=== PATIENT | male | born 1950 | race Caucasian/White ===

== ENCOUNTER → 2017-07-01 17:20 | Outpatient (CLI) | payer MEDICARE, OTHER, SELFPAY ==
--- NOTE | 2017-07-01 15:45 | BLA_PTH ---
PATIENT: VENKATA LEAL LOC: [facility] U#:[id number] AGE/SX: 74/M ROOM: RE07/01/[address]: Dr. Danny Olson MD : 1950 BED: DIS: SPEC #: [id number] RECD: 07/01/17 17:21 STATUS: CORI TONEY #: [id number] LOLA: 07/01/17 15:[address]: Danny Olson DEPT: SURGICAL PATHOLOGY RECD BY: Janelle Ocampo ENTERED: 07/02/17 08:55 SP TYPE: BLADDER BX OTHR DR: Dr. Nenita Yarbrough MD Tissues: Urinary bladder, NOS Procedures: Surgery Specimen Level IV HEADER OPERATION: Bladder biopsy PRE-OP DIAGNOSIS: C67.4, R31.0 TISSUE SUBMITTED: Bladder biopsy MICROSCOPIC DIAGNOSIS Bladder, biopsy: Papillary urothelial (transitional cell) carcinoma with the following characteristics: Histologic grade, urothelial carcinoma ([id number]/ISUP) ? low grade 1/3 Lamina propria invasion ? not identified Lymph-vascular invasion ? not identified Detrusor muscle invasion ? detrusor muscle is not present in the submitted specimen. BRITTNI:[email or web address] 07/03/17 COMMENT Please make reference to previous specimen ([id number]) bladder tumor, TUR with diagnosis of papillary urothelial carcinoma. MICROSCOPIC DESCRIPTION Slides are reviewed. GROSS DESCRIPTION Received is one container labeled with the patient's name and not further designated. The specimen consists of one irregular fragment of hagan soft tissue that measures 0.2 x 0.1 x 0.1 cm. The specimen is totally submitted in one cassette. / BRITTNI:[email or web address] 07/02/17 TC:0 CPT: 76240
== END ==
PROVIDERS: Family Provider Internal Medicine; PCP Internal Medicine; Visit Provider Urology
DX: C67.4 Malignant neoplasm of posterior wall of bladder (principal); R31.0 Gross hematuria
CPT/HCPCS: 88305

== ENCOUNTER 2018-05-06 07:41 | Day surgery (SDC) | payer MEDICARE, OTHER, SELFPAY ==
[2018-04-29 10:47] VITALS: BP 109/66; PULSE 85; RESP 16; TEMP 36.6; O2SAT 95; BMI 32.1
--- NOTE | 2018-05-05 16:05 | PCM.HP.BLA ---
History and Physical Date of Admission: 05/06/18 Patient returns, 68-year-old male history of bladder cancer status post resection and also had fulguration in the office and TURBT. Also has a history of BPH with obstruction currently taking Flomax and Proscar. Denies any gross hematuria. Does have frequent urination nocturia. Comes in today for a Cysto. ALLERGIES: Novacaine Statins MEDICATIONS: Flomax 0.4 mg capsule Proscar Amlodipine Besilate Bentyl Clopidogrel Creon Crestor Cymbalta Famotidine Furosemide Levothyroxine Sodium Lomotil Metoprolol Succinate Neurontin [place] Novolog Pentasa SPIROLOACTONE Vitamin B-12 Vitamin D3 [place] PSH: Cysto Fulgurate < .05 cm - 07/01/2017 Cystoscopy - 01/13/2018, 10/06/2017, 06/17/2017, 03/18/2017 Cystoscopy TURBT 2-5 cm - 11/20/2016 PSH Notes: Removal of the Colon to the Ileum ESOPHAGEAL BANDING NON- PSH: Appendectomy Colon Resection Colonoscopy Patient documented to have received pneumococcal vaccination Pneumococcal Vaccine Admin PTCA Tonsillectomy PMH: Malignant neoplasm of posterior wall of bladder (Stable) - 06/17/2017, - 12/09/2016 Gross hematuria - 10/28/2016 Benign prostatic hyperplasia with lower urinary tract symptoms Frequency of micturition Hematuria, unspecified Nocturia Poor urinary stream Retention of urine, unspecified Spermatocele of epididymis, unspecified NON- PMH: Essential (primary) hypertension Heart disease, unspecified Hyperlipidemia, unspecified Hypothyroidism, unspecified Incisional hernia without obstruction or gangrene Malignant carcinoid tumor of unspecified site Oth diabetes mellitus with diabetic neuropathy, unspecified Other irritable bowel syndrome Other specified sepsis Peripheral vascular disease, unspecified Spinal stenosis, site unspecified Type 2 diabetes mellitus without complications Vitamin B12 deficiency anemia, unspecified Vitamin D deficiency, unspecified Immunizations: None FAMILY HISTORY: Cancer - Runs in Family Diabetes - Runs in Family Heart Disease - Runs in Family SOCIAL HISTORY: Marital Status: Preferred Language: Amharic; Ethnicity: Not Or ; Race: White Current Smoking Status: Patient does not smoke anymore. Tobacco Use Assessment Completed: Used Smokeless in last 30 days? Smoking cessation counseling was provided. Does not use smokeless tobacco. Has never drank. Does not use drugs. Drinks 3 caffeinated drinks per day. Has not had a blood transfusion. REVIEW OF SYSTEMS: Constitutional: Patient denies fever, chills, weight loss, and weight gain. Genitourinary: Patient denies frequent urination, urinary retention, get up at night to void, leakage of urine, painful urination, blood in the urine, frequent uti's, history of stones, difficulty starting stream, weak stream/scanty, and bedwetting. VITAL SIGNS: 04/13/2018 11:18 AM Weight 220 lb / 99.79 kg Height 70 in / 177.8 cm BP 138/70 mmHg BMI 31.6 kg/m? - BMI Counseling was provided. PHYSICAL EXAMINATION: Testes: No tenderness, no swelling, no enlargement left testes. No tenderness, no swelling, no enlargement right testes. Normal location left testes. Normal location right testes. No mass, no cyst, no varicocele, no hydrocele left testes. No mass, no cyst, no varicocele, no hydrocele right testes. Urethral Meatus: Normal size. No lesion, no wart, no discharge, no polyp. Normal location. Penis: Circumcised, no warts, no cracks. No dorsal Peyronie's plaques, no left corporal Peyronie's plaques, no right corporal Peyronie's plaques, no scarring, no warts. No balanitis, no meatal stenosis. MULTI-SYSTEM PHYSICAL EXAMINATION: Constitutional: Well-nourished. No physical deformities. Normally developed. Good grooming. Neck: Neck symmetrical, not swollen. Normal tracheal position. Respiratory: No labored breathing, no use of accessory muscles. Cardiovascular: Normal temperature, normal extremity pulses, no swelling, no varicosities. Lymphatic: No enlargement of neck, axillae, groin. Skin: No paleness, no jaundice, no cyanosis. No lesion, no ulcer, no rash. Neurologic / Psychiatric: Oriented to time, oriented to place, oriented to person. No depression, no anxiety, no agitation. Gastrointestinal: No mass, no tenderness, no rigidity, non obese abdomen. Eyes: Normal conjunctivae. Normal eyelids. Ears, Nose, Mouth, and Throat: Left ear no scars, no lesions, no masses. Right ear no scars, no lesions, no masses. Nose no scars, no lesions, no masses. Normal hearing. Normal lips. Musculoskeletal: Normal gait and station of head and neck. PAST DATA REVIEWED: Source Of History: Patient Records Review: Previous Patient Records Urine Test Review: Urinalysis 10/04/14 04/01/11 06/02/09 PSA Total PSA 1.21 1.47 1.9 PROCEDURES: Flexible Cystoscopy - 51381 Risks, benefits, and some of the potential complications of the procedure were discussed at length with the patient including infection, bleeding, voiding discomfort, urinary retention, fever, chills, sepsis, and others. All questions were answered. Informed consent was obtained. Antibiotic prophylaxis was given. Sterile technique and intraurethral analgesia were used. Meatus: Normal size. Normal location. Normal condition. Urethra: No strictures. External Sphincter: Normal. Verumontanum: Normal. Prostate: Borderline obstructing. Moderate hyperplasia. Bladder Neck: Non-obstructing. Ureteral Orifices: Normal location. Normal size. Normal shape. Effluxed clear urine. Bladder: A few posterior wall tumors. Multifocal tumors. No trabeculation. Normal mucosa. No stones. Urinalysis - 23029 Dipstick Dipstick Cont'd Specimen: Voided Blood: Neg Appearance: Clear pH: 5.0 Color: Yellow Protein: Neg Glucose: Normal Urobilinogen: Neg Bilirubin: Neg Nitrites: Neg Ketones: Neg Leukocyte Esterase: Neg ASSESSMENT: ICD-10 Details 1 : Malignant neoplasm of posterior wall of bladder - C67.4 Stable PLAN: Document Letter(s): Created for Patient: Clinical Summary Notes: Has recurrence of bladder tumors plan to proceed with TURBT and mitomycin C at [facility].
[2018-05-06] VITALS (7 sets, daily range): BP systolic 95–116; BP diastolic 63–85; PULSE 60–66; RESP 16–18; TEMP 36.1–36.9; O2SAT 88–99; BMI 32.1
[2018-05-06 08:19] LABS: Potassium 3.9 mmol/L (3.5-5.1)
[2018-05-06 08:21] LABS: Bedside Glucose 150 mg/dL (70-110)
[2018-05-06] MEDS: Cefazolin 2 GM in 0.9% Normal Saline 100 ML IV (09:39)
--- NOTE | 2018-05-06 09:48 | DCINST_ITS ---
Discharge Diet: Light diet - advance as tolerated Discharge Activity: Return to Normal Activity Call your doctor if your incision/area has: Sudden Increased Bleeding Call your doctor if you observe: Fever of 101 or Higher, Uncontrolled pain Suture Line Care: Avoid Pulling/Pushing, Avoid Pinching/Bending Instructions: Treating Bladder Cancer: TUR (Transurethral Resection) Allergies/Adverse Reactions: Allergies procaine HCl [From Novocain] Allergy (Verified 04/29/18 10:16) Other Ktrqgsn-Eij-Wyt Reductase Inhibitor Allergy (Verified 04/29/18 10:16) Other Medications to take at Discharge Amlodipine [Norvasc] 5 mg PO DAILY 08/22/16 Dicyclomine HCl [Bentyl] 10 mg PO ACHS 08/22/16 Diphenoxylate HCl/Atropine [Lomotil 2.5-0.025 mg Tablet] 1 each PO Q6H PRN 08/22/16 Duloxetine HCl 20 mg PO QHS 08/22/16 Finasteride [Proscar] 5 mg PO DAILY 08/22/16 Furosemide [Lasix] 60 mg PO DAILY 08/22/16 Gabapentin [Neurontin] 600 mg PO QHS 08/22/16 Insulin Aspart Protam & Aspart [Novolog Mix 70-30 Vial] 25 unit SQ DINNER 08/22/16 Levothyroxine [Synthroid] 137 mcg PO DAILY 08/22/16 Lipase/Protease/Amylase [Creon Dr 24,000 Units Capsule] 3 cap PO TIDCM 08/22/16 Mesalamine [Pentasa] 1,000 mg PO 4X/DAY 08/22/16 Metoprolol Tartrate [Lopressor] 50 mg PO BID 08/22/16 Tamsulosin HCl [Flomax] 0.4 mg PO BID 08/22/16 Cholecalciferol (Vitamin D3) [Vitamin D] 50,000 unit PO TUTH 10/25/16 Clopidogrel Bisulfate [Clopidogrel] 75 mg PO DAILY 10/25/16 Colesevelam Hydrochloride [Welchol] 1,875 mg PO DAILY 10/25/16 Cyanocobalamin (Vitamin B-12) [B-12] 1,000 mcg SL DAILY 10/25/16 Rosuvastatin Calcium [Crestor] 5 mg PO TUTH 10/25/16 Cyanocobalamin [Vitamin B12] 100 mcg IM Q30D 11/19/16 Octreotide Acetate,Mi-Spheres [Sandostatin [place]] 10 mg IM QMONTH 11/19/16 Insulin Aspart Protam & Aspart [Novolog Mix 70-30 Vial] 35 unit SQ BREAKFAST 04/29/18 Melatonin 10 mg SL QHS 04/29/18 Oxycodone [Oxyir] 5 mg PO BID PRN 04/29/18 Pantoprazole Sodium [Protonix] 20 mg PO DAILY 04/29/18 Sertraline HCl [Zoloft] 50 mg PO DAILY 04/29/18 Spironolactone [Aldactone] 25 mg PO BID 04/29/18 Acetaminophen [Tylenol Extra Strength] 500 mg PO Q4H PRN PRN #20 tablet 05/06/18 Ciprofloxacin [Cipro] 500 mg PO BID #6 tablet 05/06/18 Phenazopyridine HCl [Pyridium] 100 mg PO TID PRN PRN #14 tablet 05/06/18 The following prescriptions were given: Acetaminophen [Tylenol Extra Strength] 500 mg PO Q4H PRN PRN #20 tablet PRN Reason: Pain Phenazopyridine HCl [Pyridium] 100 mg PO TID PRN PRN #14 tablet PRN Reason: bladder pain Ciprofloxacin [Cipro] 500 mg PO BID #6 tablet Orders to be completed after discharge: Thyroid Stim Hormone (TSH) Time Frame: 04/30/18, Location: Laboratory Primary Care Physician: Analisa Nogueira MD [Primary Care Provider] - Test Results: Test results from this visit will be discussed in further detail at your follow- up appointment, if applicable. Please Follow Up With: Danny Olson MD When: in 2 weeks, please call to make an appointment.
--- NOTE | 2018-05-06 10:20 | OP.PCM_ITS ---
Report of Operation Date of Procedure: 05/06/18 Pre-Operative Diagnosis: Multiple papillary bladder tumors throughout the right side of the right bladder the posterior bladder the left side of the bladder some in the trigone Post-Operative Diagnosis: Same Surgery/Procedure Performed:: Transurethral resection of multiple bladder tumors throughout the bladder large resection. Description of Surgical Findings:: 68-year-old male has a history of recurrent bladder cancer comes back to the office did a cystoscopy had multiple tumors throughout the bladder these were official superficial tumor not deep tumors but they were in the right lateral wall posterior wall and left lateral wall the bladder some towards the trigone. 68-year-old male taken back to the operating room after smooth induction of general anesthesia he was placed in dorsolithotomy position when of the bladder with a 24 [place] noncontinuous flow Olympus resectoscope identified all the tumors as mentioned above in the note and then I proceeded with cauterization and resection of all these tumors take about 30 minutes to resect all the tumor urine to cauterize it completely I then switched over to a 70 degree lens that is cystoscopy a 70 degree lens look to the entire bladder could not see any more visible tumors after cauterization was completed then I placed the catheter in the bladder drained the bladder the urine was clear and then I placed 40 cc of 40 mg of mitomycin-C into the bladder for post chemo dose instillation. Patient anesthetic was reversed to take back to PACU good condition. Type of Anesthesia:: General Drains: none - Admit VTE Documentation VTE Present on Admission: No VTE Mechan Device Prophylaxis: SCD's
[2018-05-06 10:51] LABS: Bedside Glucose 149 mg/dL (70-110)
== END 2018-05-06 12:13 | disposition home or self-care (01) ==
LOC: SDC 07:42 → AC 07:42
PROVIDERS: Family Provider Internal Medicine; PCP Internal Medicine; Referring Provider Urology; Visit Provider Urology
PROC: 0TBB8ZZ Excision of Bladder, Via Natural or Artificial Opening Endoscopic (ICD-10-PCS; CPT 52240; principal; 2018-05-06 09:40)
DX: C67.4 Malignant neoplasm of posterior wall of bladder (principal); N40.1 Benign prostatic hyperplasia with lower urinary tract symptoms; N13.8 Other obstructive and reflux uropathy; E78.5 Hyperlipidemia, unspecified; E03.9 Hypothyroidism, unspecified; E13.40 Other specified diabetes mellitus with diabetic neuropathy, unspecified; I73.9 Peripheral vascular disease, unspecified; K58.8 Other irritable bowel syndrome; E53.8 Deficiency of other specified B group vitamins; E55.9 Vitamin D deficiency, unspecified; K21.9 Gastro-esophageal reflux disease without esophagitis; D64.9 Anemia, unspecified; I13.10 Hypertensive heart and chronic kidney disease without heart failure, with stage 1 through stage 4 chronic kidney disease, or unspecified chronic kidney disease; E13.22 Other specified diabetes mellitus with diabetic chronic kidney disease; N18.3 Chronic kidney disease, stage 3 (moderate); F32.9 Major depressive disorder, single episode, unspecified; G47.33 Obstructive sleep apnea (adult) (pediatric); Z95.5 Presence of coronary angioplasty implant and graft; Z87.891 Personal history of nicotine dependence; Z79.4 Long term (current) use of insulin; Z79.899 Other long term (current) drug therapy
CPT/HCPCS: 52240; 52287; 36415; 82962; 84132; J7120; J2405; J3490; J9280

== ENCOUNTER → 2018-07-17 | Outpatient (CLI) | payer MEDICARE, OTHER, SELFPAY ==
[2018-05-06 08:04] VITALS: BMI 32.1
== END | disposition home or self-care (01) ==
LOC: SL 20:23
PROVIDERS: Family Provider Internal Medicine; PCP Internal Medicine
DX: G47.31 Primary central sleep apnea (principal); G47.33 Obstructive sleep apnea (adult) (pediatric); G47.34 Idiopathic sleep related nonobstructive alveolar hypoventilation
CPT/HCPCS: 95811

== ENCOUNTER → 2018-09-03 | Outpatient (CLI) | payer MEDICARE, OTHER, SELFPAY ==
[2018-05-06 08:04] VITALS: BMI 32.1
--- NOTE | 2018-09-03 | CYSPIN_PTH ---
PATIENT: VENKATA LEAL LOC: [facility] U#:[id number] AGE/SX: 68/M ROOM: RE09/03/[address]: Dr. Danny Olson MD : 1950 BED: DIS: 09/03/2018 SPEC #: [id number] RECD: 09/04/18 07:57 STATUS: CORI RESteve #: [id number] LOLA: 09/03/18 00:[address]: Danny Olson DEPT: CYTOLOGY RECD BY: Bakari Marcos ENTERED: 09/04/18 07:57 SP TYPE: CYSPIN FL OTHR DR: Dr. Analisa Nogueira MD Tissues: Urine Procedures: Pap Stain (control) Special Stain Group II Cytospin Fluid HEADER OPERATION: Not noted PRE-OP DIAGNOSIS: Bladder CA TISSUE SUBMITTED: Urine for cytology DIAGNOSIS CYTOLOGY Urine for cytology (cytospin): Rare atypical urothelial cells present. See comment. AM:[email or web address] 09/04/18 COMMENT The findings are nonspecific and could represent a variety of conditions including infection, urolithiasis, instrumentation and low grade urothelial neoplasm. Clinical correlation is necessary. Case has been reviewed in consultation with Dr. Webster who concurs with the above diagnosis. IDC:SJ CYTOLOGY STUDY Slides are reviewed. CYTOLOGY GROSS Received is 60 ml of yellow cloudy fluid labeled with the patient's name and and designated per the requisition as urine. Submitted for cytology preparation. 09/03/18 TC:? CPT: 59371
[2018-09-03 17:35] LABS: Cytology, Body Fluid / CSF SEE PATHOLOGY REPORT
== END | disposition home or self-care (01) ==
LOC: LABSPEC 17:19
PROVIDERS: Family Provider Internal Medicine; PCP Internal Medicine; Referring Provider Urology; Visit Provider Urology
DX: C67.9 Malignant neoplasm of bladder, unspecified (principal)
CPT/HCPCS: 88108; 88313

== ENCOUNTER 2018-12-11 16:02 | Outpatient (RCR) | payer MEDICARE, OTHER, SELFPAY ==
[2018-05-06 08:04] VITALS: BMI 32.1
[2018-12-11 16:22] LABS: Hematocrit 32.3 % (40-54); Hemoglobin 10.7 g/dL (13.0-16.5); Mean Corp Hgb Conc 33.1 g/dL (32-36); Mean Corpuscular Hgb 32.3 pg (27.0-32.0); Mean Corpuscular Volume 97.6 fL (80-94); Mean Platelet Vol. 12.1 fl (6.2-12.0); Platelet Count 181 K/mm3 (150-450); RBC Distribution Width CV 14.9 % (11.6-14.6); RBC Distribution Width SD 53.4 fl (35.1-43.9); Red Blood Count 3.31 M/mm3 (4.6-6.2); White Blood Count 5.3 K/mm3 (4.4-11.0)
[2018-12-11 16:44] LABS: Anion Gap 6 (5-15); BUN 35 mg/dL (7-18); Calcium,Total 9.6 mg/dL (8.5-10.1); Chloride 101 mmol/L (98-107); Creatinine, Serum 3.17 mg/dL (0.70-1.30); EST Glomerular Filtration Rate 21 mL/min (>60); Est Glom Filt Rate - Afr Amer 25 mL/min (>60); Glucose 170 mg/dL (74-106); Potassium 5.2 mmol/L (3.5-5.1); Sodium Level 135 mmol/L (136-145)
== END 2018-12-17 23:59 ==
LOC: HHLAB 16:02
PROVIDERS: Family Provider Internal Medicine; PCP Internal Medicine; Referring Provider Internal Medicine; Visit Provider Internal Medicine
DX: E11.9 Type 2 diabetes mellitus without complications (principal); K50.90 Crohn's disease, unspecified, without complications
CPT/HCPCS: 80048; 85027

== ENCOUNTER → 2019-03-04 20:08 | Outpatient (CLI) | payer MEDICARE, OTHER, SELFPAY ==
[2018-05-06 08:04] VITALS: BMI 32.1
== END ==
PROVIDERS: Family Provider Internal Medicine; PCP Internal Medicine
DX: G47.31 Primary central sleep apnea (principal); G47.33 Obstructive sleep apnea (adult) (pediatric); G47.34 Idiopathic sleep related nonobstructive alveolar hypoventilation
CPT/HCPCS: 95811

== ENCOUNTER → 2019-08-03 15:15 | Outpatient (CLI) | payer MEDICARE, OTHER, SELFPAY ==
[2018-05-06 08:04] VITALS: BMI 32.1
--- NOTE | 2019-08-03 15:15 | CYSPIN_PTH ---
PATIENT: VENKATA LEAL LOC: [facility] U#:[id number] AGE/SX: 74/M ROOM: RE08/03/[address]: Dr. Danny Olson MD : 1950 BED: DIS: SPEC #: [id number] RECD: 08/04/19 08:58 STATUS: CORI RESteve #: [id number] LOLA: 08/03/19 15:[address]: Danny Olson DEPT: CYTOLOGY RECD BY: Hugh Carreon ENTERED: 08/04/19 08:58 SP TYPE: CYSPIN FL OTHR DR: Dr. Analisa Nogueira MD Tissues: Urine Procedures: Pap Stain (control) Special Stain Group II Cytospin Fluid HEADER OPERATION: Not noted PRE-OP DIAGNOSIS: Malignant neoplasm of posterior wall of bladder TISSUE SUBMITTED: Urine for cytology DIAGNOSIS CYTOLOGY Urine for cytology (cytospin): Rare atypical urothelial cells noted. SJ:[email or web address] 08/05/19 COMMENT Please make reference to previous specimens ([id number]) bladder tumor, TUR with diagnosis of papillary urothelial carcinoma and ([id number]) bladder, biopsy with diagnosis of papillary urothelial carcinoma and ([id number]) urine for cytology with diagnosis of rare atypical urothelial cells present. CYTOLOGY STUDY Slides are reviewed. CYTOLOGY GROSS Received is 80 ml of gold cloudy fluid labeled with the patient's name and and designated per the requisition as urine. Submitted for cytology preparation. / magdiel 08/04/19 TC: CPT: 58057
[2019-08-03 17:12] LABS: Cytology, Body Fluid / CSF SEE PATHOLOGY REPORT
--- OUTSIDE RECORDS SUMMARY | 2019-12-05 14:57 | XMS RPT_ITS | CCD ---
:1950 External Reference #:[id number] Author Organization [facility] Care Team Providers Name Role Phone Mirlande Primary Care Provider Loyd Olson Unavailable Vekstein Unavailable LAURENT, E Unavailable Unavailable LAURENT, E Unavailable Unavailable LAURENT, E Unavailable Unavailable TALAMPAS, D Unavailable Unavailable HENLEY Unavailable Unavailable LAURENT Unavailable Unavailable LAURENT Unavailable Unavailable TALAMPAS Unavailable Unavailable LAURENT Unavailable Unavailable TALAMPAS Unavailable Unavailable TALAMPAS Unavailable Unavailable LAURENT Unavailable Unavailable LAURENT Unavailable Unavailable TALAMPAS Unavailable Unavailable Allergies Reported Allergen Reaction(s) Severity Date of Onset Location atorvastatin Intolerance High, Unknown 01-31-2005 - [facility] Translations: [ Center (0000 0) ATORVASTATIN CALCIUM, ATORVASTATIN CALCIUM] fluvastatin Intolerance 09-09-2007 - [facility] Translations: [ Center (0000 0) FLUVASTATIN SODIUM, FLUVASTATIN SODIUM] novacain [Other] Intolerance Moderate 01-31-2005 - [facility] linic ([id number]) Simvastatin Intolerance High, Unknown 01-31-2005 - [facility] Translations: [ Center (0000 0) SIMVASTATIN, SIMVASTATIN] OTHER Translations: [ AOF Unknown 01-31-2005 - [facility] OTHER, OTHER] Other [facility] Medications Medication Name Sig Date Prescriber Location Acetaminophen acetaminophen 11-30-2018 Natasha Crandall) [facility] (TYLENOL) 325 mg (90466) tablet Take 2 tablets by mouth every 6 hours as needed for Pain. 0 11/30/2018 Active Comment: Take 2 tablets by mouth ever y 6 hours as needed for Pain. amLODIPine amLODIPine (NORVASC) 5 mg 05-21-2019 Analisa Weeks [facility] tablet Indications: (33317) Essential hypertension Take 1 tablet by mouth once daily. 90 tablet 3 05/21/2019 Active Comment: Take 1 tablet by mouth once daily. Amylases / hvghth-vtpfpzrt-dkhufid 03-26-2019 Serafin mares Endopeptidases / (CREON 24) 24,000-76,000 [facility] ([id number]) Lipase -120,000 unit cpDR Take 2 capsules by mouth twice daily with meals. 360 capsule 3 03/26/2019 Active Comment: Take 2 capsules by mouth twi ce daily with meals. Atropine / diphenoxylate-atropine 10-18-2019 - [facility] Diphenoxylate (LOMOTIL) 2.5-0.025 mg per 01-23-2020 [facility] (25963) tablet Indications: Crohn's disease of small intestine with intestinal obstruction (HCC) Take 1-2 tablets before meals and at bedtime as needed for diarrhea not to exceed 8 tablets daily 240 tablet 1 10/18/2019 01/23/2020 Active diphenoxylate-atropine (LOMOTIL) 06-24-2019 Natasha chang ([place]) [facility] 2.5-0.025 mg per tablet (89141) Indications: Crohn's disease of small intestine with intestinal obstruction (HCC) Take 1-2 tablets before meals and at bedtime as needed for diarrhea not to exceed 8 tablets daily 240 tablet 1 06/24/2019 Active Comment: Take 1-2 tablets before meal s and at bedtime as needed for diarrhea not to exceed 8 tablets daily BIPAP BIPAP OK to discontinue 11-17-2019 Sadaf ([facility]) [facility] Overnight oxygen. PAP [place] ([id number] ) titration and overnight pulse oximetry do not show need for nocturnal oxygen at this time. 1 Device 0 11/17/2019 Active BIPAP OK to discontinue 11-17-2019 Sadaf ([facility]) [facility] Overnight oxygen. PAP [place] ([id number]) titration and overnight pulse oximetry do not show need for nocturnal oxygen at this time. 1 Device 0 11/17/2019 Active BIPAP OK to discontinue 11-17-2019 Sadaf ([facility]) [facility] Overnight oxygen. PAP [place] ([id number]) titration and overnight pulse oximetry do not show need for nocturnal oxygen at this time. 1 Device 0 11/17/2019 Active BIPAP OK to discontinue 11-17-2019 Sadaf ([employer]) [facility] Overnight oxygen. PAP [place] ([id number]) titration and overnight pulse oximetry do not show need for nocturnal oxygen at this time. 1 Device 0 11/17/2019 Active BIPAP OK to discontinue 11-17-2019 Sadaf ([employer]) [facility] Overnight oxygen. PAP [place] ([id number]) titration and overnight pulse oximetry do not show need for nocturnal oxygen at this time. 1 Device 0 11/17/2019 Active BIPAP OK to discontinue 11-17-2019 Sadaf ([employer]) [facility] Overnight oxygen. PAP [place] ([id number]) titration and overnight pulse oximetry do not show need for nocturnal oxygen at this time. 1 Device 0 11/17/2019 Active BIPAP OK to discontinue 11-02-2019 - Sadaf ([employer]) [facility] Overnight oxygen. PAP 11-17-2019 [place] ([id number]) titration and overnight pulse oximetry do not show need for nocturnal oxygen at this time. 1 Device 0 11/02/2019 11/17/2019 Discontinued BIPAP OK to discontinue 11-02-2019 [facility] ([employer]) [facility] Overnight oxygen. PAP [place] ([id number]) titration and overnight pulse oximetry do not show need for nocturnal oxygen at this time. 1 Device 0 11/02/2019 Active BIPAP OK to discontinue 11-02-2019 Sadaf ([employer]) [facility] Overnight oxygen. PAP [place] ([id number]) titration and overnight pulse oximetry do not show need for nocturnal oxygen at this time. 1 Device 0 11/02/2019 Active BIPAP OK to discontinue 11-02-2019 Sad[facility] ([employer]) [facility] Overnight oxygen. PAP [place] ([id number]) titration and overnight pulse oximetry do not show need for nocturnal oxygen at this time. 1 Device 0 11/02/2019 Active BIPAP OK to discontinue 11-02-2019 Sad[facility] ([employer]) [facility] Overnight oxygen. PAP [place] ([id number]) titration and overnight pulse oximetry do not show need for nocturnal oxygen at this time. 1 Device 0 11/02/2019 Active BIPAP Indications: ALEXIS 10-12-2019 Sadaf ([employer]) [facility] (obstructive sleep apnea) [place] ([id number] ) , Nocturnal oxygen desaturation Please dispense an overnight pulse oximetry to be done 2 consecutive nights while on BiPAP without oxygen. 1 Device 0 10/12/2019 Active BIPAP Indications: ALEXIS 10-12-2019 Sadaf ([employer]) [facility] (obstructive sleep apnea) [place] ([id number] ) , Nocturnal oxygen desaturation Please dispense an overnight pulse oximetry to be done 2 consecutive nights while on BiPAP without oxygen. 1 Device 0 10/12/2019 Active BIPAP Indications: ALEXIS 10-12-2019 Sad[facility] ([employer]) [facility] (obstructive sleep apnea) [place] ([id number] ) , Nocturnal oxygen desaturation Please dispense an overnight pulse oximetry to be done 2 consecutive nights while on BiPAP without oxygen. 1 Device 0 10/12/2019 Active BIPAP Indications: ALEXIS 10-12-2019 Sadaf ([employer]) [facility] (obstructive sleep apnea) [place] ([id number] ) , Nocturnal oxygen desaturation Please dispense an overnight pulse oximetry to be done 2 consecutive nights while on BiPAP without oxygen. 1 Device 0 10/12/2019 Active BIPAP Indications: ALEXIS 10-12-2019 Sadaf ([employer]) [facility] (obstructive sleep apnea) [place] ([id number] ) , Nocturnal oxygen desaturation Please dispense an overnight pulse oximetry to be done 2 consecutive nights while on BiPAP without oxygen. 1 Device 0 10/12/2019 Active BIPAP Indications: ALEXIS 10-12-2019 Sadaf ([employer]) [facility] (obstructive sleep apnea) [place] ([id number] ) , Nocturnal oxygen desaturation Please dispense an overnight pulse oximetry to be done 2 consecutive nights while on BiPAP without oxygen. 1 Device 0 10/12/2019 Active BIPAP Indications: ALEXIS 10-12-2019 Sadaf ([employer]) [facility] (obstructive sleep apnea) [place] ([id number] ) , Nocturnal oxygen desaturation Please dispense an overnight pulse oximetry to be done 2 consecutive nights while on BiPAP without oxygen. 1 Device 0 10/12/2019 Active BIPAP Indications: ALEXIS 10-12-2019 Sadaf ([employer]) [facility] (obstructive sleep apnea) [place] ([id number] ) , Nocturnal oxygen desaturation Please dispense an overnight pulse oximetry to be done 2 consecutive nights while on BiPAP without oxygen. 1 Device 0 10/12/2019 Active BIPAP Indications: ALEXIS 10-12-2019 [facility] ([facility]) [facility] (obstructive sleep apnea) [place] ([id number] ) , Nocturnal oxygen desaturation Please dispense an overnight pulse oximetry to be done 2 consecutive nights while on BiPAP without oxygen. 1 Device 0 10/12/2019 Active BIPAP Settings Increase 09-07-2019 [facility] ([facility]) [facility] IPAP 21, EPAP 16, and BUR [place] ([id number] ) 10 cm H2O, suitable mask per pt preference, chin strap, head gear, humidity, tubing, lifetime supplies. G47.33 ALEXIS 1 Device 0 09/07/2019 Active BIPAP Settings Increase 09-07-2019 [facility] ([facility]) [facility] IPAP 21, EPAP 16, and BUR [place] ([id number] ) 10 cm H2O, suitable mask per pt preference, chin strap, head gear, humidity, tubing, lifetime supplies. G47.33 ALEXIS 1 Device 0 09/07/2019 Active BIPAP Settings Increase 09-07-2019 [facility] ([facility]) [facility] IPAP 21, EPAP 16, and BUR [place] ([id number] ) 10 cm H2O, suitable mask per pt preference, chin strap, head gear, humidity, tubing, lifetime supplies. G47.33 ALEXIS 1 Device 0 09/07/2019 Active BIPAP Settings Increase 09-07-2019 Sad[facility] ([facility]) [facility] IPAP 21, EPAP 16, and BUR [place] ([id number] ) 10 cm H2O, suitable mask per pt preference, chin strap, head gear, humidity, tubing, lifetime supplies. G47.33 ALEXIS 1 Device 0 09/07/2019 Active BIPAP Settings Increase 09-07-2019 Sadaf ([facility]) [facility] IPAP 21, EPAP 16, and BUR [place] ([id number] ) 10 cm H2O, suitable mask per pt preference, chin strap, head gear, humidity, tubing, lifetime supplies. G47.33 ALEXIS 1 Device 0 09/07/2019 Active BIPAP Settings Increase 09-07-2019 [facility] ([facility]) [facility] IPAP 21, EPAP 16, and BUR [place] ([id number] ) 10 cm H2O, suitable mask per pt preference, chin strap, head gear, humidity, tubing, lifetime supplies. G47.33 ALEXIS 1 Device 0 09/07/2019 Active BIPAP Settings Increase 09-07-2019 Sad[facility] ([employer]) [facility] IPAP 21, EPAP 16, and BUR [place] ([id number] ) 10 cm H2O, suitable mask per pt preference, chin strap, head gear, humidity, tubing, lifetime supplies. G47.33 ALEXIS 1 Device 0 09/07/2019 Active BIPAP Settings Increase 09-07-2019 Sad[facility] ([employer]) [facility] IPAP 21, EPAP 16, and BUR [place] ([id number] ) 10 cm H2O, suitable mask per pt preference, chin strap, head gear, humidity, tubing, lifetime supplies. G47.33 ALEXIS 1 Device 0 09/07/2019 Active BIPAP Settings Increase 09-07-2019 [facility] ([employer]) [facility] IPAP 21, EPAP 16, and BUR [place] ([id number] ) 10 cm H2O, suitable mask per pt preference, chin strap, head gear, humidity, tubing, lifetime supplies. G47.33 ALEXIS 1 Device 0 09/07/2019 Active BIPAP Settings Increase 09-07-2019 [facility] ([employer]) [facility] IPAP 21, EPAP 16, and BUR [place] ([id number] ) 10 cm H2O, suitable mask per pt preference, chin strap, head gear, humidity, tubing, lifetime supplies. G47.33 ALEXIS 1 Device 0 09/07/2019 Active BIPAP Settings Increase 09-07-2019 [facility] ([employer]) [facility] IPAP 21, EPAP 16, and BUR [place] ([id number] ) 10 cm H2O, suitable mask per pt preference, chin strap, head gear, humidity, tubing, lifetime supplies. G47.33 ALEXIS 1 Device 0 09/07/2019 Active BIPAP Settings Increase 09-07-2019 [facility] ([employer]) [facility] IPAP 21, EPAP 16, and BUR [place] ([id number] ) 10 cm H2O, suitable mask per pt preference, chin strap, head gear, humidity, tubing, lifetime supplies. G47.33 ALEXIS 1 Device 0 09/07/2019 Active BIPAP Settings Increase 09-07-2019 [facility] ([employer]) [facility] IPAP 21, EPAP 16, and BUR [place] ([id number] ) 10 cm H2O, suitable mask per pt preference, chin strap, head gear, humidity, tubing, lifetime supplies. G47.33 ALEXIS 1 Device 0 09/07/2019 Active BIPAP Settings Increase 09-07-2019 [facility] ([employer]) [facility] IPAP 21, EPAP 16, and BUR [place] ([id number] ) 10 cm H2O, suitable mask per pt preference, chin strap, head gear, humidity, tubing, lifetime supplies. G47.33 ALEXIS 1 Device 0 09/07/2019 Active BIPAP Settings Increase 09-07-2019 [facility] ([employer]) [facility] IPAP 21, EPAP 16, and BUR [place] ([id number] ) 10 cm H2O, suitable mask per pt preference, chin strap, head gear, humidity, tubing, lifetime supplies. G47.33 ALEXIS 1 Device 0 09/07/2019 Active BIPAP Settings Increase 09-07-2019 [facility] ([employer]) [facility] IPAP 21, EPAP 16, and BUR [place] ([id number] ) 10 cm H2O, suitable mask per pt preference, chin strap, head gear, humidity, tubing, lifetime supplies. G47.33 ALEXIS 1 Device 0 09/07/2019 Active BIPAP Settings Increase 09-07-2019 [facility] ([employer]) [facility] IPAP 21, EPAP 16, and BUR [place] ([id number] ) 10 cm H2O, suitable mask per pt preference, chin strap, head gear, humidity, tubing, lifetime supplies. G47.33 ALEXIS 1 Device 0 09/07/2019 Active BIPAP Settings Increase 09-07-2019 Sadaf ([employer]) [facility] IPAP 21, EPAP 16, and BUR [place] ([id number] ) 10 cm H2O, suitable mask per pt preference, chin strap, head gear, humidity, tubing, lifetime supplies. G47.33 ALEXIS 1 Device 0 09/07/2019 Active BIPAP Settings Increase 09-07-2019 Sadaf ([employer]) [facility] IPAP 21, EPAP 16, and BUR [place] ([id number] ) 10 cm H2O, suitable mask per pt preference, chin strap, head gear, humidity, tubing, lifetime supplies. G47.33 ALEXIS 1 Device 0 09/07/2019 Active BIPAP Settings Increase 09-07-2019 [facility] ([facility]) [facility] IPAP 21, EPAP 16, and BUR [place] ([id number] ) 10 cm H2O, suitable mask per pt preference, chin strap, head gear, humidity, tubing, lifetime supplies. G47.33 ALEXIS 1 Device 0 09/07/2019 Active BIPAP Settings Increase 09-07-2019 [facility] ([facility]) [facility] IPAP 21, EPAP 16, and BUR [place] ([id number] ) 10 cm H2O, suitable mask per pt preference, chin strap, head gear, humidity, tubing, lifetime supplies. G47.33 ALEXIS 1 Device 0 09/07/2019 Active BIPAP Settings Increase 09-07-2019 [facility] ([facility]) [facility] IPAP 21, EPAP 16, and BUR [place] ([id number] ) 10 cm H2O, suitable mask per pt preference, chin strap, head gear, humidity, tubing, lifetime supplies. G47.33 ALEXIS 1 Device 0 09/07/2019 Active BIPAP Settings Increase 09-07-2019 [facility] ([facility]) [facility] IPAP 21, EPAP 16, and BUR [place] ([id number] ) 10 cm H2O, suitable mask per pt preference, chin strap, head gear, humidity, tubing, lifetime supplies. G47.33 ALEXIS 1 Device 0 09/07/2019 Active BIPAP Indications: CSA 07-20-2019 [facility] ([facility]) [facility] (central sleep apnea) , [place] ([id number]) ALEXIS (obstructive sleep apnea) , Nocturnal oxygen desaturation Change settings: Bilevel PAP 20/15 cmH2O with humidification and back up rate 10 with 2 L bled in HS. 1 Device 11 07/20/2019 Active BIPAP Indications: CSA 07-20-2019 Sadaf ([facility]) [facility] (central sleep apnea) , [place] ([id number]) [facility] (obstructive sleep apnea) , Nocturnal oxygen desaturation Change settings: Bilevel PAP 20/15 cmH2O with humidification and back up rate 10 with 2 L bled in HS. 1 Device 11 07/20/2019 Active BIPAP Indications: CSA 07-20-2019 Sadaf ([employer]) [facility] (central sleep apnea) , [place] ([id number]) A[place] (obstructive sleep apnea) , Nocturnal oxygen desaturation Change settings: Bilevel PAP 20/15 cmH2O with humidification and back up rate 10 with 2 L bled in HS. 1 Device 11 07/20/2019 Active BIPAP Indications: CSA 07-20-2019 Sadaf ([employer]) [facility] (central sleep apnea) , [place] ([id number]) A[facility]IS (obstructive sleep apnea) , Nocturnal oxygen desaturation Change settings: Bilevel PAP 20/15 cmH2O with humidification and back up rate 10 with 2 L bled in HS. 1 Device 11 07/20/2019 Active BIPAP Indications: CSA 07-20-2019 Sadaf ([employer]) [facility] (central sleep apnea) , [place] ([id number]) A[facility]IS (obstructive sleep apnea) , Nocturnal oxygen desaturation Change settings: Bilevel PAP 20/15 cmH2O with humidification and back up rate 10 with 2 L bled in HS. 1 Device 11 07/20/2019 Active BIPAP Indications: CSA 07-20-2019 Sda[facility] ([employer]) [facility] (central sleep apnea) , [place] ([id number]) [facility] (obstructive sleep apnea) , Nocturnal oxygen desaturation Change settings: Bilevel PAP 20/15 cmH2O with humidification and back up rate 10 with 2 L bled in HS. 1 Device 11 07/20/2019 Active BIPAP Indications: CSA 07-20-2019 Sadaf ([employer]) [facility] (central sleep apnea) , [place] ([id number]) [facility] (obstructive sleep apnea) , Nocturnal oxygen desaturation Change settings: Bilevel PAP 20/15 cmH2O with humidification and back up rate 10 with 2 L bled in HS. 1 Device 11 07/20/2019 Active BIPAP Indications: CSA 07-20-2019 Sadaf ([employer]) [facility] (central sleep apnea) , [place] ([id number]) [facility] (obstructive sleep apnea) , Nocturnal oxygen desaturation Change settings: Bilevel PAP 20/15 cmH2O with humidification and back up rate 10 with 2 L bled in HS. 1 Device 11 07/20/2019 Active BIPAP Indications: CSA 07-20-2019 Sadaf ([employer]) [facility] (central sleep apnea) , [place] ([id number]) [facility] (obstructive sleep apnea) , Nocturnal oxygen desaturation Change settings: Bilevel PAP 20/15 cmH2O with humidification and back up rate 10 with 2 L bled in HS. 1 Device 11 07/20/2019 Active BIPAP Indications: CSA 07-20-2019 Sadaf ([employer]) [facility] (central sleep apnea) , [place] ([id number]) [facility] (obstructive sleep apnea) , Nocturnal oxygen desaturation Change settings: Bilevel PAP 20/15 cmH2O with humidification and back up rate 10 with 2 L bled in HS. 1 Device 11 07/20/2019 Active BIPAP Indications: CSA 07-20-2019 Sadaf ([employer]) [facility] (central sleep apnea) , [place] ([id number]) [facility] (obstructive sleep apnea) , Nocturnal oxygen desaturation Change settings: Bilevel PAP 20/15 cmH2O with humidification and back up rate 10 with 2 L bled in HS. 1 Device 11 07/20/2019 Active BIPAP Indications: CSA 07-20-2019 Sadaf ([employer]) [facility] (central sleep apnea) , [place] ([id number]) [facility] (obstructive sleep apnea) , Nocturnal oxygen desaturation Change settings: Bilevel PAP 20/15 cmH2O with humidification and back up rate 10 with 2 L bled in HS. 1 Device 11 07/20/2019 Active BIPAP Indications: CSA 07-20-2019 Sadaf ([employer]) [facility] (central sleep apnea) , [place] ([id number]) [facility] (obstructive sleep apnea) , Nocturnal oxygen desaturation Change settings: Bilevel PAP 20/15 cmH2O with humidification and back up rate 10 with 2 L bled in HS. 1 Device 11 07/20/2019 Active BIPAP Indications: CSA 07-20-2019 [facility] ([employer]) [facility] (central sleep apnea) , [place] ([id number]) [facility] (obstructive sleep apnea) , Nocturnal oxygen desaturation Change settings: Bilevel PAP 20/15 cmH2O with humidification and back up rate 10 with 2 L bled in HS. 1 Device 11 07/20/2019 Active BIPAP Indications: CSA 07-20-2019 Sadaf ([employer]) [facility] (central sleep apnea) , [place] ([id number]) [facility] (obstructive sleep apnea) , Nocturnal oxygen desaturation Change settings: Bilevel PAP 20/15 cmH2O with humidification and back up rate 10 with 2 L bled in HS. 1 Device 11 07/20/2019 Active BIPAP Indications: CSA 07-20-2019 Sadaf ([facility]) [facility] (central sleep apnea) , [place] ([id number]) ALEXIS (obstructive sleep apnea) , Nocturnal oxygen desaturation Change settings: Bilevel PAP 20/15 cmH2O with humidification and back up rate 10 with 2 L bled in HS. 1 Device 11 07/20/2019 Active BIPAP Indications: CSA 07-20-2019 [facility] ([facility]) [facility] (central sleep apnea) , [place] ([id number]) ALEXIS (obstructive sleep apnea) , Nocturnal oxygen desaturation Change settings: Bilevel PAP 20/15 cmH2O with humidification and back up rate 10 with 2 L bled in HS. 1 Device 11 07/20/2019 Active BIPAP Indications: CSA 07-20-2019 [facility] ([facility]) [facility] (central sleep apnea) , [place] ([id number]) ALEXIS (obstructive sleep apnea) , Nocturnal oxygen desaturation Change settings: Bilevel PAP 20/15 cmH2O with humidification and back up rate 10 with 2 L bled in HS. 1 Device 11 07/20/2019 Active BIPAP Indications: CSA 07-20-2019 Sad[facility] ([facility]) [facility] (central sleep apnea) , [place] ([id number]) ALEXIS (obstructive sleep apnea) , Nocturnal oxygen desaturation Change settings: Bilevel PAP 20/15 cmH2O with humidification and back up rate 10 with 2 L bled in HS. 1 Device 11 07/20/2019 Active BIPAP Indications: CSA 07-20-2019 Sadaf ([facility]) [facility] (central sleep apnea) , [place] ([id number]) A[facility]IS (obstructive sleep apnea) , Nocturnal oxygen desaturation Change settings: Bilevel PAP 20/15 cmH2O with humidification and back up rate 10 with 2 L bled in HS. 1 Device 11 07/20/2019 Active BIPAP Indications: CSA 07-20-2019 [facility] ([facility]) [facility] (central sleep apnea) , [place] ([id number]) [facility] (obstructive sleep apnea) , Nocturnal oxygen desaturation Change settings: Bilevel PAP 20/15 cmH2O with humidification and back up rate 10 with 2 L bled in HS. 1 Device 11 07/20/2019 Active BIPAP Indications: CSA 07-20-2019 [facility] ([facility]) [facility] (central sleep apnea) , [place] ([id number]) A[facility]IS (obstructive sleep apnea) , Nocturnal oxygen desaturation Change settings: Bilevel PAP 20/15 cmH2O with humidification and back up rate 10 with 2 L bled in HS. 1 Device 11 07/20/2019 Active BIPAP Indications: CSA 07-20-2019 [facility] ([facility]) [facility] (central sleep apnea) , [place] ([id number]) ALEXIS (obstructive sleep apnea) , Nocturnal oxygen desaturation Change settings: Bilevel PAP 20/15 cmH2O with humidification and back up rate 10 with 2 L bled in HS. 1 Device 11 07/20/2019 Active BIPAP Indications: CSA 07-20-2019 [facility] ([facility]) [facility] (central sleep apnea) , [place] ([id number]) A[facility]IS (obstructive sleep apnea) , Nocturnal oxygen desaturation Change settings: Bilevel PAP 20/15 cmH2O with humidification and back up rate 10 with 2 L bled in HS. 1 Device 11 07/20/2019 Active Comment: Settings Increase IPAP 21, E PAP 16, and BUR 10 cm H2O, suitable mask per pt preference, chin strap, head gear, humidity, tubing, lifetime supplies. G47.33 ALEXIS Change settings: Bilevel PAP 20/15 cmH2O with humidification and back up rate 10 with 2 L bled in HS. Please dispense an overnight pulse oximetry to be done 2 consecutive nights while on BiPAP without oxyge n. OK to discontinue Overnight oxygen. PAP titration and overnight pulse oximetry do not show need fo r nocturnal oxygen at this time. Cholecalciferol cholecalciferol, Vitamin 11-15-2019 [facility] D3, (VITAMIN D3) 1,250 mcg ( 88878) (50,000 unit) cap capsule Take 1 capsule by mouth two times a week. Takes Friday and . 24 capsule 3 11/15/2019 Active cholecalciferol, Vitamin D3, 09-21-2019 - 09-20-2019 [facility] (VITAMIN D3) 1,250 mcg (30291) (50,000 unit) cap capsule Take 1 capsule by mouth two times a week. Takes Friday and . 24 capsule 0 09/21/2019 Active cholecalciferol, Vitamin D3, 09-21-2019 [facility] (VITAMIN D3) 1,250 mcg (81227) (50,000 unit) cap capsule Take 1 capsule by mouth two times a week. Takes Friday and . 24 capsule 0 09/21/2019 Active Comment: Take 1 capsule by mouth two times a week. Takes Friday and . Take 50,000 Units by mouth t wo times a week. Takes Friday and . 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 90 tablet 3 11/16/2019 Active Comment: Take 1 tablet by mouth once daily. PLEASE CALL OFFICE [phone] TO SCHEDULE APPOINTMENT FOR FUR THER REFILLS Take 1 tablet by mouth once daily. Colestipol colestipol (COLESTID) 1 08-31-2019 Loyd Bacon [facility] gram tablet Indications: (44 [id number]) Crohn's disease of small intestine with complication (HCC) Take 1 tablet by mouth twice daily. 60 tablet 5 08/31/2019 Active Comment: Take 1 tablet by mouth twice daily. COMPOUNDED COMPOUNDED 12-04-2018 [facility] ([id number]) Indications: Spinal stenosis of lumbar region, unspecified whether neurogenic claudication present , Unsteady gait , Crohn's disease of small intestine without complication (HCC) Please dispense a rollator with a seat. 1 Each 0 12/04/2018 Active COMPOUNDED PRESCRIPTION 12-04-2018 Analisa corrales [facility] ([id number]) Indications: Spinal stenosis of lumbar region, unspecified whether neurogenic claudication present , Unsteady gait , Crohn's disease of small intestine without complication (HCC) Please dispense a rollator with a seat. 1 Each 0 12/04/2018 Active COMPOUNDED PRESCRIPTION 12-04-2018 Analisa corrales [facility] ([id number]) Indications: Spinal stenosis of lumbar region, unspecified whether neurogenic claudication present , Unsteady gait , Crohn's disease of small intestine without complication (HCC) Please dispense a rollator with a seat. 1 Each 0 12/04/2018 Active COMPOUNDED PRESCRIPTION 12-04-2018 Analisa Ganta [facility] ([id number]) Indications: Spinal stenosis of lumbar region, unspecified whether neurogenic claudication present , Unsteady gait , Crohn's disease of small intestine without complication (HCC) Please dispense a rollator with a seat. 1 Each 0 12/04/2018 Active COMPOUNDED PRESCRIPTION 12-04-2018 Analisa Ganta [facility] ([id number]) Indications: Spinal stenosis of lumbar region, unspecified whether neurogenic claudication present , Unsteady gait , Crohn's disease of small intestine without complication (HCC) Please dispense a rollator with a seat. 1 Each 0 12/04/2018 Active COMPOUNDED PRESCRIPTION 12-04-2018 Analisa Ganta [facility] ([id number]) Indications: Spinal stenosis of lumbar region, unspecified whether neurogenic claudication present , Unsteady gait , Crohn's disease of small intestine without complication (HCC) Please dispense a rollator with a seat. 1 Each 0 12/04/2018 Active COMPOUNDED PRESCRIPTION 12-04-2018 Analisa Ganta [facility] ([id number]) Indications: Spinal stenosis of lumbar region, unspecified whether neurogenic claudication present , Unsteady gait , Crohn's disease of small intestine without complication (HCC) Please dispense a rollator with a seat. 1 Each 0 12/04/2018 Active COMPOUNDED PRESCRIPTION 12-04-2018 Analisa Ganta [facility] ([id number]) Indications: Spinal stenosis of lumbar region, unspecified whether neurogenic claudication present , Unsteady gait , Crohn's disease of small intestine without complication (HCC) Please dispense a rollator with a seat. 1 Each 0 12/04/2018 Active COMPOUNDED PRESCRIPTION 12-04-2018 Analisa Ganta [facility] ([id number]) Indications: Spinal stenosis of lumbar region, unspecified whether neurogenic claudication present , Unsteady gait , Crohn's disease of small intestine without complication (HCC) Please dispense a rollator with a seat. 1 Each 0 12/04/2018 Active COMPOUNDED PRESCRIPTION 12-04-2018 Analisa Ganta [facility] ([id number]) Indications: Spinal stenosis of lumbar region, unspecified whether neurogenic claudication present , Unsteady gait , Crohn's disease of small intestine without complication (HCC) Please dispense a rollator with a seat. 1 Each 0 12/04/2018 Active COMPOUNDED PRESCRIPTION 12-04-2018 Analisa Ganta [facility] ([id number]) Indications: Spinal stenosis of lumbar region, unspecified whether neurogenic claudication present , Unsteady gait , Crohn's disease of small intestine without complication (HCC) Please dispense a rollator with a seat. 1 Each 0 12/04/2018 Active COMPOUNDED PRESCRIPTION 12-04-2018 Analisa Ganta [facility] ([id number]) Indications: Spinal stenosis of lumbar region, unspecified whether neurogenic claudication present , Unsteady gait , Crohn's disease of small intestine without complication (HCC) Please dispense a rollator with a seat. 1 Each 0 12/04/2018 Active COMPOUNDED PRESCRIPTION 12-04-2018 Analisa Ganta [facility] ([id number]) Indications: Spinal stenosis of lumbar region, unspecified whether neurogenic claudication present , Unsteady gait , Crohn's disease of small intestine without complication (HCC) Please dispense a rollator with a seat. 1 Each 0 12/04/2018 Active COMPOUNDED PRESCRIPTION 12-04-2018 Analisa Ganta [facility] ([id number]) Indications: Spinal stenosis of lumbar region, unspecified whether neurogenic claudication present , Unsteady gait , Crohn's disease of small intestine without complication (HCC) Please dispense a rollator with a seat. 1 Each 0 12/04/2018 Active COMPOUNDED PRESCRIPTION 12-04-2018 Analisa Ganta [facility] ([id number]) Indications: Spinal stenosis of lumbar region, unspecified whether neurogenic claudication present , Unsteady gait , Crohn's disease of small intestine without complication (HCC) Please dispense a rollator with a seat. 1 Each 0 12/04/2018 Active COMPOUNDED PRESCRIPTION 12-04-2018 Analisa Ganta [facility] ([id number]) Indications: Spinal stenosis of lumbar region, unspecified whether neurogenic claudication present , Unsteady gait , Crohn's disease of small intestine without complication (HCC) Please dispense a rollator with a seat. 1 Each 0 12/04/2018 Active COMPOUNDED PRESCRIPTION 12-04-2018 Analisa Ganta [facility] ([id number]) Indications: Spinal stenosis of lumbar region, unspecified whether neurogenic claudication present , Unsteady gait , Crohn's disease of small intestine without complication (HCC) Please dispense a rollator with a seat. 1 Each 0 12/04/2018 Active COMPOUNDED PRESCRIPTION 12-04-2018 Analisa Ganta [facility] ([id number]) Indications: Spinal stenosis of lumbar region, unspecified whether neurogenic claudication present , Unsteady gait , Crohn's disease of small intestine without complication (HCC) Please dispense a rollator with a seat. 1 Each 0 12/04/2018 Active COMPOUNDED PRESCRIPTION 12-04-2018 Analisa Ganta [facility] ([id number]) Indications: Spinal stenosis of lumbar region, unspecified whether neurogenic claudication present , Unsteady gait , Crohn's disease of small intestine without complication (HCC) Please dispense a rollator with a seat. 1 Each 0 12/04/2018 Active COMPOUNDED PRESCRIPTION 12-04-2018 Analisa Ganta [facility] ([id number]) Indications: Spinal stenosis of lumbar region, unspecified whether neurogenic claudication present , Unsteady gait , Crohn's disease of small intestine without complication (HCC) Please dispense a rollator with a seat. 1 Each 0 12/04/2018 Active COMPOUNDED PRESCRIPTION 12-04-2018 Analisa Ganta [facility] ([id number]) Indications: Spinal stenosis of lumbar region, unspecified whether neurogenic claudication present , Unsteady gait , Crohn's disease of small intestine without complication (HCC) Please dispense a rollator with a seat. 1 Each 0 12/04/2018 Active COMPOUNDED PRESCRIPTION 12-04-2018 Analisa Ganta [facility] ([id number]) Indications: Spinal stenosis of lumbar region, unspecified whether neurogenic claudication present , Unsteady gait , Crohn's disease of small intestine without complication (HCC) Please dispense a rollator with a seat. 1 Each 0 12/04/2018 Active COMPOUNDED PRESCRIPTION 12-04-2018 Analisa Ganta [facility] ([id number]) Indications: Spinal stenosis of lumbar region, unspecified whether neurogenic claudication present , Unsteady gait , Crohn's disease of small intestine without complication (HCC) Please dispense a rollator with a seat. 1 Each 0 12/04/2018 Active COMPOUNDED PRESCRIPTION 12-04-2018 Analisa Calix [facility] ([id number]) Indications: Spinal stenosis of lumbar region, unspecified whether neurogenic claudication present , Unsteady gait , Crohn's disease of small intestine without complication (HCC) Please dispense a rollator with a seat. 1 Each 0 12/04/2018 Active COMPOUNDED PRESCRIPTION Lumbar 10-04-2016 Herminia ([employer]) [facility] ([id number]) support brace Dx: M48.06, M54.31, M51.26 1 Each 0 10/04/2016 Active COMPOUNDED PRESCRIPTION Lumbar 10-04-2016 Herminia ([employer]) [facility] ([id number]) support brace Dx: M48.06, M54.31, M51.26 1 Each 0 10/04/2016 Active COMPOUNDED PRESCRIPTION Lumbar 10-04-2016 Herminia ([employer]) [facility] ([id number]) support brace Dx: M48.06, M54.31, M51.26 1 Each 0 10/04/2016 Active COMPOUNDED PRESCRIPTION Lumbar 10-04-2016 Herminia ([employer]) [facility] ([id number]) support brace Dx: M48.06, M54.31, M51.26 1 Each 0 10/04/2016 Active COMPOUNDED PRESCRIPTION Lumbar 10-04-2016 Herminia ([employer]) [facility] (21507) support brace Dx: M48.06, M54.31, M51.26 1 Each 0 10/04/2016 Active COMPOUNDED PRESCRIPTION Lumbar 10-04-2016 Herminia ([employer]) [facility] (45803) support brace Dx: M48.06, M54.31, M51.26 1 Each 0 10/04/2016 Active COMPOUNDED PRESCRIPTION Lumbar 10-04-2016 Herminia ([employer]) Older C [facility] ([id number]) support brace Dx: M48.06, M54.31, M51.26 1 Each 0 10/04/2016 Active COMPOUNDED PRESCRIPTION Lumbar 10-04-2016 Herminia ([employer]) [facility] ([id number]) support brace Dx: M48.06, M54.31, M51.26 1 Each 0 10/04/2016 Active COMPOUNDED PRESCRIPTION Lumbar 10-04-2016 Herminia ([employer]) [facility] ([id number]) support brace Dx: M48.06, M54.31, M51.26 1 Each 0 10/04/2016 Active COMPOUNDED PRESCRIPTION Lumbar 10-04-2016 Herminia ([employer]) [facility] Dx: M48.06, M54.31, M51.26 1 Each 0 10/04/2016 Active COMPOUNDED PRESCRIPTION Lumbar 10-04-2016 Herminia ([employer]) [facility] (75058[facility] support brace Dx: M48.06, M54.31, M51.26 1 Each 0 10/04/2016 Active COMPOUNDED PRESCRIPTION Lumbar 10-04-2016 Herminia ([employer]) [facility] ([id number][facility] support brace Dx: M48.06, M54.31, M51.26 1 Each 0 10/04/2016 Active COMPOUNDED PRESCRIPTION Lumbar 10-04-2016 Herminia ([employer]) Older C [facility] ([id number]) support brace Dx: M48.06, M54.31, M51.26 1 Each 0 10/04/2016 Active COMPOUNDED PRESCRIPTION Lumbar 10-04-2016 Herminia ([employer]) [facility] ([id number][facility] support brace Dx: M48.06, M54.31, M51.26 1 Each 0 10/04/2016 Active COMPOUNDED PRESCRIPTION Lumbar 10-04-2016 Herminia ([employer]) [facility] ([id number][facility] support brace Dx: M48.06, M54.31, M51.26 1 Each 0 10/04/2016 Active COMPOUNDED PRESCRIPTION Lumbar 10-04-2016 Herminia ([employer]) [facility] ([id number][facility] support brace Dx: M48.06, M54.31, M51.26 1 Each 0 10/04/2016 Active COMPOUNDED PRESCRIPTION Lumbar 10-04-2016 Herminia ([employer]) [facility] (86662) support brace Dx: M48.06, M54.31, M51.26 1 Each 0 10/04/2016 Active COMPOUNDED PRESCRIPTION Lumbar 10-04-2016 Herminia ([employer]) [facility]er C [facility]and [facility] ([id number]) support brace Dx: M48.06, M54.31, M51.26 1 Each 0 10/04/2016 Active COMPOUNDED PRESCRIPTION Lumbar 10-04-2016 Herminia ([employer]) [facility] (16320) support brace Dx: M48.06, M54.31, M51.26 1 Each 0 10/04/2016 Active COMPOUNDED PRESCRIPTION Lumbar 10-04-2016 Herminia ([facility]) Older C [facility] (17702) support brace Dx: M48.06, M54.31, M51.26 1 Each 0 10/04/2016 Active COMPOUNDED PRESCRIPTION Lumbar 10-04-2016 Herminia ([facility]) Older C [facility] ([id number]) support brace Dx: M48.06, M54.31, M51.26 1 Each 0 10/04/2016 Active COMPOUNDED PRESCRIPTION Lumbar 10-04-2016 Herminia ([facility]) Older C [facility] (22255) support brace Dx: M48.06, M54.31, M51.26 1 Each 0 10/04/2016 Active COMPOUNDED PRESCRIPTION Lumbar 10-04-2016 Herminia ([facility]) [facility] ([id number]) support brace Dx: M48.06, M54.31, M51.26 1 Each 0 10/04/2016 Active COMPOUNDED PRESCRIPTION Lumbar 10-04-2016 Herminia ([facility]) [facility] (37188) support brace Dx: M48.06, M54.31, M51.26 1 Each 0 10/04/2016 Active Comment: Lumbar support brace Dx: M48 .06, M54.31, M51.26 Please dispense a rollator w ith a seat. Dicyclomine dicyclomine (BENTYL) 10 05-24-2019 [facility] Charbel caban [facility] mg capsule Take 1 (90592) capsule by mouth four times daily as needed (abd cramping). 360 capsule 3 05/24/2019 Active Comment: Take 1 capsule by mouth four times daily as needed (abd cramping). DULoxetine DULoxetine (CYMBALTA) 01-28-2019 [facility] Bert [facility] 20 mg capsule Take 1 (08512) capsule by mouth once daily. 90 capsule 3 01/28/2019 Active Comment: Take 1 capsule by mouth once daily. Famotidine famotidine (PEPCID) 10-26-2019 - [facility] 20 mg tablet Take 1 04-23-2020 Bert ([id number]) tablet by mouth twice daily. 180 tablet 1 10/26/2019 04/23/2020 Active Comment: Take 1 tablet by mouth twice daily. ferrous sulfate ferrous sulfate 325 03-22-2019 - Dung ([facility]) [facility] mg (65 mg iron) EC 09-29-2019 Bert ([id number]) tablet Indications: Pancytopenia (HCC) Take 1 tablet by mouth daily with breakfast. 30 tablet 5 03/22/2019 09/29/2019 Discontinued Comment: Take 1 tablet by mouth daily with breakfast. Finasteride finasteride (PROSCAR) 5 01-28-2019 Dung ([facility]) Charbel caban [facility] mg tablet Take 1 tablet (441 95) by mouth once daily. 90 tablet 3 01/28/2019 Active Comment: Take 1 tablet by mouth once daily. Furosemide furosemide (LASIX) 20 mg tablet [facility] Provi kalie [facility] ([id number]) Take 20 mg by mouth once daily. 5 days per week 0 Active Comment: Take 20 mg by mouth once dylan ly. 5 days per week gabapentin gabapentin 11-22-2019 - Ivelisse Danielle [facility] ic (NEURONTIN) 100 mg 05-20-2020 ([id number]) capsule Take 2 capsules by mouth every morning for 180 days. 180 capsule 0 11/22/2019 05/20/2020 Active gabapentin (NEURONTIN) 11-22-2019 - Ivelisse Danielle [facility] 300 mg capsule Take 1 05-20-2020 ([id number]) capsule by mouth at bedtime as needed for up to 180 days. 90 capsule 0 11/22/2019 05/20/2020 Active gabap[facility] (NEURONTIN) [facility] Take [facility] 11-17-2019 Wal[facility] (22804) capsules by mouth every morning for 180 days. 180 capsule 1 05/21/2019 Active gabapentin (NEURONTIN) 05-21-2019 - [facility] ([facility] 300 mg capsule Take 1 11-17-2019 Walters (59773) capsule by mouth at bedtime as needed for up to 180 days. 90 capsule 1 05/21/2019 Active Comment: Take 2 capsules by mouth josh ry morning for 180 days. Take 1 capsule by mouth at b edtime as needed for up to 180 days. Insulin, Aspart insulin aspart 05-06-2019 Natasha Crandall) [facility] Protamine, Human / protamine-insulin aspart Robbie ([id number]) Insulin, Aspart, (NovoLOG 70-30) 100 Human unit/mL flexpen Indications: Type 2 diabetes mellitus with complication, with long-term current use of insulin (HCC) INJECT 10 UNITS SUBCUTANEOUSLY BEFORE BREAKFAST AND 6 UNITS BEFORE EVENING MEAL 60 mL 3 05/06/2019 Active Comment: INJECT 10 UNITS SUBCUTANEOUS LY BEFORE BREAKFAST AND 6 UNITS BEFORE EVENING MEAL Insulin, Aspart, insulin aspart (NOVOLOG 09-29-2019 [facility] Provider [facility] Human FLEXPEN U-100 INSULIN ([id number] ) SUBCUTANEOUS) Sliding scale #2 AC only. If Blood Glucose (mg/dL) is 111-150 Give 0 units 151-200 Give 2 unit 201-250 Give 4 units 251-300 Give 6 units 301-350 Give 8 units 351-400 Give 10 units >400 Call physician 0 09/29/2019 Discontinued insulin aspart (NOVOLOG FLEXPEN 09-29-2019 [facility] Provider [facility] ([id number]) U-100 INSULIN SUBCUTANEOUS) Sliding scale #2 AC only. If Blood Glucose (mg/dL) is 111-150 Give 0 units 151-200 Give 2 unit 201-250 Give 4 units 251-300 Give 6 units 301-350 Give 8 units 351-400 Give 10 units >400 Call physician 0 09/29/2019 Discontinued insulin aspart (NOVOLOG FLEXPEN 09-29-2019 [facility] Provider [facility] ([id number]) U-100 INSULIN SUBCUTANEOUS) Sliding scale #2 AC only. If Blood Glucose (mg/dL) is 111-150 Give 0 units 151-200 Give 2 unit 201-250 Give 4 units 251-300 Give 6 units 301-350 Give 8 units 351-400 Give 10 units >400 Call physician 0 09/29/2019 Discontinued Comment: Sliding scale #2 AC only. If Blood Glucose (mg/dL) is <110 Give 0 units 111-150 Give 0 units 151-200 Give 2 unit 201-250 Give 4 units 251-300 Give 6 units 301-350 Give 8 units 351-400 Give 10 units >400 Call physician Lancing Device Lancing Device misc 1 05-27-2016 Kiana Seo [facility] mis Each twice daily. Dx: ([id number] ) Type 2 DM - Uncontrolled E11.65 Insulin: Yes 100 Each 11 05/27/2016 Active Lancing Device misc 1 Each twice 05-27-2016 Kiana D [facility] (52891) daily. Dx: Type 2 DM - Uncontrolled E11.65 Insulin: Yes 100 Each 05/27/2016 Active Lancing Device misc 1 Each twice 05-27-2016 Kiana D [facility] ([id number]) daily. Dx: Type 2 DM - Uncontrolled E11.65 Insulin: Yes 100 Each 05/27/2016 Active Lancing Device misc 1 Each twice 05-27-2016 Kiana D [facility] (61342) daily. Dx: Type 2 DM - Uncontrolled E11.65 Insulin: Yes 100 Each 05/27/2016 Active Lancing Device misc 1 Each twice 05-27-2016 Kiana D [facility] (71746) daily. Dx: Type 2 DM - Uncontrolled E11.65 Insulin: Yes 100 Each 05/27/2016 Active Lancing Device misc 1 Each twice 05-27-2016 Kiana D [facility] ([id number]) daily. Dx: Type 2 DM - Uncontrolled E11.65 Insulin: Yes 100 Each 05/27/2016 Active Lancing Device misc 1 Each twice 05-27-2016 Kiana D [facility] (51354) daily. Dx: Type 2 DM - Uncontrolled E11.65 Insulin: Yes 100 Each 05/27/2016 Active Lancing Device misc 1 Each twice 05-27-2016 Kiana D [facility] (42351) daily. Dx: Type 2 DM - Uncontrolled E11.65 Insulin: Yes 100 Each 05/27/2016 Active Lancing Device misc 1 Each twice 05-27-2016 Kiana D [facility] (34841) daily. Dx: Type 2 DM - Uncontrolled E11.65 Insulin: Yes 100 Each 05/27/2016 Active Lancing Device misc 1 Each twice 05-27-2016 Kiana D [facility] (31983) daily. Dx: Type 2 DM - Uncontrolled E11.65 Insulin: Yes 100 Each 05/27/2016 Active Lancing Device misc 1 Each twice 05-27-2016 Kiana D [facility] (14022) daily. Dx: Type 2 DM - Uncontrolled E11.65 Insulin: Yes 100 Each 05/27/2016 Active Lancing Device misc 1 Each twice 05-27-2016 Kiana D [facility] (89752) daily. Dx: Type 2 DM - Uncontrolled E11.65 Insulin: Yes 100 Each 05/27/2016 Active Lancing Device misc 1 Each twice 05-27-2016 Kiana D [facility] (43087) daily. Dx: Type 2 DM - Uncontrolled E11.65 Insulin: Yes 100 Each 05/27/2016 Active Lancing Device misc 1 Each twice 05-27-2016 Kiana D [facility] (17825) daily. Dx: Type 2 DM - Uncontrolled E11.65 Insulin: Yes 100 Each 05/27/2016 Active Lancing Device misc 1 Each twice 05-27-2016 Kiana D [facility] ([id number]) daily. Dx: Type 2 DM - Uncontrolled E11.65 Insulin: Yes 100 Each 05/27/2016 Active Lancing Device misc 1 Each twice 05-27-2016 Kiana D [facility] (93544) daily. Dx: Type 2 DM - Uncontrolled E11.65 Insulin: Yes 100 Each 05/27/2016 Active Lancing Device misc 1 Each twice 05-27-2016 Kiana D [facility] (31991) daily. Dx: Type 2 DM - Uncontrolled E11.65 Insulin: Yes 100 Each 05/27/2016 Active Lancing Device misc 1 Each twice 05-27-2016 Kiana D [facility] (74373) daily. Dx: Type 2 DM - Uncontrolled E11.65 Insulin: Yes 100 Each 05/27/2016 Active Lancing Device misc 1 Each twice 05-27-2016 Kiana D [facility] (66232) daily. Dx: Type 2 DM - Uncontrolled E11.65 Insulin: Yes 100 Each 05/27/2016 Active Lancing Device misc 1 Each twice 05-27-2016 Kiana D [facility] (34647) daily. Dx: Type 2 DM - Uncontrolled E11.65 Insulin: Yes 100 Each 05/27/2016 Active Lancing Device misc 1 Each twice 05-27-2016 Kiana D [facility] ([id number]) daily. Dx: Type 2 DM - Uncontrolled E11.65 Insulin: Yes 100 Each 05/27/2016 Active Lancing Device misc 1 Each twice 05-27-2016 Kiana D [facility] (94268) daily. Dx: Type 2 DM - Uncontrolled E11.65 Insulin: Yes 100 Each 05/27/2016 Active Lancing Device misc 1 Each twice 05-27-2016 Kiana D [facility] (71524) daily. Dx: Type 2 DM - Uncontrolled E11.65 Insulin: Yes 100 Each 05/27/2016 Active Lancing Device misc 1 Each twice 05-27-2016 Kiana D [facility] (45676) daily. Dx: Type 2 DM - Uncontrolled E11.65 Insulin: Yes 100 Each 05/27/2016 Active Comment: 1 Each twice daily. Dx: Type 2 DM - Uncontrolled E11.65 Insulin: Yes lanolin (SKIN lanolin (SKIN 02-04-2019 [place]aur [place]) [facility] PROTECTIVE PASTE) PROTECTIVE PASTE) Robbie ([id number]) pste pste Apply 1 application to affected area twice daily. 0 02/04/2019 Active lanolin (SKIN PROTECTIVE PASTE) 02-04-2019 Natasha aRmirez [place] [facility] ([id number]) pste Apply 1 application to affected area twice daily. 0 02/04/2019 Active lanolin (SKIN PROTECTIVE PASTE) 02-04-2019 Natasha Ramirez [place] [facility] ([id number]) pste Apply 1 application to affected area twice daily. 0 02/04/2019 Active lanolin (SKIN PROTECTIVE PASTE) 02-04-2019 Natasha Ramirez [place] [facility] ([id number]) pste Apply 1 application to affected area twice daily. 0 02/04/2019 Active lanolin (SKIN PROTECTIVE PASTE) 02-04-2019 Natasha Ramirez [place] [facility] ([id number]) pste Apply 1 application to affected area twice daily. 0 02/04/2019 Active lanolin (SKIN PROTECTIVE PASTE) 02-04-2019 Natasha Ramirez [place] [facility] ([id number]) pste Apply 1 application to affected area twice daily. 0 02/04/2019 Active lanolin (SKIN PROTECTIVE PASTE) 02-04-2019 Natasha Ramirez [place] [facility] ([id number]) pste Apply 1 application to affected area twice daily. 0 02/04/2019 Active lanolin (SKIN PROTECTIVE PASTE) 02-04-2019 Natasha ([place] ([id number]) pste Apply 1 application to affected area twice daily. 0 02/04/2019 Active lanolin (SKIN PROTECTIVE PASTE) 02-04-2019 Natasha ([place]) [facility] (60712) pste Apply 1 application to affected area twice daily. 0 02/04/2019 Active lanolin (SKIN PROTECTIVE PASTE) 02-04-2019 Natasha ([place]) [facility] ([id number]) pste Apply 1 application to affected area twice daily. 0 02/04/2019 Active lanolin (SKIN PROTECTIVE PASTE) 02-04-2019 Natasha ([place]) [facility] (23742) pste Apply 1 application to affected area twice daily. 0 02/04/2019 Active lanolin (SKIN PROTECTIVE PASTE) 02-04-2019 Natasha ([place]) [facility] ([id number]) pste Apply 1 application to affected area twice daily. 0 02/04/2019 Active lanolin (SKIN PROTECTIVE PASTE) 02-04-2019 Natasha ([place]) [facility] ([id number]) pste Apply 1 application to affected area twice daily. 0 02/04/2019 Active lanolin (SKIN PROTECTIVE PASTE) 02-04-2019 [facility] ([id number]) pste Apply 1 application to affected area twice daily. 0 02/04/2019 Active lanolin (SKIN PROTECTIVE PASTE) 02-04-2019 [facility] ([id number]) pste Apply 1 application to affected area twice daily. 0 02/04/2019 Active lanolin (SKIN PROTECTIVE PASTE) 02-04-2019 [facility] ([id number]) pste Apply 1 application to affected area twice daily. 0 02/04/2019 Active lanolin (SKIN PROTECTIVE PASTE) 02-04-2019 [facility] ([id number]) pste Apply 1 application to affected area twice daily. 0 02/04/2019 Active lanolin (SKIN PROTECTIVE PASTE) 02-04-2019 [facility] (73066) pste Apply 1 application to affected area twice daily. 0 02/04/2019 Active lanolin (SKIN PROTECTIVE PASTE) 02-04-2019 [facility] ([id number]) pste Apply 1 application to affected area twice daily. 0 02/04/2019 Active lanolin (SKIN PROTECTIVE PASTE) 02-04-2019 [facility] ([id number]) pste Apply 1 application to affected area twice daily. 0 02/04/2019 Active lanolin (SKIN PROTECTIVE PASTE) 02-04-2019 [facility] ([id number]) pste Apply 1 application to affected area twice daily. 0 02/04/2019 Active lanolin (SKIN PROTECTIVE PASTE) 02-04-2019 [facility] ([id number]) pste Apply 1 application to affected area twice daily. 0 02/04/2019 Active lanolin (SKIN PROTECTIVE PASTE) 02-04-2019 [facility] ([id number]) pste Apply 1 application to affected area twice daily. 0 02/04/2019 Active lanolin (SKIN PROTECTIVE PASTE) 02-04-2019 [facility] ([id number]) pste Apply 1 application to affected area twice daily. 0 02/04/2019 Active Comment: Apply 1 application to affec pratik area twice daily. levothyroxine levothyroxine (SYNTHROID) 07-29-2019 Martina Seo [facility] 137 mcg tablet Indications: (63461) Hypothyroidism, unspecified type TAKE 1 TABLET EVERY DAY ON AN EMPTY STOMACH FOR THYROID 90 tablet 3 07/29/2019 Active Comment: TAKE 1 TABLET EVERY DAY ON A N EMPTY STOMACH FOR THYROID Loperamide loperamide (IMODIUM 06-24-2019 - [facility]) 2 mg cap(s) 01-24-2020 ([id number]) Take 2 capsules by mouth before meals and at bedtime. Take 2 tablets 30-60 minutes before meals and at bedtime as needed for diarrhea, titrate for output. 720 capsule 0 10/26/2019 01/24/2020 Active Comment: Take 2 capsules by mouth bef ore meals and at bedtime. Take 2 tablets 30-60 minutes before meals and at bedtime as needed for diarrhea, titrate for output. Melatonin melatonin 10 mg subl Dissolve 1 [facility] Provi kalie [facility] ([id number]) tablet under the tongue at bedtime as needed. 0 Active Comment: Dissolve 1 tablet under the tongue at bedtime as needed. Metoprolol metoprolol tartrate, 12-22-2018 - Dung ([facility]) [facility], 06-24-2020 [facility] ([id number]) (LOPRESSOR) 25 mg tablet Take 1 tablet by mouth twice daily. 180 tablet 1 10/26/2019 04/23/2020 Active Comment: Take 1 tablet by mouth twice daily. Nicotine nicotine polacrilex 09-08-2018 Dung ([facility]) Bert [facility] (NICORETTE) 2 mg gum ([id number]) Take 1 Each by mouth every 2 hours as needed. 0 09/08/2018 Active Comment: Take 1 Each by mouth every 2 hours as needed. Octreotide OCTREOTIDE ACETATE (SANDOSTATIN [facility] Provi [facility] INJECTION) by INJECTION(UNSPECIFIED ([id number]) PARENTERAL ROUTES) route once every month. 0 Active OCTREOTIDE ACETATE (SANDOSTATIN INJECTION) by [place] ([id number]) INJECTION(UNSPECIFIED PARENTERAL ROUTES) route once every month. 0 Active OCTREOTIDE ACETATE (SANDOSTATIN INJECTION) by [place] ([id number]) INJECTION(UNSPECIFIED PARENTERAL ROUTES) route once every month. 0 Active OCTREOTIDE ACETATE (SANDOSTATIN INJECTION) by [place] ([id number]) INJECTION(UNSPECIFIED PARENTERAL ROUTES) route once every month. 0 Active OCTREOTIDE ACETATE (SANDOSTATIN INJECTION) by [place] ([id number]) INJECTION(UNSPECIFIED PARENTERAL ROUTES) route once every month. 0 Active OCTREOTIDE ACETATE (SANDOSTATIN INJECTION) by [place] ([id number]) INJECTION(UNSPECIFIED PARENTERAL ROUTES) route once every month. 0 Active OCTREOTIDE ACETATE (SANDOSTATIN INJECTION) by [place] ([id number]) INJECTION(UNSPECIFIED PARENTERAL ROUTES) route once every month. 0 Active OCTREOTIDE ACETATE (SANDOSTATIN INJECTION) by [place] ([id number]) INJECTION(UNSPECIFIED PARENTERAL ROUTES) route once every month. 0 Active OCTREOTIDE ACETATE (SANDOSTATIN INJECTION) by [place] ([id number]) INJECTION(UNSPECIFIED PARENTERAL ROUTES) route once every month. 0 Active OCTREOTIDE ACETATE (SANDOSTATIN INJECTION) by [place] ([id number]) INJECTION(UNSPECIFIED PARENTERAL ROUTES) route once every month. 0 Active OCTREOTIDE ACETATE (SANDOSTATIN INJECTION) by [place] ([id number]) INJECTION(UNSPECIFIED PARENTERAL ROUTES) route once every month. 0 Active OCTREOTIDE ACETATE (SANDOSTATIN INJECTION) by [place] ([id number]) INJECTION(UNSPECIFIED PARENTERAL ROUTES) route once every month. 0 Active OCTREOTIDE ACETATE (SANDOSTATIN INJECTION) by [place] ([id number]) INJECTION(UNSPECIFIED PARENTERAL ROUTES) route once every month. 0 Active OCTREOTIDE ACETATE (SANDOSTATIN INJECTION) by [place] ([id number]) INJECTION(UNSPECIFIED PARENTERAL ROUTES) route once every month. 0 Active OCTREOTIDE ACETATE (SANDOSTATIN INJECTION) by [place] ([id number]) INJECTION(UNSPECIFIED PARENTERAL ROUTES) route once every month. 0 Active OCTREOTIDE ACETATE (SANDOSTATIN INJECTION) by [place] ([id number]) INJECTION(UNSPECIFIED PARENTERAL ROUTES) route once every month. 0 Active OCTREOTIDE ACETATE (SANDOSTATIN INJECTION) by [place] ([id number]) INJECTION(UNSPECIFIED PARENTERAL ROUTES) route once every month. 0 Active OCTREOTIDE ACETATE (SANDOSTATIN INJECTION) by [place] ([id number]) INJECTION(UNSPECIFIED PARENTERAL ROUTES) route once every month. 0 Active OCTREOTIDE ACETATE (SANDOSTATIN INJECTION) by [place] ([id number]) INJECTION(UNSPECIFIED PARENTERAL ROUTES) route once every month. 0 Active OCTREOTIDE ACETATE (SANDOSTATIN INJECTION) by [place] ([id number]) INJECTION(UNSPECIFIED PARENTERAL ROUTES) route once every month. 0 Active OCTREOTIDE ACETATE (SANDOSTATIN INJECTION) by [place] ([id number]) INJECTION(UNSPECIFIED PARENTERAL ROUTES) route once every month. 0 Active OCTREOTIDE ACETATE (SANDOSTATIN INJECTION) by [place] ([id number]) INJECTION(UNSPECIFIED PARENTERAL ROUTES) route once every month. 0 Active OCTREOTIDE ACETATE (SANDOSTATIN INJECTION) by [place] ([id number]) INJECTION(UNSPECIFIED PARENTERAL ROUTES) route once every month. 0 Active OCTREOTIDE ACETATE (SANDOSTATIN INJECTION) by [place] ([id number]) INJECTION(UNSPECIFIED PARENTERAL ROUTES) route once every month. 0 Active Comment: by INJECTION(UNSPECIFIED PAR ENTERAL ROUTES) route once every month. Ondansetron ondansetron (ZOFRAN) 8 mg 03-12-2019 Lapman Morgan [facility] ([id number]) tablet Take 1 tablet by mouth every 8 hours as needed. 20 tablet 2 03/12/2019 Active Comment: Take 1 tablet by mouth every 8 hours as needed. oxyCODONE oxyCODONE IR 08-12-2019 - Dung ([facility]) [facility] (ROXICODONE) 5 mg 12-23-2019 [facility] ([id number]) immediate release tablet Indications: Abdominal pain, unspecified abdominal location Take 1 tablet by mouth every 8 hours as needed for Pain for up to 30 days. 60 tablet 0 11/23/2019 12/23/2019 Active Comment: Take 1 tablet by mouth every 8 hours as needed for Pain for up to 30 days. Take 1 tablet by mouth every 8 hours as needed for Pain for up to 30 days. Do not start before August 12, 2019. pantoprazole pantoprazole 02-08-2019 [facility] ([facility]) [facility] (PROTONIX) 20 mg tablet [facility] (574 [id number]) Indications: Acute superficial gastritis without hemorrhage Take 1 tablet by mouth daily before breakfast. Take on empty stomach, 1/2 hr before meal. 90 tablet 3 02/08/2019 Active Comment: Take 1 tablet by mouth daily before breakfast. Take on empty stomach, 1/2 hr before meal. Psyllium Psyllium Seed-Sucrose 09-29-2019 [facility] ([id number]) (METAMUCIL SUNRISE) powd Take 1 Tablespoonful by mouth once daily as needed (metamucil powder OTC). 0 09/29/2019 Discontinued Comment: Take 1 Tablespoonful by mout h once daily as needed (metamucil powder OTC). rosuvastatin rosuvastatin (CRESTOR) 5 mg [facility] Provider [facility] ([id number]) tablet Take 5 mg by mouth two times a week. Friday and 0 Active Comment: Take 5 mg by mouth two times a week. Friday and Sertraline sertraline (ZOLOFT) 09-23-2018 - Dung ([facility]) Yogi corrales [facility] 100 mg tablet 10-26-2019 [facility] ([id number]) Indications: Fatigue, unspecified type Take 1 tablet by mouth once daily. 90 tablet 3 10/26/2019 Active Comment: Take 1 tablet by mouth once daily. sildenafil sildenafil (VIAGRA) 100 mg 09-04-[address] [facility] tablet Indications: ([id number]) Erectile dysfunction, unspecified erectile dysfunction type Take 1 tablet by mouth as needed. Take 30 to 60min before sexual activity 10 tablet 1 09/04/2019 Active Comment: Take 1 tablet by mouth as ne eded. Take 30 to 60min before sexual activity Sodium Bicarbonate sodium bicarbonate 06-09-2019 - [place] [facility] 650 mg tablet 11-22-2019 ([id number]) Indications: Metabolic acidosis Take 1 tablet by mouth once daily 90 tablet 0 11/22/2019 Active Comment: Take 1 tablet by mouth once daily. Take 1 tablet by mouth once daily Sodium Chloride NaCl 0.9% (NORMAL 06-24-2019 - [place] ([place]) [facility] SALINE FLUSH) 09-22-2019 Replaced By [facility] ([id number]) Indications: Crohn's (Me) Avalos disease of small intestine with intestinal obstruction (HCC) , Central venous catheter in place Inject 10 mL intravenously once daily. Flush abdullahi catheter 10cc NS daily 90 Syringe 2 06/24/2019 09/22/2019 Comment: Inject 10 mL intravenously o nce daily. Flush abdullahi catheter 10cc NS daily Spironolactone spironolactone 07-09-2019 Dung ([employer]) [facility] linic (ALDACTONE) 25 mg tablet Bert ([id number]) Indications: Chronic kidney disease, stage 4, severely decreased GFR (HCC) Take 1 tablet by mouth once daily. 90 tablet 3 07/09/2019 Active Comment: Take 1 tablet by mouth once daily. tamsulosin tamsulosin ER (FLOMAX) 0.4 06-15-[address] [facility] ([id number]) mg Take 1 capsule by mouth twice daily. 280 capsule 3 06/15/2019 Active Comment: Take 1 capsule by mouth twic e daily. vedolizumab vedolizumab (ENTYVIO) 300 [facility]2019 [facility] Indications: (4 1681) Crohn's disease of small intestine with complication (HCC) Administer 300 mg IV on weeks 0, 2, 6, then every 8 weeks thereafter. No premeds required. Nurse to insert peripheral IV prior to infusions. 300 Each 5 11/22/2019 Active vedolizumab (ENTYVIO) 300 mg 08-31-2019 [facility] ([id number]) injection Indications: Crohn's disease of small intestine with complication (HCC) Administer 300 mg IV on weeks 0, 2, 6, then every 8 weeks thereafter. No premeds required. Nurse to insert peripheral IV prior to infusions. 300 Each 1 08/31/2019 Active Comment: Administer 300 mg IV on week s 0, 2, 6, then every 8 weeks thereafter. No premeds required. Nurse to i nsert peripheral IV prior to infusions. Vitamin B 12 cyanocobalamin (VITAMIN 08-31-2019 [facility] B-12) 1,000 mcg/mL ([id number]) Indications: Crohn's disease of small intestine with complication (HCC) Inject 1 mL subcutaneously one time a week. 4 mL 5 08/31/2019 Active Comment: Inject 1 mL subcutaneously o ne time a week. Wheel Chair Wheel Chair diana 12-05-[address] [facility] diana Indications: ([id number]) Radiculopathy, lumbar region , Spinal stenosis, lumbar region, without neurogenic claudication , Displacement of lumbar 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thy Wheelchair with foot supports Dx: spinal stenosis, displacement of lumbar intervertebral disc 1 Device 0 12/05/2017 Active Wheel Chair diana Indications: 12-05-2017 Kiana Corrales [facility] ([id number]) Radiculopathy, lumbar region , Spinal stenosis, lumbar region, without neurogenic claudication , Displacement of lumbar 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thy Wheelchair with foot supports Dx: spinal stenosis, displacement of lumbar intervertebral disc 1 Device 0 12/05/2017 Active Wheel Chair diana Indications: 12-05-2017 iKana Corrales [facility] ([id number]) Radiculopathy, lumbar region , Spinal stenosis, lumbar region, without neurogenic claudication , Displacement of lumbar 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thy Wheelchair with foot supports Dx: spinal stenosis, displacement of lumbar intervertebral disc 1 Device 0 12/05/2017 Active Wheel Chair diana Indications: 12-05-2017 Kiana Corrales [facility] ([id number]) Radiculopathy, lumbar region , Spinal stenosis, lumbar region, without neurogenic claudication , Displacement of lumbar 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thy Wheelchair with foot supports Dx: spinal stenosis, displacement of lumbar intervertebral disc 1 Device 0 12/05/2017 Active Wheel Chair diana Indications: 12-05-2017 Kiana Maza [facility] ([id number]) Radiculopathy, lumbar region , Spinal stenosis, lumbar region, without neurogenic claudication , Displacement of lumbar 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thy Wheelchair with foot supports Dx: spinal stenosis, displacement of lumbar intervertebral disc 1 Device 0 12/05/2017 Active Wheel Chair diana Indications: 12-05-2017 Kiana Maza [facility] ([id number]) Radiculopathy, lumbar region , Spinal stenosis, lumbar region, without neurogenic claudication , Displacement of lumbar 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thy Wheelchair with foot supports Dx: spinal stenosis, displacement of lumbar intervertebral disc 1 Device 0 12/05/2017 Active Wheel Chair diana Indications: 12-05-2017 Kiana Maza [facility] ([id number]) Radiculopathy, lumbar region , Spinal stenosis, lumbar region, without neurogenic claudication , Displacement of lumbar 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thy Wheelchair with foot supports Dx: spinal stenosis, displacement of lumbar intervertebral disc 1 Device 0 12/05/2017 Active Wheel Chair diana Indications: 12-05-2017 Kiana Maza [facility] ([id number]) Radiculopathy, lumbar region , Spinal stenosis, lumbar region, without neurogenic claudication , Displacement of lumbar 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thy Wheelchair with foot supports Dx: spinal stenosis, displacement of lumbar intervertebral disc 1 Device 0 12/05/2017 Active Wheel Chair diana Indications: 12-05-2017 Kiana Maza [facility] ([id number]) Radiculopathy, lumbar region , Spinal stenosis, lumbar region, without neurogenic claudication , Displacement of lumbar 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thy Wheelchair with foot supports Dx: spinal stenosis, displacement of lumbar intervertebral disc 1 Device 0 12/05/2017 Active Wheel Chair diana Indications: 12-05-2017 Kiana Maza [facility] ([id number]) Radiculopathy, lumbar region , Spinal stenosis, lumbar region, without neurogenic claudication , Displacement of lumbar 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thy Wheelchair with foot supports Dx: spinal stenosis, displacement of lumbar intervertebral disc 1 Device 0 12/05/2017 Active Wheel Chair diana Indications: 12-05-2017 Kiana Maza [facility] ([id number]) Radiculopathy, lumbar region , Spinal stenosis, lumbar region, without neurogenic claudication , Displacement of lumbar 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thy Wheelchair with foot supports Dx: spinal stenosis, displacement of lumbar intervertebral disc 1 Device 0 12/05/2017 Active Wheel Chair diana Indications: 12-05-2017 Kiana Maza [facility] ([id number]) Radiculopathy, lumbar region , Spinal stenosis, lumbar region, without neurogenic claudication , Displacement of lumbar 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thy Wheelchair with foot supports Dx: spinal stenosis, displacement of lumbar intervertebral disc 1 Device 0 12/05/2017 Active Wheel Chair diana Indications: 12-05-2017 Kiana Maza [facility] ([id number]) Radiculopathy, lumbar region , Spinal stenosis, lumbar region, without neurogenic claudication , Displacement of lumbar 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thy Wheelchair with foot supports Dx: spinal stenosis, displacement of lumbar intervertebral disc 1 Device 0 12/05/2017 Active Wheel Chair diana Indications: 12-05-[address] [facility] [facility] ([id number]) Radiculopathy, lumbar region , Spinal stenosis, lumbar region, without neurogenic claudication , Displacement of lumbar 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thy Wheelchair with foot supports Dx: spinal stenosis, displacement of lumbar intervertebral disc 1 Device 0 12/05/2017 Active Wheel Chair diana Indications: 12-05-2017 Kiana Maza [facility] ([id number]) Radiculopathy, lumbar region , Spinal stenosis, lumbar region, without neurogenic claudication , Displacement of lumbar 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thy Wheelchair with foot supports Dx: spinal stenosis, displacement of lumbar intervertebral disc 1 Device 0 12/05/2017 Active Wheel Chair diana Indications: 12-05-2017 Kiana Maza [facility] ([id number]) Radiculopathy, lumbar region , Spinal stenosis, lumbar region, without neurogenic claudication , Displacement of lumbar 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thy Wheelchair with foot supports Dx: spinal stenosis, displacement of lumbar intervertebral disc 1 Device 0 12/05/2017 Active Wheel Chair diana Indications: 12-05-2017 Kiana Maza [facility] ([id number]) Radiculopathy, lumbar region , Spinal stenosis, lumbar region, without neurogenic claudication , Displacement of lumbar 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thy Wheelchair with foot supports Dx: spinal stenosis, displacement of lumbar intervertebral disc 1 Device 0 12/05/2017 Active Wheel Chair diana Indications: 12-05-2017 Kiana Maza [facility] ([id number]) Radiculopathy, lumbar region , Spinal stenosis, lumbar region, without neurogenic claudication , Displacement of lumbar 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thy Wheelchair with foot supports Dx: spinal stenosis, displacement of lumbar intervertebral disc 1 Device 0 12/05/2017 Active Wheel Chair diana Indications: 12-05-2017 Kiana Maza [facility] ([id number]) Radiculopathy, lumbar region , Spinal stenosis, lumbar region, without neurogenic claudication , Displacement of lumbar 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thy Wheelchair with foot supports Dx: spinal stenosis, displacement of lumbar intervertebral disc 1 Device 0 12/05/2017 Active Wheel Chair diana Indications: 12-05-2017 Kiana Maza [facility] ([id number]) Radiculopathy, lumbar region , Spinal stenosis, lumbar region, without neurogenic claudication , Displacement of lumbar 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thy Wheelchair with foot supports Dx: spinal stenosis, displacement of lumbar intervertebral disc 1 Device 0 12/05/2017 Active Wheel Chair diana Indications: 12-05-2017 Kiana Maza [facility] ([id number]) Radiculopathy, lumbar region , Spinal stenosis, lumbar region, without neurogenic claudication , Displacement of lumbar 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thy Wheelchair with foot supports Dx: spinal stenosis, displacement of lumbar intervertebral disc 1 Device 0 12/05/2017 Active Wheel Chair diana Indications: 12-05-2017 Kiana Maza [facility] ([id number]) Radiculopathy, lumbar region , Spinal stenosis, lumbar region, without neurogenic claudication , Displacement of lumbar 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thy Wheelchair with foot supports Dx: spinal stenosis, displacement of lumbar intervertebral disc 1 Device 0 12/05/2017 Active Wheel Chair diana Indications: 12-05-2017 Kiana Maza [facility] ([id number]) Radiculopathy, lumbar region , Spinal stenosis, lumbar region, without neurogenic claudication , Displacement of lumbar 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thy Wheelchair with foot supports Dx: spinal stenosis, displacement of lumbar intervertebral disc 1 Device 0 12/05/2017 Active Wheel Chair diana Indications: 12-05-2017 Kiana Maza [facility] ([id number]) Radiculopathy, lumbar region , Spinal stenosis, lumbar region, without neurogenic claudication , Displacement of lumbar 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thy Wheelchair with foot supports Dx: spinal stenosis, displacement of lumbar intervertebral disc 1 Device 0 12/05/2017 Active Comment: Wheelchair with foot support s Dx: spinal stenosis, displacement of lumbar intervertebral disc Problems Active Problems Category Problem Name Status Date Location Abdominal pain Abdominal pain Active [facility]inic ([id number]) Acute and unspecified Acute injury of kidney Active - [facility] renal failure (52998) Chronic kidney disease Chronic kidney disease Active 05-04-19 - [facility] stage 3 (89724) Complication of device; High output ileostomy Active 12-18-19 19 - [facility] implant or graft (92406) Complications of surgical Short bowel syndrome Active - [facility] procedures or medical (03727 ) care Conditions associated Dizziness and giddiness Active 05-16-19 - [facility] with dizziness or vertigo [facility] (02182) Congestive heart failure; Chronic diastolic heart Active 04-17 - [facility] nonhypertensive failure [facility] (75589) Coronary atherosclerosis Coronary Active 04-16-2016 - [facility]95637[facility] Diabetes mellitus without Type 2 diabetes mellitus Active - [facility] complication (18130) Disorders of lipid Hyperlipidemia Active 01-31-2005 - [facility] metabolism (31190) Esophageal disorders Gastroesophageal reflux Active [facility] disease (79486) Essential hypertension Essential hypertension Active [facility] (95469) Hyperplasia of prostate Benign prostatic Active 10-03-2014 - [facility] hyperplasia (84625) Malaise and fatigue Fatigue Active [facility] (36623) Mood disorders Depressive disorder Active 11-23-2018 - [facility] (80015) Nutritional deficiencies Malnutrition of mild Active 04-28-19 - [facility] degree ([place]arcon: 75% to (68384 ) less than 90% of standard weight) Other gastrointestinal Ileostomy present Active 02-01-2019 - [facility] disorders (67254) Other gastrointestinal Malabsorption - iron Active 01-12-2019 - [facility] disorders (15815) Other hereditary and Restless legs Active 09-07-2019 - [facility] degenerative nervous (71793) system conditions Other liver diseases Cirrhosis - Active 02-01-2019 - [facility] non-alcoholic (56072) Other liver diseases Esophageal varices in Active 12-09-2017 - [facility] cirrhosis of the liver (4419 5) Other liver diseases Elevated liver enzymes Active [facility] level (35325) Other lower respiratory Desaturation of blood Active [facility] disease (25015) Other nutritional; Hypoalbuminemia Active 03-22-2019 - [facility] endocrine; and metabolic (44 195) disorders Other nutritional; Obese class I Active 01-07-2019 - [facility] endocrine; and metabolic (44 195) disorders Other nutritional; Hypomagnesemia Active 01-05-2019 - [facility] endocrine; and metabolic (44 195) disorders Pancreatic disorders (not Pancreatic insufficiency Active [facility] diabetes) (48216) Peripheral and visceral Peripheral vascular Active 01-31-2005 - [facility] atherosclerosis disease (87929) Phlebitis; Portal vein thrombosis Active 06-11-2017 - [facility] (72461) thromboembolism Regional enteritis and Crohn's disease Active 04-02-2017 - [facility] System ulcerative colitis (96593) Residual codes; Chronic pain Active 10-19-2015 - [facility] inic unclassified (23753) Residual codes; Obstructive sleep apnea Active 06-07-2014 - [facility] unclassified syndrome (40875) Residual codes; Requires vaccination Active [facility] unclassified (54093) Spondylosis; Lumbar radiculopathy Active 11-05-2019 - [facility] intervertebral disc (49994) disorders; other back problems Thyroid disorders Hypothyroidism Active 10-14-2007 - [facility] (61333) Transient cerebral Transient cerebral Active 03-06-2010 - [facility] ischemia ischemia (75394) Unclassified Difficult intubation Active 03-31-2019 - [facility] (01609) Unclassified History of clinical Active 02-01-2019 - [facility] finding in subject (00430) Unclassified Patient encounter status Active 11-23-2018 - [facility] (76830) Unclassified Unknown / UNK(Unknown) Active 05-15-2017 - [facility] (72892) Past or Other Problems Category Problem Name Status Date Location Cancer; other and H/O: malignant Completed 11-23-2018 - [facility] unspecified primary neoplasm (80399) Deficiency and other Iron deficiency anemia Completed 01-12-2019 - [facility] anemia (14016) Fluid and electrolyte Dehydration Completed 12-17-2018 - [facility] disorders (04683) Intestinal obstruction Partial obstruction of Completed 03-20-19 - [facility] without hernia small bowel (87298) Neoplasms of Carcinoid tumor Completed 12-27-2010 - [facility] unspecified nature or (15965 ) uncertain behavior Other circulatory H/O: TIA Completed 06-16-2019 - [facility] disease (00940) Other circulatory Central venous [facility] disease catheter in situ (18239) Other nervous system Postoperative pain Completed 11-23-2018 - [facility] disorders (40242) Other screening for Platelet count below Completed 11-24-2018 - [facility] suspected conditions reference range (441 95) (not mental disorders or infectious disease) Residual codes; Preoperative state Completed 04-24-2019 - [facility] unclassified (69475) Residual codes; Insomnia Completed 11-24-2018 - [facility] unclassified (94399) Results Result Name Value Range Unit Interpretation Flag Date Location operative no on OPERATIVE NO Normal 11-29-2019 [facility] (29401) nursing prog on NURSING PROG Normal 11-29-2019 [facility] (37574) history physical on 2019-11-29 HISTORY PHYSICAL Normal 11-29-2019 [facility] (26001) preop/preproc covid on 2019-11-26 COVID 19 Result Negative for Negative for Normal 11-26-19 [facility] 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 CoV2) by PCR. Comment: Result Comment: This test wa s developed and its performance characteristics determined by [facility] [place]. This handy t has been authorized by FDA under an Emergency Use Authorization (EUA).This test has been validated in accordance with the FDA's Guidance Document Elías icy for Diagnostics Testing in Laboratories Certified to Perform High Co mplexity Testing under CLIA prior to Emergency use Authorization for Mancini virus Disease 2019 during the Public Health Emergency issued on 2019. 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 (19228) surgical pathology on 2019-11-22 SURGICAL PATHOLOGY Normal 11-22-2019 [facility] (03298) nursing prog on NURSING PROG Normal 11-22-2019 [facility] (38256) c difficile pcr on 2019-11-22 C difficile PCR Negative for C. Normal 11-22-19 [facility] difficile toxin by PCR [place] (56845) Comment: Performed By: #### CDPCR ### #[facility] [place], [place] [phone]- [phone] anes post on 2019-02-05 ANES POST Normal 11-22-2019 [facility] (08281) obsolete on 2019-11 OBSOLETE Normal 11-20-2019 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 CoV2) by PCR. Comment: Result Comment: This test wa s developed and its performance characteristics determined by [facility] [place]. This handy t has been authorized by FDA under an Emergency Use Authorization (EUA).This test has been validated in accordance with the FDA's Guidance Document Elías icy for Diagnostics Testing in Laboratories Certified to Perform High Co mplexity Testing under CLIA prior to Emergency use Authorization for Mancini virus Disease 2019 during the Public Health Emergency issued on 2019. 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 (72751) cnpn on 2019-11-16 CNPN Normal 11-16-2019 [facility] (82164) hosp on 2019-11-08 HOSP Normal 11-08-2019 [facility] (31924) progress on 2019-10 PROGRESS Normal 11-05-2019 [facility] (91602) obsolete on 2019-10 OBSOLETE Normal 11-05-2019 [facility] (05446) cnov on 2019-11-05 CNOV Normal 11-05-2019 [facility] (28835) cnpn on 2019-11-01 CNPN Normal 11-01-2019 [facility] (84519) cnpn on 2019-10-29 CNPN Normal 10-29-2019 [facility] (65963) cnpn on 2019-10-28 CNPN Normal 10-28-2019 [facility] (63443) progress on 2019-10 PROGRESS Normal 10-26-2019 [facility] (72502) pt ed on 2019-10-18 PT ED Normal 10-18-2019 [facility] (63480) PT ED Normal 10-18-2019 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 CoV2) by PCR. Comment: Result Comment: This test wa s developed and its performance characteristics determined by [facility] [place]. This handy t has been authorized by FDA under an Emergency Use Authorization (EUA).This test has been validated in accordance with the FDA's Guidance Document Elías icy for Diagnostics Testing in Laboratories Certified to Perform High Co mplexity Testing under CLIA prior to Emergency use Authorization for Mancini virus Disease 2019 during the Public Health Emergency issued on 2019. 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 (89578) cnpn on 2019-10-01 CNPN Normal 10-01-2019 [facility] (37285) progress on 2019-09 PROGRESS Normal 09-30-2019 [facility] (05601) progress on 2019-09 PROGRESS Normal 09-29-2019 [facility] (31383) cnovsp on 2019-09-18 2 CNOVSP Normal 09-29-2019 [facility] (20214) ld on 2019-09-22 LD 192 135-225 U/L Normal 09-22-2019 [facility] (08641) comp metabolic panel on 2019-09-22 Albumin [Mass/Vol] 3.9 3.9-4.9 g/dL Normal 09-22-2019 [facility] (40365) ALP [Catalytic 147 38-113 U/L High 09-22-2019 [facility] activity/Vol] [facility] (16442) ALT [Catalytic 72 10-54 U/L High 09-22-2019 [facility] activity/Vol] [facility] and (11790) Anion gap [Moles/Vol] 11 9-18 mmol/L Normal 09-22-[address] [facility] (76554) AST [Catalytic 88 14-40 U/L High 09-22-2019 [facility] activity/Vol] [facility] and (52296) Bilirubin [Mass/Vol] 0.4 0.2-1.3 mg/dL Normal 0 [facility] (96892) Calcium [Mass/Vol] 9.5 8.5-10.2 mg/dL Normal 09-22-2019 [facility] (68948) Chloride [Moles/Vol] 101 97-105 mmol/L Normal 0 [facility] (49929) CO2 [Moles/Vol] 26 22-30 mmol/L Normal 09-22-2019 [facility] (98997) Creatinine [Mass/Vol] 1.85 0.73-1.22 mg/dL High 09-22-[address] [facility] (02956) eGFR- Amer. 44 Normal 09-22-2019 [facility] (46027) GFR/1.73 sq M predicted 36 . Normal 2019 [facility] among non-blacks MDRD [place] (13328) (S/P/Bld) [Vol rate/Area] Comment: Result Comment: eGFR (Estima pratik GFR) Units of measure: mL/min/1.73 meters squaredeGFR is derived from the reexpressed MDRD Study equation using the following parameters: serum creatinine, age, gender and race. The creatinine assay has been calibrated to be traceable to IDMS.An eGFR <60 mL/min/1.73m2 for >3 months is consistent with chronic kidney disease. Refer to KDOQI guidelines for clinical inte rpretation.In patients with unstable renal function, e.g. those with ac cowlitz kidney injury, the eGFR may not accurately reflect actual GFR. Glucose [Mass/Vol] 123 74-99 mg/dL High 09-22-2019 [facility] (89957) Comment: Result Comment: The [place] Diabetes Association (ADA) provides guidance for cutoff values for fastin g glucose and random glucose. The ADA defines fasting as no caloric intake for at least 8 hours. Fasting plasma glucose results between 100 to 125 m g/dL indicate increased risk for diabetes (prediabetes).Fasting plasma glucose results greater than or equal to 126 mg/dL meet the criteria for diagnosis of diabetes. In the absence of unequivocal hyperglycemia, r esults should be confirmed by repeat testing. In a patient with classic sympt oms of hyperglycemia or hyperglycemic crisis, random plasma glucose result s greater than or equal to 200 mg/dL meet the criteria for diagnosis of di abetes.Reference: Standards of Medical Care in Diabetes 2016, [place] Diab etes Association. Diabetes Care. 2016.39(Suppl 1). Potassium [Moles/Vol] 4.1 3.7-5.1 mmol/L Normal 09-22-19 [facility] (82263) Protein [Mass/Vol] 6.8 6.3-8.0 g/dL Normal 09-22-2019 [facility] (20983) Sodium [Moles/Vol] 138 136-144 mmol/L Normal 09-22-2019 [facility] (45194) Urea nitrogen [Mass/Vol] 19 9-24 mg/dL Normal 09-21 [facility] (61446) cnpn on 2019-09-22 CNPN Normal 09-22-2019 [facility] (67415) chromogranin a on 2 Chromogranin A 1080 <98 ng/mL High 09-22-2019 [facility] (99969) Comment: Result Comment: Result reche cked.This test is performed using the [employer] [id number]-UT kit. Results ob tained with different methods or kits cannot be used interchangeably.This te st was developed and its performance characteristics determined b y [facility] ([facility]).It has not been cleared or approved by the FDA. [facility] is regulated under CLIA as qualified to perform high complexity testing.This test is used for clinical purposes. It should not be regarded as investiga tional or for research. Performed By: #### CHROMA ## ##[facility] [place], [place] [phone] cbc and differential on 2019-09-22 Abs Baso 0.06 <0.11 k/uL Normal 09-22-2019 [facility] (77355) Abs Zapata 0.49 <0.87 k/uL Normal 09-22-2019 [facility] (84444) Abs Neut 4.55 1.45-7.50 k/uL Normal 09-22-2019 [facility] (30470) Absolute nRBC <0.01 <0.01 Normal 09-22-2019 [facility] (24662) Basophils/100 WBC 1.0 % Normal 09-22-2019 [facility] (Bld) [place] (60690) DTYPE Auto Diff Normal 09-22-2019 [facility] (21260) Eosinophils (Bld) 0.15 <0.46 k/uL Normal 09-22-2019 [facility] [#/Vol] [place] (10403) Eosinophils/100 WBC 2.5 % Normal 09-22-2019 [facility] (Bld) [place] (24743) Erythrocyte 15.7 11.5-15.0 % High 09-22-2019 [facility] distribution width [facility] (92623) (RBC) [Ratio] Hematocrit (Bld) 37.2 39.0-51.0 % Low 09-22-2019 [facility] [Volume fraction] [facility] (85619) Hemoglobin (Bld) 12.5 13.0-17.0 g/dL Low 09-22-2019 [facility] [Mass/Vol] [place] (39292) Lymphocytes (Bld) 0.76 1.00-4.00 k/uL Low 09-22-2019 [facility] [#/Vol] [place] (93203) Lymphocytes/100 WBC 12.6 % Normal 09-22-2019 [facility] (Bld) [place] (91033) MCH (RBC) [Entitic 31.4 26.0-34.0 pG Normal 09-22-2019 [facility] mass] [place] (30086) MCHC (RBC) 33.6 30.5-36.0 g/dL Normal 09-22-2019 [facility] [Mass/Vol] [place] (50416) MCV (RBC) [Entitic 93.5 80.0-100.0 fL Normal 09-22-2019 [facility] vol] [place] (78029) Monocytes/100 WBC 8.2 % Normal 09-22-2019 [facility] (Bld) [place] (31524) Neutrophils/100 WBC 75.7 % Normal 09-22-2019 [facility] (Bld) [place] (16402) NRBCs 0.0 0 /100 WBC Normal 09-22-2019 [facility] (24244) Platelet mean volume 11.9 9.0-12.7 fL Normal 0 [facility] (Bld) [Entitic vol] [place] (37078) Platelets (Bld) 125 150-400 k/uL Low 09-22-2019 [facility] [#/Vol] [place] (36019) RBC (Bld) [#/Vol] 3.98 4.20-6.00 m/uL Low 09-22-2019 [facility] (05297) WBC (Bld) [#/Vol] 6.01 3.70-11.00 k/uL Normal 09-22-2019 [facility] (96451) cnpn on 2019-09-21 CNPN Normal 09-21-2019 [facility] (54153) obsolete on 2019-09 OBSOLETE Normal 09-20-2019 [facility] (48351) cnpn on 2019-09-20 CNPN Normal 09-20-2019 [facility] (24013) tsh on 2019-09-14 TSH Qn 1.890 0.270-4.200 uU/mL Normal 09-14-2019 [facility] (05931) Comment: Performed By: #### TSH, FT4 ####[facility] [address] [place], [place] [phone] hemoglobin a1c on HbA1c (Bld) [Mass fraction] 140 mg/dL Normal [facility] (39752) Comment: Result Comment: eAG: (Estima pratik average glucose) is a calculated value from HgbA1c and is mechanical service representative of the average blood glucose level in the last 2-3 month period. Performed By: #### HBA1C ### #[facility] [address] [place], [place] [phone] HbA1c (Bld) [Mass fraction] 6.5 4.3-5.6 % High [facility] (85035) Comment: Result Comment: [place] Nereida betes Association guidelines indicate that patients with HgbA1c in the range 5.7-6.4% are at increased risk for development of diabetes, and intervention by lifestyle modification may be beneficial. HgbA1c greater o r equal to 6.5% is considered diagnostic of diabetes. Performed By: #### HBA1C ### #[facility] [address] [place], [place] [phone] free t4 on Free T4 [Mass/Vol] 1.0 0.9-1.7 ng/dL Normal 09-14-2019 [facility] (43568) Comment: Performed By: #### TSH, FT4 ####[facility] [address] [place], [place] [phone] basic metabolic panl on 2019-09-14 Anion gap [Moles/Vol] 8 9-18 mmol/L Low 09-14-[address] [facility] (31242) Calcium [Mass/Vol] 8.9 8.5-10.2 mg/dL Normal 09-14-2019 [facility] (17430) Chloride [Moles/Vol] 104 97-105 mmol/L Normal 0 [facility] (76748) CO2 [Moles/Vol] 25 22-30 mmol/L Normal 09-14-2019 [facility] (92390) Creatinine [Mass/Vol] 1.95 0.73-1.22 mg/dL High 09-14-[address] [facility] (39714) eGFR- Amer. 41 Normal 09-14-2019 [facility] (66806) GFR/1.73 sq M predicted 34 . Normal 2019 [facility] among non-blacks MDRD [place] (73180) (S/P/Bld) [Vol rate/Area] Comment: Result Comment: eGFR (Estima pratik GFR) Units of measure: mL/min/1.73 meters squaredeGFR is derived from the reexpressed MDRD Study equation using the following parameters: serum creatinine, age, gender and race. The creatinine assay has been calibrated to be traceable to IDMS.An eGFR <60 mL/min/1.73m2 for >3 months is consistent with chronic kidney disease. Refer to KDOQI guidelines for clinical inte rpretation.In patients with unstable renal function, e.g. those with ac cowlitz kidney injury, the eGFR may not accurately reflect actual GFR. Glucose [Mass/Vol] 127 74-99 mg/dL High 09-14-2019 [facility] (32249) Comment: Result Comment: The [place] Diabetes Association (ADA) provides guidance for cutoff values for fastin g glucose and random glucose. The ADA defines fasting as no caloric intake for at least 8 hours. Fasting plasma glucose results between 100 to 125 m g/dL indicate increased risk for diabetes (prediabetes).Fasting plasma glucose results greater than or equal to 126 mg/dL meet the criteria for diagnosis of diabetes. In the absence of unequivocal hyperglycemia, r esults should be confirmed by repeat testing. In a patient with classic sympt oms of hyperglycemia or hyperglycemic crisis, random plasma glucose result s greater than or equal to 200 mg/dL meet the criteria for diagnosis of di abetes.Reference: Standards of Medical Care in Diabetes 2016, [place] Diab etes Association. Diabetes Care. 2016.39(Suppl 1). Potassium [Moles/Vol] 4.2 3.7-5.1 mmol/L Normal 09-14-[address] [facility] (77519) Sodium [Moles/Vol] 137 136-144 mmol/L Normal 09-14-2019 [facility] (40333) Urea nitrogen [Mass/Vol] 23 9-24 mg/dL Normal 09-13 [facility] (02193) progress on 2019-08 PROGRESS Normal 09-07-2019 [facility] (60864) PROGRESS Normal 09-07-2019 [facility] (55456) cnov on 2019-09-07 CNOV Normal 09-07-2019 [facility] (26246) progress on 2019-08 PROGRESS Normal 09-04-2019 [facility] (83483) progress on 2019-08 PROGRESS Normal 09-02-2019 [facility] (46412) cnpn on 2019-09-02 CNPN Normal 09-02-2019 [facility] (98626) cnov on 2019-09-02 CNOV Normal 09-02-2019 [facility] (46170) calprotectin, fecal on 2019-09-01 Calprotectin Comment INTERPRETIVE Normal 2019 [facility] INFORMATION: [facility] (20261) Comment: Result Comment: INTERPRETIVE INFORMATION:Calprotectin, Fecal<50.0 mg/kg : Fyuejq96.0-120.0 mg/kg: Bord evelyn. Test should be re-evaluated in 4-6 weeks.>120.0 mg/kg : Abnorma l Performed By: #### CALPRO, C DPCR ####[address] [address] [phone] Calprotectin Interp Abnormal Normal 09-01-2019 [facility] (32918) Comment: Performed By: #### CALPRO, C DPCR ####[address] [place] [place] [address] [phone] Protein [Mass/Vol] 196.8 <50.0 mg/kg High 09-01-2019 [facility] (04866) Comment: Performed By: #### CALPRO, C DPCR ####[facility] [address] [phone] c difficile pcr on 2019-09-01 C difficile PCR Negative for C. Normal 09-01-19 [facility] difficile toxin by PCR [place] (96897) Comment: Performed By: #### CALPRO, C DPCR ####[place] [id number] [place] [address] [phone] vitamin d 25 hydroxy on 2019-08-31 Vitamin D 25 Hydroxy 59.2 31.0-80.0 ng/mL Normal 0 [facility] (69848) Comment: Result Comment: Classificati on of 25 [place] Vitamin D status:Insufficiency/Moderat e Deficiency: < or = 30 ng/mLSufficiency/Optimal Levels: 31 to 80 ng/mLToxici ty: > 100 ng/mLTest performed by chemiluminescent immunoassay . Performed By: #### CMP, FERR , VITD, CRP, B12, IRON, CBCDIF ####[facility] [address], [place] [phone] vitamin b12 on 2019 Cobalamin (Vitamin B12) 163 726-1999 pg/mL Normal 2019 [facility] [Mass/Vol] [place] (76659) Comment: Performed By: #### CMP, FERR , VITD, CRP, B12, IRON, CBCDIF ####[facility], [place] [phone] progress on 2019-08 PROGRESS Normal 08-31-2019 [facility] (15872) PROGRESS HNO ID: [id number] Normal 08-31-2019 [facility] Author: Ronni Saha (Fel) ([id number]) Service: ? Author Type: Fellow Type: Progress Notes Filed: 09/02/2019 6:37 AM Note Text: OPENED IN ERROR iron and tibc on 05-09-13 Iron [Mass/Vol] 72 41-186 ug/dL Normal 08-31-2019 [facility] (29754) Comment: Performed By: #### CMP, FERR , VITD, CRP, B12, IRON, CBCDIF ####[facility] [address], [place] [phone] TIBC 438 232-386 ug/dL High 08-31-2019 [facility] (92373) Comment: Performed By: #### CMP, FERR , VITD, CRP, B12, IRON, CBCDIF ####[facility], [place] [phone] Transferrin Saturatn 16 15-57 % Normal 0 [facility] (05236) Comment: Performed By: #### CMP, FERR , VITD, CRP, B12, IRON, CBCDIF ####[facility] [address], [place] [phone] ferritin on 2019-08 Ferritin [Mass/Vol] 75.1 30.3-565.7 ng/mL Normal 0 [facility] (05309) Comment: Performed By: #### CMP, FERR , VITD, CRP, B12, IRON, CBCDIF ####[facility], [place] [phone] comp metabolic panel on 2019-08-31 Albumin [Mass/Vol] 4.2 3.9-4.9 g/dL Normal 08-31-2019 [facility] (17256) Comment: Performed By: #### CMP, FERR , VITD, CRP, B12, IRON, CBCDIF ####[facility], [place] [phone] ALP [Catalytic activity/Vol] 150 38-113 U/L High 0 08-31-2019 [facility] (56536) Comment: Performed By: #### CMP, FERR , VITD, CRP, B12, IRON, CBCDIF ####[facility], [place] [phone] ALT [Catalytic activity/Vol] 54 10-54 U/L Normal 0 08-31-2019 [facility] (74867) Comment: Performed By: #### CMP, FERR , VITD, CRP, B12, IRON, CBCDIF ####[facility] [address], [place] [phone] Anion gap [Moles/Vol] 11 9-18 mmol/L Normal 08-31-[address] [facility] (28808) Comment: Performed By: #### CMP, FERR , VITD, CRP, B12, IRON, CBCDIF ####[facility] [address], [place] [phone] AST [Catalytic activity/Vol] 48 14-40 U/L High 0 08-31-2019 [facility] (61622) Comment: Performed By: #### CMP, FERR , VITD, CRP, B12, IRON, CBCDIF ####[facility], [place] [phone] Bilirubin [Mass/Vol] 0.6 0.2-1.3 mg/dL Normal 0 [facility] (42264) Comment: Performed By: #### CMP, FERR , VITD, CRP, B12, IRON, CBCDIF ####[place] [address], [place] [phone] Calcium [Mass/Vol] 10.1 8.5-10.2 mg/dL Normal 08-31-2019 [facility] (04465) Comment: Performed By: #### CMP, FERR , VITD, CRP, B12, IRON, CBCDIF ####[place] [address], [place] [phone] Chloride [Moles/Vol] 103 97-105 mmol/L Normal 0 [facility] (91788) Comment: Performed By: #### CMP, FERR , VITD, CRP, B12, IRON, CBCDIF ####[facility], [place] [phone] CO2 [Moles/Vol] 24 22-30 mmol/L Normal 08-31-2019 [facility] [facility] ([address]11) Comment: Performed By: #### CMP, FERR , VITD, CRP, B12, IRON, CBCDIF ####[facility], [place] [phone] Creatinine [Mass/Vol] 2.05 0.73-1.22 mg/dL High 08-31-[address] [facility] (57306) Comment: Performed By: #### CMP, FERR , VITD, CRP, B12, IRON, CBCDIF ####[place] [id number], [place] [phone] eGFR- Amer. 39 Normal 08-31-2019 [facility] (46946) Comment: Performed By: #### CMP, FERR , VITD, CRP, B12, IRON, CBCDIF ####[facility] [address]CHam[address], [place] [phone] GFR/1.73 sq M predicted among 32 . Normal 08-31-2019 [facility] non-blacks MDRD (S/P/Bld) [Vol (60505) rate/Area] Comment: Result Comment: eGFR (Estima pratik GFR) Units of measure: mL/min/1.73 meters squaredeGFR is derived from the reexpressed MDRD Study equation using the following parameters: serum creatinine, age, gender and race. The creatinine assay has been calibrated to be traceable to IDMS.An eGFR <60 mL/min/1.73m2 for >3 months is consistent with chronic kidney disease. Refer to KDOQI guidelines for clinical inte rpretation.In patients with unstable renal function, e.g. those with ac cowlitz kidney injury, the eGFR may not accurately reflect actual GFR. Performed By: #### CMP, FERR , VITD, CRP, B12, IRON, CBCDIF ####[facility] [place], [place] [phone] Glucose [Mass/Vol] 127 74-99 mg/dL High 08-31-2019 [facility] (68724) Comment: Result Comment: The [place] Diabetes Association (ADA) provides guidance for cutoff values for fastin g glucose and random glucose. The ADA defines fasting as no caloric intake for at least 8 hours. Fasting plasma glucose results between 100 to 125 m g/dL indicate increased risk for diabetes (prediabetes).Fasting plasma glucose results greater than or equal to 126 mg/dL meet the criteria for diagnosis of diabetes. In the absence of unequivocal hyperglycemia, r esults should be confirmed by repeat testing. In a patient with classic sympt oms of hyperglycemia or hyperglycemic crisis, random plasma glucose result s greater than or equal to 200 mg/dL meet the criteria for diagnosis of di abetes.Reference: Standards of Medical Care in Diabetes 2016, [place] Diab etes Association. Diabetes Care. 2016.39(Suppl 1). Performed By: #### CMP, FERR , VITD, CRP, B12, IRON, CBCDIF ####[facility] [address], [place] [phone] Potassium [Moles/Vol] 5.0 3.7-5.1 mmol/L Normal 08-31-19 [facility] (07618) Comment: Performed By: #### CMP, FERR , VITD, CRP, B12, IRON, CBCDIF ####[place] [address], [place] [phone] Protein [Mass/Vol] 7.6 6.3-8.0 g/dL Normal 08-31-2019 [facility] (91555) Comment: Performed By: #### CMP, FERR , VITD, CRP, B12, IRON, CBCDIF ####[place] [address], [place] [phone] Sodium [Moles/Vol] 138 136-144 mmol/L Normal 08-31-2019 [facility] (83687) Comment: Performed By: #### CMP, FERR , VITD, CRP, B12, IRON, CBCDIF ####[place] [address], [place] [phone] Urea nitrogen [Mass/Vol] 26 9-24 mg/dL High 08-30 [facility] (68855) Comment: Performed By: #### CMP, FERR , VITD, CRP, B12, IRON, CBCDIF ####[place] [address] [place], [place] [phone] cbc and differential on 2019-08-31 Abs Baso 0.05 <0.11 k/uL Normal 08-31-2019 [facility] (71247) Comment: Performed By: #### CMP, FERR , VITD, CRP, B12, IRON, CBCDIF ####[place] [address], [place] [phone] Abs Zapata 0.60 <0.87 k/uL Normal 08-31-2019 [facility] (31038) Comment: Performed By: #### CMP, FERR , VITD, CRP, B12, IRON, CBCDIF ####[facility]levelJohn [place] [phone] Abs Neut 4.56 1.45-7.50 k/uL Normal 08-31-2019 [facility] (35582) Comment: Performed By: #### CMP, FERR , VITD, CRP, B12, IRON, CBCDIF ####[place] [address] [place] [phone] Absolute nRBC <0.01 <0.01 Normal 08-31-2019 [facility] (34850) Comment: Performed By: #### CMP, FERR , VITD, CRP, B12, IRON, CBCDIF ####[place] [address] [place] [phone] Basophils/100 WBC (Bld) 0.8 % Normal 2019 [facility] (09592) Comment: Performed By: #### CMP, FERR , VITD, CRP, B12, IRON, CBCDIF ####[place] [address] [place] [phone] DTYPE Auto Diff Normal 08-31-2019 [facility] (97709) Comment: Performed By: #### CMP, FERR , VITD, CRP, B12, IRON, CBCDIF ####[place] [address]level[address] [place] [phone] Eosinophils (Bld) [#/Vol] 0.16 <0.46 k/uL Normal 08-17 [facility] (51513) Comment: Performed By: #### CMP, FERR , VITD, CRP, B12, IRON, CBCDIF ####[place] [address], [place] [phone] Eosinophils/100 WBC (Bld) 2.5 % Normal 08-17 [facility] (68326) Comment: Performed By: #### CMP, FERR , VITD, CRP, B12, IRON, CBCDIF ####[place] [address]ClevelCe[place], [place] [phone] Erythrocyte distribution 14.5 11.5-15.0 % Normal 08-30 [facility] width (RBC) [Ratio] [place] (66021) Comment: Performed By: #### CMP, FERR , VITD, CRP, B12, IRON, CBCDIF ####[place] [address], [place] [phone] Hematocrit (Bld) [Volume 41.1 39.0-51.0 % Normal 08-30 [facility] fraction] [place] (00036) Comment: Performed By: #### CMP, FERR , VITD, CRP, B12, IRON, CBCDIF ####[place] [address], [place] [phone] Hemoglobin (Bld) 13.4 13.0-17.0 g/dL Normal 08-31-2019 [facility] [Mass/Vol] [place] (65357) Comment: Performed By: #### CMP, FERR , VITD, CRP, B12, IRON, CBCDIF ####[place] [address], [place] [phone] Lymphocytes (Bld) [#/Vol] 0.97 1.00-4.00 k/uL Low 08-17 [facility] (11365) Comment: Performed By: #### CMP, FERR , VITD, CRP, B12, IRON, CBCDIF ####[place] [address], [place] [phone] Lymphocytes/100 WBC (Bld) 15.3 % Normal 08-17 [facility] (22205) Comment: Performed By: #### CMP, FERR , VITD, CRP, B12, IRON, CBCDIF ####[facility]Ce[place], [place] [phone] MCH (RBC) [Entitic mass] 30.6 26.0-34.0 pG Normal 08-30 [facility] (97147) Comment: Performed By: #### CMP, FERR , VITD, CRP, B12, IRON, CBCDIF ####[facility] [address]ClevelCe[place], [place] [phone] MCHC (RBC) [Mass/Vol] 32.6 30.5-36.0 g/dL Normal 08-31-19 [facility] (42701) Comment: Performed By: #### CMP, FERR , VITD, CRP, B12, IRON, CBCDIF ####[facility]levelCe[place], [place] [phone] MCV (RBC) [Entitic vol] 93.8 80.0-100.0 fL Normal 08-30 [facility] (69734) Comment: Performed By: #### CMP, FERR , VITD, CRP, B12, IRON, CBCDIF ####[facility], [place] [phone] Monocytes/100 WBC (Bld) 9.5 % Normal 2019 [facility] (51705) Comment: Performed By: #### CMP, FERR , VITD, CRP, B12, IRON, CBCDIF ####[facility], [place] [phone] Neutrophils/100 WBC (Bld) 71.9 % Normal 08-17 [facility] (59923) Comment: Performed By: #### CMP, FERR , VITD, CRP, B12, IRON, CBCDIF ####[facility], [place] [phone] NRBCs 0.0 0 /100 WBC Normal 08-31-2019 [facility] (87768) Comment: Performed By: #### CMP, FERR , VITD, CRP, B12, IRON, CBCDIF ####[facility], [place] [phone] Platelet mean volume 12.1 9.0-12.7 fL Normal 0 [facility] (Bld) [Entitic vol] [place] (07663) Comment: Performed By: #### CMP, FERR , VITD, CRP, B12, IRON, CBCDIF ####[facility], [place] [phone] Platelets (Bld) [#/Vol] 131 150-400 k/uL Low 2019 [facility] (97410) Comment: Performed By: #### CMP, FERR , VITD, CRP, B12, IRON, CBCDIF ####[facility], [place] [phone] RBC (Bld) [#/Vol] 4.38 4.20-6.00 m/uL Normal 08-31-2019 [facility] (37937) Comment: Performed By: #### CMP, FERR , VITD, CRP, B12, IRON, CBCDIF ####[facility], [place] [phone] WBC (Bld) [#/Vol] 6.34 3.70-11.00 k/uL Normal 08-31-2019 [facility] (59413) Comment: Performed By: #### CMP, FERR , VITD, CRP, B12, IRON, CBCDIF ####[facility], [place] [phone] c-reactive protein on 2019-08-31 CRP [Mass/Vol] 0.3 <0.9 mg/dL Normal 08-31-2019 [facility] (11521) Comment: Performed By: #### CMP, FERR , VITD, CRP, B12, IRON, CBCDIF ####[facility], [place] [phone] lipid panel, basic on 2019-08-30 Cholesterol [Mass/Vol] 116 <200 mg/dL Normal 08-29- 020 [facility] (81449) Comment: Result Comment: <200 mg/dL, Desirable 200-239 mg/dL, Borderline high>239 mg/dL, High Performed By: #### LIPB, PSA S1, CMP ####[place] [address] [place] [address] [phone] Cholesterol in HDL 63 >39 mg/dL Normal 08-30-2019 [facility] [Mass/Vol] (21939) Comment: Result Comment: 40-59 mg/dL, Acceptable>59 mg/dL, High: Negative risk factor for coronary heart disease<4 0 mg/dL, Low: Positive risk factor for coronary heart disease Performed By: #### LIPB, PSA S1, CMP ####[place] [address] [phone] Cholesterol in LDL 29 <100 mg/dL Normal 08-30-2019 [facility] [Mass/Vol] [place] (46514) Comment: Result Comment: <100 mg/dL, Optimal 100-129 mg/dL, Near optimal/above optimal 130-159 mg/dL, Borde rline high 160-189 mg/dL, High>189 mg/dL, Very highSecondary prevention opt imal LDL Cholesterol levels are recommended to be < 70 mg/dL Performed By: #### LIPB, PSA S1, CMP ####[place] [address] [phone] Fasting Time 16 hrs Normal 08-30-2019 [facility] (51398) Comment: Performed By: #### LIPB, PSA S1, CMP ####[place] [address] [phone] LDL:HDL Ratio 0.46 <2.54 Normal 08-30-2019 [facility] (14452) Comment: Result Comment: Reference:1. National Cholesterol Education Program ATP III Guideline At-A-Glance Quick Desk Reference: National Heart, Lung, and Blood [place]. National [facility] es of Health. 2001: NIH Publication No. 01-3305.2. An International Atherosclerosis Society position paper: global recommendations for the june gement of dyslipidemia: executive summary, Atherosclerosis. 2014: 232(2 ):410-413. Performed By: #### LIPB, PSA S1, CMP ####[place] [address] [place] [address] [phone] Non HDL Cholesterol 53 <130 mg/dL Normal 08-30-2019 [facility] (54254) Comment: Result Comment: <130 mg/dL, Optimal 130-159 mg/dL, Near optimal/above optimal 160-189 mg/dL, Borde rline high 190-219 mg/dL, High>219 mg/dL, Very highSecondary prevention opt imal non HDL Cholesterol levels are recommended to be < 100 mg/dL Performed By: #### LIPB, PSA S1, CMP ####[place] [address] [phone] TC:HDL Ratio 1.84 <5.10 Normal 08-30-2019 [facility] (98850) Comment: Performed By: #### LIPB, PSA S1, CMP ####[place] [address] [address] [phone] Triglyceride [Mass/Vol] 119 <150 mg/dL Normal 2019 [facility] (33584) Comment: Result Comment: <150 mg/dL, Normal 150-199 mg/dL, Borderline high 200-499 mg/dL, High>499 mg/dL, Very high Performed By: #### LIPB, PSA S1, CMP ####[place] [address] [phone] VLDL Cholesterol 24 <30 mg/dL Normal 08-30-2019 [facility] (81028) Comment: Performed By: #### LIPB, PSA S1, CMP ####[place] [address] [address] [phone] comp metabolic panel on 2019-08-30 Albumin [Mass/Vol] 4.2 3.9-4.9 g/dL Normal 08-30-2019 [facility] (10932) Comment: Performed By: #### LIPB, PSA S1, CMP ####[address] [place], [place] [phone] ALP [Catalytic activity/Vol] 144 38-113 U/L High 0 08-30-2019 [facility] (55866) Comment: Performed By: #### LIPB, PSA S1, CMP ####[place] [address] [phone] ALT [Catalytic activity/Vol] 57 10-54 U/L High 0 08-30-2019 [facility] (08667) Comment: Performed By: #### LIPB, PSA S1, CMP ####[place] [address] [phone] Anion gap [Moles/Vol] 14 9-18 mmol/L Normal 08-30-[address] [facility] (05574) Comment: Performed By: #### LIPB, PSA S1, CMP ####[place] [address] [phone] AST [Catalytic activity/Vol] 50 14-40 U/L High 0 08-30-2019 [facility] (03952) Comment: Performed By: #### LIPB, PSA S1, CMP ####[place] [address] [phone] Bilirubin [Mass/Vol] 0.5 0.2-1.3 mg/dL Normal 0 [facility] (33147) Comment: Performed By: #### LIPB, PSA S1, CMP ####[place] [address] [phone] Calcium [Mass/Vol] 9.9 8.5-10.2 mg/dL Normal 08-30-2019 [facility] (65660) Comment: Performed By: #### LIPB, PSA S1, CMP ####[place] [address] [phone] Chloride [Moles/Vol] 100 97-105 mmol/L Normal 0 [facility] (94401) Comment: Performed By: #### LIPB, PSA S1, CMP ####[facility] [address]C[place] [place] [address] [phone] CO2 [Moles/Vol] 25 22-30 mmol/L Normal 08-30-2019 [facility] (72782) Comment: Performed By: #### LIPB, PSA S1, CMP ####[facility] [address]C[place] [place] [address] [phone] Creatinine [Mass/Vol] 1.92 0.73-1.22 mg/dL High 08-30-[address] [facility] (56143) Comment: Performed By: #### LIPB, PSA S1, CMP ####[facility] [place] [address] [phone] eGFR- Amer. 42 Normal 08-30-2019 [facility] (39410) Comment: Performed By: #### LIPB, PSA S1, CMP ####[facility] [address]C[place] [address] [phone] GFR/1.73 sq M predicted among 35 . Normal 08-30-2019 [facility] non-blacks MDRD (S/P/Bld) [Vol (58343) rate/Area] Comment: Result Comment: eGFR (Estima pratik GFR) Units of measure: mL/min/1.73 meters squaredeGFR is derived from the reexpressed MDRD Study equation using the following parameters: serum creatinine, age, gender and race. The creatinine assay has been calibrated to be traceable to IDMS.An eGFR <60 mL/min/1.73m2 for >3 months is consistent with chronic kidney disease. Refer to KDOQI guidelines for clinical inte rpretation.In patients with unstable renal function, e.g. those with ac cowlitz kidney injury, the eGFR may not accurately reflect actual GFR. Performed By: #### LIPB, PSA S1, CMP ####[facility] [address] [place] [address] [phone] Glucose [Mass/Vol] 124 74-99 mg/dL High 08-30-2019 [facility] (00797) Comment: Result Comment: The [place] Diabetes Association (ADA) provides guidance for cutoff values for fastin g glucose and random glucose. The ADA defines fasting as no caloric intake for at least 8 hours. Fasting plasma glucose results between 100 to 125 m g/dL indicate increased risk for diabetes (prediabetes).Fasting plasma glucose results greater than or equal to 126 mg/dL meet the criteria for diagnosis of diabetes. In the absence of unequivocal hyperglycemia, r esults should be confirmed by repeat testing. In a patient with classic sympt oms of hyperglycemia or hyperglycemic crisis, random plasma glucose result s greater than or equal to 200 mg/dL meet the criteria for diagnosis of di abetes.Reference: Standards of Medical Care in Diabetes 2016, [place] Diab etes Association. Diabetes Care. 2016.39(Suppl 1). Performed By: #### LIPB, PSA S1, CMP ####[facility] [place] [address] [phone] Potassium [Moles/Vol] 4.5 3.7-5.1 mmol/L Normal 08-30-[address] [facility] (94280) Comment: Performed By: #### LIPB, PSA S1, CMP ####[facility] [place] [address] [phone] Protein [Mass/Vol] 7.3 6.3-8.0 g/dL Normal 08-30-2019 [facility] (60973) Comment: Performed By: #### LIPB, PSA S1, CMP ####[facility] [address] [place] [address] [phone] Sodium [Moles/Vol] 139 136-144 mmol/L Normal 08-30-2019 [facility] (11748) Comment: Performed By: #### LIPB, PSA S1, CMP ####[facility] [address] [place] [address] [phone] Urea nitrogen [Mass/Vol] 27 9-24 mg/dL High 08-29 [facility] (67686) Comment: Performed By: #### LIPB, PSA S1, CMP ####[facility] [address] [place] [address] [phone] + cbc o n 2019-08-30 Absol Gran Count 4.99 1.45-7.50 k/uL Normal 08-30-2019 [facility] (66683) Absolute nRBC 0.02 <0.01 k/uL High 08-30-2019 [facility] (80886) Erythrocyte distribution 14.7 11.5-15.0 % Normal 08-29 [facility] width (RBC) [Ratio] [place] (95337) Hematocrit (Bld) [Volume 40.3 39.0-51.0 % Normal 08-29 [facility] fraction] [place] (23916) Hemoglobin (Bld) 13.4 13.0-17.0 g/dL Normal 08-30-2019 [facility] [Mass/Vol] [place] (33151) MCH (RBC) [Entitic mass] 31.2 26.0-34.0 pG Normal 08-29 [facility] (93730) MCHC (RBC) [Mass/Vol] 33.3 30.5-36.0 g/dL Normal 08-30-[address] [facility] (62896) MCV (RBC) [Entitic vol] 93.7 80.0-100.0 fL Normal 08-29 [facility] (08832) Platelet mean volume 12.6 9.0-12.7 fL Normal 0 [facility] (Bld) [Entitic vol] [place] (23432) Platelets (Bld) [#/Vol] 149 150-400 k/uL Low 2019 [facility] (16384) RBC (Bld) [#/Vol] 4.30 4.20-6.00 m/uL Normal 08-30-2019 [facility] (71125) WBC (Bld) [#/Vol] 7.06 3.70-11.00 k/uL Normal 08-30-2019 [facility] (31611) cnpn on 2019-08-23 CNPN Normal 08-23-2019 [facility] (50047) cnpn on 2019-08-04 CNPN Normal 08-04-2019 [facility] (86028) obsolete on 2019-07 OBSOLETE Normal 08-02-2019 [facility] (79739) obsolete on 2019-07 OBSOLETE Normal 07-29-2019 [facility] (70289) cnpn on 2019-07-27 CNPN Normal 07-27-2019 [facility] (34496) ir cvc tunnel w/o port remove on 2019-07-26 IR CVC TUNNEL * * *Final Report* * * Normal [facility] W/O PORT REMOVE DATE OF EXAM: Jul 26 2019 12:18PM (10621) MDA 7670 - IR CVC TUNNEL W/O PORT REMOVE / [id number] PROCEDURE REASON: ENCOUNTER FOR CENTRAL LINE CARE * * * * Physician Interpretation * * * * Procedure: Removal of tunneled catheter performed on 020. Indication: 69-year-old man with history of malnutrition and dehydration. Status post Abdullahi catheter placement on 04/29/2019. Cathet er is no longer required. Operators: Laura Mullen MD Procedure/Findings: The procedure was performed in the [facility]. Local anesthesia was obtained using 1% lidocaine. The right upper chest and existing catheter were prepped and draped in the usual steri le fashion. The catheter cuff was mobilized using blunt dissection. The catheter was withdrawn and hemostasis was achieved using manual compressi on at the right internal jugular vein access site. The existing Hickma n catheter was removed in its entirety. There was no purulence at the tunnel exit site. The tunnel s ite was dressed in the usual fashion. There were no immediate complications. IMPRESSION: Successful removal of a right IJ tunneled central venous cat heter. Chemist Instrumentation: PSCB Transcribe Date/Time: Jul 26 2019 1:35P Dictated by : LAURA MULLEN MD This examination was interpreted and the report reviewed and electronically signed by: LAURA MULLEN MD on Jul 26 2019 1:37PM EST [id number] hosp on 2019-07-23 HOSP Patient:Venkata Leal Normal 2019 [facility] ) Height:5' 10(1.778 m) Weight:208 lb (94.348 kg) Outpatient Medications as of 07/29/19: BIPAP oxyCODONE IR (ROXICODONE) 5 mg immediate release tablet spironolactone (ALDACTONE) 25 mg tablet Psyllium Seed-Sucrose (METAMUCIL SUNRISE) powd diphenoxylate-atropine (LOMOTIL) 2.5-0.025 mg per tablet loperamide (IMODIUM A-D) 2 mg cap(s) NaCl 0.9% (NORMAL SALINE FLUSH) tamsulosin ER (FLOMAX) 0.4 mg sodium bicarbonate 650 mg tablet dicyclomine (BENTYL) 10 mg capsule amLODIPine (NORVASC) 5 mg tablet gabapentin (NEURONTIN) 300 mg capsule gabapentin (NEURONTIN) 100 mg capsule insulin aspart (NOVOLOG FLEXPEN U-100 INSULIN SUBCUTANEOUS) Insulin Mackay, Disposable, (BD ULTRA-FINE TIESHA PEN NEEDLE) 32 gauge x 5/32 insulin aspart protamine-insulin aspart (NovoLOG 70-30) 10 0 unit/mL flexpen blood sugar diagnostic (ONETOUCH VERIO) test strip lancets (ONE TOUCH DELICA) 33 gauge [facility] cholecalciferol, Vitamin D3, (VITAMIN D3) 1,250 mcg (50,000 unit) cap capsule cyanocobalamin, vitamin B-12, (VITAMIN B-12 INJECTION) furosemide (LASIX) 20 mg tablet rosuvastatin (CRESTOR) 5 mg tablet hiktvf-anvphpln-iuildiu (CREON 24) 24,000-76,000 -120,000 un it cpDR ferrous sulfate 325 mg (65 mg iron) EC tablet ondansetron (ZOFRAN) [address] (PROTONIX) 20 mg tablet lanolin (SKIN PROTECTIVE PASTE) pste DULoxetine (CYMBALTA) 20 mg capsule finasteride (PROSCAR) 5 mg tablet metoprolol tartrate, short acting, (LOPRESSOR) 25 mg tablet COMPOUNDED PRESCRIPTION acetaminophen (TYLENOL) 325 mg tablet sertraline (ZOLOFT) 100 mg tablet nicotine polacrilex (NICORETTE) 2 mg gum levothyroxine (LEVOXYL) 137 mcg tablet melatonin 10 mg subl clopidogrel (PLAVIX) 75 mg tablet Wheel Chair diana OCTREOTIDE ACETATE (SANDOSTATIN INJECTION) COMPOUNDED PRESCRIPTION Lancing Device [facility] Admission/Clinic Administered Medications as of 07/29/19: Patient has no admission medications. Problem List: PVD (peripheral vascular disease) (HCC) [I73.9] HLD (hyperlipidemia) [E78.5] Essential hypertension [I10] GERD (gastroesophageal reflux disease) [K21.9] CAD (coronary artery disease) [I25.10] Hypothyroidism [E03.9] TIA (transient ischemic attack) [G45.9] Carcinoid tumor [D3A.00] Pancreatic insufficiency [K86.89] Vitamin B12 deficiency [E53.8] ALEXIS (obstructive sleep apnea) [G47.33] BPH (benign prostatic hyperplasia) [N40.0] Chronic pain [G89.29] 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, with long-term current use of insulin (HCC) [E11.42, Z79.4] S/P coronary artery stent placement [Z95.5] Chronic diastolic heart failure (HCC) [I50.32] Stage 3 chronic kidney disease (HCC) [N18.3] Crohn's disease of small intestine with intestinal obstruction (HCC) [K50.012] 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, 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] Crohn's disease (HCC) [K50.90] Post-op pain [G89.18] Antiplatelet or antithrombotic long-term use [Z79.02] History of bladder cancer [Z85.51] Depression [F32.9] Insomnia [G47.00] Thrombocytopenia (HCC) [D69.6] Hyperkalemia [E87.5] 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, 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] CKD (chronic kidney disease) stage 3, GFR 30-59 ml/min (HCC) [N18.3] Dehydration [E86.0] LOR (acute kidney injury) (HCC) [N17.9] Hypomagnesemia [E83.42] Obesity, Class I, BMI 30-34.9 [E66.9] Iron deficiency anemia [D50.9] Iron malabsorption [K90.9] Attention to ileostomy (HCC) [Z43.2] History of nicotine use [Z87.898] 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) [K75.81, K74.60] Central venous catheter in place [Z78.9] Bowel obstruction (HCC) [K56.609] Partial small bowel obstruction (HCC) [K56.600] Hypoalbuminemia [E88.09] Difficult intubation [T88.4XXA] SBO (small bowel obstruction) (HCC) [K56.609] Pre-operative clearance [Z01.818] Malnutrition of mild degree (HCC) [E44.1] 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 Amauri Mancia, MARIO Lara Ma 07/27/2019 2:19 PM Signed Left VM for patient to contact office to inform of below. Ryanne Holden RN 07/27/2019 2:43 PM Signed Patient's notified of r esults and provider's instructions. verbalizes understanding. Ryanne Holden RN Progress Notes ([employer] MANAGEMENT): Radha Edward, RN, RN 07/21/2019 5:44 PM Signed HIGH RISK CHRONIC DISEASE MONITORING Provider Action/FYI: Contact made with patient: N o, due to non-contact x 2 attempts removed from CDM call list Outreach Ended comp metabolic panel on 2019-07-22 Albumin [Mass/Vol] 4.1 3.9-4.9 g/dL Normal 07-22-2019 [facility] ([id number]) Comment: Performed By: #### CMP, CBCD IF ####[facility] [place], [place] [phone]- [phone] ALP [Catalytic activity/Vol] 175 38-113 U/L High 0 07-22-2019 [facility] (43195) Comment: Performed By: #### CMP, CBCD IF ####[place] [address] [address], [place] [phone] ALT [Catalytic activity/Vol] 68 10-54 U/L High 0 07-22-2019 [facility] ([id number]) Comment: Performed By: #### CMP, CBCD IF ####[place] [address], [place] [phone] Anion gap [Moles/Vol] 12 9-18 mmol/L Normal 07-22-19 [facility] (53524) Comment: Performed By: #### CMP, CBCD IF ####[place] [address] [place], [place] [phone]- [phone] AST [Catalytic activity/Vol] 57 14-40 U/L High 0 07-22-2019 [facility] (26431) Comment: Performed By: #### CMP, CBCD IF ####[place] [address] [place], [place] [phone] Bilirubin [Mass/Vol] 0.4 0.2-1.3 mg/dL Normal 0 [facility] (32001) Comment: Performed By: #### CMP, CBCD IF ####[place] [address] [place], [place] [phone]- [phone] Calcium [Mass/Vol] 9.1 8.5-10.2 mg/dL Normal 07-22-2019 [facility] (85917) Comment: Performed By: #### CMP, CBCD IF ####[place] [address] [place], [place] [phone]- [phone] Chloride [Moles/Vol] 105 97-105 mmol/L Normal 0 [facility] (19198) Comment: Performed By: #### CMP, CBCD IF ####[place] [address], [place] [phone]- [phone] CO2 [Moles/Vol] 24 22-30 mmol/L Normal 07-22-2019 [facility] (39938) Comment: Performed By: #### CMP, CBCD IF ####[facility] [place], [place] [phone]- [phone] Creatinine [Mass/Vol] 1.71 0.73-1.22 mg/dL High 07-22-[address] [facility] (92571) Comment: Performed By: #### CMP, CBCD IF ####[facility], [place] [phone] eGFR- Amer. 48 Normal 07-22-2019 [facility] (92893) Comment: Performed By: #### CMP, CBCD IF ####[facility] [place], [place] [phone]- [phone] GFR/1.73 sq M predicted among 40 . Normal 07-22-2019 [facility] non-blacks MDRD (S/P/Bld) [Vol (79163) rate/Area] Comment: Result Comment: eGFR (Estima pratki GFR) Units of measure: mL/min/1.73 meters squaredeGFR is derived from the reexpressed MDRD Study equation using the following parameters: serum creatinine, age, gender and race. The creatinine assay has been calibrated to be traceable to IDMS.An eGFR <60 mL/min/1.73m2 for >3 months is consistent with chronic kidney disease. Refer to KDOQI guidelines for clinical inte rpretation.In patients with unstable renal function, e.g. those with ac cowlitz kidney injury, the eGFR may not accurately reflect actual GFR. Performed By: #### CMP, CBCD IF ####[facility] [place], [place] [phone]- [phone] Glucose [Mass/Vol] 173 74-99 mg/dL High 07-22-2019 [facility] (97357) Comment: Result Comment: The [place] [employer] (ADA) provides guidance for cutoff values for fastin g glucose and random glucose. The ADA defines fasting as no caloric intake for at least 8 hours. Fasting plasma glucose results between 100 to 125 m g/dL indicate increased risk for diabetes (prediabetes).Fasting plasma glucose results greater than or equal to 126 mg/dL meet the criteria for diagnosis of diabetes. In the absence of unequivocal hyperglycemia, r esults should be confirmed by repeat testing. In a patient with classic sympt oms of hyperglycemia or hyperglycemic crisis, random plasma glucose result s greater than or equal to 200 mg/dL meet the criteria for diagnosis of di abetes.Reference: Standards of Medical Care in Diabetes 2016, [place] Diab etes Association. Diabetes Care. 2016.39(Suppl 1). Performed By: #### CMP, CBCD IF ####[facility], [place] [phone]- [phone] Potassium [Moles/Vol] 4.2 3.7-5.1 mmol/L Normal 07-22-19 [facility] (14319) Comment: Performed By: #### CMP, CBCD IF ####[facility], [place] [phone]- [phone] Protein [Mass/Vol] 6.1 6.3-8.0 g/dL Low 07-22-2019 [facility] (20027) Comment: Performed By: #### CMP, CBCD IF ####[facility] [address], [place] [phone]- [phone] Sodium [Moles/Vol] 141 136-144 mmol/L Normal 07-22-2019 [facility] (93432) Comment: Performed By: #### CMP, CBCD IF ####[facility] [address], [place] [phone]- [phone] Urea nitrogen [Mass/Vol] 21 9-24 mg/dL Normal 07-21 [facility] (68188) Comment: Performed By: #### CMP, CBCD IF ####[facility] [address], [place] [phone] cbc and differential on 2019-07-22 Abs Baso 0.04 <0.11 k/uL Normal 07-22-2019 [facility] (28568) Comment: Performed By: #### CMP, CBCD IF ####[place] [address] [place] [phone] Abs Zapata 0.57 <0.87 k/uL Normal 07-22-2019 [facility] (14541) Comment: Performed By: #### CMP, CBCD IF ####[place] [address] [phone] Abs Neut 4.42 1.45-7.50 k/uL Normal 07-22-2019 [facility] (73557) Comment: Performed By: #### CMP, CBCD IF ####[place] [address] [phone]- [phone] Absolute nRBC <0.01 <0.01 Normal 07-22-2019 [facility] (11650) Comment: Performed By: #### CMP, CBCD IF ####[place] [address] [phone] Basophils/100 WBC (Bld) 0.7 % Normal 2019 [facility] (10191) Comment: Performed By: #### CMP, CBCD IF ####[place] [address] [phone]- [phone] DTYPE Auto Diff Normal 07-22-2019 [facility] (71722) Comment: Performed By: #### CMP, CBCD IF ####[place] [address] [phone] Eosinophils (Bld) [#/Vol] 0.11 <0.46 k/uL Normal [facility] (38084) Comment: Performed By: #### CMP, CBCD IF ####[place] [address] [phone] Eosinophils/100 WBC (Bld) 1.9 % Normal -0 [facility] (71497) Comment: Performed By: #### CMP, CBCD IF ####[place] [address], [place] [phone]- [phone] Erythrocyte distribution 14.3 11.5-15.0 % Normal 07-21 [facility] width (RBC) [Ratio] [place] (04444) Comment: Performed By: #### CMP, CBCD IF ####[place] [address], [place] [phone]- [phone] Hematocrit (Bld) [Volume 35.2 39.0-51.0 % Low 07-21 [facility] fraction] (16678) Comment: Performed By: #### CMP, CBCD IF ####[address] [place], [place] [phone]- [phone] Hemoglobin (Bld) 11.1 13.0-17.0 g/dL Low 07-22-2019 [facility] [Mass/Vol] [place] (57964) Comment: Performed By: #### CMP, CBCD IF ####[place] [address] [place], [place] [phone]- [phone] Lymphocytes (Bld) [#/Vol] 0.62 1.00-4.00 k/uL Low -0 [facility] (77054) Comment: Performed By: #### CMP, CBCD IF ####[place] [address], [place] [phone]- [phone] Lymphocytes/100 WBC (Bld) 10.8 % Normal -0 [facility] (22831) Comment: Performed By: #### CMP, CBCD IF ####[place] [address], [place] [phone]- [phone] MCH (RBC) [Entitic mass] 31.4 26.0-34.0 pG Normal 07-21 [facility] (47215) Comment: Performed By: #### CMP, CBCD IF ####[place] [address], [place] [phone]- [phone] MCHC (RBC) [Mass/Vol] 31.5 30.5-36.0 g/dL Normal 07-22-19 [facility] (84102) Comment: Performed By: #### CMP, CBCD IF ####[place] [address], [place] [phone]- [phone] MCV (RBC) [Entitic vol] 99.4 80.0-100.0 fL Normal 07-21 [facility] (20209) Comment: Performed By: #### CMP, CBCD IF ####[place] [address], [place] [phone]- [phone] Monocytes/100 WBC (Bld) 9.9 % Normal 2019 [facility] (13452) Comment: Performed By: #### CMP, CBCD IF ####[place] [address], [place] [phone]- [phone] Neutrophils/100 WBC (Bld) 76.7 % Normal [facility] (14049) Comment: Performed By: #### CMP, CBCD IF ####[place] [address], [place] [phone]- [phone] NRBCs 0.0 0 /100 WBC Normal 07-22-2019 [facility] (34283) Comment: Performed By: #### CMP, CBCD IF ####[place] [address], [place] [phone] Platelet mean volume (Bld) 13.2 9.0-12.[address] [facility] [Entitic vol] (83490 ) Comment: Performed By: #### CMP, CBCD IF ####[place] [address], [place] [phone]- [phone] Platelets (Bld) [#/Vol] 108 150-400 k/uL Low 2019 [facility] (26087) Comment: Result Comment: Result check ed and verifiedNo clot detected. Performed By: #### CMP, CBCD IF ####[facility] [address], [place] [phone]- [phone] RBC (Bld) [#/Vol] 3.54 4.20-6.00 m/uL Low 07-22-2019 [facility] (01361) Comment: Performed By: #### CMP, CBCD IF ####[facility] [address], [place] [phone]- [phone] WBC (Bld) [#/Vol] 5.76 3.70-11.00 k/uL Normal 07-22-2019 [facility] (99672) Comment: Performed By: #### CMP, CBCD IF ####[facility] [place], [place] [phone]- [phone] progress on 2019-07 PROGRESS Normal 07-21-2019 [facility] (47771) cnptoutreach on CNPTOUTREACH Normal 07-21-2019 [facility] (36324) progress on 2019-07 PROGRESS Normal 07-20-2019 [facility] (09362) PROGRESS Normal 07-20-2019 [facility] (71361) cnpn on 2019-07-20 CNPN Normal 07-20-2019 [facility] (05796) cnov on 2019-07-20 CNOV Normal 07-20-2019 [facility] (61649) progress on 2019-07 PROGRESS Normal 07-19-2019 [facility] (32110) obsolete on 2019-06 OBSOLETE Normal 07-15-2019 [facility] (24183) phosphorus on 07-14 Phosphate [Mass/Vol] 2.8 2.7-4.8 mg/dL Normal 07-14- 0 [facility] (83233) Comment: Performed By: #### CBCDIF, P HOS, CMP ####[place] [address] [phone] comp metabolic panel on 2019-07-15 Albumin [Mass/Vol] 4.0 3.9-4.9 g/dL Normal 07-15-2019 [facility] (32670) Comment: Performed By: #### CBCDIF, P HOS, CMP ####[place] [address] [phone] ALP [Catalytic activity/Vol] 216 38-113 U/L High 0 07-15-2019 [facility] (77043) Comment: Performed By: #### CBCDIF, P HOS, CMP ####[place] [address] [phone] ALT [Catalytic activity/Vol] 64 10-54 U/L High 0 07-15-2019 [facility] (72944) Comment: Performed By: #### CBCDIF, P HOS, CMP ####[place] [address] [phone] Anion gap [Moles/Vol] 15 9-18 mmol/L Normal 07-15-19 [facility] (89179) Comment: Performed By: #### CBCDIF, P HOS, CMP ####[place] [address] [phone] AST [Catalytic activity/Vol] 60 14-40 U/L High 0 07-15-2019 [facility] (12962) Comment: Performed By: #### CBCDIF, P HOS, CMP ####[place] [address] [phone] Bilirubin [Mass/Vol] 0.3 0.2-1.3 mg/dL Normal [facility] (90732) Comment: Performed By: #### CBCDIF, P HOS, CMP ####[place] [address] Calcium [Mass/Vol] 9.2 8.5-10.2 mg/dL Normal 07-15-2019 [facility] (20081) Comment: Performed By: #### CBCDIF, P HOS, CMP ####[place] [address] [place] [address] [phone] Chloride [Moles/Vol] 100 97-105 mmol/L Normal 0 [facility] (72620) Comment: Performed By: #### CBCDIF, P HOS, CMP ####[facility] [address] CO2 [Moles/Vol] 22 22-30 mmol/L Normal 07-15-2019 [facility] (99719) Comment: Performed By: #### CBCDIF, P HOS, CMP ####[place] [address] [place] [address] [phone] Creatinine [Mass/Vol] 1.84 0.73-1.22 mg/dL High 07-15-[address] [facility] (84566) Comment: Performed By: #### CBCDIF, P HOS, CMP ####[place] [address] [address] [phone] eGFR- Amer. 44 Normal 07-15-2019 [facility] (33961) Comment: Performed By: #### CBCDIF, P HOS, CMP ####[place] [address] [address] [phone] GFR/1.73 sq M predicted among 37 . Normal 07-15-2019 [facility] non-blacks MDRD (S/P/Bld) [Vol (81033) rate/Area] Comment: Result Comment: eGFR (Estima pratik GFR) Units of measure: mL/min/1.73 meters squaredeGFR is derived from the reexpressed MDRD Study equation using the following parameters: serum creatinine, age, gender and race. The creatinine assay has been calibrated to be traceable to IDMS.An eGFR <60 mL/min/1.73m2 for >3 months is consistent with chronic kidney disease. Refer to KDOQI guidelines for clinical inte rpretation.In patients with unstable renal function, e.g. those with ac cowlitz kidney injury, the eGFR may not accurately reflect actual GFR. Performed By: #### LESLIEF P HOS, CMP ####[facility] [address] [place] [address] Glucose [Mass/Vol] 174 74-99 mg/dL High 07-15-2019 [facility] (93495) Comment: Result Comment: The [place] Diabetes [employer] (ADA) provides guidance for cutoff values for fastin g glucose and random glucose. The ADA defines fasting as no caloric intake for at least 8 hours. Fasting plasma glucose results between 100 to 125 m g/dL indicate increased risk for diabetes (prediabetes).Fasting plasma glucose results greater than or equal to 126 mg/dL meet the criteria for diagnosis of diabetes. In the absence of unequivocal hyperglycemia, r esults should be confirmed by repeat testing. In a patient with classic sympt oms of hyperglycemia or hyperglycemic crisis, random plasma glucose result s greater than or equal to 200 mg/dL meet the criteria for diagnosis of di abetes.Reference: Standards of Medical Care in Diabetes 2016, [place] Diab etes Association. Diabetes Care. 2016.39(Suppl 1). Performed By: #### LESLIEF P HOS, CMP ####[facility] [address] [address] [phone] Potassium [Moles/Vol] 4.2 3.7-5.1 mmol/L Normal 07-15-19 [facility] (53124) Comment: Performed By: #### CBCDIF P HOS, CMP ####[facility] [address] [place] [address] [phone] Protein [Mass/Vol] 6.3 6.3-8.0 g/dL Normal 07-15-2019 [facility] (18170) Comment: Performed By: #### CBCDIF, P HOS, CMP ####[facility] [address] [address] Sodium [Moles/Vol] 137 136-144 mmol/L Normal 07-15-2019 [facility] (90903) Comment: Performed By: #### CBCDIF, P HOS, CMP ####[place] [address] [place] [address] [phone] Urea nitrogen [Mass/Vol] 25 9-24 mg/dL High 07-14 [facility] (03793) Comment: Performed By: #### CBCDIF, P HOS, CMP ####[place] [address] [place] [address] [phone] cnpn on 2019-07-15 CNPN Normal 07-15-2019 [facility] (45094) cbc and differential on 2019-07-15 Abs Baso 0.04 <0.11 k/uL Normal 07-15-2019 [facility] (13382) Comment: Performed By: #### CBCDIF, P HOS, CMP ####[place] [address] [address] [place] [address] [phone] Abs Zapata 0.52 <0.87 k/uL Normal 07-15-2019 [facility] (09151) Comment: Performed By: #### CBCDIF, P HOS, CMP ####[place] [address] [address] [place] [address] [phone] Abs Neut 4.92 1.45-7.50 k/uL Normal 07-15-2019 [facility] (98112) Comment: Performed By: #### CBCDIF, P HOS, CMP ####[place] [address] [place] [address] [phone] Absolute nRBC <0.01 <0.01 Normal 07-15-2019 [facility] (36432) Comment: Performed By: #### CBCDIF, P HOS, CMP ####[place] [address] [place] [address] [phone] Basophils/100 WBC (Bld) 0.6 % Normal 2019 [facility] (02149) Comment: Performed By: #### CBCDIF, P HOS, CMP ####[place] [address] [place] [address] DTYPE Auto Diff Normal 07-15-2019 [facility] (34435) Comment: Performed By: #### CBCDIF, P HOS, CMP ####[place] [address] [place] [address] Eosinophils (Bld) [#/Vol] 0.12 <0.46 k/uL Normal 06-18 [facility] (86819) Comment: Performed By: #### CBCDIF, P HOS, CMP ####[place] [address] [place] [address] Eosinophils/100 WBC (Bld) 1.9 % Normal 06-18 [facility] (60895) Comment: Performed By: #### CBCDIF, P HOS, CMP ####[place] [address] [place] [address] Erythrocyte distribution 14.7 11.5-15.0 % Normal 07-14 [facility] width (RBC) [Ratio] [place] (87072) Comment: Performed By: #### CBCDIF, P HOS, CMP ####[address] [place] [address] Hematocrit (Bld) [Volume 36.7 39.0-51.0 % Low 07-14 [facility] fraction] (37333) Comment: Performed By: #### CBCDIF, P HOS, CMP ####[place] [address] [place] [address] Hemoglobin (Bld) 11.6 13.0-17.0 g/dL Low 07-15-2019 [facility] [Mass/Vol] [place] (87003) Comment: Performed By: #### CBCDIF, P HOS, CMP ####[place] [address] [place] [address] [phone] Lymphocytes (Bld) [#/Vol] 0.72 1.00-4.00 k/uL Low 06-18 [facility] (57899) Comment: Performed By: #### CBCDIF, P HOS, CMP ####[place] [address] [place] [address] [phone] Lymphocytes/100 WBC (Bld) 11.4 % Normal 06-18 [facility] (81997) Comment: Performed By: #### CBCDIF, P HOS, CMP ####[address] [place] [address] [phone] MCH (RBC) [Entitic mass] 31.3 26.0-34.0 pG Normal 07-14 [facility] (63039) Comment: Performed By: #### CBCDIF, P HOS, CMP ####[place] [address] [phone] MCHC (RBC) [Mass/Vol] 31.6 30.5-36.0 g/dL Normal 07-15-19 [facility] (59006) Comment: Performed By: #### CBCDIF, P HOS, CMP ####[address] [place] [address] [phone] MCV (RBC) [Entitic vol] 98.9 80.0-100.0 fL Normal 07-14 [facility] (78184) Comment: Performed By: #### CBCDIF, P HOS, CMP ####[place] [address] [place] [address] [phone] Monocytes/100 WBC (Bld) 8.2 % Normal 2019 [facility] (53872) Comment: Performed By: #### CBCDIF, P HOS, CMP ####[place] [address] [place] [address] [phone] Neutrophils/100 WBC (Bld) 77.9 % Normal 06-18 [facility] (96130) Comment: Performed By: #### CBCDIF, P HOS, CMP ####[place] [address] [place] [address] NRBCs 0.0 0 /100 WBC Normal 07-15-2019 [facility] (03896) Comment: Performed By: #### CBCDIF, P HOS, CMP ####[place] [address] [place] [address] Platelet mean volume (Bld) 13.3 9.0-12.[address] [facility] [Entitic vol] (71591 ) Comment: Performed By: #### CBCDIF, P HOS, CMP ####[address] [place] [address] Platelets (Bld) [#/Vol] 129 150-400 k/uL Low 2019 [facility] (97656) Comment: Result Comment: Result check ed and verifiedNo clot detected. Performed By: #### CBCDIF, P HOS, CMP ####[address] [place] [address] RBC (Bld) [#/Vol] 3.71 4.20-6.00 m/uL Low 07-15-2019 [facility] (69444) Comment: Performed By: #### CBCDIF, P HOS, CMP ####[place] [address] [place] [address] WBC (Bld) [#/Vol] 6.32 3.70-11.00 k/uL Normal 07-15-2019 [facility] (63492) Comment: Performed By: #### CBCDIF, P HOS, CMP ####[place] [address] [place] [address] [phone] progress on 2019-06 PROGRESS Normal 07-14-2019 [facility] (25140) cnptoutreach on CNPTOUTREACH Normal 07-14-2019 [facility] (27478) renal function panel on 2019-07-09 Albumin [Mass/Vol] 3.9 3.9-4.9 g/dL Normal 07-09-2019 [facility] (45728) Comment: Performed By: #### RFP ####[place] [address] [address], [place] [phone] Anion gap [Moles/Vol] 15 9-18 mmol/L Normal 07-09-19 [facility] (33201) Comment: Performed By: #### RFP ####[place] [address] [address], [place] [phone] Calcium [Mass/Vol] 9.5 8.5-10.2 mg/dL Normal 07-09-2019 [facility] (79039) Comment: Performed By: #### RFP ####[place] [address] [address], [place] [phone] Chloride [Moles/Vol] 98 97-105 mmol/L Normal [facility] (92836) Comment: Performed By: #### RFP ####[place] [address] [address], [place] [phone] CO2 [Moles/Vol] 25 22-30 mmol/L Normal 07-09-2019 [facility] (36871) Comment: Performed By: #### RFP ####[place] [address] [address], [place] [phone] Creatinine [Mass/Vol] 2.20 0.73-1.22 mg/dL High 07-09-19 [facility] (41835) Comment: Performed By: #### RFP ####[place] [address] [address], [place] [phone] eGFR- Amer. 36 Normal 07-09-2019 [facility] (86551) Comment: Performed By: #### RFP ####[facility] [address] [place], [place] [phone] GFR/1.73 sq M predicted among 30 . Normal 07-09-2019 [facility] non-blacks MDRD (S/P/Bld) [Vol (16546) rate/Area] Comment: Result Comment: eGFR (Estima pratik GFR) Units of measure: mL/min/1.73 meters squaredeGFR is derived from the reexpressed MDRD Study equation using the following parameters: serum creatinine, age, gender and race. The creatinine assay has been calibrated to be traceable to IDMS.An eGFR <60 mL/min/1.73m2 for >3 months is consistent with chronic kidney disease. Refer to KDOQI guidelines for clinical inte rpretation.In patients with unstable renal function, e.g. those with ac cowlitz kidney injury, the eGFR may not accurately reflect actual GFR. Performed By: #### RFP ####[facility] [place], [place] [phone] Glucose [Mass/Vol] 161 74-99 mg/dL High 07-09-2019 [facility] (96983) Comment: Result Comment: The [place] [employer] (ADA) provides guidance for cutoff values for fastin g glucose and random glucose. The ADA defines fasting as no caloric intake for at least 8 hours. Fasting plasma glucose results between 100 to 125 m g/dL indicate increased risk for diabetes (prediabetes).Fasting plasma glucose results greater than or equal to 126 mg/dL meet the criteria for diagnosis of diabetes. In the absence of unequivocal hyperglycemia, r esults should be confirmed by repeat testing. In a patient with classic sympt oms of hyperglycemia or hyperglycemic crisis, random plasma glucose result s greater than or equal to 200 mg/dL meet the criteria for diagnosis of di abetes.Reference: Standards of Medical Care in Diabetes 2016, [place] Di[employer] etes [employer]. Diabetes Care. 2016.39(Suppl 1). Performed By: #### RFP ####[facility] [address] [place], [place] [phone] Phosphate [Mass/Vol] 3.0 2.7-4.8 mg/dL Normal 0 [facility] (20062) Comment: Performed By: #### RFP ####[facility] [place], [place] [phone] Potassium [Moles/Vol] 4.5 3.7-5.1 mmol/L Normal 07-09-19 [facility] (67708) Comment: Performed By: #### RFP ####[address] [phone] Sodium [Moles/Vol] 138 136-144 mmol/L Normal 07-09-2019 [facility] (69297) Comment: Performed By: #### RFP ####[facility] [place] [address] [phone] Urea nitrogen [Mass/Vol] 28 9-24 mg/dL High 07-08 [facility] (01612) Comment: Performed By: #### RFP ####[address] [phone] obsolete on 2019-06 OBSOLETE Normal 07-09-2019 [facility] (80774) progress on 2019-06 PROGRESS Normal 07-07-2019 [facility] (94969) cnptoutreach on CNPTOUTREACH Normal 07-07-2019 [facility] (58268) progress on 2019-06 PROGRESS Normal 07-06-2019 [facility] (28186) phosphorus on 07-05 Phosphate [Mass/Vol] 3.4 2.7-4.8 mg/dL Normal 0 [facility] (74879) magnesium on 07-05 Magnesium [Mass/Vol] 1.7 1.7-2.3 mg/dL Normal 0 [facility] (47365) cnpn on 2019-07-06 CNPN Normal 07-06-2019 [facility] (50220) cnovsp on 2019-06-18 9 CNOVSP Normal 07-06-2019 [facility] (27262) cnpn on 2019-07-05 CNPN Normal 07-05-2019 [facility] (90950) cnpn on 2019-07-01 CNPN Normal 07-01-2019 [facility] (45285) progress on 2019-06 PROGRESS Normal 06-30-2019 [facility] (99673) progress on 2019-06 PROGRESS Normal 06-29-2019 [facility] (79561) vitamin d 25 hydroxy on 2019-06-28 Vitamin D 25 Hydroxy 46.2 31.0-80.0 ng/mL Normal 0 [facility] (76071) Comment: Result Comment: Classificati on of 25 [place] Vitamin D status:Insufficiency/Moderat e Deficiency: < or = 30 ng/mLSufficiency/Optimal Levels: 31 to 80 ng/mLToxici ty: > 100 ng/mLTest performed by chemiluminescent immunoassay . Performed By: #### PTHI, VIT D, RFP ####[address] [phone] urinalysis with microscopic on 2019-06-28 Bilirubin, Urine Negative Negative Normal 06-28-2019 Cl [facility] (17463) Comment: Performed By: #### UAWMIC ## ##[address] [phone] Cast SEE COMMENT 0 Critically abnormal 06-28-19 [facility] (85398) Comment: Result Comment: 1-3Hyaline C ast Performed By: #### UAWMIC ## ##[place] [address] [place], [place] [phone] Clarity (U) Clear Clear Normal 06-28-2019 [facility] (89697) Comment: Performed By: #### UAWMIC ## ##[place] [address] [place], [place] [phone] Color (U) Yellow Yellow Normal 06-28-2019 [facility] (20739) Comment: Performed By: #### UAWMIC ## ##[facility], [place] [phone] Comments SEE COMMENT Normal 06-28-2019 [facility] (52567) Comment: Result Comment: N/A Performed By: #### UAWMIC ## ##[place] [address] [place] [phone] Epithelial cells LM.HPF SEE COMMENT Normal 06-17 [facility] (Urine sed) [#/Area] [place] (95232) Comment: Result Comment: FewSquamous Epithelial Cells Performed By: #### UAWMIC ## ##[place] [address] [phone] Glucose Ql (U) Negative Negative Normal 06-28-2019 [facility] (91847) Comment: Performed By: #### UAWMIC ## ##[place] [address] [phone] Hemoglobin/Blood,Ur Negative Negative Normal 06-28-2019 [facility] (17723) Comment: Performed By: #### UAWMIC ## ##[place] [address] [place] [phone] Ketones Ql (U) Negative Negative Normal 06-28-2019 [facility] (23610) Comment: Performed By: #### UAWMIC ## ##[facility], [place] [phone] Leukest Negative Negative Normal 06-28-2019 [facility] (64167) Comment: Performed By: #### UAWMIC ## ##[facility] [place] [phone] Nitrite Ql (U) Negative Negative Normal 06-28-2019 [facility] (29637) Comment: Performed By: #### UAWMIC ## ##[place] [address] [place] [phone] pH (Bld) 5.0 5.0-8.0 Normal 06-28-2019 [facility] (91995) Comment: Performed By: #### UAWMIC ## ##[facility], [place] [phone] Protein (U) [Mass/Vol] Negative Negative mg/dL Normal 020 [facility] (41950) Comment: Performed By: #### UAWMIC ## ##[facility], [place] [phone] RBC (U) [#/Vol] 0-3 0-3 Normal 06-28-2019 [facility] (61509) Comment: Performed By: #### UAWMIC ## ##[place] [address], [place] [phone] Specific Horner, Ur 1.020 1.005-1.[address] [facility] (89921) Comment: Performed By: #### UAWMIC ## ##[facility], [place] [phone] Urine Yo Comment SEE COMMENT Normal 06-28-2019 [facility] (44800) Comment: Result Comment: Result reche cked. Performed By: #### UAWMIC ## ##[place] [address], [place] [phone] Urobilinogen Qn (U) Negative Negative Normal 06-28-2019 [facility] (79250) Comment: Performed By: #### UAWMIC ## ##[facility]Ce[address], [place] [phone]- [phone] WBC (Bld) [#/Vol] 0-5 0-5 Normal 06-28-2019 [facility] (00135) Comment: Performed By: #### UAWMIC ## ##[facility], [place] [phone] uric acid on 2020-0 5-11 Urate [Mass/Vol] 6.1 4.0-8.1 mg/dL Normal 06-28-2019 [facility] (12979) renal function panel on 2019-06-28 Albumin [Mass/Vol] 4.2 3.9-4.9 g/dL Normal 06-28-2019 [facility] (09030) Comment: Performed By: #### PTHI, VIT D, RFP ####[place] [address] [place] [address] [phone] Anion gap [Moles/Vol] 14 9-18 mmol/L Normal 06-28-19 [facility] (55580) Comment: Performed By: #### PTHI, VIT D, RFP ####[place] [address] [place] [address] [phone] Calcium [Mass/Vol] 9.4 8.5-10.2 mg/dL Normal 06-28-2019 [facility] (23251) Comment: Performed By: #### PTHI, VIT D, RFP ####[place] [address] [place] [address] [phone] Chloride [Moles/Vol] 105 97-105 mmol/L Normal 0 [facility] (17951) Comment: Performed By: #### PTHI, VIT D, RFP ####[place] [address] [address] [phone] CO2 [Moles/Vol] 22 22-30 mmol/L Normal 06-28-2019 [facility] (59171) Comment: Performed By: #### PTHI, VIT D, RFP ####[place] [address] [address] [phone] Creatinine [Mass/Vol] 1.63 0.73-1.22 mg/dL High 06-28-19 [facility] (04346) Comment: Performed By: #### PTHI, VIT D, RFP ####[place] [address] [place] [address] [phone] eGFR- Amer. 51 Normal 06-28-2019 [facility] (34373) Comment: Performed By: #### PTHI, VIT D, RFP ####[facility] [address] [place] [address] [phone] GFR/1.73 sq M predicted among 42 . Normal 06-28-2019 [facility] non-blacks MDRD (S/P/Bld) [Vol (10595) rate/Area] Comment: Result Comment: eGFR (Estima pratik GFR) Units of measure: mL/min/1.73 meters squaredeGFR is derived from the reexpressed MDRD Study equation using the following parameters: serum creatinine, age, gender and race. The creatinine assay has been calibrated to be traceable to IDMS.An eGFR <60 mL/min/1.73m2 for >3 months is consistent with chronic kidney disease. Refer to KDOQI guidelines for clinical inte rpretation.In patients with unstable renal function, e.g. those with ac cowlitz kidney injury, the eGFR may not accurately reflect actual GFR. Performed By: #### PTHI, VIT D, RFP ####[facility] [address] [place] [address] [phone] Glucose [Mass/Vol] 138 74-99 mg/dL High 06-28-2019 [facility] (90353) Comment: Result Comment: The [place] Diabetes Association (ADA) provides guidance for cutoff values for fastin g glucose and random glucose. The ADA defines fasting as no caloric intake for at least 8 hours. Fasting plasma glucose results between 100 to 125 m g/dL indicate increased risk for diabetes (prediabetes).Fasting plasma glucose results greater than or equal to 126 mg/dL meet the criteria for diagnosis of diabetes. In the absence of unequivocal hyperglycemia, r esults should be confirmed by repeat testing. In a patient with classic sympt oms of hyperglycemia or hyperglycemic crisis, random plasma glucose result s greater than or equal to 200 mg/dL meet the criteria for diagnosis of di abetes.Reference: Standards of Medical Care in Diabetes 2016, [place] Diab etes Association. Diabetes Care. 2016.39(Suppl 1). Performed By: #### PTHI, VIT D, RFP ####[facility] [place] [address] [phone] Phosphate [Mass/Vol] 2.3 2.7-4.8 mg/dL Low 0 [facility] (99977) Comment: Performed By: #### PTHI, VIT D, RFP ####[place] [address] [address] [phone] Potassium [Moles/Vol] 4.7 3.7-5.1 mmol/L Normal 06-28-[address] [facility] (78837) Comment: Performed By: #### PTHI, VIT D, RFP ####[address] [address] [phone] Sodium [Moles/Vol] 141 136-144 mmol/L Normal 06-28-2019 [facility] (29948) Comment: Performed By: #### PTHI, VIT D, RFP ####[place] [address] [place] [address] [phone] Urea nitrogen [Mass/Vol] 8 9-24 mg/dL Low 06-27 [facility] (46456) Comment: Performed By: #### PTHI, VIT D, RFP ####[address] [place] [address] [phone] pth, intact on 2019 PTH, Intact 43 15-65 pg/mL Normal 06-28-2019 [facility] (72113) Comment: Performed By: #### PTHI, VIT D, RFP ####[place] [address] [place] [address] [phone] protein/creatinine ratio on 2019-06-28 Creatinine,Urine,Ran 246.6 20-300 mg/dL Normal 0 [facility] (13397) Comment: Performed By: #### PRATIO ## ##[place] [address] [place] [phone] Protein (U) [Mass/Vol] 18 0-20 mg/dL Normal 020 [facility] (28966) Comment: Performed By: #### EDITA ## ##[facility] [address] [place], [place] [phone] Protein/Creatinine Ratio 0.1 <0.2 Normal 06-27 [facility] (87273) Comment: Performed By: #### EDITA ## ##[facility] [address] [place], [place] [phone] progress on 2019-06 PROGRESS Normal 06-28-2019 [facility] (26419) ld on 2019-06-28 LD 246 135-225 U/L High 06-28-2019 [facility] (42249) comp metabolic panel on 2019-06-28 Albumin [Mass/Vol] 4.1 3.9-4.9 g/dL Normal 06-28-2019 [facility] (48381) ALP [Catalytic 268 38-113 U/L High 06-28-2019 [facility] activity/Vol] [place] (82416) ALT [Catalytic 107 10-54 U/L High 06-28-2019 [facility] activity/Vol] [place] (81098) Anion gap [Moles/Vol] 11 9-18 mmol/L Normal 06-28-[address] [facility] (41877) AST [Catalytic 186 14-40 U/L High 06-28-2019 [facility] activity/Vol] [place] [facility] (36802) Bilirubin [Mass/Vol] 0.6 0.2-1.3 mg/dL Normal 0 [facility] (06114) Calcium [Mass/Vol] 9.5 8.5-10.2 mg/dL Normal 06-28-2019 [facility] (53920) Chloride [Moles/Vol] 104 97-105 mmol/L Normal 0 [facility] (59102) CO2 [Moles/Vol] 25 22-30 mmol/L Normal 06-28-2019 [facility] (10318) Creatinine [Mass/Vol] 1.56 0.73-1.22 mg/dL High 06-28-19 [facility] (37023) eGFR- Amer. 54 Normal 06-28-2019 [facility] (22721) GFR/1.73 sq M predicted 44 . Normal 2019 [facility] among non-blacks MDRD [place] (87298) (S/P/Bld) [Vol rate/Area] Comment: Result Comment: eGFR (Estima pratik GFR) Units of measure: mL/min/1.73 meters squaredeGFR is derived from the reexpressed MDRD Study equation using the following parameters: serum creatinine, age, gender and race. The creatinine assay has been calibrated to be traceable to IDMS.An eGFR <60 mL/min/1.73m2 for >3 months is consistent with chronic kidney disease. Refer to KDOQI guidelines for clinical inte rpretation.In patients with unstable renal function, e.g. those with ac cowlitz kidney injury, the eGFR may not accurately reflect actual GFR. Glucose [Mass/Vol] 143 74-99 mg/dL High 06-28-2019 [facility] (58657) Comment: Result Comment: The [place] Diabetes Association (ADA) provides guidance for cutoff values for fastin g glucose and random glucose. The ADA defines fasting as no caloric intake for at least 8 hours. Fasting plasma glucose results between 100 to 125 m g/dL indicate increased risk for diabetes (prediabetes).Fasting plasma glucose results greater than or equal to 126 mg/dL meet the criteria for diagnosis of diabetes. In the absence of unequivocal hyperglycemia, r esults should be confirmed by repeat testing. In a patient with classic sympt oms of hyperglycemia or hyperglycemic crisis, random plasma glucose result s greater than or equal to 200 mg/dL meet the criteria for diagnosis of di abetes.Reference: Standards of Medical Care in Diabetes 2016, [place] Diab etes Association. Diabetes Care. 2016.39(Suppl 1). Potassium [Moles/Vol] 4.5 3.7-5.1 mmol/L Normal 06-28-19 [facility] (92200) Protein [Mass/Vol] 6.8 6.3-8.0 g/dL Normal 06-28-2019 [facility] (27923) Sodium [Moles/Vol] 140 136-144 mmol/L Normal 06-28-2019 [facility] (39589) Urea nitrogen [Mass/Vol] 8 9-24 mg/dL Low 06-27 [facility] (45057) cnptoutreach on CNPTOUTREACH Normal 06-28-2019 [facility] (31624) cnpn on 2019-06-28 CNPN Normal 06-28-2019 [facility] (75619) chromogranin a on 2 Chromogranin A See Comment <98 Normal 06-28-2019 [facility] (38200[facility] Comment: Result Comment: The Chromogr anin A result is 334 ng/mL,the reference range of [facility] is 0 to 160 ng/mL. Disregard [facility] reference range. Interpret the result using the reference range provided by the performing laboratory.Test p erformed by: [facility], [place], [place].Testing performed by [facility] io CGA LM US kit. Results obtained with different methods or kits ca nnot be used interchangeably. See Compliance statement D: [email or web address]. Performed By: #### CHROMA ## ##[facility] [place], [place] [phone] cbc and differential on 2019-06-28 Abs Baso 0.05 <0.11 k/uL Normal 06-28-2019 [facility] (37775) Abs Zapata 0.38 <0.87 k/uL Normal 06-28-2019 [facility] (84526) Abs Neut 4.76 1.45-7.50 k/uL Normal 06-28-2019 [facility] (29620) Absolute nRBC <0.01 <0.01 Normal 06-28-2019 [place] [facility] (73827) Basophils/100 WBC 0.8 % Normal 06-28-2019 [facility] (Bld) [place] (52402) DTYPE Auto Diff Normal 06-28-2019 [facility] (40240) Eosinophils (d) 0.12 <0.46 k/uL Normal 06-28-2019 C [facility] [#/Vol] [place] (69730) Eosinophils/100 WBC 2.0 % Normal 06-28-2019 [facility] (Bld) [place] (28733) Erythrocyte 16.1 11.5-15.0 % High 06-28-2019 [facility] distribution width C [facility] (68628) (RBC) [Ratio] Hematocrit (Bld) 36.5 39.0-51.0 % Low 06-28-2019 annamarie [facility] [Volume fraction] [facility] (66153) Hemoglobin (Bld) 11.7 13.0-17.0 g/dL Low 06-28-2019 [facility] [Mass/Vol] [place] (63845) Lymphocytes (Bld) 0.59 1.00-4.00 k/uL Low 06-28-2019 C [facility] [#/Vol] [place] (29867) Lymphocytes/100 WBC 10.0 % Normal 06-28-2019 [facility] (Bld) [place] (06936) MCH (RBC) [Entitic 32.1 26.0-34.0 pG Normal 06-28-2019 [facility] mass] [place] (37932) MCHC (RBC) 32.1 30.5-36.0 g/dL Normal 06-28-2019 [facility] [Mass/Vol] [place] (40702) MCV (RBC) [Entitic 100.3 80.0-100.0 fL High 06-28-2019 [facility] vol] [place] (89555) Monocytes/100 WBC 6.4 % Normal 06-28-2019 C [facility] (d) [place] (36553) Neutrophils/100 WBC 80.8 % Normal 06-28-2019 [facility] (Bld) [place] (53354) NRBCs 0.0 0 /100 WBC Normal 06-28-2019 [facility] (66542) Platelet mean volume 11.3 9.0-12.7 fL Normal 0 [place] [facility] (d) [Entitic vol] [place] (70638) Platelets (Bld) 149 150-400 k/uL Low 06-28-2019 [facility] [#/Vol] [place] (22974) RBC (Bld) [#/Vol] 3.64 4.20-6.00 m/uL Low 06-28-2019 C [facility] (73794) WBC (Bld) [#/Vol] 5.90 3.70-11.00 k/uL Normal 06-28-2019 [facility] (43350) progress on 2019-06 PROGRESS Normal 06-26-2019 [facility] (28684) progress on 2019-06 PROGRESS Normal 06-25-2019 [facility] (02044) PROGRESS Normal 06-25-2019 [facility] (93607) cnptoutreach on CNPTOUTREACH Normal 06-25-2019 [facility] (30027) cnpn on 2019-06-24 CNPN Normal 06-24-2019 [facility] (84990) cnds on 2019-06-24 CNDS Normal 06-24-2019 [facility] (31328) case managem on CASE MANAGEM Normal 06-24-2019 [facility] (48266) progress on 2019-06 PROGRESS Normal 06-23-2019 [facility] (27085) phosphorus on 06-22 Phosphate [Mass/Vol] 2.8 2.7-4.8 mg/dL Normal 0 [facility] (49963) Comment: Performed By: #### MG1, BMP, CBCDIF, PHOS ####[facility] [address] [place], [place] [phone] magnesium on 06-22 Magnesium [Mass/Vol] 1.5 1.7-2.3 mg/dL Low 0 [facility] (51376) Comment: Performed By: #### MG1, BMP, CBCDIF, PHOS ####[facility] [address] [place], [place] [phone] cbc and differential on 2019-06-23 Abs Baso <0.03 <0.11 Normal 06-23-2019 [facility] (89492) Comment: Performed By: #### MG1, BMP, CBCDIF, PHOS ####[facility] [address] [place], [place] [phone] Abs Zapata 0.42 <0.87 k/uL Normal 06-23-2019 [facility] (96304) Comment: Performed By: #### MG1, BMP, CBCDIF, PHOS ####[facility] levelandCassidy [place] [phone] Abs Neut 3.05 1.45-7.50 k/uL Normal 06-23-2019 [facility] (51399) Comment: Performed By: #### MG1, BMP, CBCDIF, PHOS ####[place] [address] levelJohn [place] [phone] Absolute nRBC <0.01 <0.01 Normal 06-23-2019 [facility] (69990) Comment: Performed By: #### MG1, BMP, CBCDIF, PHOS ####[place] [address] levelandCass[place] [phone] Basophils/100 WBC (Bld) 0.5 % Normal 2019 [facility] (03440) Comment: Performed By: #### MG1, BMP, CBCDIF, PHOS ####[place] [address] levelJohn [place] [phone] DTYPE Auto Diff Normal 06-23-2019 [facility] (05073) Comment: Performed By: #### MG1, BMP, CBCDIF, PHOS ####[place] [address] levelandCassidy [place] [phone] Eosinophils (Bld) [#/Vol] 0.17 <0.46 k/uL Normal [facility] (16100) Comment: Performed By: #### MG1, BMP, CBCDIF, PHOS ####[place] [address] levelandCassidy [place] [phone] Eosinophils/100 WBC (Bld) 4.2 % Normal [facility] (99070) Comment: Performed By: #### MG1, BMP, CBCDIF, PHOS ####[facility] leveland[place], [place] [phone] Erythrocyte distribution 16.2 11.5-15.0 % High - [facility] width (RBC) [Ratio] [place] (40890) Comment: Performed By: #### MG1, BMP, CBCDIF, PHOS ####[place] [address] levelandCassidy [place] [phone] Hematocrit (Bld) [Volume 29.0 39.0-51.0 % Low 06-22 [facility] fraction] (77968) Comment: Performed By: #### MG1, BMP, CBCDIF, PHOS ####[place] [address] levelandE[place], [place] [phone] Hemoglobin (Bld) 9.4 13.0-17.0 g/dL Low 06-23-2019 [facility] [Mass/Vol] [place] (82032) Comment: Performed By: #### MG1, BMP, CBCDIF, PHOS ####[place] [address] levelJohn [place] [phone] Lymphocytes (Bld) [#/Vol] 0.42 1.00-4.00 k/uL Low 05-0 [facility] (89280) Comment: Performed By: #### MG1, BMP, CBCDIF, PHOS ####[facility] [address] levelandE[place], [place] [phone] Lymphocytes/100 WBC (Bld) 10.3 % Normal 05-0 [facility] (76948) Comment: Performed By: #### MG1, BMP, CBCDIF, PHOS ####[facility] [address] levelandE[place], [place] [phone] MCH (RBC) [Entitic mass] 31.6 26.0-34.0 pG Normal - [facility] (56512) Comment: Performed By: #### MG1, BMP, CBCDIF, PHOS ####[facility] [address] levelandCassidy [place] [phone] MCHC (RBC) [Mass/Vol] 32.4 30.5-36.0 g/dL Normal 06-23-19 [facility] (10612) Comment: Performed By: #### MG1, BMP, CBCDIF, PHOS ####[facility] [address] levelandCassidy [place] [phone] MCV (RBC) [Entitic vol] 97.6 80.0-100.0 fL Normal 06-22 [facility] (93510) Comment: Performed By: #### MG1, BMP, CBCDIF, PHOS ####[place] [address] levelJohn [place] [phone] Monocytes/100 WBC (Bld) 10.3 % Normal 2019 [facility] (19119) Comment: Performed By: #### MG1, BMP, CBCDIF, PHOS ####[facility] [address] levelJohn [place] [phone] Neutrophils/100 WBC (Bld) 74.7 % Normal [facility] (67278) Comment: Performed By: #### MG1, BMP, CBCDIF, PHOS ####[facility] [address] levelandCassidy [place] [phone] NRBCs 0.0 0 /100 WBC Normal 06-23-2019 [facility] (46256) Comment: Performed By: #### MG1, BMP, CBCDIF, PHOS ####[facility] [address] levelJohn [place] [phone] Platelet mean volume 12.7 9.0-12.7 fL Normal 0 [facility] (Bld) [Entitic vol] [place] (45755) Comment: Performed By: #### MG1, BMP, CBCDIF, PHOS ####[facility] [place]and[place], [place] [phone] Platelets (Bld) [#/Vol] 72 150-400 k/uL Low 2019 [facility] (24801) Comment: Result Comment: Result check ed and verifiedNo clot detected. Performed By: #### MG1, BMP, CBCDIF, PHOS ####[place] [address] [place], [place] [phone] RBC (Bld) [#/Vol] 2.97 4.20-6.00 m/uL Low 06-23-2019 C [facility] (81111) Comment: Performed By: #### MG1, BMP, CBCDIF, PHOS ####[place] [address] [place], [place] [phone] WBC (Bld) [#/Vol] 4.09 3.70-11.00 k/uL Normal 06-23-2019 [facility] (04753) Comment: Performed By: #### MG1, BMP, CBCDIF, PHOS ####[facility] [place], [place] [phone] basic metabolic panl on 2019-06-23 Anion gap [Moles/Vol] 13 9-18 mmol/L Normal 06-23-[address] [facility] (15893) Comment: Performed By: #### MG1, BMP, CBCDIF, PHOS ####[place] [address] [place]and[place], [place] [phone] Calcium [Mass/Vol] 9.0 8.5-10.2 mg/dL Normal 06-23-2019 [facility] (31236) Comment: Performed By: #### MG1, BMP, CBCDIF, PHOS ####[facility] leveland[place], [place] [phone] Chloride [Moles/Vol] 101 97-105 mmol/L Normal 0 [facility] (14044) Comment: Performed By: #### MG1, BMP, CBCDIF, PHOS ####[facility] [address] [place], [place] [phone] CO2 [Moles/Vol] 24 22-30 mmol/L Normal 06-23-2019 [facility] (09834) Comment: Performed By: #### MG1, BMP, CBCDIF, PHOS ####[facility] [address] [place], [place] [phone] Creatinine [Mass/Vol] 1.71 0.73-1.22 mg/dL High 06-23-[address] [facility] (92834) Comment: Performed By: #### MG1, BMP, CBCDIF, PHOS ####[facility] [place], [place] [phone] eGFR- Amer. 48 Normal 06-23-2019 [facility] (79073) Comment: Performed By: #### MG1, BMP, CBCDIF, PHOS ####[facility] [place], [place] [phone] GFR/1.73 sq M predicted among 40 . Normal 06-23-2019 [facility] non-blacks MDRD (S/P/Bld) [Vol (46352) rate/Area] Comment: Result Comment: eGFR (Estima praitk GFR) Units of measure: mL/min/1.73 meters squaredeGFR is derived from the reexpressed MDRD Study equation using the following parameters: serum creatinine, age, gender and race. The creatinine assay has been calibrated to be traceable to IDMS.An eGFR <60 mL/min/1.73m2 for >3 months is consistent with chronic kidney disease. Refer to KDOQI guidelines for clinical inte rpretation.In patients with unstable renal function, e.g. those with ac cowlitz kidney injury, the eGFR may not accurately reflect actual GFR. Performed By: #### MG1, BMP, CBCDIF, PHOS ####[facility] [address] [facility] [place], [place] [phone] Glucose [Mass/Vol] 74 74-99 mg/dL Normal 06-23-2019 [facility] (76702) Comment: Result Comment: The [place] Diabetes Association (ADA) provides guidance for cutoff values for fastin g glucose and random glucose. The ADA defines fasting as no caloric intake for at least 8 hours. Fasting plasma glucose results between 100 to 125 m g/dL indicate increased risk for diabetes (prediabetes).Fasting plasma glucose results greater than or equal to 126 mg/dL meet the criteria for diagnosis of diabetes. In the absence of unequivocal hyperglycemia, r esults should be confirmed by repeat testing. In a patient with classic sympt oms of hyperglycemia or hyperglycemic crisis, random plasma glucose result s greater than or equal to 200 mg/dL meet the criteria for diagnosis of di abetes.Reference: Standards of Medical Care in Diabetes 2016, [place] Diab etes Association. Diabetes Care. 2016.39(Suppl 1). Performed By: #### MG1, BMP, CBCDIF, PHOS ####[facility] [address] [place], [place] [phone] Potassium [Moles/Vol] 3.7 3.7-5.1 mmol/L Normal 06-23-19 [facility] (53615) Comment: Performed By: #### MG1, BMP, CBCDIF, PHOS ####[facility] [address] [place], [place] [phone] Sodium [Moles/Vol] 138 136-144 mmol/L Normal 06-23-2019 [facility] (81947) Comment: Performed By: #### MG1, BMP, CBCDIF, PHOS ####[facility] [address] [place], [place] [phone] Urea nitrogen [Mass/Vol] 12 9-24 mg/dL Normal 06-22 [facility] (30506) Comment: Performed By: #### MG1, BMP, CBCDIF, PHOS ####[facility] [address] [place], [place] [phone] progress on 2019-06 PROGRESS Normal 06-22-2019 [facility] (70691) phosphorus on 06-21 Phosphate [Mass/Vol] 2.6 2.7-4.8 mg/dL Low 0 [facility] (89970) Comment: Performed By: #### PHOS, MG1 , BMP, CBCDIF ####[place] [address] [place] [phone] magnesium on 06-21 Magnesium [Mass/Vol] 1.4 1.7-2.3 mg/dL Low 0 [facility] (44983) Comment: Performed By: #### PHOS, MG1 , BMP, CBCDIF ####[place] [address] [place] [phone] cbc and differential on 2019-06-22 Abs Baso <0.03 <0.11 Normal 06-22-2019 [facility] (83808) Comment: Performed By: #### PHOS, MG1 , BMP, CBCDIF ####[place] [address] [place] [phone] Abs Zapata 0.49 <0.87 k/uL Normal 06-22-2019 [facility] (60834) Comment: Performed By: #### PHOS, MG1 , BMP, CBCDIF ####[facility] [place] [phone] Abs Neut 3.71 1.45-7.50 k/uL Normal 06-22-2019 [facility] (50894) Comment: Performed By: #### PHOS, MG1 , BMP, CBCDIF ####[facility] [address] [place] [phone] Absolute nRBC <0.01 <0.01 Normal 06-22-2019 [facility] (04447) Comment: Performed By: #### PHOS, MG1 , BMP, CBCDIF ####[facility] [address] [place], [place] [phone] Basophils/100 WBC (Bld) 0.4 % Normal -2019 [facility] (74103) Comment: Performed By: #### PHOS, MG1 , BMP, CBCDIF ####[facility] [place], [place] [phone] DTYPE Auto Diff Normal - [facility] (78536) Comment: Performed By: #### PHOS, MG1 , BMP, CBCDIF ####[facility] [place] [phone] Eosinophils (Bld) [#/Vol] 0.18 <0.46 k/uL Normal [facility] (89854) Comment: Performed By: #### PHOS, MG1 , BMP, CBCDIF ####[place] [address] [place] [phone] Eosinophils/100 WBC (Bld) 3.7 % Normal [facility] (10335) Comment: Performed By: #### PHOS, MG1 , BMP, CBCDIF ####[facility] [address] [place], [place] [phone] Erythrocyte distribution 16.4 11.5-15.0 % High 06-21 [facility] width (RBC) [Ratio] [place] (03881) Comment: Performed By: #### PHOS, MG1 , BMP, CBCDIF ####[facility] [address] [place], [place] [phone] Hematocrit (Bld) [Volume 28.5 39.0-51.0 % Low - [facility] fraction] (52149) Comment: Performed By: #### PHOS, MG1 , BMP, CBCDIF ####[facility] [address] [place], [place] [phone] Hemoglobin (Bld) 9.7 13.0-17.0 g/dL Low 06-22-2019 [facility] [Mass/Vol] [place] (27918) Comment: Performed By: #### PHOS, MG1 , BMP, CBCDIF ####[facility] [address] [place], [place] [phone] Lymphocytes (Bld) [#/Vol] 0.39 1.00-4.00 k/uL Low [facility] (53590) Comment: Performed By: #### PHOS, MG1 , BMP, CBCDIF ####[place] [address] [place] [phone] Lymphocytes/100 WBC (Bld) 8.1 % Normal [facility] (89938) Comment: Performed By: #### PHOS, MG1 , BMP, CBCDIF ####[place] [address] [place] [phone] MCH (RBC) [Entitic mass] 32.7 26.0-34.0 pG Normal 06-21 [facility] (68070) Comment: Performed By: #### PHOS, MG1 , BMP, CBCDIF ####[place] [address] [place], [place] [phone] MCHC (RBC) [Mass/Vol] 34.0 30.5-36.0 g/dL Normal 06-22-19 [facility] (55439) Comment: Performed By: #### PHOS, MG1 , BMP, CBCDIF ####[facility] [address] [place], [place] [phone] MCV (RBC) [Entitic vol] 96.0 80.0-100.0 fL Normal 06-21 [facility] (76023) Comment: Performed By: #### PHOS, MG1 , BMP, CBCDIF ####[facility] [address] [place], [place] [phone] Monocytes/100 WBC (Bld) 10.2 % Normal 2019 [facility] (73899) Comment: Performed By: #### PHOS, MG1 , BMP, CBCDIF ####[facility] [address] [place], [place] [phone] Neutrophils/100 WBC (Bld) 77.6 % Normal 0 [facility] (80468) Comment: Performed By: #### PHOS, MG1 , BMP, CBCDIF ####[facility] [address] [place], [place] [phone] NRBCs 0.0 0 /100 WBC Normal 06-22-2019 [facility] (70875) Comment: Performed By: #### PHOS, MG1 , BMP, CBCDIF ####[place] [address] [place], [place] [phone] Platelet mean volume 12.7 9.0-12.7 fL Normal 0 [facility] (Bld) [Entitic vol] [place] (40741) Comment: Performed By: #### PHOS, MG1 , BMP, CBCDIF ####[facility] [place], [place] [phone] Platelets (Bld) [#/Vol] 78 150-400 k/uL Low 2019 [facility] (14241) Comment: Result Comment: No clot dete cted. Performed By: #### PHOS, MG1 , BMP, CBCDIF ####[facility] [address] [place], [place] [phone] RBC (Bld) [#/Vol] 2.97 4.20-6.00 m/uL Low 06-22-2019 [facility] [place] [facility] (54866) Comment: Performed By: #### PHOS, MG1 , BMP, CBCDIF ####[facility] [address] [place], [place] [phone] WBC (Bld) [#/Vol] 4.81 3.70-11.00 k/uL Normal 06-22-2019 [facility] (23442) Comment: Performed By: #### PHOS, MG1 , BMP, CBCDIF ####[facility] [address] [place], [place] [phone] case mgt init asses on 2019-06-22 CASE MGT INIT ASSES Normal 06-22-2019 [facility] (81701) basic metabolic panl on 2019-06-22 Anion gap [Moles/Vol] 12 9-18 mmol/L Normal 06-22-19 [facility] (99814) Comment: Performed By: #### PHOS, MG1 , BMP, CBCDIF ####[facility] [place], [place] [phone] Calcium [Mass/Vol] 8.4 8.5-10.2 mg/dL Low 06-22-2019 [facility] (22895) Comment: Performed By: #### PHOS, MG1 , BMP, CBCDIF ####[facility] [address] [place], [place] [phone] Chloride [Moles/Vol] 100 97-105 mmol/L Normal 0 [facility] (06355) Comment: Performed By: #### PHOS, MG1 , BMP, CBCDIF ####[facility] [address] [place], [place] [phone] CO2 [Moles/Vol] 24 22-30 mmol/L Normal 06-22-2019 [facility] (05905) Comment: Performed By: #### PHOS, MG1 , BMP, CBCDIF ####[facility] [address] [place], [place] [phone] Creatinine [Mass/Vol] 1.77 0.73-1.22 mg/dL High 06-22-19 [facility] (62305) Comment: Performed By: #### PHOS, MG1 , BMP, CBCDIF ####[facility] [address] [place], [place] [phone] eGFR- Amer. 46 Normal 06-22-2019 [facility] (05538) Comment: Performed By: #### PHOS, MG1 , BMP, CBCDIF ####[facility] [address] [place], [place] [phone] GFR/1.73 sq M predicted among 38 . Normal 06-22-2019 [facility] non-blacks MDRD (S/P/Bld) [Vol (64762) rate/Area] Comment: Result Comment: eGFR (Estima pratik GFR) Units of measure: mL/min/1.73 meters squaredeGFR is derived from the reexpressed MDRD Study equation using the following parameters: serum creatinine, age, gender and race. The creatinine assay has been calibrated to be traceable to IDMS.An eGFR <60 mL/min/1.73m2 for >3 months is consistent with chronic kidney disease. Refer to KDOQI guidelines for clinical inte rpretation.In patients with unstable renal function, e.g. those with ac cowlitz kidney injury, the eGFR may not accurately reflect actual GFR. Performed By: #### PHOS, MG1 , BMP, CBCDIF ####[facility] [address] [place], [place] [phone] Glucose [Mass/Vol] 154 74-99 mg/dL High 06-22-2019 [facility] (13048) Comment: Result Comment: The [place] Diabetes Association (ADA) provides guidance for cutoff values for fastin g glucose and random glucose. The ADA defines fasting as no caloric intake for at least 8 hours. Fasting plasma glucose results between 100 to 125 m g/dL indicate increased risk for diabetes (prediabetes).Fasting plasma glucose results greater than or equal to 126 mg/dL meet the criteria for diagnosis of diabetes. In the absence of unequivocal hyperglycemia, r esults should be confirmed by repeat testing. In a patient with classic sympt oms of hyperglycemia or hyperglycemic crisis, random plasma glucose result s greater than or equal to 200 mg/dL meet the criteria for diagnosis of di abetes.Reference: Standards of Medical Care in Diabetes 2016, [place] Diab etes Association. Diabetes Care. 2016.39(Suppl 1). Performed By: #### PHOS, MG1 , BMP, CBCDIF ####[facility] [address] [place], [place] [phone] Potassium [Moles/Vol] 4.0 3.7-5.1 mmol/L Normal 06-22-[address] [facility] (81878) Comment: Performed By: #### PHOS, MG1 , BMP, CBCDIF ####[place] [address] [place], [place] [phone] Sodium [Moles/Vol] 136 136-144 mmol/L Normal 06-22-2019 [facility] (22084) Comment: Performed By: #### PHOS, MG1 , BMP, CBCDIF ####[place] [address] [place] [phone] Urea nitrogen [Mass/Vol] 12 9-24 mg/dL Normal 06-21 [facility] (10432) Comment: Performed By: #### PHOS, MG1 , BMP, CBCDIF ####[place] [address] [place], [place] [phone] type and screen on 2019-06-21 ABO/RH(D) O POSITIVE Normal 06-21-2019 [facility] (92187) Comment: Performed By: #### TSCR #### [facility] [address]CHamilton, [place] [phone] surgical pathology on 2019-06-21 SURGICAL PATHOLOGY Normal 06-21-2019 [facility] (34025) pt ed on 2019-06-21 PT ED Normal 06-21-2019 [facility] (02146) progress on 2019-06 PROGRESS Normal 06-21-2019 [facility] (26615) phosphorus on 06-20 Phosphate [Mass/Vol] 3.3 2.7-4.8 mg/dL Normal 0 [facility] (38580) Comment: Performed By: #### BMP, HBA1 C, MG1, PHOS, CBCDIF ####[facility] [place], [place] [phone] operative no on OPERATIVE NO Normal 06-21-2019 [facility] (50074) nursing prog on NURSING PROG Normal 06-21-2019 [facility] (34304) magnesium on 06-20 Magnesium [Mass/Vol] 1.0 1.7-2.3 mg/dL Low 0 [facility] (55907) Comment: Performed By: #### BMP, HBA1 C, MG1, PHOS, CBCDIF ####[place] [address] [place], [place] [phone] hemoglobin a1c on HbA1c (Bld) [Mass fraction] 5.4 4.3-5.6 % Normal [facility] (72053) Comment: Result Comment: [place] Nereida betes Association guidelines indicate that patients with HgbA1c in the range 5.7-6.4% are at increased risk for development of diabetes, and intervention by lifestyle modification may be beneficial. HgbA1c greater o r equal to 6.5% is considered diagnostic of diabetes. Performed By: #### BMP, HBA1 C, MG1, PHOS, CBCDIF ####[place] [address] [place], [place] [phone] HbA1c (Bld) [Mass fraction] 108 mg/dL Normal [facility] (58007) Comment: Result Comment: eAG: (Estima pratik average glucose) is a calculated value from HgbA1c and is mechanical service representative of the average blood glucose level in the last 2-3 month period. Performed By: #### BMP, HBA1 C, MG1, PHOS, CBCDIF ####[facility] [place], [place] [phone] cnptoutreach on CNPTOUTREACH Normal 06-21-2019 [facility] (05286) cbc and differential on 2019-06-21 Abs Baso 0.03 <0.11 k/uL Normal 06-21-2019 [facility] (17802) Comment: Performed By: #### BMP, HBA1 C, MG1, PHOS, CBCDIF ####[place] [address] [place], [place] [phone] Abs Zapata 0.42 <0.87 k/uL Normal 06-21-2019 [facility] (98369) Comment: Performed By: #### BMP, HBA1 C, MG1, PHOS, CBCDIF ####[place] [address] [place] [phone] Abs Neut 4.44 1.45-7.50 k/uL Normal 06-21-2019 [facility] (23421) Comment: Performed By: #### BMP, HBA1 C, MG1, PHOS, CBCDIF ####[facility] [place] [phone] Absolute nRBC <0.01 <0.01 Normal 06-21-2019 [facility] (21067) Comment: Performed By: #### BMP, HBA1 C, MG1, PHOS, CBCDIF ####[place] [address] [place] [phone] Basophils/100 WBC (Bld) 0.6 % Normal 2019 [facility] (20956) Comment: Performed By: #### BMP, HBA1 C, MG1, PHOS, CBCDIF ####[facility] [place] [phone] DTYPE Auto Diff Normal 06-21-2019 [facility] (88642) Comment: Performed By: #### BMP, HBA1 C, MG1, PHOS, CBCDIF ####[facility] [place] [phone] Eosinophils (Bld) [#/Vol] 0.08 <0.46 k/uL Normal 05-0 -2019 [facility] (09184) Comment: Performed By: #### BMP, HBA1 C, MG1, PHOS, CBCDIF ####[facility] [place], [place] [phone] Eosinophils/100 WBC (Bld) 1.5 % Normal 05-0 [facility] (92353) Comment: Performed By: #### BMP, HBA1 C, MG1, PHOS, CBCDIF ####[place] [address] [place] [phone] Erythrocyte distribution 16.6 11.5-15.0 % High 06-20 [facility] width (RBC) [Ratio] [place] (09906) Comment: Performed By: #### BMP, HBA1 C, MG1, PHOS, CBCDIF ####[place] [address] [place], [place] [phone] Hematocrit (Bld) [Volume 31.8 39.0-51.0 % Low 06-20 [facility] fraction] (90807) Comment: Performed By: #### BMP, HBA1 C, MG1, PHOS, CBCDIF ####[facility] [address] [place], [place] [phone] Hemoglobin (Bld) 10.3 13.0-17.0 g/dL Low 06-21-2019 [facility] [Mass/Vol] [place] (97042) Comment: Performed By: #### BMP, HBA1 C, MG1, PHOS, CBCDIF ####[facility] [address] [place], [place] [phone] Lymphocytes (Bld) [#/Vol] 0.46 1.00-4.00 k/uL Low 05-0 [facility] (20568) Comment: Performed By: #### BMP, HBA1 C, MG1, PHOS, CBCDIF ####[facility] [place], [place] [phone] Lymphocytes/100 WBC (Bld) 8.4 % Normal [facility] (32047) Comment: Performed By: #### BMP, HBA1 C, MG1, PHOS, CBCDIF ####[facility] [place], [place] [phone] MCH (RBC) [Entitic mass] 31.8 26.0-34.0 pG Normal 06-20 [facility] (89915) Comment: Performed By: #### BMP, HBA1 C, MG1, PHOS, CBCDIF ####[facility] [place], [place] [phone] MCHC (RBC) [Mass/Vol] 32.4 30.5-36.0 g/dL Normal 06-21-19 [facility] (06629) Comment: Performed By: #### BMP, HBA1 C, MG1, PHOS, CBCDIF ####[facility] [place], [place] [phone] MCV (RBC) [Entitic vol] 98.1 80.0-100.0 fL Normal 06-20 [facility] (99056) Comment: Performed By: #### BMP, HBA1 C, MG1, PHOS, CBCDIF ####[facility] [place], [place] [phone] Monocytes/100 WBC (Bld) 7.7 % Normal 2019 [facility] (32389) Comment: Performed By: #### BMP, HBA1 C, MG1, PHOS, CBCDIF ####[facility] [address] [place], [place] [phone] Neutrophils/100 WBC (Bld) 81.8 % Normal [facility] (99724) Comment: Performed By: #### BMP, HBA1 C, MG1, PHOS, CBCDIF ####[facility] [address] [place], [place] [phone] NRBCs 0.0 0 /100 WBC Normal 06-21-2019 [facility] (23094) Comment: Performed By: #### BMP, HBA1 C, MG1, PHOS, CBCDIF ####[place] [address] [place], [place] [phone] Platelet mean volume 12.7 9.0-12.7 fL Normal 0 [facility] (Bld) [Entitic vol] [place] (08629) Comment: Performed By: #### BMP, HBA1 C, MG1, PHOS, CBCDIF ####[place] [address] [place], [place] [phone] Platelets (Bld) [#/Vol] 88 150-400 k/uL Low 2019 [facility] (46729) Comment: Result Comment: No clot dete cted. Performed By: #### BMP, HBA1 C, MG1, PHOS, CBCDIF ####[place] [address] [place], [place] [phone] RBC (Bld) [#/Vol] 3.24 4.20-6.00 m/uL Low 06-21-2019 [facility] [place] [facility] (13276) Comment: Performed By: #### BMP, HBA1 C, MG1, PHOS, CBCDIF ####[facility] [place], [place] [phone] WBC (Bld) [#/Vol] 5.45 3.70-11.00 k/uL Normal 06-21-2019 [facility] (79901) Comment: Performed By: #### BMP, HBA1 C, MG1, PHOS, CBCDIF ####[place] [address] [place], [place] [phone] brief op not on 202 0-06-20 BRIEF OP NOT Normal 06-21-2019 [facility] (03386) basic metabolic panl on 2019-06-21 Anion gap [Moles/Vol] 15 9-18 mmol/L Normal 06-21-19 [facility] (24198) Comment: Performed By: #### BMP, HBA1 C, MG1, PHOS, CBCDIF ####[facility] [place] [phone] Calcium [Mass/Vol] 8.3 8.5-10.2 mg/dL Low 06-21-2019 [facility] (48221) Comment: Performed By: #### BMP, HBA1 C, MG1, PHOS, CBCDIF ####[facility] [place] [phone] Chloride [Moles/Vol] 102 97-105 mmol/L Normal 0 [facility] (69110) Comment: Performed By: #### BMP, HBA1 C, MG1, PHOS, CBCDIF ####[facility] [address] [place], [place] [phone] CO2 [Moles/Vol] 22 22-30 mmol/L Normal 06-21-2019 [facility] (80628) Comment: Performed By: #### BMP, HBA1 C, MG1, PHOS, CBCDIF ####[facility] [address] [place] [phone] Creatinine [Mass/Vol] 1.61 0.73-1.22 mg/dL High 06-21-[address] [facility] (43038) Comment: Performed By: #### BMP, HBA1 C, MG1, PHOS, CBCDIF ####[facility] [address] [place], [place] [phone] eGFR- Amer. 52 Normal 06-21-2019 [facility] (74214) Comment: Performed By: #### BMP, HBA1 C, MG1, PHOS, CBCDIF ####[facility] [address] [place], [place] [phone] GFR/1.73 sq M predicted among 43 . Normal 06-21-2019 [facility] non-blacks MDRD (S/P/Bld) [Vol (02651) rate/Area] Comment: Result Comment: eGFR (Estima pratik GFR) Units of measure: mL/min/1.73 meters squaredeGFR is derived from the reexpressed MDRD Study equation using the following parameters: serum creatinine, age, gender and race. The creatinine assay has been calibrated to be traceable to IDMS.An eGFR <60 mL/min/1.73m2 for >3 months is consistent with chronic kidney disease. Refer to KDOQI guidelines for clinical inte rpretation.In patients with unstable renal function, e.g. those with ac cowlitz kidney injury, the eGFR may not accurately reflect actual GFR. Performed By: #### BMP, HBA1 C, MG1, PHOS, CBCDIF ####[facility] [address] AircarePalos [place], [place] [phone] Glucose [Mass/Vol] 132 74-99 mg/dL High 06-21-2019 [facility] (29945) Comment: Result Comment: The [place] Diabetes Association (ADA) provides guidance for cutoff values for fastin g glucose and random glucose. The ADA defines fasting as no caloric intake for at least 8 hours. Fasting plasma glucose results between 100 to 125 m g/dL indicate increased risk for diabetes (prediabetes).Fasting plasma glucose results greater than or equal to 126 mg/dL meet the criteria for diagnosis of diabetes. In the absence of unequivocal hyperglycemia, r esults should be confirmed by repeat testing. In a patient with classic sympt oms of hyperglycemia or hyperglycemic crisis, random plasma glucose result s greater than or equal to 200 mg/dL meet the criteria for diagnosis of di abetes.Reference: Standards of Medical Care in Diabetes 2016, [place] Diab etes Association. Diabetes Care. 2016.39(Suppl 1). Performed By: #### BMP, HBA1 C, MG1, PHOS, CBCDIF ####[facility] [address] [place], [place] [phone] Potassium [Moles/Vol] 4.4 3.7-5.1 mmol/L Normal 06-21-19 [facility] (52890) Comment: Performed By: #### BMP, HBA1 C, MG1, PHOS, CBCDIF ####[facility] [address] [place], [place] [phone] Sodium [Moles/Vol] 139 136-144 mmol/L Normal 06-21-2019 [facility] (11509) Comment: Performed By: #### BMP, HBA1 C, MG1, PHOS, CBCDIF ####[facility] [place], [place] [phone] Urea nitrogen [Mass/Vol] 13 9-24 mg/dL Normal 06-20 [facility] (20456) Comment: Performed By: #### BMP, HBA1 C, MG1, PHOS, CBCDIF ####[facility] [place], [place] [phone] anes post on 2019-0 5-04 ANES POST Normal 06-21-2019 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 CoV2) by PCR. Comment: Result Comment: This test wa s developed and its performance characteristics determined by [facility] [place]. This handy t has been authorized by FDA under an Emergency Use Authorization (EUA).This test has been validated in accordance with the FDA's Guidance Document Elías icy for Diagnostics Testing in Laboratories Certified to Perform High Co mplexity Testing under CLIA prior to Emergency use Authorization for Mancini virus Disease 2019 during the Public Health Emergency issued on 2019. Performed By: #### COVID ### #[facility] [address], [place] [phone] COVID 19 Source [employer] Nasopharyngeal Swab Normal 0 4-30-2020 [facility] (19314) Comment: Performed By: #### COVID ### #[place] [address], [place] [phone] comp metabolic panel on 2019-06-16 Albumin [Mass/Vol] 3.8 3.9-4.9 g/dL Low 06-16-2019 [facility] (40004) Comment: Performed By: #### Rayray WADE MP ####[place] [address], [place] [phone] ALP [Catalytic activity/Vol] 157 38-113 U/L High 0 06-16-2019 [facility] (17662) Comment: Performed By: #### Rayray WADE MP ####[place] [address], [place] [phone] ALT [Catalytic activity/Vol] 40 10-54 U/L Normal 0 06-16-2019 [facility] (03857) Comment: Performed By: #### Rayray WADE MP ####[place] [address], [place] [phone]- [phone] Anion gap [Moles/Vol] 14 9-18 mmol/L Normal 06-16-[address] [facility] (16212) Comment: Performed By: #### Rayray WADE MP ####[place] [address], [place] [phone]- [phone] AST [Catalytic activity/Vol] 48 14-40 U/L High 0 06-16-2019 [facility] (99964) Comment: Performed By: #### Rayray WADE MP ####[place] [address], [place] [phone] Bilirubin [Mass/Vol] 0.4 0.2-1.3 mg/dL Normal 0 [facility] (45953) Comment: Performed By: #### Rayray WADE MP ####[place] [address] [place], [place] [phone] Calcium [Mass/Vol] 8.7 8.5-10.2 mg/dL Normal 06-16-2019 [facility] (04728) Comment: Performed By: #### Rayray WADE MP ####[place] [address] [place], [place] [phone] Chloride [Moles/Vol] 109 97-105 mmol/L High 0 [facility] (04757) Comment: Performed By: #### Rayray WADE MP ####[place] [address], [place] [phone] CO2 [Moles/Vol] 18 22-30 mmol/L Low 06-16-2019 [facility] (35808) Comment: Performed By: #### Rayray WADE MP ####[place] [address], [place] [phone]- [phone] Creatinine [Mass/Vol] 1.78 0.73-1.22 mg/dL High 06-16-[address] [facility] (29249) Comment: Performed By: #### Rayray WADE MP ####[place] [address], [place] [phone]- [phone] eGFR- Amer. 46 Normal 06-16-2019 [facility] (32054) Comment: Performed By: #### Rayray WADE MP ####[place] [address] [place], [place] [phone]- [phone] GFR/1.73 sq M predicted among 38 . Normal 06-16-2019 [facility] non-blacks MDRD (S/P/Bld) [Vol (10451) rate/Area] Comment: Result Comment: eGFR (Estima pratik GFR) Units of measure: mL/min/1.73 meters squaredeGFR is derived from the reexpressed MDRD Study equation using the following parameters: serum creatinine, age, gender and race. The creatinine assay has been calibrated to be traceable to IDMS.An eGFR <60 mL/min/1.73m2 for >3 months is consistent with chronic kidney disease. Refer to KDOQI guidelines for clinical inte rpretation.In patients with unstable renal function, e.g. those with ac cowlitz kidney injury, the eGFR may not accurately reflect actual GFR. Performed By: #### Rayray WADE MP ####[facility] [place], [place] [phone]- [phone] Glucose [Mass/Vol] 162 74-99 mg/dL High 06-16-2019 [facility] (54552) Comment: Result Comment: The [place] Diabetes [employer] (ADA) provides guidance for cutoff values for fastin g glucose and random glucose. The ADA defines fasting as no caloric intake for at least 8 hours. Fasting plasma glucose results between 100 to 125 m g/dL indicate increased risk for diabetes (prediabetes).Fasting plasma glucose results greater than or equal to 126 mg/dL meet the criteria for diagnosis of diabetes. In the absence of unequivocal hyperglycemia, r esults should be confirmed by repeat testing. In a patient with classic sympt oms of hyperglycemia or hyperglycemic crisis, random plasma glucose result s greater than or equal to 200 mg/dL meet the criteria for diagnosis of di abetes.Reference: Standards of Medical Care in Diabetes 2016, [place] Diab etes Association. Diabetes Care. 2016.39(Suppl 1). Performed By: #### Rayray WADE MP ####[facility] [address] [place], [place] [phone] Potassium [Moles/Vol] 4.1 3.7-5.1 mmol/L Normal 06-16-19 [facility] (95656) Comment: Performed By: #### Rayray WADE MP ####[facility], [place] [phone]- [phone] Protein [Mass/Vol] 5.7 6.3-8.0 g/dL Low 06-16-2019 [facility] (90857) Comment: Performed By: #### Rayray WADE MP ####[facility] [address]CH[address], [place] [phone]- [phone] Sodium [Moles/Vol] 141 136-144 mmol/L Normal 06-16-2019 [facility] (77953) Comment: Performed By: #### CBCLUH C MP ####[place] [address] [place] [phone] Urea nitrogen [Mass/Vol] 10 9-24 mg/dL Normal 06-15 [facility] (57022) Comment: Performed By: #### CBCLUH C MP ####[place] [address]level[address] [phone] cbc and differential on 2019-06-16 Abs Baso 0.03 <0.11 k/uL Normal 06-16-2019 [facility] (36819) Comment: Performed By: #### CBCLUH C MP ####[place] [address] [phone] Abs Zapata 0.35 <0.87 k/uL Normal 06-16-2019 [facility] (04467) Comment: Performed By: #### CBCLUH C MP ####[place] [address] [phone] Abs Neut 2.85 1.45-7.50 k/uL Normal 06-16-2019 [facility] (51131) Comment: Performed By: #### CBCLUH C MP ####[place] [address]ClevelJohn [address] [phone]- [phone] Absolute nRBC <0.01 <0.01 Normal 06-16-2019 [facility] (61608) Comment: Performed By: #### CBCLUH C MP ####[place] [address]ClevelJohn [address] [phone]- [phone] Basophils/100 WBC (Bld) 0.8 % Normal 2019 [facility] (92710) Comment: Performed By: #### CBCLUH C MP ####[place] [address], [place] [phone]- [phone] DTYPE Auto Diff Normal 06-16-2019 [facility] (43912) Comment: Performed By: #### CBCLUH C MP ####[place] [address], [place] [phone]- [phone] Eosinophils (Bld) [#/Vol] 0.14 <0.46 k/uL Normal 05-19 [facility] (66054) Comment: Performed By: #### CBCLUH C MP ####[place] [address], [place] [phone]- [phone] Eosinophils/100 WBC (Bld) 3.6 % Normal 05-19 [facility] (90772) Comment: Performed By: #### CBCLUH C MP ####[address] [phone]- [phone] Erythrocyte distribution 17.2 11.5-15.0 % High 06-15 [facility] width (RBC) [Ratio] [place] (34652) Comment: Performed By: #### MAURO C MP ####[address], [place] [phone]- [phone] Hematocrit (Bld) [Volume 32.9 39.0-51.0 % Low 06-15 [facility] fraction] (91540) Comment: Performed By: #### CBCLUH C MP ####[place] [address], [place] [phone]- [phone] Hemoglobin (Bld) 10.4 13.0-17.0 g/dL Low 06-16-2019 [facility] [Mass/Vol] [place] (18876) Comment: Performed By: #### CBCLUH C MP ####[place] [address], [place] [phone]- [phone] Lymphocytes (Bld) [#/Vol] 0.55 1.00-4.00 k/uL Low 05-19 [facility] (83732) Comment: Performed By: #### CBCLUH C MP ####[facility], [place] [phone]- [phone] Lymphocytes/100 WBC (Bld) 14.0 % Normal 05-19 [facility] (66440) Comment: Performed By: #### CBCLUH C MP ####[place] [address], [place] [phone]- [phone] MCH (RBC) [Entitic mass] 31.6 26.0-34.0 pG Normal 06-15 [facility] (23074) Comment: Performed By: #### MAURO C MP ####[place] [address], [place] [phone]- [phone] MCHC (RBC) [Mass/Vol] 31.6 30.5-36.0 g/dL Normal 06-16-19 [facility] (08564) Comment: Performed By: #### MAURO C MP ####[place] [address], [place] [phone]- [phone] MCV (RBC) [Entitic vol] 100.0 80.0-100.0 fL Normal 06-15 [facility] (41353) Comment: Performed By: #### MAURO C MP ####[place] [address], [place] [phone] Monocytes/100 WBC (Bld) 8.9 % Normal 2019 [facility] (85201) Comment: Performed By: #### CBCLUH C MP ####[place] [address]CH[place], [place] [phone]- [phone] Neutrophils/100 WBC (Bld) 72.7 % Normal 05-19 [facility] (17203) Comment: Performed By: #### CBCLUH C MP ####[place] [address], [place] [phone] NRBCs 0.0 0 /100 WBC Normal 06-16-2019 [facility] (19988) Comment: Performed By: #### MAURO C MP ####[place] [address]CH[address], [place] [phone] Platelet mean volume (Bld) 12.8 9.0-12.[address] [facility] [Entitic vol] (47960 ) Comment: Performed By: #### MAURO C MP ####[place] [address], [place] [phone] Platelets (Bld) [#/Vol] 86 150-400 k/uL Low 2019 [facility] (56653) Comment: Result Comment: Result check ed and verifiedNo clot detected. Performed By: #### MAURO C MP ####[place] [address], [place] [phone] RBC (Bld) [#/Vol] 3.29 4.20-6.00 m/uL Low 06-16-2019 [facility] (75840) Comment: Performed By: #### MAURO C MP ####[place] [address], [place] [phone]- [phone] WBC (Bld) [#/Vol] 3.92 3.70-11.00 k/uL Normal 06-16-2019 [facility] (65430) Comment: Performed By: #### MAURO C MP ####[place] [address], [place] [phone] xr colon single contrast on 2019-06-15 XR COLON SINGLE CONTRAST Normal 06-14 [facility] (60247) type and screen on 2019-06-15 ABO/RH(D) O POSITIVE Normal 06-15-2019 [facility] (51962) Comment: Performed By: #### TSCR #### [place] [address], [place] [phone] progress on 2019-05 PROGRESS Normal 06-15-2019 [facility] (58214) PROGRESS Normal 06-15-2019 [facility] (87189) PROGRESS Normal 06-15-2019 [facility] (97929) PROGRESS Normal 06-15-2019 [facility] (77304) PROGRESS Normal 06-15-2019 [facility] (17823) iron and tibc on 07-06-27 Iron [Mass/Vol] 48 41-186 ug/dL Normal 06-15-2019 [facility] (55745) Comment: Performed By: #### IRON, CBC DIF, FERR ####[address] 44 [phone] TIBC 384 232-386 ug/dL Normal 06-15-2019 [facility] (47041) Comment: Performed By: #### IRON, CBC DIF, FERR ####[address] 44 [phone] Transferrin Saturatn 13 15-57 % Low 0 [facility] (87548) Comment: Performed By: #### IRON, CBC DIF, FERR ####[address] 44 [phone] history physical on 2019-06-15 HISTORY PHYSICAL Normal 06-15-2019 [facility] (31040) ferritin on 2019-05 Ferritin [Mass/Vol] 137.0 30.3-565.7 ng/mL Normal 0 [facility] (85453) Comment: Performed By: #### IRON, CBC DIF, FERR ####[address] 44 [phone] cnov on 2019-06-15 CNOV Normal 06-15-2019 [facility] (76300) CNOV Normal 06-15-2019 [facility] (10512) cnnurse on CNNURSE Normal 06-15-2019 [facility] (79208) cncnpated on 06-14 CNCNPATED Normal 06-15-2019 [facility] (60042) cbc and differential on 2019-06-15 Abs Baso 0.06 <0.11 k/uL Normal 06-15-2019 [facility] (13505) Comment: Performed By: #### IRON, CBC DIF, FERR ####[place] [address] [place] [address] [phone] Abs Zapata 0.62 <0.87 k/uL Normal 06-15-2019 [facility] (25077) Comment: Performed By: #### IRON, CBC DIF, FERR ####[place] [address] [place] [address] [phone] Abs Neut 4.61 1.45-7.50 k/uL Normal 06-15-2019 [facility] (47311) Comment: Performed By: #### IRON, CBC DIF, FERR ####[place] [address] [address] [phone] Absolute nRBC <0.01 <0.01 Normal 06-15-2019 [facility] (01846) Comment: Performed By: #### IRON, CBC DIF, FERR ####[place] [address] [address] [phone] Basophils/100 WBC (Bld) 1.0 % Normal 2019 [facility] (14313) Comment: Performed By: #### IRON, CBC DIF, FERR ####[facility] [address] [phone] DTYPE Auto Diff Normal 06-15-2019 [facility] (10682) Comment: Performed By: #### IRON, CBC DIF, FERR ####[facility]ClevelRobert [place] [address] [phone] Eosinophils (Bld) [#/Vol] 0.17 <0.46 k/uL Normal 05-19 [facility] (79741) Comment: Performed By: #### IRON, CBC DIF, FERR ####[place] [address] [place] [address] Eosinophils/100 WBC (Bld) 2.8 % Normal 05-19 [facility] (43036) Comment: Performed By: #### IRON, CBC DIF, FERR ####[place] [address] [place] [address] Erythrocyte distribution 17.0 11.5-15.0 % High 06-14 [facility] width (RBC) [Ratio] [place] (46215) Comment: Performed By: #### IRON, CBC DIF, FERR ####[place] [address] [place] [address] Hematocrit (Bld) [Volume 35.2 39.0-51.0 % Low 06-14 [facility] fraction] (58912) Comment: Performed By: #### IRON, CBC DIF, FERR ####[place] [address] [place] [address] Hemoglobin (Bld) 11.4 13.0-17.0 g/dL Low 06-15-2019 [facility] [Mass/Vol] [place] (09047) Comment: Performed By: #### IRON, CBC DIF, FERR ####[place] [address] [place] [address] Lymphocytes (Bld) [#/Vol] 0.66 1.00-4.00 k/uL Low 05-19 [facility] (95155) Comment: Performed By: #### IRON, CBC DIF, FERR ####[place] [address] [place] [address] [phone] Lymphocytes/100 WBC (Bld) 10.8 % Normal 05-19 [facility] (78098) Comment: Performed By: #### IRON, CBC DIF, FERR ####[place] [address] [place] [address] [phone] MCH (RBC) [Entitic mass] 31.9 26.0-34.0 pG Normal 06-14 [facility] (08963) Comment: Performed By: #### IRON, CBC DIF, FERR ####[place] [address] [place] [address] [phone] MCHC (RBC) [Mass/Vol] 32.4 30.5-36.0 g/dL Normal 06-15-19 [facility] (17431) Comment: Performed By: #### IRON, CBC DIF, FERR ####[place] [address] [place] [address] [phone] MCV (RBC) [Entitic vol] 98.6 80.0-100.0 fL Normal 06-14 [facility] (39734) Comment: Performed By: #### IRON, CBC DIF, FERR ####[place] [address] [place] [address] [phone] Monocytes/100 WBC (Bld) 10.1 % Normal 2019 [facility] (01168) Comment: Performed By: #### IRON, CBC DIF, FERR ####[place] [address] [place] [address] [phone] Neutrophils/100 WBC (Bld) 75.3 % Normal 05-19 [facility] (30147) Comment: Performed By: #### IRON, CBC DIF, FERR ####[place] [address] [place] [address] [phone] NRBCs 0.0 0 /100 WBC Normal 06-15-2019 [facility] (09622) Comment: Performed By: #### IRON, CBC DIF, FERR ####[place] [address] [place] [address] [phone] Platelet mean volume 12.5 9.0-12.7 fL Normal 0 [facility] (Bld) [Entitic vol] [place] (64541) Comment: Performed By: #### IRON, CBC DIF, FERR ####[place] [address] [place] [address] [phone] Platelets (Bld) [#/Vol] 113 150-400 k/uL Low 2019 [facility] (97473) Comment: Performed By: #### IRON, CBC DIF, FERR ####[place] [address] [address] [phone] RBC (Bld) [#/Vol] 3.57 4.20-6.00 m/uL Low 06-15-2019 [facility] (54208) Comment: Performed By: #### IRON, CBC DIF, FERR ####[place] [address] [place] [address] [phone] WBC (Bld) [#/Vol] 6.12 3.70-11.00 k/uL Normal 06-15-2019 [facility] (52606) Comment: Performed By: #### IRON, CBC DIF, FERR ####[place] [address] [place] [address] [phone] progress on 2019-05 PROGRESS Normal 06-14-2019 [facility] (38622) cnpn on 2019-06-10 CNPN Normal 06-10-2019 [facility] (13229) progress on 2019-05 PROGRESS Normal 06-09-2019 [facility] (26940) comp metabolic panel on 2019-06-08 Albumin [Mass/Vol] 4.0 3.9-4.9 g/dL Normal 06-08-2019 [facility] (50305) Comment: Performed By: #### CMP, CBCD IF ####[place] [address], [place] [phone] ALP [Catalytic activity/Vol] 208 38-113 U/L High 0 06-08-2019 [facility] (49774) Comment: Performed By: #### CMP, CBCD IF ####[facility], [place] [phone] ALT [Catalytic activity/Vol] 41 10-54 U/L Normal 0 06-08-2019 [facility] (47055) Comment: Performed By: #### CMP, CBCD IF ####[facility], [place] [phone] Anion gap [Moles/Vol] 13 9-18 mmol/L Normal 06-08-[address] [facility] (71321) Comment: Performed By: #### CMP, CBCD IF ####[place] [address], [place] [phone] AST [Catalytic activity/Vol] 38 14-40 U/L Normal 0 06-08-2019 [facility] (91540) Comment: Performed By: #### CMP, CBCD IF ####[place] [address], [place] [phone] Bilirubin [Mass/Vol] 0.3 0.2-1.3 mg/dL Normal 0 [facility] (50178) Comment: Performed By: #### CMP, CBCD IF ####[place] [address], [place] [phone] Calcium [Mass/Vol] 9.6 8.5-10.2 mg/dL Normal 06-08-2019 [facility] (49091) Comment: Performed By: #### CMP, CBCD IF ####[place] [address], [place] [phone] Chloride [Moles/Vol] 109 97-105 mmol/L High 0 [facility] (67093) Comment: Performed By: #### CMP, CBCD IF ####[facility], [place] [phone] CO2 [Moles/Vol] 18 22-30 mmol/L Low 06-08-2019 [facility] (11421) Comment: Performed By: #### CMP, CBCD IF ####[facility] [address]CHam[place], [place] [phone] Creatinine [Mass/Vol] 1.71 0.73-1.22 mg/dL High 06-08-[address] [facility] (98424) Comment: Performed By: #### CMP, CBCD IF ####[facility] [address]CHam[place], [place] [phone] eGFR- Amer. 48 Normal 06-08-2019 [facility] (61891) Comment: Performed By: #### CMP, CBCD IF ####[facility] [address]CHam[place], [place] [phone] GFR/1.73 sq M predicted among 40 . Normal 06-08-2019 [facility] non-blacks MDRD (S/P/Bld) [Vol (67750) rate/Area] Comment: Result Comment: eGFR (Estima pratik GFR) Units of measure: mL/min/1.73 meters squaredeGFR is derived from the reexpressed MDRD Study equation using the following parameters: serum creatinine, age, gender and race. The creatinine assay has been calibrated to be traceable to IDMS.An eGFR <60 mL/min/1.73m2 for >3 months is consistent with chronic kidney disease. Refer to KDOQI guidelines for clinical inte rpretation.In patients with unstable renal function, e.g. those with ac cowlitz kidney injury, the eGFR may not accurately reflect actual GFR. Performed By: #### CMP, CBCD IF ####[facility] [address]CH[address], [place] [phone] Glucose [Mass/Vol] 146 74-99 mg/dL High 06-08-2019 [facility] (75395) Comment: Result Comment: The [place] Diabetes [employer] (ADA) provides guidance for cutoff values for fastin g glucose and random glucose. The ADA defines fasting as no caloric intake for at least 8 hours. Fasting plasma glucose results between 100 to 125 m g/dL indicate increased risk for diabetes (prediabetes).Fasting plasma glucose results greater than or equal to 126 mg/dL meet the criteria for diagnosis of diabetes. In the absence of unequivocal hyperglycemia, r esults should be confirmed by repeat testing. In a patient with classic sympt oms of hyperglycemia or hyperglycemic crisis, random plasma glucose result s greater than or equal to 200 mg/dL meet the criteria for diagnosis of di abetes.Reference: Standards of Medical Care in Diabetes 2016, [place] Diab etes Association. Diabetes Care. 2016.39(Suppl 1). Performed By: #### CMP, CBCD IF ####[place] [address] [place] [phone] Potassium [Moles/Vol] 4.1 3.7-5.1 mmol/L Normal 06-08-19 [facility] (56490) Comment: Performed By: #### CMP, CBCD IF ####[address] [place] [phone] Protein [Mass/Vol] 5.9 6.3-8.0 g/dL Low 06-08-2019 [facility] (84256) Comment: Performed By: #### CMP, CBCD IF ####[address] [place] [phone] Sodium [Moles/Vol] 140 136-144 mmol/L Normal 06-08-2019 [facility] (58768) Comment: Performed By: #### CMP, CBCD IF ####[place] [address] [place] [phone] Urea nitrogen [Mass/Vol] 13 9-24 mg/dL Normal 06-07 [facility] (93264) Comment: Performed By: #### CMP, CBCD IF ####[address] [place] [phone] cbc and differential on 2019-06-08 Abs Baso <0.03 <0.11 Normal 06-08-2019 [facility] (42103) Comment: Performed By: #### CMP, CBCD IF ####[place] [address] [place] [phone] Abs Zapata 0.36 <0.87 k/uL Normal 06-08-2019 [facility] (07282) Comment: Performed By: #### CMP, CBCD IF ####[place] [address] [place] [phone] Abs Neut 2.86 1.45-7.50 k/uL Normal 06-08-2019 [facility] (75942) Comment: Performed By: #### CMP, CBCD IF ####[place] [address] [place] [phone] Absolute nRBC <0.01 <0.01 Normal 06-08-2019 [facility] (33140) Comment: Performed By: #### CMP, CBCD IF ####[place] [address] [place] [phone] Basophils/100 WBC (Bld) 0.5 % Normal 2019 [facility] (16837) Comment: Performed By: #### CMP, CBCD IF ####[place] [address] [place] [phone] DTYPE Auto Diff Normal 06-08-2019 [facility] (38495) Comment: Performed By: #### CMP, CBCD IF ####[place] [address] [place] [phone] Eosinophils (Bld) [#/Vol] 0.16 <0.46 k/uL Normal 05-19 [facility] (84681) Comment: Performed By: #### CMP, CBCD IF ####[place] [address] [place] [phone] Eosinophils/100 WBC (Bld) 4.0 % Normal 05-19 [facility] (06795) Comment: Performed By: #### CMP, CBCD IF ####[place] [address] [place] [phone] Erythrocyte distribution 16.8 11.5-15.0 % High 06-07 [facility] width (RBC) [Ratio] [place] (91786) Comment: Performed By: #### CMP, CBCD IF ####[place] [address], [place] [phone] Hematocrit (Bld) [Volume 31.5 39.0-51.0 % Low 06-07 [facility] fraction] (62620) Comment: Performed By: #### CMP, CBCD IF ####[place] [address], [place] [phone]- [phone] Hemoglobin (Bld) 10.3 13.0-17.0 g/dL Low 06-08-2019 [facility] [Mass/Vol] [place] (94243) Comment: Performed By: #### CMP, CBCD IF ####[place] [address], [place] [phone]- [phone] Lymphocytes (Bld) [#/Vol] 0.58 1.00-4.00 k/uL Low 05-19 [facility] (87435) Comment: Performed By: #### CMP, CBCD IF ####[place] [address], [place] [phone] Lymphocytes/100 WBC (Bld) 14.5 % Normal 05-19 [facility] (13848) Comment: Performed By: #### CMP, CBCD IF ####[place] [address], [place] [phone]- [phone] MCH (RBC) [Entitic mass] 32.3 26.0-34.0 pG Normal 06-07 [facility] (13656) Comment: Performed By: #### CMP, CBCD IF ####[place] [address], [place] [phone]- [phone] MCHC (RBC) [Mass/Vol] 32.7 30.5-36.0 g/dL Normal 06-08-19 [facility] (77487) Comment: Performed By: #### CMP, CBCD IF ####[facility], [place] [id number]- [phone] MCV (RBC) [Entitic vol] 98.7 80.0-100.0 fL Normal 06-07 [facility] ([id number]) Comment: Performed By: #### CMP, CBCD IF ####[facility] [id number]- [phone] Monocytes/100 WBC (Bld) 9.0 % Normal 2019 [facility] (62383) Comment: Performed By: #### CMP, CBCD IF ####[place] [address], [place] [phone] Neutrophils/100 WBC (Bld) 72.0 % Normal 05-19 [facility] (57877) Comment: Performed By: #### CMP, CBCD IF ####[facility], [place] [phone]- [phone] NRBCs 0.0 0 /100 WBC Normal 06-08-2019 [facility] (10573) Comment: Performed By: #### CMP, CBCD IF ####[facility], [place] 38607774- [phone] Platelet mean volume (Bld) 12.8 9.0-12.[address] [facility] [Entitic vol] (88314 ) Comment: Performed By: #### CMP, CBCD IF ####[facility], [place] 86302431- [phone] Platelets (Bld) [#/Vol] 115 150-400 k/uL Low 2019 [facility] (86129) Comment: Performed By: #### CMP, CBCD IF ####[facility], [place] [phone]- [phone] RBC (Bld) [#/Vol] 3.19 4.20-6.00 m/uL Low 06-08-2019 [facility] (14022) Comment: Performed By: #### CMP, CBCD IF ####[place] [address], [place] [phone]- [phone] WBC (Bld) [#/Vol] 4.00 3.70-11.00 k/uL Normal 06-08-2019 [facility] (07493) Comment: Performed By: #### CMP, CBCD IF ####[place] [address], [place] [phone]- [phone] cnpn on 2019-06-07 CNPN Normal 06-07-2019 [facility] (79980) cnpn on 2019-06-04 CNPN Normal 06-04-2019 [facility] (79305) comp metabolic panel on 2019-06-02 Albumin [Mass/Vol] 3.7 3.9-4.9 g/dL Low 06-02-2019 [facility] (89042) Comment: Performed By: #### Rayray WADE MP ####[place] [address] [place], [place] [phone]- [phone] ALP [Catalytic activity/Vol] 223 38-113 U/L High 0 06-02-2019 [facility] (10724) Comment: Performed By: #### Rayray WADE MP ####[place] [address], [place] [phone]- [phone] ALT [Catalytic activity/Vol] 42 10-54 U/L Normal 0 06-02-2019 [facility] (76910) Comment: Performed By: #### Rayray WADE MP ####[facility], [place] [phone]- [phone] Anion gap [Moles/Vol] 12 9-18 mmol/L Normal 06-02-19 [facility] (24234) Comment: Performed By: #### Rayray WADE MP ####[facility], [place] 70003707- [phone] AST [Catalytic activity/Vol] 46 14-40 U/L High 0 06-02-2019 [facility] (68309) Comment: Performed By: #### Rayray WADE MP ####[facility], [place] 17598844- [phone] Bilirubin [Mass/Vol] 0.4 0.2-1.3 mg/dL Normal 0 [facility] (63281) Comment: Performed By: #### Rayray WADE MP ####[place] [address], [place] [phone]- [phone] Calcium [Mass/Vol] 9.0 8.5-10.2 mg/dL Normal 06-02-2019 [facility] (61137) Comment: Performed By: #### Rayray WADE MP ####[place] [address], [place] 07963456- [phone] Chloride [Moles/Vol] 107 97-105 mmol/L High 0 [facility] (42019) Comment: Performed By: #### Rayray WADE MP ####[place] [address], [place] 84123061- [phone] CO2 [Moles/Vol] 18 22-30 mmol/L Low 06-02-2019 [facility] (12936) Comment: Performed By: #### Rayray WADE MP ####[facility], [place] 80229537- [phone] Creatinine [Mass/Vol] 1.61 0.73-1.22 mg/dL High 06-02-[address] [facility] (82279) Comment: Performed By: #### Rayray WADE MP ####[facility], [place] 48232169- [phone] eGFR- Amer. 52 Normal 06-02-2019 [facility] (73753) Comment: Performed By: #### Rayray WADE MP ####[facility] [address] [place], [place] [phone]- [phone] GFR/1.73 sq M predicted among 43 . Normal 06-02-2019 [facility] non-blacks MDRD (S/P/Bld) [Vol (97790) rate/Area] Comment: Result Comment: eGFR (Estima pratik GFR) Units of measure: mL/min/1.73 meters squaredeGFR is derived from the reexpressed MDRD Study equation using the following parameters: serum creatinine, age, gender and race. The creatinine assay has been calibrated to be traceable to IDMS.An eGFR <60 mL/min/1.73m2 for >3 months is consistent with chronic kidney disease. Refer to KDOQI guidelines for clinical inte rpretation.In patients with unstable renal function, e.g. those with ac cowlitz kidney injury, the eGFR may not accurately reflect actual GFR. Performed By: #### Rayray WADE MP ####[facility] [address], [place] [phone]- [phone] Glucose [Mass/Vol] 133 74-99 mg/dL High 06-02-2019 [facility] (98926) Comment: Result Comment: The [place] [employer] (ADA) provides guidance for cutoff values for fastin g glucose and random glucose. The ADA defines fasting as no caloric intake for at least 8 hours. Fasting plasma glucose results between 100 to 125 m g/dL indicate increased risk for diabetes (prediabetes).Fasting plasma glucose results greater than or equal to 126 mg/dL meet the criteria for diagnosis of diabetes. In the absence of unequivocal hyperglycemia, r esults should be confirmed by repeat testing. In a patient with classic sympt oms of hyperglycemia or hyperglycemic crisis, random plasma glucose result s greater than or equal to 200 mg/dL meet the criteria for diagnosis of di abetes.Reference: Standards of Medical Care in Diabetes 2016, [place] Diab etes Association. Diabetes Care. 2016.39(Suppl 1). Performed By: #### Rayray WADE MP ####[facility] [address], [place] [phone]- [phone] Potassium [Moles/Vol] 4.1 3.7-5.1 mmol/L Normal 06-02-[address] [facility] (91550) Comment: Performed By: #### Rayray WADE MP ####[facility] [place], [place] [id number]- [phone] Protein [Mass/Vol] 5.6 6.3-8.0 g/dL Low 06-02-2019 [facility] (69212) Comment: Performed By: #### Rayray WADE MP ####[address] [place] [id number]- [phone] Sodium [Moles/Vol] 137 136-144 mmol/L Normal 06-02-2019 [facility] (29412) Comment: Performed By: #### Rayray WADE MP ####[address] [place] [id number]- [phone] Urea nitrogen [Mass/Vol] 13 9-24 mg/dL Normal 06-01 [facility] (95343) Comment: Performed By: #### Rayray WADE MP ####[address] [place], [place] [phone]- [phone] cbc and differential on 2019-06-02 Abs Baso <0.03 <0.11 Normal 06-02-2019 [facility] (15275) Comment: Performed By: #### Rayray WADE MP ####[place] [address], [place] [phone]- [phone] Abs Zapata 0.49 <0.87 k/uL Normal 06-02-2019 [facility] (20418) Comment: Performed By: #### Rayray WADE MP ####[place] [address] [place], [place] 83653870- [phone] Abs Neut 4.44 1.45-7.50 k/uL Normal 06-02-2019 [facility] (72936) Comment: Performed By: #### MAURO C MP ####[facility], [place] [phone]- [phone] Absolute nRBC <0.01 <0.01 Normal 06-02-2019 [facility] (01522) Comment: Performed By: #### CBCLUH C MP ####[place] [address] [place] [phone]- [phone] Basophils/100 WBC (Bld) 0.4 % Normal 2019 [facility] (58846) Comment: Performed By: #### CBCLUH C MP ####[place] [address] [place] [phone]- [phone] DTYPE Auto Diff Normal 06-02-2019 [facility] (79199) Comment: Performed By: #### CBCLUH C MP ####[place] [address] [place] [phone]- [phone] Eosinophils (Bld) [#/Vol] 0.14 <0.46 k/uL Normal 05-18 [facility] (34085) Comment: Performed By: #### CBCLUH C MP ####[place] [address] [place] [phone]- [phone] Eosinophils/100 WBC (Bld) 2.5 % Normal 05-18 [facility] (61172) Comment: Performed By: #### CBCLUH C MP ####[place] [address] [place] [phone]- [phone] Erythrocyte distribution 17.3 11.5-15.0 % High 06-01 [facility] width (RBC) [Ratio] [place] (22753) Comment: Performed By: #### CBCLUH C MP ####[place] [address] [place] [phone]- [phone] Hematocrit (Bld) [Volume 31.1 39.0-51.0 % Low 06-01 [facility] fraction] (23650) Comment: Performed By: #### CBCLUH C MP ####[place] [address], [place] [phone]- [phone] Hemoglobin (Bld) 10.1 13.0-17.0 g/dL Low 06-02-2019 [facility] [Mass/Vol] [place] (75412) Comment: Performed By: #### MAURO C MP ####[place] [address] [place] [phone]- [phone] Lymphocytes (Bld) [#/Vol] 0.58 1.00-4.00 k/uL Low 05-18 [facility] (61588) Comment: Performed By: #### MAURO C MP ####[place] [address], [place] [phone]- [phone] Lymphocytes/100 WBC (Bld) 10.2 % Normal 05-18 [facility] (66386) Comment: Performed By: #### MAURO C MP ####[place] [address], [place] [phone]- [phone] MCH (RBC) [Entitic mass] 32.4 26.0-34.0 pG Normal 06-01 [facility] (57088) Comment: Performed By: #### MAURO C MP ####[place] [address], [place] [phone]- [phone] MCHC (RBC) [Mass/Vol] 32.5 30.5-36.0 g/dL Normal 06-02-19 [facility] (11165) Comment: Performed By: #### MAURO C MP ####[place] [address], [place] [phone]- [phone] MCV (RBC) [Entitic vol] 99.7 80.0-100.0 fL Normal 06-01 [facility] (81609) Comment: Performed By: #### CBCLUH C MP ####[facility], [place] 40117725- [phone] Monocytes/100 WBC (Bld) 8.6 % Normal 2019 [facility] (20541) Comment: Performed By: #### CBCLUH C MP ####[place] [address], [place] 78791608- [phone] Neutrophils/100 WBC (Bld) 78.3 % Normal 05-18 [facility] (21122) Comment: Performed By: #### CBCLUH C MP ####[place] [address], [place] 30051125- [phone] NRBCs 0.0 0 /100 WBC Normal 06-02-2019 [facility] (82756) Comment: Performed By: #### CBCLUH C MP ####[place] [address], [place] [phone] Platelet mean volume (Bld) 13.0 9.0-12.[address] [facility] [Entitic vol] (41699 ) Comment: Performed By: #### CBCLUH C MP ####[place] [address], [place] 30587304- [phone] Platelets (Bld) [#/Vol] 105 150-400 k/uL Low 2019 [facility] (43869) Comment: Result Comment: Result check ed and verifiedNo clot detected. Performed By: #### CBCLUH C MP ####[facility], [place] [id number]- [phone] RBC (Bld) [#/Vol] 3.12 4.20-6.00 m/uL Low 06-02-2019 [facility] (69131) Comment: Performed By: #### CBCLUH C MP ####[place] [address], [place] [phone]- [phone] WBC (Bld) [#/Vol] 5.67 3.70-11.00 k/uL Normal 06-02-2019 [facility] (03466) Comment: Performed By: #### CBCRayray ARVIZU MP ####[address] [place], [place] [phone]- [phone] comp metabolic panel on 2019-05-26 Albumin [Mass/Vol] 3.8 3.9-4.9 g/dL Low 05-26-2019 [facility] (02777) Comment: Performed By: #### CMP, CBCD IF ####[address] [place], [place] [phone]- [phone] ALP [Catalytic activity/Vol] 223 38-113 U/L High 0 05-26-2019 [facility] (23334) Comment: Performed By: #### CMP, CBCD IF ####[address] [place], [place] [phone]- [phone] ALT [Catalytic activity/Vol] 50 10-54 U/L Normal 0 05-26-2019 [facility] (51056) Comment: Performed By: #### CMP, CBCD IF ####[place] [address] [place], [place] [phone]- [phone] Anion gap [Moles/Vol] 14 9-18 mmol/L Normal 05-26-19 [facility] (75141) Comment: Performed By: #### CMP, CBCD IF ####[place] [address] [place], [place] [phone]- [phone] AST [Catalytic activity/Vol] 51 14-40 U/L High 0 05-26-2019 [facility] (81931) Comment: Performed By: #### CMP, CBCD IF ####[place] [address], [place] [phone]- [phone] Bilirubin [Mass/Vol] 0.2 0.2-1.3 mg/dL Normal 0 [facility] (46935) Comment: Performed By: #### CMP, CBCD IF ####[facility], [place] 91421861- [phone] Calcium [Mass/Vol] 9.0 8.5-10.2 mg/dL Normal 05-26-2019 [facility] (40506) Comment: Performed By: #### CMP, CBCD IF ####[place] [address], [place] [phone]- [phone] Chloride [Moles/Vol] 107 97-105 mmol/L High 0 [facility] (99892) Comment: Performed By: #### CMP, CBCD IF ####[place] [address], [place] 90809560- [phone] CO2 [Moles/Vol] 21 22-30 mmol/L Low 05-26-2019 [facility] (54482) Comment: Performed By: #### CMP, CBCD IF ####[place] [address], [place] [phone] Creatinine [Mass/Vol] 1.63 0.73-1.22 mg/dL High 05-26-[address] [facility] (06751) Comment: Performed By: #### CMP, CBCD IF ####[facility], [place] 28804544- [phone] eGFR- Amer. 51 Normal 05-26-2019 [facility] (99583) Comment: Performed By: #### CMP, CBCD IF ####[facility], [place] [phone]- [phone] GFR/1.73 sq M predicted among 42 . Normal 05-26-2019 [facility] non-blacks MDRD (S/P/Bld) [Vol (22696) rate/Area] Comment: Result Comment: eGFR (Estima pratik GFR) Units of measure: mL/min/1.73 meters squaredeGFR is derived from the reexpressed MDRD Study equation using the following parameters: serum creatinine, age, gender and race. The creatinine assay has been calibrated to be traceable to IDMS.An eGFR <60 mL/min/1.73m2 for >3 months is consistent with chronic kidney disease. Refer to KDOQI guidelines for clinical inte rpretation.In patients with unstable renal function, e.g. those with ac cowlitz kidney injury, the eGFR may not accurately reflect actual GFR. Performed By: #### CMP, CBCD IF ####[facility] [address] [place], [place] [phone]- [phone] Glucose [Mass/Vol] 122 74-99 mg/dL High 05-26-2019 [facility] (00315) Comment: Result Comment: The [place] Diabetes [employer] (ADA) provides guidance for cutoff values for fastin g glucose and random glucose. The ADA defines fasting as no caloric intake for at least 8 hours. Fasting plasma glucose results between 100 to 125 m g/dL indicate increased risk for diabetes (prediabetes).Fasting plasma glucose results greater than or equal to 126 mg/dL meet the criteria for diagnosis of diabetes. In the absence of unequivocal hyperglycemia, r esults should be confirmed by repeat testing. In a patient with classic sympt oms of hyperglycemia or hyperglycemic crisis, random plasma glucose result s greater than or equal to 200 mg/dL meet the criteria for diagnosis of di abetes.Reference: Standards of Medical Care in Diabetes 2016, [place] Diab etes Association. Diabetes Care. 2016.39(Suppl 1). Performed By: #### CMP, CBCD IF ####[facility] [address], [place] [phone]- [phone] Potassium [Moles/Vol] 4.4 3.7-5.1 mmol/L Normal 05-26-19 [facility] (78718) Comment: Performed By: #### CMP, CBCD IF ####[facility] [address] [place], [place] [phone]- [phone] Protein [Mass/Vol] 5.8 6.3-8.0 g/dL Low 05-26-2019 [facility] (84027) Comment: Performed By: #### CMP, CBCD IF ####[facility] [address] [place] [phone]- [phone] Sodium [Moles/Vol] 142 136-144 mmol/L Normal 05-26-2019 [facility] (97114) Comment: Performed By: #### CMP, CBCD IF ####[place] [address] [place], [place] [phone]- [phone] Urea nitrogen [Mass/Vol] 13 9-24 mg/dL Normal 05-25 [facility] (79010) Comment: Performed By: #### CMP, CBCD IF ####[place] [address] [place] [phone]- [phone] cbc and differential on 2019-05-26 Abs Baso 0.03 <0.11 k/uL Normal 05-26-2019 [facility] (00646) Comment: Performed By: #### CMP, CBCD IF ####[place] [address] [place] [phone]- [phone] Abs Zapata 0.35 <0.87 k/uL Normal 05-26-2019 [facility] (20714) Comment: Performed By: #### CMP, CBCD IF ####[place] [address] [place] [phone]- [phone] Abs Neut 3.56 1.45-7.50 k/uL Normal 05-26-2019 [facility] (63538) Comment: Performed By: #### CMP, CBCD IF ####[place] [address] [place] [phone]- [phone] Absolute nRBC <0.01 <0.01 Normal 05-26-2019 [facility] (01573) Comment: Performed By: #### CMP, CBCD IF ####[place] [address] [place] [phone]- [phone] Basophils/100 WBC (Bld) 0.6 % Normal 2019 [facility] (73652) Comment: Performed By: #### CMP, CBCD IF ####[place] [address], [place] [phone]- [phone] DTYPE Auto Diff Normal 05-26-2019 [facility] (63233) Comment: Performed By: #### CMP, CBCD IF ####[place] [address] [place] [phone]- [phone] Eosinophils (Bld) [#/Vol] 0.16 <0.46 k/uL Normal [facility] (86014) Comment: Performed By: #### CMP, CBCD IF ####[place] [address] [place] [phone]- [phone] Eosinophils/100 WBC (Bld) 3.3 % Normal [facility] (19467) Comment: Performed By: #### CMP, CBCD IF ####[place] [phone]- [phone] Erythrocyte distribution 17.5 11.5-15.0 % High 05-25 [facility] width (RBC) [Ratio] [place] (17113) Comment: Performed By: #### CMP, CBCD IF ####[address], [place] [phone]- [phone] Hematocrit (Bld) [Volume 31.8 39.0-51.0 % Low 05-25 [facility] fraction] (52661) Comment: Performed By: #### CMP, CBCD IF ####[place] [address], [place] [phone]- [phone] Hemoglobin (Bld) 10.2 13.0-17.0 g/dL Low 05-26-2019 [facility] [Mass/Vol] [place] (65745) Comment: Performed By: #### CMP, CBCD IF ####[place] [address], [place] [phone]- [phone] Lymphocytes (Bld) [#/Vol] 0.68 1.00-4.00 k/uL Low [facility] (10008) Comment: Performed By: #### CMP, CBCD IF ####[place] [address], [place] [phone]- [phone] Lymphocytes/100 WBC (Bld) 14.2 % Normal [facility] (10136) Comment: Performed By: #### CMP, CBCD IF ####[place] [address] [place] [phone]- [phone] MCH (RBC) [Entitic mass] 32.0 26.0-34.0 pG Normal 05-25 [facility] (19424) Comment: Performed By: #### CMP, CBCD IF ####[place] [address] [place] [phone]- [phone] MCHC (RBC) [Mass/Vol] 32.1 30.5-36.0 g/dL Normal 05-26-19 [facility] (67595) Comment: Performed By: #### CMP, CBCD IF ####[place] [address] [place] [phone]- [phone] MCV (RBC) [Entitic vol] 99.7 80.0-100.0 fL Normal 05-25 [facility] (33533) Comment: Performed By: #### CMP, CBCD IF ####[place] [address], [place] [phone]- [phone] Monocytes/100 WBC (Bld) 7.3 % Normal 2019 [facility] (13712) Comment: Performed By: #### CMP, CBCD IF ####[place] [address], [place] [phone]- [phone] Neutrophils/100 WBC (Bld) 74.6 % Normal [facility] (12690) Comment: Performed By: #### CMP, CBCD IF ####[place] [address], [place] [phone]- [phone] NRBCs 0.0 0 /100 WBC Normal 05-26-2019 [facility] (66235) Comment: Performed By: #### CMP, CBCD IF ####[place] [address], [place] [phone]- [phone] Platelet mean volume 12.7 9.0-12.7 fL Normal 0 [facility] (Bld) [Entitic vol] [place] (98551) Comment: Performed By: #### CMP, CBCD IF ####[place] [address] [place], [place] [id number]- [phone] Platelets (Bld) [#/Vol] 125 150-400 k/uL Low 2019 [facility] (88260) Comment: Performed By: #### CMP, CBCD IF ####[address] [place], [place] [id number]- [phone] RBC (Bld) [#/Vol] 3.19 4.20-6.00 m/uL Low 05-26-2019 [facility] (99695) Comment: Performed By: #### CMP, CBCD IF ####[place] [address], [place] 39857949- [phone] WBC (Bld) [#/Vol] 4.78 3.70-11.00 k/uL Normal 05-26-2019 [facility] (77622) Comment: Performed By: #### CMP, CBCD IF ####[place] [address], [place] [phone]- [phone] progress on 2019-05 PROGRESS Normal 05-25-2019 [facility] (25126) PROGRESS Normal 05-25-2019 [facility] (34271) obsolete on 2019-05 OBSOLETE Normal 05-24-2019 [facility] (38977) obsolete on 2019-05 OBSOLETE Normal 05-21-2019 [facility] (58028) progress on 2019-05 PROGRESS Normal 05-19-2019 [facility] (40470) hosp on 2019-05-19 HOSP Normal 05-19-2019 [facility] (92705) comp metabolic panel on 2019-05-19 Albumin [Mass/Vol] 3.8 3.9-4.9 g/dL Low 05-19-2019 [facility] (92471) Comment: Performed By: #### CMP, CBCD IF ####[facility], [place] [phone]- [phone] ALP [Catalytic activity/Vol] 214 38-113 U/L High 0 05-19-2019 [facility] (72706) Comment: Performed By: #### CMP, CBCD IF ####[place] [address], [place] [phone]- [phone] ALT [Catalytic activity/Vol] 40 10-54 U/L Normal 0 05-19-2019 [facility] (00695) Comment: Performed By: #### CMP, CBCD IF ####[place] [address], [place] [phone]- [phone] Anion gap [Moles/Vol] 12 9-18 mmol/L Normal 05-19-19 [facility] (00831) Comment: Performed By: #### CMP, CBCD IF ####[place] [address], [place] [id number]- [phone] AST [Catalytic activity/Vol] 35 14-40 U/L Normal 0 05-19-2019 [facility] (02456) Comment: Performed By: #### CMP, CBCD IF ####[facility], [place] [phone]- [phone] Bilirubin [Mass/Vol] 0.4 0.2-1.3 mg/dL Normal 0 [facility] (81417) Comment: Performed By: #### CMP, CBCD IF ####[place] [address], [place] [phone]- [phone] Calcium [Mass/Vol] 8.9 8.5-10.2 mg/dL Normal 05-19-2019 [facility] (29832) Comment: Performed By: #### CMP, CBCD IF ####[facility] [address], [place] [phone]- [phone] Chloride [Moles/Vol] 104 97-105 mmol/L Normal 0 [facility] (97389) Comment: Performed By: #### CMP, CBCD IF ####[facility] [address], [place] [phone]- [phone] CO2 [Moles/Vol] 22 22-30 mmol/L Normal 05-19-2019 [facility] (92465) Comment: Performed By: #### CMP, CBCD IF ####[facility] [address], [place] [phone]- [phone] Creatinine [Mass/Vol] 2.02 0.73-1.22 mg/dL High 05-19-[address] [facility] (35939) Comment: Performed By: #### CMP, CBCD IF ####[facility] [address], [place] [phone]- [phone] eGFR- Amer. 40 Normal 05-19-2019 [facility] (43040) Comment: Performed By: #### CMP, CBCD IF ####[facility], [place] [phone]- [phone] GFR/1.73 sq M predicted among 33 . Normal 05-19-2019 [facility] non-blacks MDRD (S/P/Bld) [Vol (08587) rate/Area] Comment: Result Comment: eGFR (Estima pratik GFR) Units of measure: mL/min/1.73 meters squaredeGFR is derived from the reexpressed MDRD Study equation using the following parameters: serum creatinine, age, gender and race. The creatinine assay has been calibrated to be traceable to IDMS.An eGFR <60 mL/min/1.73m2 for >3 months is consistent with chronic kidney disease. Refer to KDOQI guidelines for clinical inte rpretation.In patients with unstable renal function, e.g. those with ac cowlitz kidney injury, the eGFR may not accurately reflect actual GFR. Performed By: #### CMP, CBCD IF ####[facility] [place], [place] [phone]- [phone] Glucose [Mass/Vol] 124 74-99 mg/dL High 05-19-2019 [facility] (41664) Comment: Result Comment: The [place] [employer] (ADA) provides guidance for cutoff values for fastin g glucose and random glucose. The ADA defines fasting as no caloric intake for at least 8 hours. Fasting plasma glucose results between 100 to 125 m g/dL indicate increased risk for diabetes (prediabetes).Fasting plasma glucose results greater than or equal to 126 mg/dL meet the criteria for diagnosis of diabetes. In the absence of unequivocal hyperglycemia, r esults should be confirmed by repeat testing. In a patient with classic sympt oms of hyperglycemia or hyperglycemic crisis, random plasma glucose result s greater than or equal to 200 mg/dL meet the criteria for diagnosis of di abetes.Reference: Standards of Medical Care in Diabetes 2016, [place] Diab etes Association. Diabetes Care. 2016.39(Suppl 1). Performed By: #### CMP, CBCD IF ####[facility] [place], [place] [phone] Potassium [Moles/Vol] 4.5 3.7-5.1 mmol/L Normal 05-19-19 [facility] (49120) Comment: Performed By: #### CMP, CBCD IF ####[facility] [place], [place] [phone] Protein [Mass/Vol] 5.7 6.3-8.0 g/dL Low 05-19-2019 [facility] (76371) Comment: Performed By: #### CMP, CBCD IF ####[facility] [place], [place] [phone] Sodium [Moles/Vol] 138 136-144 mmol/L Normal 05-19-2019 [facility] (16118) Comment: Performed By: #### CMP, CBCD IF ####[place] [address], [place] [phone]- [phone] Urea nitrogen [Mass/Vol] 13 9-24 mg/dL Normal 05-18 [facility] (26324) Comment: Performed By: #### CMP, CBCD IF ####[place] [address] [place] [phone] cbc and differential on 2019-05-19 Abs Baso <0.03 <0.11 Normal 05-19-2019 [facility] (82095) Comment: Performed By: #### CMP, CBCD IF ####[place] [address] [place] [phone] Abs Zapata 0.46 <0.87 k/uL Normal 05-19-2019 [facility] (93736) Comment: Performed By: #### CMP, CBCD IF ####[place] [address] [place] [phone] Abs Neut 1.90 1.45-7.50 k/uL Normal 05-19-2019 [facility] (39475) Comment: Performed By: #### CMP, CBCD IF ####[place] [address] [place], [place] [phone] Absolute nRBC <0.01 <0.01 Normal 05-19-2019 [facility] (59325) Comment: Performed By: #### CMP, CBCD IF ####[place] [address], [place] [phone] Basophils/100 WBC (Bld) 0.7 % Normal 2019 [facility] (28896) Comment: Performed By: #### CMP, CBCD IF ####[place] [address] [place] [phone] DTYPE Auto Diff Normal 05-19-2019 [facility] (31862) Comment: Performed By: #### CMP, CBCD IF ####[place] [address], [place] [phone]- [phone] Eosinophils (Bld) [#/Vol] 0.07 <0.46 k/uL Normal 04-0 -2019 [facility] (86286) Comment: Performed By: #### CMP, CBCD IF ####[place] [address], [place] [phone]- [phone] Eosinophils/100 WBC (Bld) 2.4 % Normal 04-0 -2019 [facility] (45887) Comment: Performed By: #### CMP, CBCD IF ####[place] [address], [place] [phone]- [phone] Erythrocyte distribution 17.9 11.5-15.0 % High 05-18 [facility] width (RBC) [Ratio] [place] (13211) Comment: Performed By: #### CMP, CBCD IF ####[place] [address], [place] [phone] Hematocrit (Bld) [Volume 30.0 39.0-51.0 % Low 05-18 [facility] fraction] (02380) Comment: Performed By: #### CMP, CBCD IF ####[place] [address], [place] [phone]- [phone] Hemoglobin (Bld) 9.7 13.0-17.0 g/dL Low 05-19-2019 [facility] [Mass/Vol] [place] (22356) Comment: Performed By: #### CMP, CBCD IF ####[place] [address], [place] [phone]- [phone] Lymphocytes (Bld) [#/Vol] 0.50 1.00-4.00 k/uL Low 04-0 [facility] (10141) Comment: Performed By: #### CMP, CBCD IF ####[place] [address], [place] [phone]- [phone] Lymphocytes/100 WBC (Bld) 16.8 % Normal - [facility] (78500) Comment: Performed By: #### CMP, CBCD IF ####[place] [address], [place] [phone] MCH (RBC) [Entitic mass] 31.8 26.0-34.0 pG Normal 05-18 [facility] (59979) Comment: Performed By: #### CMP, CBCD IF ####[place] [address], [place] [phone] MCHC (RBC) [Mass/Vol] 32.3 30.5-36.0 g/dL Normal 05-19-19 [facility] (18644) Comment: Performed By: #### CMP, CBCD IF ####[place] [address], [place] [phone] MCV (RBC) [Entitic vol] 98.4 80.0-100.0 fL Normal 05-18 [facility] (78043) Comment: Performed By: #### CMP, CBCD IF ####[place] [address], [place] [phone] Monocytes/100 WBC (Bld) 15.5 % Normal 2019 [facility] (19063) Comment: Performed By: #### CMP, CBCD IF ####[place] [address], [place] [phone]- [phone] Neutrophils/100 WBC (Bld) 64.6 % Normal [facility] (06831) Comment: Performed By: #### CMP, CBCD IF ####[place] [address], [place] [phone]- [phone] NRBCs 0.0 0 /100 WBC Normal 05-19-2019 [facility] (79957) Comment: Performed By: #### CMP, CBCD IF ####[place] [address], [place] [phone] Platelet mean volume 12.4 9.0-12.7 fL Normal 0 [facility] (Bld) [Entitic vol] [place] (90717) Comment: Performed By: #### CMP, CBCD IF ####[facility] [place], [place] [phone]- [phone] Platelets (Bld) [#/Vol] 118 150-400 k/uL Low 2019 [facility] (46670) Comment: Performed By: #### CMP, CBCD IF ####[facility], [place] [phone] RBC (Bld) [#/Vol] 3.05 4.20-6.00 m/uL Low 05-19-2019 [facility] (49358) Comment: Performed By: #### CMP, CBCD IF ####[facility] [address], [place] [phone] WBC (Bld) [#/Vol] 2.97 3.70-11.00 k/uL Low 05-19-2019 [facility] (26800) Comment: Performed By: #### CMP, CBCD IF ####[facility] [place], [place] [phone]- [phone] progress on 2019-04 PROGRESS Normal 05-18-2019 [facility] (87763) obsolete on 2019-04 OBSOLETE Normal 05-14-2019 [facility] (79003) cnpn on 2019-05-14 CNPN Normal 05-14-2019 [facility] (87771) phos on 2019-05-12 Phosphate [Mass/Vol] 2.8 2.5-4.9 MG/DL Normal 0 [facility] (32135) Comment: Performed By: #### L500.0180 5, L500.43308, L500.77673, L500.19780 #### [facility] [address] [address] magnesium on 25 Magnesium [Mass/Vol] 1.6 1.6-2.6 MG/DL Normal 0 [facility] () Comment: Performed By: #### L500.0180 5, L500.12357, L500.18190, L500.57105 #### [address] [address] gfr est on IF AMER 50 ML/MIN Normal 05-12-2019 [facility] () Comment: Performed By: #### L500.0180 5, L500.23758, L500.77254, L500.74170 #### [address] [address] IF non-AFR AMER 41 ML/MIN Normal 05-12-2019 [facility] (16754) Comment: Performed By: #### L500.0180 5, L500.36266, L500.44156, L500.76211 #### [address] [address] cbc w/diff on 05-11 BASO ABS 0.10 0-0.2 K/CU MM Normal 05-12-2019 [facility] (06575) Comment: Performed By: #### L200.0005 0 #### [address] [address] Basophils/100 WBC (Bld) 1.1 0-2 % Normal 2019 [facility] (50081) Comment: Performed By: #### L200.0005 0 #### [address] [address] EOS ABS 0.10 0-0.5 K/CU MM Normal 05-12-2019 [facility] [place] (02259) Comment: Performed By: #### L200.0005 0 #### [address] [address] Eosinophils/100 WBC (Bld) 3.0 0-5 % Normal 04-18 [facility] (11539) Comment: Performed By: #### L200.0005 0 #### [place] [address] Erythrocyte distribution width 19.3 11-14.5 % High 05-12-2019 [facility] (RBC) [Ratio] [place] (58357) Comment: Performed By: #### L200.0005 0 #### [place] [phone] Hematocrit (Bld) [Volume 27.9 41.0-53.0 % Low 05-11 [facility] fraction] [place] (00 000) Comment: Performed By: #### L200.0005 0 #### [address] [address] Hemoglobin (Bld) [Mass/Vol] 9.0 13.5-17.5 G/DL Low [facility] (00 000) Comment: Performed By: #### L200.0005 0 #### [place] [address] IMMATR GRAN ABS 0.00 Less than 2 K/CU MM Normal 05-12-2019 [facility] (00 000) Comment: Performed By: #### L200.0005 0 #### [address] [address] IMMATURE GRAN % 0.4 Less than 2 % Normal 05-12-2019 [facility] (71552) Comment: Performed By: #### L200.0005 0 #### [facility] [address] [place] [phone] Lymphocytes (Bld) [#/Vol] 0.60 0.9-4.4 K/CU MM Low 04-18 [facility] (00 000) Comment: Performed By: #### L200.0005 0 #### [place] [address] Lymphocytes/100 WBC (Bld) 11.8 20-40 % Low 04-18 [facility] (81456) Comment: Performed By: #### L200.0005 0 #### [place] [address] MCHC (RBC) [Mass/Vol] 32.3 32.0-36.0 GM/DL Normal 05-12-19 [facility] (00 000) Comment: Performed By: #### L200.0005 0 #### [place] [address] MCV (RBC) [Entitic vol] 99.3 80.0-99.0 fl High 2019 [facility] (16875) Comment: Performed By: #### L200.0005 0 #### [place] [address] [place] [address] MONO ABS 0.30 0.1-1.1 K/CU MM Normal 05-12-2019 [facility] (99317) Comment: Performed By: #### L200.0005 0 #### [place] [address]33708 Monocytes/100 WBC (Bld) 7.3 2-10 % Normal 2019 [facility] (42563) Comment: Performed By: #### L200.0005 0 #### [address] [address] NEUTROPHIL ABS 3.60 2.0-8.3 K/CU MM Normal 05-12-2019 [facility] (63228) Comment: Performed By: #### L200.0005 0 #### [address] [address] Neutrophils/100 WBC (Bld) 76.4 45-75 % High 04-18 [facility] (90802) Comment: Performed By: #### L200.0005 0 #### [place] [address] Nucleated RBC/100 WBC 0.0 Less than 1 % Normal 2019 [facility] (Bld) [Ratio] [place] (38935) Comment: Performed By: #### L200.0005 0 #### [place] [phone] Platelet mean volume (Bld) 12.0 9.4-12.4 fL Normal [facility] [Entitic vol] [place] (47048) Comment: Performed By: #### L200.0005 0 #### [place] [address] Platelets (Bld) [#/Vol] 184 150-450 K/CU MM Normal 2019 [facility] (00 000) Comment: Performed By: #### L200.0005 0 #### [address] [address] RBC (Bld) [#/Vol] 2.81 4.50-6.00 M/CU MM Low 05-12-2019 [facility] (79063) Comment: Performed By: #### L200.0005 0 #### [place] [address] WBC (Bld) [#/Vol] 4.7 4.5-11.0 K/CUMM Normal 05-12-2019 [facility] (44402) Comment: Performed By: #### L200.0005 0 #### [facility] [address] [place] [address] bmp on 2019-05-12 Anion gap [Moles/Vol] 7 5-16 MMOL/L Normal 05-12-19 20 [facility] (83098) Comment: Performed By: #### L500.0180 5, L500.07245, L500.12345, L500.30577 #### [facility] [address] [place] [address] Calcium [Mass/Vol] 8.2 8.5-10.1 MG/DL Low 05-12-2019 [facility] (18657) Comment: Performed By: #### L500.0180 5, L500.11352, L500.35348, L500.07114 #### [facility] [address] [place] [address] Chloride [Moles/Vol] 109 98-107 MMOL/L High 0 [facility] (69392) Comment: Performed By: #### L500.0180 5, L500.44276, L500.46703, L500.76767 #### [facility] [address] [place] [address] CO2 [Moles/Vol] 22 21-32 MMOL/L Normal 05-12-2019 [facility] (52533) Comment: Performed By: #### L500.0180 5, L500.07754, L500.83963, L500.57993 #### [facility] [address] [place] [address] Creatinine [Mass/Vol] 1.660 0.670-1.170 MG/DL High 2019 [facility] (00 000) Comment: Result Comment: Patients rec eiving either N-Acetylcysteine (NAC) or Metamizole prior to venipunc ture, may have falsely depressed results. Performed By: #### L500.0180 5, L500.18068, L500.91136, L500.09803 #### [facility] [address] [place] [address] Glucose [Mass/Vol] 138 70-100 MG/DL High 05-12-2019 [facility] (74970) Comment: Result Comment: 70-100- Norm al Fasting; 100-125 Impaired Fasting; greater than 126 on more than one re sult- Diabetes. ADA guidelines. Results may be falsely eleva pratik after the administration of Sulfapyridine. Results may be falsely depre ssed after the administration of Sulfasalazine. Performed By: #### L500.0180 5, L500.78028, L500.57700, L500.76524 #### [facility] [address] [place] [address] Potassium [Moles/Vol] 4.7 3.5-5.1 MMOL/L Normal 05-12-19 [facility] (00 000) Comment: Performed By: #### L500.0180 5, L500.13601, L500.93677, L500.10006 #### [facility] [address] [place] [address] Sodium [Moles/Vol] 139 136-145 MMOL/L Normal 05-12-2019 [facility] (07639) Comment: Performed By: #### L500.0180 5, L500.04541, L500.59270, L500.76287 #### [facility] [address] [place] [address] Urea nitrogen [Mass/Vol] 13 7-26 MG/DL Normal 05-11 [facility] [place] (27807) Comment: Performed By: #### L500.0180 5, L500.51191, L500.05489, L500.15105 #### [facility] [place] [address] [place] [address] Urea nitrogen/Creatinine [Mass 8 15-24 mg/mg Low 05-12-2019 [facility] ratio] [place] (00 000) Comment: Performed By: #### L500.0180 5, L500.88487, L500.71157, L500.78123 #### [facility] [place] [address] [place] [address] cnpn on 2019-05-10 CNPN Normal 05-10-2019 [facility] (08794) progress on 2019-04 PROGRESS HNO ID: [id number] Normal 05-07-2019 [facility] Author: Prachi Beltran Pss ([id number]) Service: ? Author Type: ? Type: Progress Notes Filed: 05/07/2019 12:20 PM Note Text: Virtual visit is scheduled correctly. PROGRESS Normal 05-07-2019 [facility] (07033) PROGRESS Normal 05-07-2019 [facility] (76013) cnptoutreach on CNPTOUTREACH Normal 05-07-2019 [facility] (65465) cnpn on 2019-05-07 CNPN Normal 05-07-2019 [facility] (70149) pt ed on 2019-05-06 PT ED Normal 05-06-2019 [facility] (05328) protime on PT Coag (PPP) [Time] 1.0 0.9-1.[address] [facility] (42934) Comment: Result Comment: Vitamin K An tagonist (VKA) Therapeutic Range: INR 2 to 3 (Target INR of 2.5)Note: For patients treated with VKA drugs, such as warfarin, the [place] [employer] [employer] 2012 Guideline recommends a therapeutic INR range of 2 to 3 (target INR of 2.5). This recommendation includes high-risk patients with antiphospholipid syndrome with previous arterial or venous thromboem bolism, current-generation mechanical or bioprosthetic aortic heart v alve replacement.Note: Patients with mechanical aortic valve replacement and additional risk factors for thromboembolic events (atrial fibrillation, previous thromboembolism, LV dysfunction, hypercoagulable conditions) or an older generation mechanical AVR (i.e., ball in-Cage) or any mechani veronika MVR should have a INR therapeutic range of 2.5 to 3.5 (target INR of 3) .Sawyer GH, et al. Chest 2012, 141:7S-47SNishimesther RA, et a l. [facility] 2017, 70: 252-289 Performed By: #### PTT, PHOS , MG1, PT, CBCDIF, BMP ####[facility] [address] [place], [place] [phone] PT Coag (PPP) [Time] 10.8 9.7-13.[address] [facility] (51872) Comment: Performed By: #### PTT, PHOS , MG1, PT, CBCDIF, BMP ####[facility] [address] [place], [place] [phone] progress on 2019-04 PROGRESS Normal 05-06-2019 [facility] (64994) plan of care on PLAN OF CARE Normal 05-06-2019 [facility] (23571) phosphorus on 05-05 Phosphate [Mass/Vol] 4.5 2.7-4.8 mg/dL Normal 0 [facility] (70036) Comment: Performed By: #### PTT, PHOS , MG1, PT, CBCDIF, BMP ####[facility] [address] [place], [place] [phone] nursing prog on NURSING PROG Normal 05-06-2019 [facility] (85593) magnesium on 05-05 Magnesium [Mass/Vol] 2.2 1.7-2.3 mg/dL Normal [facility] (86314) Comment: Performed By: #### PTT, PHOS , MG1, PT, CBCDIF, BMP ####[facility] [place], [place] [phone] consult prog on CONSULT PROG Normal 05-06-2019 [facility] (19933) CONSULT PROG Normal 05-06-2019 [facility] (41344) cnpn on 2019-05-06 CNPN Normal 05-06-2019 [facility] (38895) cnds on 2019-05-06 CNDS Normal 05-06-2019 [facility] (01283) cbc and differential on 2019-05-06 Abs Baso 0.00 <0.11 k/uL Normal 05-06-2019 [facility] (16531) Comment: Performed By: #### PTT, PHOS , MG1, PT, CBCDIF, BMP ####[place] [address] [place] [phone] Abs Zapata 0.17 <0.87 k/uL Normal 05-06-2019 [facility] (86520) Comment: Performed By: #### PTT, PHOS , MG1, PT, CBCDIF, BMP ####[facility] [place], [place] [phone] Abs Neut 2.91 1.45-7.50 k/uL Normal 05-06-2019 [facility] (97695) Comment: Performed By: #### PTT, PHOS , MG1, PT, CBCDIF, BMP ####[facility] [place], [place] [phone] Anisocytosis Ql (Bld) Present Normal 05-06-19 [facility] (34178) Comment: Performed By: #### PTT, PHOS , MG1, PT, CBCDIF, BMP ####[facility] [place], [place] [phone] Basophils/100 WBC (Bld) 0.0 % Normal 2019 [facility] (63623) Comment: Performed By: #### PTT, PHOS , MG1, PT, CBCDIF, BMP ####[facility], [place] [phone] DTYPE Manual Diff Normal 05-06-2019 [facility] (27906) Comment: Performed By: #### PTT, PHOS , MG1, PT, CBCDIF, BMP ####[place] [address] [place] [phone] Eosinophils (Bld) [#/Vol] 0.21 <0.46 k/uL Normal 04-17 [facility] (11355) Comment: Performed By: #### PTT, PHOS , MG1, PT, CBCDIF, BMP ####[place] [address] [place] [phone] Eosinophils/100 WBC (Bld) 5.4 % Normal 04-17 [facility] (42386) Comment: Performed By: #### PTT, PHOS , MG1, PT, CBCDIF, BMP ####[place] [address] [place] [phone] Erythrocyte distribution 18.6 11.5-15.0 % High 05-05 [facility] width (RBC) [Ratio] [place] (57482) Comment: Performed By: #### PTT, PHOS , MG1, PT, CBCDIF, BMP ####[place] [address] [place] [phone] Hematocrit (Bld) [Volume 24.2 39.0-51.0 % Low 05-05 [facility] fraction] (58276) Comment: Performed By: #### PTT, PHOS , MG1, PT, CBCDIF, BMP ####[facility] [place] [phone] Hemoglobin (Bld) 7.9 13.0-17.0 g/dL Low 05-06-2019 [facility] [Mass/Vol] [place] (59417) Comment: Performed By: #### PTT, PHOS , MG1, PT, CBCDIF, BMP ####[facility] [address] [place], [place] [phone] Lymphocytes (Bld) [#/Vol] 0.45 1.00-4.00 k/uL Low 04-17 [facility] (12355) Comment: Performed By: #### PTT, PHOS , MG1, PT, CBCDIF, BMP ####[place] [address] [place], [place] [phone] Lymphocytes/100 WBC (Bld) 11.6 % Normal 04-17 [facility] (57171) Comment: Performed By: #### PTT, PHOS , MG1, PT, CBCDIF, BMP ####[place] [address] [place], [place] [phone] MCH (RBC) [Entitic mass] 32.1 26.0-34.0 pG Normal 05-05 [facility] (95604) Comment: Performed By: #### PTT, PHOS , MG1, PT, CBCDIF, BMP ####[place] [address] [place], [place] [phone] MCHC (RBC) [Mass/Vol] 32.6 30.5-36.0 g/dL Normal 05-06-19 [facility] (32342) Comment: Performed By: #### PTT, PHOS , MG1, PT, CBCDIF, BMP ####[place] [address] [place], [place] [phone] MCV (RBC) [Entitic vol] 98.4 80.0-100.0 fL Normal 05-05 [facility] (89531) Comment: Performed By: #### PTT, PHOS , MG1, PT, CBCDIF, BMP ####[facility] [address] [place], [place] [phone] Fife% 0.9 % Normal 05-06-2019 [facility] (61286) Comment: Performed By: #### PTT, PHOS , MG1, PT, CBCDIF, BMP ####[facility] [address] [place], [place] [phone] Monocytes/100 WBC (Bld) 4.5 % Normal 2019 [facility] (06107) Comment: Performed By: #### PTT, PHOS , MG1, PT, CBCDIF, BMP ####[facility] [place], [place] [phone] Myelo% 1.8 % Normal 05-06-2019 [facility] (99287) Comment: Performed By: #### PTT, PHOS , MG1, PT, CBCDIF, BMP ####[facility] [place], [place] [phone] Neutrophils/100 WBC (Bld) 74.9 % Normal 04-17 [facility] (11224) Comment: Performed By: #### PTT, PHOS , MG1, PT, CBCDIF, BMP ####[facility] [place], [place] [phone] Ovalocytes Few Normal 05-06-2019 [facility] (74896) Comment: Performed By: #### PTT, PHOS , MG1, PT, CBCDIF, BMP ####[facility] [address] [place], [place] [phone] Platelet mean volume 11.7 9.0-12.7 fL Normal 0 [facility] (Bld) [Entitic vol] [place] (74542) Comment: Performed By: #### PTT, PHOS , MG1, PT, CBCDIF, BMP ####[facility] [address] [place], [place] [phone] Platelets (Bld) [#/Vol] 168 150-400 k/uL Normal 2019 [facility] (78869) Comment: Performed By: #### PTT, PHOS , MG1, PT, CBCDIF, BMP ####[facility] [address] [place], [place] [phone] Platelets (Bld) Platelet estimate Normal 2019 [facility] [#/Vol] adequate [place] (89895) Comment: Performed By: #### PTT, PHOS , MG1, PT, CBCDIF, BMP ####[facility] [place], [place] [phone] Polychromasia Slight Normal 05-06-2019 [facility] (11232) Comment: Performed By: #### PTT, PHOS , MG1, PT, CBCDIF, BMP ####[place] [address] [place], [place] [phone] Promyl% 0.9 % Normal 05-06-2019 [facility] (09332) Comment: Performed By: #### PTT, PHOS , MG1, PT, CBCDIF, BMP ####[facility] [facility], [place] [phone] RBC (Bld) [#/Vol] 2.46 4.20-6.00 m/uL Low 05-06-2019 [facility] (15512) Comment: Performed By: #### PTT, PHOS , MG1, PT, CBCDIF, BMP ####[facility] [place], [place] [phone] RBC Fragments Few Normal 05-06-2019 [facility] (82483) Comment: Performed By: #### PTT, PHOS , MG1, PT, CBCDIF, BMP ####[facility] [address] [place], [place] [phone] TSH Qn Present Normal 05-06-2019 [facility] (18155) Comment: Performed By: #### PTT, PHOS , MG1, PT, CBCDIF, BMP ####[facility] [place], [place] [phone] WBC (Bld) [#/Vol] 3.88 3.70-11.00 k/uL Normal 05-06-2019 [facility] ([id number]) Comment: Performed By: #### PTT, PHOS , MG1, PT, CBCDIF, BMP ####[facility] [place], [place] [phone] case managem on CASE MANAGEM Normal 05-06-2019 [facility] ([id number]) CASE MANAGEM Normal 05-06-2019 [facility] ([id number]) basic metabolic panl on 2019-05-06 Anion gap [Moles/Vol] 12 9-18 mmol/L Normal 05-06-[address] [facility] ([id number]) Comment: Performed By: #### PTT, PHOS , MG1, PT, CBCDIF, BMP ####[place] [address] [place], [place] [phone] Calcium [Mass/Vol] 8.8 8.5-10.2 mg/dL Normal 05-06-2019 [facility] ([id number]) Comment: Performed By: #### PTT, PHOS , MG1, PT, CBCDIF, BMP ####[facility] [place], [place] [phone] Chloride [Moles/Vol] 98 97-105 mmol/L Normal 0 [facility] (71195) Comment: Performed By: #### PTT, PHOS , MG1, PT, CBCDIF, BMP ####[facility] [place], [place] [phone] CO2 [Moles/Vol] 24 22-30 mmol/L Normal 05-06-2019 [facility] (71788) Comment: Performed By: #### PTT, PHOS , MG1, PT, CBCDIF, BMP ####[facility] [address] [place], [place] [phone] Creatinine [Mass/Vol] 1.73 0.73-1.22 mg/dL High 05-06-[address] [facility] (53258) Comment: Performed By: #### PTT, PHOS , MG1, PT, CBCDIF, BMP ####[facility] [address] [place], [place] [phone] eGFR- Amer. 47 Normal 05-06-2019 [facility] (66833) Comment: Performed By: #### PTT, PHOS , MG1, PT, CBCDIF, BMP ####[facility] [address] [place], [place] [phone] GFR/1.73 sq M predicted among 39 . Normal 05-06-2019 [facility] non-blacks MDRD (S/P/Bld) [Vol (66854) rate/Area] Comment: Result Comment: eGFR (Estima pratik GFR) Units of measure: mL/min/1.73 meters squaredeGFR is derived from the reexpressed MDRD Study equation using the following parameters: serum creatinine, age, gender and race. The creatinine assay has been calibrated to be traceable to IDMS.An eGFR <60 mL/min/1.73m2 for >3 months is consistent with chronic kidney disease. Refer to KDOQI guidelines for clinical inte rpretation.In patients with unstable renal function, e.g. those with ac cowlitz kidney injury, the eGFR may not accurately reflect actual GFR. Performed By: #### PTT, PHOS , MG1, PT, CBCDIF, BMP ####[facility] [address] [place], [place] [phone] Glucose [Mass/Vol] 203 74-99 mg/dL High 05-06-2019 [facility] (55600) Comment: Result Comment: The [place] Diabetes Association (ADA) provides guidance for cutoff values for fastin g glucose and random glucose. The ADA defines fasting as no caloric intake for at least 8 hours. Fasting plasma glucose results between 100 to 125 m g/dL indicate increased risk for diabetes (prediabetes).Fasting plasma glucose results greater than or equal to 126 mg/dL meet the criteria for diagnosis of diabetes. In the absence of unequivocal hyperglycemia, r esults should be confirmed by repeat testing. In a patient with classic sympt oms of hyperglycemia or hyperglycemic crisis, random plasma glucose result s greater than or equal to 200 mg/dL meet the criteria for diagnosis of di abetes.Reference: Standards of Medical Care in Diabetes 2016, [place] Diab etes Association. Diabetes Care. 2016.39(Suppl 1). Performed By: #### PTT, PHOS , MG1, PT, CBCDIF, BMP ####[facility] [place], [place] [phone] Potassium [Moles/Vol] 4.0 3.7-5.1 mmol/L Normal 05-06-[address] [facility] (26161) Comment: Performed By: #### PTT, PHOS , MG1, PT, CBCDIF, BMP ####[facility] [address] [place], [place] [phone] Sodium [Moles/Vol] 134 136-144 mmol/L Low 05-06-2019 [facility] (79102) Comment: Performed By: #### PTT, PHOS , MG1, PT, CBCDIF, BMP ####[facility] [address] [place], [place] [phone] Urea nitrogen [Mass/Vol] 27 9-24 mg/dL High 05-05 [facility] (83425) Comment: Performed By: #### PTT, PHOS , MG1, PT, CBCDIF, BMP ####[facility] [place], [place] [phone] aptt on 2019-05-06 aPTT Coag (Bld) [Time] 25.6 23.0-32.[address] [facility] (81135) Comment: Result Comment: Unfractionat ed Heparin Therapeutic Ranges:Standard Heparin Nomogram: 53 to 78 seconds ( anti-Xa level of 0.3 to 0.7 U/ml)Low Dose/ACS Nomogram: 49 to 67 seconds ( anti-Xa level of 0.2 to 0.5 U/ml)Stroke Treatment Nomogram: 49 to 67 seconds (anti-Xa level of 0.2 to 0.5 U/ml)Note: The APTT therapeutic range h as been determined for the current lot of laboratory APTT reagent in u se throughout the [facility]. Performed By: #### PTT, PHOS , MG1, PT, CBCDIF, BMP ####[facility] [address] [place], [place] [phone] allied health on 06-05-18 [facility] Normal 05-06-2019 [facility] (69768) [facility] Normal 05-06-2019 [facility] ([id number]) [facility] Normal 05-06-2019 [facility] (05542) pt ed on 2019-05-05 PT ED Normal 05-05-2019 [facility] (11643) protime on PT Coag (PPP) [Time] 1.0 0.9-1.[address] [facility] (38006) Comment: Result Comment: Vitamin K An tagonist (VKA) Therapeutic Range: INR 2 to 3 (Target INR of 2.5)Note: For patients treated with VKA drugs, such as warfarin, the [place] [employer] [place] of Chest Physicians 2012 Guideline recommends a therapeutic INR range of 2 to 3 (target INR of 2.5). This recommendation includes high-risk patients with antiphospholipid syndrome with previous arterial or venous thromboem bolism, current-generation mechanical or bioprosthetic aortic heart v alve replacement.Note: Patients with mechanical aortic valve replacement and additional risk factors for thromboembolic events (atrial fibrillation, previous thromboembolism, LV dysfunction, hypercoagulable conditions) or an older generation mechanical AVR (i.e., ball in-Cage) or any mechani veronika MVR should have a INR therapeutic range of 2.5 to 3.5 (target INR of 3) .Sawyer GH, et al. Chest 2012, 141:7S-47SKathy RA, et a owen. [facility] 2017, 70: 252-289 Performed By: #### MG1, PTT, CBCDIF, BMP, PT, PHOS ####[facility] [place], [place] [phone] PT Coag (PPP) [Time] 10.6 9.7-13.[address] [facility] (38956) Comment: Performed By: #### MG1, PTT, CBCDIF, BMP, PT, PHOS ####[place] [address] [place], [place] [phone] progress on 2019-04 PROGRESS Normal 05-05-2019 [facility] (27242) phosphorus on 05-04 Phosphate [Mass/Vol] 4.0 2.7-4.8 mg/dL Normal 0 [facility] (19888) Comment: Performed By: #### MG1, PTT, CBCDIF, BMP, PT, PHOS ####[place] [address] [place] [phone] magnesium on 05-04 Magnesium [Mass/Vol] 2.0 1.7-2.3 mg/dL Normal 0 [facility] (45162) Comment: Performed By: #### MG1, PTT, CBCDIF, BMP, PT, PHOS ####[place] [address] [place], [place] [phone] consult prog on CONSULT PROG Normal 05-05-2019 [facility] (49378) CONSULT PROG Normal 05-05-2019 [facility] (63631) cbc and differential on 2019-05-05 Abs Baso 0.06 <0.11 k/uL Normal 05-05-2019 [facility] (03219) Comment: Performed By: #### MG1, PTT, CBCDIF, BMP, PT, PHOS ####[place] [address] [place], [place] [phone] Abs Zapata 0.27 <0.87 k/uL Normal 05-05-2019 [facility] (31451) Comment: Performed By: #### MG1, PTT, CBCDIF, BMP, PT, PHOS ####[facility] [place], [place] [phone] Abs Neut 2.45 1.45-7.50 k/uL Normal 05-05-2019 [facility] (26098) Comment: Performed By: #### MG1, PTT, CBCDIF, BMP, PT, PHOS ####[place] [address] [place] [phone] Anisocytosis Ql (Bld) Present Normal 05-05-19 [facility] (36701) Comment: Performed By: #### MG1, PTT, CBCDIF, BMP, PT, PHOS ####[place] [address] [place] [phone] Basophils/100 WBC (Bld) 1.8 % Normal 2019 [facility] (91003) Comment: Performed By: #### MG1, PTT, CBCDIF, BMP, PT, PHOS ####[place] [address] [place] [phone] DTYPE Manual Diff Normal 05-05-2019 [facility] (44004) Comment: Performed By: #### MG1, PTT, CBCDIF, BMP, PT, PHOS ####[place] [address] [place] [phone] Eosinophils (Bld) [#/Vol] 0.18 <0.46 k/uL Normal 04-17 [facility] (32066) Comment: Performed By: #### MG1, PTT, CBCDIF, BMP, PT, PHOS ####[place] [address] [place] [phone] Eosinophils/100 WBC (Bld) 5.3 % Normal 04-17 [facility] (59684) Comment: Performed By: #### MG1, PTT, CBCDIF, BMP, PT, PHOS ####[facility] [place], [place] [phone] Erythrocyte distribution 17.9 11.5-15.0 % High 05-04 [facility] width (RBC) [Ratio] [place] (65978) Comment: Performed By: #### MG1, PTT, CBCDIF, BMP, PT, PHOS ####[place] [address] [place], [place] [phone] Hematocrit (Bld) [Volume 23.3 39.0-51.0 % Low 05-04 [facility] fraction] (19538) Comment: Performed By: #### MG1, PTT, CBCDIF, BMP, PT, PHOS ####[place] [address] [place], [place] [phone] Hemoglobin (Bld) 7.7 13.0-17.0 g/dL Low 05-05-2019 [facility] [Mass/Vol] [place] (05804) Comment: Performed By: #### MG1, PTT, CBCDIF, BMP, PT, PHOS ####[place] [address] [place], [place] [phone] Lymphocytes (Bld) [#/Vol] 0.30 1.00-4.00 k/uL Low 04-17 [facility] (17406) Comment: Performed By: #### MG1, PTT, CBCDIF, BMP, PT, PHOS ####[place] [address] [place], [place] [phone] Lymphocytes/100 WBC (Bld) 8.8 % Normal 04-17 [facility] (72621) Comment: Performed By: #### MG1, PTT, CBCDIF, BMP, PT, PHOS ####[facility] [place], [place] [phone] MCH (RBC) [Entitic mass] 32.1 26.0-34.0 pG Normal 05-04 [facility] (90675) Comment: Performed By: #### MG1, PTT, CBCDIF, BMP, PT, PHOS ####[facility] [address] [place], [place] [phone] MCHC (RBC) [Mass/Vol] 33.0 30.5-36.0 g/dL Normal 05-05-[address] [facility] (10138) Comment: Performed By: #### MG1, PTT, CBCDIF, BMP, PT, PHOS ####[facility] [place] [phone] MCV (RBC) [Entitic vol] 97.1 80.0-100.0 fL Normal 05-04 [facility] (16085) Comment: Performed By: #### MG1, PTT, CBCDIF, BMP, PT, PHOS ####[facility] [place], [place] [phone] Fife% 1.8 % Normal 05-05-2019 [facility] (02839) Comment: Performed By: #### MG1, PTT, CBCDIF, BMP, PT, PHOS ####[facility] [place], [place] [phone] Monocytes/100 WBC (Bld) 7.9 % Normal 2019 [facility] (42793) Comment: Performed By: #### MG1, PTT, CBCDIF, BMP, PT, PHOS ####[facility] [place], [place] [phone] Myelo% 1.8 % Normal 05-05-2019 [facility] (26071) Comment: Performed By: #### MG1, PTT, CBCDIF, BMP, PT, PHOS ####[facility] [place], [place] [phone] Neutrophils/100 WBC (Bld) 72.6 % Normal 04-17 [facility] (07738) Comment: Performed By: #### MG1, PTT, CBCDIF, BMP, PT, PHOS ####[facility] [address] [place], [place] [phone] Ovalocytes Few Normal 05-05-2019 [facility] (29157) Comment: Performed By: #### MG1, PTT, CBCDIF, BMP, PT, PHOS ####[facility] [address] [place], [place] [phone] Platelet mean volume 11.8 9.0-12.7 fL Normal 0 [facility] (Bld) [Entitic vol] [place] (02185) Comment: Performed By: #### MG1, PTT, CBCDIF, BMP, PT, PHOS ####[facility] [place], [place] [phone] Platelets (Bld) [#/Vol] 141 150-400 k/uL Low 2019 [facility] (03997) Comment: Result Comment: Result check ed and verifiedNo clot detected. Performed By: #### MG1, PTT, CBCDIF, BMP, PT, PHOS ####[facility] [address] [place], [place] [phone] Platelets (Bld) Platelet estimate Normal 2019 [facility] [#/Vol] decreased [place] (15492) Comment: Performed By: #### MG1, PTT, CBCDIF, BMP, PT, PHOS ####[facility] [address] [place], [place] [phone] Polychromasia Slight Normal 05-05-2019 [facility] (00241) Comment: Performed By: #### MG1, PTT, CBCDIF, BMP, PT, PHOS ####[facility] [place], [place] [phone] RBC (Bld) [#/Vol] 2.40 4.20-6.00 m/uL Low 05-05-2019 [facility] (42289) Comment: Performed By: #### MG1, PTT, CBCDIF, BMP, PT, PHOS ####[facility] [place], [place] [phone] RBC Fragments Few Normal 05-05-2019 [facility] (68346) Comment: Performed By: #### MG1, PTT, CBCDIF, BMP, PT, PHOS ####[place] [address] [place], [place] [phone] Tear Drop Cells Few Normal 05-05-2019 [facility] (15345) Comment: Performed By: #### MG1, PTT, CBCDIF, BMP, PT, PHOS ####[place] [address] [place], [place] [phone] TSH Qn Present Normal 05-05-2019 [facility] (05715) Comment: Performed By: #### MG1, PTT, CBCDIF, BMP, PT, PHOS ####[facility] [place], [place] [phone] WBC (Bld) [#/Vol] 3.37 3.70-11.00 k/uL Low 05-05-2019 [facility] (13477) Comment: Performed By: #### MG1, PTT, CBCDIF, BMP, PT, PHOS ####[facility] [place], [place] [phone] case managem on CASE MANAGEM Normal 05-05-2019 [facility] (02638) basic metabolic panl on 2019-05-05 Anion gap [Moles/Vol] 12 9-18 mmol/L Normal 05-05-[address] [facility] (86972) Comment: Performed By: #### MG1, PTT, CBCDIF, BMP, PT, PHOS ####[facility] [place], [place] [phone] Calcium [Mass/Vol] 8.8 8.5-10.2 mg/dL Normal 05-05-2019 [facility] (91431) Comment: Performed By: #### MG1, PTT, CBCDIF, BMP, PT, PHOS ####[facility] [place], [place] [phone] Chloride [Moles/Vol] 98 97-105 mmol/L Normal 0 [facility] (22372) Comment: Performed By: #### MG1, PTT, CBCDIF, BMP, PT, PHOS ####[place] [address] [place], [place] [phone] CO2 [Moles/Vol] 23 22-30 mmol/L Normal 05-05-2019 [facility] (92541) Comment: Performed By: #### MG1, PTT, CBCDIF, BMP, PT, PHOS ####[place] [address] [place], [place] [phone] Creatinine [Mass/Vol] 1.67 0.73-1.22 mg/dL High 05-05-[address] [facility] (10623) Comment: Performed By: #### MG1, PTT, CBCDIF, BMP, PT, PHOS ####[facility] [place], [place] [phone] eGFR- Amer. 49 Normal 05-05-2019 [facility] (60321) Comment: Performed By: #### MG1, PTT, CBCDIF, BMP, PT, PHOS ####[place] [address] [place], [place] [phone] GFR/1.73 sq M predicted among 41 . Normal 05-05-2019 [facility] non-blacks MDRD (S/P/Bld) [Vol (29061) rate/Area] Comment: Result Comment: eGFR (Estima pratik GFR) Units of measure: mL/min/1.73 meters squaredeGFR is derived from the reexpressed MDRD Study equation using the following parameters: serum creatinine, age, gender and race. The creatinine assay has been calibrated to be traceable to IDMS.An eGFR <60 mL/min/1.73m2 for >3 months is consistent with chronic kidney disease. Refer to KDOQI guidelines for clinical inte rpretation.In patients with unstable renal function, e.g. those with ac cowlitz kidney injury, the eGFR may not accurately reflect actual GFR. Performed By: #### MG1, PTT, CBCDIF, BMP, PT, PHOS ####[facility] [address] [place], [place] [phone] Glucose [Mass/Vol] 303 74-99 mg/dL High 05-05-2019 [facility] (65561) Comment: Result Comment: The [place] Diabetes Association (ADA) provides guidance for cutoff values for fastin g glucose and random glucose. The ADA defines fasting as no caloric intake for at least 8 hours. Fasting plasma glucose results between 100 to 125 m g/dL indicate increased risk for diabetes (prediabetes).Fasting plasma glucose results greater than or equal to 126 mg/dL meet the criteria for diagnosis of diabetes. In the absence of unequivocal hyperglycemia, r esults should be confirmed by repeat testing. In a patient with classic sympt oms of hyperglycemia or hyperglycemic crisis, random plasma glucose result s greater than or equal to 200 mg/dL meet the criteria for diagnosis of di abetes.Reference: Standards of Medical Care in Diabetes 2016, [place] Diab etes Association. Diabetes Care. 2016.39(Suppl 1). Performed By: #### MG1, PTT, CBCDIF, BMP, PT, PHOS ####[facility] [address] [place], [place] [phone] Potassium [Moles/Vol] 4.1 3.7-5.1 mmol/L Normal 05-05-19 [facility] (44366) Comment: Performed By: #### MG1, PTT, CBCDIF, BMP, PT, PHOS ####[facility] [address] [place], [place] [phone] Sodium [Moles/Vol] 133 136-144 mmol/L Low 05-05-2019 [facility] (13511) Comment: Performed By: #### MG1, PTT, CBCDIF, BMP, PT, PHOS ####[facility] [place], [place] [phone] Urea nitrogen [Mass/Vol] 32 9-24 mg/dL High 05-04 [facility] (88462) Comment: Performed By: #### MG1, PTT, CBCDIF, BMP, PT, PHOS ####[facility] [place], [place] [phone] aptt on 2019-05-05 aPTT Coag (Bld) [Time] 25.5 23.0-32.[address] [facility] (93303) Comment: Result Comment: Unfractionat ed Heparin Therapeutic Ranges:Standard Heparin Nomogram: 53 to 78 seconds ( anti-Xa level of 0.3 to 0.7 U/ml)Low Dose/ACS Nomogram: 49 to 67 seconds ( anti-Xa level of 0.2 to 0.5 U/ml)Stroke Treatment Nomogram: 49 to 67 seconds (anti-Xa level of 0.2 to 0.5 U/ml)Note: The APTT therapeutic range h as been determined for the current lot of laboratory APTT reagent in u se throughout the [facility]. Performed By: #### MG1, PTT, CBCDIF, BMP, PT, PHOS ####[facility] [address] [place], [place] [phone] allied health on 06-05-17 [facility] Normal 05-05-2019 [facility] (23369) pt ed on 2019-05-04 PT ED Normal 05-04-2019 [facility] (39334) protime on PT Coag (PPP) [Time] 10.5 9.7-13.[address] [facility] (07062) Comment: Performed By: #### BMP, CBCD IF, PHOS, MG1, PTT, PT ####[facility] [place], [place] [phone] PT Coag (PPP) [Time] 1.0 0.9-1.[address] [facility] (62959) Comment: Result Comment: Vitamin K An tagonist (VKA) Therapeutic Range: INR 2 to 3 (Target INR of 2.5)Note: For patients treated with VKA drugs, such as warfarin, the [place] Col[employer] [place] of Chest Physicians 2012 Guideline recommends a therapeutic INR range of 2 to 3 (target INR of 2.5). This recommendation includes high-risk patients with antiphospholipid syndrome with previous arterial or venous thromboem bolism, current-generation mechanical or bioprosthetic aortic heart v alve replacement.Note: Patients with mechanical aortic valve replacement and additional risk factors for thromboembolic events (atrial fibrillation, previous thromboembolism, LV dysfunction, hypercoagulable conditions) or an older generation mechanical AVR (i.e., ball in-Cage) or any mechani veronika MVR should have a INR therapeutic range of 2.5 to 3.5 (target INR of 3) .Sawyer EDMONDSON, et al. Chest 2012, 141:7S-47SNishimesther RA, et a l. [facility] 2017, 70: 252-289 Performed By: #### BMP, CBCD IF, PHOS, MG1, PTT, PT ####[facility] [place], [place] [phone] progress on 2019-04 PROGRESS Normal 05-04-2019 [facility] (62509) phosphorus on 05-03 Phosphate [Mass/Vol] 5.1 2.7-4.8 mg/dL High 0 [facility] (78746) Comment: Performed By: #### BMP, CBCD IF, PHOS, MG1, PTT, PT ####[facility] [address] [place], [place] [phone] magnesium on 05-03 Magnesium [Mass/Vol] 2.0 1.7-2.3 mg/dL Normal 0 [facility] (25051) Comment: Performed By: #### BMP, CBCD IF, PHOS, MG1, PTT, PT ####[facility] [address] [place] [phone] consult on CONSULT Normal 05-04-2019 [facility] (91634) consult prog on CONSULT PROG Normal 05-04-2019 [facility] (43907) cbc and differential on 2019-05-04 Abs Baso 0.10 <0.11 k/uL Normal 05-04-2019 [facility] (52446) Comment: Performed By: #### BMP, CBCD IF, PHOS, MG1, PTT, PT ####[facility] [place] [phone] Abs Zapata 0.39 <0.87 k/uL Normal 05-04-2019 [facility] (27850) Comment: Performed By: #### BMP, CBCD IF, PHOS, MG1, PTT, PT ####[facility] [address] [place] [phone] Abs Neut 4.12 1.45-7.50 k/uL Normal 05-04-2019 [facility] (21602) Comment: Performed By: #### BMP, CBCD IF, PHOS, MG1, PTT, PT ####[facility] [address] [place] [phone] Anisocytosis Ql (Bld) Present Normal 05-04-19 [facility] (57024) Comment: Performed By: #### BMP, CBCD IF, PHOS, MG1, PTT, PT ####[facility] [address] [place] [phone] Basophils/100 WBC (Bld) 1.8 % Normal 2019 [facility] (83728) Comment: Performed By: #### BMP, CBCD IF, PHOS, MG1, PTT, PT ####[facility] [address] [place] [phone] DTYPE Manual Diff Normal 05-04-2019 [facility] (49626) Comment: Performed By: #### BMP, CBCD IF, PHOS, MG1, PTT, PT ####[facility] [place] [phone] Eosinophils (Bld) [#/Vol] 0.20 <0.46 k/uL Normal 04-17 [facility] (96490) Comment: Performed By: #### BMP, CBCD IF, PHOS, MG1, PTT, PT ####[place] [address] [place] [phone] Eosinophils/100 WBC (Bld) 3.5 % Normal 04-17 [facility] (96669) Comment: Performed By: #### BMP, CBCD IF, PHOS, MG1, PTT, PT ####[place] [address] [place] [phone] Erythrocyte distribution 18.0 11.5-15.0 % High 05-03 [facility] width (RBC) [Ratio] [place] (05262) Comment: Performed By: #### BMP, CBCD IF, PHOS, MG1, PTT, PT ####[place] [address] [place] [phone] Hematocrit (Bld) [Volume 27.1 39.0-51.0 % Low 05-03 [facility] fraction] (98523) Comment: Performed By: #### BMP, CBCD IF, PHOS, MG1, PTT, PT ####[facility] [place] [phone] Hemoglobin (Bld) 8.8 13.0-17.0 g/dL Low 05-04-2019 [facility] [Mass/Vol] [place] (31873) Comment: Performed By: #### BMP, CBCD IF, PHOS, MG1, PTT, PT ####[facility] [place], [place] [phone] Lymphocytes (Bld) [#/Vol] 0.64 1.00-4.00 k/uL Low 04-17 [facility] (20744) Comment: Performed By: #### BMP, CBCD IF, PHOS, MG1, PTT, PT ####[place] [address] [place], [place] [phone] Lymphocytes/100 WBC (Bld) 11.4 % Normal 04-17 [facility] (25640) Comment: Performed By: #### BMP, CBCD IF, PHOS, MG1, PTT, PT ####[place] [address] [place], [place] [phone] MCH (RBC) [Entitic mass] 31.4 26.0-34.0 pG Normal 05-03 [facility] (89782) Comment: Performed By: #### BMP, CBCD IF, PHOS, MG1, PTT, PT ####[place] [address] [place], [place] [phone] MCHC (RBC) [Mass/Vol] 32.5 30.5-36.0 g/dL Normal 05-04-19 [facility] (67531) Comment: Performed By: #### BMP, CBCD IF, PHOS, MG1, PTT, PT ####[place] [address] [place], [place] [phone] MCV (RBC) [Entitic vol] 96.8 80.0-100.0 fL Normal 05-03 [facility] (89113) Comment: Performed By: #### BMP, CBCD IF, PHOS, MG1, PTT, PT ####[facility] [place], [place] [phone] Monocytes/100 WBC (Bld) 7.0 % Normal 2019 [facility] (89526) Comment: Performed By: #### BMP, CBCD IF, PHOS, MG1, PTT, PT ####[facility] [address] [place], [place] [phone] Myelo% 2.6 % Normal 05-04-2019 [facility] (13265) Comment: Performed By: #### BMP, CBCD IF, PHOS, MG1, PTT, PT ####[facility] [place], [place] [phone] Neutrophils/100 WBC (Bld) 73.7 % Normal 04-17 [facility] (17339) Comment: Performed By: #### BMP, CBCD IF, PHOS, MG1, PTT, PT ####[place] [address] [place], [place] [phone] NRBCs 2 0 /100 WBC High 05-04-2019 [facility] (73535) Comment: Performed By: #### BMP, CBCD IF, PHOS, MG1, PTT, PT ####[facility] [address] [place], [place] [phone] Ovalocytes Few Normal 05-04-2019 [facility] (01669) Comment: Performed By: #### BMP, CBCD IF, PHOS, MG1, PTT, PT ####[facility] [place], [place] [phone] Platelet mean volume 11.7 9.0-12.7 fL Normal 0 [facility] (Bld) [Entitic vol] [place] (08689) Comment: Performed By: #### BMP, CBCD IF, PHOS, MG1, PTT, PT ####[facility] [address] [place], [place] [phone] Platelets (d) [#/Vol] 159 150-400 k/uL Normal 2019 [facility] (31937) Comment: Performed By: #### BMP, CBCD IF, PHOS, MG1, PTT, PT ####[facility] [address] [place], [place] [phone] Platelets (Bld) Platelet estimate Normal 2019 [facility] [#/Vol] [facility] (79786) Comment: Performed By: #### BMP, CBCD IF, PHOS, MG1, PTT, PT ####[place] [address] [place], [place] [phone] Polychromasia Slight Normal 05-04-2019 [facility] (93110) Comment: Performed By: #### BMP, CBCD IF, PHOS, MG1, PTT, PT ####[place] [address] [place], [place] [phone] RBC (Bld) [#/Vol] 2.80 4.20-6.00 m/uL Low 05-04-2019 [facility] (09175) Comment: Performed By: #### BMP, CBCD IF, PHOS, MG1, PTT, PT ####[place] [address] [place], [place] [phone] Spherocytes Few Normal 05-04-2019 [facility] (89641) Comment: Performed By: #### BMP, CBCD IF, PHOS, MG1, PTT, PT ####[facility] [place], [place] [phone] TSH Qn Present Normal 05-04-2019 [facility] (03830) Comment: Performed By: #### BMP, CBCD IF, PHOS, MG1, PTT, PT ####[facility] [place], [place] [phone] WBC (Bld) [#/Vol] 5.59 3.70-11.00 k/uL Normal 05-04-2019 [facility] (12713) Comment: Performed By: #### BMP, CBCD IF, PHOS, MG1, PTT, PT ####[facility] [place], [place] [phone] case managem on CASE MANAGEM Normal 05-04-2019 [facility] (61453) basic metabolic panl on 2019-05-04 Anion gap [Moles/Vol] 13 9-18 mmol/L Normal 05-04-19 [facility] (37964) Comment: Performed By: #### BMP, CBCD IF, PHOS, MG1, PTT, PT ####[facility] [place], [place] [phone] Calcium [Mass/Vol] 9.1 8.5-10.2 mg/dL Normal 05-04-2019 [facility] (27161) Comment: Performed By: #### BMP, CBCD IF, PHOS, MG1, PTT, PT ####[facility] [place], [place] [phone] Chloride [Moles/Vol] 99 97-105 mmol/L Normal 0 [facility] (67333) Comment: Performed By: #### BMP, CBCD IF, PHOS, MG1, PTT, PT ####[facility] [place], [place] [phone] CO2 [Moles/Vol] 24 22-30 mmol/L Normal 05-04-2019 [facility] (93702) Comment: Performed By: #### BMP, CBCD IF, PHOS, MG1, PTT, PT ####[facility] [place], [place] [phone] Creatinine [Mass/Vol] 1.59 0.73-1.22 mg/dL High 05-04-19 [facility] (29588) Comment: Performed By: #### BMP, CBCD IF, PHOS, MG1, PTT, PT ####[facility] [address] [place], [place] [phone] eGFR- Amer. 52 Normal 05-04-2019 [facility] (09371) Comment: Performed By: #### BMP, CBCD IF, PHOS, MG1, PTT, PT ####[facility] [address] [place], [place] [phone] GFR/1.73 sq M predicted among 43 . Normal 05-04-2019 [facility] non-blacks MDRD (S/P/Bld) [Vol (27554) rate/Area] Comment: Result Comment: eGFR (Estima pratik GFR) Units of measure: mL/min/1.73 meters squaredeGFR is derived from the reexpressed MDRD Study equation using the following parameters: serum creatinine, age, gender and race. The creatinine assay has been calibrated to be traceable to IDMS.An eGFR <60 mL/min/1.73m2 for >3 months is consistent with chronic kidney disease. Refer to KDOQI guidelines for clinical inte rpretation.In patients with unstable renal function, e.g. those with ac cowlitz kidney injury, the eGFR may not accurately reflect actual GFR. Performed By: #### BMP, CBCD IF, PHOS, MG1, PTT, PT ####[facility] [address] [place], [place] [phone] Glucose [Mass/Vol] 189 74-99 mg/dL High 05-04-2019 [facility] (43170) Comment: Result Comment: The [place] Diabetes Association (ADA) provides guidance for cutoff values for fastin g glucose and random glucose. The ADA defines fasting as no caloric intake for at least 8 hours. Fasting plasma glucose results between 100 to 125 m g/dL indicate increased risk for diabetes (prediabetes).Fasting plasma glucose results greater than or equal to 126 mg/dL meet the criteria for diagnosis of diabetes. In the absence of unequivocal hyperglycemia, r esults should be confirmed by repeat testing. In a patient with classic sympt oms of hyperglycemia or hyperglycemic crisis, random plasma glucose result s greater than or equal to 200 mg/dL meet the criteria for diagnosis of di abetes.Reference: Standards of Medical Care in Diabetes 2016, [place] Diab etes Association. Diabetes Care. 2016.39(Suppl 1). Performed By: #### BMP, CBCD IF, PHOS, MG1, PTT, PT ####[facility] [address] [place], [place] [phone] Potassium [Moles/Vol] 4.6 3.7-5.1 mmol/L Normal 05-04-19 [facility] (08357) Comment: Performed By: #### BMP, CBCD IF, PHOS, MG1, PTT, PT ####[place] [address] [place], [place] [phone] Sodium [Moles/Vol] 136 136-144 mmol/L Normal 05-04-2019 [facility] (19194) Comment: Performed By: #### BMP, CBCD IF, PHOS, MG1, PTT, PT ####[place] [address] [place], [place] [phone] Urea nitrogen [Mass/Vol] 30 9-24 mg/dL High 05-03 [facility] (16475) Comment: Performed By: #### BMP, CBCD IF, PHOS, MG1, PTT, PT ####[facility] [place], [place] [phone] aptt on 2019-05-04 aPTT Coag (Bld) [Time] 25.4 23.0-32.[address] [facility] (87155) Comment: Result Comment: Unfractionat ed Heparin Therapeutic Ranges:Standard Heparin Nomogram: 53 to 78 seconds ( anti-Xa level of 0.3 to 0.7 U/ml)Low Dose/ACS Nomogram: 49 to 67 seconds ( anti-Xa level of 0.2 to 0.5 U/ml)Stroke Treatment Nomogram: 49 to 67 seconds (anti-Xa level of 0.2 to 0.5 U/ml)Note: The APTT therapeutic range h as been determined for the current lot of laboratory APTT reagent in u se throughout the [facility]. Performed By: #### BMP, CBCD IF, PHOS, MG1, PTT, PT ####[facility] [place], [place] [phone] allied health on 06-05-16 [facility] Normal 05-04-2019 [facility] (75456) [facility] Normal 05-04-2019 [facility] (95440) pt ed on 2019-05-03 PT ED Normal 05-03-2019 [facility] (75253) protime on PT Coag (PPP) [Time] 1.0 0.9-1.[address] [facility] (57832) Comment: Result Comment: Vitamin K An tagonist (VKA) Therapeutic Range: INR 2 to 3 (Target INR of 2.5)Note: For patients treated with VKA drugs, such as warfarin, the [place] [employer] [employer] Chest [employer] 2012 Guideline recommends a therapeutic INR range of 2 to 3 (target INR of 2.5). This recommendation includes high-risk patients with antiphospholipid syndrome with previous arterial or venous thromboem bolism, current-generation mechanical or bioprosthetic aortic heart v alve replacement.Note: Patients with mechanical aortic valve replacement and additional risk factors for thromboembolic events (atrial fibrillation, previous thromboembolism, LV dysfunction, hypercoagulable conditions) or an older generation mechanical AVR (i.e., ball in-Cage) or any mechani veronika MVR should have a INR therapeutic range of 2.5 to 3.5 (target INR of 3) .Sawyer GH, et al. Chest 2012, 141:7S-47SKathy BRITO et a owen. [facility] 2017, 70: 252-289 Performed By: #### HFP, PT, BMP, CBCDIF, MG1, CRP, PREALB, PTT, PHOS ####[facility] Laborat [id number], [place] [phone] PT Coag (PPP) [Time] 10.5 9.7-13.[address] [facility] (02328) Comment: Performed By: #### HFP, PT, BMP, CBCDIF, MG1, CRP, PREALB, PTT, PHOS ####[facility] Laborat twcyc[address], [place] [phone] progress on 2019-04 PROGRESS Normal 05-03-2019 [facility] (91423) prealbumin on 05-02 Prealbumin [Mass/Vol] 11 17-36 mg/dL Low 05-03-[address] [facility] (47014) Comment: Performed By: #### HFP, PT, BMP, CBCDIF, MG1, CRP, PREALB, PTT, PHOS ####[facility] Laborat klmwc[address], [place] [phone] phosphorus on 05-02 Phosphate [Mass/Vol] 4.0 2.7-4.8 mg/dL Normal 0 [facility] (03213) Comment: Performed By: #### HFP, PT, BMP, CBCDIF, MG1, CRP, PREALB, PTT, PHOS ####[facility] Laborat fbmap[address], [place] [phone] magnesium on 05-02 Magnesium [Mass/Vol] 2.1 1.7-2.3 mg/dL Normal 0 [facility] (81682) Comment: Performed By: #### HFP, PT, BMP, CBCDIF, MG1, CRP, PREALB, PTT, PHOS ####[facility] Laborat izgwg[address], [place] [phone] hepatic functn panel on 2019-05-03 Albumin [Mass/Vol] 3.1 3.9-4.9 g/dL Low 05-03-2019 [facility] (82343) Comment: Performed By: #### HFP, PT, BMP, CBCDIF, MG1, CRP, PREALB, PTT, PHOS ####[facility] Laborat lfso[address], [place] [phone] ALP [Catalytic activity/Vol] 104 38-113 U/L Normal 0 05-03-2019 [facility] (87135) Comment: Performed By: #### HFP, PT, BMP, CBCDIF, MG1, CRP, PREALB, PTT, PHOS ####[facility] Laborat sivxa[address]level[place], [place] [phone] ALT [Catalytic activity/Vol] 7 10-54 U/L Low 0 05-03-2019 [facility] (61916) Comment: Performed By: #### HFP, PT, BMP, CBCDIF, MG1, CRP, PREALB, PTT, PHOS ####[facility] Laborat jxkmx[address], [place] [phone] AST [Catalytic activity/Vol] 18 14-40 U/L Normal 0 05-03-2019 [facility] (72276) Comment: Performed By: #### HFP, PT, BMP, CBCDIF, MG1, CRP, PREALB, PTT, PHOS ####[facility] arrbd0990 [address], [place] [phone] Bilirubin [Mass/Vol] 0.5 0.2-1.3 mg/dL Normal 0 [facility] (05355) Comment: Performed By: #### HFP, PT, BMP, CBCDIF, MG1, CRP, PREALB, PTT, PHOS ####[facility] ywxym70[address], [place] [phone] Bilirubin,Conjugated <0.2 <0.[address] [facility] (54495) Comment: Performed By: #### HFP, PT, BMP, CBCDIF, MG1, CRP, PREALB, PTT, PHOS ####[facility] Laborat emoyb[address]CH[place], [place] [phone] Protein [Mass/Vol] 5.0 6.3-8.0 g/dL Low 05-03-2019 [facility] (83517) Comment: Performed By: #### HFP, PT, BMP, CBCDIF, MG1, CRP, PREALB, PTT, PHOS ####[facility] Laborat ihgay[address], [place] [phone] consult prog on CONSULT PROG Normal 05-03-2019 [facility] (61947) cbc and differential on 2019-05-03 Abs Baso 0.04 <0.11 k/uL Normal 05-03-2019 [facility] (55829) Comment: Performed By: #### HFP, PT, BMP, CBCDIF, MG1, CRP, PREALB, PTT, PHOS ####[facility] Laborat liulw[address], [place] [phone] Abs Zapata 0.41 <0.87 k/uL Normal 05-03-2019 [facility] (32241) Comment: Performed By: #### HFP, PT, BMP, CBCDIF, MG1, CRP, PREALB, PTT, PHOS ####[facility] Laborat dfcmq[address]CH[place], [place] [phone] Abs Neut 3.16 1.45-7.50 k/uL Normal 05-03-2019 [facility] (30189) Comment: Performed By: #### HFP, PT, BMP, CBCDIF, MG1, CRP, PREALB, PTT, PHOS ####[facility] Laborat umubx[address], [place] [phone] Anisocytosis Ql (Bld) Present Normal 05-03-19 [facility] (92717) Comment: Performed By: #### HFP, PT, BMP, CBCDIF, MG1, CRP, PREALB, PTT, PHOS ####[facility] Laborat jxfdr[address]CH[place], [place] [phone] Basophils/100 WBC (Bld) 0.9 % Normal 2019 [facility] (52655) Comment: Performed By: #### HFP, PT, BMP, CBCDIF, MG1, CRP, PREALB, PTT, PHOS ####[facility] Laborat bljev[address]CH[place], [place] [phone] DTYPE Manual Diff Normal 05-03-2019 [facility] (15239) Comment: Performed By: #### HFP, PT, BMP, CBCDIF, MG1, CRP, PREALB, PTT, PHOS ####[facility] Laborat hlvqa[address], [place] [phone] Eosinophils (Bld) [#/Vol] 0.04 <0.46 k/uL Normal 04-17 [facility] (77857) Comment: Performed By: #### HFP, PT, BMP, CBCDIF, MG1, CRP, PREALB, PTT, PHOS ####[facility] Laborat vpbep[address], [place] [phone] Eosinophils/100 WBC (Bld) 0.9 % Normal 04-17 [facility] (10771) Comment: Performed By: #### HFP, PT, BMP, CBCDIF, MG1, CRP, PREALB, PTT, PHOS ####[facility] Laborat ahwyh[address], [place] [phone] Erythrocyte distribution 17.3 11.5-15.0 % High 05-02 [facility] width (RBC) [Ratio] [place] (50676) Comment: Performed By: #### HFP, PT, BMP, CBCDIF, MG1, CRP, PREALB, PTT, PHOS ####[facility] Laborat tmuoh[address]C[place], [place] [phone] Hematocrit (Bld) [Volume 24.5 39.0-51.0 % Low 05-02 [facility] fraction] (41406) Comment: Performed By: #### HFP, PT, BMP, CBCDIF, MG1, CRP, PREALB, PTT, PHOS ####[facility] Laborat vlmrl[address], [place] [phone] Hemoglobin (Bld) 8.1 13.0-17.0 g/dL Low 05-03-2019 [facility] [Mass/Vol] [place] (78643) Comment: Performed By: #### HFP, PT, BMP, CBCDIF, MG1, CRP, PREALB, PTT, PHOS ####[facility] Laborat iynec[address], [place] [phone] Lymphocytes (Bld) [#/Vol] 0.37 1.00-4.00 k/uL Low 04-17 [facility] (05938) Comment: Performed By: #### HFP, PT, BMP, CBCDIF, MG1, CRP, PREALB, PTT, PHOS ####[facility] Laborat xzrkm[address]CH[place], [place] [phone] Lymphocytes/100 WBC (Bld) 8.8 % Normal 04-17 [facility] (21538) Comment: Performed By: #### HFP, PT, BMP, CBCDIF, MG1, CRP, PREALB, PTT, PHOS ####[facility] Laborat hfpld[address]CH[place], [place] [phone] MCH (RBC) [Entitic mass] 31.5 26.0-34.0 pG Normal 05-02 [facility] (44398) Comment: Performed By: #### HFP, PT, BMP, CBCDIF, MG1, CRP, PREALB, PTT, PHOS ####[facility] Laborat gcdlq[address]CH[place], [place] [phone] MCHC (RBC) [Mass/Vol] 33.1 30.5-36.0 g/dL Normal 05-03-19 [facility] (50629) Comment: Performed By: #### HFP, PT, BMP, CBCDIF, MG1, CRP, PREALB, PTT, PHOS ####[facility] Laborat kocqa[address], [place] [phone] MCV (RBC) [Entitic vol] 95.3 80.0-100.0 fL Normal 05-02 [facility] (93301) Comment: Performed By: #### HFP, PT, BMP, CBCDIF, MG1, CRP, PREALB, PTT, PHOS ####[facility] Laborat hrwkt60[address], [place] [phone] Fife% 1.8 % Normal 05-03-2019 [facility] (11829) Comment: Performed By: #### HFP, PT, BMP, CBCDIF, MG1, CRP, PREALB, PTT, PHOS ####[facility] Laborat gteku[address], [place] [phone] Monocytes/100 WBC (Bld) 9.6 % Normal 2019 [facility] (32916) Comment: Performed By: #### HFP, PT, BMP, CBCDIF, MG1, CRP, PREALB, PTT, PHOS ####[facility] Laborat ekxqb1576 [address] [phone] Myelo% 3.5 % Normal 05-03-2019 [facility] (54951) Comment: Performed By: #### HFP, PT, BMP, CBCDIF, MG1, CRP, PREALB, PTT, PHOS ####[facility] Laborat fmqxr0327 [address] [phone] Neutrophils/100 WBC (Bld) 74.5 % Normal 04-17 [facility] (80835) Comment: Performed By: #### HFP, PT, BMP, CBCDIF, MG1, CRP, PREALB, PTT, PHOS ####[facility] Laborat gyaoa[address] [phone] Ovalocytes Few Normal 05-03-2019 [facility] (44381) Comment: Performed By: #### HFP, PT, BMP, CBCDIF, MG1, CRP, PREALB, PTT, PHOS ####[facility] Laborat sknpv1845 [address] [phone] Platelet mean volume 11.6 9.0-12.7 fL Normal 0 [facility] (Bld) [Entitic vol] [place] (92521) Comment: Performed By: #### HFP, PT, BMP, CBCDIF, MG1, CRP, PREALB, PTT, PHOS ####[facility] Laborat eydhb8845 [address]CH[place], [place] [phone] Platelets (Bld) [#/Vol] 125 150-400 k/uL Low 2019 [facility] (00949) Comment: Result Comment: Result check ed and verifiedNo clot detected. Performed By: #### HFP, PT, BMP, CBCDIF, MG1, CRP, PREALB, PTT, PHOS ####[facility] icmxp3922 [address], [place] [phone] Platelets (Bld) Platelet estimate Normal 2019 [facility] [#/Vol] decreased [place] (13249) Comment: Performed By: #### HFP, PT, BMP, CBCDIF, MG1, CRP, PREALB, PTT, PHOS ####[facility] Laborat yydwx[address], [place] [phone] Polychromasia Slight Normal 05-03-2019 [facility] (30743) Comment: Performed By: #### HFP, PT, BMP, CBCDIF, MG1, CRP, PREALB, PTT, PHOS ####[facility] Laborat uapnv4[address], [place] [phone] RBC (Bld) [#/Vol] 2.57 4.20-6.00 m/uL Low 05-03-2019 [facility] (34759) Comment: Performed By: #### HFP, PT, BMP, CBCDIF, MG1, CRP, PREALB, PTT, PHOS ####[facility] hzakr2342 [address], [place] [phone] TSH Qn Present Normal 05-03-2019 [facility] (38907) Comment: Performed By: #### HFP, PT, BMP, CBCDIF, MG1, CRP, PREALB, PTT, PHOS ####[facility] Laborat dhgxq[address], [place] [phone] WBC (Bld) [#/Vol] 4.24 3.70-11.00 k/uL Normal 05-03-2019 [facility] (44045) Comment: Performed By: #### HFP, PT, BMP, CBCDIF, MG1, CRP, PREALB, PTT, PHOS ####[facility] Laborat hslsy[address], [place] [phone] c-reactive protein on 2019-05-03 CRP [Mass/Vol] 3.5 <0.9 mg/dL High 05-03-2019 [facility] (54702) Comment: Performed By: #### HFP, PT, BMP, CBCDIF, MG1, CRP, PREALB, PTT, PHOS ####[facility] Laborat opbgz[address]67 [address], [place] [phone] basic metabolic panl on 2019-05-03 Anion gap [Moles/Vol] 10 9-18 mmol/L Normal 05-03-19 [facility] (54817) Comment: Performed By: #### HFP, PT, BMP, CBCDIF, MG1, CRP, PREALB, PTT, PHOS ####[facility] Laborat uogdf40[address], [place] [phone] Calcium [Mass/Vol] 8.8 8.5-10.2 mg/dL Normal 05-03-2019 [facility] (31283) Comment: Performed By: #### HFP, PT, BMP, CBCDIF, MG1, CRP, PREALB, PTT, PHOS ####[facility] jabox4374 [address], [place] [phone] Chloride [Moles/Vol] 96 97-105 mmol/L Low 0 [facility] (85074) Comment: Performed By: #### HFP, PT, BMP, CBCDIF, MG1, CRP, PREALB, PTT, PHOS ####[facility] Laborat jdazl36[address], [place] [phone] CO2 [Moles/Vol] 27 22-30 mmol/L Normal 05-03-2019 [facility] (83651) Comment: Performed By: #### HFP, PT, BMP, CBCDIF, MG1, CRP, PREALB, PTT, PHOS ####[facility] Laborat oyblf3[address]CH[place], [place] [phone] Creatinine [Mass/Vol] 1.46 0.73-1.22 mg/dL High 05-03-[address] [facility] (80987) Comment: Performed By: #### HFP, PT, BMP, CBCDIF, MG1, CRP, PREALB, PTT, PHOS ####[facility] hsrjs0455 [address], [place] [phone] eGFR- Amer. 58 Normal 05-03-2019 [facility] (21815) Comment: Performed By: #### HFP, PT, BMP, CBCDIF, MG1, CRP, PREALB, PTT, PHOS ####[facility] hdlny[address], [place] [phone] GFR/1.73 sq M predicted among 48 . Normal 05-03-2019 [facility] non-blacks MDRD (S/P/Bld) [Vol (20999) rate/Area] Comment: Result Comment: eGFR (Estima pratik GFR) Units of measure: mL/min/1.73 meters squaredeGFR is derived from the reexpressed MDRD Study equation using the following parameters: serum creatinine, age, gender and race. The creatinine assay has been calibrated to be traceable to IDMS.An eGFR <60 mL/min/1.73m2 for >3 months is consistent with chronic kidney disease. Refer to KDOQI guidelines for clinical inte rpretation.In patients with unstable renal function, e.g. those with ac cowlitz kidney injury, the eGFR may not accurately reflect actual GFR. Performed By: #### HFP, PT, BMP, CBCDIF, MG1, CRP, PREALB, PTT, PHOS ####[facility] bcxmj1307 [address], [place] [phone] Glucose [Mass/Vol] 171 74-99 mg/dL High 05-03-2019 [facility] (60701) Comment: Result Comment: The [place] Diabetes Association (ADA) provides guidance for cutoff values for fastin g glucose and random glucose. The ADA defines fasting as no caloric intake for at least 8 hours. Fasting plasma glucose results between 100 to 125 m g/dL indicate increased risk for diabetes (prediabetes).Fasting plasma glucose results greater than or equal to 126 mg/dL meet the criteria for diagnosis of diabetes. In the absence of unequivocal hyperglycemia, r esults should be confirmed by repeat testing. In a patient with classic sympt oms of hyperglycemia or hyperglycemic crisis, random plasma glucose result s greater than or equal to 200 mg/dL meet the criteria for diagnosis of di abetes.Reference: Standards of Medical Care in Diabetes 2016, [place] Diab etes Association. Diabetes Care. 2016.39(Suppl 1). Performed By: #### HFP, PT, BMP, CBCDIF, MG1, CRP, PREALB, PTT, PHOS ####[facility] ckhgg2181 [address], [place] [phone] Potassium [Moles/Vol] 4.9 3.7-5.1 mmol/L Normal 05-03-19 [facility] (99264) Comment: Performed By: #### HFP, PT, BMP, CBCDIF, MG1, CRP, PREALB, PTT, PHOS ####[facility] Laborat wkrzw4907 [address]CH[place], [place] [phone] Sodium [Moles/Vol] 133 136-144 mmol/L Low 05-03-2019 [facility] (43318) Comment: Performed By: #### HFP, PT, BMP, CBCDIF, MG1, CRP, PREALB, PTT, PHOS ####[facility] sonql9105 [address], [place] [phone] Urea nitrogen [Mass/Vol] 27 9-24 mg/dL High 05-02 [facility] (51452) Comment: Performed By: #### HFP, PT, BMP, CBCDIF, MG1, CRP, PREALB, PTT, PHOS ####[facility] tfzvz5[address]CH[place], [place] [phone] aptt on 2019-05-03 aPTT Coag (Bld) [Time] 25.9 23.0-32.[address] [facility] (11032) Comment: Result Comment: Unfractionat ed Heparin Therapeutic Ranges:Standard Heparin Nomogram: 53 to 78 seconds ( anti-Xa level of 0.3 to 0.7 U/ml)Low Dose/ACS Nomogram: 49 to 67 seconds ( anti-Xa level of 0.2 to 0.5 U/ml)Stroke Treatment Nomogram: 49 to 67 seconds (anti-Xa level of 0.2 to 0.5 U/ml)Note: The APTT therapeutic range h as been determined for the current lot of laboratory APTT reagent in u se throughout the [facility]. Performed By: #### HFP, PT, BMP, CBCDIF, MG1, CRP, PREALB, PTT, PHOS ####[facility] [place], [place] [phone] protime on PT Coag (PPP) [Time] 10.6 9.7-13.[address] [facility] (09344) Comment: Performed By: #### MG1, PTT, PT, CBCDIF, PHOS, BMP ####[facility] [place], [place] [phone] PT Coag (PPP) [Time] 1.0 0.9-1.[address] [facility] (18795) Comment: Result Comment: Vitamin K An tagonist (VKA) Therapeutic Range: INR 2 to 3 (Target INR of 2.5)Note: For patients treated with VKA drugs, such as warfarin, the [place] [employer] [place] of Chest Physicians 2012 Guideline recommends a therapeutic INR range of 2 to 3 (target INR of 2.5). This recommendation includes high-risk patients with antiphospholipid syndrome with previous arterial or venous thromboem bolism, current-generation mechanical or bioprosthetic aortic heart v alve replacement.Note: Patients with mechanical aortic valve replacement and additional risk factors for thromboembolic events (atrial fibrillation, previous thromboembolism, LV dysfunction, hypercoagulable conditions) or an older generation mechanical AVR (i.e., ball in-Cage) or any mechani veronika MVR should have a INR therapeutic range of 2.5 to 3.5 (target INR of 3) .Sawyer GH, et al. Chest 2012, 141:7S-47SNishyadiel RA, et a l. [facility] 2017, 70: 252-289 Performed By: #### MG1, PTT, PT, CBCDIF, PHOS, BMP ####[facility] [address] [place], [place] [phone] progress on 2019-04 PROGRESS Normal 05-02-2019 [facility] (93768) PROGRESS Normal 05-02-2019 [facility] (05164) phosphorus on 05-01 Phosphate [Mass/Vol] 3.6 2.7-4.8 mg/dL Normal 0 [facility] (64997) Comment: Performed By: #### MG1, PTT, PT, CBCDIF, PHOS, BMP ####[facility] [address] [place], [place] [phone] magnesium on 15 Magnesium [Mass/Vol] 1.9 1.7-2.3 mg/dL Normal 0 [facility] (20419) Comment: Performed By: #### MG1, PTT, PT, CBCDIF, PHOS, BMP ####[facility] [address] [facility] [place] [phone] cbc and differential on 2019-05-02 Abs Baso 0.07 <0.11 k/uL Normal 05-02-2019 [facility] (26777) Comment: Performed By: #### MG1, PTT, PT, CBCDIF, PHOS, BMP ####[facility] [place], [place] [phone] Abs Zapata 0.31 <0.87 k/uL Normal 05-02-2019 [facility] (88786) Comment: Performed By: #### MG1, PTT, PT, CBCDIF, PHOS, BMP ####[place] [address] [place], [place] [phone] Abs Neut 3.08 1.45-7.50 k/uL Normal 05-02-2019 [facility] (53302) Comment: Performed By: #### MG1, PTT, PT, CBCDIF, PHOS, BMP ####[place] [address] [place], [place] [phone] Anisocytosis Ql (Bld) Present Normal 05-02-19 [facility] (32088) Comment: Performed By: #### MG1, PTT, PT, CBCDIF, PHOS, BMP ####[place] [address] [place], [place] [phone] Basophils/100 WBC (Bld) 1.8 % Normal 2019 [facility] (61587) Comment: Performed By: #### MG1, PTT, PT, CBCDIF, PHOS, BMP ####[place] [address] [place], [place] [phone] DTYPE Manual Diff Normal 05-02-2019 [facility] (90567) Comment: Performed By: #### MG1, PTT, PT, CBCDIF, PHOS, BMP ####[facility] [place], [place] [phone] Eosinophils (Bld) [#/Vol] 0.10 <0.46 k/uL Normal 04-17 [facility] (42404) Comment: Performed By: #### MG1, PTT, PT, CBCDIF, PHOS, BMP ####[facility] [place] [phone] Eosinophils/100 WBC (Bld) 2.7 % Normal 04-17 [facility] (88230) Comment: Performed By: #### MG1, PTT, PT, CBCDIF, PHOS, BMP ####[place] [address] [place] [phone] Erythrocyte distribution 16.9 11.5-15.0 % High 05-01 [facility] width (RBC) [Ratio] [place] (11427) Comment: Performed By: #### MG1, PTT, PT, CBCDIF, PHOS, BMP ####[place] [address] [place] [phone] Hematocrit (Bld) [Volume 25.1 39.0-51.0 % Low 05-01 [facility] fraction] (59001) Comment: Performed By: #### MG1, PTT, PT, CBCDIF, PHOS, BMP ####[place] [address] [place] [phone] Hemoglobin (Bld) 8.4 13.0-17.0 g/dL Low 05-02-2019 [facility] [Mass/Vol] [place] (89915) Comment: Performed By: #### MG1, PTT, PT, CBCDIF, PHOS, BMP ####[facility] [address] [place] [phone] Lymphocytes (Bld) [#/Vol] 0.27 1.00-4.00 k/uL Low 04-17 [facility] (46127) Comment: Performed By: #### MG1, PTT, PT, CBCDIF, PHOS, BMP ####[facility] [place], [place] [phone] Lymphocytes/100 WBC (Bld) 7.1 % Normal 04-17 [facility] (78815) Comment: Performed By: #### MG1, PTT, PT, CBCDIF, PHOS, BMP ####[facility] [place], [place] [phone] MCH (RBC) [Entitic mass] 31.2 26.0-34.0 pG Normal 05-01 [facility] (21781) Comment: Performed By: #### MG1, PTT, PT, CBCDIF, PHOS, BMP ####[place] [address] [place], [place] [phone] MCHC (RBC) [Mass/Vol] 33.5 30.5-36.0 g/dL Normal 05-02-19 [facility] (76090) Comment: Performed By: #### MG1, PTT, PT, CBCDIF, PHOS, BMP ####[facility] [place], [place] [phone] MCV (RBC) [Entitic vol] 93.3 80.0-100.0 fL Normal 05-01 [facility] (12296) Comment: Performed By: #### MG1, PTT, PT, CBCDIF, PHOS, BMP ####[place] [address] [place], [place] [phone] Monocytes/100 WBC (Bld) 8.0 % Normal 2019 [facility] (56784) Comment: Performed By: #### MG1, PTT, PT, CBCDIF, PHOS, BMP ####[facility] [place], [place] [phone] Neutrophils/100 WBC (Bld) 80.4 % Normal 04-17 [facility] (79294) Comment: Performed By: #### MG1, PTT, PT, CBCDIF, PHOS, BMP ####[place] [address] [place], [place] [phone] Platelet mean volume 12.0 9.0-12.7 fL Normal 0 [facility] (Bld) [Entitic vol] [place] (06379) Comment: Performed By: #### MG1, PTT, PT, CBCDIF, PHOS, BMP ####[place] [address] [place], [place] [phone] Platelets (Bld) [#/Vol] 122 150-400 k/uL Low 2019 [facility] (97472) Comment: Performed By: #### MG1, PTT, PT, CBCDIF, PHOS, BMP ####[place] [address] [place], [place] [phone] Platelets (Bld) Platelet estimate Normal 2019 [facility] [#/Vol] decreased [place] (77428) Comment: Performed By: #### MG1, PTT, PT, CBCDIF, PHOS, BMP ####[place] [address] [place], [place] [phone] Polychromasia Slight Normal 05-02-2019 [facility] (49980) Comment: Performed By: #### MG1, PTT, PT, CBCDIF, PHOS, BMP ####[place] [address] [place], [place] [phone] RBC (Bld) [#/Vol] 2.69 4.20-6.00 m/uL Low 05-02-2019 [facility] (01309) Comment: Performed By: #### MG1, PTT, PT, CBCDIF, PHOS, BMP ####[place] [address] [place], [place] [phone] WBC (Bld) [#/Vol] 3.83 3.70-11.00 k/uL Normal 05-02-2019 [facility] (26796) Comment: Performed By: #### MG1, PTT, PT, CBCDIF, PHOS, BMP ####[facility] [place], [place] [phone] basic metabolic panl on 2019-05-02 Anion gap [Moles/Vol] 14 9-18 mmol/L Normal 05-02-[address] [facility] (79541) Comment: Performed By: #### MG1, PTT, PT, CBCDIF, PHOS, BMP ####[facility] [place] [phone] Calcium [Mass/Vol] 8.6 8.5-10.2 mg/dL Normal 05-02-2019 [facility] (40381) Comment: Performed By: #### MG1, PTT, PT, CBCDIF, PHOS, BMP ####[place] [address] [place] [phone] Chloride [Moles/Vol] 97 97-105 mmol/L Normal 0 [facility] (81558) Comment: Performed By: #### MG1, PTT, PT, CBCDIF, PHOS, BMP ####[facility] [place] [phone] CO2 [Moles/Vol] 25 22-30 mmol/L Normal 05-02-2019 [facility] (75218) Comment: Performed By: #### MG1, PTT, PT, CBCDIF, PHOS, BMP ####[facility] [place], [place] [phone] Creatinine [Mass/Vol] 1.47 0.73-1.22 mg/dL High 05-02-[address] [facility] (48627) Comment: Performed By: #### MG1, PTT, PT, CBCDIF, PHOS, BMP ####[facility] [place] [phone] eGFR- Amer. 57 Normal 05-02-2019 [facility] (45230) Comment: Performed By: #### MG1, PTT, PT, CBCDIF, PHOS, BMP ####[facility] [address] [place], [place] [phone] GFR/1.73 sq M predicted among 47 . Normal 05-02-2019 [facility] non-blacks MDRD (S/P/Bld) [Vol (21204) rate/Area] Comment: Result Comment: eGFR (Estima pratik GFR) Units of measure: mL/min/1.73 meters squaredeGFR is derived from the reexpressed MDRD Study equation using the following parameters: serum creatinine, age, gender and race. The creatinine assay has been calibrated to be traceable to IDMS.An eGFR <60 mL/min/1.73m2 for >3 months is consistent with chronic kidney disease. Refer to KDOQI guidelines for clinical inte rpretation.In patients with unstable renal function, e.g. those with ac cowlitz kidney injury, the eGFR may not accurately reflect actual GFR. Performed By: #### MG1, PTT, PT, CBCDIF, PHOS, BMP ####[facility] [address] [place], [place] [phone] Glucose [Mass/Vol] 123 74-99 mg/dL High 05-02-2019 [facility] (16533) Comment: Result Comment: The [place] Diabetes Association (ADA) provides guidance for cutoff values for fastin g glucose and random glucose. The ADA defines fasting as no caloric intake for at least 8 hours. Fasting plasma glucose results between 100 to 125 m g/dL indicate increased risk for diabetes (prediabetes).Fasting plasma glucose results greater than or equal to 126 mg/dL meet the criteria for diagnosis of diabetes. In the absence of unequivocal hyperglycemia, r esults should be confirmed by repeat testing. In a patient with classic sympt oms of hyperglycemia or hyperglycemic crisis, random plasma glucose result s greater than or equal to 200 mg/dL meet the criteria for diagnosis of di abetes.Reference: Standards of Medical Care in Diabetes 2016, [place] Diab etes Association. Diabetes Care. 2016.39(Suppl 1). Performed By: #### MG1, PTT, PT, CBCDIF, PHOS, BMP ####[facility] [place], [place] [phone] Potassium [Moles/Vol] 4.2 3.7-5.1 mmol/L Normal 05-02-19 [facility] (27361) Comment: Performed By: #### MG1, PTT, PT, CBCDIF, PHOS, BMP ####[facility] [place], [place] [phone] Sodium [Moles/Vol] 136 136-144 mmol/L Normal 05-02-2019 [facility] (01379) Comment: Performed By: #### MG1, PTT, PT, CBCDIF, PHOS, BMP ####[facility] [place], [place] [phone] Urea nitrogen [Mass/Vol] 23 9-24 mg/dL Normal 05-01 [facility] (31631) Comment: Performed By: #### MG1, PTT, PT, CBCDIF, PHOS, BMP ####[facility] [place], [place] [phone] aptt on 2019-05-02 aPTT Coag (Bld) [Time] 26.5 23.0-32.[address] [facility] (79630) Comment: Result Comment: Unfractionat ed Heparin Therapeutic Ranges:Standard Heparin Nomogram: 53 to 78 seconds ( anti-Xa level of 0.3 to 0.7 U/ml)Low Dose/ACS Nomogram: 49 to 67 seconds ( anti-Xa level of 0.2 to 0.5 U/ml)Stroke Treatment Nomogram: 49 to 67 seconds (anti-Xa level of 0.2 to 0.5 U/ml)Note: The APTT therapeutic range h as been determined for the current lot of laboratory APTT reagent in u se throughout the [facility]. Performed By: #### MG1, PTT, PT, CBCDIF, PHOS, BMP ####[facility] [address] [place], [place] [phone] allied health on 06-05-14 [facility] Normal 05-02-2019 [facility] (82545) selenium, blood on 2019-05-01 Selenium, Blood 120.8 58.0-234.0 ug/L Normal 05-01-2019 [facility] (43272) Comment: Result Comment: This test wa s developed and its performance characteristics determined by [facility]'s [facility] [place] ([facility]) .It has not been cleared or approved by the FDA. [facility] is regulated under [employer] as qualified to perform high complexity testing.This test is used fo r clinical purposes. It should not be regarded as investigational or for re search. Performed By: #### CFAPRO ## ##ARUP [address] [place], [place] [phone]### # SELEN, TPNTE ####[facility] [address] [place], [place] [phone] protime on PT Coag (PPP) [Time] 1.0 0.9-1.[address] [facility] (55919) Comment: Result Comment: Vitamin K An tagonist (VKA) Therapeutic Range: INR 2 to 3 (Target INR of 2.5)Note: For patients treated with VKA drugs, such as warfarin, the [place] Col[employer] [place] of Chest Physicians 2012 Guideline recommends a therapeutic INR range of 2 to 3 (target INR of 2.5). This recommendation includes high-risk patients with antiphospholipid syndrome with previous arterial or venous thromboem bolism, current-generation mechanical or bioprosthetic aortic heart v alve replacement.Note: Patients with mechanical aortic valve replacement and additional risk factors for thromboembolic events (atrial fibrillation, previous thromboembolism, LV dysfunction, hypercoagulable conditions) or an older generation mechanical AVR (i.e., ball in-Cage) or any mechani veronika MVR should have a INR therapeutic range of 2.5 to 3.5 (target INR of 3) .Sawyer GH, et al. Chest 2012, 141:7S-47SKathy RA, et a owen. [facility] 2017, 70: 252-289 Performed By: #### BMP, CBCD IF, PHOS, MG1, PTT, PT ####[facility] [place], [place] [phone] PT Coag (PPP) [Time] 10.6 9.7-13.[address] [facility] (55715) Comment: Performed By: #### BMP, CBCD IF, PHOS, MG1, PTT, PT ####[facility] [place], [place] [phone] progress on 2019-04 PROGRESS Normal 05-01-2019 [facility] (97775) PROGRESS Normal 05-01-2019 [facility] (57015) phosphorus on 04-30 Phosphate [Mass/Vol] 3.9 2.7-4.8 mg/dL Normal 0 [facility] (03046) Comment: Performed By: #### BMP, CBCD IF, PHOS, MG1, PTT, PT ####[facility] [place], [place] [phone] parenteral ntr pgk on 2019-05-01 Chromium, Blood 1.0 0.2-0.6 ug/L High 05-01-2019 [facility] (17455) Comment: Result Comment: This test wa s developed and its performance characteristics determined by [facility]'s [facility] [place] ([facility]) .It has not been cleared or approved by the FDA. [facility] is regulated under [place] as qualified to perform high complexity testing.This test is used fo r clinical purposes. It should not be regarded as investigational or for re search. Performed By: #### CFAPRO ## ##ARUP [address] [place] [address] [phone]### # SELEN, TPNTE ####[facility] [place], [place] [phone] Copper 70 70-140 ug/dL Normal 05-01-2019 [facility] (91118) Comment: Result Comment: This test wa s developed and its performance characteristics determined by [facility] [place] ([facility]) .It has not been cleared or approved by the FDA. [facility] is regulated under [place] as qualified to perform high complexity testing.This test is used fo r clinical purposes. It should not be regarded as investigational or for re search. Performed By: #### CFAPRO ## ##ARUP [address] [place], [place] [phone]### # SELEN, TPNTE ####[facility] [place], [place] [phone] Manganese, Blood 6.1 4.4-15.2 ug/L Normal 05-01-2019 [facility] (74649) Comment: Result Comment: This test wa s developed and its performance characteristics determined by [facility] [place] ([facility]) .It has not been cleared or approved by the FDA. [facility] is regulated under [place] as qualified to perform high complexity testing.This test is used fo r clinical purposes. It should not be regarded as investigational or for re search. Performed By: #### CFAPRO ## ##ARUP [address] [place] [address] [phone]### # SELEN, TPNTE ####[facility] [place], [place] [phone] Zinc 41 55-150 ug/dL Low 05-01-2019 [facility] (79189) Comment: Result Comment: This test wa s developed and its performance characteristics determined by [facility] [place] ([facility]) .It has not been cleared or approved by the FDA. [facility] is regulated under [place] as qualified to perform high complexity testing.This test is used fo r clinical purposes. It should not be regarded as investigational or for re search. Performed By: #### CFAPRO ## ##ARUP [address] [place], [place] [phone]### # SELEN, TPNTE ####[facility] [place], [place] [phone] nursing prog on NURSING PROG Normal 05-01-2019 [facility] (45737) magnesium on 04-30 Magnesium [Mass/Vol] 2.1 1.7-2.3 mg/dL Normal 0 [facility] (36025) Comment: Performed By: #### BMP, CBCD IF, PHOS, MG1, PTT, PT ####[place] [address] [place], [place] [phone] fatty acids profile on 2019-05-01 a-Linolenic, C18:3w3 126 20-200 nmol/mL Normal 0 [facility] (74149) Comment: Performed By: #### CFAPRO ## ##LeBUZZUP [address] [place] [address] [phone]### # SELEN, TPNTE ####[place] [address] [place], [place] [phone] Arachidic Ac, C20:0 17 8-43 nmol/mL Normal 05-01-2019 [facility] (29197) Comment: Performed By: #### CFAPRO ## ##LeBUZZUP [address] [place] [address] [phone]### # SELEN, TPNTE ####[place] [address] [place], [place] [phone] Arachidonic, C20:4w6 813 870-8283 nmol/mL Normal 0 [facility] (67049) Comment: Performed By: #### CFAPRO ## ##ARUP [address] [place] [address] [phone]### # SELEN, TPNTE ####[place] [address] [place], [place] [phone] DHA, C22:6w3 103 45-365 nmol/mL Normal 05-01-2019 [facility] (47125) Comment: Performed By: #### CFAPRO ## ##ARUP [address] [place] [address] [phone]### # SELEN, TPNTE ####[facility] [place], [place] [phone] Docosenoic Ac, C22:1 6 1-10 nmol/mL Normal 0 [facility] (86449) Comment: Performed By: #### CFAPRO ## ##ARUP [address] [place] [address] [phone]### # SELEN, TPNTE ####[place] [address] [place], [place] [phone] DPA, C22:5w3 45 13-75 nmol/mL Normal 05-01-2019 [facility] (39069) Comment: Performed By: #### CFAPRO ## ##NEUP [address] [phone]### # SELEN, TPNTE ####[place] [address] [place], [place] [phone] DPA, C22:5w6 26 6-55 nmol/mL Normal 05-01-2019 [facility] (20536) Comment: Performed By: #### CFAPRO ## ##ARUP [address] [place] [address] [phone]### # SELEN, TPNTE ####[place] [address] [place], [place] [phone] DTA, C22:4w6 26 10-40 nmol/mL Normal 05-01-2019 [facility] (75989) Comment: Performed By: #### CFAPRO ## ##ARUP [address] [place] [address] [phone]### # SELEN, TPNTE ####[place] [address] [place], [place] [phone] EER Fatty Acids Prof SEE NOTE Normal 0 [facility] (25322) Comment: Result Comment: (NOTE)Access [facility] Enhanced Report using either link below:-Direct access: https: [email or web address] Username, Password: https:// Arden ReedUsername: [email or web address]*Password: [email or web address] by [facility] or[facility],[address] [place] [address] qjg.Bromium, Marcellus Harper MD, Lab. Director Performed By: #### CFAPRO ## ##ARUP [address] [place] [address] [phone]### # SELEN, TPNTE ####[place] [address] [place], [place] [phone] EPA, C20:5w3 27 8-130 nmol/mL Normal 05-01-2019 [facility] (23866) Comment: Performed By: #### CFAPRO ## ##ARUP [address] [place] [address] [phone]### # SELEN, TPNTE ####[place] [address] [place], [place] [phone] g-Linolenic, C18:3w6 69 10-120 nmol/mL Normal 0 [facility] (97901) Comment: Performed By: #### CFAPRO ## ##ARUP P[address] [place] [address] [phone]### # SELEN, TPNTE ####[place] [address] [place], [place] [phone] l-k-Cgkyhuym C20:3w6 65 45-340 nmol/mL Normal 0 [facility] (43164) Comment: Performed By: #### CFAPRO ## ##ARUP [address] [place] [address] [phone]### # SELEN, TPNTE ####[place] [address] [place], [place] [phone] Hexadecenoic,C16:1w9 40 14-95 nmol/mL Normal 0 [facility] (19733) Comment: Performed By: #### CFAPRO ## ##NEUP [address] [place] [address] [phone]### # SELEN, TPNTE ####[place] [address] [place], [place] [phone] Interpretation Normal Normal 05-01-2019 [facility] (54444) Comment: Result Comment: (NOTE)Normal fatty acid profile.INTERPRETIVE INFORMATION: Fatty Acids Profile, Essenti al Ser/PlasThis test does not screen for disorders of peroxisomalbiog enesis/function.Test developed and characteristics determined b [facility]. See Compliance Statement B: [employer]/ Performed By: #### CFAPRO ## ##NEUP [address] [place] [address] [phone]### # SELEN, TPNTE ####[place] [address] [place], [place] [phone] Lauric Acid, C12:0 5 1-200 nmol/mL Normal 05-01-2019 [facility] (20242) Comment: Performed By: #### CFAPRO ## ##NEUP [address] [place] [address] [phone]### # SELEN, TPNTE ####[place] [address] [place], [place] [phone] Linoleic Ac, C18:2w6 3162 0001-3359 nmol/mL Normal 0 [facility] (98757) Comment: Performed By: #### CFAPRO ## ##NEUP [address] [place] [address] [phone]### # SELEN, TPNTE ####[place] [address] [place], [place] [phone] Escalon Acid, C20:3w9 13 1-35 nmol/mL Normal 05-01-2019 [facility] (24819) Comment: Performed By: #### CFAPRO ## ##NEUP [address] [phone]### # SELEN, TPNTE ####[place] [address] [place], [place] [phone] Myristic Acid, C14:0 79 20-520 nmol/mL Normal 0 [facility] (66154) Comment: Performed By: #### CFAPRO ## ##[address] [phone]### # SELEN, TPNTE ####[place] [address] [place], [place] [phone] Nervonic Ac, C24:1w9 63 35-145 nmol/mL Normal 0 [facility] (78955) Comment: Performed By: #### CFAPRO ## ##NEUP [address] [phone]### # SELEN, TPNTE ####[place] [address] [place], [place] [phone] Oleic Acid, C18:1w9 3002 740-3900 nmol/mL Normal 05-01-2019 [facility] (50184) Comment: Performed By: #### CFAPRO ## ##NEUP [address] [phone]### # SELEN, TPNTE ####[place] [address] [place], [place] [phone] Palmitic Acid, C16:0 3102 6394-2984 nmol/mL Normal 0 [facility] (98389) Comment: Performed By: #### CFAPRO ## ##LeBUZZUP [address] [place] [address] [phone]### # SELEN, TPNTE ####[place] [address] [place], [place] [phone] Palmitoleic, C16:1w7 222 35-580 nmol/mL Normal 0 [facility] (82401) Comment: Performed By: #### CFAPRO ## ##NEUP [address] [phone]### # SELEN, TPNTE ####[place] [address], [place] [phone] Stearic Acid, C18:0 263 961-2918 nmol/mL Normal 05-01-2019 [facility] (16238) Comment: Performed By: #### CFAPRO ## ##NEUP [address] [phone]### # SELEN, TPNTE ####[place] [address] [place], [place] [phone] Total Fatty Acids 11.7 4.5-15.0 mmol/L Normal 05-01-2019 [facility] (41239) Comment: Performed By: #### CFAPRO ## ##NEUP [address] [phone]### # SELEN, TPNTE ####[place] [address], [place] [phone] Total Monounsatur Ac 3.6 0.9-4.7 mmol/L Normal 0 [facility] (04247) Comment: Performed By: #### CFAPRO ## ##ARUP [address] [phone]### # SELEN, TPNTE ####[place] [address] [place], [place] [phone] Total Polyunsatur Ac 4.3 2.1-6.2 mmol/L Normal 0 [facility] (89071) Comment: Performed By: #### CFAPRO ## ##ARUP [address] [place] [address] [phone]### # SELEN, TPNTE ####[place] [address] [place], [place] [phone] Total Saturated Acid 3.8 1.5-5.3 mmol/L Normal 0 [facility] (60641) Comment: Performed By: #### CFAPRO ## ##ARUP [address] [place] [address] [phone]### # SELEN, TPNTE ####[place] [address] [place], [place] [phone] Total w3 0.30 0.12-0.55 mmol/L Normal 05-01-2019 [facility] (95982) Comment: Performed By: #### CFAPRO ## ##ARUP [address] [place] [address] [phone]### # SELEN, TPNTE ####[place] [address] [place], [place] [phone] Total w6 4.0 1.8-5.7 mmol/L Normal 05-01-2019 [facility] (72660) Comment: Performed By: #### CFAPRO ## ##ARUP [address] [place] [address] [phone]### # SELEN, TPNTE ####[place] [address] [place], [place] [phone] TrieneTetraene Ratio 0.020 0.004-0.[address] [facility] (09556) Comment: Performed By: #### CFAPRO ## ##ARUP [address] [place] [address] [phone]### # SELEN, TPNTE ####[place] [address] [place], [place] [phone] Vaccenic Ac, C18:1w7 294 50-250 nmol/mL High 0 [facility] (57389) Comment: Performed By: #### CFAPRO ## ##CYNTHIA [address] [place] [address] [phone]### # SELEN, TPNTE ####[place] [address] [place] [phone] cbc and differential on 2019-05-01 Abs Baso 0.00 <0.11 k/uL Normal 05-01-2019 [facility] (87721) Comment: Performed By: #### BMP, CBCD IF, PHOS, MG1, PTT, PT ####[place] [address] [place] [phone] Abs Zapata 0.20 <0.87 k/uL Normal 05-01-2019 [facility] (35744) Comment: Performed By: #### BMP, CBCD IF, PHOS, MG1, PTT, PT ####[place] [address] [place] [phone] Abs Neut 1.62 1.45-7.50 k/uL Normal 05-01-2019 [facility] (55826) Comment: Performed By: #### BMP, CBCD IF, PHOS, MG1, PTT, PT ####[place] [address] [place] [phone] Absolute nRBC 0.03 <0.01 k/uL High 05-01-2019 [facility] (35575) Comment: Performed By: #### BMP, CBCD IF, PHOS, MG1, PTT, PT ####[place] [address] [place], [place] [phone] ANC(includeSEG+BAND) 1.62 k/uL Normal 0 [facility] (56351) Comment: Performed By: #### BMP, CBCD IF, PHOS, MG1, PTT, PT ####[facility] [address] [place], [place] [phone] Anisocytosis Ql (Bld) Present Normal 05-01-19 [facility] (01336) Comment: Performed By: #### BMP, CBCD IF, PHOS, MG1, PTT, PT ####[facility] [address] [place], [place] [phone] Basophils/100 WBC (Bld) 0.0 % Normal 2019 [facility] (00448) Comment: Performed By: #### BMP, CBCD IF, PHOS, MG1, PTT, PT ####[place] [address] [place], [place] [phone] DTYPE Manual Diff Normal 05-01-2019 [facility] (88388) Comment: Performed By: #### BMP, CBCD IF, PHOS, MG1, PTT, PT ####[facility] [place], [place] [phone] Eosinophils (Bld) [#/Vol] 0.08 <0.46 k/uL Normal 04-17 [facility] (92424) Comment: Performed By: #### BMP, CBCD IF, PHOS, MG1, PTT, PT ####[facility] [place] [phone] Eosinophils/100 WBC (Bld) 3.0 % Normal 04-17 [facility] (03605) Comment: Performed By: #### BMP, CBCD IF, PHOS, MG1, PTT, PT ####[facility] [address] [place], [place] [phone] Erythrocyte distribution 16.6 11.5-15.0 % High 04-30 [facility] width (RBC) [Ratio] [place] (90094) Comment: Performed By: #### BMP, CBCD IF, PHOS, MG1, PTT, PT ####[facility] [place], [place] [phone] Hematocrit (Bld) [Volume 24.2 39.0-51.0 % Low 04-30 [facility] fraction] (55512) Comment: Performed By: #### BMP, CBCD IF, PHOS, MG1, PTT, PT ####[place] [address] [place], [place] [phone] Hemoglobin (Bld) 8.1 13.0-17.0 g/dL Low 05-01-2019 [facility] [Mass/Vol] [place] (79494) Comment: Performed By: #### BMP, CBCD IF, PHOS, MG1, PTT, PT ####[place] [address] [place], [place] [phone] Lymphocytes (Bld) [#/Vol] 0.53 1.00-4.00 k/uL Low 04-17 [facility] (89096) Comment: Performed By: #### BMP, CBCD IF, PHOS, MG1, PTT, PT ####[place] [address] [place], [place] [phone] Lymphocytes/100 WBC (Bld) 21.0 % Normal 04-17 [facility] (86672) Comment: Performed By: #### BMP, CBCD IF, PHOS, MG1, PTT, PT ####[place] [address] [place], [place] [phone] MCH (RBC) [Entitic mass] 31.5 26.0-34.0 pG Normal 04-30 [facility] (37601) Comment: Performed By: #### BMP, CBCD IF, PHOS, MG1, PTT, PT ####[place] [address] [place], [place] [phone] MCHC (RBC) [Mass/Vol] 33.5 30.5-36.0 g/dL Normal 05-01-19 [facility] (06537) Comment: Performed By: #### BMP, CBCD IF, PHOS, MG1, PTT, PT ####[facility] [address] [place], [place] [phone] MCV (RBC) [Entitic vol] 94.2 80.0-100.0 fL Normal 04-30 [facility] (71717) Comment: Performed By: #### BMP, CBCD IF, PHOS, MG1, PTT, PT ####[facility] [place], [place] [phone] Monocytes/100 WBC (Bld) 8.0 % Normal 2019 [facility] (47068) Comment: Performed By: #### BMP, CBCD IF, PHOS, MG1, PTT, PT ####[facility] [place], [place] [phone] Myelo% 3.0 % Normal 05-01-2019 [facility] (79207) Comment: Performed By: #### BMP, CBCD IF, PHOS, MG1, PTT, PT ####[facility] [address] [place], [place] [phone] Neutrophils/100 WBC (Bld) 64.0 % Normal 04-17 [facility] (56283) Comment: Performed By: #### BMP, CBCD IF, PHOS, MG1, PTT, PT ####[facility] [address] [place], [place] [phone] NRBCs 1 0 /100 WBC High 05-01-2019 [facility] (00965) Comment: Performed By: #### BMP, CBCD IF, PHOS, MG1, PTT, PT ####[facility] [address] [place], [place] [phone] Ovalocytes Few Normal 05-01-2019 [facility] (03294) Comment: Performed By: #### BMP, CBCD IF, PHOS, MG1, PTT, PT ####[facility] [place], [place] [phone] Platelet mean volume 12.1 9.0-12.7 fL Normal 0 [facility] (Bld) [Entitic vol] [place] (89912) Comment: Performed By: #### BMP, CBCD IF, PHOS, MG1, PTT, PT ####[facility] [place], [place] [phone] Platelets (Bld) [#/Vol] 92 150-400 k/uL Low 2019 [facility] (30727) Comment: Result Comment: No clot dete cted. Performed By: #### BMP, CBCD IF, PHOS, MG1, PTT, PT ####[place] [address] [place], [place] [phone] Platelets (Bld) Platelet estimate Normal 2019 [facility] [#/Vol] decreased [place] (77486) Comment: Performed By: #### BMP, CBCD IF, PHOS, MG1, PTT, PT ####[place] [address] [place], [place] [phone] Polychromasia Slight Normal 05-01-2019 [facility] (20668) Comment: Performed By: #### BMP, CBCD IF, PHOS, MG1, PTT, PT ####[place] [address] [place], [place] [phone] Promyl% 1.0 % Normal 05-01-2019 [facility] (10403) Comment: Performed By: #### BMP, CBCD IF, PHOS, MG1, PTT, PT ####[place] [address] [place], [place] [phone] RBC (Bld) [#/Vol] 2.57 4.20-6.00 m/uL Low 05-01-2019 [facility] (50483) Comment: Performed By: #### BMP, CBCD IF, PHOS, MG1, PTT, PT ####[facility] [place], [place] [phone] TSH Qn Present Normal 05-01-2019 [facility] (64161) Comment: Performed By: #### BMP, CBCD IF, PHOS, MG1, PTT, PT ####[facility] [place], [place] [phone] WBC (Bld) [#/Vol] 2.53 3.70-11.00 k/uL Low 05-01-2019 [facility] (98843) Comment: Performed By: #### BMP, CBCD IF, PHOS, MG1, PTT, PT ####[facility] [place], [place] [phone] basic metabolic panl on 2019-05-01 Anion gap [Moles/Vol] 11 9-18 mmol/L Normal 05-01-[address] [facility] (75331) Comment: Performed By: #### BMP, CBCD IF, PHOS, MG1, PTT, PT ####[facility] [place], [place] [phone] Calcium [Mass/Vol] 8.5 8.5-10.2 mg/dL Normal 05-01-2019 [facility] (76233) Comment: Performed By: #### BMP, CBCD IF, PHOS, MG1, PTT, PT ####[facility] [address] [place], [place] [phone] Chloride [Moles/Vol] 96 97-105 mmol/L Low 0 [facility] (29921) Comment: Performed By: #### BMP, CBCD IF, PHOS, MG1, PTT, PT ####[facility] [place], [place] [phone] CO2 [Moles/Vol] 29 22-30 mmol/L Normal 05-01-2019 [facility] (44368) Comment: Performed By: #### BMP, CBCD IF, PHOS, MG1, PTT, PT ####[facility] [address] [place], [place] [phone] Creatinine [Mass/Vol] 1.49 0.73-1.22 mg/dL High 05-01-[address] [facility] (60131) Comment: Performed By: #### BMP, CBCD IF, PHOS, MG1, PTT, PT ####[facility] [address] [place], [place] [phone] eGFR- Amer. 56 Normal 05-01-2019 [facility] (45412) Comment: Performed By: #### BMP, CBCD IF, PHOS, MG1, PTT, PT ####[facility] [address] [place], [place] [phone] GFR/1.73 sq M predicted among 47 . Normal 05-01-2019 [facility] non-blacks MDRD (S/P/Bld) [Vol (07107) rate/Area] Comment: Result Comment: eGFR (Estima pratik GFR) Units of measure: mL/min/1.73 meters squaredeGFR is derived from the reexpressed MDRD Study equation using the following parameters: serum creatinine, age, gender and race. The creatinine assay has been calibrated to be traceable to IDMS.An eGFR <60 mL/min/1.73m2 for >3 months is consistent with chronic kidney disease. Refer to KDOQI guidelines for clinical inte rpretation.In patients with unstable renal function, e.g. those with ac cowlitz kidney injury, the eGFR may not accurately reflect actual GFR. Performed By: #### BMP, CBCD IF, PHOS, MG1, PTT, PT ####[facility] [address] [place], [place] [phone] Glucose [Mass/Vol] 139 74-99 mg/dL High 05-01-2019 [facility] (08941) Comment: Result Comment: The [place] [employer] (ADA) provides guidance for cutoff values for fastin g glucose and random glucose. The ADA defines fasting as no caloric intake for at least 8 hours. Fasting plasma glucose results between 100 to 125 m g/dL indicate increased risk for diabetes (prediabetes).Fasting plasma glucose results greater than or equal to 126 mg/dL meet the criteria for diagnosis of diabetes. In the absence of unequivocal hyperglycemia, r esults should be confirmed by repeat testing. In a patient with classic sympt oms of hyperglycemia or hyperglycemic crisis, random plasma glucose result s greater than or equal to 200 mg/dL meet the criteria for diagnosis of di abetes.Reference: Standards of Medical Care in Diabetes 2016, [place] Diab etes Association. Diabetes Care. 2016.39(Suppl 1). Performed By: #### BMP, CBCD IF, PHOS, MG1, PTT, PT ####[facility] [place], [place] [phone] Potassium [Moles/Vol] 3.4 3.7-5.1 mmol/L Low 05-01-19 [facility] (70965) Comment: Performed By: #### BMP, CBCD IF, PHOS, MG1, PTT, PT ####[facility] [address] [place], [place] [phone] Sodium [Moles/Vol] 136 136-144 mmol/L Normal 05-01-2019 [facility] (72179) Comment: Performed By: #### BMP, CBCD IF, PHOS, MG1, PTT, PT ####[facility] [place], [place] [phone] Urea nitrogen [Mass/Vol] 17 9-24 mg/dL Normal 04-30 [facility] (69205) Comment: Performed By: #### BMP, CBCD IF, PHOS, MG1, PTT, PT ####[facility] [place], [place] [phone] aptt on 2019-05-01 aPTT Coag (Bld) [Time] 24.8 23.0-32.4 sec Normal 04-30- 020 [facility] (33529) Comment: Result Comment: Unfractionat ed Heparin Therapeutic Ranges:Standard Heparin Nomogram: 53 to 78 seconds ( anti-Xa level of 0.3 to 0.7 U/ml)Low Dose/ACS Nomogram: 49 to 67 seconds ( anti-Xa level of 0.2 to 0.5 U/ml)Stroke Treatment Nomogram: 49 to 67 seconds (anti-Xa level of 0.2 to 0.5 U/ml)Note: The APTT therapeutic range h as been determined for the current lot of laboratory APTT reagent in u se throughout the [facility]. Performed By: #### BMP, CBCD IF, PHOS, MG1, PTT, PT ####[facility] [address], [place] [phone] pt ed on 2019-04-30 PT ED Normal 04-30-2019 [facility] (57478) protime on PT Coag (PPP) [Time] 1.0 0.9-1.[address] [facility] (48295) Comment: Result Comment: Vitamin K An tagonist (VKA) Therapeutic Range: INR 2 to 3 (Target INR of 2.5)Note: For patients treated with VKA drugs, such as warfarin, the [place] [employer] of Chest Physicians 2012 Guideline recommends a therapeutic INR range of 2 to 3 (target INR of 2.5). This recommendation includes high-risk patients with antiphospholipid syndrome with previous arterial or venous thromboem bolism, current-generation mechanical or bioprosthetic aortic heart v alve replacement.Note: Patients with mechanical aortic valve replacement and additional risk factors for thromboembolic events (atrial fibrillation, previous thromboembolism, LV dysfunction, hypercoagulable conditions) or an older generation mechanical AVR (i.e., ball in-Cage) or any mechani veronika MVR should have a INR therapeutic range of 2.5 to 3.5 (target INR of 3) .Sawyer GH, et al. Chest 2012, 141:7S-47SKathy RA, et flo medrano. [facility] 2017, 70: 252-289 Performed By: #### CBCDIF, H FP, PREALB, PHOS, MG1, CRP, BMP, PTT, PT ####[facility] Laborat hazoc[address]CH[place], [place] [phone] PT Coag (PPP) [Time] 10.7 9.7-13.[address] [facility] (97386) Comment: Performed By: #### CBCDIF, H FP, PREALB, PHOS, MG1, CRP, BMP, PTT, PT ####[facility] Laborat [address], [place] [phone] progress on 2019-04 PROGRESS Normal 04-30-2019 [facility] (09779) prealbumin on 04-29 Prealbumin [Mass/Vol] 8 17-36 mg/dL Low 04-30-[address] [facility] (29076) Comment: Performed By: #### CBCDIF, H FP, PREALB, PHOS, MG1, CRP, BMP, PTT, PT ####[facility] Laborat [address], [place] [phone] phosphorus on 04-29 Phosphate [Mass/Vol] 3.3 2.7-4.8 mg/dL Normal 0 [facility] (20951) Comment: Performed By: #### CBCDIF, H FP, PREALB, PHOS, MG1, CRP, BMP, PTT, PT ####[facility] Laborat [address] [place], [place] [phone] nursing prog on NURSING PROG Normal 04-30-2019 [facility] (33822) magnesium on 04-29 Magnesium [Mass/Vol] 2.0 1.7-2.3 mg/dL Normal 0 [facility] (96273) Comment: Performed By: #### CBCDIF, H FP, PREALB, PHOS, MG1, CRP, BMP, PTT, PT ####[facility] Laborat [address]cr[address], [place] [phone] hepatic functn panel on 2019-04-30 Albumin [Mass/Vol] 3.0 3.9-4.9 g/dL Low 04-30-2019 [facility] (34557) Comment: Performed By: #### CBCDIF, H FP, PREALB, PHOS, MG1, CRP, BMP, PTT, PT ####[facility] Laborat [address]ClevelCe[place], [place] [phone] ALP [Catalytic activity/Vol] 58 38-113 U/L Normal 0 04-30-2019 [facility] (96666) Comment: Performed By: #### CBCDIF, H FP, PREALB, PHOS, MG1, CRP, BMP, PTT, PT ####[facility] Laborat [address]oho[address] AveClevelCe[place], [place] [phone] ALT [Catalytic activity/Vol] 8 10-54 U/L Low 0 04-30-2019 [facility] (52600) Comment: Performed By: #### CBCDIF, H FP, PREALB, PHOS, MG1, CRP, BMP, PTT, PT ####[facility] Laborat xponc[address] AveClevelJohn [place] [phone] AST [Catalytic activity/Vol] 16 14-40 U/L Normal 0 04-30-2019 [facility] (15729) Comment: Performed By: #### CBCDIF, H FP, PREALB, PHOS, MG1, CRP, BMP, PTT, PT ####[facility] Laborat [address], [place] [phone] Bilirubin [Mass/Vol] 0.5 0.2-1.3 mg/dL Normal 0 [facility] (45398) Comment: Performed By: #### CBCDIF, H FP, PREALB, PHOS, MG1, CRP, BMP, PTT, PT ####[facility] Laborat flqur[address], [place] [phone] Bilirubin,Conjugated <0.2 <0.[address] [facility] (54818) Comment: Performed By: #### CBCDIF, H FP, PREALB, PHOS, MG1, CRP, BMP, PTT, PT ####[facility] Laborat [address]CH[place], [place] [phone] Protein [Mass/Vol] 4.9 6.3-8.0 g/dL Low 04-30-2019 [facility] (71458) Comment: Performed By: #### CBCDIF, H FP, PREALB, PHOS, MG1, CRP, BMP, PTT, PT ####[facility] Laborat [address]ibv[address], [place] [phone] consult prog on CONSULT PROG Normal 04-30-2019 [facility] (79862) cnpn on 2019-04-30 CNPN Normal 04-30-2019 [facility] (19643) cbc and differential on 2019-04-30 Abs Baso 0.07 <0.11 k/uL Normal 04-30-2019 [facility] (17486) Comment: Performed By: #### CBCDIF, H FP, PREALB, PHOS, MG1, CRP, BMP, PTT, PT ####[facility] Laborat [address]znje[address]CH[place], [place] [phone] Abs Zapata 0.07 <0.87 k/uL Normal 04-30-2019 [facility] (60708) Comment: Performed By: #### CBCDIF, H FP, PREALB, PHOS, MG1, CRP, BMP, PTT, PT ####[facility] Laborat aeyzy[address]CHam[place], [place] [phone] Abs Neut 1.98 1.45-7.50 k/uL Normal 04-30-2019 [facility] (16013) Comment: Performed By: #### CBCDIF, H FP, PREALB, PHOS, MG1, CRP, BMP, PTT, PT ####[facility] Laborat [address]baf[address], [place] [phone] Anisocytosis Ql (Bld) Present Normal 04-30-19 [facility] (43538) Comment: Performed By: #### CBCDIF, H FP, PREALB, PHOS, MG1, CRP, BMP, PTT, PT ####[facility] Laborat cphxy[address]C[place], [place] [phone] Basophils/100 WBC (Bld) 2.7 % Normal 2019 [facility] (59970) Comment: Performed By: #### CBCDIF, H FP, PREALB, PHOS, MG1, CRP, BMP, PTT, PT ####[facility] Laborat [address]zuuj[address], [place] [phone] DTYPE Manual Diff Normal 04-30-2019 [facility] (27720) Comment: Performed By: #### CBCDIF, H FP, PREALB, PHOS, MG1, CRP, BMP, PTT, PT ####[facility] Laborat yebtz[address] AveClevelCe[place], [place] [phone] Eosinophils (Bld) [#/Vol] 0.07 <0.46 k/uL Normal 04-17 [facility] (70927) Comment: Performed By: #### CBCDIF, H FP, PREALB, PHOS, MG1, CRP, BMP, PTT, PT ####[facility] Laborat wxehm[address]C[place], [place] [phone] Eosinophils/100 WBC (Bld) 2.7 % Normal 04-17 [facility] (76390) Comment: Performed By: #### CBCDIF, H FP, PREALB, PHOS, MG1, CRP, BMP, PTT, PT ####[facility] Laborat [address]fnl[address]ClevelandE[place], [place] [phone] Erythrocyte distribution 16.6 11.5-15.0 % High 04-29 [facility] width (RBC) [Ratio] [place] (95145) Comment: Performed By: #### CBCDIF, H FP, PREALB, PHOS, MG1, CRP, BMP, PTT, PT ####[facility] Laborat lhtzj[address]C[place], [place] [phone] Hematocrit (Bld) [Volume 24.3 39.0-51.0 % Low 04-29 [facility] fraction] (98898) Comment: Performed By: #### CBCDIF, H FP, PREALB, PHOS, MG1, CRP, BMP, PTT, PT ####[facility] Laborat [address]fu[address]C[place], [place] [phone] Hemoglobin (Bld) 8.1 13.0-17.0 g/dL Low 04-30-2019 [facility] [Mass/Vol] [place] (60707) Comment: Performed By: #### CBCDIF, H FP, PREALB, PHOS, MG1, CRP, BMP, PTT, PT ####[facility] Laborat [address]dfur[address]CH[place], [place] [phone] Lymphocytes (Bld) [#/Vol] 0.43 1.00-4.00 k/uL Low 04-17 [facility] (49029) Comment: Performed By: #### CBCDIF, H FP, PREALB, PHOS, MG1, CRP, BMP, PTT, PT ####[facility] Laborat wyiic[address]C[place], [place] [phone] Lymphocytes/100 WBC (Bld) 16.1 % Normal 04-17 [facility] (61417) Comment: Performed By: #### CBCDIF, H FP, PREALB, PHOS, MG1, CRP, BMP, PTT, PT ####[facility] Laborat komsc[address]C[place], [place] [phone] MCH (RBC) [Entitic mass] 31.0 26.0-34.0 pG Normal 04-29 [facility] (26468) Comment: Performed By: #### CBCDIF, H FP, PREALB, PHOS, MG1, CRP, BMP, PTT, PT ####[facility] Laborat dzdcr[address]C[place], [place] [phone] MCHC (RBC) [Mass/Vol] 33.3 30.5-36.0 g/dL Normal 04-30-[address] [facility] ([id number]) Comment: Performed By: #### CBCDIF, H FP, PREALB, PHOS, MG1, CRP, BMP, PTT, PT ####[facility] [id number], [place] [phone] MCV (RBC) [Entitic vol] 93.1 80.0-100.0 fL Normal 04-29 [facility] ([id number]) Comment: Performed By: #### CBCDIF, H FP, PREALB, PHOS, MG1, CRP, BMP, PTT, PT ####[facility] [id number], [place] [phone] Monocytes/100 WBC (Bld) 2.7 % Normal 2019 [facility] ([id number]) Comment: Performed By: #### CBCDIF, H FP, PREALB, PHOS, MG1, CRP, BMP, PTT, PT ####[facility] [id number], [place] [phone] Myelo% 0.9 % Normal 04-30-2019 [facility] ([id number]) Comment: Performed By: #### CBCDIF, H FP, PREALB, PHOS, MG1, CRP, BMP, PTT, PT ####[facility] l[address]el[address], [place] [phone] Neutrophils/100 WBC (Bld) 74.9 % Normal 04-17 [facility] (61452) Comment: Performed By: #### CBCDIF, H FP, PREALB, PHOS, MG1, CRP, BMP, PTT, PT ####[facility] qcejm[address], [place] [phone] NRBCs 1 0 /100 WBC High 04-30-2019 [facility] (12101) Comment: Performed By: #### CBCDIF, H FP, PREALB, PHOS, MG1, CRP, BMP, PTT, PT ####[facility] jtqkw[address]C[place], [place] [phone] Platelet mean volume 12.6 9.0-12.7 fL Normal 0 [facility] (d) [Entitic vol] [place] (31074) Comment: Performed By: #### CBCDIF, H FP, PREALB, PHOS, MG1, CRP, BMP, PTT, PT ####[facility] fuidk[address], [place] [phone] Platelets (d) Platelet estimate Normal 2019 [facility] [#/Vol] decreased [place] (73563) Comment: Performed By: #### CBCDIF, H FP, PREALB, PHOS, MG1, CRP, BMP, PTT, PT ####[facility] oipui[address] AveCHamilton, [place] [phone] Platelets (d) [#/Vol] 84 150-400 k/uL Low 2019 [facility] (67771) Comment: Result Comment: No clot dete cted. Performed By: #### CBCDIF, H FP, PREALB, PHOS, MG1, CRP, BMP, PTT, PT ####[facility] yktel[address]C[place], [place] [phone] Polychromasia Slight Normal 04-30-2019 [facility] (86984) Comment: Performed By: #### CBCDIF, H FP, PREALB, PHOS, MG1, CRP, BMP, PTT, PT ####[facility] xmenz[address]CHam[place], [place] [phone] RBC (Bld) [#/Vol] 2.61 4.20-6.00 m/uL Low 04-30-2019 [facility] (19410) Comment: Performed By: #### CBCDIF, H FP, PREALB, PHOS, MG1, CRP, BMP, PTT, PT ####[facility] b[address]ih[address], [place] [phone] TSH Qn Present Normal 04-30-2019 [facility] (97184) Comment: Performed By: #### CBCDIF, H FP, PREALB, PHOS, MG1, CRP, BMP, PTT, PT ####[facility] [place], [place] [phone] WBC (Bld) [#/Vol] 2.65 3.70-11.00 k/uL Low 04-30-2019 [facility] (88149) Comment: Performed By: #### CBCDIF, H FP, PREALB, PHOS, MG1, CRP, BMP, PTT, PT ####[facility] [place], [place] [phone] c-reactive protein on 2019-04-30 CRP [Mass/Vol] 13.1 <0.9 mg/dL High 04-30-2019 [facility] (51270) Comment: Performed By: #### CBCDIF, H FP, PREALB, PHOS, MG1, CRP, BMP, PTT, PT ####[facility] [address] [place], [place] [phone] basic metabolic panl on 2019-04-30 Anion gap [Moles/Vol] 12 9-18 mmol/L Normal 04-30-[address] [facility] (99074) Comment: Performed By: #### CBCDIF, H FP, PREALB, PHOS, MG1, CRP, BMP, PTT, PT ####[facility] eyjpx[address]CHam[place], [place] [phone] Calcium [Mass/Vol] 8.4 8.5-10.2 mg/dL Low 04-30-2019 [facility] (39061) Comment: Performed By: #### CBCDIF, H FP, PREALB, PHOS, MG1, CRP, BMP, PTT, PT ####[facility] bxsfi[address] AveCHam[place], [place] [phone] Chloride [Moles/Vol] 95 97-105 mmol/L Low 0 [facility] (13607) Comment: Performed By: #### CBCDIF, H FP, PREALB, PHOS, MG1, CRP, BMP, PTT, PT ####[facility] lhzwp6[address]CH[place], [place] [phone] CO2 [Moles/Vol] 28 22-30 mmol/L Normal 04-30-2019 [facility] (01133) Comment: Performed By: #### CBCDIF, H FP, PREALB, PHOS, MG1, CRP, BMP, PTT, PT ####[facility] hvpna[address], [place] [phone] Creatinine [Mass/Vol] 1.43 0.73-1.22 mg/dL High 04-30-[address] [facility] (04544) Comment: Performed By: #### CBCDIF, H FP, PREALB, PHOS, MG1, CRP, BMP, PTT, PT ####[facility] vosqw[address] AveCHam[place], [place] [phone] eGFR- Amer. 59 Normal 04-30-2019 [facility] (67935) Comment: Performed By: #### CBCDIF, H FP, PREALB, PHOS, MG1, CRP, BMP, PTT, PT ####[facility] brqzo[address]Cclevel[address] clinicand, [place] [phone] GFR/1.73 sq M predicted among 49 . Normal 04-30-2019 [facility] non-blacks MDRD (S/P/Bld) [Vol (99629) rate/Area] Comment: Result Comment: eGFR (Estima pratik GFR) Units of measure: mL/min/1.73 meters squaredeGFR is derived from the reexpressed MDRD Study equation using the following parameters: serum creatinine, age, gender and race. The creatinine assay has been calibrated to be traceable to IDMS.An eGFR <60 mL/min/1.73m2 for >3 months is consistent with chronic kidney disease. Refer to KDOQI guidelines for clinical inte rpretation.In patients with unstable renal function, e.g. those with ac cowlitz kidney injury, the eGFR may not accurately reflect actual GFR. Performed By: #### CBCDIF, H FP, PREALB, PHOS, MG1, CRP, BMP, PTT, PT ####[facility] [place], [place] [phone] Glucose [Mass/Vol] 126 74-99 mg/dL High 04-30-2019 [facility] (50416) Comment: Result Comment: The [place] Diabetes Association (ADA) provides guidance for cutoff values for fastin g glucose and random glucose. The ADA defines fasting as no caloric intake for at least 8 hours. Fasting plasma glucose results between 100 to 125 m g/dL indicate increased risk for diabetes (prediabetes).Fasting plasma glucose results greater than or equal to 126 mg/dL meet the criteria for diagnosis of diabetes. In the absence of unequivocal hyperglycemia, r esults should be confirmed by repeat testing. In a patient with classic sympt oms of hyperglycemia or hyperglycemic crisis, random plasma glucose result s greater than or equal to 200 mg/dL meet the criteria for diagnosis of di abetes.Reference: Standards of Medical Care in Diabetes 2016, [place] Diab etes Association. Diabetes Care. 2016.39(Suppl 1). Performed By: #### CBCDIF, H FP, PREALB, PHOS, MG1, CRP, BMP, PTT, PT ####[facility] [place], [place] [phone] Potassium [Moles/Vol] 3.5 3.7-5.1 mmol/L Low 04-30-[address] [facility] (04691) Comment: Performed By: #### CBCDIF, H FP, PREALB, PHOS, MG1, CRP, BMP, PTT, PT ####[facility] [place], [place] [phone] Sodium [Moles/Vol] 135 136-144 mmol/L Low 04-30-2019 [facility] (55346) Comment: Performed By: #### CBCDIF, H FP, PREALB, PHOS, MG1, CRP, BMP, PTT, PT ####[facility] [place], [place] [phone] Urea nitrogen [Mass/Vol] 15 9-24 mg/dL Normal 04-29 [facility] (50579) Comment: Performed By: #### CBCDIF, H FP, PREALB, PHOS, MG1, CRP, BMP, PTT, PT ####[facility] [place], [place] [phone] aptt on 2019-04-30 aPTT Coag (Bld) [Time] 26.6 23.0-32.[address] [facility] (75777) Comment: Result Comment: Unfractionat ed Heparin Therapeutic Ranges:Standard Heparin Nomogram: 53 to 78 seconds ( anti-Xa level of 0.3 to 0.7 U/ml)Low Dose/ACS Nomogram: 49 to 67 seconds ( anti-Xa level of 0.2 to 0.5 U/ml)Stroke Treatment Nomogram: 49 to 67 seconds (anti-Xa level of 0.2 to 0.5 U/ml)Note: The APTT therapeutic range h as been determined for the current lot of laboratory APTT reagent in u se throughout the [facility]. Performed By: #### CBCDIF, H FP, PREALB, PHOS, MG1, CRP, BMP, PTT, PT ####[facility] cbxgz[address]CHam[place], [place] [phone] allied health on 06-05-12 [facility] Normal 04-30-2019 Shadyheidi parkinson [facility] (30736) therapy nt on 04-28 THERAPY NT Normal 04-29-2019 [facility] (23431) pt ed on 2019-04-29 PT ED Normal 04-29-2019 [facility] (53318) protime on PT Coag (PPP) [Time] 1.1 0.9-1.[address] [facility] (22757) Comment: Result Comment: Vitamin K An tagonist (VKA) Therapeutic Range: INR 2 to 3 (Target INR of 2.5)Note: For patients treated with VKA drugs, such as warfarin, the [place] [employer] Chest Physicians 2012 Guideline recommends a therapeutic INR range of 2 to 3 (target INR of 2.5). This recommendation includes high-risk patients with antiphospholipid syndrome with previous arterial or venous thromboem bolism, current-generation mechanical or bioprosthetic aortic heart v alve replacement.Note: Patients with mechanical aortic valve replacement and additional risk factors for thromboembolic events (atrial fibrillation, previous thromboembolism, LV dysfunction, hypercoagulable conditions) or an older generation mechanical AVR (i.e., ball in-Cage) or any mechani veronika MVR should have a INR therapeutic range of 2.5 to 3.5 (target INR of 3) .Sawyer GH, et al. Chest 2012, 141:7S-47SNishimura RA, et a l. [facility] 2017, 70: 252-289 Performed By: #### BMP, PHOS , MG1, CBCDIF, PTT, PT ####[facility] [address]mhf[address]C [place], [place] [phone] PT Coag (PPP) [Time] 11.3 9.7-13.[address] [facility] (46504) Comment: Performed By: #### BMP, PHOS , MG1, CBCDIF, PTT, PT ####[place] [address] [place], [place] [phone] progress on 2019-04 PROGRESS Normal 04-29-2019 [facility] (49859) phosphorus on 04-28 Phosphate [Mass/Vol] 3.2 2.7-4.8 mg/dL Normal 0 [facility] (01991) Comment: Performed By: #### BMP, PHOS , MG1 ####[place] [address] [phone] Phosphate [Mass/Vol] 2.6 2.7-4.8 mg/dL Low 0 [facility] (67315) Comment: Performed By: #### BMP, PHOS , MG1, CBCDIF, PTT, PT ####[address] [place], [place] [phone] magnesium on 04-28 Magnesium [Mass/Vol] 1.9 1.7-2.3 mg/dL Normal 0 [facility] (65184) Comment: Performed By: #### BMP, PHOS , MG1 ####[place] [address] [place] [address] [phone] Magnesium [Mass/Vol] 1.8 1.7-2.3 mg/dL Normal 0 [facility] (05178) Comment: Performed By: #### BMP, PHOS , MG1, CBCDIF, PTT, PT ####[place] [address] [place], [place] [phone] ir abdullahi single lumen on 2019-04-29 IR ABDULLAHI SINGLE LUMEN Normal 2019 [facility] (22824) consult prog on CONSULT PROG Normal 04-29-2019 [facility] (99559) CONSULT PROG Normal 04-29-2019 [facility] (37852) cbc and differential on 2019-04-29 Abs Baso <0.03 <0.11 Normal 04-29-2019 [facility] (57865) Comment: Performed By: #### BMP, PHOS , MG1, CBCDIF, PTT, PT ####[place] [address]C levelJohn [place] [phone] Abs Zapata 0.38 <0.87 k/uL Normal 04-29-2019 [facility] (87107) Comment: Performed By: #### BMP, PHOS , MG1, CBCDIF, PTT, PT ####[place] [address] [place] [phone] Abs Neut 3.10 1.45-7.50 k/uL Normal 04-29-2019 [facility] (37263) Comment: Performed By: #### BMP, PHOS , MG1, CBCDIF, PTT, PT ####[place] [address] [place] [phone] Absolute nRBC <0.01 <0.01 Normal 04-29-2019 [facility] (54676) Comment: Performed By: #### BMP, PHOS , MG1, CBCDIF, PTT, PT ####[place] [address] [place] [phone] Basophils/100 WBC (Bld) 0.5 % Normal 2019 [facility] (14139) Comment: Performed By: #### BMP, PHOS , MG1, CBCDIF, PTT, PT ####[place] [address] [place] [phone] DTYPE Auto Diff Normal 04-29-2019 [facility] (35879) Comment: Performed By: #### BMP, PHOS , MG1, CBCDIF, PTT, PT ####[place] [address]C levelJohn [place] [phone] Eosinophils (Bld) [#/Vol] 0.09 <0.46 k/uL Normal 04-17 [facility] (00150) Comment: Performed By: #### BMP, PHOS , MG1, CBCDIF, PTT, PT ####[facility] Fhaalibvfure[address]C leveland, [place] [phone] Eosinophils/100 WBC (Bld) 2.2 % Normal 04-17 [facility] (89600) Comment: Performed By: #### BMP, PHOS , MG1, CBCDIF, PTT, PT ####[facility] [address]C leveland, [place] [phone] Erythrocyte distribution 17.0 11.5-15.0 % High 04-28 [facility] width (RBC) [Ratio] [place] (57721) Comment: Performed By: #### BMP, PHOS , MG1, CBCDIF, PTT, PT ####[facility] [place], [place] [phone] Hematocrit (Bld) [Volume 24.7 39.0-51.0 % Low 04-28 [facility] fraction] (64979) Comment: Performed By: #### BMP, PHOS , MG1, CBCDIF, PTT, PT ####[facility] [address]C leveland, [place] [phone] Hemoglobin (Bld) 8.3 13.0-17.0 g/dL Low 04-29-2019 [facility] [Mass/Vol] [place] (50489) Comment: Performed By: #### BMP, PHOS , MG1, CBCDIF, PTT, PT ####[facility] Atxfhoypimee[address]C leveland, [place] [phone] Lymphocytes (Bld) [#/Vol] 0.43 1.00-4.00 k/uL Low 04-17 [facility] (58811) Comment: Performed By: #### BMP, PHOS , MG1, CBCDIF, PTT, PT ####[facility] [address]ps[address]fucy[address]C leveland, [place] [phone] Lymphocytes/100 WBC (Bld) 10.7 % Normal 04-17 [facility] (23704) Comment: Performed By: #### BMP, PHOS , MG1, CBCDIF, PTT, PT ####[facility] [address]C level[place], [place] [phone] MCH (RBC) [Entitic mass] 31.3 26.0-34.0 pG Normal 04-28 [facility] (11539) Comment: Performed By: #### BMP, PHOS , MG1, CBCDIF, PTT, PT ####[facility] [place], [place] [phone] MCHC (RBC) [Mass/Vol] 33.6 30.5-36.0 g/dL Normal 04-29-19 [facility] (97710) Comment: Performed By: #### BMP, PHOS , MG1, CBCDIF, PTT, PT ####[place] [address] [place]andCass[place] [phone] MCV (RBC) [Entitic vol] 93.2 80.0-100.0 fL Normal 04-28 [facility] (62087) Comment: Performed By: #### BMP, PHOS , MG1, CBCDIF, PTT, PT ####[facility] [address]acl[address]C level[place], [place] [phone] Monocytes/100 WBC (Bld) 9.5 % Normal 2019 [facility] (88751) Comment: Performed By: #### BMP, PHOS , MG1, CBCDIF, PTT, PT ####[facility] [place], [place] [phone] Neutrophils/100 WBC (Bld) 77.1 % Normal 04-17 [facility] (09283) Comment: Performed By: #### BMP, PHOS , MG1, CBCDIF, PTT, PT ####[facility] [place]andCass[place] [phone] NRBCs 0.0 0 /100 WBC Normal 04-29-2019 [facility] (18961) Comment: Performed By: #### BMP, PHOS , MG1, CBCDIF, PTT, PT ####[facility] [place], [place] [phone] Platelet mean volume 12.1 9.0-12.7 fL Normal 0 [facility] (d) [Entitic vol] [place] (18986) Comment: Performed By: #### BMP, PHOS , MG1, CBCDIF, PTT, PT ####[place] [address] [place], [place] [phone] Platelets (Bld) [#/Vol] 75 150-400 k/uL Low 2019 [facility] (68979) Comment: Result Comment: No clot dete cted. Performed By: #### BMP, PHOS , MG1, CBCDIF, PTT, PT ####[place] [address] [place], [place] [phone] RBC (Bld) [#/Vol] 2.65 4.20-6.00 m/uL Low 04-29-2019 [facility] (36655) Comment: Performed By: #### BMP, PHOS , MG1, CBCDIF, PTT, PT ####[place] [address] [place], [place] [phone] WBC (Bld) [#/Vol] 4.02 3.70-11.00 k/uL Normal 04-29-2019 [facility] (76086) Comment: Performed By: #### BMP, PHOS , MG1, CBCDIF, PTT, PT ####[place] [address] [place], [place] [phone] case managem on CASE MANAGEM Normal 04-29-2019 [facility] (26663) brief op not on BRIEF OP NOT Normal 04-29-2019 [facility] (91470) basic metabolic panl on 2019-04-29 Anion gap [Moles/Vol] 9 9-18 mmol/L Normal 04-29-[address] [facility] (48019) Comment: Performed By: #### BMP PHOS , MG1 ####[facility] [address] [phone] Calcium [Mass/Vol] 8.2 8.5-10.2 mg/dL Low 04-29-2019 [facility] (30723) Comment: Performed By: #### BMP, PHOS , MG1 ####[facility] [address] [phone] Chloride [Moles/Vol] 96 97-105 mmol/L Low 0 [facility] (70693) Comment: Performed By: #### BMP, PHOS , MG1 ####[facility] [place] [address] [phone] CO2 [Moles/Vol] 31 22-30 mmol/L High 04-29-2019 [facility] (47571) Comment: Performed By: #### BMP, PHOS , MG1 ####[facility] [place] [address] [phone] Creatinine [Mass/Vol] 1.58 0.73-1.22 mg/dL High 04-29-[address] [facility] (69516) Comment: Performed By: #### BMP, PHOS , MG1 ####[facility] [address] [phone] eGFR- Amer. 53 Normal 04-29-2019 [facility] (20741) Comment: Performed By: #### BMP, PHOS , MG1 ####[facility] [address] [phone] GFR/1.73 sq M predicted among 44 . Normal 04-29-2019 [facility] non-blacks MDRD (S/P/Bld) [Vol (80394) rate/Area] Comment: Result Comment: eGFR (Estima pratik GFR) Units of measure: mL/min/1.73 meters squaredeGFR is derived from the reexpressed MDRD Study equation using the following parameters: serum creatinine, age, gender and race. The creatinine assay has been calibrated to be traceable to IDMS.An eGFR <60 mL/min/1.73m2 for >3 months is consistent with chronic kidney disease. Refer to KDOQI guidelines for clinical inte rpretation.In patients with unstable renal function, e.g. those with ac cowlitz kidney injury, the eGFR may not accurately reflect actual GFR. Performed By: #### LUZ MARINA BARNES MG1 ####[facility] [address] [address] [phone] Glucose [Mass/Vol] 146 74-99 mg/dL High 04-29-2019 [facility] (53324) Comment: Result Comment: The [place] Diabetes Association (ADA) provides guidance for cutoff values for fastin g glucose and random glucose. The ADA defines fasting as no caloric intake for at least 8 hours. Fasting plasma glucose results between 100 to 125 m g/dL indicate increased risk for diabetes (prediabetes).Fasting plasma glucose results greater than or equal to 126 mg/dL meet the criteria for diagnosis of diabetes. In the absence of unequivocal hyperglycemia, r esults should be confirmed by repeat testing. In a patient with classic sympt oms of hyperglycemia or hyperglycemic crisis, random plasma glucose result s greater than or equal to 200 mg/dL meet the criteria for diagnosis of di abetes.Reference: Standards of Medical Care in Diabetes 2016, [place] Diab etes Association. Diabetes Care. 2016.39(Suppl 1). Performed By: #### LUZ MARINA BARNES MG1 ####[facility] [address] [place] [address] [phone] Potassium [Moles/Vol] 3.1 3.7-5.1 mmol/L Low 04-29-19 [facility] (16188) Comment: Performed By: #### LUZ MARINA BARNES MG1 ####[facility] [address] [place] [address] [phone] Sodium [Moles/Vol] 136 136-144 mmol/L Normal 04-29-2019 [facility] (91259) Comment: Performed By: #### BMP, PHOS , MG1 ####[facility] [address]etrghatxbuy[address] AveClevelRobert [place] [address] [phone] Urea nitrogen [Mass/Vol] 13 9-24 mg/dL Normal 04-28 [facility] (01501) Comment: Performed By: #### BMP, PHOS , MG1 ####[facility] [address] AveClevelCeres[place], [place] [phone] Anion gap [Moles/Vol] 11 9-18 mmol/L Normal 04-29-[address] [facility] (11579) Comment: Performed By: #### BMP, PHOS , MG1, CBCDIF, PTT, PT ####[facility] [place] [phone] Calcium [Mass/Vol] 8.6 8.5-10.2 mg/dL Normal 04-29-2019 [facility] (72481) Comment: Performed By: #### BMP, PHOS , MG1, CBCDIF, PTT, PT ####[facility] [place], [place] [phone] Chloride [Moles/Vol] 98 97-105 mmol/L Normal 0 [facility] (85603) Comment: Performed By: #### BMP, PHOS , MG1, CBCDIF, PTT, PT ####[facility] [place], [place] [phone] CO2 [Moles/Vol] 29 22-30 mmol/L Normal 04-29-2019 [facility] (00703) Comment: Performed By: #### BMP, PHOS , MG1, CBCDIF, PTT, PT ####[facility] [address]C levelandE[place], [place] [phone] Creatinine [Mass/Vol] 1.74 0.73-1.22 mg/dL High 04-29-[address] [facility] (89159) Comment: Performed By: #### BMP, PHOS , MG1, CBCDIF, PTT, PT ####[facility] [address]C [place], [place] [phone] eGFR- Amer. 47 Normal 04-29-2019 [facility] (54952) Comment: Performed By: #### BMP, PHOS , MG1, CBCDIF, PTT, PT ####[facility] [address]C [place], [place] [phone] GFR/1.73 sq M predicted among 39 . Normal 04-29-2019 [facility] non-blacks MDRD (S/P/Bld) [Vol (93112) rate/Area] Comment: Result Comment: eGFR (Estima pratik GFR) Units of measure: mL/min/1.73 meters squaredeGFR is derived from the reexpressed MDRD Study equation using the following parameters: serum creatinine, age, gender and race. The creatinine assay has been calibrated to be traceable to IDMS.An eGFR <60 mL/min/1.73m2 for >3 months is consistent with chronic kidney disease. Refer to KDOQI guidelines for clinical inte rpretation.In patients with unstable renal function, e.g. those with ac cowlitz kidney injury, the eGFR may not accurately reflect actual GFR. Performed By: #### BMP, PHOS , MG1, CBCDIF, PTT, PT ####[facility] [address] [place], [place] [phone] Glucose [Mass/Vol] 132 74-99 mg/dL High 04-29-2019 [facility] (41918) Comment: Result Comment: The [place] Diabetes Association (ADA) provides guidance for cutoff values for fastin g glucose and random glucose. The ADA defines fasting as no caloric intake for at least 8 hours. Fasting plasma glucose results between 100 to 125 m g/dL indicate increased risk for diabetes (prediabetes).Fasting plasma glucose results greater than or equal to 126 mg/dL meet the criteria for diagnosis of diabetes. In the absence of unequivocal hyperglycemia, r esults should be confirmed by repeat testing. In a patient with classic sympt oms of hyperglycemia or hyperglycemic crisis, random plasma glucose result s greater than or equal to 200 mg/dL meet the criteria for diagnosis of di abetes.Reference: Standards of Medical Care in Diabetes 2016, [place] Diab etes Association. Diabetes Care. 2016.39(Suppl 1). Performed By: #### BMP, PHOS , MG1, CBCDIF, PTT, PT ####[facility] [place], [place] [phone] Potassium [Moles/Vol] 3.6 3.7-5.1 mmol/L Low 04-29-19 [facility] (27963) Comment: Performed By: #### BMP, PHOS , MG1, CBCDIF, PTT, PT ####[facility] [place], [place] [phone] Sodium [Moles/Vol] 138 136-144 mmol/L Normal 04-29-2019 [facility] (12254) Comment: Performed By: #### BMP, PHOS , MG1, CBCDIF, PTT, PT ####[facility] [place], [place] [phone] Urea nitrogen [Mass/Vol] 9 9-24 mg/dL Normal 04-28 [facility] (63117) Comment: Performed By: #### BMP, PHOS , MG1, CBCDIF, PTT, PT ####[facility] [place], [place] [phone] aptt on 2019-04-29 aPTT Coag (Bld) [Time] 27.7 23.0-32.[address] [facility] (01753) Comment: Result Comment: Unfractionat ed Heparin Therapeutic Ranges:Standard Heparin Nomogram: 53 to 78 seconds ( anti-Xa level of 0.3 to 0.7 U/ml)Low Dose/ACS Nomogram: 49 to 67 seconds ( anti-Xa level of 0.2 to 0.5 U/ml)Stroke Treatment Nomogram: 49 to 67 seconds (anti-Xa level of 0.2 to 0.5 U/ml)Note: The APTT therapeutic range h as been determined for the current lot of laboratory APTT reagent in u se throughout the [facility]. Performed By: #### BMP, PHOS , MG1, CBCDIF, PTT, PT ####[facility] [facility] [place], [place] [phone] therapy nt on 04-27 THERAPY NT Normal 04-28-2019 [facility] (80311) protime on PT Coag (PPP) [Time] 1.2 0.9-1.[address] [facility] (95745) Comment: Result Comment: Vitamin K An tagonist (VKA) Therapeutic Range: INR 2 to 3 (Target INR of 2.5)Note: For patients treated with VKA drugs, such as warfarin, the [place] Col[employer] ge of Chest Physicians 2012 Guideline recommends a therapeutic INR range of 2 to 3 (target INR of 2.5). This recommendation includes high-risk patients with antiphospholipid syndrome with previous arterial or venous thromboem bolism, current-generation mechanical or bioprosthetic aortic heart v alve replacement.Note: Patients with mechanical aortic valve replacement and additional risk factors for thromboembolic events (atrial fibrillation, previous thromboembolism, LV dysfunction, hypercoagulable conditions) or an older generation mechanical AVR (i.e., ball in-Cage) or any mechani veronika MVR should have a INR therapeutic range of 2.5 to 3.5 (target INR of 3) .Sawyer GH, et al. Chest 2012, 141:7S-47SNishimura RA, et a l. [facility] 2017, 70: 252-289 Performed By: #### PTT, PT, CBC, PHOS, MG1, CMP ####[facility] [address] [place], [place] [phone] PT Coag (PPP) [Time] 12.4 9.7-13.[address] [facility] (22277) Comment: Performed By: #### PTT, PT, CBC, PHOS, MG1, CMP ####[facility] [place], [place] [phone] progress on 2019-04 PROGRESS Normal 04-28-2019 [facility] (55528) PROGRESS Normal 04-28-2019 [facility] (95112) phosphorus on 04-27 Phosphate [Mass/Vol] 1.9 2.7-4.8 mg/dL Low 0 [facility] (35770) Comment: Performed By: #### PTT, PT, CBC, PHOS, MG1, CMP ####[facility] [place], [place] [phone] nutrition on 04-27 NUTRITION Normal 04-28-2019 [facility] (32969) nursing prog on NURSING PROG Normal 04-28-2019 [facility] (24947) NURSING PROG Normal 04-28-2019 [facility] (57032) magnesium on 04-27 Magnesium [Mass/Vol] 2.1 1.7-2.3 mg/dL Normal 0 [facility] (95528) Comment: Performed By: #### PTT, PT, CBC, PHOS, MG1, CMP ####[facility] [place], [place] [phone] consult on CONSULT Normal 04-28-2019 [facility] (38055) comp metabolic panel on 2019-04-28 Albumin [Mass/Vol] 3.4 3.9-4.9 g/dL Low 04-28-2019 [facility] (89560) Comment: Performed By: #### PTT, PT, CBC, PHOS, MG1, CMP ####[facility] [address] [place], [place] [phone] ALP [Catalytic activity/Vol] 38 38-113 U/L Normal 0 04-28-2019 [facility] (14922) Comment: Performed By: #### PTT, PT, CBC, PHOS, MG1, CMP ####[place] [address] [place], [place] [phone] ALT [Catalytic activity/Vol] 12 10-54 U/L Normal 0 04-28-2019 [facility] (31375) Comment: Performed By: #### PTT, PT, CBC, PHOS, MG1, CMP ####[place] [address] [place], [place] [phone] Anion gap [Moles/Vol] 11 9-18 mmol/L Normal 04-28-[address] [facility] (51061) Comment: Performed By: #### PTT, PT, CBC, PHOS, MG1, CMP ####[place] [address] [place], [place] [phone] AST [Catalytic activity/Vol] 38 14-40 U/L Normal 0 04-28-2019 [facility] (42025) Comment: Performed By: #### PTT, PT, CBC, PHOS, MG1, CMP ####[place] [address] [place], [place] [phone] Bilirubin [Mass/Vol] 0.8 0.2-1.3 mg/dL Normal 0 [facility] (91952) Comment: Performed By: #### PTT, PT, CBC, PHOS, MG1, CMP ####[place] [address] [place], [place] [phone] Calcium [Mass/Vol] 8.6 8.5-10.2 mg/dL Normal 04-28-2019 [facility] (06456) Comment: Performed By: #### PTT, PT, CBC, PHOS, MG1, CMP ####[place] [address] [place], [place] [phone] Chloride [Moles/Vol] 100 97-105 mmol/L Normal 0 [facility] (60462) Comment: Performed By: #### PTT, PT, CBC, PHOS, MG1, CMP ####[place] [address] [facility] [place] [phone] CO2 [Moles/Vol] 25 22-30 mmol/L Normal 04-28-2019 [facility] (81338) Comment: Performed By: #### PTT, PT, CBC, PHOS, MG1, CMP ####[facility] [address] [place], [place] [phone] Creatinine [Mass/Vol] 1.66 0.73-1.22 mg/dL High 04-28-[address] [facility] (26324) Comment: Performed By: #### PTT, PT, CBC, PHOS, MG1, CMP ####[facility] [place], [place] [phone] eGFR- Amer. 50 Normal 04-28-2019 [facility] (92923) Comment: Performed By: #### PTT, PT, CBC, PHOS, MG1, CMP ####[facility] [place], [place] [phone] GFR/1.73 sq M predicted among 41 . Normal 04-28-2019 [facility] non-blacks MDRD (S/P/Bld) [Vol (26389) rate/Area] Comment: Result Comment: eGFR (Estima pratik GFR) Units of measure: mL/min/1.73 meters squaredeGFR is derived from the reexpressed MDRD Study equation using the following parameters: serum creatinine, age, gender and race. The creatinine assay has been calibrated to be traceable to IDMS.An eGFR <60 mL/min/1.73m2 for >3 months is consistent with chronic kidney disease. Refer to KDOQI guidelines for clinical inte rpretation.In patients with unstable renal function, e.g. those with ac cowlitz kidney injury, the eGFR may not accurately reflect actual GFR. Performed By: #### PTT, PT, CBC, PHOS, MG1, CMP ####[facility] [address] [place], [place] [phone] Glucose [Mass/Vol] 169 74-99 mg/dL High 04-28-2019 [facility] (53937) Comment: Result Comment: The [place] Diabetes Association (ADA) provides guidance for cutoff values for fastin g glucose and random glucose. The ADA defines fasting as no caloric intake for at least 8 hours. Fasting plasma glucose results between 100 to 125 m g/dL indicate increased risk for diabetes (prediabetes).Fasting plasma glucose results greater than or equal to 126 mg/dL meet the criteria for diagnosis of diabetes. In the absence of unequivocal hyperglycemia, r esults should be confirmed by repeat testing. In a patient with classic sympt oms of hyperglycemia or hyperglycemic crisis, random plasma glucose result s greater than or equal to 200 mg/dL meet the criteria for diagnosis of di abetes.Reference: Standards of Medical Care in Diabetes 2016, [place] Diab etes Association. Diabetes Care. 2016.39(Suppl 1). Performed By: #### PTT, PT, CBC, PHOS, MG1, CMP ####[facility] [place], [place] [phone] Potassium [Moles/Vol] 4.2 3.7-5.1 mmol/L Normal 04-28-19 [facility] (65384) Comment: Performed By: #### PTT, PT, CBC, PHOS, MG1, CMP ####[facility] [address] [place], [place] [phone] Protein [Mass/Vol] 4.9 6.3-8.0 g/dL Low 04-28-2019 [facility] (88633) Comment: Performed By: #### PTT, PT, CBC, PHOS, MG1, CMP ####[facility] [address] [place], [place] [phone] Sodium [Moles/Vol] 136 136-144 mmol/L Normal 04-28-2019 [facility] (69511) Comment: Performed By: #### PTT, PT, CBC, PHOS, MG1, CMP ####[facility] [place], [place] [phone] Urea nitrogen [Mass/Vol] 10 9-24 mg/dL Normal 04-27 [facility] (00661) Comment: Performed By: #### PTT, PT, CBC, PHOS, MG1, CMP ####[facility] [place], [place] [phone] cbc on 2019-04-28 Absolute nRBC <0.01 <0.01 Normal 04-28-2019 [facility] (13420) Comment: Performed By: #### PTT, PT, CBC, PHOS, MG1, CMP ####[place] [address] [place], [place] [phone] Erythrocyte distribution 17.1 11.5-15.0 % High 04-27 [facility] width (RBC) [Ratio] [place] (17665) Comment: Performed By: #### PTT, PT, CBC, PHOS, MG1, CMP ####[place] [address] [place], [place] [phone] Hematocrit (Bld) [Volume 27.4 39.0-51.0 % Low 04-27 [facility] fraction] (06300) Comment: Performed By: #### PTT, PT, CBC, PHOS, MG1, CMP ####[place] [address] [place], [place] [phone] Hemoglobin (Bld) 9.3 13.0-17.0 g/dL Low 04-28-2019 [facility] [Mass/Vol] [place] (90920) Comment: Performed By: #### PTT, PT, CBC, PHOS, MG1, CMP ####[place] [address] [place], [place] [phone] MCH (RBC) [Entitic mass] 30.5 26.0-34.0 pG Normal 04-27 [facility] (15346) Comment: Performed By: #### PTT, PT, CBC, PHOS, MG1, CMP ####[facility] [place], [place] [phone] MCHC (RBC) [Mass/Vol] 33.9 30.5-36.0 g/dL Normal 04-28-[address] [facility] (51378) Comment: Performed By: #### PTT, PT, CBC, PHOS, MG1, CMP ####[facility] [place], [place] [phone] MCV (RBC) [Entitic vol] 89.8 80.0-100.0 fL Normal 04-27 [facility] (98661) Comment: Performed By: #### PTT, PT, CBC, PHOS, MG1, CMP ####[place] [address] [place], [place] [phone] Platelet mean volume 11.5 9.0-12.7 fL Normal 0 [facility] (Bld) [Entitic vol] [place] (46760) Comment: Performed By: #### PTT, PT, CBC, PHOS, MG1, CMP ####[place] [address] [place], [place] [phone] Platelets (Bld) [#/Vol] 78 150-400 k/uL Low 2019 [facility] (05271) Comment: Result Comment: Result check ed and verifiedNo clot detected. Performed By: #### PTT, PT, CBC, PHOS, MG1, CMP ####[place] [address] [place], [place] [phone] RBC (Bld) [#/Vol] 3.05 4.20-6.00 m/uL Low 04-28-2019 [facility] (26585) Comment: Performed By: #### PTT, PT, CBC, PHOS, MG1, CMP ####[place] [address] [place], [place] [phone] WBC (Bld) [#/Vol] 7.23 3.70-11.00 k/uL Normal 04-28-2019 [facility] (37118) Comment: Performed By: #### PTT, PT, CBC, PHOS, MG1, CMP ####[facility] [place], [place] [phone] aptt on 2019-04-28 aPTT Coag (Bld) [Time] 26.2 23.0-32.[address] [facility] (17177) Comment: Result Comment: Unfractionat ed Heparin Therapeutic Ranges:Standard Heparin Nomogram: 53 to 78 seconds ( anti-Xa level of 0.3 to 0.7 U/ml)Low Dose/ACS Nomogram: 49 to 67 seconds ( anti-Xa level of 0.2 to 0.5 U/ml)Stroke Treatment Nomogram: 49 to 67 seconds (anti-Xa level of 0.2 to 0.5 U/ml)Note: The APTT therapeutic range h as been determined for the current lot of laboratory APTT reagent in u se throughout the [facility]. Performed By: #### PTT, PT, CBC, PHOS, MG1, CMP ####[facility] [place], [place] [phone] therapy nt on 04-26 THERAPY NT Normal 04-27-2019 [facility] (45579) protime on PT Coag (PPP) [Time] 13.6 9.7-13.[address] [facility] (84170) Comment: Performed By: #### PT, PHOS, MG1, CMP, CBC, PTT ####[place] [address] [place], [place] [phone] PT Coag (PPP) [Time] 1.3 0.9-1.[address] [facility] (49053) Comment: Result Comment: Vitamin K An tagonist (VKA) Therapeutic Range: INR 2 to 3 (Target INR of 2.5)Note: For patients treated with VKA drugs, such as warfarin, the [place] Col[employer] ge of Chest Physicians 2012 Guideline recommends a therapeutic INR range of 2 to 3 (target INR of 2.5). This recommendation includes high-risk patients with antiphospholipid syndrome with previous arterial or venous thromboem bolism, current-generation mechanical or bioprosthetic aortic heart v alve replacement.Note: Patients with mechanical aortic valve replacement and additional risk factors for thromboembolic events (atrial fibrillation, previous thromboembolism, LV dysfunction, hypercoagulable conditions) or an older generation mechanical AVR (i.e., ball in-Cage) or any mechani veronika MVR should have a INR therapeutic range of 2.5 to 3.5 (target INR of 3) .Sawyer GH, et al. Chest 2012, 141:7S-47SNishimura RA, et a owen. [facility] 2017, 70: 252-289 Performed By: #### PT, PHOS, MG1, CMP, CBC, PTT ####[place] [address] [place], [place] [phone] progress on 2019-04 PROGRESS Normal 04-27-2019 [facility] (91242) PROGRESS Normal 04-27-2019 [facility] (82218) PROGRESS Normal 04-27-2019 [facility] (82769) PROGRESS Normal 04-27-2019 [facility] (52042) phosphorus on 04-26 Phosphate [Mass/Vol] 3.0 2.7-4.8 mg/dL Normal 0 [facility] (40085) Comment: Performed By: #### PT, PHOS, MG1, CMP, CBC, PTT ####[address] [phone] nursing prog on NURSING PROG Normal 04-27-2019 [facility] (64839) magnesium on 04-26 Magnesium [Mass/Vol] 1.8 1.7-2.3 mg/dL Normal 0 [facility] (60058) Comment: Performed By: #### PT, PHOS, MG1, CMP, CBC, PTT ####[place] [address] [place], [place] [phone] hemoglobin on 04-26 Hemoglobin (Bld) 8.6 13.0-17.0 g/dL Low 04-27-2019 [facility] [Mass/Vol] [place] (29572) Comment: Performed By: #### HCT, HGB ####[place] [address], [place] [phone] hematocrit on 04-26 Hematocrit (Bld) [Volume 25.5 39.0-51.0 % Low 04-26 [facility] fraction] (79843) Comment: Performed By: #### HCT, HGB ####[place] [address], [place] [phone] gasa + all for radiance use only on 2019-04-27 Base Excess 2 mmol/L Normal 04-27-2019 [facility] (71632) Comment: Performed By: #### [facility] ### #[place] [address], [place] [phone] Blood Gas Comm, Art . Normal 04-27-2019 [facility] (77836) Comment: Performed By: #### [facility] ### #[place] [address], [place] [phone] Calcium [Mass/Vol] 1.21 1.08-1.30 mmol/L Normal 04-27-2019 [facility] (44038) Comment: Performed By: #### [facility] ### #[place] [address], [place] [phone] Carboxyhemoglobin,Art 1.0 <2.1 % Normal 04-27-[address] [facility] (01092) Comment: Performed By: #### [facility] ### #[place] [address], [place] [phone] CO2 [Moles/Vol] 27 22.0-28.0 mmol/L Normal 04-27-2019 [facility] (90797) Comment: Performed By: #### [facility] ### #[place] [address], [place] [phone] Glucose [Mass/Vol] 161 60-105 mg/dL High 04-27-2019 [facility] (99211) Comment: Performed By: #### [facility] ### #[facility], [place] [phone] HCO3 (Bld) [Moles/Vol] 26 22-26 mmol/L Normal 020 [facility] (12825) Comment: Performed By: #### [facility] ### #[place] [address], [place] [phone] Hematocrit (Bld) [Volume 27.8 39.0-51.0 % Low 04-26 [facility] fraction] (77716) Comment: Performed By: #### [facility] ### #[place] [address], [place] [phone] Hemoglobin (Bld) 9.0 13.0-17.0 g/dL Low 04-27-2019 [facility] [Mass/Vol] [place] (17247) Comment: Performed By: #### [facility] ### #[place] [address], [place] [phone] Lactate [Moles/Vol] 2.2 0.5-2.2 mmol/L Normal 04-27-2019 [facility] (21277) Comment: Performed By: #### [facility] ### #[place] [address], [place] [phone] Methemoglobin 1.1 <1.6 % Normal 04-27-2019 [facility] (70288) Comment: Performed By: #### [facility] ### #[facility], [place] [phone]- [phone] O2 Administered 2L Normal 04-27-2019 [facility] (17413) Comment: Performed By: #### [facility] ### #[place] [address], [place] [phone] Oxygen (Bld) [Partial 89 85-95 mm Hg Normal 04-27-19 [facility] pressure] (41416) Comment: Performed By: #### [facility] ### #[place] [address], [place] [phone] Oxyhemoglobin, Art. 96 95-98 % Normal 04-27-2019 [facility] (95483) Comment: Performed By: #### [facility] ### #[place] [address] [place], [place] [phone]- [phone] pCO2 37 34-46 mm Hg Normal 04-27-2019 [facility] (85375) Comment: Performed By: #### [facility] ### #[place] [address] clinicand[place], [place] [phone]- [phone] pCO2, Temp Correct 37 34-46 mm Hg Normal 04-27-2019 [facility] (20453) Comment: Performed By: #### [facility] ### #[place] [address], [place] [phone] pH (Bld) 7.45 7.35-7.45 [pH] Normal 04-27-2019 [facility] (45527) Comment: Performed By: #### [facility] ### #[place] [address], [place] [phone] pH, Temp Corrected 7.45 7.35-7.45 Normal 04-27-2019 [facility] (84928) Comment: Performed By: #### [facility] ### #[facility], [place] [phone] pO2, Temp Corrected 89 85-95 mm Hg Normal 04-27-2019 [facility] (43244) Comment: Performed By: #### [facility] ### #[place] [address], [place] [phone]- [phone] Potassium [Moles/Vol] 3.9 3.5-5.0 mmol/L Normal 04-27-[address] [facility] (51017) Comment: Performed By: #### [facility] ### #[place] [address], [place] [phone] Sodium [Moles/Vol] 137 136-144 mmol/L Normal 04-27-2019 [facility] (01214) Comment: Performed By: #### [facility] ### #[place] [address], [place] [phone]- [phone] Base Excess 1 mmol/L Normal 04-27-2019 [facility] (59499) Comment: Performed By: #### [facility] ### #[place] [address], [place] [phone] Blood Gas Comm, Art . Normal 04-27-2019 [facility] (74143) Comment: Performed By: #### [facility] ### #[place] [address], [place] [phone]- [phone] Calcium [Mass/Vol] 1.19 1.08-1.30 mmol/L Normal 04-27-2019 [facility] (21254) Comment: Performed By: #### [facility] ### #[place] [address], [place] [phone]- [phone] Carboxyhemoglobin,Art 0.4 <2.1 % Normal 04-27-[address] [facility] (73157) Comment: Performed By: #### [facility] ### #[place] [address], [place] [phone]- [phone] CO2 [Moles/Vol] 25 22.0-28.0 mmol/L Normal 04-27-2019 [facility] (14918) Comment: Performed By: #### [facility] ### #[place] [address], [place] [phone]- [phone] Glucose [Mass/Vol] 188 60-105 mg/dL High 04-27-2019 [facility] (99097) Comment: Performed By: #### [facility] ### #[place] [address], [place] [phone]- [phone] HCO3 (Bld) [Moles/Vol] 24 22-26 mmol/L Normal 04-26-[address] [facility] (42880) Comment: Performed By: #### [facility] ### #[place] [address], [place] [phone] Hematocrit (Bld) [Volume 27.7 39.0-51.0 % Low 04-26 [facility] fraction] (31587) Comment: Performed By: #### [facility] ### #[place] [address], [place] [phone]- [phone] Hemoglobin (Bld) 8.9 13.0-17.0 g/dL Low 04-27-2019 [facility] [Mass/Vol] [place] (41989) Comment: Performed By: #### [facility] ### #[place] [address], [place] [phone] Lactate [Moles/Vol] 3.1 0.5-2.2 mmol/L High 04-27-2019 [facility] (83691) Comment: Performed By: #### [facility] ### #[place] [address], [place] [phone]- [phone] Methemoglobin 0.7 <1.6 % Normal 04-27-2019 [facility] (26721) Comment: Performed By: #### [facility] ### #[place] [address], [place] [phone]- [phone] O2 Administered 30% Normal 04-27-2019 [facility] (53510) Comment: Performed By: #### [facility] ### #[place] [address], [place] [phone]- [phone] Oxygen (Bld) [Partial 107 85-95 mm Hg High 04-27-[address] [facility] pressure] (69959) Comment: Performed By: #### [facility] ### #[place] [address], [place] [phone]- [phone] Oxyhemoglobin, Art. 96 95-98 % Normal 04-27-2019 [facility] (15828) Comment: Performed By: #### [facility] ### #[facility] clinicand[place], [place] [phone]- [phone] pCO2 37 34-46 mm Hg Normal 04-27-2019 [facility] (36344) Comment: Performed By: #### [facility] ### #[place] [address], [place] [phone]- [phone] pCO2, Temp Correct 37 34-46 mm Hg Normal 04-27-2019 [facility] (79666) Comment: Performed By: #### [facility] ### #[place] [address], [place] [phone]- [phone] pH (Bld) 7.43 7.35-7.45 [pH] Normal 04-27-2019 [facility] (09086) Comment: Performed By: #### ALL[facility] ### #[facility], [place] [phone]- [phone] pH, Temp Corrected 7.43 7.35-7.45 Normal 04-27-2019 [facility] (10500) Comment: Performed By: #### [facility] ### #[facility], [place] [phone]- [phone] pO2, Temp Corrected 107 85-95 mm Hg High 04-27-2019 [facility] (14560) Comment: Performed By: #### [facility] ### #[facility], [place] [phone]- [phone] Potassium [Moles/Vol] 3.9 3.5-5.0 mmol/L Normal 04-27-19 [facility] (83710) Comment: Performed By: #### [facility] ### #[place] [address], [place] [phone]- [phone] Sodium [Moles/Vol] 136 136-144 mmol/L Normal 04-27-2019 [facility] (81649) Comment: Performed By: #### [facility] ### #[place] [address], [place] [phone]- [phone] Base Excess NEG 1 Normal 04-27-2019 [facility] (77305) Comment: Performed By: #### [facility] ### #[place] [address], [place] [phone]- [phone] Blood Gas Comm, Art . Normal 04-27-2019 [facility] (10360) Comment: Performed By: #### [facility] ### #[place] [address], [place] [phone]- [phone] Calcium [Mass/Vol] 1.17 1.08-1.30 mmol/L Normal 04-27-2019 [facility] (04506) Comment: Performed By: #### [facility] ### #[place] [address], [place] [phone]- [phone] Carboxyhemoglobin,Art 1.1 <2.1 % Normal 04-27-[address] [facility] (92995) Comment: Performed By: #### [facility] ### #[place] [address], [place] [phone]- [phone] CO2 [Moles/Vol] 24 22.0-28.0 mmol/L Normal 04-27-2019 [facility] (00402) Comment: Performed By: #### ALL[facility] ### #[facility], [place] [phone]- [phone] Glucose [Mass/Vol] 178 60-105 mg/dL High 04-27-2019 [facility] (68865) Comment: Performed By: #### [facility] ### #[facility], [place] [phone]- [phone] HCO3 (Bld) [Moles/Vol] 23 22-26 mmol/L Normal 020 [facility] (18417) Comment: Performed By: #### [facility] ### #[place] [address], [place] [phone]- [phone] Hematocrit (Bld) [Volume 30.4 39.0-51.0 % Low 04-26 [facility] fraction] (61981) Comment: Performed By: #### [facility] ### #[facility], [place] [phone]- [phone] Hemoglobin (Bld) 9.8 13.0-17.0 g/dL Low 04-27-2019 [facility] [Mass/Vol] [place] (33082) Comment: Performed By: #### [facility] ### #[place] [address], [place] [phone]- [phone] Lactate [Moles/Vol] 4.0 0.5-2.2 mmol/L High 04-27-2019 [facility] (22806) Comment: Performed By: #### [facility] ### #[place] [address], [place] [phone]- [phone] Methemoglobin 1.1 <1.6 % Normal 04-27-2019 [facility] (61514) Comment: Performed By: #### [facility] ### #[place] [address], [place] [phone]- [phone] O2 Administered 30% Normal 04-27-2019 [facility] (12881) Comment: Performed By: #### ALL[facility] ### #[facility], [place] [phone]- [phone] Oxygen (Bld) [Partial 95 85-95 mm Hg Normal 04-27-[address] [facility] pressure] (77143) Comment: Performed By: #### [facility] ### #[place] [address], [place] [phone]- [phone] Oxyhemoglobin, Art. 96 95-98 % Normal 04-27-[address] [facility] [facility] (32485) Comment: Performed By: #### ALLBG ### #[facility], [place] [phone]- [phone] pCO2 35 34-46 mm Hg Normal 04-27-2019 [facility] (06672) Comment: Performed By: #### ALLBG ### #[place] [address], [place] [phone]- [phone] pCO2, Temp Correct 35 34-46 mm Hg Normal 04-27-2019 [facility] (13580) Comment: Performed By: #### ALLBG ### #[place] [address], [place] [phone]- [phone] pH (Bld) 7.43 7.35-7.45 [pH] Normal 04-27-2019 [facility] (45321) Comment: Performed By: #### ALLBG ### #[place] [address], [place] [phone]- [phone] pH, Temp Corrected 7.43 7.35-7.45 Normal 04-27-2019 [facility] (52408) Comment: Performed By: #### ALLBG ### #[place] [address], [place] [phone]- [phone] pO2, Temp Corrected 95 85-95 mm Hg Normal 04-27-2019 [facility] (95250) Comment: Performed By: #### ALLBG ### #[place] [address], [place] 16801396- [phone] Potassium [Moles/Vol] 4.0 3.5-5.0 mmol/L Normal 04-27-19 [facility] (79797) Comment: Performed By: #### ALLBG ### #[place] [address], [place] 17771814- [phone] Sodium [Moles/Vol] 137 136-144 mmol/L Normal 04-27-2019 [facility] (24888) Comment: Performed By: #### ALLBG ### #[place] [address], [place] 21231733- [phone] Base Excess NEG 1 Normal 04-27-2019 [facility] (12482) Comment: Performed By: #### ALLBG ### #[place] [address], [place] [phone]- [phone] Blood Gas Comm, Art . Normal 04-27-2019 [facility] (79654) Comment: Performed By: #### ALLBG ### #[place] [address], [place] 08523610- [phone] Calcium [Mass/Vol] 1.10 1.08-1.30 mmol/L Normal 04-27-2019 [facility] (06195) Comment: Performed By: #### ALLBG ### #[place] [address], [place] [phone]- [phone] Carboxyhemoglobin,Art 1.0 <2.1 % Normal 04-27-[address] [facility] (75334) Comment: Performed By: #### ALLBG ### #[place] [address], [place] 83955332- [phone] CO2 [Moles/Vol] 23 22.0-28.0 mmol/L Normal 04-27-2019 [facility] (62073) Comment: Performed By: #### ALLBG ### #[place] [address], [place] 11357456- [phone] Glucose [Mass/Vol] 204 60-105 mg/dL High 04-27-2019 [facility] (00985) Comment: Performed By: #### ALLBG ### #[place] [address], [place] 20935411- [phone] HCO3 (Bld) [Moles/Vol] 22 22-26 mmol/L Normal 020 [facility] (69026) Comment: Performed By: #### ALLBG ### #[place] [address], [place] [phone]- [phone] Hematocrit (Bld) [Volume 30.1 39.0-51.0 % Low 04-26 [facility] fraction] (10123) Comment: Performed By: #### ALLBG ### #[place] [address], [place] [phone]- [phone] Hemoglobin (Bld) 9.7 13.0-17.0 g/dL Low 04-27-2019 [facility] [Mass/Vol] [place] (58998) Comment: Performed By: #### ALLBG ### #[place] [address], [place] [phone]- [phone] Lactate [Moles/Vol] 4.9 0.5-2.2 mmol/L High 04-27-2019 [facility] (45772) Comment: Performed By: #### ALLBG ### #[place] [address], [place] [phone]- [phone] Methemoglobin 1.0 <1.6 % Normal 04-27-2019 [facility] (40144) Comment: Performed By: #### ALLBG ### #[place] [address], [place] 905783083- [phone] O2 Administered 30% Normal 04-27-2019 [facility] (39313) Comment: Performed By: #### ALLBG ### #[place] [address], [place] [phone]- [phone] Oxygen (Bld) [Partial 110 85-95 mm Hg High 04-27-[address] [facility] pressure] (08104) Comment: Performed By: #### ALLBG ### #[place] [address], [place] 29958691- [phone] Oxyhemoglobin, Art. 96 95-98 % Normal 04-27-2019 [facility] (11744) Comment: Performed By: #### ALLBG ### #[place] [address], [place] 68396552- [phone] pCO2 35 34-46 mm Hg Normal 04-27-2019 [facility] (97785) Comment: Performed By: #### ALLBG ### #[place] [address], [place] [phone]- [phone] pCO2, Temp Correct 35 34-46 mm Hg Normal 04-27-2019 [facility] (23264) Comment: Performed By: #### ALLBG ### #[place] [address], [place] [phone]- [phone] pH (Bld) 7.42 7.35-7.45 [pH] Normal 04-27-2019 [facility] (78081) Comment: Performed By: #### ALLBG ### #[place] [address], [place] [phone]- [phone] pH, Temp Corrected 7.42 7.35-7.45 Normal 04-27-2019 [facility] (24579) Comment: Performed By: #### ALLBG ### #[place] [address], [place] [phone]- [phone] pO2, Temp Corrected 110 85-95 mm Hg High 04-27-2019 [facility] (39335) Comment: Performed By: #### ALLBG ### #[place] [address], [place] [phone]- [phone] Potassium [Moles/Vol] 4.0 3.5-5.0 mmol/L Normal 04-27-[address] [facility] (22755) Comment: Performed By: #### ALLBG ### #[place] [address], [place] 306448359- [phone] Sodium [Moles/Vol] 134 136-144 mmol/L Low 04-27-2019 [facility] (92528) Comment: Performed By: #### ALLBG ### #[place] [address], [place] [phone]- [phone] Base Excess NEG 4 Normal 04-27-2019 [facility] (22560) Comment: Performed By: #### ALLBG ### #[place] [address], [place] 39779891- [phone] Blood Gas Comm, Art . Normal 04-27-2019 [facility] (82166) Comment: Performed By: #### ALLBG ### #[place] [address], [place] 96938817- [phone] Calcium [Mass/Vol] 1.16 1.08-1.30 mmol/L Normal 04-27-2019 [facility] (52303) Comment: Performed By: #### ALLBG ### #[place] [address], [place] [phone]- [phone] Carboxyhemoglobin,Art 0.8 <2.1 % Normal 04-27-[address] [facility] (87671) Comment: Performed By: #### ALLBG ### #[place] [address], [place] 74721027- [phone] CO2 [Moles/Vol] 21 22.0-28.0 mmol/L Low 04-27-2019 [facility] (47373) Comment: Performed By: #### ALLBG ### #[place] [address], [place] 62912534- [phone] Glucose [Mass/Vol] 256 60-105 mg/dL High 04-27-2019 [facility] (23562) Comment: Performed By: #### ALLBG ### #[place] [address], [place] 45772977- [phone] HCO3 (Bld) [Moles/Vol] 20 22-26 mmol/L Low 020 [facility] (85758) Comment: Performed By: #### ALLBG ### #[place] [address], [place] 72268847- [phone] Hematocrit (Bld) [Volume 28.4 39.0-51.0 % Low 04-26 [facility] fraction] (02006) Comment: Performed By: #### ALLBG ### #[place] [address], [place] 88900487 [phone] Hemoglobin (Bld) 9.2 13.0-17.0 g/dL Low 04-27-2019 [facility] [Mass/Vol] [place] (65127) Comment: Performed By: #### ALLBG ### #[place] [address], [place] 43494724- [phone] Lactate [Moles/Vol] 6.6 0.5-2.2 mmol/L High 04-27-2019 [facility] (98910) Comment: Performed By: #### ALLBG ### #[place] [address], [place] 64214859- [phone] Methemoglobin 1.0 <1.6 % Normal 04-27-2019 [facility] (68754) Comment: Performed By: #### ALLBG ### #[place] [address], [place] 38392344- [phone] Oxygen (Bld) [Partial 104 85-95 mm Hg High 04-27-[address] [facility] pressure] (49544) Comment: Performed By: #### ALLBG ### #[place] [address], [place] 14178229- [phone] Oxyhemoglobin, Art. 96 95-98 % Normal 04-27-2019 [facility] (26502) Comment: Performed By: #### ALLBG ### #[place] [address], [place] 27575044 [phone] pCO2 33 34-46 mm Hg Low 04-27-2019 [facility] (24801) Comment: Performed By: #### ALLBG ### #[place] [address], [place] 44389857- [phone] pCO2, Temp Correct 33 34-46 mm Hg Low 04-27-2019 [facility] (82664) Comment: Performed By: #### ALLBG ### #[place] [address], [place] 43408651- [phone] pH (Bld) 7.40 7.35-7.45 [pH] Normal 04-27-2019 [facility] (64338) Comment: Performed By: #### ALLBG ### #[place] [address], [place] 57263312- [phone] pH, Temp Corrected 7.40 7.35-7.45 Normal 04-27-2019 [facility] (95242) Comment: Performed By: #### ALLBG ### #[place] [address], [place] 96223554- [phone] pO2, Temp Corrected 104 85-95 mm Hg High 04-27-2019 [facility] (37977) Comment: Performed By: #### ALLBG ### #[address] [phone]- [phone] Potassium [Moles/Vol] 4.5 3.5-5.0 mmol/L Normal 04-27-[address] [facility] (90523) Comment: Performed By: #### ALLBG ### [address], [place] 38481617- [phone] Sodium [Moles/Vol] 138 136-144 mmol/L Normal 04-27-2019 [facility] (65785) Comment: Performed By: #### ALLBG ### #[place] [address], [place] 99038502- [phone] Base Excess NEG 6 Normal 04-27-2019 [facility] (69189) Comment: Performed By: #### ALLBG ### #[place] [address], [place] 97960258- [phone] Blood Gas Comm, Art . Normal 04-27-2019 [facility] (20923) Comment: Performed By: #### ALLBG ### [address], [place] 28636029- [phone] Calcium [Mass/Vol] 1.11 1.08-1.30 mmol/L Normal 04-27-2019 [facility] (54051) Comment: Performed By: #### ALLBG ### #[place] [address], [place] 27563812- [phone] Carboxyhemoglobin,Art 0.8 <2.1 % Normal 04-27-[address] [facility] (36523) Comment: Performed By: #### ALLBG ### #[place] [address], [place] 06534857- [phone] CO2 [Moles/Vol] 20 22.0-28.0 mmol/L Low 04-27-2019 [facility] (50980) Comment: Performed By: #### ALLBG ### #[place] [address], [place] 861991541- [phone] Glucose [Mass/Vol] 215 60-105 mg/dL High 04-27-2019 [facility] (78109) Comment: Performed By: #### ALLBG ### #[place] [address], [place] 17963837- [phone] HCO3 (Bld) [Moles/Vol] 19 22-26 mmol/L Low 020 [facility] (33366) Comment: Performed By: #### ALLBG ### #[place] [address], [place] 88372144- [phone] Hematocrit (Bld) [Volume 26.8 39.0-51.0 % Low 04-26 [facility] fraction] (66849) Comment: Performed By: #### ALLBG ### #[place] [address], [place] 23835387- [phone] Hemoglobin (Bld) 8.6 13.0-17.0 g/dL Low 04-27-2019 [facility] [Mass/Vol] [place] (55123) Comment: Performed By: #### ALLBG ### #[place] [address] clinic[place]Cass[place] [phone]- [phone] Lactate [Moles/Vol] 6.1 0.5-2.2 mmol/L High 04-27-2019 [facility] (74298) Comment: Performed By: #### ALLBG ### #[facility], [place] [phone]- [phone] Methemoglobin 1.2 <1.6 % Normal 04-27-2019 [facility] (96297) Comment: Performed By: #### ALLBG ### #[place] [address], [place] [phone]- [phone] Oxygen (Bld) [Partial 135 85-95 mm Hg High 04-27-[address] [facility] pressure] (63713) Comment: Performed By: #### ALLBG ### #[place] [address], [place] 104176895- [phone] Oxyhemoglobin, Art. 97 95-98 % Normal 04-27-2019 [facility] (65306) Comment: Performed By: #### ALLBG ### #[facility], [place] 607289534- [phone] pCO2 33 34-46 mm Hg Low 04-27-2019 [facility] (82695) Comment: Performed By: #### ALLBG ### #[place] [address], [place] 285099382- [phone] pCO2, Temp Correct 33 34-46 mm Hg Low 04-27-2019 [facility] (60552) Comment: Performed By: #### ALLBG ### #[facility], [place] 041387136- [phone] pH (Bld) 7.37 7.35-7.45 [pH] Normal 04-27-2019 [facility] (18298) Comment: Performed By: #### ALLBG ### #[facility], [place] 680986189- [phone] pH, Temp Corrected 7.37 7.35-7.45 Normal 04-27-2019 [facility] (93214) Comment: Performed By: #### ALLBG ### #[facility], [place] 86156989- [phone] pO2, Temp Corrected 135 85-95 mm Hg High 04-27-2019 [facility] (39109) Comment: Performed By: #### ALLBG ### #[place] [address], [place] 931806034- [phone] Potassium [Moles/Vol] 4.7 3.5-5.0 mmol/L Normal 04-27-19 [facility] (00434) Comment: Performed By: #### ALLBG ### #[place] [address], [place] 41246376- [phone] Sodium [Moles/Vol] 135 136-144 mmol/L Low 04-27-2019 [facility] (97831) Comment: Performed By: #### ALLBG ### #[place] [address], [place] [phone]- [phone] Base Excess NEG 8 Normal 04-27-2019 [facility] (94061) Comment: Performed By: #### ALLBG ### #[place] [address], [place] 53059975- [phone] Blood Gas Comm, Art . Normal 04-27-2019 [facility] (58870) Comment: Performed By: #### ALLBG ### #[place] [address], [place] 78542657- [phone] Calcium [Mass/Vol] 1.08 1.08-1.30 mmol/L Normal 04-27-2019 [facility] (16968) Comment: Performed By: #### ALLBG ### #[place] [address], [place] 26498578- [phone] Carboxyhemoglobin,Art 0.9 <2.1 % Normal 04-27-19 [facility] (91820) Comment: Performed By: #### ALLBG ### #[facility], [place] 16220574- [phone] CO2 [Moles/Vol] 16 22.0-28.0 mmol/L Low 04-27-2019 [facility] (32493) Comment: Performed By: #### ALLBG ### #[place] [address], [place] 917333539- [phone] Glucose [Mass/Vol] 203 60-105 mg/dL High 04-27-2019 [facility] (26881) Comment: Performed By: #### ALLBG ### #[place] [address], [place] [phone]- [phone] HCO3 (Bld) [Moles/Vol] 16 22-26 mmol/L Low 020 [facility] (54359) Comment: Performed By: #### ALLBG ### #[place] [address], [place] 495163722- [phone] Hematocrit (Bld) [Volume 27.7 39.0-51.0 % Low 04-26 [facility] fraction] (37938) Comment: Performed By: #### ALLBG ### #[place] [address], [place] 77897573- [phone] Hemoglobin (Bld) 8.9 13.0-17.0 g/dL Low 04-27-2019 [facility] [Mass/Vol] [place] (98083) Comment: Performed By: #### ALLBG ### #[place] [address], [place] 37099601- [phone] Lactate [Moles/Vol] 7.3 0.5-2.2 mmol/L High 04-27-2019 [facility] (44294) Comment: Performed By: #### ALLBG ### #[place] [address], [place] 23125379- [phone] Methemoglobin 1.2 <1.6 % Normal 04-27-2019 [facility] (90307) Comment: Performed By: #### ALLBG ### #[place] [address], [place] 84023271- [phone] O2 Administered 40% Normal 04-27-2019 [facility] (56415) Comment: Performed By: #### ALLBG ### #[place] [address], [place] 40586442- [phone] Oxygen (Bld) [Partial 149 85-95 mm Hg High 04-27-[address] [facility] pressure] (46016) Comment: Performed By: #### ALLBG ### #[place] [address], [place] 32100282- [phone] Oxyhemoglobin, Art. 97 95-98 % Normal 04-27-2019 [facility] (15744) Comment: Performed By: #### ALLBG ### #[place] [address], [place] [phone]- [phone] pCO2 28 34-46 mm Hg Low 04-27-2019 [facility] (21171) Comment: Performed By: #### ALLBG ### #[place] [address], [place] 07741837- [phone] pCO2, Temp Correct 28 34-46 mm Hg Low 04-27-2019 [facility] (85642) Comment: Performed By: #### ALLBG ### #[place] [address], [place] 45723462- [phone] pH (Bld) 7.36 7.35-7.45 [pH] Normal 04-27-2019 [facility] (97486) Comment: Performed By: #### ALLBG ### #[place] [address], [place] 683160928- [phone] pH, Temp Corrected 7.36 7.35-7.45 Normal 04-27-2019 [facility] (61412) Comment: Performed By: #### ALLBG ### #[place] [address], [place] 432011469- [phone] pO2, Temp Corrected 149 85-95 mm Hg High 04-27-2019 [facility] (80120) Comment: Performed By: #### ALLBG ### #[place] [address], [place] 25774719- [phone] Potassium [Moles/Vol] 4.7 3.5-5.0 mmol/L Normal 04-27-19 [facility] (49519) Comment: Performed By: #### ALLBG ### #[place] [address], [place] 69956416- [phone] Sodium [Moles/Vol] 135 136-144 mmol/L Low 04-27-2019 [facility] (62928) Comment: Performed By: #### ALLBG ### #[place] [address], [place] 937141985- [phone] Base Excess NEG 9 Normal 04-27-2019 [facility] (86755) Comment: Performed By: #### ALLBG ### #[place] [address], [place] 328825947- [phone] Blood Gas Comm, Art . Normal 04-27-2019 [facility] (65120) Comment: Performed By: #### ALLBG ### #[place] [address], [place] 33717622- [phone] Calcium [Mass/Vol] 1.12 1.08-1.30 mmol/L Normal 04-27-2019 [facility] (30592) Comment: Performed By: #### ALLBG ### #[place] [address], [place] [phone]- [phone] Carboxyhemoglobin,Art 0.0 <2.1 % Normal 04-27-19 [facility] (81424) Comment: Performed By: #### ALLBG ### #[place] [address], [place] 88787222- [phone] CO2 [Moles/Vol] 16 22.0-28.0 mmol/L Low 04-27-2019 [facility] (32762) Comment: Performed By: #### ALLBG ### #[place] [address], [place] 88954665- [phone] Glucose [Mass/Vol] 205 60-105 mg/dL High 04-27-2019 [facility] (44172) Comment: Performed By: #### ALLBG ### #[place] [address], [place] 44133865- [phone] HCO3 (Bld) [Moles/Vol] 15 22-26 mmol/L Low 020 [facility] (97039) Comment: Performed By: #### ALLBG ### #[place] [address], [place] 299111780- [phone] Hematocrit (Bld) [Volume 35.5 39.0-51.0 % Low 04-26 [facility] fraction] (84478) Comment: Performed By: #### ALLBG ### #[place] [address], [place] 84514361- [phone] Hemoglobin (Bld) 11.5 13.0-17.0 g/dL Low 04-27-2019 [facility] [Mass/Vol] [place] (89417) Comment: Performed By: #### ALLBG ### #[place] [address], [place] 03701476- [phone] Lactate [Moles/Vol] 6.6 0.5-2.2 mmol/L High 04-27-2019 [facility] (09263) Comment: Performed By: #### ALLBG ### #[place] [address], [place] [phone]- [phone] Methemoglobin 0.9 <1.6 % Normal 04-27-2019 [facility] (56073) Comment: Performed By: #### ALLBG ### #[place] [address], [place] 69786745- [phone] O2 Administered 40% Normal 04-27-2019 [facility] (79644) Comment: Performed By: #### ALLBG ### #[place] [address], [place] 010740174- [phone] Oxygen (Bld) [Partial 157 85-95 mm Hg High 04-27-[address] [facility] pressure] (62614) Comment: Performed By: #### ALLBG ### #[place] [address], [place] 22230123- [phone] Oxyhemoglobin, Art. 97 95-98 % Normal 04-27-2019 [facility] (55324) Comment: Performed By: #### ALLBG ### #[place] [address], [place] 465861452- [phone] pCO2 28 34-46 mm Hg Low 04-27-2019 [facility] (12177) Comment: Performed By: #### ALLBG ### #[place] [address], [place] 34044241- [phone] pCO2, Temp Correct 28 34-46 mm Hg Low 04-27-2019 [facility] (62534) Comment: Performed By: #### ALLBG ### #[place] [address], [place] 66424051- [phone] pH (Bld) 7.36 7.35-7.45 [pH] Normal 04-27-2019 [facility] (15086) Comment: Performed By: #### ALLBG ### #[place] [address], [place] 63180844- [phone] pH, Temp Corrected 7.36 7.35-7.45 Normal 04-27-2019 [facility] (77449) Comment: Performed By: #### ALLBG ### #[place] [address], [place] 01523997- [phone] pO2, Temp Corrected 157 85-95 mm Hg High 04-27-2019 [facility] (03583) Comment: Performed By: #### ALLBG ### #[facility], [place] 02833766- [phone] Potassium [Moles/Vol] 5.4 3.5-5.0 mmol/L High 04-27-19 [facility] (15231) Comment: Performed By: #### ALLBG ### #[facility], [place] 54766146- [phone] Sodium [Moles/Vol] 133 136-144 mmol/L Low 04-27-2019 [facility] (49784) Comment: Performed By: #### ALLBG ### #[place] [address], [place] [phone]- [phone] ecg complete on ECG COMPLETE Normal 04-27-2019 [facility] (91256) comp metabolic panel on 2019-04-27 Albumin [Mass/Vol] 3.3 3.9-4.9 g/dL Low 04-27-2019 [facility] (89147) Comment: Performed By: #### PT, PHOS, MG1, CMP, CBC, PTT ####[address] [place], [place] [phone] ALP [Catalytic activity/Vol] 46 38-113 U/L Normal 0 04-27-2019 [facility] (07039) Comment: Performed By: #### PT, PHOS, MG1, CMP, CBC, PTT ####[place] [address] [place], [place] [phone] ALT [Catalytic activity/Vol] 12 10-54 U/L Normal 0 04-27-2019 [facility] (77458) Comment: Performed By: #### PT, PHOS, MG1, CMP, CBC, PTT ####[place] [address] [place], [place] [phone] Anion gap [Moles/Vol] 19 9-18 mmol/L High 04-27-19 [facility] (32901) Comment: Performed By: #### PT, PHOS, MG1, CMP, CBC, PTT ####[facility] [id number], [place] [phone] AST [Catalytic activity/Vol] 30 14-40 U/L Normal 0 04-27-2019 [facility] (56087) Comment: Performed By: #### PT, PHOS, MG1, CMP, CBC, PTT ####[facility], [place] [phone] Bilirubin [Mass/Vol] 0.9 0.2-1.3 mg/dL Normal 0 [facility] (62665) Comment: Performed By: #### PT, PHOS, MG1, CMP, CBC, PTT ####[facility], [place] [phone] Calcium [Mass/Vol] 7.8 8.5-10.2 mg/dL Low 04-27-2019 [facility] (84390) Comment: Result Comment: Result reche cked. Performed By: #### PT, PHOS, MG1, CMP, CBC, PTT ####[facility], [place] [phone] Chloride [Moles/Vol] 104 97-105 mmol/L Normal 0 [facility] (82212) Comment: Result Comment: Result reche cked. Performed By: #### PT, PHOS, MG1, CMP, CBC, PTT ####[facility] [address], [place] [phone] CO2 [Moles/Vol] 14 22-30 mmol/L Low 04-27-2019 [facility] (88727) Comment: Result Comment: Result reche cked. Performed By: #### PT, PHOS, MG1, CMP, CBC, PTT ####[facility], [place] [phone] Creatinine [Mass/Vol] 1.83 0.73-1.22 mg/dL High 04-27-[address] [facility] (82376) Comment: Performed By: #### PT, PHOS, MG1, CMP, CBC, PTT ####[facility] [address] [place], [place] [phone] eGFR- Amer. 45 Normal 04-27-2019 [facility] ([id number]) Comment: Performed By: #### PT, PHOS, MG1, CMP, CBC, PTT ####[facility] [address] [place], [place] [phone] GFR/1.73 sq M predicted among 37 . Normal 04-27-2019 [facility] non-blacks MDRD (S/P/Bld) [Vol (46422) rate/Area] Comment: Result Comment: eGFR (Estima pratik GFR) Units of measure: mL/min/1.73 meters squaredeGFR is derived from the reexpressed MDRD Study equation using the following parameters: serum creatinine, age, gender and race. The creatinine assay has been calibrated to be traceable to IDMS.An eGFR <60 mL/min/1.73m2 for >3 months is consistent with chronic kidney disease. Refer to KDOQI guidelines for clinical inte rpretation.In patients with unstable renal function, e.g. those with ac cowlitz kidney injury, the eGFR may not accurately reflect actual GFR. Performed By: #### PT, PHOS, MG1, CMP, CBC, PTT ####[facility] [address] [place], [place] [phone] Glucose [Mass/Vol] 208 74-99 mg/dL High 04-27-2019 [facility] (67971) Comment: Result Comment: The [place] [employer] Association (ADA) provides guidance for cutoff values for fastin g glucose and random glucose. The ADA defines fasting as no caloric intake for at least 8 hours. Fasting plasma glucose results between 100 to 125 m g/dL indicate increased risk for diabetes (prediabetes).Fasting plasma glucose results greater than or equal to 126 mg/dL meet the criteria for diagnosis of diabetes. In the absence of unequivocal hyperglycemia, r esults should be confirmed by repeat testing. In a patient with classic sympt oms of hyperglycemia or hyperglycemic crisis, random plasma glucose result s greater than or equal to 200 mg/dL meet the criteria for diagnosis of di abetes.Reference: Standards of Medical Care in Diabetes 2016, [place] Diab etes Association. Diabetes Care. 2016.39(Suppl 1). Performed By: #### PT, PHOS, MG1, CMP, CBC, PTT ####[facility] [place], [place] [phone] Potassium [Moles/Vol] 5.8 3.7-5.1 mmol/L High 04-27-[address] [facility] (73712) Comment: Performed By: #### PT, PHOS, MG1, CMP, CBC, PTT ####[place] [address] [place], [place] [phone] Protein [Mass/Vol] 4.6 6.3-8.0 g/dL Low 04-27-2019 [facility] (25639) Comment: Performed By: #### PT, PHOS, MG1, CMP, CBC, PTT ####[facility] [place], [place] [phone] Sodium [Moles/Vol] 137 136-144 mmol/L Normal 04-27-2019 [facility] (50199) Comment: Result Comment: Result reche cked. Performed By: #### PT, PHOS, MG1, CMP, CBC, PTT ####[facility] [place], [place] [phone] Urea nitrogen [Mass/Vol] 12 9-24 mg/dL Normal 04-26 [facility] (39277) Comment: Performed By: #### PT, PHOS, MG1, CMP, CBC, PTT ####[facility] [place], [place] [phone] cbc on 2019-04-27 Absolute nRBC <0.01 <0.01 Normal 04-27-2019 [facility] (35190) Comment: Performed By: #### PT, PHOS, MG1, CMP, CBC, PTT ####[place] [address] [place], [place] [phone] Erythrocyte distribution 15.9 11.5-15.0 % High 04-26 [facility] width (RBC) [Ratio] [place] (30011) Comment: Performed By: #### PT, PHOS, MG1, CMP, CBC, PTT ####[place] [address] [place], [place] [phone] Hematocrit (Bld) [Volume 33.0 39.0-51.0 % Low 04-26 [facility] fraction] (53879) Comment: Performed By: #### PT, PHOS, MG1, CMP, CBC, PTT ####[place] [address] [place], [place] [phone] Hemoglobin (Bld) 11.4 13.0-17.0 g/dL Low 04-27-2019 [facility] [Mass/Vol] [place] (17736) Comment: Performed By: #### PT, PHOS, MG1, CMP, CBC, PTT ####[place] [address] [place], [place] [phone] MCH (RBC) [Entitic mass] 32.1 26.0-34.0 pG Normal 04-26 [facility] (53678) Comment: Performed By: #### PT, PHOS, MG1, CMP, CBC, PTT ####[place] [address] [place], [place] [phone] MCHC (RBC) [Mass/Vol] 34.5 30.5-36.0 g/dL Normal 04-27-[address] [facility] (02215) Comment: Performed By: #### PT, PHOS, MG1, CMP, CBC, PTT ####[place] [address] [place], [place] [phone] MCV (RBC) [Entitic vol] 93.0 80.0-100.0 fL Normal 04-26 [facility] (74867) Comment: Performed By: #### PT, PHOS, MG1, CMP, CBC, PTT ####[facility] [address] [place], [place] [phone] Platelet mean volume 11.6 9.0-12.7 fL Normal 0 [facility] (Bld) [Entitic vol] [place] (26972) Comment: Performed By: #### PT, PHOS, MG1, CMP, CBC, PTT ####[facility] [address] [place], [place] [phone] Platelets (Bld) [#/Vol] 107 150-400 k/uL Low 2019 [facility] (20375) Comment: Result Comment: Result check ed and verifiedNo clot detected. Performed By: #### PT, PHOS, MG1, CMP, CBC, PTT ####[facility] [place], [place] [phone] RBC (Bld) [#/Vol] 3.55 4.20-6.00 m/uL Low 04-27-2019 [facility] [place] [facility] (34949) Comment: Performed By: #### PT, PHOS, MG1, CMP, CBC, PTT ####[facility] [address] [place], [place] [phone] WBC (Bld) [#/Vol] 13.96 3.70-11.00 k/uL High 04-27-2019 [facility] (07391) Comment: Performed By: #### PT, PHOS, MG1, CMP, CBC, PTT ####[facility] [place], [place] [phone] case managem on CASE MANAGEM Normal 04-27-2019 [facility] (37375) basic metabolic panl on 2019-04-27 Anion gap [Moles/Vol] 15 9-18 mmol/L Normal 04-27-[address] [facility] (02157) Comment: Performed By: #### BMP ####[address] [phone] Calcium [Mass/Vol] 7.5 8.5-10.2 mg/dL Low 04-27-2019 [facility] (59246) Comment: Performed By: #### BMP ####[address] [phone] Chloride [Moles/Vol] 103 97-105 mmol/L Normal 0 [facility] (96520) Comment: Performed By: #### BMP ####[address] [phone] CO2 [Moles/Vol] 20 22-30 mmol/L Low 04-27-2019 [facility] (33763) Comment: Performed By: #### BMP ####[address] [phone] Creatinine [Mass/Vol] 1.77 0.73-1.22 mg/dL High 04-27-[address] [facility] (09526) Comment: Performed By: #### BMP ####[address] [phone] eGFR- Amer. 46 Normal 04-27-2019 [facility] (94561) Comment: Performed By: #### BMP ####[address] [phone] GFR/1.73 sq M predicted among 38 . Normal 04-27-2019 [facility] non-blacks MDRD (S/P/Bld) [Vol (51684) rate/Area] Comment: Result Comment: eGFR (Estima pratik GFR) Units of measure: mL/min/1.73 meters squaredeGFR is derived from the reexpressed MDRD Study equation using the following parameters: serum creatinine, age, gender and race. The creatinine assay has been calibrated to be traceable to IDMS.An eGFR <60 mL/min/1.73m2 for >3 months is consistent with chronic kidney disease. Refer to KDOQI guidelines for clinical inte rpretation.In patients with unstable renal function, e.g. those with ac cowlitz kidney injury, the eGFR may not accurately reflect actual GFR. Performed By: #### BMP ####C [facility] [place], [place] [phone] Glucose [Mass/Vol] 282 74-99 mg/dL High 04-27-2019 [facility] (06458) Comment: Result Comment: The [place] Diabetes Association (ADA) provides guidance for cutoff values for fastin g glucose and random glucose. The ADA defines fasting as no caloric intake for at least 8 hours. Fasting plasma glucose results between 100 to 125 m g/dL indicate increased risk for diabetes (prediabetes).Fasting plasma glucose results greater than or equal to 126 mg/dL meet the criteria for diagnosis of diabetes. In the absence of unequivocal hyperglycemia, r esults should be confirmed by repeat testing. In a patient with classic sympt oms of hyperglycemia or hyperglycemic crisis, random plasma glucose result s greater than or equal to 200 mg/dL meet the criteria for diagnosis of di abetes.Reference: Standards of Medical Care in Diabetes 2016, [place] Diab etes Association. Diabetes Care. 2016.39(Suppl 1). Performed By: #### BMP ####C [facility] [place], [place] [phone] Potassium [Moles/Vol] 4.4 3.7-5.1 mmol/L Normal 04-27-[address] [facility] (08198) Comment: Performed By: #### BMP ####C [facility] [place], [place] [phone] Sodium [Moles/Vol] 138 136-144 mmol/L Normal 04-27-2019 [facility] (67967) Comment: Performed By: #### BMP ####C [facility] [place], [place] [phone] Urea nitrogen [Mass/Vol] 12 9-24 mg/dL Normal 04-26 [facility] (42856) Comment: Performed By: #### BMP ####C [facility] [place], [place] [phone] aptt on 2019-04-27 aPTT Coag (Bld) [Time] 23.6 23.0-32.[address] [facility] (13963) Comment: Result Comment: Unfractionat ed Heparin Therapeutic Ranges:Standard Heparin Nomogram: 53 to 78 seconds ( anti-Xa level of 0.3 to 0.7 U/ml)Low Dose/ACS Nomogram: 49 to 67 seconds ( anti-Xa level of 0.2 to 0.5 U/ml)Stroke Treatment Nomogram: 49 to 67 seconds (anti-Xa level of 0.2 to 0.5 U/ml)Note: The APTT therapeutic range h as been determined for the current lot of laboratory APTT reagent in u se throughout the [facility]. Performed By: #### PT, PHOS, MG1, CMP, CBC, PTT ####[facility] [place], [place] [phone] allied health on 06-05-09 [facility] Normal 04-27-2019 [facility] (79723) xr chest 1v frontal port on 2019-04-26 XR CHEST 1V FRONTAL PORT Normal 04-25 [facility] (44060) type and screen on 2019-04-26 ABO/RH(D) O POSITIVE Normal 04-26-2019 [facility] (69450) Comment: Performed By: #### TSCR #### [facility] [place], [place] [phone] surgical pathology on 2019-04-26 SURGICAL PATHOLOGY Normal 04-26-2019 [facility] (85002) protime on PT Coag (PPP) [Time] 1.1 0.9-1.[address] [facility] (80102) Comment: Result Comment: Vitamin K An tagonist (VKA) Therapeutic Range: INR 2 to 3 (Target INR of 2.5)Note: For patients treated with VKA drugs, such as warfarin, the [place] [employer] of Chest Physicians 2012 Guideline recommends a therapeutic INR range of 2 to 3 (target INR of 2.5). This recommendation includes high-risk patients with antiphospholipid syndrome with previous arterial or venous thromboem bolism, current-generation mechanical or bioprosthetic aortic heart v alve replacement.Note: Patients with mechanical aortic valve replacement and additional risk factors for thromboembolic events (atrial fibrillation, previous thromboembolism, LV dysfunction, hypercoagulable conditions) or an older generation mechanical AVR (i.e., ball in-Cage) or any mechani veronika MVR should have a INR therapeutic range of 2.5 to 3.5 (target INR of 3) .Phiyatt GH, et al. Chest 2012, 141:7S-47SNishimura RA, et a owen. [facility] 2017, 70: 252-289 Performed By: #### PHOS, PTT , PT, CBC, MG1, BMP ####[place] [address] [place], [place] [phone] PT Coag (PPP) [Time] 11.3 9.7-13.[address] [facility] (03452) Comment: Performed By: #### PHOS, PTT , PT, CBC, MG1, BMP ####[facility] [place], [place] [phone] platelet count on 2 Platelets (Bld) [#/Vol] 92 150-400 k/uL Low 2019 [facility] (52980) Comment: Result Comment: No clot dete cted. Performed By: #### PLTCT ### [address] [phone] plan of care on PLAN OF CARE Normal 04-26-2019 [facility] (95457) phosphorus on 04-25 Phosphate [Mass/Vol] 3.0 2.7-4.8 mg/dL Normal 0 [facility] (82944) Comment: Performed By: #### PHOS, PTT , PT, CBC, MG1, BMP ####[facility] [place], [place] [phone] operative no on OPERATIVE NO Normal 04-26-2019 [facility] (63273) nursing prog on NURSING PROG Normal 04-26-2019 [facility] (74203) magnesium on 04-25 Magnesium [Mass/Vol] 1.8 1.7-2.3 mg/dL Normal 0 [facility] (36969) Comment: Performed By: #### PHOS, PTT , PT, CBC, MG1, BMP ####[place] [address] [place], [place] [phone] gasa, all, mg for rad iance use only on 2019-04-26 Base Excess NEG 9 Normal 04-26-2019 [facility] (02501) Comment: Performed By: #### [facility] ### #[facility], [place] [phone] Blood Gas Comm, Art . Normal 04-26-2019 [facility] (27674) Comment: Performed By: #### [facility] ### #[facility], [place] [phone] Calcium [Mass/Vol] 1.12 1.08-1.30 mmol/L Normal 04-26-2019 [facility] (11205) Comment: Performed By: #### [facility] ### #[facility], [place] [phone] Carboxyhemoglobin,Art 1.7 <2.1 % Normal 04-26-[address] [facility] (63179) Comment: Performed By: #### [facility] ### #[facility], [place] [phone] CO2 [Moles/Vol] 18 22.0-28.0 mmol/L Low 04-26-2019 [facility] (78270) Comment: Performed By: #### [facility] ### #[place] [address], [place] [phone] Glucose [Mass/Vol] 197 60-105 mg/dL High 04-26-2019 [facility] (56493) Comment: Performed By: #### [facility] ### #[place] [address], [place] [phone] HCO3 (Bld) [Moles/Vol] 17 22-26 mmol/L Low 020 [facility] (46510) Comment: Performed By: #### [facility] ### #[place] [address], [place] [phone] Hematocrit (Bld) [Volume 28.9 39.0-51.0 % Low 04-25 [facility] fraction] (33871) Comment: Performed By: #### [facility] ### #[place] [address], [place] [phone] Hemoglobin (Bld) 9.3 13.0-17.0 g/dL Low 04-26-2019 [facility] [Mass/Vol] [place] (14413) Comment: Performed By: #### [facility] ### #[place] [address], [place] [phone] Lactate [Moles/Vol] 6.5 0.5-2.2 mmol/L High 04-26-2019 [facility] (51618) Comment: Performed By: #### [facility] ### #[place] [address], [place] [phone] Magnesium [Mass/Vol] 0.44 0.43-0.66 mmol/L Normal 0 [facility] (54973) Comment: Performed By: #### [facility] ### #[place] [address], [place] [phone] Methemoglobin 1.4 <1.6 % Normal 04-26-2019 [facility] (79870) Comment: Performed By: #### [facility] ### #[place] [address], [place] [phone] Oxygen (Bld) [Partial 199 85-95 mm Hg High 04-26-[address] [facility] pressure] (11197) Comment: Performed By: #### [facility] ### #[place] [address], [place] [phone]- [phone] Oxyhemoglobin, Art. 96 95-98 % Normal 04-26-2019 [facility] (37581) Comment: Performed By: #### [facility] ### #[place] [address], [place] [phone] pCO2 36 34-46 mm Hg Normal 04-26-2019 [facility] (48950) Comment: Performed By: #### [facility] ### #[place] [address], [place] [phone] pCO2, Temp Correct 36 34-46 mm Hg Normal 04-26-2019 [facility] (34593) Comment: Performed By: #### [facility] ### #[place] [address], [place] [phone] pH (Bld) 7.29 7.35-7.45 [pH] Low 04-26-2019 [facility] (65573) Comment: Performed By: #### [facility] ### #[place] [address], [place] [phone] pH, Temp Corrected 7.29 7.35-7.45 Low 04-26-2019 [facility] (89433) Comment: Performed By: #### [facility] ### #[place] [address], [place] [phone] pO2, Temp Corrected 199 85-95 mm Hg High 04-26-2019 [facility] (69417) Comment: Performed By: #### [facility] ### #[facility], [place] [phone] Potassium [Moles/Vol] 4.4 3.5-5.0 mmol/L Normal 04-26-19 [facility] (14285) Comment: Performed By: #### [facility] ### #[facility], [place] [phone] Sodium [Moles/Vol] 136 136-144 mmol/L Normal 04-26-2019 [facility] (86333) Comment: Performed By: #### [facility] ### #[place] [address], [place] [phone] Base Excess NEG 7 Normal 04-26-2019 [facility] (25819) Comment: Performed By: #### [facility] ### #[place] [address], [place] [phone] Blood Gas Comm, Art . Normal 04-26-2019 [facility] (04620) Comment: Performed By: #### [facility] ### #[place] [address], [place] [phone] Calcium [Mass/Vol] 1.23 1.08-1.30 mmol/L Normal 04-26-2019 [facility] (75463) Comment: Performed By: #### [facility] ### #[place] [address], [place] [phone] Carboxyhemoglobin,Art 1.2 <2.1 % Normal 04-26-[address] [facility] (46002) Comment: Performed By: #### [facility] ### #[place] [address], [place] [phone] CO2 [Moles/Vol] 20 22.0-28.0 mmol/L Low 04-26-2019 [facility] (57046) Comment: Performed By: #### [facility] ### #[place] [address], [place] [phone] Glucose [Mass/Vol] 189 60-105 mg/dL High 04-26-2019 [facility] (81690) Comment: Performed By: #### [facility] ### #[place] [address], [place] [phone] HCO3 (Bld) [Moles/Vol] 19 22-26 mmol/L Low 020 [facility] (78483) Comment: Performed By: #### [facility] ### [address], [place] [phone]- [phone] Hematocrit (Bld) [Volume 32.2 39.0-51.0 % Low 04-25 [facility] fraction] (89765) Comment: Performed By: #### [facility] ### [address], [place] [phone]- [phone] Hemoglobin (Bld) 10.4 13.0-17.0 g/dL Low 04-26-2019 [facility] [Mass/Vol] [place] (88639) Comment: Performed By: #### [facility] ### [address] [phone]- [phone] Lactate [Moles/Vol] 4.4 0.5-2.2 mmol/L High 04-26-2019 [facility] (07266) Comment: Performed By: #### [facility] ### #[place] [address], [place] [phone]- [phone] Magnesium [Mass/Vol] 0.51 0.43-0.66 mmol/L Normal 0 [facility] (95798) Comment: Performed By: #### [facility] ### #[place] [address], [place] [phone]- [phone] Methemoglobin 1.4 <1.6 % Normal 04-26-2019 [facility] (24327) Comment: Performed By: #### [facility] ### #[place] [address], [place] [phone]- [phone] Oxygen (Bld) [Partial 195 85-95 mm Hg High 04-26-[address] [facility] pressure] (97916) Comment: Performed By: #### [facility] ### #[place] [address], [place] 26361577- [phone] Oxyhemoglobin, Art. 96 95-98 % Normal 04-26-2019 [facility] (36379) Comment: Performed By: #### [facility] ### #[place] [address], [place] [phone]- [phone] pCO2 40 34-46 mm Hg Normal 04-26-2019 [facility] (17576) Comment: Performed By: #### [facility] ### #[place] [address], [place] [phone]- [phone] pCO2, Temp Correct 40 34-46 mm Hg Normal 04-26-2019 [facility] (47080) Comment: Performed By: #### [facility] ### #[place] [address], [place] [phone]- [phone] pH (Bld) 7.29 7.35-7.45 [pH] Low 04-26-2019 [facility] (77152) Comment: Performed By: #### [facility] ### #[place] [address], [place] [phone]- [phone] pH, Temp Corrected 7.29 7.35-7.45 Low 04-26-2019 [facility] (90314) Comment: Performed By: #### [facility] ### #[place] [address], [place] [phone]- [phone] pO2, Temp Corrected 195 85-95 mm Hg High 04-26-2019 [facility] (80795) Comment: Performed By: #### [facility] ### #[place] [address], [place] [phone]- [phone] Potassium [Moles/Vol] 4.1 3.5-5.0 mmol/L Normal 04-26-19 [facility] (71615) Comment: Performed By: #### ALLMG ### #[facility], [place] [phone]- [phone] Sodium [Moles/Vol] 137 136-144 mmol/L Normal 04-26-2019 [facility] (53482) Comment: Performed By: #### ALL[facility] ### #[facility], [place] [phone]- [phone] Base Excess NEG 3 Normal 04-26-2019 [facility] (79265) Comment: Performed By: #### ALL[facility] ### #[place] [address], [place] 78469751- [phone] Blood Gas Comm, Art . Normal 04-26-2019 [facility] (73905) Comment: Performed By: #### [facility] ### #[place] [address], [place] [phone]- [phone] Calcium [Mass/Vol] 1.07 1.08-1.30 mmol/L Low 04-26-2019 [facility] (73881) Comment: Performed By: #### [facility] ### #[place] [address], [place] [phone]- [phone] Carboxyhemoglobin,Art 0.0 <2.1 % Normal 04-26-19 [facility] (12102) Comment: Performed By: #### ALL[facility] ### #[facility], [place] [phone]- [phone] CO2 [Moles/Vol] 23 22.0-28.0 mmol/L Normal 04-26-2019 [facility] (41107) Comment: Performed By: #### ALLMG ### #[facility], [place] 38594333- [phone] Glucose [Mass/Vol] 172 60-105 mg/dL High 04-26-2019 [facility] (61015) Comment: Performed By: #### ALLMG ### #[facility], [place] [phone]- [phone] HCO3 (Bld) [Moles/Vol] 22 22-26 mmol/L Normal 020 [facility] (86860) Comment: Performed By: #### [facility] ### #[place] [address], [place] 62547552- [phone] Hematocrit (Bld) [Volume 26.6 39.0-51.0 % Low 04-25 [facility] fraction] (66156) Comment: Performed By: #### [facility] ### #[place] [address], [place] [phone]- [phone] Hemoglobin (Bld) 8.6 13.0-17.0 g/dL Low 04-26-2019 [facility] [Mass/Vol] [place] (65206) Comment: Performed By: #### ALL[facility] ### #[place] [address], [place] 55083977- [phone] Lactate [Moles/Vol] 2.4 0.5-2.2 mmol/L High 04-26-2019 [facility] (13739) Comment: Performed By: #### [facility] ### #[place] [address], [place] 54579035- [phone] Magnesium [Mass/Vol] 0.37 0.43-0.66 mmol/L Low 0 [facility] (42138) Comment: Performed By: #### [facility] ### #[place] [address], [place] [phone]- [phone] Methemoglobin 0.7 <1.6 % Normal 04-26-2019 [facility] (92438) Comment: Performed By: #### [facility] ### #[place] [address], [place] [phone]- [phone] Oxygen (Bld) [Partial 205 85-95 mm Hg High 04-26-19 [facility] pressure] (95105) Comment: Performed By: #### [facility] ### #[place] [address], [place] [phone]- [phone] Oxyhemoglobin, Art. 97 95-98 % Normal 04-26-2019 [facility] (20069) Comment: Performed By: #### [facility] ### #[place] [address], [place] [phone]- [phone] pCO2 42 34-46 mm Hg Normal 04-26-2019 [facility] (89856) Comment: Performed By: #### [facility] ### #[place] [address], [place] [phone]- [phone] pCO2, Temp Correct 42 34-46 mm Hg Normal 04-26-2019 [facility] (13086) Comment: Performed By: #### [facility] ### #[place] [address], [place] [phone]- [phone] pH (Bld) 7.34 7.35-7.45 [pH] Low 04-26-2019 [facility] (27921) Comment: Performed By: #### [facility] ### #[place] [address], [place] [phone]- [phone] pH, Temp Corrected 7.34 7.35-7.45 Low 04-26-2019 [facility] (24309) Comment: Performed By: #### [facility] ### #[facility], [place] 46263376- [phone] pO2, Temp Corrected 205 85-95 mm Hg High 04-26-2019 [facility] (66208) Comment: Performed By: #### [facility] ### #[place] [address], [place] 58151826- [phone] Potassium [Moles/Vol] 3.9 3.5-5.0 mmol/L Normal 04-26-[address] [facility] (86623) Comment: Performed By: #### [facility] ### #[place] [address], [place] [phone]- [phone] Sodium [Moles/Vol] 137 136-144 mmol/L Normal 04-26-2019 [facility] (23171) Comment: Performed By: #### [facility] ### #[place] [address], [place] [phone]- [phone] Base Excess 1 mmol/L Normal 04-26-2019 [facility] (39610) Comment: Performed By: #### [facility] ### #[place] [address], [place] 17982385- [phone] Blood Gas Comm, Art . Normal 04-26-2019 [facility] (94904) Comment: Performed By: #### [facility] ### #[place] [address], [place] 01003066- [phone] Calcium [Mass/Vol] 1.18 1.08-1.30 mmol/L Normal 04-26-2019 [facility] (05541) Comment: Performed By: #### [facility] ### #[place] [address] AveCHamilton, [place] [phone] Carboxyhemoglobin,Art 1.0 <2.1 % Normal 04-26-19 [facility] (02135) Comment: Performed By: #### [facility] ### #[place] [address] [address], [place] [phone] CO2 [Moles/Vol] 26 22.0-28.0 mmol/L Normal 04-26-2019 [facility] (88569) Comment: Performed By: #### [facility] ### #[place] [address], [place] [phone] Glucose [Mass/Vol] 169 60-105 mg/dL High 04-26-2019 [facility] (68236) Comment: Performed By: #### [facility] ### #[place] [address], [place] [phone] HCO3 (Bld) [Moles/Vol] 25 22-26 mmol/L Normal 020 [facility] (04577) Comment: Performed By: #### [facility] ### #[place] [address] clinic[place], [place] [phone]- [phone] Hematocrit (Bld) [Volume 30.9 39.0-51.0 % Low 04-25 [facility] fraction] (57102) Comment: Performed By: #### [facility] ### #[place] [address], [place] [phone] Hemoglobin (Bld) 10.0 13.0-17.0 g/dL Low 04-26-2019 [facility] [Mass/Vol] [place] (49124) Comment: Performed By: #### [facility] ### #[place] [address], [place] [phone]- [phone] Lactate [Moles/Vol] 1.7 0.5-2.2 mmol/L Normal 04-26-2019 [facility] (26757) Comment: Performed By: #### [facility] ### #[place] [address], [place] [phone]- [phone] Magnesium [Mass/Vol] 0.42 0.43-0.66 mmol/L Low 0 [facility] (28651) Comment: Performed By: #### [facility] ### #[place] [address], [place] [phone] Methemoglobin 1.4 <1.6 % Normal 04-26-2019 [facility] (52806) Comment: Performed By: #### [facility] ### #[place] [address], [place] [phone] Oxygen (Bld) [Partial 192 85-95 mm Hg High 04-26-[address] [facility] pressure] (70465) Comment: Performed By: #### [facility] ### #[place] [address], [place] [phone]- [phone] Oxyhemoglobin, Art. 97 95-98 % Normal 04-26-2019 [facility] (23469) Comment: Performed By: #### [facility] ### #[place] [address], [place] [phone] pCO2 41 34-46 mm Hg Normal 04-26-2019 [facility] (78483) Comment: Performed By: #### [facility] ### #[place] [address], [place] [phone] pCO2, Temp Correct 41 34-46 mm Hg Normal 04-26-2019 [facility] (76843) Comment: Performed By: #### [facility] ### #[place] [address], [place] [phone] pH (Bld) 7.40 7.35-7.45 [pH] Normal 04-26-2019 [facility] (98738) Comment: Performed By: #### [facility] ### #[place] [address], [place] [phone]- [phone] pH, Temp Corrected 7.40 7.35-7.45 Normal 04-26-2019 [facility] (04738) Comment: Performed By: #### [facility] ### #[place] [address], [place] [phone]- [phone] pO2, Temp Corrected 192 85-95 mm Hg High 04-26-2019 [facility] (24435) Comment: Performed By: #### [facility] ### #[place] [address]CH[place], [place] [phone]- [phone] Potassium [Moles/Vol] 4.1 3.5-5.0 mmol/L Normal 04-26-19 [facility] (34115) Comment: Performed By: #### [facility] ### #[place] [address]CH[place], [place] [phone] Sodium [Moles/Vol] 137 136-144 mmol/L Normal 04-26-2019 [facility] (25311) Comment: Performed By: #### [facility] ### #[place] [address], [place] [phone] Base Excess 0 mmol/L Normal 04-26-2019 [facility] (03840) Comment: Performed By: #### [facility] ### #[place] [address], [place] [phone] Blood Gas Comm, Art . Normal 04-26-2019 [facility] (40197) Comment: Performed By: #### [facility] ### #[place] [address] [place], [place] [phone] Calcium [Mass/Vol] 1.15 1.08-1.30 mmol/L Normal 04-26-2019 [facility] (53131) Comment: Performed By: #### [facility] ### #[place] [address], [place] [phone]- [phone] Carboxyhemoglobin,Art <0.0 <2.1 Normal 04-26-[address] [facility] (73130) Comment: Performed By: #### [facility] ### #[place] [address], [place] [phone] CO2 [Moles/Vol] 25 22.0-28.0 mmol/L Normal 04-26-2019 [facility] (25345) Comment: Performed By: #### [facility] ### #[place] [address], [place] [phone]- [phone] Glucose [Mass/Vol] 122 60-105 mg/dL High 04-26-2019 [facility] (84930) Comment: Performed By: #### [facility] ### #[place] [address], [place] [phone] HCO3 (Bld) [Moles/Vol] 24 22-26 mmol/L Normal 020 [facility] (78603) Comment: Performed By: #### [facility] ### #[place] [address], [place] [phone] Hematocrit (Bld) [Volume 31.8 39.0-51.0 % Low 04-25 [facility] fraction] (92896) Comment: Performed By: #### [facility] ### #[place] [address], [place] [phone]- [phone] Hemoglobin (Bld) 10.3 13.0-17.0 g/dL Low 04-26-2019 [facility] [Mass/Vol] [place] (98262) Comment: Performed By: #### [facility] ### #[place] [address], [place] [phone]- [phone] Lactate [Moles/Vol] 1.2 0.5-2.2 mmol/L Normal 04-26-2019 [facility] (49405) Comment: Performed By: #### [facility] ### #[place] [address], [place] [phone] Magnesium [Mass/Vol] 0.41 0.43-0.66 mmol/L Low 0 [facility] (44204) Comment: Performed By: #### [facility] ### #[place] [address], [place] [phone] Methemoglobin 1.0 <1.6 % Normal 04-26-2019 [facility] (21938) Comment: Performed By: #### [facility] ### #[place] [address], [place] [phone] Oxygen (Bld) [Partial 176 85-95 mm Hg High 04-26-[address] [facility] pressure] (95575) Comment: Performed By: #### [facility] ### #[place] [address], [place] [phone] Oxyhemoglobin, Art. 96 95-98 % Normal 04-26-2019 [facility] (51865) Comment: Performed By: #### [facility] ### #[place] [address], [place] [phone] pCO2 38 34-46 mm Hg Normal 04-26-2019 [facility] (03169) Comment: Performed By: #### [facility] ### #[place] [address] clinicandE[place], [place] [phone]- [phone] pCO2, Temp Correct 38 34-46 mm Hg Normal 04-26-2019 [facility] (72252) Comment: Performed By: #### [facility] ### #[place] [address], [place] [phone]- [phone] pH (Bld) 7.42 7.35-7.45 [pH] Normal 04-26-2019 [facility] (98831) Comment: Performed By: #### [facility] ### #[place] [address] clinicandE[place], [place] [phone]- [phone] pH, Temp Corrected 7.42 7.35-7.45 Normal 04-26-2019 [facility] (88591) Comment: Performed By: #### [facility] ### #[place] [address], [place] [phone] pO2, Temp Corrected 176 85-95 mm Hg High 04-26-2019 [facility] (99388) Comment: Performed By: #### [facility] ### #[place] [address], [place] [phone]- [phone] Potassium [Moles/Vol] 3.4 3.5-5.0 mmol/L Low 04-26-19 [facility] (57809) Comment: Performed By: #### [facility] ### #[place] [address], [place] [phone]- [phone] Sodium [Moles/Vol] 139 136-144 mmol/L Normal 04-26-2019 [facility] (74902) Comment: Performed By: #### [facility] ### #[place] [address], [place] [phone] cbc on 2019-04-26 Absolute nRBC <0.01 <0.01 Normal 04-26-2019 [facility] (86309) Comment: Performed By: #### PHOS, PTT , PT, CBC, MG1, BMP ####[place] [address]C levelandE[place], [place] [phone] Erythrocyte distribution 15.1 11.5-15.0 % High 04-25 [facility] width (RBC) [Ratio] [place] (80715) Comment: Performed By: #### PHOS, PTT , PT, CBC, MG1, BMP ####[place] [address] [place]Ce[place], [place] [phone] Hematocrit (Bld) [Volume 38.0 39.0-51.0 % Low 04-25 [facility] fraction] (58683) Comment: Performed By: #### PHOS, PTT , PT, CBC, MG1, BMP ####[place] [address] levelandE[place], [place] [phone] Hemoglobin (Bld) 12.4 13.0-17.0 g/dL Low 04-26-2019 [facility] [Mass/Vol] [place] (59536) Comment: Performed By: #### PHOS, PTT , PT, CBC, MG1, BMP ####[place] [address] levelandE[place], [place] [phone] MCH (RBC) [Entitic mass] 32.4 26.0-34.0 pG Normal 04-25 [facility] (07472) Comment: Performed By: #### PHOS, PTT , PT, CBC, MG1, BMP ####[place] [address] levelandE[place], [place] [phone] MCHC (RBC) [Mass/Vol] 32.6 30.5-36.0 g/dL Normal 04-26-[address] [facility] (25773) Comment: Performed By: #### PHOS, PTT , PT, CBC, MG1, BMP ####[facility] [address]C levelCeres[place], [place] [phone] MCV (RBC) [Entitic vol] 99.2 80.0-100.0 fL Normal 04-25 [facility] (42201) Comment: Performed By: #### PHOS, PTT , PT, CBC, MG1, BMP ####[place] [address] [place], [place] [phone] Platelet mean volume 11.6 9.0-12.7 fL Normal 0 [facility] (Bld) [Entitic vol] [place] (07832) Comment: Performed By: #### PHOS, PTT , PT, CBC, MG1, BMP ####[place] [address] [place]Ce[place], [place] [phone] Platelets (Bld) [#/Vol] 103 150-400 k/uL Low 2019 [facility] (85568) Comment: Result Comment: Result check ed and verifiedNo clot detected. Performed By: #### PHOS, PTT , PT, CBC, MG1, BMP ####[facility] [address]C [place], [place] [phone] RBC (Bld) [#/Vol] 3.83 4.20-6.00 m/uL Low 04-26-2019 [facility] (52450) Comment: Performed By: #### PHOS, PTT , PT, CBC, MG1, BMP ####[facility]C [place]Ce[place], [place] [phone] WBC (Bld) [#/Vol] 3.80 3.70-11.00 k/uL Normal 04-26-2019 [facility] (05336) Comment: Performed By: #### PHOS, PTT , PT, CBC, MG1, BMP ####[facility]C levelandE[place], [place] [phone] brief op not on BRIEF OP NOT Normal 04-26-2019 [facility] (09867) basic metabolic panl on 2019-04-26 Anion gap [Moles/Vol] 13 9-18 mmol/L Normal 04-26-[address] [facility] (12078) Comment: Performed By: #### PHOS, PTT , PT, CBC, MG1, BMP ####[place] [address] [place], [place] [phone] Calcium [Mass/Vol] 9.7 8.5-10.2 mg/dL Normal 04-26-2019 [facility] (11083) Comment: Performed By: #### PHOS, PTT , PT, CBC, MG1, BMP ####[place] [address] [place], [place] [phone] Chloride [Moles/Vol] 97 97-105 mmol/L Normal 0 [facility] (64681) Comment: Performed By: #### PHOS, PTT , PT, CBC, MG1, BMP ####[facility]C levelCe[place], [place] [phone] CO2 [Moles/Vol] 26 22-30 mmol/L Normal 04-26-2019 [facility] (64568) Comment: Performed By: #### PHOS, PTT , PT, CBC, MG1, BMP ####[place] [address] levelandE[place], [place] [phone] Creatinine [Mass/Vol] 2.05 0.73-1.22 mg/dL High 04-26-[address] [facility] (28583) Comment: Performed By: #### PHOS, PTT , PT, CBC, MG1, BMP ####[facility]C levelandE[place], [place] [phone] eGFR- Amer. 39 Normal 04-26-2019 [facility] (70627) Comment: Performed By: #### PHOS, PTT , PT, CBC, MG1, BMP ####[facility] [address] [place], [place] [phone] GFR/1.73 sq M predicted among 32 . Normal 04-26-2019 [facility] non-blacks MDRD (S/P/Bld) [Vol (09892) rate/Area] Comment: Result Comment: eGFR (Estima pratik GFR) Units of measure: mL/min/1.73 meters squaredeGFR is derived from the reexpressed MDRD Study equation using the following parameters: serum creatinine, age, gender and race. The creatinine assay has been calibrated to be traceable to IDMS.An eGFR <60 mL/min/1.73m2 for >3 months is consistent with chronic kidney disease. Refer to KDOQI guidelines for clinical inte rpretation.In patients with unstable renal function, e.g. those with ac cowlitz kidney injury, the eGFR may not accurately reflect actual GFR. Performed By: #### PHOS, PTT , PT, CBC, MG1, BMP ####[facility] [address] [place], [place] [phone] Glucose [Mass/Vol] 123 74-99 mg/dL High 04-26-2019 [facility] (89778) Comment: Result Comment: The [place] [employer] (ADA) provides guidance for cutoff values for fastin g glucose and random glucose. The ADA defines fasting as no caloric intake for at least 8 hours. Fasting plasma glucose results between 100 to 125 m g/dL indicate increased risk for diabetes (prediabetes).Fasting plasma glucose results greater than or equal to 126 mg/dL meet the criteria for diagnosis of diabetes. In the absence of unequivocal hyperglycemia, r esults should be confirmed by repeat testing. In a patient with classic sympt oms of hyperglycemia or hyperglycemic crisis, random plasma glucose result s greater than or equal to 200 mg/dL meet the criteria for diagnosis of di abetes.Reference: Standards of Medical Care in Diabetes 2016, [place] Diab etes Association. Diabetes Care. 2016.39(Suppl 1). Performed By: #### PHOS, PTT , PT, CBC, MG1, BMP ####[place] [address]C [place], [place] [phone] Potassium [Moles/Vol] 4.0 3.7-5.1 mmol/L Normal 04-26-19 [facility] (76922) Comment: Performed By: #### PHOS, PTT , PT, CBC, MG1, BMP ####[place] [address] [place], [place] [phone] Sodium [Moles/Vol] 136 136-144 mmol/L Normal 04-26-2019 [facility] (26951) Comment: Performed By: #### PHOS, PTT , PT, CBC, MG1, BMP ####[place] [address] [place], [place] [phone] Urea nitrogen [Mass/Vol] 17 9-24 mg/dL Normal 04-25 [facility] (90105) Comment: Performed By: #### PHOS, PTT , PT, CBC, MG1, BMP ####[place] [address] [place], [place] [phone] aptt on 2019-04-26 aPTT Coag (Bld) [Time] 26.6 23.0-32.[address] [facility] (93875) Comment: Result Comment: Unfractionat ed Heparin Therapeutic Ranges:Standard Heparin Nomogram: 53 to 78 seconds ( anti-Xa level of 0.3 to 0.7 U/ml)Low Dose/ACS Nomogram: 49 to 67 seconds ( anti-Xa level of 0.2 to 0.5 U/ml)Stroke Treatment Nomogram: 49 to 67 seconds (anti-Xa level of 0.2 to 0.5 U/ml)Note: The APTT therapeutic range h as been determined for the current lot of laboratory APTT reagent in u se throughout the [facility]. Performed By: #### PHOS, PTT , PT, CBC, MG1, BMP ####[place] [address]C [place], [place] [phone] anes post on 3-09 ANES POST Normal 04-26-2019 [facility] (28181) progress on 2019-04 PROGRESS Normal 04-25-2019 [facility] (86347) plan of care on PLAN OF CARE Normal 04-25-2019 [facility] (52048) phosphorus on 04-24 Phosphate [Mass/Vol] 2.9 2.7-4.8 mg/dL Normal 0 [facility] (62517) Comment: Performed By: #### CBC, MG1, PHOS, BMP ####[place] [address]C[place] [address] [phone] magnesium on 04-24 Magnesium [Mass/Vol] 1.9 1.7-2.3 mg/dL Normal 0 [facility] (33731) Comment: Performed By: #### CBC, MG1, PHOS, BMP ####[facility] [address] [phone] cbc on 2019-04-25 Absolute nRBC <0.01 <0.01 Normal 04-25-2019 [facility] (16441) Comment: Performed By: #### CBC, MG1, PHOS, BMP ####[facility] [address] [phone] Erythrocyte distribution 15.1 11.5-15.0 % High 04-24 [facility] width (RBC) [Ratio] [place] (14328) Comment: Performed By: #### CBC, MG1, PHOS, BMP ####[facility] [place] [address] [phone] Hematocrit (Bld) [Volume 34.1 39.0-51.0 % Low 04-24 [facility] fraction] (79567) Comment: Performed By: #### CBC, MG1, PHOS, BMP ####[facility], [place] Hemoglobin (Bld) 11.6 13.0-17.0 g/dL Low 04-25-2019 [facility] [Mass/Vol] [place] (23176) Comment: Performed By: #### CBC, MG1, PHOS, BMP ####[address] Av[address] [place] [address] MCH (RBC) [Entitic mass] 33.4 26.0-34.0 pG Normal 04-24 [facility] (13017) Comment: Performed By: #### CBC, MG1, PHOS, BMP ####[address] AvJac[address] [place] [address] MCHC (RBC) [Mass/Vol] 34.0 30.5-36.0 g/dL Normal 04-25-[address] [facility] (93620) Comment: Performed By: #### CBC, MG1, PHOS, BMP ####[place] [address] MCV (RBC) [Entitic vol] 98.3 80.0-100.0 fL Normal 04-24 [facility] (71242) Comment: Performed By: #### CBC, MG1, PHOS, BMP ####[place] [address] Platelet mean volume 12.1 9.0-12.7 fL Normal 0 [facility] (Bld) [Entitic vol] [place] (70667) Comment: Performed By: #### CBC, MG1, PHOS, BMP ####[place] [address] Platelets (Bld) [#/Vol] 81 150-400 k/uL Low 2019 [facility] (56130) Comment: Result Comment: No clot dete cted. Performed By: #### CBC, MG1, PHOS, BMP ####[address] [place] [address] [phone] RBC (Bld) [#/Vol] 3.47 4.20-6.00 m/uL Low 04-25-2019 [facility] (26150) Comment: Performed By: #### CBC, MG1, PHOS, BMP ####[place] [address] [phone] WBC (Bld) [#/Vol] 3.34 3.70-11.00 k/uL Low 04-25-2019 [facility] (92542) Comment: Performed By: #### CBC, MG1, PHOS, BMP ####[place] [address] [phone] basic metabolic panl on 2019-04-25 Anion gap [Moles/Vol] 13 9-18 mmol/L Normal 04-25-[address] [facility] (96345) Comment: Performed By: #### CBC, MG1, PHOS, BMP ####[place] [address] [phone] Calcium [Mass/Vol] 9.2 8.5-10.2 mg/dL Normal 04-25-2019 [facility] (99242) Comment: Performed By: #### CBC, MG1, PHOS, BMP ####[place] [address] [phone] Chloride [Moles/Vol] 98 97-105 mmol/L Normal 0 [facility] (92884) Comment: Performed By: #### CBC, MG1, PHOS, BMP ####[place] [address] [phone] CO2 [Moles/Vol] 27 22-30 mmol/L Normal 04-25-2019 [facility] (06676) Comment: Performed By: #### CBC, MG1, PHOS, BMP ####[place] [address] [place] [address] [phone] Creatinine [Mass/Vol] 2.04 0.73-1.22 mg/dL High 04-25-[address] [facility] (34605) Comment: Performed By: #### CBC, MG1, PHOS, BMP ####[facility] [address] [place] [address] [phone] eGFR- Amer. 39 Normal 04-25-2019 [facility] (21856) Comment: Performed By: #### CBC, MG1, PHOS, BMP ####[facility] [address] [place] [address] [phone] GFR/1.73 sq M predicted among 32 . Normal 04-25-2019 [facility] non-blacks MDRD (S/P/Bld) [Vol (61684) rate/Area] Comment: Result Comment: eGFR (Estima pratik GFR) Units of measure: mL/min/1.73 meters squaredeGFR is derived from the reexpressed MDRD Study equation using the following parameters: serum creatinine, age, gender and race. The creatinine assay has been calibrated to be traceable to IDMS.An eGFR <60 mL/min/1.73m2 for >3 months is consistent with chronic kidney disease. Refer to KDOQI guidelines for clinical inte rpretation.In patients with unstable renal function, e.g. those with ac cowlitz kidney injury, the eGFR may not accurately reflect actual GFR. Performed By: #### CBC, MG1, PHOS, BMP ####[facility] [address] [place] [address] [phone] Glucose [Mass/Vol] 125 74-99 mg/dL High 04-25-2019 [facility] (91692) Comment: Result Comment: The [place] Diabetes Association (ADA) provides guidance for cutoff values for fastin g glucose and random glucose. The ADA defines fasting as no caloric intake for at least 8 hours. Fasting plasma glucose results between 100 to 125 m g/dL indicate increased risk for diabetes (prediabetes).Fasting plasma glucose results greater than or equal to 126 mg/dL meet the criteria for diagnosis of diabetes. In the absence of unequivocal hyperglycemia, r esults should be confirmed by repeat testing. In a patient with classic sympt oms of hyperglycemia or hyperglycemic crisis, random plasma glucose result s greater than or equal to 200 mg/dL meet the criteria for diagnosis of di abetes.Reference: Standards of Medical Care in Diabetes 2016, [place] Diab etes Association. Diabetes Care. 2016.39(Suppl 1). Performed By: #### CBC, MG1, PHOS, BMP ####[place] [address] [place] [address] [phone] Potassium [Moles/Vol] 4.4 3.7-5.1 mmol/L Normal 04-25-19 [facility] (56101) Comment: Performed By: #### CBC, MG1, PHOS, BMP ####[place] [address] [place] [address] [phone] Sodium [Moles/Vol] 138 136-144 mmol/L Normal 04-25-2019 [facility] (23486) Comment: Performed By: #### CBC, MG1, PHOS, BMP ####[place] [address] [place] [address] [phone] Urea nitrogen [Mass/Vol] 19 9-24 mg/dL Normal 04-24 [facility] (63246) Comment: Performed By: #### CBC, MG1, PHOS, BMP ####[place] [address] [place] [address] [phone] transferrin on 2019 Transferrin [Mass/Vol] 236 200-360 mg/dL Normal 020 [facility] (71173) Comment: Performed By: #### TRANSF, C BC, PREALB, PHOS, MG1, BMP, ALB ####[place] [address] [place], [place] [phone] progress on 2019-04 PROGRESS Normal 04-24-2019 [facility] (96091) prealbumin on 04-23 Prealbumin [Mass/Vol] 17 17-36 mg/dL Normal 04-24-19 [facility] (15785) Comment: Performed By: #### TRANSF, C BC, PREALB, PHOS, MG1, BMP, ALB ####[facility] [address]ClevelCe[place], [place] [phone] plan of care on PLAN OF CARE Normal 04-24-2019 [facility] (58377) PLAN OF CARE Normal 04-24-2019 [facility] (82453) phosphorus on 04-23 Phosphate [Mass/Vol] 3.3 2.7-4.8 mg/dL Normal 0 [facility] (21657) Comment: Performed By: #### TRANSF, C BC, PREALB, PHOS, MG1, BMP, ALB ####[facility] [address]CHam[place], [place] [phone] magnesium on 04-23 Magnesium [Mass/Vol] 1.5 1.7-2.3 mg/dL Low 0 [facility] (60158) Comment: Performed By: #### TRANSF, C BC, PREALB, PHOS, MG1, BMP, ALB ####[facility] [address]CH[place], [place] [phone] cbc on 2019-04-24 Absolute nRBC <0.01 <0.01 Normal 04-24-2019 [facility] (88927) Comment: Performed By: #### TRANSF, C BC, PREALB, PHOS, MG1, BMP, ALB ####[facility] [address]CH[place], [place] [phone] Erythrocyte distribution 15.7 11.5-15.0 % High 04-23 [facility] width (RBC) [Ratio] [place] (43793) Comment: Performed By: #### TRANSF, C BC, PREALB, PHOS, MG1, BMP, ALB ####[facility] [address]CH[place], [place] [phone] Hematocrit (Bld) [Volume 35.2 39.0-51.0 % Low 04-23 [facility] fraction] (17868) Comment: Performed By: #### TRANSF, C BC, PREALB, PHOS, MG1, BMP, ALB ####[facility] [address]CH[place], [place] [phone] Hemoglobin (Bld) 11.6 13.0-17.0 g/dL Low 04-24-2019 [facility] [Mass/Vol] [place] (55803) Comment: Performed By: #### TRANSF, C BC, PREALB, PHOS, MG1, BMP, ALB ####[place] [address], [place] [phone] MCH (RBC) [Entitic mass] 32.8 26.0-34.0 pG Normal 04-23 [facility] (20763) Comment: Performed By: #### TRANSF, C BC, PREALB, PHOS, MG1, BMP, ALB ####[facility], [place] [phone] MCHC (RBC) [Mass/Vol] 33.0 30.5-36.0 g/dL Normal 04-24-[address] [facility] (00503) Comment: Performed By: #### TRANSF, C BC, PREALB, PHOS, MG1, BMP, ALB ####[facility], [place] [phone] MCV (RBC) [Entitic vol] 99.4 80.0-100.0 fL Normal 04-23 [facility] ([id number]) Comment: Performed By: #### TRANSF, C BC, PREALB, PHOS, MG1, BMP, ALB ####[facility], [place] [phone] Platelet mean volume 11.7 9.0-12.7 fL Normal 0 [facility] (Bld) [Entitic vol] [place] ([id number]) Comment: Performed By: #### TRANSF, C BC, PREALB, PHOS, MG1, BMP, ALB ####[facility] [address], [place] [phone] Platelets (Bld) [#/Vol] 100 150-400 k/uL Low 2019 [facility] ([id number]) Comment: Result Comment: No clot dete cted. Performed By: #### TRANSF, C BC, PREALB, PHOS, MG1, BMP, ALB ####[facility], [place] [phone] RBC (Bld) [#/Vol] 3.54 4.20-6.00 m/uL Low 04-24-2019 [facility] ([id number]) Comment: Performed By: #### TRANSF, C BC, PREALB, PHOS, MG1, BMP, ALB ####[place] [address], [place] [phone] WBC (Bld) [#/Vol] 5.70 3.70-11.00 k/uL Normal 04-24-2019 [facility] ([id number]) Comment: Performed By: #### TRANSF, C BC, PREALB, PHOS, MG1, BMP, ALB ####[facility], [place] [phone] basic metabolic panl on 2019-04-24 Anion gap [Moles/Vol] 14 9-18 mmol/L Normal 04-24-19 [facility] ([id number]) Comment: Performed By: #### TRANSF, C BC, PREALB, PHOS, MG1, BMP, ALB ####[facility], [place] [phone] Calcium [Mass/Vol] 9.3 8.5-10.2 mg/dL Normal 04-24-2019 [facility] ([id number]) Comment: Performed By: #### TRANSF, C BC, PREALB, PHOS, MG1, BMP, ALB ####[facility] [address], [place] [phone] Chloride [Moles/Vol] 96 97-105 mmol/L Low 0 [facility] (69073) Comment: Performed By: #### TRANSF, C BC, PREALB, PHOS, MG1, BMP, ALB ####[facility], [place] [phone] CO2 [Moles/Vol] 25 22-30 mmol/L Normal 04-24-2019 [facility] ([id number]) Comment: Performed By: #### TRANSF, C BC, PREALB, PHOS, MG1, BMP, ALB ####[facility], [place] [phone] Creatinine [Mass/Vol] 1.96 0.73-1.22 mg/dL High 04-24-[address] [facility] (15992) Comment: Performed By: #### TRANSF, C BC, PREALB, PHOS, MG1, BMP, ALB ####[facility], [place] [phone] eGFR- Amer. 41 Normal 04-24-2019 [facility] (15268) Comment: Performed By: #### TRANSF, C BC, PREALB, PHOS, MG1, BMP, ALB ####[place] [id number] [place], [place] [phone] GFR/1.73 sq M predicted among 34 . Normal 04-24-2019 [facility] non-blacks MDRD (S/P/Bld) [Vol (33969) rate/Area] Comment: Result Comment: eGFR (Estima pratik GFR) Units of measure: mL/min/1.73 meters squaredeGFR is derived from the reexpressed MDRD Study equation using the following parameters: serum creatinine, age, gender and race. The creatinine assay has been calibrated to be traceable to IDMS.An eGFR <60 mL/min/1.73m2 for >3 months is consistent with chronic kidney disease. Refer to KDOQI guidelines for clinical inte rpretation.In patients with unstable renal function, e.g. those with ac cowlitz kidney injury, the eGFR may not accurately reflect actual GFR. Performed By: #### TRANSF, C BC, PREALB, PHOS, MG1, BMP, ALB ####[facility] [place], [place] [phone] Glucose [Mass/Vol] 132 74-99 mg/dL High 04-24-2019 [facility] (61086) Comment: Result Comment: The [place] Diabetes Association (ADA) provides guidance for cutoff values for fastin g glucose and random glucose. The ADA defines fasting as no caloric intake for at least 8 hours. Fasting plasma glucose results between 100 to 125 m g/dL indicate increased risk for diabetes (prediabetes).Fasting plasma glucose results greater than or equal to 126 mg/dL meet the criteria for diagnosis of diabetes. In the absence of unequivocal hyperglycemia, r esults should be confirmed by repeat testing. In a patient with classic sympt oms of hyperglycemia or hyperglycemic crisis, random plasma glucose result s greater than or equal to 200 mg/dL meet the criteria for diagnosis of di abetes.Reference: Standards of Medical Care in Diabetes 2016, [place] Diab etes Association. Diabetes Care. 2016.39(Suppl 1). Performed By: #### TRANSF, C BC, PREALB, PHOS, MG1, BMP, ALB ####[facility] [place], [place] [phone] Potassium [Moles/Vol] 4.1 3.7-5.1 mmol/L Normal 04-24-19 [facility] ([id number]) Comment: Performed By: #### TRANSF, C BC, PREALB, PHOS, MG1, BMP, ALB ####[facility] [address], [place] [phone] Sodium [Moles/Vol] 135 136-144 mmol/L Low 04-24-2019 [facility] (82605) Comment: Performed By: #### TRANSF, C BC, PREALB, PHOS, MG1, BMP, ALB ####[facility] [address], [place] [phone] Urea nitrogen [Mass/Vol] 20 9-24 mg/dL Normal 04-23 [facility] (01458) Comment: Performed By: #### TRANSF, C BC, PREALB, PHOS, MG1, BMP, ALB ####[facility], [place] [phone] anes preop on 04-23 ANES PREOP Normal 04-24-2019 [facility] (36683) albumin on Albumin [Mass/Vol] 3.4 3.9-4.9 g/dL Low 04-24-2019 [facility] ([id number]) Comment: Performed By: #### TRANSF, C BC, PREALB, PHOS, MG1, BMP, ALB ####[facility] [place], [place] [phone] xr chest 1v frontal port on 2019-04-23 XR CHEST 1V FRONTAL PORT Normal 04-22 [facility] ([id number]) type and screen on 2019-04-23 ABO/RH(D) O POSITIVE Normal 04-23-2019 [facility] ([id number]) Comment: Performed By: #### TSCR #### [facility] [place], [place] [phone] protime on PT Coag (PPP) [Time] 1.1 0.9-1.[address] [facility] (11929) Comment: Result Comment: Vitamin K An tagonist (VKA) Therapeutic Range: INR 2 to 3 (Target INR of 2.5)Note: For patients treated with VKA drugs, such as warfarin, the [place] [employer] of Chest Physicians 2012 Guideline recommends a therapeutic INR range of 2 to 3 (target INR of 2.5). This recommendation includes high-risk patients with antiphospholipid syndrome with previous arterial or venous thromboem bolism, current-generation mechanical or bioprosthetic aortic heart v alve replacement.Note: Patients with mechanical aortic valve replacement and additional risk factors for thromboembolic events (atrial fibrillation, previous thromboembolism, LV dysfunction, hypercoagulable conditions) or an older generation mechanical AVR (i.e., ball in-Cage) or any mechani veronika MVR should have a INR therapeutic range of 2.5 to 3.5 (target INR of 3) .Sawyer EDMONDSON, et al. Chest 2012, 141:7S-47SKathy BRITO et flo medrano. [facility] 2017, 70: 252-289 Performed By: #### BMP, PTT, PT, PHOS, MG1, CBC ####[facility] [address] [place], [place] [phone] PT Coag (PPP) [Time] 11.5 9.7-13.[address] [facility] (47894) Comment: Performed By: #### BMP, PTT, PT, PHOS, MG1, CBC ####[facility] [address] [place], [place] [phone] progress on 2019-04 PROGRESS Normal 04-23-2019 [facility] (15129) PROGRESS Normal 04-23-2019 [facility] (86514) phosphorus on 04-22 Phosphate [Mass/Vol] 3.7 2.7-4.8 mg/dL Normal 0 [facility] (93688) Comment: Performed By: #### BMP, PTT, PT, PHOS, MG1, CBC ####[place] [address] [place], [place] [phone] mri pel enterog wo/w ivcon on 2019-04-23 MRI PEL ENTEROG WO/W IVCON Normal [facility] (67991) mri abd enterog wo/w ivcon on 2019-04-23 MRI ABD ENTEROG WO/W IVCON Normal [facility] (35627) magnesium on 04-22 Magnesium [Mass/Vol] 1.7 1.7-2.3 mg/dL Normal 0 [facility] (02872) Comment: Performed By: #### BMP, PTT, PT, PHOS, MG1, CBC ####[facility] [place], [place] [phone] lipase on 6 Lipase [Catalytic 21 16-61 U/L Normal 04-23-2019 [facility] activity/Vol] [facility] (45754) Comment: Performed By: #### LIPA #### [place] [address] [place] [phone] history physical on 2019-04-23 HISTORY PHYSICAL Normal 04-23-2019 [facility] ([id number]) ecg complete on ECG COMPLETE Normal 04-23-2019 [facility] (43278) consult on CONSULT Normal 04-23-2019 [facility] (98534) cbc on 2019-04-23 Absolute nRBC <0.01 <0.01 Normal 04-23-2019 [facility] (55883) Comment: Performed By: #### BMP, PTT, PT, PHOS, MG1, CBC ####[address] [place] [phone] Erythrocyte distribution 15.9 11.5-15.0 % High 04-22 [facility] width (RBC) [Ratio] [place] (46937) Comment: Performed By: #### BMP, PTT, PT, PHOS, MG1, CBC ####[address] [place] [phone] Hematocrit (Bld) [Volume 37.3 39.0-51.0 % Low 04-22 [facility] fraction] (75265) Comment: Performed By: #### BMP, PTT, PT, PHOS, MG1, CBC ####[place] [address] [place], [place] [phone] Hemoglobin (Bld) 12.4 13.0-17.0 g/dL Low 04-23-2019 [facility] [Mass/Vol] [place] (42068) Comment: Performed By: #### BMP, PTT, PT, PHOS, MG1, CBC ####[facility] [place], [place] [phone] MCH (RBC) [Entitic mass] 32.9 26.0-34.0 pG Normal 04-22 [facility] (78863) Comment: Performed By: #### BMP, PTT, PT, PHOS, MG1, CBC ####[place] [address], [place] [phone] MCHC (RBC) [Mass/Vol] 33.2 30.5-36.0 g/dL Normal 04-23-[address] [facility] (21358) Comment: Performed By: #### BMP, PTT, PT, PHOS, MG1, CBC ####[place] [address], [place] [phone] MCV (RBC) [Entitic vol] 98.9 80.0-100.0 fL Normal 04-22 [facility] (14354) Comment: Performed By: #### BMP, PTT, PT, PHOS, MG1, CBC ####[place] [address], [place] [phone] Platelet mean volume 11.6 9.0-12.7 fL Normal 0 [facility] (Bld) [Entitic vol] [place] (89429) Comment: Performed By: #### BMP, PTT, PT, PHOS, MG1, CBC ####[place] [address] [place], [place] [phone] Platelets (Bld) [#/Vol] 106 150-400 k/uL Low 2019 [facility] (14451) Comment: Performed By: #### BMP, PTT, PT, PHOS, MG1, CBC ####[place] [address] [place], [place] [phone] RBC (Bld) [#/Vol] 3.77 4.20-6.00 m/uL Low 04-23-2019 [facility] (74161) Comment: Performed By: #### BMP, PTT, PT, PHOS, MG1, CBC ####[facility] [address] [place], [place] [phone] WBC (Bld) [#/Vol] 5.86 3.70-11.00 k/uL Normal 04-23-2019 [facility] (62477) Comment: Performed By: #### BMP, PTT, PT, PHOS, MG1, CBC ####[place] [address] [place], [place] [phone] case mgt init asses on 2019-04-23 CASE MGT INIT ASSES Normal 04-23-2019 [facility] (52699) basic metabolic panl on 2019-04-23 Anion gap [Moles/Vol] 13 9-18 mmol/L Normal 04-23-[address] [facility] (62110) Comment: Performed By: #### BMP, PTT, PT, PHOS, MG1, CBC ####[place] [address] [place], [place] [phone] Calcium [Mass/Vol] 9.2 8.5-10.2 mg/dL Normal 04-23-2019 [facility] (95973) Comment: Performed By: #### BMP, PTT, PT, PHOS, MG1, CBC ####[place] [address] [place], [place] [phone] Chloride [Moles/Vol] 102 97-105 mmol/L Normal 0 [facility] (12597) Comment: Performed By: #### BMP, PTT, PT, PHOS, MG1, CBC ####[facility] [place], [place] [phone] CO2 [Moles/Vol] 25 22-30 mmol/L Normal 04-23-2019 [facility] (31053) Comment: Performed By: #### BMP, PTT, PT, PHOS, MG1, CBC ####[facility] [address] [place], [place] [phone] Creatinine [Mass/Vol] 1.87 0.73-1.22 mg/dL High 04-23-[address] [facility] (79256) Comment: Performed By: #### BMP, PTT, PT, PHOS, MG1, CBC ####[facility] [address] [place], [place] [phone] eGFR- Amer. 43 Normal 04-23-2019 [facility] (82407) Comment: Performed By: #### BMP, PTT, PT, PHOS, MG1, CBC ####[facility] [address] [place], [place] [phone] GFR/1.73 sq M predicted among 36 . Normal 04-23-2019 [facility] non-blacks MDRD (S/P/Bld) [Vol (81116) rate/Area] Comment: Result Comment: eGFR (Estima pratik GFR) Units of measure: mL/min/1.73 meters squaredeGFR is derived from the reexpressed MDRD Study equation using the following parameters: serum creatinine, age, gender and race. The creatinine assay has been calibrated to be traceable to IDMS.An eGFR <60 mL/min/1.73m2 for >3 months is consistent with chronic kidney disease. Refer to KDOQI guidelines for clinical inte rpretation.In patients with unstable renal function, e.g. those with ac cowlitz kidney injury, the eGFR may not accurately reflect actual GFR. Performed By: #### BMP, PTT, PT, PHOS, MG1, CBC ####[facility] [address] [place], [place] [phone] Glucose [Mass/Vol] 130 74-99 mg/dL High 04-23-2019 [facility] (94172) Comment: Result Comment: The [place] Diabetes Association (ADA) provides guidance for cutoff values for fastin g glucose and random glucose. The ADA defines fasting as no caloric intake for at least 8 hours. Fasting plasma glucose results between 100 to 125 m g/dL indicate increased risk for diabetes (prediabetes).Fasting plasma glucose results greater than or equal to 126 mg/dL meet the criteria for diagnosis of diabetes. In the absence of unequivocal hyperglycemia, r esults should be confirmed by repeat testing. In a patient with classic sympt oms of hyperglycemia or hyperglycemic crisis, random plasma glucose result s greater than or equal to 200 mg/dL meet the criteria for diagnosis of di abetes.Reference: Standards of Medical Care in Diabetes 2016, [place] Diab etes Association. Diabetes Care. 2016.39(Suppl 1). Performed By: #### BMP, PTT, PT, PHOS, MG1, CBC ####[facility] [place], [place] [phone] Potassium [Moles/Vol] 4.4 3.7-5.1 mmol/L Normal 04-23-19 [facility] (10959) Comment: Performed By: #### BMP, PTT, PT, PHOS, MG1, CBC ####[place] [address] [place], [place] [phone] Sodium [Moles/Vol] 140 136-144 mmol/L Normal 04-23-2019 [facility] (86745) Comment: Performed By: #### BMP, PTT, PT, PHOS, MG1, CBC ####[facility] [address] [place], [place] [phone] Urea nitrogen [Mass/Vol] 18 9-24 mg/dL Normal 04-22 [facility] (62792) Comment: Performed By: #### BMP, PTT, PT, PHOS, MG1, CBC ####[facility] [place], [place] [phone] aptt on 2019-04-23 aPTT Coag (Bld) [Time] 24.6 23.0-32.[address] [facility] (22242) Comment: Result Comment: Unfractionat ed Heparin Therapeutic Ranges:Standard Heparin Nomogram: 53 to 78 seconds ( anti-Xa level of 0.3 to 0.7 U/ml)Low Dose/ACS Nomogram: 49 to 67 seconds ( anti-Xa level of 0.2 to 0.5 U/ml)Stroke Treatment Nomogram: 49 to 67 seconds (anti-Xa level of 0.2 to 0.5 U/ml)Note: The APTT therapeutic range h as been determined for the current lot of laboratory APTT reagent in u se throughout the [facility]. Performed By: #### BMP, PTT, PT, PHOS, MG1, CBC ####[facility] [address] [place], [place] [phone] allied health on 06-05-05 [facility] Normal 04-23-2019 [facility] ([id number]) [facility] Normal 04-23-2019 [facility] ([id number]) xr acute abd series 2v abd+cxr on 2019-04-22 XR ACUTE ABD * * *Final Report* * * Normal [facility] SERIES 2V DATE OF EXAM: Apr 22 2019 6:20PM ([id number]) ABD+CXR MDX 5359 - XR ACUTE ABD SERIES 2V ABD+CXR / [id number] PROCEDURE REASON: Abd distension * * * * Physician Interpretation * * * * ACUTE ABDOMINAL SERIES HISTORY: 69 years old Clinical information: Abd distension Patient states abdominal pain and distension. TECHNIQUE: Images: XR ACUTE ABD SERIES 2V ABD+CXR Comparison: 03/20/2019. RESULT: Findings: No confluent infiltrate, effusion, or pneumothorax identifie d. Cardiac and mediastinal silhouettes are within normal limits. Imaged bowel gas pattern is nonobstructed. Gas is seen in th e colon. No free air is seen. IMPRESSION: No evidence of bowel obstruction. No acute cardiopulmonary disease identified. [facility] Transcribe Date/Time: Apr 22 2019 6:40P Dictated by : LONNIE CHENG MD This examination was interpreted and the report reviewed and electronically signed by: LONNIE CHENG MD on Apr 22 2019 6:41PM EST [id number] sepsis lactate on 2 Sepsis Lactate 2.8 0.5-2.0 mmol/L High 04-22-2019 [facility] (63143) Comment: Result Comment: No call per procedure. 04/22/191956 Concha Curry Performed By: #### CBCDIF, P T, PTT, CK, CMP, LIPA, MG1 #### [facility] [address] [facility] [phone] nursing prog on NURSING PROG Normal 04-22-2019 [facility] ([id number]) hosp on 2019-04-22 HOSP Normal 04-22-2019 [facility] ([id number]) ed prov note on ED PROV HNO ID: [id number] Normal 04-22-2019 Hu NOTE Author: Prachi Gillis MD Hospital Service: ? ([id number]) Author Type: Physician Type: ED Provider Notes Filed: 04/22/2019 9:36 PM Note Text: ED Provider Note Patient Name: Venkata Leal SERVICE DATE: 04/22/19 History Patient presents with: Abdominal Pain: to have surgery Friday HPI- patient is a 69-year-old white male with a past medical history of Crohn's and small bowel obstructions complains of a one to 2 month history of abdominal pain that is growing acutely worse today. She h as had multiple workups for this and was scheduled to have a bowel resection in the next week. He was told if the pain gets worse to report to emergency department and he has done so today. He has had no fevers or chills nausea but no vomiting he has not eaten today other than to take 2 pain pills earlier in the day. Had a very small bowel movement ap proximately 3:30 this afternoon. 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 - Chronic pain 10/19/2015 - CKD (chronic kidney disease) stage 3, GFR 30-59 ml/min (HC C) bland UA, baseline Cr in high 1 range - Cognitive impairment 04/22/2014 MOCA (04/2014) 30 - Colon stricture (HCC) 11/12/2018 - Coronary atherosclerosis of unspecified type of vessel, na tive or graft PCI - 1998 - Crohn's disease (HCC) 11/23/2018 - Depression 11/23/2018 - Diarrhea - DUODENITIS - NO HEMORRHAGE 10/24/2006 - Enthesopathy of hip region 06/17/2008 - Esophageal reflux - Essential hypertension - Family history of ischemic heart disease 04/16/2016 - GASTRITIS ANTRAL( W/O Hemorrhage) 10/24/2006 - GERD (gastroesophageal reflux disease) GERD - History of bladder cancer 11/23/2018 - Hydrocele sac 10/17/2014 - Hypothyroidism - IBS (irritable bowel syndrome) 03/06/2010 - Impingement syndrome of right shoulder 03/01/2015 - Incisional hernia 08/31/2012 - Incomplete tear of right rotator cuff 08/01/2015 - Insomnia 11/24/2018 - Internal hemorrhoids without mention of complication - Intervertebral disc disorder with radiculopathy of lumbar region 05/28/2017 - Iron deficiency anemia 01/12/2019 - Irritable bowel syndrome - Lipoma of other specified sites - Mesenteric mass - GOMEZ (nonalcoholic steatohepatitis) cirrhosis on liver biopsy - Neuroendocrine malignancy (HCC) 10/17/2014 - Obesity, Class I, BMI 30-34.9 11/24/2018 - ALEXIS (obstructive sleep apnea) DME [employer] BiPAP - Oxygen order for 02 bleed in DME is [facility] - Other and unspecified hyperlipidemia - Pancreatic insufficiency - Peripheral vascular disease, unspecified (HCC) 01/31/2005 stents in the lower extremities b/l - Physical deconditioning 03/30/2018 - Radiculopathy, lumbar region 10/28/2005 - S/P primary angioplasty with coronary stent PCI - 1998 - Sciatica 11/08/2005 - 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 - 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 - Spermatocele 10/17/2014 - Spinal stenosis 10/28/2005 - Stroke (HCC) 2008 TIA-questionable diagnosis - Testalgia 10/03/2014 - Tinnitus, right 03/06/2010 - Type 2 diabetes mellitus with complication (HCC) 6 - Unspecified essential hypertension - Urinary hesitancy 04/22/2014 - Vitamin B12 deficiency - Vitamin D deficiency PAST SURGICAL HISTORY Procedure Laterality Date - APPENDECTOMY 1970 - BALLN ANGIOPLASTY PERC,FEM-POP 1997 - BALLN ANGIOPLASTY PERC,FEM-POP 09/24/06 - CATHETER ART SYS-1ST ORD, ABDOM, PELVIC, OR LOWER 1997 - CATHETER ART SYS-1ST ORD, ABDOM, PELVIC, OR LOWER 1997 with stent - CATHETER ART SYS-1ST ORD, ABDOM, PELVIC, OR LOWER 09/24/06 - COLONOSCOP W/ OR W/O BRSH SPEC 05/30/2004 Colonoscopy - COLONOSCOP W/ OR W/O BRSH SPEC 05/18/14 Colonoscopy - EGD W/O BRSH SPECIMEN W/BX 10/24/06 Esophagiti,gastritis,duodenitis - EGD W/O OR W/BRUSH/WASH 10/26/1998 EGD - HEART SURGERY HX Stent 1995 - KNEE SCOPE,DIAGNOSTIC Right 2003 Arthroscopy, knee - LAP INC HERNIA REPAIR 09-29-12 - LAPAROSCOPIC CHOLEYCYSTECTOMY Cholecystectomy, lap - PAST SURGICAL HISTORY OF 12-08-10 small bowel resection [facility] main - cancerious - PAST SURGICAL HISTORY OF 06/19/2015 Left eye cataract surgery - REMOVAL OF TONSILS,<12 Y/O Tonsillectomy - REPAIR COMPL ROTATOR CUFF AVULSN,CHR Right 09/06/15 Subacromial decompression, rotator cuff repair, and labral d ebridement - REPAIR ING HERNIA,5+Y/O,REDUCIBL Hernia repair, inguinal lt FAMILY HISTORY Problem Relation Age of Onset - Diabetes Mother - other (Uterine cancer) Mother - Heart Father [place] - Hypertension Father - Heart Sister 60age - Stroke Sister - Diabetes Sister 65age - other (fibromyalgia) Sister x 4 , 2 sisters with kidney disease - Diabetes Sister oral meds Social History Tobacco Use - Smoking status: Former Smoker Packs/day: 1.00 Years: 35.00 Pack years: 35.00 Types: Cigarettes Start date: 02/17/1971 Last attempt to quit: 02/17/2006 Years since quittin.1 - Smokeless tobacco: Never Used Substance and Sexual Activity - Alcohol use: No Alcohol/week: 1.7 standard drinks Frequency: Never Drinks per session: Patient refused Binge frequency: Never - Drug use: No - Sexual activity: Yes Partners: Female ALLERGIES Allergen Reactions - Lipitor [Atorvastat* Intolerance myalgias - Zocor [Simvastatin] Intolerance myalgias - Novacain [Other] Intolerance Headache when it wears off - Lescol [Fluvastatin* Intolerance myalgia Review of Systems Constitutional: Positive for appetite change. Negative for a ctivity change, diaphoresis and fever. HENT: Negative for congestion, ear pain, rhinorrhea and sore throat. Eyes: Negative for photophobia and visual disturbance. Respiratory: Negative for cough, shortness of breath and whe ezing. Cardiovascular: Negative for chest pain. Gastrointestinal: Positive for abdominal distention, abdomin al pain and nausea. Negative for diarrhea and vomiting. Genitourinary: Negative for dysuria. Musculoskeletal: Negative for arthralgias. Skin: Negative for rash. Neurological: Negative for dizziness, syncope and headaches. Hematological: Negative for adenopathy. Psychiatric/Behavioral: Negative for agitation. All other systems reviewed and are negative. Physical Exam BP 145/77 Pulse 76 Temp (Src) 97 (Temporal) Resp 18 Wt 218 lb (98.9kg) SpO2 94% O2 Therapy: Room Air Physical Exam Vitals signs and nursing note reviewed. Constitutional: Appearance: He is well-developed. He is obese. HENT: Head: Normocephalic and atraumatic. Mouth/Throat: Mouth: Mucous membranes are moist. Cardiovascular: Rate and Rhythm: Normal rate and regular rhythm. Heart sounds: Normal heart sounds. Pulmonary: Effort: Pulmonary effort is normal. Breath sounds: Normal breath sounds. Abdominal: General: There is distension. There is no abdominal bruit. Palpations: Abdomen is soft. There is no shifting dullness. Tenderness: There is abdominal tenderness in the left upper quadrant. There is rebound. There is no left CVA tenderness. Hernia: No hernia is present. Comments: Tender left mid upper quadrants. He has tinkling-l cristian bowel sounds. Skin: General: Skin is warm and dry. Neurological: General: No focal deficit present. Mental Status: He is alert. Diagnostic Testing ED Labs Ordered and Reviewed COMP METABOLIC PANEL - Abnormal; Notable for the following c omponents: Result Value Ref Range Protein, Total 8.1 (*) 6.3 - 8.0 g/dL Calcium 10.5 (*) 8.5 - 10.2 mg/dL Alkaline Phosphatase 145 (*) 38 - 113 U/L Glucose 143 (*) 74 - 99 mg/dL Creatinine 1.95 (*) 0.73 - 1.22 mg/dL CO2 21 (*) 22 - 30 mmol/L All other components within normal limits CBC + DIFF - Abnormal; Notable for the following components: RDW-CV 15.8 (*) 11.5 - 15.0 % Abs Zapata 0.91 (*) <0.87 k/uL All other components within normal limits SEPSIS LACTATE (HU) - Abnormal; Notable for the followin g components: Sepsis Lactate 2.8 (*) 0.5 - 2.0 mmol/L All other components within normal limits URINALYSIS XR ACUTE ABD SERIES 3V (2V ABD/1V CXR) Final Result IMPRESSION: No evidence of bowel obstruction. No acute cardiopulmonary disease identified. [facility] Transcribe Date/Time: Apr 22 2019 6:40P Dictated by : LONNIE CHENG MD This examination was interpreted and the report reviewed and electronically signed by: LONNIE CHENG MD on Apr 22 2019 6:41PM EST Procedures ED Course / Clinical Impression Clinical Impressions as of Apr 21 2134 Generalized abdominal pain Crohn's disease of both small and large intestine with intes tinal obstruction (HCC) MDM / Disposition / Plan Patient is 69-year-old white male with past medical history of Crohn's disease and multiple bowel obstructions who was scheduled to have another resection next week. His pain and nausea became worse and pr esented today. 90 was started he was given a milligram of Dilaudid f or his pain and 4 mg of Zofran IV for pain. CBC was done which was withi n normal limits. Chemistry showed a glucose of 143. His creatinine was 1.95. A flat and upright of the abdomen are ordered and pending. I spoke with who is the surgeon on-call at [facility] who is aware the patient's condition will accept him in transfer. Plain films of the abdomen did not show any evidence for bow el obstruction. Pt. pain is controlled be transferred in stable condition Pt. Transferred to [facility] in stable condition Condition at time of disposition: stable SIGNATURE: Kary Quevedo, JON Quevedo (Pa) 04/22/19 0501 Attending Note I have personally performed a face to face assessment of the patient and have reviewed the PA/DENIAL RESOLUTION SPECIALIST note. My harman findings include: History is patient is a 69-year-old male coming in with abdo taz pain. The patient has Crohn's disease and significant complication he is scheduled to have a resection in 10 days. He was advised to come to the emergency department with any worsening symptoms or concerns he is following with Dr. Teixeira at [facility]. He has some nausea but no vomiting today denies any abdominal pain he describes upper abdominal pain that is constant since today. He stated to oxycodone but christel t is not relieved his symptoms. Exam is patient is sitting at the edge of the bed in moderat e discomfort heart is regular lungs are clear and equal bilaterally abdom en is diffusely tender worse in the upper regions he has voluntary guarding no rebound. Assessment/Plan are due to the comp locations of the patient 's in reviewing of the last CAT scans there is concerns for obstru ction and needs for resection we spoke with surgery at [facility]. Wh ite blood cell count is normal at 8. Creatinine is 1.95. Acute abdomin al series shows no evidence of bowel obstructions no acute cardiopulmo nary disease. Due to the amount of pain that the patient is in as well as previous CAT scans I feel the patient needs admitted to [facility]. [facility] had arrived and was taking the patient to [facility] when his l actic acid returned was 2.8. PA did call [facility] to make aware that the lactate was 2.8 he had received some IV fluids here but does need to continue to be monitored. He is not septic at this time. Other additions or changes: None Signature: Prachi Gillis MD Date: 04/22/2019 Time: 9:30 PM Prachi Gillis MD 04/22/19 0696 ed note on ED NOTE HNO ID: [id number] Normal 04-22-2019 [facility] ([id number]) Author: Kaylee (Rn) HITESH Correa Service: ? Author Type: Registered Nurse Type: ED Notes Filed: 04/22/2019 7:26 PM Note Text: Assume care of pt at this time. Pt resting comfortable in be d with family at bedside. Pt updated on plan of care ED NOTE HNO ID: [id number] Normal 04-22-2019 [facility] ([id number]) Author: Mya (Rn) HITESH Triana Service: ? Author Type: Registered Nurse Type: ED Notes Filed: 04/22/2019 6:55 PM Note Text: Patient resting in bed with at bed side. Stated he feel s much better. He appears more comfortable. ED NOTE HNO ID: [id number] Normal 04-22-2019 [facility] ([id number]) Author: Edith (Rn) HITESH Zeng Service: Nursing Author Type: Registered Nurse Type: ED Notes Filed: 04/22/2019 5:15 PM Note Text: Pt presents to ED with c/o abdominal pain. Pt states he's to have surgery next Friday for a bowel resection. Surgeon advised them to c ome to ER for worsening pain or nausea comp metabolic panel on 2019-04-22 Albumin [Mass/Vol] 4.5 3.9-4.9 g/dL Normal 04-22-2019 [facility] ([id number]) Comment: Performed By: #### CBCDIF, P T, PTT, CK, CMP, LIPA, MG1 #### [facility] [address] [facility] [phone] ALP [Catalytic activity/Vol] 145 38-113 U/L High 0 04-22-2019 [facility] ([id number]) Comment: Performed By: #### CBCDIF, P T, PTT, CK, CMP, LIPA, MG1 #### [facility] [address] [place] [address] ALT [Catalytic activity/Vol] 32 10-54 U/L Normal 0 04-22-2019 [facility] ([id number]) Comment: Performed By: #### CBCDIF, P T, PTT, CK, CMP, LIPA, MG1 #### [facility] [address] [facility] [phone] Anion gap [Moles/Vol] 17 9-18 mmol/L Normal 04-22-19 [facility] (00085) Comment: Performed By: #### CBCDIF, P T, PTT, CK, CMP, LIPA, MG1 #### [facility] [address] [facility] [phone] AST [Catalytic activity/Vol] 38 14-40 U/L Normal 0 04-22-2019 [facility] ([id number]) Comment: Performed By: #### CBCDIF, P T, PTT, CK, CMP, LIPA, MG1 #### [facility] [address] [facility] [phone] Bilirubin [Mass/Vol] 0.8 0.2-1.3 mg/dL Normal 0 [facility] (86100) Comment: Performed By: #### CBCDIF, P T, PTT, CK, CMP, LIPA, MG1 #### [facility] [address] [facility] [phone] Calcium [Mass/Vol] 10.5 8.5-10.2 mg/dL High 04-22-2019 [facility] (37028) Comment: Performed By: #### CBCDIF, P T, PTT, CK, CMP, LIPA, MG1 #### [facility] [address] [facility] [phone] Chloride [Moles/Vol] 101 97-105 mmol/L Normal 0 [facility] (74676) Comment: Performed By: #### CBCDIF, P T, PTT, CK, CMP, LIPA, MG1 #### [facility] [address] [facility] [phone] CO2 [Moles/Vol] 21 22-30 mmol/L Low 04-22-2019 [facility] ([id number]) Comment: Performed By: #### CBCDIF, P T, PTT, CK, CMP, LIPA, MG1 #### [facility] [address] [facility] [phone] Creatinine [Mass/Vol] 1.95 0.73-1.22 mg/dL High 04-22-19 20 [facility] (54759) Comment: Performed By: #### CBCDIF, P T, PTT, CK, CMP, LIPA, MG1 #### [facility] [address] [facility] [phone] eGFR- Amer. 41 Normal 04-22-2019 [facility] (18746) Comment: Performed By: #### CBCDIF, P T, PTT, CK, CMP, LIPA, MG1 #### [facility] [address] [facility] [phone] GFR/1.73 sq M predicted among 34 . Normal 04-22-2019 [facility] (40648) non-blacks MDRD (S/P/Bld) [Vol rate/Area] Comment: Result Comment: eGFR (Estima pratik GFR) Units of measure: mL/min/1.73 meters squared eGFR is derived from the ree xpressed MDRD Study equation using the following parameters: serum creatinine, age, gender and race. The creatinine assay has been calibrated to be traceable to IDMS. An eGFR <60 mL/min/1.73m2 fo r >3 months is consistent with chronic kidney disease. Refer to KDOQI guidelines for clinical interpretation. In patients with unstable re nal function, e.g. those with acute kidney injury, the eGFR may not accurately reflect actual GFR. Performed By: #### CBCDIF, P T, PTT, CK, CMP, LIPA, MG1 #### [facility] [address] [facility] [phone] Glucose [Mass/Vol] 143 74-99 mg/dL High 04-22-2019 [facility] (52989) Comment: Result Comment: The [place] Diabetes Association (ADA) provides guidance for cutoff values for fasting glucose and random glucose. The ADA defines fasting as no caloric intake for at least 8 hours. Fas ting plasma glucose results between 100 to 125 mg/dL indicate increased risk for diabetes (prediabetes). Fasting plasma glucose resul ts greater than or equal to 126 mg/dL meet the criteria for diagnosis of diabetes. In the absence of unequivocal hyperglycemia, results should be confirmed by repeat testing. In a patient with classic s ymptoms of hyperglycemia or hyperglycemic crisis, random plasma glucose results greater than or equal to 200 mg/dL meet the criteria for diagnosis of diabetes. Reference: Standards of [facility] Care in Diabetes 2016, [place] Diabetes Association. Diabetes Care. 2016.39(Suppl 1). Performed By: #### CBCDIF, P T, PTT, CK, CMP, LIPA, MG1 #### [facility] [address] [facility] [phone] Potassium [Moles/Vol] 4.4 3.7-5.1 mmol/L Normal 04-22-19 [facility] (56456) Comment: Performed By: #### CBCDIF, P T, PTT, CK, CMP, LIPA, MG1 #### [facility] [address] [facility] [phone] Protein [Mass/Vol] 8.1 6.3-8.0 g/dL High 04-22-2019 [facility] (29408) Comment: Performed By: #### CBCDIF, P T, PTT, CK, CMP, LIPA, MG1 #### [facility] [address] [facility] [phone] Sodium [Moles/Vol] 139 136-144 mmol/L Normal 04-22-2019 [facility] (25004) Comment: Performed By: #### CBCDIF, P T, PTT, CK, CMP, LIPA, MG1 #### [facility] [address] [place], [place] [phone] Urea nitrogen [Mass/Vol] 18 9-24 mg/dL Normal 04-21 [facility] (23611) Comment: Performed By: #### CBCDIF, P T, PTT, CK, CMP, LIPA, MG1 #### [facility] [address] [place] [address] cbc and differential on 2019-04-22 Abs Baso 0.06 <0.11 k/uL Normal 04-22-2019 [facility] (25584) Comment: Performed By: #### CBCDIF, P T, PTT, CK, CMP, LIPA, MG1 #### [facility] [address] [place] [address] Abs Zapata 0.91 <0.87 k/uL High 04-22-2019 [facility] (93852) Comment: Performed By: #### CBCDIF, P T, PTT, CK, CMP, LIPA, MG1 #### [facility] [address] [place] [address] Abs Neut 6.54 1.45-7.50 k/uL Normal 04-22-2019 [facility] (28249) Comment: Performed By: #### CBCDIF, P T, PTT, CK, CMP, LIPA, MG1 #### [facility] [address] [place] [address] Basophils/100 WBC (Bld) 0.7 % Normal 2019 [facility] (96642) Comment: Performed By: #### CBCDIF, P T, PTT, CK, CMP, LIPA, MG1 #### [facility] [address] [place] [address] Eosinophils (Bld) [#/Vol] 0.11 <0.46 k/uL Normal [facility] (36990) Comment: Performed By: #### CBCDIF, P T, PTT, CK, CMP, LIPA, MG1 #### [facility] [address] [place], [place] [phone] Eosinophils/100 WBC (Bld) 1.2 % Normal [facility] (11775) Comment: Performed By: #### CBCDIF, P T, PTT, CK, CMP, LIPA, MG1 #### [facility] [address] [place] [address] Erythrocyte distribution 15.8 11.5-15.0 % High 04-21 [facility] (32131) width (RBC) [Ratio] Comment: Performed By: #### CBCDIF, P T, PTT, CK, CMP, LIPA, MG1 #### [facility] [address] [place] [address] Hematocrit (Bld) [Volume 45.8 39.0-51.0 % Normal 04-21 [facility] (85084) fraction] Comment: Performed By: #### CBCDIF, P T, PTT, CK, CMP, LIPA, MG1 #### [facility] [address] [place], [place] [phone] Hemoglobin (Bld) 15.5 13.0-17.0 g/dL Normal 04-22-2019 [facility] [Mass/Vol] (15094) Comment: Performed By: #### CBCDIF, P T, PTT, CK, CMP, LIPA, MG1 #### [facility] [address] [place], [place] [address] Lymphocytes (Bld) [#/Vol] 1.28 1.00-4.00 k/uL Normal [facility] (09089) Comment: Performed By: #### CBCDIF, P T, PTT, CK, CMP, LIPA, MG1 #### [facility] [address] [facility] [phone] Lymphocytes/100 WBC (Bld) 14.4 % Normal [facility] (32625) Comment: Performed By: #### CBCDIF, P T, PTT, CK, CMP, LIPA, MG1 #### [facility] [address] [facility] [phone] MCH (RBC) [Entitic mass] 32.6 26.0-34.0 pG Normal 04-21 [facility] (84613) Comment: Performed By: #### CBCDIF, P T, PTT, CK, CMP, LIPA, MG1 #### [facility] [address] [facility] [phone] MCHC (RBC) [Mass/Vol] 33.8 30.5-36.0 g/dL Normal 04-22-19 [facility] (32105) Comment: Performed By: #### CBCDIF, P T, PTT, CK, CMP, LIPA, MG1 #### [facility] [address] [facility] [phone] MCV (RBC) [Entitic vol] 96.4 80.0-100.0 fL Normal 04-21 [facility] (50931) Comment: Performed By: #### CBCDIF, P T, PTT, CK, CMP, LIPA, MG1 #### [facility] [address] [facility] [phone] Monocytes/100 WBC (Bld) 10.2 % Normal 2019 [facility] (54945) Comment: Performed By: #### CBCDIF, P T, PTT, CK, CMP, LIPA, MG1 #### [facility] [address] [facility] [phone] Neutrophils/100 WBC (Bld) 73.5 % Normal [facility] (78790) Comment: Performed By: #### CBCDIF, P T, PTT, CK, CMP, LIPA, MG1 #### [facility] [address] [facility] [phone] Platelet mean volume (Bld) 11.7 9.0-12.7 fL Normal [facility] (47627) [Entitic vol] Comment: Performed By: #### CBCDIF, P T, PTT, CK, CMP, LIPA, MG1 #### [facility] [address] [place] [phone] Platelets (Bld) [#/Vol] 167 150-400 k/uL Normal 2019 [facility] (44775) Comment: Performed By: #### CBCDIF, P T, PTT, CK, CMP, LIPA, MG1 #### [facility] [address] [facility] [phone] RBC (Bld) [#/Vol] 4.75 4.20-6.00 m/uL Normal 04-22-2019 [facility] (48306) Comment: Performed By: #### CBCDIF, P T, PTT, CK, CMP, LIPA, MG1 #### [facility] [address] [place] [phone] WBC (Bld) [#/Vol] 8.90 3.70-11.00 k/uL Normal 04-22-2019 [facility] (15985) Comment: Performed By: #### CBCDIF, P T, PTT, CK, CMP, LIPA, MG1 #### [facility] [address] [place] [phone] allied health on 06-05-04 ALLIED HE[facility] HNO ID: [id number] Normal 020 [facility] Author: Lidia Ivory (Rt) ([id number]) Service: Radiology Author Type: Buttonhole Maker Hand Type: Allied Health Filed: 04/22/2019 6:43 PM Note Text: Radiology Service Progress Note PATIENT NAME: Venkata Leal DATE OF SERVICE: April 22, 2019 TIME: 6:43 PM PATIENT IDENTITY VERIFICATION COMPLETED USING TWO (2) IDENTI FIERS: Name and Date of confirmed by patient verbally. PATIENT GENDER DATA: Male PATIENT RELEVANT IMPLANT DATA REVIEWED: Not Applicable RADIOLOGY DEPARTMENT: General X-ray: Exam(s) Completed: Abdo men X-Ray Abdomen PERIPHERAL IV DATA: Not applicable SIGNED BY: RT Cachorro April 22, 2019 6:43 PM progress on 2019-04 PROGRESS Normal 04-20-2019 [facility] (57065) obsolete on 2019-04 OBSOLETE Normal 04-19-2019 [facility] (83474) progress on 2019-03 PROGRESS Normal 04-16-2019 [facility] (58709) cnptoutreach on CNPTOUTREACH Normal 04-16-2019 [facility] (86817) xr colon single contrast on 2019-04-15 XR COLON SINGLE CONTRAST Normal 04-15 [facility] (15483) progress on 2019-03 PROGRESS Normal 04-15-2019 [facility] (49873) cnco on 2019-04-12 CNCO Letter Text Normal 04-12-2019 [facility] (83562) surgical pathology on 2019-04-08 SURGICAL PATHOLOGY Normal 04-08-2019 [facility] (06235) pt ed on 2019-04-08 PT ED Normal 04-08-2019 [facility] (92859) PT ED Normal 04-08-2019 [facility] (15692) history physical on 2019-04-08 HISTORY PHYSICAL Normal 04-08-2019 [facility] (08246) brief op not on BRIEF OP NOT Normal 04-08-2019 [facility] (36530) anes preop on 04-08 ANES PREOP Normal 04-08-2019 [facility] (69968) anes post on 04-08 ANES POST Normal 04-08-2019 [facility] (90682) progress on 2019-03 PROGRESS Normal 04-06-2019 [facility] (15331) cnovsp on 2019-03-20 8 CNOVSP Normal 04-06-2019 [facility] (68785) nursing prog on NURSING PROG Normal 04-02-2019 [facility] (25516) history physical on 2019-03-31 HISTORY PHYSICAL Normal 03-31-2019 [facility] (10486) tsh on 2019-03-30 TSH Qn 2.560 0.270-4.200 uU/mL Normal 03-30-2019 [facility] (59012) Comment: Performed By: #### FT4, TSH ####[facility] [address] [place], [place] [phone] magnesium on 03-30 Magnesium [Mass/Vol] 1.5 1.7-2.3 mg/dL Low 0 [facility] (12867) ld on 2019-03-30 LD 169 135-225 U/L Normal 03-30-2019 [facility] (70334) free t4 on Free T4 [Mass/Vol] 1.2 0.9-1.7 ng/dL Normal 03-30-2019 [facility] (21482) Comment: Performed By: #### FT4, TSH ####[facility] [address] [place], [place] [phone] comp metabolic panel on 2019-03-30 Albumin [Mass/Vol] 3.9 3.9-4.9 g/dL Normal 03-30-2019 [facility] (79309) ALP [Catalytic 132 38-113 U/L High 03-30-2019 [facility]992[facility] ALT [Catalytic 23 10-54 U/L Normal 03-30-2019 [facility] activity/Vol] [facility] and (23172) Anion gap [Moles/Vol] 10 9-18 mmol/L Normal 03-30-[address] [facility] (72614) AST [Catalytic 26 14-40 U/L Normal 03-30-2019 [facility] activity/Vol] [facility] (55229) Bilirubin [Mass/Vol] 0.5 0.2-1.3 mg/dL Normal 0 [facility] (88179) Calcium [Mass/Vol] 9.0 8.5-10.2 mg/dL Normal 03-30-2019 [facility] (64944) Chloride [Moles/Vol] 102 97-105 mmol/L Normal 0 [facility] (40849) CO2 [Moles/Vol] 26 22-30 mmol/L Normal 03-30-2019 [facility] (29661) Creatinine [Mass/Vol] 1.76 0.73-1.22 mg/dL High 03-30-19 [facility] (09432) eGFR- Amer. 47 Normal 03-30-2019 [facility] (43591) GFR/1.73 sq M predicted 38 . Normal 2019 [facility] among non-blacks MDRD [place] (39746) (S/P/Bld) [Vol rate/Area] Comment: Result Comment: eGFR (Estima pratik GFR) Units of measure: mL/min/1.73 meters squaredeGFR is derived from the reexpressed MDRD Study equation using the following parameters: serum creatinine, age, gender and race. The creatinine assay has been calibrated to be traceable to IDMS.An eGFR <60 mL/min/1.73m2 for >3 months is consistent with chronic kidney disease. Refer to KDOQI guidelines for clinical inte rpretation.In patients with unstable renal function, e.g. those with ac cowlitz kidney injury, the eGFR may not accurately reflect actual GFR. Glucose [Mass/Vol] 132 74-99 mg/dL High 03-30-2019 [facility] (31415) Comment: Result Comment: The [place] Diabetes Association (ADA) provides guidance for cutoff values for fastin g glucose and random glucose. The ADA defines fasting as no caloric intake for at least 8 hours. Fasting plasma glucose results between 100 to 125 m g/dL indicate increased risk for diabetes (prediabetes).Fasting plasma glucose results greater than or equal to 126 mg/dL meet the criteria for diagnosis of diabetes. In the absence of unequivocal hyperglycemia, r esults should be confirmed by repeat testing. In a patient with classic sympt oms of hyperglycemia or hyperglycemic crisis, random plasma glucose result s greater than or equal to 200 mg/dL meet the criteria for diagnosis of di abetes.Reference: Standards of Medical Care in Diabetes 2016, [place] Diab etes Association. Diabetes Care. 2016.39(Suppl 1). Potassium [Moles/Vol] 3.8 3.7-5.1 mmol/L Normal 03-30-19 [facility] (74939) Protein [Mass/Vol] 6.7 6.3-8.0 g/dL Normal 03-30-2019 [facility] (97366) Sodium [Moles/Vol] 138 136-144 mmol/L Normal 03-30-2019 [facility] (65599) Urea nitrogen [Mass/Vol] 15 9-24 mg/dL Normal 03-30 [facility] (09194) chromogranin a on 2 Chromogranin A See Comment <98 Normal 03-30-2019 [facility] (47420) Comment: Result Comment: The Chromogr anin A result is 422 ng/mL,the reference range of [employer] is 0 to 160 ng/mL. Disregard [facility] reference range. Interpret the result using the reference range provided by the performing laboratory.Test p erformed by: [employer], [place], [place].Testing performed by [employer] CGA LM US kit. Results obtained with different methods or kits ca nnot be used interchangeably. See Compliance statement D: [employer]/cs. Performed By: #### CHROMA ## ##[facility] [place], [place] [id number]- [phone] cbc and differential on 2019-03-30 Abs Baso 0.06 <0.11 k/uL Normal 03-30-2019 [facility] (37764) Abs Zapata 0.62 <0.87 k/uL Normal 03-30-2019 [facility] (35500) Abs Neut 3.71 1.45-7.50 k/uL Normal 03-30-2019 [facility] (62737) Absolute nRBC <0.01 <0.01 Normal 03-30-2019 [facility] (26103) Basophils/100 WBC 1.1 % Normal 03-30-2019 [facility] (Bld) [place] (97269) DTYPE Auto Diff Normal 03-30-2019 [facility] (93286) Eosinophils (Bld) 0.14 <0.46 k/uL Normal 03-30-2019 [facility] [#/Vol] [place] (17088) Eosinophils/100 WBC 2.5 % Normal 03-30-2019 [facility] (Bld) [place] (41127) Erythrocyte 15.5 11.5-15.0 % High 03-30-2019 [facility] distribution width [facility] (37309) (RBC) [Ratio] Hematocrit (Bld) 40.0 39.0-51.0 % Normal 03-30-2019 [facility] [Volume fraction] [facility] (86467) Hemoglobin (Bld) 13.6 13.0-17.0 g/dL Normal 03-30-2019 [facility] [Mass/Vol] [place] (35078) Lymphocytes (Bld) 1.05 1.00-4.00 k/uL Normal 03-30-2019 [facility] [#/Vol] [place] (87207) Lymphocytes/100 WBC 18.8 % Normal 03-30-2019 [facility] (Bld) [place] (66630) MCH (RBC) [Entitic 33.2 26.0-34.0 pG Normal 03-30-2019 [facility] mass] [place] (27158) MCHC (RBC) 34.0 30.5-36.0 g/dL Normal 03-30-2019 [facility] [Mass/Vol] [place] (21653) MCV (RBC) [Entitic 97.6 80.0-100.0 fL Normal 03-30-2019 [facility] vol] [place] (47015) Monocytes/100 WBC 11.1 % Normal 03-30-2019 [facility] (d) [place] (24823) Neutrophils/100 WBC 66.5 % Normal 03-30-2019 [facility] (Bld) [place] (94357) NRBCs 0.0 0 /100 WBC Normal 03-30-2019 [facility] (28410) Platelet mean volume 11.6 9.0-12.7 fL Normal 0 [facility] (d) [Entitic vol] [place] (84127) Platelets (Bld) 121 150-400 k/uL Low 03-30-2019 [facility] [#/Vol] [place] (45048) RBC (Bld) [#/Vol] 4.10 4.20-6.00 m/uL Low 03-30-2019 [facility] (68508) WBC (Bld) [#/Vol] 5.58 3.70-11.00 k/uL Normal 03-30-2019 [facility] (54603) obsolete on 2019-03 OBSOLETE Normal 03-29-2019 [facility] (87163) obsolete on 2019-03 OBSOLETE Normal 03-26-2019 [facility] (90690) progress on 2019-03 PROGRESS Normal 03-24-2019 [facility] (51292) PROGRESS Normal 03-24-2019 [facility] (40644) cnptoutreach on CNPTOUTREACH Normal 03-24-2019 [facility] (24081) phosphorus on 03-23 Phosphate [Mass/Vol] 3.2 2.7-4.8 mg/dL Normal 0 [facility] (27530) Comment: Performed By: #### CBCDIF, P HOS, MG1, BMP ####[facility] [address] [place], [place] [phone] magnesium on 03-23 Magnesium [Mass/Vol] 1.9 1.7-2.3 mg/dL Normal 0 [facility] (89308) Comment: Performed By: #### CBCDIF, P HOS, MG1, BMP ####[facility] [address] [place] [phone] cnds on 2019-03-23 CNDS Normal 03-23-2019 [facility] (19664) cbc and differential on 2019-03-23 Abs Baso 0.03 <0.11 k/uL Normal 03-23-2019 [facility] (53438) Comment: Performed By: #### CBCDIF, P HOS, MG1, BMP ####[facility] [address] [place], [place] [phone] Abs Zapata 0.38 <0.87 k/uL Normal 03-23-2019 [facility] (59765) Comment: Performed By: #### CBCDIF, P HOS, MG1, BMP ####[facility] [address] [place], [place] [phone] Abs Neut 2.12 1.45-7.50 k/uL Normal 03-23-2019 [facility] (38394) Comment: Performed By: #### CBCDIF, P HOS, MG1, BMP ####[facility] [address] [place], [place] [phone] Absolute nRBC <0.01 <0.01 Normal 03-23-2019 [facility] (47589) Comment: Performed By: #### CBCDIF, P HOS, MG1, BMP ####[facility] [address] [place], [place] [phone] Basophils/100 WBC (Bld) 0.9 % Normal 2019 [facility] (21555) Comment: Performed By: #### CBCDIF, P HOS, MG1, BMP ####[facility] [place] [phone] DTYPE Auto Diff Normal 03-23-2019 [facility] (65098) Comment: Performed By: #### CBCDIF, P HOS, MG1, BMP ####[facility] [address] [place], [place] [phone] Eosinophils (Bld) [#/Vol] 0.08 <0.46 k/uL Normal [facility] (98931) Comment: Performed By: #### CBCDIF, P HOS, MG1, BMP ####[facility] [address] [place], [place] [phone] Eosinophils/100 WBC (Bld) 2.4 % Normal [facility] (24181) Comment: Performed By: #### CBCDIF, P HOS, MG1, BMP ####[facility] [address] [place], [place] [phone] Erythrocyte distribution 14.9 11.5-15.0 % Normal 03-23 [facility] width (RBC) [Ratio] [place] (29220) Comment: Performed By: #### CBCDIF, P HOS, MG1, BMP ####[facility] [place], [place] [phone] Hematocrit (Bld) [Volume 38.5 39.0-51.0 % Low 03-23 [facility] fraction] (86710) Comment: Performed By: #### CBCDIF, P HOS, MG1, BMP ####[place] [address] [place] [phone] Hemoglobin (Bld) 12.7 13.0-17.0 g/dL Low 03-23-2019 [facility] [Mass/Vol] [place] (80249) Comment: Performed By: #### CBCDIF, P HOS, MG1, BMP ####[place] [address] [place], [place] [phone] Lymphocytes (Bld) [#/Vol] 0.68 1.00-4.00 k/uL Low [facility] (82124) Comment: Performed By: #### CBCDIF, P HOS, MG1, BMP ####[place] [address] [place], [place] [phone] Lymphocytes/100 WBC (Bld) 20.7 % Normal [facility] (83539) Comment: Performed By: #### CBCDIF, P HOS, MG1, BMP ####[place] [address] [place], [place] [phone] MCH (RBC) [Entitic mass] 32.3 26.0-34.0 pG Normal 03-23 [facility] (73344) Comment: Performed By: #### CBCDIF, P HOS, MG1, BMP ####[place] [address] [place], [place] [phone] MCHC (RBC) [Mass/Vol] 33.0 30.5-36.0 g/dL Normal 03-23-19 [facility] (39341) Comment: Performed By: #### CBCDIF, P HOS, MG1, BMP ####[facility] [address] [place], [place] [phone] MCV (RBC) [Entitic vol] 98.0 80.0-100.0 fL Normal 03-23 [facility] (16760) Comment: Performed By: #### CBCDIF, P HOS, MG1, BMP ####[facility] [address] [place], [place] [phone] Monocytes/100 WBC (Bld) 11.6 % Normal 2019 [facility] (43845) Comment: Performed By: #### CBCDIF, P HOS, MG1, BMP ####[facility] [place] [phone] Neutrophils/100 WBC (Bld) 64.4 % Normal [facility] (12188) Comment: Performed By: #### CBCDIF, P HOS, MG1, BMP ####[facility] [address] [place], [place] [phone] NRBCs 0.0 0 /100 WBC Normal 03-23-2019 [facility] (35672) Comment: Performed By: #### CBCDIF, P HOS, MG1, BMP ####[facility] [address] [place] [phone] Platelet mean volume 12.2 9.0-12.7 fL Normal 0 [facility] (Bld) [Entitic vol] [place] (19123) Comment: Performed By: #### CBCDIF, P HOS, MG1, BMP ####[facility] [address] [place], [place] [phone] Platelets (Bld) [#/Vol] 99 150-400 k/uL Low 2019 [facility] (64697) Comment: Result Comment: No clot dete cted. Performed By: #### CBCDIF, P HOS, MG1, BMP ####[facility] [place], [place] [phone] RBC (Bld) [#/Vol] 3.93 4.20-6.00 m/uL Low 03-23-2019 [facility] (94187) Comment: Performed By: #### CBCDIF, P HOS, MG1, BMP ####[facility] [place], [place] [phone] WBC (Bld) [#/Vol] 3.29 3.70-11.00 k/uL Low 03-23-2019 [facility] (32343) Comment: Performed By: #### CBCDIF, P HOS, MG1, BMP ####[place] [address] [place], [place] [phone] basic metabolic panl on 2019-03-23 Anion gap [Moles/Vol] 15 9-18 mmol/L Normal 03-23-[address] [facility] (38096) Comment: Performed By: #### CBCDIF, P HOS, MG1, BMP ####[place] [address] [place], [place] [phone] Calcium [Mass/Vol] 9.4 8.5-10.2 mg/dL Normal 03-23-2019 [facility] (18474) Comment: Performed By: #### CBCDIF, P HOS, MG1, BMP ####[facility] [place], [place] [phone] Chloride [Moles/Vol] 102 97-105 mmol/L Normal 0 [facility] (82958) Comment: Performed By: #### CBCDIF, P HOS, MG1, BMP ####[facility] [place], [place] [phone] CO2 [Moles/Vol] 19 22-30 mmol/L Low 03-23-2019 [facility] (43285) Comment: Performed By: #### CBCDIF, P HOS, MG1, BMP ####[facility] [address] [place], [place] [phone] Creatinine [Mass/Vol] 1.94 0.73-1.22 mg/dL High 03-23-[address] [facility] (29167) Comment: Performed By: #### CBCDIF, P HOS, MG1, BMP ####[facility] [address] [place], [place] [phone] eGFR- Amer. 42 Normal 03-23-2019 [facility] (75062) Comment: Performed By: #### CBCDIF, P HOS, MG1, BMP ####[facility] [address] [place], [place] [phone] GFR/1.73 sq M predicted among 34 . Normal 03-23-2019 [facility] non-blacks MDRD (S/P/Bld) [Vol (57912) rate/Area] Comment: Result Comment: eGFR (Estima pratik GFR) Units of measure: mL/min/1.73 meters squaredeGFR is derived from the reexpressed MDRD Study equation using the following parameters: serum creatinine, age, gender and race. The creatinine assay has been calibrated to be traceable to IDMS.An eGFR <60 mL/min/1.73m2 for >3 months is consistent with chronic kidney disease. Refer to KDOQI guidelines for clinical inte rpretation.In patients with unstable renal function, e.g. those with ac cowlitz kidney injury, the eGFR may not accurately reflect actual GFR. Performed By: #### CBCDIF, P HOS, MG1, BMP ####[facility] [address] [place], [place] [phone] Glucose [Mass/Vol] 117 74-99 mg/dL High 03-23-2019 [facility] (59874) Comment: Result Comment: The [place] [employer] (ADA) provides guidance for cutoff values for fastin g glucose and random glucose. The ADA defines fasting as no caloric intake for at least 8 hours. Fasting plasma glucose results between 100 to 125 m g/dL indicate increased risk for diabetes (prediabetes).Fasting plasma glucose results greater than or equal to 126 mg/dL meet the criteria for diagnosis of diabetes. In the absence of unequivocal hyperglycemia, r esults should be confirmed by repeat testing. In a patient with classic sympt oms of hyperglycemia or hyperglycemic crisis, random plasma glucose result s greater than or equal to 200 mg/dL meet the criteria for diagnosis of di abetes.Reference: Standards of Medical Care in Diabetes 2016, [place] Di[employer] etes [employer]. Diabetes Care. 2016.39(Suppl 1). Performed By: #### CBCDIF, P HOS, MG1, BMP ####[facility] [address] [place], [place] [phone] Potassium [Moles/Vol] 4.1 3.7-5.1 mmol/L Normal 03-23-19 [facility] (03501) Comment: Performed By: #### CBCDIF, P HOS, MG1, BMP ####[facility] [place], [place] [phone] Sodium [Moles/Vol] 136 136-144 mmol/L Normal 03-23-2019 [facility] (70455) Comment: Performed By: #### CBCDIF, P HOS, MG1, BMP ####[facility] [address] [place], [place] [phone] Urea nitrogen [Mass/Vol] 17 9-24 mg/dL Normal 03-23 [facility] (93267) Comment: Performed By: #### CBCDIF, P HOS, MG1, BMP ####[facility] [place], [place] [phone] progress on 2019-03 PROGRESS Normal 03-22-2019 [facility] (72731) case managem on CASE MANAGEM Normal 03-22-2019 [facility] (12150) CASE MANAGEM Normal 03-22-2019 [facility] (00400) basic metabolic panl on 2019-03-22 Anion gap [Moles/Vol] 11 9-18 mmol/L Normal 03-22-[address] [facility] (49110) Comment: Performed By: #### BMP ####C [place] [address] [place], [place] [phone] Calcium [Mass/Vol] 8.5 8.5-10.2 mg/dL Normal 03-22-2019 [facility] (59327) Comment: Performed By: #### BMP ####C [address] [phone] Chloride [Moles/Vol] 109 97-105 mmol/L High 0 [facility] (32611) Comment: Performed By: #### BMP ####[address] [place], [place] [phone] CO2 [Moles/Vol] 19 22-30 mmol/L Low 03-22-2019 [facility] (00949) Comment: Performed By: #### BMP ####C [address] [phone] Creatinine [Mass/Vol] 1.83 0.73-1.22 mg/dL High 03-22-[address] [facility] (23498) Comment: Performed By: #### BMP ####[address] [phone] eGFR- Amer. 45 Normal 03-22-2019 [facility] (41052) Comment: Performed By: #### BMP ####C [address] [phone] GFR/1.73 sq M predicted among 37 . Normal 03-22-2019 [facility] non-blacks MDRD (S/P/Bld) [Vol (50291) rate/Area] Comment: Result Comment: eGFR (Estima pratik GFR) Units of measure: mL/min/1.73 meters squaredeGFR is derived from the reexpressed MDRD Study equation using the following parameters: serum creatinine, age, gender and race. The creatinine assay has been calibrated to be traceable to IDMS.An eGFR <60 mL/min/1.73m2 for >3 months is consistent with chronic kidney disease. Refer to KDOQI guidelines for clinical inte rpretation.In patients with unstable renal function, e.g. those with ac cowlitz kidney injury, the eGFR may not accurately reflect actual GFR. Performed By: #### BMP ####C [facility] [place], [place] [phone] Glucose [Mass/Vol] 117 74-99 mg/dL High 03-22-2019 [facility] (45697) Comment: Result Comment: The [place] Diabetes [employer] (ADA) provides guidance for cutoff values for fastin g glucose and random glucose. The ADA defines fasting as no caloric intake for at least 8 hours. Fasting plasma glucose results between 100 to 125 m g/dL indicate increased risk for diabetes (prediabetes).Fasting plasma glucose results greater than or equal to 126 mg/dL meet the criteria for diagnosis of diabetes. In the absence of unequivocal hyperglycemia, r esults should be confirmed by repeat testing. In a patient with classic sympt oms of hyperglycemia or hyperglycemic crisis, random plasma glucose result s greater than or equal to 200 mg/dL meet the criteria for diagnosis of di abetes.Reference: Standards of Medical Care in Diabetes 2016, [place] Diab etes [employer]. Diabetes Care. 2016.39(Suppl 1). Performed By: #### BMP ####C [facility] [place], [place] [phone] Potassium [Moles/Vol] 4.5 3.7-5.1 mmol/L Normal 03-22-19 [facility] (95810) Comment: Performed By: #### BMP ####C [facility] [place] [address] [phone] Sodium [Moles/Vol] 139 136-144 mmol/L Normal 03-22-2019 [facility] (77722) Comment: Performed By: #### BMP ####C [facility] [place], [place] [phone] Urea nitrogen [Mass/Vol] 18 9-24 mg/dL Normal 03-22 [facility] (63278) Comment: Performed By: #### BMP ####[place] [address] [address] [place] [phone] progress on 2019-03 PROGRESS Normal 03-21-2019 [facility] (23109) phosphorus on 03-21 Phosphate [Mass/Vol] 2.9 2.7-4.8 mg/dL Normal 0 [facility] (70261) Comment: Performed By: #### PHOS, MG1 , BMP, CBCDIF ####[place] [address] [place] [phone] magnesium on 03-21 Magnesium [Mass/Vol] 1.7 1.7-2.3 mg/dL Normal 0 [facility] (21721) Comment: Performed By: #### PHOS, MG1 , BMP, CBCDIF ####[place] [address] [place] [phone] cbc and differential on 2019-03-21 Abs Baso <0.03 <0.11 Normal 03-21-2019 [facility] (47662) Comment: Performed By: #### PHOS, MG1 , BMP, CBCDIF ####[place] [address] [place] [phone] Abs Zapata 0.38 <0.87 k/uL Normal 03-21-2019 [facility] (76980) Comment: Performed By: #### PHOS, MG1 , BMP, CBCDIF ####[place] [address] [place] [phone] Abs Neut 2.93 1.45-7.50 k/uL Normal 03-21-2019 [facility] (17030) Comment: Performed By: #### PHOS, MG1 , BMP, CBCDIF ####[place] [address] [place], [place] [phone] Absolute nRBC <0.01 <0.01 Normal 03-21-2019 [facility] (30742) Comment: Performed By: #### PHOS, MG1 , BMP, CBCDIF ####[facility] [address] [place], [place] [phone] Basophils/100 WBC (Bld) 0.5 % Normal 2019 [facility] (38022) Comment: Performed By: #### PHOS, MG1 , BMP, CBCDIF ####[facility] [place], [place] [phone] DTYPE Auto Diff Normal 03-21-2019 [facility] (75598) Comment: Performed By: #### PHOS, MG1 , BMP, CBCDIF ####[facility] [place], [place] [phone] Eosinophils (Bld) [#/Vol] 0.11 <0.46 k/uL Normal [facility] (00166) Comment: Performed By: #### PHOS, MG1 , BMP, CBCDIF ####[facility] [place], [place] [phone] Eosinophils/100 WBC (Bld) 2.7 % Normal [facility] (81455) Comment: Performed By: #### PHOS, MG1 , BMP, CBCDIF ####[facility] [address] [place], [place] [phone] Erythrocyte distribution 15.3 11.5-15.0 % High 03-21 [facility] width (RBC) [Ratio] [place] (66060) Comment: Performed By: #### PHOS, MG1 , BMP, CBCDIF ####[facility] [address] [place], [place] [phone] Hematocrit (Bld) [Volume 36.3 39.0-51.0 % Low 03-21 [facility] fraction] (77446) Comment: Performed By: #### PHOS, MG1 , BMP, CBCDIF ####[facility] [address] [place], [place] [phone] Hemoglobin (Bld) 12.0 13.0-17.0 g/dL Low 03-21-2019 [facility] [Mass/Vol] [place] (31688) Comment: Performed By: #### PHOS, MG1 , BMP, CBCDIF ####[facility] [address] [place], [place] [phone] Lymphocytes (Bld) [#/Vol] 0.61 1.00-4.00 k/uL Low [facility] (27595) Comment: Performed By: #### PHOS, MG1 , BMP, CBCDIF ####[place] [address] [place], [place] [phone] Lymphocytes/100 WBC (Bld) 15.1 % Normal [facility] (19796) Comment: Performed By: #### PHOS, MG1 , BMP, CBCDIF ####[facility] [place], [place] [phone] MCH (RBC) [Entitic mass] 33.2 26.0-34.0 pG Normal 03-21 [facility] (06703) Comment: Performed By: #### PHOS, MG1 , BMP, CBCDIF ####[facility] [address] [place], [place] [phone] MCHC (RBC) [Mass/Vol] 33.1 30.5-36.0 g/dL Normal 03-21-19 [facility] (00699) Comment: Performed By: #### PHOS, MG1 , BMP, CBCDIF ####[facility] [address] [place], [place] [phone] MCV (RBC) [Entitic vol] 100.6 80.0-100.0 fL High 03-21 [facility] (36693) Comment: Performed By: #### PHOS, MG1 , BMP, CBCDIF ####[facility] [address] [place], [place] [phone] Monocytes/100 WBC (Bld) 9.4 % Normal 2019 [facility] (72716) Comment: Performed By: #### PHOS, MG1 , BMP, CBCDIF ####[facility] [address] [place], [place] [phone] Neutrophils/100 WBC (Bld) 72.3 % Normal [facility] (06004) Comment: Performed By: #### PHOS, MG1 , BMP, CBCDIF ####[place] [address] [place], [place] [phone] NRBCs 0.0 0 /100 WBC Normal 03-21-2019 [facility] (10267) Comment: Performed By: #### PHOS, MG1 , BMP, CBCDIF ####[facility] [place], [place] [phone] Platelet mean volume 12.2 9.0-12.7 fL Normal 0 [facility] (Bld) [Entitic vol] [place] (30240) Comment: Performed By: #### PHOS, MG1 , BMP, CBCDIF ####[facility] [address] [place], [place] [phone] Platelets (Bld) [#/Vol] 85 150-400 k/uL Low 2019 [facility] (29766) Comment: Result Comment: Result check ed and verifiedNo clot detected. Performed By: #### PHOS, MG1 , BMP, CBCDIF ####[facility] [address] [place], [place] [phone] RBC (Bld) [#/Vol] 3.61 4.20-6.00 m/uL Low 03-21-2019 [facility] (68802) Comment: Performed By: #### PHOS, MG1 , BMP, CBCDIF ####[facility] [address] [place], [place] [phone] WBC (Bld) [#/Vol] 4.05 3.70-11.00 k/uL Normal 03-21-2019 [facility] (42752) Comment: Performed By: #### PHOS, MG1 , BMP, CBCDIF ####[facility] [place], [place] [phone] case mgt init asses on 2019-03-21 CASE MGT INIT ASSES Normal 03-21-2019 [facility] (57450) basic metabolic panl on 2019-03-21 Anion gap [Moles/Vol] 12 9-18 mmol/L Normal 03-21-[address] [facility] (19181) Comment: Performed By: #### PHOS, MG1 , BMP, CBCDIF ####[facility] [place], [place] [phone] Calcium [Mass/Vol] 8.6 8.5-10.2 mg/dL Normal 03-21-2019 [facility] (55513) Comment: Performed By: #### PHOS, MG1 , BMP, CBCDIF ####[facility] [address] [place], [place] [phone] Chloride [Moles/Vol] 105 97-105 mmol/L Normal 0 [facility] (25207) Comment: Performed By: #### PHOS, MG1 , BMP, CBCDIF ####[facility] [address] [place], [place] [phone] CO2 [Moles/Vol] 20 22-30 mmol/L Low 03-21-2019 [facility] (53240) Comment: Performed By: #### PHOS, MG1 , BMP, CBCDIF ####[facility] [place], [place] [phone] Creatinine [Mass/Vol] 1.74 0.73-1.22 mg/dL High 03-21-[address] [facility] (54591) Comment: Performed By: #### PHOS, MG1 , BMP, CBCDIF ####[facility] [address] [place], [place] [phone] eGFR- Amer. 47 Normal 03-21-2019 [facility] (96845) Comment: Performed By: #### PHOS, MG1 , BMP, CBCDIF ####[facility] [address] [place], [place] [phone] GFR/1.73 sq M predicted among 39 . Normal 03-21-2019 [facility] non-blacks MDRD (S/P/Bld) [Vol (39500) rate/Area] Comment: Result Comment: eGFR (Estima pratik GFR) Units of measure: mL/min/1.73 meters squaredeGFR is derived from the reexpressed MDRD Study equation using the following parameters: serum creatinine, age, gender and race. The creatinine assay has been calibrated to be traceable to IDMS.An eGFR <60 mL/min/1.73m2 for >3 months is consistent with chronic kidney disease. Refer to KDOQI guidelines for clinical inte rpretation.In patients with unstable renal function, e.g. those with ac cowlitz kidney injury, the eGFR may not accurately reflect actual GFR. Performed By: #### PHOS, MG1 , BMP, CBCDIF ####[facility] [address] [place], [place] [phone] Glucose [Mass/Vol] 108 74-99 mg/dL High 03-21-2019 [facility] (69593) Comment: Result Comment: The [place] [employer] (ADA) provides guidance for cutoff values for fastin g glucose and random glucose. The ADA defines fasting as no caloric intake for at least 8 hours. Fasting plasma glucose results between 100 to 125 m g/dL indicate increased risk for diabetes (prediabetes).Fasting plasma glucose results greater than or equal to 126 mg/dL meet the criteria for diagnosis of diabetes. In the absence of unequivocal hyperglycemia, r esults should be confirmed by repeat testing. In a patient with classic sympt oms of hyperglycemia or hyperglycemic crisis, random plasma glucose result s greater than or equal to 200 mg/dL meet the criteria for diagnosis of di abetes.Reference: Standards of Medical Care in Diabetes 2016, [place] Diab etes [employer]. Diabetes Care. 2016.39(Suppl 1). Performed By: #### PHOS, MG1 , BMP, CBCDIF ####[facility] [place] [phone] Potassium [Moles/Vol] 4.7 3.7-5.1 mmol/L Normal 03-21-19 [facility] (89343) Comment: Performed By: #### PHOS, MG1 , BMP, CBCDIF ####[place] [address] [place], [place] [phone] Sodium [Moles/Vol] 137 136-144 mmol/L Normal 03-21-2019 [facility] (52987) Comment: Performed By: #### PHOS, MG1 , BMP, CBCDIF ####[place] [address] [place] [phone] Urea nitrogen [Mass/Vol] 17 9-24 mg/dL Normal 03-21 [facility] (17408) Comment: Performed By: #### PHOS, MG1 , BMP, CBCDIF ####[place] [address] [place], [place] [phone] Anion gap [Moles/Vol] 13 9-18 mmol/L Normal 03-21-19 [facility] (46304) Comment: Performed By: #### BMP ####C [place] [address], [place] [phone] Calcium [Mass/Vol] 8.9 8.5-10.2 mg/dL Normal 03-21-2019 [facility] (05749) Comment: Performed By: #### BMP ####C [place] [id number] [place], [place] [phone] Chloride [Moles/Vol] 107 97-105 mmol/L High 0 [facility] ([id number]) Comment: Performed By: #### BMP ####[address] [place], [place] [phone] CO2 [Moles/Vol] 19 22-30 mmol/L Low 03-21-2019 [facility] ([id number]) Comment: Performed By: #### BMP ####C [address] [phone] Creatinine [Mass/Vol] 1.64 0.73-1.22 mg/dL High 03-21-[address] [facility] ([id number]) Comment: Performed By: #### BMP ####C [address] [phone] eGFR- Amer. 51 Normal 03-21-2019 [facility] ([id number]) Comment: Performed By: #### BMP ####C [address] [phone] GFR/1.73 sq M predicted among 42 . Normal 03-21-2019 [facility] non-blacks MDRD (S/P/Bld) [Vol (97894) rate/Area] Comment: Result Comment: eGFR (Estima pratik GFR) Units of measure: mL/min/1.73 meters squaredeGFR is derived from the reexpressed MDRD Study equation using the following parameters: serum creatinine, age, gender and race. The creatinine assay has been calibrated to be traceable to IDMS.An eGFR <60 mL/min/1.73m2 for >3 months is consistent with chronic kidney disease. Refer to KDOQI guidelines for clinical inte rpretation.In patients with unstable renal function, e.g. those with ac cowlitz kidney injury, the eGFR may not accurately reflect actual GFR. Performed By: #### BMP ####C [address] [facility] [phone] Glucose [Mass/Vol] 111 74-99 mg/dL High 03-21-2019 [facility] ([id number]) Comment: Result Comment: The [place] Diabetes Association (ADA) provides guidance for cutoff values for fastin g glucose and random glucose. The ADA defines fasting as no caloric intake for at least 8 hours. Fasting plasma glucose results between 100 to 125 m g/dL indicate increased risk for diabetes (prediabetes).Fasting plasma glucose results greater than or equal to 126 mg/dL meet the criteria for diagnosis of diabetes. In the absence of unequivocal hyperglycemia, r esults should be confirmed by repeat testing. In a patient with classic sympt oms of hyperglycemia or hyperglycemic crisis, random plasma glucose result s greater than or equal to 200 mg/dL meet the criteria for diagnosis of di abetes.Reference: Standards of Medical Care in Diabetes 2016, [place] Diab etes Association. Diabetes Care. 2016.39(Suppl 1). Performed By: #### BMP ####C [address] [phone] Potassium [Moles/Vol] 4.5 3.7-5.1 mmol/L Normal 03-21-[address] [facility] ([id number]) Comment: Performed By: #### BMP ####C [address] [phone] Sodium [Moles/Vol] 139 136-144 mmol/L Normal 03-21-2019 [facility] ([id number]) Comment: Performed By: #### BMP ####C [address] [phone] Urea nitrogen [Mass/Vol] 16 9-24 mg/dL Normal 03-21 [facility] ([id number]) Comment: Performed By: #### BMP ####C [address] [phone] xr abdomen 1v supine on 2019-03-20 XR ABDOMEN 1V SUPINE Normal 03-20- 0 [facility] ([id number]) urinalysis on 03-20 Bilirubin, Urine Negative Negative Normal 03-20-2019 [facility] ([id number]) Comment: Performed By: #### CBCDIF, P T, PTT, CK, CMP, LIPA, MG1 #### [facility] [address] [facility] [phone] Clarity (U) Clear Clear Normal 03-20-2019 [facility] ([id number]) Comment: Performed By: #### CBCDIF, P T, PTT, CK, CMP, LIPA, MG1 #### [facility] [address] [facility] [phone] Color (U) Yellow Yellow Normal 03-20-2019 [facility] ([id number]) Comment: Performed By: #### CBCDIF, P T, PTT, CK, CMP, LIPA, MG1 #### [facility] [address] [facility] [phone] Glucose Ql (U) Negative Negative Normal 03-20-2019 [facility] ([id number]) Comment: Performed By: #### CBCDIF, P T, PTT, CK, CMP, LIPA, MG1 #### [facility] [address] [facility] [phone] Hemoglobin/Blood,Ur Negative Negative Normal 03-20-2019 [facility] ([id number]) Comment: Performed By: #### CBCDIF, P T, PTT, CK, CMP, LIPA, MG1 #### [facility] [address] [facility] [phone] Ketones Ql (U) Negative Negative Normal 03-20-2019 [facility] ([id number]) Comment: Performed By: #### CBCDIF, P T, PTT, CK, CMP, LIPA, MG1 #### [facility] [address] [facility] [phone] Leukest Negative Negative Normal 03-20-2019 [facility] ([id number]) Comment: Performed By: #### CBCDIF, P T, PTT, CK, CMP, LIPA, MG1 #### [facility] [address] [facility] [phone] Nitrite Ql (U) Negative Negative Normal 03-20-2019 [facility] ([id number]) Comment: Performed By: #### CBCDIF, P T, PTT, CK, CMP, LIPA, MG1 #### [facility] [address] [place], [place] [phone] pH (Bld) 6.0 5.0-8.0 Normal 03-20-2019 [facility] ([id number]) Comment: Performed By: #### CBCDIF, P T, PTT, CK, CMP, LIPA, MG1 #### [facility] [address] [place] [address] Protein (U) [Mass/Vol] Negative Negative mg/dL Normal [facility] ([id number]) Comment: Performed By: #### CBCDIF, P T, PTT, CK, CMP, LIPA, MG1 #### [facility] [address] [place] [address] Specific Horner, Ur >1.029 1.001-1.029 High [facility] ([id number]) Comment: Performed By: #### CBCDIF, P T, PTT, CK, CMP, LIPA, MG1 #### [facility] [address] [place], [place] [phone] Urobilinogen Qn (U) 0.2 0.2-1.0 Normal 03-20-2019 [facility] ([id number]) Comment: Performed By: #### CBCDIF, P T, PTT, CK, CMP, LIPA, MG1 #### [facility] [address] [place], [place] [phone] type and screen on 2019-03-20 ABO/RH(D) O POSITIVE Normal 03-20-2019 [facility] ([id number]) Comment: Performed By: #### TSCR #### [facility] [address] [place], [place] [phone] tsh on 2019-03-20 TSH Qn 0.621 0.270-4.200 uU/mL Normal 03-20-2019 [facility] ([id number]) Comment: Performed By: #### TSH ####C [facility] [address] [place], [place] [phone] sepsis lactate on Sepsis Lactate 2.2 0.5-2.0 mmol/L High 03-20-2019 [facility] ([id number]) Comment: Result Comment: No call per procedure. 03/20/2019 1538 Performed By: #### CBCDIF, P T, PTT, CK, CMP, LIPA, MG1 #### [facility] [address] [facility] [phone] protime on PT Coag (PPP) [Time] 1.1 0.9-1.3 s Normal 0 [facility] ([id number]) Comment: Result Comment: Vitamin K An tagonist (VKA) Therapeutic Range: INR 2 to 3 (Target INR of 2.5) Note: For patients treated w ith VKA drugs, such as warfarin, the [place] [employer] 2012 Guideline recommends a therapeutic INR range of 2 to 3 (target INR of 2.5). This recommendation includes high-risk patients with antiphospholipid syndrome with previous arterial or venous thromboembolism, current-generation mechanical or bioprosthetic aortic heart valve replacement. Note: Patients with heavy duty mechanic al aortic valve replacement and additional risk factors for thromboembolic events (atrial fibrillation, previous thromboembolism, LV dysfunction, hypercoagulable conditions) or an older generation mecha nical AVR (i.e., ball in-Cage) or any mechanical MVR should have a INR therapeutic range of 2.5 to 3.5 (target INR of 3). Sawyer EDMONDSON, et al. Chest 2012 , 141:7S-47S Kathy BRITO et al. [facility] 20 17, 70: [phone] Performed By: #### CBCDIF, P T, PTT, CK, CMP, LIPA, MG1 #### [facility] [address] [facility] [phone] Result Comment: Vitamin K An tagonist (VKA) Therapeutic Range: INR 2 to 3 (Target INR of 2.5)Note: For patients treated with VKA drugs, such as warfarin, the [place] [employer] 2012 Guideline recommends a therapeutic INR range of 2 to 3 (target INR of 2.5). This recommendation includes high-risk patients with antiphospholipid syndrome with previous arterial or venous thromboem bolism, current-generation mechanical or bioprosthetic aortic heart v alve replacement.Note: Patients with mechanical aortic valve replacement and additional risk factors for thromboembolic events (atrial fibrillation, previous thromboembolism, LV dysfunction, hypercoagulable conditions) or an older generation mechanical AVR (i.e., ball in-Cage) or any mechani veronika MVR should have a INR therapeutic range of 2.5 to 3.5 (target INR of 3) .Sawyer GH, et al. Chest 2012, 141:7S-47SNishimesther RA, et a owen. [facility] 2017, 70: [phone] Performed By: #### PTT, CBCD IF, PHOS, CMP, LACT, PT, MG1 ####[facility], [place] [phone] PT Coag (PPP) [Time] 11.4 9.7-13.0 sec Normal 0 [facility] ([id number]) Comment: Performed By: #### CBCDIF, P T, PTT, CK, CMP, LIPA, MG1 #### [facility] [address] [place] [address] Performed By: #### PTT, CBCD IF, PHOS, CMP, LACT, PT, MG1 ####[facility] [place], [place] [phone] phosphorus on 03-20 Phosphate [Mass/Vol] 3.2 2.7-4.8 mg/dL Normal 0 [facility] (43934) Comment: Performed By: #### PTT, CBCD IF, PHOS, CMP, LACT, PT, MG1 ####[facility] [address], [place] [phone] magnesium on 03-20 Magnesium [Mass/Vol] 1.7 1.7-2.3 mg/dL Normal 0 [facility] (10283) Comment: Performed By: #### PTT, CBCD IF, PHOS, CMP, LACT, PT, MG1 ####[facility], [place] [phone] Magnesium [Mass/Vol] 1.6 1.7-2.3 mg/dL Low 0 [facility] (68442) Comment: Performed By: #### CBCDIF, P T, PTT, CK, CMP, LIPA, MG1 #### [facility] [address] [facility] [phone] lipase on 1 Lipase [Catalytic 19 16-61 U/L Normal 03-20-2019 [facility] ([id number]) activity/Vol] Comment: Performed By: #### CBCDIF, P T, PTT, CK, CMP, LIPA, MG1 #### [facility] [address] [facility] [phone] lactate on Lactate [Moles/Vol] 2.2 0.5-2.2 mmol/L Normal 03-20-2019 [facility] ([id number]) Comment: Performed By: #### PTT, CBCD IF, PHOS, CMP, LACT, PT, MG1 ####[facility] [address] [place], [place] [phone] history physical on 2019-03-20 HISTORY PHYSICAL Normal 03-20-2019 [facility] ([id number]) ed prov note on ED PROV HNO ID: [id number] Normal 03-20-2019 [place] NOTE Author: Sudarshan Mantilla MD [facility] Service: ? ([id number]) Author Type: Physician Type: ED Provider Notes Filed: 03/20/2019 1:21 PM Note Text: ED Provider Note Patient Name: Venkata Leal SERVICE DATE: 03/20/19 History Patient presents with: Abdominal Pain: radiates to the back Nausea Patient is a 69-year-old male, with a history of multiple de ntal surgeries and partial resections for prior carcinoid tumor as well as Crohn's disease, history of prior bladder cancer, chronic renal insu fficiency, GOMEZ, diabetes, prior stroke, multiple other medical problem s, who comes in with abdominal pain and nausea. The patient started havin g pain earlier this morning. He describes a sharp pain which feels like hot rocks in his stomach. The pain radiates into his back. He fe els bloated as well. He has had this type of pain before, but no radiati on like this. Its never been this bad before. He is nauseated although den ies any vomiting and the patient frequently has diarrhea which is no thing new. Sometimes he has some blood in his stool although he attribu handy to hemorrhoids. He doesn't really mention in relieving or exace rbating factors of the pain. He had an ostomy reversal a few months ago. He denies any fevers or chills. He has a slight headache, visio n normal. No cough or URI symptoms. No chest pain or trouble breathing. N o dysuria or frequency mentioned. No complaints. No rash or bruising o r swelling that's 2. No localizing numbness or weakness. No other assoc iated symptoms. 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 - Chronic pain 10/19/2015 - CKD (chronic kidney disease) stage 3, GFR 30-59 ml/min (HC C) bland UA, baseline Cr in high 1 range - Cognitive impairment 04/22/2014 MOCA (04/2014) - Colon stricture (HCC) 11/12/2018 - Coronary atherosclerosis of unspecified type of vessel, na tive or graft PCI - 1998 - Crohn's disease (HCC) 11/23/2018 - Depression 11/23/2018 - Diarrhea - DUODENITIS - NO HEMORRHAGE 10/24/2006 - Enthesopathy of hip region 06/17/2008 - Esophageal reflux - Essential hypertension - Family history of ischemic heart disease 04/16/2016 - GASTRITIS ANTRAL( W/O Hemorrhage) 10/24/2006 - GERD (gastroesophageal reflux disease) GERD - History of bladder cancer 11/23/2018 - Hydrocele sac 10/17/2014 - Hypothyroidism - IBS (irritable bowel syndrome) 03/06/2010 - Impingement syndrome of right shoulder 03/01/2015 - Incisional hernia 08/31/2012 - Incomplete tear of right rotator cuff 08/01/2015 - Insomnia 11/24/2018 - Internal hemorrhoids without mention of complication - Intervertebral disc disorder with radiculopathy of lumbar region 05/28/2017 - Iron deficiency anemia 01/12/2019 - Irritable bowel syndrome - Lipoma of other specified sites - Mesenteric mass - GOMEZ (nonalcoholic steatohepatitis) cirrhosis on liver biopsy - Neuroendocrine malignancy (HCC) 10/17/2014 - Obesity, Class I, BMI 30-34.9 11/24/2018 - ALEXIS (obstructive sleep apnea) DME [employer] Bi[facility]AP - Oxygen order for 02 bleed in DME is [facility] - Other and unspecified hyperlipidemia - Pancreatic insufficiency - Peripheral vascular disease, unspecified (HCC) 01/31/2005 stents in the lower extremities b/l - Physical deconditioning 03/30/2018 - Radiculopathy, lumbar region 10/28/2005 - S/P primary angioplasty with coronary stent PCI - 1998 - Sciatica 11/08/2005 - 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 - 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 - Spermatocele 10/17/2014 - Spinal stenosis 10/28/2005 - Stroke ([facility]) 2008 TIA-questionable diagnosis - Testalgia 10/03/2014 - Tinnitus, right 03/06/2010 - Type 2 diabetes mellitus with complication (HCC) 6 - Unspecified essential hypertension - Urinary hesitancy 04/22/2014 - Vitamin B12 deficiency - Vitamin D deficiency PAST SURGICAL HISTORY Procedure Laterality Date - APPENDECTOMY 1970 - BALLN ANGIOPLASTY PERC,FEM-POP 1997 - BALLN ANGIOPLASTY PERC,FEM-POP 09/24/06 - CATHETER ART SYS-1ST ORD, ABDOM, PELVIC, OR LOWER 1997 - CATHETER ART SYS-1ST ORD, ABDOM, PELVIC, OR LOWER 1997 with stent - CATHETER ART SYS-1ST ORD, ABDOM, PELVIC, OR LOWER 09/24/06 - COLONOSCOP W/ OR W/O BRSH SPEC 05/30/2004 Colonoscopy - COLONOSCOP W/ OR W/O BRSH SPEC 05/18/14 Colonoscopy - EGD W/O BRSH SPECIMEN W/BX 10/24/06 Esophagiti,gastritis,duodenitis - EGD W/O OR W/BRUSH/WASH 10/26/1998 EGD - HEART SURGERY HX Stent 1995 - KNEE SCOPE,DIAGNOSTIC Right 2003 Arthroscopy, knee - LAP INC HERNIA REPAIR 09-29-12 - LAPAROSCOPIC CHOLEYCYSTECTOMY Cholecystectomy, lap - PAST SURGICAL HISTORY OF 12-08-10 small bowel resection [facility] main - cancerious - PAST SURGICAL HISTORY OF 06/19/2015 Left eye cataract surgery - REMOVAL OF TONSILS,<12 Y/O Tonsillectomy - REPAIR COMPL ROTATOR CUFF AVULSN,CHR Right 09/06/15 Subacromial decompression, rotator cuff repair, and labral d ebridement - REPAIR ING HERNIA,5+Y/O,REDUCIBL Hernia repair, inguinal lt FAMILY HISTORY Problem Relation Age of Onset - Diabetes Mother - other (Uterine cancer) Mother - Heart Father [place] - Hypertension Father - Heart Sister 60age - Stroke Sister - Diabetes Sister 65age - other (fibromyalgia) Sister x 4 , 2 sisters with kidney disease - Diabetes Sister oral meds Social History Tobacco Use - Smoking status: Former Smoker Packs/day: 1.00 Years: 35.00 Pack years: 35.00 Types: Cigarettes Start date: 02/17/1971 Last attempt to quit: 02/17/2006 Years since quittin.0 - Smokeless tobacco: Never Used Substance and Sexual Activity - Alcohol use: No Alcohol/week: 1.7 standard drinks Frequency: Never Drinks per session: Patient refused Binge frequency: Never - Drug use: No - Sexual activity: Yes Partners: Female ALLERGIES Allergen Reactions - Lipitor [Atorvastat* Intolerance myalgias - Zocor [Simvastatin] Intolerance myalgias - Novacain [Other] Intolerance Headache when it wears off - Lescol [Fluvastatin* Intolerance myalgia Review of Systems Constitutional: Negative. Negative for fever. HENT: Negative. Eyes: Negative. Respiratory: Negative. Negative for shortness of breath. Cardiovascular: Negative. Negative for chest pain. Gastrointestinal: Positive for abdominal pain, diarrhea and nausea. Negative for vomiting. Genitourinary: Negative. Negative for dysuria and testicular pain. Musculoskeletal: Negative. Skin: Negative. Neurological: Negative. Psychiatric/Behavioral: Negative. Physical Exam BP 142/77 Pulse 79 Temp (Src) 98.3 (Oral) Resp 20 Wt 217 lb (98.4kg) SpO2 95% O2 Therapy: Room Air Physical Exam Vitals signs and nursing note reviewed. Constitutional: General: He is in acute distress. Appearance: Normal appearance. He is well-developed. He is n ot toxic-appearing. Comments: Patient is in moderate discomfort from pain althou gh nontoxic. HENT: Head: Normocephalic and atraumatic. Right Ear: External ear normal. Left Ear: External ear normal. Nose: Nose normal. Mouth/Throat: Mouth: Mucous membranes are dry. Pharynx: No oropharyngeal exudate or posterior oropharyngeal erythema. Eyes: General: Lids are normal. No scleral icterus. Right eye: No discharge. Left eye: No discharge. Extraocular Movements: Extraocular movements intact. Conjunctiva/sclera: Conjunctivae normal. Pupils: Pupils are equal, round, and reactive to light. Neck: Musculoskeletal: Normal range of motion and neck supple. Vascular: No JVD. Cardiovascular: Rate and Rhythm: Normal rate and regular rhythm. Heart sounds: Normal heart sounds. No murmur. No friction ru b. No gallop. Pulmonary: Effort: Pulmonary effort is normal. No respiratory distress. Breath sounds: Normal breath sounds. No wheezing, rhonchi or rales. Abdominal: General: Bowel sounds are normal. There is no distension or abdominal bruit. Palpations: Abdomen is soft. Abdomen is not rigid. There is no mass or pulsatile mass. Tenderness: There is abdominal tenderness. There is guarding . There is no right CVA tenderness, left CVA tenderness or rebound. Hernia: No hernia is present. Comments: There is generalized tenderness to palpation which is mostly localized in the right upper quadrant and epigastrium with g uarding in that area. No real rebound. Bowel sounds generally normal. N o masses palpable. No hernias noticed. Musculoskeletal: Normal range of motion. General: No swelling or tenderness. Skin: General: Skin is warm and dry. Coloration: Skin is not pale. Findings: No ecchymosis, erythema or rash. Neurological: Mental Status: He is alert and oriented to person, place, an d time. GCS: GCS eye subscore is 4. GCS verbal subscore is 5. GCS mo tor subscore is 6. Cranial Nerves: Cranial nerves are intact. No cranial nerve deficit. Sensory: Sensation is intact. No sensory deficit. Motor: Motor function is intact. Coordination: Coordination is intact. Coordination normal. Psychiatric: Attention and Perception: Attention normal. Mood and Affect: Mood normal. Speech: Speech normal. Behavior: Behavior normal. Thought Content: Thought content normal. Cognition and Memory: Cognition normal. Judgment: Judgment normal. Diagnostic Testing ED Labs Ordered and Reviewed - No data to display Procedures ED Course / Clinical Impression Clinical Impressions as of Mar 20 1319 Abdominal pain, unspecified abdominal location Nausea History of Crohn's disease GOMEZ (nonalcoholic steatohepatitis) Chronic renal impairment, unspecified CKD stage Small bowel obstruction (HCC) MDM / Disposition / Plan I ordered IV fluids as well as IV morphine and Zofran for hi m. CBC unremarkable except for platelets 112. White count normal. C MP showed alkaline phosphatase 157 which is improved from prior. AST u nchanged at 71. ALT mildly increased at 58. Bilirubin normal. Glucose 23 7. Bicarbonate 17 although anion gap normal. Creatinine 1.75 wh ich is actually improved from prior. Lipase normal. Magnesium 1.6. Oral supplement given. Urinalysis showed nothing acute. Lactate w as 4.2 and the venous gas. I believe that this is related to a GI probl em is supposed to be related to sepsis. He is afebrile and has a n ormal white count. Cultures were deferred for now. I did order some more IV fluids for him. Repeat lactate will be obtained. Coags normal. CT o f the abdomen and pelvis with oral contrast only be obtained. Per radiology, there is distended stomach and small bowel to the level of t he cecum where there is postsurgical change. There is some fecal is a she n oted the terminal ileum and prominent infiltrative change within the mesentery without obvious abscess. Findings suggest small bowel obstru ction likely at the distal ileum. Repeat lactate will be obtained. At thi s point I told him that he would need to be admitted to the hospital. He prefers to be transferred to [facility] because he has had all of his surgeries there and his surgeon is there. Transfer was initiated. I di d speak with on-call colorectal surgeon. The patient will be accepted for transfer for further evaluation and treatment. Accepting surgeon is aware of the results. The patient was TRANSFERRED to: [facility] Condition at time of disposition: guarded SIGNATURE: MD Sudarshan Rao MD 03/20/19 1321 ed note on ED NOTE HNO ID: [id number] Normal 03-20-2019 [facility] ([id number]) Author: Eva (Rn) HITESH Caldwell Service: ? Author Type: Registered Nurse Type: ED Notes Filed: 03/20/2019 11:42 AM Note Text: Pt in nad at this time. Vss. Pwd. No cp or sob. Denies vines. R eported off to [facility] ED NOTE HNO ID: [id number] Normal 03-20-2019 [facility] ([id number]) Author: Deirdre SalinasRn) HITESH Monroy Service: ? Author Type: Registered Nurse Type: ED Notes Filed: 03/20/2019 10:26 AM Note Text: Pt presents with severe abd pain that radiates to the back t hat started today at 0100. Pt had 2 Percocet at 0200 and 2 tylenol at 06 00. Pt c/o nausea as well. Pt has extensive abd, liver, and kidney hist ory under the care of an PCP. Pt has cancer, receives an injectable chemo once per month. Last dose was about two weeks ago. ct abd/pel wo ivcon on 2019-03-20 CT ABD/PEL WO * * *Final Report* * * Normal [facility] IVCON DATE OF EXAM: Mar 20 2019 12:10PM ([id number]) [facility] [place] ABD/PEL WO IVCON / PROCEDURE REASON: SBO intermittent or low-grade suspected * * * * Physician Interpretation * * * * EXAMINATION: CT ABDOMEN AND PELVIS WITHOUT IV CONTRAST CLINICAL HISTORY: Abdominal pain and nausea. SBO intermitten t or low-grade suspected ABD PAIN NAUSEA TECHNIQUE: Non-IV contrast imaging of the abdomen and pelvis was performed using standard technique, scanning from just above the dome of the diaphragm to the symphysis pubis. Unenhanced imaging is limited for the evaluation of some intra-abdominal and pelvic pathology. MQ: [id number] Contrast: IV: None Oral: 900 ml of 50ML Omnipaque [address] Radiation dose: Integrated Dose-length product (DLP) for this visit = 763 mGy*cm. CT Dose Reduction Employed: Automated exposure control (AEC) COMPARISON: Comparison is made to prior CT abdomen pelvis da pratik 09/09/2018 RESULT: Lower thorax: Chronic interstitial lung changes with stable bibasilar subpleural reticulation noted. No acute focal infiltrate or pleural fluid collection. Abdomen / Pelvis: GI tract: The bowel gas pattern is abnormal. The stomach is distended with enteric contrast. Dilated small bowel is seen to the le omega of the cecum where there are surgical clips and fatty infiltration of the cecal valve. There is some fecalization of the terminal ileum and there is prominent mesenteric infiltrative change within the small fuad wel mesentery of the right abdomen. No definite fistulous communication or interloop abscess. Findings suggest small bowel obstruction with trans ition point likely in the right lower quadrant at the ileocecal valve. T here is no free air, free fluid or abscess. Small right paracentric abdominal wall hernia noted without entrapped bowel, likely at site of prior ostomy takedown. The colon is normal in caliber with scattered fecal retention. No wall thickening o r inflammatory change. Liver: No hepatomegaly or focal mass. Biliary: The gallbladder surgically absent. Negative biliary dilatation Spleen: No splenomegaly. Pancreas: Unremarkable. Adrenals: No mass. Kidneys: No calculus, hydronephrosis or finding to suggest a cyst or mass in the unenhanced kidney. Lymph Nodes: No lymphadenopathy. Mesentery/peritoneum: No ascites. Retroperitoneum: No mass. Vasculature: Aorta is tortuous with atherosclerotic calcific ation. Pelvis: No mass or ascites. Incompletely distended urinary b ladder which is grossly unremarkable Bones/Soft Tissues: The bony structures are osteopenic with degenerative change. No acute or bony destructive process noted. IMPRESSION: Distended stomach and small bowel to the level of the cecum where there is postsurgical change. There is some fecalization of the te rminal ileum and prominent infiltrative change within the mesentery witho ut obvious interloop abscess. Findings suggest small bowel obstruction likely at the distal ileum. Colon is unremarkable. There is no free air, free fluid or a bscess. Chemist Instrumentation: PSCB Transcribe Date/Time: Mar 20 2019 12:26P Dictated by : ANDREW CRAWFORD MD This examination was interpreted and the report reviewed and electronically signed by: ANDREW CRAWFORD MD on Mar 20 2019 12:39PM EST [id number] comp metabolic panel on 2019-03-20 Albumin [Mass/Vol] 3.4 3.9-4.9 g/dL Low 03-20-2019 [facility] ([id number]) Comment: Performed By: #### PTT, CBCD IF, PHOS, CMP, LACT, PT, MG1 ####[place] [id number], [place] [phone] ALP [Catalytic activity/Vol] 130 38-113 U/L High 0 03-20-2019 [facility] (71989) Comment: Performed By: #### PTT, CBCD IF, PHOS, CMP, LACT, PT, MG1 ####[place] [address], [place] [phone] ALT [Catalytic activity/Vol] 77 10-54 U/L High 0 03-20-2019 [facility] (52652) Comment: Performed By: #### PTT, CBCD IF, PHOS, CMP, LACT, PT, MG1 ####[place] [address], [place] [phone] Anion gap [Moles/Vol] 12 9-18 mmol/L Normal 03-20-19 [facility] (68012) Comment: Performed By: #### PTT, CBCD IF, PHOS, CMP, LACT, PT, MG1 ####[place] [id number], [place] [phone] AST [Catalytic activity/Vol] 102 14-40 U/L High 0 03-20-2019 [facility] (62297) Comment: Performed By: #### PTT, CBCD IF, PHOS, CMP, LACT, PT, MG1 ####[facility], [place] [phone] Bilirubin [Mass/Vol] 0.5 0.2-1.3 mg/dL Normal 0 [facility] (35624) Comment: Performed By: #### CBCDIF, P T, PTT, CK, CMP, LIPA, MG1 #### [facility] [address] [place] [address] Performed By: #### PTT, CBCD IF, PHOS, CMP, LACT, PT, MG1 ####[facility], [place] [phone] Calcium [Mass/Vol] 8.8 8.5-10.2 mg/dL Normal 03-20-2019 [facility] (98660) Comment: Performed By: #### PTT, CBCD IF, PHOS, CMP, LACT, PT, MG1 ####[place] [address], [place] [phone] Chloride [Moles/Vol] 109 97-105 mmol/L High 0 [facility] (70400) Comment: Performed By: #### PTT, CBCD IF, PHOS, CMP, LACT, PT, MG1 ####[place] [address] [place], [place] [phone] CO2 [Moles/Vol] 18 22-30 mmol/L Low 03-20-2019 [facility] (46171) Comment: Performed By: #### PTT, CBCD IF, PHOS, CMP, LACT, PT, MG1 ####[facility] [place], [place] [phone] Creatinine [Mass/Vol] 1.61 0.73-1.22 mg/dL High 03-20-[address] [facility] (35681) Comment: Performed By: #### PTT, CBCD IF, PHOS, CMP, LACT, PT, MG1 ####[place] [id number], [place] [phone] eGFR- Amer. 52 Normal 03-20-2019 [facility] (44126) Comment: Performed By: #### PTT, CBCD IF, PHOS, CMP, LACT, PT, MG1 ####[place] [id number], [place] [phone] GFR/1.73 sq M predicted among 43 . Normal 03-20-2019 [facility] non-blacks MDRD (S/P/Bld) [Vol (35869) rate/Area] Comment: Result Comment: eGFR (Estima pratik GFR) Units of measure: mL/min/1.73 meters squaredeGFR is derived from the reexpressed MDRD Study equation using the following parameters: serum creatinine, age, gender and race. The creatinine assay has been calibrated to be traceable to IDMS.An eGFR <60 mL/min/1.73m2 for >3 months is consistent with chronic kidney disease. Refer to KDOQI guidelines for clinical inte rpretation.In patients with unstable renal function, e.g. those with ac cowlitz kidney injury, the eGFR may not accurately reflect actual GFR. Performed By: #### PTT, CBCD IF, PHOS, CMP, LACT, PT, MG1 ####[facility] [address] [place], [place] [phone] Glucose [Mass/Vol] 151 74-99 mg/dL High 03-20-2019 [facility] (52766) Comment: Result Comment: The [place] [employer] (ADA) provides guidance for cutoff values for fastin g glucose and random glucose. The ADA defines fasting as no caloric intake for at least 8 hours. Fasting plasma glucose results between 100 to 125 m g/dL indicate increased risk for diabetes (prediabetes).Fasting plasma glucose results greater than or equal to 126 mg/dL meet the criteria for diagnosis of diabetes. In the absence of unequivocal hyperglycemia, r esults should be confirmed by repeat testing. In a patient with classic sympt oms of hyperglycemia or hyperglycemic crisis, random plasma glucose result s greater than or equal to 200 mg/dL meet the criteria for diagnosis of di abetes.Reference: Standards of Medical Care in Diabetes 2016, [place] Di[employer]es [employer]. Diabetes Care. 2016.39(Suppl 1). Performed By: #### PTT, CBCD IF, PHOS, CMP, LACT, PT, MG1 ####[facility] [address] [place], [place] [phone] Potassium [Moles/Vol] 4.6 3.7-5.1 mmol/L Normal 03-20-19 [facility] (52190) Comment: Performed By: #### PTT, CBCD IF, PHOS, CMP, LACT, PT, MG1 ####[facility] [address] [place], [place] [phone] Protein [Mass/Vol] 5.6 6.3-8.0 g/dL Low 03-20-2019 [facility] (17679) Comment: Performed By: #### PTT, CBCD IF, PHOS, CMP, LACT, PT, MG1 ####[facility] [address], [place] [phone] Sodium [Moles/Vol] 139 136-144 mmol/L Normal 03-20-2019 [facility] (06683) Comment: Performed By: #### CBCDIF, P T, PTT, CK, CMP, LIPA, MG1 #### [facility] [address] [place] [address] Performed By: #### PTT, CBCD IF, PHOS, CMP, LACT, PT, MG1 ####[place] [address] [place], [place] [phone] Urea nitrogen [Mass/Vol] 17 9-24 mg/dL Normal 03-20 [facility] (76603) Comment: Performed By: #### PTT, CBCD IF, PHOS, CMP, LACT, PT, MG1 ####[place] [id number] [place], [place] [phone] Albumin [Mass/Vol] 3.9 3.9-4.9 g/dL Normal 03-20-2019 [facility] (20169) Comment: Performed By: #### CBCDIF, P T, PTT, CK, CMP, LIPA, MG1 #### [facility] [address] [place] [address] ALP [Catalytic activity/Vol] 157 38-113 U/L High 0 03-20-2019 [facility] (67172) Comment: Performed By: #### CBCDIF, P T, PTT, CK, CMP, LIPA, MG1 #### [facility] [address] [place] [address] ALT [Catalytic activity/Vol] 58 10-54 U/L High 0 03-20-2019 [facility] (52030) Comment: Performed By: #### CBCDIF, P T, PTT, CK, CMP, LIPA, MG1 #### [facility] [address] [facility] [phone] Anion gap [Moles/Vol] 17 9-18 mmol/L Normal 03-20-19 20 [facility] (25760) Comment: Performed By: #### CBCDIF, P T, PTT, CK, CMP, LIPA, MG1 #### [facility] [address] [facility] [phone] AST [Catalytic activity/Vol] 71 14-40 U/L High 0 03-20-2019 [facility] (00938) Comment: Performed By: #### CBCDIF, P T, PTT, CK, CMP, LIPA, MG1 #### [facility] [address] [place] [address] Calcium [Mass/Vol] 9.9 8.5-10.2 mg/dL Normal 03-20-2019 [facility] (73928) Comment: Performed By: #### CBCDIF, P T, PTT, CK, CMP, LIPA, MG1 #### [facility] [address] [place] [address] Chloride [Moles/Vol] 105 97-105 mmol/L Normal 0 [facility] (34464) Comment: Performed By: #### CBCDIF, P T, PTT, CK, CMP, LIPA, MG1 #### [facility] [address] [place] [address] CO2 [Moles/Vol] 17 22-30 mmol/L Low 03-20-2019 [facility] (85768) Comment: Performed By: #### CBCDIF, P T, PTT, CK, CMP, LIPA, MG1 #### [facility] [address] [place] [address] Creatinine [Mass/Vol] 1.75 0.73-1.22 mg/dL High 03-20-19 20 [facility] (71054) Comment: Performed By: #### CBCDIF, P T, PTT, CK, CMP, LIPA, MG1 #### [facility] [address] [facility] [phone] eGFR- Amer. 47 Normal 03-20-2019 [facility] (76352) Comment: Performed By: #### CBCDIF, P T, PTT, CK, CMP, LIPA, MG1 #### [facility] [address] [facility] [phone] GFR/1.73 sq M predicted among 39 . Normal 03-20-2019 [facility] (60022) non-blacks MDRD (S/P/Bld) [Vol rate/Area] Comment: Result Comment: eGFR (Estima pratik GFR) Units of measure: mL/min/1.73 meters squared eGFR is derived from the ree xpressed MDRD Study equation using the following parameters: serum creatinine, age, gender and race. The creatinine assay has been calibrated to be traceable to IDMS. An eGFR <60 mL/min/1.73m2 fo r >3 months is consistent with chronic kidney disease. Refer to KDOQI guidelines for clinical interpretation. In patients with unstable re nal function, e.g. those with acute kidney injury, the eGFR may not accurately reflect actual GFR. Performed By: #### CBCDIF, P T, PTT, CK, CMP, LIPA, MG1 #### [facility] [address] [facility] [phone] Glucose [Mass/Vol] 237 74-99 mg/dL High 03-20-2019 [facility] (61284) Comment: Result Comment: The [place] Diabetes [employer] (ADA) provides guidance for cutoff values for fasting glucose and random glucose. The ADA defines fasting as no caloric intake for at least 8 hours. Fas ting plasma glucose results between 100 to 125 mg/dL indicate increased risk for diabetes (prediabetes). Fasting plasma glucose resul ts greater than or equal to 126 mg/dL meet the criteria for diagnosis of diabetes. In the absence of unequivocal hyperglycemia, results should be confirmed by repeat testing. In a patient with classic s ymptoms of hyperglycemia or hyperglycemic crisis, random plasma glucose results greater than or equal to 200 mg/dL meet the criteria for diagnosis of diabetes. Reference: Standards of [facility] Care in Diabetes 2016, [place] [employer]. Diabetes Care. 2016.39(Suppl 1). Performed By: #### CBCDIF, P T, PTT, CK, CMP, LIPA, MG1 #### [facility] [address] [place] [phone] Potassium [Moles/Vol] 5.0 3.7-5.1 mmol/L Normal 03-20-19 [facility] (77174) Comment: Performed By: #### CBCDIF, P T, PTT, CK, CMP, LIPA, MG1 #### [facility] [address] [place], [place] [phone] Protein [Mass/Vol] 6.7 6.3-8.0 g/dL Normal 03-20-2019 [facility] (94268) Comment: Performed By: #### CBCDIF, P T, PTT, CK, CMP, LIPA, MG1 #### [facility] [address] [place], [place] [address] Urea nitrogen [Mass/Vol] 20 9-24 mg/dL Normal 03-20 [facility] (62945) Comment: Performed By: #### CBCDIF, P T, PTT, CK, CMP, LIPA, MG1 #### [facility] [address] [place], [place] [phone] cbc and differential on 2019-03-20 Abs Baso 0.03 <0.11 k/uL Normal 03-20-2019 [facility] (41130) Comment: Performed By: #### CBCDIF, P T, PTT, CK, CMP, LIPA, MG1 #### [facility] [address] [place], [place] [address] Performed By: #### PTT, CBCD IF, PHOS, CMP, LACT, PT, MG1 ####[facility] [address] [place], [place] [phone] Abs Zapata 0.56 <0.87 k/uL Normal 03-20-2019 [facility] (51312) Comment: Performed By: #### PTT, CBCD IF, PHOS, CMP, LACT, PT, MG1 ####[facility] [address] [place], [place] [phone] Abs Neut 3.39 1.45-7.50 k/uL Normal 03-20-2019 [facility] (70488) Comment: Performed By: #### PTT, CBCD IF, PHOS, CMP, LACT, PT, MG1 ####[facility], [place] [phone] Absolute nRBC <0.01 <0.01 Normal 03-20-2019 [facility] (92133) Comment: Performed By: #### PTT, CBCD IF, PHOS, CMP, LACT, PT, MG1 ####[facility], [place] [phone] Basophils/100 WBC (Bld) 0.6 % Normal 2019 [facility] (13965) Comment: Performed By: #### PTT, CBCD IF, PHOS, CMP, LACT, PT, MG1 ####[place] [address], [place] [phone] DTYPE Auto Diff Normal 03-20-2019 [facility] (85886) Comment: Performed By: #### PTT, CBCD IF, PHOS, CMP, LACT, PT, MG1 ####[facility], [place] [phone] Eosinophils (Bld) [#/Vol] 0.10 <0.46 k/uL Normal [facility] (64297) Comment: Performed By: #### PTT, CBCD IF, PHOS, CMP, LACT, PT, MG1 ####[facility], [place] [phone] Eosinophils/100 WBC (Bld) 2.1 % Normal [facility] (32446) Comment: Performed By: #### PTT, CBCD IF, PHOS, CMP, LACT, PT, MG1 ####[facility] [address], [place] [phone] Erythrocyte distribution 15.2 11.5-15.0 % High 03-20 [facility] width (RBC) [Ratio] [place] (97867) Comment: Performed By: #### PTT, CBCD IF, PHOS, CMP, LACT, PT, MG1 ####[facility], [place] [phone] Hematocrit (Bld) [Volume 35.4 39.0-51.0 % Low 03-20 [facility] fraction] (45411) Comment: Performed By: #### PTT, CBCD IF, PHOS, CMP, LACT, PT, MG1 ####[place] [address], [place] [phone] Hemoglobin (Bld) 11.7 13.0-17.0 g/dL Low 03-20-2019 [facility] [Mass/Vol] [place] (33718) Comment: Performed By: #### PTT, CBCD IF, PHOS, CMP, LACT, PT, MG1 ####[place] [address], [place] [phone] Lymphocytes (Bld) [#/Vol] 0.63 1.00-4.00 k/uL Low 02-0 [facility] (57357) Comment: Performed By: #### PTT, CBCD IF, PHOS, CMP, LACT, PT, MG1 ####[place] [address], [place] [phone] Lymphocytes/100 WBC (Bld) 13.3 % Normal 0 [facility] (05778) Comment: Performed By: #### PTT, CBCD IF, PHOS, CMP, LACT, PT, MG1 ####[place] [address], [place] [phone] MCH (RBC) [Entitic mass] 32.4 26.0-34.0 pG Normal 03-20 [facility] (40015) Comment: Performed By: #### PTT, CBCD IF, PHOS, CMP, LACT, PT, MG1 ####[place] [address] [phone] MCHC (RBC) [Mass/Vol] 33.1 30.5-36.0 g/dL Normal 03-20-19 [facility] (36377) Comment: Performed By: #### CBCDIF, P T, PTT, CK, CMP, LIPA, MG1 #### [facility] [address] [place] [address] Performed By: #### PTT, CBCD IF, PHOS, CMP, LACT, PT, MG1 ####[facility], [place] [phone] MCV (RBC) [Entitic vol] 98.1 80.0-100.0 fL Normal 03-20 [facility] (09397) Comment: Performed By: #### PTT, CBCD IF, PHOS, CMP, LACT, PT, MG1 ####[facility], [place] [phone] Monocytes/100 WBC (Bld) 11.8 % Normal 2019 [facility] (90949) Comment: Performed By: #### PTT, CBCD IF, PHOS, CMP, LACT, PT, MG1 ####[facility], [place] [phone] Neutrophils/100 WBC (Bld) 72.2 % Normal [facility] (25573) Comment: Performed By: #### PTT, CBCD IF, PHOS, CMP, LACT, PT, MG1 ####[facility] [address], [place] [phone] NRBCs 0.0 0 /100 WBC Normal 03-20-2019 [facility] (22002) Comment: Performed By: #### PTT, CBCD IF, PHOS, CMP, LACT, PT, MG1 ####[facility], [place] [phone] Platelet mean volume (Bld) 11.8 9.0-12.7 fL Normal [facility] (63126) [Entitic vol] Comment: Performed By: #### CBCDIF, P T, PTT, CK, CMP, LIPA, MG1 #### [facility] [address] [place] [address] Performed By: #### PTT, CBCD IF, PHOS, CMP, LACT, PT, MG1 ####[facility] [address], [place] [phone] Platelets (Bld) [#/Vol] 85 150-400 k/uL Low 2019 [facility] (11985) Comment: Result Comment: No clot dete cted. Performed By: #### PTT, CBCD IF, PHOS, CMP, LACT, PT, MG1 ####[facility] [place], [place] [phone] RBC (Bld) [#/Vol] 3.61 4.20-6.00 m/uL Low 03-20-2019 [facility] (49577) Comment: Performed By: #### PTT, CBCD IF, PHOS, CMP, LACT, PT, MG1 ####[facility] [address], [place] [phone] WBC (Bld) [#/Vol] 4.73 3.70-11.00 k/uL Normal 03-20-2019 [facility] (99721) Comment: Performed By: #### PTT, CBCD IF, PHOS, CMP, LACT, PT, MG1 ####[facility] [address], [place] [phone] Abs Zapata 0.61 <0.87 k/uL Normal 03-20-2019 [facility] (25156) Comment: Performed By: #### CBCDIF, P T, PTT, CK, CMP, LIPA, MG1 #### [facility] [address] [place] [address] Abs Neut 4.79 1.45-7.50 k/uL Normal 03-20-2019 [facility] (81484) Comment: Performed By: #### CBCDIF, P T, PTT, CK, CMP, LIPA, MG1 #### [facility] [address] [place], [place] [address] Basophils/100 WBC (Bld) 0.5 % Normal 2019 [facility] (85530) Comment: Performed By: #### CBCDIF, P T, PTT, CK, CMP, LIPA, MG1 #### [facility] [address] [place] [address] Eosinophils (Bld) [#/Vol] 0.11 <0.46 k/uL Normal [facility] (16686) Comment: Performed By: #### CBCDIF, P T, PTT, CK, CMP, LIPA, MG1 #### [facility] [address] [place] [address] Eosinophils/100 WBC (Bld) 1.8 % Normal [facility] (51884) Comment: Performed By: #### CBCDIF, P T, PTT, CK, CMP, LIPA, MG1 #### [facility] [address] [place] [address] Erythrocyte distribution 15.3 11.5-15.0 % High 03-20 [facility] (53680) width (RBC) [Ratio] Comment: Performed By: #### CBCDIF, P T, PTT, CK, CMP, LIPA, MG1 #### [facility] [address] [place], [place] [phone] Hematocrit (Bld) [Volume 39.6 39.0-51.0 % Normal 03-20 [facility] (04671) fraction] Comment: Performed By: #### CBCDIF, P T, PTT, CK, CMP, LIPA, MG1 #### [facility] [address] [place], [place] [address] Hemoglobin (Bld) 13.1 13.0-17.0 g/dL Normal 03-20-2019 [facility] [Mass/Vol] (72467) Comment: Performed By: #### CBCDIF, P T, PTT, CK, CMP, LIPA, MG1 #### [facility] [address] [facility] [phone] Lymphocytes (Bld) [#/Vol] 0.56 1.00-4.00 k/uL Low [facility] (00214) Comment: Performed By: #### CBCDIF, P T, PTT, CK, CMP, LIPA, MG1 #### [facility] [address] [facility] [phone] Lymphocytes/100 WBC (Bld) 9.2 % Normal [facility] (12276) Comment: Performed By: #### CBCDIF, P T, PTT, CK, CMP, LIPA, MG1 #### [facility] [address] [facility] [phone] MCH (RBC) [Entitic mass] 32.1 26.0-34.0 pG Normal 03-20 [facility] (51281) Comment: Performed By: #### CBCDIF, P T, PTT, CK, CMP, LIPA, MG1 #### [facility] [address] [place] [address] MCV (RBC) [Entitic vol] 97.1 80.0-100.0 fL Normal 03-20 [facility] (83323) Comment: Performed By: #### CBCDIF, P T, PTT, CK, CMP, LIPA, MG1 #### [facility] [address] [facility] [phone] Monocytes/100 WBC (Bld) 10.0 % Normal 2019 [facility] (26730) Comment: Performed By: #### CBCDIF, P T, PTT, CK, CMP, LIPA, MG1 #### [facility] [address] [facility] [phone] Neutrophils/100 WBC (Bld) 78.5 % Normal [facility] (02650) Comment: Performed By: #### CBCDIF, P T, PTT, CK, CMP, LIPA, MG1 #### [facility] [address] [place] [address] Platelets (Bld) [#/Vol] 112 150-400 k/uL Low 2019 [facility] (33237) Comment: Performed By: #### CBCDIF, P T, PTT, CK, CMP, LIPA, MG1 #### [facility] [address] [place] [address] RBC (Bld) [#/Vol] 4.08 4.20-6.00 m/uL Low 03-20-2019 [facility] (57741) Comment: Performed By: #### CBCDIF, P T, PTT, CK, CMP, LIPA, MG1 #### [facility] [address] [place] [address] WBC (Bld) [#/Vol] 6.10 3.70-11.00 k/uL Normal 03-20-2019 [facility] (65139) Comment: Performed By: #### CBCDIF, P T, PTT, CK, CMP, LIPA, MG1 #### [facility] [address] [place] [address] aptt on 2019-03-20 aPTT Coag (Bld) [Time] 24.5 23.0-32.[address] [facility] (12277) Comment: Result Comment: Unfractionat ed Heparin Therapeutic Ranges:Standard Heparin Nomogram: 53 to 78 seconds ( anti-Xa level of 0.3 to 0.7 U/ml)Low Dose/ACS Nomogram: 49 to 67 seconds ( anti-Xa level of 0.2 to 0.5 U/ml)Stroke Treatment Nomogram: 49 to 67 seconds (anti-Xa level of 0.2 to 0.5 U/ml)Note: The APTT therapeutic range h as been determined for the current lot of laboratory APTT reagent in u se throughout the [facility]. Performed By: #### PTT, CBCD IF, PHOS, CMP, LACT, PT, MG1 ####[facility] [place], [place] [phone] aPTT Coag (Bld) [Time] 25.2 23.0-32.4 sec Normal [facility] (61819) Comment: Result Comment: Unfractionat ed Heparin Therapeutic Ranges: Standard Heparin Nomogram: 5 3 to 78 seconds (anti-Xa level of 0.3 to 0.7 U/ml) Low Dose/ACS Nomogram: 49 to 67 seconds (anti-Xa level of 0.2 to 0.5 U/ml) Stroke Treatment Nomogram: 4 9 to 67 seconds (anti-Xa level of 0.2 to 0.5 U/ml) Note: The APTT therapeutic r nicanor has been determined for the current lot of laboratory APTT reagent in use throughout the [facility]. Performed By: #### CBCDIF, P T, PTT, CK, CMP, LIPA, MG1 #### [facility] [address] [facility] [phone] [facility] on 08-04-00 [facility] HNO ID: [id number] Normal 020 [facility] Author: Stephanie Castro) JOSE [facility]on ([id number]) Service: Radiology Author Type: Clinical [employer] Hand Type: Allied Health Filed: 03/20/2019 12:09 PM Note Text: Radiology Service Progress Note PATIENT NAME: Venkata Leal DATE OF SERVICE: March 20, 2019 TIME: 12:09 PM PATIENT IDENTITY VERIFICATION COMPLETED USING TWO (2) IDENTI FIERS: Name and Date of confirmed by patient verbally and Name and Date of confirmed by identification band. PATIENT GENDER DATA: Male PATIENT RELEVANT IMPLANT DATA REVIEWED: Not Applicable RADIOLOGY DEPARTMENT: CT; Exam(s) Completed: Abdomen/Pelvis PERIPHERAL IV DATA: Not applicable SIGNED BY: JOSE Zhu March 20, 2019 12:09 PM progress on 2019-02 PROGRESS Normal 03-19-2019 [facility] ([id number]) obsolete on 2019-02 OBSOLETE Normal 03-19-2019 [facility] ([id number]) cnov on 2019-03-19 CNOV Normal 03-19-2019 [facility] ([id number]) cnco on 2019-03-18 CNCO Letter Text Normal 03-18-2019 [facility] (26090) cnpn on 2019-03-17 CNPN Normal 03-17-2019 [facility] ([id number]) obsolete on 2019-02 OBSOLETE Normal 03-12-2019 [facility] (98802) hosp on 2019-03-11 HOSP Normal 03-11-2019 [facility] (39961) progress on 2019-02 PROGRESS Normal 03-10-2019 [facility] (20575) cnov on 2019-03-10 CNOV Normal 03-10-2019 [facility] (45112) magnesium on 03-09 Magnesium [Mass/Vol] 1.9 1.7-2.3 mg/dL Normal [facility] (67644) basic metabolic panl on 2019-03-09 Anion gap [Moles/Vol] 9 9-18 mmol/L Normal 03-09-19 [facility] (12325) Calcium [Mass/Vol] 10.0 8.5-10.2 mg/dL Normal 03-09-2019 [facility] (59109) Chloride [Moles/Vol] 102 97-105 mmol/L Normal 0 [facility] (89770) CO2 [Moles/Vol] 26 22-30 mmol/L Normal 03-09-2019 [facility] (73076) Creatinine [Mass/Vol] 2.26 0.73-1.22 mg/dL High 03-09-19 [facility] (78709) eGFR- Amer. 35 Normal 03-09-2019 [facility] (02462) GFR/1.73 sq M predicted 29 . Normal 2019 [facility] among non-blacks MDRD [place] (85681) (S/P/Bld) [Vol rate/Area] Comment: Result Comment: eGFR (Estima pratik GFR) Units of measure: mL/min/1.73 meters squaredeGFR is derived from the reexpressed MDRD Study equation using the following parameters: serum creatinine, age, gender and race. The creatinine assay has been calibrated to be traceable to IDMS.An eGFR <60 mL/min/1.73m2 for >3 months is consistent with chronic kidney disease. Refer to KDOQI guidelines for clinical inte rpretation.In patients with unstable renal function, e.g. those with ac cowlitz kidney injury, the eGFR may not accurately reflect actual GFR. Glucose [Mass/Vol] 189 74-99 mg/dL High 03-09-2019 [facility] (04862) Comment: Result Comment: The [place] Diabetes [employer] (ADA) provides guidance for cutoff values for fastin g glucose and random glucose. The ADA defines fasting as no caloric intake for at least 8 hours. Fasting plasma glucose results between 100 to 125 m g/dL indicate increased risk for diabetes (prediabetes).Fasting plasma glucose results greater than or equal to 126 mg/dL meet the criteria for diagnosis of diabetes. In the absence of unequivocal hyperglycemia, r esults should be confirmed by repeat testing. In a patient with classic sympt oms of hyperglycemia or hyperglycemic crisis, random plasma glucose result s greater than or equal to 200 mg/dL meet the criteria for diagnosis of di abetes.Reference: Standards of Medical Care in Diabetes 2016, [place] Diab etes Association. Diabetes Care. 2016.39(Suppl 1). Potassium [Moles/Vol] 5.0 3.7-5.1 mmol/L Normal 03-09-19 [facility] (91201) Sodium [Moles/Vol] 137 136-144 mmol/L Normal 03-09-2019 [facility] (44278) Urea nitrogen [Mass/Vol] 29 9-24 mg/dL High 03-09 [facility] (45513) progress on 2019-02 PROGRESS Normal 03-05-2019 [facility] (54328) cnptoutreach on CNPTOUTREACH Normal 03-05-2019 [facility] (06295) progress on 2019-02 PROGRESS Normal 03-03-2019 [facility] (02757) cnov on 2019-03-03 CNOV Normal 03-03-2019 [facility] (78232) obsolete on 2019-02 OBSOLETE Normal 03-02-2019 [facility] (29454) progress on 2019-02 PROGRESS Normal 02-26-2019 [facility] (19604) cnov on 2019-02-26 CNOV Normal 02-26-2019 [facility] (20490) progress on 2019-02 PROGRESS Normal 02-18-2019 [facility] (79358) PROGRESS Normal 02-18-2019 [facility] (31775) cnov on 2019-02-18 CNOV Normal 02-18-2019 [facility] (72753) us abd spleen -nb o n 2019-02-12 US ABD SPLEEN -NB Normal 02-12-2019 [facility] (92991) us abd right upper quadrant on 2019-02-12 US ABD RIGHT UPPER QUADRANT Normal [facility] (49657) progress on 2019-01 PROGRESS Normal 02-12-2019 [facility] (56500) c difficile pcr on 2019-02-11 C difficile PCR Negative for C. Normal 02-12-20 [facility] difficile toxin by PCR [place] (65872) Comment: Performed By: #### CDPCR ### #[facility] [address] [place], [place] [phone] devonte abs gr + cbc on 2019-02-09 Absol Gran Count 3.54 1.45-7.50 k/uL Normal 02-09-2019 [facility] (43830) Erythrocyte distribution 16.1 11.5-15.0 % High 02-09 [facility] width (RBC) [Ratio] [place] (71285) Hematocrit (Bld) [Volume 36.5 39.0-51.0 % Low 02-09 [facility] fraction] [place] (48959) Hemoglobin (Bld) 12.0 13.0-17.0 g/dL Low 02-09-2019 [facility] [Mass/Vol] [place] (57848) MCH (RBC) [Entitic mass] 32.9 26.0-34.0 pg Normal 02-09 [facility] (25356) MCHC (RBC) [Mass/Vol] 32.9 30.5-36.0 g/dL Normal 02-10-[address] [facility] (92401) MCV (RBC) [Entitic vol] 100.0 80.0-100.0 fL Normal 02-09 [facility] (83546) Platelet mean volume 11.9 9.0-12.7 fL Normal 9 [facility] (Bld) [Entitic vol] [place] (46457) Comment: Result Comment: Test perform ed by: [facility] [address] [place], [place] [address]. RBC (Bld) [#/Vol] 3.65 4.20-6.00 m/uL Low 02-09-2019 [facility] (26703) WBC (Bld) [#/Vol] 4.73 3.70-11.00 k/uL Normal 02-09-2019 [facility] (02607) Devonte Platelet Cnt 113 150-400 k/uL Low 9 [facility] (21291) progress on 2019-01 PROGRESS Normal 02-09-2019 [facility] (44626) iron and tibc on 05-02-24 Iron [Mass/Vol] 51 41-186 ug/dL Normal 02-09-2019 [facility] (13953) Comment: Performed By: #### CRP, IRON , FERR ####[place] [address] [phone] TIBC 338 232-386 ug/dL Normal 02-09-2019 [facility] (83264) Comment: Performed By: #### CRP, IRON , FERR ####[place] [address] [phone] Transferrin Saturatn 15 15-57 % Normal 9 [facility] (42753) Comment: Performed By: #### CRP, IRON , FERR ####[place] [address] [phone] ferritin on 2019-01 Ferritin [Mass/Vol] 407.0 30.3-565.7 ng/mL Normal 9 [facility] (70900) Comment: Performed By: #### CRP, IRON , FERR ####[place] [address] [phone] comp metabolic panel on 2019-02-09 Albumin [Mass/Vol] 3.9 3.9-4.9 g/dL Normal 02-09-2019 [facility] (35691) ALP [Catalytic 242 38-113 U/L High 02-09-2019 [facility] activity/Vol] [facility] and (35314) ALT [Catalytic 27 10-54 U/L Normal 02-09-2019 [facility] activity/Vol] [facility] and (93015) Anion gap [Moles/Vol] 11 9-18 mmol/L Normal 02-10-[address] [facility] (02471) AST [Catalytic 71 14-40 U/L High 02-09-2019 [facility] activity/Vol] [facility] and (70850) Bilirubin [Mass/Vol] 0.5 0.2-1.3 mg/dL Normal 9 [facility] (74438) Calcium [Mass/Vol] 9.5 8.5-10.2 mg/dL Normal 02-09-2019 [facility] (36104) Chloride [Moles/Vol] 106 97-105 mmol/L High 9 [facility] (56905) CO2 [Moles/Vol] 25 22-30 mmol/L Normal 02-09-2019 [facility] (61257) Creatinine [Mass/Vol] 1.67 0.73-1.22 mg/dL High 02-10-[address] [facility] (64645) eGFR- Amer. 49 Normal 02-09-2019 [facility] (32263) GFR/1.73 sq M predicted 41 . Normal 2018 [facility] among non-blacks MDRD [place] (11634) (S/P/Bld) [Vol rate/Area] Comment: Result Comment: eGFR (Estima pratik GFR) Units of measure: mL/min/1.73 meters squaredeGFR is derived from the reexpressed MDRD Study equation using the following parameters: serum creatinine, age, gender and race. The creatinine assay has been calibrated to be traceable to IDMS.An eGFR <60 mL/min/1.73m2 for >3 months is consistent with chronic kidney disease. Refer to KDOQI guidelines for clinical inte rpretation.In patients with unstable renal function, e.g. those with ac cowlitz kidney injury, the eGFR may not accurately reflect actual GFR. Glucose [Mass/Vol] 133 74-99 mg/dL High 02-09-2019 [facility] (97363) Comment: Result Comment: The [place] Diabetes Association (ADA) provides guidance for cutoff values for fastin g glucose and random glucose. The ADA defines fasting as no caloric intake for at least 8 hours. Fasting plasma glucose results between 100 to 125 m g/dL indicate increased risk for diabetes (prediabetes).Fasting plasma glucose results greater than or equal to 126 mg/dL meet the criteria for diagnosis of diabetes. In the absence of unequivocal hyperglycemia, r esults should be confirmed by repeat testing. In a patient with classic sympt oms of hyperglycemia or hyperglycemic crisis, random plasma glucose result s greater than or equal to 200 mg/dL meet the criteria for diagnosis of di abetes.Reference: Standards of Medical Care in Diabetes 2016, [place] Diab etes Association. Diabetes Care. 2016.39(Suppl 1). Potassium [Moles/Vol] 4.3 3.7-5.1 mmol/L Normal 02-10-20 [facility] (84969) Protein [Mass/Vol] 6.6 6.3-8.0 g/dL Normal 02-09-2019 [facility] (20672) Sodium [Moles/Vol] 142 136-144 mmol/L Normal 02-09-2019 [facility] (36043) Urea nitrogen [Mass/Vol] 10 9-24 mg/dL Normal 02-09 [facility] (97537) cnovsp on 2019-01-18 4 CNOVSP Normal 02-09-2019 [facility] (57226) c-reactive protein on 2019-02-09 CRP [Mass/Vol] 1.6 <0.9 mg/dL High 02-09-2019 [facility] (33820) Comment: Performed By: #### CRP, IRON , FERR ####[facility] [address] [place], [place] [phone] obsolete on 2019-01 OBSOLETE Normal 02-08-2019 [facility] (65562) progress on 2019-01 PROGRESS Normal 02-05-2019 [facility] (29708) cnptoutreach on 201 10-30-19 CNPTOUTREACH Normal 02-05-2019 [facility] (32912) phosphorus on 02-04 Phosphate [Mass/Vol] 2.6 2.7-4.8 mg/dL Low 9 [facility] (81592) Comment: Performed By: #### BMP, MG1, PHOS, CBC ####[address] [phone] magnesium on 2018-02 Magnesium [Mass/Vol] 2.3 1.7-2.3 mg/dL Normal 9 [facility] (92822) Comment: Performed By: #### BMP, MG1, PHOS, CBC ####[place] [address] [phone] ir central line removal on 2019-02-04 IR CENTRAL LINE REMOVAL Normal 2018 [facility] (90195) cnds on 2019-02-04 CNDS Normal 02-04-2019 [facility] (46277) cbc on 2019-02-04 Absolute nRBC <0.01 <0.01 Normal 02-04-2019 [facility] (82786) Comment: Performed By: #### CBC ####C [address] [phone] Erythrocyte distribution 16.2 11.5-15.0 % High 02-04 [facility] width (RBC) [Ratio] [place] (87252) Comment: Performed By: #### CBC ####C [address] [phone] Hematocrit (Bld) [Volume 32.3 39.0-51.0 % Low 02-04 [facility] fraction] (77983) Comment: Performed By: #### CBC ####C [address] [phone] Hemoglobin (Bld) 10.4 13.0-17.0 g/dL Low 02-04-2019 [facility] [Mass/Vol] [place] (94071) Comment: Performed By: #### CBC ####C [address] [phone] MCH (RBC) [Entitic mass] 32.9 26.0-34.0 pG Normal 02-04 [facility] (87225) Comment: Performed By: #### CBC ####C [address] [phone] MCHC (RBC) [Mass/Vol] 32.2 30.5-36.0 g/dL Normal 02-05-[address] [facility] (80171) Comment: Performed By: #### CBC ####C [address] [phone] MCV (RBC) [Entitic vol] 102.2 80.0-100.0 fL High 02-04 [facility] (63858) Comment: Performed By: #### CBC ####C [address] [phone] Platelet mean volume 12.4 9.0-12.7 fL Normal 9 [facility] (Bld) [Entitic vol] [place] (55685) Comment: Performed By: #### CBC ####C [address] [phone] Platelets (Bld) [#/Vol] 91 150-400 k/uL Low 2018 [facility] (96463) Comment: Result Comment: No clot dete cted. Performed By: #### CBC ####C [address] [phone] RBC (Bld) [#/Vol] 3.16 4.20-6.00 m/uL Low 02-04-2019 [facility] (98680) Comment: Performed By: #### CBC ####C [address] [phone] WBC (Bld) [#/Vol] 3.21 3.70-11.00 k/uL Low 02-04-2019 [facility] (45350) Comment: Performed By: #### CBC ####C [address] [phone] Absolute nRBC <0.01 <0.01 Normal 02-04-2019 [facility] (90566) Comment: Performed By: #### BMP, MG1, PHOS, CBC ####[place] [address] [phone] Erythrocyte distribution 16.0 11.5-15.0 % High 02-04 [facility] width (RBC) [Ratio] [place] (21158) Comment: Performed By: #### BMP, MG1, PHOS, CBC ####[place] [address] [phone] Hematocrit (Bld) [Volume 29.6 39.0-51.0 % Low 02-04 [facility] fraction] (60267) Comment: Performed By: #### BMP, MG1, PHOS, CBC ####[place] [address] [phone] Hemoglobin (Bld) 9.4 13.0-17.0 g/dL Low 02-04-2019 [facility] [Mass/Vol] [place] (17097) Comment: Performed By: #### BMP, MG1, PHOS, CBC ####[place] [address] [phone] MCH (RBC) [Entitic mass] 32.2 26.0-34.0 pG Normal 02-04 [facility] (06444) Comment: Performed By: #### BMP, MG1, PHOS, CBC ####[place] [address] [phone] MCHC (RBC) [Mass/Vol] 31.8 30.5-36.0 g/dL Normal 02-05-[address] [facility] (89236) Comment: Performed By: #### BMP, MG1, PHOS, CBC ####[address] [place] [address] [phone] MCV (RBC) [Entitic vol] 101.4 80.0-100.0 fL High 02-04 [facility] (89126) Comment: Performed By: #### BMP, MG1, PHOS, CBC ####[address] [place] [address] [phone] Platelet mean volume (Bld) 12.9 9.0-12.[address] [facility] [Entitic vol] (37402 ) Comment: Performed By: #### BMP, MG1, PHOS, CBC ####[address] [place] [address] [phone] Platelets (Bld) [#/Vol] 83 150-400 k/uL Low 2018 [facility] (93763) Comment: Result Comment: No clot dete cted. Performed By: #### BMP, MG1, PHOS, CBC ####[place] [address] [phone] RBC (Bld) [#/Vol] 2.92 4.20-6.00 m/uL Low 02-04-2019 [facility] (99856) Comment: Performed By: #### BMP, MG1, PHOS, CBC ####[address] [place] [address] [phone] WBC (Bld) [#/Vol] 2.73 3.70-11.00 k/uL Low 02-04-2019 [facility] (04177) Comment: Performed By: #### BMP, MG1, PHOS, CBC ####[address] [place] [address] [phone] case managem on 201 10-29-18 CASE MANAGEM Normal 02-04-2019 [facility] (67603) CASE MANAGEM Normal 02-04-2019 [facility] (60473) brief op not on 201 10-29-18 BRIEF OP NOT Normal 02-04-2019 [facility] (03318) basic metabolic panl on 2019-02-04 Anion gap [Moles/Vol] 11 9-18 mmol/L Normal 02-05-20 [facility] (13560) Comment: Performed By: #### BMP, MG1, PHOS, CBC ####[facility] [address] [place] [address] [phone] Calcium [Mass/Vol] 8.6 8.5-10.2 mg/dL Normal 02-04-2019 [facility] (06779) Comment: Performed By: #### BMP, MG1, PHOS, CBC ####[place] [address] [place] [place] [address] [phone] Chloride [Moles/Vol] 101 97-105 mmol/L Normal 9 [facility] (73672) Comment: Performed By: #### BMP, MG1, PHOS, CBC ####[facility] [place] [address] [phone] CO2 [Moles/Vol] 24 22-30 mmol/L Normal 02-04-2019 [facility] (41497) Comment: Performed By: #### BMP, MG1, PHOS, CBC ####[facility] [address] [place] [address] [phone] Creatinine [Mass/Vol] 2.07 0.73-1.22 mg/dL High 02-05-20 [facility] (98897) Comment: Performed By: #### BMP, MG1, PHOS, CBC ####[facility] [place] [address] [address] [phone] eGFR- Amer. 39 Normal 02-04-2019 [facility] (28573) Comment: Performed By: #### BMP, MG1, PHOS, CBC ####[facility] [address] [place] [address] [phone] GFR/1.73 sq M predicted among 32 . Normal 02-04-2019 [facility] non-blacks MDRD (S/P/Bld) [Vol (45325) rate/Area] Comment: Result Comment: eGFR (Estima pratik GFR) Units of measure: mL/min/1.73 meters squaredeGFR is derived from the reexpressed MDRD Study equation using the following parameters: serum creatinine, age, gender and race. The creatinine assay has been calibrated to be traceable to IDMS.An eGFR <60 mL/min/1.73m2 for >3 months is consistent with chronic kidney disease. Refer to KDOQI guidelines for clinical inte rpretation.In patients with unstable renal function, e.g. those with ac cowlitz kidney injury, the eGFR may not accurately reflect actual GFR. Performed By: #### CAMERON MG1, PHOS, CBC ####[facility] [place] [address] [phone] Glucose [Mass/Vol] 108 74-99 mg/dL High 02-04-2019 [facility] (62288) Comment: Result Comment: The [place] Diabetes [employer] (ADA) provides guidance for cutoff values for fastin g glucose and random glucose. The ADA defines fasting as no caloric intake for at least 8 hours. Fasting plasma glucose results between 100 to 125 m g/dL indicate increased risk for diabetes (prediabetes).Fasting plasma glucose results greater than or equal to 126 mg/dL meet the criteria for diagnosis of diabetes. In the absence of unequivocal hyperglycemia, r esults should be confirmed by repeat testing. In a patient with classic sympt oms of hyperglycemia or hyperglycemic crisis, random plasma glucose result s greater than or equal to 200 mg/dL meet the criteria for diagnosis of di abetes.Reference: Standards of Medical Care in Diabetes 2016, [place] Diab etes Association. Diabetes Care. 2016.39(Suppl 1). Performed By: #### BMP, MG1, PHOS, CBC ####[facility] [address] [place] [address] [phone] Potassium [Moles/Vol] 3.7 3.7-5.1 mmol/L Normal 02-05-[address] [facility] (14083) Comment: Performed By: #### BMP, MG1, PHOS, CBC ####[place] [address] [phone] Sodium [Moles/Vol] 136 136-144 mmol/L Normal 02-04-2019 [facility] (74963) Comment: Performed By: #### BMP, MG1, PHOS, CBC ####[place] [address] [phone] Urea nitrogen [Mass/Vol] 13 9-24 mg/dL Normal 02-04 [facility] (70334) Comment: Performed By: #### BMP, MG1, PHOS, CBC ####[place] [address] [phone] progress on 2019-[address] Normal 2019 [facility] (35525) phosphorus on 02-03 Phosphate [Mass/Vol] 2.6 2.7-4.8 mg/dL Low 9 [facility] (58021) Comment: Performed By: #### CBC, PHOS , MG1, BMP ####[place] [address] [phone] magnesium on 2018-02 Magnesium [Mass/Vol] 2.4 1.7-2.3 mg/dL High 9 [facility] (43362) Comment: Performed By: #### CBC, PHOS , MG1, BMP ####[place] [address] [phone] cbc on 2019 Absolute nRBC <0.01 <0.01 Normal 2019 [facility] (01383) Comment: Performed By: #### CBC, PHOS , MG1, BMP ####[place] [address] Erythrocyte distribution 16.1 11.5-15.0 % High 02-03 [facility] width (RBC) [Ratio] [place] (15960) Comment: Performed By: #### CBC, PHOS , MG1, BMP ####[place] [address] Hematocrit (Bld) [Volume 32.3 39.0-51.0 % Low 02-03 [facility] fraction] (56170) Comment: Performed By: #### CBC, PHOS , MG1, BMP ####[place] [address] Hemoglobin (Bld) 10.5 13.0-17.0 g/dL Low 2019 [facility] [Mass/Vol] [place] (56916) Comment: Performed By: #### CBC, PHOS , MG1, BMP ####[place] [address] MCH (RBC) [Entitic mass] 32.8 26.0-34.0 pG Normal 02-03 [facility] (44553) Comment: Performed By: #### CBC, PHOS , MG1, BMP ####[place] [address] MCHC (RBC) [Mass/Vol] 32.5 30.5-36.0 g/dL Normal 02-04-[address] [facility] (76529) Comment: Performed By: #### CBC, PHOS , MG1, BMP ####[place] [address] MCV (RBC) [Entitic vol] 100.9 80.0-100.0 fL High 02-03 [facility] (71255) Comment: Performed By: #### CBC, PHOS , MG1, BMP ####[place] [address] [phone] Platelet mean volume 12.1 9.0-12.7 fL Normal 9 [facility] (Bld) [Entitic vol] [place] (56433) Comment: Performed By: #### CBC, PHOS , MG1, BMP ####[place] [address] [phone] Platelets (Bld) [#/Vol] 99 150-400 k/uL Low 2018 [facility] (48069) Comment: Result Comment: No clot dete cted. Performed By: #### CBC, PHOS , MG1, BMP ####[place] [address] [phone] RBC (Bld) [#/Vol] 3.20 4.20-6.00 m/uL Low 2019 [facility] (03028) Comment: Performed By: #### CBC, PHOS , MG1, BMP ####[place] [address] [phone] WBC (Bld) [#/Vol] 4.55 3.70-11.00 k/uL Normal 2019 [facility] (53871) Comment: Performed By: #### CBC, PHOS , MG1, BMP ####[place] [address] [phone] basic metabolic panl on 2019 Anion gap [Moles/Vol] 16 9-18 mmol/L Normal 02-04-[address] [facility] (74846) Comment: Performed By: #### CBC, PHOS , MG1, BMP ####[place] [address] [phone] Calcium [Mass/Vol] 8.6 8.5-10.2 mg/dL Normal 2019 [facility] (25161) Comment: Performed By: #### CBC, PHOS , MG1, BMP ####[facility] [address] [address] [place] [address] [phone] Chloride [Moles/Vol] 99 97-105 mmol/L Normal 9 [facility] (91143) Comment: Performed By: #### CBC, PHOS , MG1, BMP ####[place] [address] [place] [address] [phone] CO2 [Moles/Vol] 22 22-30 mmol/L Normal 2019 [facility] (96404) Comment: Performed By: #### CBC, PHOS , MG1, BMP ####[place] [address] [place] [address] [phone] Creatinine [Mass/Vol] 2.28 0.73-1.22 mg/dL High 02-04-[address] [facility] (09413) Comment: Performed By: #### CBC, PHOS , MG1, BMP ####[facility] [place] [address] [phone] eGFR- Amer. [address] [facility] (60870) Comment: Performed By: #### CBC, PHOS , MG1, BMP ####[facility] [place] [address] [phone] GFR/1.73 sq M predicted among [address] [facility] non-blacks MDRD (S/P/Bld) [Vol (00741) rate/Area] Comment: Result Comment: eGFR (Estima pratik GFR) Units of measure: mL/min/1.73 meters squaredeGFR is derived from the reexpressed MDRD Study equation using the following parameters: serum creatinine, age, gender and race. The creatinine assay has been calibrated to be traceable to IDMS.An eGFR <60 mL/min/1.73m2 for >3 months is consistent with chronic kidney disease. Refer to KDOQI guidelines for clinical inte rpretation.In patients with unstable renal function, e.g. those with ac cowlitz kidney injury, the eGFR may not accurately reflect actual GFR. Performed By: #### CBC, PHOS , MG1, BMP ####[place] [address] [place] [address] [phone] Glucose [Mass/Vol] 126 74-99 mg/dL High 2019 [facility] (52262) Comment: Result Comment: The [place] Diabetes [employer] (ADA) provides guidance for cutoff values for fastin g glucose and random glucose. The ADA defines fasting as no caloric intake for at least 8 hours. Fasting plasma glucose results between 100 to 125 m g/dL indicate increased risk for diabetes (prediabetes).Fasting plasma glucose results greater than or equal to 126 mg/dL meet the criteria for diagnosis of diabetes. In the absence of unequivocal hyperglycemia, r esults should be confirmed by repeat testing. In a patient with classic sympt oms of hyperglycemia or hyperglycemic crisis, random plasma glucose result s greater than or equal to 200 mg/dL meet the criteria for diagnosis of di abetes.Reference: Standards of Medical Care in Diabetes 2016, [place] Diab etes Association. Diabetes Care. 2016.39(Suppl 1). Performed By: #### CBC, PHOS , MG1, BMP ####[place] [id number] [place] [address] [phone] Potassium [Moles/Vol] 4.1 3.7-5.1 mmol/L Normal 02-04-20 [facility] (51278) Comment: Performed By: #### CBC, PHOS , MG1, BMP ####[facility] [place] [address] [phone] Sodium [Moles/Vol] 137 136-144 mmol/L Normal 2019 [facility] (24940) Comment: Performed By: #### CBC, PHOS , MG1, BMP ####[place] [address] [place] [address] [phone] Urea nitrogen [Mass/Vol] 14 9-24 mg/dL Normal 02-03 [facility] (77100) Comment: Performed By: #### CBC, PHOS , MG1, BMP ####[facility], [place] [phone] xr chest 1v frontal port on 2019-02-02 XR CHEST 1V FRONTAL PORT Normal 02-02 [facility] (80769) therapy nt on 02-02 THERAPY NT Normal 02-02-2019 [facility] (04110) progress on 2019-01 PROGRESS Normal 02-02-2019 [facility] (88562) phosphorus on 02-02 Phosphate [Mass/Vol] 3.0 2.7-4.8 mg/dL Normal 9 [facility] (26896) Comment: Performed By: #### BMP, MG1, CBCDIF, PHOS ####[place] [address] [place], [place] [phone] magnesium on 2018-02 Magnesium [Mass/Vol] 1.6 1.7-2.3 mg/dL Low 9 [facility] (29231) Comment: Performed By: #### BMP, MG1, CBCDIF, PHOS ####[place] [address] [place], [place] [phone] cbc and differential on 2019-02-02 Abs Baso 0.04 <0.11 k/uL Normal 02-02-2019 [facility] (11432) Comment: Performed By: #### BMP, MG1, CBCDIF, PHOS ####[facility] [place], [place] [phone] Abs Zapata 0.43 <0.87 k/uL Normal 02-02-2019 [facility] (26581) Comment: Performed By: #### BMP, MG1, CBCDIF, PHOS ####[facility] [address] [place], [place] [phone] Abs Neut 4.33 1.45-7.50 k/uL Normal 02-02-2019 [facility] (09656) Comment: Performed By: #### BMP, MG1, CBCDIF, PHOS ####[facility] [address] [place], [place] [phone] Absolute nRBC <0.01 <0.01 Normal 02-02-2019 [facility] (49877) Comment: Performed By: #### BMP, MG1, CBCDIF, PHOS ####[facility] [address] [place], [place] [phone] Basophils/100 WBC (Bld) 0.7 % Normal 2018 [facility] (88437) Comment: Performed By: #### BMP, MG1, CBCDIF, PHOS ####[place] [address] [place], [place] [phone] DTYPE Auto Diff Normal 02-02-2019 [facility] (60353) Comment: Performed By: #### BMP, MG1, CBCDIF, PHOS ####[place] [address], [place] [phone] Eosinophils (Bld) [#/Vol] 0.10 <0.46 k/uL Normal 01-17 [facility] (14863) Comment: Performed By: #### BMP, MG1, CBCDIF, PHOS ####[facility], [place] [phone] Eosinophils/100 WBC (Bld) 1.8 % Normal 01-17 [facility] (95359) Comment: Performed By: #### BMP, MG1, CBCDIF, PHOS ####[facility] [address] [place], [place] [phone] Erythrocyte distribution 15.9 11.5-15.0 % High 02-02 [facility] width (RBC) [Ratio] [place] (36805) Comment: Performed By: #### BMP, MG1, CBCDIF, PHOS ####[facility] [address] [place], [place] [phone] Hematocrit (Bld) [Volume 34.7 39.0-51.0 % Low 02-02 [facility] fraction] (65630) Comment: Performed By: #### BMP, MG1, CBCDIF, PHOS ####[facility] [address] [place], [place] [phone] Hemoglobin (Bld) 11.5 13.0-17.0 g/dL Low 02-02-2019 [facility] [Mass/Vol] [place] (02552) Comment: Performed By: #### BMP, MG1, CBCDIF, PHOS ####[facility] [place] [phone] Lymphocytes (Bld) [#/Vol] 0.52 1.00-4.00 k/uL Low 01-17 [facility] (42588) Comment: Performed By: #### BMP, MG1, CBCDIF, PHOS ####[place] [address] [place] [phone] Lymphocytes/100 WBC (Bld) 9.6 % Normal 01-17 [facility] (77510) Comment: Performed By: #### BMP, MG1, CBCDIF, PHOS ####[facility] [place] [phone] MCH (RBC) [Entitic mass] 33.1 26.0-34.0 pG Normal 02-02 [facility] (41555) Comment: Performed By: #### BMP, MG1, CBCDIF, PHOS ####[facility] [place], [place] [phone] MCHC (RBC) [Mass/Vol] 33.1 30.5-36.0 g/dL Normal 02-03-[address] [facility] (80716) Comment: Performed By: #### BMP, MG1, CBCDIF, PHOS ####[facility] [address] [place], [place] [phone] MCV (RBC) [Entitic vol] 100.0 80.0-100.0 fL Normal 02-02 [facility] (39647) Comment: Performed By: #### BMP, MG1, CBCDIF, PHOS ####[facility] [address] [place], [place] [phone] Monocytes/100 WBC (Bld) 7.9 % Normal 2018 [facility] (65208) Comment: Performed By: #### BMP, MG1, CBCDIF, PHOS ####[facility] [address] [place], [place] [phone] Neutrophils/100 WBC (Bld) 80.0 % Normal 01-17 [facility] (92337) Comment: Performed By: #### BMP, MG1, CBCDIF, PHOS ####[facility] [place] [phone] NRBCs 0.0 0 /100 WBC Normal 02-02-2019 [facility] (55603) Comment: Performed By: #### BMP, MG1, CBCDIF, PHOS ####[facility] [address] [place], [place] [phone] Platelet mean volume 12.1 9.0-12.7 fL Normal 9 [facility] (Bld) [Entitic vol] [place] (47313) Comment: Performed By: #### BMP, MG1, CBCDIF, PHOS ####[facility] [address] [place], [place] [phone] Platelets (Bld) [#/Vol] 107 150-400 k/uL Low 2018 [facility] (45695) Comment: Performed By: #### BMP, MG1, CBCDIF, PHOS ####[facility] [address] [place], [place] [phone] RBC (Bld) [#/Vol] 3.47 4.20-6.00 m/uL Low 02-02-2019 [facility] [place] [facility] (80409) Comment: Performed By: #### BMP, MG1, CBCDIF, PHOS ####[facility] [address] [place], [place] [phone] WBC (Bld) [#/Vol] 5.44 3.70-11.00 k/uL Normal 02-02-2019 [facility] (67461) Comment: Performed By: #### BMP, MG1, CBCDIF, PHOS ####[facility] [address] [place], [place] [phone] case managem on 10-29-16 CASE MANAGEM Normal 02-02-2019 [facility] (16829) basic metabolic panl on 2019-02-02 Anion gap [Moles/Vol] 14 9-18 mmol/L Normal 02-03-[address] [facility] (26747) Comment: Performed By: #### BMP, MG1, CBCDIF, PHOS ####[facility] [place], [place] [phone] Calcium [Mass/Vol] 8.9 8.5-10.2 mg/dL Normal 02-02-2019 [facility] (36512) Comment: Performed By: #### BMP, MG1, CBCDIF, PHOS ####[facility] [address] [place], [place] [phone] Chloride [Moles/Vol] 99 97-105 mmol/L Normal 9 [facility] (07331) Comment: Performed By: #### BMP, MG1, CBCDIF, PHOS ####[facility] [address] [place], [place] [phone] CO2 [Moles/Vol] 24 22-30 mmol/L Normal 02-02-2019 [facility] (03119) Comment: Performed By: #### BMP, MG1, CBCDIF, PHOS ####[facility] [address] [place], [place] [phone] Creatinine [Mass/Vol] 2.30 0.73-1.22 mg/dL High 02-03-[address] [facility] (72803) Comment: Performed By: #### BMP, MG1, CBCDIF, PHOS ####[facility] [address] [place], [place] [phone] eGFR- Amer. 34 Normal 02-02-2019 [facility] (94189) Comment: Performed By: #### BMP, MG1, CBCDIF, PHOS ####[facility] [address] [place], [place] [phone] GFR/1.73 sq M predicted among 28 . Normal 02-02-2019 [facility] non-blacks MDRD (S/P/Bld) [Vol (08610) rate/Area] Comment: Result Comment: eGFR (Estima pratik GFR) Units of measure: mL/min/1.73 meters squaredeGFR is derived from the reexpressed MDRD Study equation using the following parameters: serum creatinine, age, gender and race. The creatinine assay has been calibrated to be traceable to IDMS.An eGFR <60 mL/min/1.73m2 for >3 months is consistent with chronic kidney disease. Refer to KDOQI guidelines for clinical inte rpretation.In patients with unstable renal function, e.g. those with ac cowlitz kidney injury, the eGFR may not accurately reflect actual GFR. Performed By: #### BMP, MG1, CBCDIF, PHOS ####[facility] [address] [place], [place] [phone] Glucose [Mass/Vol] 135 74-99 mg/dL High 02-02-2019 [facility] (10945) Comment: Result Comment: The [place] Diabetes Association (ADA) provides guidance for cutoff values for fastin g glucose and random glucose. The ADA defines fasting as no caloric intake for at least 8 hours. Fasting plasma glucose results between 100 to 125 m g/dL indicate increased risk for diabetes (prediabetes).Fasting plasma glucose results greater than or equal to 126 mg/dL meet the criteria for diagnosis of diabetes. In the absence of unequivocal hyperglycemia, r esults should be confirmed by repeat testing. In a patient with classic sympt oms of hyperglycemia or hyperglycemic crisis, random plasma glucose result s greater than or equal to 200 mg/dL meet the criteria for diagnosis of di abetes.Reference: Standards of Medical Care in Diabetes 2016, [place] Diab etes Association. Diabetes Care. 2016.39(Suppl 1). Performed By: #### BMP, MG1, CBCDIF, PHOS ####[facility] [address] [place], [place] [phone] Potassium [Moles/Vol] 4.4 3.7-5.1 mmol/L Normal 02-03-[address] [facility] (64914) Comment: Performed By: #### BMP, MG1, CBCDIF, PHOS ####[facility] [place], [place] [phone] Sodium [Moles/Vol] 137 136-144 mmol/L Normal 02-02-2019 [facility] (96567) Comment: Performed By: #### BMP, MG1, CBCDIF, PHOS ####[facility] [address] [place], [place] [phone] Urea nitrogen [Mass/Vol] 15 9-24 mg/dL Normal 02-02 [facility] (13510) Comment: Performed By: #### BMP, MG1, CBCDIF, PHOS ####[facility] [address] [place], [place] [phone] progress on 2019-01 PROGRESS Normal 02-01-2019 [facility] (67723) operative no on 10-30-15 OPERATIVE NO Normal 02-01-2019 [facility] (75752) cnptoutreach on 201 10-30-15 CNPTOUTREACH Normal 02-01-2019 [facility] (22175) case mgt init asses on 2019-02-01 CASE MGT INIT ASSES Normal 02-01-2019 [facility] (45968) brief op not on 201 10-30-15 BRIEF OP NOT Normal 02-01-2019 [facility] (55296) anes post on 2018-02 ANES POST Normal 02-01-2019 [facility] (89222) type and screen on 2019-01-29 ABO/RH(D) O POSITIVE Normal 01-29-2019 [facility] (61429) Comment: Performed By: #### TSCR #### [facility] [place], [place] [phone] protime on PT Coag (PPP) [Time] 1.1 0.9-1.[address] [facility] (66051) Comment: Result Comment: Vitamin K An tagonist (VKA) Therapeutic Range: INR 2 to 3 (Target INR of 2.5)Note: For patients treated with VKA drugs, such as warfarin, the [place] [employer] [employer] Chest Physicians 2012 Guideline recommends a therapeutic INR range of 2 to 3 (target INR of 2.5). This recommendation includes high-risk patients with antiphospholipid syndrome with previous arterial or venous thromboem bolism, current-generation mechanical or bioprosthetic aortic heart v alve replacement.Note: Patients with mechanical aortic valve replacement and additional risk factors for thromboembolic events (atrial fibrillation, previous thromboembolism, LV dysfunction, hypercoagulable conditions) or an older generation mechanical AVR (i.e., ball in-Cage) or any mechani veronika MVR should have a INR therapeutic range of 2.5 to 3.5 (target INR of 3) .Sawyer EDMONDSON, et al. Chest 2012, 141:7S-47SNishyadiel RA, et a l. [facility] 2017, 70: 252-289 Performed By: #### CMP, PT, CBC ####[facility] [place], [place] [phone] PT Coag (PPP) [Time] 11.7 9.7-13.[address] [facility] (21844) Comment: Performed By: #### CMP, PT, CBC ####[address] [phone] phosphorus on 01-29 Phosphate [Mass/Vol] 2.7 2.7-4.8 mg/dL Normal 9 [facility] (73515) Comment: Performed By: #### PHOS, MG1 ####[address] [phone] magnesium on 2018-02 Magnesium [Mass/Vol] 3.3 1.7-2.3 mg/dL High 9 [facility] (72696) Comment: Performed By: #### PHOS, MG1 ####[address] [phone] Magnesium [Mass/Vol] 1.6 1.7-2.3 mg/dL Low 9 [facility] (17508) comp metabolic panel on 2019-01-29 Albumin [Mass/Vol] 4.3 3.9-4.9 g/dL Normal 01-29-2019 [facility] (66502) Comment: Performed By: #### CMP, PT, CBC ####[address] [phone] ALP [Catalytic activity/Vol] 148 38-113 U/L High 1 04-01-2018 [facility] (24508) Comment: Performed By: #### CMP, PT, CBC ####[address] [phone] ALT [Catalytic activity/Vol] 42 10-54 U/L Normal 1 04-01-2018 [facility] (17046) Comment: Performed By: #### CMP, PT, CBC ####[address] [phone] Anion gap [Moles/Vol] 15 9-18 mmol/L Normal 01-30-20 [facility] (56839) Comment: Performed By: #### CMP, PT, CBC ####[facility], [place] [phone] AST [Catalytic activity/Vol] 59 14-40 U/L High 1 04-01-2018 [facility] (84057) Comment: Performed By: #### CMP, PT, CBC ####[place] [address], [place] [phone] Bilirubin [Mass/Vol] 0.4 0.2-1.3 mg/dL Normal 9 [facility] (29242) Comment: Performed By: #### CMP, PT, CBC ####[place] [address], [place] [phone] Calcium [Mass/Vol] 9.6 8.5-10.2 mg/dL Normal 01-29-2019 [facility] (40671) Comment: Performed By: #### CMP, PT, CBC ####[place] [address], [place] [phone] Chloride [Moles/Vol] 103 97-105 mmol/L Normal 9 [facility] (10233) Comment: Performed By: #### CMP, PT, CBC ####[place] [address], [place] [phone] CO2 [Moles/Vol] 22 22-30 mmol/L Normal 01-29-2019 [facility] (97501) Comment: Performed By: #### CMP, PT, CBC ####[place] [address], [place] [phone] Creatinine [Mass/Vol] 2.11 0.73-1.22 mg/dL High 01-30-[address] [facility] (53635) Comment: Performed By: #### CMP, PT, CBC ####[place] [address], [place] [phone] eGFR- Amer. 38 Normal 01-29-2019 [facility] (03201) Comment: Performed By: #### CMP, PT, CBC ####[facility] [address] [place], [place] [phone] GFR/1.73 sq M predicted among 31 . Normal 01-29-2019 [facility] non-blacks MDRD (S/P/Bld) [Vol (89949) rate/Area] Comment: Result Comment: eGFR (Estima pratik GFR) Units of measure: mL/min/1.73 meters squaredeGFR is derived from the reexpressed MDRD Study equation using the following parameters: serum creatinine, age, gender and race. The creatinine assay has been calibrated to be traceable to IDMS.An eGFR <60 mL/min/1.73m2 for >3 months is consistent with chronic kidney disease. Refer to KDOQI guidelines for clinical inte rpretation.In patients with unstable renal function, e.g. those with ac cowlitz kidney injury, the eGFR may not accurately reflect actual GFR. Performed By: #### CMP, PT, CBC ####[facility] [address] [place], [place] [phone] Glucose [Mass/Vol] 137 74-99 mg/dL High 01-29-2019 [facility] (48716) Comment: Result Comment: The [place] Diabetes Association (ADA) provides guidance for cutoff values for fastin g glucose and random glucose. The ADA defines fasting as no caloric intake for at least 8 hours. Fasting plasma glucose results between 100 to 125 m g/dL indicate increased risk for diabetes (prediabetes).Fasting plasma glucose results greater than or equal to 126 mg/dL meet the criteria for diagnosis of diabetes. In the absence of unequivocal hyperglycemia, r esults should be confirmed by repeat testing. In a patient with classic sympt oms of hyperglycemia or hyperglycemic crisis, random plasma glucose result s greater than or equal to 200 mg/dL meet the criteria for diagnosis of di abetes.Reference: Standards of Medical Care in Diabetes 2016, [place] Diab etes Association. Diabetes Care. 2016.39(Suppl 1). Performed By: #### CMP, PT, CBC ####[facility] [address] [place]are[place], [place] [phone] Potassium [Moles/Vol] 4.7 3.7-5.1 mmol/L Normal 01-30-[address] [facility] (84041) Comment: Performed By: #### CMP, PT, CBC ####[place] [address] [place] [phone] Protein [Mass/Vol] 7.2 6.3-8.0 g/dL Normal 01-29-2019 [facility] (61908) Comment: Performed By: #### CMP, PT, CBC ####[place] [address] [place] [phone] Sodium [Moles/Vol] 140 136-144 mmol/L Normal 01-29-2019 [facility] (52238) Comment: Performed By: #### CMP, PT, CBC ####[place] [address] [place] [phone] Urea nitrogen [Mass/Vol] 14 9-24 mg/dL Normal 01-29 [facility] (02075) Comment: Performed By: #### CMP, PT, CBC ####[place] [address] [place] [phone] cbc on 2019-01-29 Absolute nRBC <0.01 <0.01 Normal 01-29-2019 [facility] (80599) Comment: Performed By: #### CMP, PT, CBC ####[place] [address] [place] [phone] Erythrocyte distribution 16.0 11.5-15.0 % High 01-29 [facility] width (RBC) [Ratio] [place] (72066) Comment: Performed By: #### CMP, PT, CBC ####[place] [address] [place] [phone] Hematocrit (Bld) [Volume 40.6 39.0-51.0 % Normal 01-29 [facility] fraction] [place] (02529) Comment: Performed By: #### CMP, PT, CBC ####[place] [address], [place] [phone] Hemoglobin (Bld) 13.1 13.0-17.0 g/dL Normal 01-29-2019 [facility] [Mass/Vol] [place] (86830) Comment: Performed By: #### CMP, PT, CBC ####[address], [place] [phone]- [phone] MCH (RBC) [Entitic mass] 32.5 26.0-34.0 pG Normal 01-29 [facility] (41471) Comment: Performed By: #### CMP, PT, CBC ####[address], [place] [phone]- [phone] MCHC (RBC) [Mass/Vol] 32.3 30.5-36.0 g/dL Normal 01-30-[address] [facility] (47070) Comment: Performed By: #### CMP, PT, CBC ####[address], [place] [phone]- [phone] MCV (RBC) [Entitic vol] 100.7 80.0-100.0 fL High 01-29 [facility] (13069) Comment: Performed By: #### CMP, PT, CBC ####[address], [place] [phone]- [phone] Platelet mean volume 12.6 9.0-12.7 fL Normal 9 [facility] (Bld) [Entitic vol] [place] (92812) Comment: Performed By: #### CMP, PT, CBC ####[address], [place] [phone]- [phone] Platelets (Bld) [#/Vol] 144 150-400 k/uL Low 2018 [facility] (33892) Comment: Performed By: #### CMP, PT, CBC ####[place] [address] [place], [place] [phone]- [phone] RBC (Bld) [#/Vol] 4.03 4.20-6.00 m/uL Low 01-29-2019 [facility] [place] [facility] (59199) Comment: Performed By: #### CMP, PT, CBC ####[facility] [address] [place], [place] [phone]- [phone] WBC (Bld) [#/Vol] 5.38 3.70-11.00 k/uL Normal 01-29-2019 [facility] (36454) Comment: Performed By: #### CMP, PT, CBC ####[facility], [place] [phone]- [phone] devonte abs gr + cbc on 2019-01-27 Absol Gran Count 2.51 1.45-7.50 k/uL Normal 01-27-2019 [facility] (14701) Erythrocyte distribution 16.1 11.5-15.0 % High 01-27 [facility] width (RBC) [Ratio] [place] (11686) Hematocrit (Bld) [Volume 35.1 39.0-51.0 % Low 01-27 [facility] fraction] [place] (86328) Hemoglobin (Bld) 11.8 13.0-17.0 g/dL Low 01-27-2019 [facility] [Mass/Vol] [place] (73950) MCH (RBC) [Entitic mass] 33.1 26.0-34.0 pg Normal 01-27 [facility] (58302) MCHC (RBC) [Mass/Vol] 33.6 30.5-36.0 g/dL Normal 01-28-[address] [facility] (20711) MCV (RBC) [Entitic vol] 98.6 80.0-100.0 fL Normal 01-27 [facility] (13870) Platelet mean volume 11.6 9.0-12.7 fL Normal 9 [facility] (Bld) [Entitic vol] [place] (39092) Comment: Result Comment: Test perform ed by: [place] Jagjit Lynnurmila [place], [place], [place] [address]. RBC (Bld) [#/Vol] 3.56 4.20-6.00 m/uL Low 01-27-2019 [facility] (11413) WBC (Bld) [#/Vol] 3.73 3.70-11.00 k/uL Normal 01-27-2019 [facility] (76375) Garner Platelet Cnt 99 150-400 k/uL Low 9 [facility] (61604) phosphorus on 01-27 Phosphate [Mass/Vol] 3.0 2.7-4.8 mg/dL Normal 9 [facility] (46958) Comment: Performed By: #### PHOS #### [facility] [address] [place], [place] [phone] obsolete on 2019-01 OBSOLETE Normal 01-27-2019 [facility] (17720) magnesium on 2018-02 Magnesium [Mass/Vol] 2.0 1.7-2.3 mg/dL Normal 9 [facility] (04744) comp metabolic panel on 2019-01-27 Albumin [Mass/Vol] 4.1 3.9-4.9 g/dL Normal 01-27-2019 [facility] (27458) ALP [Catalytic 121 38-113 U/L High 01-27-2019 [facility] activity/Vol] [place] and (30596) ALT [Catalytic 23 10-54 U/L Normal 01-27-2019 [facility] activity/Vol] [place] and (26728) Anion gap [Moles/Vol] 11 9-18 mmol/L Normal 01-28-[address] [facility] (28511) AST [Catalytic 39 14-40 U/L Normal 01-27-2019 [facility] activity/Vol] Clevel and (55701) Bilirubin [Mass/Vol] 0.6 0.2-1.3 mg/dL Normal 9 [facility] (75747) Calcium [Mass/Vol] 9.4 8.5-10.2 mg/dL Normal 01-27-2019 [facility] (69780) Chloride [Moles/Vol] 100 97-105 mmol/L Normal 9 [facility] (11749) CO2 [Moles/Vol] 26 22-30 mmol/L Normal 01-27-2019 [facility] (65172) Creatinine [Mass/Vol] 2.09 0.73-1.22 mg/dL High 01-28-[address] [facility] (15680) eGFR- Amer. 38 Normal 01-27-2019 [facility] (89363) GFR/1.73 sq M predicted 32 . Normal 2018 [facility] among non-blacks MDRD [place] (33461) (S/P/Bld) [Vol rate/Area] Comment: Result Comment: eGFR (Estima pratik GFR) Units of measure: mL/min/1.73 meters squaredeGFR is derived from the reexpressed MDRD Study equation using the following parameters: serum creatinine, age, gender and race. The creatinine assay has been calibrated to be traceable to IDMS.An eGFR <60 mL/min/1.73m2 for >3 months is consistent with chronic kidney disease. Refer to KDOQI guidelines for clinical inte rpretation.In patients with unstable renal function, e.g. those with ac cowlitz kidney injury, the eGFR may not accurately reflect actual GFR. Glucose [Mass/Vol] 199 74-99 mg/dL High 01-27-2019 [facility] (78129) Comment: Result Comment: The [place] Diabetes Association (ADA) provides guidance for cutoff values for fastin g glucose and random glucose. The ADA defines fasting as no caloric intake for at least 8 hours. Fasting plasma glucose results between 100 to 125 m g/dL indicate increased risk for diabetes (prediabetes).Fasting plasma glucose results greater than or equal to 126 mg/dL meet the criteria for diagnosis of diabetes. In the absence of unequivocal hyperglycemia, r esults should be confirmed by repeat testing. In a patient with classic sympt oms of hyperglycemia or hyperglycemic crisis, random plasma glucose result s greater than or equal to 200 mg/dL meet the criteria for diagnosis of di abetes.Reference: Standards of Medical Care in Diabetes 2016, [place] [employer]. Diabetes Care. 2016.39(Suppl 1). Potassium [Moles/Vol] 4.5 3.7-5.1 mmol/L Normal 01-28-[address] [facility] (70600) Protein [Mass/Vol] 6.9 6.3-8.0 g/dL Normal 01-27-2019 [facility] (20456) Sodium [Moles/Vol] 137 136-144 mmol/L Normal 01-27-2019 [facility] (00239) Urea nitrogen [Mass/Vol] 17 9-24 mg/dL Normal 01-27 [facility] (46831) xr ileostomy injection on 2019-01-26 XR ILEOSTOMY INJECTION Normal 019 [facility] (85554) xr colon single contrast on 2019-01-26 XR COLON SINGLE CONTRAST Normal 01-26 [facility] (06867) progress on 2019-01 PROGRESS Normal 01-26-2019 [facility] (29451) PROGRESS Normal 01-26-2019 [facility] (31213) PROGRESS Normal 01-26-2019 [facility] (23209) PROGRESS Normal 01-26-2019 [facility] (02900) PROGRESS Normal 01-26-2019 [facility] (32143) history physical on 2019-01-26 HISTORY PHYSICAL Normal 01-26-2019 [facility] (43174) cnov on 2019-01-26 CNOV Normal 01-26-2019 [facility] (96083) CNOV Normal 01-26-2019 [facility] (17269) cnnurse on CNNURSE Normal 01-26-2019 [facility] (64736) [place] abs gr + cbc on 2019-01-25 Absol Gran Count 3.68 1.45-7.50 k/uL Normal 01-25-2019 [facility] (62541) Erythrocyte distribution 16.4 11.5-15.0 % High 01-25 [facility] width (RBC) [Ratio] [place] (86237) Hematocrit (Bld) [Volume 36.7 39.0-51.0 % Low 01-25 [facility] fraction] [place] (74304) Hemoglobin (Bld) 12.7 13.0-17.0 g/dL Low 01-25-2019 [facility] [Mass/Vol] [place] (19279) MCH (RBC) [Entitic mass] 34.0 26.0-34.0 pg Normal 01-25 [facility] (22650) MCHC (RBC) [Mass/Vol] 34.6 30.5-36.0 g/dL Normal 01-26-20 [facility] (74378) MCV (RBC) [Entitic vol] 98.1 80.0-100.0 fL Normal 01-25 [facility] (37443) Platelet mean volume 12.9 9.0-12.7 fL High 9 [facility] (Bld) [Entitic vol] [place] (23734) Comment: Result Comment: Test perform ed by: [facility] [place] [address] [place] [address] , [place], [place] [address]. RBC (Bld) [#/Vol] 3.74 4.20-6.00 m/uL Low 01-25-2019 [facility] (30214) WBC (d) [#/Vol] 5.11 3.70-11.00 k/uL Normal 01-25-2019 [facility] (90758) [place] Platelet Cnt 113 150-400 k/uL Low 9 [facility] (75941) magnesium on 2018-02 Magnesium [Mass/Vol] 1.3 1.7-2.3 mg/dL Low 9 [facility] (82499) comp metabolic panel on 2019-01-25 Albumin [Mass/Vol] 4.2 3.9-4.9 g/dL Normal 01-25-2019 [facility] (19337) ALP [Catalytic 118 38-113 U/L High 01-25-2019 [facility] activity/Vol] [place] (02644) ALT [Catalytic 23 10-54 U/L Normal 01-25-2019 [facility] activity/Vol] [place] and (94312) Anion gap [Moles/Vol] 13 9-18 mmol/L Normal 01-26-[address] [facility] (27979) AST [Catalytic 38 14-40 U/L Normal 01-25-2019 [facility] activity/Vol] [place] and (72424) Bilirubin [Mass/Vol] 0.5 0.2-1.3 mg/dL Normal 9 [facility] (38136) Calcium [Mass/Vol] 9.5 8.5-10.2 mg/dL Normal 01-25-2019 [facility] (54461) Chloride [Moles/Vol] 99 97-105 mmol/L Normal 9 [facility] (20951) CO2 [Moles/Vol] 25 22-30 mmol/L Normal 01-25-2019 [facility] (03673) Creatinine [Mass/Vol] 2.15 0.73-1.22 mg/dL High 01-26-[address] [facility] (35683) eGFR- Amer. 37 Normal 01-25-2019 [facility] (64980) GFR/1.73 sq M predicted 31 . Normal 2018 [facility] among non-blacks MDRD [place] (33108) (S/P/Bld) [Vol rate/Area] Comment: Result Comment: eGFR (Estima pratik GFR) Units of measure: mL/min/1.73 meters squaredeGFR is derived from the reexpressed MDRD Study equation using the following parameters: serum creatinine, age, gender and race. The creatinine assay has been calibrated to be traceable to IDMS.An eGFR <60 mL/min/1.73m2 for >3 months is consistent with chronic kidney disease. Refer to KDOQI guidelines for clinical inte rpretation.In patients with unstable renal function, e.g. those with ac cowlitz kidney injury, the eGFR may not accurately reflect actual GFR. Glucose [Mass/Vol] 205 74-99 mg/dL High 01-25-2019 [facility] (08626) Comment: Result Comment: The [place] Diabetes Association (ADA) provides guidance for cutoff values for fastin g glucose and random glucose. The ADA defines fasting as no caloric intake for at least 8 hours. Fasting plasma glucose results between 100 to 125 m g/dL indicate increased risk for diabetes (prediabetes).Fasting plasma glucose results greater than or equal to 126 mg/dL meet the criteria for diagnosis of diabetes. In the absence of unequivocal hyperglycemia, r esults should be confirmed by repeat testing. In a patient with classic sympt oms of hyperglycemia or hyperglycemic crisis, random plasma glucose result s greater than or equal to 200 mg/dL meet the criteria for diagnosis of di abetes.Reference: Standards of Medical Care in Diabetes 2016, [place] Di[employer] etes Association. Diabetes Care. 2016.39(Suppl 1). Potassium [Moles/Vol] 4.4 3.7-5.1 mmol/L Normal 01-26-20 [facility] (94455) Protein [Mass/Vol] 7.0 6.3-8.0 g/dL Normal 01-25-2019 [facility] (27605) Sodium [Moles/Vol] 137 136-144 mmol/L Normal 01-25-2019 [facility] (92175) Urea nitrogen [Mass/Vol] 16 9-24 mg/dL Normal 01-25 [facility] (36704) cnpn on 2019-01-20 CNPN Normal 01-20-2019 [facility] (42334) [place] abs gr + cbc on 2019-01-18 Absol Gran Count 5.21 1.45-7.50 k/uL Normal 01-18-2019 [facility] (96046) Erythrocyte distribution 16.1 11.5-15.0 % High 01-18 [facility] width (RBC) [Ratio] [place] (40213) Hematocrit (Bld) [Volume 41.2 39.0-51.0 % Normal 01-18 [facility] fraction] [place] (07382) Hemoglobin (Bld) 13.7 13.0-17.0 g/dL Normal 01-18-2019 [facility] [Mass/Vol] [place] (69067) MCH (RBC) [Entitic mass] 33.0 26.0-34.0 pg Normal 01-18 [facility] (67770) MCHC (RBC) [Mass/Vol] 33.3 30.5-36.0 g/dL Normal 01-19-20 [facility] (24680) MCV (RBC) [Entitic vol] 99.3 80.0-100.0 fL Normal 01-18 [facility] (95320) Platelet mean volume 11.9 9.0-12.7 fL Normal 9 [facility] (Bld) [Entitic vol] [place] (41389) RBC (d) [#/Vol] 4.15 4.20-6.00 m/uL Low 01-18-2019 [facility] (00365) WBC (Bld) [#/Vol] 6.92 3.70-11.00 k/uL Normal 01-18-2019 [facility] (56187) [place] Platelet Cnt 126 150-400 k/uL Low 9 [facility] (73601) magnesium on 2018-02 Magnesium [Mass/Vol] 1.8 1.7-2.3 mg/dL Normal 9 [facility] (20721) comp metabolic panel on 2019-01-18 Albumin [Mass/Vol] 4.5 3.9-4.9 g/dL Normal 01-18-2019 [facility] (00959) ALP [Catalytic 144 38-113 U/L High 01-18-2019 [facility] activity/Vol] [place] (44337) ALT [Catalytic 24 10-54 U/L Normal 01-18-2019 [facility] activity/Vol] [place] (48133) Anion gap [Moles/Vol] 13 9-18 mmol/L Normal 01-19-[address] [facility] (92741) AST [Catalytic 33 14-40 U/L Normal 01-18-2019 [facility] activity/Vol] [place] [facility] (31368) Bilirubin [Mass/Vol] 0.6 0.2-1.3 mg/dL Normal 9 [facility] (90316) Calcium [Mass/Vol] 10.1 8.5-10.2 mg/dL Normal 01-18-2019 [facility] (44577) Chloride [Moles/Vol] 99 97-105 mmol/L Normal 9 [facility] (71665) CO2 [Moles/Vol] 25 22-30 mmol/L Normal 01-18-2019 [facility] (73765) Creatinine [Mass/Vol] 2.41 0.73-1.22 mg/dL High 01-19-[address] [facility] (62590) eGFR- Amer. 32 Normal 01-18-2019 [facility] (80112) GFR/1.73 sq M predicted 27 . Normal 2018 [facility] among non-blacks MDRD [place] (15633) (S/P/Bld) [Vol rate/Area] Comment: Result Comment: eGFR (Estima pratik GFR) Units of measure: mL/min/1.73 meters squaredeGFR is derived from the reexpressed MDRD Study equation using the following parameters: serum creatinine, age, gender and race. The creatinine assay has been calibrated to be traceable to IDMS.An eGFR <60 mL/min/1.73m2 for >3 months is consistent with chronic kidney disease. Refer to KDOQI guidelines for clinical inte rpretation.In patients with unstable renal function, e.g. those with ac cowlitz kidney injury, the eGFR may not accurately reflect actual GFR. Glucose [Mass/Vol] 183 74-99 mg/dL High 01-18-2019 [facility] (18811) Comment: Result Comment: The [place] Diabetes Association (ADA) provides guidance for cutoff values for fastin g glucose and random glucose. The ADA defines fasting as no caloric intake for at least 8 hours. Fasting plasma glucose results between 100 to 125 m g/dL indicate increased risk for diabetes (prediabetes).Fasting plasma glucose results greater than or equal to 126 mg/dL meet the criteria for diagnosis of diabetes. In the absence of unequivocal hyperglycemia, r esults should be confirmed by repeat testing. In a patient with classic sympt oms of hyperglycemia or hyperglycemic crisis, random plasma glucose result s greater than or equal to 200 mg/dL meet the criteria for diagnosis of di abetes.Reference: Standards of Medical Care in Diabetes 2016, [place] Diab etes Association. Diabetes Care. 2016.39(Suppl 1). Potassium [Moles/Vol] 4.7 3.7-5.1 mmol/L Normal 01-19-[address] [facility] (03186) Protein [Mass/Vol] 7.6 6.3-8.0 g/dL Normal 01-18-2019 [facility] (65832) Sodium [Moles/Vol] 137 136-144 mmol/L Normal 01-18-2019 [facility] (27975) Urea nitrogen [Mass/Vol] 15 9-24 mg/dL Normal 01-18 [facility] (30979) progress on 2018-12 PROGRESS Normal 01-12-2019 [facility] (99122) cnovsp on 2018-12-19 6 CNOVSP Normal 01-12-2019 [facility] (95499) [place] abs gr + cbc on 2019-01-11 Absol Gran Count 3.75 1.45-7.50 k/uL Normal 01-11-2019 [facility] (36662) Erythrocyte distribution 15.8 11.5-15.0 % High 01-11 [facility] width (RBC) [Ratio] [place] (22597) Hematocrit (Bld) [Volume 34.7 39.0-51.0 % Low 01-11 [facility] fraction] [place] (11752) Hemoglobin (Bld) 11.4 13.0-17.0 g/dL Low 01-11-2019 [facility] [Mass/Vol] [place] (69988) MCH (RBC) [Entitic mass] 32.5 26.0-34.0 pg Normal 01-11 [facility] (87463) MCHC (RBC) [Mass/Vol] 32.9 30.5-36.0 g/dL Normal 01-12-[address] [facility] (80157) MCV (RBC) [Entitic vol] 98.9 80.0-100.0 fL Normal 01-11 [facility] (76845) Platelet mean volume 12.6 9.0-12.7 fL Normal 9 [facility] (Bld) [Entitic vol] [place] (58862) Comment: Result Comment: Test perform ed by: [facility] [place], [address] [place], [place] [address]. RBC (Bld) [#/Vol] 3.51 4.20-6.00 m/uL Low 01-11-2019 [facility] (67106) WBC (Bld) [#/Vol] 5.01 3.70-11.00 k/uL Normal 01-11-2019 [facility] (03235) [place] Platelet Cnt 117 150-400 k/uL Low 9 [facility] (50776) phosphorus on 01-11 Phosphate [Mass/Vol] 3.4 2.7-4.8 mg/dL Normal 9 [facility] (95636) Comment: Performed By: #### CHROMA ## ##[place] [id number] [place], [place] [phone]#### NSE ####[facility] [id number] [facility] [phone] obsolete on 2018-12 OBSOLETE Normal 01-11-2019 [facility] (56535) neuron spec enolase on 2019-01-11 Neuron Spec Enolase 4.2 3.7-8.9 ug/L Normal 01-11-2019 [facility] (90561) Comment: Result Comment: (NOTE)INTERP RETIVE INFORMATION: Neuron Specific EnolaseThis assay is performed using the [employer] Neuron Specific EnolaseEIA. Results obtained with different assa y method or kits cannotbe used interchangeably.Test develop ed and characteristics determined by [facility]. See Compli ance Statement D: Bromium/CSPerformed by [facility],[address] [place] [address] xyu.Bromium, Marcellus Harper MD, Lab. Dire ctor Performed By: #### CHROMA ## ##[facility] [place], [place] [phone]- [phone]#### NSE ####[facility] [id number] [facility] [phone] magnesium on 2018-02 Magnesium [Mass/Vol] 1.5 1.7-2.3 mg/dL Low 9 [facility] (95609) ld on 2019-01-11 LD 195 135-225 U/L Normal 01-11-2019 [facility] (08009) comp metabolic panel on 2019-01-11 Albumin [Mass/Vol] 3.9 3.9-4.9 g/dL Normal 01-11-2019 [facility] (62709) ALP [Catalytic 130 38-113 U/L High 01-11-2019 [facility] activity/Vol] [facility] and (04559) ALT [Catalytic 18 10-54 U/L Normal 01-11-2019 [facility] activity/Vol] [facility] and (97899) Anion gap [Moles/Vol] 11 9-18 mmol/L Normal 01-12-[address] [facility] (23222) AST [Catalytic 26 14-40 U/L Normal 01-11-2019 [facility] activity/Vol] [facility] and (31858) Bilirubin [Mass/Vol] 0.5 0.2-1.3 mg/dL Normal 9 [facility] (14384) Calcium [Mass/Vol] 9.7 8.5-10.2 mg/dL Normal 01-11-2019 [facility] (17490) Chloride [Moles/Vol] 104 97-105 mmol/L Normal 9 [facility] (03510) CO2 [Moles/Vol] 26 22-30 mmol/L Normal 01-11-2019 [facility] (16574) Creatinine [Mass/Vol] 2.11 0.73-1.22 mg/dL High 01-12-[address] [facility] (18349) eGFR- Amer. 38 Normal 01-11-2019 [facility] (70340) GFR/1.73 sq M predicted 31 . Normal 2018 [facility] among non-blacks MDRD [place] () (S/P/Bld) [Vol rate/Area] Comment: Result Comment: eGFR (Estima pratik GFR) Units of measure: mL/min/1.73 meters squaredeGFR is derived from the reexpressed MDRD Study equation using the following parameters: serum creatinine, age, gender and race. The creatinine assay has been calibrated to be traceable to IDMS.An eGFR <60 mL/min/1.73m2 for >3 months is consistent with chronic kidney disease. Refer to KDOQI guidelines for clinical inte rpretation.In patients with unstable renal function, e.g. those with ac cowlitz kidney injury, the eGFR may not accurately reflect actual GFR. Glucose [Mass/Vol] 217 74-99 mg/dL High 01-11-2019 [facility] (51966) Comment: Result Comment: The [place] Diabetes Association (ADA) provides guidance for cutoff values for fastin g glucose and random glucose. The ADA defines fasting as no caloric intake for at least 8 hours. Fasting plasma glucose results between 100 to 125 m g/dL indicate increased risk for diabetes (prediabetes).Fasting plasma glucose results greater than or equal to 126 mg/dL meet the criteria for diagnosis of diabetes. In the absence of unequivocal hyperglycemia, r esults should be confirmed by repeat testing. In a patient with classic sympt oms of hyperglycemia or hyperglycemic crisis, random plasma glucose result s greater than or equal to 200 mg/dL meet the criteria for diagnosis of di abetes.Reference: Standards of Medical Care in Diabetes 2016, [place] Diab etes Association. Diabetes Care. 2016.39(Suppl 1). Potassium [Moles/Vol] 4.4 3.7-5.1 mmol/L Normal 01-12-[address] [facility] (24505) Protein [Mass/Vol] 6.4 6.3-8.0 g/dL Normal 01-11-2019 [facility] (45451) Sodium [Moles/Vol] 141 136-144 mmol/L Normal 01-11-2019 [facility] (14972) Urea nitrogen [Mass/Vol] 14 9-24 mg/dL Normal 01-11 [facility] (59689) chromogranin a on 2 Chromogranin A See Comment <98 Normal 01-11-2019 [facility] (44969) Comment: Result Comment: The Chromogr anin A result is 218 ng/mL,the reference range of [facility] is 0 to 160 ng/mL. Disregard [facility] reference range. Interpret the result using the reference range provided by the performing laboratory.Test p erformed by: [facility], [place], [place].Testing performed by [employer] [facility] LM US kit. Results obtained with different methods or kits ca nnot be used interchangeably. See Compliance statement D: [employer]Avinger/cs. Performed By: #### CHROMA ## ##[facility] [place], [place] [phone]#### NSE ####[facility] [id number] [facility] [phone] progress on 2018-12 PROGRESS Normal 01-08-2019 [facility] (66658) PROGRESS Normal 01-08-2019 [facility] (19665) cnptoutreach on 10-28-21 CNPTOUTREACH Normal 01-08-2019 [facility] (27862) pt ed on 2019-01-07 PT ED HNO ID: [id number] Normal 01-07-2019 [facility] Author: Ivonne (Rn) HITESH Dillon ([id number]) Service: Radiology Author Type: Registered Nurse Type: Patient Education Filed: 01/07/2019 4:05 PM Note Text: AMBULATORY PATIENT EDUCATION TOPIC: Survival Skills: SURVIVAL SKILLS: Tunneled line place ment READINESS TO LEARN COGNITIVE ABILITY: Alert and oriented MOTIVATION TO LEARN: Interested FAMILY SUPPORT: None - Unavailable/disinterested INSTRUCTION PROVIDED TO: Patient PATIENT LEARNS BEST BY: Individual Instruction Written Instruction - Hand-outs FACTORS AFFECTING LEARNING: None PHYSICAL LIMITATIONS AFFECTING LEARNING: None LEARNING RESPONSE DIAGNOSIS: Dehydration METHOD OF INSTRUCTION: Individual instruction Written instruction - handouts PATIENT / FAMILY RESPONSE: Verbalizes understanding of: POST -PROCEDURE INSTRUCTIONS-Correct actions to take to reduce post procedur e complications PRE-PROCEDURE INSTRUCTIONS-Correct action to take to follow pre-procedure instructions FOLLOW-UP PLAN: Patient instructed to call with any further issues Follow-up with Primary Care SUPPLEMENTAL MATERIAL: Tunneled line card in chart REFERRAL (RECOMMENDATION): None Electronically Signed By: Ivonne Dillon RN In Department: [facility] RADIOLOGYSEE PATIENT EDUCATION SECTION OF THE EMR occult blood screen on 2019-01-07 Occult Blood Screen Negative Normal 01-07-2019 [facility] (03166) Comment: Performed By: #### CBCDIF, P T, PTT, CK, CMP, LIPA, MG1 #### [facility] [address] [facility] [phone] Occult Blood Source: Stool Normal 9 [facility] (55890) Comment: Performed By: #### CBCDIF, P T, PTT, CK, CMP, LIPA, MG1 #### [facility] [address] [facility] [phone] nutrition on 2018-02 NUTRITION HNO ID: [id number] Normal 01-07-2019 [facility] Author: Melody Kwan ([id number]) Service: Nutrition Therapy Author Type: Registered Dietitian Type: Nutrition Filed: 01/07/2019 12:16 PM Note Text: NUTRITION THERAPY PATIENT EDUCATION SERVICE DATE: 01/07/2019 SERVICE TIME: 11:45 am TOPIC: Survival Skills: Diet Diagnosis: ADULT: Ileostomy Diet READINESS TO LEARN Cognitive Ability: Alert and oriented Motivation to Learn: Interested Family Support: High - Very involved in pt care Instruction Provided to: Patient and family member Patient Learns Best by: Individual Instruction Written Instruction - Hand-outs Verbal Instruction Factors Affecting Learning: None Physical Limitations Affecting Learning: None LEARNING RESPONSE Patient / Family Response: Verbalizes understanding of Ileos kay diet, emphasis on foods that can increase/decrease ostomy output. Pt has previously received information and diet review demonstrates good understanding. Method of Instruction: Individual instruction Written instruction - handouts Verbal instruction Instructional Aids Used: NA Supplemental Material Provided to Patient: Ileostomy diet vines [facility]out from [facility] Follow-Up Plan: Follow-up with Primary Care Referral (Recommendation): MNT Billing: Initial Assess/15 min 1 unit SIGNATURE: Melody Kwan RD, JAY PATIENT NAME: Venkata andrade DATE: January 07, 2019 TIME: 12:13 PM PAGER: NUTRITION HNO ID: [id number] Normal 01-07-2019 [facility] Author: Melody Kwan ([id number]) Service: Nutrition Therapy Author Type: Registered Dietitian Type: Nutrition Filed: 01/07/2019 12:13 PM Note Text: NUTRITION THERAPY NOTE SERVICE DATE: 01/07/2019 SERVICE TIME: 11:45 am Anthropometrics: Height: 177.8 cm (5' 10) Current Weight: Weight: 96.2 kg (212 lb) Body mass index is 30.42 kg/m?. Loss of lean body mass/visual muscle wasting: no Admitting Diagnosis: Dehydration [E86.0] Present Diet Order: Heart Healthy 2 gm Na Is the patient having any pain that is interfering with oral /enteral intake? No Allergies: ALLERGIES Allergen Reactions - Lipitor [Atorvastat* Intolerance myalgias - Zocor [Simvastatin] Intolerance myalgias - Novacain [Other] Intolerance Headache when it wears off - Lescol [Fluvastatin* Intolerance myalgia Reason for Visit: Education needs: Patient education completed for: Ileostomy diet. Refer to patient education notes Pt is s/p ileostomy surgery on 11/23/18. Some loss of weight since surgery, difficult to assess due to fluid changes. He has a good appetite and oral intake. Currently with high ileostomy output. He is aware of foods that increase/decrease output. Progress notes and labs reviewed. Last 12 Encounter Wt Readings: Date: Wt: 01/04/2019 96.2 kg (212 lb) 12/23/2018 100.8 kg (222 lb 3.2 oz) 12/16/2018 99.9 kg (220 lb 4.8 oz) 12/15/2018 97.5 kg (215 lb) 12/15/2018 97.5 kg (215 lb) 12/07/2018 98 kg (216 lb) 11/17/2018 103.9 kg (229 lb) 11/12/2018 104 kg (229 lb 4.5 oz) 11/12/2018 104.1 kg (229 lb 8 oz) 10/28/2018 103.9 kg (228 lb 15.9 oz) 10/27/2018 103.4 kg (228 lb) 10/27/2018 103.4 kg (228 lb) Nursing Admission Assessment Malnutrition Score Tool: 0 Plan of Care: Recommendation Monitor oral intake Follow up within 5 days or as consulted Discharge Plan: Heart Healthy/ Ileostomy Diet MNT Billing Type: Initial Assess/15 min 1 unit SIGNATURE: Melody Kwan RD, LD PATIENT NAME: Venkata andrade DATE: January 07, 2019 TIME: 12:09 PM PAGER: nursing prog on 201 10-28-20 NURSING HNO ID: [id number] Normal 01-07-2019 [facility] Author: Karla (Rn) Vic, HITESH [facility] Service: Nursing (00 000) Author Type: Registered Nurse Type: Nursing Progress Note Filed: 01/07/2019 3:20 PM Note Text: Nursing Progress Note Patient Name: Venkata Leal Patient Location: [place] [id number] Daily Note: 1508- Patient c/o LH, dizziness and feeling weak. BS 61. Pat ient is NPO. 50% dextrose given per order. Dr Vernon grace. This note was completed by: Karla Ho RN NURSING HNO ID: [id number] Normal 01-07-2019 [facility] Author: Kvng (Rn) HITESH [facility] Service: Nursing (00 000) Author Type: Registered Nurse Type: Nursing Progress Note Filed: 01/07/2019 5:09 AM Note Text: Nursing Progress Note Patient Name: Venkata Leal Patient Location: [place] [id number] Daily Note: 2300 lying in semi fowlers position in bed awake. Denies nee ds. Ileostomy in RUQ intact. IVF running per APR. Bed in low position, veronika l light within reach, safety maintained. 0025 lying in semi fowlers position in bed awake. A,Ox3. Den ies feeling dehydrated at this time. Lungs diminished in all lobes on au scultation. HR regular, s1 and s2 noted. BSPx4 quadrants. Abdomen rounded, soft, non-tender. Ileostomy in RUQ intact, draining brown, liquid stool. IVF running per APR. Bed in low position, call light within reac h, safety maintained. This note was completed by: Kvng [place] RN magnesium on 2018-02 Magnesium [Mass/Vol] 1.9 1.7-2.3 mg/dL Normal 9 [facility] (24381) Comment: Performed By: #### CBCDIF, P T, PTT, CK, CMP, LIPA, MG1 #### [facility] [address] [place] [address] ir cvc tunnel w/o port insert on 2019-01-07 IR CVC TUNNEL * * *Final Report* * * Normal [facility] W/O PORT INSERT DATE OF EXAM: Jan 07 2019 4:39PM ([id number]) NEHEMIAH 7474 - IR CVC TUNNEL W/O PORT INSERT / 2998 PROCEDURE REASON: Hypovolemia * * * * Physician Interpretation * * * * EXAM TITLE: ULTRASOUND AND FLUOROSCOPIC-GUIDED PLACEMENT OF A TUNNELED PICC LINE CATHETER DATE: 01/07/2019 COMPARISON: None. CLINICAL INDICATION/HISTORY: The patient has poor vascular a ccess and requires chronic venous access for medication administration and hydration. FINDINGS: Informed consent was obtained from the patient. The patient placed in supine position. A timeout was performed. All elements of maximum barrier technique including surgical cap and mask, sterile gown, sterile gloves, a large sterile drape, h and hygiene and appropriate prep agent for cutaneous antisepsis were uti lized and maintained for this procedure. The right internal jugular ve in was identified with ultrasound. The right internal jugular vein appeared to be widely patent. Local anesthesia was affected with 2% Xylo hector. A small skin ju was performed. Utilizing real-time ultrasoun d guidance a 21-gauge micropuncture needle was introduced into the right internal jugular vein. Position the tip the needle within the right i nternal jugular vein was confirmed with ultrasound and an image save d in the PACS. A.018 guidewire is introduced and advanced into the angel perior vena cava. The micropuncture needle was withdrawn. A 4 Belarusian dil ator was then inserted over the guidewire. An appropriate site for or igin of the tunnel was identified. The necessary length of catheter was measured. Local anesthesia was affected portion of the tunnel with 2% Xylocaine. In addition local anesthesia was administered along the cour se of the tunnel. Small incision was then made in the right upper ante rior chest. Utilizing blunt dissection a tunnel was formed from this inc ision to the vascular access site. The catheter was then cut to length. T he catheter was attached to the tunneling device and the catheter was pu lled through the tunnel. The tunneling device was removed. A J-tipped radha dewire is then introduced through the 4 Belarusian dilator and into the angel perior vena cava. The 4 Belarusian dilator was withdrawn. A 6 Belarusian peel-aw ay sheath was then inserted over the guidewire. The introducer and radha dewire were removed. A 5 [place]arusian single-lumen powerline PICC line cathete r was then inserted through the peel-away sheath. Fluoroscopy confirmed from the position of the tip of the catheter at the junction of the s uperior vena cava and the right atrium. The peel-away sheath was withdraw n. Good blood return was obtained from the catheter. The catheter wa s flushed with normal saline and capped. The catheter was secured with 2 2-0 Prolene sutures. The vascular access site was closed with 4- 0 Monocryl suture. In addition surgical glue was applied at the vascula r access site. Both sites were then dressed in a sterile manner. The patient tolerated the procedure well. No immediate compl ications were noted. The patient received conscious sedation with int ravenous Versed and Fentanyl. . The patient was monitored throughout the procedure by the Radiology nurse. Intra-service time (monito ring for moderate sedation) (starts with administration of agent, end s when continuous cvbi-pa-ivsh time ends): 20 minutes Patient monit oring: I personally supervised and directed an independent trained ob cafe server who assisted in monitoring the patient?s level of consciousness and physiological status throughout the procedure. The patient w as returned to their room in stable condition . IMPRESSION: 1. Technically successful ultrasound and fluoroscopically gu ided placement of a 5 Belarusian single-lumen tunneled Powerline PICC line catheter view of the right internal jugular vein. The tip of the catheter is located at the junction of the superior vena cav a and the right atrium. The catheter is available for use now. Fluoroscopic Time: 0 minutes 2 seconds Radiation Exposure: 0.7 mGy Volume of Contrast: 0 cc of Visipaque 270 Number of Images: 1 Antibiotics: The patient was already receiving intravenous a ntibiotic therapy. No additional antibiotics were administered for thi s procedure. Chemist Instrumentation: PSCB Transcribe Date/Time: Jan 08 2019 1:36P Dictated by : MOIZ HOWARD MD This examination was interpreted and the report reviewed and electronically signed by: MOIZ HOWARD MD on Jan 08 2019 1:45PM EST [id number] history physical on 2019-01-07 HISTORY PHYSICAL HNO ID: [id number] Normal 11- [facility] Author: Moiz Howard ([id number]) Service: Interventional Radiology Author Type: Physician Type: HANDP Filed: 01/07/2019 4:10 PM Note Text: UPDATED HISTORY AND PHYSICAL EXAMINATION SERVICE DATE: 01/07/2019 SERVICE TIME: 4:10 PM PHYSICAL EXAM MUST BE COMPLETED ON ADMISSION The History and Physical (completed in the past 30 days) has been reviewed and the patient has been examined. The contents accurately r eflect the patient's condition with the following additions or revision s since the HANDP was completed. Examination indicates no changes. This HANDP can be found in the Electronic Medical Record [place] ed 01/04/19. SIGNATURE: Moiz Howard MD PATIENT NAME: Venkata Leal DATE: January 07, 2019 TIME: 4:10 PM PAGER: consult prog on 10-28-20 CONSULT HNO ID: [id number] Normal 01-07-2019 [place] PRO Author: [facility] Service: Gastroenterology ([id number]) Author Type: Physician Type: Consult Progress Note Filed: 01/07/2019 1:07 PM Note Text: GASTROENTEROLOGY CONSULT PROGRESS NOTE Patient Name: Venkata Leal SERVICE DATE: January 07, 2019 SERVICE TIME: 10:50 AM ASSESSMENT 1- High?ileostomy output? 2- CKD stage 3 / Dehydration? 3- Hx Crohn's disease s/p resection of neoterminal ileum and ileocolonic anastomosis with diverting loop ileostomy 11/23/18 on Pentasa 4- GOMEZ cirrhosis complicated by esophageal varices, anemia, thrombocytopenia, portal hypertensive gastropathy ?- MELD NA: 14 (01/06) 5- Hx carcinoid tumor s/p small bowel resection 6- Hx exocrine pancreatic insufficiency on Creon 7- CAD (Plavix 8- RIMA ? PLAN - Monitor ileostomy output - Continue octreotide 100 mcg IV q8h while in house - Continue Questran 4 g twice daily / Imodium 4 mg?QID?/ Lom otil 1 tab QID / Metamucil 1 packet BID - Continue Creon to 2 capsules with meals? - Continue?Mesalamine 1 gram QID - On?monthly octreotide injections (patient reports he recei ganesh about three weeks ago?with Dr. Mora) - Protonix 20 mg po daily - Continue Ferrous Sulfate 325 mg po daily (patient is s/p I V iron during last admission) - IVF per IM -?Heart healthy diet - Monitor daily CBC, CMP - Follow nephrology recommendations - Await wire transfer clerk recommendations - Plan is to obtain central access today receive IVF 3x/week per [facility] - Of note patient's established GI is Dr. Serafin Henley Patient seen and examined. Discussed with mid level provider . Harman findings confirmed. Plan as outlined. Ostomy output has decreased fol lowing commencement of IV octreotide. Continue current regimen. Michael Lock MD January 07, 2019 1:06 PM INTERVAL HPI: Reports after receiving IV octreotide last josh vincent stool from ileostomy started to form up. This am again had ~200 ml of liquid green stool. Total output in past 24 hours is 2350 ml. Mild diffuse abdominal pain. No nausea or vomiting. Tolerating diet well. Hoping for discharge today. PHYSICAL EXAM: Patient Vitals for the past 24 hrs: BP Temp Temp src Pulse Resp SpO2 01/07/19 0743 103/53 36.5 ?C (97.7 ?F) Oral 67 18 98 % 01/07/19 0319 107/57 36.7 ?C (98.1 ?F) Oral (!) 54 18 97 % 01/06/19 2226 111/61 36.7 ?C (98.1 ?F) Oral 60 17 98 % 01/06/19 2029 119/59 36.8 ?C (98.2 ?F) Oral 67 18 97 % 01/06/19 1610 110/55 36.7 ?C (98.1 ?F) Oral 62 18 99 % 01/06/19 1152 112/58 36.3 ?C (97.3 ?F) Oral (!) 58 18 100 % GENERAL: Alert AND oriented x 3. Cooperative. NAD EYES: No scleral icterus SKIN: Culp in color. No jaundice LUNGS: Clear to auscultation CARDIAC: RRR ABDOMEN:?Soft,?non distended. Non tender. No palpable masses or organomegaly. No guarding or rebound tenderness elicited. Fuad wel sounds normal. Ileostomy to right mid abdomen with light green liqu id stool in collection bag.? EXTREMITIES: No upper or lower extremity edema MEDICATIONS: Current Facility-Administered Medications Medication Dose Route Frequency - dicyclomine 10 mg cap(s) (BENTYL) 10 mg ORAL QID PRN - gabapentin 300 mg cap(s) (NEURONTIN) 300 mg ORAL AT BEDTIM E - diphenoxylate-atropine 2.5-0.025 mg 1 tablet (LOMOTIL) 1 t ablet ORAL AC and HS - loperamide 4 mg cap(s) (IMODIUM) 4 mg ORAL AC and HS - rosuvastatin 5 mg tab(s) (CRESTOR) 5 mg ORAL 2/WK - finasteride 5 mg tab(s) (PROSCAR) 5 mg ORAL DAILY - tamsulosin ER 0.4 mg cap(s) (FLOMAX) 0.4 mg ORAL AT BEDTIM E - metoprolol tartrate (short acting) 25 mg tab(s) (LOPRESSOR ) 25 mg ORAL BID - cholestyramine 4 g packet (QUESTRAN) 4 g ORAL BID w MEALS - insulin 75/25 lispro protamine/lispro units/mL 25 Units in jection (mixed intermediate and rapid acting) (HumaLOG 75/25) 25 Units SUBC UTANEOUS DAILY AT 6 PM - ferrous sulfate 325 mg tab(s) 325 mg ORAL DAILY WITH BREAK FAST - clopidogrel 75 mg tab(s) (PLAVIX) 75 mg ORAL DAILY - pantoprazole DR 20 mg tab(s) (PROTONIX) 20 mg ORAL BEFORE BREAKFAST DAILY - sertraline 100 mg tab(s) (ZOLOFT) 100 mg ORAL DAILY - DULoxetine 20 mg cap(s) (CYMBALTA) 20 mg ORAL DAILY - levothyroxine 137 mcg tab(s) (SYNTHROID) 137 mcg ORAL EDUIN Y - NaCl 0.9% iv infusion 75 mL/hr INTRAVENOUS CONTINUOUS - dextrose 40 % 15 g 15 g ORAL PRN Or - glucagon 1 mg injection (GLUCAGEN) 1 mg INTRAMUSCULAR PRN Or - dextrose 50 % 12.5 g injection 12.5 g INTRAVENOUS PRN - insulin 75/25 lispro protamine/lispro units/mL 35 Units in jection (mixed intermediate and rapid acting) (HumaLOG 75/25) 35 Units SUBC UTANEOUS DAILY WITH BREAKFAST - Mesalamine 1,000 mg cap(s) (PENTASA) 1,000 mg ORAL QID - psyllium 1 Packet (METAMUCIL) 1 Packet ORAL BID - oxyCODONE IR 5 mg tab(s) (ROXICODONE) 5 mg ORAL q 6 H PRN - lidocaine 4 % 1 Patch (SALONPAS) 1 Patch TRANSDERMAL DAILY And - lidocaine patch - REMOVE OTHER AT BEDTIME And - lidocaine - VERIFY PATCH OTHER q 8 H - ondansetron orally disintegrating 8 mg tab(s) (ZOFRAN ODT) 8 mg ORAL TID PRN - NaCl 0.9% 10 mL 10 mL INTRAVENOUS q 12 H - NaCl 0.9% 20 mL 20 mL INTRAVENOUS PRN - NaCl 0.9% 10 mL 10 mL INTRAVENOUS q 12 H - NaCl 0.9% 20 mL 20 mL INTRAVENOUS PRN - NaCl 0.9% 10 mL 10 mL INTRAVENOUS q 12 H - NaCl 0.9% 20 mL 20 mL INTRAVENOUS PRN - octreotide 100 mcg injection (SandoSTATIN) 100 mcg INTRAVE NOUS q 8 H - melatonin 9 mg tab(s) 9 mg ORAL HS PRN - NaCl 0.9% 10 mL 10 mL INTRAVENOUS q 12 H - NaCl 0.9% 20 mL 20 mL INTRAVENOUS PRN LABS: CBC, Coags, BMP, Mg, Phos Recent Labs 01/07/1932901/06/1943201/05/19330 WBC 2.88* 3.53* 3.52* HB 9.6* 9.6* 10.1* HCT 30.1* 30.0* 31.5* PLT 88* 96* 113* INR -- -- 1.1 NA 140 138 137 K 4.1 4.3 4.5 CHLOR 107* 104 105 CO2 24 23 23 BUN 12 18 21 CREAT 1.75* 1.97* 2.22* GLUC 71* 104* 106* CA 8.4* 8.8 9.2 MG 1.9 2.2 1.4* Liver Function, Amylase, AND Lipase Recent Labs 01/07/19 0330 01/06/1943201/05/19330 TPROT 5.4* 5.5* 5.9* ALB 3.3* 3.3* 3.5* ALT 28 32 39 AST 32 36 47* ALKPHOS 142* 144* 155* TBILI 0.3 0.4 0.5 MISC LABS 06/13/2017 Liver biopsy Liver, random right lobe, biopsy ?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 See comment. COMMENT The biopsy demonstrates distorted liver architecture with ci rrhosis as highlighted on the trichrome stain. The lobular parenchyma d emonstrates mild macrovesicular steatosis representing approximately 15- 20% of the liver surface. Rare ballooned hepatocytes with Beba hyali ne and scattered foci of lobular inflammation are noted. The portal tracts show minimal chronic inflammatory infiltrates composed mainly of small mature lymphocytes without interface activity. There is minimal jones e ductular proliferation. The interlobular bile ducts are intact. Granu samina are not seen. There is no evidence of cholestasis. PAS/D stain is ne gative for alpha-1 antitrypsin inclusions. The iron stain does not reve al increased iron deposition. The findings are consistent with end-stage liver disease (ci rrhosis) with associated features of steatohepatitis. This pattern of inju ry has been associated with obesity/metabolic syndrome, diabetes mellitu s, drug-induced injury (steroids), alcohol use, total parental nutrition, Wi lson's disease, among others. ?? ? Component Latest Ref Rng AND Units 11/12/2018 Hep B Core Ab, Total Negative Negative Hep C Antibody IA Negative Negative Hep B Surface Ag Negative Negative Hep B Surface Ab, Qual Negative Negative Iron 41 - 186 ug/dL 78 TIBC 232 - 386 ug/dL 390 (H) Transferrin Saturation 15 - 57 % 20 IgA 78 - 391 mg/dL 234 Transglutaminase Ab, IgA <20 Units 8 Interpretation (Celiac Screen) No serologic evidence of neri ac disease. No serologic evidence of celiac disease. V.zoster IgG, Qual Negative Positive (A) Varicella zoster, IgG Index Value 950.5 EBV VCA IgG, Qual Negative Positive (A) EBV VCA, IgG AI >8.0 CRP <0.9 mg/dL 0.8 Ferritin 30.3 - 565.7 ng/mL 116.0 Vitamin B12 232 - 1,245 pg/mL 771 Hep A Ab, Total Negative Negative Hep B Surf Ab Quant <8.00 mIU/mL <8.00 ? 11/23/18?surgical pathology Ileocolic anastomosis, resection: - Chronic active ileitis with ulceration. - Benign lymph nodes. ?? ? Component Latest Ref Rng AND Units 12/17/2018 Iron 41 - 186 ug/dL 30 (L) TIBC 232 - 386 ug/dL 372 Transferrin Saturation 15 - 57 % 8 (L) Folate >4.7 ng/mL 6.7 Ferritin 30.3 - 565.7 ng/mL 70.6 Vitamin B12 232 - 1,245 pg/mL >2,000 (H) 12/17/18 Stool studies: FL (-). ?Cx (-). C-diff (-). ?OB (-) . OANDP (-) Component Latest Ref Rng AND Units 12/17/2018 5 HIAA, Urine Random 0.0 - 10.0 mg/g Creat 1.6 ? ? Component Latest Ref Rng AND Units 12/19/2018 Total Weight, Feces g 1,389 Collection Period (FECFAT) hrs 24 hr 2 containers Fat %, Feces ? Not Applicable Fat Quant, Feces 2 - 7 g/24 h 49 (H) ? 12/21/18 AFP: <3 ? 01/05/19 Stool studies: C.diff (-), OB (-), OANDP (-), Cx (- ), fecal WBC's (+) ? RADIOLOGY? 09/10/18 CT A/P Liver: Normal unenhanced liver. IMPRESSION: Small bowel stricture involving 4 cm segment of small bowel in the right abdomen at the small bowel anastomosis site, new since CT 03/28/2018. No metastatic disease in the abdomen or pelvis. ? 09/30/18 NM Tumor octreotide scan IMPRESSION: No areas of abnormal indium-111 uptake are seen suggest a le seth with high metastatic receptor concentration. ? 11/24/2018 KUB IMPRESSION: Lines, tubes, and devices: NG/OG tube terminates in the prox imal stomach with side-port subdiaphragmatic. Bowel: No dilated bowel. Other: Right upper quadrant surgical clips. ?Midline surgica l clement. ? 12/16/18 CXR IMPRESSION: No acute radiographic abnormality. ? 12/20/18 KUB IMPRESSION: Nonobstructive bowel gas pattern. ?Ileostomy in the right fl ank. ?No free intra-abdominal air. ? MOST RECENT EGD?12/15/17 with Serafin Henley MD for hx eso phageal varices - Grade I esophageal varices. - Portal hypertensive gastropathy. - Normal examined duodenum. - No specimens collected.? ? MOST RECENT COLONOSCOPY?10/16/18 with Serafin Henely MD ([facility]) for history of Crohn's disease, stricture seen on CT The colon (entire examined portion) appeared normal. Despite multiple maneuvers including pressure, changes in body position and c hanging the pediatric scope for an adult scope, I was unable to enter th e ileum? ? SIGNATURE: Seble Chakraborty, FIRE BOAT ENGINEER DATE: January 07, 2019 TIME: 10:50 AM CONSULT HNO ID: [id number] Normal 01-07-2019 [place] PRO Author: [facility] Service: Nephrology ([id number]) Author Type: Physician Type: Consult Progress Note Filed: 01/07/2019 10:33 AM Note Text: Patient seen and examined. He feels better. Outpatient IVF h ave been set up at [facility]. Could not obtain tunneled ronny tral line yesterday (radiology had no availability). Vascular was cons ulted but preferred this was done via radiology. Radiology consult rep laced by me this AM. Blood pressure 103/53, pulse 67, temperature 36.5 ?C (97.7 ? F), temperature source Oral, resp. rate 18, height 177.8 cm (5' 10), weight 96.2 kg (212 lb), SpO2 98 %. Intake/Output Summary (Last 24 hours) at 01/07/2019 1031 Last data filed at 01/07/2019 0600 Gross per 24 hour Intake 2578 ml Output 4155 ml Net -1577 ml Gen: NAD Resp: CTA CVS: no rub Abd: soft, right ostomy Ext: no edema K 4.1, Na 140, Cr 1.75 Hb 9.6 Impression: 1. Resolved LOR on CKD 3 - now at baseline Cr 2. Recurrent volume depletion from high output ileostomy Plan: 1. Decrease IVF to 75cc/hr while in house 2. IR reconsulted for placement of tunneled catheter for IV access 3. If unable to obtain central access today, probably can be discharged with plans for outpatient tunneled central line placement an d can receive IVF 3x/week per [facility] via peripheral IV in the interim. D/W Dr. Junior and family comp metabolic panel on 2019-01-07 Albumin [Mass/Vol] 3.3 3.9-4.9 g/dL Low 01-07-2019 [facility] ([id number]) Comment: Performed By: #### CBCDIF, P T, PTT, CK, CMP, LIPA, MG1 #### [facility] [address] [place], [place] [phone] ALP [Catalytic activity/Vol] 142 38-113 U/L High 1 03-09-2018 [facility] ([id number]) Comment: Performed By: #### CBCDIF, P T, PTT, CK, CMP, LIPA, MG1 #### [facility] [address] [place] [address] ALT [Catalytic activity/Vol] 28 10-54 U/L Normal 1 03-09-2018 [facility] ([id number]) Comment: Performed By: #### CBCDIF, P T, PTT, CK, CMP, LIPA, MG1 #### [facility] [address] [place], [place] [address] Anion gap [Moles/Vol] 9 9-18 mmol/L Normal 01-08-20 [facility] ([id number]) Comment: Performed By: #### CBCDIF, P T, PTT, CK, CMP, LIPA, MG1 #### [facility] [address] [place] [address] AST [Catalytic activity/Vol] 32 14-40 U/L Normal 1 03-09-2018 [facility] ([id number]) Comment: Performed By: #### CBCDIF, P T, PTT, CK, CMP, LIPA, MG1 #### [facility] [address] [place] [address] Bilirubin [Mass/Vol] 0.3 0.2-1.3 mg/dL Normal [facility] ([id number]) Comment: Performed By: #### CBCDIF, P T, PTT, CK, CMP, LIPA, MG1 #### [facility] [address] [place] [address] Calcium [Mass/Vol] 8.4 8.5-10.2 mg/dL Low 01-07-2019 [facility] ([id number]) Comment: Performed By: #### CBCDIF, P T, PTT, CK, CMP, LIPA, MG1 #### [facility] [address] [facility] [phone] Chloride [Moles/Vol] 107 97-105 mmol/L High 9 [facility] ([id number]) Comment: Performed By: #### CBCDIF, P T, PTT, CK, CMP, LIPA, MG1 #### [facility] [address] [facility] [phone] CO2 [Moles/Vol] 24 22-30 mmol/L Normal 01-07-2019 [facility] ([id number]) Comment: Performed By: #### CBCDIF, P T, PTT, CK, CMP, LIPA, MG1 #### [facility] [address] [facility] [phone] Creatinine [Mass/Vol] 1.75 0.73-1.22 mg/dL High 01-08-20 19 [facility] ([id number]) Comment: Performed By: #### CBCDIF, P T, PTT, CK, CMP, LIPA, MG1 #### [facility] [address] [facility] [phone] eGFR- Amer. 47 Normal 01-07-2019 [facility] ([id number]) Comment: Performed By: #### CBCDIF, P T, PTT, CK, CMP, LIPA, MG1 #### [facility] [address] [facility] [phone] GFR/1.73 sq M predicted among 39 . Normal 01-07-2019 [facility] ([id number]) non-blacks MDRD (S/P/Bld) [Vol rate/Area] Comment: Result Comment: eGFR (Estima pratik GFR) Units of measure: mL/min/1.73 meters squared eGFR is derived from the ree xpressed MDRD Study equation using the following parameters: serum creatinine, age, gender and race. The creatinine assay has been calibrated to be traceable to IDMS. An eGFR <60 mL/min/1.73m2 fo r >3 months is consistent with chronic kidney disease. Refer to KDOQI guidelines for clinical interpretation. In patients with unstable re nal function, e.g. those with acute kidney injury, the eGFR may not accurately reflect actual GFR. Performed By: #### CBCDIF, P T, PTT, CK, CMP, LIPA, MG1 #### [facility] [address] [facility] [phone] Glucose [Mass/Vol] 71 74-99 mg/dL Low 01-07-2019 [facility] ([id number]) Comment: Result Comment: The [place] Diabetes Association (ADA) provides guidance for cutoff values for fasting glucose and random glucose. The ADA defines fasting as no caloric intake for at least 8 hours. Fas ting plasma glucose results between 100 to 125 mg/dL indicate increased risk for diabetes (prediabetes). Fasting plasma glucose resul ts greater than or equal to 126 mg/dL meet the criteria for diagnosis of diabetes. In the absence of unequivocal hyperglycemia, results should be confirmed by repeat testing. In a patient with classic s ymptoms of hyperglycemia or hyperglycemic crisis, random plasma glucose results greater than or equal to 200 mg/dL meet the criteria for diagnosis of diabetes. Reference: Standards of [facility] Care in Diabetes 2016, [place] [employer] Association. Diabetes Care. 2016.39(Suppl 1). Performed By: #### CBCDIF, P T, PTT, CK, CMP, LIPA, MG1 #### [facility] [address] [facility] [phone] Potassium [Moles/Vol] 4.1 3.7-5.1 mmol/L Normal 01-08-20 [facility] ([id number]) Comment: Performed By: #### CBCDIF, P T, PTT, CK, CMP, LIPA, MG1 #### [facility] [address] [facility] [phone] Protein [Mass/Vol] 5.4 6.3-8.0 g/dL Low 01-07-2019 [facility] ([id number]) Comment: Performed By: #### CBCDIF, P T, PTT, CK, CMP, LIPA, MG1 #### [facility] [address] [facility] [phone] Sodium [Moles/Vol] 140 136-144 mmol/L Normal 01-07-2019 [facility] (22157) Comment: Performed By: #### CBCDIF, P T, PTT, CK, CMP, LIPA, MG1 #### [facility] [address] [facility] [phone] Urea nitrogen [Mass/Vol] 12 9-24 mg/dL Normal 01-07 [facility] (94501) Comment: Performed By: #### CBCDIF, P T, PTT, CK, CMP, LIPA, MG1 #### [facility] [address] [facility] [phone] cnco on 2019-01-07 CNCO Letter Text Normal 01-07-2019 [facility] ([id number]) cbc on 2019-01-07 Erythrocyte distribution 15.6 11.5-15.0 % High 01-07 [facility] (24327) width (RBC) [Ratio] Comment: Performed By: #### CBCDIF, P T, PTT, CK, CMP, LIPA, MG1 #### [facility] [address] [place] [id number] Hematocrit (Bld) [Volume 30.1 39.0-51.0 % Low 01-07 [facility] (53679) fraction] Comment: Performed By: #### CBCDIF, P T, PTT, CK, CMP, LIPA, MG1 #### [facility] [address] [place] [address] Hemoglobin (Bld) [Mass/Vol] 9.6 13.0-17.0 g/dL Low [facility] (56831) Comment: Performed By: #### CBCDIF, P T, PTT, CK, CMP, LIPA, MG1 #### [facility] [address] [place] [address] MCH (RBC) [Entitic mass] 31.5 26.0-34.0 pG Normal 01-07 [facility] (99423) Comment: Performed By: #### CBCDIF, P T, PTT, CK, CMP, LIPA, MG1 #### [facility] [address] [place] [address] MCHC (RBC) [Mass/Vol] 31.9 30.5-36.0 g/dL Normal 01-08-20 19 [facility] (67332) Comment: Performed By: #### CBCDIF, P T, PTT, CK, CMP, LIPA, MG1 #### [facility] [address] [facility] [phone] MCV (RBC) [Entitic vol] 98.7 80.0-100.0 fL Normal 01-07 [facility] (24227) Comment: Performed By: #### CBCDIF, P T, PTT, CK, CMP, LIPA, MG1 #### [facility] [address] [facility] [phone] Platelet mean volume (Bld) 12.3 9.0-12.7 fL Normal [facility] (66676) [Entitic vol] Comment: Performed By: #### CBCDIF, P T, PTT, CK, CMP, LIPA, MG1 #### [facility] [address] [facility] [phone] Platelets (Bld) [#/Vol] 88 150-400 k/uL Low 2018 [facility] (76536) Comment: Result Comment: No clot dete cted. Performed By: #### CBCDIF, P T, PTT, CK, CMP, LIPA, MG1 #### [facility] [address] [place] [address] RBC (Bld) [#/Vol] 3.05 4.20-6.00 m/uL Low 01-07-2019 [facility] (46879) Comment: Performed By: #### CBCDIF, P T, PTT, CK, CMP, LIPA, MG1 #### [facility] [address] [place] [address] WBC (Bld) [#/Vol] 2.88 3.70-11.00 k/uL Low 01-07-2019 [facility] ([id number]) Comment: Performed By: #### CBCDIF, P T, PTT, CK, CMP, LIPA, MG1 #### [facility] [address] [facility] [phone] case managem on 201 10-28-20 CASE MANAGEM Normal 01-07-2019 [facility] ([id number]) progress on 2018-12 PROGRESS HNO ID: [id number] Normal 01-06-2019 [facility] Author: Harvinder Junior Jr. ([id number]) Service: Hospital Medicine Author Type: Physician Type: Progress Notes Filed: 01/06/2019 4:09 PM Note Text: SERVICE DATE: 01/06/2019 SERVICE TIME: 4:09 PM HOSPITAL MEDICINE PROGRESS NOTE NIGHT AND WEEKEND COVERAGE: Nights: Please contact pager [phone]. Hospital Medicine/Primary Attending: Harvinder Junior Jr., MD Subjective HPI: This is a 68 yo WM, with a PMH significant for Crohn's Disease (s/p resection of neoterminal ileum and ileocolonic anastomosis w ith diverting loop ileostomy 11/23/18), Pancreatic Insufficiency, Carcinoid Tumor, GOMEZ Cirrhosis complicated by esophageal varicies, CKD Stage III, Type 2 DM, CAD (s/p stent), Chronic Diastolic CHF and Hyperlipidemia, w ho presented to the ED on 01/04 with complaints of dehydration. The patie nt reported that over the previous few days he had been feeling dry an d experiencing lightheadedness, disorientation, and profound weakness which have accelerated quickly. He stated this was secondary to signifi cant output from his ileostomy that had been a chronic issue since it wa s placed on November 23 of this year. He was recently admitted from 11/19 0-12/22/18 after experiencing a Syncopal episode, was found to have LOR secondary to high ileostomy output requiring initial stay in ICU. He was supposed to start IV fluids on the day of admission, per [facility], but the needed supplies had not arrived and he was too dehydrated to start an IV, therefore he was told to go to ED. He had been emptying the ostomy bag every 1-2 hours. ? In the ED, Cr 2.36 (recent baseline 1.9 - 2.0), K 5.4, Mg 1. 3, WBC 4.7, Hgb 11.7. The patient was admitted to a medical bed and star pratik on IVFs. GI was consulted and stool studies were ordered. Metamucil w as added to Questran, Imodium and Lomotil.?High ileostomy output continu ed and Cr remained elevated at 1.97. Nephrology was consulted for teodoro urias for possible PICC line. NS 2 liters 3 x a week as OP was recomme nded. IR consulted for central IV access. Interval Events: Patient still feels wiped-out, but overall improved. Still has copious ileostomy output Objective BP 112/58 Pulse 58 Temp (Src) 97.3 (Oral) Resp 18 Ht 5' 10 (1.78m) Wt 212 lb (96.2kg) SpO2 100% BMI 30.42 kg/(m2) . O2 Therapy: Room Air Physical Exam Performed: GENERAL: well appearing, in no acute distress EYES: PERRLA, EOMI, Conjunctiva clear MOUTH and THROAT: membranes moist; no lesions NECK: supple, no lymphadenopathy or masses HEART: regular rate and rhythm, S1 and S2, no murmur LUNGS: clear to auscultation; no rales or wheezes ABDOMEN: Soft, nontender, bowel sounds normal, no masses; il eostomy shows thin green discharge EXTREMITY: no edema; no erythema NEURO: Alert and Oriented x3; Nonfocal PSYCH: Appropriate mood; Cooperative Lines, Drains, and Airways Line Peripheral 01/05/19 Assessment Short Right Hand 22 Gauge 1 d ay Reviewed lines, drains, AND airways. Need to be continued . Medications: Reviewed Diagnostic tests reviewed: Most recent labs Most recent imaging Recent Labs 01/06/19 0433 01/05/19 0331 01/04/19 1831 12/29/18 0828 12/21/18 0512 WBC 3.53* 3.52* 4.73 6.61 < > 3.57* RBC 3.07* 3.20* 3.67* 4.07* < > 2.96* HB 9.6* 10.1* 11.7* 12.6* < > 9.2* HCT 30.0* 31.5* 35.8* 39.9 < > 28.8* PLT 96* 113* 141* 160 < > 94* MCV 97.7 98.4 97.5 98.0 < > 97.3 MCH 31.3 31.6 31.9 31.0 < > 31.1 MPV 12.9* 12.3 12.5 12.6 < > 12.8* ABSNEUT -- -- 3.32 4.73 -- 2.57 NEUTP -- -- 70.2 71.5 -- 71.9 LYMPHP -- -- 14.4 13.9 -- 12.9 MONOP -- -- 10.8 10.0 -- 10.1 EODINP -- -- 3.8 3.8 -- 4.5 < > = values in this interval not displayed. Recent Labs 01/06/19 0433 01/05/19 0331 01/04/19 1931 01/04/19 1831 GLUC 104* 106* -- 245* NA 138 137 -- 137 K 4.3 4.5 -- 5.4* CHLOR 104 105 -- 99 CO2 23 23 -- 24 CREAT 1.97* 2.22* -- 2.36* BUN 18 21 -- 23 ANION 11 9 -- 14 CA 8.8 9.2 -- 10.2 TPROT 5.5* 5.9* 7.0 -- ALB 3.3* 3.5* 4.1 -- TBILI 0.4 0.5 0.5 -- ALKPHOS 144* 155* 179* -- AST 36 47* 62* -- ALT 32 39 48 -- Most recent labs Assessment AND Plan Active Hospital Problems as of 01/06/2019 Noted - Resolved Hospital * (Principal) Dehydration 01/05/2019 - Present Current Assessment AND Plan Assessment: Recurrent problem due to high output from ileostomy despite treatment Admitted for similar problem 12/16 - 12/22/18 but not as millie re this time Cr 2.36 - 2.22 - 1.97 (recent baseline 1.9) PLAN: Continue NS 100 cc/hr Follow BMP Plan for outpatient IVFs: 2L NS 3x a week LOR (acute kidney injury) ([facility]) 01/05/2019 - Present Current Assessment AND Plan Assessment: Cr 2.36 - 2.22 - 1.97 (1.9 - 2.0) PLAN: Continue IVFs Monitor Cr CKD (chronic kidney disease) stage 3, GFR 30-59 ml/min ([facility]) 01/04/2019 - Present Current Assessment AND Plan Assessment: Baseline Cr 1.9 - 2.0 Cr 2.22 - 1.97 PLAN: Monitor as above High output ileostomy ([facility]) 12/17/2018 - Present Current Assessment AND Plan Assessment: Plan to start IVFs at home but was unable to get arranged qu ickly enough Now on IVFs On Questran, Lomotil and Imodium at home Stool occult: neg Stool lactoferrin: neg C Diff PCR: neg Enteric Path: pnd Crypto/Giardia: pnd GI following Nephro consulted for possible PICC PLAN: Metamucil added Stool studies negative Nephrology recommends central line Carcinoid tumor 12/27/2010 - Present Current Assessment AND Plan Assessment/PLAN: S/p bowel resection ~2010 Monthly Octreotide injections Exocrine pancreatic insufficiency Unknown - Present Current Assessment AND Plan Assessment/PLAN: GI increased dose of Creon Crohn's disease of small intestine with intestinal obstructi on ([facility]) 04/02/2017 - Present Current Assessment AND Plan Assessment: Hx Crohn's Disease s/p resection of neoterminal ileum and il eocolonic anastomosis with diverting loop ileostomy 11/23/18 On Pentasa as OP PLAN: On Mesalamine while inpatient Follow-up on GI recommendations Hyperkalemia 12/17/2018 - Present Current Assessment AND Plan Assessment: K 4.5 - 4.3 PLAN: Continue IV NS Monitor Hypomagnesemia 01/05/2019 - Present Current Assessment AND Plan Assessment: Mg 1.3 - 1.4 - 2.2 PLAN: Follow Mg level 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, with long-term current use of insulin ([facility]) 12/12/2015 - Present Current Assessment AND Plan Assessment: HbA1c 5.8 on 12/29/18 On Novolog 70/30: 35units with breakfast and 25units with di nner PLAN: Home dose of Novolog ordered Follow Accuchecks TIDAC/HS CAD (coronary artery disease) Unknown - Present Current Assessment AND Plan Assessment/PLAN: History of stent Asymptomatic Chronic diastolic heart failure ([facility]) 05/03/2016 - Present Current Assessment AND Plan Assessment/PLAN: Euvolemic, no signs of fluid overload Esophageal varices in cirrhosis ([facility]) 12/09/2017 - Present Current Assessment AND Plan Assessment/PLAN: History of GOMEZ cirrhosis complicated by esophageal varices, anemia, thrombocytopenia, portal hypertensive gastropathy - MELD 14 Stable Continue current management Medication and Non-Pharmacologic VTE Prophylaxis/Anticoagula nts Anticoagulant AND Antiplatelet Medications (From admission, onward) Start Dose Route Frequency Ordered Stop 01/04/192199 clopidogrel 75 mg tab(s) (PLAVIX) 75 mg ORAL DAILY 01/04/192129 -- 01/04/192144 pneumatic compression stockings (nj,oh) 01/04/192144 activity - mobilize patient (fl,oh) VTE Prophylaxis: VTE prophylaxis appropriate Plan of care discussed with: Patient, Family/Significant Oth er: , RN and Consultants: Nephrology SIGNATURE: Harvinder Junior Jr., MD PATIENT NAME: Venkata Leal DATE: January 06, 2019 TIME: 4:09 PM PAGER/CONTACT #: [phone] nursing prog 10-29-19 NURSING PROG HNO ID: [id number] Normal 01-07-20 [facility] Author: Ivonne SalinasRnSowmya Dillon RN ([id number]) Service: PICC Team Author Type: Registered Nurse Type: Nursing Progress Note Filed: 01/06/2019 9:04 AM Note Text: PICC/VASCULAR ACCESS PROGRESS NOTE SERVICE DATE: 01/06/2019 SERVICE TIME: 0900 Pt ordered PICC however pt Has CKD3 and has been seen by nep hrology in the past. Spoke to HITESH Gurrola to inform her of this she will put ca ll out to Dr Junior. Cont to follow. SIGNATURE: Ivonne Dillon RN PATIENT NAME: Venkata Leal DATE: January 06, 2019 TIME: 9:02 AM PAGER/CONTACT #: [phone] magnesium on 2018-02 Magnesium [Mass/Vol] 2.2 1.7-2.3 mg/dL Normal [facility] ([id number]) Comment: Performed By: #### CBCDIF, P T, PTT, CK, CMP, LIPA, MG1 #### [facility] [address] [facility] [phone] consult on CONSULT HNO ID: [id number] Normal 01-06-2019 [facility] Author: Kalia Lamas ([id number]) Service: Nephrology Author Type: Physician Type: Consults Filed: 01/06/2019 10:41 AM Note Text: CONSULT: NEPHROLOGY SERVICE PATIENT NAME: Venkata Leal DATE of SERVICE: 01/06/19 TIME of SERVICE: 10:22 AM REASON FOR CONSULT: LOR, need for PICC REQUESTING PHYSICIAN: Dr. Junior PRIMARY CARE PHYSICIAN: ANALISA GARVEY MD Mr. Leal is a 68 year old male who presents for recurrent v olume depletion from high output ostomy. He was recently admitted to hospital with LOR on CKD 3 in the setting of a relatively recent osto my. During that admission, we stopped his diuretic therapy and his Cr c gianni back down to baseline in the high 1 range with IVF. No dialysis was re quired. He was actually ordered IVF planned for 3x/week at home via a perip heral IV until his planned ostomy takedown in 3.5 weeks. Unfortunately, no IV site was able to be obtained and patient felt quite dehydrated and we ak. He presented to hospital with mild LOR - Cr 2.36 from discharge Cr of 1.85. Weight was 3kg below discharge weight. He has noticed that h is ostomy output increases when he drinks too much fluid. Currently fe els a bit better. No nausea or vomiting. Still with high output ostomy that GI is managing. Currently feels better. No chest pain. Other ROS a s noted above and otherwise negative. He has a history of possible Crohn's disease on chronic sali cylate therapy. 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 Recently, it was noted he was developing a stricture in this region so he underwent planne d resection with diverting ileostomy formation last month. Since that ti me, has had increased ostomy output and weakness. His outpatient diureti cs including furosemide and spironolactone were discontinued last visit. He does have a history of biopsy proven cirrhosis possibly from fatty liver disease. He denies any NSAID use. No recent IV contrast. He receives mon thly octreotide for his carcinoid which apparently has not recurr ed. ? In regards to renal history, he has been told he has stage 3 CKD. He has a bland UA. Baseline Cr in the high 1 range most recently and it appears this has been somewhat progressive. He has issues with LOR i n the past. He is not followed by nephrology but is planning on seeing me i n office in the future. Risk factors for LOR include volume depletion fr om GI loss and use of diuretics presumably for cirrhosis and diastolic dysf unction. Risk factors for CKD include longstanding salicylate therapy and Crohns disease which can be associated with tubulointerstitial disease. PAST MEDICAL HISTORY: PAST MEDICAL HISTORY Diagnosis Date - Acute gastritis without mention of hemorrhage 10/24/2006 - Acute renal failure superimposed on stage 3 chronic kidney disease (HCC) - Anal fissure 05/17/2013 - Antiplatelet or antithrombotic long-term use 11/23/2018 - Arteriosclerosis, mesenteric artery (HCC) 09/24/2016 - Bladder cancer (HCC) Superficial bladder cancer, status post TURP AND mitomycin-C - BPH (benign prostatic hyperplasia) 10/03/2014 - Cancer (HCC) intestines and chest, but in remission as of 12-22-14 - Cancer of ilium (HCC) 12/27/2010 - Carcinoid syndrome (HCC) 04/24/2017 - Carcinoid tumor s/p removal and octreotide therapy - 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 - Central sleep apnea - Chronic pain 10/19/2015 - CKD (chronic kidney disease) stage 3, GFR 30-59 ml/min ([facility]) bland UA, baseline Cr in high 1 range - Cognitive impairment 04/22/2014 MOCA (04/2014) - Colon stricture (HCC) 11/12/2018 - Coronary atherosclerosis of unspecified type of vessel, na tive or graft PCI - 1998 - Crohn's disease (HCC) 11/23/2018 - Depression 11/23/2018 - Diarrhea - Displacement of lumbar 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 thy - DUODENITIS - NO HEMORRHAGE 10/24/2006 - Enthesopathy of hip region 06/17/2008 - Esophageal reflux - ESOPHAGITIS REFLUX 10/24/2006 - Essential hypertension - Family history of ischemic heart disease 04/16/2016 - GASTRITIS ANTRAL( W/O Hemorrhage) 10/24/2006 - GERD (gastroesophageal reflux disease) GERD - History of bladder cancer 11/23/2018 - Hydrocele sac 10/17/2014 - Hypothyroidism - IBS (irritable bowel syndrome) 03/06/2010 - Impingement syndrome of right shoulder 03/01/2015 - Incisional hernia 08/31/2012 - Incomplete tear of right rotator cuff 08/01/2015 - Insomnia 11/24/2018 - Internal hemorrhoids without mention of complication - Intervertebral disc disorder with radiculopathy of lumbar region 05/28/2017 - Irritable bowel syndrome - Lipoma of other specified sites - Lumbago 06/17/2008 - Mesenteric mass - Mixed hyperlipidemia 01/31/2005 - GOMEZ (nonalcoholic steatohepatitis) cirrhosis on liver biopsy - Neuroendocrine malignancy (HCC) 10/17/2014 - Obesity (BMI 30-39.9) 04/16/2016 - Obesity, Class I, BMI 30-34.9 11/24/2018 - Obesity, Class I, BMI 30-34.9 12/17/2018 - ALEXIS (obstructive sleep apnea) DME [facility] BiPAP - Oxygen order for 02 bleed in DME is Jayne reinoso - ALEXIS treated with BiPAP 06/07/2014 - Other and unspecified hyperlipidemia - PAD (peripheral artery disease) ([facility]) - Pancreatic insufficiency - Peripheral vascular disease, unspecified ([facility]) 01/31/2005 - Physical deconditioning 03/30/2018 - Post-op pain 11/23/2018 - Radiculopathy, lumbar region 10/28/2005 - S/P coronary artery stent placement 04/16/2016 - S/P primary angioplasty with coronary stent PCI - 1998 - Sciatica 11/08/2005 - 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[facility]) 12/27/2010 - 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 ([facility]) 07/19/2011 - 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 - Spermatocele 10/17/2014 - Spinal stenosis 10/28/2005 - Stroke ([facility]) 2009 TIA-questionable diagnosis - Testalgia 10/03/2014 - TIA (transient ischemic attack) 03/06/2010 - Tinnitus, right 03/06/2010 - Type 2 diabetes mellitus with complication ([facility]) 6 - Unspecified essential hypertension - Urinary hesitancy 04/22/2014 - Vitamin B12 deficiency - Vitamin D deficiency - Weakness of shoulder 11/01/2015 PAST SURGICAL HISTORY: PAST SURGICAL HISTORY Procedure Laterality Date - APPENDECTOMY 1970 - ARTHROS SHLDR DX W/WO SYNV BX Right 09/06/15 Right shoulder diagnostic arthroscopy - BALLN ANGIOPLASTY PERC,FEM-POP 1997 - BALLN ANGIOPLASTY PERC,FEM-POP 09/24/06 - CATHETER ART SYS-1ST ORD, ABDOM, PELVIC, OR LOWER 1997 - CATHETER ART SYS-1ST ORD, ABDOM, PELVIC, OR LOWER 1997 with stent - CATHETER ART SYS-1ST ORD, ABDOM, PELVIC, OR LOWER 09/24/06 - COLONOSCOP W/ OR W/O BRSH SPEC 05/30/2004 Colonoscopy - COLONOSCOP W/ OR W/O BRSH SPEC 05/18/14 Colonoscopy - EGD W/O BRSH SPECIMEN W/BX 10/24/06 Esophagiti,gastritis,duodenitis - EGD W/O OR W/BRUSH/WASH 10/26/1998 EGD - HEART SURGERY HX Stent 1995 - KNEE SCOPE,DIAGNOSTIC Right 2003 Arthroscopy, knee - LAP INC HERNIA REPAIR 09-29-12 - LAPAROSCOPIC CHOLEYCYSTECTOMY Cholecystectomy, lap - PAST SURGICAL HISTORY OF 2006 stent placement Both legs - PAST SURGICAL HISTORY OF 12-08-10 small bowel resection [facility] main - cancerious - PAST SURGICAL HISTORY OF 06/19/2015 Left eye cataract surgery - PERCATAN, EXTREMITY ARTERY 09/24/06 - REMOVAL OF TONSILS,<12 Y/O Tonsillectomy - REPAIR COMPL ROTATOR CUFF AVULSN,CHR Right 09/06/15 Subacromial decompression, rotator cuff repair, and labral d ebridement - REPAIR ING HERNIA,5+Y/O,REDUCIBL Hernia repair, inguinal lt FAMILY HISTORY: FAMILY HISTORY Problem Relation Age of Onset - Diabetes Mother - other (Uterine cancer) Mother - Heart Father [place] - Hypertension Father - Heart Sister 60age - Stroke Sister - Diabetes Sister 65age - other (fibromyalgia) Sister x 4 , 2 sisters with kidney disease - Diabetes Sister oral meds SOCIAL HISTORY: Social History Tobacco Use - Smoking status: Former Smoker Packs/day: 1.00 Years: 35.00 Pack years: 35.00 Types: Cigarettes Start date: 02/17/1971 Last attempt to quit: 02/17/2006 Years since quittin.8 - Smokeless tobacco: Never Used Substance Use Topics - Alcohol use: No Alcohol/week: 1.7 standard drinks Frequency: Never Drinks per session: Patient refused Binge frequency: Never - Drug use: No MEDICATIONS: Prior to Admission Medications: metoprolol tartrate, short acting, (LOPRESSOR) 25 mg tablet, Take 1 tablet by mouth twice daily., Disp: 60 tablet, Rfl: 1, 01/03/2019 a t 2099 tamsulosin ER (FLOMAX) 0.4 mg cap, Take 1 capsule by mouth d aily at bedtime., Disp: , Rfl: , 01/03/2019 at 2100 famotidine (PEPCID) 20 mg tablet, TAKE 1 TABLET BY MOUTH TWI CE DAILY, Disp: 60 tablet, Rfl: 2, 01/03/2019 at 2100 gabapentin (NEURONTIN) 300 mg capsule, Take 1 capsule by sheryl th daily at bedtime for 180 days., Disp: 90 capsule, Rfl: 1, 01/03/2019 at 2100 melatonin 10 mg subl, Dissolve 1 tablet under the tongue at bedtime as needed. , Disp: , Rfl: , 01/03/2019 at 2100 0.9 % sodium chloride (NACL 0.9%) solution, Infuse 1L NS ove r 3 hours, Disp: 1000 mL, Rfl: 13 blood sugar diagnostic (ONETOUCH VERIO) test strip, Test blo od sugar(s) 3 times daily and as needed for symptoms of high or low sugars . Dx: Type 2 DM - Uncontrolled E11.65 Insulin: Yes, Disp: 100 Strip, Rfl: 11 perflutren lipid microspheres (DEFINITY) 1.1 mg/mL injection (to be provided with echo procedure), Inject 1.3 mL intravenously a s directed. Administration Instructions: If no IV access, insert saline lock prior to administering contrast. Discontinue saline lock post exam. I f patient has central line or IVAD, may access for administration accordin g to line specific nursing protocol. Once exam is complete, flush line and de-access per line specific nursing protocol. Diluted IV Bolus: Dilute 1.3 ml of Definity with 8.7 ml of preservative-free saline., Disp: 1.3 mL, Rfl: 0 cholecalciferol, Vitamin D3, (VITAMIN D3) 50,000 unit cap ca psule, Take 1 capsule by mouth two times a week., Disp: 24 capsule, Rfl: 2 loperamide (IMODIUM) 2 mg cap(s), Take 2 capsules by mouth b efore meals and at bedtime., Disp: 720 capsule, Rfl: 0 diphenoxylate-atropine (LOMOTIL) 2.5-0.025 mg per tablet, Ta ke 1 tablet by mouth before meals and at bedtime for 30 days., Disp: 120 ta blet, Rfl: 0 cholestyramine (QUESTRAN) 4 gram packet, Take 1 Packet by mo [facility] twice daily with meals., Disp: 60 Packet, Rfl: 1, Taking dicyclomine (BENTYL) 10 mg capsule, Take 1 capsule by mouth four times daily as needed (abd cramping)., Disp: , Rfl: , Taking oxyCODONE IR (ROXICODONE) 5 mg immediate release tablet, Jose e 1 tablet by mouth every 6 hours as needed for Pain for up to 7 days., Di sp: , Rfl: 0, Taking hbfjlb-mfrgloee-eoctjmr (CREON 24) 24,000-76,000 -120,000 un it cpDR, Take 1 capsule by mouth twice daily with meals., Disp: , Rfl: , T aking ferrous sulfate 325 mg (65 mg iron) EC tablet, Take 1 tablet by mouth daily with breakfast., Disp: 30 tablet, Rfl: 1, Taking COMPOUNDED PRESCRIPTION, Please dispense a rollator with a s eat., Disp: 1 Each, Rfl: 0, Taking acetaminophen (TYLENOL) 325 mg tablet, Take 2 tablets by sheryl th every 6 hours as needed for Pain., Disp: , Rfl: , Taking ondansetron (ZOFRAN) 8 mg tablet, Take 1 tablet by mouth josh ry 8 hours as needed., Disp: 20 tablet, Rfl: 2, Taking insulin aspart protamine-insulin aspart (NovoLOG 70-30) 100 unit/mL flexpen, INJECT 35 UNITS SUBCUTANEOUSLY BEFORE BREAKFAST AND 25 UNITS BEFORE EVENING MEAL, Disp: 20 Pen, Rfl: 1, Taking pantoprazole DR (PROTONIX) 20 mg tablet, Take 1 tablet by mo uth daily before breakfast. Take on empty stomach, 1/2 hr before meal. , Disp: 30 tablet, Rfl: 2, Taking sertraline (ZOLOFT) 100 mg tablet, Take 1 tablet by mouth on ce daily., Disp: 30 tablet, Rfl: 11, Taking nicotine polacrilex (NICORETTE) 2 mg gum, Take 1 Each by sheryl th every 2 hours as needed., Disp: , Rfl: , Taking levothyroxine (LEVOXYL) 137 mcg tablet, Take 1 tablet by sheryl th once daily. Take on empty stomach. For Thyroid., Disp: 90 tablet, Rfl: 3 , Taking flash glucose scanning reader (FREESTYLE JULIA 14 DAY READER ) [facility] [place], Use as directed E 11.65, Disp: 1 Each, Rfl: 0, Taking flash glucose sensor (FREESTYLE JULIA 14 DAY SENSOR) kit, US E DIRECTED E11.65, Disp: 2 Kit, Rfl: 11, Taking BIPAP, Change settings: Bilevel PAP 30/25 cmH2O with humidif ication and back up rate 10 with 2 L bled in HS., Disp: 1 Device, Rfl: 1 1, Taking lidocaine (LIDODERM) 5 %, Apply 1 Patch as directed every 12 hours. Remove old patch prior to placing new patch., Disp: 30 Patch, Rfl: 2, Taking Mesalamine (PENTASA) 500 mg CR capsule, Take 2 capsules by m outh four times daily., Disp: 720 capsule, Rfl: 3, Taking rosuvastatin (CRESTOR) 5 mg tablet, Take 1 tablet by mouth t wice a week., Disp: , Rfl: , Taking finasteride (PROSCAR) 5 mg tablet, Take 1 tablet by mouth on ce daily., Disp: 90 tablet, Rfl: 3, Taking DULoxetine (CYMBALTA) 20 mg capsule, Take 1 capsule by mouth once daily., Disp: 90 capsule, Rfl: 3, Taking clopidogrel (PLAVIX) 75 mg tablet, Take 1 tablet by mouth on ce daily., Disp: 90 tablet, Rfl: 3, Taking Wheel Chair diana, Wheelchair with foot supports Dx: spinal s tenosis, displacement of lumbar intervertebral disc, Disp: 1 Device, Rfl: 0, Taking OCTREOTIDE ACETATE (SANDOSTATIN INJECTION), by INJECTION(UNS PECIFIED PARENTERAL ROUTES) route once every month., Disp: , Rfl: , T aking CYANOCOBALAMIN, VITAMIN B-12, (B-12 COMPLIANCE INJECTION), b y INJECTION(UNSPECIFIED PARENTERAL ROUTES) route once every mo nth., Disp: , Rfl: , Taking Insulin Mackay, Disposable, (TIESHA PEN NEEDLE) 32 gauge x 5/ 32 ndle, Use one needle for each dose. 2/day., Disp: 100 Each, Rfl: 11, T aking COMPOUNDED PRESCRIPTION, Lumbar support brace Dx: M48.06, M5 4.31, M51.26, Disp: 1 Each, Rfl: 0, Taking Lancing Device misc, 1 Each twice daily. Dx: Type 2 DM - Unc ontrolled E11.65 Insulin: Yes, Disp: 100 Each, Rfl: 11, Taking Current Facility-Administered Medications Medication Dose Route Frequency - dicyclomine 10 mg cap(s) (BENTYL) 10 mg ORAL QID PRN - gabapentin 300 mg cap(s) (NEURONTIN) 300 mg ORAL AT BEDTIM E - diphenoxylate-atropine 2.5-0.025 mg 1 tablet (LOMOTIL) 1 t ablet ORAL AC and HS - loperamide 4 mg cap(s) (IMODIUM) 4 mg ORAL AC and HS - rosuvastatin 5 mg tab(s) (CRESTOR) 5 mg ORAL 2/WK - finasteride 5 mg tab(s) (PROSCAR) 5 mg ORAL DAILY - tamsulosin ER 0.4 mg cap(s) (FLOMAX) 0.4 mg ORAL AT BEDTIM E - metoprolol tartrate (short acting) 25 mg tab(s) (LOPRESSOR ) 25 mg ORAL BID - cholestyramine 4 g packet (QUESTRAN) 4 g ORAL BID w MEALS - insulin 75/25 lispro protamine/lispro units/mL 25 Units in jection (mixed intermediate and rapid acting) (HumaLOG 75/25) 25 Units SUBC UTANEOUS DAILY AT 6 PM - ferrous sulfate 325 mg tab(s) 325 mg ORAL DAILY WITH BREAK FAST - clopidogrel 75 mg tab(s) (PLAVIX) 75 mg ORAL DAILY - pantoprazole DR 20 mg tab(s) (PROTONIX) 20 mg ORAL BEFORE BREAKFAST DAILY - sertraline 100 mg tab(s) (ZOLOFT) 100 mg ORAL DAILY - DULoxetine 20 mg cap(s) (CYMBALTA) 20 mg ORAL DAILY - levothyroxine 137 mcg tab(s) (SYNTHROID) 137 mcg ORAL EDUIN Y - NaCl 0.9% iv infusion 100 mL/hr INTRAVENOUS CONTINUOUS - dextrose 40 % 15 g 15 g ORAL PRN Or - glucagon 1 mg injection (GLUCAGEN) 1 mg INTRAMUSCULAR PRN Or - dextrose 50 % 12.5 g injection 12.5 g INTRAVENOUS PRN - insulin 75/25 lispro protamine/lispro units/mL 35 Units in jection (mixed intermediate and rapid acting) (HumaLOG 75/25) 35 Units SUBC UTANEOUS DAILY WITH BREAKFAST - Mesalamine 1,000 mg cap(s) (PENTASA) 1,000 mg ORAL QID - psyllium 1 Packet (METAMUCIL) 1 Packet ORAL BID - oxyCODONE IR 5 mg tab(s) (ROXICODONE) 5 mg ORAL q 6 H PRN - lidocaine 4 % 1 Patch (SALONPAS) 1 Patch TRANSDERMAL DAILY And - lidocaine patch - REMOVE OTHER AT BEDTIME And - lidocaine - VERIFY PATCH OTHER q 8 H - ondansetron orally disintegrating 8 mg tab(s) (ZOFRAN ODT) 8 mg ORAL TID PRN - NaCl 0.9% 10 mL 10 mL INTRAVENOUS q 12 H - NaCl 0.9% 20 mL 20 mL INTRAVENOUS PRN - NaCl 0.9% 10 mL 10 mL INTRAVENOUS q 12 H - NaCl 0.9% 20 mL 20 mL INTRAVENOUS PRN - NaCl 0.9% 10 mL 10 mL INTRAVENOUS q 12 H - NaCl 0.9% 20 mL 20 mL INTRAVENOUS PRN ALLERGIES: ALLERGIES Allergen Reactions - Lipitor [Atorvastat* Intolerance myalgias - Zocor [Simvastatin] Intolerance myalgias - Novacain [Other] Intolerance Headache when it wears off - Lescol [Fluvastatin* Intolerance myalgia COMPLETE REVIEW OF SYSTEMS: Please see HPI PHYSICAL EXAM: Patient Vitals for the past 24 hrs: BP Temp Temp src Pulse Resp SpO2 01/06/19 0815 ? ? ? 65 ? ? 01/06/19 0733 (!) 106/48 36.3 ?C (97.3 ?F) Oral (!) 58 18 99 % 01/06/19 0427 109/57 36.3 ?C (97.3 ?F) Oral 62 18 98 % 01/06/19 0006 101/53 36.6 ?C (97.9 ?F) Oral (!) 57 18 99 % 01/05/192049 115/64 ? 01/05/192041 (!) 96/45 36.3 ?C (97.3 ?F) Oral 61 18 97 % 01/05/19 1550 123/60 36.6 ?C (97.9 ?F) Oral 62 18 98 % 01/05/19 1114 113/56 ? ? (!) 57 ? ? 01/05/19 1113 97/52 36.6 ?C (97.9 ?F) Oral (!) 58 18 100 % Body mass index is 30.42 kg/m?. GENERAL: Alert SKIN: Negative HEAD/SINUSES: No significant findings EYES: EOMI EARS: Negative NOSE: Negative OROPHARYNX: Negative NECK: No jugulovenous distention LUNGS: Lungs clear to auscultation, Good diaphragmatic excur seth CARDIAC: no rub ABDOMEN: Normal abdominal exam, right sided ostomy with liqu id stool EXTREMITIES: Normal exam of the extremities NEURO: nothing focal DATA: Recent Labs 01/06/19 0433 01/05/19 0331 01/04/19 1931 01/04/19 1831 CREAT 1.97* 2.22* -- 2.36* BUN 18 -- NA 138 137 -- 137 K 4.3 4.5 -- 5.4* CHLOR 104 105 -- 99 MG 2.2 1.4* -- -- WBC 3.53* 3.52* -- 4.73 ALB 3.3* 3.5* 4.1 -- ALKPHOS 144* 155* 179* -- AST 36 47* 62* -- ALT 32 39 48 -- ASSESSMENT AND PLAN: 1. LOR on CKD 3 due to recurrent volume depletion from high output ostomy 2. 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 Crohns disease s/p recent ileostomy with resection of a a nastomotic stricture with plans for takedown next month Plan: 1. He is at some risk for progression to ESRD in the next te n years; would prefer no PICC line 2. I placed order for tunneled central line which will prese rve his upper arm veins in case AV access is needed in the future 3. Continue current IVF in house 4. I suggest IVF with 2L of NS every MWF till his ostomy jose edown - this can be done via [facility] or in the infusion center at [place] -should get CBC and CMP/Mg/Phos every week SIGNATURE: Kalia Lamas MD DATE: January 06, 2019 TIME: 10:22 AM January 06, 2019 01/06/2019 consult prog on 201 10-29-19 CONSULT PROG HNO ID: [id number] Normal 01-07-[address] [place] [address] Author: Kalia Lamas ([id number]) Service: Nephrology Author Type: Physician Type: Consult Progress Note Filed: 01/06/2019 12:03 PM Note Text: IR is unavailable today or tomorrow for tunneled central rios e placement. I will consult vascular surgery. Also, I contacted infusion ce nter in [place] and they should be able to accommodate Mr. Leal for IVF MWF. I left a written Rx at bedside with orders for 2L NS MWF and l abs every week. Thanks, Kalia Lamas CONSULT PROG HNO ID: [id number] Normal 01-07-[address] [place] [address] Author: Michael Lock ([id number]) Service: Gastroenterology Author Type: Physician Type: Consult Progress Note Filed: 01/06/2019 1:44 PM Note Text: GASTROENTEROLOGY CONSULT PROGRESS NOTE Patient Name: Venkata Leal SERVICE DATE: January 06, 2019 SERVICE TIME: 9:45 AM ASSESSMENT 1- High ileostomy output? 2- CKD stage 3 / Dehydration 3- Hx Crohn's disease s/p resection of neoterminal ileum and ileocolonic anastomosis with diverting loop ileostomy 11/23/18 on Pentasa 4- GOMEZ cirrhosis complicated by esophageal varices, anemia, thrombocytopenia, portal hypertensive gastropathy ?- MELD NA: 14 (01/06) 5- Hx carcinoid tumor s/p small bowel resection 6- Hx exocrine pancreatic insufficiency on Creon 7- CAD (Plavix 8- RIMA ? PLAN - Monitor ileostomy output - Follow up stool culture and fecal WBC's - Continue Questran 4 g twice daily / Imodium 4 mg QID / Lom otil 1 tab QID / Metamucil 1 packet BID - Continue Creon to 2 capsules with meals - Continue Mesalamine 1 gram QID - On monthly octreotide injections (patient reports he recei ganesh about three weeks ago with Dr. Mora) - Protonix 20 mg po daily - Continue Ferrous Sulfate 325 mg po daily (patient is s/p I V iron during last admission) - IVF per IM -?Heart healthy diet - Monitor daily CBC, CMP - Await nephrology consult - Discussed with Dr. Junior plan is to place midline for out patient IV infusions - Further recommendations pending patient's clinical course and above evaluation - Of note patient's established GI is Dr. Serafin Henley Patient seen and examined. Discussed with mid level provider . Harman findings confirmed. Plan as outlined. Continues to have large volume ileostomy output. Will try octreotide 100 mcg IV q8h. Continue other m eds. Will also consult correctional corporal for their recommendations. Michael Lock MD January 06, 2019 1:41 PM INTERVAL HPI: Has some mild incisional and stoma pain as his ileostomy bag just leaked and underwent a change and got cleaned up. No na usea or vomiting. Tolerating diet well. Had 2350 ml out of ileostomy overnight. PHYSICAL EXAM: Patient Vitals for the past 24 hrs: BP Temp Temp src Pulse Resp SpO2 01/06/19 0815 ? ? ? 65 ? ? 01/06/19 0733 (!) 106/48 36.3 ?C (97.3 ?F) Oral (!) 58 18 99 % 01/06/19 0427 109/57 36.3 ?C (97.3 ?F) Oral 62 18 98 % 01/06/19 0006 101/53 36.6 ?C (97.9 ?F) Oral (!) 57 18 99 % 01/05/19 2050 115/64 ? 01/05/192041 (!) 96/45 36.3 ?C (97.3 ?F) Oral 61 18 97 % 01/05/19 1550 123/60 36.6 ?C (97.9 ?F) Oral 62 18 98 % 01/05/19 1114 113/56 ? ? (!) 57 ? ? 01/05/19 1113 97/52 36.6 ?C (97.9 ?F) Oral (!) 58 18 100 % GENERAL: Alert AND oriented x 3. Cooperative. NAD EYES: No scleral icterus SKIN: Culp in color. No jaundice LUNGS: Clear to auscultation CARDIAC: RRR ABDOMEN: Soft, non distended. Non tender. No palpable masses or organomegaly. No guarding or rebound tenderness elicited. Fuad wel sounds normal. Ileostomy to right mid abdomen with light green liqu id stool in collection bag. EXTREMITIES: No upper or lower extremity edema ? MEDICATIONS: Current Facility-Administered Medications Medication Dose Route Frequency - dicyclomine 10 mg cap(s) (BENTYL) 10 mg ORAL QID PRN - gabapentin 300 mg cap(s) (NEURONTIN) 300 mg ORAL AT BEDTIM E - diphenoxylate-atropine 2.5-0.025 mg 1 tablet (LOMOTIL) 1 t ablet ORAL AC and HS - loperamide 4 mg cap(s) (IMODIUM) 4 mg ORAL AC and HS - rosuvastatin 5 mg tab(s) (CRESTOR) 5 mg ORAL 2/WK - finasteride 5 mg tab(s) (PROSCAR) 5 mg ORAL DAILY - tamsulosin ER 0.4 mg cap(s) (FLOMAX) 0.4 mg ORAL AT BEDTIM E - metoprolol tartrate (short acting) 25 mg tab(s) (LOPRESSOR ) 25 mg ORAL BID - cholestyramine 4 g packet (QUESTRAN) 4 g ORAL BID w MEALS - insulin 75/25 lispro protamine/lispro units/mL 25 Units in jection (mixed intermediate and rapid acting) (HumaLOG 75/25) 25 Units SUBC UTANEOUS DAILY AT 6 PM - ferrous sulfate 325 mg tab(s) 325 mg ORAL DAILY WITH BREAK FAST - clopidogrel 75 mg tab(s) (PLAVIX) 75 mg ORAL DAILY - pantoprazole DR 20 mg tab(s) (PROTONIX) 20 mg ORAL BEFORE BREAKFAST DAILY - sertraline 100 mg tab(s) (ZOLOFT) 100 mg ORAL DAILY - DULoxetine 20 mg cap(s) (CYMBALTA) 20 mg ORAL DAILY - levothyroxine 137 mcg tab(s) (SYNTHROID) 137 mcg ORAL EDUIN Y - NaCl 0.9% 3-5 mL 3-5 mL INTRAVENOUS q 12 H - NaCl 0.9% iv infusion 100 mL/hr INTRAVENOUS CONTINUOUS - dextrose 40 % 15 g 15 g ORAL PRN Or - glucagon 1 mg injection (GLUCAGEN) 1 mg INTRAMUSCULAR PRN Or - dextrose 50 % 12.5 g injection 12.5 g INTRAVENOUS PRN - insulin 75/25 lispro protamine/lispro units/mL 35 Units in jection (mixed intermediate and rapid acting) (HumaLOG 75/25) 35 Units SUBC UTANEOUS DAILY WITH BREAKFAST - Mesalamine 1,000 mg cap(s) (PENTASA) 1,000 mg ORAL QID - psyllium 1 Packet (METAMUCIL) 1 Packet ORAL BID - oxyCODONE IR 5 mg tab(s) (ROXICODONE) 5 mg ORAL q 6 H PRN - lidocaine 4 % 1 Patch (SALONPAS) 1 Patch TRANSDERMAL DAILY And - lidocaine patch - REMOVE OTHER AT BEDTIME And - lidocaine - VERIFY PATCH OTHER q 8 H - ondansetron orally disintegrating 8 mg tab(s) (ZOFRAN ODT) 8 mg ORAL TID PRN - NaCl 0.9% 10 mL 10 mL INTRAVENOUS q 12 H - NaCl 0.9% 20 mL 20 mL INTRAVENOUS PRN LABS: CBC, Coags, BMP, Mg, Phos Recent Labs 01/06/19 0433 01/05/19 0331 01/04/19 1831 WBC 3.53* 3.52* 4.73 HB 9.6* 10.1* 11.7* HCT 30.0* 31.5* 35.8* PLT 96* 113* 141* INR -- 1.1 -- NA 138 137 137 K 4.3 4.5 5.4* CHLOR 104 105 99 CO2 23 23 24 BUN 18 21 23 CREAT 1.97* 2.22* 2.36* GLUC 104* 106* 245* CA 8.8 9.2 10.2 MG 2.2 1.4* -- Liver Function, Amylase, AND Lipase Recent Labs 01/06/193 01/05/1933001/04/19 1931 TPROT 5.5* 5.9* 7.0 ALB 3.3* 3.5* 4.1 ALT 32 39 48 AST 36 47* 62* ALKPHOS 144* 155* 179* TBILI 0.4 0.5 0.5 MISC LABS 06/13/2017 Liver biopsy Liver, random right lobe, biopsy ?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 See comment. COMMENT The biopsy demonstrates distorted liver architecture with ci rrhosis as highlighted on the trichrome stain. The lobular parenchyma d emonstrates mild macrovesicular steatosis representing approximately 15- 20% of the liver surface. Rare ballooned hepatocytes with Beba hyali ne and scattered foci of lobular inflammation are noted. The portal tracts show minimal chronic inflammatory infiltrates composed mainly of small mature lymphocytes without interface activity. There is minimal jones e ductular proliferation. The interlobular bile ducts are intact. Granu samina are not seen. There is no evidence of cholestasis. PAS/D stain is ne gative for alpha-1 antitrypsin inclusions. The iron stain does not reve al increased iron deposition. The findings are consistent with end-stage liver disease (ci rrhosis) with associated features of steatohepatitis. This pattern of inju ry has been associated with obesity/metabolic syndrome, diabetes mellitu s, drug-induced injury (steroids), alcohol use, total parental nutrition, Wi lson's disease, among others. ?? ? Component Latest Ref Rng AND Units 11/12/2018 Hep B Core Ab, Total Negative Negative Hep C Antibody IA Negative Negative Hep B Surface Ag Negative Negative Hep B Surface Ab, Qual Negative Negative Iron 41 - 186 ug/dL 78 TIBC 232 - 386 ug/dL 390 (H) Transferrin Saturation 15 - 57 % 20 IgA 78 - 391 mg/dL 234 Transglutaminase Ab, IgA <20 Units 8 Interpretation (Celiac Screen) No serologic evidence of neri ac disease. No serologic evidence of celiac disease. V.zoster IgG, Qual Negative Positive (A) Varicella zoster, IgG Index Value 950.5 EBV VCA IgG, Qual Negative Positive (A) EBV VCA, IgG AI >8.0 CRP <0.9 mg/dL 0.8 Ferritin 30.3 - 565.7 ng/mL 116.0 Vitamin B12 232 - 1,245 pg/mL 771 Hep A Ab, Total Negative Negative Hep B Surf Ab Quant <8.00 mIU/mL <8.00 ? 11/23/18?surgical pathology Ileocolic anastomosis, resection: - Chronic active ileitis with ulceration. - Benign lymph nodes. ?? ? Component Latest Ref Rng AND Units 12/17/2018 Iron 41 - 186 ug/dL 30 (L) TIBC 232 - 386 ug/dL 372 Transferrin Saturation 15 - 57 % 8 (L) Folate >4.7 ng/mL 6.7 Ferritin 30.3 - 565.7 ng/mL 70.6 Vitamin B12 232 - 1,245 pg/mL >2,000 (H) 12/17/18 Stool studies: FL (-). ?Cx (-). C-diff (-). ?OB (-) . OANDP (-) Component Latest Ref Rng AND Units 12/17/2018 5 HIAA, Urine Random 0.0 - 10.0 mg/g Creat 1.6 ? ? Component Latest Ref Rng AND Units 12/19/2018 Total Weight, Feces g 1,389 Collection Period (FECFAT) hrs 24 hr 2 containers Fat %, Feces ? Not Applicable Fat Quant, Feces 2 - 7 g/24 h 49 (H) ? 12/21/18 AFP: <3 01/05/19 Stool studies: C.diff (-), OB (-), OANDP (-), Cx (p ending), fecal WBC's (pending) ? RADIOLOGY? 09/10/18 CT A/P Liver: Normal unenhanced liver. IMPRESSION: Small bowel stricture involving 4 cm segment of small bowel in the right abdomen at the small bowel anastomosis site, new since CT 03/28/2018. No metastatic disease in the abdomen or pelvis. ? 09/30/18 NM Tumor octreotide scan IMPRESSION: No areas of abnormal indium-111 uptake are seen suggest a le seth with high metastatic receptor concentration. ? 11/24/2018 KUB IMPRESSION: Lines, tubes, and devices: NG/OG tube terminates in the prox imal stomach with side-port subdiaphragmatic. Bowel: No dilated bowel. Other: Right upper quadrant surgical clips. ?Midline surgica l clement. ? 12/16/18 CXR IMPRESSION: No acute radiographic abnormality. ? 12/20/18 KUB IMPRESSION: Nonobstructive bowel gas pattern. ?Ileostomy in the right fl ank. ?No free intra-abdominal air. ? MOST RECENT EGD?12/15/17 with Serafin Henley MD for hx eso phageal varices - Grade I esophageal varices. - Portal hypertensive gastropathy. - Normal examined duodenum. - No specimens collected.? ? MOST RECENT COLONOSCOPY?10/16/18 with Serafin Henley MD ([facility]) for history of Crohn's disease, stricture seen on CT The colon (entire examined portion) appeared normal. Despite multiple maneuvers including pressure, changes in body position and c hanging the pediatric scope for an adult scope, I was unable to enter th e ileum? ? SIGNATURE: Seble Chakraborty, FIRE BOAT ENGINEER DATE: January 06, 2019 TIME: 9:45 AM comp metabolic panel on 2019-01-06 Albumin [Mass/Vol] 3.3 3.9-4.9 g/dL Low 01-06-2019 [facility] ([id number]) Comment: Performed By: #### CBCDIF, P T, PTT, CK, CMP, LIPA, MG1 #### [facility] [address] [place] [address] ALP [Catalytic activity/Vol] 144 38-113 U/L High 1 03-08-2018 [facility] ([id number]) Comment: Performed By: #### CBCDIF, P T, PTT, CK, CMP, LIPA, MG1 #### [facility] [address] [place] [address] ALT [Catalytic activity/Vol] 32 10-54 U/L Normal 1 03-08-2018 [facility] ([id number]) Comment: Performed By: #### CBCDIF, P T, PTT, CK, CMP, LIPA, MG1 #### [facility] [address] [place], [place] [address] Anion gap [Moles/Vol] 11 9-18 mmol/L Normal 01-07-20 19 [facility] ([id number]) Comment: Performed By: #### CBCDIF, P T, PTT, CK, CMP, LIPA, MG1 #### [facility] [address] [place] [address] AST [Catalytic activity/Vol] 36 14-40 U/L Normal 1 03-08-2018 [facility] ([id number]) Comment: Performed By: #### CBCDIF, P T, PTT, CK, CMP, LIPA, MG1 #### [facility] [address] [place] [address] Bilirubin [Mass/Vol] 0.4 0.2-1.3 mg/dL Normal 9 [facility] ([id number]) Comment: Performed By: #### CBCDIF, P T, PTT, CK, CMP, LIPA, MG1 #### [facility] [address] [place] [address] Calcium [Mass/Vol] 8.8 8.5-10.2 mg/dL Normal 01-06-2019 [facility] ([id number]) Comment: Performed By: #### CBCDIF, P T, PTT, CK, CMP, LIPA, MG1 #### [facility] [address] [place] [address] Chloride [Moles/Vol] 104 97-105 mmol/L Normal 9 [facility] ([id number]) Comment: Performed By: #### CBCDIF, P T, PTT, CK, CMP, LIPA, MG1 #### [facility] [address] [facility] [phone] CO2 [Moles/Vol] 23 22-30 mmol/L Normal 01-06-2019 [facility] ([id number]) Comment: Performed By: #### CBCDIF, P T, PTT, CK, CMP, LIPA, MG1 #### [facility] [address] [facility] [phone] Creatinine [Mass/Vol] 1.97 0.73-1.22 mg/dL High 01-07-20 19 [facility] (25060) Comment: Performed By: #### CBCDIF, P T, PTT, CK, CMP, LIPA, MG1 #### [facility] [address] [facility] [phone] eGFR- Amer. 41 Normal 01-06-2019 [facility] ([id number]) Comment: Performed By: #### CBCDIF, P T, PTT, CK, CMP, LIPA, MG1 #### [facility] [address] [facility] [phone] GFR/1.73 sq M predicted among 34 . Normal 01-06-2019 [facility] ([id number]) non-blacks MDRD (S/P/Bld) [Vol rate/Area] Comment: Result Comment: eGFR (Estima pratik GFR) Units of measure: mL/min/1.73 meters squared eGFR is derived from the ree xpressed MDRD Study equation using the following parameters: serum creatinine, age, gender and race. The creatinine assay has been calibrated to be traceable to IDMS. An eGFR <60 mL/min/1.73m2 fo r >3 months is consistent with chronic kidney disease. Refer to KDOQI guidelines for clinical interpretation. In patients with unstable re nal function, e.g. those with acute kidney injury, the eGFR may not accurately reflect actual GFR. Performed By: #### CBCDIF, P T, PTT, CK, CMP, LIPA, MG1 #### [facility] [address] [facility] [phone] Glucose [Mass/Vol] 104 74-99 mg/dL High 01-06-2019 [facility] (16890) Comment: Result Comment: The [place] [employer] (ADA) provides guidance for cutoff values for fasting glucose and random glucose. The ADA defines fasting as no caloric intake for at least 8 hours. Fas ting plasma glucose results between 100 to 125 mg/dL indicate increased risk for diabetes (prediabetes). Fasting plasma glucose resul ts greater than or equal to 126 mg/dL meet the criteria for diagnosis of diabetes. In the absence of unequivocal hyperglycemia, results should be confirmed by repeat testing. In a patient with classic s ymptoms of hyperglycemia or hyperglycemic crisis, random plasma glucose results greater than or equal to 200 mg/dL meet the criteria for diagnosis of diabetes. Reference: Standards of [facility] in Diabetes 2016, [place] [employer] Association. Diabetes Care. 2016.39(Suppl 1). Performed By: #### CBCDIF, P T, PTT, CK, CMP, LIPA, MG1 #### [facility] [address] [place] [address] Potassium [Moles/Vol] 4.3 3.7-5.1 mmol/L Normal 01-07-20 [facility] ([id number]) Comment: Performed By: #### CBCDIF, P T, PTT, CK, CMP, LIPA, MG1 #### [facility] [address] [place] [address] Protein [Mass/Vol] 5.5 6.3-8.0 g/dL Low 01-06-2019 [facility] ([id number]) Comment: Performed By: #### CBCDIF, P T, PTT, CK, CMP, LIPA, MG1 #### [facility] [address] [place] [address] Sodium [Moles/Vol] 138 136-144 mmol/L Normal 01-06-2019 [facility] (24815) Comment: Performed By: #### CBCDIF, P T, PTT, CK, CMP, LIPA, MG1 #### [facility] [address] [facility] [phone] Urea nitrogen [Mass/Vol] 18 9-24 mg/dL Normal 01-06 [facility] (48103) Comment: Performed By: #### CBCDIF, P T, PTT, CK, CMP, LIPA, MG1 #### [facility] [address] [facility] [phone] cbc on 2019-01-06 Erythrocyte distribution 15.2 11.5-15.0 % High 01-06 [facility] (32111) width (RBC) [Ratio] Comment: Performed By: #### CBCDIF, P T, PTT, CK, CMP, LIPA, MG1 #### [facility] [address] [place], [place] [address] Hematocrit (Bld) [Volume 30.0 39.0-51.0 % Low 01-06 [facility] (29923) fraction] Comment: Performed By: #### CBCDIF, P T, PTT, CK, CMP, LIPA, MG1 #### [facility] [address] [place], [place] [address] Hemoglobin (Bld) [Mass/Vol] 9.6 13.0-17.0 g/dL Low [facility] (73951) Comment: Performed By: #### CBCDIF, P T, PTT, CK, CMP, LIPA, MG1 #### [facility] [address] [place] [address] MCH (RBC) [Entitic mass] 31.3 26.0-34.0 pG Normal 01-06 [facility] (82474) Comment: Performed By: #### CBCDIF, P T, PTT, CK, CMP, LIPA, MG1 #### [facility] [address] [place], [place] [phone] MCHC (RBC) [Mass/Vol] 32.0 30.5-36.0 g/dL Normal 01-07-20 19 [facility] (40246) Comment: Performed By: #### CBCDIF, P T, PTT, CK, CMP, LIPA, MG1 #### [facility] [address] [place], [place] [address] MCV (RBC) [Entitic vol] 97.7 80.0-100.0 fL Normal 01-06 [facility] (14283) Comment: Performed By: #### CBCDIF, P T, PTT, CK, CMP, LIPA, MG1 #### [facility] [address] [place] [address] Platelet mean volume (Bld) 12.9 9.0-12.7 fL High [facility] ([id number]) [Entitic vol] Comment: Performed By: #### CBCDIF, P T, PTT, CK, CMP, LIPA, MG1 #### [facility] [address] [facility] [phone] Platelets (Bld) [#/Vol] 96 150-400 k/uL Low 2018 [facility] (65274) Comment: Result Comment: No clot dete cted. Performed By: #### CBCDIF, P T, PTT, CK, CMP, LIPA, MG1 #### [facility] [address] [facility] [phone] RBC (Bld) [#/Vol] 3.07 4.20-6.00 m/uL Low 01-06-2019 [facility] ([id number]) Comment: Performed By: #### CBCDIF, P T, PTT, CK, CMP, LIPA, MG1 #### [facility] [address] [place] [phone] WBC (Bld) [#/Vol] 3.53 3.70-11.00 k/uL [facility] 01-06-2019 [facility] ([id number]) Comment: Performed By: #### CBCDIF, P T, PTT, CK, CMP, LIPA, MG1 #### [facility] [address] [place], [place] [address] protime on PT Coag (PPP) [Time] 11.8 9.7-13.0 sec Normal [address] [place] [address] ([id number]) Comment: Performed By: #### CBCDIF, P T, PTT, CK, CMP, LIPA, MG1 #### [facility] [address] [place] [address] PT Coag (PPP) [Time] 1.1 0.9-1.3 s Normal [address] [place] [address] ([id number]) Comment: Result Comment: Vitamin K An tagonist (VKA) Therapeutic Range: INR 2 to 3 (Target INR of 2.5) Note: For patients treated w ith VKA drugs, such as warfarin, the [place] [employer] 2012 Guideline recommends a therapeutic INR range of 2 to 3 (target INR of 2.5). This recommendation includes high-risk patients with antiphospholipid syndrome with previous arterial or venous thromboembolism, current-generation mechanical or bioprosthetic aortic heart valve replacement. Note: Patients with heavy duty mechanic al aortic valve replacement and additional risk factors for thromboembolic events (atrial fibrillation, previous thromboembolism, LV dysfunction, hypercoagulable conditions) or an older generation mecha nical AVR (i.e., ball in-Cage) or any mechanical MVR should have a INR therapeutic range of 2.5 to 3.5 (target INR of 3). Sawyer GH, et al. Chest 2012 , 141:7S-47S Kathy RA, et al. [facility] 20 , 70: 252-289 Performed By: #### CBCDIF, P T, PTT, CK, CMP, LIPA, MG1 #### [facility] [address] [facility] [phone] progress on 2018-12 PROGRESS HNO ID: [id number] Normal 01-05-2019 [facility] Author: Harvinder Junior Jr. ([id number]) Service: Hospital Medicine Author Type: Physician Type: Progress Notes Filed: 01/05/2019 2:54 PM Note Text: SERVICE DATE: 01/05/2019 SERVICE TIME: 2:53 PM HOSPITAL MEDICINE PROGRESS NOTE NIGHT AND WEEKEND COVERAGE: Nights: Please contact pager [phone]. Hospital Medicine/Primary Attending: Harvinder Junior Jr., MD Subjective HPI: This is a 68 yo WM, with a PMH significant for Crohn's Disease (s/p resection of neoterminal ileum and ileocolonic anastomosis w ith diverting loop ileostomy 11/23/18), Pancreatic Insufficiency, Carcinoid Tumor, GOEMZ Cirrhosis complicated by esophageal varicies, CKD Stage III, Type 2 DM, CAD (s/p stent), Chronic Diastolic CHF and Hyperlipidemia, w ho presented to the ED on 01/04 with complaints of dehydration. The patie nt reported that over the previous few days he had been feeling dry an d experiencing lightheadedness, disorientation, and profound weakness which have accelerated quickly. He stated this was secondary to signifi cant output from his ileostomy that had been a chronic issue since it wa s placed on November 23 of this year. He was recently admitted from 11/19 0-12/22/18 after experiencing a Syncopal episode, was found to have LOR secondary to high ileostomy output requiring initial stay in ICU. He was supposed to start IV fluids on the day of admission, per [facility], but the needed supplies had not arrived and he was too dehydrated to start an IV, therefore he was told to go to ED. He had been emptying the ostomy bag every 1-2 hours. ? In the ED, Cr 2.36 (recent baseline 1.9 - 2.0), K 5.4, Mg 1. 3, WBC 4.7, Hgb 11.7. The patient was admitted to a medical bed and star pratik on IVFs. GI was consulted and stool studies were ordered. Metamucil w as added to Questran, Imodium and Lomotil.? Interval Events: Patient reports that he feels tired, washed -out, weak and achy. No fever or chills. Objective BP 113/56 Pulse 57 Temp (Src) 97.9 (Oral) Resp 18 Ht 5' 10 (1.78m) Wt 212 lb (96.2kg) SpO2 100% BMI 30.42 kg/(m2) . O2 Therapy: Room Air Physical Exam Performed: GENERAL: ill appearing, in no acute distress EYES: PERRLA, EOMI, Conjunctiva clear MOUTH and THROAT: membranes moist; no lesions NECK: supple, no lymphadenopathy or masses HEART: regular rate and rhythm, S1 and S2, no murmur LUNGS: clear to auscultation; no rales or wheezes ABDOMEN: Soft, nontender, bowel sounds normal, no masses; il eostomy shows thin green discharge EXTREMITY: no edema; no erythema NEURO: Alert and Oriented x3; Nonfocal PSYCH: Appropriate mood; Cooperative Lines, Drains, and Airways Line Peripheral 01/04/191833 Admission to Hospital Short Left An tecubital 20 Gauge less than 1 day Reviewed lines, drains, AND airways. Need to be continued . Medications: Reviewed Diagnostic tests reviewed: Most recent labs Most recent imaging Recent Labs 01/05/19 0331 01/04/19 1831 12/29/18 0828 12/21/18 0512 WBC 3.52* 4.73 6.61 < > 3.57* RBC 3.20* 3.67* 4.07* < > 2.96* HB 10.1* 11.7* 12.6* < > 9.2* HCT 31.5* 35.8* 39.9 < > 28.8* PLT 113* 141* 160 < > 94* MCV 98.4 97.5 98.0 < > 97.3 MCH 31.6 31.9 31.0 < > 31.1 MPV 12.3 12.5 12.6 < > 12.8* ABSNEUT -- 3.32 4.73 -- 2.57 NEUTP -- 70.2 71.5 -- 71.9 LYMPHP -- 14.4 13.9 -- 12.9 MONOP -- 10.8 10.0 -- 10.1 EODINP -- 3.8 3.8 -- 4.5 < > = values in this interval not displayed. Recent Labs 01/05/19 0331 01/04/19 1931 01/04/19 1831 12/29/18 0828 GLUC 106* -- 245* 123* NA 137 -- 137 137 K 4.5 -- 5.4* 4.7 CHLOR 105 -- 99 102 CO2 23 -- 24 20* CREAT 2.22* -- 2.36* 2.18* BUN 21 -- 23 17 ANION 9 -- 14 15 CA 9.2 -- 10.2 10.2 TPROT 5.9* 7.0 -- 7.4 ALB 3.5* 4.1 -- 4.4 TBILI 0.5 0.5 -- 0.6 ALKPHOS 155* 179* -- 181* AST 47* 62* -- 37 ALT 39 48 -- 18 Most recent labs Assessment AND Plan Active Hospital Problems as of 01/05/2019 Noted - Resolved Hospital * (Principal) Dehydration 01/05/2019 - Present Current Assessment AND Plan Assessment: Recurrent problem due to high output from ileostomy despite treatment Admitted for similar problem 12/16 - 12/22/18 but not as millie re this time Cr 2.36 - 2.22 (recent baseline 1.9) PLAN: Continue NS 100 cc/hr Follow BMP LOR (acute kidney injury) ([facility]) 01/05/2019 - Present Current Assessment AND Plan Assessment: Cr 2.36 - 2.22 (1.9 - 2.0) PLAN: Continue IVFs Monitor Cr CKD (chronic kidney disease) stage 3, GFR 30-59 ml/min ([facility]) 01/04/2019 - Present Current Assessment AND Plan Assessment: Baseline Cr 1.9 - 2.0 Cr 2.22 PLAN: Monitor as above High output ileostomy (HCC) 12/17/2018 - Present Current Assessment AND Plan Assessment: Plan to start IVFs at home but was unable to get arranged qu ickly enough Now on IVFs On Questran, Lomotil and Imodium at home GI consulted PLAN: Metamucil added Stool studies ordered Carcinoid tumor 12/27/2010 - Present Current Assessment AND Plan Assessment/PLAN: S/p bowel resection ~2010 Monthly Octreotide injections Exocrine pancreatic insufficiency Unknown - Present Current Assessment AND Plan Assessment/PLAN: GI increased dose of Creon Crohn's disease of small intestine with intestinal obstructi on (HCC) 04/02/2017 - Present Current Assessment AND Plan Assessment: Hx Crohn's Disease s/p resection of neoterminal ileum and il eocolonic anastomosis with diverting loop ileostomy 11/23/18 On Pentasa as OP PLAN: On Mesalamine while inpatient Follow-up on GI recommendations Hyperkalemia 12/17/2018 - Present Current Assessment AND Plan Assessment: K 5.4 - 4.5 PLAN: Continue IV NS Monitor Hypomagnesemia 01/05/2019 - Present Current Assessment AND Plan Assessment: Mg 1.3 - 1.4 PLAN: MagSulfate 4grams IV x1 ordered Follow Mg level 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, with long-term current use of insulin ([facility]) 12/12/2015 - Present Current Assessment AND Plan Assessment: HbA1c 5.8 on 12/29/18 On Novolog 70/30: 35units with breakfast and 25units with di nner PLAN: Home dose of Novolog ordered Follow Accuchecks TIDAC/HS CAD (coronary artery disease) Unknown - Present Current Assessment AND Plan Assessment/PLAN: History of stent Asymptomatic Chronic diastolic heart failure (HCC) 05/03/2016 - Present Current Assessment AND Plan Assessment/PLAN: Euvolemic, no signs of fluid overload 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) 12/09/2017 - Present Current Assessment AND Plan Assessment/PLAN: History of GOMEZ cirrhosis complicated by esophageal varices, anemia, thrombocytopenia, portal hypertensive gastropathy - MELD 14 Stable Continue current management Medication and Non-Pharmacologic VTE Prophylaxis/Anticoagula nts Anticoagulant AND Antiplatelet Medications (From admission, onward) Start Dose Route Frequency Ordered Stop 01/04/192199 clopidogrel 75 mg tab(s) (PLAVIX) 75 mg ORAL DAILY 01/04/192129 -- 01/04/192144 pneumatic compression stockings ([place]) 01/04/192144 activity - mobilize patient ([place]) VTE Prophylaxis: VTE prophylaxis appropriate Plan of care discussed with: Patient, Family/Significant Oth er: and RN SIGNATURE: Harvinder Junior Jr., MD PATIENT NAME: Venkata Leal DATE: January 05, 2019 TIME: 2:53 PM PAGER/CONTACT #: [phone] PROGRESS Normal 01-05-2019 [facility] ([id number]) ova and parasite scr on 2019-01-05 Ova and Parasite Culture Result - Negative Normal 01-05-2019 [facility] Scr for Giardia lamblia and ([id number]) Cryptosporidium species by EIA. Comment: Performed By: #### CBCDIF, P T, PTT, CK, CMP, LIPA, MG1 #### [facility] [address] [place], [place] [id number] occult blood screen on 2019-01-05 Occult Blood Screen Negative Normal 01-05-2019 [facility] ([id number]) Comment: Performed By: #### CBCDIF, P T, PTT, CK, CMP, LIPA, MG1 #### [facility] [address] [place] [phone] Occult Blood Source: Stool Normal 9 [facility] ([id number]) Comment: Performed By: #### CBCDIF, P T, PTT, CK, CMP, LIPA, MG1 #### [facility] [address] [place] [phone] nursing prog on 10-28-18 NURSING HNO ID: [id number] Normal 01-05-2019 [place] [facility] Author: Uyen (Rn) HITESH [facility] Service: Nursing ([id number] [phone]) Author Type: Registered Nurse Type: Nursing Progress Note Filed: 01/05/2019 3:58 PM Note Text: Nursing Progress Note Patient Name: Venkata Leal Patient Location: [place] [id number] Daily Note: 0700- Assumed care of Pt. Pt observed sleeping no signs of d istress. IVF infusing. SR on tele . 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 Pt abd tender. Sti ll has large amounts of output from Ileostomy Ileostomy. Pt also complain s of weakness and overall not feeling well. IVF infusing 1100- pt medicated for abd pain, IVF infusing. Pt No on cont act precautions. Stool sent 1300- Pt observed sleeping no signs of distress 1400- pt made Inpatient This note was completed by: Uyen Perdomo RN magnesium on 2018-02 Magnesium [Mass/Vol] 1.4 1.7-2.3 mg/dL Low 9 [facility] ([id number]) Comment: Performed By: #### CBCDIF, P T, PTT, CK, CMP, LIPA, MG1 #### [facility] [address] [place] [address] fecal lactoferrin o n 2019-01-05 Fecal Lactoferrin Test Result - Critically [address] [place] [address] Positive for abnormal ([id number]) lactoferrin, which may indicate presence of fecal white blood cells Comment: Performed By: #### CBCDIF, P T, PTT, CK, CMP, LIPA, MG1 #### [facility] [address] [place] [address] enteric bact pnl pcr on 2019-01-05 Campy jejun/coli DNA Not Detected Normal 2018 [facility] ([id number]) Comment: Performed By: #### CBCDIF, P T, PTT, CK, CMP, LIPA, MG1 #### [facility] [address] [place] [address] Salmonella spp. DNA Not Detected Normal [address] [place] [address] ([id number]) Comment: Performed By: #### CBCDIF, P T, PTT, CK, CMP, LIPA, MG1 #### [facility] [address] [place] [address] Shiga toxin gene(s) Not Detected Normal 019 [facility] ([id number]) Comment: Performed By: #### CBCDIF, P T, PTT, CK, CMP, LIPA, MG1 #### [facility] [address] [facility] [phone] Shigella/EIEC DNA Not Detected Normal 9 [facility] ([id number]) Comment: Performed By: #### CBCDIF, P T, PTT, CK, CMP, LIPA, MG1 #### [facility] [address] [facility] [phone] consult on CONSULT HNO ID: [id number] Normal 01-05-2019 [facility] Author: Michael Lock ([id number]) Service: Gastroenterology Author Type: Physician Type: Consults Filed: 01/05/2019 12:46 PM Note Text: GASTROENTEROLOGY CONSULT NOTE PATIENT NAME: Venkata Leal SERVICE DATE: January 05, 2019 SERVICE TIME: 8:09 AM PRIMARY CARE PHYSICIAN: ANALISA GARVEY MD ATTENDING PHYSICIAN: Harvinder Junior MD REASON FOR ADMISSION: Dehydration REASON FOR CONSULTATION: High ileostomy output HPI: This is a 68 year old male with a past medical history significant for carcinoid tumor (s/p small bowel resection about 8 years ago), Crohn's disease complicated by ileal stricture s/p resection of neot erminal ileum and ileocolonic anastomosis with diverting loop ileostomy on Pentasa, GOMEZ cirrhosis complicated by esophageal varices, e xocrine pancreatic insufficiency per patient (on Creon), TIA, CAD (o n Plavix), CKD, ALEXIS who presents with concerns for dehydration d/t high ostomy output. Patient recently admitted to [facility] from 12/16-12/22/18 with similar presentation at which time my partner Dr. Cassandra Tobias saw jose sharma and he was discharged on regimen of Questran 4 grams BID, Imodium 4 mg TID, octreotide injections per Dr. Mora (oncology), Protonix 20 mg daily, Creon 1 capsules with meals which appears to be controlling ileost leena output. He had follow up with 12/23/[address] 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 Home health was also ordered with plans for patient to receive IV F 3x/week. He was scheduled for IV infusion yesterday but home health care did not have all the supplies and he was concerned about dehydration so shonda caban presented to ER. In ER labs appeared to be at baseline. He was admitted t o observation to receive IV fluids and GI consult has been requested to rom corrales in management. He reports some mild pain around his midline erna gical incision especially with movement. He has some intermittent nausea bu t no vomiting. No heartburn, dysphagia or odynophagia. Appetite is good and weight is steady. He reports his ileostomy output is typically around 2 liters of liquid yellow stool daily. He has noticed small amounts of b right red blood in collection bag which he feels is from his stoma. No melena. Prior to recent surgery with ileostomy creation patient was having chronic diarrhea. He is on Plavix for CAD. No recent antibiotics. No travel or sick contacts. ALLERGIES: Lipitor Myalgia Zocor Myalgia Novocain Headache Lescol Myalgia PAST MEDICAL HISTORY: Gastritis CKD Anal fissure Arteriosclerosis mesenteric artery Bladder cancer BPH Carcinoid tumor Central sleep apnea Crohn's disease CAD Depression DDD Duodenitis GERD Hypothyroidism IBS Hyperlipidemia GOMEZ cirrhosis Obesity PVD Pancreatic insufficiency TIA DM type 2 HTN Vitamin B 12 deficiency Vitamin D deficiency PAST SURGICAL HISTORY: Appendectomy Right shoulder arthroscopy Femoral angioplasty Coronary artery stenting Knee arthroscopy Incisional hernia repair Cholecystectomy Cataract extraction Tonsillectomy Rotator cuff repair Small bowel resection for carcinoid tumor Resection of neoterminal ileum and ileocolonic anastomosis w ith diverting loop ileostomy 11/23/18 MEDICATIONS: Prior to Admission Medications: metoprolol tartrate, short acting, (LOPRESSOR) 25 mg tablet, Take 1 tablet by mouth twice daily., Disp: 60 tablet, Rfl: 1, 01/03/2019 a t 2099 tamsulosin ER (FLOMAX) 0.4 mg cap, Take 1 capsule by mouth d aily at bedtime., Disp: , Rfl: , 01/03/2019 at 2100 famotidine (PEPCID) 20 mg tablet, TAKE 1 TABLET BY MOUTH TWI CE DAILY, Disp: 60 tablet, Rfl: 2, 01/03/2019 at 2100 gabapentin (NEURONTIN) 300 mg capsule, Take 1 capsule by sheryl daily at bedtime for 180 days., Disp: 90 capsule, Rfl: 1, 01/03/2019 at 2100 melatonin 10 mg subl, Dissolve 1 tablet under the tongue at bedtime as needed. , Disp: , Rfl: , 01/03/2019 at 2100 0.9 % sodium chloride (NACL 0.9%) solution, Infuse 1L NS ove r 3 hours, Disp: 1000 mL, Rfl: 13 blood sugar diagnostic (ONETOUCH VERIO) test strip, Test blo od sugar(s) 3 times daily and as needed for symptoms of high or low sugars . Dx: Type 2 DM - Uncontrolled E11.65 Insulin: Yes, Disp: 100 Strip, Rfl: 11 perflutren lipid microspheres (DEFINITY) 1.1 mg/mL injection (to be provided with echo procedure), Inject 1.3 mL intravenously a s directed. Administration Instructions: If no IV access, insert saline lock prior to administering contrast. Discontinue saline lock post exam. I f patient has central line or IVAD, may access for administration accordin g to line specific nursing protocol. Once exam is complete, flush line and de-access per line specific nursing protocol. Diluted IV Bolus: Dilute 1.3 ml of Definity with 8.7 ml of preservative-free saline., Disp: 1.3 mL, Rfl: 0 cholecalciferol, Vitamin D3, (VITAMIN D3) 50,000 unit cap ca psule, Take 1 capsule by mouth two times a week., Disp: 24 capsule, Rfl: 2 loperamide (IMODIUM) 2 mg cap(s), Take 2 capsules by mouth b efore meals and at bedtime., Disp: 720 capsule, Rfl: 0 diphenoxylate-atropine (LOMOTIL) 2.5-0.025 mg per tablet, Ta ke 1 tablet by mouth before meals and at bedtime for 30 days., Disp: 120 ta blet, Rfl: 0 cholestyramine (QUESTRAN) 4 gram packet, Take 1 Packet by mo [facility] twice daily with meals., Disp: 60 Packet, Rfl: 1, Taking dicyclomine (BENTYL) 10 mg capsule, Take 1 capsule by mouth four times daily as needed (abd cramping)., Disp: , Rfl: , Taking oxyCODONE IR (ROXICODONE) 5 mg immediate release tablet, Jose e 1 tablet by mouth every 6 hours as needed for Pain for up to 7 days., Di sp: , Rfl: 0, Taking blxdzm-kushdqje-xzlzdkx (CREON 24) 24,000-76,000 -120,000 un it cpDR, Take 1 capsule by mouth twice daily with meals., Disp: , Rfl: , T aking ferrous sulfate 325 mg (65 mg iron) EC tablet, Take 1 tablet by mouth daily with breakfast., Disp: 30 tablet, Rfl: 1, Taking COMPOUNDED PRESCRIPTION, Please dispense a rollator with a s eat., Disp: 1 Each, Rfl: 0, Taking acetaminophen (TYLENOL) 325 mg tablet, Take 2 tablets by sheryl th every 6 hours as needed for Pain., Disp: , Rfl: , Taking ondansetron (ZOFRAN) 8 mg tablet, Take 1 tablet by mouth josh ry 8 hours as needed., Disp: 20 tablet, Rfl: 2, Taking insulin aspart protamine-insulin aspart (NovoLOG 70-30) 100 unit/mL flexpen, INJECT 35 UNITS SUBCUTANEOUSLY BEFORE BREAKFAST AND 25 UNITS BEFORE EVENING MEAL, Disp: 20 Pen, Rfl: 1, Taking pantoprazole DR (PROTONIX) 20 mg tablet, Take 1 tablet by mo uth daily before breakfast. Take on empty stomach, 1/2 hr before meal. , Disp: 30 tablet, Rfl: 2, Taking sertraline (ZOLOFT) 100 mg tablet, Take 1 tablet by mouth on ce daily., Disp: 30 tablet, Rfl: 11, Taking nicotine polacrilex (NICORETTE) 2 mg gum, Take 1 Each by sheryl th every 2 hours as needed., Disp: , Rfl: , Taking levothyroxine (LEVOXYL) 137 mcg tablet, Take 1 tablet by sheryl th once daily. Take on empty stomach. For Thyroid., Disp: 90 tablet, Rfl: 3 , Taking flash glucose scanning reader (FREESTYLE JULIA 14 DAY READER ) [facility] [place], Use as directed E 11.65, Disp: 1 Each, Rfl: 0, Taking flash glucose sensor (FREESTYLE JULIA 14 DAY SENSOR) kit, E DIRECTED E11.65, Disp: 2 Kit, Rfl: 11, Taking BIPAP, Change settings: Bilevel PAP 30/25 cmH2O with humidif ication and back up rate 10 with 2 L bled in HS., Disp: 1 Device, Rfl: 1 1, Taking lidocaine (LIDODERM) 5 %, Apply 1 Patch as directed every 12 hours. Remove old patch prior to placing new patch., Disp: 30 Patch, Rfl: 2, Taking Mesalamine (PENTASA) 500 mg CR capsule, Take 2 capsules by m outh four times daily., Disp: 720 capsule, Rfl: 3, Taking rosuvastatin (CRESTOR) 5 mg tablet, Take 1 tablet by mouth t wice a week., Disp: , Rfl: , Taking finasteride (PROSCAR) 5 mg tablet, Take 1 tablet by mouth on ce daily., Disp: 90 tablet, Rfl: 3, Taking DULoxetine (CYMBALTA) 20 mg capsule, Take 1 capsule by mouth once daily., Disp: 90 capsule, Rfl: 3, Taking clopidogrel (PLAVIX) 75 mg tablet, Take 1 tablet by mouth on ce daily., Disp: 90 tablet, Rfl: 3, Taking Wheel Chair diana, Wheelchair with foot supports Dx: spinal s tenosis, displacement of lumbar intervertebral disc, Disp: 1 Device, Rfl: 0, Taking OCTREOTIDE ACETATE (SANDOSTATIN INJECTION), by INJECTION(UNS PECIFIED PARENTERAL ROUTES) route once every month., Disp: , Rfl: , T aking CYANOCOBALAMIN, VITAMIN B-12, (B-12 COMPLIANCE INJECTION), b y INJECTION(UNSPECIFIED PARENTERAL ROUTES) route once every mo nth., Disp: , Rfl: , Taking Insulin Mackay, Disposable, (TIESHA PEN NEEDLE) 32 gauge x 5/ 32 ndle, Use one needle for each dose. 2/day., Disp: 100 Each, Rfl: 11, T aking COMPOUNDED PRESCRIPTION, Lumbar support brace Dx: M48.06, M5 4.31, M51.26, Disp: 1 Each, Rfl: 0, Taking Lancing Device misc, 1 Each twice daily. Dx: Type 2 DM - Unc ontrolled E11.65 Insulin: Yes, Disp: 100 Each, Rfl: 11, Taking Current Hospital Medications: Current Facility-Administered Medications Medication Dose Route Frequency - dicyclomine 10 mg cap(s) (BENTYL) 10 mg ORAL QID PRN - gabapentin 300 mg cap(s) (NEURONTIN) 300 mg ORAL AT BEDTIM E - diphenoxylate-atropine 2.5-0.025 mg 1 tablet (LOMOTIL) 1 t ablet ORAL AC and HS - loperamide 4 mg cap(s) (IMODIUM) 4 mg ORAL AC and HS - rosuvastatin 5 mg tab(s) (CRESTOR) 5 mg ORAL 2/WK - finasteride 5 mg tab(s) (PROSCAR) 5 mg ORAL DAILY - tamsulosin ER 0.4 mg cap(s) (FLOMAX) 0.4 mg ORAL AT BEDTIM E - metoprolol tartrate (short acting) 25 mg tab(s) (LOPRESSOR ) 25 mg ORAL BID - cholestyramine 4 g packet (QUESTRAN) 4 g ORAL BID w MEALS - famotidine 20 mg tab(s) (PEPCID) 20 mg ORAL DAILY - insulin 75/25 lispro protamine/lispro units/mL 25 Units in jection (mixed intermediate and rapid acting) (HumaLOG 75/25) 25 Units SUBC UTANEOUS DAILY AT 6 PM - ferrous sulfate 325 mg tab(s) 325 mg ORAL DAILY WITH BREAK FAST - msqkun-xmtgxvjs-mzbnzfp 1 capsule cap(s) (CREON 24) 1 caps ule ORAL BID w MEALS - clopidogrel 75 mg tab(s) (PLAVIX) 75 mg ORAL DAILY - pantoprazole DR 20 mg tab(s) (PROTONIX) 20 mg ORAL BEFORE BREAKFAST DAILY - sertraline 100 mg tab(s) (ZOLOFT) 100 mg ORAL DAILY - DULoxetine 20 mg cap(s) (CYMBALTA) 20 mg ORAL DAILY - levothyroxine 137 mcg tab(s) (SYNTHROID) 137 mcg ORAL EDUIN Y - lidocaine 5 % 1 Patch (LIDODERM) 1 Patch TRANSDERMAL q 12 H - NaCl 0.9% 3-5 mL 3-5 mL INTRAVENOUS q 12 H - NaCl 0.9% iv infusion 100 mL/hr INTRAVENOUS CONTINUOUS - dextrose 40 % 15 g 15 g ORAL PRN Or - glucagon 1 mg injection (GLUCAGEN) 1 mg INTRAMUSCULAR PRN Or - dextrose 50 % 12.5 g injection 12.5 g INTRAVENOUS PRN - lidocaine patch - REMOVE OTHER AT BEDTIME And - lidocaine - VERIFY PATCH OTHER q 8 H - insulin 75/25 lispro protamine/lispro units/mL 35 Units in jection (mixed intermediate and rapid acting) (HumaLOG 75/25) 35 Units SUBC UTANEOUS DAILY WITH BREAKFAST - Mesalamine 1,000 mg cap(s) (PENTASA) 1,000 mg ORAL QID - ondansetron 8 mg tab(s) (ZOFRAN) 8 mg ORAL TID PRN FAMILY HISTORY: Sisters x 2: cirrhosis ? SOCIAL HISTORY: Marital status: Children: three Alcohol use: Denies Tobacco use: Former quit 2006 REVIEW OF SYSTEMS: CONSTITUTIONAL: No fevers, chills, night sweats, unintended weight loss HEENT: Denies frequent or severe headaches EYES: No diplopia or blurry vision CARDIOVASCULAR: No chest pain PULM: Chronic dyspnea GI: Per HPI : No new urinary complaints, including; dysuria, gross hem aturia or pyuria NEURO: No dizziness, lightheadedness or vertigo MUSC/SKEL: No new joint pain, swelling, or erythema PSYCH: No concerns regarding depression, anxiety or panic INTEGUMENTARY: No new skin changes (rash, new or changing mo le, new growth) PHYSICAL EXAM: Patient Vitals for the past 24 hrs: BP Temp Temp src Pulse Resp SpO2 Height Weight 01/05/19 0737 122/59 36.4 ?C (97.5 ?F) Oral 65 18 97 % ? ? 01/05/19 0343 109/59 36.4 ?C (97.5 ?F) Oral 60 16 98 % ? ? 01/04/19 2135 113/75 36.7 ?C (98.1 ?F) Oral 69 18 100 % ? ? 01/04/19 2100 138/69 ? ? 65 12 100 % ? ? 01/04/19 1935 127/68 ? ? 67 18 97 % ? ? 01/04/19 1824 142/74 36.6 ?C (97.8 ?F) Oral 82 18 99 % 177.8 cm (5' 10) 96.2 kg (212 lb) Body mass index is 30.42 kg/m?. GENERAL: Alert AND oriented x 3. Cooperative. NAD EYES: No scleral icterus SKIN: Culp in color. No jaundice LUNGS: Clear to auscultation CARDIAC: RRR ABDOMEN: Soft, non distended. Non tender. No palpable masses or organomegaly. No guarding or rebound tenderness elicited. Fuad wel sounds normal. Ileostomy to right mid abdomen with light brown liqu id stool in collection bag. EXTREMITIES: No upper or lower extremity edema LABS: Diagnostic tests reviewed for today's visit: CBC, Coags, BMP, Mg, Phos Recent Labs 01/05/19 0331 01/04/19 1831 WBC 3.52* 4.73 HB 10.1* 11.7* HCT 31.5* 35.8* PLT 113* 141* NA 137 137 K 4.5 5.4* CHLOR 105 99 CO2 23 24 BUN 21 23 CREAT 2.22* 2.36* GLUC 106* 245* CA 9.2 10.2 MG 1.4* -- Liver Function, Amylase, AND Lipase Recent Labs 01/05/19 0331 01/04/19 1931 TPROT 5.9* 7.0 ALB 3.5* 4.1 ALT 39 48 AST 47* 62* ALKPHOS 155* 179* TBILI 0.5 0.5 MISC LABS 06/13/2017 Liver biopsy Liver, random right lobe, biopsy ?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 See comment. COMMENT The biopsy demonstrates distorted liver architecture with ci rrhosis as highlighted on the trichrome stain. The lobular parenchyma d emonstrates mild macrovesicular steatosis representing approximately 15- 20% of the liver surface. Rare ballooned hepatocytes with Beba hyali ne and scattered foci of lobular inflammation are noted. The portal tracts show minimal chronic inflammatory infiltrates composed mainly of small mature lymphocytes without interface activity. There is minimal jones e ductular proliferation. The interlobular bile ducts are intact. Granu samina are not seen. There is no evidence of cholestasis. PAS/D stain is ne gative for alpha-1 antitrypsin inclusions. The iron stain does not reve al increased iron deposition. The findings are consistent with end-stage liver disease (ci rrhosis) with associated features of steatohepatitis. This pattern of inju ry has been associated with obesity/metabolic syndrome, diabetes mellitu s, drug-induced injury (steroids), alcohol use, total parental nutrition, Wi lson's disease, among others. ?? ? Component Latest Ref Rng AND Units 11/12/2018 Hep B Core Ab, Total Negative Negative Hep C Antibody IA Negative Negative Hep B Surface Ag Negative Negative Hep B Surface Ab, Qual Negative Negative Iron 41 - 186 ug/dL 78 TIBC 232 - 386 ug/dL 390 (H) Transferrin Saturation 15 - 57 % 20 IgA 78 - 391 mg/dL 234 Transglutaminase Ab, IgA <20 Units 8 Interpretation (Celiac Screen) No serologic evidence of neri ac disease. No serologic evidence of celiac disease. V.zoster IgG, Qual Negative Positive (A) Varicella zoster, IgG Index Value 950.5 EBV VCA IgG, Qual Negative Positive (A) EBV VCA, IgG AI >8.0 CRP <0.9 mg/dL 0.8 Ferritin 30.3 - 565.7 ng/mL 116.0 Vitamin B12 232 - 1,245 pg/mL 771 Hep A Ab, Total Negative Negative Hep B Surf Ab Quant <8.00 mIU/mL <8.00 ? 11/23/18 surgical pathology Ileocolic anastomosis, resection: - Chronic active ileitis with ulceration. - Benign lymph nodes. ?? ? Component Latest Ref Rng AND Units 12/17/2018 Iron 41 - 186 ug/dL 30 (L) TIBC 232 - 386 ug/dL 372 Transferrin Saturation 15 - 57 % 8 (L) Folate >4.7 ng/mL 6.7 Ferritin 30.3 - 565.7 ng/mL 70.6 Vitamin B12 232 - 1,245 pg/mL >2,000 (H) 12/17/18 Stool studies: FL (-). ?Cx (-). C-diff (-). ?OB (-) . OANDP (-) Component Latest Ref Rng AND Units 12/17/2018 5 HIAA, Urine Random 0.0 - 10.0 mg/g Creat 1.6 Component Latest Ref Rng AND Units 12/19/2018 Total Weight, Feces g 1,389 Collection Period (FECFAT) hrs 24 hr 2 containers Fat %, Feces Not Applicable Fat Quant, Feces 2 - 7 g/24 h 49 (H) 12/21/18 AFP: <3 ? RADIOLOGY? 09/10/18 CT A/P Liver: Normal unenhanced liver. IMPRESSION: Small bowel stricture involving 4 cm segment of small bowel in the right abdomen at the small bowel anastomosis site, new since CT 03/28/2018. No metastatic disease in the abdomen or pelvis. ? 09/30/18 NM Tumor octreotide scan IMPRESSION: No areas of abnormal indium-111 uptake are seen suggest a le seth with high metastatic receptor concentration. ? 11/24/2018 KUB IMPRESSION: Lines, tubes, and devices: NG/OG tube terminates in the prox imal stomach with side-port subdiaphragmatic. Bowel: No dilated bowel. Other: Right upper quadrant surgical clips. ?Midline surgica l clement. ? 12/16/18 CXR IMPRESSION: No acute radiographic abnormality. ? 12/20/18 KUB IMPRESSION: Nonobstructive bowel gas pattern. ?Ileostomy in the right fl ank. ?No free intra-abdominal air. ? MOST RECENT EGD?12/15/17 with Serafin Henley MD for hx eso phageal varices - Grade I esophageal varices. - Portal hypertensive gastropathy. - Normal examined duodenum. - No specimens collected.? ? MOST RECENT COLONOSCOPY?10/16/18 with Serafin Henley MD ([facility]) for history of Crohn's disease, stricture seen on CT The colon (entire examined portion) appeared normal. Despite multiple maneuvers including pressure, changes in body position and c hanging the pediatric scope for an adult scope, I was unable to enter th e ileum ASSESSMENT 1- High ileostomy output 2- CKD stage 3 / Dehydration 3- Hx Crohn's disease s/p resection of neoterminal ileum and ileocolonic anastomosis with diverting loop ileostomy 11/23/18 on Pentasa 4- GOMEZ cirrhosis complicated by esophageal varices, anemia, thrombocytopenia, portal hypertensive gastropathy ?- MELD NA score: 14 (12/22) 5- Hx carcinoid tumor s/p small bowel resection 6- Hx exocrine pancreatic insufficiency on Creon 7- CAD (Plavix 8- RIMA ? PLAN - Monitor ileostomy output - Check stool studies - Restart Metamucil 1 packet BID - Continue Questran 4 g twice daily / Imodium 4 mg QID / Lom otil 1 tab QID - Increase Creon to 2 capsules with meals - Continue Mesalamine 1 gram QID - On monthly octreotide injections (patient reports he recei ganesh about three weeks ago with Dr. Mora) - Protonix 20 mg po daily - Continue Ferrous Sulfate 325 mg po daily (patient is s/p I V iron during last admission) - IVF per IM - Heart healthy diet - Monitor daily CBC, CMP - Check INR - Further recommendations pending patient's clinical course and above evaluation - Of note patient's established GI is Dr. Serafin Henley Thank you for the opportunity to participate in the care of this patient. I will continue to follow with you. SIGNATURE: Michael Lock MD DATE: January 05, 2019 TIME: 8:09 AM comp metabolic panel on 2019-01-05 Albumin [Mass/Vol] 3.5 3.9-4.9 g/dL Low 01-05-2019 [facility] ([id number]) Comment: Performed By: #### CBCDIF, P T, PTT, CK, CMP, LIPA, MG1 #### [facility] [address] [place] [address] ALP [Catalytic activity/Vol] 155 38-113 U/L High 1 03-07-2018 [facility] ([id number]) Comment: Performed By: #### CBCDIF, P T, PTT, CK, CMP, LIPA, MG1 #### [facility] [address] [place], [place] [phone] ALT [Catalytic activity/Vol] 39 10-54 U/L Normal 1 03-07-2018 [facility] ([id number]) Comment: Performed By: #### CBCDIF, P T, PTT, CK, CMP, LIPA, MG1 #### [facility] [address] [place], [place] [address] Anion gap [Moles/Vol] 9 9-18 mmol/L Normal 01-06-20 [facility] ([id number]) Comment: Performed By: #### CBCDIF, P T, PTT, CK, CMP, LIPA, MG1 #### [facility] [address] [place] [address] AST [Catalytic activity/Vol] 47 14-40 U/L High 1 03-07-2018 [facility] ([id number]) Comment: Performed By: #### CBCDIF, P T, PTT, CK, CMP, LIPA, MG1 #### [facility] [address] [place] [address] Bilirubin [Mass/Vol] 0.5 0.2-1.3 mg/dL Normal [facility] ([id number]) Comment: Performed By: #### CBCDIF, P T, PTT, CK, CMP, LIPA, MG1 #### [facility] [address] [place] [address] Calcium [Mass/Vol] 9.2 8.5-10.2 mg/dL Normal 01-05-2019 [facility] ([id number]) Comment: Performed By: #### CBCDIF, P T, PTT, CK, CMP, LIPA, MG1 #### [facility] [address] [facility] [phone] Chloride [Moles/Vol] 105 97-105 mmol/L Normal 9 [facility] ([id number]) Comment: Performed By: #### CBCDIF, P T, PTT, CK, CMP, LIPA, MG1 #### [facility] [address] [place] [place] [phone] CO2 [Moles/Vol] 23 22-30 mmol/L Normal 01-05-2019 [facility] ([id number]) Comment: Performed By: #### CBCDIF, P T, PTT, CK, CMP, LIPA, MG1 #### [facility] [address] [phone] Creatinine [Mass/Vol] 2.22 0.73-1.22 mg/dL High 01-06-20 [facility] ([id number]) Comment: Performed By: #### CBCDIF, P T, PTT, CK, CMP, LIPA, MG1 #### [facility] [address] [place] [phone] eGFR- Amer. 36 Normal 01-05-2019 [facility] ([id number]) Comment: Performed By: #### CBCDIF, P T, PTT, CK, CMP, LIPA, MG1 #### [facility] [address] [place] [phone] GFR/1.73 sq M predicted among 30 . Normal 01-05-2019 [facility] ([id number]) non-blacks MDRD (S/P/Bld) [Vol rate/Area] Comment: Result Comment: eGFR (Estima pratik GFR) Units of measure: mL/min/1.73 meters squared eGFR is derived from the ree xpressed MDRD Study equation using the following parameters: serum creatinine, age, gender and race. The creatinine assay has been calibrated to be traceable to IDMS. An eGFR <60 mL/min/1.73m2 fo r >3 months is consistent with chronic kidney disease. Refer to KDOQI guidelines for clinical interpretation. In patients with unstable re nal function, e.g. those with acute kidney injury, the eGFR may not accurately reflect actual GFR. Performed By: #### CBCDIF, P T, PTT, CK, CMP, LIPA, MG1 #### [facility] [address] [facility] [phone] Glucose [Mass/Vol] 106 74-99 mg/dL High 01-05-2019 [facility] ([id number]) Comment: Result Comment: The [place] Diabetes Association (ADA) provides guidance for cutoff values for fasting glucose and random glucose. The ADA defines fasting as no caloric intake for at least 8 hours. Fas ting plasma glucose results between 100 to 125 mg/dL indicate increased risk for diabetes (prediabetes). Fasting plasma glucose resul ts greater than or equal to 126 mg/dL meet the criteria for diagnosis of diabetes. In the absence of unequivocal hyperglycemia, results should be confirmed by repeat testing. In a patient with classic s ymptoms of hyperglycemia or hyperglycemic crisis, random plasma glucose results greater than or equal to 200 mg/dL meet the criteria for diagnosis of diabetes. Reference: Standards of [facility] Care in Diabetes 2016, [place] [employer] Association. Diabetes Care. 2016.39(Suppl 1). Performed By: #### CBCDIF, P T, PTT, CK, CMP, LIPA, MG1 #### [facility] [address] [facility] [phone] Potassium [Moles/Vol] 4.5 3.7-5.1 mmol/L Normal 01-06-20 [facility] ([id number]) Comment: Performed By: #### CBCDIF, P T, PTT, CK, CMP, LIPA, MG1 #### [facility] [address] [facility] [phone] Protein [Mass/Vol] 5.9 6.3-8.0 g/dL Low 01-05-2019 [facility] ([id number]) Comment: Performed By: #### CBCDIF, P T, PTT, CK, CMP, LIPA, MG1 #### [facility] [address] [facility] [phone] Sodium [Moles/Vol] 137 136-144 mmol/L Normal 01-05-2019 [facility] ([id number]) Comment: Performed By: #### CBCDIF, P T, PTT, CK, CMP, LIPA, MG1 #### [facility] [address] [facility] [phone] Urea nitrogen [Mass/Vol] 21 9-24 mg/dL Normal 01-05 [facility] ([id number]) Comment: Performed By: #### CBCDIF, P T, PTT, CK, CMP, LIPA, MG1 #### [facility] [address] [facility] [phone] cnptoutreach on 201 10-28-18 CNPTOUTREACH Normal 01-05-2019 [facility] ([id number]) cbc on 2019-01-05 Erythrocyte distribution 15.9 11.5-15.0 % High 01-05 [facility] ([id number]) width (RBC) [Ratio] Comment: Performed By: #### CBCDIF, P T, PTT, CK, CMP, LIPA, MG1 #### [facility] [address] [facility] [phone] Hematocrit (Bld) [Volume 31.5 39.0-51.0 % Low 01-05 [facility] (52386) fraction] Comment: Performed By: #### CBCDIF, P T, PTT, CK, CMP, LIPA, MG1 #### [facility] [address] [facility] [phone] Hemoglobin (Bld) 10.1 13.0-17.0 g/dL Low 01-05-2019 [facility] (13003) [Mass/Vol] Comment: Performed By: #### CBCDIF, P T, PTT, CK, CMP, LIPA, MG1 #### [facility] [address] [facility] [phone] MCH (RBC) [Entitic mass] 31.6 26.0-34.0 pG Normal 01-05 [facility] ([id number]) Comment: Performed By: #### CBCDIF, P T, PTT, CK, CMP, LIPA, MG1 #### [facility] [address] [facility] [phone] MCHC (RBC) [Mass/Vol] 32.1 30.5-36.0 g/dL Normal 01-06-20 [facility] ([id number]) Comment: Performed By: #### CBCDIF, P T, PTT, CK, CMP, LIPA, MG1 #### [facility] [address] [place] [address] MCV (RBC) [Entitic vol] 98.4 80.0-100.0 fL Normal 01-05 [facility] (61987) Comment: Performed By: #### CBCDIF, P T, PTT, CK, CMP, LIPA, MG1 #### [facility] [address] [facility] [phone] Platelet mean volume (Bld) 12.3 9.0-12.7 fL Normal [facility] (75442) [Entitic vol] Comment: Performed By: #### CBCDIF, P T, PTT, CK, CMP, LIPA, MG1 #### [facility] [address] [place] [address] Platelets (Bld) [#/Vol] 113 150-400 k/uL Low 2018 [facility] ([id number]) Comment: Performed By: #### CBCDIF, P T, PTT, CK, CMP, LIPA, MG1 #### [facility] [address] [place] [address] RBC (Bld) [#/Vol] 3.20 4.20-6.00 m/uL Low 01-05-2019 [facility] ([id number]) Comment: Performed By: #### CBCDIF, P T, PTT, CK, CMP, LIPA, MG1 #### [facility] [address] [place] [address] WBC (Bld) [#/Vol] 3.52 3.70-11.00 k/uL Low 01-05-2019 [facility] ([id number]) Comment: Performed By: #### CBCDIF, P T, PTT, CK, CMP, LIPA, MG1 #### [facility] [address] [place] [address] case mgt init asses on 2019-01-05 CASE MGT INIT HNO ID: [id number] Normal 019 [facility] Author: Eugenia Wood (Sw) ([id number]) Service: Care Management Author Type: Pony Rougher Type: Care Mgt Initial Assessment Filed: 01/05/2019 1:03 PM Note Text: CARE MANAGEMENT: ASSESSMENT AND DISCHARGE PLAN SERVICE DATE: 01/05/2019 SERVICE TIME: 11:45 AM PRIMARY CARE PHYSICIAN: ANALISA GARVEY MD - confirmed. Per , pt will follow up wi th specialist Dr. 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 Yes Is This a Planned Readmission? No: Recurrent symptoms of und erlying disease Followed Up with Appointment Prior to Admission: Appointment completed Where Did the Patient Come From? Home Intervention Taken to Avoid Future Readmission? Resume [facility], f/u with colorectal surgery Advance Directive: Current Advance Directive: Health Care Power of Ball Winder;Christina ing Will In Chart: Yes Up To Date and Valid: Yes Health Literacy: 1. How often do you need to have someone help you when you r ead instructions, pamphlets, or other written material from your doctor or pharmacy? Never - 1 2. How confident are you filling out medical forms by yourse lf? Extremely - 1 If Patient scores > 3 on either question, the following inte rventions were put into place: Patient did not score > 3 FUNCTIONAL AND COGNITIVE/BEHAVIORAL PRIOR TO ADMISSION: Baseline Mental Status: Alert AND Oriented, Person, Place , Time and Situation Functional Status: Independent Does Patient Currently Receive Any Community Services or [facility] e Care? Home Health Care Agency: [facility]; Phone: ; Active. Equipment Prior to Admission: Rollator Scooter Walker Wheelchair grab bars, ileostomy supplies Has the Patient Been in a Penitentiary Facility in the [facility] 30 days? No SOCIAL: Living Arrangement: Home Lives With: Spouse Financial Resources: Retired Primary Contact: Extended Emergency Contact Information Primary Emergency Contact: Citlaly Leal Address: [address] [place] [address] [facility] Mobile Relation: Spouse Secondary Emergency Contact: caprice fragoso Mobile Relation: Daughter Home Health Clinical Supervisor needed? No Supportive: Yes Other Important Patient Contacts: None Caregiver Assessment: Caregiver is ready, willing and able to meet the patient's n eeds as recommended by the inter-professional team? Yes Patient's transition needs and plan for meeting these needs: return home with supportive and resume [facility] Does the patient have an acute stroke diagnosis, or has the patient had a stroke during this admission? No Medication Adherence: I am convinced of the importance of my prescription medicati on: Agree completely - 0 I worry that my prescription medication will do more harm th an good to me Disagree completely - 0 I feel financially burdened by my [id number] expenses for my prescription medication: Disagree completely - 0 Patient is categorized as low risk < 2 Are you interested in bedside delivery of your medications? No Per spouse, preferred pharmacy is [employer] mail order or [facility] or short term medications Is the Patient Psychosocially Complex? No ASSESSMENT AND PLAN: Medical Needs: 2 or more chronic diseases, Cancer - active treatment/follow up , Diabetes - Type 2, Renal Failure - Acu te or Chronic and Wound Care - active or potential Psychosocial Needs: None FREEDOM OF CHOICE EXPLAINED: Yes explained to Provider List: declined list, plan to resume with current ency Preference: Resume services with [facility] POTENTIAL TRANSITION PLANS Home Shelter OT/PT Met with pt bedside, introduced self and role of case manage ment. Pt did not participated in assessment, information above gathered f rom /POA. Per , pt has needed DME and is independent with ADL's at baseline. states pt is active with [facility] and would like to resume services, referral sent. also requests that call be placed to Dr. Teixeira/colorectal surgeon at [facility], as his office has previously requested to be notified of any admissions, CORPORATE REPRESENTATIVE notified Dr Bryan Teixeira's office of admission. will transport pt home. Anticipate complex d/c needs, case management to remain available for d/c planning and assist as needed. SIGNATURE: LARRY Castañeda PATIENT NAME: Venkata andrade DATE: January 05, 2019 TIME: 12:42 PM PAGER/CONTACT #: [phone] c difficile pcr on 2019-01-05 C difficile PCR Negative for C. Normal 01-06-20 [facility] ([id number]) difficile toxin by PCR Comment: Performed By: #### CBCDIF, P T, PTT, CK, CMP, LIPA, MG1 #### [facility] [address] [facility] [phone] nursing prog on 10-28-17 NURSING HNO ID: [id number] Normal 01-04-2019 [place] [facility] Author: Estela (Rn) Bianca RN Hospital Service: Nursing (00 [phone]) Author Type: Registered Nurse Type: Nursing Progress Note Filed: 01/05/2019 4:32 AM Note Text: Nursing Progress Note Patient Name: Venkata Leal Patient Location: [place] [id number]- Daily Note: 2127 Patient arrived to the unit at this time in stable cond ition via W/C from ED. Family at bedside. Patient up independently in room . Patient reports he feels weaker and dehydrated. Patient remains on R A. Ileostomy noted to RLQ. Abdominal incision on abdomen intact. 2204 Lidocaine patch placed on abdomen around ileostomy acco rding to patients request. IVF started 2300 Patient observed resting in bed with eyes closed and ea sy respirations. No observation of pain at this time. Remains o n RA. IVF maintained. NSR on tele 010 Patient observed resting in bed with eyes closed and ea sy respirations. No observation of pain at this time. Remains o n RA. IVF maintained. NSR on tele 023 Ileostomy bag changed due to leakage 0300 Patient observed resting in bed with eyes closed and ea sy respirations. No observation of pain at this time. Remains o n RA. IVF maintained. NSR on tele 050 Patient observed resting in bed with eyes closed and ea sy respirations. No observation of pain at this time. Remains o n RA. IVF maintained. NSR on tele This note was completed by: Estela Valenzuela RN hosp on 2019-01-04 HOSP Patient:Venkata Leal Normal 2018 [facility] ) Height:5' 10(1.778 m) Weight:212 lb (96.163 kg) Outpatient Medications as of 01/07/19: 0.9 % sodium chloride (NACL 0.9%) solution blood sugar diagnostic (ONETOUCH VERIO) test strip perflutren lipid microspheres (DEFINMobile [employer] Media) 1.1 mg/mL inj ection (to be provided with echo procedure) cholecalciferol, Vitamin D3, (VITAMIN D3) 50,000 unit cap ca psule loperamide (IMODIUM) 2 mg cap(s) diphenoxylate-atropine (LOMOTIL) 2.5-0.025 mg per tablet metoprolol tartrate, short acting, (LOPRESSOR) 25 mg tablet cholestyramine (QUESTRAN) 4 gram packet dicyclomine (BENTYL) 10 mg capsule tamsulosin ER (FLOMAX) 0.4 mg cap oxyCODONE IR (ROXICODONE) 5 mg immediate release tablet uggcag-hgafonei-idahozs (CREON 24) 24,000-76,000 -120,000 un it cpDR ferrous sulfate 325 mg (65 mg iron) EC tablet COMPOUNDED PRESCRIPTION acetaminophen (TYLENOL) 325 mg tablet ondansetron (ZOFRAN) 8 mg tablet insulin aspart protamine-insulin aspart (NovoLOG 70-30) 10 0 unit/mL flexpen pantoprazole DR (PROTONIX) 20 mg tablet gabapentin (NEURONTIN) 300 mg capsule sertraline (ZOLOFT) 100 mg tablet nicotine polacrilex (NICORETTE) 2 mg gum levothyroxine (LEVOXYL) 137 mcg tablet flash glucose scanning reader (FREESTYLE JULIA 14 DAY READER ) [facility] [place] flash glucose sensor (FREESTYLE JULIA 14 DAY SENSOR) kit BIPAP lidocaine (LIDODERM) 5 % Mesalamine (PENTASA) 500 mg CR capsule rosuvastatin (CRESTOR) 5 mg tablet finasteride (PROSCAR) 5 mg tablet DULoxetine (CYMBALTA) 20 mg capsule melatonin 10 mg subl clopidogrel (PLAVIX) 75 mg tablet Wheel Chair diana OCTREOTIDE ACETATE (SANDOSTATIN INJECTION) CYANOCOBALAMIN, VITAMIN B-12, (B-12 COMPLIANCE INJECTION) Insulin Mackay, Disposable, (TIESHA PEN NEEDLE) 32 gauge x 5/ 32 ndle COMPOUNDED PRESCRIPTION Lancing Device [facility] [place] Admission/Clinic Administered Medications as of 01/07/19: NaCl 0.9% 10 mL NaCl 0.9% 20 mL NaCl 0.9% 10 mL NaCl 0.9% 20 mL NaCl 0.9% 10 mL NaCl 0.9% 20 mL NaCl 0.9% 10 mL NaCl 0.9% 20 mL octreotide 100 mcg injection (SandoSTATIN) melatonin 9 mg tab(s) psyllium 1 Packet (METAMUCIL) oxyCODONE IR 5 mg tab(s) (ROXICODONE) lidocaine 4 % 1 Patch (SALONPAS) lidocaine patch - REMOVE lidocaine - VERIFY PATCH ondansetron orally disintegrating 8 mg tab(s) (ZOFRAN ODT) dicyclomine 10 mg cap(s) (BENTYL) gabapentin 300 mg cap(s) (NEURONTIN) diphenoxylate-atropine 2.5-0.025 mg 1 tablet (LOMOTIL) loperamide 4 mg cap(s) (IMODIUM) rosuvastatin 5 mg tab(s) (CRESTOR) finasteride 5 mg tab(s) (PROSCAR) tamsulosin ER 0.4 mg cap(s) (FLOMAX) metoprolol tartrate (short acting) 25 mg tab(s) (LOPRESSOR) cholestyramine 4 g packet (QUESTRAN) insulin 75/25 lispro protamine/lispro units/mL 25 Units inje ction (mixed intermediate and rapid acting) (HumaLOG 75/25) ferrous sulfate 325 mg tab(s) clopidogrel 75 mg tab(s) (PLAVIX) pantoprazole DR 20 mg tab(s) (PROTONIX) sertraline 100 mg tab(s) (ZOLOFT) DULoxetine 20 mg cap(s) (CYMBALTA) levothyroxine 137 mcg tab(s) (SYNTHROID) NaCl 0.9% iv infusion dextrose 40 % 15 g glucagon 1 mg injection (GLUCAGEN) dextrose 50 % 12.5 g injection insulin 75/25 lispro protamine/lispro units/mL 35 Units inje ction (mixed intermediate and rapid acting) (HumaLOG 75/25) Mesalamine 1,000 mg cap(s) (PENTASA) Problem List: CAD (coronary artery disease) [I25.10] Carcinoid tumor [D3A.00] Exocrine pancreatic insufficiency [K86.81] Vitamin B12 deficiency [E53.8] 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, with long-term current use of insulin (HCC) [E11.42, Z79.4] Chronic diastolic heart failure (HCC) [I50.32] Acute renal failure superimposed on stage 3 chronic kidney d isease (HCC) [N17.9, N18.3] Crohn's disease of small intestine with intestinal obstruction (HCC) [K50.012] 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, I85.10] Hyperkalemia [E87.5] 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, Z93.2] CKD (chronic kidney disease) stage 3, GFR 30-59 ml/min (HCC) [N18.3] Dehydration [E86.0] LOR (acute kidney injury) (HCC) [N17.9] Hypomagnesemia [E83.42] Allergies: Lipitor [Atorvastatin Calcium] Zocor [Simvastatin] novacain [Other] Lescol [Fluvastatin Sodium] Date Verified: 01/07/19 Lab Values Lab Value Units Date High Low POTA* 4.1 mmol/L 01/07/2019 5.1 3.7 DANGELO* 30.1 % 01/07/2019 51.0 39.0 Progress Notes (DANGELO [facility]): Radha Mtz LPN, DEJUAN 01/06/2019 11:02 AM Signed Kalia Rivas (Dejuan) DEJUAN Mtz; Stephanie rivas LPN ? Yvon Garcia, my name is Dr. Lamas and I am a dental laboratory technician at [place]. We would like to set Mr. Leal up wit h IVF due to his high output ostomy. He will need 2L of NS 3x/week at the [facility]. He will also need a CBC/CMP/Mg/Phos every week. I spoke with Stephanie on the phone. I will give a written Rx as well with the patient and I have asked the [facility] physician to add to discharge med list. Thanks, Kalia Argekar Please call or email with any issues. [phone] Idris Mora MD 01/06/2019 11:10 AM Addendum Please schedule labs weekly and IV NSS 2 litre 3 x per week ( over 2 hours ) and replace electrolytes weekly Idris Mora MD Per Dr. Lamas, patient is to have this Fri-Fri -Friday until ostomy reversal 02/01/2019, with weekly CBC/CMP/MAG/PHOS. Stephanie Schrader LPN Previous Version Loida Pastor 01/06/2019 12:52 PM Signed Spoke with patient's and scheduled for 01/08/19. Will schedule additional appointments and give to them upon arrival. Loida Pastor 01/06/2019 4:25 PM Signed Balance of appointments scheduled. Loida Pastor Progress Notes ([facility]): Kaylee Hernandez RN, RN 01/05/2019 7:49 AM Signed TRANSITION CARE MANAGEMENT (TCM) FOLLOW-UP NOTE Summary: Hospital d/c 12/22 dehydration, LOR, High output ileostomy Readmission 01/04 dehydration Major Case Detective plan for next outreach: Chart reviewed. Name removed from Care Team d/t readmission No further follow up needed at this time Signature Kaylee Hernandez RN January 05, 2019 history physical on 2019-01-04 HISTORY HNO ID: [id number] Normal 01-04-2019 [place] PHYSICAL Author: [facility] Service: Hospital Medicine ([id number]) Author Type: Physician Refinery Operator Helper Crude Unit Type: HANDP Filed: 01/04/2019 9:31 PM Note Text: Attestation signed by Omkar Cain at 01/05/2019 7:37 AM I have reviewed the above plan of care and agree with it. Omkar Cain MD 01/05/19 SERVICE DATE: 01/04/2019 SERVICE TIME: 9:30 PM HOSPITAL MEDICINE HISTORY AND PHYSICAL PCP: ANALISA GARVEY MD NIGHT AND WEEKEND COVERAGE: Nights: Please contact pager [phone]. 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 The patient reports over the last few days he has been feeling dry and experiencing lightheadedness, disorientation, and profound w eakness which have accelerated quickly. He states this is secondary to sig nificant output from ileostomy that has been a chronic issues since i t was placed on November 23 of this year. He was recently admitted from -12/22 after experiencing a syncopal episode, was found to have LOR secondary to high ileostomy output requiring initial stay in ICU. He repo rts he has been consistently taking all medications started during last admission to assist with decreasing ostomy output. He recently started ta davonte Metamucil with little effect. He has felt dry since discharge a few weeks ago but symptoms acutely worsened today. He currently lives at home and with [facility] in place. He was supposed to start IV fluids today per [facility] b ut the needed supplies didn't arrive and he was too dehydrated to start an IV, therefor was told to go to ED. He is currently emptying the ostomy ev vi 1-2 hours, usually completely full. No noted changes in output consiste ncy, but does note color change in stool based on the food he eats. No rep orted CP, SOB, abdominal pain, N/V/D, or urinary symptoms. Hemodynamically stable in the ED. CBC with chronic normocyti c anemia, no leukocytosis or left shift. CMP with elevated Cr stable at b aseline, mildly elevated potassium at 5.4. No other labs or imaging o btained prior to admission. PAST MEDICAL HISTORY Diagnosis Date - Acute gastritis without mention of hemorrhage 10/24/2006 - Acute renal failure superimposed on stage 3 chronic kidney disease (HCC) - Anal fissure 05/17/2013 - Antiplatelet or antithrombotic long-term use 11/23/2018 - Arteriosclerosis, mesenteric artery (HCC) 09/24/2016 - Bladder cancer (HCC) Superficial bladder cancer, status post TURP AND mitomycin-C - BPH (benign prostatic hyperplasia) 10/03/2014 - Cancer (HCC) intestines and chest, but in remission as of 12-22-14 - Cancer of ilium (HCC) 12/27/2010 - Carcinoid syndrome (HCC) 04/24/2017 - Carcinoid tumor s/p removal and octreotide therapy - 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 - Central sleep apnea - Chronic pain 10/19/2015 - CKD (chronic kidney disease) stage 3, GFR 30-59 ml/min (HC C) bland UA, baseline Cr in high 1 range - Cognitive impairment 04/22/2014 MOCA (04/2014) - Colon stricture (HCC) 11/12/2018 - Coronary atherosclerosis of unspecified type of vessel, na tive or graft PCI - 1998 - Crohn's disease (HCC) 11/23/2018 - Depression 11/23/2018 - Diarrhea - Displacement of lumbar 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 thy - DUODENITIS - NO HEMORRHAGE 10/24/2006 - Enthesopathy of hip region 06/17/2008 - Esophageal reflux - ESOPHAGITIS REFLUX 10/24/2006 - Essential hypertension - Family history of ischemic heart disease 04/16/2016 - GASTRITIS ANTRAL( W/O Hemorrhage) 10/24/2006 - GERD (gastroesophageal reflux disease) GERD - History of bladder cancer 11/23/2018 - Hydrocele sac 10/17/2014 - Hypothyroidism - IBS (irritable bowel syndrome) 03/06/2010 - Impingement syndrome of right shoulder 03/01/2015 - Incisional hernia 08/31/2012 - Incomplete tear of right rotator cuff 08/01/2015 - Insomnia 11/24/2018 - Internal hemorrhoids without mention of complication - Intervertebral disc disorder with radiculopathy of lumbar region 05/28/2017 - Irritable bowel syndrome - Lipoma of other specified sites - Lumbago 06/17/2008 - Mesenteric mass - Mixed hyperlipidemia 01/31/2005 - GOMEZ (nonalcoholic steatohepatitis) cirrhosis on liver biopsy - Neuroendocrine malignancy (HCC) 10/17/2014 - Obesity (BMI 30-39.9) 04/16/2016 - Obesity, Class I, BMI 30-34.9 11/24/2018 - Obesity, Class I, BMI 30-34.9 12/17/2018 - ALEXIS (obstructive sleep apnea) DME [facility] - Oxygen order for 02 bleed in DME is [facility] - ALEXIS treated with BiPAP 06/07/2014 - Other and unspecified hyperlipidemia - PAD (peripheral artery disease) (HCC) - Pancreatic insufficiency - Peripheral vascular disease, unspecified (HCC) 01/31/2005 - Physical deconditioning 03/30/2018 - Post-op pain 11/23/2018 - Radiculopathy, lumbar region 10/28/2005 - S/P coronary artery stent placement 04/16/2016 - S/P primary angioplasty with coronary stent PCI - 1998 - Sciatica 11/08/2005 - 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 - 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 - 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 - Spermatocele 10/17/2014 - Spinal stenosis 10/28/2005 - Stroke (HCC) 2009 TIA-questionable diagnosis - Testalgia 10/03/2014 - TIA (transient ischemic attack) 03/06/2010 - Tinnitus, right 03/06/2010 - Type 2 diabetes mellitus with complication (HCC) 6 - Unspecified essential hypertension - Urinary hesitancy 04/22/2014 - Vitamin B12 deficiency - Vitamin D deficiency - Weakness of shoulder 11/01/2015 PAST SURGICAL HISTORY Procedure Laterality Date - APPENDECTOMY 1970 - ARTHROS SHLDR DX W/WO SYNV BX Right 09/06/15 Right shoulder diagnostic arthroscopy - BALLN ANGIOPLASTY PERC,FEM-POP 1997 - BALLN ANGIOPLASTY PERC,FEM-POP 09/24/06 - CATHETER ART SYS-1ST ORD, ABDOM, PELVIC, OR LOWER 1997 - CATHETER ART SYS-1ST ORD, ABDOM, PELVIC, OR LOWER 1997 with stent - CATHETER ART SYS-1ST ORD, ABDOM, PELVIC, OR LOWER 09/24/06 - COLONOSCOP W/ OR W/O BRSH SPEC 05/30/2004 Colonoscopy - COLONOSCOP W/ OR W/O BRSH SPEC 05/18/14 Colonoscopy - E[facility] SPE[facility] W/BX 10/24/06 Esophagiti,gastritis,duodenitis - EGD W/O OR W/BRUSH/WASH 10/26/1998 EGD - HEART SURGERY HX Stent 1995 - KNEE SCOPE,DIAGNOSTIC Right 2003 Arthroscopy, knee - LAP INC HERNIA REPAIR 09-29-12 - LAPAROSCOPIC CHOLEYCYSTECTOMY Cholecystectomy, lap - PAST SURGICAL HISTORY OF 2006 stent placement Both legs - PAST SURGICAL HISTORY OF 12-08-10 small bowel resection [facility] main - cancerious - PAST SURGICAL HISTORY OF 06/19/2015 Left eye cataract surgery - PERCATAN, EXTREMITY ARTERY 09/24/06 - REMOVAL OF TONSILS,<12 Y/O Tonsillectomy - REPAIR COMPL ROTATOR CUFF AVULSN,CHR Right 09/06/15 Subacromial decompression, rotator cuff repair, and labral d ebridement - REPAIR ING HERNIA,5+Y/O,REDUCIBL Hernia repair, inguinal lt FAMILY HISTORY Problem Relation Age of Onset - Diabetes Mother - other (Uterine cancer) Mother - Heart Father [place] - Hypertension Father - Heart Sister 60age - Stroke Sister - Diabetes Sister 65age - other (fibromyalgia) Sister x 4 , 2 sisters with kidney disease - Diabetes Sister oral meds Social History Tobacco Use - Smoking status: Former Smoker Packs/day: 1.00 Years: 35.00 Pack years: 35.00 Types: Cigarettes Start date: 02/17/1971 Last attempt to quit: 02/17/2006 Years since quittin.8 - Smokeless tobacco: Never Used Substance Use Topics - Alcohol use: No Alcohol/week: 1.7 standard drinks Frequency: Never Drinks per session: Patient refused Binge frequency: Never - Drug use: No Medications: Reviewed Allergies: ALLERGIES Allergen Reactions - Lipitor [Atorvastat* Intolerance myalgias - Zocor [Simvastatin] Intolerance myalgias - Novacain [Other] Intolerance Headache when it wears off - Lescol [Fluvastatin* Intolerance myalgia Review of Systems: GENERAL: (+) weakness/fatigue. No weight loss or fevers/chil ls. HEENT: Negative for frequent or significant headaches, No ch anges in hearing or vision, no nose bleeds or other nasal problems NECK: Negative for lumps, goiter, pain and significant neck swelling RESPIRATORY: Negative for cough, hemoptysis, wheezing, COPD, dyspnea or shortness of breath CARDIOVASCULAR: Negative for chest pain, leg swelling, hyper tension, CHF or palpitations GI: (+) ileostomy with high output. No abdominal pain, nause a, vomiting, or diarrhea : No history of dysuria, frequency or incontinence MUSCULOSKELETAL: Negative for joint pain or swelling, back p ain or muscle pain SKIN: Negative for lesions, rash, and itching PSYCH: Negative for sleep disturbance, mood disorder and rec ent psychosocial stressors HEMATOLOGY/LYMPHOLOGY: Negative for prolonged bleeding, brui sing easily or swollen nodes ENDOCRINE: Negative for cold or heat intolerance, polyuria, polydipsia and goiter NEURO: No history of headaches, syncope, paralysis, seizures or tremors OBJECTIVE: PHYSICAL EXAM BP 138/69 Pulse 65 Temp (Src) 97.8 (Oral) Resp 12 Ht 5' 10 (1.78m) Wt 212 lb (96.2kg) SpO2 100% BMI 30.42 kg/(m2) . O2 Therapy: Room Air Physical Exam Performed: GENERAL: Alert, no distress, cooperative SKIN: Skin color, texture, turgor normal. No rashes or lesio ns. HEAD/SINUSES: AT/NC. No significant findings EYES: PERRLA, EOMI. Anicteric sclera. OROPHARYNX: MM dry. No thrush or intraoral lesions. LUNGS: Lungs clear to auscultation, Good diaphragmatic excur seth CARDIAC: RRR. Normal S1 and S2; no rubs, murmurs, or gallops ABDOMEN:(+) ostomy present to the right mid-abdomen with a s oft reddish output consistent with tomato sauce with a well-healed verti veronika mid-abdominal incision without any dehiscence or hernia. Abd omen otherwise soft, non-tender, BS normal. No masses or organomegaly EXTREMITIES: Extremities normal, no deformities, edema, club erick or skin discoloration. Good capillary refill., No ulcers. No calf te nderness/edema bilaterally. NEURO: AANDOx3. Grossly normal cognition and motor function. No focal neurological deficits. PULSES: 2+ radial, 2+ posterial tibial, 2+ dorsalis pedis, 2 + carotid Lines, Drains, and Airways Line Peripheral 01/04/19 1834 Admission to Hospital Short Left An tecubital 20 Gauge less than 1 day Reviewed lines, drains, AND airways. Need to be continued fo r IV access. Diagnostic tests reviewed: Most recent labs and imaging resu lts Assessment AND Plan Active Hospital Problems as of 01/04/2019 Noted - Resolved High output ileostomy ([facility]) 12/17/2018 - Present Current Assessment AND Plan Assessment/PLAN: Presenting with profound weakness/lethargy secondary to dehy dration from chronically high output ileostomy - recent admission from -12/22 with similar complaints Ostomy noted to the right mid abdomen with soft reddish outp ut consistent with tomato sauce (patient's last meal) Continue current bowel regimen IV fluids GI consult - appreciate recs Monitor AM labs, VS Chronic diastolic heart failure ([facility]) 05/03/2016 - Present Current Assessment AND Plan Assessment/PLAN: Euvolemic, no signs of FVO Monitor for overload secondary to IV hydration Continue current medications 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, with long-term current use of insulin ([facility]) 12/12/2015 - Present Current Assessment AND Plan Assessment/PLAN: Continue Novolin 35U with breakfast and 25U with dinner Regular Accuchecks Carb controlled diet Hypoglycemic protocol CAD (coronary artery disease) Unknown - Present Current Assessment AND Plan Assessment/PLAN: Stable, no complaints of exertional CP or SOB Continue current medications Monitor Crohn's disease of small intestine with intestinal obstructi on ([facility]) 04/02/2017 - Present Current Assessment AND Plan Assessment/PLAN: Hx Crohn's disease s/p resection of neoterminal ileum and il eocolonic anastomosis with diverting loop ileostomy 11/23/18 on Pentasa Complicated with high outputs ileostomy Continue current management for high output above GI consult - appreciate recs Esophageal varices in cirrhosis ([facility]) 12/09/2017 - Present Current Assessment AND Plan Assessment/PLAN: History of GOMEZ cirrhosis complicated by esophageal varices, anemia, thrombocytopenia, portal hypertensive gastropathy - MELD 14 Stable at this time Continue current management Carcinoid tumor 12/27/2010 - Present Current Assessment AND Plan Assessment/PLAN: S/p bowel resection ~2010 Monthly octreotide injections No sx/sx of carcinoid syndrome CKD (chronic kidney disease) stage 3, GFR 30-59 ml/min (HCC) 01/04/2019 - Present Current Assessment AND Plan Assessment/PLAN: Cr mildly elevated at 2.3 Potassium 5.4 IV hydration per above Repeat potassium Monitor renal function Exocrine pancreatic insufficiency Unknown - Present Current Assessment AND Plan Assessment/PLAN: Continue Creon Hyperkalemia 12/17/2018 - Present Current Assessment AND Plan Assessment/PLAN: Suspect secondary to high output ileostomy IV hydration Repeat potassium Monitor Medication and Non-Pharmacologic VTE Prophylaxis/Anticoagula nts Anticoagulant AND Antiplatelet Medications (From admission, onward) Start Dose Route Frequency Ordered Stop 01/04/192199 clopidogrel 75 mg tab(s) (PLAVIX) 75 mg ORAL DAILY 01/04/192129 -- VTE Prophylaxis: VTE prophylaxis appropriate SIGNATURE: Nenita Royal PA-C PATIENT NAME: Venkata Leal DATE: January 04, 2019 TIME: 9:30 PM PAGER/CONTACT #: [id number] hepatic functn panel on 2019-01-04 Albumin [Mass/Vol] 4.1 3.9-4.9 g/dL Normal 01-04-2019 [facility] ([id number]) Comment: Performed By: #### CBCDIF, P T, PTT, CK, CMP, LIPA, MG1 #### [facility] [address] [place] [address] ALP [Catalytic activity/Vol] 179 38-113 U/L High 1 03-06-2018 [facility] ([id number]) Comment: Performed By: #### CBCDIF, P T, PTT, CK, CMP, LIPA, MG1 #### [facility] [address] [place] [address] ALT [Catalytic activity/Vol] 48 10-54 U/L Normal 1 03-06-2018 [facility] ([id number]) Comment: Performed By: #### CBCDIF, P T, PTT, CK, CMP, LIPA, MG1 #### [facility] [address] [place] [phone] AST [Catalytic activity/Vol] 62 14-40 U/L High 1 03-06-2018 [facility] ([id number]) Comment: Performed By: #### CBCDIF, P T, PTT, CK, CMP, LIPA, MG1 #### [facility] [address] [place] [phone] Bilirubin [Mass/Vol] 0.5 0.2-1.3 mg/dL Normal 9 [facility] ([id number]) Comment: Performed By: #### CBCDIF, P T, PTT, CK, CMP, LIPA, MG1 #### [facility] [address] [facility] [phone] Bilirubin,Conjugated <0.2 <0.2 Normal 9 [facility] ([id number]) Comment: Performed By: #### CBCDIF, P T, PTT, CK, CMP, LIPA, MG1 #### [facility] [address] [facility] [phone] Protein [Mass/Vol] 7.0 6.3-8.0 g/dL Normal 01-04-2019 [facility] ([id number]) Comment: Performed By: #### CBCDIF, P T, PTT, CK, CMP, LIPA, MG1 #### [facility] [address] [facility] [phone] ed prov note on 10-28-17 ED PROV HNO ID: [id number] Normal 01-04-2019 [place] NOTE Author: Karla Morales MD [facility] Service: Emergency Medicine ([id number]) Author Type: Physician Type: ED Provider Notes Filed: 01/04/2019 11:12 PM Note Text: ED Provider Note Patient Name: Venkata Leal SERVICE DATE: 01/04/19 History Patient presents with: Dehydration Patient presents for weakness and dizziness, concern for deh ydration. Patient had surgery in November resulting in creation of an i leostomy. Patient has been having issues with high output from the ost leena with resulting dehydration. Patient was admitted 2 weeks ago for same complaint. Patient is getting up every 2 hours to hydrate bu t the more he hydrates the more output he has from his ostomy. Today he be ashli feeling weak and dizzy, similar to how he felt prior to a syncopal e pisode that occurred resulting in his hospitalization. Patient is curren tly denying any fever, chest pain, shortness of breath, but states he al ways has some abdominal discomfort, nothing acute. Patient is scheduled fo r ostomy reversal on Nakul 16. PAST MEDICAL HISTORY Diagnosis Date - Acute gastritis without mention of hemorrhage 10/24/2006 - Acute renal failure superimposed on stage 3 chronic kidney disease (HCC) - Anal fissure 05/17/2013 - Antiplatelet or antithrombotic long-term use 11/23/2018 - Arteriosclerosis, mesenteric artery (HCC) 09/24/2016 - Bladder cancer (HCC) Superficial bladder cancer, status post TURP AND mitomycin-C - BPH (benign prostatic hyperplasia) 10/03/2014 - Cancer (HCC) intestines and chest, but in remission as of 12-22-14 - Cancer of ilium (HCC) 12/27/2010 - Carcinoid syndrome (HCC) 04/24/2017 - Carcinoid tumor s/p removal and octreotide therapy - 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 - Central sleep apnea - Chronic pain 10/19/2015 - CKD (chronic kidney disease) stage 3, GFR 30-59 ml/min (HC C) bland UA, baseline Cr in high 1 range - Cognitive impairment 04/22/2014 MOCA (04/2014) - Colon stricture (HCC) 11/12/2018 - Coronary atherosclerosis of unspecified type of vessel, na tive or graft PCI - 1998 - Crohn's disease (HCC) 11/23/2018 - Depression 11/23/2018 - Diarrhea - Displacement of lumbar 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 thy - DUODENITIS - NO HEMORRHAGE 10/24/2006 - Enthesopathy of hip region 06/17/2008 - Esophageal reflux - ESOPHAGITIS REFLUX 10/24/2006 - Essential hypertension - Family history of ischemic heart disease 04/16/2016 - GASTRITIS ANTRAL( W/O Hemorrhage) 10/24/2006 - GERD (gastroesophageal reflux disease) GERD - History of bladder cancer 11/23/2018 - Hydrocele sac 10/17/2014 - Hypothyroidism - IBS (irritable bowel syndrome) 03/06/2010 - Impingement syndrome of right shoulder 03/01/2015 - Incisional hernia 08/31/2012 - Incomplete tear of right rotator cuff 08/01/2015 - Insomnia 11/24/2018 - Internal hemorrhoids without mention of complication - Intervertebral disc disorder with radiculopathy of lumbar region 05/28/2017 - Irritable bowel syndrome - Lipoma of other specified sites - Lumbago 06/17/2008 - Mesenteric mass - Mixed hyperlipidemia 01/31/2005 - GOMEZ (nonalcoholic steatohepatitis) cirrhosis on liver biopsy - Neuroendocrine malignancy (HCC) 10/17/2014 - Obesity (BMI 30-39.9) 04/16/2016 - Obesity, Class I, BMI 30-34.9 11/24/2018 - Obesity, Class I, BMI 30-34.9 12/17/2018 - ALEXIS (obstructive sleep apnea) DME [facility] - Oxygen order for 02 bleed in DME is [facility] - ALEXIS treated with BiPAP 06/07/2014 - Other and unspecified hyperlipidemia - PAD (peripheral artery disease) (HCC) - Pancreatic insufficiency - Peripheral vascular disease, unspecified (HCC) 01/31/2005 - Physical deconditioning 03/30/2018 - Post-op pain 11/23/2018 - Radiculopathy, lumbar region 10/28/2005 - S/P coronary artery stent placement 04/16/2016 - S/P primary angioplasty with coronary stent PCI - 1998 - Sciatica 11/08/2005 - 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 - 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 - 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 - Spermatocele 10/17/2014 - Spinal stenosis 10/28/2005 - Stroke (HCC) 2008 TIA-questionable diagnosis - Testalgia 10/03/2014 - TIA (transient ischemic attack) 03/06/2010 - Tinnitus, right 03/06/2010 - Type 2 diabetes mellitus with complication (HCC) 6 - Unspecified essential hypertension - Urinary hesitancy 04/22/2014 - Vitamin B12 deficiency - Vitamin D deficiency - Weakness of shoulder 11/01/2015 PAST SURGICAL HISTORY Procedure Laterality Date - APPENDECTOMY 1970 - ARTHROS SHLDR DX W/WO SYNV BX Right 09/06/15 Right shoulder diagnostic arthroscopy - BALLN ANGIOPLASTY PERC,FEM-POP 1997 - BALLN ANGIOPLASTY PERC,FEM-POP 09/24/06 - CATHETER ART SYS-1ST ORD, ABDOM, PELVIC, OR LOWER 1997 - CATHETER ART SYS-1ST ORD, ABDOM, PELVIC, OR LOWER 1997 with stent - CATHETER ART SYS-1ST ORD, ABDOM, PELVIC, OR LOWER 09/24/06 - COLONOSCOP W/ OR W/O BRSH SPEC 05/30/2004 Colonoscopy - COLONOSCOP W/ OR W/O BRSH SPEC 05/18/14 Colonoscopy - EGD W/O [facility] SPECIMEN W/BX 10/24/06 Esophagiti,gastritis,duodenitis - EGD W/O OR W/BRUSH/WASH 10/26/1998 EGD - HEART SURGERY HX Stent 1995 - KNEE SCOPE,DIAGNOSTIC Right 2003 Arthroscopy, knee - LAP INC HERNIA REPAIR 09-29-12 - LAPAROSCOPIC CHOLEYCYSTECTOMY Cholecystectomy, lap - PAST SURGICAL HISTORY OF 2006 stent placement Both legs - PAST SURGICAL HISTORY OF 12-08-10 small bowel resection [facility] main - cancerious - PAST SURGICAL HISTORY OF 06/19/2015 Left eye cataract surgery - PERCATAN, EXTREMITY ARTERY 09/24/06 - REMOVAL OF TONSILS,<12 Y/O Tonsillectomy - REPAIR COMPL ROTATOR CUFF AVULSN,CHR Right 09/06/15 Subacromial decompression, rotator cuff repair, and labral d ebridement - REPAIR ING HERNIA,5+Y/O,REDUCIBL Hernia repair, inguinal lt FAMILY HISTORY Problem Relation Age of Onset - Diabetes Mother - other (Uterine cancer) Mother - Heart Father [place] - Hypertension Father - Heart Sister 60age - Stroke Sister - Diabetes Sister 65age - other (fibromyalgia) Sister x 4 , 2 sisters with kidney disease - Diabetes Sister oral meds Social History Tobacco Use - Smoking status: Former Smoker Packs/day: 1.00 Years: 35.00 Pack years: 35.00 Types: Cigarettes Start date: 02/17/1971 Last attempt to quit: 02/17/2006 Years since quittin.8 - Smokeless tobacco: Never Used Substance and Sexual Activity - Alcohol use: No Alcohol/week: 1.7 standard drinks Frequency: Never Drinks per session: Patient refused Binge frequency: Never - Drug use: No - Sexual activity: Yes Partners: Female ALLERGIES Allergen Reactions - Lipitor [Atorvastat* Intolerance myalgias - Zocor [Simvastatin] Intolerance myalgias - Novacain [Other] Intolerance Headache when it wears off - Lescol [Fluvastatin* Intolerance myalgia Review of Systems Constitutional: Positive for appetite change and fatigue. Ne gative for fever. All other systems negative except as documented in the HPI. HENT: Negative for congestion, rhinorrhea and sore throat. Eyes: Negative for pain and discharge. Respiratory: Negative for cough and shortness of breath. Cardiovascular: Negative for chest pain and palpitations. Gastrointestinal: Positive for abdominal pain. Negative for constipation, diarrhea, nausea and vomiting. Genitourinary: Positive for decreased urine volume. Negative for dysuria, frequency and urgency. Musculoskeletal: Negative for arthralgias, back pain, myalgi as and neck pain. Skin: Negative for pallor and rash. Neurological: Positive for dizziness, weakness and light-hea dedness. Negative for headaches. Psychiatric/Behavioral: Negative. Physical Exam BP 113/75 Pulse 69 Temp (Src) 98.1 (Oral) Resp 18 Ht 5' 10 (1.78m) Wt 212 lb (96.2kg) SpO2 100% BMI 30.42 kg/(m2) . O2 Therapy: Room Air Physical Exam Vitals signs and nursing note reviewed. Exam conducted with a commercial fisher present. Constitutional: General: He is in acute distress. Appearance: He is well-developed. He is ill-appearing. HENT: Head: Normocephalic and atraumatic. Mouth/Throat: Mouth: Mucous membranes are dry. Eyes: Conjunctiva/sclera: Conjunctivae normal. Pupils: Pupils are equal, round, and reactive to light. Neck: Musculoskeletal: Normal range of motion and neck supple. Cardiovascular: Rate and Rhythm: Normal rate and regular rhythm. Heart sounds: Normal heart sounds. No murmur. Pulmonary: Effort: Pulmonary effort is normal. No respiratory distress. Breath sounds: Normal breath sounds. Abdominal: General: Bowel sounds are normal. There is no distension. Palpations: Abdomen is soft. Tenderness: There is tenderness (Diffuse). There is no guard ing or rebound. Comments: Ostomy in the right mid abdomen with soft reddish output consistent with tomato sauce (patient's last meal), well-hea led vertical incision without any dehiscence or hernia Musculoskeletal: Normal range of motion. General: No tenderness. Skin: General: Skin is warm and dry. Findings: No rash. Neurological: Mental Status: He is alert and oriented to person, place, an d time. Cranial Nerves: No cranial nerve deficit. Sensory: No sensory deficit. Diagnostic Testing ED Labs Ordered and Reviewed BASIC METABOLIC PNL - Abnormal; Notable for the following co mponents: Result Value Ref Range Glucose 245 (*) 74 - 99 mg/dL Creatinine 2.36 (*) 0.73 - 1.22 mg/dL Potassium 5.4 (*) 3.7 - 5.1 mmol/L All other components within normal limits CBC + DIFF - Abnormal; Notable for the following components: RBC 3.67 (*) 4.20 - 6.00 m/uL Hemoglobin 11.7 (*) 13.0 - 17.0 g/dL Hematocrit 35.8 (*) 39.0 - 51.0 % RDW-CV 16.0 (*) 11.5 - 15.0 % Platelet Count 141 (*) 150 - 400 k/uL Abs Lymph 0.68 (*) 1.00 - 4.00 k/uL All other components within normal limits No orders to display Procedures ED Course / Clinical Impression ED Course as of Jan 04 2309 Karla Morales's Documentation Mon Jan 04, 20192005 HR 67, normal sinus rhythm, normal NH and QRS duration, normal QTc interval, no fascicular, bundle branch or AV block. No ST or T-wave changes. No STEMI. No hyperacute T waves concerning for hype rkalemia ECG COMPLETE Clinical Impressions as of Jan 04 [address] (HCC) Hyperkalemia High output ileostomy (HCC) Chronic diastolic heart failure (HCC) 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, with long-term current use of insulin (HCC) Coronary artery disease involving gakona coronary artery of gakona heart without angina pectoris Crohn's disease of small intestine with intestinal obstructi on (HCC) 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) Carcinoid tumor, unspecified site, unspecified whether malig nant CKD (chronic kidney disease) stage 3, GFR 30-59 ml/min (HCC) Exocrine pancreatic insufficiency MDM / Disposition / Plan Patient presents with dizziness and weakness, with high outp ut from his ileostomy concerning for dehydration. Patient's workup is co ncerning for dehydration, with increase in his creatinine above baseline. Patient has mild hyperkalemia without any EKG changes, and no medication therapy initiated, as it will likely improve with hydration. No leuk ocytosis. Patient was given IV fluids for treatment of dehydration. Jose sharma will require admission for further management of symptomatic dehy dration secondary to high output ileostomy with renal insufficiency and mild hyperkalemia. SIGNATURE: MD Karla Brito MD 01/04/19 2312 ed note on ED NOTE HNO ID: [id number] Normal 01-04-2019 [facility] ([id number]) Author: Yony SalinasRn) HITESH Martini Service: Nursing Author Type: Registered Nurse Type: ED Notes Filed: 01/04/2019 9:08 PM Note Text: Pt is being admitted to [facility] in stable condiiton, report gi jesus to Estela GOMEZ. ED NOTE HNO ID: [id number] Normal 01-04-2019 [facility] ([id number]) Author: Pamela (Rn) HITESH Vásquez Service: Nursing Author Type: Registered Nurse Type: ED Notes Filed: 01/04/2019 6:24 PM Note Text: Patient presents with weakness, pain in neck and shoulders. He was supposed to get fluids today from home health nurse but they did not have the supplies. He was told to come here for fluids. ecg complete on 201 10-28-17 ECG COMPLETE NAME : VENKATA LEAL Normal 2018 [facility] PID : [id number] ([id number]) : 1950 Gender : Male Race : ORD : [id number] Procedure Date : Jan 04 2019 19:45:56 Edit Date : Jan 23 2019 11:46:53 Diagnosis:NORMAL SINUS RHYTHM NORMAL ECG 1952 no STEMI Confirmed by LESLIE MORALES MD ([id number]), general expeditor JENNIFER ADAMS ([id number]) on 01/23/2019 11:46:52 AM Systolic BP : 127 mmHg Diastolic BP : 68 mmHg Ventricular Rate : 67 BPM Atrial Rate : 67 BPM P-R Interval : 152 ms QRS Duration : 90 ms Q-T Interval : 396 ms QTC Calculation(Bazett) : 418 ms P Drummond : 57 degrees R Drummond : 87 degrees T Drummond : 69 degrees Test Reason : Chest Pain Location : 1 : ER 05 Overread By : KARLA MORALES MD Edited By : JENNIFER ADAMS Referred By : System,System Acquired by : System,System cbc and differential on 2019-01-04 Abs Baso 0.04 <0.11 k/uL Normal 01-04-2019 [facility] ([id number]) Comment: Performed By: #### CBCDIF, P T, PTT, CK, CMP, LIPA, MG1 #### [facility] [address] [facility] [phone] Abs Zapata 0.51 <0.87 k/uL Normal 01-04-2019 [facility] ([id number]) Comment: Performed By: #### CBCDIF, P T, PTT, CK, CMP, LIPA, MG1 #### [facility] [address] [place] [address] Abs Neut 3.32 1.45-7.50 k/uL Normal 01-04-2019 [facility] ([id number]) Comment: Performed By: #### CBCDIF, P T, PTT, CK, CMP, LIPA, MG1 #### [facility] [address] [place] [address] Basophils/100 WBC (Bld) 0.8 % Normal 2018 [facility] ([id number]) Comment: Performed By: #### CBCDIF, P T, PTT, CK, CMP, LIPA, MG1 #### [facility] [address] [place] [address] Eosinophils (Bld) [#/Vol] 0.18 <0.46 k/uL Normal 12-18 [facility] (76444) Comment: Performed By: #### CBCDIF, P T, PTT, CK, CMP, LIPA, MG1 #### [facility] [address] [place] [address] Eosinophils/100 WBC (Bld) 3.8 % Normal 12-18 [facility] (85151) Comment: Performed By: #### CBCDIF, P T, PTT, CK, CMP, LIPA, MG1 #### [facility] [address] [place] [address] Erythrocyte distribution 16.0 11.5-15.0 % High 01-04 [facility] (56549) width (RBC) [Ratio] Comment: Performed By: #### CBCDIF, P T, PTT, CK, CMP, LIPA, MG1 #### [facility] [address] [place] [address] Hematocrit (Bld) [Volume 35.8 39.0-51.0 % Low 01-04 [facility] ([id number]) fraction] Comment: Performed By: #### CBCDIF, P T, PTT, CK, CMP, LIPA, MG1 #### [facility] [address] [place] [address] Hemoglobin (Bld) 11.7 13.0-17.0 g/dL Low 01-04-2019 [facility] ([id number]) [Mass/Vol] Comment: Performed By: #### CBCDIF, P T, PTT, CK, CMP, LIPA, MG1 #### [facility] [address] [place], [place] [phone] Lymphocytes (Bld) [#/Vol] 0.68 1.00-4.00 k/uL Low 12-18 [facility] (76322) Comment: Performed By: #### CBCDIF, P T, PTT, CK, CMP, LIPA, MG1 #### [facility] [address] [place] [address] Lymphocytes/100 WBC (Bld) 14.4 % Normal 12-18 [facility] (29678) Comment: Performed By: #### CBCDIF, P T, PTT, CK, CMP, LIPA, MG1 #### [facility] [address] [place], [place] [phone] MCH (RBC) [Entitic mass] 31.9 26.0-34.0 pG Normal 01-04 [facility] (60507) Comment: Performed By: #### CBCDIF, P T, PTT, CK, CMP, LIPA, MG1 #### [facility] [address] [place] [address] MCHC (RBC) [Mass/Vol] 32.7 30.5-36.0 g/dL Normal 01-05-20 [facility] (81819) Comment: Performed By: #### CBCDIF, P T, PTT, CK, CMP, LIPA, MG1 #### [facility] [address] [place], [place] [phone] MCV (RBC) [Entitic vol] 97.5 80.0-100.0 fL Normal 01-04 [facility] (30086) Comment: Performed By: #### CBCDIF, P T, PTT, CK, CMP, LIPA, MG1 #### [facility] [address] [facility] [phone] Monocytes/100 WBC (Bld) 10.8 % Normal 2018 [facility] (40342) Comment: Performed By: #### CBCDIF, P T, PTT, CK, CMP, LIPA, MG1 #### [facility] [address] [facility] [phone] Neutrophils/100 WBC (Bld) 70.2 % Normal 12-18 [facility] (71816) Comment: Performed By: #### CBCDIF, P T, PTT, CK, CMP, LIPA, MG1 #### [facility] [address] [facility] [phone] Platelet mean volume (Bld) 12.5 9.0-12.7 fL Normal [facility] (92453) [Entitic vol] Comment: Performed By: #### CBCDIF, P T, PTT, CK, CMP, LIPA, MG1 #### [facility] [address] [facility] [phone] Platelets (Bld) [#/Vol] 141 150-400 k/uL Low 2018 [facility] (05732) Comment: Performed By: #### CBCDIF, P T, PTT, CK, CMP, LIPA, MG1 #### [facility] [address] [place] [address] RBC (Bld) [#/Vol] 3.67 4.20-6.00 m/uL Low 01-04-2019 [facility] (81354) Comment: Performed By: #### CBCDIF, P T, PTT, CK, CMP, LIPA, MG1 #### [facility] [address] [place] [address] WBC (Bld) [#/Vol] 4.73 3.70-11.00 k/uL Normal 01-04-2019 [facility] (42619) Comment: Performed By: #### CBCDIF, P T, PTT, CK, CMP, LIPA, MG1 #### [facility] [address] [facility] [phone] basic metabolic panl on 2019-01-04 Anion gap [Moles/Vol] 14 9-18 mmol/L Normal 01-05-20 [facility] (75627) Comment: Performed By: #### CBCDIF, P T, PTT, CK, CMP, LIPA, MG1 #### [facility] [address] [place] [address] Calcium [Mass/Vol] 10.2 8.5-10.2 mg/dL Normal 01-04-2019 [facility] (97725) Comment: Performed By: #### CBCDIF, P T, PTT, CK, CMP, LIPA, MG1 #### [facility] [address] [facility] [phone] Chloride [Moles/Vol] 99 97-105 mmol/L Normal [facility] (22308) Comment: Performed By: #### CBCDIF, P T, PTT, CK, CMP, LIPA, MG1 #### [facility] [address] [place] [address] CO2 [Moles/Vol] 24 22-30 mmol/L Normal 01-04-2019 [facility] (69810) Comment: Performed By: #### CBCDIF, P T, PTT, CK, CMP, LIPA, MG1 #### [facility] [address] [place] [address] Creatinine [Mass/Vol] 2.36 0.73-1.22 mg/dL High 01-05-20 [facility] (35800) Comment: Performed By: #### CBCDIF, P T, PTT, CK, CMP, LIPA, MG1 #### [facility] [address] [place] [address] eGFR- Amer. 33 Normal 01-04-2019 [facility] (84984) Comment: Performed By: #### CBCDIF, P T, PTT, CK, CMP, LIPA, MG1 #### [facility] [address] [place] [address] GFR/1.73 sq M predicted among 28 . Normal 01-04-2019 [facility] (93350) non-blacks MDRD (S/P/Bld) [Vol rate/Area] Comment: Result Comment: eGFR (Estima pratik GFR) Units of measure: mL/min/1.73 meters squared eGFR is derived from the ree xpressed MDRD Study equation using the following parameters: serum creatinine, age, gender and race. The creatinine assay has been calibrated to be traceable to IDMS. An eGFR <60 mL/min/1.73m2 fo r >3 months is consistent with chronic kidney disease. Refer to KDOQI guidelines for clinical interpretation. In patients with unstable re nal function, e.g. those with acute kidney injury, the eGFR may not accurately reflect actual GFR. Performed By: #### CBCDIF, P T, PTT, CK, CMP, LIPA, MG1 #### [facility] [address] [facility] [phone] Glucose [Mass/Vol] 245 74-99 mg/dL High 01-04-2019 [facility] (38263) Comment: Result Comment: The [place] Diabetes Association (ADA) provides guidance for cutoff values for fasting glucose and random glucose. The ADA defines fasting as no caloric intake for at least 8 hours. Fas ting plasma glucose results between 100 to 125 mg/dL indicate increased risk for diabetes (prediabetes). Fasting plasma glucose resul ts greater than or equal to 126 mg/dL meet the criteria for diagnosis of diabetes. In the absence of unequivocal hyperglycemia, results should be confirmed by repeat testing. In a patient with classic s ymptoms of hyperglycemia or hyperglycemic crisis, random plasma glucose results greater than or equal to 200 mg/dL meet the criteria for diagnosis of diabetes. Reference: Standards of [facility] Care in Diabetes 2016, [place] Diabetes Association. Diabetes Care. 2016.39(Suppl 1). Performed By: #### CBCDIF, P T, PTT, CK, CMP, LIPA, MG1 #### [facility] [address] [facility] [phone] Potassium [Moles/Vol] 5.4 3.7-5.1 mmol/L High 01-05-20 [facility] (78759) Comment: Performed By: #### CBCDIF, P T, PTT, CK, CMP, LIPA, MG1 #### [facility] [address] [facility] [phone] Sodium [Moles/Vol] 137 136-144 mmol/L Normal 01-04-2019 [facility] (08478) Comment: Performed By: #### CBCDIF, P T, PTT, CK, CMP, LIPA, MG1 #### [facility] [address] [facility] [phone] Urea nitrogen [Mass/Vol] 23 9-24 mg/dL Normal 01-04 [facility] (07912) Comment: Performed By: #### CBCDIF, P T, PTT, CK, CMP, LIPA, MG1 #### [facility] [address] [facility] [phone] obsolete on 2018-12 OBSOLETE Normal 12-31-2018 [facility] (52665) obsolete on 2018-12 OBSOLETE Normal 12-30-2018 [facility] (12824) tsh on 2018-12-29 TSH Qn 8.140 0.270-4.200 uU/mL High 12-29-2018 [facility] (17388) Comment: Performed By: #### T3, FT4, TSH, ACTH, COR ####[facility] [place], [place] [phone] t3 on 2018-12-29 T3 84 79-165 ng/dL Normal 12-29-2018 [facility] (00024) Comment: Performed By: #### T3, FT4, TSH, ACTH, COR ####[facility] [address] [place], [place] [phone] phosphorus on 12-29 Phosphate [Mass/Vol] 3.6 2.7-4.8 mg/dL Normal 9 [facility] (38811) Comment: Performed By: #### PHOS #### [facility], [place] [phone] magnesium on 2018-02 Magnesium [Mass/Vol] 1.3 1.7-2.3 mg/dL Low 9 [facility] (41329) hosp on 2018-12-29 HOSP Normal 12-29-2018 [facility] (69776) hemoglobin a1c on 2 HbA1c (Bld) [Mass fraction] 5.8 4.3-5.6 % High [facility] (86837) Comment: Result Comment: [place] Nereida betes Association guidelines indicate that patients with HgbA1c in the range 5.7-6.4% are at increased risk for development of diabetes, and intervention by lifestyle modification may be beneficial. HgbA1c greater o r equal to 6.5% is considered diagnostic of diabetes. Performed By: #### HBA1C ### [address] [phone] HbA1c (Bld) [Mass fraction] 120 mg/dL Normal [facility] (06773) Comment: Result Comment: eAG: (Estima pratik average glucose) is a calculated value from HgbA1c and is mechanical service representative of the average blood glucose level in the last 2-3 month period. Performed By: #### HBA1C ### [address] [phone] free t4 on Free T4 [Mass/Vol] 0.9 0.9-1.7 ng/dL Normal 12-29-2018 [facility] (16097) Comment: Performed By: #### T3, FT4, TSH, ACTH, COR ####[address] [phone] cortisol on 2018-12 Cortisol 22.2 ug/dL Normal 12-29-2018 [facility] (69647) Comment: Result Comment: Cortisol Ref erence Range: AM = 5.3-22.5, PM = 3.4-16.8 Performed By: #### T3, FT4, TSH, ACTH, COR ####[address] [phone] comp metabolic panel on 2018-12-29 Albumin [Mass/Vol] 4.4 3.9-4.9 g/dL Normal 12-29-2018 [facility] (71238) ALP [Catalytic 181 38-113 U/L High 12-29-2018 [facility] activity/Vol] [facility] and (11568) ALT [Catalytic 18 10-54 U/L Normal 12-29-2018 [facility] activity/Vol] [facility] and (26987) Anion gap [Moles/Vol] 15 9-18 mmol/L Normal 12-30-[address] [facility] (93263) AST [Catalytic 37 14-40 U/L Normal 12-29-2018 [facility] activity/Vol] [facility] and (18219) Bilirubin [Mass/Vol] 0.6 0.2-1.3 mg/dL Normal 9 [facility] (52469) Calcium [Mass/Vol] 10.2 8.5-10.2 mg/dL Normal 12-29-2018 [facility] (40076) Chloride [Moles/Vol] 102 97-105 mmol/L Normal 9 [facility] (42185) CO2 [Moles/Vol] 20 22-30 mmol/L Low 12-29-2018 [facility] (88296) Creatinine [Mass/Vol] 2.18 0.73-1.22 mg/dL High 12-30-[address] [facility] (95811) eGFR- Amer. 36 Normal 12-29-2018 [facility] (32054) GFR/1.73 sq M predicted 30 . Normal 2018 [facility] among non-blacks MDRD [place] (04680) (S/P/Bld) [Vol rate/Area] Comment: Result Comment: eGFR (Estima pratik GFR) Units of measure: mL/min/1.73 meters squaredeGFR is derived from the reexpressed MDRD Study equation using the following parameters: serum creatinine, age, gender and race. The creatinine assay has been calibrated to be traceable to IDMS.An eGFR <60 mL/min/1.73m2 for >3 months is consistent with chronic kidney disease. Refer to KDOQI guidelines for clinical inte rpretation.In patients with unstable renal function, e.g. those with ac cowlitz kidney injury, the eGFR may not accurately reflect actual GFR. Glucose [Mass/Vol] 123 74-99 mg/dL High 12-29-2018 [facility] (95028) Comment: Result Comment: The [place] Diabetes Association (ADA) provides guidance for cutoff values for fastin g glucose and random glucose. The ADA defines fasting as no caloric intake for at least 8 hours. Fasting plasma glucose results between 100 to 125 m g/dL indicate increased risk for diabetes (prediabetes).Fasting plasma glucose results greater than or equal to 126 mg/dL meet the criteria for diagnosis of diabetes. In the absence of unequivocal hyperglycemia, r esults should be confirmed by repeat testing. In a patient with classic sympt oms of hyperglycemia or hyperglycemic crisis, random plasma glucose result s greater than or equal to 200 mg/dL meet the criteria for diagnosis of di abetes.Reference: Standards of Medical Care in Diabetes 2016, [place] Diab etes Association. Diabetes Care. 2016.39(Suppl 1). Potassium [Moles/Vol] 4.7 3.7-5.1 mmol/L Normal 12-30-[address] [facility] (98229) Protein [Mass/Vol] 7.4 6.3-8.0 g/dL Normal 12-29-2018 [facility] (86050) Sodium [Moles/Vol] 137 136-144 mmol/L Normal 12-29-2018 [facility] (98730) Urea nitrogen [Mass/Vol] 17 9-24 mg/dL Normal 12-29 [facility] (66862) cbc and differential on 2018-12-29 Abs Baso 0.05 <0.11 k/uL Normal 12-29-2018 [facility] (27916) Comment: Performed By: #### T3, FT4, TSH, ACTH, COR ####[facility] [place], [place] [phone] Abs Zapata 0.66 <0.87 k/uL Normal 12-29-2018 [facility] (66569) Comment: Performed By: #### T3, FT4, TSH, ACTH, COR ####[facility] [place], [place] [phone] Abs Neut 4.73 1.45-7.50 k/uL Normal 12-29-2018 [facility] (85360) Comment: Performed By: #### T3, FT4, TSH, ACTH, COR ####[facility] [place], [place] [phone] Basophils/100 WBC (Bld) 0.8 % Normal 2018 [facility] (68666) Comment: Performed By: #### T3, FT4, TSH, ACTH, COR ####[place] [address] [place], [place] [phone] Eosinophils (Bld) [#/Vol] 0.25 <0.46 k/uL Normal 12-18 [facility] (11891) Comment: Performed By: #### T3, FT4, TSH, ACTH, COR ####[place] [address] [place], [place] [phone] Eosinophils/100 WBC (Bld) 3.8 % Normal 12-18 [facility] (18798) Comment: Performed By: #### T3, FT4, TSH, ACTH, COR ####[place] [address] [place], [place] [phone] Erythrocyte distribution 16.0 11.5-15.0 % High 12-29 [facility] width (RBC) [Ratio] [place] (48533) Comment: Performed By: #### T3, FT4, TSH, ACTH, COR ####[place] [address] [place] [phone] Hematocrit (Bld) [Volume 39.9 39.0-51.0 % Normal 12-29 [facility] fraction] [place] (94415) Comment: Performed By: #### T3, FT4, TSH, ACTH, COR ####[place] [address] [place] [phone] Hemoglobin (Bld) 12.6 13.0-17.0 g/dL Low 12-29-2018 [facility] [Mass/Vol] [place] (92334) Comment: Performed By: #### T3, FT4, TSH, ACTH, COR ####[place] [address] [place] [phone] Lymphocytes (Bld) [#/Vol] 0.92 1.00-4.00 k/uL Low 12-18 [facility] (81240) Comment: Performed By: #### T3, FT4, TSH, ACTH, COR ####[facility] [place], [place] [phone] Lymphocytes/100 WBC (Bld) 13.9 % Normal 12-18 [facility] (57170) Comment: Performed By: #### T3, FT4, TSH, ACTH, COR ####[place] [address] [place], [place] [phone] MCH (RBC) [Entitic mass] 31.0 26.0-34.0 pG Normal 12-29 [facility] (56961) Comment: Performed By: #### T3, FT4, TSH, ACTH, COR ####[place] [address] [place] [phone] MCHC (RBC) [Mass/Vol] 31.6 30.5-36.0 g/dL Normal 12-30-19 [facility] (65586) Comment: Performed By: #### T3, FT4, TSH, ACTH, COR ####[place] [address] [place], [place] [phone] MCV (RBC) [Entitic vol] 98.0 80.0-100.0 fL Normal 12-29 [facility] (72128) Comment: Performed By: #### T3, FT4, TSH, ACTH, COR ####[place] [address] [place], [place] [phone] Monocytes/100 WBC (Bld) 10.0 % Normal 2018 [facility] (27707) Comment: Performed By: #### T3, FT4, TSH, ACTH, COR ####[place] [address] [place], [place] [phone] Neutrophils/100 WBC (Bld) 71.5 % Normal 12-18 [facility] (57456) Comment: Performed By: #### T3, FT4, TSH, ACTH, COR ####[place] [address] [place], [place] [phone] Platelet mean volume 12.6 9.0-12.7 fL Normal 9 [facility] (d) [Entitic vol] [place] (48946) Comment: Performed By: #### T3, FT4, TSH, ACTH, COR ####[place] [address] [place], [place] [phone] Platelets (Bld) [#/Vol] 160 150-400 k/uL Normal 2018 [facility] (55732) Comment: Performed By: #### T3, FT4, TSH, ACTH, COR ####[place] [address] [place], [place] [phone] RBC (Bld) [#/Vol] 4.07 4.20-6.00 m/uL Low 12-29-2018 [facility] (79668) Comment: Performed By: #### T3, FT4, TSH, ACTH, COR ####[place] [address] [place], [place] [phone] WBC (Bld) [#/Vol] 6.61 3.70-11.00 k/uL Normal 12-29-2018 [facility] (09772) Comment: Performed By: #### T3, FT4, TSH, ACTH, COR ####[place] [address] [place], [place] [phone] albumin/creat ratio on 2018-12-29 Albumin Urine Random 24.8 mg/L Normal 9 [facility] (89259) Comment: Performed By: #### UACR #### [place] [address], [place] [phone] Albumin/Creat Ratio 6 <30 mg/g Normal 12-29-2018 [facility] (08095) Comment: Result Comment: Adult Male a nd Female Nephrotic Criteria:<30 mg/g is considered normal to mildly yhhnzyupj61-329 mg/g is considered moderately increased>300 mg/g is consid ered severely increasedKDIGO. (2013). KDIGO 2012 Clinical Practice Guideline for the Evaluation and Management of Chronic Kidney Disease. Official [place] rnal of the International Society of Nephrology, 3(1), 1-150. Performed By: #### UACR #### [facility] [address], [place] [phone] Creatinine,Urine,Ran 434.4 20-300 mg/dL High 9 [facility] (96486) Comment: Performed By: #### UACR #### [facility], [place] [phone] acth on 2018-12-29 ACTH 27 <47 pg/mL Normal 12-29-2018 [facility] ([id number]) Comment: Performed By: #### T3, FT4, TSH, ACTH, COR ####[facility] [address] [place], [place] [phone] cnpn on 2018-12-28 CNPN Normal 12-28-2018 [facility] ([id number]) obsolete on 2018-12 OBSOLETE Normal 12-27-2018 [facility] ([id number]) obsolete on 2018-12 OBSOLETE Normal 12-26-2018 [facility] ([id number]) progress on 2018-12 PROGRESS HNO ID: [id number] Normal 12-25-2018 [facility] Author: Analisa Garvey ([id number]) Service: ? Author Type: Physician Type: Progress Notes Filed: 01/25/2019 3:01 AM Note Text: Ok noted progress on 2018-12 PROGRESS Normal 12-23-2018 [facility] ([id number]) PROGRESS Normal 12-23-2018 [facility] ([id number]) PROGRESS Normal 12-23-2018 [facility] ([id number]) PROGRESS Normal 12-23-2018 [facility] ([id number]) PROGRESS Normal 12-23-2018 [facility] ([id number]) PROGRESS Normal 12-23-2018 [facility] ([id number]) cnptoutreach on 10-28-05 CNPTOUTREACH Normal 12-23-2018 [facility] ([id number]) cnov on 2018-12-23 CNOV Normal 12-23-2018 [facility] ([id number]) cnnurse on CNNURSE Normal 12-23-2018 [facility] ([id number]) renal function panel on 2018-12-22 Albumin [Mass/Vol] 3.0 3.9-4.9 g/dL Low 12-22-2018 [facility] ([id number]) Comment: Performed By: #### RFP ####[facility] [address] [place] [phone] Anion gap [Moles/Vol] 9 9-18 mmol/L Normal 12-23-19 [facility] (41558) Comment: Performed By: #### RFP ####[facility] [address] [place] [phone] Calcium [Mass/Vol] 8.8 8.5-10.2 mg/dL Normal 12-22-2018 [facility] ([id number]) Comment: Performed By: #### RFP ####[facility] [address] [place] [phone] Chloride [Moles/Vol] 107 97-105 mmol/L High [facility] ([id number]) Comment: Performed By: #### RFP ####[facility] [address] [place] [phone] CO2 [Moles/Vol] 24 22-30 mmol/L Normal 12-22-2018 [facility] (74636) Comment: Performed By: #### RFP ####[facility] [address] [place] [phone] Creatinine [Mass/Vol] 1.85 0.73-1.22 mg/dL High 12-23-19 [facility] ([id number]) Comment: Performed By: #### RFP ####[facility] [address] [place] [phone] eGFR- Amer. 44 Normal 12-22-2018 [facility] ([id number]) Comment: Performed By: #### RFP ####[facility] [address] [phone] GFR/1.73 sq M predicted among 36 . Normal 12-22-2018 [facility] ([id number]) non-blacks MDRD (S/P/Bld) [Vol rate/Area] Comment: Result Comment: eGFR (Estima pratik GFR) Units of measure: mL/min/1.73 meters squared eGFR is derived from the ree xpressed MDRD Study equation using the following parameters: serum creatinine, age, gender and race. The creatinine assay has been calibrated to be traceable to IDMS. An eGFR <60 mL/min/1.73m2 fo r >3 months is consistent with chronic kidney disease. Refer to KDOQI guidelines for clinical interpretation. In patients with unstable re nal function, e.g. those with acute kidney injury, the eGFR may not accurately reflect actual GFR. Performed By: #### RFP ####[facility] [address] [place] [phone] Glucose [Mass/Vol] 107 74-99 mg/dL High 12-22-2018 [facility] (78790) Comment: Result Comment: The [place] [employer] (ADA) provides guidance for cutoff values for fasting glucose and random glucose. The ADA defines fasting as no caloric intake for at least 8 hours. Fas ting plasma glucose results between 100 to 125 mg/dL indicate increased risk for diabetes (prediabetes). Fasting plasma glucose resul ts greater than or equal to 126 mg/dL meet the criteria for diagnosis of diabetes. In the absence of unequivocal hyperglycemia, results should be confirmed by repeat testing. In a patient with classic s ymptoms of hyperglycemia or hyperglycemic crisis, random plasma glucose results greater than or equal to 200 mg/dL meet the criteria for diagnosis of diabetes. Reference: Standards of [facility] Care in Diabetes 2016, [place] [employer] Association. Diabetes Care. 2016.39(Suppl 1). Performed By: #### RFP ####[facility] [address] [phone] Phosphate [Mass/Vol] 3.3 2.7-4.8 mg/dL Normal 9 [facility] ([id number]) Comment: Performed By: #### RFP ####[facility] [address] [place] [phone] Potassium [Moles/Vol] 4.3 3.7-5.1 mmol/L Normal 12-23-[address] [place] [address] ([id number]) Comment: Performed By: #### RFP ####[facility] [address] [place] [phone] Sodium [Moles/Vol] 140 136-144 mmol/L Normal 12-22-2018 [facility] (39146) Comment: Performed By: #### RFP ####[facility] [address] [place] [phone] Urea nitrogen [Mass/Vol] 10 9-24 mg/dL Normal 12-22 [facility] (05711) Comment: Performed By: #### RFP ####[facility] [address] [place] [phone] consult prog on 201 10-28-04 CONSULT PROG HNO ID: [id number] Normal 12-23-[address] [place] [address] Author: Ilan Whitney ([id number]) Service: Nephrology Author Type: Physician Type: Consult Progress Note Filed: 12/22/2018 11:56 AM Note Text: INPATIENT CONSULT PROGRESS NOTES Patient Name: Venkata Leal DATE of SERVICE: December 22, 2018 TIME of SERVICE: 11:53 AM CONSULTING SERVICE: Nephrology INTERVAL HPI: pt was seen and examined, disc with and f riend at bedside, no events overnight and no new complaints or issues . He reports that the stool is thickening up. He is getting IVF 100/hr of isotonic saline. PERTINENT ROS: REVIEW OF SYSTEMS GENERAL: no issues RESPIRATORY: Negative for cough, hemoptysis, wheezing, COPD, dyspnea or shortness of breath CARDIOVASCULAR: Negative for chest pain, leg swelling, hyper tension, CHF or palpitations : No history of dysuria, frequency or incontinence All other reviewed and negative other than HPI. MEDICATIONS: Current Facility-Administered Medications Medication Dose Route Frequency - NaCl 0.9% 3-5 mL 3-5 mL INTRAVENOUS q 12 H - ipratropium-albuterol 3 mL nebulizer solution (DUONEB) 3 m L INHALATION q 4 H PRN - ondansetron orally disintegrating 4 mg tab(s) (ZOFRAN ODT) 4 mg ORAL q 6 H PRN Or - ondansetron (PF) 4 mg injection (ZOFRAN) 4 mg INTRAVENOUS q 6 H PRN - dextrose 40 % 15 g 15 g ORAL PRN Or - glucagon 1 mg injection (GLUCAGEN) 1 mg INTRAMUSCULAR PRN Or - dextrose 50 % 12.5 g injection 12.5 g INTRAVENOUS PRN - acetaminophen 650 mg tab(s) (TYLENOL) 650 mg ORAL q 6 H NH N - gabapentin 300 mg cap(s) (NEURONTIN) 300 mg ORAL AT BEDTIM E - rosuvastatin 5 mg tab(s) (CRESTOR) 5 mg ORAL 2/WK - metoprolol tartrate (short acting) 25 mg tab(s) (LOPRESSOR ) 25 mg ORAL BID - balsalazide 2,250 mg cap(s) (COLAZAL) 2,250 mg ORAL TID - clopidogrel 75 mg tab(s) (PLAVIX) 75 mg ORAL DAILY - sertraline 100 mg tab(s) (ZOLOFT) 100 mg ORAL DAILY - DULoxetine 20 mg cap(s) (CYMBALTA) 20 mg ORAL DAILY - levothyroxine 137 mcg tab(s) (SYNTHROID) 137 mcg ORAL EDUIN Y - pantoprazole DR 20 mg tab(s) (PROTONIX) 20 mg ORAL DAILY ( 6 AM) - NaCl 0.9% iv infusion 100 mL/hr INTRAVENOUS CONTINUOUS - melatonin 3 mg tab(s) 3 mg ORAL HS PRN - insulin lispro injection (rapid acting) (HumaLOG) SUBCUTAN EOUS w MEALS - peebtm-kwaelphj-muzradv 1 capsule cap(s) (CREON 24) 1 caps ule ORAL BID w MEALS - cholestyramine 4 g packet (QUESTRAN) 4 g ORAL BID w MEALS - tamsulosin ER 0.4 mg cap(s) (FLOMAX) 0.4 mg ORAL AT BEDTIM E - dicyclomine 10 mg cap(s) (BENTYL) 10 mg ORAL QID PRN - finasteride 5 mg tab(s) (PROSCAR) 5 mg ORAL DAILY - ferric gluconate 125 mg in NaCl 0.9% 100 mL (FERRLECIT) 12 5 mg INTRAVENOUS DAILY AT 6 PM - insulin glargine 9 Units pen (long acting) (LANTUS SOLOSTA R BASAGLAR ARPIT) 9 Units SUBCUTANEOUS AT BEDTIME - insulin lispro 3 Units injection (rapid acting) (HumaLOG) 3 Units SUBCUTANEOUS w MEALS - oxyCODONE IR 5 mg tab(s) (ROXICODONE) 5 mg ORAL q 6 H PRN - loperamide 4 mg cap(s) (IMODIUM) 4 mg ORAL TID PHYSICAL EXAM: Patient Vitals for the past 24 hrs: BP Temp Temp src Pulse Resp SpO2 Weight 12/22/18 0707 133/66 36.7 ?C (98.1 ?F) Oral 69 16 98 % ? 12/22/18 0600 ? 99.9 kg (220 lb 4.8 oz) 12/21/18 2333 117/63 36.7 ?C (98.1 ?F) Oral 67 18 99 % ? 12/21/18 2205 132/52 ? ? 66 ? ? ? 12/21/18 1504 111/63 36.4 ?C (97.5 ?F) Oral 61 16 98 % ? Body mass index is 32.53 kg/m?. Intake/Output Summary (Last 24 hours) at 12/22/2018 1153 Last data filed at 12/22/2018 1000 Gross per 24 hour Intake 2534 ml Output 2775 ml Net -241 ml GENERAL: Alert, no distress, cooperative LUNGS: Lungs clear to auscultation, Good diaphragmatic excur seth CARDIAC: Normal S1 and S2; no rubs, murmurs, or gallops ABDOMEN: Soft, nontender EXTREMITIES: Extremities normal, no deformities, edema, club erick or skin discoloration. Good capillary refill., No ulcers The remainder of the physical exam is noncontributory. DATA: Recent Labs 12/22/18 0449 12/21/18 0512 12/20/18 0511 12/19/18 1637 WBC 3.52* 3.57* 4.13 -- HB 9.2* 9.2* 9.9* -- HCT 28.6* 28.8* 30.3* -- PLT 91* 94* 110* -- NA 140 142 142 -- K 4.3 4.1 4.7 -- CHLOR 107* 110* 108* -- CO2 24 22 25 -- CREAT 1.85* 1.94* 2.02* -- BUN 10 11 15 -- GLUC 107* 117* 119* -- P 3.3 3.2 3.0 -- TPROT -- 5.2* -- -- ALB 3.0* 3.1* 3.3* -- MG -- 1.7 1.9 2.0 CA 8.8 8.4* 9.1 -- ALKPHOS -- 142* -- -- TBILI -- 0.4 -- -- AST -- 49* -- -- ALT -- 32 -- -- ASSESSMENT AND PLAN: 1. LOR in the setting of high ostomy output, volume depletio n. Will continue IVF until discharge. Improving, I have no objection to discharge with follow up with Dr Lamas. 2. Volume depletion overall improving, I have previously dis cussed with the risk of recurrence. 3. CKD III, will need outpt f/u with Dr Lamas. 4. Anemia- multifactorial, no need for KATIE, on IV iron which can be switched to po iron (daily or bid) upon discharge. SIGNATURE: Ilan Whitney DO DATE: December 22, 2018 TIME: 11:53 AM CONSULT PROG HNO ID: [id number] Normal 12-23-19 [facility] Author: Cassandra Tobias ([id number]) Service: Gastroenterology Author Type: Physician Type: Consult Progress Note Filed: 12/22/2018 2:17 PM Note Text: GASTROENTEROLOGY CONSULT PROGRESS NOTE Patient Name: Venkata Leal SERVICE DATE: December 22, 2018 SERVICE TIME: 10:03 AM ASSESSMENT 1- High ostomy output - improved ?- negative stool studies 2- LOR on CKD - improving 3- Hx Crohn's disease s/p resection of neoterminal ileum and ileocolonic anastomosis with diverting loop ileostomy 11/23/18 on Pentasa 4- GOMEZ cirrhosis complicated by esophageal varices, anemia, thrombocytopenia, portal hypertensive gastropathy MELD 14 5- Hx carcinoid tumor s/p small bowel resection 6- Hx exocrine pancreatic insufficiency on Creon 7- CAD (Plavix) / CKD 8- RIMA ? PLAN - Continue Questran 4 g twice daily / Imodium 4 mg TID - Continue Balsalazide 2250 mg TID (substitute for Pentasa) - Would resume monthly octreotide injections post-discharge (follows with Dr. Mora) - Await results of fecal fat, and 5-HIAA urine? - Protonix 20 mg po daily, Creon 1 capsule twice daily - Ferrlecit 125 mg IV daily x 7 doses?(12/19) - CHO diet? - Follow renal recommendations? - Stable GI status; needs to f/up with usual gastroenterolog ist, Dr. Henley, post-discharge Patient seen and examined. Discussed with mid level provider . Harman findings confirmed. Plan as outlined. Sleeping comfortably. Reports mild stomal pain otherwise no abd pain. No nausea or vomiting. Feels good to go home. Has appt tomorrow with Dr. Teixeira. Close outpatient follow up. Cassandra Tobias MD December 22, 2018 2:16 PM ? INTERVAL HPI: Patient reports continued improved ostomy outp ut. Had 1550 cc over the last 24 hours and 200 cc so far today. Stool is liquid, hagan. He denies abdominal pain other than stomal pain. No nausea o r vomiting. Tolerating diet. Renal function continues to improve (does h ave underlying CKD). He has appt with Dr. Teixeira ([facility]) tomorrow. PHYSICAL EXAM: Patient Vitals for the past 24 hrs: BP Temp Temp src Pulse Resp SpO2 Weight 12/22/18 0707 133/66 36.7 ?C (98.1 ?F) Oral 69 16 98 % ? 12/22/18 0600 ? 99.9 kg (220 lb 4.8 oz) 12/21/18 2333 117/63 36.7 ?C (98.1 ?F) Oral 67 18 99 % ? 12/21/18 2205 132/52 ? ? 66 ? ? ? 12/21/18 1504 111/63 36.4 ?C (97.5 ?F) Oral 61 16 98 % ? GENERAL: Alert and oriented x 3. Appears comfortable. NAD HEENT: Mild pallor. No scleral icterus LUNGS: Clear to auscultation anteriorly CARDIAC: RRR ABDOMEN: Soft. Non distended. Non tender. Bowel sounds minna l. No guarding or rebound tenderness. Ostomy RLQ with hagan, liquid stool EXTREMITIES: No edema to JONES lower extremities MEDICATIONS: Current Facility-Administered Medications Medication Dose Route Frequency - NaCl 0.9% 3-5 mL 3-5 mL INTRAVENOUS q 12 H - ipratropium-albuterol 3 mL nebulizer solution (DUONEB) 3 m L INHALATION q 4 H PRN - ondansetron orally disintegrating 4 mg tab(s) (ZOFRAN ODT) 4 mg ORAL q 6 H PRN Or - ondansetron (PF) 4 mg injection (ZOFRAN) 4 mg INTRAVENOUS q 6 H PRN - dextrose 40 % 15 g 15 g ORAL PRN Or - glucagon 1 mg injection (GLUCAGEN) 1 mg INTRAMUSCULAR PRN Or - dextrose 50 % 12.5 g injection 12.5 g INTRAVENOUS PRN - acetaminophen 650 mg tab(s) (TYLENOL) 650 mg ORAL q 6 H NH N - gabapentin 300 mg cap(s) (NEURONTIN) 300 mg ORAL AT BEDTIM E - rosuvastatin 5 mg tab(s) (CRESTOR) 5 mg ORAL 2/WK - metoprolol tartrate (short acting) 25 mg tab(s) (LOPRESSOR ) 25 mg ORAL BID - balsalazide 2,250 mg cap(s) (COLAZAL) 2,250 mg ORAL TID - clopidogrel 75 mg tab(s) (PLAVIX) 75 mg ORAL DAILY - sertraline 100 mg tab(s) (ZOLOFT) 100 mg ORAL DAILY - DULoxetine 20 mg cap(s) (CYMBALTA) 20 mg ORAL DAILY - levothyroxine 137 mcg tab(s) (SYNTHROID) 137 mcg ORAL EDUIN Y - pantoprazole DR 20 mg tab(s) (PROTONIX) 20 mg ORAL DAILY ( 6 AM) - NaCl 0.9% iv infusion 100 mL/hr INTRAVENOUS CONTINUOUS - melatonin 3 mg tab(s) 3 mg ORAL HS PRN - insulin lispro injection (rapid acting) (HumaLOG) SUBCUTAN EOUS w MEALS - gqzupf-jyujhwrb-mgxctbl 1 capsule cap(s) (CREON 24) 1 caps ule ORAL BID w MEALS - cholestyramine 4 g packet (QUESTRAN) 4 g ORAL BID w MEALS - tamsulosin ER 0.4 mg cap(s) (FLOMAX) 0.4 mg ORAL AT BEDTIM E - dicyclomine 10 mg cap(s) (BENTYL) 10 mg ORAL QID PRN - finasteride 5 mg tab(s) (PROSCAR) 5 mg ORAL DAILY - ferric gluconate 125 mg in NaCl 0.9% 100 mL (FERRLECIT) 12 5 mg INTRAVENOUS DAILY AT 6 PM - insulin glargine 9 Units pen (long acting) (LANTUS SOLOSTA R, BASAGLAR KWIKPEN) 9 Units SUBCUTANEOUS AT BEDTIME - insulin lispro 3 Units injection (rapid acting) (HumaLOG) 3 Units SUBCUTANEOUS w MEALS - oxyCODONE IR 5 mg tab(s) (ROXICODONE) 5 mg ORAL q 6 H PRN - loperamide 4 mg cap(s) (IMODIUM) 4 mg ORAL TID LABS: CBC, Coags, BMP, Mg, Phos Recent Labs 12/22/1844812/21/1851112/20/1851012/19/18 1637 WBC 3.52* 3.57* 4.13 -- HB 9.2* 9.2* 9.9* -- HCT 28.6* 28.8* 30.3* -- PLT 91* 94* 110* -- INR -- -- 1.1 -- NA 140 142 142 -- K 4.3 4.1 4.7 -- CHLOR 107* 110* 108* -- CO2 24 22 25 -- BUN 10 11 15 -- CREAT 1.85* 1.94* 2.02* -- GLUC 107* 117* 119* -- CA 8.8 8.4* 9.1 -- MG -- 1.7 1.9 2.0 P 3.3 3.2 3.0 -- Liver Function, Amylase, AND Lipase Recent Labs 12/22/1844812/21/1851112/20/18510 TPROT -- 5.2* -- ALB 3.0* 3.1* 3.3* ALT -- 32 -- AST -- 49* -- ALKPHOS -- 142* -- TBILI -- 0.4 -- MISC LABS 06/13/2017 Liver biopsy Liver, random right lobe, biopsy ?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 See comment. COMMENT The biopsy demonstrates distorted liver architecture with ci rrhosis as highlighted on the trichrome stain. The lobular parenchyma d emonstrates mild macrovesicular steatosis representing approximately 15- 20% of the liver surface. Rare ballooned hepatocytes with Beba hyali ne and scattered foci of lobular inflammation are noted. The portal tracts show minimal chronic inflammatory infiltrates composed mainly of small mature lymphocytes without interface activity. There is minimal jones e ductular proliferation. The interlobular bile ducts are intact. Granu samina are not seen. There is no evidence of cholestasis. PAS/D stain is ne gative for alpha-1 antitrypsin inclusions. The iron stain does not reve al increased iron deposition. The findings are consistent with end-stage liver disease (ci rrhosis) with associated features of steatohepatitis. This pattern of inju ry has been associated with obesity/metabolic syndrome, diabetes mellitu s, drug-induced injury (steroids), alcohol use, total parental nutrition, Wi lson's disease, among others. ?? ? Component Latest Ref Rng AND Units 11/12/2018 Hep B Core Ab, Total Negative Negative Hep C Antibody IA Negative Negative Hep B Surface Ag Negative Negative Hep B Surface Ab, Qual Negative Negative Iron 41 - 186 ug/dL 78 TIBC 232 - 386 ug/dL 390 (H) Transferrin Saturation 15 - 57 % 20 IgA 78 - 391 mg/dL 234 Transglutaminase Ab, IgA <20 Units 8 Interpretation (Celiac Screen) No serologic evidence of neri ac disease. No serologic evidence of celiac disease. V.zoster IgG, Qual Negative Positive (A) Varicella zoster, IgG Index Value 950.5 EBV VCA IgG, Qual Negative Positive (A) EBV VCA, IgG AI >8.0 CRP <0.9 mg/dL 0.8 Ferritin 30.3 - 565.7 ng/mL 116.0 Vitamin B12 232 - 1,245 pg/mL 771 Hep A Ab, Total Negative Negative Hep B Surf Ab Quant <8.00 mIU/mL <8.00 ? 11/23/18 surgical pathology Ileocolic anastomosis, resection: - Chronic active ileitis with ulceration. - Benign lymph nodes. ?? Component Latest Ref Rng AND Units 12/16/2018 12/17/2018 NT Pro BNP <125 pg/mL 36 ? Lactate 0.5 - 2.2 mmol/L 2.2 (H) 3.0 (H) ? Component Latest Ref Rng AND Units 12/17/2018 Iron 41 - 186 ug/dL 30 (L) TIBC 232 - 386 ug/dL 372 Transferrin Saturation 15 - 57 % 8 (L) Folate >4.7 ng/mL 6.7 Ferritin 30.3 - 565.7 ng/mL 70.6 Vitamin B12 232 - 1,245 pg/mL >2,000 (H) 12/17/18 Stool studies: FL (-). ?Cx (-). C-diff (-). ?OB (-) . OANDP (-) 12/21/18 AFP: <3 ? RADIOLOGY? 09/10/18 CT A/P Liver: Normal unenhanced liver. IMPRESSION: Small bowel stricture involving 4 cm segment of small bowel in the right abdomen at the small bowel anastomosis site, new since CT 03/28/2018. No metastatic disease in the abdomen or pelvis. ? 09/30/18 NM Tumor octreotide scan IMPRESSION: No areas of abnormal indium-111 uptake are seen suggest a le seth with high metastatic receptor concentration. ? 11/24/2018 KUB IMPRESSION: Lines, tubes, and devices: NG/OG tube terminates in the prox imal stomach with side-port subdiaphragmatic. Bowel: No dilated bowel. Other: Right upper quadrant surgical clips. ?Midline surgica l clement. ? 12/16/18 CXR IMPRESSION: No acute radiographic abnormality. ? 12/20/18 KUB IMPRESSION: Nonobstructive bowel gas pattern. ?Ileostomy in the right fl ank. ?No free intra-abdominal air. ? MOST RECENT EGD?12/15/17 with Serafin Henley MD for hx eso phageal varices - Grade I esophageal varices. - Portal hypertensive gastropathy. - Normal examined duodenum. - No specimens collected.? ? MOST RECENT COLONOSCOPY?10/16/18 with Serafin Henley MD ([facility]) for history of Crohn's disease, stricture seen on CT The colon (entire examined portion) appeared normal. Despite multiple maneuvers including pressure, changes in body position and c hanging the pediatric scope for an adult scope, I was unable to enter th e ileum SIGNATURE: Ivonneflo Ibarra, FIRE BOAT ENGINEER DATE: December 22, 2018 TIME: 10:03 AM cnptoutreach on 201 10-28-04 CNPTOUTREACH Normal 12-22-2018 [facility] ([id number]) cbc on 2018-12-22 Erythrocyte distribution 14.5 11.5-15.0 % Normal 12-22 [facility] (28904) width (RBC) [Ratio] Comment: Performed By: #### CBC ####M [facility] [address] [place], [place] [phone] Hematocrit (Bld) [Volume 28.6 39.0-51.0 % Low 12-22 [facility] (15021) fraction] Comment: Performed By: #### CBC ####M [place] [phone] Hemoglobin (Bld) [Mass/Vol] 9.2 13.0-17.0 g/dL Low [facility] (32622) Comment: Performed By: #### CBC ####M [place] [phone] MCH (RBC) [Entitic mass] 31.2 26.0-34.0 pG Normal 12-22 [facility] (61134) Comment: Performed By: #### CBC ####M [place] [phone] MCHC (RBC) [Mass/Vol] 32.2 30.5-36.0 g/dL Normal 12-23-19 19 [facility] (49932) Comment: Performed By: #### CBC ####M [place] [phone] MCV (RBC) [Entitic vol] 96.9 80.0-100.0 fL Normal 12-22 [facility] (78916) Comment: Performed By: #### CBC ####M [place] [phone] Platelet mean volume (Bld) 12.3 9.0-12.7 fL Normal [facility] (19294) [Entitic vol] Comment: Performed By: #### CBC ####M [facility] [address] [place] [phone] Platelets (Bld) [#/Vol] 91 150-400 k/uL Low 2018 [facility] (65368) Comment: Result Comment: No clot dete cted. Performed By: #### CBC ####M [facility] [address] [place] [phone] RBC (Bld) [#/Vol] 2.95 4.20-6.00 m/uL Low 12-22-2018 [facility] (35930) Comment: Performed By: #### CBC ####M [facility] [address] [place] [phone] WBC (Bld) [#/Vol] 3.52 3.70-11.00 k/uL [facility] 12-22-2018 [facility] (14035) Comment: Performed By: #### CBC ####M [facility] [address] [place] [phone] case managem on 201 10-28-04 CASE MANAGEM HNO ID: [id number] [place] 12-23-[address] [place] [address] Author: Kaia (Rn) HITESH Lobato ([id number]) Service: Case Management Author Type: Registered Nurse Type: Care Mgt Progress Note Filed: 12/22/2018 4:48 PM Note Text: CARE MANAGEMENT DISCHARGE NOTE SERVICE DATE: 12/22/2018 SERVICE TIME: 4:25 PM LOS: 6 days Admission Date: 12/16/2018 DISCHARGE ARRANGEMENT (list agency and phone number) Home Care - Nursing, PT and OT Provider: [facility] Phone: CAREGIVER ASSESSMENT: Caregiver is ready, willing and able to meet the patient's n eeds as recommended by the inter-professional team? Yes Patient's transition needs and plan for meeting these needs: Home with HHC and spouse assist needed. Does the patient have an acute stroke diagnosis, or has the patient had a stroke during this admission? No HANDOFF COMMUNICATION: Primary Care Physician: Name: ANALISA GARVEY MD Phone: Summary of Care to ANALISA GARVEY MD and [facility] TRANSPORTATION ARRANGEMENTS: Spouse to transport ADDITIONAL CONTACT RESOURCES: N/A Discharge Information Row Name ED to Hosp-Admission (Current) from 12/16/2018 in [facility] Start of Care 12/24/18 Needs Prior to Discharge: None;Ready for Discharge Discharge to home today with resumption of home care. [facility] can accept. Family to transport. The pa zachary plans on following up with PCP and Colorectal surgeon as previously s chewei. SIGNATURE: Kaia Lobato RN PATIENT NAME: Venkata Leal DATE: December 22, 2018 TIME: 4:25 PM PAGER/CONTACT #: [phone] CASE MANAGEM HNO ID: [id number] Normal 12-23-[address] [place] [address] Author: Kaia (Rn) HITESH Lobato ([id number]) Service: Case Management Author Type: Registered Nurse Type: Care Mgt Progress Note Filed: 12/22/2018 10:23 AM Note Text: CARE MANAGEMENT PROGRESS NOTE SERVICE DATE: 12/22/2018 SERVICE TIME: 10:17 AM LOS: 6 days Needs Prior to Discharge: Home Care Order;Other: See Comment (Medical Clearance) IM letter given to Venkata Leal on 12/22/2018. EMR reviewed. Possible d/c today. RN NIYA met with the patient and his spouse at bedside to discuss discharge planning needs. The p atient is hopeful to be discharged today and confirmed plan to return home with his and [facility]. CM ass igned will continue to follow. SIGNATURE: Kaia Lobato RN PATIENT NAME: Venkata Leal DATE: December 22, 2018 TIME: 10:17 AM PAGER/CONTACT #: [phone] therapy nt on 12-21 THERAPY NT HNO ID: [id number] Normal 12-21-2018 [place] Author: Joy (Ot) [facility], [place] Service: Occupational Therapy ([id number]) Author Type: Occupational Therapist Type: Therapy (PT/OT/Speech/Resp) Filed: 12/21/2018 1:39 PM Note Text: Occupational Therapy Evaluation SERVICE DATE: 12/21/2018 SERVICE TIME: 1204 to 1240 ROOM: [place] [address] Recommended Discharge Disposition: Home OT Recommended Discharge Disposition Comments: for home safety evaluation and progression of ADLS/IADLS Anticipated Discharge Needs: Physical Assist at Home Physical Assist at Home for: Cleaning;Laundry;Meals;Self Car e Supervision at Home due to: Other: See Comment(multiple rece nt hospitalizations ) Recommended Discharge Equipment: Grab Bars-Shower OT Recommendations to Nursing: To Bathroom for ADL?s /and or Toileting;OOB for meals;With assist of 1 person Equipment: Wheeled Walker OT 6 Clicks Score: 22 Precautions/Activity Restrictions: Fall Risk;Lines/Tubes/Lisa ins Precaution/Activity Restriction Comments: R side ostomy ASSESSMENT: Pt is at CGA/Sofy level for ADLS and SBA/CGA wit h functional mobility. Patient's impairments and limitations include impa ired self care task performance, decreased functional mobility, decreased a ctivity tolerance, general weakness. This may impact patient's abili ty to function without assist from caregivers. Patient is motivated with go od participation. Patient requires skilled OT services to addre ss self care limitations as well as advancement of daily activities with recommendation of progression to home OT level of care post hospital stay. Patient Disposition at Start of Session: Supine in Bed;Call Leo in Reach;Family Present Patient Disposition at End of Session: OOB in Chair;Call Bel l in Reach;Family Present Tolerated Full Session Occupational Therapy Problem List: Impaired Self Care;Decrea sed Activity Tolerance;Decreased Strength;Functional Mobility Impairment Patient /Caregiver Goals: Go Home Goals for Plan of Care: Able to perform HEP with: Verbal Cues Only(BUE strengthening ) Grooming with: Supervision Lower Body Bathing with: Supervision Lower Body Dressing with: Supervision Toilet Hygiene with: Supervision Chair Transfer with: Supervision Toilet Transfer with: Supervision Tolerate (minutes of functional activity): 30 Rehab Potential: Good PLAN: Treatment Frequency (times per week): 3 Current admission Treatment Interventions: Education;Self Care / Home Management;Strengthening;Functional Mobility Training Plan of Care developed with: Patient;Caregiver TREATMENT INTERVENTIONS: Therapy Diagnosis: Decreased activities of daily living (ADL ) Interventions Provided: Evaluation;Therapeutic Activity (611 30) $ Evaluation-Low (79600) Billed Units: 1 unit Therapeutic Activity (56491) Treatment Minutes: 24 2 units Skilled Intervention(s): Patient and spouse educated in role of OT and HHC. Instructed and facilitated in bed mobility, scooting fo rward to edge of bed, sit to stand transfer training, and functional mobil ity with use of walker, with verbal, visual, and tactile cues for for irvin d placement, walker sequencing, safety, encouragement to do for self, and technique. Patients participated in endurance activity by complete func tional mobility in hallway with verbal cues for encouragement and m onitoring of vitals and lines. Discussed recommendations in home environm ent including installed grab bar for shower. Discussed using a drinking cu p with measurements for proper hydration. Pt and spouse educated in plan of care. Total Timed Code Treatment Minutes: 24 Total Treatment Time (minutes): 36 SUBJECTIVE: Current Hospital Course: Chart reviewed; ; Reason for Occupational Therapy Consult: Pt is a 68 year old male admitted 12/16/18 with syncope secondary to dehydration. OT evaluatio n for safety assessment. Relevant Past Medical History: illeostomy 11/23/18, HTN, DM, CAD, HPL, PVD, TIA, hypothyroidism, bladder CA, cirrhosis, varices, ascites , Crohns Patient Report: Per spouse, He is always a good sport, he w ill do anything that is recommended per spouse Home Environment Patient Lives With: Spouse(one level home ) Assistance Available: 24 Hour Entry To Home: Stairs;With Rail Number Of Stairs Into Home: 3 Number Of Stairs To Bed/Bath: 0 Tub/Shower Type: tub/shower with curtain Laundry: Main level- completes Equipment Owned: Cane;Rollator;Shower Chair;Wheelchair;Hospi tracie Bed Prior Functional Level: Within Functional Limits;History of Falls Prior Functional Level Comments: amb with rollator or cane o utside home, Indep with ADLs and completes IADLs OBJECTIVE: Cognition/Communication Deficits Orientation Deficits: (alert and oriented x3) CURRENT FUNCTIONAL STATUS: Current Activities of Daily Living Assist Level Feeding Independent Grooming Stand By Assistance(for safety during standing port ion) Bathing Upper Body Supervision(seated, per clinical judgment ) Bathing Lower Body Minimal Assistance(for thoroughness, per clinica ljudent) Dressing Upper Body Supervision(per clinical judgment) Dressing Lower Body Minimal Assistance(for thoroughness, sim ulated edge of bed) Toileting Stand By Assistance(per clinical judgment) Instrumental Activities of Daily Living Assist Level Meal/Beverage Prep Light Cleaning Laundry Medication Management with Strategies Functional Mobility Assist Level Rolling Supine to Sit Stand By Assistance Sit to Supine Scooting Stand By Assistance Sit to Stand Contact Guard Assistance Stand to Sit Stand By Assistance Bed to Chair Toilet/Commode Functional Mobility Stand By Assistance(CGA) Wheeled Walker Please see discipline specific clinical documentation [facility] for complete details for this therapy evaluation/treatment. SIGNATURE: YVES Carrasco/Owen PATIENT NAME: Venkata andrade DATE: December 21, 2018 TIME: 1:34 PM progress on 2018-12 PROGRESS HNO ID: [id number] Normal 12-21-2018 [facility] Author: Carolann Haywood ([id number]) Service: Hospital Medicine Author Type: Physician Type: Progress Notes Filed: 12/21/2018 4:45 PM Note Text: SERVICE DATE: 12/21/2018 SERVICE TIME: 4:43 PM HOSPITAL MEDICINE PROGRESS NOTE NIGHT AND WEEKEND COVERAGE: Nights: Please contact pager [phone]. [facility] Medicine/Primary Attending: Carolann Haywood MD Subjective HPI: Mr. Leal is a 68 year old male who presents for syncope and high ileostomy output with concern for dehydration 3 weeks post o p from a ileocolonic resection with divertiing ileostomy (redo for [facility]), initially with a carciniod tumor. His sister is at the [facility] and assists with history. He has noted the increase in effluence for abo ut 5 days, He has used Imodium with no relief. he denies fevers. Reports o ccasional nausea although none now. His ostomy bag is full of liquid d ark green stool. Abdomen is soft and nontender, stoma is pink and matu ring. K was elevated, up to 6.3 yesterday, now at 4.5. BUN 35, Creatinin e 3.19 - hx of chronic kidney disease. Interval Events: Patient feeling so much better. Sitting up in bed. Reports d ecreased in ostomy output. Denies fever, chills, nausea, vomiting, signi ficant abdominal pain nor dizziness nor shortness of breath. Objective BP 111/63 Pulse 61 Temp (Src) 97.5 (Oral) Resp 16 Ht 5' 9 (1.75m) Wt 220 lb 4.8 oz (99.9kg) SpO2 98% BMI 32.52 kg/(m2). O2 Therapy: Room Air Physical Exam Performed: GENERAL: : well appearing, alert and in no acute distress HEART: : regular rate and rhythm, no murmer, gallop or rub LUNGS: : clear to Auscultation, no wheezes nor rhonchi ABDOMEN: : Soft, healed surgical scar noted . bowel sounds n ormal,+ ostomy in situ draining brownish liquid. EXTREMITY: No edema NEURO: Awake, alert, oriented ?3. Can move all extremities. Lines, Drains, and Airways Line Peripheral 12/21/18 Short Left Hand 22 Gauge less than 1 day Reviewed lines, drains, AND airways. Need to be continued . Medications: Reviewed Diagnostic tests reviewed: Most recent labs and imaging results. 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 Patient on NovoLog 70/30 twice a day at home. Changed to Lantus/lispro since admission with controlled gly cemic readings. [employer] coverage checked by Dr. Holden and reports excellent d rug coverage of pen versions Plan: Continue current management Chronic diastolic heart failure ([facility]) 05/03/2016 - Present Current Assessment AND Plan Assessment: Compensated-off diuretics Echo 10/09/17 EF 64 Plan: Continue current management Strict I's and O's Acute renal failure superimposed on stage 3 chronic kidney d isease ([facility]) 05/03/2016 - Present Current Assessment AND Plan Assessment: Improving Due to diuretic use and high ostomy outputs Outpatient Physical Therapist Assistant and dental laboratory technician consulted. Plan: Continue IV fluids as per nephrology recommendation Continue to optimize medications. High ostomy outputs as per GI recommendation. Daily renal function test. Avoid nephrotoxins Crohn's disease of small intestine with intestinal obstructi on ([facility]) 04/02/2017 - Present Current Assessment AND Plan Assessment : Hx Crohn's disease s/p resection of neoterminal ileum and il eocolonic anastomosis with diverting loop ileostomy 11/23/18 on Pentasa Now complicated with high outputs ostomy Plan: Continue current management See plan above for high outputs ostomy 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) 12/09/2017 - Present Current Assessment AND Plan Assessment : History of GOMEZ cirrhosis complicated by esophageal varices, anemia, thrombocytopenia, portal hypertensive gastropathy MELD 14 Plan: Stable GI following High output ileostomy (HCC) 12/17/2018 - Present Current Assessment AND Plan Assessment: Improving Negative stool studies GI following-on Questran and Imodium PLAN: Continue current management as per GI recommendation For possible discharge tomorrow as per GI recommendation Discharge planning with home health care.F2F other placed Medication and Non-Pharmacologic VTE Prophylaxis/Anticoagula nts Anticoagulant AND Antiplatelet Medications (From admission, onward) Start Dose Route Frequency Ordered Stop 12/16/18 2300 clopidogrel 75 mg tab(s) (PLAVIX) 75 mg ORAL DAILY 12/16/18 2247 -- 12/18/18 1000 activity - mobilize patient ([place]) 12/17/18 1500 pneumatic compression stockings ([place]) 12/16/18 2215 pneumatic compression stockings ([place]) VTE Prophylaxis: VTE prophylaxis appropriate Plan of care discussed with: Patient, Family/Significant Oth er: and RN SIGNATURE: Carolann Haywood MD PATIENT NAME: Venkata Lemos rst DATE: December 21, 2018 TIME: 4:43 PM PAGER/CONTACT #: [phone] phosphorus on 12-21 Phosphate [Mass/Vol] 3.2 2.7-4.8 mg/dL Normal 9 [facility] ([id number]) Comment: Performed By: #### CBCDIF, B MP, HFP, MG1, PHOS ####[facility] [address] [facility] on [phone]#### AFP ####[facility] [address] [place], [place] [phone] nutrition on 2018-02 NUTRITION HNO ID: [id number] Normal 12-21-2018 [facility] Author: Melody Kwan ([id number]) Service: Nutrition Therapy Author Type: Registered Dietitian Type: Nutrition Filed: 12/21/2018 3:05 PM Note Text: NUTRITION THERAPY NOTE SERVICE DATE: 12/21/2018 SERVICE TIME: 1:30 pm Anthropometrics: Height: 175.3 cm (5' 9) Current Weight: Weight: 99.9 kg (220 lb 4.8 oz) Body mass index is 32.53 kg/m?. Loss of lean body mass/visual muscle wasting: no Admitting Diagnosis: Syncope [R55] Present Diet Order: Carbohydrate Controlled Is the patient having any pain that is interfering with oral /enteral intake? No Allergies: ALLERGIES Allergen Reactions - Lipitor [Atorvastat* Intolerance myalgias - Zocor [Simvastatin] Intolerance myalgias - Novacain [Other] Intolerance Headache when it wears off - Lescol [Fluvastatin* Intolerance myalgia Reason for Visit: Nutrition screen: LOS No recent significant weight loss. No problems chewing or sw allowing. Good oral intake, consuming 100% of meals. No nausea or vomi ting. Ostomy output is decreasing. Progress notes and labs reviewed. Nursing Admission Assessment Malnutrition Score Tool: 0 Plan of Care: Recommendation No problems noted at this time. Will screen again within 7 d ays Discharge Plan: Carb Controlled diet MNT Billing Type: Initial Assess/15 min 2 units SIGNATURE: Melody Kwan RD, LD PATIENT NAME: Venkata andrade DATE: December 21, 2018 TIME: 2:54 PM PAGER: magnesium on 2018-02 Magnesium [Mass/Vol] 1.7 1.7-2.3 mg/dL Normal 9 [facility] ([id number]) Comment: Performed By: #### CBCDIF, B MP, HFP, MG1, PHOS ####[facility] [address] [facility] on [phone]#### AFP ####[facility] [place], [place] [phone] hepatic functn panel on 2018-12-21 Albumin [Mass/Vol] 3.1 3.9-4.9 g/dL Low 12-21-2018 [facility] ([id number]) Comment: Performed By: #### CBCDIF, B MP, HFP, MG1, PHOS ####[address] [place] [address]#### AFP ####[facility], [place] [phone] ALP [Catalytic activity/Vol] 142 38-113 U/L High 1 02-20-2018 [facility] ([id number]) Comment: Performed By: #### CBCDIF, B MP, HFP, MG1, PHOS ####[address] [place] [address]#### AFP ####[place] [address], [place] [phone] ALT [Catalytic activity/Vol] 32 10-54 U/L Normal 1 02-20-2018 [facility] ([id number]) Comment: Performed By: #### CBCDIF, B MP, HFP, MG1, PHOS ####[address] [place] [address]#### AFP ####[facility], [place] [phone] AST [Catalytic activity/Vol] 49 14-40 U/L High 1 02-20-2018 [facility] ([id number]) Comment: Performed By: #### CBCDIF, B MP, HFP, MG1, PHOS ####[address] [place] [address]#### AFP ####[facility], [place] [phone] Bilirubin [Mass/Vol] 0.4 0.2-1.3 mg/dL Normal 9 [facility] ([id number]) Comment: Performed By: #### CBCDIF, B MP, HFP, MG1, PHOS ####[address] [place] [address]#### AFP ####[facility], [place] [phone] Bilirubin,Conjugated <0.2 <0.2 Normal 9 [facility] ([id number]) Comment: Performed By: #### CBCDIF, B MP, HFP, MG1, PHOS ####[facility] [address] [facility] on [phone]#### AFP ####[facility] [address] [place], [place] [phone] Protein [Mass/Vol] 5.2 6.3-8.0 g/dL Low 12-21-2018 [facility] ([id number]) Comment: Performed By: #### CBCDIF, B MP, HFP, MG1, PHOS ####[facility] [address] [facility] on [phone]#### AFP ####[facility] [address] [place], [place] [phone] consult prog on 10-29-03 CONSULT PROG HNO ID: [id number] Normal 12-22-19 [facility] Author: Ilan Whitney ([id number]) Service: Nephrology Author Type: Physician Type: Consult Progress Note Filed: 12/21/2018 4:57 PM Note Text: INPATIENT CONSULT PROGRESS NOTES Patient Name: Venkata Leal DATE of SERVICE: December 21, 2018 TIME of SERVICE: 4:53 PM CONSULTING SERVICE: Nephrology INTERVAL HPI: interval notes reviewed, meds being adjusted, still on ivf, sound asleep PERTINENT ROS: REVIEW OF SYSTEMS GENERAL: no issues per report RESPIRATORY: no issues per report CARDIOVASCULAR: no issues per report : good urine out All other reviewed and negative other than HPI. MEDICATIONS: Current Facility-Administered Medications Medication Dose Route Frequency - NaCl 0.9% 3-5 mL 3-5 mL INTRAVENOUS q 12 H - ipratropium-albuterol 3 mL nebulizer solution (DUONEB) 3 m L INHALATION q 4 H PRN - ondansetron orally disintegrating 4 mg tab(s) (ZOFRAN ODT) 4 mg ORAL q 6 H PRN Or - ondansetron (PF) 4 mg injection (ZOFRAN) 4 mg INTRAVENOUS q 6 H PRN - dextrose 40 % 15 g 15 g ORAL PRN Or - glucagon 1 mg injection (GLUCAGEN) 1 mg INTRAMUSCULAR PRN Or - dextrose 50 % 12.5 g injection 12.5 g INTRAVENOUS PRN - acetaminophen 650 mg tab(s) (TYLENOL) 650 mg ORAL q 6 H NH N - gabapentin 300 mg cap(s) (NEURONTIN) 300 mg ORAL AT BEDTIM E - [START ON 12/22/2018] rosuvastatin 5 mg tab(s) (CRESTOR) 5 mg ORAL 2/WK - metoprolol tartrate (short acting) 25 mg tab(s) (LOPRESSOR ) 25 mg ORAL BID - balsalazide 2,250 mg cap(s) (COLAZAL) 2,250 mg ORAL TID - clopidogrel 75 mg tab(s) (PLAVIX) 75 mg ORAL DAILY - sertraline 100 mg tab(s) (ZOLOFT) 100 mg ORAL DAILY - DULoxetine 20 mg cap(s) (CYMBALTA) 20 mg ORAL DAILY - levothyroxine 137 mcg tab(s) (SYNTHROID) 137 mcg ORAL EDUIN Y - pantoprazole DR 20 mg tab(s) (PROTONIX) 20 mg ORAL DAILY ( 6 AM) - NaCl 0.9% iv infusion 100 mL/hr INTRAVENOUS CONTINUOUS - melatonin 3 mg tab(s) 3 mg ORAL HS PRN - insulin lispro injection (rapid acting) (HumaLOG) SUBCUTAN EOUS w MEALS - pzpozh-gesqewwu-tovhyok 1 capsule cap(s) (CREON 24) 1 caps ule ORAL BID w MEALS - cholestyramine 4 g packet (QUESTRAN) 4 g ORAL BID w MEALS - tamsulosin ER 0.4 mg cap(s) (FLOMAX) 0.4 mg ORAL AT BEDTIM E - dicyclomine 10 mg cap(s) (BENTYL) 10 mg ORAL QID PRN - finasteride 5 mg tab(s) (PROSCAR) 5 mg ORAL DAILY - ferric gluconate 125 mg in NaCl 0.9% 100 mL (FERRLECIT) 12 5 mg INTRAVENOUS DAILY AT 6 PM - insulin glargine 9 Units pen (long acting) (LANTUS SOLOSTA R, BASAGLAR KWIKPEN) 9 Units SUBCUTANEOUS AT BEDTIME - insulin lispro 3 Units injection (rapid acting) (HumaLOG) 3 Units SUBCUTANEOUS w MEALS - oxyCODONE IR 5 mg tab(s) (ROXICODONE) 5 mg ORAL q 6 H PRN - loperamide 4 mg cap(s) (IMODIUM) 4 mg ORAL TID PHYSICAL EXAM: Patient Vitals for the past 24 hrs: BP Temp Temp src Pulse Resp SpO2 Weight 12/21/18 1504 111/63 36.4 ?C (97.5 ?F) Oral 61 16 98 % ? 12/21/18 0815 117/55 36.3 ?C (97.3 ?F) Oral 90 14 100 % ? 12/21/18 0600 ? 99.9 kg (220 lb 4.8 oz) 12/20/18 2341 108/59 36.7 ?C (98.1 ?F) Oral 62 18 98 % ? 12/20/182021 134/63 ? ? 72 ? ? ? Body mass index is 32.53 kg/m?. Intake/Output Summary (Last 24 hours) at 12/21/2018 1653 Last data filed at 12/21/2018 1300 Gross per 24 hour Intake 2512 ml Output 2200 ml Net 312 ml GENERAL: Sleeping comfortably LUNGS: CTA ant CARDIAC: reg, no rub ABDOMEN: Soft, nontender EXTREMITIES: no edema The remainder of the physical exam is noncontributory. DATA: Recent Labs 12/21/18 0512 12/20/18 0511 12/19/18 1637 12/19/18 0538 WBC 3.57* 4.13 -- 3.16* HB 9.2* 9.9* -- 9.4* HCT 28.8* 30.3* -- 28.5* PLT 94* 110* -- 108* NA 142 142 -- 140 K 4.1 4.7 -- 4.6 CHLOR 110* 108* -- 107* CO2 22 25 -- 24 CREAT 1.94* 2.02* -- 2.30* BUN 11 15 -- 21 GLUC 117* 119* -- 118* P 3.2 3.0 -- 3.2 TPROT 5.2* -- -- -- ALB 3.1* 3.3* -- 3.2* MG 1.7 1.9 2.0 2.2 CA 8.4* 9.1 -- 8.6 ALKPHOS 142* -- -- -- TBILI 0.4 -- -- -- AST 49* -- -- -- ALT 32 -- -- -- ASSESSMENT AND PLAN: 1. LOR in the setting of high ostomy output, volume depletio n. Will continue IVF at present and monitor renal function. Jesu lujan, I have no objection to discharge tomorrow. 2. Volume depletion overall improving, I have previously dis cussed with the risk of recurrence. 3. CKD III, will need outpt f/u with Dr Lamas. 4. Anemia- multifactorial, no need for KATIE, on IV iron. SIGNATURE: Ilan Whitney, DO DATE: December 21, 2018 TIME: 4:53 PM CONSULT PROG HNO ID: [id number] Normal 12-22-19 [facility] Author: Cassandra Tobias ([id number]) Service: Gastroenterology Author Type: Physician Type: Consult Progress Note Filed: 12/21/2018 3:22 PM Note Text: GASTROENTEROLOGY CONSULT PROGRESS NOTE Patient Name: Venkata Leal SERVICE DATE: December 21, 2018 SERVICE TIME: 1:32 PM ASSESSMENT 1- High ostomy output ?- negative stool studies 2- LOR on CKD - improving 3- Hx Crohn's disease s/p resection of neoterminal ileum and ileocolonic anastomosis with diverting loop ileostomy 11/23/18 on Pentasa 4- GOMEZ cirrhosis complicated by esophageal varices, anemia, thrombocytopenia, portal hypertensive gastropathy MELD 14 5- Hx carcinoid tumor s/p small bowel resection 6- Hx exocrine pancreatic insufficiency on Creon 7- CAD (Plavix) / CKD 8- RIMA ? PLAN - Stool log - Continue Questran 4 g twice daily / Imodium 4 mg TID - Continue Balsalazide 2250 mg TID (substitute for Pentasa) - Of note patient also getting monthly octreotide injections - Await results of AFP, fecal fat, and 5-HIAA urine? - Protonix 20 mg po daily, Creon regimen - Ferrlecit 125 mg IV daily x 7 doses (12/19) - IVF - Carb control diet? - Follow renal recommendations? Patient seen and examined. Discussed with mid level provider . Harman findings confirmed. Plan as outlined. Sleeping comfortably. at bedside. Feels tired. Output h as been decreasing. Numerous questions answered. Anticipate discharg e home tomorrow with close outpatient follow up (has appt on with Dr. Teixeira) and to arrange hosp f/up with Dr. Helney. Cassandra Tobias MD December 21, 2018 3:20 PM INTERVAL HPI: at bedside. Ostomy output has slowed down quite a bit over the last 24 hours. 1850 cc output last 24 hours and 150 cc so far today. Reports some stomal pain but otherwise no abdominal p ain. No nausea or vomiting. Appetite is good. PHYSICAL EXAM: Patient Vitals for the past 24 hrs: BP Temp Temp src Pulse Resp SpO2 Weight 12/21/18 0815 117/55 36.3 ?C (97.3 ?F) Oral 90 14 100 % ? 12/21/18 0600 ? 99.9 kg (220 lb 4.8 oz) 12/20/18 2341 108/59 36.7 ?C (98.1 ?F) Oral 62 18 98 % ? 12/20/18 2022 134/63 ? ? 72 ? ? ? 12/20/18 1455 106/56 36.8 ?C (98.2 ?F) Oral 67 16 96 % ? GENERAL: Alert and oriented x 3. Appears comfortable. NAD HEENT: Mild pallor. No scleral icterus LUNGS: Clear to auscultation anteriorly CARDIAC: RRR ABDOMEN: Soft. Non distended. Non tender. Bowel sounds minna l. No guarding or rebound tenderness. Ostomy RLQ with hagan, mushy stool EXTREMITIES: No edema to JONES lower extremities MEDICATIONS: Current Facility-Administered Medications Medication Dose Route Frequency - NaCl 0.9% 3-5 mL 3-5 mL INTRAVENOUS q 12 H - ipratropium-albuterol 3 mL nebulizer solution (DUONEB) 3 m L INHALATION q 4 H PRN - ondansetron orally disintegrating 4 mg tab(s) (ZOFRAN ODT) 4 mg ORAL q 6 H PRN Or - ondansetron (PF) 4 mg injection (ZOFRAN) 4 mg INTRAVENOUS q 6 H PRN - dextrose 40 % 15 g 15 g ORAL PRN Or - glucagon 1 mg injection (GLUCAGEN) 1 mg INTRAMUSCULAR PRN Or - dextrose 50 % 12.5 g injection 12.5 g INTRAVENOUS PRN - acetaminophen 650 mg tab(s) (TYLENOL) 650 mg ORAL q 6 H NH N - gabapentin 300 mg cap(s) (NEURONTIN) 300 mg ORAL AT BEDTIM E - [START ON 12/22/2018] rosuvastatin 5 mg tab(s) (CRESTOR) 5 mg ORAL 2/WK - metoprolol tartrate (short acting) 25 mg tab(s) (LOPRESSOR ) 25 mg ORAL BID - balsalazide 2,250 mg cap(s) (COLAZAL) 2,250 mg ORAL TID - clopidogrel 75 mg tab(s) (PLAVIX) 75 mg ORAL DAILY - sertraline 100 mg tab(s) (ZOLOFT) 100 mg ORAL DAILY - DULoxetine 20 mg cap(s) (CYMBALTA) 20 mg ORAL DAILY - levothyroxine 137 mcg tab(s) (SYNTHROID) 137 mcg ORAL EDUIN Y - pantoprazole DR 20 mg tab(s) (PROTONIX) 20 mg ORAL DAILY ( 6 AM) - NaCl 0.9% iv infusion 100 mL/hr INTRAVENOUS CONTINUOUS - melatonin 3 mg tab(s) 3 mg ORAL HS PRN - insulin lispro injection (rapid acting) (HumaLOG) SUBCUTAN EOUS w MEALS - solanf-tjszglmi-vzywzst 1 capsule cap(s) (CREON 24) 1 caps ule ORAL BID w MEALS - cholestyramine 4 g packet (QUESTRAN) 4 g ORAL BID w MEALS - tamsulosin ER 0.4 mg cap(s) (FLOMAX) 0.4 mg ORAL AT BEDTIM E - dicyclomine 10 mg cap(s) (BENTYL) 10 mg ORAL QID PRN - finasteride 5 mg tab(s) (PROSCAR) 5 mg ORAL DAILY - ferric gluconate 125 mg in NaCl 0.9% 100 mL (FERRLECIT) 12 5 mg INTRAVENOUS DAILY AT 6 PM - insulin glargine 9 Units pen (long acting) (LANTUS SOLOSTA R, BASAGLAR KWIKPEN) 9 Units SUBCUTANEOUS AT BEDTIME - insulin lispro 3 Units injection (rapid acting) (HumaLOG) 3 Units SUBCUTANEOUS w MEALS - oxyCODONE IR 5 mg tab(s) (ROXICODONE) 5 mg ORAL q 6 H PRN - loperamide 4 mg cap(s) (IMODIUM) 4 mg ORAL TID LABS: CBC, Coags, BMP, Mg, Phos Recent Labs 12/21/18 0512 12/20/18 0511 12/19/18 1637 12/19/18 0538 WBC 3.57* 4.13 -- 3.16* HB 9.2* 9.9* -- 9.4* HCT 28.8* 30.3* -- 28.5* PLT 94* 110* -- 108* INR -- 1.1 -- 1.1 NA 142 142 -- 140 K 4.1 4.7 -- 4.6 CHLOR 110* 108* -- 107* CO2 22 25 -- 24 BUN 11 15 -- 21 CREAT 1.94* 2.02* -- 2.30* GLUC 117* 119* -- 118* CA 8.4* 9.1 -- 8.6 MG 1.7 1.9 2.0 2.2 P 3.2 3.0 -- 3.2 Liver Function, Amylase, AND Lipase Recent Labs 12/21/18 0512 12/20/18 0511 12/19/18 0538 TPROT 5.2* -- -- ALB 3.1* 3.3* 3.2* ALT 32 -- -- AST 49* -- -- ALKPHOS 142* -- -- TBILI 0.4 -- -- MISC LABS 06/13/2017 Liver biopsy Liver, random right lobe, biopsy ?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 See comment. COMMENT The biopsy demonstrates distorted liver architecture with ci rrhosis as highlighted on the trichrome stain. The lobular parenchyma d emonstrates mild macrovesicular steatosis representing approximately 15- 20% of the liver surface. Rare ballooned hepatocytes with Beba hyali ne and scattered foci of lobular inflammation are noted. The portal tracts show minimal chronic inflammatory infiltrates composed mainly of small mature lymphocytes without interface activity. There is minimal jones e ductular proliferation. The interlobular bile ducts are intact. Granu samina are not seen. There is no evidence of cholestasis. PAS/D stain is ne gative for alpha-1 antitrypsin inclusions. The iron stain does not reve al increased iron deposition. The findings are consistent with end-stage liver disease (ci rrhosis) with associated features of steatohepatitis. This pattern of inju ry has been associated with obesity/metabolic syndrome, diabetes mellitu s, drug-induced injury (steroids), alcohol use, total parental nutrition, Wi lson's disease, among others. ?? ? Component Latest Ref Rng AND Units 11/12/2018 Hep B Core Ab, Total Negative Negative Hep C Antibody IA Negative Negative Hep B Surface Ag Negative Negative Hep B Surface Ab, Qual Negative Negative Iron 41 - 186 ug/dL 78 TIBC 232 - 386 ug/dL 390 (H) Transferrin Saturation 15 - 57 % 20 IgA 78 - 391 mg/dL 234 Transglutaminase Ab, IgA <20 Units 8 Interpretation (Celiac Screen) No serologic evidence of neri ac disease. No serologic evidence of celiac disease. V.zoster IgG, Qual Negative Positive (A) Varicella zoster, IgG Index Value 950.5 EBV VCA IgG, Qual Negative Positive (A) EBV VCA, IgG AI >8.0 CRP <0.9 mg/dL 0.8 Ferritin 30.3 - 565.7 ng/mL 116.0 Vitamin B12 232 - 1,245 pg/mL 771 Hep A Ab, Total Negative Negative Hep B Surf Ab Quant <8.00 mIU/mL <8.00 ? ? 11/23/18 Pathology Ileocolic anastomosis, resection: - Chronic active ileitis with ulceration. - Benign lymph nodes. ? ? Component Latest Ref Rng AND Units 12/16/2018 12/17/2018 NT Pro BNP <125 pg/mL 36 ? Lactate 0.5 - 2.2 mmol/L 2.2 (H) 3.0 (H) ? Component Latest Ref Rng AND Units 12/17/2018 Iron 41 - 186 ug/dL 30 (L) TIBC 232 - 386 ug/dL 372 Transferrin Saturation 15 - 57 % 8 (L) Folate >4.7 ng/mL 6.7 Ferritin 30.3 - 565.7 ng/mL 70.6 Vitamin B12 232 - 1,245 pg/mL >2,000 (H) 12/17/18 Stool studies: FL (-). ?Cx (-). C-diff (-). ?OB (-) . OANDP (-) ? RADIOLOGY? 09/10/18 CT A/P Liver: Normal unenhanced liver. IMPRESSION: Small bowel stricture involving 4 cm segment of small bowel in the right abdomen at the small bowel anastomosis site, new since CT 03/28/2018. No metastatic disease in the abdomen or pelvis. ? 09/30/18 NM Tumor octreotide scan IMPRESSION: No areas of abnormal indium-111 uptake are seen suggest a le seth with high metastatic receptor concentration. ? 11/24/2018 KUB IMPRESSION: Lines, tubes, and devices: NG/OG tube terminates in the prox imal stomach with side-port subdiaphragmatic. Bowel: No dilated bowel. Other: Right upper quadrant surgical clips. ?Midline surgica l clement. ? 12/16/18 CXR IMPRESSION: No acute radiographic abnormality. 12/20/18 KUB IMPRESSION: Nonobstructive bowel gas pattern. ?Ileostomy in the right fl ank. ?No free intra-abdominal air. ? MOST RECENT EGD?12/15/17 with Serafin Henley MD for hx eso phageal varices - Grade I esophageal varices. - Portal hypertensive gastropathy. - Normal examined duodenum. - No specimens collected.? ? MOST RECENT COLONOSCOPY?10/16/18 with Serafin Henley MD ([facility]) for history of Crohn's disease, stricture seen on CT The colon (entire examined portion) appeared normal. Despite multiple maneuvers including pressure, changes in body position and c hanging the pediatric scope for an adult scope, I was unable to enter th e ileum Impression: ?- The entire examined colon is normal. ? SIGNATURE: Ivonne Ibarra, FIRE BOAT ENGINEER DATE: December 21, 2018 TIME: 1:32 PM cbc and differential on 2018-12-21 Abs Baso <0.03 <0.11 Normal 12-21-2018 [facility] sabrina (53702) Comment: Performed By: #### CBCDIF, B MP, HFP, MG1, PHOS ####[facility] [address] [place] [address] on [phone]#### AFP ####[facility] [address] [place], [place] [phone] Abs Zapata 0.36 <0.87 k/uL Normal 12-21-2018 [facility] (04661) Comment: Performed By: #### CBCDIF, B MP, HFP, MG1, PHOS ####[facility] [address] [place] [place] [address]#### AFP ####[facility], [place] [phone] Abs Neut 2.57 1.45-7.50 k/uL Normal 12-21-2018 [facility] (27283) Comment: Performed By: #### CBCDIF, B MP, HFP, MG1, PHOS ####[facility] [place] [address]#### AFP ####[facility] [place] [phone] Basophils/100 WBC (Bld) 0.6 % Normal 2018 [facility] (70415) Comment: Performed By: #### CBCDIF, B MP, HFP, MG1, PHOS ####[facility] [place] [address]#### AFP ####[facility] [place] [phone] Eosinophils (Bld) [#/Vol] 0.16 <0.46 k/uL Normal [facility] (27299) Comment: Performed By: #### CBCDIF, B MP, HFP, MG1, PHOS ####[facility] [address] [place] [place] [address]#### AFP ####[facility] [phone] Eosinophils/100 WBC (Bld) 4.5 % Normal [facility] (38722) Comment: Performed By: #### CBCDIF, B MP, HFP, MG1, PHOS ####[facility] [address] [place] [address]#### AFP ####[facility], [place] [phone] Erythrocyte distribution 14.6 11.5-15.0 % Normal 12-21 [facility] (03599) width (RBC) [Ratio] Comment: Performed By: #### CBCDIF, B MP, HFP, MG1, PHOS ####[address] [place] [address]#### AFP ####[place] [address], [place] [phone] Hematocrit (Bld) [Volume 28.8 39.0-51.0 % Low 12-21 [facility] (83725) fraction] Comment: Performed By: #### CBCDIF, B MP, HFP, MG1, PHOS ####[address] [place] [address]#### AFP ####[place] [address], [place] [phone] Hemoglobin (Bld) [Mass/Vol] 9.2 13.0-17.0 g/dL Low [facility] (68929) Comment: Performed By: #### CBCDIF, B MP, HFP, MG1, PHOS ####[address] [place] [address]#### AFP ####[place] [address], [place] [phone] Lymphocytes (Bld) [#/Vol] 0.46 1.00-4.00 k/uL Low [facility] (12164) Comment: Performed By: #### CBCDIF, B MP, HFP, MG1, PHOS ####[address] [place] [address]#### AFP ####[place] [address], [place] [phone] Lymphocytes/100 WBC (Bld) 12.9 % Normal [facility] (09561) Comment: Performed By: #### CBCDIF, B MP, HFP, MG1, PHOS ####[facility] [address] [place] [place] [address]#### AFP ####[place] [address], [place] [phone] MCH (RBC) [Entitic mass] 31.1 26.0-34.0 pG Normal 12-21 [facility] (25766) Comment: Performed By: #### CBCDIF, B MP, HFP, MG1, PHOS ####[address] [place] [address]#### AFP ####[place] [address], [place] [phone] MCHC (RBC) [Mass/Vol] 31.9 30.5-36.0 g/dL Normal 12-22-19 [facility] (50260) Comment: Performed By: #### CBCDIF, B MP, HFP, MG1, PHOS ####[address] [place] [address]#### AFP ####[place] [address], [place] [phone] MCV (RBC) [Entitic vol] 97.3 80.0-100.0 fL Normal 12-21 [facility] (67965) Comment: Performed By: #### CBCDIF, B MP, HFP, MG1, PHOS ####[place] [address] [place] [place] [address]#### AFP ####[place] [address], [place] [phone] Monocytes/100 WBC (Bld) 10.1 % Normal 2018 [facility] (96792) Comment: Performed By: #### CBCDIF, B MP, HFP, MG1, PHOS ####[facility] [address] [place] [address]#### AFP ####[facility], [place] [phone] Neutrophils/100 WBC (Bld) 71.9 % Normal [facility] (09124) Comment: Performed By: #### CBCDIF, B MP, HFP, MG1, PHOS ####[facility] [address] [place] [phone]#### AFP ####[facility], [place] [phone] Platelet mean volume (Bld) 12.8 9.0-12.7 fL High [facility] (39327) [Entitic vol] Comment: Performed By: #### CBCDIF, B MP, HFP, MG1, PHOS ####[address] [place] [address]#### AFP ####[facility], [place] [phone] Platelets (Bld) [#/Vol] 94 150-400 k/uL Low 2018 [facility] (35608) Comment: Result Comment: No clot dete cted. Performed By: #### CBCDIF, B MP, HFP, MG1, PHOS ####[address] [place] [address]#### AFP ####[facility], [place] [phone] RBC (Bld) [#/Vol] 2.96 4.20-6.00 m/uL Low 12-21-2018 [facility] (00877) Comment: Performed By: #### CBCDIF, B MP, HFP, MG1, PHOS ####[facility] [address] [place] [place] [phone]#### AFP ####[facility], [place] [phone] WBC (Bld) [#/Vol] 3.57 3.70-11.00 k/uL Low 12-21-2018 [facility] (84373) Comment: Performed By: #### CBCDIF, B MP, HFP, MG1, PHOS ####[facility] [address] [place] [place] [phone]#### AFP ####[facility] [place], [place] [phone] basic metabolic panl on 2018-12-21 Anion gap [Moles/Vol] 10 9-18 mmol/L Normal 12-22-19 19 [facility] (39190) Comment: Performed By: #### CBCDIF, B MP, HFP, MG1, PHOS ####[facility] [address] [place] [place] [phone]#### AFP ####[facility] [place], [place] [phone] Calcium [Mass/Vol] 8.4 8.5-10.2 mg/dL Low 12-21-2018 [facility] (28864) Comment: Performed By: #### CBCDIF, B MP, HFP, MG1, PHOS ####[facility] [address] [facility] on [place] [address]#### AFP ####[facility], [place] [phone] Chloride [Moles/Vol] 110 97-105 mmol/L High 9 [facility] (17131) Comment: Performed By: #### CBCDIF, B MP, HFP, MG1, PHOS ####[facility] [address] [place] [phone]#### AFP ####[facility] [address], [place] [phone] CO2 [Moles/Vol] 22 22-30 mmol/L Normal 12-21-2018 [facility] (23590) Comment: Performed By: #### CBCDIF, B MP, HFP, MG1, PHOS ####[facility] [address] [place] [phone]#### AFP ####[facility] [address], [place] [phone] Creatinine [Mass/Vol] 1.94 0.73-1.22 mg/dL High 12-22-19 19 [facility] (32893) Comment: Performed By: #### CBCDIF, B MP, HFP, MG1, PHOS ####[facility] [address] [facility] on [phone]#### AFP ####[facility], [place] [phone] eGFR- Amer. 42 Normal 12-21-2018 [facility] (83686) Comment: Performed By: #### CBCDIF, B MP, HFP, MG1, PHOS ####[address] on [phone]#### AFP ####[facility], [place] [phone] GFR/1.73 sq M predicted among 34 . Normal 12-21-2018 [facility] (21241) non-blacks MDRD (S/P/Bld) [Vol rate/Area] Comment: Result Comment: eGFR (Estima pratik GFR) Units of measure: mL/min/1.73 meters squared eGFR is derived from the ree xpressed MDRD Study equation using the following parameters: serum creatinine, age, gender and race. The creatinine assay has been calibrated to be traceable to [employer]. An eGFR <60 mL/min/1.73m2 fo r >3 months is consistent with chronic kidney disease. Refer to KDOQI guidelines for clinical interpretation. In patients with unstable re nal function, e.g. those with acute kidney injury, the eGFR may not accurately reflect actual GFR. Performed By: #### CBCDIF, B MP, HFP, MG1, PHOS ####[facility] [address] [facility] on [phone]#### AFP ####[facility] [address], [place] [phone] Glucose [Mass/Vol] 117 74-99 mg/dL High 12-21-2018 [facility] (61861) Comment: Result Comment: The [place] Diabetes Association (ADA) provides guidance for cutoff values for fasting glucose and random glucose. The ADA defines fasting as no caloric intake for at least 8 hours. Fas ting plasma glucose results between 100 to 125 mg/dL indicate increased risk for diabetes (prediabetes). Fasting plasma glucose resul ts greater than or equal to 126 mg/dL meet the criteria for diagnosis of diabetes. In the absence of unequivocal hyperglycemia, results should be confirmed by repeat testing. In a patient with classic s ymptoms of hyperglycemia or hyperglycemic crisis, random plasma glucose results greater than or equal to 200 mg/dL meet the criteria for diagnosis of diabetes. Reference: Standards of [facility] Care in Diabetes 2016, [place] [employer] Association. Diabetes Care. 2016.39(Suppl 1). Performed By: #### CBCDIF, B MP, HFP, MG1, PHOS ####[address] [place] [address]#### AFP ####[facility] [place], [place] [phone] Potassium [Moles/Vol] 4.1 3.7-5.1 mmol/L Normal 12-22-19 19 [facility] (40643) Comment: Performed By: #### CBCDIF, B MP, HFP, MG1, PHOS ####[address] [place] [address]#### AFP ####[facility] [address], [place] [phone] Sodium [Moles/Vol] 142 136-144 mmol/L Normal 12-21-2018 [facility] (42346) Comment: Performed By: #### CBCDIF, B MP, HFP, MG1, PHOS ####[address] [place] [address]#### AFP ####[facility] [place], [place] [phone] Urea nitrogen [Mass/Vol] 11 9-24 mg/dL Normal 12-21 [facility] (82585) Comment: Performed By: #### CBCDIF, B MP, HFP, MG1, PHOS ####[facility] [address] [facility] on [place] [address]#### AFP ####[facility] [address] [place], [place] [phone] afp on 2018-12-21 AFP <3.0 <11.0 Normal 12-21-2018 [facility] (44628) Comment: Result Comment: AFP levels < 11 ng/ml can be found in a variety of conditions, Hepatocellular Carcinoma and Non-seminomatous testicular cancer among others. Correlation with clinical picture and other test results including hist opathology and radiology, where applicable, is recommended. Result rechecked. Performed By: #### CBCDIF, B MP, HFP, MG1, PHOS ####[address] [place] [address]#### AFP ####[facility] [address] [place], [place] [phone] xr abdomen 1v supine on 2018-12-20 XR ABDOMEN 1V * * *Final Report* * * Normal [facility] SUPINE DATE OF EXAM: Dec 20 2018 10:29AM ([id number]) MDX [id number] - XR ABDOMEN 1V SUPINE / PROCEDURE REASON: Abd pain, unspecified * * * * Physician Interpretation * * * * EXAMINATION: XR ABDOMEN 1V SUPINE CLINICAL HISTORY: Abdominal pain TECHNIQUE: 2 views of the abdomen. COMPARISON: Radiograph of the abdomen 11/24/2018 and prior s drake RESULT: as impression IMPRESSION: Nonobstructive bowel gas pattern. Ileostomy in the right fla nk. No free intra-abdominal air. Pelvic phleboliths. Right upper quadrant cholecystectomy cli ps. Degenerative changes more prominent at the lower lumbar spin e and hip joints.. Chemist Instrumentation: MARTIN Transcribe Date/Time: Dec 20 2018 10:45A Dictated by : YANG GHOSH MD This examination was interpreted and the report reviewed and electronically signed by: YANG GHOSH MD on Dec 20 2018 10:49AM EST [id number] urinalysis on 12-20 Bilirubin, Urine Negative Negative Normal 12-20-2018 [facility] (14696) Comment: Performed By: #### CBCDIF, P T, PTT, CK, CMP, LIPA, MG1 #### [facility] [address] [facility] [phone] Clarity (U) Clear Clear Normal 12-20-2018 [facility] (29625) Comment: Performed By: #### CBCDIF, P T, PTT, CK, CMP, LIPA, MG1 #### [facility] [address] [facility] [phone] Color (U) Yellow Yellow Normal 12-20-2018 [facility] (54053) Comment: Performed By: #### CBCDIF, P T, PTT, CK, CMP, LIPA, MG1 #### [facility] [address] [facility] [phone] Glucose Ql (U) Negative Negative Normal 12-20-2018 [facility] (50264) Comment: Performed By: #### CBCDIF, P T, PTT, CK, CMP, LIPA, MG1 #### [facility] [address] [facility] [phone] Hemoglobin/Blood,Ur Negative Negative Normal 12-20-2018 [facility] (80118) Comment: Performed By: #### CBCDIF, P T, PTT, CK, CMP, LIPA, MG1 #### [facility] [address] [facility] [phone] Ketones Ql (U) Negative Negative Normal 12-20-2018 [facility] (28515) Comment: Performed By: #### CBCDIF, P T, PTT, CK, CMP, LIPA, MG1 #### [facility] [address] [facility] [phone] Leukest Negative Negative Normal 12-20-2018 [facility] (89699) Comment: Performed By: #### CBCDIF, P T, PTT, CK, CMP, LIPA, MG1 #### [facility] [address] [facility] [phone] Nitrite Ql (U) Positive Negative Critically abnormal 12-20 [facility] (43572) Comment: Performed By: #### CBCDIF, P T, PTT, CK, CMP, LIPA, MG1 #### [facility] [address] [place], [place] [phone] pH (Bld) 6.0 5.0-8.0 Normal 12-20-2018 [place] Canelo bennett (71805) Comment: Performed By: #### CBCDIF, P T, PTT, CK, CMP, LIPA, MG1 #### [facility] [address] [place] [address] Protein (U) [Mass/Vol] Negative Negative mg/dL Normal [address] [place] [address] (07451) Comment: Performed By: #### CBCDIF, P T, PTT, CK, CMP, LIPA, MG1 #### [facility] [address] [place] [address] Specific Horner, Ur 1.020 1.001-1.[address] [place] [address] (83002) Comment: Performed By: #### CBCDIF, P T, PTT, CK, CMP, LIPA, MG1 #### [facility] [address] [place] [address] Urobilinogen Qn (U) 0.2 0.2-1.0 Normal 12-20-2018 [facility] (20914) Comment: Performed By: #### CBCDIF, P T, PTT, CK, CMP, LIPA, MG1 #### [facility] [address] [place], [place] [phone] therapy nt on 12-20 THERAPY NT HNO ID: [id number] Normal 12-20-2018 [place] Author: Caprice (Pt) [facility] Service: Physical Therapy (66840) Author Type: Physical Therapist Type: Therapy (PT/OT/Speech/Resp) Filed: 12/20/2018 9:22 AM Note Text: Physical Therapy Evaluation SERVICE DATE: 12/20/2018 SERVICE TIME: 819 to 854 ROOM: [place] [address] Recommended Discharge Disposition: Home PT Recommended Discharge Disposition Comments: Pt would benefit from further skilled therapy to address all functional limitations to all ow pt to return to [facility] Anticipated Discharge Needs: Physical Assist at Home;Supervi seth at Home Physical Assist at Home for: Cleaning;Laundry;Meals;Medicati on Management;Stairs;Safety;Self Care;Shopping;Transportation Supervision at Home due to: Other: See Comment(multiple rece nt hospitalizations ) Recommended Discharge Equipment: No equipment needs anticipa pratik PT Recommendations to Nursing: Ambulate with device;To bathr oom;Transfer to/from chair;OOB for Meals;Sit at edge of bed;With assist o f 1 person Device: Wheeled Walker PT 6 Clicks Score: 20 Precautions/Activity Restrictions: Fall Risk;Lines/Tubes/Lisa ins Precaution/Activity Restriction Comments: R side ostomy ASSESSMENT : Patient presents with decreased strength, decreased function al mobility, fall risk due to multiple recent hospitalizations, pain, lig htheaded/dizzy and assist with discharge planning needs. Requires skilled P T to address BLE weakness, increase functional mobility, increase safety awareness with all functional mobility and assist with discharge planning n eeds. Pt reports having surgery ~3 weeks ago for a resection and R si ded Ostomy placement which he then became dehydrated and fell. Pt compl eted all functional mobility at a SBA level but was unable to ambulat e further than bedside chair due to c/o feeling lightheaded/dizzy. Anticipa te pt will be appropriate for home going with 24 hour assist from and sister (who is an RN) with Home PT. Patient Disposition at Start of Session: Supine in Bed;Call Leo in Reach;SCDs(RN and pt agreeable to PT eval ) Patient Disposition at End of Session: OOB in Chair;Call Bel l in Reach;Family Present(RN notified; gait belt used ) Tolerance Limited By Physiologic Response Physical Therapy Problem List: Education Deficit;Pain;Decrea sed Activity Tolerance;Decreased Strength;Functional Mobility Impairment; Balance Impaired Patient /Caregiver Goals: Go Home Goals for Plan of Care: Able to perform HEP with: Independent(BLE 2x15 reps to incre ase strength to assist with transfers ) Transfer supine to/from sit with: Modified Independent Transfer sit to/from stand with: Modified Independent Ambulate with: Supervision Distance: 100-150 Device: Wheeled Walker;Rollator Ambulate up and down steps with: Stand By Assistance Number of steps: 3 Device: Rail Progress Toward Goals: Progressing as expected Rehab Potential: Good PLAN: Treatment Frequency (times per week): 4 Current admission Treatment Interventions: Education;Strengthening;Functional Mobility Training;Balance Training;Neuromuscular Re-education Plan of Care developed with: Patient;Caregiver;Family TREATMENT INTERVENTIONS: Therapy Diagnosis: Reduced mobility-other Interventions Provided: Evaluation;Gait Training (03290) $ Evaluation-Low (20449) Billed Units: 1 unit Gait Training (83171) Treatment Minutes: 10 1 unit Skilled Intervention(s): Instruction in sit to stand techniq ue with proper hand placement and body positioning at edge of bed/chair, In struction in stand to sit technique with LE's touching chair/bed and reac raffi back for surface, Instruction in sequencing, gait pattern, Instructio n in use of equipment, cues for sequence and pattern and discussed disch arge recommendations with pt, pts and sister at length and r ecommendations for increasing activity while in the hospital with assistanc e from hospital staff. Total Timed Code Treatment Minutes: 10 Total Treatment Time (minutes): 35 SUBJECTIVE: Current Hospital Course: Chart reviewed; syncope/fall, hypov olemic LOR Reason for Physical Therapy Consult : safety assessment Relevant Past Medical History: HTN, DM, CAD, HPL, PVD, TIA, hypothyroidism, bladder CA, cirrhosis, varices, ascites, Chr ohns Patient Report: Pt stated that he was working with PT at [facility] prior to this admission to the hospital. Home Environment Patient Lives With: Spouse(one level home ) Assistance Available: 24 Hour Entry To Home: Stairs;With Rail Number Of Stairs Into Home: 3 Number Of Stairs To Bed/Bath: 0 Tub/Shower Type: tub Laundry: Main level- completes Equipment Owned: Cane;Rollator;Shower Chair;Wheelchair;Hospi tracie Bed Prior Functional Level: Within Functional Limits;History of Falls Prior Functional Level Comments: amb with rollator or cane o utside home, Indep with ADLs and completes IADLs OBJECTIVE: CURRENT FUNCTIONAL STATUS: Current Functional Mobility Assist Level Additional Informat ion Rolling Stand By Assistance Supine to Sit Stand By Assistance(with HOB elevated 30 degre es) Partial log roll/partial long sitting to sit EOB Sit to Supine (pt remained up in bedside chair ) Scooting Stand By Assistance Sit to Stand Stand By Assistance Cues to push from bed Stand to Sit Stand By Assistance Cues for hand placement and sequencing for safety due to c/o feeling lightheaded Bed to Chair Toilet/Commode Gait Stand By Assistance Gait Device: Wheeled Walker Gait Distance (feet): 4 pt unable to ambulate further due to c/o lightheaded/dizzy Stairs (not appropriate at this time ) Curb Step Car Transfer General Gait Deviations: Priya decreased;Narrow Base of Angel pport Range of Motion: WFL Strength: (BLE grossly 4/5 throughout ) Balance: Static Sitting;Dynamic Sitting;Static Standing;Susanna yo Standing Static Sitting Balance: Normal Able to maintain balance agai nst maximal resistance Dynamic Sitting Balance: Good Able to sit unsupported AND we ight shift across midline moderately Static Standing Balance: Good- / Fair+ Able to maintain laura ding balance against minimal resistance Dynamic Standing Balance: Fair Stand independently unsupport ed, weight shift, and reach ipsilaterally, LOB when crossing midline JH-HLM: 4: Move to chair / commode Please see discipline specific clinical documentation [facility] eet for complete details for this therapy evaluation/treatment. SIGNATURE: Caprice Dowd PT PATIENT NAME: Venkata Leal DATE: December 20, 2018 TIME: 9:14 AM renal function panel on 2018-12-20 Albumin [Mass/Vol] 3.3 3.9-4.9 g/dL Low 12-20-2018 [facility] ([id number]) Comment: Performed By: #### CBCDIF, P T, PTT, CK, CMP, LIPA, MG1 #### [facility] [address] [place] [address] Anion gap [Moles/Vol] 9 9-18 mmol/L Normal 12-21-19 [facility] ([id number]) Comment: Performed By: #### CBCDIF, P T, PTT, CK, CMP, LIPA, MG1 #### [facility] [address] [place] [address] Calcium [Mass/Vol] 9.1 8.5-10.2 mg/dL Normal 12-20-2018 [facility] ([id number]) Comment: Performed By: #### CBCDIF, P T, PTT, CK, CMP, LIPA, MG1 #### [facility] [address] [facility] [phone] Chloride [Moles/Vol] 108 97-105 mmol/L High 9 [facility] ([id number]) Comment: Performed By: #### CBCDIF, P T, PTT, CK, CMP, LIPA, MG1 #### [facility] [address] [facility] [phone] CO2 [Moles/Vol] 25 22-30 mmol/L Normal 12-20-2018 [facility] ([id number]) Comment: Performed By: #### CBCDIF, P T, PTT, CK, CMP, LIPA, MG1 #### [facility] [address] [facility] [phone] Creatinine [Mass/Vol] 2.02 0.73-1.22 mg/dL High 12-21-19 19 [facility] ([id number]) Comment: Performed By: #### CBCDIF, P T, PTT, CK, CMP, LIPA, MG1 #### [facility] [address] [facility] [phone] eGFR- Amer. 40 Normal 12-20-2018 [facility] ([id number]) Comment: Performed By: #### CBCDIF, P T, PTT, CK, CMP, LIPA, MG1 #### [facility] [address] [facility] [phone] GFR/1.73 sq M predicted among 33 . Normal 12-20-2018 [facility] ([id number]) non-blacks MDRD (S/P/Bld) [Vol rate/Area] Comment: Result Comment: eGFR (Estima pratik GFR) Units of measure: mL/min/1.73 meters squared eGFR is derived from the ree xpressed MDRD Study equation using the following parameters: serum creatinine, age, gender and race. The creatinine assay has been calibrated to be traceable to IDMS. An eGFR <60 mL/min/1.73m2 fo r >3 months is consistent with chronic kidney disease. Refer to KDOQI guidelines for clinical interpretation. In patients with unstable re nal function, e.g. those with acute kidney injury, the eGFR may not accurately reflect actual GFR. Performed By: #### CBCDIF, P T, PTT, CK, CMP, LIPA, MG1 #### [facility] [address] [facility] [phone] Glucose [Mass/Vol] 119 74-99 mg/dL High 12-20-2018 [facility] ([id number]) Comment: Result Comment: The [place] [employer] (ADA) provides guidance for cutoff values for fasting glucose and random glucose. The ADA defines fasting as no caloric intake for at least 8 hours. Fas ting plasma glucose results between 100 to 125 mg/dL indicate increased risk for diabetes (prediabetes). Fasting plasma glucose resul ts greater than or equal to 126 mg/dL meet the criteria for diagnosis of diabetes. In the absence of unequivocal hyperglycemia, results should be confirmed by repeat testing. In a patient with classic s ymptoms of hyperglycemia or hyperglycemic crisis, random plasma glucose results greater than or equal to 200 mg/dL meet the criteria for diagnosis of diabetes. Reference: Standards of [facility] Care in Diabetes 2016, [place] [employer] Association. Diabetes Care. 2016.39(Suppl 1). Performed By: #### CBCDIF, P T, PTT, CK, CMP, LIPA, MG1 #### [facility] [address] [place] [address] Phosphate [Mass/Vol] 3.0 2.7-4.8 mg/dL Normal 9 [facility] ([id number]) Comment: Performed By: #### CBCDIF, P T, PTT, CK, CMP, LIPA, MG1 #### [facility] [address] [place], [place] [address] Potassium [Moles/Vol] 4.7 3.7-5.1 mmol/L Normal 12-21-19 19 [facility] (13084) Comment: Performed By: #### CBCDIF, P T, PTT, CK, CMP, LIPA, MG1 #### [facility] [address] [place] [address] Sodium [Moles/Vol] 142 136-144 mmol/L Normal 12-20-2018 [facility] ([id number]) Comment: Performed By: #### CBCDIF, P T, PTT, CK, CMP, LIPA, MG1 #### [facility] [address] [place], [place] [address] Urea nitrogen [Mass/Vol] 15 9-24 mg/dL Normal 12-20 [facility] ([id number]) Comment: Performed By: #### CBCDIF, P T, PTT, CK, CMP, LIPA, MG1 #### [facility] [address] [facility] [phone] protime on PT Coag (PPP) [Time] 1.1 0.9-1.[address] s Normal [address] [place] [address] ([id number]) Comment: Result Comment: Vitamin K An tagonist (VKA) Therapeutic Range: INR 2 to 3 (Target INR of 2.5) Note: For patients treated w ith VKA drugs, such as warfarin, the [place] [employer] 2012 Guideline recommends a therapeutic INR range of 2 to 3 (target INR of 2.5). This recommendation includes high-risk patients with antiphospholipid syndrome with previous arterial or venous thromboembolism, current-generation mechanical or bioprosthetic aortic heart valve replacement. Note: Patients with heavy duty mechanic al aortic valve replacement and additional risk factors for thromboembolic events (atrial fibrillation, previous thromboembolism, LV dysfunction, hypercoagulable conditions) or an older generation mecha nical AVR (i.e., ball in-Cage) or any mechanical MVR should have a INR therapeutic range of 2.5 to 3.5 (target INR of 3). Sawyer EDMONDSON, et al. Chest 2012 , 141:7S-47S Kathy RA, et al. JACC 20 17, 70: 252-289 Performed By: #### CBCDIF, P T, PTT, CK, CMP, LIPA, MG1 #### [facility] [address] [facility] [phone] PT Coag (PPP) [Time] 11.7 9.7-13.0 sec Normal 9 [facility] ([id number]) Comment: Performed By: #### CBCDIF, P T, PTT, CK, CMP, LIPA, MG1 #### [facility] [address] [facility] [phone] progress on 2018-12 PROGRESS HNO ID: [id number] Normal 12-20-2018 [facility] Author: Karl Holden ([id number]) Service: Hospital Medicine Author Type: Physician Type: Progress Notes Filed: 12/20/2018 8:51 AM Note Text: DEPARTMENT OF HOSPITAL MEDICINE PROGRESS NOTE CC: F/u LOR and high ostomy output HPI: Had worsened abdominal pain last night requiring increa sed freq. of oxycodone. No nausea vomiting. Review of Systems Respiratory: Negative for shortness of breath. Cardiovascular: Negative for chest pain. Gastrointestinal: Negative for abdominal pain. Exam: BP 124/63 Pulse 67 Temp 36.6 ?C (97.9 ?F) (Oral) Resp 16 Ht 175.3 cm (5' 9) Wt 99.9 kg (220 lb 3.8 oz) SpO2 97% B WA 32.52 kg/m? Physical Exam Constitutional: He is oriented to person, place, and time. N o distress. HENT: Head: Normocephalic. Eyes: EOM are normal. Cardiovascular: Normal rate and regular rhythm. Pulmonary/Chest: Effort normal and breath sounds normal. Abdominal: Soft. He exhibits distension. There is no tendern ess. Right sided ostomy. Healing lap scars from surgery prior to admission Musculoskeletal: He exhibits no edema. Neurological: He is alert and oriented to person, place, and time. Skin: Skin is warm. He is not diaphoretic. Skin tear 1 cm right knee Psychiatric: He has a normal mood and affect. 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 Currently, Nephrology following LOR and IVF replacement dosi ng and GI/Surgery ordering additional diagnostic tests for evaluati ng the high ostomy output and trialing medications to normalize output. Will await clearance by nephro/GI/Surgery to transition home when ready or if alternative dispo plan exists. Awaiting PT/OT assessments . Will plan to go home on lantus/lispro instead of mix insulin and at a reduced overall TDD of insulin compared to admission. [place] t coverage checked and excellent. Given increased abd pain today, will increase freq of oxycod one from home BID to QID PRN and also order KUB. Plan: Active Hospital Problems Diagnosis Date Noted - High output ileostomy (HCC) 12/17/2018 Assessment AND Plan Note: See plan above. Appears to be improving with loperamide and bile acid sequestrant - Obesity, Class I, BMI 30-34.9 12/17/2018 - 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) 12/09/2017 Assessment AND Plan Note: stable - Crohn's disease of small intestine with intestinal obstruc tion ([facility]) 04/02/2017 Assessment AND Plan Note: Stable. Continue home medications + loperamide - Chronic diastolic heart failure ([facility]) 05/03/2016 Assessment AND Plan Note: stable - Acute renal failure superimposed on stage 3 chronic kidney disease ([facility]) 05/03/2016 Assessment AND Plan Note: Improving. 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 Switched from mix insulin to lantus/lispro. [employer] coverage checked by Dr. Holden and excellent drug coverage of pen versi ons - Carcinoid tumor 12/27/2010 Assessment AND Plan Note: S/p surgical therapy ~2010 - CAD (coronary artery disease) Assessment AND Plan Note: stable - Peripheral vascular disease, unspecified ([facility]) 01/31/2005 Assessment AND Plan Note: Stable. No claudication reported VTE Prophylaxis: SCD Plan of Care visit Complete: yes SIGNATURE: Karl Holden MD Work Cell #: [phone] DATE: December 18, 2018 TIME: 9:49 AM nursing prog on 10-28-02 NURSING HNO ID: [id number] Normal 12-20-2018 [facility] Author: Deirdre (Rn) [facility] Service: Nursing ([id number]) Author Type: Registered Nurse Type: Nursing Progress Note Filed: 12/20/2018 3:12 AM Note Text: Nursing Progress Note Patient Name: Venkata Leal Patient Location: [facility] [id number] Pt c/o severe (08/26) incisional pain (abdomen, ostomy s ite). Pt describes pain as throbbing; denies abdominal cramping. Pt n ot wanting tylenol as he feels it is not effective enough for the pain. PRN oxycodone given per APR. Spoke with hospitalist regarding pain medicat ion orders; orders updated to provide for severe pain. This note was completed by: Deirdre Brown RN magnesium on 2018-02 Magnesium [Mass/Vol] 1.9 1.7-2.3 mg/dL Normal 9 [facility] ([id number]) Comment: Performed By: #### CBCDIF, P T, PTT, CK, CMP, LIPA, MG1 #### [facility] [address] [facility] [phone] consult prog on 10-28-02 CONSULT PROG HNO ID: [id number] Normal 12-21-19 [facility] Author: Ilan Whitney ([id number]) Service: Nephrology Author Type: Physician Type: Consult Progress Note Filed: 12/20/2018 2:09 PM Note Text: INPATIENT CONSULT PROGRESS NOTES Patient Name: Venkata Leal DATE of SERVICE: December 20, 2018 TIME of SERVICE: 1:33 PM CONSULTING SERVICE: Nephrology INTERVAL HPI: Patient with stoma pain last evening, improved today. He states he was able to get up to the chair this am and did vines ve some dizziness. This was the first time OOB since Friday. PERTINENT ROS: REVIEW OF SYSTEMS GENERAL: no fever or chills RESPIRATORY: denies dyspnea, cough CARDIOVASCULAR: denies chest pain, edema : No history of dysuria, frequency or incontinence All other reviewed and negative other than HPI. MEDICATIONS: Current Facility-Administered Medications Medication Dose Route Frequency - NaCl 0.9% 3-5 mL 3-5 mL INTRAVENOUS q 12 H - ipratropium-albuterol 3 mL nebulizer solution (DUONEB) 3 m L INHALATION q 4 H PRN - ondansetron orally disintegrating 4 mg tab(s) (ZOFRAN ODT) 4 mg ORAL q 6 H PRN Or - ondansetron (PF) 4 mg injection (ZOFRAN) 4 mg INTRAVENOUS q 6 H PRN - dextrose 40 % 15 g 15 g ORAL PRN Or - glucagon 1 mg injection (GLUCAGEN) 1 mg INTRAMUSCULAR PRN Or - dextrose 50 % 12.5 g injection 12.5 g INTRAVENOUS PRN - acetaminophen 650 mg tab(s) (TYLENOL) 650 mg ORAL q 6 H [facility] N - gabapentin 300 mg cap(s) (NEURONTIN) 300 mg ORAL AT BEDTIM E - [START ON 12/22/2018] rosuvastatin 5 mg tab(s) (CRESTOR) 5 mg ORAL 2/WK - metoprolol tartrate (short acting) 25 mg tab(s) (LOPRESSOR ) 25 mg ORAL BID - balsalazide 2,250 mg cap(s) (COLAZAL) 2,250 mg ORAL TID - clopidogrel 75 mg tab(s) (PLAVIX) 75 mg ORAL DAILY - sertraline 100 mg tab(s) (ZOLOFT) 100 mg ORAL DAILY - DULoxetine 20 mg cap(s) (CYMBALTA) 20 mg ORAL DAILY - levothyroxine 137 mcg tab(s) (SYNTHROID) 137 mcg ORAL EDUIN Y - pantoprazole DR 20 mg tab(s) (PROTONIX) 20 mg ORAL DAILY ( 6 AM) - NaCl 0.9% iv infusion 100 mL/hr INTRAVENOUS CONTINUOUS - melatonin 3 mg tab(s) 3 mg ORAL HS PRN - insulin lispro injection (rapid acting) (HumaLOG) SUBCUTAN EOUS w MEALS - dhzsou-ojuhfpcr-ippumcc 1 capsule cap(s) (CREON 24) 1 caps ule ORAL BID w MEALS - cholestyramine 4 g packet (QUESTRAN) 4 g ORAL BID w MEALS - tamsulosin ER 0.4 mg cap(s) (FLOMAX) 0.4 mg ORAL AT BEDTIM E - dicyclomine 10 mg cap(s) (BENTYL) 10 mg ORAL QID PRN - finasteride 5 mg tab(s) (PROSCAR) 5 mg ORAL DAILY - ferric gluconate 125 mg in NaCl 0.9% 100 mL (FERRLECIT) 12 5 mg INTRAVENOUS DAILY AT 6 PM - insulin glargine 9 Units pen (long acting) (LANTUS SOLOSTA R, BASAGLAR KWIKPEN) 9 Units SUBCUTANEOUS AT BEDTIME - insulin lispro 3 Units injection (rapid acting) (HumaLOG) 3 Units SUBCUTANEOUS w MEALS - oxyCODONE IR 5 mg tab(s) (ROXICODONE) 5 mg ORAL q 6 H PRN - loperamide 4 mg cap(s) (IMODIUM) 4 mg ORAL TID PHYSICAL EXAM: Patient Vitals for the past 24 hrs: BP Temp Temp src Pulse Resp SpO2 12/20/18 0807 ? ? ? 67 ? 97 % 12/20/18 0711 124/63 36.6 ?C (97.9 ?F) Oral 68 16 ? 12/19/18 2343 116/56 36.7 ?C (98.1 ?F) Oral 61 16 98 % 12/19/18 2036 117/61 ? ? 72 ? ? 12/19/18 1500 117/60 36.5 ?C (97.7 ?F) Oral (!) 58 16 98 % Body mass index is 32.52 kg/m?. Intake/Output Summary (Last 24 hours) at 12/20/2018 1333 Last data filed at 12/20/2018 1230 Gross per 24 hour Intake 3797 ml Output 3550 ml Net 247 ml GENERAL: Alert, no distress, cooperative LUNGS: Lungs clear to auscultation, Good diaphragmatic excur seth CARDIAC: Normal S1 and S2; no rubs, murmurs, or gallops, dis tant heart sounds ABDOMEN: ostomy with brown drainage present, round EXTREMITIES: without edema SKIN: without rashes or lesions NEURO: sensation intact PSYCH: pleasant, responds appropriately The remainder of the physical exam is noncontributory. DATA: Recent Labs 12/20/18 0511 12/19/18 1637 12/19/18 0538 12/18/18 0503 WBC 4.13 -- 3.16* 3.04* HB 9.9* -- 9.4* 9.3* HCT 30.3* -- 28.5* 29.1* PLT 110* -- 108* 118* NA 142 -- 140 140 K 4.7 -- 4.6 4.8 CHLOR 108* -- 107* 105 CO2 25 -- 24 23 CREAT 2.02* -- 2.30* 2.74* BUN 15 -- 21 30* GLUC 119* -- 118* 113* P 3.0 -- 3.2 3.4 ALB 3.3* -- 3.2* 3.3* MG 1.9 2.0 2.2 1.5* CA 9.1 -- 8.6 8.8 ASSESSMENT AND PLAN: 1. LOR in the setting of high ostomy output, volume depletio n. Will continue IVF at present and monitor renal function. Jesu mohr 2. Volume depletion 3. CKD III 4. Anemia- multifactorial, no need for KATIE, on IV iron SIGNATURE: Alysia Mackey NP DATE: December 20, 2018 TIME: 1:33 PM The pt was independently seen and examined. I discussed with patient and at bedside. He is progressing the right direction and m eds are being adjusted in an attempt to slow down the high output ostomy. I doubt he will need any further diuretics (was on as outpt). CONSULT PROG HNO ID: [id number] Normal 12-21-[address] [place] [address] Author: Cassandra Tobias ([id number]) Service: Gastroenterology Author Type: Physician Type: Consult Progress Note Filed: 12/20/2018 12:31 PM Note Text: GASTROENTEROLOGY CONSULT PROGRESS NOTE Patient Name: Venkata Leal SERVICE DATE: December 20, 2018 SERVICE TIME: 8:43 AM ASSESSMENT 1- High ostomy output - negative stool studies 2- LOR / electrolyte abnormalities- improving 3- Hx Crohn's disease s/p resection of neoterminal ileum and ileocolonic anastomosis with diverting loop ileostomy 11/23/18 on Pentasa 4- GOMEZ cirrhosis complicated by esophageal varices, anemia, thrombocytopenia, portal hypertensive gastropathy 5- Hx carcinoid tumor s/p small bowel resection 6- Hx exocrine pancreatic insufficiency on Creon 7- CAD (Plavix) / CKD 8- RIMA ? PLAN - F/U KUB as ordered per IM - Stool log - F/U stool for fecal fat and urine for 5-HIAA - Continue Questran 4 grams BID (12/17) - Increase Imodium to 4 mg TID - Continue balsalazide 2250 mg po TID (substitution for Pent asa) - Protonix 20 mg po daily - Continue Creon as home regimen - Ferrlecit 125 mg IV daily x 7 doses (12/19) - IVF - Carb control diet? - Monitor daily labs. Check LFTs in am. - Check AFP for HCC surveillance (imaging will be due in Feb) - Follow renal recs - Further recommendations pending patient's clinical course and above evaluation? Patient seen and examined. Discussed with mid level provider . Harman findings confirmed. Plan as outlined. Sleeping comfortably. Pain at surgical site at baseline. Had worsening output yesterday after meals. KUB shows nonobstructive bowel gas pattern. Imodium increased. He does get monthly shots of ocrteotide. Cassandra Tobias MD December 20, 2018 12:29 PM INTERVAL HPI: Worsened ostomy output yesterday with total 22 00 ml out (1475 ml out on 12/18). Output worse after breakfast and dinn er. Reports surgical abdominal pain without nausea or vomiting. Renal fu nction continue to improve. PHYSICAL EXAM: Patient Vitals for the past 24 hrs: BP Temp Temp src Pulse Resp SpO2 12/20/18 0807 ? ? ? 67 ? 97 % 12/20/18 0711 124/63 36.6 ?C (97.9 ?F) Oral 68 16 ? 12/19/18 2343 116/56 36.7 ?C (98.1 ?F) Oral 61 16 98 % 12/19/18 2036 117/61 ? ? 72 ? ? 12/19/18 1500 117/60 36.5 ?C (97.7 ?F) Oral (!) 58 16 98 % GENERAL: Alert AND oriented x 3. Cooperative. NAD EYES: No scleral icterus SKIN: Pale?in color. No jaundice LUNGS: Clear to auscultation CARDIAC: RRR ABDOMEN: BS x 4. Abdomen?obese but?soft, mild RLQ TTP, non d istended, no palpable masses or organomegaly. No guarding or rebound tend erness elicited. Ileostomy to right abdomen with red beefy stoma an d brown liquid output in bag. EXTREMITIES:?No edema BLE LABS: CBC, Coags, BMP, Mg, Phos Recent Labs 12/20/18 0511 12/19/18 1637 12/19/18 0538 12/18/18 0503 WBC 4.13 -- 3.16* 3.04* HB 9.9* -- 9.4* 9.3* HCT 30.3* -- 28.5* 29.1* PLT 110* -- 108* 118* INR 1.1 -- 1.1 1.1 NA 142 -- 140 140 K 4.7 -- 4.6 4.8 CHLOR 108* -- 107* 105 CO2 25 -- 24 23 BUN 15 -- 21 30* CREAT 2.02* -- 2.30* 2.74* GLUC 119* -- 118* 113* CA 9.1 -- 8.6 8.8 MG 1.9 2.0 2.2 1.5* P 3.0 -- 3.2 3.4 Liver Function, Amylase, AND Lipase Recent Labs 12/20/18 0511 12/19/18 0538 12/18/18 0503 ALB 3.3* 3.2* 3.3* MEDICATIONS: Current Facility-Administered Medications Medication Dose Route Frequency - NaCl 0.9% 3-5 mL 3-5 mL INTRAVENOUS q 12 H - ipratropium-albuterol 3 mL nebulizer solution (DUONEB) 3 m L INHALATION q 4 H PRN - ondansetron orally disintegrating 4 mg tab(s) (ZOFRAN ODT) 4 mg ORAL q 6 H PRN Or - ondansetron (PF) 4 mg injection (ZOFRAN) 4 mg INTRAVENOUS q 6 H PRN - dextrose 40 % 15 g 15 g ORAL PRN Or - glucagon 1 mg injection (GLUCAGEN) 1 mg INTRAMUSCULAR PRN Or - dextrose 50 % 12.5 g injection 12.5 g INTRAVENOUS PRN - acetaminophen 650 mg tab(s) (TYLENOL) 650 mg ORAL q 6 H NH N - gabapentin 300 mg cap(s) (NEURONTIN) 300 mg ORAL AT [facility] E - [START ON 12/22/2018] rosuvastatin 5 mg tab(s) (CRESTOR) 5 mg ORAL 2/WK - metoprolol tartrate (short acting) 25 mg tab(s) (LOPRESSOR ) 25 mg ORAL BID - balsalazide 2,250 mg cap(s) (COLAZAL) 2,250 mg ORAL TID - clopidogrel 75 mg tab(s) (PLAVIX) 75 mg ORAL DAILY - sertraline 100 mg tab(s) (ZOLOFT) 100 mg ORAL DAILY - DULoxetine 20 mg cap(s) (CYMBALTA) 20 mg ORAL DAILY - levothyroxine 137 mcg tab(s) (SYNTHROID) 137 mcg ORAL EDUIN Y - pantoprazole DR 20 mg tab(s) (PROTONIX) 20 mg ORAL DAILY ( 6 AM) - NaCl 0.9% iv infusion 100 mL/hr INTRAVENOUS CONTINUOUS - melatonin 3 mg tab(s) 3 mg ORAL HS PRN - insulin lispro injection (rapid acting) (HumaLOG) SUBCUTAN EOUS w MEALS - ivblwd-hulfxmjy-tfrdnuz 1 capsule cap(s) (CREON 24) 1 caps ule ORAL BID w MEALS - cholestyramine 4 g packet (QUESTRAN) 4 g ORAL BID w MEALS - tamsulosin ER 0.4 mg cap(s) (FLOMAX) 0.4 mg ORAL AT BEDTIM E - dicyclomine 10 mg cap(s) (BENTYL) 10 mg ORAL QID PRN - finasteride 5 mg tab(s) (PROSCAR) 5 mg ORAL DAILY - ferric gluconate 125 mg in NaCl 0.9% 100 mL (FERRLECIT) 12 5 mg INTRAVENOUS DAILY AT 6 PM - loperamide 2 mg cap(s) (IMODIUM) 2 mg ORAL QID - oxyCODONE IR 5-10 mg tab(s) (ROXICODONE) 5-10 mg ORAL q 6 H PRN - insulin glargine 9 Units pen (long acting) (LANTUS SOLOSTA R, ANGELICA MUNSON) 9 Units SUBCUTANEOUS AT BEDTIME - insulin lispro 3 Units injection (rapid acting) (HumaLOG) 3 Units SUBCUTANEOUS w MEALS Component Latest Ref Rng AND Units 03/26/2018 05/01/2018 019 11/23/2018 11/25/2018 11/26/2018 11/26/2018 11/27/2018 11/28/20182018 ?1:04 AM ?9:38 PM ? ? ? Hemoglobin 13.0 - 17.0 g/dL 13.1 12.6 (L) 13.3 8.4 (L) 9.5 ( L) 7.9 (L) 8.6 (L) 9.0 (L) 9.1 (L) 8.4 (L) Hematocrit 39.0 - 51.0 % 39.4 38.2 (L) 41.0 25.0 (L) 27.8 (L ) 23.8 (L) 25.9 (L) 27.6 (L) 27.4 (L) 25.4 (L) MCV 80.0 - 100.0 fL 99.2 101.9 (H) 100.7 (H) 99.6 97.2 98.8 100.0 100.0 98.2 97.3 MCH 26.0 - 34.0 pG 33.0 33.6 32.7 33.5 33.2 32.8 33.2 32.6 3 2.6 32.2 MCHC 30.5 - 36.0 g/dL 33.2 33.0 32.4 33.6 34.2 33.2 33.2 32. 6 33.2 33.1 RDW-CV 11.5 - 15.0 % 14.6 15.4 (H) 14.8 14.6 15.3 (H) 15.6 ( H) 15.4 (H) 15.4 (H) 15.3 (H) 15.4 (H) Platelet Count 150 - 400 k/uL 126 (L) 123 (L) 142 (L) 131 (L ) 111 (L) 96 (L) 121 (L) 149 (L) 154 148 (L) ? Component Latest Ref Rng AND Units 09/19/2016 10/23/2016 017 03/12/2017 06/09/2017 10/02/2017 01/02/2018 04/21/2018 05/19/2018 08/11/201811/12/2018 Bilirubin, Total 0.2 - 1.3 mg/dL 0.8 0.3 0.5 0.6 0.5 0.4 0.4 0.4 0.5 0.4 0.5 0.5 Alkaline Phosphatase 38 - 113 U/L 103 93 94 88 85 101 109 11 6 (H) 138 (H) 99 86 80 AST 14 - 40 U/L 36 27 37 35 30 36 21 25 38 15 15 23 BUN 9 - 24 mg/dL 18 11 14 22 22 33 (H) 29 (H) 31 (H) 29 (H) 35 (H) 23 30 (H) Creatinine 0.73 - 1.22 mg/dL 1.60 (H) 1.36 (H) 1.67 (H) 1.82 (H) 1.79 (H) 2.05 (H) 1.81 (H) 2.41 (H) 2.42 (H) 2.61 (H) 2.21 (H) 2.58 ( H) ALT 10 - 54 U/L 32 23 30 24 25 24 26 24 30 17 13 18 ? 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 See comment. COMMENT The biopsy demonstrates distorted liver architecture with ci rrhosis as highlighted on the trichrome stain. The lobular parenchyma d emonstrates mild macrovesicular steatosis representing approximately 15- 20% of the liver surface. Rare ballooned hepatocytes with Beba hyali ne and scattered foci of lobular inflammation are noted. The portal tracts show minimal chronic inflammatory infiltrates composed mainly of small mature lymphocytes without interface activity. There is minimal jones e ductular proliferation. The interlobular bile ducts are intact. Granu samina are not seen. There is no evidence of cholestasis. PAS/D stain is ne gative for alpha-1 antitrypsin inclusions. The iron stain does not reve al increased iron deposition. The findings are consistent with end-stage liver disease (ci rrhosis) with associated features of steatohepatitis. This pattern of inju ry has been associated with obesity/metabolic syndrome, diabetes mellitu s, drug-induced injury (steroids), alcohol use, total parental nutrition, Wi lson's disease, among others. ?? ? Component Latest Ref Rng AND Units 11/12/2018 Hep B Core Ab, Total Negative Negative Hep C Antibody IA Negative Negative Hep B Surface Ag Negative Negative Hep B Surface Ab, Qual Negative Negative Iron 41 - 186 ug/dL 78 TIBC 232 - 386 ug/dL 390 (H) Transferrin Saturation 15 - 57 % 20 IgA 78 - 391 mg/dL 234 Transglutaminase Ab, IgA <20 Units 8 Interpretation (Celiac Screen) No serologic evidence of neri ac disease. No serologic evidence of celiac disease. V.zoster IgG, Qual Negative Positive (A) Varicella zoster, IgG Index Value 950.5 EBV VCA IgG, Qual Negative Positive (A) EBV VCA, IgG AI >8.0 CRP <0.9 mg/dL 0.8 Ferritin 30.3 - 565.7 ng/mL 116.0 Vitamin B12 232 - 1,245 pg/mL 771 Hep A Ab, Total Negative Negative Hep B Surf Ab Quant <8.00 mIU/mL <8.00 ? ? 11/23/18 Pathology Ileocolic anastomosis, resection: - Chronic active ileitis with ulceration. - Benign lymph nodes. ? ? Component Latest Ref Rng AND Units 12/16/2018 12/17/2018 NT Pro BNP <125 pg/mL 36 ? Lactate 0.5 - 2.2 mmol/L 2.2 (H) 3.0 (H) ? Component Latest Ref Rng AND Units 12/17/2018 Iron 41 - 186 ug/dL 30 (L) TIBC 232 - 386 ug/dL 372 Transferrin Saturation 15 - 57 % 8 (L) Folate >4.7 ng/mL 6.7 Ferritin 30.3 - 565.7 ng/mL 70.6 Vitamin B12 232 - 1,245 pg/mL >2,000 (H) 12/17/18 Stool studies: FL (-). Cx (-). C-diff (-). OB (-). OANDP (-) ? RADIOLOGY? 09/10/18 CT A/P Liver: Normal unenhanced liver. IMPRESSION: Small bowel stricture involving 4 cm segment of small bowel in the right abdomen at the small bowel anastomosis site, new since CT 03/28/2018. No metastatic disease in the abdomen or pelvis. ? 09/30/18 NM Tumor octreotide scan IMPRESSION: No areas of abnormal indium-111 uptake are seen suggest a le seth with high metastatic receptor concentration. 11/24/2018 KUB IMPRESSION: Lines, tubes, and devices: NG/OG tube terminates in the prox imal stomach with side-port subdiaphragmatic. Bowel: No dilated bowel. Other: Right upper quadrant surgical clips. ?Midline surgica l clement. ? 12/16/18 CXR IMPRESSION: No acute radiographic abnormality. ? MOST RECENT EGD?12/15/17 with Serafin Henley MD for hx eso phageal varices - Grade I esophageal varices. - Portal hypertensive gastropathy. - Normal examined duodenum. - No specimens collected.? ? MOST RECENT COLONOSCOPY?10/16/18 with Serafin Henley MD ([facility]) for history of Crohn's disease, stricture seen on CT The colon (entire examined portion) appeared normal. Despite multiple maneuvers including pressure, changes in body position and c hanging the pediatric scope for an adult scope, I was unable to enter th e ileum Impression: ?- The entire examined colon is normal. SIGNATURE: Allyson Flores APRN.CLINICAL SAFETY MANAGER DATE: December 20, 2018 TIME: 8:43 AM cbc on 2018-12-20 Erythrocyte distribution 14.7 11.5-15.0 % Normal 12-20 [facility] ([id number]) width (RBC) [Ratio] Comment: Performed By: #### CBCDIF, P T, PTT, CK, CMP, LIPA, MG1 #### [facility] [address] [place] [address] Hematocrit (Bld) [Volume 30.3 39.0-51.0 % Low 12-20 [facility] ([id number]) fraction] Comment: Performed By: #### CBCDIF, P T, PTT, CK, CMP, LIPA, MG1 #### [facility] [address] [place] [address] Hemoglobin (Bld) [Mass/Vol] 9.9 13.0-17.0 g/dL Low [facility] ([id number]) Comment: Performed By: #### CBCDIF, P T, PTT, CK, CMP, LIPA, MG1 #### [facility] [address] [place] [address] MCH (RBC) [Entitic mass] 31.8 26.0-34.0 pG Normal 12-20 [facility] ([id number]) Comment: Performed By: #### CBCDIF, P T, PTT, CK, CMP, LIPA, MG1 #### [facility] [address] [place] [address] MCHC (RBC) [Mass/Vol] 32.7 30.5-36.0 g/dL Normal 12-21-19 19 [facility] ([id number]) Comment: Performed By: #### CBCDIF, P T, PTT, CK, CMP, LIPA, MG1 #### [facility] [address] [facility] [phone] MCV (RBC) [Entitic vol] 97.4 80.0-100.0 fL Normal 12-20 [facility] ([id number]) Comment: Performed By: #### CBCDIF, P T, PTT, CK, CMP, LIPA, MG1 #### [facility] [address] [place] [address] Platelet mean volume (Bld) 12.3 9.0-12.7 fL Normal [facility] ([id number]) [Entitic vol] Comment: Performed By: #### CBCDIF, P T, PTT, CK, CMP, LIPA, MG1 #### [facility] [address] [place], [place] [phone] Platelets (Bld) [#/Vol] 110 150-400 k/uL Low 2018 [facility] ([id number]) Comment: Performed By: #### CBCDIF, P T, PTT, CK, CMP, LIPA, MG1 #### [facility] [address] [place] [phone] RBC (Bld) [#/Vol] 3.11 4.20-6.00 m/uL Low 12-20-2018 [facility] ([id number]) Comment: Performed By: #### CBCDIF, P T, PTT, CK, CMP, LIPA, MG1 #### [facility] [address] [place] [address] WBC (Bld) [#/Vol] 4.13 3.70-11.00 k/uL Normal 12-20-2018 [facility] ([id number]) Comment: Performed By: #### CBCDIF, P T, PTT, CK, CMP, LIPA, MG1 #### [facility] [address] [place] [address] allied health on 05-01-03 [facility] HNO ID: [id number] Normal [address] [place] [address] Author: Whitney (Rt) Lidia Fraire ([id number]) Service: Radiology Author Type: Buttonhole Maker Hand Type: Allied Health Filed: 12/20/2018 10:29 AM Note Text: Radiology Service Progress Note PATIENT NAME: Venkata Leal DATE OF SERVICE: December 20, 2018 TIME: 10:29 AM PATIENT IDENTITY VERIFICATION COMPLETED USING TWO (2) METHOD S: Name and Date of confirmed by patient verbally. PATIENT GENDER DATA: Male PATIENT RELEVANT IMPLANT DATA REVIEWED: Not Applicable RADIOLOGY DEPARTMENT: General X-ray: Exam(s) Completed: Abdo men X-Ray Abdomen PERIPHERAL IV DATA: Not applicable SIGNED BY: Whtiney Fraire RT December 20, 2018 10:29 AM renal function panel on 2018-12-19 Albumin [Mass/Vol] 3.2 3.9-4.9 g/dL Low 12-19-2018 [facility] ([id number]) Comment: Performed By: #### CBCDIF, P T, PTT, CK, CMP, LIPA, MG1 #### [facility] [address] [place] [address] Anion gap [Moles/Vol] 9 9-18 mmol/L Normal 12-20-19 [facility] ([id number]) Comment: Performed By: #### CBCDIF, P T, PTT, CK, CMP, LIPA, MG1 #### [facility] [address] [facility] [phone] Calcium [Mass/Vol] 8.6 8.5-10.2 mg/dL Normal 12-19-2018 [facility] ([id number]) Comment: Performed By: #### CBCDIF, P T, PTT, CK, CMP, LIPA, MG1 #### [facility] [address] [facility] [phone] Chloride [Moles/Vol] 107 97-105 mmol/L High 9 [facility] ([id number]) Comment: Performed By: #### CBCDIF, P T, PTT, CK, CMP, LIPA, MG1 #### [facility] [address] [facility] [phone] CO2 [Moles/Vol] 24 22-30 mmol/L Normal 12-19-2018 [facility] (63485) Comment: Performed By: #### CBCDIF, P T, PTT, CK, CMP, LIPA, MG1 #### [facility] [address] [facility] [phone] Creatinine [Mass/Vol] 2.30 0.73-1.22 mg/dL High 12-20-19 19 [facility] (63375) Comment: Performed By: #### CBCDIF, P T, PTT, CK, CMP, LIPA, MG1 #### [facility] [address] [facility] [phone] eGFR- Amer. 34 Normal 12-19-2018 [facility] ([id number]) Comment: Performed By: #### CBCDIF, P T, PTT, CK, CMP, LIPA, MG1 #### [facility] [address] [facility] [phone] GFR/1.73 sq M predicted among 28 . Normal 12-19-2018 [facility] ([id number]) non-blacks MDRD (S/P/Bld) [Vol rate/Area] Comment: Result Comment: eGFR (Estima pratik GFR) Units of measure: mL/min/1.73 meters squared eGFR is derived from the ree xpressed MDRD Study equation using the following parameters: serum creatinine, age, gender and race. The creatinine assay has been calibrated to be traceable to IDMS. An eGFR <60 mL/min/1.73m2 fo r >3 months is consistent with chronic kidney disease. Refer to KDOQI guidelines for clinical interpretation. In patients with unstable re nal function, e.g. those with acute kidney injury, the eGFR may not accurately reflect actual GFR. Performed By: #### CBCDIF, P T, PTT, CK, CMP, LIPA, MG1 #### [facility] [address] [facility] [phone] Glucose [Mass/Vol] 118 74-99 mg/dL High 12-19-2018 [facility] ([id number]) Comment: Result Comment: The [place] [employer] (ADA) provides guidance for cutoff values for fasting glucose and random glucose. The ADA defines fasting as no caloric intake for at least 8 hours. Fas ting plasma glucose results between 100 to 125 mg/dL indicate increased risk for diabetes (prediabetes). Fasting plasma glucose resul ts greater than or equal to 126 mg/dL meet the criteria for diagnosis of diabetes. In the absence of unequivocal hyperglycemia, results should be confirmed by repeat testing. In a patient with classic s ymptoms of hyperglycemia or hyperglycemic crisis, random plasma glucose results greater than or equal to 200 mg/dL meet the criteria for diagnosis of diabetes. Reference: Standards of [facility] in Diabetes 2016, [place] [employer] Association. Diabetes Care. 2016.39(Suppl 1). Performed By: #### CBCDIF, P T, PTT, CK, CMP, LIPA, MG1 #### [facility] [address] [facility] [phone] Phosphate [Mass/Vol] 3.2 2.7-4.8 mg/dL Normal 9 [facility] (32557) Comment: Performed By: #### CBCDIF, P T, PTT, CK, CMP, LIPA, MG1 #### [facility] [address] [facility] [phone] Potassium [Moles/Vol] 4.6 3.7-5.1 mmol/L Normal 12-20-19 19 [facility] (30205) Comment: Performed By: #### CBCDIF, P T, PTT, CK, CMP, LIPA, MG1 #### [facility] [address] [facility] [phone] Sodium [Moles/Vol] 140 136-144 mmol/L Normal 12-19-2018 [facility] (09062) Comment: Performed By: #### CBCDIF, P T, PTT, CK, CMP, LIPA, MG1 #### [facility] [address] [place] [address] Urea nitrogen [Mass/Vol] 21 9-24 mg/dL Normal 12-19 [facility] (93889) Comment: Performed By: #### CBCDIF, P T, PTT, CK, CMP, LIPA, MG1 #### [facility] [address] [facility] [phone] protime on PT Coag (PPP) [Time] 1.1 0.9-1.3 s Normal 9 [facility] ([id number]) Comment: Result Comment: Vitamin K An tagonist (VKA) Therapeutic Range: INR 2 to 3 (Target INR of 2.5) Note: For patients treated w ith VKA drugs, such as warfarin, the [place] [employer] 2012 Guideline recommends a therapeutic INR range of 2 to 3 (target INR of 2.5). This recommendation includes high-risk patients with antiphospholipid syndrome with previous arterial or venous thromboembolism, current-generation mechanical or bioprosthetic aortic heart valve replacement. Note: Patients with heavy duty mechanic al aortic valve replacement and additional risk factors for thromboembolic events (atrial fibrillation, previous thromboembolism, LV dysfunction, hypercoagulable conditions) or an older generation mecha nical AVR (i.e., ball in-Cage) or any mechanical MVR should have a INR therapeutic range of 2.5 to 3.5 (target INR of 3). Sawyer GH, et al. Chest 2012 , 141:7S-47S Kathy RA et al. [facility] 20 , 70: 252-289 Performed By: #### CBCDIF, P T, PTT, CK, CMP, LIPA, MG1 #### [facility] [address] [facility] [phone] PT Coag (PPP) [Time] 11.5 9.7-13.0 sec Normal 9 [facility] ([id number]) Comment: Performed By: #### CBCDIF, P T, PTT, CK, CMP, LIPA, MG1 #### [facility] [address] [facility] [phone] progress on 2018-12 PROGRESS HNO ID: [id number] Normal 12-19-2018 [facility] Author: Karl Holden ([id number]) Service: Hospital Medicine Author Type: Physician Type: Progress Notes Filed: 12/19/2018 10:51 AM Note Text: DEPARTMENT OF HOSPITAL MEDICINE PROGRESS NOTE CC: F/u LOR and high ostomy output HPI: No new symptoms. Review of Systems Respiratory: Negative for shortness of breath. Cardiovascular: Negative for chest pain. Gastrointestinal: Negative for abdominal pain. Exam: BP 128/54 Pulse (!) 58 Temp 36.4 ?C (97.5 ?F) (Oral) R dae 16 Ht 175.3 cm (5' 9) Wt 99.9 kg (220 lb 3.8 oz) SpO2 98% BMI 32.52 kg/m? Physical Exam Constitutional: He is oriented to person, place, and time. N o distress. HENT: Head: Normocephalic. Eyes: EOM are normal. Cardiovascular: Normal rate and regular rhythm. Pulmonary/Chest: Effort normal and breath sounds normal. Abdominal: Soft. He exhibits distension. There is no tendern ess. Right sided ostomy. Healing lap scars from surgery prior to admission Musculoskeletal: He exhibits no edema. Neurological: He is alert and oriented to person, place, and time. Skin: Skin is warm. He is not diaphoretic. Skin tear 1 cm right knee Psychiatric: He has a normal mood and affect. 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 Currently, Nephrology following LOR and IVF replacement dosi ng and GI/Surgery ordering additional diagnostic tests for evaluati ng the high ostomy output and trialing medications to normalize output. Will await clearance by nephro/GI/Surgery to transition home when ready or if alternative dispo plan exists. Awaiting PT/OT assessments Plan: Active Hospital Problems Diagnosis Date Noted - High output ileostomy (HCC) 12/17/2018 Assessment AND Plan Note: See plan above. Appears to be improving with loperamide and bile acid sequestrant - Obesity, Class I, BMI 30-34.9 12/17/2018 - Esophageal varices in cirrhosis ([facility]) 12/09/2017 Assessment AND Plan Note: stable - Crohn's disease of small intestine with intestinal obstruc tion ([facility]) 04/02/2017 Assessment AND Plan Note: Stable. Continue home medications + loperamide - Chronic diastolic heart failure ([facility]) 05/03/2016 Assessment AND Plan Note: stable - Acute renal failure superimposed on stage 3 chronic kidney disease ([facility]) 05/03/2016 Assessment AND Plan Note: Improving. 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 Will DC home on lantus/lispro or regula r/levemir depending on insurance coverage - Carcinoid tumor 12/27/2010 Assessment AND Plan Note: S/p surgical therapy ~2010 - CAD (coronary artery disease) Assessment AND Plan Note: stable - Peripheral vascular disease, unspecified (HCC) 01/31/2005 Assessment AND Plan Note: Stable. No claudication reported VTE Prophylaxis: SCD Plan of Care visit Complete: yes SIGNATURE: Karl Holden MD Work Cell #: [phone] DATE: December 18, 2018 TIME: 9:49 AM magnesium on 2018-02 Magnesium [Mass/Vol] 2.0 1.7-2.3 mg/dL Normal 9 [facility] ([id number]) Comment: Performed By: #### CBCDIF, P T, PTT, CK, CMP, LIPA, MG1 #### [facility] [address] [facility] [phone] Magnesium [Mass/Vol] 2.2 1.7-2.3 mg/dL Normal [address] [place] [address] (35193) Comment: Performed By: #### CBCDIF, P T, PTT, CK, CMP, LIPA, MG1 #### [facility] [address] [facility] [phone] fecal fat, quant. o n 2018-12-19 % Fecal Fat Not Applicable Normal 12-19-2018 [facility] (42026) Comment: Performed By: #### FECFAT ## ## [facility] [place], [place] [address] [phone] Collection Time 24 hr 2 containers Normal 12-19 [facility] (40719) Comment: Result Comment: Corrected on 12/20 AT 0809: Previously reported as 24 Performed By: #### FECFAT ## ## [facility] [place], [place] [address] [phone] Fecal Quant. Fat 49 2 - 7 g/24 h High 12-19-2018 [facility] (06611) Comment: Result Comment: (NOTE) ADDITIONA L INFORMATION This test was developed and its performance characteristics determined by [facility] in a manner consistent with CLIA requirements. This test has not been cleared or approved by the U.S. Food an d Drug Administration. Performed By: #### FECFAT ## ## [facility] [place], [place] [address] [phone] Total Weight 1389 g Normal 12-19-2018 [facility] ([id number]) Comment: Performed By: #### FECFAT ## ## [facility] [place], [place] [address] [phone] consult prog on 201 10-28-01 CONSULT PROG HNO ID: [id number] Normal 12-20-19 19 [facility] Author: Ilan Whitney ([id number]) Service: Nephrology Author Type: Physician Type: Consult Progress Note Filed: 12/19/2018 4:29 PM Note Text: INPATIENT CONSULT PROGRESS NOTES Patient Name: Venkata Leal DATE of SERVICE: December 19, 2018 TIME of SERVICE: 4:25 PM CONSULTING SERVICE: Nephrology INTERVAL HPI: the pt was seen and examined, reports no event s overnight and feels OK today. He thinks the stool is thickening up a b it today. He is otherwise free of symptoms. PERTINENT ROS: REVIEW OF SYSTEMS GENERAL: Fatigue, liquid stool via ostomy, see HPI RESPIRATORY: Negative for cough, hemoptysis, wheezing, COPD, dyspnea or shortness of breath CARDIOVASCULAR: Negative for chest pain, leg swelling, hyper tension, CHF or palpitations : No history of dysuria, frequency or incontinence All other reviewed and negative other than HPI. MEDICATIONS: Current Facility-Administered Medications Medication Dose Route Frequency - NaCl 0.9% 3-5 mL 3-5 mL INTRAVENOUS q 12 H - ipratropium-albuterol 3 mL nebulizer solution (DUONEB) 3 m L INHALATION q 4 H PRN - ondansetron orally disintegrating 4 mg tab(s) (ZOFRAN ODT) 4 mg ORAL q 6 H PRN Or - ondansetron (PF) 4 mg injection (ZOFRAN) 4 mg INTRAVENOUS q 6 H PRN - dextrose 40 % 15 g 15 g ORAL PRN Or - glucagon 1 mg injection (GLUCAGEN) 1 mg INTRAMUSCULAR PRN Or - dextrose 50 % 12.5 g injection 12.5 g INTRAVENOUS PRN - acetaminophen 650 mg tab(s) (TYLENOL) 650 mg ORAL q 6 H [facility] N - gabapentin 300 mg cap(s) (NEURONTIN) 300 mg ORAL AT BEDTIM E - [START ON 12/22/2018] rosuvastatin 5 mg tab(s) (CRESTOR) 5 mg ORAL 2/WK - metoprolol tartrate (short acting) 25 mg tab(s) (LOPRESSOR ) 25 mg ORAL BID - balsalazide 2,250 mg cap(s) (COLAZAL) 2,250 mg ORAL TID - clopidogrel 75 mg tab(s) (PLAVIX) 75 mg ORAL DAILY - sertraline 100 mg tab(s) (ZOLOFT) 100 mg ORAL DAILY - DULoxetine 20 mg cap(s) (CYMBALTA) 20 mg ORAL DAILY - levothyroxine 137 mcg tab(s) (SYNTHROID) 137 mcg ORAL EDUIN Y - pantoprazole DR 20 mg tab(s) (PROTONIX) 20 mg ORAL DAILY ( 6 AM) - NaCl 0.9% iv infusion 100 mL/hr INTRAVENOUS CONTINUOUS - melatonin 3 mg tab(s) 3 mg ORAL HS PRN - insulin lispro injection (rapid acting) (HumaLOG) SUBCUTAN EOUS w MEALS - insulin glargine 6 Units pen (long acting) (LANTUS SOLOSTA R, BASAGLAR KWIKPEN) 6 Units SUBCUTANEOUS AT BEDTIME - insulin lispro 2 Units injection (rapid acting) (HumaLOG) 2 Units SUBCUTANEOUS w MEALS - [id number]-prlbumqf-hunowkh 1 capsule cap(s) (CREON 24) 1 caps ule ORAL BID w MEALS - cholestyramine 4 g packet (QUESTRAN) 4 g ORAL BID w MEALS - oxyCODONE IR 5 mg tab(s) (ROXICODONE) 5 mg ORAL BID PRN - tamsulosin ER 0.4 mg cap(s) (FLOMAX) 0.4 mg ORAL AT BEDTIM E - dicyclomine 10 mg cap(s) (BENTYL) 10 mg ORAL QID PRN - finasteride 5 mg tab(s) (PROSCAR) 5 mg ORAL DAILY - ferric gluconate 125 mg in NaCl 0.9% 100 mL (FERRLECIT) 12 5 mg INTRAVENOUS DAILY AT 6 PM - loperamide 2 mg cap(s) (IMODIUM) 2 mg ORAL QID PHYSICAL EXAM: Patient Vitals for the past 24 hrs: BP Temp Temp src Pulse Resp SpO2 Weight 12/19/18 1500 117/60 36.5 ?C (97.7 ?F) Oral (!) 58 16 98 % ? 12/19/18 0816 128/54 36.4 ?C (97.5 ?F) Oral (!) 58 16 98 % ? 12/19/18 0600 ? 99.9 kg (220 lb 3.8 oz) 12/18/18 2322 94/53 36.6 ?C (97.9 ?F) Oral 64 18 97 % ? Body mass index is 32.52 kg/m?. Intake/Output Summary (Last 24 hours) at 12/19/2018 1625 Last data filed at 12/19/2018 1500 Gross per 24 hour Intake 6091 ml Output 3790 ml Net 2301 ml GENERAL: Alert, no distress, cooperative LUNGS: Lungs clear to auscultation, Good diaphragmatic excur seth CARDIAC: Normal S1 and S2; no rubs, murmurs, or gallops ABDOMEN: Abdomen soft, non-tender, BS normal, No masses or o rganomegaly and ostomy EXTREMITIES: Extremities normal, no deformities, edema, club erick or skin discoloration. Good capillary refill., No ulcers The remainder of the physical exam is noncontributory. DATA: Recent Labs 12/19/18 0538 12/18/18 0503 12/17/18 1952 12/17/18 0439 12/16/18 2334 12/16/18 1933 WBC 3.16* 3.04* -- -- 4.91 4.95 -- 6.24 HB 9.4* 9.3* -- -- 10.5* 10.4* -- 12.5* HCT 28.5* 29.1* -- -- 32.7* 32.1* -- 37.8* PLT 108* 118* -- -- 148* 143* -- 190 NA 140 140 138 < > 143 140 < > 135* K 4.6 4.8 4.6 < > 5.4* 6.1* < > 6.3* CHLOR 107* 105 103 < > 105 104 < > 98 CO2 24 23 24 < > 26 26 < > 23 CREAT 2.30* 2.74* 2.85* < > 3.52* 3.77* < > 4.13* BUN 21 30* 31* < > 36* 38* < > 38* GLUC 118* 113* 160* < > 128* 101* < > 171* P 3.2 3.4 -- -- -- 4.2 -- -- TPROT -- -- -- -- -- -- -- 7.6 ALB 3.2* 3.3* -- -- -- -- -- 4.6 MG 2.2 1.5* -- -- -- 1.7 -- 1.7 CA 8.6 8.8 9.1 < > 10.5* 10.6* < > 11.0* ALKPHOS -- -- -- -- -- -- -- 168* TBILI -- -- -- -- -- -- -- 0.5 AST -- -- -- -- -- -- -- 60* ALT -- -- -- -- -- -- -- 55* < > = values in this interval not displayed. ASSESSMENT AND PLAN: 1. LOR improving, monitor renal function 2. Volume depletion due to high output ostomy, improving wit h isotonic saline, continue with fluid for now; will check Mg 3. CKD 3, previous UA's bland in the spring, will send a UA 4. Anemia, f/u hgb ordered SIGNATURE: Ilan Whitney DO DATE: December 19, 2018 TIME: 4:25 PM CONSULT PROG HNO ID: [id number] Normal 12-20-[address] [place] [address] Author: Cassandra Tobias ([id number]) Service: Gastroenterology Author Type: Physician Type: Consult Progress Note Filed: 12/19/2018 4:50 PM Note Text: GASTROENTEROLOGY CONSULT PROGRESS NOTE Patient Name: Venkata Leal SERVICE DATE: December 19, 2018 SERVICE TIME: 11:04 AM ASSESSMENT 1- High ostomy output - negative stool studies 2- LOR / electrolyte abnormalities 3- Hx Crohn's disease s/p resection of neoterminal ileum and ileocolonic anastomosis with diverting loop ileostomy 11/23/18 on Pentasa 4- GOMEZ cirrhosis complicated by esophageal varices, anemia, thrombocytopenia, portal hypertensive gastropathy 5- Hx carcinoid tumor s/p small bowel resection 6- Hx exocrine pancreatic insufficiency on Creon 7- CAD (Plavix) / CKD 8- RIMA ? PLAN - Stool log. - F/U stool for fecal fat and urine for 5-HIAA - Continue Questran 4 grams BID (12/17) - Increase Imodium to 2 mg QID - Continue balsalazide 2250 mg po TID (substitution for Pent asa) - Protonix 20 mg po daily - Continue Creon as home regimen - Begin Ferrlecit 125 mg IV daily x 7 doses while in house - IVF - Carb control diet - Monitor daily labs - Follow renal recs - Further recommendations pending patient's clinical course and above evaluation Discussed with mid level provider. Harman findings confirmed. P aylin as outlined. Cassandra Tobias MD December 19, 2018 4:50 PM ? INTERVAL HPI: Patient and spouse reports that ostomy output seemed improved but worsened after he ate breakfast and has been p ouring out. Denies abdominal pain, n/v. 1475 out from ostomy yesterday, 1666 out on 12/17. Eating 100% of meals PHYSICAL EXAM: Patient Vitals for the past 24 hrs: BP Temp Temp src Pulse Resp SpO2 Weight 12/19/18 0816 128/54 36.4 ?C (97.5 ?F) Oral (!) 58 16 98 % ? 12/19/18 0600 ? 99.9 kg (220 lb 3.8 oz) 12/18/18 2322 94/53 36.6 ?C (97.9 ?F) Oral 64 18 97 % ? 12/18/18 1130 ? 18 ? ? 12/18/18 1111 96/67 36.6 ?C (97.9 ?F) Oral 64 18 97 % ? GENERAL: Alert AND oriented x 3. Cooperative. NAD EYES: No scleral icterus SKIN: Pale in color. No jaundice LUNGS: Clear to auscultation CARDIAC: RRR ABDOMEN: BS x 4. Abdomen obese but soft, mild RLQ TTP, non d istended, no palpable masses or organomegaly. No guarding or rebound tend erness elicited. Ileostomy to right abdomen with red beefy stoma an d yellow liquid output in bag. EXTREMITIES: Trace edema BLE LABS: CBC, Coags, BMP, Mg, Phos Recent Labs 12/19/1853712/18/1850212/17/18195112/17/189 12/16/18 2334 12/16/181932 WBC 3.16* 3.04* -- -- 4.91 4.95 -- 6.24 HB 9.4* 9.3* -- -- 10.5* 10.4* -- 12.5* HCT 28.5* 29.1* -- -- 32.7* 32.1* -- 37.8* PLT 108* 118* -- -- 148* 143* -- 190 INR 1.1 1.1 -- -- 1.1 1.1 -- 1.1 APTT -- -- -- -- -- -- -- 24.2 NA 140 140 138 < > 143 140 < > 135* K 4.6 4.8 4.6 < > 5.4* 6.1* < > 6.3* CHLOR 107* 105 103 < > 105 104 < > 98 CO2 24 23 24 < > 26 26 < > 23 BUN 21 30* 31* < > 36* 38* < > 38* CREAT 2.30* 2.74* 2.85* < > 3.52* 3.77* < > 4.13* GLUC 118* 113* 160* < > 128* 101* < > 171* CA 8.6 8.8 9.1 < > 10.5* 10.6* < > 11.0* MG 2.2 1.5* -- -- -- 1.7 -- 1.7 P 3.2 3.4 -- -- -- 4.2 -- -- < > = values in this interval not displayed. Liver Function, Amylase, AND Lipase Recent Labs 12/19/1853712/18/1850212/16/18 1933 TPROT -- -- 7.6 ALB 3.2* 3.3* 4.6 ALT -- -- 55* AST -- -- 60* ALKPHOS -- -- 168* TBILI -- -- 0.5 LIPASE -- -- 43 MEDICATIONS: Current Facility-Administered Medications Medication Dose Route Frequency - NaCl 0.9% 3-5 mL 3-5 mL INTRAVENOUS q 12 H - ipratropium-albuterol 3 mL nebulizer solution (DUONEB) 3 m L INHALATION q 4 H PRN - ondansetron orally disintegrating 4 mg tab(s) (ZOFRAN ODT) 4 mg ORAL q 6 H PRN Or - ondansetron (PF) 4 mg injection (ZOFRAN) 4 mg INTRAVENOUS q 6 H PRN - dextrose 40 % 15 g 15 g ORAL PRN Or - glucagon 1 mg injection (GLUCAGEN) 1 mg INTRAMUSCULAR PRN Or - dextrose 50 % 12.5 g injection 12.5 g INTRAVENOUS PRN - acetaminophen 650 mg tab(s) (TYLENOL) 650 mg ORAL q 6 H NH N - gabapentin 300 mg cap(s) (NEURONTIN) 300 mg ORAL AT BEDTIM E - [START ON 12/22/2018] rosuvastatin 5 mg tab(s) (CRESTOR) 5 mg ORAL 2/WK - metoprolol tartrate (short acting) 25 mg tab(s) (LOPRESSOR ) 25 mg ORAL BID - balsalazide 2,250 mg cap(s) (COLAZAL) 2,250 mg ORAL TID - clopidogrel 75 mg tab(s) (PLAVIX) 75 mg ORAL DAILY - sertraline 100 mg tab(s) (ZOLOFT) 100 mg ORAL DAILY - DULoxetine 20 mg cap(s) (CYMBALTA) 20 mg ORAL DAILY - levothyroxine 137 mcg tab(s) (SYNTHROID) 137 mcg ORAL EDUIN Y - pantoprazole DR 20 mg tab(s) (PROTONIX) 20 mg ORAL DAILY ( 6 AM) - NaCl 0.9% iv infusion 100 mL/hr INTRAVENOUS CONTINUOUS - loperamide 2 mg cap(s) (IMODIUM) 2 mg ORAL q 8 H - melatonin 3 mg tab(s) 3 mg ORAL HS PRN - insulin lispro injection (rapid acting) (HumaLOG) SUBCUTAN EOUS w MEALS - insulin glargine 6 Units pen (long acting) (LANTUS SOLOSTA R, BASAGLAR KWIKPEN) 6 Units SUBCUTANEOUS AT BEDTIME - insulin lispro 2 Units injection (rapid acting) (HumaLOG) 2 Units SUBCUTANEOUS w MEALS - ddgxnz-fuocuhkz-xwaxeyk 1 capsule cap(s) (CREON 24) 1 caps ule ORAL BID w MEALS - cholestyramine 4 g packet (QUESTRAN) 4 g ORAL BID w MEALS - oxyCODONE IR 5 mg tab(s) (ROXICODONE) 5 mg ORAL BID PRN - tamsulosin ER 0.4 mg cap(s) (FLOMAX) 0.4 mg ORAL AT BEDTIM E - dicyclomine 10 mg cap(s) (BENTYL) 10 mg ORAL QID PRN - finasteride 5 mg tab(s) (PROSCAR) 5 mg ORAL DAILY Component Latest Ref Rng AND Units 03/26/2018 05/01/2018 019 11/23/2018 11/25/2018 11/26/2018 11/26/2018 11/27/2018 11/28/20182018 ? 1:04 AM 9:38 PM ? ? ? Hemoglobin 13.0 - 17.0 g/dL 13.1 12.6 (L) 13.3 8.4 (L) 9.5 ( L) 7.9 (L) 8.6 (L) 9.0 (L) 9.1 (L) 8.4 (L) Hematocrit 39.0 - 51.0 % 39.4 38.2 (L) 41.0 25.0 (L) 27.8 (L ) 23.8 (L) 25.9 (L) 27.6 (L) 27.4 (L) 25.4 (L) MCV 80.0 - 100.0 fL 99.2 101.9 (H) 100.7 (H) 99.6 97.2 98.8 100.0 100.0 98.2 97.3 MCH 26.0 - 34.0 pG 33.0 33.6 32.7 33.5 33.2 32.8 33.2 32.6 3 2.6 32.2 MCHC 30.5 - 36.0 g/dL 33.2 33.0 32.4 33.6 34.2 33.2 33.2 32. 6 33.2 33.1 RDW-CV 11.5 - 15.0 % 14.6 15.4 (H) 14.8 14.6 15.3 (H) 15.6 ( H) 15.4 (H) 15.4 (H) 15.3 (H) 15.4 (H) Platelet Count 150 - 400 k/uL 126 (L) 123 (L) 142 (L) 131 (L ) 111 (L) 96 (L) 121 (L) 149 (L) 154 148 (L) ? Component Latest Ref Rng AND Units 09/19/2016 10/23/2016 017 03/12/2017 06/09/2017 10/02/2017 01/02/2018 04/21/2018 05/19/2018 08/11/201811/12/2018 Bilirubin, Total 0.2 - 1.3 mg/dL 0.8 0.3 0.5 0.6 0.5 0.4 0.4 0.4 0.5 0.4 0.5 0.5 Alkaline Phosphatase 38 - 113 U/L 103 93 94 88 85 101 109 11 6 (H) 138 (H) 99 86 80 AST 14 - 40 U/L 36 27 37 35 30 36 21 25 38 15 15 23 BUN 9 - 24 mg/dL 18 11 14 22 22 33 (H) 29 (H) 31 (H) 29 (H) 35 (H) 23 30 (H) Creatinine 0.73 - 1.22 mg/dL 1.60 (H) 1.36 (H) 1.67 (H) 1.82 (H) 1.79 (H) 2.05 (H) 1.81 (H) 2.41 (H) 2.42 (H) 2.61 (H) 2.21 (H) 2.58 ( H) ALT 10 - 54 U/L 32 23 30 24 25 24 26 24 30 17 13 18 ? 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 See comment. COMMENT The biopsy demonstrates distorted liver architecture with ci rrhosis as highlighted on the trichrome stain. The lobular parenchyma d emonstrates mild macrovesicular steatosis representing approximately 15- 20% of the liver surface. Rare ballooned hepatocytes with Beba hyali ne and scattered foci of lobular inflammation are noted. The portal tracts show minimal chronic inflammatory infiltrates composed mainly of small mature lymphocytes without interface activity. There is minimal jones e ductular proliferation. The interlobular bile ducts are intact. Granu samina are not seen. There is no evidence of cholestasis. PAS/D stain is ne gative for alpha-1 antitrypsin inclusions. The iron stain does not reve al increased iron deposition. The findings are consistent with end-stage liver disease (ci rrhosis) with associated features of steatohepatitis. This pattern of inju ry has been associated with obesity/metabolic syndrome, diabetes mellitu s, drug-induced injury (steroids), alcohol use, total parental nutrition, Wi lson's disease, among others. ? ? Component Latest Ref Rng AND Units 11/12/2018 Hep B Core Ab, Total Negative Negative Hep C Antibody IA Negative Negative Hep B Surface Ag Negative Negative Hep B Surface Ab, Qual Negative Negative Iron 41 - 186 ug/dL 78 TIBC 232 - 386 ug/dL 390 (H) Transferrin Saturation 15 - 57 % 20 IgA 78 - 391 mg/dL 234 Transglutaminase Ab, IgA <20 Units 8 Interpretation (Celiac Screen) No serologic evidence of neri ac disease. No serologic evidence of celiac disease. V.zoster IgG, Qual Negative Positive (A) Varicella zoster, IgG Index Value 950.5 EBV VCA IgG, Qual Negative Positive (A) EBV VCA, IgG AI >8.0 CRP <0.9 mg/dL 0.8 Ferritin 30.3 - 565.7 ng/mL 116.0 Vitamin B12 232 - 1,245 pg/mL 771 Hep A Ab, Total Negative Negative Hep B Surf Ab Quant <8.00 mIU/mL <8.00 ? ? 11/23/18 Pathology Ileocolic anastomosis, resection: - Chronic active ileitis with ulceration. - Benign lymph nodes. ? ? Component Latest Ref Rng AND Units 12/16/2018 12/17/2018 NT Pro BNP <125 pg/mL 36 ? Lactate 0.5 - 2.2 mmol/L 2.2 (H) 3.0 (H) ? Component Latest Ref Rng AND Units 12/17/2018 Iron 41 - 186 ug/dL 30 (L) TIBC 232 - 386 ug/dL 372 Transferrin Saturation 15 - 57 % 8 (L) Folate >4.7 ng/mL 6.7 Ferritin 30.3 - 565.7 ng/mL 70.6 Vitamin B12 232 - 1,245 pg/mL >2,000 (H) 12/17/18 Stool studies: FL (-). Cx (-). C-diff (-). OB (-). OANDP (-) RADIOLOGY 09/10/18 CT A/P IMPRESSION: Small bowel stricture involving 4 cm segment of small bowel in the right abdomen at the small bowel anastomosis site, new since CT 03/28/2018. No metastatic disease in the abdomen or pelvis. ? 09/30/18 NM Tumor octreotide scan IMPRESSION: No areas of abnormal indium-111 uptake are seen suggest a le seth with high metastatic receptor concentration. ? 12/16/18 CXR IMPRESSION: No acute radiographic abnormality. ? MOST RECENT EGD 12/15/17 with Serafin Henley MD for hx eso phageal varices - Grade I esophageal varices. - Portal hypertensive gastropathy. - Normal examined duodenum. - No specimens collected. ? MOST RECENT COLONOSCOPY 10/16/18 with Serafin Henley MD ([facility]) for history of Crohn's disease, stricture seen on CT The colon (entire examined portion) appeared normal. Despite multiple maneuvers including pressure, changes in body position and c hanging the pediatric scope for an adult scope, I was unable to enter th e ileum Impression: ?- The entire examined colon is normal. ? SIGNATURE: Allyson Flores APRN.CLINICAL SAFETY MANAGER DATE: December 19, 2018 TIME: 11:04 AM cbc on 2018-12-19 Erythrocyte distribution 14.8 11.5-15.0 % Normal 12-19 [facility] ([id number]) width (RBC) [Ratio] Comment: Performed By: #### CBCDIF, P T, PTT, CK, CMP, LIPA, MG1 #### [facility] [address] [place] [address] Hematocrit (Bld) [Volume 28.5 39.0-51.0 % Low 12-19 [facility] ([id number]) fraction] Comment: Performed By: #### CBCDIF, P T, PTT, CK, CMP, LIPA, MG1 #### [facility] [address] [facility] [phone] Hemoglobin (Bld) [Mass/Vol] 9.4 13.0-17.0 g/dL Low [facility] ([id number]) Comment: Performed By: #### CBCDIF, P T, PTT, CK, CMP, LIPA, MG1 #### [facility] [address] [facility] [phone] MCH (RBC) [Entitic mass] 32.3 26.0-34.0 pG Normal 12-19 [facility] ([id number]) Comment: Performed By: #### CBCDIF, P T, PTT, CK, CMP, LIPA, MG1 #### [facility] [address] [place] [address] MCHC (RBC) [Mass/Vol] 33.0 30.5-36.0 g/dL Normal 12-20-19 19 [facility] (70002) Comment: Performed By: #### CBCDIF, P T, PTT, CK, CMP, LIPA, MG1 #### [facility] [address] [place] [address] MCV (RBC) [Entitic vol] 97.9 80.0-100.0 fL Normal 12-19 [facility] (41589) Comment: Performed By: #### CBCDIF, P T, PTT, CK, CMP, LIPA, MG1 #### [facility] [address] [place] [address] Platelet mean volume (Bld) 11.4 9.0-12.7 fL Normal [facility] ([id number]) [Entitic vol] Comment: Performed By: #### CBCDIF, P T, PTT, CK, CMP, LIPA, MG1 #### [facility] [address] [place], [place] [address] Platelets (Bld) [#/Vol] 108 150-400 k/uL Low 2018 [facility] ([id number]) Comment: Performed By: #### CBCDIF, P T, PTT, CK, CMP, LIPA, MG1 #### [facility] [address] [place] [address] RBC (Bld) [#/Vol] 2.91 4.20-6.00 m/uL Low 12-19-2018 [facility] ([id number]) Comment: Performed By: #### CBCDIF, P T, PTT, CK, CMP, LIPA, MG1 #### [facility] [address] [facility] [phone] WBC (Bld) [#/Vol] 3.16 3.70-11.00 k/uL [facility] 12-19-2018 [facility] ([id number]) Comment: Performed By: #### CBCDIF, P T, PTT, CK, CMP, LIPA, MG1 #### [facility] [address] [facility] [phone] therapy nt on 12-18 THERAPY NT HNO ID: [id number] Normal 12-18-2018 [facility] Author: Joy Thompson ([id number]) Service: Occupational Therapy Author Type: Occupational Therapist Type: Therapy (PT/OT/Speech/Resp) Filed: 12/18/2018 12:22 PM Note Text: OCCUPATIONAL THERAPY MISSED VISIT SERVICE DATE: 12/18/2018 SERVICE TIME: 1210 to 1212 ROOM: [place] [address] Attempted Evaluation. Patient not seen due to Eating. Will r e-attempt as schedule allows. SIGNATURE: YVES Carrasco/L PATIENT NAME: Venkata andrade DATE: December 18, 2018 TIME: 12:21 PM THERAPY NT HNO ID: [id number] Normal 12-18-2018 [facility] Author: Isha Brihgt ([id number]) Service: Physical Therapy Author Type: Physical Therapist Type: Therapy (PT/OT/Speech/Resp) Filed: 12/18/2018 11:38 AM Note Text: PHYSICAL THERAPY MISSED VISIT SERVICE DATE: 12/18/2018 SERVICE TIME: 923 to 923 ROOM: [id number] Attempted Evaluation. Patient not seen due to Incomplete Ord ers. Patient with active bedrest orders. Will re attempt as schedule perm its and as patient is appropriate with updated activity orders. SIGNATURE: Isha Bright PT PATIENT NAME: Venkata Leal DATE: December 18, 2018 TIME: 11:36 AM THERAPY NT HNO ID: [id number] Normal 12-18-2018 [facility] Author: Rocío Carvalho ([id number]) Service: Occupational Therapy Author Type: Occupational Therapist Type: Therapy (PT/OT/Speech/Resp) Filed: 12/18/2018 8:47 AM Note Text: OCCUPATIONAL THERAPY MISSED VISIT SERVICE DATE: 12/18/2018 SERVICE TIME: 0846 to 0846 ROOM: [place] [address] Attempted Evaluation. Patient not seen due to Illness. Winnie payton has a bedrest order. Will re attempt as patient appropriate for oc cupational therapy evaluation. SIGNATURE: Rocío Carvalho, DEEPTIR/L PATIENT NAME: Venkata ng DATE: December 18, 2018 TIME: 8:46 AM renal function panel on 2018-12-18 Albumin [Mass/Vol] 3.3 3.9-4.9 g/dL Low 12-18-2018 [facility] ([id number]) Comment: Result Comment: Rechecked Performed By: #### CBCDIF, P T, PTT, CK, CMP, LIPA, MG1 #### [facility] [address] [facility] [phone] Anion gap [Moles/Vol] 12 9-18 mmol/L Normal 12-19-19 [facility] (21793) Comment: Performed By: #### CBCDIF, P T, PTT, CK, CMP, LIPA, MG1 #### [facility] [address] [facility] [phone] Calcium [Mass/Vol] 8.8 8.5-10.2 mg/dL Normal 12-18-2018 [facility] (09744) Comment: Performed By: #### CBCDIF, P T, PTT, CK, CMP, LIPA, MG1 #### [facility] [address] [facility] [phone] Chloride [Moles/Vol] 105 97-105 mmol/L Normal 9 [facility] (62186) Comment: Performed By: #### CBCDIF, P T, PTT, CK, CMP, LIPA, MG1 #### [facility] [address] [facility] [phone] CO2 [Moles/Vol] 23 22-30 mmol/L Normal 12-18-2018 [facility] (37582) Comment: Performed By: #### CBCDIF, P T, PTT, CK, CMP, LIPA, MG1 #### [facility] [address] [facility] [phone] Creatinine [Mass/Vol] 2.74 0.73-1.22 mg/dL High 12-19-19 19 [facility] (44137) Comment: Performed By: #### CBCDIF, P T, PTT, CK, CMP, LIPA, MG1 #### [facility] [address] [facility] [phone] eGFR- Amer. 28 Normal 12-18-2018 [facility] (01107) Comment: Performed By: #### CBCDIF, P T, PTT, CK, CMP, LIPA, MG1 #### [facility] [address] [facility] [phone] GFR/1.73 sq M predicted among 23 . Normal 12-18-2018 [facility] (00848) non-blacks MDRD (S/P/Bld) [Vol rate/Area] Comment: Result Comment: eGFR (Estima pratik GFR) Units of measure: mL/min/1.73 meters squared eGFR is derived from the ree xpressed MDRD Study equation using the following parameters: serum creatinine, age, gender and race. The creatinine assay has been calibrated to be traceable to IDMS. An eGFR <60 mL/min/1.73m2 fo r >3 months is consistent with chronic kidney disease. Refer to KDOQI guidelines for clinical interpretation. In patients with unstable re nal function, e.g. those with acute kidney injury, the eGFR may not accurately reflect actual GFR. Performed By: #### CBCDIF, P T, PTT, CK, CMP, LIPA, MG1 #### [facility] [address] [facility] [phone] Glucose [Mass/Vol] 113 74-99 mg/dL High 12-18-2018 [facility] (55924) Comment: Result Comment: The [place] [employer] (ADA) provides guidance for cutoff values for fasting glucose and random glucose. The ADA defines fasting as no caloric intake for at least 8 hours. Fas ting plasma glucose results between 100 to 125 mg/dL indicate increased risk for diabetes (prediabetes). Fasting plasma glucose resul ts greater than or equal to 126 mg/dL meet the criteria for diagnosis of diabetes. In the absence of unequivocal hyperglycemia, results should be confirmed by repeat testing. In a patient with classic s ymptoms of hyperglycemia or hyperglycemic crisis, random plasma glucose results greater than or equal to 200 mg/dL meet the criteria for diagnosis of diabetes. Reference: Standards of [facility] in Diabetes 2016, [place] [employer] Association. Diabetes Care. 2016.39(Suppl 1). Performed By: #### CBCDIF, P T, PTT, CK, CMP, LIPA, MG1 #### [facility] [address] [place] [address] Phosphate [Mass/Vol] 3.4 2.7-4.8 mg/dL Normal 9 [facility] (91312) Comment: Performed By: #### CBCDIF, P T, PTT, CK, CMP, LIPA, MG1 #### [facility] [address] [place] [address] Potassium [Moles/Vol] 4.8 3.7-5.1 mmol/L Normal 12-19-19 19 [facility] (60645) Comment: Performed By: #### CBCDIF, P T, PTT, CK, CMP, LIPA, MG1 #### [facility] [address] [place] [address] Sodium [Moles/Vol] 140 136-144 mmol/L Normal 12-18-2018 [facility] (69901) Comment: Performed By: #### CBCDIF, P T, PTT, CK, CMP, LIPA, MG1 #### [facility] [address] [place] [address] Urea nitrogen [Mass/Vol] 30 9-24 mg/dL High 12-18 [facility] (13120) Comment: Performed By: #### CBCDIF, P T, PTT, CK, CMP, LIPA, MG1 #### [facility] [address] [place] [address] protime on PT Coag (PPP) [Time] 1.1 0.9-1.3 s Normal [address] [place] [address] ([id number]) Comment: Result Comment: Vitamin K An tagonist (VKA) Therapeutic Range: INR 2 to 3 (Target INR of 2.5) Note: For patients treated w ith VKA drugs, such as warfarin, the [place] [employer] 2012 Guideline recommends a therapeutic INR range of 2 to 3 (target INR of 2.5). This recommendation includes high-risk patients with antiphospholipid syndrome with previous arterial or venous thromboembolism, current-generation mechanical or bioprosthetic aortic heart valve replacement. Note: Patients with heavy duty mechanic al aortic valve replacement and additional risk factors for thromboembolic events (atrial fibrillation, previous thromboembolism, LV dysfunction, hypercoagulable conditions) or an older generation mecha nical AVR (i.e., ball in-Cage) or any mechanical MVR should have a INR therapeutic range of 2.5 to 3.5 (target INR of 3). Sawyer EDMONDSON, et al. Chest 2012 , 141:7S-47S Kathy BRITO et al. [facility] 20 , 70: [phone] Performed By: #### CBCDIF, P T, PTT, CK, CMP, LIPA, MG1 #### [facility] [address] [facility] [phone] PT Coag (PPP) [Time] 11.9 9.7-13.0 sec Normal 9 [facility] (01265) Comment: Performed By: #### CBCDIF, P T, PTT, CK, CMP, LIPA, MG1 #### [facility] [address] [facility] [phone] progress on 2018-12 PROGRESS HNO ID: [id number] Normal 12-18-2018 [facility] Author: Karl Holden ([id number]) Service: Hospital Medicine Author Type: Physician Type: Progress Notes Filed: 12/18/2018 9:55 AM Note Text: DEPARTMENT OF HOSPITAL MEDICINE PROGRESS NOTE CC: F/u LOR and high ostomy output HPI: No new symptoms. He thinks the ostomy output is less. D ocumented ostomy output appears less. Review of Systems Respiratory: Negative for shortness of breath. Cardiovascular: Negative for chest pain. Gastrointestinal: Negative for abdominal pain. Exam: BP 123/56 Pulse 63 Temp 36.7 ?C (98.1 ?F) (Oral) Resp 18 Ht 175.3 cm (5' 9) Wt 101 kg (222 lb 10.6 oz) SpO2 96% B WA 32.88 kg/m? Physical Exam Constitutional: He is oriented to person, place, and time. N o distress. HENT: Head: Normocephalic. Eyes: EOM are normal. Cardiovascular: Normal rate and regular rhythm. Pulmonary/Chest: Effort normal and breath sounds normal. Abdominal: Soft. He exhibits distension. There is no tendern ess. Right sided ostomy. Healing lap scars from surgery prior to admission Musculoskeletal: He exhibits no edema. Neurological: He is alert and oriented to person, place, and time. Skin: Skin is warm. He is not diaphoretic. Skin tear 1 cm right knee Psychiatric: He has a normal mood and affect. 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 Currently, Nephrology following LOR and IVF replacement dosi ng and GI/Surgery ordering additional diagnostic tests for evaluati ng the high ostomy output and trialing medications to normalize output. Will await clearance by nephro/GI/Surgery to transition home when ready or if alternative dispo plan exists. Plan: Active Hospital Problems Diagnosis Date Noted - High output ileostomy (HCC) 12/17/2018 Assessment AND Plan Note: See plan above. Appears to be improving with loperamide and bile acid sequestrant - Obesity, Class I, BMI 30-34.9 12/17/2018 - 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) 12/09/2017 Assessment AND Plan Note: stable - Crohn's disease of small intestine with intestinal obstruc tion (HCC) 04/02/2017 Assessment AND Plan Note: Stable. Continue home medications + loperamide - Chronic diastolic heart failure (HCC) 05/03/2016 Assessment AND Plan Note: stable - Acute renal failure superimposed on stage 3 chronic kidney disease (HCC) 05/03/2016 Assessment AND Plan Note: Improving. 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 Will DC home on lantus/lispro or regula r/levemir depending on insurance coverage - Carcinoid tumor 12/27/2010 Assessment AND Plan Note: S/p surgical therapy ~2010 - CAD (coronary artery disease) Assessment AND Plan Note: stable - Peripheral vascular disease, unspecified (HCC) 01/31/2005 Assessment AND Plan Note: Stable. No claudication reported VTE Prophylaxis: SCD Plan of Care visit Complete: yes SIGNATURE: Karl Holden MD Work Cell #: [phone] DATE: December 18, 2018 TIME: 9:49 AM magnesium on 2018-02 Magnesium [Mass/Vol] 1.5 1.7-2.3 mg/dL Low 9 [facility] ([id number]) Comment: Performed By: #### CBCDIF, P T, PTT, CK, CMP, LIPA, MG1 #### [facility] [address] [facility] [phone] consult prog on 10-28-00 CONSULT PROG HNO ID: [id number] Normal 12-19-19 [facility] Author: Kalia Lamas ([id number]) Service: Nephrology Author Type: Physician Type: Consult Progress Note Filed: 12/18/2018 10:53 AM Note Text: Patient seen and examined. He feels a bit better. It appears ostomy output has decreased a little since the day prior. He is out of ICU . Family updated at bedside. Blood pressure 123/56, pulse 63, temperature 36.7 ?C (98.1 ? F), temperature source Oral, resp. rate 18, height 175.3 cm (5' 9), weight 101 kg (222 lb 10.6 oz), SpO2 96 %. Intake/Output Summary (Last 24 hours) at 12/18/2018 1048 Last data filed at 12/18/2018 1033 Gross per 24 hour Intake 1962 ml Output 1810 ml Net 152 ml Gen: NAD Resp: CTA CVS: no rub Abd: soft, RLQ ostomy with yellow liquid stool Ext: no edema K 4.8, HCO 23, Cr 2.7, Mg 1.5 Hb 9.3 Impression: 1. LOR on CKD 3 (presumed current baseline Cr 1.8) likely du e to diuretic and ostomy induced volume depletion. -improving with IVF 2. Hyperkalamia due to #1 and spironolactone as outpatient -improving 3. Fe def anemia 4. Hypomagnesemia 5. Underlying IBD probably Crohns on 5-ASA therapy Plan: 1. Decrease IVF to 100cc/hr 2. Replace IV Mg 3. Would not restart diuretics in house or on discharge for now 4. DC hidalgo 5. GI and Surgery following for ostomy output mgmt 6. Will send off CKD labs when Cr nears presumed baseline in high 1 range. cbc on 2018-12-18 Erythrocyte distribution 14.9 11.5-15.0 % Normal 12-18 [facility] ([id number]) width (RBC) [Ratio] Comment: Performed By: #### CBCDIF, P T, PTT, CK, CMP, LIPA, MG1 #### [facility] [address] [place], [place] [phone] Hematocrit (Bld) [Volume 29.1 39.0-51.0 % Low 12-18 [facility] ([id number]) fraction] Comment: Performed By: #### CBCDIF, P T, PTT, CK, CMP, LIPA, MG1 #### [facility] [address] [place], [place] [address] Hemoglobin (Bld) [Mass/Vol] 9.3 13.0-17.0 g/dL Low [facility] ([id number]) Comment: Performed By: #### CBCDIF, P T, PTT, CK, CMP, LIPA, MG1 #### [facility] [address] [place], [place] [phone] MCH (RBC) [Entitic mass] 31.4 26.0-34.0 pG Normal 12-18 [facility] ([id number]) Comment: Performed By: #### CBCDIF, P T, PTT, CK, CMP, LIPA, MG1 #### [facility] [address] [place] [address] MCHC (RBC) [Mass/Vol] 32.0 30.5-36.0 g/dL Normal 12-19-19 19 [facility] ([id number]) Comment: Performed By: #### CBCDIF, P T, PTT, CK, CMP, LIPA, MG1 #### [facility] [address] [facility] [phone] MCV (RBC) [Entitic vol] 98.3 80.0-100.0 fL Normal 12-18 [facility] ([id number]) Comment: Performed By: #### CBCDIF, P T, PTT, CK, CMP, LIPA, MG1 #### [facility] [address] [place], [place] [address] Platelet mean volume (Bld) 12.7 9.0-12.7 fL Normal [facility] ([id number]) [Entitic vol] Comment: Performed By: #### CBCDIF, P T, PTT, CK, CMP, LIPA, MG1 #### [facility] [address] [place] [address] Platelets (Bld) [#/Vol] 118 150-400 k/uL Low 2018 [facility] ([id number]) Comment: Performed By: #### CBCDIF, P T, PTT, CK, CMP, LIPA, MG1 #### [facility] [address] [place] [address] RBC (Bld) [#/Vol] 2.96 4.20-6.00 m/uL Low 12-18-2018 [facility] ([id number]) Comment: Performed By: #### CBCDIF, P T, PTT, CK, CMP, LIPA, MG1 #### [facility] [address] [place] [address] WBC (Bld) [#/Vol] 3.04 3.70-11.00 k/uL Low 12-18-2018 [facility] ([id number]) Comment: Performed By: #### CBCDIF, P T, PTT, CK, CMP, LIPA, MG1 #### [facility] [address] [place] [address] case managem on 10-28-00 CASE MANAGEM HNO ID: [id number] Normal 12-19-19 [facility] Author: Christa (Rn) HITESH Shine ([id number]) Service: Case Management Author Type: Registered Nurse Type: Care Mgt Progress Note Filed: 12/18/2018 2:01 PM Note Text: CARE MANAGEMENT PROGRESS NOTE SERVICE DATE: 12/18/2018 SERVICE TIME: 9:34 AM LOS: 2 days Needs Prior to Discharge: To Be Determined;Home Care Order;O T/PT Evaluation;Other: See Comment(medical clearance) EMR reviewed. PT/OT pending. 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 D/C need TBD. CM assigned will c ont to monitor. SIGNATURE: Christa Shine RN PATIENT NAME: Venkata Leal DATE: December 18, 2018 TIME: 9:34 AM PAGER/CONTACT #: [phone] vitamin b12 on 2018 Cobalamin (Vitamin B12) >2000 232-1245 pg/mL High 2018 [facility] ([id number]) [Mass/Vol] Comment: Performed By: #### CBCDIF, P T, PTT, CK, CMP, LIPA, MG1 #### [facility] [address] [place], [place] [address] staph aureus pcr on 2018-12-17 MRSA PCR Negative for MRSA by PCR. Normal 11-19 [facility] ([id number]) Comment: Performed By: #### CBCDIF, P T, PTT, CK, CMP, LIPA, MG1 #### [facility] [address] [place], [place] [address] S aureus Spec Source Nasal Normal 9 [facility] ([id number]) Comment: Performed By: #### CBCDIF, P T, PTT, CK, CMP, LIPA, MG1 #### [facility] [address] [place] [phone] Staph aureus PCR Negative for Normal 12-17-2018 [facility] Staphylococcus aureus by ([id number]) PCR. Comment: Performed By: #### CBCDIF, P T, PTT, CK, CMP, LIPA, MG1 #### [facility] [address] [place], [place] [address] sodium,urine,random on 2018-12-17 Sodium (U) [Moles/Vol] 80 14-216 mmol/L Normal 019 [facility] ([id number]) Comment: Performed By: #### CBCDIF, P T, PTT, CK, CMP, LIPA, MG1 #### [facility] [address] [facility] [phone] sepsis lactate on Sepsis Lactate 2.2 0.5-2.0 mmol/L High 12-17-2018 [facility] ([id number]) Comment: Result Comment: Called to an d read back by: Gita Crawford RN [place] [facility] 1 0019 by Gita Carson. Performed By: #### CBCDIF, P T, PTT, CK, CMP, LIPA, MG1 #### [facility] [address] [facility] [phone] protime on PT Coag (PPP) [Time] 1.1 0.9-1.3 s Normal 9 [facility] ([id number]) Comment: Result Comment: Vitamin K An tagonist (VKA) Therapeutic Range: INR 2 to 3 (Target INR of 2.5) Note: For patients treated w ith VKA drugs, such as warfarin, the [place] [employer] 2012 Guideline recommends a therapeutic INR range of 2 to 3 (target INR of 2.5). This recommendation includes high-risk patients with antiphospholipid syndrome with previous arterial or venous thromboembolism, current-generation mechanical or bioprosthetic aortic heart valve replacement. Note: Patients with heavy duty mechanic al aortic valve replacement and additional risk factors for thromboembolic events (atrial fibrillation, previous thromboembolism, LV dysfunction, hypercoagulable conditions) or an older generation mecha nical AVR (i.e., ball in-Cage) or any mechanical MVR should have a INR therapeutic range of 2.5 to 3.5 (target INR of 3). Sawyer EDMONDSON, et al. Chest 2012 , 141:7S-47S Kathy BRITO et al. [facility] 20 , 70: 252-289 Performed By: #### CBCDIF, P T, PTT, CK, CMP, LIPA, MG1 #### [facility] [address] [facility] [phone] PT Coag (PPP) [Time] 11.7 9.7-13.0 sec Normal 9 [facility] ([id number]) Comment: Performed By: #### CBCDIF, P T, PTT, CK, CMP, LIPA, MG1 #### [facility] [address] [facility] [phone] PT Coag (PPP) [Time] 1.1 0.9-1.3 s Normal 9 [facility] ([id number]) Comment: Result Comment: Vitamin K An tagonist (VKA) Therapeutic Range: INR 2 to 3 (Target INR of 2.5) Note: For patients treated w ith VKA drugs, such as warfarin, the [place] [employer] 2012 Guideline recommends a therapeutic INR range of 2 to 3 (target INR of 2.5). This recommendation includes high-risk patients with antiphospholipid syndrome with previous arterial or venous thromboembolism, current-generation mechanical or bioprosthetic aortic heart valve replacement. Note: Patients with heavy duty mechanic al aortic valve replacement and additional risk factors for thromboembolic events (atrial fibrillation, previous thromboembolism, LV dysfunction, hypercoagulable conditions) or an older generation mecha nical AVR (i.e., ball in-Cage) or any mechanical MVR should have a INR therapeutic range of 2.5 to 3.5 (target INR of 3). Sawyer EDMONDSON, et al. Chest 2012 , 141:7S-47S Kathy BRITO et al. [facility] 20 , 70: 252-289 Performed By: #### CBCDIF, P T, PTT, CK, CMP, LIPA, MG1 #### [facility] [address] [facility] [phone] PT Coag (PPP) [Time] 11.7 9.7-13.0 sec Normal 9 [facility] ([id number]) Comment: Performed By: #### CBCDIF, P T, PTT, CK, CMP, LIPA, MG1 #### [facility] [address] [facility] [phone] progress on 2018-11 PROGRESS HNO ID: [id number] Normal 12-17-2018 [facility] Author: Karl Holden ([id number]) Service: Hospital Medicine Author Type: Physician Type: Progress Notes Filed: 12/17/2018 2:50 PM Note Text: DEPARTMENT OF HOSPITAL MEDICINE PROGRESS NOTE CC: F/u lor HPI: No new symptoms Review of Systems Respiratory: Negative for shortness of breath. Cardiovascular: Negative for chest pain. Gastrointestinal: Negative for abdominal pain. Exam: BP 103/59 Pulse 64 Temp 36.7 ?C (98.1 ?F) Resp 23 Ht 175.3 cm (5' 9) Wt 98 kg (216 lb 0.8 oz) SpO2 96% BMI 31.91 kg /m? Physical Exam Constitutional: He is oriented to person, place, and time. N o distress. HENT: Head: Normocephalic. Eyes: EOM are normal. Cardiovascular: Normal rate and regular rhythm. Pulmonary/Chest: Effort normal and breath sounds normal. Abdominal: Soft. He exhibits distension. There is no tendern ess. Right sided ostomy with highly liquid contents. Healing lap scars from surgery prior to admission Musculoskeletal: He exhibits no edema. Neurological: He is alert and oriented to person, place, and time. Skin: Skin is warm. He is not diaphoretic. Skin tear 1 cm right knee Psychiatric: He has a normal mood and affect. 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 Placed on loperamide to reduce ostomy output and will await gen surg/GI recs on further medication adjustments. Followed by renal fo r LOR. Once patient has stability in Cr and potassium, can transition ho me to f/u with renal outpt for monitoring recovery. Plan: Active Hospital Problems Diagnosis Date Noted - High output ileostomy (HCC) 12/17/2018 Assessment AND Plan Note: Trial of loperamide. 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 Continue home medications + loperamide - Chronic diastolic heart failure (HCC) 05/03/2016 Assessment AND Plan Note: stable - Acute renal failure superimposed on stage 3 chronic kidney disease (HCC) 05/03/2016 Assessment AND Plan Note: Improving. 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 No claudication reported VTE Prophylaxis: scd. Med low risk Plan of Care visit Complete: yes SIGNATURE: Karl Holden MD Work Cell #: [phone] DATE: December 17, 2018 TIME: 2:31 PM phosphorus on 12-17 Phosphate [Mass/Vol] 4.2 2.7-4.8 mg/dL Normal 9 [facility] ([id number]) Comment: Performed By: #### CBCDIF, P T, PTT, CK, CMP, LIPA, MG1 #### [facility] [address] [facility] [phone] ova and parasite scr on 2018-12-17 Ova and Parasite Sp. Request/Comment: - Speci men received in Ova and Parasite Kit. Normal 12-17-2018 [facility] Scr ([id number]) Culture Result - Negative fo r Giardia lamblia and Cryptosporidium species by EIA. Comment: Performed By: #### CBCDIF, P T, PTT, CK, CMP, LIPA, MG1 #### [facility] [address] [facility] [phone] occult blood screen on 2018-12-17 Occult Blood Screen Negative Normal 12-17-2018 [facility] ([id number]) Comment: Performed By: #### CBCDIF, P T, PTT, CK, CMP, LIPA, MG1 #### [facility] [address] [facility] [phone] Occult Blood Source: Stool Normal 9 [facility] ([id number]) Comment: Performed By: #### CBCDIF, P T, PTT, CK, CMP, LIPA, MG1 #### [facility] [address] [facility] [phone] nursing prog on 10-27-30 NURSING HNO ID: [id number] Normal 12-17-2018 [place] [facility] Author: John (Rn) HITESH [facility] Service: Nursing ([id number] 000) Author Type: Registered Nurse Type: Nursing Progress Note Filed: 12/17/2018 8:41 PM Note Text: Nursing Progress Note Patient Name: Venkata Leal Patient Location: [place] [id number] Daily Note:0730- pt. Resting and no distress. 0800-v/s done, urine noted 0 at this time, ostomy bag intact and draining yellow with fle cks emptied. Assessment done. Inc. Healing. [place] patent. Right elbow sta t wrap intact. scd's on. Iv in his left a/c infusing well. 0900- po meds gi jesus, and noted many new orders. 0930- SW in with pt. Also.1000- urine noted . And still very low. Lab work drawn. Iv insulin and iv d50 given, and f sbs done prior and LR bolus infusing per order. 1030- fsbs done and noted. 1100- bolus done and LR at 75cc/hr, and fsbs done. Then changed ivf to N S at 150cc/hr. 1200- fsbs done and no ssi needed. V/s done, po meds given, and 1230- changed to reg. Diet. And assessment unchanged, and urine no pratik. And urine noted after bolus. 1300- po meds given, and ostomy emptied.1 413- in with pt. And orders noted for transfer to floor. 1600- aw aiting room and v.s done, assessment unchanged, in with pt. And isolation applied d/t ostomy stool sent for c-diff studies and many ot hers. Pt. alos turned to left side. 1700- questran noted [id number]- noted new room and fsbs done, urine obtained, and questran given and insulin 2 units for eating, and creon and emir. Well. And pt. Moved from bed to n ew bed and taken to [facility] via bed and transport team. After report give n to -[facility] nurse Karla. Pt. Resting and family went with him. This note was completed by: John Moore RN NURSING HNO ID: [id number] Normal 12-17-2018 [facility] Author: Jovi (Rn) HITESH [facility] Service: ? ([id number]) Author Type: Registered Nurse Type: Nursing Progress Note Filed: 12/17/2018 12:58 AM Note Text: Nursing Progress Note Patient Name: Venkata Leal Patient [facility]/[id number] Transfer Note: Patient transferred into room/unit ICU 1 in stable condition . VSS. Actions taken: no other need. Will continue to monitor. This note was completed by: Jovi Kumar Rn magnesium on 2018-02 Magnesium [Mass/Vol] 1.7 1.7-2.3 mg/dL Normal 9 [facility] ([id number]) Comment: Performed By: #### CBCDIF, P T, PTT, CK, CMP, LIPA, MG1 #### [facility] [address] [facility] [phone] lactate on Lactate [Moles/Vol] 3.0 0.5-2.2 mmol/L High 12-17-2018 [facility] ([id number]) Comment: Performed By: #### CBCDIF, P T, PTT, CK, CMP, LIPA, MG1 #### [facility] [address] [facility] [phone] iron and tibc on 05-12-30 Iron [Mass/Vol] 30 41-186 ug/dL Low 12-17-2018 [facility] ([id number]) Comment: Performed By: #### CBCDIF, P T, PTT, CK, CMP, LIPA, MG1 #### [facility] [address] [facility] [phone] TIBC 372 232-386 ug/dL Normal 12-17-2018 [place] [facility] ([id number]) Comment: Performed By: #### CBCDIF, P T, PTT, CK, CMP, LIPA, MG1 #### [facility] [address] [facility] [phone] Transferrin Saturatn 8 15-57 % Low 9 [facility] ([id number]) Comment: Performed By: #### CBCDIF, P T, PTT, CK, CMP, LIPA, MG1 #### [facility] [address] [facility] [phone] history physical on 2018-12-17 HISTORY HNO ID: [id number] Normal 12-17-2018 [place] [facility] Author: [facility] Service: Critical Care ([id number]) Author Type: Physician Type: HANDP Filed: 12/17/2018 1:48 PM Note Text: SERVICE DATE: 12/17/2018 SERVICE TIME: 1:11 PM ICU HANDP NOTE HPI: 68yo M hx esophageal varices and portal HTN s/p exlap i leocolic anastamosis revision for ileal stricture approximately 3 wee ks ago who presents with increased ostomy output, syncopal episode, LOR and hyperkalemia (6.1-->5.4). He had been having high ostomy out put and was asked to cut down on fluid intake, had some dehydration with acute kidney injury (cr 1.8 baseline) and was told therefore to hold his home lasix dose. He denies chest pain, SOB, abdominal pain, nausea, vom iting or GI bleeding. 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 - Esophageal reflux - Hypothyroidism - Internal hemorrhoids without mention of complication - Irritable bowel syndrome - Lipoma of other specified sites - Mesenteric mass carcinoid - GOMEZ (nonalcoholic steatohepatitis) - ALEXIS (obstructive sleep apnea) DME [employer] BiPAP - Oxygen order for 02 bleed in DME is [facility] - Other and unspecified hyperlipidemia - PAD (peripheral artery disease) (HCC) - Stroke (HCC) 2008 TIA-questionable diagnosis - Type 2 diabetes mellitus with complication (HCC) 6 - Unspecified essential hypertension - Vitamin B12 deficiency - Vitamin D deficiency PAST SURGICAL HISTORY Procedure Laterality Date - APPENDECTOMY 1970 - ARTHROS SHLDR DX W/WO SYNV BX Right 09/06/15 Right shoulder diagnostic arthroscopy - BALLN ANGIOPLASTY PERC,FEM-POP 1997 - BALLN ANGIOPLASTY PERC,FEM-POP 09/24/06 - CATHETER ART SYS-1ST ORD, ABDOM, PELVIC, OR LOWER 1997 - CATHETER ART SYS-1ST ORD, ABDOM, PELVIC, OR LOWER 1997 with stent - CATHETER ART SYS-1ST ORD, ABDOM, PELVIC, OR LOWER 09/24/06 - COLONOSCOP W/ OR W/O [facility]SH SPEC 05/30/2004 Colonoscopy - COLONOSCOP W/ OR W/O BRSH SPEC 05/18/14 Colonoscopy - [facility] W/BX 10/24/06 Esophagiti,gastritis,duodenitis - EGD W/O OR W/BRUSH/WASH 10/26/1998 EGD - HEART SURGERY HX Stent 1995 - KNEE SCOPE,DIAGNOSTIC Right 2004 Arthroscopy, knee - LAP INC HERNIA REPAIR 09-29-12 - LAPAROSCOPIC CHOLEYCYSTECTOMY 08 Cholecystectomy, lap - PAST SURGICAL HISTORY OF 2006 stent placement Both legs - PAST SURGICAL HISTORY OF 12-08-10 small bowel resection [facility] main - cancerious - PAST SURGICAL HISTORY OF 06/19/2015 Left eye cataract surgery - PERCATAN, EXTREMITY ARTERY 09/24/06 - REMOVAL OF TONSILS,<12 Y/O Tonsillectomy - REPAIR COMPL ROTATOR CUFF AVULSN,CHR Right 09/06/15 Subacromial decompression, rotator cuff repair, and labral d ebridement - REPAIR ING HERNIA,5+Y/O,REDUCIBL Hernia repair, inguinal lt FAMILY HISTORY Problem Relation Age of Onset - Diabetes Mother - other (Uterine cancer) Mother - Heart Father [place] - Hypertension Father - Heart Sister 60age - Stroke Sister - Diabetes Sister 65age - other (fibromyalgia) Sister x 4 - Diabetes Sister oral meds Social History Occupational History Employer: [employer] Tobacco Use Smoking status: Former Smoker Packs/day: 1.00 Years: 35.00 Pack years: 35 Types: Cigarettes Start date: 02/17/1971 Quit date: 02/17/2006 Years since quittin.8 Smokeless tobacco: Never Used Substance and Sexual Activity Alcohol use: No Alcohol/week: 1.7 standard drinks Drug use: No Sexual activity: Yes Partners: Female ALLERGIES Allergen Reactions - Lipitor [Atorvastat* Intolerance myalgias - Zocor [Simvastatin] Intolerance myalgias - Novacain [Other] Intolerance Headache when it wears off - Lescol [Fluvastatin* Intolerance myalgia PRIOR TO ADMISSION MEDICATIONS: Medications Prior to Admission: COMPOUNDED PRESCRIPTION Please dispense a rollator with a se at. Disp: 1 Each Rfl: 0 Taking oxyCODONE ir (OXYIR) 5 mg capsule Take 1 capsule by mouth tw ice daily as needed for Pain (May take one additional capsule for breakth rough pain) for up to 30 days. Disp: 70 capsule Rfl: 0 Taking acetaminophen (TYLENOL) 325 mg tablet Take 2 tablets by mout h every 6 hours as needed for Pain. Disp: Rfl: Taking ondansetron (ZOFRAN) 8 mg tablet Take 1 tablet by mouth ever y 8 hours as needed. Disp: 20 tablet Rfl: 2 Taking insulin aspart protamine-insulin aspart (NovoLOG 70-30) 100 unit/mL flexpen INJECT 35 UNITS SUBCUTANEOUSLY BEFORE BREAKFAST AND 25 UNITS BEFORE EVENING MEAL Disp: 20 Pen Rfl: 1 Taking dicyclomine (BENTYL) 10 mg capsule TAKE 1 CAPSULE BY MOUTH B EFORE MEALS AND AT BEDTIME. Disp: 360 capsule Rfl: [address] (PROTONIX) 20 mg tablet Take 1 tablet by sheryl th daily before breakfast. Take on empty stomach, 1/2 hr before meal. Disp: 30 tablet Rfl: 2 Taking famotidine (PEPCID) 20 mg tablet TAKE 1 TABLET BY MOUTH TWIC E DAILY Disp: 60 tablet Rfl: 2 Taking gabapentin (NEURONTIN) 300 mg capsule Take 1 capsule by mout h daily at bedtime for 180 days. Disp: 90 capsule Rfl: 1 Taking sertraline (ZOLOFT) 100 mg tablet Take 1 tablet by mouth onc e daily. Disp: 30 tablet Rfl: 11 Taking amLODIPine (NORVASC) 5 mg tablet Take 1 tablet by mouth once daily. Disp: 90 tablet Rfl: 3 Taking spironolactone (ALDACTONE) 25 mg tablet Take 1 tablet by sheryl th twice daily. Disp: 180 tablet Rfl: 3 Taking nicotine polacrilex (NICORETTE) 2 mg gum Take 1 Each by mout h every 2 hours as needed. Disp: Rfl: Taking metoprolol tartrate, short acting, (LOPRESSOR) 50 mg tablet Take 0.5-1 tablets by mouth twice daily. As directed Disp: 180 tablet R fl: 3 Taking levothyroxine (LEVOXYL) 137 mcg tablet Take 1 tablet by mout h once daily. Take on empty stomach. For Thyroid. Disp: 90 tablet Rfl: 3 T aking flash glucose scanning reader (FREESTYLE JULIA 14 DAY READER ) misc Use as directed E 11.65 Disp: 1 Each Rfl: 0 Taking flash glucose sensor (FREESTYLE JULIA 14 DAY SENSOR) kit USE DIRECTED E11.65 Disp: 2 Kit Rfl: 11 Taking BIPAP Change settings: Bilevel PAP 30/25 cmH2O with humidifi cation and back up rate 10 with 2 L bled in HS. Disp: 1 Device Rfl: 11 Taking lidocaine (LIDODERM) 5 % Apply 1 Patch as directed every 12 hours. Remove old patch prior to placing new patch. Disp: 30 Patch Rfl: 2 Taking furosemide (LASIX) 20 mg tablet TAKE 1TABLETS ONE TIME DAILY (Patient not taking: Reported on 12/15/2018 ) Disp: 270 tablet Rfl: 1 Not Taking Mesalamine (PENTASA) 500 mg CR capsule Take 2 capsules by mo uth four times daily. Disp: 720 capsule Rfl: 3 Taking rosuvastatin (CRESTOR) 5 mg tablet Take 1 tablet by mouth tw ice a week. Disp: Rfl: Taking finasteride (PROSCAR) 5 mg tablet Take 1 tablet by mouth onc e daily. Disp: 90 tablet Rfl: 3 Taking tamsulosin ER (FLOMAX) 0.4 mg cap Take 1 capsule by mouth tw ice daily. Disp: 180 capsule Rfl: 3 Taking DULoxetine (CYMBALTA) 20 mg capsule Take 1 capsule by mouth once daily. Disp: 90 capsule Rfl: 3 Taking melatonin 10 mg subl Dissolve 1 tablet under the tongue at b edtime as needed. Disp: Rfl: Taking clopidogrel (PLAVIX) 75 mg tablet Take 1 tablet by mouth onc e daily. Disp: 90 tablet Rfl: 3 Taking colesevelam (WELCHOL) 625 mg tablet Take 3 tablets by mouth once daily. Primarily for postcholecystectomy syndrome so dose does not need increased Disp: 270 tablet Rfl: 3 Taking nmobpb-wgfqovmr-tbcruuq (CREON) 24,000-76,000 -120,000 unit cpDR Take 3 capsules by mouth three times daily with meals. Disp: 500 ca psule Rfl: 3 Taking Wheel Chair diana Wheelchair with foot supports Dx: spinal st enosis, displacement of lumbar intervertebral disc Disp: 1 Device Rf l: 0 Taking cholecalciferol, Vitamin D3, (VITAMIN D3) 50,000 unit cap ca psule Take 1 capsule by mouth twice a week. Disp: 24 capsule Rfl: 2 Takin g OCTREOTIDE ACETATE (SANDOSTATIN INJECTION) by INJECTION(UNSP ECIFIED PARENTERAL ROUTES) route once every month. Disp: Rfl: Taking CYANOCOBALAMIN, VITAMIN B-12, (B-12 COMPLIANCE INJECTION) by INJECTION(UNSPECIFIED PARENTERAL ROUTES) route once every mo nth. Disp: Rfl: Taking blood sugar diagnostic (ONETOUCH VERIO) test strip Test bloo d sugar(s) 3 times daily and as needed for symptoms of high or low sugars . Dx: Type 2 DM - Uncontrolled . Insulin: Yes Disp: 100 Strip Rfl: 1 1 Taking Insulin Mackay, Disposable, (TIESHA PEN NEEDLE) 32 gauge x 5/ 32 ndle Use one needle for each dose. 2/day. Disp: 100 Each Rfl: 11 Chayo baxter COMPOUNDED PRESCRIPTION Lumbar support brace Dx: M48.06, M54 .31, M51.26 Disp: 1 Each Rfl: 0 Taking Lancing Device misc 1 Each twice daily. Dx: Type 2 DM - Unco ntrolled Insulin: Yes Disp: 100 Each Rfl: 11 Taking REVIEW OF SYSTEMS: Constitutional: Positive for fatigue. Negative for chills an d fever. Respiratory: Negative for cough and shortness of breath. Cardiovascular: Negative for chest pain and leg swelling. Gastrointestinal: Negative for abdominal pain, nausea and vo miting. Positive for high ostomy output. Genitourinary: Negative for dysuria, flank pain, frequency a nd hematuria. Neurological: . Negative for numbness and headaches. Objective Admission Weight: Weight: 97.5 kg (215 lb) VITAL SIGNS BP 111/65 Pulse 62 Temp (Src) 97.7 (Oral) Resp 17 Ht 5' 9 (1.75m) Wt 216 lb 0.8 oz (98.0kg) SpO2 92% BMI 31.89 kg/(m2). O2 Therapy: Room Air NaCl 0.9% Last Rate: 150 mL/hr (12/17/18 0559) PHYSICAL EXAM Constitutional: He is oriented to person, place, and time. N o distress. Cardiovascular: Normal rate and intact distal pulses. Pulmonary/Chest: breath sounds clear bilaterally. No respira tory distress. Abdominal: Soft. NT ND +BS, no rebound or guarding; right os kay site pink, c/d/i. Incision no erythema or drainage. Neurological: no focal deficits DATA: Diagnostic tests reviewed for today's visit: Most recent labs and imaging results. ICU Checklist Last Documented/Reviewed time: 12/17/2018 9:17 AM ICU Delirium Status: CAM Negative - no action required Restraint Status: None ICU Mobility-Pt Has Been Out of Bed: Yes Line Status: None Ventilator: None Hidalgo Status: Present, will maintain Hidalgo Status Details: Accurate measurement of urine output GI/Stress Ulcer Prophylaxis: PPI Nutrition is at Goal: NPO VTE Prophylaxis: Chemoprophylaxis: Heparin SQ Mechanical Prophylaxis: Knee hi gh SCD Pressure Injury Status: None ICU Plan Reviewed with RN: Yes ICU Family Update in Last 24 Hours: Family updated ICU Disposition- Is Patient Clinically Ready to Transfer to [facility] or SDU?: No Discharge Planning: Home ASSESSMENT AND PLAN Active Hospital Problems as of 12/17/2018 Noted - Resolved Gastrointestinal High output ileostomy (HCC) 12/17/2018 - Present Current Assessment AND Plan Assessment: s/p revision ~3 weeks ago PLAN: Start imodium Okay for general diet General surgery to evaluate Nephrology Acute kidney injury (HCC) 12/16/2018 - Present Current Assessment AND Plan Assessment:due to volume depletion with high ostomy output a nd diuretic use PLAN: NS at 150cc/hr for another day Stop diuretics and amlodipine Continue to monitor IANDOs Daily BMP Nephrology following, appreciate recs Hyperkalemia 12/17/2018 - Present Current Assessment AND Plan Assessment: medically treated with kayexalate, insulin/dextr ose, improving, no EKG changes, HD stable PLAN: Continue to monitor Medication and Non-Pharmacologic VTE Prophylaxis/Anticoagula nts Anticoagulant AND Antiplatelet Medications (From admission, onward) Start Dose Route Frequency Ordered Stop 12/16/18 2300 clopidogrel 75 mg tab(s) (PLAVIX) 75 mg ORAL DAILY 12/16/18 2247 -- 12/16/18 2230 heparin 5,000 Units injection (Medical Risk Ca tegories) 5,000 Units SUBCUTANEOUS EVERY 12 HOURS 12/16/18 2226 -- 12/16/18 2215 pneumatic compression stockings (fl,oh) VTE Prophylaxis: VTE prophylaxis appropriate SIGNATURE: Catarino Brush MD PATIENT NAME: Venkata Leal DATE: December 17, 2018 TIME: 1:11 PM PAGER/CONTACT #: [phone] ICU STAFF PHYSICIAN NOTE OF PERSONAL INVOLVEMENT IN CARE Seriously ill 68 year old male admitted to ICU on 12/16 for syncopal episode and LOR, likely secondary to hypovolemia precipitate d by increased stoma output. Pt responded appropriately to ivf resuscitation and electrol yte replacement. At present, pt's BP and HR wnl, not requiring pressor suppor t, awake and alert, maintaining oxygen saturation on NC @ 2 L/m. Continue ivf per (dental laboratory technician) Non oliguric LOR, continue to monitor for renal recovery Hold Amlodipine and diuretics F/u BMP @ 1900 Resume diet, general sx on board for post surgical needs Continue fluid support and respiratory/hemodynamic monitorin g Stable for transfer to [facility]. I have reviewed and verified the recent history and physical examination obtained and documented by fellow and I personally participa pratik in the harman components. I have discussed the case and management of the patient's care, exclusive of separately billed procedures which fulfil led the standards for LEVEL 3. SIGNATURE: Kaegan Massey MD DATE: 12/17/2018 TIME: 1:38 PM hiaa, urine,random on 2018-12-17 HIAA, Ur, Random 1.6 0.0-10.0 mg/g Creat Normal 12-17-2018 [facility] ([id number]) Comment: Result Comment: This test wa s developed and its performance characteristics determined by [facility]'s [facility] [place] ([facility]). It has not been cleared or a pproved by the FDA. [facility] is regulated under CLIA as qualified to perform high complexity testing. This test is used for clinic al purposes. It should not be regarded as investigational or for research. Performed By: #### [email or web address] ## ##[facility] [id number] [place], [place] [phone] folate, serum on 05-12-30 Folate [Mass/Vol] 6.7 >4.7 ng/mL Normal 12-17-2018 [facility] ([id number]) Comment: Performed By: #### CBCDIF, P T, PTT, CK, CMP, LIPA, MG1 #### [facility] [address] [facility] [phone] ferritin on 2018-11 Ferritin [Mass/Vol] 70.6 30.3-565.7 ng/mL Normal 9 [facility] ([id number]) Comment: Performed By: #### CBCDIF, P T, PTT, CK, CMP, LIPA, MG1 #### [facility] [address] [facility] [phone] fecal lactoferrin o n 2018-12-17 Fecal Lactoferrin Sp. Request/Comment: - Speci men received in sterile container. Normal 12-17-2018 [facility] ([id number]) Test Result - Negative for l actoferrin, which may indicate the absence of fecal white blood cells Comment: Performed By: #### CBCDIF, P T, PTT, CK, CMP, LIPA, MG1 #### [facility] [address] [place] [phone] enteric bact pnl pcr on 2018-12-17 Campy jejun/coli DNA Not Detected Normal 2018 [facility] ([id number]) Comment: Performed By: #### CBCDIF, P T, PTT, CK, CMP, LIPA, MG1 #### [facility] [address] [place] [address] Salmonella spp. DNA Not Detected Normal [address] [place] [address] ([id number]) Comment: Performed By: #### CBCDIF, P T, PTT, CK, CMP, LIPA, MG1 #### [facility] [address] Shiga toxin gene(s) Not Detected Normal [address] [place] [address] ([id number]) Comment: Performed By: #### CBCDIF, P T, PTT, CK, CMP, LIPA, MG1 #### [facility] [address] Shigella/EIEC DNA Not Detected Normal [address] [place] [address] ([id number]) Comment: Performed By: #### CBCDIF, P T, PTT, CK, CMP, LIPA, MG1 #### [facility] [address] [place] [phone] consult on CONSULT HNO ID: [id number] Normal 12-17-2018 [facility] Author: Cassandra Tobias ([id number]) Service: Gastroenterology Author Type: Physician Type: Consults Filed: 12/18/2018 10:51 AM Note Text: GASTROENTEROLOGY CONSULT NOTE PATIENT NAME: Venkata Leal SERVICE DATE: December 17, 2018 SERVICE TIME: 2:03 PM PRIMARY CARE PHYSICIAN: ANALISA GARVEY MD ATTENDING PHYSICIAN: Keagan Massey MD REASON FOR ADMISSION: Syncope REASON FOR CONSULTATION: High ileostomy output HPI: This is a 68 year old male with a past medical history significant for carcinoid tumor (s/p small bowel resection about 8 years ago), Crohn's disease complicated by ileal stricture s/p resection of neot erminal ileum and ileocolonic anastomosis with diverting loop ileostomy on Pentasa, GOMEZ cirrhosis complicated by esophageal varices, e xocrine pancreatic insufficiency per patient (on Creon), TIA, CAD (o n Plavix), CKD, ALEXIS who presents with syncopal episode. Patient underwe nt bowel resection with diverting loop ileostomy at [facility] and was discharged home one week after surgery. Goal ileostomy outpu t was ~1200 ml/day but this he had increased output for many days follow ing his discharge. He initially tried to decrease his oral intake an d modify his diet but he then became dizzy this worsened up until yesterd ay when he had a syncopal episode. He presented to ER and was found to have LOR and electrolyte abnormalities therefore was admitted to ICU for further management. GI consult has now been requested to aid in june tracy. He reports mild surgical discomfort but is overall improving. H e has mild nausea but no vomiting. No heartburn, dysphagia or odynophag ia. Appetite has been poor over past six months but he actually has been gaining weight which was attributed to fluid retention. Prior to have above surgery patient was having 10-12 stools daily. He was using Imodium with only minimal relief. He is on Plavix for CAD. No ASA or NSAID use . 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 Serafin Henley. ALLERGIES: ALLERGIES Allergen Reactions - Lipitor [Atorvastat* Intolerance myalgias - Zocor [Simvastatin] Intolerance myalgias - Novacain [Other] Intolerance Headache when it wears off - Lescol [Fluvastatin* Intolerance myalgia PAST MEDICAL HISTORY: PAST MEDICAL HISTORY Diagnosis Date - Bladder cancer (HCC) Superficial bladder cancer, status post TURP AND mitomycin-C - Cancer (HCC) intestines and chest, but in remission as of 12-22-14 - Carcinoid tumor s/p removal and octreotide therapy - Central sleep apnea - CKD (chronic kidney disease) stage 3, GFR 30-59 ml/min (HC C) bland UA, baseline Cr in high 1 range - Coronary atherosclerosis of unspecified type of vessel, na tive or graft PCI - 1998 - Depression 11/23/2018 - Diarrhea - Displacement of lumbar 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 thy - Esophageal reflux - Hypothyroidism - Internal hemorrhoids without mention of complication - Irritable bowel syndrome - Lipoma of other specified sites - GOMEZ (nonalcoholic steatohepatitis) cirrhosis on liver biopsy - ALEXIS (obstructive sleep apnea) DME [facility] - Oxygen order for 02 bleed in DME is [facility] - Other and unspecified hyperlipidemia - PAD (peripheral artery disease) (HCC) - Stroke (HCC) 2008 TIA-questionable diagnosis - Type 2 diabetes mellitus with complication (HCC) 6 - Unspecified essential hypertension - Vitamin B12 deficiency - Vitamin D deficiency PAST SURGICAL HISTORY: PAST SURGICAL HISTORY Procedure Laterality Date - APPENDECTOMY 1970 - ARTHROS SHLDR DX W/WO SYNV BX Right 09/06/15 Right shoulder diagnostic arthroscopy - BALLN ANGIOPLASTY PERC,FEM-POP 1997 - BALLN ANGIOPLASTY PERC,FEM-POP 09/24/06 - CATHETER ART SYS-1ST ORD, ABDOM, PELVIC, OR LOWER 1997 - CATHETER ART SYS-1ST ORD, ABDOM, PELVIC, OR LOWER 1997 with stent - CATHETER ART SYS-1ST ORD, ABDOM, PELVIC, OR LOWER 09/24/06 - COLONOSCOP W/ OR W/O BRSH SPEC 05/30/2004 Colonoscopy - COLONOSCOP W/ OR W/O BRSH SPEC 05/18/14 [facility] - [facility] W/BX 10/24/06 Esophagiti,gastritis,duodenitis - EGD W/O OR W/BRUSH/WASH 10/26/1998 EGD - HEART SURGERY HX Stent 1995 - KNEE SCOPE,DIAGNOSTIC Right 2004 Arthroscopy, knee - LAP INC HERNIA REPAIR 09-29-12 - LAPAROSCOPIC CHOLEYCYSTECTOMY 08 Cholecystectomy, lap - PAST SURGICAL HISTORY OF 2006 stent placement Both legs - PAST SURGICAL HISTORY OF 12-08-10 small bowel resection [facility] main - cancerious - PAST SURGICAL HISTORY OF 06/19/2015 Left eye cataract surgery - PERCATAN, EXTREMITY ARTERY 09/24/06 - REMOVAL OF TONSILS,<12 Y/O Tonsillectomy - REPAIR COMPL ROTATOR CUFF AVULSN,CHR Right 09/06/15 Subacromial decompression, rotator cuff repair, and labral d ebridement - REPAIR ING HERNIA,5+Y/O,REDUCIBL Hernia repair, inguinal lt MEDICATIONS: Prior to Admission Medications: Medications Prior to Admission: COMPOUNDED PRESCRIPTION Please dispense a rollator with a se at. Disp: 1 Each Rfl: 0 Taking oxyCODONE ir (OXYIR) 5 mg capsule Take 1 capsule by mouth tw ice daily as needed for Pain (May take one additional capsule for breakth rough pain) for up to 30 days. Disp: 70 capsule Rfl: 0 Taking acetaminophen (TYLENOL) 325 mg tablet Take 2 tablets by mout h every 6 hours as needed for Pain. Disp: Rfl: Taking ondansetron (ZOFRAN) 8 mg tablet Take 1 tablet by mouth ever y 8 hours as needed. Disp: 20 tablet Rfl: 2 Taking insulin aspart protamine-insulin aspart (NovoLOG 70-30) 100 unit/mL flexpen INJECT 35 UNITS SUBCUTANEOUSLY BEFORE BREAKFAST AND 25 UNITS BEFORE EVENING MEAL Disp: 20 Pen Rfl: 1 Taking dicyclomine (BENTYL) 10 mg capsule TAKE 1 CAPSULE BY MOUTH B EFORE MEALS AND AT BEDTIME. Disp: 360 capsule Rfl: [address] (PROTONIX) 20 mg tablet Take 1 tablet by sheryl th daily before breakfast. Take on empty stomach, 1/2 hr before meal. Disp: 30 tablet Rfl: 2 Taking famotidine (PEPCID) 20 mg tablet TAKE 1 TABLET BY MOUTH TWIC E DAILY Disp: 60 tablet Rfl: 2 Taking gabapentin (NEURONTIN) 300 mg capsule Take 1 capsule by mout h daily at bedtime for 180 days. Disp: 90 capsule Rfl: 1 Taking sertraline (ZOLOFT) 100 mg tablet Take 1 tablet by mouth onc e daily. Disp: 30 tablet Rfl: 11 Taking amLODIPine (NORVASC) 5 mg tablet Take 1 tablet by mouth once daily. Disp: 90 tablet Rfl: 3 Taking spironolactone (ALDACTONE) 25 mg tablet Take 1 tablet by sheryl th twice daily. Disp: 180 tablet Rfl: 3 Taking nicotine polacrilex (NICORETTE) 2 mg gum Take 1 Each by mout h every 2 hours as needed. Disp: Rfl: Taking metoprolol tartrate, short acting, (LOPRESSOR) 50 mg tablet Take 0.5-1 tablets by mouth twice daily. As directed Disp: 180 tablet R fl: 3 Taking levothyroxine (LEVOXYL) 137 mcg tablet Take 1 tablet by mout h once daily. Take on empty stomach. For Thyroid. Disp: 90 tablet Rfl: 3 T aking flash glucose scanning reader (FREESTYLE JULIA 14 DAY READER ) misc Use as directed E 11.65 Disp: 1 Each Rfl: 0 Taking flash glucose sensor (FREESTYLE JULIA 14 DAY SENSOR) kit USE DIRECTED E11.65 Disp: 2 Kit Rfl: 11 Taking BIPAP Change settings: Bilevel PAP 30/25 cmH2O with humidifi cation and back up rate 10 with 2 L bled in HS. Disp: 1 Device Rfl: 11 Taking lidocaine (LIDODERM) 5 % Apply 1 Patch as directed every 12 hours. Remove old patch prior to placing new patch. Disp: 30 Patch Rfl: 2 Taking furosemide (LASIX) 20 mg tablet TAKE 1TABLETS ONE TIME DAILY (Patient not taking: Reported on 12/15/2018 ) Disp: 270 tablet Rfl: 1 Not Taking Mesalamine (PENTASA) 500 mg CR capsule Take 2 capsules by mo uth four times daily. Disp: 720 capsule Rfl: 3 Taking rosuvastatin (CRESTOR) 5 mg tablet Take 1 tablet by mouth tw ice a week. Disp: Rfl: Taking finasteride (PROSCAR) 5 mg tablet Take 1 tablet by mouth onc e daily. Disp: 90 tablet Rfl: 3 Taking tamsulosin ER (FLOMAX) 0.4 mg cap Take 1 capsule by mouth tw ice daily. Disp: 180 capsule Rfl: 3 Taking DULoxetine (CYMBALTA) 20 mg capsule Take 1 capsule by mouth once daily. Disp: 90 capsule Rfl: 3 Taking melatonin 10 mg subl Dissolve 1 tablet under the tongue at b edtime as needed. Disp: Rfl: Taking clopidogrel (PLAVIX) 75 mg tablet Take 1 tablet by mouth onc e daily. Disp: 90 tablet Rfl: 3 Taking colesevelam (WELCHOL) 625 mg tablet Take 3 tablets by mouth once daily. Primarily for postcholecystectomy syndrome so dose does not need increased Disp: 270 tablet Rfl: 3 Taking deozqa-wdinyhvl-ejzzkot (CREON) 24,000-76,000 -120,000 unit cpDR Take 3 capsules by mouth three times daily with meals. Disp: 500 ca psule Rfl: 3 Taking Wheel Chair diana Wheelchair with foot supports Dx: spinal st enosis, displacement of lumbar intervertebral disc Disp: 1 Device Rf l: 0 Taking cholecalciferol, Vitamin D3, (VITAMIN D3) 50,000 unit cap ca psule Take 1 capsule by mouth twice a week. Disp: 24 capsule Rfl: 2 Takin g OCTREOTIDE ACETATE (SANDOSTATIN INJECTION) by INJECTION(UNSP ECIFIED PARENTERAL ROUTES) route once every month. Disp: Rfl: Taking CYANOCOBALAMIN, VITAMIN B-12, (B-12 COMPLIANCE INJECTION) by INJECTION(UNSPECIFIED PARENTERAL ROUTES) route once every mo nth. Disp: Rfl: Taking blood sugar diagnostic (ONETOUCH VERIO) test strip Test bloo d sugar(s) 3 times daily and as needed for symptoms of high or low sugars . Dx: Type 2 DM - Uncontrolled E11.65 Insulin: Yes Disp: 100 Strip Rfl: 1 1 Taking Insulin Mackay, Disposable, (TIESHA PEN NEEDLE) 32 gauge x 5/ 32 ndle Use one needle for each dose. 2/day. Disp: 100 Each Rfl: 11 Taki ng COMPOUNDED PRESCRIPTION Lumbar support brace Dx: M48.06, M54 .31, M51.26 Disp: 1 Each Rfl: 0 Taking Lancing Device misc 1 Each twice daily. Dx: Type 2 DM - Unco ntrolled Insulin: Yes Disp: 100 Each Rfl: 11 Taking Current Hospital Medications: Current Facility-Administered Medications Medication Dose Route Frequency - heparin 5,000 Units injection 5,000 Units SUBCUTANEOUS q 1 2 H - NaCl 0.9% 3-5 mL 3-5 mL INTRAVENOUS q 12 H - ipratropium-albuterol 3 mL nebulizer solution (DUONEB) 3 m L INHALATION q 4 H PRN - ondansetron orally disintegrating 4 mg tab(s) (ZOFRAN ODT) 4 mg ORAL q 6 H PRN Or - ondansetron (PF) 4 mg injection (ZOFRAN) 4 mg INTRAVENOUS q 6 H PRN - dextrose 40 % 15 g 15 g ORAL PRN Or - glucagon 1 mg injection (GLUCAGEN) 1 mg INTRAMUSCULAR PRN Or - dextrose 50 % 12.5 g injection 12.5 g INTRAVENOUS PRN - insulin lispro injection (rapid acting) (HumaLOG) SUBCUTAN EOUS q 6 H - acetaminophen 650 mg tab(s) (TYLENOL) 650 mg ORAL q 6 H NH N - gabapentin 300 mg cap(s) (NEURONTIN) 300 mg ORAL AT BEDTIM E - [START ON 12/22/2018] rosuvastatin 5 mg tab(s) (CRESTOR) 5 mg ORAL 2/WK - metoprolol tartrate (short acting) 25 mg tab(s) (LOPRESSOR ) 25 mg ORAL BID - balsalazide 2,250 mg cap(s) (COLAZAL) 2,250 mg ORAL TID - melatonin 9 mg tab(s) 9 mg ORAL HS PRN - clopidogrel 75 mg tab(s) (PLAVIX) 75 mg ORAL DAILY - sertraline 100 mg tab(s) (ZOLOFT) 100 mg ORAL DAILY - DULoxetine 20 mg cap(s) (CYMBALTA) 20 mg ORAL DAILY - levothyroxine 137 mcg tab(s) (SYNTHROID) 137 mcg ORAL EDUIN Y - insulin regular human 5-10 Units injection (short acting) (NovoLIN R,HumuLIN R) 5-10 Units INTRAVENOUS ONCE - [START ON 12/18/2018] pantoprazole DR 20 mg tab(s) (PROTONI X) 20 mg ORAL DAILY (6 AM) - NaCl 0.9% iv infusion 150 mL/hr INTRAVENOUS CONTINUOUS - loperamide 2 mg cap(s) (IMODIUM) 2 mg ORAL q 8 H FAMILY HISTORY: Sisters x 2: cirrhosis SOCIAL HISTORY: Marital status: Alcohol use: Denies Tobacco use: Former quit 2006 REVIEW OF SYSTEMS: CONSTITUTIONAL: No fevers, chills, night sweats, unintended weight loss HEENT: Denies frequent or severe headaches EYES: No diplopia or blurry vision CARDIOVASCULAR: No chest pain PULM: No dyspnea GI: Per HPI : No new urinary complaints, including; dysuria, gross hem aturia or pyuria NEURO: (+) dizziness MUSC/SKEL: No new joint pain, swelling, or erythema PSYCH: No concerns regarding depression, anxiety or panic INTEGUMENTARY: No new skin changes (rash, new or changing mo le, new growth) PHYSICAL EXAM: Patient Vitals for the past 24 hrs: BP Temp Temp src Pulse Resp SpO2 Height Weight 12/17/18 1200 103/59 36.7 ?C (98.1 ?F) ? 64 23 96 % ? ? 12/17/18 1100 116/58 ? ? 68 18 98 % ? ? 12/17/18 1000 117/60 ? ? 65 11 97 % ? ? 12/17/18 0900 119/57 ? ? 65 17 95 % ? ? 12/17/18 0800 114/62 ? ? 63 18 92 % ? ? 12/17/18 0700 111/65 ? ? 62 17 92 % ? ? 12/17/18 0600 111/56 ? ? 61 12 95 % ? ? 12/17/18 0500 103/55 ? ? 62 19 (!) 86 % ? ? 12/17/18 0430 ? 36.5 ?C (97.7 ?F) Oral 62 14 95 % ? ? 12/17/18 0400 112/72 ? ? 62 20 95 % ? ? 12/17/18 0330 ? ? ? 63 17 89 % ? ? 12/17/18 0300 106/55 ? ? 62 15 96 % ? ? 12/17/18 0230 ? ? ? 62 15 96 % ? ? 12/17/18 0200 108/62 ? ? 64 14 97 % ? ? 12/17/18 0130 ? ? ? 60 12 97 % ? ? 12/17/18 0100 98/57 ? ? 66 22 91 % ? ? 12/17/18 0030 114/67 ? ? (!) 59 15 95 % ? ? 12/17/18 0000 122/73 ? ? 61 12 97 % ? ? 12/16/18 2335 118/63 ? ? 60 ? 12/16/18 2330 118/63 ? ? (!) 59 10 97 % ? ? 12/16/18 2319 ? 36.6 ?C (97.8 ?F) Temporal ? 12/16/18 2304 ? 175.3 cm (5' 9) 98 kg (216 lb 0.8 oz) 12/16/18 2300 126/66 ? ? (!) 59 10 97 % ? ? 12/16/18 2230 97/57 ? ? 62 19 99 % ? ? 12/16/18 2200 107/62 ? ? 62 19 99 % ? ? 12/16/18 2130 110/68 ? ? 62 18 95 % ? ? 12/16/18 2100 114/58 ? ? 63 12 95 % ? ? 12/16/18 2030 106/62 ? ? 63 (!) 10 95 % ? ? 12/16/18 1915 121/65 36.6 ?C (97.8 ?F) Oral 63 20 95 % ? 97. 5 kg (215 lb) Body mass index is 31.91 kg/m?. GENERAL: Alert AND oriented x 3. Cooperative. NAD EYES: No scleral icterus SKIN: Pale in color. No jaundice LUNGS: Clear to auscultation CARDIAC: RRR ABDOMEN: BS x 4. Abdomen obese but soft, non tender, non dis tended, no palpable masses or organomegaly. No guarding or rebound tend erness elicited. Ileostomy to right abdomen with red beefy stoma an d yellow liquid output in bag. EXTREMITIES: Trace edema BLE LABS: Diagnostic tests reviewed for today's visit: CBC, Coags, BMP, Mg, Phos Recent Labs 12/17/18 1117 12/17/18 0439 12/16/18 2334 12/16/181932 WBC -- 4.91 4.95 -- 6.24 HB -- 10.5* 10.4* -- 12.5* HCT -- 32.7* 32.1* -- 37.8* PLT -- 148* 143* -- 190 INR -- 1.1 1.1 -- 1.1 APTT -- -- -- -- 24.2 NA 140 143 140 < > 135* K 4.5 5.4* 6.1* < > 6.3* CHLOR 103 105 104 < > 98 CO2 24 26 26 < > 23 BUN 35* 36* 38* < > 38* CREAT 3.19* 3.52* 3.77* < > 4.13* GLUC 192* 128* 101* < > 171* CA 9.4 10.5* 10.6* < > 11.0* MG -- -- 1.7 -- 1.7 P -- -- 4.2 -- -- < > = values in this interval not displayed. Liver Function, Amylase, AND Lipase Recent Labs 12/16/18 19312/15/18 1142 TPROT 7.6 7.4 ALB 4.6 4.5 ALT 55* 44 AST 60* 54* ALKPHOS 168* 152* TBILI 0.5 0.5 LIPASE 43 -- Component Latest Ref Rng AND Units 03/26/2018 05/01/2018 019 11/23/2018 11/25/2018 11/26/2018 11/26/2018 11/27/2018 11/28/20182018 1:04 AM 9:38 PM Hemoglobin 13.0 - 17.0 g/dL 13.1 12.6 (L) 13.3 8.4 (L) 9.5 ( L) 7.9 (L) 8.6 (L) 9.0 (L) 9.1 (L) 8.4 (L) Hematocrit 39.0 - 51.0 % 39.4 38.2 (L) 41.0 25.0 (L) 27.8 (L ) 23.8 (L) 25.9 (L) 27.6 (L) 27.4 (L) 25.4 (L) MCV 80.0 - 100.0 fL 99.2 101.9 (H) 100.7 (H) 99.6 97.2 98.8 100.0 100.0 98.2 97.3 MCH 26.0 - 34.0 pG 33.0 33.6 32.7 33.5 33.2 32.8 33.2 32.6 3 2.6 32.2 MCHC 30.5 - 36.0 g/dL 33.2 33.0 32.4 33.6 34.2 33.2 33.2 32. 6 33.2 33.1 RDW-CV 11.5 - 15.0 % 14.6 15.4 (H) 14.8 14.6 15.3 (H) 15.6 ( H) 15.4 (H) 15.4 (H) 15.3 (H) 15.4 (H) Platelet Count 150 - 400 k/uL 126 (L) 123 (L) 142 (L) 131 (L ) 111 (L) 96 (L) 121 (L) 149 (L) 154 148 (L) Component Latest Ref Rng AND Units 09/19/2016 10/23/2016 017 03/12/2017 06/09/2017 10/02/2017 01/02/2018 04/21/2018 05/19/2018 08/11/201811/12/2018 Bilirubin, Total 0.2 - 1.3 mg/dL 0.8 0.3 0.5 0.6 0.5 0.4 0.4 0.4 0.5 0.4 0.5 0.5 Alkaline Phosphatase 38 - 113 U/L 103 93 94 88 85 101 109 11 6 (H) 138 (H) 99 86 80 AST 14 - 40 U/L 36 27 37 35 30 36 21 25 38 15 15 23 BUN 9 - 24 mg/dL 18 11 14 22 22 33 (H) 29 (H) 31 (H) 29 (H) 35 (H) 23 30 (H) Creatinine 0.73 - 1.22 mg/dL 1.60 (H) 1.36 (H) 1.67 (H) 1.82 (H) 1.79 (H) 2.05 (H) 1.81 (H) 2.41 (H) 2.42 (H) 2.61 (H) 2.21 (H) 2.58 ( H) ALT 10 - 54 U/L 32 23 30 24 25 24 26 24 30 17 13 18 [facility] 06/13/2017 Liver biopsy Liver, random right lobe, biopsy ?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 See comment. COMMENT The biopsy demonstrates distorted liver architecture with ci rrhosis as highlighted on the trichrome stain. The lobular parenchyma d emonstrates mild macrovesicular steatosis representing approximately 15- 20% of the liver surface. Rare ballooned hepatocytes with Beba hyali ne and scattered foci of lobular inflammation are noted. The portal tracts show minimal chronic inflammatory infiltrates composed mainly of small mature lymphocytes without interface activity. There is minimal jones e ductular proliferation. The interlobular bile ducts are intact. Granu samina are not seen. There is no evidence of cholestasis. PAS/D stain is ne gative for alpha-1 antitrypsin inclusions. The iron stain does not reve al increased iron deposition. The findings are consistent with end-stage liver disease (ci rrhosis) with associated features of steatohepatitis. This pattern of inju ry has been associated with obesity/metabolic syndrome, diabetes mellitu s, drug-induced injury (steroids), alcohol use, total parental nutrition, Wi lson's disease, among others. ? Component Latest Ref Rng AND Units 11/12/2018 Hep B Core Ab, Total Negative Negative Hep C Antibody IA Negative Negative Hep B Surface Ag Negative Negative Hep B Surface Ab, Qual Negative Negative Iron 41 - 186 ug/dL 78 TIBC 232 - 386 ug/dL 390 (H) Transferrin Saturation 15 - 57 % 20 IgA 78 - 391 mg/dL 234 Transglutaminase Ab, IgA <20 Units 8 Interpretation (Celiac Screen) No serologic evidence of neri ac disease. No serologic evidence of celiac disease. V.zoster IgG, Qual Negative Positive (A) Varicella zoster, IgG Index Value 950.5 EBV VCA IgG, Qual Negative Positive (A) EBV VCA, IgG AI >8.0 CRP <0.9 mg/dL 0.8 Ferritin 30.3 - 565.7 ng/mL 116.0 Vitamin B12 232 - 1,245 pg/mL 771 Hep A Ab, Total Negative Negative Hep B Surf Ab Quant <8.00 mIU/mL <8.00 11/23/18 Pathology Ileocolic anastomosis, resection: - Chronic active ileitis with ulceration. - Benign lymph nodes. Component Latest Ref Rng AND Units 12/16/2018 12/17/2018 NT Pro BNP <125 pg/mL 36 Lactate 0.5 - 2.2 mmol/L 2.2 (H) 3.0 (H) RADIOLOGY 09/10/18 CT A/P IMPRESSION: Small bowel stricture involving 4 cm segment of small bowel in the right abdomen at the small bowel anastomosis site, new since CT 03/28/2018. No metastatic disease in the abdomen or pelvis. 09/30/18 NM Tumor octreotide scan IMPRESSION: No areas of abnormal indium-111 uptake are seen suggest a le seth with high metastatic receptor concentration. 12/16/18 CXR IMPRESSION: No acute radiographic abnormality. MOST RECENT EGD 12/15/17 with Serafin Henley MD for hx eso phageal varices - Grade I esophageal varices. - Portal hypertensive gastropathy. - Normal examined duodenum. - No specimens collected. MOST RECENT COLONOSCOPY 10/16/18 with Serafin Henley MD ([facility]) for history of Crohn's disease, stricture seen on CT The colon (entire examined portion) appeared normal. Despite multiple maneuvers including pressure, changes in body position and c hanging the pediatric scope for an adult scope, I was unable to enter th e ileum Impression: ?- The entire examined colon is normal. ASSESSMENT 1- High ostomy output 2- LOR / electrolyte abnormalities 3- Hx Crohn's disease s/p resection of neoterminal ileum and ileocolonic anastomosis with diverting loop ileostomy 11/23/18 on Pentasa 4- GOMEZ cirrhosis complicated by esophageal varices, anemia, thrombocytopenia, portal hypertensive gastropathy 5- Hx carcinoid tumor s/p small bowel resection 6- Hx exocrine pancreatic insufficiency on Creon 7- CAD (Plavix) / CKD PLAN - Stool log. Obtain stool studies including fecal fat - Check urine for 5-HIAA - Start Questran 4 grams BID after stool studies obtained - Continue Imodium 2 mg TID as has been initiated - Continue balsalazide 2250 mg po TID (substitution for Pent asa) - Protonix 20 mg po daily - Continue Creon as home regimen - IVF - Carb control diet - Monitor daily labs - Iron studies, folate, vitamin B 12 - Follow renal recs - Further recommendations pending patient's clinical course and above evaluation Thank you for the opportunity to participate in the care of this patient. I will continue to follow with you. SIGNATURE: Cassandra Tobias MD DATE: 12/18/2018 TIME: 10:50 AM CONSULT HNO ID: [id number] Normal 12-17-2018 [facility] Author: Keagan Massey ([id number]) Service: General Surgery Author Type: Physician Type: Consults Filed: 12/17/2018 1:48 PM Note Text: Attestation signed by Elder Ruiz at 12/17/2018 4:10 PM Attending Note I have personally performed a face to face asses sment of the patient and have reviewed the RAFFI note. My harman findings include: Exam is as documented Other additions or changes: The surgical wound i s healing well. The ileostomy is well budded and the appliance is intact. There does not a ppear to be a surgically related issue regarding the patient's output. Agr ee with GI recommendations. Signature: Elder Ruiz MD Date: 12/17/2018 Time: 4:09 PM CONSULT: General Surgery SERVICE SERVICE DATE: 12/17/2018 SERVICE TIME: 1:12 PM REASON FOR CONSULT: High ileostomy consults REQUESTING PHYSICIAN: Ludy Massey MD PRIMARY CARE PHYSICIAN: ANALISA GARVEY MD Subjective Mr. Leal is a 68 year old male who presents for syncope and high ileostomy output with concern for dehydration 3 weeks post o p from a ileocolonic resection with divertiing ileostomy (redo for [facility]), initially with a carciniod tumor. His sister is at the [facility] and assists with history. He has noted the increase in effluence for abo ut 5 days, He has used Imodium with no relief. he denies fevers. Reports o ccasional nausea although none now. His ostomy bag is full of liquid d ark green stool. Abdomen is soft and nontender, stoma is pink and matu ring. K was elevated, up to 6.3 yesterday, now at 4.5. BUN 35, Creatinin e 3.19 - hx of chronic kidney disease. Impression/Recommendations Active Problems: Acute kidney injury (HCC) POA: Yes Assessment AND Plan: per primary Hyperkalemia POA: Unknown Assessment AND Plan: per primary High output ileostomy (HCC) POA: Unknown Assessment AND Plan: No surgical need identified, will consu lt GI for assessment and management of high outputs. Resolved Problems: * No resolved hospital problems. * PAST MEDICAL HISTORY Diagnosis Date - Bladder cancer (HCC) Superficial bladder cancer, status post TURP AND mitomycin-C - Cancer (HCC) intestines and chest, but in remission as of 12-22-14 - Carcinoid tumor s/p removal and octreotide therapy - Central sleep apnea - CKD (chronic kidney disease) stage 3, GFR 30-59 ml/min (HC C) bland UA, baseline Cr in high 1 range - Coronary atherosclerosis of unspecified type of vessel, na tive or graft PCI - 1999 - Depression 11/23/2018 - Diarrhea - Displacement of lumbar 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 thy - Esophageal reflux - Hypothyroidism - Internal hemorrhoids without mention of complication - Irritable bowel syndrome - Lipoma of other specified sites - GOMEZ (nonalcoholic steatohepatitis) cirrhosis on liver biopsy - ALEXIS (obstructive sleep apnea) DME [facility] - Oxygen order for 02 bleed in DME is [facility] - Other and unspecified hyperlipidemia - PAD (peripheral artery disease) (HCC) - Stroke (HCC) 2008 TIA-questionable diagnosis - Type 2 diabetes mellitus with complication (HCC) 6 - Unspecified essential hypertension - Vitamin B12 deficiency - Vitamin D deficiency PAST SURGICAL HISTORY Procedure Laterality Date - APPENDECTOMY 1970 - ARTHROS SHLDR DX W/WO SYNV BX Right 09/06/15 Right shoulder diagnostic arthroscopy - BALLN ANGIOPLASTY PERC,FEM-POP 1997 - BALLN ANGIOPLASTY PERC,FEM-POP 09/24/06 - CATHETER ART SYS-1ST ORD, ABDOM, PELVIC, OR LOWER 1997 - CATHETER ART SYS-1ST ORD, ABDOM, PELVIC, OR LOWER 1997 with stent - CATHETER ART SYS-1ST ORD, ABDOM, PELVIC, OR LOWER 09/24/06 - COLONOSCOP W/ OR W/O BRSH SPEC 05/30/2004 Colonoscopy - COLONOSCOP W/ OR W/O BRSH SPEC 05/18/14 Colonoscopy - EGD W/O BRSH SPECIMEN W/BX 10/24/06 Esophagiti,gastritis,duodenitis - EGD W/O OR W/BRUSH/WASH 10/26/1998 EGD - HEART SURGERY HX Stent 1995 - KNEE SCOPE,DIAGNOSTIC Right 2004 Arthroscopy, knee - LAP INC HERNIA REPAIR 09-29-12 - LAPAROSCOPIC CHOLEYCYSTECTOMY Cholecystectomy, lap - PAST SURGICAL HISTORY OF 2006 stent placement Both legs - PAST SURGICAL HISTORY OF 12-08-10 small bowel resection [facility] main - cancerious - PAST SURGICAL HISTORY OF 06/19/2015 Left eye cataract surgery - PERCATAN, EXTREMITY ARTERY 09/24/06 - REMOVAL OF TONSILS,<12 Y/O Tonsillectomy - REPAIR COMPL ROTATOR CUFF AVULSN,CHR Right 09/06/15 Subacromial decompression, rotator cuff repair, and labral d ebridement - REPAIR ING HERNIA,5+Y/O,REDUCIBL Hernia repair, inguinal lt FAMILY HISTORY Problem Relation Age of Onset - Diabetes Mother - other (Uterine cancer) Mother - Heart Father [place] - Hypertension Father - Heart Sister 60age - Stroke Sister - Diabetes Sister 65age - other (fibromyalgia) Sister x 4 - Diabetes Sister oral meds Social History Tobacco Use - Smoking status: Former Smoker Packs/day: 1.00 Years: 35.00 Pack years: 35.00 Types: Cigarettes Start date: 02/17/1971 Last attempt to quit: 02/17/2006 Years since quittin.8 - Smokeless tobacco: Never Used Substance Use Topics - Alcohol use: No Alcohol/week: 1.7 standard drinks - Drug use: No Medications Prior to Admission: COMPOUNDED PRESCRIPTION Please dispense a rollator with a se at. Disp: 1 Each Rfl: 0 Taking oxyCODONE ir (OXYIR) 5 mg capsule Take 1 capsule by mouth tw ice daily as needed for Pain (May take one additional capsule for breakth rough pain) for up to 30 days. Disp: 70 capsule Rfl: 0 Taking acetaminophen (TYLENOL) 325 mg tablet Take 2 tablets by mout h every 6 hours as needed for Pain. Disp: Rfl: Taking ondansetron (ZOFRAN) 8 mg tablet Take 1 tablet by mouth ever y 8 hours as needed. Disp: 20 tablet Rfl: 2 Taking insulin aspart protamine-insulin aspart (NovoLOG 70-30) 100 unit/mL flexpen INJECT 35 UNITS SUBCUTANEOUSLY BEFORE BREAKFAST AND 25 UNITS BEFORE EVENING MEAL Disp: 20 Pen Rfl: 1 Taking dicyclomine (BENTYL) 10 mg capsule TAKE 1 CAPSULE BY MOUTH B EFORE MEALS AND AT BEDTIME. Disp: 360 capsule Rfl: [address] (PROTONIX) 20 mg tablet Take 1 tablet by sheryl th daily before breakfast. Take on empty stomach, 1/2 hr before meal. Disp: 30 tablet Rfl: 2 Taking famotidine (PEPCID) 20 mg tablet TAKE 1 TABLET BY MOUTH TWIC E DAILY Disp: 60 tablet Rfl: 2 Taking gabapentin (NEURONTIN) 300 mg capsule Take 1 capsule by mout h daily at bedtime for 180 days. Disp: 90 capsule Rfl: 1 Taking sertraline (ZOLOFT) 100 mg tablet Take 1 tablet by mouth onc e daily. Disp: 30 tablet Rfl: 11 Taking amLODIPine (NORVASC) 5 mg tablet Take 1 tablet by mouth once daily. Disp: 90 tablet Rfl: 3 Taking spironolactone (ALDACTONE) 25 mg tablet Take 1 tablet by sheryl th twice daily. Disp: 180 tablet Rfl: 3 Taking nicotine polacrilex (NICORETTE) 2 mg gum Take 1 Each by mout h every 2 hours as needed. Disp: Rfl: Taking metoprolol tartrate, short acting, (LOPRESSOR) 50 mg tablet Take 0.5-1 tablets by mouth twice daily. As directed Disp: 180 tablet R fl: 3 Taking levothyroxine (LEVOXYL) 137 mcg tablet Take 1 tablet by mout h once daily. Take on empty stomach. For Thyroid. Disp: 90 tablet Rfl: 3 T aking flash glucose scanning reader (FREESTYLE JULIA 14 DAY READER ) misc Use as directed E 11.65 Disp: 1 Each Rfl: 0 Taking flash glucose sensor (FREESTYLE JULIA 14 DAY SENSOR) kit USE DIRECTED E11.65 Disp: 2 Kit Rfl: 11 Taking BIPAP Change settings: Bilevel PAP 30/25 cmH2O with humidifi cation and back up rate 10 with 2 L bled in HS. Disp: 1 Device Rfl: 11 Taking lidocaine (LIDODERM) 5 % Apply 1 Patch as directed every 12 hours. Remove old patch prior to placing new patch. Disp: 30 Patch Rfl: 2 Taking furosemide (LASIX) 20 mg tablet TAKE 1TABLETS ONE TIME DAILY (Patient not taking: Reported on 12/15/2018 ) Disp: 270 tablet Rfl: 1 Not Taking Mesalamine (PENTASA) 500 mg CR capsule Take 2 capsules by mo uth four times daily. Disp: 720 capsule Rfl: 3 Taking rosuvastatin (CRESTOR) 5 mg tablet Take 1 tablet by mouth tw ice a week. Disp: Rfl: Taking finasteride (PROSCAR) 5 mg tablet Take 1 tablet by mouth onc e daily. Disp: 90 tablet Rfl: 3 Taking tamsulosin ER (FLOMAX) 0.4 mg cap Take 1 capsule by mouth tw ice daily. Disp: 180 capsule Rfl: 3 Taking DULoxetine (CYMBALTA) 20 mg capsule Take 1 capsule by mouth once daily. Disp: 90 capsule Rfl: 3 Taking melatonin 10 mg subl Dissolve 1 tablet under the tongue at b edtime as needed. Disp: Rfl: Taking clopidogrel (PLAVIX) 75 mg tablet Take 1 tablet by mouth onc e daily. Disp: 90 tablet Rfl: 3 Taking colesevelam (WELCHOL) 625 mg tablet Take 3 tablets by mouth once daily. Primarily for postcholecystectomy syndrome so dose does not need increased Disp: 270 tablet Rfl: 3 Taking qfuctg-dmsnipat-yihxmiu (CREON) 24,000-76,000 -120,000 unit cpDR Take 3 capsules by mouth three times daily with meals. Disp: 500 ca psule Rfl: 3 Taking Wheel Chair diana Wheelchair with foot supports Dx: spinal st enosis, displacement of lumbar intervertebral disc Disp: 1 Device Rf l: 0 Taking cholecalciferol, Vitamin D3, (VITAMIN D3) 50,000 unit cap ca psule Take 1 capsule by mouth twice a week. Disp: 24 capsule Rfl: 2 Takin g OCTREOTIDE ACETATE (SANDOSTATIN INJECTION) by INJECTION(UNSP ECIFIED PARENTERAL ROUTES) route once every month. Disp: Rfl: Taking CYANOCOBALAMIN, VITAMIN B-12, (B-12 COMPLIANCE INJECTION) by INJECTION(UNSPECIFIED PARENTERAL ROUTES) route once every mo nth. Disp: Rfl: Taking blood sugar diagnostic (Embo MedicalUCH VERIO) test strip Test bloo d sugar(s) 3 times daily and as needed for symptoms of high or low sugars . Dx: Type 2 DM - Uncontrolled E11.65 Insulin: Yes Disp: 100 Strip Rfl: 1 1 Taking Insulin Mackay, Disposable, (TIESHA PEN NEEDLE) 32 gauge x 5/ 32 ndle Use one needle for each dose. 2/day. Disp: 100 Each Rfl: 11 Taki ng COMPOUNDED PRESCRIPTION Lumbar support brace Dx: M48.06, M54 .31, M51.26 Disp: 1 Each Rfl: 0 Taking Lancing Device misc 1 Each twice daily. Dx: Type 2 DM - Unco ntrolled Insulin: Yes Disp: 100 Each Rfl: 11 Taking Current Facility-Administered Medications Medication Dose Route Frequency - heparin 5,000 Units injection 5,000 Units SUBCUTANEOUS q 1 2 H - NaCl 0.9% 3-5 mL 3-5 mL INTRAVENOUS q 12 H - ipratropium-albuterol 3 mL nebulizer solution (DUONEB) 3 m L INHALATION q 4 H PRN - ondansetron orally disintegrating 4 mg tab(s) (ZOFRAN ODT) 4 mg ORAL q 6 H PRN Or - ondansetron (PF) 4 mg injection (ZOFRAN) 4 mg INTRAVENOUS q 6 H PRN - dextrose 40 % 15 g 15 g ORAL PRN Or - glucagon 1 mg injection (GLUCAGEN) 1 mg INTRAMUSCULAR PRN Or - dextrose 50 % 12.5 g injection 12.5 g INTRAVENOUS PRN - insulin lispro injection (rapid acting) (HumaLOG) SUBCUTAN EOUS q 6 H - acetaminophen 650 mg tab(s) (TYLENOL) 650 mg ORAL q 6 H NH N - gabapentin 300 mg cap(s) (NEURONTIN) 300 mg ORAL AT BEDTIM E - [START ON 12/22/2018] rosuvastatin 5 mg tab(s) (CRESTOR) 5 mg ORAL 2/WK - metoprolol tartrate (short acting) 25 mg tab(s) (LOPRESSOR ) 25 mg ORAL BID - balsalazide 2,250 mg cap(s) (COLAZAL) 2,250 mg ORAL TID - melatonin 9 mg tab(s) 9 mg ORAL HS PRN - clopidogrel 75 mg tab(s) (PLAVIX) 75 mg ORAL DAILY - sertraline 100 mg tab(s) (ZOLOFT) 100 mg ORAL DAILY - DULoxetine 20 mg cap(s) (CYMBALTA) 20 mg ORAL DAILY - levothyroxine 137 mcg tab(s) (SYNTHROID) 137 mcg ORAL EDUIN Y - insulin regular human 5-10 Units injection (short acting) (NovoLIN R,HumuLIN R) 5-10 Units INTRAVENOUS ONCE - [START ON 12/18/2018] pantoprazole DR 20 mg tab(s) (PROTONI X) 20 mg ORAL DAILY (6 AM) - NaCl 0.9% iv infusion 150 mL/hr INTRAVENOUS CONTINUOUS - loperamide 2 mg cap(s) (IMODIUM) 2 mg ORAL q 8 H Allergies As of Date: 12/16/2018 Allergen Noted Reaction LIPITOR [ATORVASTATIN CALCIUM] 01/31/2005 Intolerance ZOCOR [SIMVASTATIN] 01/31/2005 Intolerance NOVACAIN [OTHER] 01/31/2005 Intolerance LESCOL [FLUVASTATIN SODIUM] 09/09/2007 Intolerance Fully Assessed 12/16/2018 COMPLETE REVIEW OF SYSTEMS: PAIN ASSESSMENT: CURRENTLY HAVING PAIN; Chronic pain, none i n the abdomen today only discomfort GENERAL: No weight loss, malaise or fevers HEENT: Negative for frequent or significant headaches, No ch anges in hearing or vision, no nose bleeds or other nasal problems NECK: Negative for lumps, goiter, pain and significant neck swelling RESPIRATORY: Negative for cough, hemoptysis, wheezing, COPD, dyspnea or shortness of breath CARDIOVASCULAR: Angioplasty with stents GI: See HPI, SP cholcysectomy and appendectomy, Crohn's : Bladder cancer, TURP, CKD MUSCULOSKELETAL: back pain, Knee AND shoulder arthroscopies, SKIN: Negative for lesions, rash, and itching PSYCH: Positive for depression: HEMATOLOGY/LYMPHOLOGY: Negative for prolonged bleeding, brui sing easily or swollen nodes ENDOCRINE: Diabetic NEURO: CVA Objective PHYSICAL EXAM: GENERAL: Alert, no distress, cooperative SKIN: Skin color, texture, turgor normal. No rashes or lesio ns. HEAD/SINUSES: No significant findings NECK: No jugulovenous distention, No carotid bruits, Supple BACK: No CVAT. LUNGS: Lungs clear to auscultation, Good diaphragmatic excur seth CARDIAC: Normal S1 and S2; no rubs, murmurs, or gallops ABDOMEN: Soft, nontender, ileostomy EXTREMITIES: Extremities normal, no deformities, edema, club erick or skin discoloration. Good capillary refill., No ulcers NEURO: Grossly normal cognition, motor function, and cranial nerves III-XII PULSES: 2+ radial, 2+ carotid RECTAL: Exam deferred WOUND: Not applicable PRESSURE ULCERS: None Patient Vitals for the past 24 hrs: BP Temp Temp src Pulse Resp SpO2 Height Weight 12/17/18 1200 103/59 36.7 ?C (98.1 ?F) ? 64 23 96 % ? ? 12/17/18 1100 116/58 ? ? 68 18 98 % ? ? 12/17/18 1000 117/60 ? ? 65 11 97 % ? ? 12/17/18 0900 119/57 ? ? 65 17 95 % ? ? 12/17/18 0800 114/62 ? ? 63 18 92 % ? ? 12/17/18 0700 111/65 ? ? 62 17 92 % ? ? 12/17/18 0600 111/56 ? ? 61 12 95 % ? ? 12/17/18 0500 103/55 ? ? 62 19 (!) 86 % ? ? 12/17/18 0430 ? 36.5 ?C (97.7 ?F) Oral 62 14 95 % ? ? 12/17/18 0400 112/72 ? ? 62 20 95 % ? ? 12/17/18 0330 ? ? ? 63 17 89 % ? ? 12/17/18 0300 106/55 ? ? 62 15 96 % ? ? 12/17/18 0230 ? ? ? 62 15 96 % ? ? 12/17/18 0200 108/62 ? ? 64 14 97 % ? ? 12/17/18 0130 ? ? ? 60 12 97 % ? ? 12/17/18 0100 98/57 ? ? 66 22 91 % ? ? 12/17/18 0030 114/67 ? ? (!) 59 15 95 % ? ? 12/17/18 0000 122/73 ? ? 61 12 97 % ? ? 12/16/18 2335 118/63 ? ? 60 ? 12/16/18 2330 118/63 ? ? (!) 59 10 97 % ? ? 12/16/18 2319 ? 36.6 ?C (97.8 ?F) Temporal ? 12/16/18 2304 ? 175.3 cm (5' 9) 98 kg (216 lb 0.8 oz) 12/16/18 2300 126/66 ? ? (!) 59 10 97 % ? ? 12/16/18 2230 97/57 ? ? 62 19 99 % ? ? 12/16/18 2200 107/62 ? ? 62 19 99 % ? ? 12/16/18 2130 110/68 ? ? 62 18 95 % ? ? 12/16/18 2100 114/58 ? ? 63 12 95 % ? ? 12/16/18 2030 106/62 ? ? 63 (!) 10 95 % ? ? 12/16/18 1915 121/65 36.6 ?C (97.8 ?F) Oral 63 20 95 % ? 97. 5 kg (215 lb) Body mass index is 31.91 kg/m?. DATA: Diagnostic tests reviewed for today's visit: Most recent labs and imaging results. SIGNATURE: Florence Lieberman APRN.CNP PATIENT NAME: Venkata andrade DATE: December 17, 2018 TIME: 1:12 PM PAGER: [phone] Addendum and cosign by error SIGNATURE: Keagan Massey MD DATE: December 17, 2018 TIME: 1:47 PM CONSULT HNO ID: [id number] Normal 12-17-2018 [facility] Author: Kalia Lamas ([id number]) Service: Nephrology Author Type: Physician Type: Consults Filed: 12/17/2018 12:07 PM Note Text: CONSULT: NEPHROLOGY SERVICE PATIENT NAME: Venkata Leal DATE of SERVICE: 12/17/18 TIME of SERVICE: 11:48 AM REASON FOR CONSULT: LOR and hyperkalemia REQUESTING PHYSICIAN: Dr. Massey PRIMARY CARE PHYSICIAN: ANALISA GARVEY MD Mr. Leal is a 68 year old male who presents for a near sync opal episode. Apparently he felt faint when standing up but it is unclear to me whether he lost consciousness. Nonetheless, he was brought into hosp ital and found to have LOR with hyperkalemia (K 6.3) with an associated wid ened QRS. He was immediately treated medically and given IVF with some im provement in symptoms and potassium. Cr was 4.1 on admission above his us ual baseline of 1.8 thereby prompting renal consultation. He has a history of possible Crohn's disease on chronic sali cylate therapy. 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 Recently, it was noted he was developing a stricture in this region so he underwent planne d resection with diverting ileostomy formation earlier this month. He wa s discharged with a weight around 104kg. Since that time, has had increas ed ostomy output and weakness. His outpatient diuretics including furo semide and spironolactone were continued but apparently were being decr eased. He does have a history of biopsy proven cirrhosis possibly from fatt y liver disease. He denies any NSAID use. No recent IV contrast. He receives monthly octreotide for his carcinoid which apparently has no t recurred. In regards to renal history, he has been told he has stage 3 CKD. He has a bland UA. Baseline Cr in the high 1 range most recently and it appears this has been somewhat progressive. He has issues with LOR i n the past. He is not followed by nephrology. Risk factors for LOR include volume depletion from GI loss and use of diuretics presumably for c irrhosis and diastolic dysfunction. Currently he denies any CP or SOB. No N/V. Ostomy is having to be emptied every couple hrs. No fevers or chills. Feels better since ad mission. Has been receiving IVF including a bolus yesterday night and aga in this AM. I stopped his amlodipine this AM. Diuretics on hold since admi ssion. Most recent K down to 4.5 and Cr improving in the low 3 range. No hematuria. Other ROS as noted above and otherwise negative. PAST MEDICAL HISTORY: PAST MEDICAL HISTORY Diagnosis Date - Bladder cancer (HCC) Superficial bladder cancer, status post TURP AND mitomycin-C - Cancer (HCC) intestines and chest, but in remission as of 12-22-14 - Carcinoid tumor s/p removal and octreotide therapy - Central sleep apnea - CKD (chronic kidney disease) stage 3, GFR 30-59 ml/min (HC C) bland UA, baseline Cr in high 1 range - Coronary atherosclerosis of unspecified type of vessel, na tive or graft PCI - 1998 - Depression 11/23/2018 - Diarrhea - Displacement of lumbar 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 thy - Esophageal reflux - Hypothyroidism - Internal hemorrhoids without mention of complication - Irritable bowel syndrome - Lipoma of other specified sites - GOMEZ (nonalcoholic steatohepatitis) cirrhosis on liver biopsy - ALEXIS (obstructive sleep apnea) DME [employer] [facility] - Oxygen order for 02 bleed in DME is [facility] - Other and unspecified hyperlipidemia - PAD (peripheral artery disease) (HCC) - Stroke (HCC) 2008 TIA-questionable diagnosis - Type 2 diabetes mellitus with complication (HCC) 6 - Unspecified essential hypertension - Vitamin B12 deficiency - Vitamin D deficiency PAST SURGICAL HISTORY: PAST SURGICAL HISTORY Procedure Laterality Date - APPENDECTOMY 1970 - ARTHROS SHLDR DX W/WO SYNV BX Right 09/06/15 Right shoulder diagnostic arthroscopy - BALLN ANGIOPLASTY PERC,FEM-POP 1997 - BALLN ANGIOPLASTY PERC,FEM-POP 09/24/06 - CATHETER ART SYS-1ST ORD, ABDOM, PELVIC, OR LOWER 1997 - CATHETER ART SYS-1ST ORD, ABDOM, PELVIC, OR LOWER 1997 with stent - CATHETER ART SYS-1ST ORD, ABDOM, PELVIC, OR LOWER 09/24/06 - COLONOSCOP W/ OR W/O BRSH SPEC 05/30/2004 Colonoscopy - COLONOSCOP W/ OR W/O BRSH SPEC 05/18/14 Colonoscopy - EGD W/O BRSH SPECIMEN W/BX 10/24/06 Esophagiti,gastritis,duodenitis - EGD W/O OR W/BRUSH/WASH 10/26/1998 EGD - HEART SURGERY HX Stent 1995 - KNEE SCOPE,DIAGNOSTIC Right 2004 Arthroscopy, knee - LAP INC HERNIA REPAIR 09-29-12 - LAPAROSCOPIC CHOLEYCYSTECTOMY 08 Cholecystectomy, lap - PAST SURGICAL HISTORY OF 2006 stent placement Both legs - PAST SURGICAL HISTORY OF 10-22-11 small bowel resection [facility] main - cancerious - PAST SURGICAL HISTORY OF 06/19/2015 Left eye cataract surgery - PERCATAN, EXTREMITY ARTERY 09/24/06 - REMOVAL OF TONSILS,<12 Y/O Tonsillectomy - REPAIR COMPL ROTATOR CUFF AVULSN,CHR Right 09/06/15 Subacromial decompression, rotator cuff repair, and labral d ebridement - REPAIR ING HERNIA,5+Y/O,REDUCIBL Hernia repair, inguinal lt FAMILY HISTORY: FAMILY HISTORY Problem Relation Age of Onset - Diabetes Mother - other (Uterine cancer) Mother - Heart Father [place] - Hypertension Father - Heart Sister 60age - Stroke Sister - Diabetes Sister 65age - other (fibromyalgia) Sister x 4 - Diabetes Sister oral meds SOCIAL HISTORY: Social History Tobacco Use - Smoking status: Former Smoker Packs/day: 1.00 Years: 35.00 Pack years: 35.00 Types: Cigarettes Start date: 02/17/1971 Last attempt to quit: 02/17/2006 Years since quittin.8 - Smokeless tobacco: Never Used Substance Use Topics - Alcohol use: No Alcohol/week: 1.7 standard drinks - Drug use: No MEDICATIONS: Prior to Admission Medications: Medications Prior to Admission: COMPOUNDED PRESCRIPTION Please dispense a rollator with a se at. Disp: 1 Each Rfl: 0 Taking oxyCODONE ir (OXYIR) 5 mg capsule Take 1 capsule by mouth tw ice daily as needed for Pain (May take one additional capsule for breakth rough pain) for up to 30 days. Disp: 70 capsule Rfl: 0 Taking acetaminophen (TYLENOL) 325 mg tablet Take 2 tablets by mout h every 6 hours as needed for Pain. Disp: Rfl: Taking ondansetron (ZOFRAN) 8 mg tablet Take 1 tablet by mouth ever y 8 hours as needed. Disp: 20 tablet Rfl: 2 Taking insulin aspart protamine-insulin aspart (NovoLOG 70-30) 100 unit/mL flexpen INJECT 35 UNITS SUBCUTANEOUSLY BEFORE BREAKFAST AND 25 UNITS BEFORE EVENING MEAL Disp: 20 Pen Rfl: 1 Taking dicyclomine (BENTYL) 10 mg capsule TAKE 1 CAPSULE BY MOUTH B EFORE MEALS AND AT BEDTIME. Disp: 360 capsule Rfl: [address] (PROTONIX) 20 mg tablet Take 1 tablet by sheryl th daily before breakfast. Take on empty stomach, 1/2 hr before meal. Disp: 30 tablet Rfl: 2 Taking famotidine (PEPCID) 20 mg tablet TAKE 1 TABLET BY MOUTH TWIC E DAILY Disp: 60 tablet Rfl: 2 Taking gabapentin (NEURONTIN) 300 mg capsule Take 1 capsule by mout h daily at bedtime for 180 days. Disp: 90 capsule Rfl: 1 Taking sertraline (ZOLOFT) 100 mg tablet Take 1 tablet by mouth onc e daily. Disp: 30 tablet Rfl: 11 Taking amLODIPine (NORVASC) 5 mg tablet Take 1 tablet by mouth once daily. Disp: 90 tablet Rfl: 3 Taking spironolactone (ALDACTONE) 25 mg tablet Take 1 tablet by sheryl th twice daily. Disp: 180 tablet Rfl: 3 Taking nicotine polacrilex (NICORETTE) 2 mg gum Take 1 Each by mout h every 2 hours as needed. Disp: Rfl: Taking metoprolol tartrate, short acting, (LOPRESSOR) 50 mg tablet Take 0.5-1 tablets by mouth twice daily. As directed Disp: 180 tablet R fl: 3 Taking levothyroxine (LEVOXYL) 137 mcg tablet Take 1 tablet by mout h once daily. Take on empty stomach. For Thyroid. Disp: 90 tablet Rfl: 3 T aking flash glucose scanning reader (FREESTYLE JULIA 14 DAY READER ) misc Use as directed E 11.65 Disp: 1 Each Rfl: 0 Taking flash glucose sensor (FREESTYLE JULIA 14 DAY SENSOR) kit USE DIRECTED E11.65 Disp: 2 Kit Rfl: 11 Taking BIPAP Change settings: Bilevel PAP 30/25 cmH2O with humidifi cation and back up rate 10 with 2 L bled in HS. Disp: 1 Device Rfl: 11 Taking lidocaine (LIDODERM) 5 % Apply 1 Patch as directed every 12 hours. Remove old patch prior to placing new patch. Disp: 30 Patch Rfl: 2 Taking furosemide (LASIX) 20 mg tablet TAKE 1TABLETS ONE TIME DAILY (Patient not taking: Reported on 12/15/2018 ) Disp: 270 tablet Rfl: 1 Not Taking Mesalamine (PENTASA) 500 mg CR capsule Take 2 capsules by mo uth four times daily. Disp: 720 capsule Rfl: 3 Taking rosuvastatin (CRESTOR) 5 mg tablet Take 1 tablet by mouth tw ice a week. Disp: Rfl: Taking finasteride (PROSCAR) 5 mg tablet Take 1 tablet by mouth onc e daily. Disp: 90 tablet Rfl: 3 Taking tamsulosin ER (FLOMAX) 0.4 mg cap Take 1 capsule by mouth tw ice daily. Disp: 180 capsule Rfl: 3 Taking DULoxetine (CYMBALTA) 20 mg capsule Take 1 capsule by mouth once daily. Disp: 90 capsule Rfl: 3 Taking melatonin 10 mg subl Dissolve 1 tablet under the tongue at b edtime as needed. Disp: Rfl: Taking clopidogrel (PLAVIX) 75 mg tablet Take 1 tablet by mouth onc e daily. Disp: 90 tablet Rfl: 3 Taking colesevelam (WELCHOL) 625 mg tablet Take 3 tablets by mouth once daily. Primarily for postcholecystectomy syndrome so dose does not need increased Disp: 270 tablet Rfl: 3 Taking mfwpno-nduywukr-inrkdyn (CREON) 24,000-76,000 -120,000 unit cpDR Take 3 capsules by mouth three times daily with meals. Disp: 500 ca psule Rfl: 3 Taking Wheel Chair diana Wheelchair with foot supports Dx: spinal st enosis, displacement of lumbar intervertebral disc Disp: 1 Device Rf l: 0 Taking cholecalciferol, Vitamin D3, (VITAMIN D3) 50,000 unit cap ca psule Take 1 capsule by mouth twice a week. Disp: 24 capsule Rfl: 2 Takin g OCTREOTIDE ACETATE (SANDOSTATIN INJECTION) by INJECTION(UNSP ECIFIED PARENTERAL ROUTES) route once every month. Disp: Rfl: Taking CYANOCOBALAMIN, VITAMIN B-12, (B-12 COMPLIANCE INJECTION) by INJECTION(UNSPECIFIED PARENTERAL ROUTES) route once every mo nth. Disp: Rfl: Taking blood sugar diagnostic (ONETOUCH VERIO) test strip Test bloo d sugar(s) 3 times daily and as needed for symptoms of high or low sugars . Dx: Type 2 DM - Uncontrolled E11.65 Insulin: Yes Disp: 100 Strip Rfl: 1 1 Taking Insulin Mackay, Disposable, (TIESHA PEN NEEDLE) 32 gauge x 5/ 32 ndle Use one needle for each dose. 2/day. Disp: 100 Each Rfl: 11 Josei vee COMPOUNDED PRESCRIPTION Lumbar support brace Dx: M48.06, M54 .31, M51.26 Disp: 1 Each Rfl: 0 Taking Lancing Device misc 1 Each twice daily. Dx: Type 2 DM - Unco ntrolled E11.65 Insulin: Yes Disp: 100 Each Rfl: 11 Taking Current Facility-Administered Medications Medication Dose Route Frequency - heparin 5,000 Units injection 5,000 Units SUBCUTANEOUS q 1 2 H - NaCl 0.9% 3-5 mL 3-5 mL INTRAVENOUS q 12 H - ipratropium-albuterol 3 mL nebulizer solution (DUONEB) 3 m L INHALATION q 4 H PRN - ondansetron orally disintegrating 4 mg tab(s) (ZOFRAN ODT) 4 mg ORAL q 6 H PRN Or - ondansetron (PF) 4 mg injection (ZOFRAN) 4 mg INTRAVENOUS q 6 H PRN - dextrose 40 % 15 g 15 g ORAL PRN Or - glucagon 1 mg injection (GLUCAGEN) 1 mg INTRAMUSCULAR PRN Or - dextrose 50 % 12.5 g injection 12.5 g INTRAVENOUS PRN - insulin lispro injection (rapid acting) (HumaLOG) SUBCUTAN EOUS q 6 H - acetaminophen 650 mg tab(s) (TYLENOL) 650 mg ORAL q 6 H NH N - gabapentin 300 mg cap(s) (NEURONTIN) 300 mg ORAL AT BEDTIM E - [START ON 12/22/2018] rosuvastatin 5 mg tab(s) (CRESTOR) 5 mg ORAL 2/WK - metoprolol tartrate (short acting) 25 mg tab(s) (LOPRESSOR ) 25 mg ORAL BID - balsalazide 2,250 mg cap(s) (COLAZAL) 2,250 mg ORAL TID - melatonin 9 mg tab(s) 9 mg ORAL HS PRN - clopidogrel 75 mg tab(s) (PLAVIX) 75 mg ORAL DAILY - sertraline 100 mg tab(s) (ZOLOFT) 100 mg ORAL DAILY - DULoxetine 20 mg cap(s) (CYMBALTA) 20 mg ORAL DAILY - levothyroxine 137 mcg tab(s) (SYNTHROID) 137 mcg ORAL EDUIN Y - insulin regular human 5-10 Units injection (short acting) (NovoLIN R,HumuLIN R) 5-10 Units INTRAVENOUS ONCE - [START ON 12/18/2018] pantoprazole DR 20 mg tab(s) (PROTONI X) 20 mg ORAL DAILY (6 AM) - NaCl 0.9% iv infusion 125 mL/hr INTRAVENOUS CONTINUOUS ALLERGIES: ALLERGIES Allergen Reactions - Lipitor [Atorvastat* Intolerance myalgias - Zocor [Simvastatin] Intolerance myalgias - Novacain [Other] Intolerance Headache when it wears off - Lescol [Fluvastatin* Intolerance myalgia COMPLETE REVIEW OF SYSTEMS: Please see HPI PHYSICAL EXAM: Patient Vitals for the past 24 hrs: BP Temp Temp src Pulse Resp SpO2 Height Weight 12/17/18 1100 116/58 ? ? 68 18 98 % ? ? 12/17/18 1000 117/60 ? ? 65 11 97 % ? ? 12/17/18 0900 119/57 ? ? 65 17 95 % ? ? 12/17/18 0800 114/62 ? ? 63 18 92 % ? ? 12/17/18 0700 111/65 ? ? 62 17 92 % ? ? 12/17/18 0600 111/56 ? ? 61 12 95 % ? ? 12/17/18 0500 103/55 ? ? 62 19 (!) 86 % ? ? 12/17/18 0430 ? 36.5 ?C (97.7 ?F) Oral 62 14 95 % ? ? 12/17/18 0400 112/72 ? ? 62 20 95 % ? ? 12/17/18 0330 ? ? ? 63 17 89 % ? ? 12/17/18 0300 106/55 ? ? 62 15 96 % ? ? 12/17/18 0230 ? ? ? 62 15 96 % ? ? 12/17/18 0200 108/62 ? ? 64 14 97 % ? ? 12/17/18 0130 ? ? ? 60 12 97 % ? ? 12/17/18 0100 98/57 ? ? 66 22 91 % ? ? 12/17/18 0030 114/67 ? ? (!) 59 15 95 % ? ? 12/17/18 0000 122/73 ? ? 61 12 97 % ? ? 12/16/18 2335 118/63 ? ? 60 ? 12/16/18 2330 118/63 ? ? (!) 59 10 97 % ? ? 12/16/189 ? 36.6 ?C (97.8 ?F) Temporal ? 12/16/182303 ? 175.3 cm (5' 9) 98 kg (216 lb 0.8 oz) 12/16/18 2300 126/66 ? ? (!) 59 10 97 % ? ? 12/16/182229 97/57 ? ? 62 19 99 % ? ? 12/16/18 2200 107/62 ? ? 62 19 99 % ? ? 12/16/18 2130 110/68 ? ? 62 18 95 % ? ? 12/16/18 2100 114/58 ? ? 63 12 95 % ? ? 12/16/182029 106/62 ? ? 63 (!) 10 95 % ? ? 12/16/181914 121/65 36.6 ?C (97.8 ?F) Oral 63 20 95 % ? 97. 5 kg (215 lb) Body mass index is 31.91 kg/m?. GENERAL: Alert SKIN: Negative HEAD/SINUSES: No significant findings EYES: EOMI EARS: Negative NOSE: Negative OROPHARYNX: dry MM NECK: no JVD LUNGS: clear CARDIAC: no rub ABDOMEN: soft, RLQ ostomy with yellow liquid stool intact EXTREMITIES: no edema NEURO: nothing focal DATA: Laboratory: Recent Labs 12/17/18 1117 12/17/18 0439 12/16/18 2334 12/16/18 1933 12/15/18 1142 CREAT 3.19* 3.52* 3.77* < > 4.13* 3.10* BUN 35* 36* 38* < > 38* 32* NA 140 143 140 < > 135* 132* K 4.5 5.4* 6.1* < > 6.3* 5.3* CHLOR 103 105 104 < > 98 95* MG -- -- 1.7 -- 1.7 -- WBC -- 4.91 4.95 -- 6.24 -- ALB -- -- -- -- 4.6 4.5 ALKPHOS -- -- -- -- 168* 152* AST -- -- -- -- 60* 54* ALT -- -- -- -- 55* 44 < > = values in this interval not displayed. ASSESSMENT AND PLAN: 1. LOR with hyperkalemia due to volume depletion (weight los s of 6kg in last 2-3 weeks) from high output ostomy as well as use of du al diuretic therapy (loop + spironolactone). Improving with IVF 2. Relative hypotension due to volume depletion and amlodipi ne therapy 3. Resolved hyperkalemia as noted above 4. 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 Change IVF to NS at 150cc/hr for another day 2. Check daily orthostatics -if still positive despite IVF, might consider checking juliette isol level 3. Stop amlodipine and diuretics 4. Check urine Na 5. Once renal function back to baseline, will expand CKD wor kup 6. Kayexalate of limited value in a patient without a functi onal colon On discharge, will need renal follow up SIGNATURE: Kalia Lamas MD DATE: December 17, 2018 TIME: 11:48 AM December 17, 2018 12/17/2018 cbc on 2018-12-17 Erythrocyte distribution 15.0 11.5-15.0 % Normal 12-17 [facility] ([id number]) width (RBC) [Ratio] Comment: Performed By: #### CBCDIF, P T, PTT, CK, CMP, LIPA, MG1 #### [facility] [address] [place], [place] [phone] Hematocrit (Bld) [Volume 32.7 39.0-51.0 % Low 12-17 [facility] (36506) fraction] Comment: Performed By: #### CBCDIF, P T, PTT, CK, CMP, LIPA, MG1 #### [facility] [address] [place] [address] Hemoglobin (Bld) 10.5 13.0-17.0 g/dL Low 12-17-2018 [facility] (31810) [Mass/Vol] Comment: Performed By: #### CBCDIF, P T, PTT, CK, CMP, LIPA, MG1 #### [facility] [address] [place] [address] MCH (RBC) [Entitic mass] 31.3 26.0-34.0 pG Normal 12-17 [facility] (36654) Comment: Performed By: #### CBCDIF, P T, PTT, CK, CMP, LIPA, MG1 #### [facility] [address] [place] [phone] MCHC (RBC) [Mass/Vol] 32.1 30.5-36.0 g/dL Normal 12-18-19 19 [facility] (20869) Comment: Performed By: #### CBCDIF, P T, PTT, CK, CMP, LIPA, MG1 #### [facility] [address] [place], [place] [address] MCV (RBC) [Entitic vol] 97.3 80.0-100.0 fL Normal 12-17 [facility] (75591) Comment: Performed By: #### CBCDIF, P T, PTT, CK, CMP, LIPA, MG1 #### [facility] [address] [address] Platelet mean volume (Bld) 11.5 9.0-12.7 fL Normal [facility] (24251) [Entitic vol] Comment: Performed By: #### CBCDIF, P T, PTT, CK, CMP, LIPA, MG1 #### [facility] [address] [place] [address] Platelets (Bld) [#/Vol] 148 150-400 k/uL Low 2018 [facility] (71137) Comment: Performed By: #### CBCDIF, P T, PTT, CK, CMP, LIPA, MG1 #### [facility] [address] [place] [address] RBC (Bld) [#/Vol] 3.36 4.20-6.00 m/uL Low 12-17-2018 [facility] (99286) Comment: Performed By: #### CBCDIF, P T, PTT, CK, CMP, LIPA, MG1 #### [facility] [address] [place], [place] [phone] WBC (Bld) [#/Vol] 4.91 3.70-11.00 k/uL Normal 12-17-2018 [facility] (11863) Comment: Performed By: #### CBCDIF, P T, PTT, CK, CMP, LIPA, MG1 #### [facility] [address] [place], [place] [phone] Erythrocyte distribution 14.9 11.5-15.0 % Normal 12-17 [facility] (95571) width (RBC) [Ratio] Comment: Performed By: #### CBCDIF, P T, PTT, CK, CMP, LIPA, MG1 #### [facility] [address] [place] [address] Hematocrit (Bld) [Volume 32.1 39.0-51.0 % Low 12-17 [facility] (65147) fraction] Comment: Performed By: #### CBCDIF, P T, PTT, CK, CMP, LIPA, MG1 #### [facility] [address] [place] [address] Hemoglobin (Bld) 10.4 13.0-17.0 g/dL Low 12-17-2018 [facility] (20063) [Mass/Vol] Comment: Performed By: #### CBCDIF, P T, PTT, CK, CMP, LIPA, MG1 #### [facility] [address] [place] [address] MCH (RBC) [Entitic mass] 31.4 26.0-34.0 pG Normal 12-17 [facility] (76918) Comment: Performed By: #### CBCDIF, P T, PTT, CK, CMP, LIPA, MG1 #### [facility] [address] [place] [address] MCHC (RBC) [Mass/Vol] 32.4 30.5-36.0 g/dL Normal 12-18-[address] [place] [address] ([id number]) Comment: Performed By: #### CBCDIF, P T, PTT, CK, CMP, LIPA, MG1 #### [facility] [address] [place] [address] MCV (RBC) [Entitic vol] 97.0 80.0-100.0 fL Normal 12-17 [facility] (89651) Comment: Performed By: #### CBCDIF, P T, PTT, CK, CMP, LIPA, MG1 #### [facility] [address] [place] [address] Platelet mean volume (Bld) 11.8 9.0-12.7 fL Normal [facility] (23111) [Entitic vol] Comment: Performed By: #### CBCDIF, P T, PTT, CK, CMP, LIPA, MG1 #### [facility] [address] [place] [address] Platelets (Bld) [#/Vol] 143 150-400 k/uL Low 2018 [facility] (22039) Comment: Performed By: #### CBCDIF, P T, PTT, CK, CMP, LIPA, MG1 #### [facility] [address] [facility] [phone] RBC (Bld) [#/Vol] 3.31 4.20-6.00 m/uL Low 12-17-2018 [facility] (79969) Comment: Performed By: #### CBCDIF, P T, PTT, CK, CMP, LIPA, MG1 #### [facility] [address] [facility] [phone] WBC (Bld) [#/Vol] 4.95 3.70-11.00 k/uL Normal 12-17-2018 [facility] (08660) Comment: Performed By: #### CBCDIF, P T, PTT, CK, CMP, LIPA, MG1 #### [facility] [address] [facility] [phone] case mgt init asses on 2018-12-17 CASE MGT INIT HNO ID: [id number] Normal 019 [facility] Author: Berenice (Rn) HITESH Quezada ([id number]) Service: ? 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 Last Discharge Date: 11/30/18 Is this Within the Past 30 days? Yes Is This a Planned Readmission? No: New symptoms of underlyin g disease Followed Up with Appointment Prior to Admission: Patient darline eduled, but readmitted prior Where Did the Patient Come From? Home Intervention Taken to Avoid Future Readmission? [facility] Advance Directive: Current Advance Directive: Health Care Power of Ball Winder In Chart: Yes Up To Date and Valid: Yes Health Literacy: 1. How often do you need to have someone help you when you r ead instructions, pamphlets, or other written material from your doctor or pharmacy? Never - 1 2. How confident are you filling out medical forms by yourse lf? Extremely - 1 If Patient scores > 3 on either question, the following inte rventions were put into place: Patient did not score > 3 FUNCTIONAL AND COGNITIVE/BEHAVIORAL PRIOR TO ADMISSION: Baseline Mental Status: Alert AND Oriented, Person, Place , Time and Situation Functional Status: Independent Does Patient Currently Receive Any Community Services or [facility] Care? Home Health Care Agency: [facility]; Phone: ; Active. Equipment Prior to Admission: Walker Wheelchair Has the Patient Been in a Penitentiary Facility in the [facility] 30 days? No SOCIAL: Living Arrangement: Home Lives With: Spouse Financial Resources: Retired Primary Contact: Extended Emergency Contact Information Primary Emergency Contact: Citlaly Leal Address: [address] [place] [address] Mobile Relation: Spouse Secondary Emergency Contact: caprice fragoso Mobile Relation: Daughter Home Health Clinical Supervisor needed? No Supportive: Yes Other Important Patient Contacts: None Caregiver Assessment: Caregiver is ready, willing and able to meet the patient's n eeds as recommended by the inter-professional team? TBD Patient's transition needs and plan for meeting these needs: TBD Does the patient have an acute stroke diagnosis, or has the patient had a stroke during this admission? No Medication Adherence: I am convinced of the importance of my prescription medicati on: Agree mostly - 0 I worry that my prescription medication will do more harm th an good to me Disagree mostly - 0 I feel financially burdened by my bkk-va-[id number] expenses for my prescription medication: Disagree mostly -0 Patient is categorized as low risk < 2 Are you interested in bedside delivery of your medications? No ,uses [facility] and [facility] in [place] Food Concerns: In the Last Month, Have You had Trouble Getting Food? No tro uble getting food During the Last Month, Have You Worried Whether Your Food Wo uld Run Out Before You Had Enough Money to Buy More? No Is the Patient Psychosocially Complex? No ASSESSMENT AND PLAN: Medical Needs: 2 or more chronic diseases, Cancer - active treatment/follow up and Wound Care - active or potential Psychosocial Needs: None FREEDOM OF CHOICE EXPLAINED: Yes wants to continue with [facility] POTENTIAL TRANSITION PLANS Home Care To Be Determined CM in to speak with patient at bedside, introduced self and role. Pt is a 68y/o s/p abdominal surgery with diagnosis of Crohns disease (3 weeks ago) with high ostomy output who presents to ED after a syncopal event wtih OLR and hyperkalemia. Patient admitted to ICU. 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 CM instructed pt that a CM will remain available for any d/c needs. Pt had no further questions/concerns voiced at this time. SIGNATURE: Berenice Quezada RN PATIENT NAME: Venkata Leal DATE: December 17, 2018 TIME: 11:37 AM PAGER/CONTACT #: [phone] c difficile pcr on 2018-12-17 C difficile PCR Negative for C. Normal 12-18-[address] [place] [address] ([id number]) difficile toxin by PCR Comment: Performed By: #### CBCDIF, P T, PTT, CK, CMP, LIPA, MG1 #### [facility] [address] [facility] [phone] basic metabolic panl on 2018-12-17 Anion gap [Moles/Vol] 11 9-18 mmol/L Normal 12-18-[address] [place] [address] ([id number]) Comment: Performed By: #### CBCDIF, P T, PTT, CK, CMP, LIPA, MG1 #### [facility] [address] [facility] [phone] Calcium [Mass/Vol] 9.1 8.5-10.2 mg/dL Normal 12-17-2018 [facility] (47292) Comment: Performed By: #### CBCDIF, P T, PTT, CK, CMP, LIPA, MG1 #### [facility] [address] [facility] [phone] Chloride [Moles/Vol] 103 97-105 mmol/L Normal 9 [facility] (49269) Comment: Performed By: #### CBCDIF, P T, PTT, CK, CMP, LIPA, MG1 #### [facility] [address] [facility] [phone] CO2 [Moles/Vol] 24 22-30 mmol/L Normal 12-17-2018 [facility] (64075) Comment: Performed By: #### CBCDIF, P T, PTT, CK, CMP, LIPA, MG1 #### [facility] [address] [phone] Creatinine [Mass/Vol] 2.85 0.73-1.22 mg/dL High 12-18-19 19 [facility] ([id number]) Comment: Performed By: #### CBCDIF, P T, PTT, CK, CMP, LIPA, MG1 #### [facility] [address] [facility] [phone] eGFR- Amer. 27 Normal 12-17-2018 [facility] ([id number]) Comment: Performed By: #### CBCDIF, P T, PTT, CK, CMP, LIPA, MG1 #### [facility] [address] [facility] [phone] GFR/1.73 sq M predicted among 22 . Normal 12-17-2018 [facility] (66920) non-blacks MDRD (S/P/Bld) [Vol rate/Area] Comment: Result Comment: eGFR (Estima pratik GFR) Units of measure: mL/min/1.73 meters squared eGFR is derived from the ree xpressed MDRD Study equation using the following parameters: serum creatinine, age, gender and race. The creatinine assay has been calibrated to be traceable to IDMS. An eGFR <60 mL/min/1.73m2 fo r >3 months is consistent with chronic kidney disease. Refer to KDOQI guidelines for clinical interpretation. In patients with unstable re nal function, e.g. those with acute kidney injury, the eGFR may not accurately reflect actual GFR. Performed By: #### CBCDIF, P T, PTT, CK, CMP, LIPA, MG1 #### [facility] [address] [facility] [phone] Glucose [Mass/Vol] 160 74-99 mg/dL High 12-17-2018 [facility] (39917) Comment: Result Comment: The [place] [employer] (ADA) provides guidance for cutoff values for fasting glucose and random glucose. The ADA defines fasting as no caloric intake for at least 8 hours. Fas ting plasma glucose results between 100 to 125 mg/dL indicate increased risk for diabetes (prediabetes). Fasting plasma glucose resul ts greater than or equal to 126 mg/dL meet the criteria for diagnosis of diabetes. In the absence of unequivocal hyperglycemia, results should be confirmed by repeat testing. In a patient with classic s ymptoms of hyperglycemia or hyperglycemic crisis, random plasma glucose results greater than or equal to 200 mg/dL meet the criteria for diagnosis of diabetes. Reference: Standards of [facility] Care in Diabetes 2016, [place] [employer]. Diabetes Care. 2016.39(Suppl 1). Performed By: #### CBCDIF, P T, PTT, CK, CMP, LIPA, MG1 #### [facility] [address] [place], [place] [phone] Potassium [Moles/Vol] 4.6 3.7-5.1 mmol/L Normal 12-18-[address] [place] [address] ([address]) Comment: Performed By: #### CBCDIF, P T, PTT, CK, CMP, LIPA, MG1 #### [facility] [address] [place], [place] [phone] Sodium [Moles/Vol] 138 136-144 mmol/L Normal 12-17-2018 [facility] ([id number]) Comment: Performed By: #### CBCDIF, P T, PTT, CK, CMP, LIPA, MG1 #### [facility] [address] [place], [place] [phone] Urea nitrogen [Mass/Vol] 31 9-24 mg/dL High 12-17 [facility] (57014) Comment: Performed By: #### CBCDIF, P T, PTT, CK, CMP, LIPA, MG1 #### [facility] [address] [place], [place] [phone] Anion gap [Moles/Vol] 13 9-18 mmol/L Normal 12-18-19 [facility] (26278) Comment: Performed By: #### CBCDIF, P T, PTT, CK, CMP, LIPA, MG1 #### [facility] [address] [facility] [phone] Calcium [Mass/Vol] 9.4 8.5-10.2 mg/dL Normal 12-17-2018 [facility] (92214) Comment: Performed By: #### CBCDIF, P T, PTT, CK, CMP, LIPA, MG1 #### [facility] [address] [facility] [phone] Chloride [Moles/Vol] 103 97-105 mmol/L Normal 9 [facility] (35461) Comment: Performed By: #### CBCDIF, P T, PTT, CK, CMP, LIPA, MG1 #### [facility] [address] [facility] [phone] CO2 [Moles/Vol] 24 22-30 mmol/L Normal 12-17-2018 [facility] (76985) Comment: Performed By: #### CBCDIF, P T, PTT, CK, CMP, LIPA, MG1 #### [facility] [address] [place] [address] Creatinine [Mass/Vol] 3.19 0.73-1.22 mg/dL High 12-18-19 19 [facility] (91352) Comment: Performed By: #### CBCDIF, P T, PTT, CK, CMP, LIPA, MG1 #### [facility] [address] [facility] [phone] eGFR- Amer. 24 Normal 12-17-2018 [facility] (02530) Comment: Performed By: #### CBCDIF, P T, PTT, CK, CMP, LIPA, MG1 #### [facility] [address] [place] [address] GFR/1.73 sq M predicted among 19 . Normal 12-17-2018 [facility] (19016) non-blacks MDRD (S/P/Bld) [Vol rate/Area] Comment: Result Comment: eGFR (Estima pratik GFR) Units of measure: mL/min/1.73 meters squared eGFR is derived from the ree xpressed MDRD Study equation using the following parameters: serum creatinine, age, gender and race. The creatinine assay has been calibrated to be traceable to IDMS. An eGFR <60 mL/min/1.73m2 fo r >3 months is consistent with chronic kidney disease. Refer to KDOQI guidelines for clinical interpretation. In patients with unstable re nal function, e.g. those with acute kidney injury, the eGFR may not accurately reflect actual GFR. Performed By: #### CBCDIF, P T, PTT, CK, CMP, LIPA, MG1 #### [facility] [address] [facility] [phone] Glucose [Mass/Vol] 192 74-99 mg/dL High 12-17-2018 [facility] (65824) Comment: Result Comment: The [place] Diabetes Association (ADA) provides guidance for cutoff values for fasting glucose and random glucose. The ADA defines fasting as no caloric intake for at least 8 hours. Fas ting plasma glucose results between 100 to 125 mg/dL indicate increased risk for diabetes (prediabetes). Fasting plasma glucose resul ts greater than or equal to 126 mg/dL meet the criteria for diagnosis of diabetes. In the absence of unequivocal hyperglycemia, results should be confirmed by repeat testing. In a patient with classic s ymptoms of hyperglycemia or hyperglycemic crisis, random plasma glucose results greater than or equal to 200 mg/dL meet the criteria for diagnosis of diabetes. Reference: Standards of [facility] Care in Diabetes 2016, [place] [employer]. Diabetes Care. 2016.39(Suppl 1). Performed By: #### CBCDIF, P T, PTT, CK, CMP, LIPA, MG1 #### [facility] [address] [facility] [phone] Potassium [Moles/Vol] 4.5 3.7-5.1 mmol/L Normal 12-18-19 [facility] (25515) Comment: Performed By: #### CBCDIF, P T, PTT, CK, CMP, LIPA, MG1 #### [facility] [address] [facility] [phone] Sodium [Moles/Vol] 140 136-144 mmol/L Normal 12-17-2018 [facility] (35822) Comment: Performed By: #### CBCDIF, P T, PTT, CK, CMP, LIPA, MG1 #### [facility] [address] [facility] [phone] Urea nitrogen [Mass/Vol] 35 9-24 mg/dL High 12-17 [facility] (22735) Comment: Performed By: #### CBCDIF, P T, PTT, CK, CMP, LIPA, MG1 #### [facility] [address] [place] [phone] Anion gap [Moles/Vol] 12 9-18 mmol/L Normal 12-18-19 [facility] (16558) Comment: Performed By: #### CBCDIF, P T, PTT, CK, CMP, LIPA, MG1 #### [facility] [address] [place] [phone] Calcium [Mass/Vol] 10.5 8.5-10.2 mg/dL High 12-17-2018 [facility] (38014) Comment: Performed By: #### CBCDIF, P T, PTT, CK, CMP, LIPA, MG1 #### [facility] [address] [place], [place] [phone] Chloride [Moles/Vol] 105 97-105 mmol/L Normal 9 [facility] (09382) Comment: Performed By: #### CBCDIF, P T, PTT, CK, CMP, LIPA, MG1 #### [facility] [address] [place], [place] [address] CO2 [Moles/Vol] 26 22-30 mmol/L Normal 12-17-2018 [facility] (55898) Comment: Performed By: #### CBCDIF, P T, PTT, CK, CMP, LIPA, MG1 #### [facility] [address] [place], [place] [address] Creatinine [Mass/Vol] 3.52 0.73-1.22 mg/dL High 12-18-19 [facility] (03824) Comment: Performed By: #### CBCDIF, P T, PTT, CK, CMP, LIPA, MG1 #### [facility] [address] [place] [address] eGFR- Amer. 21 Normal 12-17-2018 [facility] (65951) Comment: Performed By: #### CBCDIF, P T, PTT, CK, CMP, LIPA, MG1 #### [facility] [address] [facility] [phone] GFR/1.73 sq M predicted among 17 . Normal 12-17-2018 [facility] (86312) non-blacks MDRD (S/P/Bld) [Vol rate/Area] Comment: Result Comment: eGFR (Estima pratik GFR) Units of measure: mL/min/1.73 meters squared eGFR is derived from the ree xpressed MDRD Study equation using the following parameters: serum creatinine, age, gender and race. The creatinine assay has been calibrated to be traceable to IDMS. An eGFR <60 mL/min/1.73m2 fo r >3 months is consistent with chronic kidney disease. Refer to KDOQI guidelines for clinical interpretation. In patients with unstable re nal function, e.g. those with acute kidney injury, the eGFR may not accurately reflect actual GFR. Performed By: #### CBCDIF, P T, PTT, CK, CMP, LIPA, MG1 #### [facility] [address] [facility] [phone] Glucose [Mass/Vol] 128 74-99 mg/dL High 12-17-2018 [facility] (02071) Comment: Result Comment: The [place] Diabetes Association (ADA) provides guidance for cutoff values for fasting glucose and random glucose. The ADA defines fasting as no caloric intake for at least 8 hours. Fas ting plasma glucose results between 100 to 125 mg/dL indicate increased risk for diabetes (prediabetes). Fasting plasma glucose resul ts greater than or equal to 126 mg/dL meet the criteria for diagnosis of diabetes. In the absence of unequivocal hyperglycemia, results should be confirmed by repeat testing. In a patient with classic s ymptoms of hyperglycemia or hyperglycemic crisis, random plasma glucose results greater than or equal to 200 mg/dL meet the criteria for diagnosis of diabetes. Reference: Standards of [facility] Care in Diabetes 2016, [place] [employer]. Diabetes Care. 2016.39(Suppl 1). Performed By: #### CBCDIF, P T, PTT, CK, CMP, LIPA, MG1 #### [facility] [address] [facility] [phone] Potassium [Moles/Vol] 5.4 3.7-5.1 mmol/L High 12-18-19 19 [facility] (28370) Comment: Performed By: #### CBCDIF, P T, PTT, CK, CMP, LIPA, MG1 #### [facility] [address] [facility] [phone] Sodium [Moles/Vol] 143 136-144 mmol/L Normal 12-17-2018 [facility] (63267) Comment: Performed By: #### CBCDIF, P T, PTT, CK, CMP, LIPA, MG1 #### [facility] [address] [facility] [phone] Urea nitrogen [Mass/Vol] 36 9-24 mg/dL High 12-17 [facility] (13598) Comment: Performed By: #### CBCDIF, P T, PTT, CK, CMP, LIPA, MG1 #### [facility] [address] [place], [place] [phone] Anion gap [Moles/Vol] 10 9-18 mmol/L Normal 12-18-19 19 [facility] (50242) Comment: Performed By: #### CBCDIF, P T, PTT, CK, CMP, LIPA, MG1 #### [facility] [address] [facility] [phone] Calcium [Mass/Vol] 10.6 8.5-10.2 mg/dL High 12-17-2018 [facility] (90854) Comment: Performed By: #### CBCDIF, P T, PTT, CK, CMP, LIPA, MG1 #### [facility] [address] [place] [address] Chloride [Moles/Vol] 104 97-105 mmol/L Normal 9 [facility] (59124) Comment: Performed By: #### CBCDIF, P T, PTT, CK, CMP, LIPA, MG1 #### [facility] [address] [facility] [phone] CO2 [Moles/Vol] 26 22-30 mmol/L Normal 12-17-2018 [facility] (58152) Comment: Performed By: #### CBCDIF, P T, PTT, CK, CMP, LIPA, MG1 #### [facility] [address] [place] [address] Creatinine [Mass/Vol] 3.77 0.73-1.22 mg/dL High 12-18-19 19 [facility] (58710) Comment: Performed By: #### CBCDIF, P T, PTT, CK, CMP, LIPA, MG1 #### [facility] [address] [facility] [phone] eGFR- Amer. 19 Normal 12-17-2018 [facility] (18417) Comment: Performed By: #### CBCDIF, P T, PTT, CK, CMP, LIPA, MG1 #### [facility] [address] [facility] [phone] GFR/1.73 sq M predicted among 16 . Normal 12-17-2018 [facility] (52696) non-blacks MDRD (S/P/Bld) [Vol rate/Area] Comment: Result Comment: eGFR (Estima pratik GFR) Units of measure: mL/min/1.73 meters squared eGFR is derived from the ree xpressed MDRD Study equation using the following parameters: serum creatinine, age, gender and race. The creatinine assay has been calibrated to be traceable to IDMS. An eGFR <60 mL/min/1.73m2 fo r >3 months is consistent with chronic kidney disease. Refer to KDOQI guidelines for clinical interpretation. In patients with unstable re nal function, e.g. those with acute kidney injury, the eGFR may not accurately reflect actual GFR. Performed By: #### CBCDIF, P T, PTT, CK, CMP, LIPA, MG1 #### [facility] [address] [facility] [phone] Glucose [Mass/Vol] 101 74-99 mg/dL High 12-17-2018 [facility] (31323) Comment: Result Comment: The [place] Diabetes [employer] (ADA) provides guidance for cutoff values for fasting glucose and random glucose. The ADA defines fasting as no caloric intake for at least 8 hours. Fas ting plasma glucose results between 100 to 125 mg/dL indicate increased risk for diabetes (prediabetes). Fasting plasma glucose resul ts greater than or equal to 126 mg/dL meet the criteria for diagnosis of diabetes. In the absence of unequivocal hyperglycemia, results should be confirmed by repeat testing. In a patient with classic s ymptoms of hyperglycemia or hyperglycemic crisis, random plasma glucose results greater than or equal to 200 mg/dL meet the criteria for diagnosis of diabetes. Reference: Standards of [facility] Care in Diabetes 2016, [place] [employer]. Diabetes Care. 2016.39(Suppl 1). Performed By: #### CBCDIF, P T, PTT, CK, CMP, LIPA, MG1 #### [facility] [address] [facility] [phone] Potassium [Moles/Vol] 6.1 3.7-5.1 mmol/L Critically high [facility] (33716) Comment: Result Comment: Called to an d read back by: Gita CrawfordRN [place] [facility] 1 0019 by Gita Carson. Performed By: #### CBCDIF, P T, PTT, CK, CMP, LIPA, MG1 #### [facility] [address] [facility] [phone] Sodium [Moles/Vol] 140 136-144 mmol/L Normal 12-17-2018 [facility] (22192) Comment: Performed By: #### CBCDIF, P T, PTT, CK, CMP, LIPA, MG1 #### [facility] [address] [facility] [phone] Urea nitrogen [Mass/Vol] 38 9-24 mg/dL High 12-17 [facility] (37578) Comment: Performed By: #### CBCDIF, P T, PTT, CK, CMP, LIPA, MG1 #### [facility] [address] [facility] [phone] xr chest 1v frontal port on 2018-12-16 XR CHEST 1V * * *Final Report* * * Normal 12-16 [facility] FRONTAL PORT DATE OF EXAM: Dec 16 2018 8:03PM ([id number]) MDX [id number] - XR CHEST 1V FRONTAL PORT / PROCEDURE REASON: Fatigue and malaise * * * * Physician Interpretation * * * * EXAMINATION: CHEST RADIOGRAPH (SINGLE VIEW AP OR PA) Clinical History: Fatigue and malaise M: XC1_4 Comparison: 05/15/2017 RESULT: Lines, tubes, and devices: None. Lungs and pleura: No consolidation, pleural effusion or pneu mothorax. Cardiomediastinal silhouette: Stable and within normal limit s. Other: No acute osseous abnormality. IMPRESSION: No acute radiographic abnormality. Chemist Instrumentation: PSCB Transcribe Date/Time: Dec 16 2018 8:04P Dictated by : JUMANA SANDHU MD This examination was interpreted and the report reviewed and electronically signed by: JUMANA SANDHU MD on Dec 16 2018 8:07PM EST [id number] type and screen on 2018-12-16 ABO/RH(D) O POSITIVE Normal 12-16-2018 [facility] (73757) Comment: Performed By: #### CBCDIF, P T, PTT, CK, CMP, LIPA, MG1 #### [facility] [address] [place] [phone] troponin t on 12-16 Troponin T.cardiac <0.010 0.000-0.029 ug/L Normal [address] [place] [address] [Mass/Vol] ([id number]) Comment: Performed By: #### CBCDIF, P T, PTT, CK, CMP, LIPA, MG1 #### [facility] [address] [facility] [phone] protime on PT Coag (PPP) [Time] 11.4 9.7-13.0 sec Normal [address] [place] [address] ([id number]) Comment: Performed By: #### CBCDIF, P T, PTT, CK, CMP, LIPA, MG1 #### [facility] [address] [place] [address] PT Coag (PPP) [Time] 1.1 0.9-1.[address] s Normal [address] [place] [address] (63086) Comment: Result Comment: Vitamin K An tagonist (VKA) Therapeutic Range: INR 2 to 3 (Target INR of 2.5) Note: For patients treated w ith VKA drugs, such as warfarin, the [place] [employer] 2012 Guideline recommends a therapeutic INR range of 2 to 3 (target INR of 2.5). This recommendation includes high-risk patients with antiphospholipid syndrome with previous arterial or venous thromboembolism, current-generation mechanical or bioprosthetic aortic heart valve replacement. Note: Patients with heavy duty mechanic al aortic valve replacement and additional risk factors for thromboembolic events (atrial fibrillation, previous thromboembolism, LV dysfunction, hypercoagulable conditions) or an older generation mecha nical AVR (i.e., ball in-Cage) or any mechanical MVR should have a INR therapeutic range of 2.5 to 3.5 (target INR of 3). Sawyer EDMONDSON, et al. Chest 2012 , 141:7S-47S Kathy BRITO et al. [facility] 20 17, 70: [phone] Performed By: #### CBCDIF, P T, PTT, CK, CMP, LIPA, MG1 #### [facility] [address] [facility] [phone] progress on 2018-11 PROGRESS HNO ID: [id number] Normal 12-16-2018 [facility] ([id number]) Author: Jp Mckeon Service: [facility] Author Type: Physician Type: Progress Notes Filed: 12/16/2018 8:50 PM Note Text: [facility] Provider Note Call Initiation By: [facility] Primary Reason for Call (Other): 68 yo man s/p abdominal erna elijah with diagnosis of Crohns disease (3 weeks ago) with high ostomy o utput who presents after a syncopal event wtih LOR and hyperkalemia. Objective Data:: LOR (4.13 mg/dL) and hyperkalemia (6.3 mEq/ L). Clear CKR. Adequate BP and oxygenation. Assessment: LOR on CKD and hyperkalemia. Reasons for syncope either hypovolemia / hypotension (most likely) / arrhytmia. Central sleep apnea. CKD stage 3. LOR on CKD likely related to a prerenal compone nt +/- ATN (hypotension) given marked output from colostomy. Intervention(s): Review admission plan of care. Treatment of hyperkalemia. Contact nephrology. Fluids. Check TSH. Kidney US. Urinary st udies. Check urinary output. FEna (need urine Na and creatinine spot), cl ose follow-up of K levels. This patient has the following organ/system impairment(s): : Severe electrolyte imbalance, LOR on CKD. rgan/system impairment(s) Other: LOR SIGNATURE: Jp Mckeon MD PATIENT NAME: Venkata andrade DATE: December 16 2018 TIME: 08:30 PM nt pro bnp on 12-16 PRO B Natr Peptide 36 <125 pg/mL Normal 12-16-2018 [facility] ([id number]) Comment: Performed By: #### CBCDIF, P T, PTT, CK, CMP, LIPA, MG1 #### [facility] [address] [facility] [phone] magnesium on 2018-02 Magnesium [Mass/Vol] 1.7 1.7-2.3 mg/dL Normal 9 [facility] ([id number]) Comment: Performed By: #### CBCDIF, P T, PTT, CK, CMP, LIPA, MG1 #### [facility] [address] [facility] [phone] lipase on 2018-11-19 0 Lipase [Catalytic 43 16-61 U/L Normal 12-16-2018 [facility] ([id number]) activity/Vol] Comment: Performed By: #### CBCDIF, P T, PTT, CK, CMP, LIPA, MG1 #### [facility] [address] [facility] [phone] ed prov note on 10-27-29 ED PROV HNO ID: [id number] Normal 12-16-2018 [place] NOTE Author: Horace Monroy MD [facility] Service: ? ([id number]) Author Type: Physician Type: ED Provider Notes Filed: 12/16/2018 8:57 PM Note Text: ED Provider Note Patient Name: Venkata Leal SERVICE DATE: 12/16/18 History Patient presents with: Syncope HPI Mr. Leal is a pleasant 68 yo M status post exploratory laparotomy with repeat resection of his christina-terminal ileum and ileocolo valeri anastomosis because of concern for ileocolic stricture by Dr Bryan Teixeira ~ 3 wks ago presenting with ongoing impressive ostomy output, st opped his Lasix 2 days ago, now with syncope. He denies chest pain or trouble breathing or increased abdominal discomfort or nausea or vom iting. He continues to take fluids, though they have asked him to hold off on aggressive fluids, given his aggressive ostomy output. Per h is chart, he has a history of portal hypertension and esophageal varices, and recently had blood transfusion, though he doesn't think he is bleedin g presently, in the stool in his bag is yellow. 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 - Esophageal reflux - Hypothyroidism - Internal hemorrhoids without mention of complication - Irritable bowel syndrome - Lipoma of other specified sites - Mesenteric mass carcinoid - GOMEZ (nonalcoholic steatohepatitis) - ALEXIS (obstructive sleep apnea) DME [facility] - Oxygen order for 02 bleed in DME is [facility] n[facility] - Other and unspecified hyperlipidemia - PAD (peripheral artery disease) (HCC) - Stroke (HCC) 2008 TIA-questionable diagnosis - Type 2 diabetes mellitus with complication (HCC) 6 - Unspecified essential hypertension - Vitamin B12 deficiency - Vitamin D deficiency PAST SURGICAL HISTORY Procedure Laterality Date - APPENDECTOMY 1970 - ARTHROS SHLDR DX W/WO SYNV BX Right 09/06/15 Right shoulder diagnostic arthroscopy - BALLN ANGIOPLASTY PERC,FEM-POP 1997 - BALLN ANGIOPLASTY PERC,FEM-POP 09/24/06 - CATHETER ART SYS-1ST ORD, ABDOM, PELVIC, OR LOWER 1997 - CATHETER ART SYS-1ST ORD, ABDOM, PELVIC, OR LOWER 1997 with stent - CATHETER ART SYS-1ST ORD, ABDOM, PELVIC, OR LOWER 09/24/06 - COLONOSCOP W/ OR W/O [facility] SPEC 05/30/2004 Colonoscopy - COLONOSCOP W/ OR W/O [facility] SPEC 05/18/14 Colonoscopy - EGD W/O [facility] SPECIMEN W/BX 10/24/06 Esophagiti,gastritis,duodenitis - EGD W/O OR W/BRUSH/WASH 10/26/1998 EGD - HEART SURGERY HX Stent 1995 - KNEE SCOPE,DIAGNOSTIC Right 2004 Arthroscopy, knee - LAP INC HERNIA REPAIR 09-29-12 - LAPAROSCOPIC CHOLEYCYSTECTOMY 08 Cholecystectomy, lap - PAST SURGICAL HISTORY OF 2006 stent placement Both legs - PAST SURGICAL HISTORY OF 12-08-10 small bowel resection [facility] main - cancerious - PAST SURGICAL HISTORY OF 06/19/2015 Left eye cataract surgery - PERCATAN, EXTREMITY ARTERY 09/24/06 - REMOVAL OF TONSILS,<12 Y/O Tonsillectomy - REPAIR COMPL ROTATOR CUFF AVULSN,CHR Right 09/06/15 Subacromial decompression, rotator cuff repair, and labral d ebridement - REPAIR ING HERNIA,5+Y/O,REDUCIBL Hernia repair, inguinal lt FAMILY HISTORY Problem Relation Age of Onset - Diabetes Mother - other (Uterine cancer) Mother - Heart Father [place] - Hypertension Father - Heart Sister 60age - Stroke Sister - Diabetes Sister 65age - other (fibromyalgia) Sister x 4 - Diabetes Sister oral meds Social History Tobacco Use - Smoking status: Former Smoker Packs/day: 1.00 Years: 35.00 Pack years: 35.00 Types: Cigarettes Start date: 02/17/1971 Last attempt to quit: 02/17/2006 Years since quittin.8 - Smokeless tobacco: Never Used Substance and Sexual Activity - Alcohol use: No Alcohol/week: 1.7 standard drinks - Drug use: No - Sexual activity: Yes Partners: Female ALLERGIES Allergen Reactions - Lipitor [Atorvastat* Intolerance myalgias - Zocor [Simvastatin] Intolerance myalgias - Novacain [Other] Intolerance Headache when it wears off - Lescol [Fluvastatin* Intolerance myalgia Review of Systems Constitutional: Positive for fatigue. Negative for chills an d fever. HENT: Negative for ear pain, rhinorrhea and sore throat. Respiratory: Negative for cough and shortness of breath. Cardiovascular: Negative for chest pain and leg swelling. Gastrointestinal: Positive for diarrhea. Negative for abdomi nal pain, nausea and vomiting. Genitourinary: Negative for dysuria, flank pain, frequency a nd hematuria. Musculoskeletal: Negative for back pain. Skin: Negative for rash. Neurological: Positive for syncope, weakness and light-heade dness. Negative for speech difficulty, numbness and headaches. Psychiatric/Behavioral: Negative for hallucinations and suic idal ideas. Physical Exam BP 121/65 Pulse 63 Temp (Src) 97.8 (Oral) Resp 20 Wt 215 lb (97.5kg) SpO2 95% O2 Therapy: Room Air Physical Exam Constitutional: He is oriented to person, place, and time. N o distress. Chronically ill, no distress HENT: Head: Normocephalic and atraumatic. Mouth/Throat: No oropharyngeal exudate. Dry MM Eyes: Pupils are equal, round, and reactive to light. Neck: Normal range of motion. Neck supple. No tracheal devia tion present. Cardiovascular: Normal rate and intact distal pulses. Exam r eveals no gallop and no friction rub. No murmur heard. Pulmonary/Chest: Effort normal and breath sounds normal. No respiratory distress. He has no wheezes. He has no rales. Abdominal: Soft. Bowel sounds are normal. He exhibits no dis tension. There is no tenderness. There is no rebound and no guarding. R ostomy C/D/I, wound vertical C/D/I; non-tender Musculoskeletal: Normal range of motion. He exhibits no taiwo a. Lymphadenopathy: He has no cervical adenopathy. Neurological: He is alert and oriented to person, place, and time. No cranial nerve deficit. He exhibits normal muscle tone. Skin: Skin is warm and dry. No erythema. Wound as above Psychiatric: He has a normal mood and affect. His behavior i s normal. Judgment and thought content normal. Nursing note and vitals reviewed. Diagnostic Testing ED Labs Ordered and Reviewed CBC + DIFF - Abnormal; Notable for the following components: Result Value Ref Range RBC 3.93 (*) 4.20 - 6.00 m/uL Hemoglobin 12.5 (*) 13.0 - 17.0 g/dL Hematocrit 37.8 (*) 39.0 - 51.0 % Abs Lymph 0.71 (*) 1.00 - 4.00 k/uL All other components within normal limits COMP METABOLIC PANEL MAGNESIUM BLD LIPASE BLD CK CREATINE KINASE TROPONIN T NT PRO BNP PROTHROMBIN TIME/PT ACTIVATED PTT TYPE + SCREEN Procedures ED Course / Clinical Impression ED Course as of Dec 16 2054 Horace Monroy's Documentation FriDec 16, 2018 191 ECG NSR @ 63 bpm RBBB (new) peaked T waves (new) no [place] [address]52 Repeat ECG NSR @ 64 bpm no STEMI resolution of RBBB/Pea ked T waves Clinical Impressions as of Dec 16 2054 Hyperkalemia LOR (acute kidney injury) (HCC) Syncope and collapse MDM / Disposition / Plan MDM Course: Vital signs were reviewed. Triage records were reviewed. Medical records were reviewed. Nursing notes were reviewed and incorporated. Intravenous fluids were given. The following medications were administered: calcium, bicarb kale, insulin/d50 Patient placed on monitor ECG reviewed and interpreted as above Labs reviewed and interpreted as below Radiographs were reviewed as below. Medical Decision Making: Differential diagnosis: Hypovolemia related to impressive os kay output, electrolyte disarray, anemia, ACS unlikely but checking ECG and enzymes, intra-abdominal pathology less likely, other causes of simil ar symptoms. Assessment and plan: Mr. Leal is a pleasant 68-year-old man presenting today with likely hypovolemia related to impressive ostomy o utput after surgery. We will reassess after work up here. K 6.3, RBBB and peaked T waves (wide QRS) that are new on EC G. Cr 4 from 3 yesterday and 1.8 previous to that. Gave Calcium, bicarbon ate, insulin/d50. ECG w/ normalization on repeat. Will repeat BMP . Admitted by ehospitalist to ICU and Dr. Kebede, concrete paver for nephrolog y, will c/s (discussed case w/ him - ordered 2nd L NS on his recommendat ion). Critical Care I spent a total of 35 minutes of critical care time in the e valuation and management of this patient. This was necessary to treat or p revent deterioration of the following condition(s): Severe metaboli c abnormality, which the patient had and/or has a high probability of sudde nly developing. The patient received above medications, IV Fluid s, Correction of Electrolyte Abnormality and Consultation by above physici ans during the time that critical care was provided. Critical care time exc lud separately billed procedures. Horace Monroy MD The attending who evaluated and managed this patient was Horace Zhou . Plan: The patient was admitted to ICU. Case discussed with [facility] physician, Dr. Massey's ehospitalist overnight colleague. Consent: A procedure or transfusion was performed - No Horace Monroy MD SIGNATURE: MD Horace Son MD 12/16/182056 ed note on ED NOTE HNO ID: [id number] Normal 12-16-2018 [facility] ([id number]) Author: Mignon SalinasRn) HITESH Rogers Service: ? Author Type: Registered Nurse Type: ED Notes Filed: 12/16/2018 7:53 PM Note Text: Pt states when he gets up to go to bathroom to empty his col ostomy bag he experiences severe pain in shoulder and neck so bad that he can't even hold his head up ED NOTE HNO ID: [id number] Normal 12-16-2018 [facility] ([id number]) Author: Isha SalinasRn) HITESH Hu Service: ? Author Type: Registered Nurse Type: ED Notes Filed: 12/16/2018 7:16 PM Note Text: Patient presents to the ED after a syncopal episode at home. Patient had recent ostomy placed at [facility] and has been struggling with hydration. ecg complete on 10-27-29 ECG COMPLETE NAME : VENKATA LEAL Normal 2018 [facility] PID : [id number] ([id number]) : 1950 Gender : Male Race : ORD : [id number] Procedure Date : Dec 16 2018 20:43:30 Edit Date : Dec 17 2018 06:57:04 Diagnosis:NORMAL SINUS RHYTHM NORMAL ECG RESOLUTION OF RBBB/PEAKED T WAVES NO STEMI Confirmed by MD CAN, ED CHAN.S ([id number]), general expeditor MELCHOR SQUIRES ([id number]) on 12/17/2018 6:56:59 AM Systolic BP : 106 mmHg Diastolic BP : 62 mmHg Ventricular Rate : 64 BPM Atrial Rate : 64 BPM P-R Interval : 156 ms QRS Duration : 94 ms Q-T Interval : 392 ms QTC Calculation(Bazett) : 404 ms P Drummond : 61 degrees R Drummond : 89 degrees T Drummond : 59 degrees Test Reason : Chest Pain Location : 1 : ER 11 Overread By : MD CAN,EDWARD.S Edited By : MELCHOR SQUIRES Referred By : System,System Acquired by : System,System ECG COMPLETE NAME : VENKATA LEAL Normal 2018 [facility] PID : [id number] ([id number]) : 1950 Gender : Male Race : ORD : [id number] Procedure Date : Dec 16 2018 19:11:20 Edit Date : Dec 17 2018 06:55:11 Diagnosis:NORMAL SINUS RHYTHM RIGHT BUNDLE BRANCH BLOCK ABNORMAL ECG NO STEMI Confirmed by MD CAN, ED CHAN.S ([id number]), general expeditor MELCHOR SQUIRES ([id number]) on 12/17/2018 6:55:11 AM Ventricular Rate : 63 BPM Atrial Rate : 63 BPM P-R Interval : 160 ms QRS Duration : 142 ms Q-T Interval : 408 ms QTC Calculation(Bazett) : 417 ms P Drummond : 61 degrees R Drummond : 93 degrees T Drummond : 29 degrees Test Reason : Chest Pain Location : 1 : ER 11 Overread By : MD CAN,HORACE.S Edited By : MELCHOR SQUIRES Referred By : System,System Acquired by : System,System comp metabolic panel on 2018-12-16 Albumin [Mass/Vol] 4.6 3.9-4.9 g/dL Normal 12-16-2018 [facility] ([id number]) Comment: Performed By: #### CBCDIF, P T, PTT, CK, CMP, LIPA, MG1 #### [facility] [address] [place] [address] ALP [Catalytic activity/Vol] 168 38-113 U/L High 1 [facility] ([id number]) Comment: Performed By: #### CBCDIF, P T, PTT, CK, CMP, LIPA, MG1 #### [facility] [address] [place] [address] ALT [Catalytic activity/Vol] 55 10-54 U/L High 1 [facility] ([id number]) Comment: Performed By: #### CBCDIF, P T, PTT, CK, CMP, LIPA, MG1 #### [facility] [address] [place] [address] Anion gap [Moles/Vol] 14 9-18 mmol/L Normal 12-17-19 19 [facility] ([id number]) Comment: Performed By: #### CBCDIF, P T, PTT, CK, CMP, LIPA, MG1 #### [facility] [address] [place] [address] AST [Catalytic activity/Vol] 60 14-40 U/L High 1 [facility] ([id number]) Comment: Performed By: #### CBCDIF, P T, PTT, CK, CMP, LIPA, MG1 #### [facility] [address] [place] [address] Bilirubin [Mass/Vol] 0.5 0.2-1.3 mg/dL Normal [facility] (56693) Comment: Performed By: #### CBCDIF, P T, PTT, CK, CMP, LIPA, MG1 #### [facility] [address] [facility] [phone] Calcium [Mass/Vol] 11.0 8.5-10.2 mg/dL High 12-16-2018 [facility] (03006) Comment: Performed By: #### CBCDIF, P T, PTT, CK, CMP, LIPA, MG1 #### [facility] [address] [facility] [phone] Chloride [Moles/Vol] 98 97-105 mmol/L Normal 9 [facility] (67056) Comment: Performed By: #### CBCDIF, P T, PTT, CK, CMP, LIPA, MG1 #### [facility] [address] [facility] [phone] CO2 [Moles/Vol] 23 22-30 mmol/L Normal 12-16-2018 [facility] ([id number]) Comment: Performed By: #### CBCDIF, P T, PTT, CK, CMP, LIPA, MG1 #### [facility] [address] [facility] [phone] Creatinine [Mass/Vol] 4.13 0.73-1.22 mg/dL High 12-17-19 19 [facility] (61607) Comment: Performed By: #### CBCDIF, P T, PTT, CK, CMP, LIPA, MG1 #### [facility] [address] [facility] [phone] eGFR- Amer. 17 Normal 12-16-2018 [facility] ([id number]) Comment: Performed By: #### CBCDIF, P T, PTT, CK, CMP, LIPA, MG1 #### [facility] [address] [facility] [phone] GFR/1.73 sq M predicted among 14 . Normal 12-16-2018 [facility] (65010) non-blacks MDRD (S/P/Bld) [Vol rate/Area] Comment: Result Comment: eGFR (Estima pratik GFR) Units of measure: mL/min/1.73 meters squared eGFR is derived from the ree xpressed MDRD Study equation using the following parameters: serum creatinine, age, gender and race. The creatinine assay has been calibrated to be traceable to IDMS. An eGFR <60 mL/min/1.73m2 fo r >3 months is consistent with chronic kidney disease. Refer to KDOQI guidelines for clinical interpretation. In patients with unstable re nal function, e.g. those with acute kidney injury, the eGFR may not accurately reflect actual GFR. Performed By: #### CBCDIF, P T, PTT, CK, CMP, LIPA, MG1 #### [facility] [address] [facility] [phone] Glucose [Mass/Vol] 171 74-99 mg/dL High 12-16-2018 [facility] (57404) Comment: Result Comment: The [place] [employer] (ADA) provides guidance for cutoff values for fasting glucose and random glucose. The ADA defines fasting as no caloric intake for at least 8 hours. Fas ting plasma glucose results between 100 to 125 mg/dL indicate increased risk for diabetes (prediabetes). Fasting plasma glucose resul ts greater than or equal to 126 mg/dL meet the criteria for diagnosis of diabetes. In the absence of unequivocal hyperglycemia, results should be confirmed by repeat testing. In a patient with classic s ymptoms of hyperglycemia or hyperglycemic crisis, random plasma glucose results greater than or equal to 200 mg/dL meet the criteria for diagnosis of diabetes. Reference: Standards of [facility] Care in Diabetes 2016, [place] [employer]. Diabetes Care. 2016.39(Suppl 1). Performed By: #### CBCDIF, P T, PTT, CK, CMP, LIPA, MG1 #### [facility] [address] [facility] [phone] Potassium [Moles/Vol] 6.3 3.7-5.1 mmol/L Critically high [facility] (14482) Comment: Result Comment: Called to an d read back by: Rohan Samayoa RN [facility] 11/19 Flo Hurd Performed By: #### CBCDIF, P T, PTT, CK, CMP, LIPA, MG1 #### [facility] [address] [facility] [phone] Protein [Mass/Vol] 7.6 6.3-8.0 g/dL Normal 12-16-2018 [facility] (67152) Comment: Performed By: #### CBCDIF, P T, PTT, CK, CMP, LIPA, MG1 #### [facility] [address] [place] [phone] Sodium [Moles/Vol] 135 136-144 mmol/L Low 12-16-2018 [facility] (05196) Comment: Performed By: #### CBCDIF, P T, PTT, CK, CMP, LIPA, MG1 #### [facility] [address] [place], [place] [phone] Urea nitrogen [Mass/Vol] 38 9-24 mg/dL High 12-16 [facility] (89027) Comment: Performed By: #### CBCDIF, P T, PTT, CK, CMP, LIPA, MG1 #### [facility] [address] [place], [place] [phone] ck on 2018-12-16 CK [Catalytic activity/Vol] 60 51-298 U/L Normal [facility] (85062) Comment: Performed By: #### CBCDIF, P T, PTT, CK, CMP, LIPA, MG1 #### [facility] [address] [place] [phone] cbc and differential on 2018-12-16 Abs Baso 0.09 <0.11 k/uL Normal 12-16-2018 [facility] (14326) Comment: Performed By: #### CBCDIF, P T, PTT, CK, CMP, LIPA, MG1 #### [facility] [address] [place] [phone] Abs Zapata 0.71 <0.87 k/uL Normal 12-16-2018 [facility] (73925) Comment: Performed By: #### CBCDIF, P T, PTT, CK, CMP, LIPA, MG1 #### [facility] [address] [place], [place] [address] Abs Neut 4.57 1.45-7.50 k/uL Normal 12-16-2018 [facility] (33224) Comment: Performed By: #### CBCDIF, P T, PTT, CK, CMP, LIPA, MG1 #### [facility] [address] [facility] [phone] Basophils/100 WBC (Bld) 1.4 % Normal 2018 [facility] (65627) Comment: Performed By: #### CBCDIF, P T, PTT, CK, CMP, LIPA, MG1 #### [facility] [address] [facility] [phone] Eosinophils (Bld) [#/Vol] 0.16 <0.46 k/uL Normal 11-19 [facility] (89040) Comment: Performed By: #### CBCDIF, P T, PTT, CK, CMP, LIPA, MG1 #### [facility] [address] [facility] [phone] Eosinophils/100 WBC (Bld) 2.6 % Normal 11-19 [facility] (21213) Comment: Performed By: #### CBCDIF, P T, PTT, CK, CMP, LIPA, MG1 #### [facility] [address] [place] [address] Erythrocyte distribution 15.0 11.5-15.0 % Normal 12-16 [facility] (00137) width (RBC) [Ratio] Comment: Performed By: #### CBCDIF, P T, PTT, CK, CMP, LIPA, MG1 #### [facility] [address] [place] [address] Hematocrit (Bld) [Volume 37.8 39.0-51.0 % Low 12-16 [facility] (58357) fraction] Comment: Performed By: #### CBCDIF, P T, PTT, CK, CMP, LIPA, MG1 #### [facility] [address] [place] [address] Hemoglobin (Bld) 12.5 13.0-17.0 g/dL Low 12-16-2018 [facility] (73197) [Mass/Vol] Comment: Performed By: #### CBCDIF, P T, PTT, CK, CMP, LIPA, MG1 #### [facility] [address] [place] [address] Lymphocytes (Bld) [#/Vol] 0.71 1.00-4.00 k/uL Low 11-19 [facility] (96674) Comment: Performed By: #### CBCDIF, P T, PTT, CK, CMP, LIPA, MG1 #### [facility] [address] [place] [address] Lymphocytes/100 WBC (Bld) 11.4 % Normal 11-19 [facility] (84284) Comment: Performed By: #### CBCDIF, P T, PTT, CK, CMP, LIPA, MG1 #### [facility] [address] [place] [address] MCH (RBC) [Entitic mass] 31.8 26.0-34.0 pG Normal 12-16 [facility] (33047) Comment: Performed By: #### CBCDIF, P T, PTT, CK, CMP, LIPA, MG1 #### [facility] [address] [place] [address] MCHC (RBC) [Mass/Vol] 33.1 30.5-36.0 g/dL Normal 12-17-19 [facility] (79143) Comment: Performed By: #### CBCDIF, P T, PTT, CK, CMP, LIPA, MG1 #### [facility] [address] [place] [address] MCV (RBC) [Entitic vol] 96.2 80.0-100.0 fL Normal 12-16 [facility] (49748) Comment: Performed By: #### CBCDIF, P T, PTT, CK, CMP, LIPA, MG1 #### [facility] [address] [place] [address] Monocytes/100 WBC (Bld) 11.4 % Normal 2018 [facility] (26420) Comment: Performed By: #### CBCDIF, P T, PTT, CK, CMP, LIPA, MG1 #### [facility] [address] [place] [address] Neutrophils/100 WBC (Bld) 73.2 % Normal 11-19 [facility] (40895) Comment: Performed By: #### CBCDIF, P T, PTT, CK, CMP, LIPA, MG1 #### [facility] [address] [place] [phone] Platelet mean volume (Bld) 11.8 9.0-12.7 fL Normal [facility] (05647) [Entitic vol] Comment: Performed By: #### CBCDIF, P T, PTT, CK, CMP, LIPA, MG1 #### [facility] [address] [place], [place] [phone] Platelets (Bld) [#/Vol] 190 150-400 k/uL Normal 2018 [facility] (72738) Comment: Performed By: #### CBCDIF, P T, PTT, CK, CMP, LIPA, MG1 #### [facility] [address] [place] [address] RBC (Bld) [#/Vol] 3.93 4.20-6.00 m/uL Low 12-16-2018 [facility] (27139) Comment: Performed By: #### CBCDIF, P T, PTT, CK, CMP, LIPA, MG1 #### [facility] [address] [place] [address] WBC (Bld) [#/Vol] 6.24 3.70-11.00 k/uL Normal 12-16-2018 [facility] (59193) Comment: Performed By: #### CBCDIF, P T, PTT, CK, CMP, LIPA, MG1 #### [facility] [address] [place], [place] [phone] basic metabolic panl on 2018-12-16 Anion gap [Moles/Vol] 9 9-18 mmol/L Normal 12-17-19 19 [facility] (99642) Comment: Performed By: #### CBCDIF, P T, PTT, CK, CMP, LIPA, MG1 #### [facility] [address] [place], [place] [phone] Calcium [Mass/Vol] 10.5 8.5-10.2 mg/dL High 12-16-2018 [facility] (76844) Comment: Performed By: #### CBCDIF, P T, PTT, CK, CMP, LIPA, MG1 #### [facility] [address] [place], [place] [phone] Chloride [Moles/Vol] 102 97-105 mmol/L Normal 9 [facility] (55170) Comment: Performed By: #### CBCDIF, P T, PTT, CK, CMP, LIPA, MG1 #### [facility] [address] [facility] [phone] CO2 [Moles/Vol] 25 22-30 mmol/L Normal 12-16-2018 [facility] (19326) Comment: Performed By: #### CBCDIF, P T, PTT, CK, CMP, LIPA, MG1 #### [facility] [address] [place] [phone] Creatinine [Mass/Vol] 3.76 0.73-1.22 mg/dL High 12-17-19 19 [facility] (52142) Comment: Performed By: #### CBCDIF, P T, PTT, CK, CMP, LIPA, MG1 #### [facility] [address] [place] [phone] eGFR- Amer. 19 Normal 12-16-2018 [facility] (32847) Comment: Performed By: #### CBCDIF, P T, PTT, CK, CMP, LIPA, MG1 #### [facility] [address] [place] [phone] GFR/1.73 sq M predicted among 16 . Normal 12-16-2018 [facility] (64703) non-blacks MDRD (S/P/Bld) [Vol rate/Area] Comment: Result Comment: eGFR (Estima pratik GFR) Units of measure: mL/min/1.73 meters squared eGFR is derived from the ree xpressed MDRD Study equation using the following parameters: serum creatinine, age, gender and race. The creatinine assay has been calibrated to be traceable to IDMS. An eGFR <60 mL/min/1.73m2 fo r >3 months is consistent with chronic kidney disease. Refer to KDOQI guidelines for clinical interpretation. In patients with unstable re nal function, e.g. those with acute kidney injury, the eGFR may not accurately reflect actual GFR. Performed By: #### CBCDIF, P T, PTT, CK, CMP, LIPA, MG1 #### [facility] [address] [facility] [phone] Glucose [Mass/Vol] 249 74-99 mg/dL High 12-16-2018 [facility] (15902) Comment: Result Comment: The [place] [employer] (ADA) provides guidance for cutoff values for fasting glucose and random glucose. The ADA defines fasting as no caloric intake for at least 8 hours. Fas ting plasma glucose results between 100 to 125 mg/dL indicate increased risk for diabetes (prediabetes). Fasting plasma glucose resul ts greater than or equal to 126 mg/dL meet the criteria for diagnosis of diabetes. In the absence of unequivocal hyperglycemia, results should be confirmed by repeat testing. In a patient with classic s ymptoms of hyperglycemia or hyperglycemic crisis, random plasma glucose results greater than or equal to 200 mg/dL meet the criteria for diagnosis of diabetes. Reference: Standards of [facility] Care in Diabetes 2016, [place] [employer]. Diabetes Care. 2016.39(Suppl 1). Performed By: #### CBCDIF, P T, PTT, CK, CMP, LIPA, MG1 #### [facility] [address] [place] [address] Potassium [Moles/Vol] 6.0 3.7-5.1 mmol/L High 12-17-19 [facility] (68688) Comment: Performed By: #### CBCDIF, P T, PTT, CK, CMP, LIPA, MG1 #### [facility] [address] [place] [address] Sodium [Moles/Vol] 136 136-144 mmol/L Normal 12-16-2018 [facility] (93227) Comment: Performed By: #### CBCDIF, P T, PTT, CK, CMP, LIPA, MG1 #### [facility] [address] [facility] [phone] Urea nitrogen [Mass/Vol] 39 9-24 mg/dL High 12-16 [facility] (87918) Comment: Performed By: #### CBCDIF, P T, PTT, CK, CMP, LIPA, MG1 #### [facility] [address] [facility] [phone] aptt on 2018-12-16 aPTT Coag (Bld) [Time] 24.2 23.0-32.4 sec Normal [address] [place] [address] (95239) Comment: Result Comment: Unfractionat ed Heparin Therapeutic Ranges: Standard Heparin Nomogram: 5 3 to 78 seconds (anti-Xa level of 0.3 to 0.7 U/ml) Low Dose/ACS Nomogram: 49 to 67 seconds (anti-Xa level of 0.2 to 0.5 U/ml) Stroke Treatment Nomogram: 4 9 to 67 seconds (anti-Xa level of 0.2 to 0.5 U/ml) Note: The APTT therapeutic r nicanor has been determined for the current lot of laboratory APTT reagent in use throughout the [facility]. Performed By: #### CBCDIF, P T, PTT, CK, CMP, LIPA, MG1 #### [facility] [address] [facility] [phone] allied health on 05-12-29 [facility] HNO ID: [id number] Normal [address] [place] [address] Author: JOSE Figueroa (Ct) ([id number]) Service: ? Author Type: Clinical Buttonhole Maker Hand Type: Allied Health Filed: 12/16/2018 8:01 PM Note Text: Radiology Service Progress Note PATIENT NAME: Venkata Leal DATE OF SERVICE: December 16, 2018 TIME: 8:01 PM PATIENT IDENTITY VERIFICATION COMPLETED USING TWO (2) METHOD S: Name and Date of confirmed by patient verbally. PATIENT GENDER DATA: Male PATIENT RELEVANT IMPLANT DATA REVIEWED: Not Applicable RADIOLOGY DEPARTMENT: General X-ray: Exam(s) Completed: [place]-Ray PERIPHERAL IV DATA: Not applicable SIGNED BY: JOSE Figueroa December 16, 2018 8:01 PM devonte abs gr + cbc on 2018-12-15 Absol Gran Count 6.08 1.45-7.50 k/uL Normal 12-15-2018 [facility] (83172) Erythrocyte distribution 15.1 11.5-15.0 % High 12-15 [facility] width (RBC) [Ratio] [place] (36917) Hematocrit (Bld) [Volume 36.2 39.0-51.0 % Low 12-15 [facility] fraction] [place] (48522) Hemoglobin (Bld) 12.1 13.0-17.0 g/dL Low 12-15-2018 [facility] [Mass/Vol] [place] (24881) MCH (RBC) [Entitic mass] 32.2 26.0-34.0 pg Normal 12-15 [facility] (77066) MCHC (RBC) [Mass/Vol] 33.4 30.5-36.0 g/dL Normal 12-16-[address] [facility] (04947) MCV (RBC) [Entitic vol] 96.3 80.0-100.0 fL Normal 12-15 [facility] (18885) Platelet mean volume 11.7 9.0-12.7 fL Normal 9 [facility] (Bld) [Entitic vol] [place] (88013) Comment: Result Comment: Test perform ed by: [facility] [place], [address] [place] [address] Rd[address] [place], [place] [address]. RBC (Bld) [#/Vol] 3.76 4.20-6.00 m/uL Low 12-15-2018 [facility] (58253) WBC (Bld) [#/Vol] 8.56 3.70-11.00 k/uL Normal 12-15-2018 [facility] (77128) Garner Platelet Cnt 213 150-400 k/uL Normal 9 [facility] (91227) tsh on 2018-12-15 TSH Qn 8.060 0.270-4.200 uU/mL High 12-15-2018 [facility] (84566) Comment: Performed By: #### TSH ####C [facility] [id number] [place], [place] [phone] progress on 2018-11 PROGRESS Normal 12-15-2018 [facility] (55305) comp metabolic panel on 2018-12-15 Albumin [Mass/Vol] 4.5 3.9-4.9 g/dL Normal 12-15-2018 [facility] (28853) ALP [Catalytic 152 38-113 U/L High 12-15-2018 [facility] activity/Vol] [place] and (41090) ALT [Catalytic 44 10-54 U/L Normal 12-15-2018 [facility] activity/Vol] Clevel and (46103) Anion gap [Moles/Vol] 15 9-18 mmol/L Normal 12-16-[address] [facility] (68860) AST [Catalytic 54 14-40 U/L High 12-15-2018 [facility] activity/Vol] Clevel and (79332) Bilirubin [Mass/Vol] 0.5 0.2-1.3 mg/dL Normal 9 [facility] (01183) Calcium [Mass/Vol] 10.2 8.5-10.2 mg/dL Normal 12-15-2018 [facility] (86372) Chloride [Moles/Vol] 95 97-105 mmol/L Low 9 [facility] (21674) CO2 [Moles/Vol] 22 22-30 mmol/L Normal 12-15-2018 [facility] (77749) Creatinine [Mass/Vol] 3.10 0.73-1.22 mg/dL High 12-16-[address] [facility] (60424) eGFR- Amer. 24 Normal 12-15-2018 [facility] (20667) GFR/1.73 sq M predicted 20 . Normal 2018 [facility] among non-blacks MDRD [place] (79329) (S/P/Bld) [Vol rate/Area] Comment: Result Comment: eGFR (Estima pratik GFR) Units of measure: mL/min/1.73 meters squaredeGFR is derived from the reexpressed MDRD Study equation using the following parameters: serum creatinine, age, gender and race. The creatinine assay has been calibrated to be traceable to IDMS.An eGFR <60 mL/min/1.73m2 for >3 months is consistent with chronic kidney disease. Refer to KDOQI guidelines for clinical inte rpretation.In patients with unstable renal function, e.g. those with ac cowlitz kidney injury, the eGFR may not accurately reflect actual GFR. Glucose [Mass/Vol] 170 74-99 mg/dL High 12-15-2018 [facility] (10938) Comment: Result Comment: The [place] Diabetes Association (ADA) provides guidance for cutoff values for fastin g glucose and random glucose. The ADA defines fasting as no caloric intake for at least 8 hours. Fasting plasma glucose results between 100 to 125 m g/dL indicate increased risk for diabetes (prediabetes).Fasting plasma glucose results greater than or equal to 126 mg/dL meet the criteria for diagnosis of diabetes. In the absence of unequivocal hyperglycemia, r esults should be confirmed by repeat testing. In a patient with classic sympt oms of hyperglycemia or hyperglycemic crisis, random plasma glucose result s greater than or equal to 200 mg/dL meet the criteria for diagnosis of di abetes.Reference: Standards of Medical Care in Diabetes 2016, [place] Diab etes Association. Diabetes Care. 2016.39(Suppl 1). Potassium [Moles/Vol] 5.3 3.7-5.1 mmol/L High 12-16-[address] [facility] (95325) Protein [Mass/Vol] 7.4 6.3-8.0 g/dL Normal 12-15-2018 [facility] (37922) Sodium [Moles/Vol] 132 136-144 mmol/L Low 12-15-2018 [facility] (47852) Urea nitrogen [Mass/Vol] 32 9-24 mg/dL High 12-15 [facility] (47170) cnov on 2018-12-15 CNOV Normal 12-15-2018 [facility] (73972) cnpn on 2018-12-03 CNPN Normal 12-03-2018 [facility] (76358) progress on 2018-11 PROGRESS Normal 12-01-2018 [facility] (61590) PROGRESS Normal 12-01-2018 [facility] (88018) PROGRESS Normal 12-01-2018 [facility] (76997) PROGRESS Normal 12-01-2018 [facility] (96360) PROGRESS Normal 12-01-2018 [facility] (35127) cnptoutreach on 201 10-27-14 CNPTOUTREACH Normal 12-01-2018 [facility] (80764) phosphorus on 11-30 Phosphate [Mass/Vol] 2.9 2.7-4.8 mg/dL Normal 11-30- 9 [facility] (36852) Comment: Performed By: #### PHOS, CBC , MG1, BMP ####[facility] [address] [phone] magnesium on 2018-02 Magnesium [Mass/Vol] 1.7 1.7-2.3 mg/dL Normal 9 [facility] (81244) Comment: Performed By: #### PHOS, CBC , MG1, BMP ####[address] [place] [address] [phone] cnds on 2018-11-30 CNDS Normal 11-30-2018 [facility] (09849) cbc on 2018-11-30 Absolute nRBC <0.01 <0.01 Normal 11-30-2018 [facility] (46248) Comment: Performed By: #### PHOS, CBC , MG1, BMP ####[place] [address] [phone] Erythrocyte distribution 15.4 11.5-15.0 % High 11-30 [facility] width (RBC) [Ratio] [place] (36544) Comment: Performed By: #### PHOS, CBC , MG1, BMP ####[place] [address] [phone] Hematocrit (Bld) [Volume 25.4 39.0-51.0 % Low 11-30 [facility] fraction] (68799) Comment: Performed By: #### PHOS, CBC , MG1, BMP ####[address] [place] [place] [address] [phone] Hemoglobin (Bld) 8.4 13.0-17.0 g/dL Low 11-30-2018 [facility] [Mass/Vol] [place] (05020) Comment: Performed By: #### PHOS, CBC , MG1, BMP ####[address] [address] [phone] MCH (RBC) [Entitic mass] 32.2 26.0-34.0 pG Normal 11-30 [facility] (18679) Comment: Performed By: #### PHOS, CBC , MG1, BMP ####[place] [address] [phone] MCHC (RBC) [Mass/Vol] 33.1 30.5-36.0 g/dL Normal 12-01-[address] [facility] (69377) Comment: Performed By: #### PHOS, CBC , MG1, BMP ####[place] [address] [phone] MCV (RBC) [Entitic vol] 97.3 80.0-100.0 fL Normal 11-30 [facility] (97003) Comment: Performed By: #### PHOS, CBC , MG1, BMP ####[place] [address] [phone] Platelet mean volume 11.0 9.0-12.7 fL Normal 9 [facility] (Bld) [Entitic vol] [place] (46125) Comment: Performed By: #### PHOS, CBC , MG1, BMP ####[place] [address] [phone] Platelets (Bld) [#/Vol] 148 150-400 k/uL Low 2018 [facility] (59479) Comment: Performed By: #### PHOS, CBC , MG1, BMP ####[place] [address] [phone] RBC (Bld) [#/Vol] 2.61 4.20-6.00 m/uL Low 11-30-2018 [facility] (40827) Comment: Performed By: #### PHOS, CBC , MG1, BMP ####[place] [address] [phone] WBC (Bld) [#/Vol] 4.85 3.70-11.00 k/uL Normal 11-30-2018 [facility] (92203) Comment: Performed By: #### PHOS, CBC , MG1, BMP ####[place] [id number] [place] [address] [phone] case managem on 10-27-13 CASE MANAGEM Normal 11-30-2018 [facility] (38029) basic metabolic panl on 2018-11-30 Anion gap [Moles/Vol] 13 9-18 mmol/L Normal 12-01-19 [facility] (90223) Comment: Performed By: #### PHOS, CBC , MG1, BMP ####[place] [address] [address] [place] [address] [phone] Calcium [Mass/Vol] 8.7 8.5-10.2 mg/dL Normal 11-30-2018 [facility] (08186) Comment: Performed By: #### PHOS, CBC , MG1, BMP ####[facility] [place] [address] [phone] Chloride [Moles/Vol] 102 97-105 mmol/L Normal 9 [facility] (15684) Comment: Performed By: #### PHOS, CBC , MG1, BMP ####[facility] [address] [place] [address] [phone] CO2 [Moles/Vol] 24 22-30 mmol/L Normal 11-30-2018 [facility] (92575) Comment: Performed By: #### PHOS, CBC , MG1, BMP ####[facility] [address] [place] [address] [phone] Creatinine [Mass/Vol] 1.84 0.73-1.22 mg/dL High 12-01-[address] [facility] (76443) Comment: Performed By: #### PHOS, CBC , MG1, BMP ####[facility] [address] [phone] eGFR- Amer. 44 Normal 11-30-2018 [facility] (97220) Comment: Performed By: #### PHOS, CBC , MG1, BMP ####[facility] [place] [address] [phone] GFR/1.73 sq M predicted among 37 . Normal 11-30-2018 [facility] non-blacks MDRD (S/P/Bld) [Vol (29238) rate/Area] Comment: Result Comment: eGFR (Estima pratik GFR) Units of measure: mL/min/1.73 meters squaredeGFR is derived from the reexpressed MDRD Study equation using the following parameters: serum creatinine, age, gender and race. The creatinine assay has been calibrated to be traceable to IDMS.An eGFR <60 mL/min/1.73m2 for >3 months is consistent with chronic kidney disease. Refer to KDOQI guidelines for clinical inte rpretation.In patients with unstable renal function, e.g. those with ac cowlitz kidney injury, the eGFR may not accurately reflect actual GFR. Performed By: #### PHOS, CBC , MG1, BMP ####[facility] [place] [address] [phone] Glucose [Mass/Vol] 155 74-99 mg/dL High 11-30-2018 [facility] (09680) Comment: Result Comment: The [place] Diabetes Association (ADA) provides guidance for cutoff values for fastin g glucose and random glucose. The ADA defines fasting as no caloric intake for at least 8 hours. Fasting plasma glucose results between 100 to 125 m g/dL indicate increased risk for diabetes (prediabetes).Fasting plasma glucose results greater than or equal to 126 mg/dL meet the criteria for diagnosis of diabetes. In the absence of unequivocal hyperglycemia, r esults should be confirmed by repeat testing. In a patient with classic sympt oms of hyperglycemia or hyperglycemic crisis, random plasma glucose result s greater than or equal to 200 mg/dL meet the criteria for diagnosis of di abetes.Reference: Standards of Medical Care in Diabetes 2016, [place] Diab etes Association. Diabetes Care. 2016.39(Suppl 1). Performed By: #### PHOS, CBC , MG1, BMP ####[facility] [address] [place] [address] [phone] Potassium [Moles/Vol] 3.8 3.7-5.1 mmol/L Normal 12-01-19 [facility] (78497) Comment: Performed By: #### PHOS, CBC , MG1, BMP ####[facility] [address] [place] [address] [phone] Sodium [Moles/Vol] 139 136-144 mmol/L Normal 11-30-2018 [facility] (16961) Comment: Performed By: #### PHOS, CBC , MG1, BMP ####[facility] [place] [address] [phone] Urea nitrogen [Mass/Vol] 9 9-24 mg/dL Normal 11-30 [facility] (31008) Comment: Performed By: #### PHOS, CBC , MG1, BMP ####[facility] [place] [address] [phone] allied health on 05-12-13 ALLIED HEALTH Normal 11-30-2018 [facility] (20831) progress on 2018-11 PROGRESS Normal 11-29-2018 [facility] (09024) case managem on 201 10-27-12 CASE MANAGEM Normal 11-29-2018 [facility] (09445) progress on 2017-05 PROGRESS HNO ID: [id number]: Randell escalante 06-12-2017 Kristin Cintron: (none)Author Type: General PhysicianType: Progress NotesFiled: Medical 06/13/2017 5:51 PMNote Text:[facility]ENT [facility] CARDIAC HISTORYASHD - INCENDIARIES SUPERVISOR LAD, PCI Cx (85210) 1999PAD - PRACTICE BILLING ASSOCIATE 2017CarcinoidHTNHLDMOSA - BiPAPObesityCHF - diastolicCarotid diseaseADHERENCE TO GUIDELINESACE-I or ARB for HF with prior LVEF<40 (NQF 0081) - N/AASA or Plavix for ASHD (NQF 0067) - metBeta dante for ASHD with prior WA or prior LVEF<40 (NQF 0070) - metBeta dante for HF with prior LVEF<40 (NQ 0083) - N/AACE-I or ARB for ASHD with DM or prior LVEF<40 (NQ 0066) - needs to bestartedStatin therapy for ASHD or FHL or DM - metBMI documented and plan if >25 ([facility] 0421) - lifestyle recommendation formTobacco use screening and referral ([facility] 0028) - lifestyle recommendationformRecommendation for whole food, plant based diet - lifestyle recommendationformCLINICAL IMPRESSION/PLAN:Venkata Leal has had improvement in his volume overload. I've advisedhim to continue his current medication. Some of his shortness of breath islikely related to some ascites from his cirrhosis. There is nocontraindication to holding aspirin. Plavix is being used for possiblebenefit on his mesenteric ischemia. I will leave it up to gastroenterologyto continue or discontinue this.We will consider adding an KAYLA inhibitor in the future, but I do not wantto upset his tenuous hemodynamics at this time. There is no evidence ofcarcinoid heart disease. He likely has diastolic heart failure.I will see him in 3 months or as needed but will be in touch with himafter his biopsy. He will have labs done as scheduled.Written and verbal health teaching given to patient, patient verbalizesunderstanding and agrees with treatment plan.DIAGNOSIS FOR VISIT:[facility] CENTERISTORY OF PRESENT ILLNESSVenkata Leal returns for follow-up of his multiple cardiac issues. He'sundergone banding of multiple esophageal varices. He is being investigatedfor cirrhosis and will be having a liver biopsy in the near future.Overall his shortness of breath has improved and his edema has been betterwith the higher dose of Lasix.He's had no chest discomfort. He denies syncope, palpitations, TIAs,amaurosis and claudication.He is currently off aspirin and Plavix in anticipation of his liverbiopsy.ALLERGIES:ALLERGIESAllergen Reactions- Lipitor [Atorvastat* Intolerance myalgias- Zocor [Simvastatin] Intolerance myalgias- Novacain [Other] Intolerance Headache when it wears off- Lescol [Fluvastatin* Intolerance myalgiaCURRENT OUTPATIENT MEDICATIONS:furosemide (LASIX) 40 mg tablet Take 1 tablet by mouth twice daily.spironolactone (ALDACTONE) 25 mg tablet Take 1 tablet by mouth twicedaily.rosuvastatin (CRESTOR) 5 mg tablet Take 1 tablet by mouth once each week.gabapentin (NEURONTIN) 100 mg capsule Take 3 -6 capsules in the eveningdiphenoxylate-atropine (LOMOTIL) 2.5-0.025 mg per tablet Take 1 tablet bymouth four times daily as needed for up to 90 days.OCTREOTIDE ACETATE (SANDOSTATIN INJECTION) by INJECTION(UNSPECIFIEDPARENTERAL ROUTES) route once every month.CYANOCOBALAMIN, VITAMIN B-12, (B-12 COMPLIANCE INJECTION) byINJECTION(UNSPECIFIED PARENTERAL ROUTES) route once every month.insulin aspart protamine-insulin aspart (NovoLOG 70-30) 100 unit/mLflexpen Take 35 units before breakfast and 25 units before evening mealdicyclomine (BENTYL) 10 mg capsule TAKE 1 CAPSULE BY MOUTH BEFORE MEALSAND AT BEDTIME.levothyroxine (SYNTHROID) 150 mcg tablet Take 1 tablet by mouth oncedaily. Take on empty stomach. For thyroidMesalamine (PENTASA) 500 mg CR capsule Take 2 capsules by mouth four timesdaily.metoprolol tartrate, short acting, (LOPRESSOR) 100 mg tablet Take 0.5tablets by mouth twice daily.DULoxetine (CYMBALTA) 20 mg capsule Take 1 capsule by mouth once daily.finasteride (PROSCAR) 5 mg tablet Take 1 tablet by mouth once daily.tamsulosin ER (FLOMAX) 0.4 mg cp24 Take 1 capsule by mouth twice daily.CREON 24,000-76,000 -120,000 unit cpDR TAKE 2 CAPSULES BY MOUTH THREETIMES DAILY WITH MEALS.cholecalciferol, Vitamin D3, (VITAMIN D3) 50,000 unit cap capsule TAKE ONECAPSULE BY MOUTH TWICE A WEEKamLODIPine (NORVASC) 5 mg tablet Take 1 tablet by mouth once daily.colesevelam (WELCHOL) 625 mg tablet Take 3 tablets by mouth once daily.Primarily for postcholecystectomy syndrome so dose does not need increasedfamotidine (PEPCID) 40 mg tablet Take 1 tablet by mouth once daily.Cyanocobalamin 1,000 mcg subl Dissolve 1 tablet under the tongue oncedaily.BIPAP Mask refit (may try Airfit FFM F20 or mask per pt preference), headgear, chin strap, tubing, humidity, lifetime supplies. G 47.33 obstructivesleep apneaBIPAP Change the settings to BiPAP 30/23 cm H2O with BUR 10, suitable maskper pt preference, chin strap, head gear, humidity, tubing, lifetimesupplies. G47.33 Obstructive Sleep ApneaBIPAP 1 Device by MISCELLANEOUS route daily at bedtime. New machine, assettings must be 30/23 cm H2O with BUR of 10, Please have mask refittingalso, suitable mask per pt preference (may try Airfit F20), chin strap,head gear, humidity, tubing, lifetime supplies. G47.33 Obstructive SleepApnea Please fax 30 day download to [phone] sugar diagnostic (NexImmune VERIO) test strip Test blood sugar(s) 3times daily and as needed for symptoms of high or low sugars. Dx: Type 2DM - Uncontrolled E11.65 Insulin: YesHYDROcodone-acetaminophen (NORCO) 5-325 mg per tablet Take 1 tablet bymouth every 4 hours as needed for up to 20 days.Earliest Fill Date:03/13/17Insulin Mackay, Disposable, (TIESHA PEN NEEDLE) 32 gauge x ndle Useone needle for each dose. 2/day.clopidogrel (PLAVIX) 75 mg tablet Take 1 tablet by mouth once daily.COMPOUNDED PRESCRIPTION Lumbar support brace Dx: M48.06, M54.31, M51.26Lancets lancets Test blood sugar(s) 2 times daily. Dx: Type 2 DM -Uncontrolled E11.65 Insulin: YesLancing Device misc 1 Each twice daily. Dx: Type 2 DM - UrayuwxtclznO11.65 Insulin: Yesaspirin, enteric coated (ASPIRIN, ENTERIC COATED) 81 mg EC tablet Take 81mg by mouth once daily.BIPAP BIPAP 21/14 cmH2O w/ BUR 12 , suitable mask, tubing, humidifier,filters. Lifetime supplies. Dx: 327.23 - Obstructive sleep apnea.PHYSICAL EXAMINATION:VITAL SIGNS: BP 123/83 Pulse 65 Wt 223 lb 4.8 oz (101.3kg)Chest: Clear to percussion and auscultation. Trachea is midline. Airentry is equal. Cardiac: Regular rhythm. S1 and S2 are normal. PMI isnondisplaced. There is a 1/6 systolic ejection murmur. Carotids arebrisk without bruits. JVP is less than 10 cm. Abdomen: Soft andnontender. There are no pulsatile masses or bruits. No liverenlargement. Bowel sounds are active. Extremities: Trace edema. Pulsesare intact and symmetrical.Recent labs reviewed. Renal function is moderately impaired, but stable.This has not worsened with this intense diuretic therapy.Recent carotid examination shows no high-grade stenosis.Weight has come down about 10 pounds since diuretics were increased.Electronically Signed:Amanda Burrows 2017 9:07 [facility]: Kiana Maza MD cnov on 2017-06-12 CNOV Office Visit Normal 06-12-2017 Kristin (AGCARDWST) VENKATA LEAL samiaowen Owen ([id number]) 1950 M Date Time Provider Department06/12/17 8:30 AM RANDELL MANCILLA During your visit today, we recorded the following information about you: Pulse Blood pressure Weight Cente r 65/minute 123/83 101.3 kgKen ashley Mancilla MD 06/13/2017 5:51 PM SignedPERTINENT CARDIAC HISTORYASHD - ([id number]) INCENDIARIES SUPERVISOR LAD, PCI Cx 1999PAD - PT A 2017CarcinoidHTNHLDMOSA - BiPAPObesityCHF - diastolicCarotid diseaseADHERENCE TO GUIDELIN ESACE-I or ARB for HF with prior LVEFANDlt;40 (NQF 0081) - N/AASA or Plavix for ASHD (NQF 0067) - metBet a dante for ASHD with prior WA or prior LVEFANDlt;40 (NQF 0070) - metBeta dante for HF with prior LV EFANDlt;40 (NQF 0083) - N/AACE-I or ARB for ASHD with DM or prior LVEFANDlt;40 (NQ 0066) - ne eds to bestartedStatin therapy for ASHD or FHL or DM - metBMI documented and plan if ANDgt;25 ([facility] 0421) - lifestyle recommendation formTobacco use screening and referral ([facility] 0028) - lifestyle recommendation f ormRecommendation for whole food, plant based diet - lifestyle recommendation formCLINICAL IMPRESSION/PLAN :Venkata Leal has had improvement in his volume overload. I've advised him tocontinue his current medic ation. Some of his shortness of breath is likelyrelated to some ascites from his cirrhosis. There is no c ontraindication toholding aspirin. Plavix is being used for possible benefit on his mesentericischemia. I will leave it up to gastroenterology to continue or discontinuethis.We will consider adding an KAYLA inhib itor in the future, but I do not want toupset his tenuous hemodynamics at this time. There is no evide nce of carcinoidheart disease. He likely has diastolic heart failure.I will see him in 3 months or as ne eded but will be in touch with him after hisbiopsy. He will have labs done as scheduled.Written and verbal health teaching given to patient, patient verbalizesunderstanding and agrees with treatment plan.DIAGNOSI S FOR VISIT:[facility] CENTERISTORY OF PRESENT ILLNESSVenkata Leal returns for follow-up of his multiple ca rdiac issues. He'sundergone banding of multiple esophageal varices. He is being investigated forcirrho sis and will be having a liver biopsy in the near future.Overall his shortness of breath has impr shila and his edema has been better withthe higher dose of Lasix.He's had no chest discomfort. He denies syncope, palpitations, TIAs, amaurosisand claudication.He is currently off aspirin and Plavix in antici pation of his liver biopsy.ALLERGIES:ALLERGIESAllergen Reactions- Lipitor [Atorvastat* Intolerance maximus lgias- Zocor [Simvastatin] Intolerance myalgias- Novacain [Other] Intolerance Headache when it wears off- Lescol [Fluvastatin* Intolerance myalgiaCURRENT OUTPATIENT MEDICATIONS:furosemide (LASI X) 40 mg tablet Take 1 tablet by mouth twice daily.spironolactone (ALDACTONE) 25 mg tablet Take 1 tablet b y mouth twice daily.rosuvastatin (CRESTOR) 5 mg tablet Take 1 tablet by mouth once each week.gabapentin (NEURONTIN) 10 0 mg capsule Take 3 -6 capsules in the eveningdiphenoxylate-atropin e (LOMOTIL) 2.5-0.025 mg per tablet Take 1 tablet by mouthfour times daily as needed for up to 90 days.OCT REOTIDE ACETATE (SANDOSTATIN INJECTION) by INJECTION(UNSPECIFIED PARENTERALROUTES) route once every month.CYANOCOBALAMIN, VITAMIN B-12, (B-12 COMPLIANCE INJECTION) byINJECTION(UNSPECIFIED PARE NTERAL ROUTES) route once every month.insulin aspart protamine-insulin aspart (NovoLOG 70-30) 100 unit/mL flexpenTake 35 units before breakfast and 25 units before evening mealdicyclomine (BENTYL) 10 mg capsule TAKE 1 CAPSULE BY MOUTH BEFORE MEALS AND ATBEDTIME.levothyroxine (SYNTHROID) 150 mcg tablet T emy 1 tablet by mouth once daily.Take on empty stomach. For thyroidMesalamine (PENTASA) 500 mg CR capsule Take 2 capsules by mouth four timesdaily.metoprolol tartrate, short acting, (LOPRESSOR) 100 mg tablet Ta ke 0.5 tabletsby mouth twice daily.DULoxetine (CYMBALTA) 20 mg capsule Take 1 capsule by mouth once daily. finasteride (PROSCAR) 5 mg tablet Take 1 tablet by mouth once daily.tamsulosin ER (FLOMAX) 0.4 mg cp24 Take 1 capsule by mouth twice daily.CREON 24,000-76,000 -120,000 unit cpDR TAKE 2 CAPSULES BY MOUTH THREE TIMESDAILY WITH MEALS.cholecalciferol, Vitamin D3, (VITAMIN D3) 50,000 unit cap capsule TAKE ONECAPSULE BY MOUTH TWICE A WEEKamLODIPine (NORVASC) 5 mg tablet Take 1 tablet by mouth once daily.c olesevelam (WELCHOL) 625 mg tablet Take 3 tablets by mouth once daily.Primarily for postchol ecystectomy syndrome so dose does not need increasedfamotidine (PEPCID) 40 mg tablet Take 1 tablet by mout h once daily.Cyanocobalamin 1,000 mcg subl Dissolve 1 tablet under the tongue once daily.BIPAP Mask refit (may try Airfit FFM F20 or mask per pt preference), head gear,chin strap, tubing, humidity, lifetime s upplies. G 47.33 obstructive sleepapneaBIPAP Change the settings to BiPAP 30/23 cm H2O with BUR 10, angel itable mask perpt preference, chin strap, head gear, humidity, tubing, lifetime supplies.G47.33 Obs tructive Sleep ApneaBIPAP 1 Device by MISCELLANEOUS route daily at bedtime. New machine, assettings must be 30/23 cm H2O with BUR of 10, Please have mask refitting also,suitable mask per pt preference (may try Airfit F20), chin strap, head gear,humidity, tubing, lifetime supplies. G47.33 Obstructive Sleep Client Leader ea Please fax3 day download to [phone] sugar diagnostic (Embo MedicalUCH VERIO) test strip Test blood sugar(s) 3 timesdaily and as needed for symptoms of high or low sugars. Dx: Type 2 DM -Uncontrolled E11. 65 Insulin: YesHYDROcodone-acetaminophen (NORCO) 5- 325 mg per tablet Take 1 tablet by mouthevery 4 hours as needed for up to 20 days.Earliest Fill Date: 03/13/17Insulin Mackay, Disposable, (TIESHA PEN NEEDLE ) 32 gauge x 32ANDquot; ndle Useone needle for each dose. 2/day.clopidogrel (PLAVIX) 75 mg tablet Take 1 tablet by mouth once daily.COMPOUNDED PRESCRIPTION Lumbar support brace Dx: M48.06, M54.31, M51.26Lancet s lancets Test blood sugar(s) 2 times daily. Dx: Type 2 DM -Uncontrolled E11.65 Insulin: YesLancing D evice misc 1 Each twice daily. Dx: Type 2 DM - Uncontrolled E11.65Insulin: Yesaspirin, enteric coated ( ASPIRIN, ENTERIC COATED) 81 mg EC tablet Take 81 mg bymouth once daily.BIPAP BIPAP 21/14 cmH2O w/ BUR 12 , suitable mask, tubing, humidifier,filters. Lifetime supplies. Dx: 327.23 - Obstructive sleep apnea.PHYS ICAL EXAMINATION:VITAL SIGNS: BP 123/83 Pulse 65 Wt 223 lb 4.8 oz (101.3kg)Chest: Clear to per cussion and auscultation. Trachea is midline. Air entry isequal. Cardiac: Regular rhythm. S1 and S2 ar e normal. PMI is nondisplaced.There is a 1/6 systolic ejection murmur. Carotids are brisk without b ruits.JVP is less than 10 cm. Abdomen: Soft and nontender. There are no pulsatilemasses or bruits. N o liver enlargement. Bowel sounds are active.Extremities: Trace edema. Pulses are intact and symmetrical.R ecent labs reviewed. Renal function is moderately impaired, but stable. Thishas not worsened with th is intense diuretic therapy.Recent carotid examination shows no high-grade stenosis.Weight has come celia n about 10 pounds since diuretics were increased.Electronically Signed:Randell Mancilla MD June 12, 2017 9:07 [facility]: Jamila Price MD 06/12/2017 9:07 AM AddendumReferring Pr ovider: KIANA MAZA [[id number]]Allergies As of Date: 06/12/2017 Noted Allergy ReactionLIPITOR (RANULFO RVASTATIN CALCIUM) 01/31/2005 5 - Intolerance Comments: myalgiasZOCOR (SIMVASTATIN) 01/31/2005 5 - Intolerance Comments: myalgiasnovacain [Other] 01/31/2005 5 - Intolerance Comments: Headache when it w ears offLESCOL (FLUVASTATIN SODIUM) 09/09/2007 5 - Intolerance Comments: myalgiaDate Reviewed: 2017Reviewed by: Sadaf Llanes RN - Fully AssessedReason for Visit: Established Patient [175][facility] Visit Diagnosis:ASHD (arteriosclerotic heart disease) [I25.10] Other Visit Diagnosis:Chronic rao tolic CHF (congestive heart failure) ([facility]) [I50.32]Prescriptions as of 06/12/2017 Sig: FUROSEMIDE 4 0 MG TABLET Take 1 tablet by mouth twice * SPIRONOLACTONE 25 MG TABLET Take 1 tablet by mouth twice * ROSU VASTATIN 5 MG TABLET Take 1 tablet by mouth once e* GABAPENTIN 100 MG CAPSULE Take 3 -6 capsules in the ev e* DIPHENOXYLATE-ATROPINE 2.5 MG* Take 1 tablet by mouth four t* SANDOSTATIN INJECTION by INJECTION(UNSPE CIFIED PARE* B-12 COMPLIANCE INJECTION by INJECTION(UNSPECIFIED PARE* INSULIN ASPAR PROT-INSULIN * Take 35 units before breakfas* DICYCLOMINE 10 MG CAPSULE TAKE 1 CAPSULE BY MOUTH BEFOR* LEVOTHYROXINE 150 MCG TABLET Take 1 tablet by mouth once d* MESALAMINE CR 500 MG CAPSULE,* Take 2 capsules by mouth four* METO PROLOL TARTRATE 100 MG TA* Take 0.5 tablets by mouth twi* DULOXETINE 20 MG CAPSULE,JAVID* Take 1 capsule by mouth once * FINASTERIDE 5 MG TABLET Take 1 tablet by mouth once d* TAMSULOSIN 0.4 MG CAPSULE Ta ke 1 capsule by mouth twice* CREON 24,000-76,000-120,000 U* TAKE 2 CAPSULES BY MOUTH THRE* CHOLECALCIFER OL (VITAMIN D3) * TAKE ONE CAPSULE BY MOUTH TWI* AMLODIPINE 5 MG TABLET Take 1 tablet by mouth once d* CO LESEVELAM 625 MG TABLET Take 3 tablets by mouth once * FAMOTIDINE 40 MG TABLET Take 1 tablet by mout h once d* CYANOCOBALAMIN (VIT B-12) 1,0* Dissolve 1 tablet under the t* BIPAP Mask refit (may try Airfit F F* BIPAP Change the settings to BiPAP * BIPAP 1 Device by MISCELLANEOUS rou* BLOOD SUGAR DIAGNOSTIC STRIP S Test blood sugar(s) 3 times d* HYDROCODONE 5 MG- ACETAMINOPHE* Take 1 tablet by mouth every * PEN NEEDLE, DIABETIC 32 GAUGE* Use one needle for each dose.* CLOPIDOGREL 75 MG TABLET Take 1 tablet by mouth once d* COMPOUNDED PRESCRIPTION Lumbar support brace Dx: M48.* LANCETS Test blood sugar(s) 2 times d* LANCING DEVICE 1 Each twice daily. Dx: Type * ASPIRIN 81 MG TABLET,DELAYED * Take 81 mg by mouth once eduin* BIPAP BIPAP 21/14 cmH2O w/ BUR 12 ,*Medication notes this encounter CLOPIDOGREL 75 MG TABLET >> Sadaf davis RN, RN 06/12/2017 8:39 AM >> SADAF LLANES Candice Jun 12, 2017 8:39 AM Patient not taking at this t cary ASPIRIN 81 MG TABLET,DELAYED RELEASE >> Sadaf Llanes RN, RN 06/12/2017 8:38 AM >> SADAF BARTHOLOMEW Candice Jun 12, 2017 8:38 AM Patient not taking at this timeProblem List As Of Date 06/12/2017 N oted Resolved PERIPH VASCULAR DIS NOS [I73.9] INVALID FOR* Mixed hyperlipidemia [E78.2] INVAL ID FOR* Essential hypertension [I10] Esophageal reflux [K21.9] 06/06/2015 More... DISC DEGENERATION NO S [[id number]] INVALID FOR* SPINAL STENOSIS-LUMBAR [M48.061] INVALID FOR* SCIATICA [M54.30] INVALID FO R* Coronary atherosclerosis [I25.10] LUMBAR DISC DISPLACEMENT [M51.26] MYALGIA AND MYOSITIS NOS [IM O0001] INVALID FOR*06/06/2015 GASTRITIS ANTRAL( W/O Hemorrhage) [K29.60] INVALID FOR* DUODENITIS - NO HEMORRHAGE [K29.80] INVALID FOR* ESOPHAGITIS REFLUX [K21.0] INVALID FOR* ACUTE GASTRITIS W/O HEMORRHA GE [K29.00] INVALID FOR* Hypothyroidism [E03.9] INVALID FOR* LUMBAGO [M54.5] INVALID FOR* ENTHESOPATHY OF HIP [M76.899] INVALID FOR* TIA (transient ischemic attack) [G45.9] INVALID FOR* IBS (irritable bowel sy ndrome) [K58.9] INVALID FOR* Tinnitus, right [H93.11] INVALID FOR* Abdominal pain [R10.9] INVALID FOR* Pr eop exam for internal medicine [Z01.818] 06/06/2015 Mesenteric mass [K63.9] Malig christina lymph intra-abd [C 77.2] INVALID FOR* Cancer of ilium [C41.4] INVALID FOR* Carcinoid tumor [D3A.00] INVALID FOR* Abdomi nal wall bulge [R19.00] INVALID FOR* Diarrhea [R19.7] INVALID FOR* Malig christina lymph-intrathoracic [C77.1] INVALID FOR* Incisional hernia [K43.2] INVALID FOR* Anal fissure [K60.2] INVALID FOR* Fatigue [R53.83 ] INVALID FOR* More... Myalgia [M79.1] INVALID FOR* Cognitive impairment [R41.89] INVALID FOR* More.. . Urinary hesitancy [R39.11] INVALID FOR* More... 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] INVALID FOR* 016 Neuropathy (HCC) [G62.9] INVALID FOR* Testalgia [N50.819] INVALID FOR* BPH (benign prostatic hyperp lasia) [N40.0] INVALID FOR* Hypertrophy of prostate with urinary obstructio*INVALID FOR*08/17 Neuroendocrine malignancy (HCC) [C7A.8] INVALID FOR* Spermatocele [N43.40] INVALID FOR* Hydroc irma sac [N43.3] INVALID FOR* Impingement syndrome of right shoulder [M75.41] INVALID FOR* Incomplete tear of right rotator cuff [M75.111] INVALID FOR* Chronic right shoulder pain [M25.511, G89.29] INVALID FO R* Weakness of shoulder [R29.898] INVALID FOR* Carcinoid tumor determined by biopsy of small i*INVALID FO R* Type 2 diabetes mellitus with complication, wit*INVALID FOR* S/P coronary artery stent placement [Z95. 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 Images were obtained and stored in a permanent archive.HISTORY: Clinical Information/Indication:Portal vein thrombosis.RESULT: Image Findings/Analysis:Mild diffusely increased echogenicity of the liver; nonspecific, however likely due to fatty change.The portal and hepatic veins are patent without evidence of thrombus. The portal vein diameter measures 10.1 mm (NL = < 13mm). Hepatopedal flow is noted in the main portal vein, left portal vein with a maximum velocity of 36.8 cm/s, 11.6 cm/s respectively. Hepatopedal flow is identified in the right portal vein with maximum velocity of 14.4 cm/s and 26.7 cm/s in the anterior and posterior branches of the right portal veins respectively.The visualized portions of the right hepatic vein, middle hepatic vein and left hepatic vein are patent. The visualized portions of the IVC is patent. The visualized portions of the splenic vein is patent and has a peak systolic velocity of 32.5 cm/s in the region of the splenic hilum. The common hepatic artery, right and left hepatic artery has peak systolic velocity of 66.4 cm/s, 82.3 cm/s and 89.8 cm/s respectively. The celiac axis has a peak systolic velocity of 196 cm/s.Doppler demonstrates normal resistance hepatic artery blood flow.The right kidney measures 10.8 cm in length. No right hydronephrosis. Patient is status post cholecystectomy. The maximum diameter of the common bile duct is 3.9 mm.IMPRESSION:Mild diffusely increased echogenicity of the liver; nonspecific, however likely due to fatty change.No sonographic evidence of acute pathology.Chemist Instrumentation: MARTIN Transcribe Date/Time: Jun 11 2017 12:08PDictated by : TALIA CH MDThis examination was interpreted and the report reviewed and electronically signed by: TALIA CH MD on Jun 11 2017 12:18PM [id number] progress on 2017-04 PROGRESS HNO ID: [id number]: Randell Cowart ct 05-15-2017 Kristin Cintron: (none)Author Type: General PhysicianType: Progress NotesFiled: Medical 05/15/2017 5:26 PMNote Text:[facility] HISTORYASHD - INCENDIARIES SUPERVISOR LAD, PCI Cx 1999PAD - PRACTICE BILLING ASSOCIATE (53578) 2017CarcinoidHTNHLDMOSA - BiPAPObesityCHF - diastolicCarotid diseaseADHERENCE TO GUIDELINESACE-I or ARB for HF with prior LVEF<40 (NQF 0081) - N/AASA or Plavix for ASHD (NQF 0067) - metBeta dante for ASHD with prior WA or prior LVEF<40 (NQF 0070) - metBeta dante for HF with prior LVEF<40 (NQF 0083) - N/AACE-I or ARB for ASHD with DM or prior LVEF<40 (NQF 0066) - needs to bestartedStatin therapy for ASHD or FHL or DM - metBMI documented and plan if >25 (NQF 0421) - lifestyle recommendation formTobacco use screening and referral (NQF 0028) - lifestyle recommendationformRecommendation for whole food, plant based diet - lifestyle recommendationformCLINICAL IMPRESSION/PLAN:Venkata Leal has evidence of mild volume overload. He will increaseLasix back to 40 milligrams daily. Basic profile, BNP and chest x-ray willbe performed today.I'm concerned that his exercise tolerance may indicate progression of hiscoronary disease. If there is no significant improvement, imaging stresstest will be performed again. Stress echocardiogram was equivocal forischemia, on my review.We will consider adding KAYLA inhibitor in the future, given his ischemicheart disease. I've asked him to monitor his vital signs and give me areport next week.There is no evidence of infection. There is no clinical evidence that hehas developed carcinoid heart disease. Likely he has some diastolic heartfailure with exacerbation due to recent decrease in LasixHe'll undergo carotid Doppler examination for follow-up of his bruits.I will see him in one month or as needed.Written and verbal health teaching given to patient, patient verbalizesunderstanding and agrees with treatment plan.DIAGNOSIS FOR VISIT:CHFASHDHISTORY OF PRESENT ILLNESSVenkata Leal is a 67 -year-old gentleman with multiple cardiac issues,as noted above. He was previously followed by Dr. Winkler and Dr. Nunez.He is seen today at his request. He has had more abdominal distention,shortness of breath and a slightly productive cough .His Lasix was decreased one month ago. He has noted a 10 pound weight gainsince then. He's had mild edema but more abdominal bloating. He has notedoccasional wheezing. He's had a cough which has been productive of scantsputum. He's had no fevers or chills.He denies chest discomfort. He has noted exercise intolerance. He deniessyncope, palpitations, TIAs, amaurosis and claudication.ALLERGIES:ALLERGIESAllergen Reactions- Lipitor [Atorvastat* Intolerance myalgias- Zocor [Simvastatin] Intolerance myalgias- Novacain [Other] Intolerance Headache when it wears off- Lescol [Fluvastatin* Intolerance myalgiaCURRENT OUTPATIENT MEDICATIONS:rosuvastatin (CRESTOR) 5 mg tablet Take 1 tablet by mouth once each week.gabapentin (NEURONTIN) 100 mg capsule Take 3 -6 capsules in the eveningdiphenoxylate-atropine (LOMOTIL) 2.5-0.025 mg per tablet Take 1 tablet bymouth four times daily as needed for up to 90 days.OCTREOTIDE ACETATE (SANDOSTATIN INJECTION) by INJECTION(UNSPECIFIEDPARENTERAL ROUTES) route once every month.CYANOCOBALAMIN, VITAMIN B-12, (B-12 COMPLIANCE INJECTION) byINJECTION(UNSPECIFIED PARENTERAL ROUTES) route once every month.insulin aspart protamine-insulin aspart (NovoLOG 70-30) 100 unit/mLflexpen Take 35 units before breakfast and 25 units before evening mealdicyclomine (BENTYL) 10 mg capsule TAKE 1 CAPSULE BY MOUTH BEFORE MEALSAND AT BEDTIME.levothyroxine (SYNTHROID) 150 mcg tablet Take 1 tablet by mouth oncedaily. Take on empty stomach. For thyroidBIPAP Mask refit (may try Airfit FFM F20 or mask per pt preference), headgear, chin strap, tubing, humidity, lifetime supplies. G 47.33 obstructivesleep apneaBIPAP Change the settings to BiPAP 30/23 cm H2O with BUR 10, suitable maskper pt preference, chin strap, head gear, humidity, tubing, lifetimesupplies. G47.33 Obstructive Sleep ApneaBIPAP 1 Device by MISCELLANEOUS route daily at bedtime. New machine, assettings must be 30/23 cm H2O with BUR of 10, Please have mask refittingalso, suitable mask per pt preference (may try Airfit F20), chin strap,head gear, humidity, tubing, lifetime supplies. G47.33 Obstructive SleepApnea Please fax 30 day download to [phone] (PENTASA) 500 mg CR capsule Take 2 capsules by mouth four timesdaily.furosemide (LASIX) 40 mg tablet Take 0.5 tablets by mouth once daily.metoprolol tartrate, short acting, (LOPRESSOR) 100 mg tablet Take 0.5tablets by mouth twice daily.blood sugar diagnostic (NexImmune VERIO) test strip Test blood sugar(s) 3times daily and as needed for symptoms of high or low sugars. Dx: Type 2DM - Uncontrolled E11.65 Insulin: YesDULoxetine (CYMBALTA) 20 mg capsule Take 1 capsule by mouth once daily.finasteride (PROSCAR) 5 mg tablet Take 1 tablet by mouth once daily.tamsulosin ER (FLOMAX) 0.4 mg cp24 Take 1 capsule by mouth twice daily.CREON 24,000-76,000 -120,000 unit cpDR TAKE 2 CAPSULES BY MOUTH THREETIMES DAILY WITH MEALS.cholecalciferol, Vitamin D3, (VITAMIN D3) 50,000 unit cap capsule TAKE ONECAPSULE BY MOUTH TWICE A WEEKInsulin Mackay, Disposable, (TIESHA PEN NEEDLE) 32 gauge x 5/32 ndle Useone needle for each dose. 2/day.clopidogrel (PLAVIX) 75 mg tablet Take 1 tablet by mouth once daily.amLODIPine (NORVASC) 5 mg tablet Take 1 tablet by mouth once daily.colesevelam (WELCHOL) 625 mg tablet Take 3 tablets by mouth once daily.Primarily for postcholecystectomy syndrome so dose does not need increasedfamotidine (PEPCID) 40 mg tablet Take 1 tablet by mouth once daily.COMPOUNDED PRESCRIPTION Lumbar support brace Dx: M48.06, M54.31, M51.26Lancets lancets Test blood sugar(s) 2 times daily. Dx: Type 2 DM -Uncontrolled E11.65 Insulin: YesLancing Device misc 1 Each twice daily. Dx: Type 2 DM - XkjkzvreclgjN97.65 Insulin: Yesaspirin, enteric coated (ASPIRIN, ENTERIC COATED) 81 mg EC tablet Take 81mg by mouth once daily.Cyanocobalamin 1,000 mcg subl Dissolve 1 tablet under the tongue oncedaily.BIPAP BIPAP 21/14 cmH2O w/ BUR 12 , suitable mask, tubing, humidifier,filters. Lifetime supplies. 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- ALEXIS (obstructive sleep apnea) [facility]- Other and unspecified hyperlipidemia- PAD (peripheral artery disease) ([facility])- Preop exam for internal medicine- Sleep apnea bi-pap- Stroke (HCC) 2008 TIA-questionable diagnosis- Thyroid disorder hypoactive- Type 2 diabetes mellitus with complication (HCC) 08/18/2015- Unspecified essential hypertension- Vitamin B12 deficiency- Vitamin D deficiencyPAST SURGICAL HISTORYProcedure Laterality Date- APPENDECTOMY 1970- ARTHROS SHLDR DX W/WO SYNV BX Right 09/06/15 Right shoulder diagnostic arthroscopy- BALLN ANGIOPLASTY PERC,FEM-POP 1997- BALLN ANGIOPLASTY PERC,FEM-POP 09/24/06- CATHETER ART SYS-1ST ORD, ABDOM, PELVIC, OR LOWER 1997- CATHETER ART SYS-1ST ORD, ABDOM, PELVIC, OR LOWER 1997 with stent- CATHETER ART SYS-1ST ORD, ABDOM, PELVIC, OR LOWER 09/24/06- COLONOSCOP W/ OR W/O BRSH SPEC 05/30/2004 Colonoscopy- COLONOSCOP W/ OR W/O BRSH SPEC 05/18/14 Colonoscopy- EGD W/O BRSH SPECIMEN W/BX 9/7/07 Esophagiti,gastritis,duodenitis- EGD W/O OR W/BRUSH/WASH 10/26/1998 EGD- KNEE SCOPE,DIAGNOSTIC Right 2003 Arthroscopy, knee- LAP INC HERNIA REPAIR 09-29-12- LAPAROSCOPIC CHOLEYCYSTECTOMY Cholecystectomy, lap- PAST SURGICAL HISTORY OF 2006 stent placement Both legs- PAST SURGICAL HISTORY OF 12-08-10 small bowel resection [facility] main - cancerious- PAST SURGICAL HISTORY OF 06/19/2015 Left eye cataract surgery- PERCATAN, EXTREMITY ARTERY 09/24/06- REMOVAL OF TONSILS,<12 Y/O Tonsillectomy- REPAIR COMPL ROTATOR CUFF AVULSN,CHR Right 09/06/15 Subacromial decompression, rotator cuff repair, and labral debridement- REPAIR ING HERNIA,5+Y/O,REDUCIBL Hernia repair, inguinal ltFAMILY HISTORYProblem Relation Age of Onset- Heart Father [place]- Uterine cancer [Other] [OTHER] Mother- fibromyalgia [Other] [OTHER] Sister x 4- Diabetes Mother- Diabetes Sister oral meds- Hypertension FatherSocial History Marital status: Spouse name: Years of education: 15 Number of children: 3Occupational HistoryOccupation Employer Comment WILBERTSocial History Main Topics Smoking status: Former Smoker Packs/day: 0.50 Years: 30.00 Types: Cigarettes Quit date: 02/17/2006 Smokeless status: Never Used Alcohol use: No Drug use: No Sexual activity: Yes Partners with: FemaleREVIEW OF SYSTEMS: General: No chills, fever, weight loss, night sweats. Respiratory: No productive cough. Cardiac: As noted above. GI: Nomelena. : No dysuria. Musculoskeletal: No myalgias.PHYSICAL EXAMINATION: S/he is alert and in no distress.VITAL SIGNS: BP 128/72 Pulse 74 Ht 5' 9 (1.75m) Wt 228 lb 14.4 oz(103.8kg) BMI 33.79 kg/(m2).SHEENT: Skin is warm and dry. No xanthelasmas appreciated. Pharynx isbenign. There is no oral cyanosis. Neck: supple. No adenopathy orthyroid enlargement. Chest: Clear to percussion and auscultation. Thereis mild expiratory prolongation. No wheezing is heard. Trachea is midline. Air entry is equal. There is no chest wall tenderness. Cardiac: Regularrhythm. S1 and S2 are normal. PMI is nondisplaced. There is a 1/6systolic ejection murmur. There is no evidence of tricuspid insufficiencyor pulmonary insufficiency. No click is heard. Carotids are brisk withsoft bilateral bruits. JVP is less than 10 cm. Abdomen: Soft andnontender. There is no sacral edema. Obesity limits the examination thereis no definite ascites. There are no pulsatile masses or bruits. No liverenlargement. Bowel sounds are active. Extremities: Sherri edema. Pulsesare slightly diminished but symmetrical. No clubbing or cyanosis. Nofemoral bruits. Neurologic: Grossly normal motor and sensory. S/he isalert and oriented x4.EKG demonstrates sinus rhythm and is within normal limits.Prior records were reviewed. He is known to have mild carotid disease.Laboratory studies showed normal TSH. There is moderate renalinsufficiency, which is stable. His chromogranin A has increased slightly.Most recent echocardiogram was personally reviewed. There was no evidenceof ischemia by report, but apical four-chamber images are poor and somesuggest the possibility of mid LAD territory ischemiaElectronically Signed:Randell Mancilla [facility] 2017 12:01 [facility]:Kiana Maza MD cnov on 2017-05-15 CNOV Office Visit Normal 05-15-2017 Kristin (AGCARDWST) VENKATA LEAL ([id number]) 1950 M Date Time Provider Department05/15/17 11:30 AM RANDELL MANCILLA Medical During your visit today, we recorded the following information about you: Pulse Blood pressure Weight Cente r Height 74/minute 128/72 103. 8 kg 1.753 Miriam Mancilla MD 05/15/2017 5:26 PM SignedPERTINENT CARDIAC (00 000) HISTORYASHD - INCENDIARIES SUPERVISOR LAD, PCI C x 1998PAD - PRACTICE BILLING ASSOCIATE 2017CarcinoidHTNHLDMOSA - BiPAPObesityCHF - diastolicCarotid diseaseADHERENCE TO GUIDELIN ESACE-I or ARB for HF with prior LVEFANDlt;40 (NQF 0081) - N/AASA or Plavix for ASHD (NQF 0067) - metBet a dante for ASHD with prior [place] or prior LVEFANDlt;40 (NQF 0070) - metBeta dante for HF with prior LV EFANDlt;40 (NQF 0083) - N/AACE-I or ARB for ASHD with DM or prior LVEFANDlt;40 (NQF 0066) - ne eds to bestartedStatin therapy for ASHD or FHL or DM - metBMI documented and plan if ANDgt;25 (NQF 0421) - lifestyle recommendation formTobacco use screening and referral (NQF 0028) - lifestyle recommendation f ormRecommendation for whole food, plant based diet - lifestyle recommendation formCLINICAL IMPRESSION/PLAN :Venkata Leal has evidence of mild volume overload. He will increase Lasixback to 40 milligrams d aily. Basic profile, BNP and chest x-ray will beperformed today.I'm concerned that his exercise tolerance may indicate progression of hiscoronary disease. If there is no significant improvement, imaging stress testwill be performed again. Stress echocardiogram was equivocal for ischemia, onmy review.We alberto l consider adding KAYLA inhibitor in the future, given his ischemic heartdisease. I've asked him to monitor his vital signs and give me a report nextweek.There is no evidence of infection. There is no clinical evidence that he hasdeveloped carcinoid heart disease. Likely he has some diastolic heart failurewith exacerbation due to recent decrease in LasixHe'll undergo carotid Doppler examination for foll ow-up of his bruits.I will see him in one month or as needed.Written and verbal health teaching given to patient, patient verbalizesunderstanding and agrees with treatment plan.DIAGNOSIS FOR VISIT:CHF ASHDHISTORY OF PRESENT ILLNESSVenkata Leal is a 67 -year-old gentleman with multiple cardiac issues , asnoted above. He was previously followed by Dr. Winkler and Dr. Nunez. He isseen today at his reque st. He has had more abdominal distention, shortness ofbreath and a slightly productive cough .His Lasix was decreased one month ago. He has noted a 10 pound weight gainsince then. He's had mild edema but more abdominal bloating. He has notedoccasional wheezing. He's had a cough which has been productive of scant sputum. He's had no fevers or chills.He denies chest discomfort. He has noted exercise intolerance. He deniessyncope, palpitations, TIAs, amaurosis and claudication.ALLERGIES:ALLER GIESAllergen Reactions- Lipitor [Atorvastat* Intolerance myalgias- Zocor [Simvastatin] Intolerance my algias- Novacain [Other] Intolerance Headache when it wears off- Lescol [Fluvastatin* Intolerance my algiaCURRENT OUTPATIENT MEDICATIONS:rosuvastatin (CRESTOR) 5 mg tablet Take 1 tablet by mouth once each we ek.gabapentin (NEURONTIN) 100 mg capsule Take 3 -6 capsules in the eveningdiphenoxylate-atropin e (LOMOTIL) 2.5-0.025 mg per tablet Take 1 tablet by mouthfour times daily as needed for up to 90 days.OCT REOTIDE ACETATE (SANDOSTATIN INJECTION) by INJECTION(UNSPECIFIED PARENTERALROUTES) route once every month.CYANOCOBALAMIN, VITAMIN B-12, (B-12 COMPLIANCE INJECTION) byINJECTION(UNSPECIFIED PARE NTERAL ROUTES) route once every month.insulin aspart protamine-insulin aspart (NovoLOG 70-30) 100 unit/mL flexpenTake 35 units before breakfast and 25 units before evening mealdicyclomine (BENTYL) 10 mg capsule TAKE 1 CAPSULE BY MOUTH BEFORE MEALS AND ATBEDTIME.levothyroxine (SYNTHROID) 150 mcg tablet T emy 1 tablet by mouth once daily.Take on empty stomach. For thyroidBIPAP Mask refit (may try Airfit FFM F2 0 or mask per pt preference), head gear,chin strap, tubing, humidity, lifetime supplies. G 47.33 o bstructive sleepapneaBIPAP Change the settings to BiPAP 30/23 cm H2O with BUR 10, suitable mask perpt pref erence, chin strap, head gear, humidity, tubing, lifetime supplies.G47.33 Obstructive Sleep ApneaBIPAP 1 Device by MISCELLANEOUS route daily at bedtime. New machine, assettings must be 30/23 cm H2O with BU R of 10, Please have mask refitting also,suitable mask per pt preference (may try Airfit F20), chin strap, head gear,humidity, tubing, lifetime supplies. G47.33 Obstructive Sleep Apnea Please fax30 day downl oad to [phone] (PENTASA) 500 mg CR capsule Take 2 capsules by mouth four timesdaily.furose mide (LASIX) 40 mg tablet Take 0.5 tablets by mouth once daily.metoprolol tartrate, short acting, (LOP RESSOR) 100 mg tablet Take 0.5 tabletsby mouth twice daily.blood sugar diagnostic (NexImmune VERIO) test strip Test blood sugar(s) 3 timesdaily and as needed for symptoms of high or low sugars. Dx: Type 2 DM -Uncontrolled E11.65 Insulin: YesDULoxetine (CYMBALTA) 20 mg capsule Take 1 capsule by mouth once daily.finasteride (PROSCAR) 5 mg tablet Take 1 tablet by mouth once daily.tamsulosin ER (FLOMAX) 0.4 mg cp24 Take 1 capsule by mouth twice daily.CREON 24,000-76,000 -120,000 unit cpDR TAKE 2 CAPSULES BY MOUTH THREE TIMESDAILY WITH MEALS.cholecalciferol, Vitamin D3, (VITAMIN D3) 50,000 unit cap capsule TAKE ONECAPSULE BY MOUTH TWICE A WEEKInsulin Mackay, Disposable, (TIESHA PEN NEEDLE) 32 gauge x 5/32ANDqu ot; ndle Useone needle for each dose. 2/day.clopidogrel (PLAVIX) 75 mg tablet Take 1 tablet by mouth once daily.amLODIPine (NORVASC) 5 mg tablet Take 1 tablet by mouth once daily.colesevelam (WELCHOL) 625 mg tablet Take 3 tablets by mouth once daily.Primarily for postcholecystectomy syndrome so dose does not need increasedfamotidine (PEPCID) 40 mg tablet Take 1 tablet by mouth once daily.C OMPOUNDED PRESCRIPTION Lumbar support brace Dx: M48.06, M54.31, M51.26Lancets lancets Test blood sugar(s) 2 times daily. Dx: Type 2 DM -Uncontrolled E11.65 Insulin: YesLancing Device misc 1 Each twice daily. Dx: Type 2 DM - Uncontrolled E11.65Insulin: Yesaspirin, enteric coated (ASPIRIN, ENTERIC COATED) 81 mg EC tab let Take 81 mg bymouth once daily.Cyanocobalamin 1,000 mcg subl Dissolve 1 tablet under the tongue once daily.BIPAP BIPAP 21/14 cmH2O w/ BUR 12 , suitable mask, tubing, humidifier,filters. Lifetime supplies. Dx: 327.23 - Obstructive sleep apnea.HYDROcodone-acetaminophen (NORCO) 5-325 mg per tablet Take 1 tablet by mouthevery 4 hours as needed for up to 20 days.Earliest Fill Date: 03/13/17PA MEDICAL MI STORYDiagnosis Date- Cancer (HCC) intestines and chest, but in remission as of 12-22-14- Coronary atheros clerosis of unspecified type of vessel, gakona or graft PCI - 1998- Diabetes (HCC)- Diarrhea- Displacemen t of lumbar 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thy- Esophageal reflux- Hypothyroidism- Internal hem orrhoids without mention of complication- Irritable bowel syndrome- Lipoma of other specified sites- Mesen teric mass carcinoid- ALEXIS (obstructive sleep apnea) [facility]- Other and unspecified hyperlipidem ia- PAD (peripheral artery disease) ([facility])- Preop exam for internal medicine- Sleep apnea bi-pap- Stroke ( [facility]) 2008 TIA-questionable diagnosis- Thyroid disorder hypoactive- Type 2 diabetes mellitus with compl ication ([facility]) 08/18/2015- Unspecified essential hypertension- Vitamin B12 deficiency- Vitamin D defici encyPAST SURGICAL HISTORYProcedure Laterality Date- APPENDECTOMY 1970- ARTHROS SHLDR DX W/WO SYNV B X Right 09/06/15 Right shoulder diagnostic arthroscopy- BALLN ANGIOPLASTY PERC,FEM-POP 1997- BALLN ANG IOPLASTY PERC,FEM-POP 09/24/06- CATHETER ART SYS-1ST ORD, ABDOM, PELVIC, OR LOWER 1997- CATHETER ART SYS -1ST ORD, ABDOM, PELVIC, OR LOWER 1997 with stent- CATHETER ART SYS-1ST ORD, ABDOM, PELVIC, OR LOWER - COLONOSCOP W/ OR W/O BRSH SPEC 05/30/2004 Colonoscopy- COLONOSCOP W/ OR W/O BRS SPEC 05/18/14 Colonos copy- [facility]BX 10/24/06 Esophagiti,gastritis,duodenitis- EGD W/O OR W/BRUSH/WASH 10/26/1998 EGD- KNEE SCOPE,DIAGNOSTIC Right 2003 Arthroscopy, knee- LAP INC HERNIA REPAIR 09-29-12- LAPAROSCOPIC CHOLEYCYSTECTOMY 08 Cholecystectomy, lap- PAST SURGICAL HISTORY OF 2006 stent placement Both legs- P AST SURGICAL HISTORY OF 12-08-10 small bowel resection [facility] main - cancerious- PAST SURGICAL HISTORY OF 06/18 Left eye cataract surgery- PERCATAN, EXTREMITY ARTERY 09/24/06- REMOVAL OF TONSILS,ANDlt;11 Y/O Tons illectomy- REPAIR COMPL ROTATOR CUFF AVULSN,CHR Right 09/06/15 Subacromial decompression, rotator cuff repair, and labral debridement- REPAIR ING HERNIA,5+Y/O,REDUCIBL Hernia repair, inguinal ltFAMILY HI STORYProblem Relation Age of Onset- Heart Father [place]- Uterine cancer [Other] [OTHER] Mother- fibromyalgia [Other] [OTHER] Sister x 4- Diabetes Mother- Diabetes Sister oral meds- Hypertension FatherSocial Hi story Marital status: Spouse name: Years of education: 15 Number of children: 3Occupational Hist oryOccupation Employer Comment WILBERTSocial History Main Topics Smoking status: Former Smoker Packs/ day: 0.50 Years: 30.00 Types: Cigarettes Quit date: 02/17/2006 Smokeless status: Never Used Alcohol u se: No Drug use: No Sexual activity: Yes Partners with: FemaleREVIEW OF SYSTEMS: General: No chills, fever, weight loss, night sweats.Respiratory: No productive cough. Cardiac: As noted above. GI: No melen a.: No dysuria. Musculoskeletal: No myalgias.PHYSICAL EXAMINATION: S/he is alert and in no distress.VIT AL SIGNS: BP 128/72 Pulse 74 Ht 5' 9ANDquot; (1.75m) Wt 228 lb 14.4 oz(103.8kg) BMI 33.79 kg/( m2).SHEENT: Skin is warm and dry. No xanthelasmas appreciated. Pharynx isbenign. There is no oral c yanosis. Neck: supple. No adenopathy or thyroidenlargement. Chest: Clear to percussion and auscultation. There is mildexpiratory prolongation. No wheezing is heard. Trachea is midline. Air entryis equal. There is no chest wall tenderness. Cardiac: Regular rhythm. S1 andS2 are normal. PMI is nondisplaced. There is a 1/6 systolic ejection murmur.There is no evidence of tricuspid insufficiency or pulmonary i nsufficiency. Noclick is heard. Carotids are brisk with soft bilateral bruits. JVP is lessthan 10 c m. Abdomen: Soft and nontender. There is no sacral edema. Obesitylimits the examination there is no defi nite ascites. There are no pulsatilemasses or bruits. No liver enlargement. Bowel sounds are active.Extr emities: Sherri edema. Pulses are slightly diminished but symmetrical. Noclubbing or cyanosis. No f emoral bruits. Neurologic: Grossly normal motor andsensory. S/he is alert and oriented x4.EKG demonstrates sinus rhythm and is within normal limits.Prior records were reviewed. He is known to have mild carotid d isease.Laboratory studies showed normal TSH. There is moderate renal insufficiency,which is stabl e. His chromogranin A has increased slightly.Most recent echocardiogram was personally reviewed. There w as no evidence ofischemia by report, but apical four-chamber images are poor and some suggestthe possibil ity of mid LAD territory ischemiaElectronically Signed:Randell Mancilla [facility] 2017 12:01 [facility]: Jamila Price MD 05/15/2017 12:02 PM SignedIncrease furosemide to 40 mg dailyWei gh daily and report back to us on FridayLIFESTYLE CHANGEA healthy lifestyle is the most important compon ent of your overall treatmentplan. Please give serious thought to the following areas and commit t o makinglong term changes.EAT A WHOLE FOOD, PLANT BASED DIETThe nutrition your body gets is more impor tant than the medicine you take.What matters most is the overall way you eat. We encourage you to minimize theuse of animal products (which include dairy and all meats except fatty fish)and use whole, unproces sed plant foods to provide your protein, vitamins andother nutrients. We have a lot of information to los caban with you on this topic. We also hold Shared Medical Appointments, where you can come visit with Dr.Shafe reed in the company of other patients and spend over an hour talking aboutthe challenges of changing the w ay you eat. This is not a ANDquot;dietANDquot;.It is a way of life that you will keep with you.EXERCISE REGULARLYIt is not important to spend hours in the gym, lifting weights and perspiringheavily. A total o f 2-3 hours per week of aerobic (causing you to bemoderately short of breath) exercise is sufficient to im prove your health.Talk to us before you begin a new exercise program, if you have heart diseaseor experie nce shortness of breath or chest pain.REDUCE STRESSChronic emotional and physical stress leads to dis ease. Ways of reducingstress include meditation, visualization, prayer, yoga and other forms ofrelaxation therapy. Consistency is the harman. Find a technique that works foryou and do it every day.CULTIVATE RELAT IONSHIPSLoneliness and isolation have a major negative impact on health. Seek outothers who can love, care for and nurture you. Avoid hurtful relationships.MAINTAIN IDEAL BODY WEIGHTThe best way to do thi s is to do all the things above. Our bodies naturallyfind the right weight if we keep moving and feed ours elves the right food. Ifyour BMI is greater than 25, we strongly recommend a referral to a weightmanageme nt program. Please speak to us or your family physician aboutavailable programs.AVOID NICOTINE IN A LL FORMSThis includes all tobacco products, whether chewed, smoked, vaped, or rubbed onthe skin. Smoking c essation programs, which can make use of tobaccosubstitutes, medications to suppress cravings and behavi or management, areavailable. Please contact your family physician about programs in your area.Referr ing Provider: RANDELL MANCILLA [[id number]]Allergies As of Date: 05/15/2017 Noted Allergy ReactionLIPITOR (RANULFO RVASTATIN CALCIUM) 01/31/2005 5 - Intolerance Comments: myalgiasZOCOR (SIMVASTATIN) 01/31/2005 5 - Intolerance Comments: myalgiasnovacain [Other] 01/31/2005 5 - Intolerance Comments: Headache when it w ears offLESCOL (FLUVASTATIN SODIUM) 09/09/2007 5 - Intolerance Comments: myalgiaDate Reviewed: 2017Reviewed by: Jennifer Omalley - Fully AssessedReason for Visit: Follow Up [171]Primary Visit Diagno sis:ASHD (arteriosclerotic heart disease) [I25.10] Other Visit Diagnoses:Chronic diastolic CHF (congestive heart failure) ([facility]) [I50.32] Dizziness and giddiness [R42]Order(s):ECG B/O W INTE RP (MED OFFICE) [ECG06] Order #: [id number] NT PRO BNP [SQNTBNP] Order #: [id number] FUTURE BASIC META BOLIC PNL [SQBMP] Order #: [id number] FUTURE MAGNESIUM BLD [SQMG1] Order #: [id number] FUTURE furosemide (LASIX) 40 mg tabletTake 1 tablet by mouth once daily.Disp: 90 tabletRfl: 3 XR CHEST 2V FRONTAL/LAT [819 2902] Order #: [id number] FUTURE US CAROTID ARTERIES [facility] [[id number]] Order #: [id number] FUTUREPr escriptions as of 05/15/2017 Sig: FUROSEMIDE 40 MG TABLET Take 1 tablet by mouth once d* ROSUVASTATIN 5 MG TABLET Take 1 tablet by mouth once e* GABAPENTIN 100 MG CAPSULE Take 3 -6 capsules in the josh* DIPHENO XYLATE-ATROPINE 2.5 MG* Take 1 tablet by mouth four t* SANDOSTATIN INJECTION by INJECTION(UNSPECIFIED PAR E* B-12 COMPLIANCE INJECTION by INJECTION(UNSPECIFIED PARE* INSULIN ASPAR PROT-INSULIN * Take 35 uni ts before breakfas* DICYCLOMINE 10 MG CAPSULE TAKE 1 CAPSULE BY MOUTH BEFOR* LEVOTHYROXINE 150 MCG TABLET Take 1 tablet by mouth once d* BIPAP Mask refit (may try Airfit FF* BIPAP Change the settings to BiPAP * BIPAP 1 Device by MISCELLANEOUS rou* MESALAMINE CR 500 MG CAPSULE,* Take 2 capsules by mouth four* METO PROLOL TARTRATE 100 MG TA* Take 0.5 tablets by mouth twi* BLOOD SUGAR DIAGNOSTIC STRIPS Test blood sugar(s) 3 times d* DULOXETINE 20 MG CAPSULE,JAVID* Take 1 capsule by mouth once * FINASTERIDE 5 MG TABL ET Take 1 tablet by mouth once d* TAMSULOSIN 0.4 MG CAPSULE Take 1 capsule by mouth twice* CREON 24,000-76 ,000-120,000 U* TAKE 2 CAPSULES BY MOUTH THRE* CHOLECALCIFEROL (VITAMIN D3) * TAKE ONE CAPSULE BY MOUTH TW I* PEN NEEDLE, DIABETIC 32 GAUGE* Use one needle for each dose.* CLOPIDOGREL 75 MG TABLET Take 1 tablet b y mouth once d* AMLODIPINE 5 MG TABLET Take 1 tablet by mouth once d* COLESEVELAM 625 MG TABLET Ta ke 3 tablets by mouth once * FAMOTIDINE 40 MG TABLET Take 1 tablet by mouth once d* COMPOUNDED PRESCRIPT ION Lumbar support brace Dx: M48.* LANCETS Test blood sugar(s) 2 times d* LANCING DEVICE 1 Each twice daily. Dx: Type * ASPIRIN 81 MG TABLET,DELAYED * Take 81 mg by mouth once eduin* CYANOCOBALAMIN (VIT B- 12) 1,0* Dissolve 1 tablet under the t* BIPAP BIPAP 21/14 cmH2O w/ BUR 12 ,* HYDROCODONE 5 MG-ACETAMINOPH E* Take 1 tablet by mouth every *Problem List As Of Date 05/15/2017 Noted Resolved PERIPH VASCULAR DIS NOS [I73.9] INVALID FOR* Mixed hyperlipidemia [E78.2] INVALID FOR* Essential hypertension [I10] Esophagea l reflux [K21.9] 06/06/2015 More... DISC DEGENERATION NOS [HXM0561] INVALID FOR* SPINAL STENOSIS-LUMBAR [M48.061] INVALID FOR* SCIATICA [M54.30] INVALID FOR* Coronary atherosclerosis [I25.10] LUM BAR DISC DISPLACEMENT [M51.26] MYALGIA AND MYOSITIS NOS [HSP0305] INVALID FOR*06/06/2015 GASTRITIS ANT RAL( W/O Hemorrhage) [K29.60] INVALID FOR* DUODENITIS - NO HEMORRHAGE [K29.80] INVALID FOR* ESOPHA GITIS REFLUX [K21.0] INVALID FOR* ACUTE GASTRITIS W/O HEMORRHAGE [K29.00] INVALID FOR* Hypothyroidism [E03.9] INVALID FOR* LUMBAGO [M54.5] INVALID FOR* ENTHESOPATHY OF HIP [M76.899] INVALID FOR* TIA ( transient ischemic attack) [G45.9] INVALID FOR* IBS (irritable bowel syndrome) [K58.9] INVALID FO R* Tinnitus, right [H93.11] INVALID FOR* Abdominal pain [R10.9] INVALID FOR* Preop exam for internal medi cine [Z01.818] 06/06/2015 Mesenteric mass [K63.9] Malig christina lymph intra-abd [C77.2] INVALID FOR* Cancer of ilium [C41.4] INVALID FOR* 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 Myalgia [M79.1] INVALID FOR* Cognitive impairment [R41.89] INVALID FOR* More... Urinary hesitancy [R39.11] I NVALID FOR* More... 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] INVALID FOR*08/18/2015 Neuropathy (HCC) [G62.9] INV ALID FOR* Testalgia [N50.819] INVALID FOR* BPH (benign prostatic hyperplasia) [N40.0] INVALID FOR* Hypertr ophy of prostate with urinary obstructio*INVALID FOR*08/18/2015 Neuroendocrine malignancy ([facility]) [C7A.8] INVALID FOR* Spermatocele [N43.40] INVALID FOR* Hydrocele sac [N43.3] INVALID FOR* Impinge ment syndrome of right shoulder [M75.41] INVALID FOR* Incomplete tear of right rotator cuff [M75.111] INVALID FOR* Chronic right shoulder pain [M25.511, G89.29] INVALID FOR* Weakness of shoulder [R29.89 8] INVALID FOR* Carcinoid tumor determined by biopsy of small i*INVALID FOR* Type 2 diabetes mellitus wit h complication, wit*INVALID FOR* S/P coronary artery stent placement [Z95.5] INVALID FOR* Family history of ischemic heart disease [Z82.4*INVALID FOR* Obesity (BMI 30-39.9) [E66.9] INVALID FOR* Diastolic heart failure (HCC) [I50.30] INVALID FOR* Renal insufficiency [N28.9] INVALID FOR* Arteriosclerosis, mesenteric artery (HCC) [K55.*INVALID FOR* Crohn's disease of small intestine without comp*INVALID FOR* 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 Please give serious thought to the following areas and comm it to making assistant terminal manager changes. EAT A WHOLE FOOD, PLANT BASED DIET The nutrition your body gets is more important than the medicine you take. What matters most is the overall way you eat. We encourage yo u to minimize the use of animal products (which include dairy and all meats except fatty fish) and use w hole, unprocessed plant foods to provide your protein, vitamins and other nutrients. We have a lot of information to share with you on this topic. We also hold Shared Medical Appointments, where you can come visit with Dr. Mancilla in the company of other patients and spend over an hour talking about the chall enges of changing the way you eat. This is not a diet. It is a way of life that you will keep with you. EXERCISE REGULARLY It is not important to spend hours in the gym, lifting weights and perspiring heavi ly. A total of 2-3 hours per week of aerobic (causing you to be moderately short of breath) exercise is sufficient to improve your health. Talk to us before you begin a new exercise program, if you hav e heart disease or experience shortness of breath or chest pain. REDUCE STRESS Chronic emotional and physical stress leads to disease. Ways of reducing stress include meditation, visualization, p rayer, yoga and other forms of relaxation therapy. Consistency is the harman. Find a technique that works for you and do it every day. CULTIVATE RELATIONSHIPS Loneliness and isolation have a major negative impact on health. Seek out others who can love, care for and nurture you. Avoid hurtful relationships. MAINT AIN IDEAL BODY WEIGHT The best way to do this is to do all the things above. Our bodies naturally find th e right weight if we keep moving and feed ourselves the right food. If your BMI is greater than 25, we s trongly recommend a referral to a weight management program. Please speak to us or your family physician about available programs. AVOID NICOTINE IN ALL FORMS This includes all tobacco products, whether ch ewed, smoked, vaped, or rubbed on the skin. Smoking cessation programs, which can make use of tobacco subs titutes, medications to suppress cravings and behavior management, are available. Please contact yo family physician about programs in your area.Prescriptions ordered this encounter Disp Refills Start End FUROSEMIDE 40 MG TABLET 90 t* 3 05/15/2017 Class: Med Update Route: ORAL Sig: Take 1 tablet by mouth once daily.Medications Discontinued During This Encounter furosemide (LASIX) 40 mg tablet 90 t* 3 03/19/19 18 05/15/2017 Class: Med Update Route: ORAL Sig: Take 0.5 tablets by mouth once daily. Disc: Reason for discontinue is not on file. Status:Closed by RANDELL MANCILLA MD on 05/15/17 Vital Signs Vital Sign Description Value / Unit Date Location The following section is limited to 5 en tries per type and includes entries from the following time range: [id number] - 9. Body Temperature 98.6 [degF] 10-27-2019 [facility] ([id number]) Body Temperature 97.7 [degF] 10-26-2019 [facility] ([id number]) Body Temperature 97.11 [degF] 09-29-2019 [facility] ([id number]) Body temperature 98.6 [degF] 04-27-2019 [facility] ([id number]) Body temperature 98.6 [degF] 04-27-2019 [facility] ([id number]) Body weight 98.43 kg 11-05-2019 [facility] ([id number]) Body weight 96.62 kg 10-27-2019 [facility] ([id number]) Body weight 97.07 kg 10-26-2019 [facility] ([id number]) Body weight 97.98 kg 09-29-2019 [facility] ([id number]) BP Diastolic 68 mm[Hg] 11-05-2019 [facility] ([id number]) BP Diastolic 66 mm[Hg] 10-27-2019 [facility] ([id number]) BP Diastolic 63 mm[Hg] 10-26-2019 [facility] ([id number]) BP Diastolic 63 mm[Hg] 09-29-2019 [facility] ([id number]) BP Systolic 122 mm[Hg] 11-05-2019 [facility] ([id number]) BP Systolic 140 mm[Hg] 10-27-2019 [facility] ([id number]) BP Systolic 114 mm[Hg] 10-26-2019 [facility] ([id number]) BP Systolic 123 mm[Hg] 09-29-2019 [facility] (84776) Height 177.8 cm 10-26-2019 [facility] ([id number]) Pulse (Heart Rate) 68 /min 11-05-2019 [facility] ([id number]) Pulse (Heart Rate) 84 /min 10-27-2019 [facility] ([id number]) Pulse (Heart Rate) 59 /min 10-26-2019 [facility] ([id number]) Pulse (Heart Rate) 70 /min [id number]ulse Oximetry 100 % 11-05-2019 [facility] ([id number]) Pulse Oximetry 97 % 10-26-2019 [facility] ([id number]) Respiratory Rate 16 /min 11-05-2019 [facility] ([id number]) Encounters Date Type Reason Provider Location 09-11-2017 Ambulatory RANDELL MANCILLA Facility[facility] 06-12-2017 - Ambulatory RANDELL MANCILLA [facility] 06-12-2017 [facility] er RANDELL MANCILLA ([id number]) [facility] 06-11-2017 Ambulatory [facility] ([id number] ) 05-15-2017 - Ambulatory Atherosclerotic heart RANDELL MANCILLA Ms francesco [facility] 05-15-2017 disease of gak[place] RANDELL MANCILLA [facility] coronary artery RANDELL MANCILLA ([id number]) without angina RANDELL MANCILLA [facility] - E-mail encounter Sadaf (Kyleigh) [facility] 10-11-2019 from carer Selena 10-26-2019 - Orders Only Crohn's disease of Delbert Teixeira Rosalindec tracie 10-26-2019 small intestine [facility] Comment: Crohn's disease of small int estine with complication (HCC) (Primary Dx); Crohn's disease of both smal l and large intestine with other complication (HCC) 11-23-2019 - Patient encounter External [facility] 11-23-2019 procedure Provider 11-22-2019 - Patient encounter BILL [facility] 11-22-2019 procedure REMOTE 11-05-2019 - Patient encounter Type 2 diabetes [facility] 11-05-2019 procedure mellitus [facility] Comment: Controlled type 2 diabetes m bam with diabetic polyneuropathy, with long-term current use of insulin (HCC) (Primary Dx); Mixed hyperlipidemia; Essential hypertension; Crohn's disease of small int estine with intestinal obstruction (HCC); Stage 3 chronic kidney disea se (HCC); Other spondylosis with radic ulopathy, lumbar region; Elevated liver enzymes; Vitamin B12 deficiency; Need for vaccination 10-28-2019 - [facility] 10-27-2019 - Patient encounter Carcinoid tumor Treatment Rm 5 Hemat ology/[place] 10-27-2019 procedure Dangelo [facility] Wstr gy Comment: Carcinoid tumor, unspecified site, unspecified whether malignant (Primary Dx); Vitamin B12 deficiency; Iron deficiency anemia, unsp ecified iron deficiency anemia type; Iron malabsorption; Crohn's disease of small int estine with other complication (HCC); Stage 3 chronic kidney disea se (HCC) 10-25-2019 - Patient encounter 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) Internal M edicine 10-25-2019 procedure Bert Salas Comment: RE: Medication Question (Not Renewal) 10-21-2019 - Patient encounter Abdominal pain Analisa Gar[facility] Internal Medicine 10-21-2019 procedure [place] Comment: RE: [facility] 10-[facility] - Patient encounter Crohn's disease Delbert Teixeira Rosalind ectal Surgery 10-16-2019 procedure of small intestine Comment: RE: [facility] 10-11-2019 Patient encounter Obstructive sleep Sadaf (Driver/Sales Workers) Ronnie rology procedure apnea syndrome [place] Comment: oxygen 09-30-2019 - Patient encounter Lumbar radiculopathy [facility] [place] 09-30-2019 procedure Aniket Nigel Mark Comment: Radiculopathy, lumbar region (Primary Dx) RE: Medication Question (Not Renewal) 09-29-2019 - Patient encounter Crohn's disease Missybritton Morgan Hematol ogy/Oncology 09-29-2019 procedure of small intestine Comment: Crohn's disease of small int estine with other complication (HCC) (Primary Dx); Stage 3 chronic kidney disea se (HCC); Vitamin B12 deficiency; Crohn's disease of small int estine with intestinal obstruction (HCC); Abnormal results of liver fu nction studies; Carcinoid tumor, unspecified site, unspecified whether malignant 11-23-2019 - 11-23-2019 Refill Abdominal pain Analisa Garvey In ternal Medicine [place] Comment: Refill Request 11-20-2019 - 11-20-2019 Refill Sadaf Dominguez Neurology Comment: Refill Request 11-05-2019 - 11-05-2019 Refill [facility] Cardiology Comment: Refill Request 11-23-2019 Results Only External Provider External-N [facility] 10-28-2019 Results Only [facility] 09-30-2019 - 09-30-2019 Telemedicine consultation Jaimie joya Marcial [facility] with patient 11-24-2019 - 11-24-2019 Telephone encounter Loyd colbert Gastroenterology Comment: Results 11-17-2019 - 11-17-2019 Telephone encounter Sadaf Walters ( Cnp) Neurology Comment: Overnight pulse oximetry 11-16-2019 - 11-16-2019 Telephone encounter Loyd colbert Gastroenterology Comment: Appointment Confirmation 11-01-2019 - Telephone Radiculopathy due to [facility] 11-01-2019 encounter lumbar intervertebral Aniket disc disorder Comment: Patient Update; Schedule Inj ection 10-29-2019 - 10-29-2019 Telephone encounter Analisa keita Internal Medicine [place] Comment: Results 09-22-2019 - 09-22-2019 Telephone encounter Sadaf Walters ( Cnp) Neurology Comment: E-scribing 09-02-2019 - 09-02-2019 Telephone encounter Idris Mora Hematology/Oncology Comment: Orders Procedures Procedure Name Date Provider Location EXTERNAL CARDIOLOGY 11-23-2019 External Provider [facility] ([id number]) PT ED [facility] 10-28-[facility] ([id number][facility] PT ED PATIENT INFORMATION 10-28-[address] [facility] ([id number]) [object Object] 08-30-2019 [facility] ([id number] ) Comment: Result Comment: Total PSA te st methodology used is the Electrochemiluminescence Imm unoassay. Performed By: #### LIPB, PSA S1, CMP ####[facility] [address], [place] [address] [phone] Antibody screen 06-21-2019 [facility] ([id number]) Comment: Performed By: #### TSCR #### [place] [address], [place] [phone] Antibody screen 06-15-2019 [facility] ([id number]) Comment: Performed By: #### TSCR #### [place] [address], [place] [phone] Antibody screen 04-26-2019 [facility] ([id number]) Comment: Performed By: #### TSCR #### [facility], [place] [phone] Antibody screen 04-23-2019 [facility] ([id number]) Comment: Performed By: #### TSCR #### [facility], [place] [phone] Colonoscopy 04-08-2019 - 04-08-2019 [facility] ([id number]) Antibody screen 03-20-2019 [facility] ([id number]) Comment: Performed By: #### TSCR #### [place] [address], [place] [phone] Antibody screen 01-29-2019 [facility] ([id number]) Comment: Performed By: #### TSCR #### [place] [address], [place] [phone] Antibody screen 12-16-2018 [facility] ([id number]) Comment: Performed By: #### CBCDIF, P T, PTT, CK, CMP, LIPA, MG1 #### [facility] [address] [facility] [phone] Plan of Treatment Plan Description Date Location COLONOSCOPY COLONOSCOPY 04-08-2029 - [facility] 04-08-2029 ([id number]) COLORECTAL CANCER COLORECTAL CANCER 04-08-2029 - [facility] inic SCREENING,SEE MODIFIER SCREENING,SEE MODIFIER 04-08-2029 ([id number]) ADVANCE DIRECTIVE ADVANCE DIRECTIVE 06-20-2024 - [facility] inic DISCUSSION DISCUSSION 06-20-2024 ([id number]) DTAP,TDAP,TD (2 - Td) DTAP,TDAP,TD (2 - Td) 06-18-2021 - [facility] 06-18-2021 ([id number]) ANNUAL PCP TEAM CHRONIC ANNUAL PCP TEAM CHRONIC 11-04-2020 - [facility] DISEASE VISIT DISEASE VISIT 11-04-2020 ([id number]) BP CONTROLLED (<130/80) BP CONTROLLED (<130/80) 11-04-2020 - [facility] 11-04-2020 ([id number]) BP CONTROLLED (<130/80) BP CONTROLLED (<130/80) 10-25-2020 - [facility] 10-25-2020 ([id number]) BP CONTROLLED (<130/80) BP CONTROLLED (<130/80) 09-28-2020 - [facility] 09-28-2020 ([id number]) HEMOGLOBIN/HEMATOCRIT HEMOGLOBIN/HEMATOCRIT 09-21-2020 - [facility] 09-21-2020 ([id number]) SERUM CREATININE SERUM CREATININE 09-21-2020 - [facility] 09-21-2020 ([id number]) ANNUAL PCP TEAM CHRONIC ANNUAL PCP TEAM CHRONIC 09-03-2020 - [facility] DISEASE VISIT DISEASE VISIT 09-03-2020 ([id number]) LDL CHOLESTEROL LDL CHOLESTEROL 08-29-2020 - [facility] 08-29-2020 ([id number]) DIABETIC FOOT EXAM DIABETIC FOOT EXAM 04-21-2020 - [facility] 04-21-2020 ([id number]) HBA1C HBA1C 03-16-2020 - [facility] 03-16-2020 ([id number]) DILATED RETINAL EXAM DILATED RETINAL EXAM 03-11-2020 - [facility] 03-11-2020 ([id number]) US ABD RT UPPER QUADRANT US ABD RT UPPER QUADRANT 12-31-2019 - [facility] Radiology Routine 10-29-2020 ([id number]) Crohn's disease of small intestine with other complication (HCC) Abnormal results of liver function studies Carcinoid tumor, unspecified site, unspecified whether malignant Expected: 12/31/2019, Expires: 10/29/2020 Comment: Expected: 12/31/2019, s: 10/29/2020 URINE ALBUMIN:CREATININE URINE ALBUMIN:CREATININE 12-30-2019 - [facility] RATIO RATIO 12-30-2019 ([id number]) INFLUENZA (#1) INFLUENZA (#1) 2019 - [facility] 10-19-2019 ([id number]) LUNG CANCER SCREENING LUNG CANCER SCREENING 09-10-2019 - [facility] 09-10-2019 ([id number]) SHINGRIX VACCINE (2 of 3) SHINGRIX VACCINE (2 of 3) 03-14-2017 - [facility] 03-14-2017 ([id number]) HEPATITIS B (1 of 3 - Risk HEPATITIS B (1 of 3 - Risk 02-04-1968 - [facility] 3-dose series) 3-dose series) [birth year]-04-1968 ([id number]) HEPATITIS A (1 of 2 - Risk HEPATITIS A (1 of 2 - Risk 1950 - [facility] 2-dose series) 2-dose series) 1951 ([id number]) COLONOSCOPY GEN ANES COLONOSCOPY GEN ANES 10-25-2020 [facility] Endoscopy Routine Crohn's ([id number] ) disease of both small and large intestine with other complication (HCC) Crohn's disease of small intestine with complication (HCC) 1 Occurrences starting 10/26/2019 until 10/25/2020 Comment: 1 Occurrences starting 10/25 until 10/25/2020 COMP METABOLIC PANEL COMP METABOLIC PANEL Lab 11-04-2020 [facility] ([id number]) Routine Elevated liver enzymes 1 Occurrences starting 11/05/2019 until 11/04/2020 Comment: 1 Occurrences starting 11/04 until 11/04/2020 INFLUENZA SEASONAL INFLUENZA SEASONAL QUADRIVALENT [facility] QUADRIVALENT HIGH DOSE AGE HIGH DOSE AGE 65+ (44 195) 65+ Immunization/Injection Routine Need for vaccination Ordered: 11/05/2019 Comment: Ordered: 11/05/2019 PRE-PROCEDURE & PRE-PROCEDURE & 11-01-2020 [facility] PRE-OPERATIVE COVID PRE-OPERATIVE COVID ([id number]) Microbiology Routine Intervertebral disc disorders with radiculopathy, lumbar region 1 Occurrences starting 11/02/2019 until 11/01/2020 Comment: 1 Occurrences starting 11/01 until 11/01/2020 PRE-PROCEDURE & PRE-PROCEDURE & 10-25-2020 [facility] PRE-OPERATIVE COVID PRE-OPERATIVE COVID ([id number]) Microbiology Routine Crohn's disease of small intestine with complication (HCC) 1 Occurrences starting 10/26/2019 until 10/25/2020 Comment: 1 Occurrences starting 10/25 until 10/25/2020 PRE-PROCEDURE & PRE-PROCEDURE & 09-29-2020 [facility] PRE-OPERATIVE COVID PRE-OPERATIVE COVID ([id number]) Microbiology Routine Radiculopathy, lumbar region 1 Occurrences starting 09/30/2019 until 09/29/2020 Comment: 1 Occurrences starting 09/29 until 09/29/2020 PT ED DIGESTIVE DISEASE PT ED DIGESTIVE DISEASE [facility] GREG 10/28/2019 ([id number]) PT ED PATIENT INFORMATION PT ED PATIENT INFORMATION [facility] GREG 10/28/2019 ([id number]) VITAMIN B12 BLOOD VITAMIN B12 BLOOD Lab 11-04-2020 [facility] Routine Vitamin B12 ([id number]) deficiency 1 Occurrences starting 11/05/2019 until 11/04/2020 Comment: 1 Occurrences starting 11/04 until 11/04/2020 no information [facility] ([id number]) Immunizations Vaccine Notes Status Date Location Influenza Vaccine, influenza virus (completed) 03-19-2019 - [facility] Split-Non Spec vaccine, unspecified 03-19-2019 (4419 5) formulation Influenza Vaccine, influenza virus (completed) 11-16-2012 - [facility] Split-Non Spec vaccine, unspecified 11-16-2012 (4419 5) formulation Influenza Vaccine, influenza virus (completed) 02-13-2012 - [facility] Split-Non Spec vaccine, unspecified 02-13-2012 (4419 5) formulation Influenza Vaccine, influenza virus (completed) 12-18-2006 - [facility] Split-Non Spec vaccine, unspecified 12-18-2006 ([id number] 5) formulation Influenza Vaccine, influenza virus (completed) 12-27-2005 - [facility] Split-Non Spec vaccine, unspecified 12-27-2005 ([id number] 5) formulation Influenza Vaccine, influenza virus (completed) 01-31-2005 - [facility] Split-Non Spec vaccine, unspecified 01-31-2005 ([id number] 5) formulation Influenza Seasonal - influenza, high dose (completed) 03-19-2019 - [facility] High Dose - Age 65+ seasonal, 03-19-2019 ([id number]) preservative-free Influenza Seasonal - influenza, high dose (completed) 12-01-2017 - [facility] High Dose - Age 65+ seasonal, 12-01-2017 ([id number]) preservative-free Influenza Seasonal - influenza, high dose (completed) 11-26-2016 - [facility] High Dose - Age 65+ seasonal, 11-26-2016 ([id number]) preservative-free Influenza Seasonal - influenza, high dose (completed) 11-02-2015 - [facility] High Dose - Age 65+ seasonal, 11-02-2015 ([id number]) preservative-free Influenza Seasonal - influenza, high dose (completed) 12-01-2014 - [facility] High Dose - Age 65+ seasonal, 12-01-2014 ([id number]) preservative-free NEGATED: Highlighted influenza, high-dose, (completed) 11-05-2019 - [facility] row has not quadrivalent vaccine 11-05-2019 ([id number]) occurred!influenza, (FLUZONE HIGH DOSE high-dose, QUADRIVALENT) quadrivalent vaccine (FLUZONE HIGH DOSE QUADRIVALENT) influenza, high-dose, influenza, high-dose, (completed) 11-05-2019 - [facility] quadrivalent vaccine quadrivalent vaccine 11-05-2019 ([id number]) (FLUZONE HIGH DOSE (FLUZONE HIGH DOSE QUADRIVALENT) QUADRIVALENT) Influenza Seasonal influenza, seasonal, (completed) 12-10-2013 - [facility] Inj Age 3+ injectable 12-10-2013 ([id number]) Influenza Seasonal influenza, seasonal, (completed) 11-16-2012 - [facility] Trivalent Inj Pres injectable, 11-16-2012 ([id number]) Free preservative free Pneumococcal-13 Vac pneumococcal conjugate (completed) 06-10-2016 - [facility] Conjugate vaccine, 13 valent 06-10-2016 ([id number]) [facility] ([facility] 12-01-2014 (441 95) 23 valent Tdap (Age 7+) tetanus toxoid, reduced (completed) 06-19-2011 - [facility] diphtheria toxoid, and 06-19-2011 (4419 5) acellular pertussis vaccine, adsorbed Zostavax zoster vaccine, live (completed) 01-17-2017 - [facility] 01-17-2017 ([id number]) Payers Payer Name Policy Number Location [employer] [id number] [facility] (44 195) MEDICARE [id number] [facility] (44 195) MEDICARE A AND B [id number] [facility] ([id number]) The following information is from the original human readable contentNo Payer Records FoundNo Payer Records FoundNo Payer Records FoundNo Payer Records FoundNo Payer Records FoundNo Payer Records FoundNo Payer Records FoundNo Payer Records FoundNo Payer Records Found Social History Type Social History Date Location Description History of tobacco use Current smoker 02-17-1971 - [facility] 02-17-2006 ([id number]) History SDOH Social 5 12-29-2018 - [facility] in[facility] [employer] Phone 12-29-2018 ([id number]) History of tobacco use Cigarette Smoker 02-17-1971 - [facility] 02-17-2006 ([id number]) Cigarettes smoked 09-29-2019 - [facility] ic current (pack per day) - 11-22-2019 ([id number]) Reported Tobacco use and exposure Never used 09-29-2019 - [facility] 11-22-2019 ([id number]) Alcohol intake Current non-drinker of 09-29-2019 [facility] alcohol (finding) 11-22-2019 (49355) History SDOH Alcohol 1 12-29-2018 - [facility] linic Frequency 12-29-2018 ([id number]) History SDOH Alcohol Std 98 12-29-2018 - [facility] Drinks 12-29-2018 ([id number]) Tobacco smoking status Former smoker 09-29-2019 - [facility] NHIS 11-22-2019 ([id number]) History SDOH Social 2 12-29-2018 - [facility] Get Together 12-29-2018 (44242) History SDOH Social 3 12-29-2018 - [facility] Uats[employer] 12-29-2018 ([id number]) History SDOH Physical 0 12-29-2018 - [facility] Activity DPW 06-29-2019 ([id number]) History SDOH Education 17 12-29-2018 - [facility] 12-29-2018 ([id number]) Sex Assigned At Not on file [facility] ([id number]) Exposure to SARS-CoV-2 Not sure [facility] (event) (99559) Tobacco Comment currently chews nicotine 10-26-2019 - [facility] gum 10-26-2019 (17293) Exposure to SARS-CoV-2 Unable to assess [facility] (event) ([id number]) The following information is from the original human readable contentNo Social History Records FoundNo Social History Records FoundNo Social History Records FoundNo Social History Records FoundNo Social History Records FoundNo Social History Records FoundNo Social History Records FoundNo Social History Records FoundNo Social History Records FoundNo Social History Records FoundNo Social History Records Found Medical Equipment Equipment Code Equipment Original Equipment Procedure Code Dates (if provided) Text (if provided) Identifier (if (if provided) provided) Catheter Abdullahi [id number] 04-29-2019 Surecuff 9.6fr 3.2mm 1.6mm 2 Branch 90cm Central Venous 1 - [id number] Inject 1 Syringe 08-31-2019 subcutaneously one time a week. Use three times daily 2019 to check blood sugar Refer to insulin 05-06-2019 sliding scale Use three times daily 2019 to check blood sugar Inject 1 Syringe 08-31-2019 subcutaneously one time a week. Use three times daily 2019 to check blood sugar Refer to insulin 05-06-2019 sliding scale Use three times daily 2019 to check blood sugar Inject 1 Syringe 08-31-2019 subcutaneously one time a week. Use three times daily 2019 to check blood sugar Refer to insulin 05-06-2019 sliding scale Use three times daily 2019 to check blood sugar Inject 1 Syringe 08-31-2019 subcutaneously one time a week. Use three times daily 2019 to check blood sugar Refer to insulin 05-06-2019 sliding scale Use three times daily 2019 to check blood sugar Inject 1 Syringe 08-31-2019 subcutaneously one time a week. Use three times daily 2019 to check blood sugar Refer to insulin 05-06-2019 sliding scale Use three times daily 2019 to check blood sugar Inject 1 Syringe 08-31-2019 subcutaneously one time a week. Use three times daily 2019 to check blood sugar Refer to insulin 05-06-2019 sliding scale Use three times daily 2019 to check blood sugar Inject 1 Syringe 08-31-2019 subcutaneously one time a week. Use three times daily 2019 to check blood sugar Refer to insulin 05-06-2019 sliding scale Use three times daily 2019 to check blood sugar Inject 1 Syringe 08-31-2019 subcutaneously one time a week. Use three times daily 2019 to check blood sugar Refer to insulin 05-06-2019 sliding scale Use three times daily 2019 to check blood sugar Inject 1 Syringe 08-31-2019 subcutaneously one time a week. Use three times daily 2019 to check blood sugar Refer to insulin 05-06-2019 sliding scale Use three times daily 2019 to check blood sugar Inject 1 Syringe 08-31-2019 subcutaneously one time a week. Use three times daily 2019 to check blood sugar Refer to insulin 05-06-2019 sliding scale Use three times daily 2019 to check blood sugar Inject 1 Syringe 08-31-2019 subcutaneously one time a week. Use three times daily 2019 to check blood sugar Refer to insulin 05-06-2019 sliding scale Use three times daily 2019 to check blood sugar Inject 1 Syringe 08-31-2019 subcutaneously one time a week. Use three times daily 2019 to check blood sugar Refer to insulin 05-06-2019 sliding scale Use three times daily 2019 to check blood sugar [place] [id number] 09-06-2015 Fiberwire 5.5mm 2 Full Thread Peek 14.7mm Suture 2 4 - [id number] Use three times daily 2019 to check blood sugar Refer to insulin 05-06-2019 sliding scale Use three times daily 2019 to check blood sugar Inject 1 Syringe 08-31-2019 subcutaneously one time a week. Use three times daily 2019 to check blood sugar Refer to insulin 05-06-2019 sliding scale Use three times daily 2019 to check blood sugar Inject 1 Syringe - subcutaneously one time a week. Use three times daily 2019 to check blood sugar Refer to insulin 05-06-2019 sliding scale Use three times daily 2019 to check blood sugar Inject 1 Syringe - subcutaneously one time a week. Use three times daily 2019 to check blood sugar Refer to insulin 05-06-2019 sliding scale Use three times daily 2019 to check blood sugar Inject 1 Syringe 08-31-2019 subcutaneously one time a week. Use three times daily 2019 to check blood sugar Refer to insulin 05-06-2019 sliding scale Use three times daily 2019 to check blood sugar Inject 1 Syringe 08-31-2019 subcutaneously one time a week. Use three times daily 2019 to check blood sugar Refer to insulin 05-06-2019 sliding scale Use three times daily 2019 to check blood sugar Inject 1 Syringe 08-31-2019 subcutaneously one time a week. Use three times daily 2019 to check blood sugar Refer to insulin 05-06-2019 sliding scale Use three times daily 2019 to check blood sugar Inject 1 Syringe 08-31-2019 subcutaneously one time a week. Use three times daily 2019 to check blood sugar Refer to insulin 05-06-2019 sliding scale Use three times daily 2019 to check blood sugar Inject 1 Syringe 08-31-2019 subcutaneously one time a week. Use three times daily 2019 to check blood sugar Refer to insulin 05-06-2019 sliding scale Use three times daily 2019 to check blood sugar Inject 1 Syringe - subcutaneously one time a week. Use three times daily 2019 to check blood sugar Refer to insulin 05-06-2019 sliding scale Use three times daily 2019 to check blood sugar Inject 1 Syringe - subcutaneously one time a week. Use three times daily 2019 to check blood sugar Refer to insulin 05-06-2019 sliding scale Use three times daily 2019 to check blood sugar Inject 1 Syringe - subcutaneously one time a week. Use three times daily 2019 to check blood sugar Refer to insulin 05-06-2019 sliding scale Use three times daily 2019 to check blood sugar Inject 1 Syringe 08-31-2019 subcutaneously one time a week. History of Past Illness Problem Noted Date Resolved Date Ileostomy in place 06/21/2019 06/22/2019 Hyponatremia 04/30/2019 05/06/2019 Last Assessment & Plan: Assessment: Na 134 PLAN: Trend Na Continue specialized IVF Acute respiratory insufficiency, postoperative 04/27/2019 04/28/2019 Last Assessment & Plan: Assessment: intubated this morning PLAN: Extubate as able per SICU Delirium 04/27/2019 04/28/2019 Last Assessment & Plan: Assessment: intubated, sedated PLAN: Implement delirium nursing protocol Hypokalemia 02/04/2019 05/03/2019 Last Assessment & Plan: Assessment: K 3.5 PLAN: Replete k>4 per standing electrolyte pro tocol Trend K daily Altered bowel elimination due to intestinal ostomy 9 12/21/2018 Last Assessment & Plan: Assessment: Improving Negative stool studies GI following-on Questran and Imodium PLAN: Continue current management as per GI re commendation Obesity, Class I, BMI 30-34.9 12/17/2018 12/21/2018 Hypophosphatemia 11/25/2018 04/29/2019 Last Assessment & Plan: Assessment: phos 2.6 PLAN: Replete phos>2.5 Postoperative ileus 11/25/2018 11/30/2018 Last Assessment & Plan: Assessment: resolving PLAN: Clears as tolerated Stoma intubated 11/26 Obesity, Class I, BMI 30-34.9 11/24/2018 12/17/2018 Last Assessment & Plan: PLAN: Nutrition consult Acute blood loss anemia 11/24/2018 04/30/2019 Last Assessment & Plan: Assessment: transfused 1 unit pRBC overn ight on POD0 PLAN: Trend H&H Resume dvt ppx heparin Bilateral IPCs and encourage ambulation Colon stricture 11/12/2018 12/17/2018 Physical deconditioning 03/30/2018 12/17/2018 Intervertebral disc disorder with radiculopathy of lumbar 12/17/2018 region 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 12/17/2018 Arteriosclerosis, mesenteric artery 09/24/201611/19 Family history of ischemic heart disease 04/16/2016 12/17/2018 Obesity (BMI 30-39.9) 04/16/2016 12/17/2018 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 10/1812/17/2018 Weakness of shoulder 11/01/2015 12/17/2018 Type 2 diabetes mellitus with complication 08/18/2015 12/17/2018 Incomplete tear of right rotator cuff 08/01/2015 Impingement syndrome of right shoulder 03/01/2015 1 Neuroendocrine malignancy 10/17/2014 12/17/2018 Spermatocele 10/17/2014 12/17/2018 Hydrocele sac 10/17/2014 12/17/2018 Testalgia 10/03/2014 12/17/2018 Hypertrophy of prostate with urinary obstruction and other 0 10/03/2014 08/18/2015 lower urinary tract symptoms (LUTS) Complex sleep apnea syndrome 06/07/2014 08/18/2015 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 12/17/2018 Vitamin D deficiency 04/25/2014 12/17/2018 B12 deficiency 04/25/2014 08/18/2015 Cognitive impairment 04/22/2014 12/17/2018 Overview: MOCA (04/2014) Last Assessment & Plan: Measurable cognitive impairment with modest impairment in function (predominantly community activities - no impairments in IADLs or BADLs). Though he screens positively for depression, he does not have enough depressive symptoms to meet crite polo for major depressive disorder. He has no anxiety, psychosis; he has a history of TIAs but no history of CVA. He does have vascular risk factors (though no foc al deficits on neurological examination today). He has no signs of spontaneous parkinsonism (though he does report occasional vertigo, urinary hesitancy/reduced flow/feelings of incomplete void, palpita tions - these could suggest an autonomic problem). 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 He is currently being t reated for mild hypothyroidism (this pro bably does not completely explain his symptoms but could be contributing). Review of his labwork does not otherwise reveal any significant contributing factors to his cognitive impairment. 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) along with B1 level - picture unclear; relationship of cogni tive impairment to fatigue unclear; ?paraneoplastic syndrome - will need to consider panel in the future - continue to monitor for development of new symptoms, progression of cognitive and functional impairment Urinary hesitancy 04/22/2014 12/17/2018 Last Assessment & Plan: Noted on history; unable to get PVR today - ordered - further recs based on results Anal fissure 05/17/2013 12/17/2018 Incisional hernia 08/31/2012 12/17/2018 Secondary and unspecified malignant neoplasm of intrathoraci c 07/19/2011 12/17/2018 lymph nodes Diarrhea 04/26/2011 12/17/2018 Abdominal wall bulge 02/26/2011 04/15/2018 Secondary and unspecified malignant neoplasm of intra-abdomi nal 12/27/2010 12/17/2018 lymph nodes Cancer of ilium 12/27/2010 12/17/2018 IBS (irritable bowel syndrome) 03/06/2010 9 Tinnitus, right 03/06/2010 12/17/2018 Lumbago 06/17/2008 12/17/2018 Enthesopathy of hip region 06/17/2008 12/17/2018 Stroke 02/18/2008 12/17/2018 Overview: TIA-questionable diagnosis GASTRITIS ANTRAL( W/O Hemorrhage) 10/24/20062018 DUODENITIS - NO HEMORRHAGE 10/24/2006 12/17/2018 ESOPHAGITIS REFLUX 10/24/2006 12/17/2018 Acute gastritis without mention of hemorrhage 10/24/2006 12/17/2018 MYALGIA AND MYOSITIS NOS 01/02/2006 06/06/2015 Sciatica 11/08/2005 12/17/2018 Radiculopathy, lumbar region 10/28/2005 12/17/2018 Spinal stenosis 10/28/2005 12/17/2018 Last Assessment & Plan: PLAN: Home cymbalta and gabapentin Displacement of lumbar 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th y 12/17/2018 Preop exam for internal medicine 016 Mesenteric mass 12/17/2018 Sleep apnea AHI 48 08/18/2015 S/P primary angioplasty with coronary stent 12/17/2018 Overview: PCI - 1999 Central sleep apnea 12/17/2018 Bladder cancer 12/17/2018 Overview: Superficial bladder cancer, status post TURP & mitomycin-C Problem Noted Date Resolved Date Ileostomy in place 06/21/2019 06/22/2019 Hyponatremia 04/30/2019 05/06/2019 Last Assessment & Plan: Assessment: Na 134 PLAN: Trend Na Continue specialized IVF Acute respiratory insufficiency, postoperative 04/27/2019 04/28/2019 Last Assessment & Plan: Assessment: intubated this morning PLAN: Extubate as able per SICU Delirium 04/27/2019 04/28/2019 Last Assessment & Plan: Assessment: intubated, sedated PLAN: Implement delirium nursing protocol Hypokalemia 02/04/2019 05/03/2019 Last Assessment & Plan: Assessment: K 3.5 PLAN: Replete k>4 per standing electrolyte pro tocol Trend K daily Altered bowel elimination due to intestinal ostomy 9 12/21/2018 Last Assessment & Plan: Assessment: Improving Negative stool studies GI following-on Questran and Imodium PLAN: Continue current management as per GI re commendation Obesity, Class I, BMI 30-34.9 12/17/2018 12/21/2018 Hypophosphatemia 11/25/2018 04/29/2019 Last Assessment & Plan: Assessment: phos 2.6 PLAN: Replete phos>2.5 Postoperative ileus 11/25/2018 11/30/2018 Last Assessment & Plan: Assessment: resolving PLAN: Clears as tolerated Stoma intubated 11/26 Obesity, Class I, BMI 30-34.9 11/24/2018 12/17/2018 Last Assessment & Plan: PLAN: Nutrition consult Acute blood loss anemia 11/24/2018 04/30/2019 Last Assessment & Plan: Assessment: transfused 1 unit pRBC overn ight on POD0 PLAN: Trend H&H Resume dvt ppx heparin Bilateral IPCs and encourage ambulation Colon stricture 11/12/2018 12/17/2018 Physical deconditioning 03/30/2018 12/17/2018 Intervertebral disc disorder with radiculopathy of lumbar 12/17/2018 region 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 12/17/2018 Arteriosclerosis, mesenteric artery 09/24/201611/19 Family history of ischemic heart disease 04/16/2016 12/17/2018 Obesity (BMI 30-39.9) 04/16/2016 12/17/2018 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 10/1812/17/2018 Weakness of shoulder 11/01/2015 12/17/2018 Type 2 diabetes mellitus with complication 08/18/2015 12/17/2018 Incomplete tear of right rotator cuff 08/01/2015 Impingement syndrome of right shoulder 03/01/2015 1 Neuroendocrine malignancy 10/17/2014 12/17/2018 Spermatocele 10/17/2014 12/17/2018 Hydrocele sac 10/17/2014 12/17/2018 Testalgia 10/03/2014 12/17/2018 Hypertrophy of prostate with urinary obstruction and other 0 10/03/2014 08/18/2015 lower urinary tract symptoms (LUTS) Complex sleep apnea syndrome 06/07/2014 08/18/2015 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 12/17/2018 Vitamin D deficiency 04/25/2014 12/17/2018 B12 deficiency 04/25/2014 08/18/2015 Cognitive impairment 04/22/2014 12/17/2018 Overview: MOCA (04/2014) Last Assessment & Plan: Measurable cognitive impairment with modest impairment in function (predominantly community activities - no impairments in IADLs or BADLs). Though he screens positively for depression, he does not have enough depressive symptoms to meet crite polo for major depressive disorder. He has no anxiety, psychosis; he has a history of TIAs but no history of CVA. He does have vascular risk factors (though no foc al deficits on neurological examination today). He has no signs of spontaneous parkinsonism (though he does report occasional vertigo, urinary hesitancy/reduced flow/feelings of incomplete void, palpita tions - these could suggest an autonomic problem). 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 He is currently being t reated for mild hypothyroidism (this pro bably does not completely explain his symptoms but could be contributing). Review of his labwork does not otherwise reveal any significant contributing factors to his cognitive impairment. 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) along with B1 level - picture unclear; relationship of cogni tive impairment to fatigue unclear; ?paraneoplastic syndrome - will need to consider panel in the future - continue to monitor for development of new symptoms, progression of cognitive and functional impairment Urinary hesitancy 04/22/2014 12/17/2018 Last Assessment & Plan: Noted on history; unable to get PVR today - ordered - further recs based on results Anal fissure 05/17/2013 12/17/2018 Incisional hernia 08/31/2012 12/17/2018 Secondary and unspecified malignant neoplasm of intrathoraci c 07/19/2011 12/17/2018 lymph nodes Diarrhea 04/26/2011 12/17/2018 Abdominal wall bulge 02/26/2011 04/15/2018 Secondary and unspecified malignant neoplasm of intra-abdomi nal 12/27/2010 12/17/2018 lymph nodes Cancer of ilium 12/27/2010 12/17/2018 IBS (irritable bowel syndrome) 03/06/2010 9 Tinnitus, right 03/06/2010 12/17/2018 Lumbago 06/17/2008 12/17/2018 Enthesopathy of hip region 06/17/2008 12/17/2018 Stroke 02/18/2008 12/17/2018 Overview: TIA-questionable diagnosis GASTRITIS ANTRAL( W/O Hemorrhage) 10/24/20062018 DUODENITIS - NO HEMORRHAGE 10/24/2006 12/17/2018 ESOPHAGITIS REFLUX 10/24/2006 12/17/2018 Acute gastritis without mention of hemorrhage 10/24/2006 12/17/2018 MYALGIA AND MYOSITIS NOS 01/02/2006 06/06/2015 Sciatica 11/08/2005 12/17/2018 Radiculopathy, lumbar region 10/28/2005 12/17/2018 Spinal stenosis 10/28/2005 12/17/2018 Last Assessment & Plan: PLAN: Home cymbalta and gabapentin Displacement of lumbar 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th y 12/17/2018 Preop exam for internal medicine 016 Mesenteric mass 12/17/2018 Sleep apnea AHI 48 08/18/2015 S/P primary angioplasty with coronary stent 12/17/2018 Overview: PCI - 1999 Central sleep apnea 12/17/2018 Bladder cancer 12/17/2018 Overview: Superficial bladder cancer, status post TURP & mitomycin-C Problem Noted Date Resolved Date Ileostomy in place 06/21/2019 06/22/2019 Hyponatremia 04/30/2019 05/06/2019 Last Assessment & Plan: Assessment: Na 134 PLAN: Trend Na Continue specialized IVF Acute respiratory insufficiency, postoperative 04/27/2019 04/28/2019 Last Assessment & Plan: Assessment: intubated this morning PLAN: Extubate as able per SICU Delirium 04/27/2019 04/28/2019 Last Assessment & Plan: Assessment: intubated, sedated PLAN: Implement delirium nursing protocol Hypokalemia 02/04/2019 05/03/2019 Last Assessment & Plan: Assessment: K 3.5 PLAN: Replete k>4 per standing electrolyte pro tocol Trend K daily Altered bowel elimination due to intestinal ostomy 9 12/21/2018 Last Assessment & Plan: Assessment: Improving Negative stool studies GI following-on Questran and Imodium PLAN: Continue current management as per GI re commendation Obesity, Class I, BMI 30-34.9 12/17/2018 12/21/2018 Hypophosphatemia 11/25/2018 04/29/2019 Last Assessment & Plan: Assessment: phos 2.6 PLAN: Replete phos>2.5 Postoperative ileus 11/25/2018 11/30/2018 Last Assessment & Plan: Assessment: resolving PLAN: Clears as tolerated Stoma intubated 11/26 Obesity, Class I, BMI 30-34.9 11/24/2018 12/17/2018 Last Assessment & Plan: PLAN: Nutrition consult Acute blood loss anemia 11/24/2018 04/30/2019 Last Assessment & Plan: Assessment: transfused 1 unit pRBC overn ight on POD0 PLAN: Trend H&H Resume dvt ppx heparin Bilateral IPCs and encourage ambulation Colon stricture 11/12/2018 12/17/2018 Physical deconditioning 03/30/2018 12/17/2018 Intervertebral disc disorder with radiculopathy of lumbar 12/17/2018 region 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 12/17/2018 Arteriosclerosis, mesenteric artery 09/24/201611/19 Family history of ischemic heart disease 04/16/2016 12/17/2018 Obesity (BMI 30-39.9) 04/16/2016 12/17/2018 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 10/1812/17/2018 Weakness of shoulder 11/01/2015 12/17/2018 Type 2 diabetes mellitus with complication 08/18/2015 12/17/2018 Incomplete tear of right rotator cuff 08/01/2015 Impingement syndrome of right shoulder 03/01/2015 1 Neuroendocrine malignancy 10/17/2014 12/17/2018 Spermatocele 10/17/2014 12/17/2018 Hydrocele sac 10/17/2014 12/17/2018 Testalgia 10/03/2014 12/17/2018 Hypertrophy of prostate with urinary obstruction and other 0 10/03/2014 08/18/2015 lower urinary tract symptoms (LUTS) Complex sleep apnea syndrome 06/07/2014 08/18/2015 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 12/17/2018 Vitamin D deficiency 04/25/2014 12/17/2018 B12 deficiency 04/25/2014 08/18/2015 Cognitive impairment 04/22/2014 12/17/2018 Overview: MOCA (04/2014) Last Assessment & Plan: Measurable cognitive impairment with modest impairment in function (predominantly community activities - no impairments in IADLs or BADLs). Though he screens positively for depression, he does not have enough depressive symptoms to meet crite polo for major depressive disorder. He has no anxiety, psychosis; he has a history of TIAs but no history of CVA. He does have vascular risk factors (though no foc al deficits on neurological examination today). He has no signs of spontaneous parkinsonism (though he does report occasional vertigo, urinary hesitancy/reduced flow/feelings of incomplete void, palpita tions - these could suggest an autonomic problem). 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 He is currently being t reated for mild hypothyroidism (this pro bably does not completely explain his symptoms but could be contributing). Review of his labwork does not otherwise reveal any significant contributing factors to his cognitive impairment. 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) along with B1 level - picture unclear; relationship of cogni tive impairment to fatigue unclear; ?paraneoplastic syndrome - will need to consider panel in the future - continue to monitor for development of new symptoms, progression of cognitive and functional impairment Urinary hesitancy 04/22/2014 12/17/2018 Last Assessment & Plan: Noted on history; unable to get PVR today - ordered - further recs based on results Anal fissure 05/17/2013 12/17/2018 Incisional hernia 08/31/2012 12/17/2018 Secondary and unspecified malignant neoplasm of intrathoraci c 07/19/2011 12/17/2018 lymph nodes Diarrhea 04/26/2011 12/17/2018 Abdominal wall bulge 02/26/2011 04/15/2018 Secondary and unspecified malignant neoplasm of intra-abdomi nal 12/27/2010 12/17/2018 lymph nodes Cancer of ilium 12/27/2010 12/17/2018 IBS (irritable bowel syndrome) 03/06/2010 9 Tinnitus, right 03/06/2010 12/17/2018 Lumbago 06/17/2008 12/17/2018 Enthesopathy of hip region 06/17/2008 12/17/2018 Stroke 02/18/2008 12/17/2018 Overview: TIA-questionable diagnosis GASTRITIS ANTRAL( W/O Hemorrhage) 10/24/20062018 DUODENITIS - NO HEMORRHAGE 10/24/2006 12/17/2018 ESOPHAGITIS REFLUX 10/24/2006 12/17/2018 Acute gastritis without mention of hemorrhage 10/24/2006 12/17/2018 MYALGIA AND MYOSITIS NOS 01/02/2006 06/06/2015 Sciatica 11/08/2005 12/17/2018 Radiculopathy, lumbar region 10/28/2005 12/17/2018 Spinal stenosis 10/28/2005 12/17/2018 Last Assessment & Plan: PLAN: Home cymbalta and gabapentin Displacement of lumbar 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th y 12/17/2018 Preop exam for internal medicine 016 Mesenteric mass 12/17/2018 Sleep apnea AHI 48 08/18/2015 S/P primary angioplasty with coronary stent 12/17/2018 Overview: PCI - 1999 Central sleep apnea 12/17/2018 Bladder cancer 12/17/2018 Overview: Superficial bladder cancer, status post TURP & mitomycin-C Problem Noted Date Resolved Date Ileostomy in place 06/21/2019 06/22/2019 Hyponatremia 04/30/2019 05/06/2019 Last Assessment & Plan: Assessment: Na 134 PLAN: Trend Na Continue specialized IVF Acute respiratory insufficiency, postoperative 04/27/2019 04/28/2019 Last Assessment & Plan: Assessment: intubated this morning PLAN: Extubate as able per SICU Delirium 04/27/2019 04/28/2019 Last Assessment & Plan: Assessment: intubated, sedated PLAN: Implement delirium nursing protocol Hypokalemia 02/04/2019 05/03/2019 Last Assessment & Plan: Assessment: K 3.5 PLAN: Replete k>4 per standing electrolyte pro tocol Trend K daily Altered bowel elimination due to intestinal ostomy 9 12/21/2018 Last Assessment & Plan: Assessment: Improving Negative stool studies GI following-on Questran and Imodium PLAN: Continue current management as per GI re commendation Obesity, Class I, BMI 30-34.9 12/17/2018 12/21/2018 Hypophosphatemia 11/25/2018 04/29/2019 Last Assessment & Plan: Assessment: phos 2.6 PLAN: Replete phos>2.5 Postoperative ileus 11/25/2018 11/30/2018 Last Assessment & Plan: Assessment: resolving PLAN: Clears as tolerated Stoma intubated 11/26 Obesity, Class I, BMI 30-34.9 11/24/2018 12/17/2018 Last Assessment & Plan: PLAN: Nutrition consult Acute blood loss anemia 11/24/2018 04/30/2019 Last Assessment & Plan: Assessment: transfused 1 unit pRBC overn ight on POD0 PLAN: Trend H&H Resume dvt ppx heparin Bilateral IPCs and encourage ambulation Colon stricture 11/12/2018 12/17/2018 Physical deconditioning 03/30/2018 12/17/2018 Intervertebral disc disorder with radiculopathy of lumbar 12/17/2018 region 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 12/17/2018 Arteriosclerosis, mesenteric artery 09/24/201611/19 Family history of ischemic heart disease 04/16/2016 12/17/2018 Obesity (BMI 30-39.9) 04/16/2016 12/17/2018 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 10/1812/17/2018 Weakness of shoulder 11/01/2015 12/17/2018 Type 2 diabetes mellitus with complication 08/18/2015 12/17/2018 Incomplete tear of right rotator cuff 08/01/2015 Impingement syndrome of right shoulder 03/01/2015 1 Neuroendocrine malignancy 10/17/2014 12/17/2018 Spermatocele 10/17/2014 12/17/2018 Hydrocele sac 10/17/2014 12/17/2018 Testalgia 10/03/2014 12/17/2018 Hypertrophy of prostate with urinary obstruction and other 0 10/03/2014 08/18/2015 lower urinary tract symptoms (LUTS) Complex sleep apnea syndrome 06/07/2014 08/18/2015 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 12/17/2018 Vitamin D deficiency 04/25/2014 12/17/2018 B12 deficiency 04/25/2014 08/18/2015 Cognitive impairment 04/22/2014 12/17/2018 Overview: MOCA (04/2014) Last Assessment & Plan: Measurable cognitive impairment with modest impairment in function (predominantly community activities - no impairments in IADLs or BADLs). Though he screens positively for depression, he does not have enough depressive symptoms to meet crite polo for major depressive disorder. He has no anxiety, psychosis; he has a history of TIAs but no history of CVA. He does have vascular risk factors (though no foc al deficits on neurological examination today). He has no signs of spontaneous parkinsonism (though he does report occasional vertigo, urinary hesitancy/reduced flow/feelings of incomplete void, palpita tions - these could suggest an autonomic problem). 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 He is currently being t reated for mild hypothyroidism (this pro bably does not completely explain his symptoms but could be contributing). Review of his labwork does not otherwise reveal any significant contributing factors to his cognitive impairment. 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) along with B1 level - picture unclear; relationship of cogni tive impairment to fatigue unclear; ?paraneoplastic syndrome - will need to consider panel in the future - continue to monitor for development of new symptoms, progression of cognitive and functional impairment Urinary hesitancy 04/22/2014 12/17/2018 Last Assessment & Plan: Noted on history; unable to get PVR today - ordered - further recs based on results Anal fissure 05/17/2013 12/17/2018 Incisional hernia 08/31/2012 12/17/2018 Secondary and unspecified malignant neoplasm of intrathoraci c 07/19/2011 12/17/2018 lymph nodes Diarrhea 04/26/2011 12/17/2018 Abdominal wall bulge 02/26/2011 04/15/2018 Secondary and unspecified malignant neoplasm of intra-abdomi nal 12/27/2010 12/17/2018 lymph nodes Cancer of ilium 12/27/2010 12/17/2018 IBS (irritable bowel syndrome) 03/06/2010 9 Tinnitus, right 03/06/2010 12/17/2018 Lumbago 06/17/2008 12/17/2018 Enthesopathy of hip region 06/17/2008 12/17/2018 Stroke 02/18/2008 12/17/2018 Overview: TIA-questionable diagnosis GASTRITIS ANTRAL( W/O Hemorrhage) 10/24/20062018 DUODENITIS - NO HEMORRHAGE 10/24/2006 12/17/2018 ESOPHAGITIS REFLUX 10/24/2006 12/17/2018 Acute gastritis without mention of hemorrhage 10/24/2006 12/17/2018 MYALGIA AND MYOSITIS NOS 01/02/2006 06/06/2015 Sciatica 11/08/2005 12/17/2018 Radiculopathy, lumbar region 10/28/2005 12/17/2018 Spinal stenosis 10/28/2005 12/17/2018 Last Assessment & Plan: PLAN: Home cymbalta and gabapentin Displacement of lumbar 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th y 12/17/2018 Preop exam for internal medicine 016 Mesenteric mass 12/17/2018 Sleep apnea AHI 48 08/18/2015 S/P primary angioplasty with coronary stent 12/17/2018 Overview: PCI - 1999 Central sleep apnea 12/17/2018 Bladder cancer 12/17/2018 Overview: Superficial bladder cancer, status post TURP & mitomycin-C Problem Noted Date Resolved Date Ileostomy in place 06/21/2019 06/22/2019 Hyponatremia 04/30/2019 05/06/2019 Last Assessment & Plan: Assessment: Na 134 PLAN: Trend Na Continue specialized IVF Acute respiratory insufficiency, postoperative 04/27/2019 04/28/2019 Last Assessment & Plan: Assessment: intubated this morning PLAN: Extubate as able per SICU Delirium 04/27/2019 04/28/2019 Last Assessment & Plan: Assessment: intubated, sedated PLAN: Implement delirium nursing protocol Hypokalemia 02/04/2019 05/03/2019 Last Assessment & Plan: Assessment: K 3.5 PLAN: Replete k>4 per standing electrolyte pro tocol Trend K daily Altered bowel elimination due to intestinal ostomy 9 12/21/2018 Last Assessment & Plan: Assessment: Improving Negative stool studies GI following-on Questran and Imodium PLAN: Continue current management as per GI re commendation Obesity, Class I, BMI 30-34.9 12/17/2018 12/21/2018 Hypophosphatemia 11/25/2018 04/29/2019 Last Assessment & Plan: Assessment: phos 2.6 PLAN: Replete phos>2.5 Postoperative ileus 11/25/2018 11/30/2018 Last Assessment & Plan: Assessment: resolving PLAN: Clears as tolerated Stoma intubated 11/26 Obesity, Class I, BMI 30-34.9 11/24/2018 12/17/2018 Last Assessment & Plan: PLAN: Nutrition consult Acute blood loss anemia 11/24/2018 04/30/2019 Last Assessment & Plan: Assessment: transfused 1 unit pRBC overn ight on POD0 PLAN: Trend H&H Resume dvt ppx heparin Bilateral IPCs and encourage ambulation Colon stricture 11/12/2018 12/17/2018 Physical deconditioning 03/30/2018 12/17/2018 Intervertebral disc disorder with radiculopathy of lumbar 12/17/2018 region 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 12/17/2018 Arteriosclerosis, mesenteric artery 09/24/201611/19 Family history of ischemic heart disease 04/16/2016 12/17/2018 Obesity (BMI 30-39.9) 04/16/2016 12/17/2018 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 10/1812/17/2018 Weakness of shoulder 11/01/2015 12/17/2018 Type 2 diabetes mellitus with complication 08/18/2015 12/17/2018 Incomplete tear of right rotator cuff 08/01/2015 Impingement syndrome of right shoulder 03/01/2015 1 Neuroendocrine malignancy 10/17/2014 12/17/2018 Spermatocele 10/17/2014 12/17/2018 Hydrocele sac 10/17/2014 12/17/2018 Testalgia 10/03/2014 12/17/2018 Hypertrophy of prostate with urinary obstruction and other 0 10/03/2014 08/18/2015 lower urinary tract symptoms (LUTS) Complex sleep apnea syndrome 06/07/2014 08/18/2015 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 12/17/2018 Vitamin D deficiency 04/25/2014 12/17/2018 B12 deficiency 04/25/2014 08/18/2015 Cognitive impairment 04/22/2014 12/17/2018 Overview: MOCA (04/2014) Last Assessment & Plan: Measurable cognitive impairment with modest impairment in function (predominantly community activities - no impairments in IADLs or BADLs). Though he screens positively for depression, he does not have enough depressive symptoms to meet crite polo for major depressive disorder. He has no anxiety, psychosis; he has a history of TIAs but no history of CVA. He does have vascular risk factors (though no foc al deficits on neurological examination today). He has no signs of spontaneous parkinsonism (though he does report occasional vertigo, urinary hesitancy/reduced flow/feelings of incomplete void, palpita tions - these could suggest an autonomic problem). 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 He is currently being t reated for mild hypothyroidism (this pro bably does not completely explain his symptoms but could be contributing). Review of his labwork does not otherwise reveal any significant contributing factors to his cognitive impairment. 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) along with B1 level - picture unclear; relationship of cogni tive impairment to fatigue unclear; ?paraneoplastic syndrome - will need to consider panel in the future - continue to monitor for development of new symptoms, progression of cognitive and functional impairment Urinary hesitancy 04/22/2014 12/17/2018 Last Assessment & Plan: Noted on history; unable to get PVR today - ordered - further recs based on results Anal fissure 05/17/2013 12/17/2018 Incisional hernia 08/31/2012 12/17/2018 Secondary and unspecified malignant neoplasm of intrathoraci c 07/19/2011 12/17/2018 lymph nodes Diarrhea 04/26/2011 12/17/2018 Abdominal wall bulge 02/26/2011 04/15/2018 Secondary and unspecified malignant neoplasm of intra-abdomi nal 12/27/2010 12/17/2018 lymph nodes Cancer of ilium 12/27/2010 12/17/2018 IBS (irritable bowel syndrome) 03/06/2010 9 Tinnitus, right 03/06/2010 12/17/2018 Lumbago 06/17/2008 12/17/2018 Enthesopathy of hip region 06/17/2008 12/17/2018 Stroke 02/18/2008 12/17/2018 Overview: TIA-questionable diagnosis GASTRITIS ANTRAL( W/O Hemorrhage) 10/24/20062018 DUODENITIS - NO HEMORRHAGE 10/24/2006 12/17/2018 ESOPHAGITIS REFLUX 10/24/2006 12/17/2018 Acute gastritis without mention of hemorrhage 10/24/2006 12/17/2018 MYALGIA AND MYOSITIS NOS 01/02/2006 06/06/2015 Sciatica 11/08/2005 12/17/2018 Radiculopathy, lumbar region 10/28/2005 12/17/2018 Spinal stenosis 10/28/2005 12/17/2018 Last Assessment & Plan: PLAN: Home cymbalta and gabapentin Displacement of lumbar 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th y 12/17/2018 Preop exam for internal medicine 016 Mesenteric mass 12/17/2018 Sleep apnea AHI 48 08/18/2015 S/P primary angioplasty with coronary stent 12/17/2018 Overview: PCI - 1999 Central sleep apnea 12/17/2018 Bladder cancer 12/17/2018 Overview: Superficial bladder cancer, status post TURP & mitomycin-C Problem Noted Date Resolved Date Ileostomy in place 06/21/2019 06/22/2019 Hyponatremia 04/30/2019 05/06/2019 Last Assessment & Plan: Assessment: Na 134 PLAN: Trend Na Continue specialized IVF Acute respiratory insufficiency, postoperative 04/27/2019 04/28/2019 Last Assessment & Plan: Assessment: intubated this morning PLAN: Extubate as able per SICU Delirium 04/27/2019 04/28/2019 Last Assessment & Plan: Assessment: intubated, sedated PLAN: Implement delirium nursing protocol Hypokalemia 02/04/2019 05/03/2019 Last Assessment & Plan: Assessment: K 3.5 PLAN: Replete k>4 per standing electrolyte pro tocol Trend K daily Altered bowel elimination due to intestinal ostomy 9 12/21/2018 Last Assessment & Plan: Assessment: Improving Negative stool studies GI following-on Questran and Imodium PLAN: Continue current management as per GI re commendation Obesity, Class I, BMI 30-34.9 12/17/2018 12/21/2018 Hypophosphatemia 11/25/2018 04/29/2019 Last Assessment & Plan: Assessment: phos 2.6 PLAN: Replete phos>2.5 Postoperative ileus 11/25/2018 11/30/2018 Last Assessment & Plan: Assessment: resolving PLAN: Clears as tolerated Stoma intubated 11/26 Obesity, Class I, BMI 30-34.9 11/24/2018 12/17/2018 Last Assessment & Plan: PLAN: Nutrition consult Acute blood loss anemia 11/24/2018 04/30/2019 Last Assessment & Plan: Assessment: transfused 1 unit pRBC overn ight on POD0 PLAN: Trend H&H Resume dvt ppx heparin Bilateral IPCs and encourage ambulation Colon stricture 11/12/2018 12/17/2018 Physical deconditioning 03/30/2018 12/17/2018 Intervertebral disc disorder with radiculopathy of lumbar 12/17/2018 region 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 12/17/2018 Arteriosclerosis, mesenteric artery 09/24/201611/19 Family history of ischemic heart disease 04/16/2016 12/17/2018 Obesity (BMI 30-39.9) 04/16/2016 12/17/2018 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 10/1812/17/2018 Weakness of shoulder 11/01/2015 12/17/2018 Type 2 diabetes mellitus with complication 08/18/2015 12/17/2018 Incomplete tear of right rotator cuff 08/01/2015 Impingement syndrome of right shoulder 03/01/2015 1 Neuroendocrine malignancy 10/17/2014 12/17/2018 Spermatocele 10/17/2014 12/17/2018 Hydrocele sac 10/17/2014 12/17/2018 Testalgia 10/03/2014 12/17/2018 Hypertrophy of prostate with urinary obstruction and other 0 10/03/2014 08/18/2015 lower urinary tract symptoms (LUTS) Complex sleep apnea syndrome 06/07/2014 08/18/2015 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 12/17/2018 Vitamin D deficiency 04/25/2014 12/17/2018 B12 deficiency 04/25/2014 08/18/2015 Cognitive impairment 04/22/2014 12/17/2018 Overview: MOCA (04/2014) Last Assessment & Plan: Measurable cognitive impairment with modest impairment in function (predominantly community activities - no impairments in IADLs or BADLs). Though he screens positively for depression, he does not have enough depressive symptoms to meet crite polo for major depressive disorder. He has no anxiety, psychosis; he has a history of TIAs but no history of CVA. He does have vascular risk factors (though no foc al deficits on neurological examination today). He has no signs of spontaneous parkinsonism (though he does report occasional vertigo, urinary hesitancy/reduced flow/feelings of incomplete void, palpita tions - these could suggest an autonomic problem). 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 He is currently being t reated for mild hypothyroidism (this pro bably does not completely explain his symptoms but could be contributing). Review of his labwork does not otherwise reveal any significant contributing factors to his cognitive impairment. 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) along with B1 level - picture unclear; relationship of cogni tive impairment to fatigue unclear; ?paraneoplastic syndrome - will need to consider panel in the future - continue to monitor for development of new symptoms, progression of cognitive and functional impairment Urinary hesitancy 04/22/2014 12/17/2018 Last Assessment & Plan: Noted on history; unable to get PVR today - ordered - further recs based on results Anal fissure 05/17/2013 12/17/2018 Incisional hernia 08/31/2012 12/17/2018 Secondary and unspecified malignant neoplasm of intrathoraci c 07/19/2011 12/17/2018 lymph nodes Diarrhea 04/26/2011 12/17/2018 Abdominal wall bulge 02/26/2011 04/15/2018 Secondary and unspecified malignant neoplasm of intra-abdomi nal 12/27/2010 12/17/2018 lymph nodes Cancer of ilium 12/27/2010 12/17/2018 IBS (irritable bowel syndrome) 03/06/2010 9 Tinnitus, right 03/06/2010 12/17/2018 Lumbago 06/17/2008 12/17/2018 Enthesopathy of hip region 06/17/2008 12/17/2018 Stroke 02/18/2008 12/17/2018 Overview: TIA-questionable diagnosis GASTRITIS ANTRAL( W/O Hemorrhage) 10/24/20062018 DUODENITIS - NO HEMORRHAGE 10/24/2006 12/17/2018 ESOPHAGITIS REFLUX 10/24/2006 12/17/2018 Acute gastritis without mention of hemorrhage 10/24/2006 12/17/2018 MYALGIA AND MYOSITIS NOS 01/02/2006 06/06/2015 Sciatica 11/08/2005 12/17/2018 Radiculopathy, lumbar region 10/28/2005 12/17/2018 Spinal stenosis 10/28/2005 12/17/2018 Last Assessment & Plan: PLAN: Home cymbalta and gabapentin Displacement of lumbar 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th y 12/17/2018 Preop exam for internal medicine 016 Mesenteric mass 12/17/2018 Sleep apnea AHI 48 08/18/2015 S/P primary angioplasty with coronary stent 12/17/2018 Overview: PCI - 1999 Central sleep apnea 12/17/2018 Bladder cancer 12/17/2018 Overview: Superficial bladder cancer, status post TURP & mitomycin-C Problem Noted Date Resolved Date Ileostomy in place 06/21/2019 06/22/2019 Hyponatremia 04/30/2019 05/06/2019 Last Assessment & Plan: Assessment: Na 134 PLAN: Trend Na Continue specialized IVF Acute respiratory insufficiency, postoperative 04/27/2019 04/28/2019 Last Assessment & Plan: Assessment: intubated this morning PLAN: Extubate as able per SICU Delirium 04/27/2019 04/28/2019 Last Assessment & Plan: Assessment: intubated, sedated PLAN: Implement delirium nursing protocol Hypokalemia 02/04/2019 05/03/2019 Last Assessment & Plan: Assessment: K 3.5 PLAN: Replete k>4 per standing electrolyte pro tocol Trend K daily Altered bowel elimination due to intestinal ostomy 9 12/21/2018 Last Assessment & Plan: Assessment: Improving Negative stool studies GI following-on Questran and Imodium PLAN: Continue current management as per GI re commendation Obesity, Class I, BMI 30-34.9 12/17/2018 12/21/2018 Hypophosphatemia 11/25/2018 04/29/2019 Last Assessment & Plan: Assessment: phos 2.6 PLAN: Replete phos>2.5 Postoperative ileus 11/25/2018 11/30/2018 Last Assessment & Plan: Assessment: resolving PLAN: Clears as tolerated Stoma intubated 11/26 Obesity, Class I, BMI 30-34.9 11/24/2018 12/17/2018 Last Assessment & Plan: PLAN: Nutrition consult Acute blood loss anemia 11/24/2018 04/30/2019 Last Assessment & Plan: Assessment: transfused 1 unit pRBC overn ight on POD0 PLAN: Trend H&H Resume dvt ppx heparin Bilateral IPCs and encourage ambulation Colon stricture 11/12/2018 12/17/2018 Physical deconditioning 03/30/2018 12/17/2018 Intervertebral disc disorder with radiculopathy of lumbar 12/17/2018 region 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 12/17/2018 Arteriosclerosis, mesenteric artery 09/24/201611/19 Family history of ischemic heart disease 04/16/2016 12/17/2018 Obesity (BMI 30-39.9) 04/16/2016 12/17/2018 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 10/1812/17/2018 Weakness of shoulder 11/01/2015 12/17/2018 Type 2 diabetes mellitus with complication 08/18/2015 12/17/2018 Incomplete tear of right rotator cuff 08/01/2015 Impingement syndrome of right shoulder 03/01/2015 1 Neuroendocrine malignancy 10/17/2014 12/17/2018 Spermatocele 10/17/2014 12/17/2018 Hydrocele sac 10/17/2014 12/17/2018 Testalgia 10/03/2014 12/17/2018 Hypertrophy of prostate with urinary obstruction and other 0 10/03/2014 08/18/2015 lower urinary tract symptoms (LUTS) Complex sleep apnea syndrome 06/07/2014 08/18/2015 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 12/17/2018 Vitamin D deficiency 04/25/2014 12/17/2018 B12 deficiency 04/25/2014 08/18/2015 Cognitive impairment 04/22/2014 12/17/2018 Overview: MOCA (04/2014) Last Assessment & Plan: Measurable cognitive impairment with modest impairment in function (predominantly community activities - no impairments in IADLs or BADLs). Though he screens positively for depression, he does not have enough depressive symptoms to meet crite polo for major depressive disorder. He has no anxiety, psychosis; he has a history of TIAs but no history of CVA. He does have vascular risk factors (though no foc al deficits on neurological examination today). He has no signs of spontaneous parkinsonism (though he does report occasional vertigo, urinary hesitancy/reduced flow/feelings of incomplete void, palpita tions - these could suggest an autonomic problem). 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 He is currently being t reated for mild hypothyroidism (this pro bably does not completely explain his symptoms but could be contributing). Review of his labwork does not otherwise reveal any significant contributing factors to his cognitive impairment. 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) along with B1 level - picture unclear; relationship of cogni tive impairment to fatigue unclear; ?paraneoplastic syndrome - will need to consider panel in the future - continue to monitor for development of new symptoms, progression of cognitive and functional impairment Urinary hesitancy 04/22/2014 12/17/2018 Last Assessment & Plan: Noted on history; unable to get PVR today - ordered - further recs based on results Anal fissure 05/17/2013 12/17/2018 Incisional hernia 08/31/2012 12/17/2018 Secondary and unspecified malignant neoplasm of intrathoraci c 07/19/2011 12/17/2018 lymph nodes Diarrhea 04/26/2011 12/17/2018 Abdominal wall bulge 02/26/2011 04/15/2018 Secondary and unspecified malignant neoplasm of intra-abdomi nal 12/27/2010 12/17/2018 lymph nodes Cancer of ilium 12/27/2010 12/17/2018 IBS (irritable bowel syndrome) 03/06/2010 9 Tinnitus, right 03/06/2010 12/17/2018 Lumbago 06/17/2008 12/17/2018 Enthesopathy of hip region 06/17/2008 12/17/2018 Stroke 02/18/2008 12/17/2018 Overview: TIA-questionable diagnosis GASTRITIS ANTRAL( W/O Hemorrhage) 10/24/20062018 DUODENITIS - NO HEMORRHAGE 10/24/2006 12/17/2018 ESOPHAGITIS REFLUX 10/24/2006 12/17/2018 Acute gastritis without mention of hemorrhage 10/24/2006 12/17/2018 MYALGIA AND MYOSITIS NOS 01/02/2006 06/06/2015 Sciatica 11/08/2005 12/17/2018 Radiculopathy, lumbar region 10/28/2005 12/17/2018 Spinal stenosis 10/28/2005 12/17/2018 Last Assessment & Plan: PLAN: Home cymbalta and gabapentin Displacement of lumbar 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th y 12/17/2018 Preop exam for internal medicine 016 Mesenteric mass 12/17/2018 Sleep apnea AHI 48 08/18/2015 S/P primary angioplasty with coronary stent 12/17/2018 Overview: PCI - 1999 Central sleep apnea 12/17/2018 Bladder cancer 12/17/2018 Overview: Superficial bladder cancer, status post TURP & mitomycin-C Problem Noted Date Resolved Date Ileostomy in place 06/21/2019 06/22/2019 Hyponatremia 04/30/2019 05/06/2019 Last Assessment & Plan: Assessment: Na 134 PLAN: Trend Na Continue specialized IVF Acute respiratory insufficiency, postoperative 04/27/2019 04/28/2019 Last Assessment & Plan: Assessment: intubated this morning PLAN: Extubate as able per SICU Delirium 04/27/2019 04/28/2019 Last Assessment & Plan: Assessment: intubated, sedated PLAN: Implement delirium nursing protocol Hypokalemia 02/04/2019 05/03/2019 Last Assessment & Plan: Assessment: K 3.5 PLAN: Replete k>4 per standing electrolyte pro tocol Trend K daily Altered bowel elimination due to intestinal ostomy 9 12/21/2018 Last Assessment & Plan: Assessment: Improving Negative stool studies GI following-on Questran and Imodium PLAN: Continue current management as per GI re commendation Obesity, Class I, BMI 30-34.9 12/17/2018 12/21/2018 Hypophosphatemia 11/25/2018 04/29/2019 Last Assessment & Plan: Assessment: phos 2.6 PLAN: Replete phos>2.5 Postoperative ileus 11/25/2018 11/30/2018 Last Assessment & Plan: Assessment: resolving PLAN: Clears as tolerated Stoma intubated 11/26 Obesity, Class I, BMI 30-34.9 11/24/2018 12/17/2018 Last Assessment & Plan: PLAN: Nutrition consult Acute blood loss anemia 11/24/2018 04/30/2019 Last Assessment & Plan: Assessment: transfused 1 unit pRBC overn ight on POD0 PLAN: Trend H&H Resume dvt ppx heparin Bilateral IPCs and encourage ambulation Colon stricture 11/12/2018 12/17/2018 Physical deconditioning 03/30/2018 12/17/2018 Intervertebral disc disorder with radiculopathy of lumbar 12/17/2018 region 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 12/17/2018 Arteriosclerosis, mesenteric artery 09/24/201611/19 Family history of ischemic heart disease 04/16/2016 12/17/2018 Obesity (BMI 30-39.9) 04/16/2016 12/17/2018 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 10/1812/17/2018 Weakness of shoulder 11/01/2015 12/17/2018 Type 2 diabetes mellitus with complication 08/18/2015 12/17/2018 Incomplete tear of right rotator cuff 08/01/2015 Impingement syndrome of right shoulder 03/01/2015 1 Neuroendocrine malignancy 10/17/2014 12/17/2018 Spermatocele 10/17/2014 12/17/2018 Hydrocele sac 10/17/2014 12/17/2018 Testalgia 10/03/2014 12/17/2018 Hypertrophy of prostate with urinary obstruction and other 0 10/03/2014 08/18/2015 lower urinary tract symptoms (LUTS) Complex sleep apnea syndrome 06/07/2014 08/18/2015 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 12/17/2018 Vitamin D deficiency 04/25/2014 12/17/2018 B12 deficiency 04/25/2014 08/18/2015 Cognitive impairment 04/22/2014 12/17/2018 Overview: MOCA (04/2014) Last Assessment & Plan: Measurable cognitive impairment with modest impairment in function (predominantly community activities - no impairments in IADLs or BADLs). Though he screens positively for depression, he does not have enough depressive symptoms to meet crite polo for major depressive disorder. He has no anxiety, psychosis; he has a history of TIAs but no history of CVA. He does have vascular risk factors (though no foc al deficits on neurological examination today). He has no signs of spontaneous parkinsonism (though he does report occasional vertigo, urinary hesitancy/reduced flow/feelings of incomplete void, palpita tions - these could suggest an autonomic problem). 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 He is currently being t reated for mild hypothyroidism (this pro bably does not completely explain his symptoms but could be contributing). Review of his labwork does not otherwise reveal any significant contributing factors to his cognitive impairment. 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) along with B1 level - picture unclear; relationship of cogni tive impairment to fatigue unclear; ?paraneoplastic syndrome - will need to consider panel in the future - continue to monitor for development of new symptoms, progression of cognitive and functional impairment Urinary hesitancy 04/22/2014 12/17/2018 Last Assessment & Plan: Noted on history; unable to get PVR today - ordered - further recs based on results Anal fissure 05/17/2013 12/17/2018 Incisional hernia 08/31/2012 12/17/2018 Secondary and unspecified malignant neoplasm of intrathoraci c 07/19/2011 12/17/2018 lymph nodes Diarrhea 04/26/2011 12/17/2018 Abdominal wall bulge 02/26/2011 04/15/2018 Secondary and unspecified malignant neoplasm of intra-abdomi nal 12/27/2010 12/17/2018 lymph nodes Cancer of ilium 12/27/2010 12/17/2018 IBS (irritable bowel syndrome) 03/06/2010 9 Tinnitus, right 03/06/2010 12/17/2018 Lumbago 06/17/2008 12/17/2018 Enthesopathy of hip region 06/17/2008 12/17/2018 Stroke 02/18/2008 12/17/2018 Overview: TIA-questionable diagnosis GASTRITIS ANTRAL( W/O Hemorrhage) 10/24/20062018 DUODENITIS - NO HEMORRHAGE 10/24/2006 12/17/2018 ESOPHAGITIS REFLUX 10/24/2006 12/17/2018 Acute gastritis without mention of hemorrhage 10/24/2006 12/17/2018 MYALGIA AND MYOSITIS NOS 01/02/2006 06/06/2015 Sciatica 11/08/2005 12/17/2018 Radiculopathy, lumbar region 10/28/2005 12/17/2018 Spinal stenosis 10/28/2005 12/17/2018 Last Assessment & Plan: PLAN: Home cymbalta and gabapentin Displacement of lumbar 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th y 12/17/2018 Preop exam for internal medicine 016 Mesenteric mass 12/17/2018 Sleep apnea AHI 48 08/18/2015 S/P primary angioplasty with coronary stent 12/17/2018 Overview: PCI - 1999 Central sleep apnea 12/17/2018 Bladder cancer 12/17/2018 Overview: Superficial bladder cancer, status post TURP & mitomycin-C Problem Noted Date Resolved Date Ileostomy in place 06/21/2019 06/22/2019 Hyponatremia 04/30/2019 05/06/2019 Last Assessment & Plan: Assessment: Na 134 PLAN: Trend Na Continue specialized IVF Acute respiratory insufficiency, postoperative 04/27/2019 04/28/2019 Last Assessment & Plan: Assessment: intubated this morning PLAN: Extubate as able per SICU Delirium 04/27/2019 04/28/2019 Last Assessment & Plan: Assessment: intubated, sedated PLAN: Implement delirium nursing protocol Hypokalemia 02/04/2019 05/03/2019 Last Assessment & Plan: Assessment: K 3.5 PLAN: Replete k>4 per standing electrolyte pro tocol Trend K daily Altered bowel elimination due to intestinal ostomy 9 12/21/2018 Last Assessment & Plan: Assessment: Improving Negative stool studies GI following-on Questran and Imodium PLAN: Continue current management as per GI re commendation Obesity, Class I, BMI 30-34.9 12/17/2018 12/21/2018 Hypophosphatemia 11/25/2018 04/29/2019 Last Assessment & Plan: Assessment: phos 2.6 PLAN: Replete phos>2.5 Postoperative ileus 11/25/2018 11/30/2018 Last Assessment & Plan: Assessment: resolving PLAN: Clears as tolerated Stoma intubated 11/26 Obesity, Class I, BMI 30-34.9 11/24/2018 12/17/2018 Last Assessment & Plan: PLAN: Nutrition consult Acute blood loss anemia 11/24/2018 04/30/2019 Last Assessment & Plan: Assessment: transfused 1 unit pRBC overn ight on POD0 PLAN: Trend H&H Resume dvt ppx heparin Bilateral IPCs and encourage ambulation Colon stricture 11/12/2018 12/17/2018 Physical deconditioning 03/30/2018 12/17/2018 Intervertebral disc disorder with radiculopathy of lumbar 12/17/2018 region 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 12/17/2018 Arteriosclerosis, mesenteric artery 09/24/201611/19 Family history of ischemic heart disease 04/16/2016 12/17/2018 Obesity (BMI 30-39.9) 04/16/2016 12/17/2018 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 10/1812/17/2018 Weakness of shoulder 11/01/2015 12/17/2018 Type 2 diabetes mellitus with complication 08/18/2015 12/17/2018 Incomplete tear of right rotator cuff 08/01/2015 Impingement syndrome of right shoulder 03/01/2015 1 Neuroendocrine malignancy 10/17/2014 12/17/2018 Spermatocele 10/17/2014 12/17/2018 Hydrocele sac 10/17/2014 12/17/2018 Testalgia 10/03/2014 12/17/2018 Hypertrophy of prostate with urinary obstruction and other 0 10/03/2014 08/18/2015 lower urinary tract symptoms (LUTS) Complex sleep apnea syndrome 06/07/2014 08/18/2015 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 12/17/2018 Vitamin D deficiency 04/25/2014 12/17/2018 B12 deficiency 04/25/2014 08/18/2015 Cognitive impairment 04/22/2014 12/17/2018 Overview: MOCA (04/2014) Last Assessment & Plan: Measurable cognitive impairment with modest impairment in function (predominantly community activities - no impairments in IADLs or BADLs). Though he screens positively for depression, he does not have enough depressive symptoms to meet crite polo for major depressive disorder. He has no anxiety, psychosis; he has a history of TIAs but no history of CVA. He does have vascular risk factors (though no foc al deficits on neurological examination today). He has no signs of spontaneous parkinsonism (though he does report occasional vertigo, urinary hesitancy/reduced flow/feelings of incomplete void, palpita tions - these could suggest an autonomic problem). 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 He is currently being t reated for mild hypothyroidism (this pro bably does not completely explain his symptoms but could be contributing). Review of his labwork does not otherwise reveal any significant contributing factors to his cognitive impairment. 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) along with B1 level - picture unclear; relationship of cogni tive impairment to fatigue unclear; ?paraneoplastic syndrome - will need to consider panel in the future - continue to monitor for development of new symptoms, progression of cognitive and functional impairment Urinary hesitancy 04/22/2014 12/17/2018 Last Assessment & Plan: Noted on history; unable to get PVR today - ordered - further recs based on results Anal fissure 05/17/2013 12/17/2018 Incisional hernia 08/31/2012 12/17/2018 Secondary and unspecified malignant neoplasm of intrathoraci c 07/19/2011 12/17/2018 lymph nodes Diarrhea 04/26/2011 12/17/2018 Abdominal wall bulge 02/26/2011 04/15/2018 Secondary and unspecified malignant neoplasm of intra-abdomi nal 12/27/2010 12/17/2018 lymph nodes Cancer of ilium 12/27/2010 12/17/2018 IBS (irritable bowel syndrome) 03/06/2010 9 Tinnitus, right 03/06/2010 12/17/2018 Lumbago 06/17/2008 12/17/2018 Enthesopathy of hip region 06/17/2008 12/17/2018 Stroke 02/18/2008 12/17/2018 Overview: TIA-questionable diagnosis GASTRITIS ANTRAL( W/O Hemorrhage) 10/24/20062018 DUODENITIS - NO HEMORRHAGE 10/24/2006 12/17/2018 ESOPHAGITIS REFLUX 10/24/2006 12/17/2018 Acute gastritis without mention of hemorrhage 10/24/2006 12/17/2018 MYALGIA AND MYOSITIS NOS 01/02/2006 06/06/2015 Sciatica 11/08/2005 12/17/2018 Radiculopathy, lumbar region 10/28/2005 12/17/2018 Spinal stenosis 10/28/2005 12/17/2018 Last Assessment & Plan: PLAN: Home cymbalta and gabapentin Displacement of lumbar 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th y 12/17/2018 Preop exam for internal medicine 016 Mesenteric mass 12/17/2018 Sleep apnea AHI 48 08/18/2015 S/P primary angioplasty with coronary stent 12/17/2018 Overview: PCI - 1999 Central sleep apnea 12/17/2018 Bladder cancer 12/17/2018 Overview: Superficial bladder cancer, status post TURP & mitomycin-C Problem Noted Date Resolved Date Ileostomy in place 06/21/2019 06/22/2019 Hyponatremia 04/30/2019 05/06/2019 Last Assessment & Plan: Assessment: Na 134 PLAN: Trend Na Continue specialized IVF Acute respiratory insufficiency, postoperative 04/27/2019 04/28/2019 Last Assessment & Plan: Assessment: intubated this morning PLAN: Extubate as able per SICU Delirium 04/27/2019 04/28/2019 Last Assessment & Plan: Assessment: intubated, sedated PLAN: Implement delirium nursing protocol Hypokalemia 02/04/2019 05/03/2019 Last Assessment & Plan: Assessment: K 3.5 PLAN: Replete k>4 per standing electrolyte pro tocol Trend K daily Altered bowel elimination due to intestinal ostomy 9 12/21/2018 Last Assessment & Plan: Assessment: Improving Negative stool studies GI following-on Questran and Imodium PLAN: Continue current management as per GI re commendation Obesity, Class I, BMI 30-34.9 12/17/2018 12/21/2018 Hypophosphatemia 11/25/2018 04/29/2019 Last Assessment & Plan: Assessment: phos 2.6 PLAN: Replete phos>2.5 Postoperative ileus 11/25/2018 11/30/2018 Last Assessment & Plan: Assessment: resolving PLAN: Clears as tolerated Stoma intubated 11/26 Obesity, Class I, BMI 30-34.9 11/24/2018 12/17/2018 Last Assessment & Plan: PLAN: Nutrition consult Acute blood loss anemia 11/24/2018 04/30/2019 Last Assessment & Plan: Assessment: transfused 1 unit pRBC overn ight on POD0 PLAN: Trend H&H Resume dvt ppx heparin Bilateral IPCs and encourage ambulation Colon stricture 11/12/2018 12/17/2018 Physical deconditioning 03/30/2018 12/17/2018 Intervertebral disc disorder with radiculopathy of lumbar 12/17/2018 region 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 12/17/2018 Arteriosclerosis, mesenteric artery 09/24/201611/19 Family history of ischemic heart disease 04/16/2016 12/17/2018 Obesity (BMI 30-39.9) 04/16/2016 12/17/2018 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 10/1812/17/2018 Weakness of shoulder 11/01/2015 12/17/2018 Type 2 diabetes mellitus with complication 08/18/2015 12/17/2018 Incomplete tear of right rotator cuff 08/01/2015 Impingement syndrome of right shoulder 03/01/2015 1 Neuroendocrine malignancy 10/17/2014 12/17/2018 Spermatocele 10/17/2014 12/17/2018 Hydrocele sac 10/17/2014 12/17/2018 Testalgia 10/03/2014 12/17/2018 Hypertrophy of prostate with urinary obstruction and other 0 10/03/2014 08/18/2015 lower urinary tract symptoms (LUTS) Complex sleep apnea syndrome 06/07/2014 08/18/2015 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 12/17/2018 Vitamin D deficiency 04/25/2014 12/17/2018 B12 deficiency 04/25/2014 08/18/2015 Cognitive impairment 04/22/2014 12/17/2018 Overview: MOCA (04/2014) Last Assessment & Plan: Measurable cognitive impairment with modest impairment in function (predominantly community activities - no impairments in IADLs or BADLs). Though he screens positively for depression, he does not have enough depressive symptoms to meet crite polo for major depressive disorder. He has no anxiety, psychosis; he has a history of TIAs but no history of CVA. He does have vascular risk factors (though no foc al deficits on neurological examination today). He has no signs of spontaneous parkinsonism (though he does report occasional vertigo, urinary hesitancy/reduced flow/feelings of incomplete void, palpita tions - these could suggest an autonomic problem). 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 He is currently being t reated for mild hypothyroidism (this pro bably does not completely explain his symptoms but could be contributing). Review of his labwork does not otherwise reveal any significant contributing factors to his cognitive impairment. 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) along with B1 level - picture unclear; relationship of cogni tive impairment to fatigue unclear; ?paraneoplastic syndrome - will need to consider panel in the future - continue to monitor for development of new symptoms, progression of cognitive and functional impairment Urinary hesitancy 04/22/2014 12/17/2018 Last Assessment & Plan: Noted on history; unable to get PVR today - ordered - further recs based on results Anal fissure 05/17/2013 12/17/2018 Incisional hernia 08/31/2012 12/17/2018 Secondary and unspecified malignant neoplasm of intrathoraci c 07/19/2011 12/17/2018 lymph nodes Diarrhea 04/26/2011 12/17/2018 Abdominal wall bulge 02/26/2011 04/15/2018 Secondary and unspecified malignant neoplasm of intra-abdomi nal 12/27/2010 12/17/2018 lymph nodes Cancer of ilium 12/27/2010 12/17/2018 IBS (irritable bowel syndrome) 03/06/2010 9 Tinnitus, right 03/06/2010 12/17/2018 Lumbago 06/17/2008 12/17/2018 Enthesopathy of hip region 06/17/2008 12/17/2018 Stroke 02/18/2008 12/17/2018 Overview: TIA-questionable diagnosis GASTRITIS ANTRAL( W/O Hemorrhage) 10/24/20062018 DUODENITIS - NO HEMORRHAGE 10/24/2006 12/17/2018 ESOPHAGITIS REFLUX 10/24/2006 12/17/2018 Acute gastritis without mention of hemorrhage 10/24/2006 12/17/2018 MYALGIA AND MYOSITIS NOS 01/02/2006 06/06/2015 Sciatica 11/08/2005 12/17/2018 Radiculopathy, lumbar region 10/28/2005 12/17/2018 Spinal stenosis 10/28/2005 12/17/2018 Last Assessment & Plan: PLAN: Home cymbalta and gabapentin Displacement of lumbar 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th y 12/17/2018 Preop exam for internal medicine 016 Mesenteric mass 12/17/2018 Sleep apnea AHI 48 08/18/2015 S/P primary angioplasty with coronary stent 12/17/2018 Overview: PCI - 1999 Central sleep apnea 12/17/2018 Bladder cancer 12/17/2018 Overview: Superficial bladder cancer, status post TURP & mitomycin-C Problem Noted Date Resolved Date Ileostomy in place 06/21/2019 06/22/2019 Hyponatremia 04/30/2019 05/06/2019 Last Assessment & Plan: Assessment: Na 134 PLAN: Trend Na Continue specialized IVF Acute respiratory insufficiency, postoperative 04/27/2019 04/28/2019 Last Assessment & Plan: Assessment: intubated this morning PLAN: Extubate as able per SICU Delirium 04/27/2019 04/28/2019 Last Assessment & Plan: Assessment: intubated, sedated PLAN: Implement delirium nursing protocol Hypokalemia 02/04/2019 05/03/2019 Last Assessment & Plan: Assessment: K 3.5 PLAN: Replete k>4 per standing electrolyte pro tocol Trend K daily Altered bowel elimination due to intestinal ostomy 9 12/21/2018 Last Assessment & Plan: Assessment: Improving Negative stool studies GI following-on Questran and Imodium PLAN: Continue current management as per GI re commendation Obesity, Class I, BMI 30-34.9 12/17/2018 12/21/2018 Hypophosphatemia 11/25/2018 04/29/2019 Last Assessment & Plan: Assessment: phos 2.6 PLAN: Replete phos>2.5 Postoperative ileus 11/25/2018 11/30/2018 Last Assessment & Plan: Assessment: resolving PLAN: Clears as tolerated Stoma intubated 11/26 Obesity, Class I, BMI 30-34.9 11/24/2018 12/17/2018 Last Assessment & Plan: PLAN: Nutrition consult Acute blood loss anemia 11/24/2018 04/30/2019 Last Assessment & Plan: Assessment: transfused 1 unit pRBC overn ight on POD0 PLAN: Trend H&H Resume dvt ppx heparin Bilateral IPCs and encourage ambulation Colon stricture 11/12/2018 12/17/2018 Physical deconditioning 03/30/2018 12/17/2018 Intervertebral disc disorder with radiculopathy of lumbar 12/17/2018 region 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 12/17/2018 Arteriosclerosis, mesenteric artery 09/24/201611/19 Family history of ischemic heart disease 04/16/2016 12/17/2018 Obesity (BMI 30-39.9) 04/16/2016 12/17/2018 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 10/1812/17/2018 Weakness of shoulder 11/01/2015 12/17/2018 Type 2 diabetes mellitus with complication 08/18/2015 12/17/2018 Incomplete tear of right rotator cuff 08/01/2015 Impingement syndrome of right shoulder 03/01/2015 1 Neuroendocrine malignancy 10/17/2014 12/17/2018 Spermatocele 10/17/2014 12/17/2018 Hydrocele sac 10/17/2014 12/17/2018 Testalgia 10/03/2014 12/17/2018 Hypertrophy of prostate with urinary obstruction and other 0 10/03/2014 08/18/2015 lower urinary tract symptoms (LUTS) Complex sleep apnea syndrome 06/07/2014 08/18/2015 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 12/17/2018 Vitamin D deficiency 04/25/2014 12/17/2018 B12 deficiency 04/25/2014 08/18/2015 Cognitive impairment 04/22/2014 12/17/2018 Overview: MOCA (04/2014) Last Assessment & Plan: Measurable cognitive impairment with modest impairment in function (predominantly community activities - no impairments in IADLs or BADLs). Though he screens positively for depression, he does not have enough depressive symptoms to meet crite polo for major depressive disorder. He has no anxiety, psychosis; he has a history of TIAs but no history of CVA. He does have vascular risk factors (though no foc al deficits on neurological examination today). He has no signs of spontaneous parkinsonism (though he does report occasional vertigo, urinary hesitancy/reduced flow/feelings of incomplete void, palpita tions - these could suggest an autonomic problem). 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 He is currently being t reated for mild hypothyroidism (this pro bably does not completely explain his symptoms but could be contributing). Review of his labwork does not otherwise reveal any significant contributing factors to his cognitive impairment. 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) along with B1 level - picture unclear; relationship of cogni tive impairment to fatigue unclear; ?paraneoplastic syndrome - will need to consider panel in the future - continue to monitor for development of new symptoms, progression of cognitive and functional impairment Urinary hesitancy 04/22/2014 12/17/2018 Last Assessment & Plan: Noted on history; unable to get PVR today - ordered - further recs based on results Anal fissure 05/17/2013 12/17/2018 Incisional hernia 08/31/2012 12/17/2018 Secondary and unspecified malignant neoplasm of intrathoraci c 07/19/2011 12/17/2018 lymph nodes Diarrhea 04/26/2011 12/17/2018 Abdominal wall bulge 02/26/2011 04/15/2018 Secondary and unspecified malignant neoplasm of intra-abdomi nal 12/27/2010 12/17/2018 lymph nodes Cancer of ilium 12/27/2010 12/17/2018 IBS (irritable bowel syndrome) 03/06/2010 9 Tinnitus, right 03/06/2010 12/17/2018 Lumbago 06/17/2008 12/17/2018 Enthesopathy of hip region 06/17/2008 12/17/2018 Stroke 02/18/2008 12/17/2018 Overview: TIA-questionable diagnosis GASTRITIS ANTRAL( W/O Hemorrhage) 10/24/20062018 DUODENITIS - NO HEMORRHAGE 10/24/2006 12/17/2018 ESOPHAGITIS REFLUX 10/24/2006 12/17/2018 Acute gastritis without mention of hemorrhage 10/24/2006 12/17/2018 MYALGIA AND MYOSITIS NOS 01/02/2006 06/06/2015 Sciatica 11/08/2005 12/17/2018 Radiculopathy, lumbar region 10/28/2005 12/17/2018 Spinal stenosis 10/28/2005 12/17/2018 Last Assessment & Plan: PLAN: Home cymbalta and gabapentin Displacement of lumbar 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th y 12/17/2018 Preop exam for internal medicine 016 Mesenteric mass 12/17/2018 Sleep apnea AHI 48 08/18/2015 S/P primary angioplasty with coronary stent 12/17/2018 Overview: PCI - 1999 Central sleep apnea 12/17/2018 Bladder cancer 12/17/2018 Overview: Superficial bladder cancer, status post TURP & mitomycin-C Problem Noted Date Resolved Date Ileostomy in place 06/21/2019 06/22/2019 Hyponatremia 04/30/2019 05/06/2019 Last Assessment & Plan: Assessment: Na 134 PLAN: Trend Na Continue specialized IVF Acute respiratory insufficiency, postoperative 04/27/2019 04/28/2019 Last Assessment & Plan: Assessment: intubated this morning PLAN: Extubate as able per SICU Delirium 04/27/2019 04/28/2019 Last Assessment & Plan: Assessment: intubated, sedated PLAN: Implement delirium nursing protocol Hypokalemia 02/04/2019 05/03/2019 Last Assessment & Plan: Assessment: K 3.5 PLAN: Replete k>4 per standing electrolyte pro tocol Trend K daily Altered bowel elimination due to intestinal ostomy 9 12/21/2018 Last Assessment & Plan: Assessment: Improving Negative stool studies GI following-on Questran and Imodium PLAN: Continue current management as per GI re commendation Obesity, Class I, BMI 30-34.9 12/17/2018 12/21/2018 Hypophosphatemia 11/25/2018 04/29/2019 Last Assessment & Plan: Assessment: phos 2.6 PLAN: Replete phos>2.5 Postoperative ileus 11/25/2018 11/30/2018 Last Assessment & Plan: Assessment: resolving PLAN: Clears as tolerated Stoma intubated 11/26 Obesity, Class I, BMI 30-34.9 11/24/2018 12/17/2018 Last Assessment & Plan: PLAN: Nutrition consult Acute blood loss anemia 11/24/2018 04/30/2019 Last Assessment & Plan: Assessment: transfused 1 unit pRBC overn ight on POD0 PLAN: Trend H&H Resume dvt ppx heparin Bilateral IPCs and encourage ambulation Colon stricture 11/12/2018 12/17/2018 Physical deconditioning 03/30/2018 12/17/2018 Intervertebral disc disorder with radiculopathy of lumbar 12/17/2018 region 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 12/17/2018 Arteriosclerosis, mesenteric artery 09/24/201611/19 Family history of ischemic heart disease 04/16/2016 12/17/2018 Obesity (BMI 30-39.9) 04/16/2016 12/17/2018 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 10/1812/17/2018 Weakness of shoulder 11/01/2015 12/17/2018 Type 2 diabetes mellitus with complication 08/18/2015 12/17/2018 Incomplete tear of right rotator cuff 08/01/2015 Impingement syndrome of right shoulder 03/01/2015 1 Neuroendocrine malignancy 10/17/2014 12/17/2018 Spermatocele 10/17/2014 12/17/2018 Hydrocele sac 10/17/2014 12/17/2018 Testalgia 10/03/2014 12/17/2018 Hypertrophy of prostate with urinary obstruction and other 0 10/03/2014 08/18/2015 lower urinary tract symptoms (LUTS) Complex sleep apnea syndrome 06/07/2014 08/18/2015 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 12/17/2018 Vitamin D deficiency 04/25/2014 12/17/2018 B12 deficiency 04/25/2014 08/18/2015 Cognitive impairment 04/22/2014 12/17/2018 Overview: MOCA (04/2014) Last Assessment & Plan: Measurable cognitive impairment with modest impairment in function (predominantly community activities - no impairments in IADLs or BADLs). Though he screens positively for depression, he does not have enough depressive symptoms to meet crite polo for major depressive disorder. He has no anxiety, psychosis; he has a history of TIAs but no history of CVA. He does have vascular risk factors (though no foc al deficits on neurological examination today). He has no signs of spontaneous parkinsonism (though he does report occasional vertigo, urinary hesitancy/reduced flow/feelings of incomplete void, palpita tions - these could suggest an autonomic problem). 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 He is currently being t reated for mild hypothyroidism (this pro bably does not completely explain his symptoms but could be contributing). Review of his labwork does not otherwise reveal any significant contributing factors to his cognitive impairment. 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) along with B1 level - picture unclear; relationship of cogni tive impairment to fatigue unclear; ?paraneoplastic syndrome - will need to consider panel in the future - continue to monitor for development of new symptoms, progression of cognitive and functional impairment Urinary hesitancy 04/22/2014 12/17/2018 Last Assessment & Plan: Noted on history; unable to get PVR today - ordered - further recs based on results Anal fissure 05/17/2013 12/17/2018 Incisional hernia 08/31/2012 12/17/2018 Secondary and unspecified malignant neoplasm of intrathoraci c 07/19/2011 12/17/2018 lymph nodes Diarrhea 04/26/2011 12/17/2018 Abdominal wall bulge 02/26/2011 04/15/2018 Secondary and unspecified malignant neoplasm of intra-abdomi nal 12/27/2010 12/17/2018 lymph nodes Cancer of ilium 12/27/2010 12/17/2018 IBS (irritable bowel syndrome) 03/06/2010 9 Tinnitus, right 03/06/2010 12/17/2018 Lumbago 06/17/2008 12/17/2018 Enthesopathy of hip region 06/17/2008 12/17/2018 Stroke 02/18/2008 12/17/2018 Overview: TIA-questionable diagnosis GASTRITIS ANTRAL( W/O Hemorrhage) 10/24/20062018 DUODENITIS - NO HEMORRHAGE 10/24/2006 12/17/2018 ESOPHAGITIS REFLUX 10/24/2006 12/17/2018 Acute gastritis without mention of hemorrhage 10/24/2006 12/17/2018 MYALGIA AND MYOSITIS NOS 01/02/2006 06/06/2015 Sciatica 11/08/2005 12/17/2018 Radiculopathy, lumbar region 10/28/2005 12/17/2018 Spinal stenosis 10/28/2005 12/17/2018 Last Assessment & Plan: PLAN: Home cymbalta and gabapentin Displacement of lumbar 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th y 12/17/2018 Preop exam for internal medicine 016 Mesenteric mass 12/17/2018 Sleep apnea AHI 48 08/18/2015 S/P primary angioplasty with coronary stent 12/17/2018 Overview: PCI - 1999 Central sleep apnea 12/17/2018 Bladder cancer 12/17/2018 Overview: Superficial bladder cancer, status post TURP & mitomycin-C Problem Noted Date Resolved Date Ileostomy in place 06/21/2019 06/22/2019 Hyponatremia 04/30/2019 05/06/2019 Last Assessment & Plan: Assessment: Na 134 PLAN: Trend Na Continue specialized IVF Acute respiratory insufficiency, postoperative 04/27/2019 04/28/2019 Last Assessment & Plan: Assessment: intubated this morning PLAN: Extubate as able per SICU Delirium 04/27/2019 04/28/2019 Last Assessment & Plan: Assessment: intubated, sedated PLAN: Implement delirium nursing protocol Hypokalemia 02/04/2019 05/03/2019 Last Assessment & Plan: Assessment: K 3.5 PLAN: Replete k>4 per standing electrolyte pro tocol Trend K daily Altered bowel elimination due to intestinal ostomy 9 12/21/2018 Last Assessment & Plan: Assessment: Improving Negative stool studies GI following-on Questran and Imodium PLAN: Continue current management as per GI re commendation Obesity, Class I, BMI 30-34.9 12/17/2018 12/21/2018 Hypophosphatemia 11/25/2018 04/29/2019 Last Assessment & Plan: Assessment: phos 2.6 PLAN: Replete phos>2.5 Postoperative ileus 11/25/2018 11/30/2018 Last Assessment & Plan: Assessment: resolving PLAN: Clears as tolerated Stoma intubated 11/26 Obesity, Class I, BMI 30-34.9 11/24/2018 12/17/2018 Last Assessment & Plan: PLAN: Nutrition consult Acute blood loss anemia 11/24/2018 04/30/2019 Last Assessment & Plan: Assessment: transfused 1 unit pRBC overn ight on POD0 PLAN: Trend H&H Resume dvt ppx heparin Bilateral IPCs and encourage ambulation Colon stricture 11/12/2018 12/17/2018 Physical deconditioning 03/30/2018 12/17/2018 Intervertebral disc disorder with radiculopathy of lumbar 12/17/2018 region 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 12/17/2018 Arteriosclerosis, mesenteric artery 09/24/201611/19 Family history of ischemic heart disease 04/16/2016 12/17/2018 Obesity (BMI 30-39.9) 04/16/2016 12/17/2018 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 10/1812/17/2018 Weakness of shoulder 11/01/2015 12/17/2018 Type 2 diabetes mellitus with complication 08/18/2015 12/17/2018 Incomplete tear of right rotator cuff 08/01/2015 Impingement syndrome of right shoulder 03/01/2015 1 Neuroendocrine malignancy 10/17/2014 12/17/2018 Spermatocele 10/17/2014 12/17/2018 Hydrocele sac 10/17/2014 12/17/2018 Testalgia 10/03/2014 12/17/2018 Hypertrophy of prostate with urinary obstruction and other 0 10/03/2014 08/18/2015 lower urinary tract symptoms (LUTS) Complex sleep apnea syndrome 06/07/2014 08/18/2015 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 12/17/2018 Vitamin D deficiency 04/25/2014 12/17/2018 B12 deficiency 04/25/2014 08/18/2015 Cognitive impairment 04/22/2014 12/17/2018 Overview: MOCA (04/2014) Last Assessment & Plan: Measurable cognitive impairment with modest impairment in function (predominantly community activities - no impairments in IADLs or BADLs). Though he screens positively for depression, he does not have enough depressive symptoms to meet crite polo for major depressive disorder. He has no anxiety, psychosis; he has a history of TIAs but no history of CVA. He does have vascular risk factors (though no foc al deficits on neurological examination today). He has no signs of spontaneous parkinsonism (though he does report occasional vertigo, urinary hesitancy/reduced flow/feelings of incomplete void, palpita tions - these could suggest an autonomic problem). 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 He is currently being t reated for mild hypothyroidism (this pro bably does not completely explain his symptoms but could be contributing). Review of his labwork does not otherwise reveal any significant contributing factors to his cognitive impairment. 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) along with B1 level - picture unclear; relationship of cogni tive impairment to fatigue unclear; ?paraneoplastic syndrome - will need to consider panel in the future - continue to monitor for development of new symptoms, progression of cognitive and functional impairment Urinary hesitancy 04/22/2014 12/17/2018 Last Assessment & Plan: Noted on history; unable to get PVR today - ordered - further recs based on results Anal fissure 05/17/2013 12/17/2018 Incisional hernia 08/31/2012 12/17/2018 Secondary and unspecified malignant neoplasm of intrathoraci c 07/19/2011 12/17/2018 lymph nodes Diarrhea 04/26/2011 12/17/2018 Abdominal wall bulge 02/26/2011 04/15/2018 Secondary and unspecified malignant neoplasm of intra-abdomi nal 12/27/2010 12/17/2018 lymph nodes Cancer of ilium 12/27/2010 12/17/2018 IBS (irritable bowel syndrome) 03/06/2010 9 Tinnitus, right 03/06/2010 12/17/2018 Lumbago 06/17/2008 12/17/2018 Enthesopathy of hip region 06/17/2008 12/17/2018 Stroke 02/18/2008 12/17/2018 Overview: TIA-questionable diagnosis GASTRITIS ANTRAL( W/O Hemorrhage) 10/24/20062018 DUODENITIS - NO HEMORRHAGE 10/24/2006 12/17/2018 ESOPHAGITIS REFLUX 10/24/2006 12/17/2018 Acute gastritis without mention of hemorrhage 10/24/2006 12/17/2018 MYALGIA AND MYOSITIS NOS 01/02/2006 06/06/2015 Sciatica 11/08/2005 12/17/2018 Radiculopathy, lumbar region 10/28/2005 12/17/2018 Spinal stenosis 10/28/2005 12/17/2018 Last Assessment & Plan: PLAN: Home cymbalta and gabapentin Displacement of lumbar 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th y 12/17/2018 Preop exam for internal medicine 016 Mesenteric mass 12/17/2018 Sleep apnea AHI 48 08/18/2015 S/P primary angioplasty with coronary stent 12/17/2018 Overview: PCI - 1999 Central sleep apnea 12/17/2018 Bladder cancer 12/17/2018 Overview: Superficial bladder cancer, status post TURP & mitomycin-C Assessments Diagnosis Abdominal pain, unspecified abdominal lo cation Diagnosis Crohn's disease of small intestine with other complication (HCC) - Primary Stage 3 chronic kidney disease (HCC) Vitamin B12 deficiency Other B-complex deficiencies Crohn's disease of small intestine with intestinal obstruction (HCC) Regional enteritis of small intestine Abnormal results of liver function studi es Nonspecific abnormal results of liver fu nction study Carcinoid tumor, unspecified site, unspe cified whether malignant Diagnosis Radiculopathy, lumbar region - Primary Thoracic or lumbosacral neuritis or radi culitis, unspecified Diagnosis ALEXIS (obstructive sleep apnea) - Primary Obstructive sleep apnea (adult) (pediatr ic) Nocturnal oxygen desaturation Idiopathic sleep related nonobstructive alveolar hypoventilation Lumbosacral neuritis Thoracic or lumbosacral neuritis or radi culitis, unspecified Diagnosis Crohn's disease of small intestine with intestinal obstruction (HCC) Regional enteritis of small intestine Diagnosis Fatigue, unspecified type Diagnosis Crohn's disease of small intestine with complication (HCC) - Primary Regional enteritis of small intestine Crohn's disease of both small and large intestine with other complication (HCC) Diagnosis Carcinoid tumor, unspecified site, unspe cified whether malignant - Primary Vitamin B12 deficiency Other B-complex deficiencies Iron deficiency anemia, unspecified iron deficiency anemia type Iron malabsorption Other specified intestinal malabsorption Crohn's disease of small intestine with other complication (HCC) Stage 3 chronic kidney disease (HCC) Diagnosis Controlled type 2 diabetes mellitus with diabetic polyneuropathy, with long-term current use of insulin (HCC) - Primary Mixed hyperlipidemia Essential hypertension Unspecified essential hypertension Crohn's disease of small intestine with intestinal obstruction (HCC) Regional enteritis of small intestine Stage 3 chronic kidney disease (HCC) Other spondylosis with radiculopathy, trisha mbar region Elevated liver enzymes Other nonspecific abnormal serum enzyme levels Vitamin B12 deficiency Other B-complex deficiencies Need for vaccination Need for prophylactic vaccination and in oculation against unspecified single disease Diagnosis Intervertebral disc disorders with radic ulopathy, lumbar region - Primary Lumbosacral neuritis Thoracic or lumbosacral neuritis or radi culitis, unspecified Diagnosis Abdominal pain, unspecified abdominal lo cation Lumbosacral neuritis Thoracic or lumbosacral neuritis or radi culitis, unspecified Advance Directives No Advanced Directives Records Found Documents on File Type Date Recorded Patient Environmental Systems Coordinator Explanati on Advance Directive(s) 08/15/2016 8:14 AM Advance Directive(s) 06/03/2017 9:50 AM Advance Directive(s) 06/10/2017 11:29 AM Advance Directive(s) 06/13/2017 9:23 AM Advance Directive(s) 07/08/2017 4:26 PM Advance Directive(s) 12/15/2017 7:01 AM Advance Directive(s) 06/04/2018 9:19 AM Advance Directive(s) 06/22/2018 10:43 AM Advance Directive(s) 07/29/2018 11:08 AM Advance Directive(s) 10/15/2018 10:32 AM Advance Directive(s) 11/12/2018 9:12 AM Advance Directive(s) 12/16/2018 8:01 PM Advance Directive(s) 01/04/2019 6:22 PM Advance Directive(s) 01/13/2019 10:31 AM Advance Directive(s) 01/26/2019 3:16 PM Advance Directive(s) 03/20/2019 10:52 AM Advance Directive(s) 03/20/2019 8:37 PM Advance Directive(s) 04/08/2019 8:09 AM Advance Directive(s) 04/21/2019 9:24 AM Advance Directive(s) 04/22/2019 6:10 PM Advance Directive(s) 04/23/2019 3:43 PM Advance Directive(s) 06/15/2019 10:51 AM Advance Directive(s) 06/21/2019 12:28 PM Advance Directive(s) 07/26/2019 1:30 PM Advance Directive(s) 10/12/2019 11:46 AM Advance Directive(s) 10/18/2019 9:26 AM Latest Code Status on File Code Status Date Activated Date Inactivated Comments DNR-CCA 12/18/2018 2:36 PM 12/22/2018 7:22 PM DNR Order Discussed With: Patient Documents on File Type Date Recorded Patient Environmental Systems Coordinator Explanati on Advance Directive(s) 08/15/2016 8:14 AM Advance Directive(s) 06/03/2017 9:50 AM Advance Directive(s) 06/10/2017 11:29 AM Advance Directive(s) 06/13/2017 9:23 AM Advance Directive(s) 07/08/2017 4:26 PM Advance Directive(s) 12/15/2017 7:01 AM Advance Directive(s) 06/04/2018 9:19 AM Advance Directive(s) 06/22/2018 10:43 AM Advance Directive(s) 07/29/2018 11:08 AM Advance Directive(s) 10/15/2018 10:32 AM Advance Directive(s) 11/12/2018 9:12 AM Advance Directive(s) 12/16/2018 8:01 PM Advance Directive(s) 01/04/2019 6:22 PM Advance Directive(s) 01/13/2019 10:31 AM Advance Directive(s) 01/26/2019 3:16 PM Advance Directive(s) 03/20/2019 10:52 AM Advance Directive(s) 03/20/2019 8:37 PM Advance Directive(s) 04/08/2019 8:09 AM Advance Directive(s) 04/21/2019 9:24 AM Advance Directive(s) 04/22/2019 6:10 PM Advance Directive(s) 04/23/2019 3:43 PM Advance Directive(s) 06/15/2019 10:51 AM Advance Directive(s) 06/21/2019 12:28 PM Advance Directive(s) 07/26/2019 1:30 PM Documents on File Type Date Recorded Patient Environmental Systems Coordinator Explanati on Advance Directive(s) 08/15/2016 8:14 AM Advance Directive(s) 06/03/2017 9:50 AM Advance Directive(s) 06/10/2017 11:29 AM Advance Directive(s) 06/13/2017 9:23 AM Advance Directive(s) 07/08/2017 4:26 PM Advance Directive(s) 12/15/2017 7:01 AM Advance Directive(s) 06/04/2018 9:19 AM Advance Directive(s) 06/22/2018 10:43 AM Advance Directive(s) 07/29/2018 11:08 AM Advance Directive(s) 10/15/2018 10:32 AM Advance Directive(s) 11/12/2018 9:12 AM Advance Directive(s) 12/16/2018 8:01 PM Advance Directive(s) 01/04/2019 6:22 PM Advance Directive(s) 01/13/2019 10:31 AM Advance Directive(s) 01/26/2019 3:16 PM Advance Directive(s) 03/20/2019 10:52 AM Advance Directive(s) 03/20/2019 8:37 PM Advance Directive(s) 04/08/2019 8:09 AM Advance Directive(s) 04/21/2019 9:24 AM Advance Directive(s) 04/22/2019 6:10 PM Advance Directive(s) 04/23/2019 3:43 PM Advance Directive(s) 06/15/2019 10:51 AM Advance Directive(s) 06/21/2019 12:28 PM Advance Directive(s) 07/26/2019 1:30 PM Latest Code Status on File Code Status Date Activated Date Inactivated Comments DNR-CCA 12/18/2018 2:36 PM 12/22/2018 7:22 PM Documents on File Type Date Recorded Patient Environmental Systems Coordinator Explanati on Advance Directive(s) 08/15/2016 8:14 AM Advance Directive(s) 06/03/2017 9:50 AM Advance Directive(s) 06/10/2017 11:29 AM Advance Directive(s) 06/13/2017 9:23 AM Advance Directive(s) 07/08/2017 4:26 PM Advance Directive(s) 12/15/2017 7:01 AM Advance Directive(s) 06/04/2018 9:19 AM Advance Directive(s) 06/22/2018 10:43 AM Advance Directive(s) 07/29/2018 11:08 AM Advance Directive(s) 10/15/2018 10:32 AM Advance Directive(s) 11/12/2018 9:12 AM Advance Directive(s) 12/16/2018 8:01 PM Advance Directive(s) 01/04/2019 6:22 PM Advance Directive(s) 01/13/2019 10:31 AM Advance Directive(s) 01/26/2019 3:16 PM Advance Directive(s) 03/20/2019 10:52 AM Advance Directive(s) 03/20/2019 8:37 PM Advance Directive(s) 04/08/2019 8:09 AM Advance Directive(s) 04/21/2019 9:24 AM Advance Directive(s) 04/22/2019 6:10 PM Advance Directive(s) 04/23/2019 3:43 PM Advance Directive(s) 06/15/2019 10:51 AM Advance Directive(s) 06/21/2019 12:28 PM Advance Directive(s) 07/26/2019 1:30 PM Advance Directive(s) 10/12/2019 11:46 AM Documents on File Type Date Recorded Patient Environmental Systems Coordinator Explanati on Advance Directive(s) 08/15/2016 8:14 AM Advance Directive(s) 06/03/2017 9:50 AM Advance Directive(s) 06/10/2017 11:29 AM Advance Directive(s) 06/13/2017 9:23 AM Advance Directive(s) 07/08/2017 4:26 PM Advance Directive(s) 12/15/2017 7:01 AM Advance Directive(s) 06/04/2018 9:19 AM Advance Directive(s) 06/22/2018 10:43 AM Advance Directive(s) 07/29/2018 11:08 AM Advance Directive(s) 10/15/2018 10:32 AM Advance Directive(s) 11/12/2018 9:12 AM Advance Directive(s) 12/16/2018 8:01 PM Advance Directive(s) 01/04/2019 6:22 PM Advance Directive(s) 01/13/2019 10:31 AM Advance Directive(s) 01/26/2019 3:16 PM Advance Directive(s) 03/20/2019 10:52 AM Advance Directive(s) 03/20/2019 8:37 PM Advance Directive(s) 04/08/2019 8:09 AM Advance Directive(s) 04/21/2019 9:24 AM Advance Directive(s) 04/22/2019 6:10 PM Advance Directive(s) 04/23/2019 3:43 PM Advance Directive(s) 06/15/2019 10:51 AM Advance Directive(s) 06/21/2019 12:28 PM Advance Directive(s) 07/26/2019 1:30 PM Advance Directive(s) 10/12/2019 11:46 AM Advance Directive(s) 10/18/2019 9:26 AM Documents on File Type Date Recorded Patient Environmental Systems Coordinator Explanati on Advance Directive(s) 08/15/2016 8:14 AM Advance Directive(s) 06/03/2017 9:50 AM Advance Directive(s) 06/10/2017 11:29 AM Advance Directive(s) 06/13/2017 9:23 AM Advance Directive(s) 07/08/2017 4:26 PM Advance Directive(s) 12/15/2017 7:01 AM Advance Directive(s) 06/04/2018 9:19 AM Advance Directive(s) 06/22/2018 10:43 AM Advance Directive(s) 07/29/2018 11:08 AM Advance Directive(s) 10/15/2018 10:32 AM Advance Directive(s) 11/12/2018 9:12 AM Advance Directive(s) 12/16/2018 8:01 PM Advance Directive(s) 01/04/2019 6:22 PM Advance Directive(s) 01/13/2019 10:31 AM Advance Directive(s) 01/26/2019 3:16 PM Advance Directive(s) 03/20/2019 10:52 AM Advance Directive(s) 03/20/2019 8:37 PM Advance Directive(s) 04/08/2019 8:09 AM Advance Directive(s) 04/21/2019 9:24 AM Advance Directive(s) 04/22/2019 6:10 PM Advance Directive(s) 04/23/2019 3:43 PM Advance Directive(s) 06/15/2019 10:51 AM Advance Directive(s) 06/21/2019 12:28 PM Advance Directive(s) 07/26/2019 1:30 PM Advance Directive(s) 10/12/2019 11:46 AM Advance Directive(s) 10/18/2019 9:26 AM Advance Directive(s) 11/19/2019 4:11 PM Advance Directive(s) 11/19/2019 4:18 PM Summary Purpose Family History No Family History Records FoundNo Family History Records FoundNo Family History Records FoundNo Family History Records FoundNo Family History Records FoundNo Family History Records Found History of Present Illness Idris Mora - 09/29/2019 2:33 PM EDT PATIENT NAME: Venkata Leal. CLINIC NO: [id number]. ATTENDING PHYSICIAN: Idris Mora MD. DATE OF SERVICE:?09/29/2019. ?? DIAGNOSIS: Crohn's disease with malabsorption and pancreatic insufficiency- S/p?diverging ileostomy?reversal ? 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 ? 3)?Superficial bladder cancer;?status post chemotherapy with mitomycin-C;?in?complete?remission. ? 4)?iron malabsorption?&?vitamin B-12?&?vitamin D malabsorption/deficiency ?? HPI: Mr. Venkata Leal is a?69-year-old gentleman with carcinoid tumor. The patient was referred to Dr. Amauri Keller for further evaluation of his mesenteric soft tissue mass. The patient had a octreotide scan?on November 22, 2010 which showed a mesenteric mass with high concentration of somatostatin re ceptors and two additional foci of activity in the distal jejunum. There were multiple subcentimetermesenteric lymph nodes with increased uptake consistent with metastasis. There was no increased activity in the liver, spleen, or large bowel. No evidence of lytic or sclerotic lesions in the skeleton. ?? The patient underwent an exploratory laparotomy on December 06, 2010. The patient had 55 cm of his distal jejunum/proximal ileum resected. The postoperative course was unremarkable. The specimen of the ileum with mesenteric mass on segmental resection showed two foci of well-differentiated, neuroendocrine carcinoma within the ileum. Four of 8 lymph nodes were positive for metastatic disease with regional ileitis due to chronic ischemia. The tumor penetrated through the muscularis propria or T3. Therewas extracapsular pily extension, perineural invasion, and vascular invasion. ?? The patient had been having significant diarrhea for the last year. His original pathology and foundthat on the biopsy specimen there was evidence of active ileitis. ?The pathologist who read that specimen thought that it was due to so- called ischemic ileitis. ?CT enterography which showed an area of persistent wall thickening in the distal ileum and felt that this could be consistent with Crohn'sdisease. ?? While this is certainly true it could be consistent with other things as well for example scar tissue or even?possibly further neuroendocrine tumor which this patient had prior to resection. ?We attempted to get a small bowel capsule exam but unfortunately the capsule remained in his stomach for the entire time and therefore the area of small intestine could not be read.??The patient for financial reasons declined to repeat the capsule study because it might have cost?him as much as $5000 and he wasnot prepared or able to pay that amount.?He was started on an empiric course of prednisone 40mg oncedaily 2 months ago. He has been off prednisone for several months, and started?Pentasa and Creon?forhis Crohn's disease and pancreatic insufficiency. ?? Current treatment:?Sandostatin LAR injection &?Vitmain B12 injection ?? Interim history:??Patient is having recurrent bloating and chronic abdominal pain but not any worse.He has loose stool but no diarrhea. No nausea or vomiting. He started ENTYVIO last month for inflammatory bowel disease. ? He has no shortness of breath, legs?swelling or tenderness. He also denies any urinary symptom or hematuria. His follow-up visit with neurology showed no evidence of recurrent bladder cancer. ? Overall, he is doing well with Sandostatin vitamin B12 injection except for fatigue. ? ? REVIEW OF SYSTEMS: ?? CONSTITUTIONAL: ??denies ?fevers, chills, nightsweats, unintended weight loss; HEENT: ?Denies frequent or severe heaches, nasal congestion/sinus symptoms, problematic allergy problems. EYES: ?No diplopia or blurry vision. CARDIOVASCULAR: ?No chest pain, dyspnea, palpitations, orthopnea, PND, ankle edema. PULM: ?No dyspnea, unexplained cough. GI: ?No dysphagia/odynophagia, problematic reflux, constipation, diarrhea, changes in stool habits, hematochezia, melena. : ?No new urinary complaints, including dysuria, gross hematuria or pyuria. NEURO: ?No new balance problems, peripheral weakness/paresthesias or numbness of concern. MUSC-SKEL: ?No new joint pain, swelling, or erythema. PSY: ?No concerns regarding depression, anxiety or panic. INTEGUMENTARY: ?No new skin changes (rash, new or changing mole, new growth) ? ? PHYSICAL EXAMINATION:?69?year-old gentleman in no acute distress Performance status:?80% BP 123/63 Pulse 70 Temp (Src) 97.1 (Temporal) Wt 216 lb (98.0kg) HEENT: Head is normocephalic, atraumatic. Sclerae white, conjunctivae pink. PEERL. EOMs are intact. Oropharynx is benign.? LYMPHATICS: There is no palpable adenopathy in the neck, supraclavicular region, axillae, or groin. LUNGS: Lungs are clear to percussion and auscultation. HEART: Heart is normal without murmurs, gallops, or rubs. ABDOMEN:?Nontender,?normal bowel sounds, no abdominal distention,?without organomegaly. No masses can be palpated,.?No guarding or rebound tenderness. EXTREMITIES: Are no?edema.?No petechiae. NEUROLOGIC: Exam is physiologic. ?? LABS:? Component Latest Ref Rng & Units 09/22/2019 WBC 3.70 - 11.00 k/uL 6.01 RBC 4.20 - 6.00 m/uL 3.98 (L) Hemoglobin 13.0 - 17.0 g/dL 12.5 (L) Hematocrit 39.0 - 51.0 % 37.2 (L) MCV 80.0 - 100.0 fL 93.5 MCH 26.0 - 34.0 pG 31.4 MCHC 30.5 - 36.0 g/dL 33.6 RDW-CV 11.5 - 15.0 % 15.7 (H) Platelet Count 150 - 400 k/uL 125 (L) MPV 9.0 - 12.7 fL 11.9 Neut% % 75.7 Abs Neut (ANC) 1.45 - 7.50 k/uL 4.55 Lymph% % 12.6 Abs Lymph 1.00 - 4.00 k/uL 0.76 (L) Zapata% % 8.2 Abs Zapata <0.87 k/uL 0.49 Eosin% % 2.5 Abs Eosin <0.46 k/uL 0.15 Baso% % 1.0 Abs Baso <0.11 k/uL 0.06 Nucleated Reds 0 /100 WBC 0.0 Absolute nRBC <0.01 k/uL <0.01 Diff Type Auto Diff Component Latest Ref Rng & Units 09/22/2019 Protein, Total 6.3 - 8.0 g/dL 6.8 Albumin 3.9 - 4.9 g/dL 3.9 Calcium 8.5 - 10.2 mg/dL 9.5 Bilirubin, Total 0.2 - 1.3 mg/dL 0.4 Alkaline Phosphatase 38 - 113 U/L 147 (H) AST 14 - 40 U/L 88 (H) Glucose 74 - 99 mg/dL 123 (H) BUN 9 - 24 mg/dL 19 Creatinine 0.73 - 1.22 mg/dL 1.85 (H) Sodium 136 - 144 mmol/L 138 Potassium 3.7 - 5.1 mmol/L 4.1 Chloride 97 - 105 mmol/L 101 CO2 22 - 30 mmol/L 26 Anion Gap 9 - 18 mmol/L 11 ALT 10 - 54 U/L 72 (H) eGFR- 44 eGFR-All Other Races . 36 LD 135 - 225 U/L 192 Component Latest Ref Rng & Units 09/22/2019 Chromogranin A <98 ng/mL 1,080 (H) ASSESSMENT:?69-year-old gentleman with history of Crohn's disease?and pancreatic insufficiency, ? 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 STABLE disease ??- Chromogranin A has been up & down over the last year without recurrences. ? 2) Malabsorption syndrome?( iron into fat-soluble vitamins,?vitamin B12, vitamin D )?secondary to above?and Crohn's disease. ? 3) Anemia of chronic disease?from chronic renal failure stage?3? ? 4) post-operative pain possible from adhesion; no sign of small bowel obstruction. ? PLAN:? -?Continue Sandostatin?LAR 30 mg?monthly?x3? -?Continue vitamin B12 injection at home -?Repeat CBC,?CMP, LDH, chromogranin A and office visit in? 3 months - Repeat scans only if indicated. repeat ultrasound liver in 3 months - Increase oral hydration. -?Follow-up with GI,?Dr. Henley?for treatment Crohn's disease. ? Idris Mora MD ? Cc:??Analisa Garvey ?Dr. Serafin Henley documented in this encounterJavier Marcial - 09/30/2019 11:10 AM EDTAMBULATORY TELEPHONE VISIT Venkata Leal has consented to this telephone encounter. Persons Present: patient Chief Complaint/Reason: Low back pain and right leg pain HPI: Patient schedule appointment today due to worsening pain in the low back and right leg. In the past had pain into the left lower limb had epidural injection and has been better for several years. At this time reports symptoms have been worsening over the last several months Data Reviewed: Reviewed patient's lumbar MRI imaging which shows evidence of several degenerative disc levels. No severe nerve compression, however, there is lateral recess stenosis at the L4-L5 level Assessment: (M54.16) Radiculopathy, lumbar region (primary encounter diagnosis) Plan: I had a long discussion with the patient regarding current symptoms and findings. at this time patient with worsening symptoms suggestive of L5 nerve irritation. We will schedule patient for right L5-S1 transforaminal epidural steroid injection Total Time Spent: 12 minutes Javier Marcial, DO documented in this Angeline Esquivel - 10/26/2019 3:01 PM EDT Follow Up Visit SUBJECTIVE 69 year old male with Crohn's disease here for follow-up. Last seen 08/31/19. S/p diverting loop ileostomy with Dr. Teixeira on 06/21/19. Past medical history of Gomez cirrhosis, carcinoid tumor on Sandostatin, diagnosed about 8 years ago,bladder cancer, history of resection and chemo, on surveillance every 6 months, diabetes, hypertension, chronic back pain is here for evaluation of Crohn's disease and symptoms. Patient had history of multiple resections, latest one in April s/p ex lap with MICAH > 3 hours + ileo-colonic resection with end-to-end anastomosis + small intestine repair x 2 + DLI. He had high output ileostomy status post surgery and had ileostomy closure in June 2019. Patient was started on Entyvio in August and has received 2 doses and scheduled for third induction dose tomorrow. Patient reports mild to moderate right upper quadrant abdominal pain, takes oxycodone twice a daily,takes Bentyl, Lomotil and Imodium. Patient has tried Pentasa in the past without any improvement. Patient also reports diarrhea, 3-5 bowel movements a day, nonbloody, liquid to semisolid in consistency. He reports fatigue, tired and sleeping a lot. He has flat affect. Denies any nausea or vomiting. Denies any chest pain or shortness of breath. Ambulates with the help of walker or cane. Denies any weight loss and eats only 1-2 times a day. Lives at home with his . Current medications: -Entyvio (3rd induction dose scheduled for 10/27/19) -Imodium -Lomotil -vitamin B12/week -Colestid 1 gm BID -bentyl 10 mg -Zofran PRN CBC: WBC (k/uL) Date Value 09/22/2019 6.01 Hematocrit (%) Date Value 09/22/2019 37.2 (L) MCV (fL) Date Value 09/22/2019 93.5 Platelet Count (k/uL) Date Value 09/22/2019 125 (L) Lymph% (%) Date Value 09/22/2019 12.6 Hepatic Function Panel: Albumin (g/dL) Date Value 09/22/2019 3.9 Bilirubin, Total (mg/dL) Date Value 09/22/2019 0.4 Bilirubin, Conjug (mg/dL) Date Value 05/03/2019 <0.2 Alkaline Phosphatase (U/L) Date Value 09/22/2019 147 (H) AST (U/L) Date Value 09/22/2019 88 (H) ALT (U/L) Date Value 09/22/2019 72 (H) Protein, Total (g/dL) Date Value 09/22/2019 6.8 Current Clinical Symptoms # of bowel movements daily: 3 during day and 1 episode of nocturnal urgency. Having at least 2 days of diarrhea/week. # of liquid stools daily: 1 Consistency: loose Bloody bowel movements: no Urgency: yes Abdominal pain: yes, right mid abdomen daily Abdominal distention: yes Nausea/vomiting: yes Weight loss over last 3 months: no General well-being: poor, reporting constant generalized fatigue Current Outpatient Medications Medication Sig Dispense Refill ? metoprolol tartrate, short acting, (LOPRESSOR) 25 mg tablet Take 1 tablet by mouth twice daily. 180 tablet 1 ? sertraline (ZOLOFT) 100 mg tablet Take 1 tablet by mouth once daily. 90 tablet 3 ? famotidine (PEPCID) 20 mg tablet Take 1 tablet by mouth twice daily. 180 tablet 1 ? loperamide (IMODIUM A-D) 2 mg cap(s) Take 2 capsules by mouth before meals and at bedtime. Take 2 tablets 30-60 minutes before meals and at bedtime as needed for diarrhea, titrate for output. 720 capsule 0 ? diphenoxylate-atropine (LOMOTIL) 2.5-0.025 mg per tablet Take 1-2 tablets before meals and at bedtime as needed for diarrhea not to exceed 8 tablets daily 240 tablet 1 ? BIPAP Please dispense an overnight pulse oximetry to be done 2 consecutive nights while on BiPAP without oxygen. 1 Device 0 ? cholecalciferol, Vitamin D3, (VITAMIN D3) 1,250 mcg (50,000 unit) cap capsule Take 1 capsule by mouth two times a week. Takes Friday and . 24 capsule 0 ? oxyCODONE IR (ROXICODONE) 5 mg immediate release tablet Take 1 tablet by mouth every 8 hours as needed for Pain for up to 30 days. 60 tablet 0 ? BIPAP Settings Increase IPAP 21, EPAP 16, and BUR 10 cm H2O, suitable mask per pt preference, chinstrap, head gear, humidity, tubing, lifetime supplies. G47.33 ALEXIS 1 Device 0 ? sildenafil (VIAGRA) 100 mg tablet Take 1 tablet by mouth as needed. Take 30 to 60min before sexualactivity 10 tablet 1 ? vedolizumab (ENTYVIO) 300 mg injection Administer 300 mg IV on weeks 0, 2, 6, then every 8 weeks thereafter. No premeds required. Nurse to insert peripheral IV prior to infusions. 300 Each 1 ? cyanocobalamin (VITAMIN B-12) 1,000 mcg/mL Inject 1 mL subcutaneously one time a week. 4 mL 5 ? Syringe with Needle, Safety (BD INTEGRA) 3 mL 25 gauge x 5/8 syrg Inject 1 Syringe subcutaneouslyone time a week. 25 Each 0 ? colestipol (COLESTID) 1 gram tablet Take 1 tablet by mouth twice daily. 60 tablet 5 ? clopidogrel (PLAVIX) 75 mg tablet Take 1 tablet by mouth once daily. PLEASE CALL OFFICE [phone] TO SCHEDULE APPOINTMENT FOR FURTHER REFILLS 90 tablet 0 ? levothyroxine (SYNTHROID) 137 mcg tablet TAKE 1 TABLET EVERY DAY ON AN EMPTY STOMACH FOR THYROID 90 tablet 3 ? BIPAP Change settings: Bilevel PAP 20/15 cmH2O with humidification and back up rate 10 with 2 L bled in HS. 1 Device 11 ? spironolactone (ALDACTONE) 25 mg tablet Take 1 tablet by mouth once daily. 90 tablet 3 ? tamsulosin ER (FLOMAX) 0.4 mg Take 1 capsule by mouth twice daily. 280 capsule 3 ? sodium bicarbonate 650 mg tablet Take 1 tablet by mouth once daily. 30 tablet 5 ? dicyclomine (BENTYL) 10 mg capsule Take 1 capsule by mouth four times daily as needed (abd cramping). 360 capsule 3 ? amLODIPine (NORVASC) 5 mg tablet Take 1 tablet by mouth once daily. 90 tablet 3 ? gabapentin (NEURONTIN) 300 mg capsule Take 1 capsule by mouth at bedtime as needed for up to 180 days. (Patient taking differently: Take 300 mg by mouth at bedtime as needed (Patient takes 2 100 mg tablets in the am and 1 300 mg tablet in the pm). ) 90 capsule 1 ? gabapentin (NEURONTIN) 100 mg capsule Take 2 capsules by mouth every morning for 180 days. 180 capsule 1 ? Insulin Mackay, Disposable, (BD ULTRA-FINE TIESHA PEN NEEDLE) 32 gauge x 5/32 Refer to insulin sliding scale 100 Each 2 ? insulin aspart protamine-insulin aspart (NovoLOG 70-30) 100 unit/mL flexpen INJECT 10 UNITS SUBCUTANEOUSLY BEFORE BREAKFAST AND 6 UNITS BEFORE EVENING MEAL (Patient taking differently: INJECT 25 UNITS SUBCUTANEOUSLY BEFORE BREAKFAST AND 35 UNITS BEFORE EVENING MEAL ) 60 mL 3 ? blood sugar diagnostic (PingMDTOUCH VERIO) test strip Use three times daily to check blood sugar (Patient taking differently: Use three times daily to check blood sugar E11.65 ) 150 Strip 1 ? lancets (ONE TOUCH DELICA) 33 gauge misc Use three times daily to check blood sugar (Patient taking differently: Use three times daily to check blood sugar E11.65 ) 150 Each 1 ? furosemide (LASIX) 20 mg tablet Take 20 mg by mouth once daily. 5 days per week ? rosuvastatin (CRESTOR) 5 mg tablet Take 5 mg by mouth two times a week. Friday and ? lszlix-nxkervym-bejqaet (CREON 24) 24,000-76,000 -120,000 unit cpDR Take 2 capsules by mouth twicedaily with meals. (Patient taking differently: Take 2 capsules by mouth. With meals (usually 2 mealsper day, sometimes 3 meals) ) 360 capsule 3 ? ondansetron (ZOFRAN) 8 mg tablet Take 1 tablet by mouth every 8 hours as needed. 20 tablet 2 ? pantoprazole DR (PROTONIX) 20 mg tablet Take 1 tablet by mouth daily before breakfast. Take on empty stomach, 1/2 hr before meal. 90 tablet 3 ? lanolin (SKIN PROTECTIVE PASTE) pste Apply 1 application to affected area twice daily. ? DULoxetine (CYMBALTA) 20 mg capsule Take 1 capsule by mouth once daily. 90 capsule 3 ? finasteride (PROSCAR) 5 mg tablet Take 1 tablet by mouth once daily. 90 tablet 3 ? COMPOUNDED PRESCRIPTION Please dispense a rollator with a seat. 1 Each 0 ? acetaminophen (TYLENOL) 325 mg tablet Take 2 tablets by mouth every 6 hours as needed for Pain. ? nicotine polacrilex (NICORETTE) 2 mg gum Take 1 Each by mouth every 2 hours as needed. ? melatonin 10 mg subl Dissolve 1 tablet under the tongue at bedtime as needed. ? Wheel Chair diana Wheelchair with foot supports Dx: spinal stenosis, displacement of lumbar intervertebral disc 1 Device 0 ? OCTREOTIDE ACETATE (SANDOSTATIN INJECTION) by INJECTION(UNSPECIFIED PARENTERAL ROUTES) route once every month. ? COMPOUNDED PRESCRIPTION Lumbar support brace Dx: M48.06, M54.31, M51.26 1 Each 0 ? Lancing Device misc 1 Each twice daily. Dx: Type 2 DM - Uncontrolled E11.65 Insulin: Yes (Patient taking differently: 1 Each three times daily. Dx: Type 2 DM - Uncontrolled E11.65 Insulin: Yes ) 100 Each 11 No current facility-administered medications for this visit. ALLERGIES Allergen Reactions ? Lipitor [Atorvastat* Intolerance myalgias ? Zocor [Simvastatin] Intolerance myalgias ? Novacain [Other] Intolerance Headache when it wears off ? Lescol [Fluvastatin* Intolerance myalgia PHYSICAL EXAMINATION BP 114/63 Pulse 59 Temp (Src) 97.7 (Temporal) Ht 5' 10 (1.78m) Wt 214 lb (97.1kg) SpO2 97% BMI 30.71 kg/(m^2). General Appearance: alert, oriented x 3, pleasant and in no acute distress Heart:regular rate and rhythm, no murmurs or gallops Abdomen: Not distended. Normal bowel sounds. Soft and non-tender. No masses or organomegaly. Skin: no rashes or lesions Lymph:No cervical, axillary, supraclavicular, or inguinal adenopathy. Assessment IMPRESSION Difficult case of a man with extensive surgery for Crohn's, carcinoid, who has ongoing symptoms of diarrhea and abd pain. Likely this is multifactorial with shortening of his gut due to surgery, possibly active Crohn's, as well as bile salt diarrhea, possibly bacterial overgrowth. The pain is likely scar (adhesive disease). PLAN 1. He will received the third induction dose tomorrow of Entyvio 2. Plan to do a colonoscopy this fall and hope to reach the ileum (apparently last scope could not) 3. Assuming Entyvio is working continue it. If active Crohn's consider optimizing dose to every 4 weeks. If normal but sx's then consider Xifaxan or Vancomycin. 4. It's possible some of his sx's are carcinoid and he is seeing oncology soon. Loyd Bacon MD October 26, 2019 3:01 PM documented in this encounterAnalisa Garvey - 11/05/2019 1:57 PM EDT Reason for Visit Patient presents with: Recheck: 2 month follow up Venkata Leal is a 69 year old male who presents here today for Above Complaints. Health Maintenance HEPATITIS A(1 of 2 - Risk 2-dose series) HEPATITIS B(1 of 3 - Risk 3-dose series) SHINGRIX VACCINE(2 of 3) LUNG CANCER SCREENING INFLUENZA(1) HPI Patient had a in injection 2 weeks ago of the spine for the pain and he notes that it really helped his right side, and so they will be doing the left side. Patient is able to walk much better because the back feels better. Recently saw GI he has been taking the Entyvio, this has been the 3rd session, he still has diarrhea, and there is pain in the area of the stoma, he will be checked again with the colonoscopy..., take colestid daily and take vit b12 weeks. Did not start the colestipol. Ileostomy has healed well, he has had abdominal pain since from surgery and is taking time to heal. His. He needs his thyroid rechecked as he is very fatigued Stays stable mostly, healing from surgery slow and steady ? Blood sugar levels are running in the range of 120, every once in a while it goes down to 140/150, patient is not supposed to have any raw vegetables.... he is using a sliding scale She saw the global project manager recently and she is monitoring his issues. ? Creatinine is more or less stable. He had a virtual appointment with dental laboratory technician. ? Patient notes he is able to walk further than he walked before, if he is out from more than 3 hours,then it is his limit. He has to rest for that time. ? His is trying to get him out and build up his stamina ? Patient got up and walked, and he did well except that he is feels a little dizzy on and off. ? HTN: Compliant with medications. Denies any chest pain, palpitations, or edema. No SOB. Doesn't check BP at home generally. Careful with diet to avoid salt, trying to eat more fruits and vegetables, exercises regularly. ? ? Patient needs his oxycodone script for the next 2 months in a weeks tome No problem-specific Assessment & Plan notes found for this encounter. PAST MEDICAL HISTORY Diagnosis Date ? Acute gastritis without mention of hemorrhage 10/24/2006 ? Acute renal failure superimposed on stage 3 chronic kidney disease (HCC) ? Anal fissure 05/17/2013 ? Antiplatelet or antithrombotic long-term use 11/23/2018 ? Arteriosclerosis, mesenteric artery (HCC) 09/24/2016 ? Bladder cancer (HCC) Superficial bladder cancer, status post TURP & mitomycin-C ? BPH (benign prostatic hyperplasia) 10/03/2014 ? Cancer of ilium (HCC) 12/27/2010 ? Carcinoid tumor s/p removal and octreotide therapy ? Chronic pain 10/19/2015 ? CKD (chronic kidney disease) stage 3, GFR 30-59 ml/min (HCC) bland UA, baseline Cr in high 1 range ? Cognitive impairment 04/22/2014 MOCA (04/2014) 30 ? Colon stricture (HCC) 11/12/2018 ? Coronary atherosclerosis of unspecified type of vessel, gakona or graft PCI - 1998 ? Crohn's disease (HCC) 11/23/2018 ? Depression 11/23/2018 ? Diarrhea ? DUODENITIS - NO HEMORRHAGE 10/24/2006 ? Enthesopathy of hip region 06/17/2008 ? Esophageal reflux ? Essential hypertension ? Family history of ischemic heart disease 04/16/2016 ? GASTRITIS ANTRAL( W/O Hemorrhage) 10/24/2006 ? GERD (gastroesophageal reflux disease) GERD ? History of bladder cancer 11/23/2018 ? HTN (hypertension) ? Hydrocele sac 10/17/2014 ? Hypothyroidism ? IBS (irritable bowel syndrome) 03/06/2010 ? Impingement syndrome of right shoulder 03/01/2015 ? Incisional hernia 08/31/2012 ? Incomplete tear of right rotator cuff 08/01/2015 ? Insomnia 11/24/2018 ? Internal hemorrhoids without mention of complication ? Intervertebral disc disorder with radiculopathy of lumbar region 05/28/2017 ? Iron deficiency anemia 01/12/2019 ? Irritable bowel syndrome ? Lipoma of other specified sites ? Mesenteric mass ? GOMEZ (nonalcoholic steatohepatitis) cirrhosis on liver biopsy ? Neuroendocrine malignancy (HCC) 10/17/2014 ? Obesity, Class I, BMI 30-34.9 11/24/2018 ? ALEXIS (obstructive sleep apnea) DME [facility] - Oxygen order for 02 bleed in DME is [facility] ? Other and unspecified hyperlipidemia ? Pancreatic insufficiency ? Peripheral vascular disease, unspecified (HCC) 01/31/2005 stents in the lower extremities b/l ? Physical deconditioning 03/30/2018 ? Radiculopathy, lumbar region 10/28/2005 ? S/P primary angioplasty with coronary stent PCI - 1998 ? Sciatica 11/08/2005 ? 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 ? Spermatocele 10/17/2014 ? Spinal stenosis 10/28/2005 ? Stroke (HCC) 2009 TIA-questionable diagnosis ? Testalgia 10/03/2014 ? Tinnitus, right 03/06/2010 ? Type 2 diabetes mellitus with complication (HCC) 08/18/2015 ? Unspecified essential hypertension ? Urinary hesitancy 04/22/2014 ? Vitamin B12 deficiency ? Vitamin D deficiency PAST SURGICAL HISTORY Procedure Laterality Date ? APPENDECTOMY 1971 ? BALLN ANGIOPLASTY PERC,FEM-POP 1997 ? BALLN ANGIOPLASTY PERC,FEM-POP 09/24/06 ? CATHETER ART SYS-1ST ORD, ABDOM, PELVIC, OR LOWER 1997 ? CATHETER ART SYS-1ST ORD, ABDOM, PELVIC, OR LOWER 1997 with stent ? CATHETER ART SYS-1ST ORD, ABDOM, PELVIC, OR LOWER 09/24/06 ? COLONOSCOP W/ OR W/O BRSH SPEC 05/30/2004 Colonoscopy ? COLONOSCOP W/ OR W/O BRSH SPEC 05/18/14 Colonoscopy ? EGD W/O BRS SPECIMEN W/BX 10/24/06 Esophagiti,gastritis,duodenitis ? EGD W/O OR W/BRUSH/WASH 10/26/1998 EGD ? HEART SURGERY HX Stent 1995 ? KNEE SCOPE,DIAGNOSTIC Right 2003 Arthroscopy, knee ? LAP INC HERNIA REPAIR 09-29-12 ? LAPAROSCOPIC CHOLEYCYSTECTOMY 08 Cholecystectomy, lap ? PAST SURGICAL HISTORY OF 12-08-10 small bowel resection [facility] main - cancerious ? PAST SURGICAL HISTORY OF 06/19/2015 Left eye cataract surgery ? PAST SURGICAL HISTORY OF 04/26/2019 Exploratory laparotomy. Extensive lysis of adhesions, greater than 3 hours. Ileal colonic resectionwith hand-sewn end-to-end anastomosis. Small intestinal repair x2. On-table colonoscopy. Diverting loop ileostomy. TAP block. Internal retention sutures. Modifier #22. ? PAST SURGICAL HISTORY OF 02/01/2019 Diverting loop ileostomy closure ? PAST SURGICAL HISTORY OF 11/23/2018 1. Exploratory laparotomy with a repeat resection of his neoterminal ileum and ileocolic anastomosis. 2. Diverting loop ileostomy ? PAST SURGICAL HISTORY OF 06/21/2019 Diverting loop ileostomy closure. ? REMOVAL OF TONSILS,<12 Y/O Tonsillectomy ? REPAIR COMPL ROTATOR CUFF AVULSN,CHR Right 09/06/15 Subacromial decompression, rotator cuff repair, and labral debridement ? REPAIR ING HERNIA,5+Y/O,REDUCIBL Hernia repair, inguinal lt FAMILY HISTORY Problem Relation Age of Onset ? Diabetes Mother ? other (Uterine cancer) Mother ? Heart Father [place] ? Hypertension Father ? Heart Sister 60age ? Stroke Sister ? Diabetes Sister 65age ? other (fibromyalgia) Sister x 4 , 2 sisters with kidney disease ? Diabetes Sister oral meds Social History Tobacco Use ? Smoking status: Former Smoker Packs/day: 1.00 Years: 35.00 Pack years: 35.00 Types: Cigarettes Start date: 02/17/1971 Quit date: 02/17/2006 Years since quittin.7 ? Smokeless tobacco: Never Used ? Tobacco comment: currently chews nicotine gum Substance Use Topics ? Alcohol use: No Alcohol/week: 1.7 standard drinks Frequency: Never Drinks per session: Patient refused Binge frequency: Never ? Drug use: No Past medical history, appointments, medications, allergies reviewed. Pertinent Lab/Diagnostic Studies are reviewed and discussed today Current Outpatient Medications: ? BIPAP ? oxyCODONE IR (ROXICODONE) 5 mg immediate release tablet ? metoprolol tartrate, short acting, (LOPRESSOR) 25 mg tablet ? sertraline (ZOLOFT) 100 mg tablet ? famotidine (PEPCID) 20 mg tablet ? loperamide (IMODIUM A-D) 2 mg cap(s) ? diphenoxylate-atropine (LOMOTIL) 2.5-0.025 mg per tablet ? cholecalciferol, Vitamin D3, (VITAMIN D3) 1,250 mcg (50,000 unit) cap capsule ? BIPAP ? sildenafil (VIAGRA) 100 mg tablet ? vedolizumab (ENTYVIO) 300 mg injection ? cyanocobalamin (VITAMIN B-12) 1,000 mcg/mL ? Syringe with Needle, Safety (BD INTEGRA) 3 mL 25 gauge x 5/8 syrg ? colestipol (COLESTID) 1 gram tablet ? clopidogrel (PLAVIX) 75 mg tablet ? levothyroxine (SYNTHROID) 137 mcg tablet ? BIPAP ? spironolactone (ALDACTONE) 25 mg tablet ? tamsulosin ER (FLOMAX) 0.4 mg ? sodium bicarbonate 650 mg tablet ? dicyclomine (BENTYL) 10 mg capsule ? amLODIPine (NORVASC) 5 mg tablet ? gabapentin (NEURONTIN) 300 mg capsule ? gabapentin (NEURONTIN) 100 mg capsule ? Insulin Mackay, Disposable, (BD ULTRA-FINE TIESHA PEN NEEDLE) 32 gauge x 5/32 ? insulin aspart protamine-insulin aspart (NovoLOG 70-30) 100 unit/mL flexpen ? blood sugar diagnostic (ONETOUCH VERIO) test strip ? lancets (ONE TOUCH DELICA) 33 gauge misc ? furosemide (LASIX) 20 mg tablet ? rosuvastatin (CRESTOR) 5 mg tablet ? ltahjp-ldrtviza-ifluhvi (CREON 24) 24,000-76,000 -120,000 unit cpDR ? ondansetron (ZOFRAN) 8 mg tablet ? pantoprazole DR (PROTONIX) 20 mg tablet ? lanolin (SKIN PROTECTIVE PASTE) pste ? DULoxetine (CYMBALTA) 20 mg capsule ? finasteride (PROSCAR) 5 mg tablet ? COMPOUNDED PRESCRIPTION ? acetaminophen (TYLENOL) 325 mg tablet ? nicotine polacrilex (NICORETTE) 2 mg gum ? melatonin 10 mg subl ? Wheel Chair diana ? OCTREOTIDE ACETATE (SANDOSTATIN INJECTION) ? COMPOUNDED PRESCRIPTION ? Lancing Device misc Review of Systems CONSTITUTIONAL: No fevers, chills night sweats, unintended weight loss CARDIOVASCULAR: No chest pain, dyspnea, palpitations, orthopnea, PND, ankle edema. PULM: No dyspnea, unexplained cough. GI: No dysphagia/odynophagia, problematic reflux, constipation, diarrhea, changes in stool habits, hematochezia, melena. : No new urinary complaints, including dysuria, gross hematuria or pyuria. NEURO: No new balance problems, peripheral weakness/paresthesias or numbness of concern. Physical Exam BP 122/68 Pulse 68 Resp 16 Wt 98.4 kg (217 lb) SpO2 100% BMI 31.14 kg/m? General appearance: Well appearing, alert, in no acute distress, well nourished. Skin: Skin color, texture, turgor normal, no suspicious rashes or lesions Head: Normocephalic, no masses, lesions, tenderness or abnormalities Eyes: Anicteric sclera. Pupils are equally round and reactive to light. Extraocular movements are intact. Lungs: Lungs clear to auscultation. No wheezing, rhonchi, rales Heart: RRR without murmur, gallop, or rubs. Extremities: No deformities, edema, skin discoloration, clubbing or cyanosis. Good capillary refill. ASSESSMENT/PLAN: 1. Controlled type 2 diabetes mellitus with diabetic polyneuropathy, with long- term current use of insulin (HCC) - ICD9: 250.60, 357.2, V58.67, ICD10: E11.42, Z79.4 (primary diagnosis) Seems fairly Controlled. - Continue current medications 2. Mixed hyperlipidemia - ICD9: 272.2, ICD10: E78.2 - good control - Continue current medication. 3. Essential hypertension - ICD9: 401.9, ICD10: I10 - good control - Recommended regular aerobic exercise. - Recommend home blood pressure monitoring, to bring results in on next visit - Goal of BP <130/80 4. Crohn's disease of small intestine with intestinal obstruction (HCC) - ICD9: 555.0, ICD10: K50.012 He is struggling with abdominal pain, hoping that we will be able 5. Stage 3 chronic kidney disease (HCC) - ICD9: 585.3, ICD10: N18.3 CKD: Stage 3, recent labs reviewed, shows GFR is stable, not significantly changed from previous labs. Discussed the importance of staying off the NSAIDs naproxen, motrin, brufen, aleve etc and contrast., adequate hydration Keeping blood pressure under control. 6. Other spondylosis with radiculopathy, lumbar region - ICD9: 721.3, ICD10: M47.26 He is taking injections and it has been really helping, with pain and increased mobility. Main concern is the endurance and lack of stamina Patient should be able to take the inactivated flu shot ANALISA GARVEY MD documented in this encounter Reason for Referral Status Reason Specialty Diagnoses / Referred By Referred To Procedures Contact Contact Authorized PCP Requested Diagnoses Radiculopathy, lumbar region Javier Marcial Referral Procedures CONSULT TO SPINE INTERVENTION NEW PATIENT VISIT LEVEL [id number] [place] [address] Status Reason Specialty Diagnoses / Referred By Referred To Procedures Contact Contact Authorized PCP Requested Diagnoses Intervertebral disc disorders with radiculopathy, lumbar region Javier Marcial Referral Procedures CONSULT TO SPINE INTERVENTION NEW PATIENT VISIT LEVEL [id number] [place] [address] Medications Administered Section Inactive Administered Medications - up to 3 most recent administrations Medication Order MAR Action Action Date Dose Rate Site octreotide LAR 30 mg depot Given 10/27/2019 3:50 PM 30 mg Buttocks, Right (monthly) injection EDT (SandoSTATIN LAR) 30 mg, INTRAMUSCULAR, ONCE, 1 dose, Fri10/27/19 at 1430, REFRIGERATE - PROTECT FROM LIGHT, vedolizumab 300 mg in NaCl New Bag/Syringe/Bottle 10/27/2019 2:50 PM 300 mg 0.9% 250 mL (ENTYVIO) EDT 300 mg, INTRAVENOUS, Administer over 30 Minutes, ONCE, 1 dose, Fri10/27/19 at 1430, Approx Total Volume: 280 mL After the infusion is complete flush with 30 mL of sterile 0.9% Sodium Chloride Injection. Refrigerate. EXP: (24 HR), Additional Source Comments FOR RECORDS PERTAINING TO PATIENTS WHO ARE OR HAVE BEEN ENROLLED IN A CHEMICAL DEPENDENCY/SUBSTANCE ABUSE PROGRAM, SOME INFORMATION MAY BE OMITTED. This clinical summary was aggregated from multiple sources. Caution should be exercised in using it in the provision of clinical care. This summary normalizes information from multiple sources, and as a consequence, information in this document may materially changethe coding, format and clinical context of patient data. In addition, data may be omittedin some cases. CLINICAL DECISIONS SHOULD BE BASED ON THE PRIMARY CLINICAL RECORDS. [facility] provides no warranty or guarantee of the accuracy or completeness of information in this document. UNRECOGNIZED CONTENT PROVIDED BELOW FOR UNRECOGNIZED SECTION Source Comments In the event this information is protected by the Federal Confidentiality of Alcohol and Drug Abuse Patient Records regulations: The Federal rules restrict any use of the information to criminally investigate or prosecute any alcohol or drug abuse patient.[facility] the event this information is protected by the Federal Confidentiality of Alcohol and Drug Abuse Patient Records regulations: The Federal rules restrict any use of the information to criminally investigate or prosecute any alcohol or drug abuse patient.[facility] the event this information is protected by the Federal Confidentiality of Alcohol and Drug Abuse Patient Records regulations: The Federal rules restrict any use of the information to criminally investigate or prosecute any alcohol or drug abuse patient.[facility] the event this information is protected by the Federal Confidentiality of Alcohol and Drug Abuse Patient Records regulations: The Federal rules restrict any use of the information to criminally investigate or prosecute any alcohol or drug abuse patient.[facility] the event this information is protected by the Federal Confidentiality of Alcohol and Drug Abuse Patient Records regulations: The Federal rules restrict any use of the information to criminally investigate or prosecute any alcohol or drug abuse patient.[facility] the event this information is protected by the Federal Confidentiality of Alcohol and Drug Abuse Patient Records regulations: The Federal rules restrict any use of the information to criminally investigate or prosecute any alcohol or drug abuse patient.[facility] the event this information is protected by the Federal Confidentiality of Alcohol and Drug Abuse Patient Records regulations: The Federal rules restrict any use of the information to criminally investigate or prosecute any alcohol or drug abuse patient.[facility] the event this information is protected by the Federal Confidentiality of Alcohol and Drug Abuse Patient Records regulations: The Federal rules restrict any use of the information to criminally investigate or prosecute any alcohol or drug abuse patient.[facility] the event this information is protected by the Federal Confidentiality of Alcohol and Drug Abuse Patient Records regulations: The Federal rules restrict any use of the information to criminally investigate or prosecute any alcohol or drug abuse patient.[facility] the event this information is protected by the Federal Confidentiality of Alcohol and Drug Abuse Patient Records regulations: The Federal rules restrict any use of the information to criminally investigate or prosecute any alcohol or drug abuse patient.[facility] the event this information is protected by the Federal Confidentiality of Alcohol and Drug Abuse Patient Records regulations: The Federal rules restrict any use of the information to criminally investigate or prosecute any alcohol or drug abuse patient.[facility] the event this information is protected by the Federal Confidentiality of Alcohol and Drug Abuse Patient Records regulations: The Federal rules restrict any use of the information to criminally investigate or prosecute any alcohol or drug abuse patient.[facility] the event this information is protected by the Federal Confidentiality of Alcohol and Drug Abuse Patient Records regulations: The Federal rules restrict any use of the information to criminally investigate or prosecute any alcohol or drug abuse patient.[facility] the event this information is protected by the Federal Confidentiality of Alcohol and Drug Abuse Patient Records regulations: The Federal rules restrict any use of the information to criminally investigate or prosecute any alcohol or drug abuse patient.[facility] the event this information is protected by the Federal Confidentiality of Alcohol and Drug Abuse Patient Records regulations: The Federal rules restrict any use of the information to criminally investigate or prosecute any alcohol or drug abuse patient.[facility]In the event this information is protected by the Federal Confidentiality of Alcohol and Drug Abuse Patient Records regulations: The Federal rules restrict any use of the information to criminally investigate or prosecute any alcohol or drug abuse patient.[facility]In the event this information is protected by the Federal Confidentiality of Alcohol and Drug Abuse Patient Records regulations: The Federal rules restrict any use of the information to criminally investigate or prosecute any alcohol or drug abuse patient.[facility]In the event this information is protected by the Federal Confidentiality of Alcohol and Drug Abuse Patient Records regulations: The Federal rules restrict any use of the information to criminally investigate or prosecute any alcohol or drug abuse patient.[facility]In the event this information is protected by the Federal Confidentiality of Alcohol and Drug Abuse Patient Records regulations: The Federal rules restrict any use of the information to criminally investigate or prosecute any alcohol or drug abuse patient.[facility]In the event this information is protected by the Federal Confidentiality of Alcohol and Drug Abuse Patient Records regulations: The Federal rules restrict any use of the information to criminally investigate or prosecute any alcohol or drug abuse patient.[facility]In the event this information is protected by the Federal Confidentiality of Alcohol and Drug Abuse Patient Records regulations: The Federal rules restrict any use of the information to criminally investigate or prosecute any alcohol or drug abuse patient.[facility]In the event this information is protected by the Federal Confidentiality of Alcohol and Drug Abuse Patient Records regulations: The Federal rules restrict any use of the information to criminally investigate or prosecute any alcohol or drug abuse patient.[facility]In the event this information is protected by the Federal Confidentiality of Alcohol and Drug Abuse Patient Records regulations: The Federal rules restrict any use of the information to criminally investigate or prosecute any alcohol or drug abuse patient.[facility]In the event this information is protected by the Federal Confidentiality of Alcohol and Drug Abuse Patient Records regulations: The Federal rules restrict any use of the information to criminally investigate or prosecute any alcohol or drug abuse patient.[facility] UNRECOGNIZED CONTENT PROVIDED BELOW FOR UNRECOGNIZED SECTION Miscellaneous Notes Telephone Encounter - Analisa Garvey - 10/27/2019 12:50 PM EDTI filed the medication Telephone Encounter - Danita Ellington - 10/26/2019 12:38 PM EDTPatient's called to check on status of refill request. Please advise at [phone] if/when approved and sent to [facility]. Patient is out of medication. elephone Encounter - Sarah Cleaning LPN - 10/23/2019 10:22 AM EDT Upcoming appointment: 11/05/19 Medication request: Pending Prescriptions Disp Refills OXYCODONE 5 MG TABLET 60 tablet 0 Sig: Take 1 tablet by mouth every 8 hours as needed for Pain for up to 30 days. DOMINGO Class: C-II HECTOR: No Please review and advise. documented in this encounterTelephone Encounter - Sadaf Walters) - 09/27/2019 8:27 AM EDTContacted medical affairs manager Ana Lilia to discuss. elephone Encounter - Jennifer Keller - 09/22/2019 11:22 AM EDTDiane from [facility] called stating she would like to talk to you about some mutual patients and E-Scribing. Asked that you please call her. TY documented in this encounterTelephone Encounter - Chitra Quiroz Ma - 10/12/2019 2:11 PM EDTOrder for O2 at HS for 2 nights on his BiPAP device faxed to DME; [facility] # [phone]------FAX# [phone] since patient's DME does not do this currently. Patient aware and phone to [facility] given. Confirmed and filed. Chitra Quiroz Ma elephone Encounter - Sadaf Walters) - 10/12/2019 12:33 PM EDTOvernight pulse oximetry to be done while on BIPAP ST without oxygen. elephone Encounter - Chitra Quiroz Ma - 10/12/2019 12:09 PM EDTPatient calling back and he is still using the O2 with PAP therapy with 2L of O2 HS only. Review and advise. Chitra Quiroz Ma documented in this encounterTelephone Encounter - Rocío Arnett - 09/06/2019 9:13 AM EDTWife called in to schedule. elephone Encounter - Prachi Alejandro - 09/02/2019 4:01 PM EDTPlease call patient to schedule Entyvio treatments. Orders are being placed by main [facility] provider per spouse. documented in this encounterTelephone Encounter - Victoriano Villafana (Hitesh)HITESH - 10/18/2019 11:52 AM EDTCalled in to [facility] [place]. documented in this encounter Telephone Encounter - Dung Srinivasan) - 10/26/2019 10:36 AM EDT The following approved medication requests have been transmitted electronically. Signed Prescriptions Disp Refills metoprolol tartrate, short acting, (LOPRESSOR) 25 mg tablet 180 tablet 1 Sig: Take 1 tablet by mouth twice daily. HECTOR: No sertraline (ZOLOFT) 100 mg tablet 90 tablet 3 Sig: Take 1 tablet by mouth once daily. HECTOR: No famotidine (PEPCID) 20 mg tablet 180 tablet 1 Sig: Take 1 tablet by mouth twice daily. HECTOR: No Dung Srinivasan APRN.CLINICAL SAFETY MANAGER documented in this encounterTelephone Encounter - Shashi Salinas RN - 10/29/2019 2:58 PM EDTWife returned call and given provider's message below with verbalized understanding. documented in this encounterTelephone Encounter - Jonas Porter MA - 11/08/2019 10:01 AM EDT Patient scheduled for a procedure on 11/29/2019 in the [facility]. Pt instructed - that a hearse driver must remain present during the entire procedure. - nothing to eat after midnight before the procedure - may have clear liquids on day of procedure up until 2 hours prior to procedure - to take all routine medications for heart, hypertension and seizures can be taken with a small amount of water up to 2 hours prior to procedure. - discontinue anti-inflammatory medications Aspirin and Vitamin E 5 days prior to procedure: will stop ASA, NSAIDS, vitamins and supplements 5 days prior - no pain medication 6 hours prior to procedure. Is patient diabetic? yes Is patient currently taking Coumadin, Pletal, Plavix, Rheopro, Ticlid, Lovenox, Heparin, or any other blood thinners? Yes,plvex, patient got ok from heart doctor to stop Is patient allergic to Latex, shellfish, seafood, iodine, contrast dye, steroids or local anesthetics? No Does patient have a history of pacemaker or internal defibrillator, or seizure disorder?No Pt verbalized understanding of above instructions: yes Printed instructions handed to patient: No MIKESTARhart message sent with instructions: yes elephone Encounter - [facility] - 11/08/2019 9:39 AM EDTPt's called; says Dr. Marcial spoke to patient last week and told him he would order an injection for him; order was placed 11/02/19, but they have not received a call to get it scheduled. Please call to schedule injection and COVID test. [id number] signed by Jo Bennett [facility] at 11/08/2019 9:41 AM EDTTelephone Encounter - Javier Marcial - 11/02/2019 6:23 PM EDT Contacted patient. He reports improvement in the right side of his low back and buttock and leg pain. Still having significant discomfort in the left lower lumbar spine and left buttock and left leg. Distribution similar to that of his pain at the time of his prior bilateral transforaminal injection which offered him significant improvement in the low back and legs for a significant amount of time ofmany months. At this time advised patient we would schedule him for repeat left sided L5 transforaminal injection. Please schedule patient for a left L5 transforaminal epidural steroid injection. Javier Marcial, elephone Encounter - [facility] - 11/01/2019 3:38 PM EDTPt called; wants to provide Dr. Marcial his pain diary from injection 2 weeks ago on 10/17. Says his pain level in RT side was 5, now is 1; pain on LT side is the same. Please call to discuss; ph: [phone] documented in this encounterTelephone Encounter - Misty Abreu(Rn), RN - 11/16/2019 10:34 AM EDTGI Pre-Procedure Spoke with patient: Yes Confirmed date scheduled and patient report time: Yes Procedure Planned:Colonoscopy with or without biopsies based on clinical findings Is the patient on blood thinners? Plavix, patient has spoken with primary care regarding instructions Procedure Instructions given to patient: Yes, and they verbalized their understanding of instructions given Patient instructed to take prescribed preparation prior to procedure:Yes, and they verbalized their understanding of instructions given Patient instructed to have family/friend present for procedure? transport home:Patient/patient mechanical service representative was told that if they do not have a responsible adult accompany them to their procedure; and remain in the endoscopy area until they are discharged; that their procedure cannot be done with sed ation or anesthesia and may be cancelled. and They verbalized their understanding and agree to have a responsible adult accompany the patient to their procedure and remain in the endoscopy area. Any barriers to Patient learning: Patient/Patient Environmental Systems Coordinator responded appropriately on phone. Type of instruction given: Verbal by telephone contact. Misty Abreu RN documented in this encounterTelephone Encounter - Chitra Quiroz Ma - 11/17/2019 1:56 PM EDTOrder to D/C O[place] at [place] [facility] [place] [facility] # [phone]------FAX# [phone] Confirmed and filed. Chitra Quiroz Ma elephone Encounter - Sadaf Walters) - 11/17/2019 9:54 AM EDTRepeat Overnight pulse oximetry did not show the need for oxygen. If condition changes or weight gain were to occur, will need to re-test patient. Order sent to [facility] to D/C oxygen HS. documented in this encounterTelephone Encounter - Ivelisse Barrientos - 11/22/2019 12:11 PM EDTRF approved. Pt needs to make follow-up appt for additional refills. PDMP website checked and validated. All prescriptions have been APPROPRIATELY filled. No suspicious activity was identified. 11/22/2019 by Ivelisse Barrientos APRN.CNP elephone Encounter - Azucena Interiano (Rn), RN - 11/22/2019 12:03 PM EDTLOV 09/07/19 F/U Not scheduled. Sent LTG Exam Prep Platform message to make appt. Impression: G47.33 ALEXIS (obstructive sleep apnea) (primary encounter diagnosis) G25.81 RLS (restless legs syndrome) E11.42, Z79.4 Controlled type 2 diabetes mellitus with diabetic polyneuropathy, with long-term current use of insulin (HCC) K50.018 Crohn's disease of small intestine with other complication (HCC) ? Clinical Global Impression of Change (CGI-C) Compared to the patient's condition at baseline, how much has the patient changed? Much improved ? PDMP website checked and validated. All prescriptions have been APPROPRIATELY filled. No suspicious activity was identified. 09/07/2019 by Sadaf Walters APRN.CLINICAL SAFETY MANAGER ? 69 yo male?with PMH of?TIA, CAD s/p stent placement, heart failure, HLD, HTN, hypothyroid, DM II, bowel cancer, cognitive impairment, BPH, and obesity.?He presents today after re-starting BiPAP ST at lower pressures S/P bowel surgery. ? Plan: ALEXIS: - Continue Bilevel PAP ST and increase pressure 21/16 with BUR 10 cmH2O. - Remember to clean your mask and equipment regularly, as directed. - You should be eligible for new supplies approximately every 3-6 months, depending on your insurance coverage. Contact your Durable Medical Equipment (DME) company for new supplies as needed. ? RLS: - Nonmedical therapy for restless legs syndrome includes : cold/warm compresses, warm/hot baths or showers, gentle massage, mild leg stretching at nighttime, or magnesium supplements ( 250- 1000 mg at nighttime daily). Mentally alerting activities help too. Note the caffeine, alcohol, nicotine, antidepressants, anti-nausea meds and antihistamines can cause or worsen symptoms. - Continue GBP for treatment of RLS. No refills needed at this time ? Follow up in 3 Month(s). ? Sadaf Walters APRN.KYLEIGH ? ? documented in this encounterTelephone Encounter - Dung Srinivasan) - 11/23/2019 4:35 PM EDT The following approved medication requests have been transmitted electronically. Signed Prescriptions Disp Refills oxyCODONE IR (ROXICODONE) 5 mg immediate release tablet 60 tablet 0 Sig: Take 1 tablet by mouth every 8 hours as needed for Pain for up to 30 days. DOMINGO Class: C-II HECTOR: No Authorizing Provider: DUNG SRINIVASAN) Dung Srinivasan APRN.CNP PDMP website checked and validated. All prescriptions have been APPROPRIATELY filled. No suspicious activity was identified. 11/23/2019 by Dung Srinivasan APRN.KYLEIGH elephone Encounter - Shashi Salinas RN - 11/23/2019 12:01 PM EDT Patient has been identified by name and date of : Yes Spouse phones for refill(s): Pending Prescriptions Disp Refills OXYCODONE 5 MG TABLET 60 tablet 0 Sig: Take 1 tablet by mouth every 8 hours as needed for Pain for up to 30 days. DOMINGO Class: C-II HECTOR: No Date of last office visit with pcp: 11-05-19. Next appt: 01-05-20 Last 2 Encounter Wt Readings: Date: Wt: 11/22/2019 98.4 kg (217 lb) 11/05/2019 98.4 kg (217 lb) Previous labs/tests for medication: Blood Counts: WBC (k/uL) Date Value 09/22/2019 6.01 RBC (m/uL) Date Value 09/22/2019 3.98 Hematocrit (%) Date Value 09/22/2019 37.2 Hemoglobin (g/dL) Date Value 09/22/2019 12.5 Platelet Count (k/uL) Date Value 09/22/2019 125 Liver Function: ALT (U/L) Date Value 09/22/2019 72 AST (U/L) Date Value 09/22/2019 88 Please advise. Thank you. Shashi Salinas RN documented in this encounterTelephone Encounter - ToyindarcyAngeline - 11/24/2019 2:51 PM EDT ----- Message from Loyd Bacon sent at 11/23/2019 4:38 PM EDT ----- Please let him know that the good news is that there is no Cdiff and the Crohn's is in remission - bx's normal. Given the number of medications, I'd like to continue the Entyvio for now, but hold off on adding anything quite yet. I'd like him to keep a diary as to what may worsen his symptoms, ie diet, but also especially related to the Entyvio infusions, ie does he feel better after but it wears off? Then a follow up virtual visit. documented in this encounter UNRECOGNIZED CONTENT PROVIDED BELOW FOR UNRECOGNIZED SECTION No Status Records FoundNo Status Records FoundNo Status Records FoundNo Status Records FoundNo Status Records FoundNo Status Records Found UNRECOGNIZED CONTENT PROVIDED BELOW FOR UNRECOGNIZED SECTION INFORMATION SOURCE DATE CREATED AUTHOR AUTHOR'S ORGANIZATIO N 08/07/2017 [facility] DATE CREATED AUTHOR AUTHOR'S ORGANIZATIO N 08/07/2017 [facility] DATE CREATED AUTHOR AUTHOR'S ORGANIZATIO N 05/18/2019 [facility] DATE CREATED AUTHOR AUTHOR'S ORGANIZATIO N 07/29/2019 [facility] DATE CREATED AUTHOR AUTHOR'S ORGANIZATIO N 08/07/2017 [facility] DATE CREATED AUTHOR AUTHOR'S ORGANIZATIO N 11/29/2019 [facility] UNRECOGNIZED CONTENT PROVIDED BELOW FOR UNRECOGNIZED SECTION Reason for Visit Reason Onset Date Comments E-scribing 09/22/2019 Reason Comments Established Patient Reason Comments Leg Pain Reason Onset Date Comments Orders 09/02/2019 Reason Comments Established Patient Crohn's disease, abdominal p ain Reason Comments Non-Chemotherapy Treatment Reason Onset Date Comments Results 10/29/2019 Reason Onset Date Comments Recheck 2 month follow up Imm/Inj 11/05/2019 Flu Vaccine Reason Comments Refill Request Reason Onset Date Comments Patient Update 11/01/2019 Schedule Injection 11/01/2019 Reason Onset Date Comments Appointment Confirmation 11/16/2019 Reason Onset Date Comments Overnight pulse oximetry 11/17/2019 Reason Onset Date Comments Refill Request 11/20/2019 Reason Onset Date Comments Refill Request 11/23/2019 Reason Comments Results
== END ==
PROVIDERS: PCP Internal Medicine; Referring Provider Urology; Visit Provider Urology
DX: C67.4 Malignant neoplasm of posterior wall of bladder (principal)
CPT/HCPCS: 88108; 88313

== ENCOUNTER → 2020-03-01 14:06 | Outpatient (CLI) | payer MEDICARE, OTHER, SELFPAY ==
[2018-05-06 08:04] VITALS: BMI 32.1
--- NOTE | 2020-03-01 14:11 | CYSPIN_PTH ---
PATIENT: VENKATA LEAL LOC: [facility] U#:[id number] AGE/SX: 74/M ROOM: RE03/01/[address]: Dr. Danny Olson MD : 1950 BED: DIS: SPEC #: [id number] RECD: 03/01/20 14:11 STATUS: CORI RESteve #: [id number] LLOA: 03/01/20 14:[address]: Danny Olson DEPT: CYTOLOGY RECD BY: Tuyet Mackey ENTERED: 03/02/20 06:43 SP TYPE: CYSPIN FL OTHR DR: Dr. Analisa Nogueira MD Tissues: Urine Procedures: Pap Stain (control) Special Stain Group II Cytospin Fluid HEADER OPERATION: Not noted PRE-OP DIAGNOSIS: Malignant neoplasm of posterior wall of bladder TISSUE SUBMITTED: Urine for cytology DIAGNOSIS CYTOLOGY Urine for cytology (cytospin): Rare atypical urothelial cells noted. See comment. BRITTNI:magdiel 03/02/2020 COMMENT Clinical correlation and appropriate follow up are necessary. Please make reference to previous specimens ([id number]) bladder tumor, TUR with diagnosis of papillary urothelial carcinoma and ([id number]) bladder, biopsy with diagnosis of papillary urothelial carcinoma. Case has been reviewed in consultation with Dr. Ibrahim who concurs with the above diagnosis. IDC:AM CYTOLOGY STUDY Slides are reviewed. CYTOLOGY GROSS Received is 60 ml of yellow cloudy fluid labeled with the patient's name and and designated per the requisition as urine. Submitted for cytology preparation. / rg 03/01/20 TC:5 CPT: 53737
[2020-03-01 14:14] LABS: Cytology, Body Fluid / CSF SEE PATHOLOGY REPORT
== END ==
PROVIDERS: PCP Internal Medicine; Visit Provider Urology
DX: C67.4 Malignant neoplasm of posterior wall of bladder (principal)
CPT/HCPCS: 88108; 88313

== ENCOUNTER 2020-07-04 05:33 | Inpatient (IN) | payer MEDICARE, OTHER, SELFPAY ==
[2018-05-06 08:04] VITALS: BMI 32.1
[2020-07-04] VITALS (9 sets, daily range): BP systolic 113–149; BP diastolic 65–78; PULSE 63–88; RESP 16–18; TEMP 36.3–37; O2SAT 96–98; BMI 32.1; BMI 31.2
--- NOTE | 2020-07-04 05:45 | CT_ITS ---
STUDY: CT ABDOMEN AND PELVIS WITHOUT CONTRAST REASON FOR EXAM: Male, 70 years old. Nausea vomiting, distention suspect high-grade obs RADIATION DOSAGE (If Supplied By Facility): CTDIvol = ( 19.61 ) mGy, DLP = ( 939.24 ) mGycm TECHNIQUE: Transaxial images were obtained from the dome of the diaphragm to the symphysis pubis without oral contrast, and without intravenous contrast. Sagittal and coronal images were reconstructed. Individualized dose optimization techniques were used for this CT. COMPARISON: None. FINDINGS: There are chronic interstitial fibrotic changes of the lung bases with dependent atelectasis. The visualized portions of the heart are within normal limits. There is decreased attenuation of the liver consistent with steatosis. There are surgical clips in the gallbladder fossa consistent with a prior cholecystectomy. Normal spleen. Normal pancreas. Normal bilateral adrenal glands. Normal right kidney. Normal left kidney. Stomach is fluid distended without abnormal submucosal thickening or perigastric inflammation. There are multiple borderline distended fluid-filled small bowel loops and air-fluid levels consistent with ileus. This is likely due to the patient''s right-sided stoma so there is likely a motility issue. There is no demonstrated obstruction. The stoma does show some induration of the parastomal fat suggesting there is likely inflammation present. Visualized colon shows some retained stool. There is non-visualization of the appendix. There is diffuse atherosclerotic calcification of the abdominal aorta, without a demonstrated aneurysm. Normal inferior vena cava. Normal retroperitoneum. Normal urinary bladder. There are prostatic calcifications. Normal abdominal wall. There are diffuse degenerative changes of the visualized lumbar spine, and pelvis. CT/Abdomen/Pel W ORAL Cont Only IMPRESSION: Diffuse fatty infiltration of the liver without a discrete lesion. Small bowel ileus, no demonstrated obstruction. I suspect this is likely due to the presence of a right lower quadrant stoma as there is likely motility issues related to this. There is induration of the subcutaneous fat around the stoma suggesting inflammation. There is no demonstrated abscess. Diffuse atherosclerosis Degenerative bony changes Electronically Signed: Casa Gray MD at 8:31 EDT , Service support ,
--- NOTE | 2020-07-04 05:47 | EDS_ITS ---
HPI <Dr. Yobany Posadas MD - Last Filed: 07/04/20 06:24> HPI - GI History of Present Illness Chief Complaint: Abd Pain Informant: patient and spouse/S.O. Abdominal Pain/Flank Pain Onset: Yesterday (12 noon) Context: Sudden Onset Quality: Aching and Cramping Location: Diffuse Current Severity: Mild Maximum Severity: Severe Worsened by: Nothing Relieved by: Nothing Nausea/Vomiting/Emesis GI Symptom: Positive for Nausea and Vomiting (X2 and appearance of brown liquid stool) Onset: Today Quality: Positive for Nonbilious; Negative for Coffee ground and Hematemesis Severity: Mild Diarrhea/Melena/Hematochezia GI Symptom: Negative for Diarrhea, Melena and Hematochezia Associated Symptoms Associated Symptoms: Negative for Dysuria, Frequency and Hematuria Narrative Narrative: Patient is a 70-year-old male with history of Crohn's disease. 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 He has had prior obstructions. His last obstruction was 6 months ago. Patient and states he usually is transferred to [facility]. His physicians practice at [facility]. He has had significant nausea and is vomited twice. Has appearance of liquid brown stool. There is no coffee grounds noted. He does feel bloated and distended. He denies diarrhea or constipation. He denies dysuria, frequency, urgency or hematuria. He does have end-stage renal disease, 3B he denies fever, chills night sweats. He denies exposure to Covid. He denies loss of taste or smell. Prior similar symptoms: Yes Recent Illness/Hospitalization: No PFSH <Dr. Yobany Posadas MD - Last Filed: 07/04/20 06:24> PFS Medical History BiPAP (biphasic positive airway pressure) dependence Coronary artery disease Diabetes Hypertension Hypothyroidism Kidney disease Sleep apnea Home Medications Creon 3 cap PO TIDCM 08/22/16 [History Last Taken 08/21/16] amlodipine 5 mg PO DAILY 08/22/16 [History Last Taken 05/06/18 06:00] dicyclomine 10 mg PO ACHS 08/22/16 [History Last Taken Unknown] diphenoxylate-atropine [Lomotil] 1 ea PO Q6H PRN 08/22/16 [History Last Taken Unknown] duloxetine 20 mg PO QHS 08/22/16 [History Last Taken 08/21/16] finasteride 5 mg PO DAILY 08/22/16 [History Last Taken 08/22/16 08:00] furosemide 20 mg PO DAILY 08/22/16 [History Last Taken 08/22/16 08:00] gabapentin [Neurontin] 300 mg PO QHS 08/22/16 [History Last Taken 08/21/16] insulin asp prt-insulin aspart [Novolog Mix 70-30 U-100 Insuln] 30 unit SQ DINNER 08/22/16 [History Last Taken 08/22/16 08:00] levothyroxine 137 mcg PO DAILY 08/22/16 [History Last Taken 05/06/18 06:00] metoprolol tartrate [Lopressor] 25 mg PO BID 08/22/16 [History Last Taken 05/06/18 06:00] tamsulosin 0.4 mg PO BID 08/22/16 [History Last Taken 08/22/16 08:00] cholecalciferol (vitamin D3) 50,000 unit PO TUTH 10/25/16 [History Last Taken Unknown] clopidogrel 75 mg PO DAILY 10/25/16 [History Last Taken 04/30/18] cyanocobalamin (vitamin B-12) 1,000 mcg SUBLINGUAL DAILY 10/25/16 [History Last Taken Unknown] rosuvastatin [Crestor] 5 mg PO MOTH 10/25/16 [History Last Taken Unknown] cyanocobalamin (vitamin B-12) 100 mcg IM Q7D 11/19/16 [History Last Taken Unknown] octreotide,microspheres [Sandostatin Lar Depot] 10 mg IM QMONTH 11/19/16 [History Last Taken Unknown] Melatonin 10 mg SUBLINGUAL QHS PRN 04/29/18 [History Last Taken Unknown] insulin asp prt-insulin aspart [Novolog Mix 70-30 Vial] 40 unit SQ BREAKFAST 04/29/18 [History Last Taken Unknown] oxycodone 5 mg PO Q8 PRN 04/29/18 [History Last Taken Unknown] pantoprazole 20 mg PO BID 04/29/18 [History Last Taken 05/06/18 06:00] spironolactone 25 mg PO DAILY 04/29/18 [History Last Taken Unknown] acetaminophen 500 mg PO Q4H PRN PRN #20 tablet 05/06/18 [Rx Last Taken Unknown] colestipol 1 g PO BID 07/04/20 [History Last Taken Unknown] gabapentin 200 mg PO DAILY 07/04/20 [History Last Taken Unknown] insulin asp prt-insulin aspart [Novolog Mix 70-30 U-100 Insuln] 40 unit SUBCUT DAILY 07/04/20 [History Last Taken Unknown] lidocaine HCl 1 applic TOPICAL QHS 07/04/20 [History Last Taken Unknown] loperamide 2 mg PO Q6H PRN 07/04/20 [History Last Taken Unknown] nicotine (polacrilex) 2 mg PO Q2H PRN PRN 07/04/20 [History Last Taken Unknown] ondansetron HCl [Zofran] 8 mg PO Q8H PRN 07/04/20 [History Last Taken Unknown] sildenafil [Viagra] 100 mg PO DAILY PRN 07/04/20 [History Last Taken Unknown] sodium bicarbonate 650 mg PO DAILY 07/04/20 [History Last Taken Unknown] thiamine HCl (vitamin B1) 1,850 mg PO DAILY 07/04/20 [History Last Taken Unknown] Allergy/AdvReac Type Severity Reaction Status Date / Time procaine HCl [From Novocain] Allergy Other Verified 07/04/20 05:41 [id number]-[id number] Reductase Allergy Other Verified 07/04/20 05:41 Inhibitor Surgical History (Updated 07/04/20 @ 05:40 by Lorri Siu) History of coronary artery stent placement Social History (Updated 07/04/20 @ 05:[address] Yobany Posadas MD) household members: spouse housing: house current occupational status: retired Smoking Status: Former smoker substance use type: does not use ROS <Dr. Yobany Posadas MD - Last Filed: 07/04/20 06:24> ROS ED Constitutional Constitutional ED: Denies chills, fever(s), subjective or sweats ENT ENT ED: Denies ear pain, rhinorrhea or sore throat Cardiovascular Cardiovascular: Denies chest pain, palpitations or racing heartbeat Respiratory/Chest Respiratory/Chest: Denies cough, dyspnea or dyspnea on exertion Gastrointestinal Gastrointestinal: Reports abdominal pain, nausea and vomiting; Denies constipation or diarrhea Genitourinary Genitourinary ED: Denies dysuria, hematuria or urinary frequency Musculoskeletal Musculoskeletal: Denies arthralgias, back pain or myalgias Integumentary Denies rash Neurologic Neurologic: Reports other Details: Neuro apathy due to diabetes and peripheral arterial disease ; Denies headache(s) or weakness Endocrine Endocrinology: Denies polydipsia or polyuria Hematologic/Lymphatic Hematologic/Lymphatic: Denies easy bleeding or easy bruising EXAM <Dr. Yobany Posadas MD - Last Filed: 07/04/20 06:24> Physical Exam Const Vital Signs: 07/04/20 05:33 07/04/20 06:38 07/04/20 08:12 Temperature 97.4 F L Temperature Source Oral Pulse Rate 88 76 83 Respiratory Rate 18 18 16 Blood Pressure 149/78 H 133/73 H 128/72 H Blood Pressure Mean 101 93 90 Pulse Ox 96 98 96 Oxygen Delivery Method Room Air Room Air Room Air 07/04/20 09:53 Temperature Temperature Source Pulse Rate 81 Respiratory Rate 18 Blood Pressure 130/76 H Blood Pressure Mean 94 Pulse Ox 98 Oxygen Delivery Method Room Air Positive well nourished, well developed and obese General Appearance ED: well developed and other Appears uncomfortable. Nutritional Appearance: obese HEENT Reports dry mucous membranes normocephalic and atraumatic Mouth ED: Yes dry mucous membranes Mouth: dry mucous membranes Eyes PERRL and EOMs intact bilaterally General Eye ED: Negative for pale conjunctiva or scleral icterus Neck no lymphadenopathy, supple and no JVD Resp normal respiratory effort and clear to auscultation bilaterally Cardio regular rate, regular rhythm, S1 normal heart sound, S2 normal heart sound and no murmurs Rhythm: abnormal rhythm GI no masses GI Narrative: There is brown liquid stool noted in his colostomy bag. There is no blood. Inspection: abdominal distention Auscultation: hypoactive bowel sounds Palpation: tender other (Generalized) and guarding other (Greater upper quadrants); Negative for rigid or rebound tenderness present Back/Spine no CVA tenderness Lumbar Spine / Lower Back: Negative for lumbar spinal tenderness Extremity full ROM General Extremety ED: Negative for edema General Extremity: Negative for edema Neuro CN's II-XII intact bilaterally and no sensory deficits noted Sensorium / Orientation: alert, oriented to person, oriented to place and oriented to time Motor Exam: strength 5/5 throughout Psych mental status grossly normal and thought process normal Skin no wounds Lesions: no lesions Rashes: no rashes <Dr. Nixon Carlos MD - Last Filed: 07/04/20 10:26> Physical Exam Const Vital Signs: 07/04/20 05:33 07/04/20 06:38 07/04/20 08:12 Temperature 97.4 F L Temperature Source Oral Pulse Rate 88 76 83 Respiratory Rate 18 18 16 Blood Pressure 149/78 H 133/73 H 128/72 H Blood Pressure Mean 101 93 90 Pulse Ox 96 98 96 Oxygen Delivery Method Room Air Room Air Room Air 07/04/20 09:53 Temperature Temperature Source Pulse Rate 81 Respiratory Rate 18 Blood Pressure 130/76 H Blood Pressure Mean 94 Pulse Ox 98 Oxygen Delivery Method Room Air MDM <Dr. Yobany Posadas MD - Last Filed: 07/04/20 06:24> MDM MDM Narrative Medical decision making narrative: With abdominal pain and distention and fecal appearing emesis concern patient has a high-grade obstruction. CT of the abdomen with p.o. contrast was ordered. Appropriate blood work was obtained to assess renal function, white count, H&H. Lactate was obtained as well to assess for organ dysfunction. He received 1 L of normal saline. He also received 4 mg of Zofran for his nausea and 8 mg of morphine for his pain. Since he will require transfer Covid test was obtained. Patient's hemoglobin is 2 to 3 g higher than prior. This would suggest heme, centration due to dehydration. Lab Data Attestation: I reviewed the patient's lab results. Lab results narrative: BUN and creatinine are elevated. Glucose is also elevated. Patient does have type 1 diabetes. Labs: Laboratory Results - last 24 hr 07/04/20 07/04/20 07/04/20 05:33 05:33 05:33 WBC 7.0 RBC 4.07 L Hgb 13.1 Hct 40.5 MCV 99.5 H MCH 32.2 H MCHC 32.3 RDW Std Deviation 58.6 H RDW Coeff of Arlin 16.3 H Plt Count 132 L MPV 12.2 H Immature Gran % (Auto) 0.400 Neut % (Auto) 79.7 H Lymph % (Auto) 7.7 L Davie % (Auto) 10.5 H Eos % (Auto) 1.1 Baso % (Auto) 0.6 Absolute Neuts (auto) 5.6 Absolute Lymphs (auto) 0.54 L Nucleated RBC % 0 Differential Comment SCANNED Sodium 137 Potassium 4.7 Chloride 102 Carbon Dioxide 27.0 Anion Gap 8 BUN 25 H Creatinine 2.43 H Estim Creat Clear Calc 28.79 Est GFR (MDRD) Af Amer 34 L Est GFR (MDRD) Non-Af 28 L BUN/Creatinine Ratio 10.3 Glucose 176 H Lactic Acid 2.3 H* Calcium 9.6 Total Bilirubin 0.80 AST 47 H ALT 38 Alkaline Phosphatase 158 H Total Protein 7.5 Albumin 3.2 Globulin 4.3 H Albumin/Globulin Ratio 0.7 L Radiography Diagnostic Testing: Radiology Impression Abdomen CT 07/04/20 05:45 IMPRESSION: Diffuse fatty infiltration of the liver without a discrete lesion. Small bowel ileus, no demonstrated obstruction. I suspect this is likely due to the presence of a right lower quadrant stoma as there is likely motility issues related to this. There is induration of the subcutaneous fat around the stoma suggesting inflammation. There is no demonstrated abscess. Diffuse atherosclerosis Degenerative bony changes Electronically Signed: Casa Gray MD at 8:31 EDT , Service support , <Dr. Nixon Carlos MD - Last Filed: 07/04/20 10:26> [facility] Narrative Medical decision making narrative: Asked to reevaluate the patient after CT report is available, the patient's vital signs remained stable still complains of abdominal distention his colostomy is putting out some liquidy stool, radiology notes on the CT there is no signs of obstruction findings more consistent with ileus he has a stomach full of fluid he has scattered air-fluid levels there is induration of the peristomal fat and again no demonstrate obstruction, the patient's creatinine is elevated to about 2.6 off his baseline, lactate 2.3, the patient and the report that they feel as if he might have a bowel obstruction is present in this fashion the past, they report he is always transferred to [facility] to be under the care of Dr. Teixeira his surgeon and they would like to proceed with that plan I have contacted the [facility] transfer line will make the appropriate arrangements to have him transferred to [facility] I spoke with Dr. Teixeira his surgeon at [facility] who suggested the patient be admitted to the [facility] medicine service given lack of signs of obstruction, spoke with Dr. DENIS Roe internal medicine admitting physician agreed to accept the patient in transfer for admission to [facility] he explained to me over there were no beds and it may be a day or 2 before there are beds, I spoke with the patient his we discussed the wide range of options the patient wants to be admitted to [facility] does not wish to be transferred to other facilities and is agreeable to being admitted to this facility until a bed opens up on the [facility] Spoke with [facility] hospitalist will admit to this facility as above Disposition admit to [facility], transfer to [facility] once bed is available Final impression abdominal pain Crohn's disease recent colostomy related to fistula, ileus versus early obstruction Lab Data Labs: Laboratory Results - last 24 hr 07/04/20 07/04/20 07/04/20 05:33 05:33 05:33 WBC 7.0 RBC 4.07 L Hgb 13.1 Hct 40.5 MCV 99.5 H MCH 32.2 H MCHC 32.3 RDW Std Deviation 58.6 H RDW Coeff of Arlin 16.3 H Plt Count 132 L MPV 12.2 H Immature Gran % (Auto) 0.400 Neut % (Auto) 79.7 H Lymph % (Auto) 7.7 L Davie % (Auto) 10.5 H Eos % (Auto) 1.1 Baso % (Auto) 0.6 Absolute Neuts (auto) 5.6 Absolute Lymphs (auto) 0.54 L Nucleated RBC % 0 Differential Comment SCANNED Sodium 137 Potassium 4.7 Chloride 102 Carbon Dioxide 27.0 Anion Gap 8 BUN 25 H Creatinine 2.43 H Estim Creat Clear Calc 28.79 Est GFR (MDRD) Af Amer 34 L Est GFR (MDRD) Non-Af 28 L BUN/Creatinine Ratio 10.3 Glucose 176 H Lactic Acid 2.3 H* Calcium 9.6 Total Bilirubin 0.80 AST 47 H ALT 38 Alkaline Phosphatase 158 H Total Protein 7.5 Albumin 3.2 Globulin 4.3 H Albumin/Globulin Ratio 0.7 L Radiography Diagnostic Testing: Radiology Impression Abdomen CT 07/04/20 05:45 IMPRESSION: Diffuse fatty infiltration of the liver without a discrete lesion. Small bowel ileus, no demonstrated obstruction. I suspect this is likely due to the presence of a right lower quadrant stoma as there is likely motility issues related to this. There is induration of the subcutaneous fat around the stoma suggesting inflammation. There is no demonstrated abscess. Diffuse atherosclerosis Degenerative bony changes Electronically Signed: Casa Gray MD at 8:31 EDT , Service support , Discharge Plan Triage Chief Complaint: Abd Pain ED Provider: Yobany Posadas Dx/Rx/DC Orders Prescriptions: No Action furosemide 40 MG tablet 20 mg PO DAILY RF: 0 levothyroxine 137 MCG tablet 137 mcg PO DAILY RF: 0 metoprolol tartrate [Lopressor] 100 MG tablet 25 mg PO BID RF: 0 diphenoxylate-atropine [Lomotil] 1 EACH tablet 1 ea PO Q6H PRN (Reason: Diarrhea) RF: 0 amlodipine 5 MG tablet 5 mg PO DAILY RF: 0 tamsulosin 0.4 MG capsule 0.4 mg PO BID RF: 0 gabapentin [Neurontin] 300 MG capsule 300 mg PO QHS RF: 0 dicyclomine 10 MG capsule 10 mg PO ACHS RF: 0 finasteride 5 MG tablet 5 mg PO DAILY RF: 0 insulin asp prt-insulin aspart [Novolog Mix 70-30 U-100 Insuln] 100 UNIT/ML solution 30 unit SQ DINNER RF: 0 duloxetine 20 MG capsule,delayed release(DR/EC) 20 mg PO QHS RF: 0 Creon 1 EACH capsule,delayed release(DR/EC) 3 cap PO TIDCM RF: 0 cyanocobalamin (vitamin B-12) 1,000 MCG tablet 1,000 mcg sublingual DAILY RF: 0 clopidogrel 75 MG tablet 75 mg PO DAILY RF: 0 rosuvastatin [Crestor] 5 MG tablet 5 mg PO MOTH RF: 0 cholecalciferol (vitamin D3) 50,000 UNIT capsule 50,000 unit PO TUTH RF: 0 cyanocobalamin (vitamin B-12) 1,000 MCG/ML solution 100 mcg IM Q7D RF: 0 octreotide,microspheres [Sandostatin LAR Depot] 10 MG Vial 10 mg IM QMONTH RF: 0 spironolactone 25 MG tablet 25 mg PO DAILY RF: 0 pantoprazole 20 MG tablet 20 mg PO BID RF: 0 oxycodone 5 MG tablet 5 mg PO Q8 PRN (Reason: Pain) RF: 0 insulin asp prt-insulin aspart [Novolog Mix 70-30 U-100 Insuln] 100 UNIT/ML solution 40 unit SQ BREAKFAST RF: 0 Melatonin 10 MG Tab.Subl 10 mg sublingual QHS PRN (Reason: Sleep) RF: 0 acetaminophen 500 MG tablet 500 mg PO Q4H PRN PRN (Reason: Pain) Qty: 20 RF: 0 lidocaine HCl 5 % Ointment 1 applic TOPICAL QHS RF: 0 colestipol 1 gram Tablet 1 g PO BID RF: 0 gabapentin 100 mg Tablet 200 mg PO DAILY RF: 0 loperamide 2 mg Capsule 2 mg PO Q6H PRN (Reason: Diarrhea) RF: 0 nicotine (polacrilex) 2 mg Gum 2 mg PO Q2H PRN PRN (Reason: Smoking Cessation) RF: 0 insulin asp prt-insulin aspart [Novolog Mix 70-30 U-100 Insuln] 100 unit/mL (70-30) Solution 40 unit SUBCUT DAILY RF: 0 ondansetron HCl [Zofran] 8 mg Tablet 8 mg PO Q8H PRN (Reason: Nausea) RF: 0 sildenafil [Viagra] 100 mg Tablet 100 mg PO DAILY PRN (Reason: Sexual Activity) RF: 0 sodium bicarbonate 650 mg Tablet 650 mg PO DAILY RF: 0 thiamine HCl (vitamin B1) 250 mg Tablet 1,850 mg PO DAILY RF: 0 Primary Care Provider: Analisa Nogueira Referrals: Analisa Nogueira MD [Primary Care Provider] -
[2020-07-04] MEDS: Ondansetron 4 MG/2 ML Vial IV (05:55)
[2020-07-04] MEDS: morphine 8 MG/ML Syringe IV (05:55)
[2020-07-04 06:07] LABS: Absolute Lymphocyte Count 0.54 X10^3/uL (0.83-4.51); Absolute Neutrophil Count 5.6 X10^3/uL (2.0-7.7); Basophil# 0.04 X10^3/uL; Basophil% 0.6 % (0-1); Eosinophil# 0.08 X10^3/uL; Eosinophils% 1.1 % (0-5); Hematocrit 40.5 % (40-54); Hemoglobin 13.1 g/dL (13.0-16.5); Lymphocyte # 0.54 X10^3/ul (0.83-4.51); Lymphocyte % 7.7 % (19-41); Mean Corp Hgb Conc 32.3 g/dL (32-36); Mean Corpuscular Hgb 32.2 pg (27.0-32.0); Mean Corpuscular Volume 99.5 fL (80-94); Mean Platelet Vol. 12.2 fl (6.2-12.0); Monocyte# 0.74 X10^3/uL; Monocyte% 10.5 % (0-10); NRBC Flagged by Analyzer 0 % (0-5); Neutrophil % 79.7 % (47-70); POSITIVE DIFFERENTIAL YES; Platelet Count 132 K/mm3 (150-450); RBC Distribution Width CV 16.3 % (11.6-14.6); RBC Distribution Width SD 58.6 fl (35.1-43.9); Red Blood Count 4.07 M/mm3 (4.6-6.2)
[2020-07-04 06:12] LABS: Differential Indicated SCAN CRITERIA MET
[2020-07-04 06:20] LABS: ALB/GLOB Ratio 0.7 RATIO (0.9-2.4); AST(SGOT) 47 U/L (15-37); Alanine Aminotransfer ALT/SGPT 38 U/L (16-61); Albumin, Serum 3.2 g/dL (3.2-5.0); Alkaline Phosphatase 158 U/L (45-117); Anion Gap 8 (5-15); BUN 25 mg/dL (7-18); BUN/Creat Ratio 10.3 RATIO (10-20); Calcium,Total 9.6 mg/dL (8.5-10.1); Chloride 102 mmol/L (98-107); Creatinine, Serum 2.43 mg/dL (0.70-1.30); EST Glomerular Filtration Rate 28 mL/min (>60); Est Glom Filt Rate - Afr Amer 34 mL/min (>60); Estimated Creatinine Clearance 28.79 ml/min; Globulin 4.3 g/dL (2.2-4.2); Glucose 176 mg/dL (74-106); Potassium 4.7 mmol/L (3.5-5.1); Protein, Total 7.5 g/dL (6.4-8.2); Sodium Level 137 mmol/L (136-145)
[2020-07-04 06:26] LABS: Differential Comment SCANNED
[2020-07-04] MEDS: Metoclopramide 10 MG/2 ML Vial 5 MG IV (06:35)
[2020-07-04 07:00] LABS: Lactic Acid 2.3 mmol/L (0.4-1.9)
[2020-07-04] MEDS: Morphine 4 MG/ML Syringe IV (09:50)
[2020-07-04 10:05] LABS: Reflex Lactate? Y
--- NOTE | 2020-07-04 10:34 | PCM.HP.STD ---
HPI - General General Date of Admission: 07/04/20 Chief Complaint: Abdominal pain HPI Narrative VENKATA LEAL, is a 70 M who presents with abdominal pain. Patient has history of carcinoid tumor involving the small intestines with previous with complications including fistula for which he underwent repair at the [facility] 6 weeks prior to his admission. Patient did develop john pain on the morning of his presentation. In addition to the abdominal pain patient did experience nausea and vomiting. He however noticed feces in his ileostomy bag. Presented to the emergency department as a result. Imaging studies obtained in the ED demonstrated Small bowel ileus, no demonstrated obstruction. Admitted to regular nursing floor for further management [facility] Medical History (Updated 07/04/20 @ 13:[address] Damon Chu MD) BiPAP (biphasic positive airway pressure) dependence CKD (chronic kidney disease) stage 3, GFR 30-59 ml/min Coronary artery disease Diabetes Hypertension Hypothyroidism Ileus Kidney disease Sleep apnea Home Medications Creon 3 cap PO TIDCM 08/22/16 [History Last Taken 08/21/16] amlodipine 5 mg PO DAILY 08/22/16 [History Last Taken 07/03/20 08:00] dicyclomine 10 mg PO ACHS 08/22/16 [History Last Taken 07/03/20 08:00] diphenoxylate-atropine [Lomotil] 1 ea PO Q6H 08/22/16 [History Last Taken 07/03/20 08:00] duloxetine 20 mg PO QHS 08/22/16 [History Last Taken 07/03/20 21:00] finasteride 5 mg PO DAILY 08/22/16 [History Last Taken 07/03/20 08:00] furosemide 20 mg PO DAILY 08/22/16 [History Last Taken 07/03/20 08:00] gabapentin [Neurontin] 300 mg PO QHS 08/22/16 [History Last Taken 07/03/20 21:00] insulin asp prt-insulin aspart [Novolog Mix 70-30 U-100 Insuln] 30 unit SQ DINNER 08/22/16 [History Last Taken 07/03/20 17:00] levothyroxine 137 mcg PO DAILY 08/22/16 [History Last Taken 07/03/20 06:00] metoprolol tartrate [Lopressor] 25 mg PO BID 08/22/16 [History Last Taken 07/03/20 08:00] tamsulosin 0.4 mg PO BID 08/22/16 [History Last Taken 07/03/20 17:00] cholecalciferol (vitamin D3) 50,000 unit PO TUTH 10/25/16 [History Last Taken 07/03/20 08:00] clopidogrel 75 mg PO DAILY 10/25/16 [History Last Taken 07/03/20 08:00] cyanocobalamin (vitamin B-12) 1,000 mcg SUBLINGUAL DAILY 10/25/16 [History Last Taken Unknown] rosuvastatin [Crestor] 5 mg PO MOTH 10/25/16 [History Last Taken 07/03/20 08:00] cyanocobalamin (vitamin B-12) 100 mcg IM Q7D 11/19/16 [History Last Taken 06/28/20 08:00] octreotide,microspheres [Sandostatin Lar Depot] 10 mg IM QMONTH 11/19/16 [History Last Taken 06/20/20] Melatonin 10 mg SUBLINGUAL QHS PRN 04/29/18 [History Last Taken 07/03/20 21:00] insulin asp prt-insulin aspart [Novolog Mix 70-30 Vial] 40 unit SQ BREAKFAST 04/29/18 [History Last Taken 07/03/20 08:00] oxycodone 5 mg PO Q8 PRN 04/29/18 [History Last Taken 07/03/20 21:00] pantoprazole 20 mg PO BID 04/29/18 [History Last Taken 07/03/20 21:00] spironolactone 25 mg PO DAILY 04/29/18 [History Last Taken 07/03/20 08:00] acetaminophen 500 mg PO Q4H PRN PRN #20 tablet 05/06/18 [Rx Last Taken Unknown] colestipol 1 g PO BID 07/04/20 [History Last Taken 07/03/20 21:00] gabapentin 200 mg PO DAILY 07/04/20 [History Last Taken 07/03/20 08:00] lidocaine HCl 1 applic TOPICAL QHS 07/04/20 [History Last Taken 07/03/20 08:00] loperamide 2 mg PO Q6H 07/04/20 [History Last Taken 07/03/20 17:00] nicotine (polacrilex) 2 mg PO Q2H PRN PRN 07/04/20 [History Last Taken 07/03/20] ondansetron HCl [Zofran] 8 mg PO Q8H PRN 07/04/20 [History Last Taken 07/03/20] sildenafil [Viagra] 100 mg PO DAILY PRN 07/04/20 [History Last Taken Unknown] sodium bicarbonate 650 mg PO DAILY 07/04/20 [History Last Taken 07/03/20 21:00] thiamine HCl (vitamin B1) 1,850 mg PO DAILY 07/04/20 [History Last Taken 07/03/20 21:00] Allergy/AdvReac Type Severity Reaction Status Date / Time procaine HCl [From Novocain] Allergy Other Verified 07/04/20 05:41 Rngqasb-Nyu-Kux Reductase Allergy Other Verified 07/04/20 05:41 Inhibitor no significant family history Surgical History History of coronary artery stent placement Social History (Updated 07/04/20 @ 05:[address] Yobany Posadas MD) household members: spouse housing: house current occupational status: retired Smoking Status: Former smoker substance use type: does not use ROS ROS Narrative GENERAL: denies fever, chills, HEENT: denies headache, sinus congestion, RESPIRATORY: denies cough, sputum production, CARDIAC: denies chest pain, palpitations, orthopnea, GASTROINTESTINAL: abdominal pain, nausea, vomiting, GENITOURINARY: denies dysuria, urgency, frequency, EXTREMITY: denies swelling MUSCULOSKELETAL: denies current joint pain or tenderness NEUROLOGIC: denies focal numbness, weakness, tingling HEMATOLOGIC: denies easy bruising and/or hemorrhage INTEGUMENT: denies rashes PSYCHIATRIC: denies suicidal or homicidal ideation Vital Signs Vital Signs Vital Signs: 07/04/20 05:33 07/04/20 06:38 07/04/20 08:12 Temperature 97.4 F L Temperature Source Oral Pulse Rate 88 76 83 Respiratory Rate 18 18 16 Blood Pressure 149/78 H 133/73 H 128/72 H Blood Pressure Mean 101 93 90 Pulse Ox 96 98 96 Oxygen Delivery Method Room Air Room Air Room Air 07/04/20 09:53 Temperature Temperature Source Pulse Rate 81 Respiratory Rate 18 Blood Pressure 130/76 H Blood Pressure Mean 94 Pulse Ox 98 Oxygen Delivery Method Room Air Physical Exam Const no apparent distress General Appearance: cooperative and well kempt Nutritional Appearance: obese HEENT head/scalp atraumatic, moist oral mucous membranes and dentition normal Eyes conjunctivae normal, no scleral icterus and no papilledema Neck No nuchal rigidity, no lymphadenopathy and thyroid normal Lymph Lymphatic: no lymphadenopathy noted Resp no use of accessory muscles Effort and Inspection: symmetric chest movement; Negative for tracheal deviation Auscultation: diminished lung sounds Cardio regular rate, regular rhythm, no gallops and no clicks GI non-distended GI Narrative: Stoma right lower quadrant no CVA tenderness Extremity no calf tenderness and no pedal edema General Extremity: Negative for clubbing or cyanosis Skin no jaundice, no petechiae and no mottling Neuro moves all extremities and no focal motor deficits Psych cooperative and affect normal Appearance: grossly normal Attitude: engaged Lab / Micro Data Result Diagrams: 07/04/20 05:33 07/04/20 05:33 Labs: Laboratory Results - last 24 hr 07/04/20 07/04/20 07/04/20 05:33 05:33 05:33 WBC 7.0 RBC 4.07 L Hgb 13.1 Hct 40.5 MCV 99.5 H MCH 32.2 H MCHC 32.3 RDW Std Deviation 58.6 H RDW Coeff of Arlin 16.3 H Plt Count 132 L MPV 12.2 H Immature Gran % (Auto) 0.400 Neut % (Auto) 79.7 H Lymph % (Auto) 7.7 L [place] % (Auto) 10.5 H Eos % (Auto) 1.1 Baso % (Auto) 0.6 Absolute Neuts (auto) 5.6 Absolute Lymphs (auto) 0.54 L Nucleated RBC % 0 Differential Comment SCANNED Sodium 137 Potassium 4.7 Chloride 102 Carbon Dioxide 27.0 Anion Gap 8 BUN 25 H Creatinine 2.43 H Estim Creat Clear Calc 28.79 Est GFR (MDRD) Af Amer 34 L Est GFR (MDRD) Non-Af 28 L BUN/Creatinine Ratio 10.3 Glucose 176 H Lactic Acid 2.3 H* Calcium 9.6 Total Bilirubin 0.80 AST 47 H ALT 38 Alkaline Phosphatase 158 H Total Protein 7.5 Albumin 3.2 Globulin 4.3 H Albumin/Globulin Ratio 0.7 L Micro: Microbiology 07/04/20 05:33 SARS-CoV-2 Antigen (Rapid) - Final Mucosa - Nasopharyngeal Radiology Impression Abdomen CT 07/04/20 05:45 IMPRESSION: Diffuse fatty infiltration of the liver without a discrete lesion. Small bowel ileus, no demonstrated obstruction. I suspect this is likely due to the presence of a right lower quadrant stoma as there is likely motility issues related to this. There is induration of the subcutaneous fat around the stoma suggesting inflammation. There is no demonstrated abscess. Diffuse atherosclerosis Degenerative bony changes Electronically Signed: Casa Gray MD at 8:31 EDT , Service support , Assessment & Plan Assessment/Plan (1) Ileus: (2) CKD (chronic kidney disease) stage 3, GFR 30-59 ml/min: (3) Colostomy in place: (4) Diabetes: (5) Hypertension: (6) Hypothyroidism: PLAN: Patient is a 70-year-old gentleman with history of carcinoid tumor involving the small intestine with previous surgery and recent complications including fistula for which he underwent repair at [facility] with subsequent Toth's pouch creation who presented with abdominal pain with associated nausea and vomiting. Imaging studies demonstrated ileus admitted to regular nursing floor for further management 1. Small bowel ileus ?In the patient with previous carcinoid tumor with complications including fistula with recent repair. Patient has been admitted to regular nursing floor managed conservatively with bowel rest pain meds IV fluid as well as antinausea medication with subsequent imaging studies ordered for 07/05/2020 2. Carcinoid tumor involving the small intestines ?With previous resection in 2010. Patient has complications including fistula for which he underwent repair. Has a Nohemy pouch in place 3. Chronic kidney disease stage III. Patient baseline creatinine ranges from 1.41 in 2007-3.17 in 2019. Creatinine on presentation was 2.43 started on IV hydration with subsequent monitoring of electrolyte 4. Lactic acidosis ?Patient does not have any evidence of infectious etiology do suspect patient small bowel ileus to be the cause 5.? 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 Salmon with oncology 6.? Coronary artery disease -With previous PCI 7.? Peripheral vascular disease, -with bilateral lower extremity stents 8. Hypertension - Blood pressure controlled, home medications continued with dose adjustment as needed 9. Dyslipidemia -Patient is on statin therapy, continued at home dose 10. Diabetes mellitus type 2 ?Patient home insulin regimen held in view of patient being kept n.p.o. as a result of his presenting complaints. Patient was placed on Accu-Cheks before meals and at bedtime with sliding scale coverage with plans to resume patient home regimen once his ileus resolves 11. BPH ?Patient is on tamsulosin 12. Hypothyroidism - Patient is on levothyroxine home dose continued 13.? Chronic diarrhea - From his carcinoid syndrome on Sandostatin q. monthly in addition to loperamide and Lomotil held 14. History of transurethral resection of multiple bladder tumor (transitional cell carcinoma) ?By Dr Olson on 05/06/2018 15. DVT prophylaxis - On enoxaparin; dose adjusted for kidney function Visit Charges OBSV E&M: 43523 Initial observation care L3
[2020-07-04 11:12] LABS: Lactic Acid 2.8 mmol/L (0.4-1.9)
[2020-07-04] MEDS: 0.9% Normal Saline 1,000 ML 150 ML IV ×2 (11:53→17:55)
[2020-07-04 12:25] LABS: Bedside Glucose 153 mg/dL (70-110)
--- NOTE | 2020-07-04 12:35 | CASEMGMT ---
Patient has a Healthcare Power of Slag Skimmer and a Healthcare Living Will on file at [facility]. His Cit[employer]aly is his Healthcare Power of Slag Skimmer. Ratna JUAREZ
[2020-07-04] MEDS: Dicyclomine 10 MG Capsule PO ×3 (12:51→21:37)
[2020-07-04] MEDS: Clopidogrel Bisulfate 75 MG Tablet PO (12:52)
[2020-07-04] MEDS: Pantoprazole Sodium 20 MG Tablet PO ×2 (12:52→21:38)
[2020-07-04] MEDS: Tamsulosin HCl 0.4 MG Capsule PO ×2 (12:52→17:09)
[2020-07-04] MEDS: amLODIPine 5 MG Tablet PO (12:52)
[2020-07-04] MEDS: Sodium Bicarbonate 650 MG Tablet PO (12:53)
[2020-07-04] MEDS: Levothyroxine 137 MCG Tablet PO (12:53)
[2020-07-04] MEDS: Enoxaparin 40 MG/0.4 ML Syringe SC (12:53)
[2020-07-04] MEDS: Finasteride 5 MG Tablet PO (12:53)
[2020-07-04] MEDS: Gabapentin 100 MG Capsule 200 MG PO (12:54)
[2020-07-04] MEDS: 0.9% Saline Lock 10 ML Syringe IV ×2 (12:55→16:10)
[2020-07-04] MEDS: HYDROmorphone 1 MG/ML Syringe IV ×2 (16:10→21:44)
[2020-07-04 16:31] LABS: Bedside Glucose 139 mg/dL (70-110)
[2020-07-04] MEDS: oxyCODONE 5 MG Tablet PO (19:28)
[2020-07-04] MEDS: Gabapentin 300 MG Capsule PO (21:37)
[2020-07-04] MEDS: Lidocaine 5% Patch 1 PATCH TOPICAL (21:37)
[2020-07-04] MEDS: DULoxetine Hcl 20 MG Capsule PO (21:39)
[2020-07-04 22:21] LABS: Bedside Glucose 139 mg/dL (70-110)
[2020-07-05] MEDS: 0.9% Normal Saline 1,000 ML 150 ML IV ×4 (00:35→19:50)
[2020-07-05 02:45] VITALS: BP 126/56; PULSE 87; RESP 16; TEMP 36.5; O2SAT 98
[2020-07-05] MEDS: HYDROmorphone 1 MG/ML Syringe IV (04:37)
[2020-07-05] MEDS: Dicyclomine 10 MG Capsule PO ×4 (06:18→19:43)
[2020-07-05] MEDS: Levothyroxine 137 MCG Tablet PO (06:18)
[2020-07-05 07:12] LABS: Absolute Lymphocyte Count 0.49 X10^3/uL (0.83-4.51); Absolute Neutrophil Count 2.3 X10^3/uL (2.0-7.7); Basophil# 0.03 X10^3/uL; Basophil% 0.9 % (0-1); Differential Indicated SCAN CRITERIA MET; Eosinophils% 2.9 % (0-5); Hematocrit 31.8 % (40-54); Hemoglobin 10.3 g/dL (13.0-16.5); Lymphocyte # 0.49 X10^3/ul (0.83-4.51); Lymphocyte % 14.4 % (19-41); Mean Corp Hgb Conc 32.4 g/dL (32-36); Mean Corpuscular Hgb 32.1 pg (27.0-32.0); Mean Corpuscular Volume 99.1 fL (80-94); Mean Platelet Vol. 12.2 fl (6.2-12.0); Monocyte# 0.48 X10^3/uL; Monocyte% 14.1 % (0-10); NRBC Flagged by Analyzer 0 % (0-5); Neutrophil # 2.28 X10^3/uL (2.7-7.7); Neutrophil % 67.1 % (47-70); POSITIVE DIFFERENTIAL YES; Platelet Count 113 K/mm3 (150-450); RBC Distribution Width CV 16.5 % (11.6-14.6); RBC Distribution Width SD 59.8 fl (35.1-43.9); Red Blood Count 3.21 M/mm3 (4.6-6.2); White Blood Count 3.4 K/mm3 (4.4-11.0)
[2020-07-05 07:47] LABS: Anion Gap 8 (5-15); BUN 24 mg/dL (7-18); BUN/Creat Ratio 10.8 RATIO (10-20); Calcium,Total 8.4 mg/dL (8.5-10.1); Chloride 107 mmol/L (98-107); Creatinine, Serum 2.22 mg/dL (0.70-1.30); EST Glomerular Filtration Rate 31 mL/min (>60); Est Glom Filt Rate - Afr Amer 38 mL/min (>60); Estimated Creatinine Clearance 32.51 ml/min; Glucose 140 mg/dL (74-106); Magnesium 1.9 mg/dL (1.6-2.6); Potassium 3.9 mmol/L (3.5-5.1); Sodium Level 139 mmol/L (136-145)
[2020-07-05] MEDS: Cyanocobalamin 500 MCG Tablet 1000 MCG PO (07:59)
[2020-07-05] MEDS: Tamsulosin HCl 0.4 MG Capsule PO ×2 (08:00→16:26)
[2020-07-05] MEDS: Gabapentin 100 MG Capsule 200 MG PO (08:00)
--- NOTE | 2020-07-05 08:23 | PCM.PN.HOSP ---
Subjective Subjective Patient is a 70-year-old gentleman with history of Crohn's disease as well as carcinoid tumor involving the small intestine with previous surgery and recent complications including fistula for which he underwent repair at [facility] with subsequent Toth's pouch creation who presented with abdominal pain with associated nausea and vomiting. Imaging studies demonstrated ileus admitted to regular nursing floor for further management Patient seen clinical condition improved. Undergo repeat imaging studies if there is no evidence of ileus patient be started on full liquid to be advanced as tolerated Objective Data Objective Data Vital Signs: Vital Signs Temp Pulse Resp BP Pulse Ox 97.7 F L 87 16 126/56 H 98 07/05/20 02:45 07/05/20 02:45 07/05/20 02:45 07/05/20 02:45 07/05/20 02:45 Oxygen Delivery Method Room Air Weight: 101.7 kg Body Mass Index (BMI) 31.2 Intake & Output: Intake and Output for Last 24 Hours 07/03/20 07/04/20 07/05/20 23:59 23:59 23:59 Intake Total 965 / 965 1862.5 / 1862.5 Output Total 1150 / 1150 550 / 550 Balance -185 / -185 1312.5 / 1312.5 Lab / Micro Data Result Diagrams: 07/05/20 06:10 07/05/20 06:10 Labs: Laboratory Results - last 24 hr 07/04/20 07/04/20 07/04/20 10:30 12:21 16:07 WBC RBC Hgb Hct MCV MCH MCHC RDW Std Deviation RDW Coeff of Arlin Plt Count MPV Immature Gran % (Auto) Neut % (Auto) Lymph % (Auto) [place] % (Auto) Eos % (Auto) Baso % (Auto) Absolute Neuts (auto) Absolute Lymphs (auto) Nucleated RBC % Diff Path Review Sodium Potassium Chloride Carbon Dioxide Anion Gap BUN Creatinine Estim Creat Clear Calc Est GFR (MDRD) Af Amer Est GFR (MDRD) Non-Af BUN/Creatinine Ratio Glucose Lactic Acid 2.8 H* Calcium Magnesium POC Glucose 153 H 139 H 07/04/20 07/05/20 07/05/20 21:37 06:10 06:10 WBC 3.4 L RBC 3.21 L Hgb 10.3 L Hct 31.8 L MCV 99.1 H MCH 32.1 H MCHC 32.4 RDW Std Deviation 59.8 H RDW Coeff of Arlin 16.5 H Plt Count 113 L MPV 12.2 H Immature Gran % (Auto) 0.600 Neut % (Auto) 67.1 Lymph % (Auto) 14.4 L [place] % (Auto) 14.1 H Eos % (Auto) 2.9 Baso % (Auto) 0.9 Absolute Neuts (auto) 2.3 Absolute Lymphs (auto) 0.49 L Nucleated RBC % 0 Diff Path Review May foll Sodium 139 Potassium 3.9 Chloride 107 Carbon Dioxide 24.0 Anion Gap 8 BUN 24 H Creatinine 2.22 H Estim Creat Clear Calc 32.51 Est GFR (MDRD) Af Amer 38 L Est GFR (MDRD) Non-Af 31 L BUN/Creatinine Ratio 10.8 Glucose 140 H Lactic Acid Calcium 8.4 L Magnesium 1.9 POC Glucose 139 H Micro: Microbiology 07/04/20 05:33 Mucosa - Nasopharyngeal SARS-CoV-2 Antigen (Rapid) - Final Radiography Diagnostic Testing: Radiology Impression Abdomen CT 07/04/20 05:45 IMPRESSION: Diffuse fatty infiltration of the liver without a discrete lesion. Small bowel ileus, no demonstrated obstruction. I suspect this is likely due to the presence of a right lower quadrant stoma as there is likely motility issues related to this. There is induration of the subcutaneous fat around the stoma suggesting inflammation. There is no demonstrated abscess. Diffuse atherosclerosis Degenerative bony changes Electronically Signed: Casa Gray MD at 8:31 EDT , Service support , Physical Exam Const no apparent distress General Appearance: cooperative and well kempt Nutritional Appearance: obese HEENT head/scalp atraumatic, moist oral mucous membranes and dentition normal Eyes conjunctivae normal, no scleral icterus and no papilledema Neck No nuchal rigidity, no lymphadenopathy and thyroid normal Lymph Lymphatic: no lymphadenopathy noted Resp no use of accessory muscles Effort and Inspection: symmetric chest movement; Negative for tracheal deviation Auscultation: diminished lung sounds Cardio regular rate, regular rhythm, no gallops and no clicks GI non-distended GI Narrative: Stoma right lower quadrant no CVA tenderness Extremity no calf tenderness and no pedal edema General Extremity: Negative for clubbing or cyanosis Skin no jaundice, no petechiae and no mottling Neuro moves all extremities and no focal motor deficits Psych cooperative and affect normal Appearance: grossly normal Attitude: engaged Assessment & Plan Assessment/Plan (1) Ileus: (2) CKD (chronic kidney disease) stage 3, GFR 30-59 ml/min: (3) Colostomy in place: (4) Diabetes: (5) Hypertension: (6) Hypothyroidism: PLAN: Patient is a 70-year-old gentleman with history of Crohn's disease as well as carcinoid tumor involving the small intestine with previous surgery and recent complications including fistula for which he underwent repair at [facility] with subsequent Toth's pouch creation who presented with abdominal pain with associated nausea and vomiting. Imaging studies demonstrated ileus admitted to regular nursing floor for further management 1. Small bowel ileus ?In the patient with previous Crohn's disease and carcinoid tumor with complications including fistula with recent repair. Patient has been admitted to regular nursing floor managed conservatively with bowel rest pain meds IV fluid as well as antinausea medication with subsequent imaging studies ordered for 07/05/2020 -07/05/2020; Patient seen clinical condition improved. Undergo repeat imaging studies if there is no evidence of ileus patient be started on full liquid to be advanced as tolerated 2. Carcinoid tumor involving the small intestines ?With previous resection in 2010. Patient has complications including fistula for which he underwent repair. Has a Nohemy pouch in place 3. Crohn's disease ?Patient is on patient is on Biologics 4. Chronic kidney disease stage III. Patient baseline creatinine ranges from 1.41 in 2007-3.17 in 2019. Creatinine on presentation was 2.43 started on IV hydration with subsequent monitoring of electrolyte - 5.? 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 Salmon with oncology 6.? Coronary artery disease -With previous PCI 7.? Peripheral vascular disease, -with bilateral lower extremity stents 8. Hypertension - Blood pressure controlled, home medications continued with dose adjustment as needed 9. Dyslipidemia -Patient is on statin therapy, continued at home dose 10. Diabetes mellitus type 2 ?Patient home insulin regimen held in view of patient being kept n.p.o. as a result of his presenting complaints. Patient was placed on Accu-Cheks before meals and at bedtime with sliding scale coverage with plans to resume patient home regimen once his ileus resolves 11. BPH ?Patient is on tamsulosin 12. Hypothyroidism - Patient is on levothyroxine home dose continued 13.? Chronic diarrhea - From his carcinoid syndrome on Sandostatin q. monthly in addition to loperamide and Lomotil held 14. History of transurethral resection of multiple bladder tumor (transitional cell carcinoma) ?By Dr Olson on 05/06/2018 15. DVT prophylaxis - On enoxaparin; dose adjusted for kidney function Visit Charges OBSV E&M: 28034 Subsequent observation care L2
[2020-07-05 08:45] VITALS: BP 117/60; PULSE 75; RESP 18; TEMP 36.7; O2SAT 95
[2020-07-05] MEDS: Finasteride 5 MG Tablet PO (08:50)
[2020-07-05] MEDS: Clopidogrel Bisulfate 75 MG Tablet PO (08:50)
[2020-07-05] MEDS: Sodium Bicarbonate 650 MG Tablet PO (08:50)
[2020-07-05] MEDS: Pantoprazole Sodium 20 MG Tablet PO ×2 (08:50→19:43)
[2020-07-05] MEDS: amLODIPine 5 MG Tablet PO (08:50)
--- NOTE | 2020-07-05 10:16 | RAD_ITS ---
STUDY: X-RAY - ABDOMEN/PELVIS REASON FOR EXAM: Male, 70 years old. Abdominal Pain TECHNIQUE: 3 AP views COMPARISON: None. FINDINGS: Normal visualized lung bases. There is an unremarkable bowel gas pattern. There is no demonstrated free abdominal air. The visualized liver, spleen and kidneys are grossly normal in size and morphology. Normal soft tissue structures. There are diffuse degenerative changes of the visualized lumbar spine. RAD/Abdomen Single View IMPRESSION: No acute findings Electronically Signed: Casa Gray MD at 10:54 EDT , Service support ,
[2020-07-05] MEDS: 0.9% Saline Lock 10 ML Syringe IV (10:50)
[2020-07-05 11:36] LABS: Bedside Glucose 153 mg/dL (70-110)
[2020-07-05 11:37] LABS: Bedside Glucose 148 mg/dL (70-110)
[2020-07-05] MEDS: oxyCODONE 5 MG Tablet PO ×2 (12:29→19:43)
[2020-07-05] MEDS: Creon 24,000 unit DR Capsule 3 CAP PO ×2 (12:49→16:26)
[2020-07-05 14:45] VITALS: BP 122/60; PULSE 88; RESP 16; TEMP 36.7; O2SAT 96
[2020-07-05 16:30] LABS: Bedside Glucose 162 mg/dL (70-110)
[2020-07-05] MEDS: Insulin Lispro 100 UNIT/ML INSULN.PEN SC ×2 (16:31→21:50)
[2020-07-05] MEDS: Gabapentin 300 MG Capsule PO (19:43)
[2020-07-05] MEDS: DULoxetine Hcl 20 MG Capsule PO (19:49)
--- NOTE | 2020-07-05 19:51 | NURSING ---
pt requested all medication given at this time
[2020-07-05 20:45] VITALS: BP 164/71; PULSE 80; RESP 18; TEMP 36.8; O2SAT 98
[2020-07-05] MEDS: Acetaminophen 325 MG Tablet 650 MG PO (21:52)
[2020-07-05 21:56] LABS: Bedside Glucose 162 mg/dL (70-110)
[2020-07-06 03:00] VITALS: BP 137/72; PULSE 80; RESP 18; TEMP 36.6; O2SAT 98
[2020-07-06] MEDS: 0.9% Normal Saline 1,000 ML 150 ML IV ×2 (03:30→08:51)
[2020-07-06] MEDS: Levothyroxine 137 MCG Tablet PO (05:23)
[2020-07-06] MEDS: Dicyclomine 10 MG Capsule PO ×2 (05:24→11:03)
[2020-07-06 05:31] LABS: Bedside Glucose 144 mg/dL (70-110)
[2020-07-06 08:44] VITALS: BP 125/70; PULSE 86; RESP 18; TEMP 36.6; O2SAT 96
[2020-07-06] MEDS: Cyanocobalamin 500 MCG Tablet 1000 MCG PO (08:45)
[2020-07-06] MEDS: Gabapentin 100 MG Capsule 200 MG PO (08:46)
[2020-07-06] MEDS: Tamsulosin HCl 0.4 MG Capsule PO (08:46)
[2020-07-06] MEDS: Creon 24,000 unit DR Capsule 3 CAP PO ×2 (08:46→11:02)
[2020-07-06] MEDS: Sodium Bicarbonate 650 MG Tablet PO (08:47)
[2020-07-06] MEDS: Clopidogrel Bisulfate 75 MG Tablet PO (08:47)
[2020-07-06] MEDS: Finasteride 5 MG Tablet PO (08:47)
[2020-07-06] MEDS: amLODIPine 5 MG Tablet PO (08:47)
[2020-07-06] MEDS: Pantoprazole Sodium 20 MG Tablet PO (08:47)
[2020-07-06] MEDS: oxyCODONE 5 MG Tablet PO (08:51)
[2020-07-06] MEDS: Acetaminophen 325 MG Tablet 650 MG PO (08:51)
--- NOTE | 2020-07-06 10:02 | CASEMGMT ---
PATRICIA NÚÑEZ Assessment: Face to Face with pt for initial transition planning/care coordination assessment. RN NIYA introduced self and role at [facility], pt voices understanding and consents to assessment. Pt is A/O x4 and answers all questions appropriately at this time. Pt lying in bed in no distress. Care providers, pharmacy, and demographics verified/updated. Admitting Dx: abd pain PCP: [facility] Specialists: Pt states he has 10 specialists and is not sure who they are, states knows. [facility]erred [facility]acy[facility] Insurance: [facility], [employer] Prescription Benefit: yes LW/HPOA: Pt has a LW/DPOA and it is on file at [facility]. Pt DPOA is [employer]. LNOK: [employer] [place], Living Arrangements: Pt lives with in a single story house with 3 steps to enter. Pt states he is I in ADL's and denies concerns at home. Transportation: Pt drives him to medical appts. Pt denies concerns with transportation. DME/HHC/SNF: Pt has a w/c, rollator and cane. Pt has recently had bathroom remodeled and states their are grabbars. States all of his rugs are tacked down in the home. He states he has had HHC in the past and I dont like it. Pt denies SNF stay. Pt states no concerns with going home at time of dc. Pt states no further concerns/needs. CM to follow. Advised pt to ask CM if any further question/concerns/needs arise, voices understanding. Pt Goal: Home Plan: Home with support.
[2020-07-06] MEDS: Insulin Lispro 100 UNIT/ML INSULN.PEN SC (11:03)
--- NOTE | 2020-07-06 11:07 | DS.PCM_ITS ---
Providers Date of Admission: 07/05/20 Primary Care Physician: Dr. Analisa Nogueira MD Reason For Visit: ABDOMINAL PAIN Diagnosis Discharge Diagnosis (1) Ileus: Status: Acute Code(s): K56.7 - Ileus, unspecified (2) CKD (chronic kidney disease) stage 3, GFR 30-59 ml/min: Status: Chronic Code(s): N18.30 - Chronic kidney disease, stage 3 unspecified (3) Colostomy in place: Status: Acute Code(s): Z93.3 - Colostomy status (4) Diabetes: Status: Acute Code(s): E11.9 - Type 2 diabetes mellitus without complications (5) Hypertension: Status: Chronic Code(s): I10 - Essential (primary) hypertension (6) Hypothyroidism: Status: Acute Code(s): E03.9 - Hypothyroidism, unspecified Medications at Discharge Home Medications Creon 3 cap PO TIDCM 08/22/16 amlodipine 5 mg PO DAILY 08/22/16 dicyclomine 10 mg PO ACHS 08/22/16 diphenoxylate-atropine [Lomotil] 1 ea PO Q6H 08/22/16 duloxetine 20 mg PO QHS 08/22/16 finasteride 5 mg PO DAILY 08/22/16 furosemide 20 mg PO DAILY 08/22/16 gabapentin [Neurontin] 300 mg PO QHS 08/22/16 insulin asp prt-insulin aspart [Novolog Mix 70-30 U-100 Insuln] 30 unit SQ DINNER 08/22/16 levothyroxine 137 mcg PO DAILY 08/22/16 metoprolol tartrate [Lopressor] 25 mg PO BID 08/22/16 tamsulosin 0.4 mg PO BID 08/22/16 cholecalciferol (vitamin D3) 50,000 unit PO TUTH 10/25/16 clopidogrel 75 mg PO DAILY 10/25/16 cyanocobalamin (vitamin B-12) 1,000 mcg SUBLINGUAL DAILY 10/25/16 rosuvastatin [Crestor] 5 mg PO MOTH 10/25/16 Sandostatin LAR Depot 10 mg IM QMONTH 11/19/16 cyanocobalamin (vitamin B-12) 100 mcg IM Q7D 11/19/16 Melatonin 10 mg SUBLINGUAL QHS PRN 04/29/18 insulin asp prt-insulin aspart [Novolog Mix 70-30 U-100 Insuln] 40 unit SQ BREAKFAST 04/29/18 oxycodone 5 mg PO Q8 PRN 04/29/18 pantoprazole 20 mg PO BID 04/29/18 spironolactone 25 mg PO DAILY 04/29/18 acetaminophen 500 mg PO Q4H PRN PRN #20 tablet 05/06/18 colestipol 1 g PO BID 07/04/20 gabapentin 200 mg PO DAILY 07/04/20 lidocaine HCl 1 applic TRANSDERMAL QHS 07/04/20 loperamide 2 mg PO Q6H 07/04/20 nicotine (polacrilex) 2 mg PO Q2H PRN PRN 07/04/20 ondansetron HCl 8 mg PO Q8H PRN 07/04/20 sildenafil [Viagra] 100 mg PO DAILY PRN 07/04/20 sodium bicarbonate 650 mg PO DAILY 07/04/20 thiamine HCl (vitamin B1) 1,850 mg PO DAILY 07/04/20 Hospital Course Summary of Care Provided Minutes Spent on Discharge: 35 Hospital Course: ?Patient is a 70-year-old gentleman with history of Crohn's disease as well as carcinoid tumor involving the small intestine with previous surgery and recent complications including fistula for which he underwent repair at [facility] with subsequent Toth's pouch creation who presented with abdominal pain with associated nausea and vomiting.? Imaging studies demonstrated ileus admitted to regular nursing floor for further management 1.? Small bowel ileus ?In the patient with previous Crohn's disease and carcinoid tumor with complications including fistula with recent repair.? Patient has been admitted to regular nursing floor managed conservatively with bowel rest pain meds IV fluid as well as antinausea medication with subsequent imaging studies ordered for 07/05/2020 -07/05/2020; Patient seen clinical condition improved. Undergo repeat imaging studies if there is no evidence of ileus patient be started on full liquid to be advanced as tolerated -07/06/2020; patient was deemed stable for discharge 2.? Carcinoid tumor involving the small intestines ?With previous resection in 2010.? Patient has complications including fistula for which he underwent repair.? Has a Nohemy pouch in place 3.? Crohn's disease ?Patient is on patient is on Biologics 4.? Chronic kidney disease stage III. Patient baseline creatinine ranges from 1.41 in 2007-3.17 in 2019.? Creatinine on presentation was 2.43 started on IV hydration with subsequent monitoring of electrolyte - 5.? 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 Salmon with oncology 6.? Coronary artery disease -With previous PCI 7.? Peripheral vascular disease, -with bilateral lower extremity stents 8.? Hypertension - Blood pressure controlled, home medications continued with dose adjustment as needed 9.? Dyslipidemia -Patient is on statin therapy, continued at home dose 10.? Diabetes mellitus type 2 ?Patient home insulin regimen held in view of patient being kept n.p.o. as a result of his presenting complaints.? Patient was placed on Accu-Cheks before meals and at bedtime with sliding scale coverage with plans to resume patient home regimen once his ileus resolves 11.? BPH ?Patient is on tamsulosin 12.? Hypothyroidism - Patient is on levothyroxine home dose continued 13.? Chronic diarrhea - From his carcinoid syndrome on Sandostatin q. monthly in addition to loperamide and Lomotil held 14.? 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 DVT prophylaxis - On enoxaparin; dose adjusted for kidney function Physical Exam Narrative GENERAL: cooperative HEENT: Atraumatic; EYES; Anicteric, Normal Conjunctiva NECK; supple, normal thyroid, RESPIRATORY: Diminished to auscultation CARDIOVASCULAR: Regular S1 S2, SKIN: No Rash PSYCH; Flat affect ABG / Lab / Microbiology Data Result Diagrams: 07/05/20 06:10 07/05/20 06:10 Laboratory: Laboratory Results - last 24 hr 07/05/20 07/05/20 07/05/20 06:23 11:05 16:24 POC Glucose 153 H 148 H 162 H 07/05/20 07/06/20 21:48 05:23 POC Glucose 162 H 144 H Microbiology: Microbiology 07/04/20 05:33 Mucosa - Nasopharyngeal SARS-CoV-2 Antigen (Rapid) - Final D/C Instructions Discharge Diet: 1800 Calorie Control Diet Meaningful Use Info Meaningful Use Diagnoses (Choose all that apply): None applicable Discharge Plan Admission Admit Date/Time: 07/05/20 12:40 Primary Reason for Your Visit: Ileus Attending Provider: Damon Chu Primary Care Provider: Analisa Nogueira Discharge Orders/Prescriptions Prescriptions: Continued furosemide 40 MG tablet 20 mg PO DAILY RF: 0 levothyroxine 137 MCG tablet 137 mcg PO DAILY RF: 0 metoprolol tartrate [Lopressor] 100 MG tablet 25 mg PO BID RF: 0 diphenoxylate-atropine [Lomotil] 1 EACH tablet 1 ea PO Q6H RF: 0 amlodipine 5 MG tablet 5 mg PO DAILY RF: 0 tamsulosin 0.4 MG capsule 0.4 mg PO BID RF: 0 gabapentin [Neurontin] 300 MG capsule 300 mg PO QHS RF: 0 dicyclomine 10 MG capsule 10 mg PO ACHS RF: 0 finasteride 5 MG tablet 5 mg PO DAILY RF: 0 insulin asp prt-insulin aspart [Novolog Mix 70-30 U-100 Insuln] 100 UNIT/ML solution 30 unit SQ DINNER RF: 0 duloxetine 20 MG capsule,delayed release(DR/EC) 20 mg PO QHS RF: 0 Creon 1 EACH capsule,delayed release(DR/EC) 3 cap PO TIDCM RF: 0 cyanocobalamin (vitamin B-12) 1,000 MCG tablet 1,000 mcg sublingual DAILY RF: 0 clopidogrel 75 MG tablet 75 mg PO DAILY RF: 0 rosuvastatin [Crestor] 5 MG tablet 5 mg PO MOTH RF: 0 cholecalciferol (vitamin D3) 50,000 UNIT capsule 50,000 unit PO TUTH RF: 0 cyanocobalamin (vitamin B-12) 1,000 MCG/ML solution 100 mcg IM Q7D RF: 0 Sandostatin LAR Depot 10 MG suspension,extended rel recon 10 mg IM QMONTH RF: 0 spironolactone 25 MG tablet 25 mg PO DAILY RF: 0 pantoprazole 20 MG tablet 20 mg PO BID RF: 0 oxycodone 5 MG tablet 5 mg PO Q8 PRN (Reason: Pain) RF: 0 insulin asp prt-insulin aspart [Novolog Mix 70-30 U-100 Insuln] 100 UNIT/ML solution 40 unit SQ BREAKFAST RF: 0 Melatonin 10 MG Tab.Subl 10 mg sublingual QHS PRN (Reason: Sleep) RF: 0 acetaminophen 500 MG tablet 500 mg PO Q4H PRN PRN (Reason: Pain) Qty: 20 RF: 0 lidocaine HCl 5 % Ointment 1 applic transdermal QHS RF: 0 colestipol 1 gram Tablet 1 g PO BID RF: 0 gabapentin 100 mg Tablet 200 mg PO DAILY RF: 0 loperamide 2 mg Capsule 2 mg PO Q6H RF: 0 nicotine (polacrilex) 2 mg Gum 2 mg PO Q2H PRN PRN (Reason: Smoking Cessation) RF: 0 ondansetron HCl 8 mg Tablet 8 mg PO Q8H PRN (Reason: Nausea) RF: 0 sildenafil [Viagra] 100 mg Tablet 100 mg PO DAILY PRN (Reason: Sexual Activity) RF: 0 sodium bicarbonate 650 mg Tablet 650 mg PO DAILY RF: 0 thiamine HCl (vitamin B1) 250 mg Tablet 1,850 mg PO DAILY RF: 0 Referrals / Follow Up: Analisa Nogueira MD [Primary Care Provider] - In 1 Week Disposition Disposition (needs filled in before D/C Order can be placed): Home, self care Visit Charges Inpatient E&M: 48174 Disch Hosp
[2020-07-06 11:21] LABS: Bedside Glucose 217 mg/dL (70-110)
[2020-07-06 12:26] LABS: Pathologist Review Reviewed
== END 2020-07-06 12:57 | disposition home or self-care (01) | DRG 389 ==
LOC: ED 06:13 → PCU 11:11
PROVIDERS: Admitting Provider Internal Medicine; Emergency Provider Emergency Medicine; PCP Internal Medicine; Visit Provider Internal Medicine
DX: K56.7 Ileus, unspecified (principal); K50.90 Crohn's disease, unspecified, without complications; E34.0 Carcinoid syndrome; E11.51 Type 2 diabetes mellitus with diabetic peripheral angiopathy without gangrene; E11.22 Type 2 diabetes mellitus with diabetic chronic kidney disease; N18.32 Chronic kidney disease, stage 3b; I25.10 Atherosclerotic heart disease of native coronary artery without angina pectoris; E03.9 Hypothyroidism, unspecified; I12.9 Hypertensive chronic kidney disease with stage 1 through stage 4 chronic kidney disease, or unspecified chronic kidney disease; G47.30 Sleep apnea, unspecified; E78.5 Hyperlipidemia, unspecified; N40.0 Benign prostatic hyperplasia without lower urinary tract symptoms; Z79.899 Other long term (current) drug therapy; Z79.02 Long term (current) use of antithrombotics/antiplatelets; Z79.4 Long term (current) use of insulin; Z87.891 Personal history of nicotine dependence; Z93.3 Colostomy status; Z87.19 Personal history of other diseases of the digestive system; Z85.50 Personal history of malignant neoplasm of unspecified urinary tract organ
CPT/HCPCS: 36415; 74018; 74176; 80048; 80053; 82962; 83605; 83735; 85025; 87426; 99285; J7030; A4216; J2405

== ENCOUNTER 2020-09-10 13:44 | Outpatient (RCR) | payer MEDICARE, OTHER, SELFPAY ==
[2020-07-04 11:56] VITALS: BMI 31.2
[2020-09-10 13:55] LABS: Hemoglobin 12.3 g/dL (13.0-16.5); Mean Corp Hgb Conc 34.2 g/dL (32-36); Mean Corpuscular Hgb 33.1 pg (27.0-32.0); Mean Corpuscular Volume 96.8 fL (80-94); Mean Platelet Vol. 13.5 fl (6.2-12.0); POSITIVE COUNT YES; Platelet Count 84 K/mm3 (150-450); RBC Distribution Width CV 14.4 % (11.6-14.6); RBC Distribution Width SD 51.1 fl (35.1-43.9); Red Blood Count 3.72 M/mm3 (4.6-6.2); White Blood Count 5.2 K/mm3 (4.4-11.0)
[2020-09-10 13:57] LABS: Scan Indicated on CBC? Y/N YES- FLAGS NOTED
[2020-09-10 14:11] LABS: ALB/GLOB Ratio 0.8 RATIO (0.9-2.4); AST(SGOT) 23 U/L (15-37); Alanine Aminotransfer ALT/SGPT 26 U/L (16-61); Albumin, Serum 2.9 g/dL (3.2-5.0); Alkaline Phosphatase 103 U/L (45-117); Anion Gap 6 (5-15); BUN 38 mg/dL (7-18); BUN/Creat Ratio 20.8 RATIO (10-20); Calcium,Total 8.7 mg/dL (8.5-10.1); Chloride 103 mmol/L (98-107); Creatinine, Serum 1.83 mg/dL (0.70-1.30); EST Glomerular Filtration Rate 39 mL/min (>60); Est Glom Filt Rate - Afr Amer 47 mL/min (>60); Globulin 3.7 g/dL (2.2-4.2); Glucose 83 mg/dL (74-106); Magnesium 2.1 mg/dL (1.6-2.6); Phosphorus 3.7 mg/dL (2.5-4.9); Potassium 4.4 mmol/L (3.5-5.1); Protein, Total 6.6 g/dL (6.4-8.2); Sodium Level 138 mmol/L (136-145)
== END 2020-09-10 18:00 | disposition home or self-care (01) ==
LOC: HHLAB 13:44
PROVIDERS: PCP Internal Medicine; Visit Provider Internal Medicine
DX: K50.018 Crohn's disease of small intestine with other complication (principal)
CPT/HCPCS: 80053; 83735; 84100; 85027

== ENCOUNTER 2020-10-30 12:59 | Outpatient (RCR) | payer MEDICARE, OTHER, SELFPAY ==
[2020-07-04 11:56] VITALS: BMI 31.2
[2020-10-30 13:51] LABS: Hematocrit 39.2 % (40-54); Hemoglobin 13.2 g/dL (13.0-16.5); Mean Corp Hgb Conc 33.7 g/dL (32-36); Mean Corpuscular Hgb 33.2 pg (27.0-32.0); Mean Corpuscular Volume 98.5 fL (80-94); POSITIVE COUNT YES; Platelet Count 92 K/mm3 (150-450); RBC Distribution Width SD 51.2 fl (35.1-43.9); Red Blood Count 3.98 M/mm3 (4.6-6.2); White Blood Count 4.5 K/mm3 (4.4-11.0)
[2020-10-30 14:00] LABS: ALB/GLOB Ratio 0.7 RATIO (0.9-2.4); AST(SGOT) 36 U/L (15-37); Alanine Aminotransfer ALT/SGPT 47 U/L (16-61); Alkaline Phosphatase 145 U/L (45-117); Anion Gap 7 (5-15); BUN 37 mg/dL (7-18); BUN/Creat Ratio 20.7 RATIO (10-20); Chloride 103 mmol/L (98-107); Creatinine, Serum 1.79 mg/dL (0.70-1.30); EST Glomerular Filtration Rate 40 mL/min (>60); Est Glom Filt Rate - Afr Amer 48 mL/min (>60); Globulin 4.4 g/dL (2.2-4.2); Glucose 189 mg/dL (74-106); Magnesium 2.1 mg/dL (1.6-2.6); Phosphorus 3.9 mg/dL (2.5-4.9); Potassium 4.2 mmol/L (3.5-5.1); Protein, Total 7.4 g/dL (6.4-8.2); Sodium Level 138 mmol/L (136-145)
[2020-10-30 15:17] LABS: Scan Indicated on CBC? Y/N YES- FLAGS NOTED
[2020-11-07 18:02] LABS: Copper, Serum or Plasma 93 ug/dL (69-132); Zinc, Plasma or Serum 57 ug/dL (44-115)
== END 2020-10-30 18:00 | disposition home or self-care (01) ==
LOC: HHLAB 12:59
PROVIDERS: PCP Internal Medicine; Visit Provider Internal Medicine
DX: K50.018 Crohn's disease of small intestine with other complication (principal); Z45.2 Encounter for adjustment and management of vascular access device
CPT/HCPCS: 80053; 82525; 83735; 84100; 84630; 85027; 86140

== ENCOUNTER 2020-11-27 09:05 | Observation (INO) | payer MEDICARE, OTHER, SELFPAY ==
[2020-11-27] VITALS (9 sets, daily range): BP systolic 135–160; BP diastolic 73–85; PULSE 73–85; RESP 16–19; TEMP 36.7–37.9; O2SAT 95–98; BMI 34.7; BMI 34.1
--- NOTE | 2020-11-27 09:17 | EKG12_ITS ---
Test Reason : GENERAL ILLNESS Blood Pressure : / mmHG Vent. Rate : 082 BPM Atrial Rate : 082 BPM P-R Int : 142 ms QRS Dur : 132 ms QT Int : 394 ms P-R-T Axes : 051 092 015 degrees QTc Int : 460 ms Normal sinus rhythm Right bundle branch block Abnormal ECG Confirmed by NICKI ORDONEZ, CHANDNI ([id number]), news videotape editor MANNY BECKHAM ([id number]) on 11/29/2020 9:15:59 AM Referred By: CEE Confirmed By:CHANDNI CCAERES MD
--- NOTE | 2020-11-27 09:17 | RAD_ITS ---
STUDY: X-RAY CHEST REASON FOR EXAM: Male, 70 years old. Cough TECHNIQUE: Single AP portable view of the chest. COMPARISON: Comparison is made with prior study dated 08/22/2016. FINDINGS: A right-sided central venous catheter is seen with the tip at the junction of the superior vena cava and right atrium. Mild elevation of the right hemidiaphragm. The lungs are clear. There is no demonstrated pleural abnormality. Normal size heart. Normal mediastinum and [place]. Normal visualized pulmonary arteries. Normal visualized aortic arch and descending thoracic aorta. There are diffuse degenerative changes of the visualized thoracic spine. Normal visualized ribs, clavicles, and shoulders. There is no demonstrated abnormality of the visualized soft tissue structures of the upper abdomen. RAD/Chest 1 View (Portable) IMPRESSION: No acute abnormality is seen. Electronically Signed: Gerard Garcia MD at 10:23 EDT , Service support ,
--- NOTE | 2020-11-27 09:18 | EX.ED.DYSGE1 ---
HPI History of Present Illness Chief Complaint: General Illness Narrative Narrative: Patient presents with generalized weakness, fever at home cough which is mildly productive. He is Covid immunized. He feels quite weak. He has no urinary symptoms he has no rashes no neck pain or stiffness he does not have a headache or upper airway congestion. [facility] Medical History BiPAP (biphasic positive airway pressure) dependence CKD (chronic kidney disease) stage 3, GFR 30-59 ml/min Coronary artery disease Diabetes Hypertension Hypothyroidism Ileus Kidney disease Sleep apnea Home Medications Creon 3 cap PO TIDCM 08/22/16 [History Last Taken 08/21/16] amlodipine 5 mg PO DAILY 08/22/16 [History Last Taken 07/03/20 08:00] dicyclomine 10 mg PO ACHS 08/22/16 [History Last Taken 07/03/20 08:00] diphenoxylate-atropine [Lomotil] 1 ea PO Q6H 08/22/16 [History Last Taken 07/03/20 08:00] duloxetine 20 mg PO QHS 08/22/16 [History Last Taken 07/03/20 21:00] finasteride 5 mg PO DAILY 08/22/16 [History Last Taken 07/03/20 08:00] furosemide 20 mg PO DAILY 08/22/16 [History Last Taken 07/03/20 08:00] gabapentin [Neurontin] 300 mg PO QHS 08/22/16 [History Last Taken 07/03/20 21:00] insulin asp prt-insulin aspart [Novolog Mix 70-30 U-100 Insuln] 30 unit SQ DINNER 08/22/16 [History Last Taken 07/03/20 17:00] levothyroxine 137 mcg PO DAILY 08/22/16 [History Last Taken 07/03/20 06:00] metoprolol tartrate [Lopressor] 25 mg PO BID 08/22/16 [History Last Taken 07/03/20 08:00] tamsulosin 0.4 mg PO BID 08/22/16 [History Last Taken 07/03/20 17:00] cholecalciferol (vitamin D3) 50,000 unit PO TUTH 10/25/16 [History Last Taken 07/03/20 08:00] clopidogrel 75 mg PO DAILY 10/25/16 [History Last Taken 07/03/20 08:00] cyanocobalamin (vitamin B-12) 1,000 mcg SUBLINGUAL DAILY 10/25/16 [History Last Taken Unknown] rosuvastatin [Crestor] 5 mg PO MOTH 10/25/16 [History Last Taken 07/03/20 08:00] Sandostatin LAR Depot 10 mg IM QMONTH 11/19/16 [History Last Taken 06/20/20] cyanocobalamin (vitamin B-12) 100 mcg IM Q7D 11/19/16 [History Last Taken 06/28/20 08:00] Melatonin 10 mg SUBLINGUAL QHS PRN 04/29/18 [History Last Taken 07/03/20 21:00] insulin asp prt-insulin aspart [Novolog Mix 70-30 U-100 Insuln] 40 unit SQ BREAKFAST 04/29/18 [History Last Taken 07/03/20 08:00] oxycodone 5 mg PO Q8 PRN 04/29/18 [History Last Taken 07/03/20 21:00] pantoprazole 20 mg PO BID 04/29/18 [History Last Taken 07/03/20 21:00] spironolactone 25 mg PO DAILY 04/29/18 [History Last Taken 07/03/20 08:00] acetaminophen 500 mg PO Q4H PRN PRN #20 tablet 05/06/18 [Rx Last Taken Unknown] colestipol 1 g PO BID 07/04/20 [History Last Taken 07/03/20 21:00] gabapentin 200 mg PO DAILY 07/04/20 [History Last Taken 07/03/20 08:00] lidocaine HCl 1 applic TRANSDERMAL QHS 07/04/20 [History Last Taken 07/03/20 08:00] loperamide 2 mg PO Q6H 07/04/20 [History Last Taken 07/03/20 17:00] nicotine (polacrilex) 2 mg PO Q2H PRN PRN 07/04/20 [History Last Taken 07/03/20] ondansetron HCl 8 mg PO Q8H PRN 07/04/20 [History Last Taken 07/03/20] sildenafil [Viagra] 100 mg PO DAILY PRN 07/04/20 [History Last Taken Unknown] sodium bicarbonate 650 mg PO DAILY 07/04/20 [History Last Taken 07/03/20 21:00] thiamine HCl (vitamin B1) 1,850 mg PO DAILY 07/04/20 [History Last Taken 07/03/20 21:00] Allergy/AdvReac Type Severity Reaction Status Date / Time procaine HCl [From Novocain] Allergy Other Verified 11/27/20 09:11 Zyamdjw-Hls-Jha Reductase Allergy Other Verified 11/27/20 09:11 Inhibitor Surgical History History of coronary artery stent placement Social History (Updated 07/04/20 @ 05:[address] Yobany Posadas MD) household members: spouse housing: house current occupational status: retired Smoking Status: Former smoker substance use type: does not use ROS ROS ED ROS Narrative Past medical history: Reviewed, he has a complicated past medical history including Crohn's, CKD, hypothyroidism, hypertension, diabetes, coronary artery disease, carcinoid tumor, peripheral vascular disease, he is on TPN via a right chest central line Medications: Reviewed Social history: Noncontributory Review of systems: All systems negative except as indicated General: Fever and generalized weakness as in HPI Eyes: No visual changes ENT: No upper airway congestion, normal voice Neck: No neck pain Cardiovascular: No chest pain Respiratory: Cough, no shortness of breath. Gastrointestinal: No abdominal pain, nausea vomiting or diarrhea Genitourinary: No dysuria Musculoskeletal: Denies myalgias. Skin: No rash Neurological: No memory loss, confusion or any focal weakness Psych: No recent behavioral changes Hematologic: No easy bleeding or easy bruising EXAM Physical Exam Narrative Exam Narrative: Physical exam General: Patient appears relatively comfortable in the bed. He appears chronically ill, he does not appear acutely ill. Head: Normocephalic, Atraumatic Eyes: Conjunctiva not pale ENT: Moist mucous membranes Neck: Supple, Nontender, No lymphadenopathy Cardiovascular: Regular rate, Regular rhythm Chest wall: The chest wall catheter is clean dry and intact without any evidence of infection. Respiratory: No distress, CTA bilaterally Abdomen: Soft, Nontender, Nondistended Back: Nontender, Normal Inspection. Negative for: CVA tenderness Extremities: Nontender, No edema Skin: Normal color, No rash Neurological: Alert, Normal Strength, Normal Sensation Psychological: Normal affect Const Vital Signs: 11/27/20 09:07 11/27/20 09:12 11/27/20 09:26 Temperature 98.8 F 98.8 F Temperature Source Temporal Temporal Pulse Rate 85 Respiratory Rate 19 H Respiratory Effort Normal Non-Labored Respiratory Pattern Normal Blood Pressure 148/75 H Blood Pressure Mean 99 Pulse Ox 96 96 Oxygen Delivery Method Room Air Room Air MDM MDM MDM Narrative Medical decision making narrative: Patient is found to have COVID-19. His x-ray is unremarkable his saturation is normal, he appears well he has an unremarkable ED work-up. I had a long discussion with him he wants to be discharged home. This is reasonable I did tell him that I am somewhat worried since he is only day 3 or 4 of symptoms he may worsen and eventually need hospitalization he understands that, in the meantime I will set him up for monoclonal antibody treatment, I told him if he is short of breath or his pulse ox drops below 90% he is to return to the emergency department he understands this. Lab Data Labs: Laboratory Results - last 24 hr 11/27/20 11/27/20 11/27/20 09:16 09:16 09:16 WBC 3.9 L RBC 3.85 L Hgb 12.5 L Hct 37.3 L MCV 96.9 H MCH 32.5 H MCHC 33.5 RDW Std Deviation 52.7 H RDW Coeff of Arlin 14.6 Plt Count 83 L MPV 12.9 H Immature Gran % (Auto) 0.300 Neut % (Auto) 69.8 Lymph % (Auto) 11.2 L [place] % (Auto) 16.9 H Eos % (Auto) 1.3 Baso % (Auto) 0.5 Absolute Neuts (auto) 2.7 Absolute Lymphs (auto) 0.43 L Nucleated RBC % 0 Diff Path Review May foll Platelet Estimate SLT DEC PT 14.3 INR 1.2 APTT 37.0 H Sodium 135 L Potassium 4.4 Chloride 102 Carbon Dioxide 25.0 Anion Gap 8 BUN 34 H Creatinine 1.81 H Estim Creat Clear Calc 38.65 Est GFR (MDRD) Af Amer 48 L Est GFR (MDRD) Non-Af 39 L BUN/Creatinine Ratio 18.8 Glucose 214 H Lactic Acid Calcium 8.8 Total Bilirubin 0.60 AST 54 H ALT 52 Alkaline Phosphatase 156 H Total Protein 7.2 Albumin 2.7 L Globulin 4.5 H Albumin/Globulin Ratio 0.6 L 11/27/20 09:16 WBC RBC Hgb Hct MCV MCH MCHC RDW Std Deviation RDW Coeff of Arlin Plt Count MPV Immature Gran % (Auto) Neut % (Auto) Lymph % (Auto) [place] % (Auto) Eos % (Auto) Baso % (Auto) Absolute Neuts (auto) Absolute Lymphs (auto) Nucleated RBC % Diff Path Review Platelet Estimate PT INR APTT Sodium Potassium Chloride Carbon Dioxide Anion Gap BUN Creatinine Estim Creat Clear Calc Est GFR (MDRD) Af Amer Est GFR (MDRD) Non-Af BUN/Creatinine Ratio Glucose Lactic Acid 1.4 Calcium Total Bilirubin AST ALT Alkaline Phosphatase Total Protein Albumin Globulin Albumin/Globulin Ratio Radiography Diagnostic Testing: Clinical Impression(s) from Imaging Studies Chest X-Ray 11/27/20 09:17 IMPRESSION: No acute abnormality is seen. Electronically Signed: Gerard Garcia MD at 10:23 EDT , Service support , EKG Initial EKG: Attestation: I personally reviewed and interpreted this EKG as follows: Comments: Normal sinus rhythm with a rate of 82. Normal PA and QTc intervals. Right bundle branch pattern without any ischemic changes. Interpreted by emergency doctor. Discharge Plan Triage Chief Complaint: General Illness ED Provider: Scar Lewis Dx/Rx/DC Orders Clinical Impression: COVID-19 Instructions: Coronavirus Disease 2019 (COVID-19): Overview Prescriptions: No Action furosemide 40 MG tablet 20 mg PO DAILY RF: 0 levothyroxine 137 MCG tablet 137 mcg PO DAILY RF: 0 metoprolol tartrate [Lopressor] 100 MG tablet 25 mg PO BID RF: 0 diphenoxylate-atropine [Lomotil] 1 EACH tablet 1 ea PO Q6H RF: 0 amlodipine 5 MG tablet 5 mg PO DAILY RF: 0 tamsulosin 0.4 MG capsule 0.4 mg PO BID RF: 0 gabapentin [Neurontin] 300 MG capsule 300 mg PO QHS RF: 0 dicyclomine 10 MG capsule 10 mg PO ACHS RF: 0 finasteride 5 MG tablet 5 mg PO DAILY RF: 0 insulin asp prt-insulin aspart [Novolog Mix 70-30 U-100 Insuln] 100 UNIT/ML solution 30 unit SQ DINNER RF: 0 duloxetine 20 MG capsule,delayed release(DR/EC) 20 mg PO QHS RF: 0 Creon 1 EACH capsule,delayed release(DR/EC) 3 cap PO TIDCM RF: 0 cyanocobalamin (vitamin B-12) 1,000 MCG tablet 1,000 mcg sublingual DAILY RF: 0 clopidogrel 75 MG tablet 75 mg PO DAILY RF: 0 rosuvastatin [Crestor] 5 MG tablet 5 mg PO MOTH RF: 0 cholecalciferol (vitamin D3) 50,000 UNIT capsule 50,000 unit PO TUTH RF: 0 cyanocobalamin (vitamin B-12) 1,000 MCG/ML solution 100 mcg IM Q7D RF: 0 Sandostatin LAR [place] 10 MG suspension,extended rel recon 10 mg IM QMONTH RF: 0 spironolactone 25 MG tablet 25 mg PO DAILY RF: 0 pantoprazole 20 MG tablet 20 mg PO BID RF: 0 oxycodone 5 MG tablet 5 mg PO Q8 PRN (Reason: Pain) RF: 0 insulin asp prt-insulin aspart [Novolog Mix 70-30 U-100 Insuln] 100 UNIT/ML solution 40 unit SQ BREAKFAST RF: 0 Melatonin 10 MG Tab.Subl 10 mg sublingual QHS PRN (Reason: Sleep) RF: 0 acetaminophen 500 MG tablet 500 mg PO Q4H PRN PRN (Reason: Pain) Qty: 20 RF: 0 lidocaine HCl 5 % Ointment 1 applic transdermal QHS RF: 0 colestipol 1 gram Tablet 1 g PO BID RF: 0 gabapentin 100 mg Tablet 200 mg PO DAILY RF: 0 loperamide 2 mg Capsule 2 mg PO Q6H RF: 0 nicotine (polacrilex) 2 mg Gum 2 mg PO Q2H PRN PRN (Reason: Smoking Cessation) RF: 0 ondansetron HCl 8 mg Tablet 8 mg PO Q8H PRN (Reason: Nausea) RF: 0 sildenafil [Viagra] 100 mg Tablet 100 mg PO DAILY PRN (Reason: Sexual Activity) RF: 0 sodium bicarbonate 650 mg Tablet 650 mg PO DAILY RF: 0 thiamine HCl (vitamin B1) 250 mg Tablet 1,850 mg PO DAILY RF: 0 Other Ambulatory Orders: COVID Outpatient Monoclonal Antibody Referral (Routine) Timeframe: 1 Day Facility: [facility] - Location: [facility] Ordered By: Dr. Scar Lewis Primary Care Provider: Analisa Nogueira Referrals: Analisa Nogueira MD [Primary Care Provider] - 2 Days Disposition Disposition: Home, Self Care
[2020-11-27 09:35] LABS: Absolute Lymphocyte Count 0.43 X10^3/uL (0.83-4.51); Absolute Neutrophil Count 2.7 X10^3/uL (2.0-7.7); Basophil# 0.02 X10^3/uL; Basophil% 0.5 % (0-1); Eosinophil# 0.05 X10^3/uL; Eosinophils% 1.3 % (0-5); Hematocrit 37.3 % (40-54); Hemoglobin 12.5 g/dL (13.0-16.5); Lymphocyte # 0.43 X10^3/ul (0.83-4.51); Lymphocyte % 11.2 % (19-41); Mean Corp Hgb Conc 33.5 g/dL (32-36); Mean Corpuscular Hgb 32.5 pg (27.0-32.0); Mean Corpuscular Volume 96.9 fL (80-94); Mean Platelet Vol. 12.9 fl (6.2-12.0); Monocyte# 0.65 X10^3/uL; Monocyte% 16.9 % (0-10); NRBC Flagged by Analyzer 0 % (0-5); Neutrophil # 2.69 X10^3/uL (2.7-7.7); Neutrophil % 69.8 % (47-70); POSITIVE COUNT YES; POSITIVE DIFFERENTIAL YES; Platelet Count 83 K/mm3 (150-450); RBC Distribution Width CV 14.6 % (11.6-14.6); RBC Distribution Width SD 52.7 fl (35.1-43.9); Red Blood Count 3.85 M/mm3 (4.6-6.2); White Blood Count 3.9 K/mm3 (4.4-11.0)
[2020-11-27 09:36] LABS: Differential Indicated SCAN CRITERIA MET
[2020-11-27 09:41] LABS: International Normalized Ratio 1.2; Prothrombin Time (Protime)PT. 14.3 SECONDS (11.7-14.9)
[2020-11-27 09:50] LABS: ALB/GLOB Ratio 0.6 RATIO (0.9-2.4); AST(SGOT) 54 U/L (15-37); Alanine Aminotransfer ALT/SGPT 52 U/L (16-61); Albumin, Serum 2.7 g/dL (3.2-5.0); Alkaline Phosphatase 156 U/L (45-117); Anion Gap 8 (5-15); BUN 34 mg/dL (7-18); BUN/Creat Ratio 18.8 RATIO (10-20); Calcium,Total 8.8 mg/dL (8.5-10.1); Chloride 102 mmol/L (98-107); Creatinine, Serum 1.81 mg/dL (0.70-1.30); EST Glomerular Filtration Rate 39 mL/min (>60); Est Glom Filt Rate - Afr Amer 48 mL/min (>60); Estimated Creatinine Clearance 38.65 ml/min; Globulin 4.5 g/dL (2.2-4.2); Glucose 214 mg/dL (74-106); Potassium 4.4 mmol/L (3.5-5.1); Protein, Total 7.2 g/dL (6.4-8.2); Sodium Level 135 mmol/L (136-145)
[2020-11-27 09:51] LABS: Lactic Acid 1.4 mmol/L (0.4-1.9)
[2020-11-27 09:55] LABS: Platelet Estimate SLT DEC (ADEQ)
--- NOTE | 2020-11-27 13:11 | CM.ED ---
SW Note: SW was advised that patient was being admitted to acute as did not feel comfortable with caring for him at home. He did not need room oxygen. SW reviewed chart. Patient is covid positive today. As he is COVID positive today his available SNF are limited. SW called [facility] and no beds. SW called [facility] in [place] no beds and they are on a waiting list, [facility] has no beds but the [facility] in [place] has beds per their admission staff, Amanda. SW spoke with patient and his . Explained that we are looking at providing patient with care he needs at alternative settings. became very defensive and said so you guys are kicking him out?. SW explained that we are attempting to use resources wisely and if patient's needs can be managed at an alternative setting to see if that would be appropriate. said that patient has 13 specialist and that he needs to be transferred to the [facility] or admitted to [facility]. indicated that patient was not going to a SNF in [place]. SW updated driver/guide Stacey, Nursing Lumber Estimator Kamilla and MD Lewis. Plan: Admit patient per ED MD Elizabeth [id number]
[2020-11-27 13:21] LABS: Pathologist Review Reviewed
[2020-11-27] MEDS: Insulin Lispro 100 UNIT/ML INSULN.PEN SC ×3 (15:58→22:51)
[2020-11-27] MEDS: Acetaminophen 500 MG Tablet PO ×2 (15:59→21:05)
[2020-11-27] MEDS: Diphenoxylate/Atrop 1 Tablet PO (15:59)
[2020-11-27] MEDS: Dicyclomine 10 MG Capsule PO ×2 (15:59→22:42)
[2020-11-27] MEDS: BENZOCAINE/MENTHOL 1 LOZENGE MUCOUS MEM ×2 (16:00→22:40)
[2020-11-27 16:20] LABS: Bedside Glucose 182 mg/dL (70-110)
--- NOTE | 2020-11-27 17:09 | PCM.HP.STD ---
HPI - General General Date of Admission: 11/27/20 HPI Narrative VENKATA LEAL, is a 70 M who presents to the hospital secondary to weakness and debility and joint pain secondary to Covid. He states he has intermittent chronic joint pain secondary to Crohn's disease and carcinoid syndrome. However this episode of the pain started about 2 days ago as did a productive cough. He denies any significant shortness of breath and chest x-ray was unremarkable in the ER. 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 He is allowed to eat for comfort but small amount needs to take multiple medications to assist him in this process. He does not like taking the Lomotil or the Imodium because it is get some with gas pains. [facility] Medical History (Updated 11/27/20 @ 14:43 by Yocasta Hill) BiPAP (biphasic positive airway pressure) dependence Cirrhosis CKD (chronic kidney disease) stage 3, GFR 30-59 ml/min Coronary artery disease Diabetes Difficulty swallowing Hypertension Hypothyroidism Ileus Kidney disease Sleep apnea Home Medications Creon 3 cap PO TIDCM 08/22/16 [History Last Taken 08/21/16] amlodipine 5 mg PO DAILY 08/22/16 [History Last Taken 07/03/20 08:00] dicyclomine 10 mg PO ACHS 08/22/16 [History Last Taken 07/03/20 08:00] diphenoxylate-atropine [Lomotil] 1 ea PO Q6H 08/22/16 [History Last Taken 07/03/20 08:00] duloxetine 20 mg PO QHS 08/22/16 [History Last Taken 07/03/20 21:00] finasteride 5 mg PO DAILY 08/22/16 [History Last Taken 07/03/20 08:00] furosemide 20 mg PO DAILY 08/22/16 [History Last Taken 07/03/20 08:00] gabapentin [Neurontin] 300 mg PO QHS 08/22/16 [History Last Taken 07/03/20 21:00] insulin asp prt-insulin aspart [Novolog Mix 70-30 U-100 Insuln] 30 unit SQ DINNER 08/22/16 [History Last Taken 07/03/20 17:00] levothyroxine 137 mcg PO DAILY 08/22/16 [History Last Taken 07/03/20 06:00] metoprolol tartrate [Lopressor] 25 mg PO BID 08/22/16 [History Last Taken 07/03/20 08:00] tamsulosin 0.4 mg PO BID 08/22/16 [History Last Taken 07/03/20 17:00] cholecalciferol (vitamin D3) 50,000 unit PO TUTH 10/25/16 [History Last Taken 07/03/20 08:00] clopidogrel 75 mg PO DAILY 10/25/16 [History Last Taken 07/03/20 08:00] cyanocobalamin (vitamin B-12) 1,000 mcg SUBLINGUAL DAILY 10/25/16 [History Last Taken Unknown] rosuvastatin [Crestor] 5 mg PO MOTH 10/25/16 [History Last Taken 07/03/20 08:00] Sandostatin LAR Depot 10 mg IM QMONTH 11/19/16 [History Last Taken 06/20/20] cyanocobalamin (vitamin B-12) 100 mcg IM Q7D 11/19/16 [History Last Taken 06/28/20 08:00] Melatonin 10 mg SUBLINGUAL QHS PRN 04/29/18 [History Last Taken 07/03/20 21:00] insulin asp prt-insulin aspart [Novolog Mix 70-30 U-100 Insuln] 40 unit SQ BREAKFAST 04/29/18 [History Last Taken 07/03/20 08:00] oxycodone 5 mg PO Q8 PRN 04/29/18 [History Last Taken 07/03/20 21:00] pantoprazole 20 mg PO BID 04/29/18 [History Last Taken 07/03/20 21:00] spironolactone 25 mg PO DAILY 04/29/18 [History Last Taken 07/03/20 08:00] acetaminophen 500 mg PO Q4H PRN PRN #20 tablet 05/06/18 [Rx Last Taken Unknown] colestipol 1 g PO BID 07/04/20 [History Last Taken 07/03/20 21:00] gabapentin 200 mg PO DAILY 07/04/20 [History Last Taken 07/03/20 08:00] lidocaine HCl 1 applic TRANSDERMAL QHS 07/04/20 [History Last Taken 07/03/20 08:00] loperamide 2 mg PO Q6H 07/04/20 [History Last Taken 07/03/20 17:00] nicotine (polacrilex) 2 mg PO Q2H PRN PRN 07/04/20 [History Last Taken 07/03/20] ondansetron HCl 8 mg PO Q8H PRN 07/04/20 [History Last Taken 07/03/20] sildenafil [Viagra] 100 mg PO DAILY PRN 07/04/20 [History Last Taken Unknown] sodium bicarbonate 650 mg PO DAILY 07/04/20 [History Last Taken 07/03/20 21:00] thiamine HCl (vitamin B1) 1,850 mg PO DAILY 07/04/20 [History Last Taken 07/03/20 21:00] Allergy/AdvReac Type Severity Reaction Status Date / Time procaine HCl [From Novocain] Allergy Other Verified 11/27/20 09:11 Regogkn-Kti-Djl Reductase Allergy Other Verified 11/27/20 09:11 Inhibitor Family History (Updated 11/27/20 @ 17:[address] Serafin Mccray MD) Other Cancer Surgical History (Updated 11/27/20 @ 14:43 by Yocasta Hill) History of appendectomy History of cholecystectomy History of coronary artery stent placement Social History (Updated 07/04/20 @ 05:[address] Yobany Posadas MD) household members: spouse housing: house current occupational status: retired Smoking Status: Former smoker substance use type: does not use ROS Constitutional Constitutional: Denies chills, fatigue, fever(s) or malaise Eyes Eyes: Denies blurry vision ENT HEENT: Denies headache(s) or nasal discharge Cardiovascular Cardiovascular: Denies chest pain, dyspnea on exertion or syncope Respiratory/Chest Respiratory/Chest: Reports cough; Denies shortness of breath at rest or shortness of breath with exertion Gastrointestinal Gastrointestinal: Denies constipation, diarrhea, nausea or vomiting Genitourinary Genitourinary: Denies dysuria Musculoskeletal Musculoskeletal: Reports joint pain Neurologic Neurologic: Denies focal weakness, numbness or tremor(s) Psychiatric Psychiatric: Denies anxiety or depression Vital Signs Vital Signs Vital Signs: 11/27/20 09:07 11/27/20 09:12 11/27/20 09:26 Temperature 98.8 F 98.8 F Temperature Source Temporal Temporal Pulse Rate 85 Respiratory Rate 19 H Respiratory Effort Normal Non-Labored Respiratory Depth Respiratory Pattern Normal Blood Pressure 148/75 H Blood Pressure Mean 99 Blood Pressure Source Blood Pressure Position Blood Pressure Location Pulse Ox 96 96 Oxygen Delivery Method Room Air Room Air 11/27/20 11:28 11/27/20 11:29 11/27/20 12:18 Temperature 98.1 F 98.1 F Temperature Source Temporal Temporal Pulse Rate 73 77 Respiratory Rate 18 17 Respiratory Effort Respiratory Depth Respiratory Pattern Blood Pressure 155/76 H 144/73 H Blood Pressure Mean 102 96 Blood Pressure Source Blood Pressure Position Blood Pressure Location Pulse Ox 95 95 Oxygen Delivery Method Room Air Room Air 11/27/20 13:10 11/27/20 14:35 11/27/20 14:49 Temperature 98.4 F 100.3 F H Temperature Source Temporal Oral Pulse Rate 79 79 Respiratory Rate 19 H 16 Respiratory Effort Normal Respiratory Depth Normal Respiratory Pattern Normal Blood Pressure 138/82 H 160/85 H Blood Pressure Mean 100 110 Blood Pressure Source Monitor Blood Pressure Position Semi-Fowlers Blood Pressure Location Right Arm Pulse Ox 95 98 Oxygen Delivery Method Room Air Room Air Room Air Weight Weight: 238 lb 1.588 oz Body Mass Index (BMI) 34.1 Physical Exam Const alert, oriented x3 and no apparent distress General Appearance: cooperative HEENT normocephalic and moist oral mucous membranes Eyes PERRL, EOMs intact bilaterally and conjunctivae normal Neck supple and no JVD Resp normal respiratory effort, no retractions, no use of accessory muscles and clear to auscultation bilaterally Auscultation: Negative for crackles, rales, rhonchi or wheezes Cardio regular rate, regular rhythm, S1 normal heart sound, S2 normal heart sound and no murmurs GI soft to palpation, non-tender and non-distended; Negative for hepatosplenomegaly Extremity no clubbing, cyanosis or edema Skin no rashes or lesions noted Neuro no focal motor deficits and no sensory deficits noted Psych affect normal Appearance: appropriate Results Lab / Micro Data Result Diagrams: 11/28/20 06:14 11/28/20 06:14 Labs: Laboratory Results - last 24 hr 11/27/20 09:16: WBC 3.9 L, RBC 3.85 L, Hgb 12.5 L, Hct 37.3 L, MCV 96.9 H, MCH 32.5 H, MCHC 33.5, RDW Std Deviation 52.7 H, RDW Coeff of Arlin 14.6, Plt Count 83 L, MPV 12.9 H, Immature Gran % (Auto) 0.300, Neut % (Auto) 69.8, Lymph % (Auto) 11.2 L, [place] % (Auto) 16.9 H, Eos % (Auto) 1.3, Baso % (Auto) 0.5, Absolute Neuts (auto) 2.7, Absolute Lymphs (auto) 0.43 L, Nucleated RBC % 0, Diff Path Review Reviewed, Platelet Estimate SLT 11/27/20 09:16: PT 14.3, INR 1.2, APTT 37.0 H 11/27/20 09:16: Sodium 135 L, Potassium 4.4, Chloride 102, Carbon Dioxide 25.0, Anion Gap 8, BUN 34 H, Creatinine 1.81 H, Estim Creat Clear Calc 38.65, Est GFR (MDRD) Af Amer 48 L, Est GFR (MDRD) Non-Af 39 L, BUN/Creatinine Ratio 18.8, Glucose 214 H, Calcium 8.8, Total Bilirubin 0.60, AST 54 H, ALT 52, Alkaline Phosphatase 156 H, Total Protein 7.2, Albumin 2.7 L, Globulin 4.5 H, Albumin/Globulin Ratio 0.6 L 11/27/20 09:16: Lactic Acid 1.4 11/27/20 15:57: POC Glucose 182 H Micro: Microbiology 11/27/20 09:15 Nasal Secretion SARS-CoV-2 Antigen (Rapid) - Final SARS-CoV-2 (COVID 19) Radiology Impression Chest X-Ray 11/27/20 09:17 IMPRESSION: No acute abnormality is seen. Electronically Signed: Gerard Garcia MD at 10:23 EDT , Service support , Assessment & Plan Assessment/Plan (1) COVID-19: PLAN: 1. Chronic intermittent joint pain secondary to Crohn's disease as well as augmentation from COVID-19 -He received his full vaccination in March from Covid -Repeat joint pain with productive cough started 2 to 3 days ago and he tested positive for Covid here in the ER -He states that he can get intermittent joint pain at home due to his Crohn's disease as well as his carcinoid disease, it is possible that having the Covid is flaring up his joint pain from Crohn's -We will continue with his home oxycodone for pain control and can increase or add IV if necessary -PT/OT both he and his endorse weakness -We will obtain sputum culture 2. Chronic malabsorption with short gut secondary to small bowel resections for Crohn's disease -Started on TPN from the [facility] months ago and that is his main source of nutrition -He can eat for comfort however will limit that and hold his Creon as well as his motility agents 3. CAD/PVD/HTN -Continue with his home blood pressure medications -Blood pressure does appear stable at this time -Continue with statin 4. Hypothyroidism -Stable -Continue Synthroid 5. DM2 with neuropathy -Currently on his TPN, will place him on insulin -Accu-Cheks every 4 with sliding scale insulin every 4 -Continue with gabapentin 6. Anxiety/depression -Stable -Continue with his home medications 7. BPH -Stable -Continue with Flomax DVT: SCDs Charges/Coding Visit Charges OBSV E&M: 13653 Initial observation care L3
[2020-11-27 17:10] LABS: Magnesium 2.2 mg/dL (1.6-2.6); Phosphorus 2.9 mg/dL (2.5-4.9); Triglycerides 107 mg/dL
[2020-11-27 18:05] LABS: Bedside Glucose 229 mg/dL (70-110)
[2020-11-27] MEDS: oxyCODONE 5 MG Tablet PO (21:05)
[2020-11-27] MEDS: Lidocaine 5% Patch 1 PATCH TOPICAL (22:38)
[2020-11-27] MEDS: Gabapentin 300 MG Capsule PO (22:40)
[2020-11-27] MEDS: Pantoprazole Sodium 20 MG Tablet PO (22:40)
[2020-11-27] MEDS: Rosuvastatin Calcium 5 MG Tablet PO (22:40)
[2020-11-27] MEDS: Metoprolol Tartrate 25 MG Tablet PO (22:41)
[2020-11-27] MEDS: DULoxetine Hcl 20 MG Capsule PO (22:41)
[2020-11-27] MEDS: Tamsulosin HCl 0.4 MG Capsule PO (22:41)
[2020-11-28] VITALS (8 sets, daily range): BP systolic 122–147; BP diastolic 66–83; PULSE 65–67; RESP 16–18; TEMP 36.8–37; O2SAT 94–99
[2020-11-28] MEDS: Insulin Lispro 100 UNIT/ML INSULN.PEN SC ×3 (02:39→12:14)
[2020-11-28] MEDS: Acetaminophen 500 MG Tablet PO ×3 (02:39→15:46)
[2020-11-28] MEDS: BENZOCAINE/MENTHOL 1 LOZENGE MUCOUS MEM ×3 (02:53→08:58)
[2020-11-28 03:16] LABS: Bedside Glucose 197 mg/dL (70-110)
[2020-11-28 03:16] LABS: Bedside Glucose 222 mg/dL (70-110)
[2020-11-28] MEDS: Dicyclomine 10 MG Capsule PO ×2 (06:00→12:09)
[2020-11-28] MEDS: Levothyroxine 137 MCG Tablet PO (06:00)
[2020-11-28] MEDS: oxyCODONE 5 MG Tablet PO ×2 (06:04→15:46)
[2020-11-28 06:15] LABS: Bedside Glucose 183 mg/dL (70-110)
[2020-11-28 06:36] LABS: Absolute Lymphocyte Count 0.39 X10^3/uL (0.83-4.51); Absolute Neutrophil Count 1.9 X10^3/uL (2.0-7.7); Basophil# 0.01 X10^3/uL; Basophil% 0.3 % (0-1); Eosinophil# 0.08 X10^3/uL; Eosinophils% 2.8 % (0-5); Hematocrit 34.9 % (40-54); Hemoglobin 11.7 g/dL (13.0-16.5); Lymphocyte # 0.39 X10^3/ul (0.83-4.51); Lymphocyte % 13.6 % (19-41); Mean Corp Hgb Conc 33.5 g/dL (32-36); Mean Corpuscular Hgb 32.6 pg (27.0-32.0); Mean Corpuscular Volume 97.2 fL (80-94); Mean Platelet Vol. 12.5 fl (6.2-12.0); Monocyte# 0.44 X10^3/uL; Monocyte% 15.3 % (0-10); NRBC Flagged by Analyzer 0 % (0-5); Neutrophil # 1.94 X10^3/uL (2.7-7.7); Neutrophil % 67.7 % (47-70); POSITIVE COUNT YES; POSITIVE DIFFERENTIAL YES; Platelet Count 74 K/mm3 (150-450); RBC Distribution Width CV 14.5 % (11.6-14.6); RBC Distribution Width SD 52.1 fl (35.1-43.9); Red Blood Count 3.59 M/mm3 (4.6-6.2); White Blood Count 2.9 K/mm3 (4.4-11.0)
[2020-11-28 06:44] LABS: Differential Indicated SCAN CRITERIA MET
[2020-11-28 07:04] LABS: ALB/GLOB Ratio 0.6 RATIO (0.9-2.4); AST(SGOT) 47 U/L (15-37); Alanine Aminotransfer ALT/SGPT 47 U/L (16-61); Albumin, Serum 2.4 g/dL (3.2-5.0); Alkaline Phosphatase 142 U/L (45-117); Anion Gap 7 (5-15); BUN 32 mg/dL (7-18); BUN/Creat Ratio 18.5 RATIO (10-20); Calcium,Total 8.5 mg/dL (8.5-10.1); Chloride 99 mmol/L (98-107); Creatinine, Serum 1.73 mg/dL (0.70-1.30); EST Glomerular Filtration Rate 42 mL/min (>60); Est Glom Filt Rate - Afr Amer 50 mL/min (>60); Estimated Creatinine Clearance 40.44 ml/min; Glucose 207 mg/dL (74-106); Magnesium 2.2 mg/dL (1.6-2.6); Potassium 4.2 mmol/L (3.5-5.1); Protein, Total 6.4 g/dL (6.4-8.2); Sodium Level 134 mmol/L (136-145)
[2020-11-28 07:05] LABS: Platelet Estimate MOD DEC (ADEQ)
[2020-11-28 07:55] LABS: Phosphorus 3.2 mg/dL (2.5-4.9)
--- NOTE | 2020-11-28 08:52 | PCS.PANDOC ---
PANDEMIC DOCUMENTATION INITIATED: Date: 10/02/2020 Time: 190
[2020-11-28] MEDS: Clopidogrel Bisulfate 75 MG Tablet PO (08:55)
[2020-11-28] MEDS: Tamsulosin HCl 0.4 MG Capsule PO (08:55)
[2020-11-28] MEDS: Ergocalciferol 1.25 MG (50, 000 UNIT) Capsule PO (08:56)
[2020-11-28] MEDS: Pantoprazole Sodium 20 MG Tablet PO (08:56)
[2020-11-28] MEDS: Gabapentin 100 MG Capsule PO (08:56)
[2020-11-28] MEDS: Furosemide 20 MG Tablet PO (08:56)
[2020-11-28] MEDS: Metoprolol Tartrate 25 MG Tablet PO (08:57)
[2020-11-28] MEDS: Finasteride 5 MG Tablet PO (08:57)
[2020-11-28] MEDS: amLODIPine 5 MG Tablet PO (08:57)
[2020-11-28] MEDS: Sodium Bicarbonate 650 MG Tablet PO (08:58)
[2020-11-28] MEDS: Spironolactone 25 MG Tablet PO (08:58)
--- NOTE | 2020-11-28 12:00 | CASEMGMT ---
PATRICIA NÚÑEZ Assessment: Face to Face with pt for initial transition planning/care coordination assessment. PATRICIA NÚÑEZ introduced self and role at [facility], pt voices understanding and consents to assessment. Pt is A/O x4 and answers all questions appropriately at this time. Pt sitting up in chair on RA in no distress. Care providers, pharmacy, and demographics verified/updated. Admitting Dx: UZAIR PCP: [facility] Specialists: Pt states he has 11 specialists but cannot name them. [facility] Insurance: [facility], [employer] Prescription Benefit: yes LW/HPOA: Pt has a LW/DPOA on file at [facility]. His DPOA is his [employer] [place] LNOK: [employer], Living Arrangements: Pt lives with , dtr and grandson in a ranch home with 3 steps to enter. Pt reports being I in ADL's and denies concerns at home. Transportation: Pt states he can drive but chooses to have his transport him. DME/HHC/SNF: Pt has TPN at home, w/c, rollator, grab bars, cane and high rise toilet seat. Pt is current with [facility] for SN. He has had another agency in the past but does not know the name. Pt denies having any SNF hx. Asked pt how he thought he did with therapy today, he states I don't know until I get home. Asked if he felt strong enough to go home, he states he is very weak. Discussed the option of adding therapy to his C. Pt states he has done therapy in the past and has the exercises and does not want it at home. Pt states no further concerns/needs. CM to follow. Advised pt to ask CM if any further question/concerns/needs arise, voices understanding. Pt Goal: Home Plan: Home with continuation of C SN. TC to Emi at [facility] who is aware that pt will be dc'd today.
[2020-11-28 12:40] LABS: Bedside Glucose 259 mg/dL (70-110)
--- NOTE | 2020-11-28 13:23 | PCM.DC ---
Discharge Instructions Activity Discharge Activity: Return to Normal Activity Dressing / Incision Call your doctor if you observe: Fever of 101 or Higher, Shortness of breath, Dizziness, Fainting spells, Swelling in the ankles, Chest pain and Increased palpitations (irregular heartbeat) Follow Up Care Test Results: Test results from this visit will be discussed in further detail at your follow-up appointment, if applicable. Discharge Plan Admission Admit Date/Time: 11/27/20 11:59 Attending Provider: Serafin Mccray Primary Care Provider: Analisa Nogueira Consulting Providers: Alda Avilez NP Instructions Patient Instructions: Coronavirus Disease 2019 (COVID-19): Overview Additional Instructions / Restrictions: Stay in quarantine from 10 days of onset of symptoms. Discharge Orders/Prescriptions Prescriptions: Continued furosemide 40 MG tablet 20 mg PO DAILY RF: 0 levothyroxine 137 MCG tablet 137 mcg PO DAILY RF: 0 metoprolol tartrate [Lopressor] 100 MG tablet 25 mg PO BID RF: 0 diphenoxylate-atropine [Lomotil] 1 EACH tablet 1 ea PO Q6H RF: 0 amlodipine 5 MG tablet 5 mg PO DAILY RF: 0 tamsulosin 0.4 MG capsule 0.4 mg PO BID RF: 0 gabapentin [Neurontin] 300 MG capsule 300 mg PO QHS RF: 0 dicyclomine 10 MG capsule 10 mg PO ACHS RF: 0 finasteride 5 MG tablet 5 mg PO DAILY RF: 0 insulin asp prt-insulin aspart [Novolog Mix 70-30 U-100 Insuln] 100 UNIT/ML solution 30 unit SQ DINNER RF: 0 duloxetine 20 MG capsule,delayed release(DR/EC) 20 mg PO QHS RF: 0 Creon 1 EACH capsule,delayed release(DR/EC) 3 cap PO TIDCM RF: 0 cyanocobalamin (vitamin B-12) 1,000 MCG tablet 1,000 mcg sublingual DAILY RF: 0 clopidogrel 75 MG tablet 75 mg PO DAILY RF: 0 rosuvastatin [Crestor] 5 MG tablet 5 mg PO MOTH RF: 0 cholecalciferol (vitamin D3) 50,000 UNIT capsule 50,000 unit PO TUTH RF: 0 cyanocobalamin (vitamin B-12) 1,000 MCG/ML solution 100 mcg IM Q7D RF: 0 Sandostatin LAR Depot 10 MG suspension,extended rel recon 10 mg IM QMONTH RF: 0 spironolactone 25 MG tablet 25 mg PO DAILY RF: 0 pantoprazole 20 MG tablet 20 mg PO BID RF: 0 oxycodone 5 MG tablet 5 mg PO Q8 PRN (Reason: Pain) RF: 0 insulin asp prt-insulin aspart [Novolog Mix 70-30 U-100 Insuln] 100 UNIT/ML solution 40 unit SQ BREAKFAST RF: 0 Melatonin 10 MG Tab.Subl 10 mg sublingual QHS PRN (Reason: Sleep) RF: 0 acetaminophen 500 MG tablet 500 mg PO Q4H PRN PRN (Reason: Pain) Qty: 20 RF: 0 lidocaine HCl 5 % Ointment 1 applic transdermal QHS RF: 0 colestipol 1 gram Tablet 1 g PO BID RF: 0 gabapentin 100 mg Tablet 200 mg PO DAILY RF: 0 loperamide 2 mg Capsule 2 mg PO Q6H RF: 0 nicotine (polacrilex) 2 mg Gum 2 mg PO Q2H PRN PRN (Reason: Smoking Cessation) RF: 0 ondansetron HCl 8 mg Tablet 8 mg PO Q8H PRN (Reason: Nausea) RF: 0 sildenafil [Viagra] 100 mg Tablet 100 mg PO DAILY PRN (Reason: Sexual Activity) RF: 0 sodium bicarbonate 650 mg Tablet 650 mg PO DAILY RF: 0 thiamine HCl (vitamin B1) 250 mg Tablet 1,850 mg PO DAILY RF: 0 Referrals / Follow Up: Analisa Nogueira MD [Primary Care Provider] - 2 Days Disposition Disposition (needs filled in before D/C Order can be placed): Home Health Service
[2020-11-28 13:27] LABS: Pathologist Review Reviewed
--- NOTE | 2020-11-28 13:28 | PCM.DC.SUM ---
Providers Date of Admission: 11/27/20 Primary Care Physician: Dr. Analisa Nogueira MD Reason For Visit: COVID Diagnosis Discharge Diagnosis (1) COVID-19: Status: Acute Code(s): U07.1 - COVID-19 Medications at Discharge Home Medications Creon 3 cap PO TIDCM 08/22/16 amlodipine 5 mg PO DAILY 08/22/16 dicyclomine 10 mg PO ACHS 08/22/16 diphenoxylate-atropine [Lomotil] 1 ea PO Q6H 08/22/16 duloxetine 20 mg PO QHS 08/22/16 finasteride 5 mg PO DAILY 08/22/16 furosemide 20 mg PO DAILY 08/22/16 gabapentin [Neurontin] 300 mg PO QHS 08/22/16 insulin asp prt-insulin aspart [Novolog Mix 70-30 U-100 Insuln] 30 unit SQ DINNER 08/22/16 levothyroxine 137 mcg PO DAILY 08/22/16 metoprolol tartrate [Lopressor] 25 mg PO BID 08/22/16 tamsulosin 0.4 mg PO BID 08/22/16 cholecalciferol (vitamin D3) 50,000 unit PO TUTH 10/25/16 clopidogrel 75 mg PO DAILY 10/25/16 cyanocobalamin (vitamin B-12) 1,000 mcg SUBLINGUAL DAILY 10/25/16 rosuvastatin [Crestor] 5 mg PO MOTH 10/25/16 Sandostatin LAR Depot 10 mg IM QMONTH 11/19/16 cyanocobalamin (vitamin B-12) 100 mcg IM Q7D 11/19/16 Melatonin 10 mg SUBLINGUAL QHS PRN 04/29/18 insulin asp prt-insulin aspart [Novolog Mix 70-30 U-100 Insuln] 40 unit SQ BREAKFAST 04/29/18 oxycodone 5 mg PO Q8 PRN 04/29/18 pantoprazole 20 mg PO BID 04/29/18 spironolactone 25 mg PO DAILY 04/29/18 acetaminophen 500 mg PO Q4H PRN PRN #20 tablet 05/06/18 colestipol 1 g PO BID 07/04/20 gabapentin 200 mg PO DAILY 07/04/20 lidocaine HCl 1 applic TRANSDERMAL QHS 07/04/20 loperamide 2 mg PO Q6H 07/04/20 nicotine (polacrilex) 2 mg PO Q2H PRN PRN 07/04/20 ondansetron HCl 8 mg PO Q8H PRN 07/04/20 sildenafil [Viagra] 100 mg PO DAILY PRN 07/04/20 sodium bicarbonate 650 mg PO DAILY 07/04/20 thiamine HCl (vitamin B1) 1,850 mg PO DAILY 07/04/20 Hospital Course Operations None Procedures None Summary of Care Provided Minutes Spent on Discharge: 45 Hospital Course: Per HPI: VENKATA LEAL, is a 70 M who presents to the hospital secondary to weakness and debility and joint pain secondary to Covid. He states he has intermittent chronic joint pain secondary to Crohn's disease and carcinoid syndrome. However this episode of the pain started about 2 days ago as did a productive cough. He denies any significant shortness of breath and chest x-ray was unremarkable in the ER. 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 He is allowed to eat for comfort but small amount needs to take multiple medications to assist him in this process. He does not like taking the Lomotil or the Imodium because it is get some with gas pains. Hospital Course: 1. Chronic intermittent joint pain secondary to Crohn's disease worsened by [id number]-year-old male presented from home with feeling unwell and increased joint pain as well as weakness. He had difficulty getting into the car and so 911 was called to bring her here to the hospital. He continues to feel positive well however does not require any oxygen to maintain his oxygen saturations in the high 90s. He is remained stable on room air and denies any worsening shortness of breath. He has had symptoms for about 5 days now and is vaccinated, he received both doses of his vaccine back in March. I discussed the situation with both him and his , they both expressed understanding of the risk benefits going home and would like him to go home today if possible. PT did evaluate him and felt that he did not have any needs for longterm that he did recommend potential home therapy. 2. 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 His home medications were continued were appropriate. Physical Exam Const alert, oriented x3 and no apparent distress General Appearance: cooperative HEENT normocephalic and moist oral mucous membranes Eyes PERRL, EOMs intact bilaterally and conjunctivae normal Neck supple and no JVD Resp normal respiratory effort, no retractions, no use of accessory muscles and clear to auscultation bilaterally Auscultation: Negative for crackles, rales, rhonchi or wheezes Cardio regular rate, regular rhythm, S1 normal heart sound, S2 normal heart sound and no murmurs GI soft to palpation, non-tender and non-distended; Negative for hepatosplenomegaly Extremity no clubbing, cyanosis or edema Skin no rashes or lesions noted Neuro no focal motor deficits and no sensory deficits noted Psych affect normal Appearance: appropriate Weight / BMI Weight Weight: 240 lb 11.916 oz Body Mass Index (BMI) 34.1 ABG / Lab / Microbiology Data Result Diagrams: 11/28/20 06:14 11/28/20 06:14 Laboratory: Laboratory Results - last 24 hr 11/27/20 09:16: Phosphorus 2.9, Magnesium 2.2, Triglycerides 107 11/27/20 15:57: POC Glucose 182 H 11/27/20 17:57: POC Glucose 229 H 11/27/20 22:25: POC Glucose 222 H 11/28/20 02:38: POC Glucose 197 H 11/28/20 06:03: POC Glucose 183 H 11/28/20 06:14: WBC 2.9 L, RBC 3.59 L, Hgb 11.7 L, Hct 34.9 L, MCV 97.2 H, MCH 32.6 H, MCHC 33.5, RDW Std Deviation 52.1 H, RDW Coeff of Arlin 14.5, Plt Count 74 L, MPV 12.5 H, Immature Gran % (Auto) 0.300, Neut % (Auto) 67.7, Lymph % (Auto) 13.6 L, [place] % (Auto) 15.3 H, Eos % (Auto) 2.8, Baso % (Auto) 0.3, Absolute Neuts (auto) 1.9 L, Absolute Lymphs (auto) 0.39 L, Nucleated RBC % 0, Differential Comment COMMENT, Diff Path Review Reviewed, Platelet Estimate MOD 11/28/20 06:14: Sodium 134 L, Potassium 4.2, Chloride 99, Carbon Dioxide 28.0, Anion Gap 7, BUN 32 H, Creatinine 1.73 H, Estim Creat Clear Calc 40.44, Est GFR (MDRD) Af Amer 50 L, Est GFR (MDRD) Non-Af 42 L, BUN/Creatinine Ratio 18.5, Glucose 207 H, Calcium 8.5, Magnesium 2.2, Total Bilirubin 0.50, AST 47 H, ALT 47, Alkaline Phosphatase 142 H, Total Protein 6.4, Albumin 2.4 L, Globulin 4.0, Albumin/Globulin Ratio 0.6 L 11/28/20 06:14: Phosphorus 3.2 11/28/20 12:13: POC Glucose 259 H Microbiology: Microbiology 11/27/20 23:16 Sputum, Expectorated/Coughed Gram Stain - Final 11/27/20 09:15 Nasal Secretion SARS-CoV-2 Antigen (Rapid) - Final SARS-CoV-2 (COVID 19) D/C Instructions Call your doctor if you observe: Fever of 101 or Higher, Shortness of breath, Dizziness, Fainting spells, Swelling in the ankles, Chest pain and Increased palpitations (irregular heartbeat) Meaningful Use Info Meaningful Use Diagnoses (Choose all that apply): None applicable Discharge Plan Admission Admit Date/Time: 11/27/20 11:59 Attending Provider: Serafin Mccray Primary Care Provider: Analisa Nogueira Consulting Providers: Alda Avilez NP Instructions Patient Instructions: Coronavirus Disease 2019 (COVID-19): Overview Additional Instructions / Restrictions: Stay in quarantine from 10 days of onset of symptoms. Discharge Orders/Prescriptions Prescriptions: Continued furosemide 40 MG tablet 20 mg PO DAILY RF: 0 levothyroxine 137 MCG tablet 137 mcg PO DAILY RF: 0 metoprolol tartrate [Lopressor] 100 MG tablet 25 mg PO BID RF: 0 diphenoxylate-atropine [Lomotil] 1 EACH tablet 1 ea PO Q6H RF: 0 amlodipine 5 MG tablet 5 mg PO DAILY RF: 0 tamsulosin 0.4 MG capsule 0.4 mg PO BID RF: 0 gabapentin [Neurontin] 300 MG capsule 300 mg PO QHS RF: 0 dicyclomine 10 MG capsule 10 mg PO ACHS RF: 0 finasteride 5 MG tablet 5 mg PO DAILY RF: 0 insulin asp prt-insulin aspart [Novolog Mix 70-30 U-100 Insuln] 100 UNIT/ML solution 30 unit SQ DINNER RF: 0 duloxetine 20 MG capsule,delayed release(DR/EC) 20 mg PO QHS RF: 0 Creon 1 EACH capsule,delayed release(DR/EC) 3 cap PO TIDCM RF: 0 cyanocobalamin (vitamin B-12) 1,000 MCG tablet 1,000 mcg sublingual DAILY RF: 0 clopidogrel 75 MG tablet 75 mg PO DAILY RF: 0 rosuvastatin [Crestor] 5 MG tablet 5 mg PO MOTH RF: 0 cholecalciferol (vitamin D3) 50,000 UNIT capsule 50,000 unit PO TUTH RF: 0 cyanocobalamin (vitamin B-12) 1,000 MCG/ML solution 100 mcg IM Q7D RF: 0 Sandostatin LAR [place] 10 MG suspension,extended rel recon 10 mg IM QMONTH RF: 0 spironolactone 25 MG tablet 25 mg PO DAILY RF: 0 pantoprazole 20 MG tablet 20 mg PO BID RF: 0 oxycodone 5 MG tablet 5 mg PO Q8 PRN (Reason: Pain) RF: 0 insulin asp prt-insulin aspart [Novolog Mix 70-30 U-100 Insuln] 100 UNIT/ML solution 40 unit SQ BREAKFAST RF: 0 Melatonin 10 MG Tab.Subl 10 mg sublingual QHS PRN (Reason: Sleep) RF: 0 acetaminophen 500 MG tablet 500 mg PO Q4H PRN PRN (Reason: Pain) Qty: 20 RF: 0 lidocaine HCl 5 % Ointment 1 applic transdermal QHS RF: 0 colestipol 1 gram Tablet 1 g PO BID RF: 0 gabapentin 100 mg Tablet 200 mg PO DAILY RF: 0 loperamide 2 mg Capsule 2 mg PO Q6H RF: 0 nicotine (polacrilex) 2 mg Gum 2 mg PO Q2H PRN PRN (Reason: Smoking Cessation) RF: 0 ondansetron HCl 8 mg Tablet 8 mg PO Q8H PRN (Reason: Nausea) RF: 0 sildenafil [Viagra] 100 mg Tablet 100 mg PO DAILY PRN (Reason: Sexual Activity) RF: 0 sodium bicarbonate 650 mg Tablet 650 mg PO DAILY RF: 0 thiamine HCl (vitamin B1) 250 mg Tablet 1,850 mg PO DAILY RF: 0 Referrals / Follow Up: Analisa Nogueira MD [Primary Care Provider] - 2 Days Disposition Disposition (needs filled in before D/C Order can be placed): Home Health Service Charges/Coding Visit Charges OBSV E&M: 67394 Observation care discharge
--- NOTE | 2020-11-28 13:38 | CASEMGMT ---
PATRICIA CM in to discuss CARNEY form with patient. RN CM explained CARNEY form, patient voiced understanding. Pt signed form and filed in chart. Pt provided with a copy of signed CARNEY form. Patient had no further questions or concerns at this time.
[2020-11-28] MEDS: 0.9% Saline Lock 10 ML Syringe IV (15:46)
== END 2020-11-28 16:35 | disposition home health service (06) ==
LOC: ED 11:58 → MS3 13:08
PROVIDERS: Admitting Provider Family Medicine; Emergency Provider Emergency Medicine; PCP Internal Medicine; Visit Provider Family Medicine
DX: U07.1 COVID-19 (principal); N18.30 Chronic kidney disease, stage 3 unspecified; I12.9 Hypertensive chronic kidney disease with stage 1 through stage 4 chronic kidney disease, or unspecified chronic kidney disease; E11.22 Type 2 diabetes mellitus with diabetic chronic kidney disease; I25.10 Atherosclerotic heart disease of native coronary artery without angina pectoris; E03.9 Hypothyroidism, unspecified; E11.51 Type 2 diabetes mellitus with diabetic peripheral angiopathy without gangrene; G47.30 Sleep apnea, unspecified; K50.90 Crohn's disease, unspecified, without complications; F32.A Depression, unspecified; K90.89 Other intestinal malabsorption; G89.29 Other chronic pain; F41.9 Anxiety disorder, unspecified; E11.40 Type 2 diabetes mellitus with diabetic neuropathy, unspecified; N40.0 Benign prostatic hyperplasia without lower urinary tract symptoms; Z79.899 Other long term (current) drug therapy; Z79.4 Long term (current) use of insulin; Z87.891 Personal history of nicotine dependence; Z79.02 Long term (current) use of antithrombotics/antiplatelets
CPT/HCPCS: 36415; 71045; 80053; 82962; 83605; 83735; 84100; 84478; 85025; 85610; 85730; 87040; 87070; 87205; 87426; 93005; 96361; 96365; 96366; 97166; 97802; 99218; 99285; J7040; A4216; G0378

== ENCOUNTER 2020-11-30 16:46 | Outpatient (CLI) | payer MEDICARE, OTHER, SELFPAY ==
[2020-11-30] MEDS: 0.9% Saline Lock 10 ML Syringe IV ×2 (16:49→18:43)
[2020-11-30 16:54] VITALS: BP 129/65; PULSE 71; RESP 16; TEMP 36.8; O2SAT 94; BMI 33.4
[2020-11-30 17:45] VITALS: BP 136/64; PULSE 67; RESP 16; TEMP 36.6; O2SAT 98
[2020-11-30 18:45] VITALS: BP 121/55; PULSE 62; RESP 16; TEMP 36.6; O2SAT 99
== END 2020-11-30 18:45 | disposition home or self-care (01) ==
LOC: MS3OUT 16:46 → MS3 16:47
PROVIDERS: PCP Internal Medicine; Referring Provider Nurse Practitioner Adult Health; Visit Provider Nurse Practitioner Adult Health
DX: Z23 Encounter for immunization (principal); U07.1 COVID-19
CPT/HCPCS: J7050; M0243; A4216; Q0240

== ENCOUNTER → 2021-02-01 16:43 | Outpatient (CLI) | payer MEDICARE, OTHER, SELFPAY ==
--- NOTE | 2021-02-01 14:33 | CYSPIN_PTH ---
PATIENT: VENKATA LEAL LOC: [facility] U#:[id number] AGE/SX: 74/M ROOM: RE02/01/[address]: Dr. Danny Olson MD : 1950 BED: DIS: SPEC #: [id number] RECD: 02/01/21 16:40 STATUS: CORI RE #: [id number] LOLA: 02/01/21 14:[address]: Danny Olson DEPT: CYTOLOGY RECD BY: Janelle Ocampo ENTERED: 02/02/21 09:36 SP TYPE: CYSPIN FL OTHR DR: Dr. Analisa Nogueira MD Tissues: Urine Procedures: Pap Stain (control) Special Stain Group II Cytospin Fluid HEADER OPERATION: Not noted PRE-OP DIAGNOSIS: Bladder carcinoma TISSUE SUBMITTED: Urine for cytology DIAGNOSIS CYTOLOGY Urine for cytology (cytospin): Rare atypical urothelial cells present. See comment. AM:[email or web address] 02/02/2021 COMMENT The specimen primarily consists of squamous epithelial cells. Clinical correlation is suggested. 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 CYTOLOGY STUDY Slides are reviewed. CYTOLOGY GROSS Received is 70 ml of hazy yellow fluid labeled with the patient's name and and designated per the requisition as urine. Submitted for cytology preparation. / magdiel 02/02/2021 TC:? CPT: 58076
[2021-02-01 17:08] LABS: Cytology, Body Fluid / CSF SEE PATHOLOGY REPORT
== END ==
PROVIDERS: PCP Internal Medicine; Visit Provider Urology
DX: C67.4 Malignant neoplasm of posterior wall of bladder (principal)
CPT/HCPCS: 88108; 88313

== ENCOUNTER 2021-02-02 12:20 | Outpatient (RCR) | payer MEDICARE, OTHER, SELFPAY ==
[2020-11-16 18:07] VITALS: BMI 31.2
== END 2021-02-02 18:00 | disposition home or self-care (01) ==
LOC: HHLAB 12:20
PROVIDERS: PCP Internal Medicine; Visit Provider Internal Medicine
DX: K50.011 Crohn's disease of small intestine with rectal bleeding (principal); K50.018 Crohn's disease of small intestine with other complication

== ENCOUNTER 2021-03-05 14:38 | Outpatient (RCR) | payer MEDICARE, OTHER, SELFPAY ==
[2021-02-17 00:04] VITALS: BMI 31.2
[2021-03-05 15:01] LABS: Hematocrit 33.8 % (40-54); Hemoglobin 11.4 g/dL (13.0-16.5); Mean Corp Hgb Conc 33.7 g/dL (32-36); Mean Corpuscular Hgb 32.5 pg (27.0-32.0); Mean Corpuscular Volume 96.3 fL (80-94); Mean Platelet Vol. 14.4 fl (6.2-12.0); POSITIVE COUNT YES; Platelet Count 69 K/mm3 (150-450); RBC Distribution Width CV 14.6 % (11.6-14.6); RBC Distribution Width SD 51.2 fl (35.1-43.9); Red Blood Count 3.51 M/mm3 (4.6-6.2); White Blood Count 3.6 K/mm3 (4.4-11.0)
[2021-03-05 15:14] LABS: ALB/GLOB Ratio 0.8 RATIO (0.9-2.4); AST(SGOT) 39 U/L (15-37); Alanine Aminotransfer ALT/SGPT 40 U/L (16-61); Albumin, Serum 2.8 g/dL (3.2-5.0); Alkaline Phosphatase 152 U/L (45-117); Anion Gap 4 (5-15); BUN 37 mg/dL (7-18); BUN/Creat Ratio 22.3 RATIO (10-20); Calcium,Total 8.9 mg/dL (8.5-10.1); Chloride 105 mmol/L (98-107); Creatinine, Serum 1.66 mg/dL (0.70-1.30); EST Glomerular Filtration Rate 44 mL/min (>60); Est Glom Filt Rate - Afr Amer 53 mL/min (>60); Globulin 3.7 g/dL (2.2-4.2); Glucose 183 mg/dL (74-106); Magnesium 2.2 mg/dL (1.6-2.6); Phosphorus 3.3 mg/dL (2.5-4.9); Potassium 4.8 mmol/L (3.5-5.1); Protein, Total 6.5 g/dL (6.4-8.2); Scan Indicated on CBC? Y/N NO; Sodium Level 137 mmol/L (136-145)
== END 2021-03-19 18:00 | disposition home or self-care (01) ==
LOC: HHLAB 14:38
PROVIDERS: PCP Internal Medicine; Visit Provider Internal Medicine
DX: Z45.2 Encounter for adjustment and management of vascular access device (principal); K50.011 Crohn's disease of small intestine with rectal bleeding; K64.8 Other hemorrhoids; G89.29 Other chronic pain
CPT/HCPCS: 80053; 83735; 84100; 85027

== ENCOUNTER 2021-05-04 16:19 | Emergency (ER) | payer MEDICARE, OTHER, SELFPAY ==
[2021-05-04 16:20] VITALS: BP 175/77; PULSE 111; RESP 22; TEMP 36.9; O2SAT 97; BMI 35.2
--- NOTE | 2021-05-04 16:22 | EKG12_ITS ---
Test Reason : CP Blood Pressure : / mmHG Vent. Rate : 096 BPM Atrial Rate : 096 BPM P-R Int : 138 ms QRS Dur : 138 ms QT Int : 394 ms P-R-T Axes : 037 085 -07 degrees QTc Int : 497 ms Normal sinus rhythm Right bundle branch block T wave abnormality, consider inferior ischemia Abnormal ECG Confirmed by ORLY ORDONEZ, KALEIGH ([id number]), supervising film or videotape editor MANNY BECKHAM ([id number]) on 05/07/2021 11:11:19 A M Referred By: MERCEDEZ Confirmed By:ANNELIESE VILLALBA MD
[2021-05-04 16:23] VITALS: O2SAT 93
[2021-05-04 16:32] VITALS: O2SAT 93
--- NOTE | 2021-05-04 16:33 | ED.VIS.CHEST ---
HPI History of Present Illness Chief Complaint: Chest Pain Narrative Narrative: Patient presents with his because of chest pain that he had when he was walking out of Dr. Mora's office. He has past medical history of coronary artery disease and had a stent placed remotely. He has hypothyroidism, hypertension, diabetes, liver failure with varices. 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 He has Crohn's disease. His Crohn disease causes anemia for which she was getting iron infusion today. He was sent to the emergency department mainly because he had chest pain and tightness as he was walking out of the office and completing his iron infusion. He states that he has had shortness of breath in the past but not necessarily a direct correlation with the chest pain that he had walking out. His states that they have a delicate balance between fluid overload and dehydration. [facility] Medical History BiPAP (biphasic positive airway pressure) dependence Cirrhosis CKD (chronic kidney disease) stage 3, GFR 30-59 ml/min Coronary artery disease Diabetes Difficulty swallowing Hypertension Hypothyroidism Ileus Kidney disease Sleep apnea Home Medications Creon 3 cap PO TIDCM 08/22/16 [History Last Taken 08/21/16] amlodipine 5 mg PO DAILY 08/22/16 [History Last Taken 07/03/20 08:00] dicyclomine 10 mg PO ACHS 08/22/16 [History Last Taken 07/03/20 08:00] diphenoxylate-atropine [Lomotil] 1 ea PO Q6H 08/22/16 [History Last Taken 07/03/20 08:00] duloxetine 20 mg PO QHS 08/22/16 [History Last Taken 07/03/20 21:00] finasteride 5 mg PO DAILY 08/22/16 [History Last Taken 07/03/20 08:00] furosemide 20 mg PO DAILY 08/22/16 [History Last Taken 07/03/20 08:00] gabapentin [Neurontin] 300 mg PO QHS 08/22/16 [History Last Taken 07/03/20 21:00] insulin asp prt-insulin aspart [Novolog Mix 70-30 U-100 Insuln] 30 unit SQ DINNER 08/22/16 [History Last Taken 07/03/20 17:00] levothyroxine 137 mcg PO DAILY 08/22/16 [History Last Taken 07/03/20 06:00] metoprolol tartrate [Lopressor] 25 mg PO BID 08/22/16 [History Last Taken 07/03/20 08:00] tamsulosin 0.4 mg PO BID 08/22/16 [History Last Taken 07/03/20 17:00] cholecalciferol (vitamin D3) 50,000 unit PO TUTH 10/25/16 [History Last Taken 07/03/20 08:00] clopidogrel 75 mg PO DAILY 10/25/16 [History Last Taken 07/03/20 08:00] cyanocobalamin (vitamin B-12) 1,000 mcg SUBLINGUAL DAILY 10/25/16 [History Last Taken Unknown] rosuvastatin [Crestor] 5 mg PO MOTH 10/25/16 [History Last Taken 07/03/20 08:00] Sandostatin LAR [place] 10 mg IM QMONTH 11/19/16 [History Last Taken 06/20/20] cyanocobalamin (vitamin B-12) 100 mcg IM Q7D 11/19/16 [History Last Taken 06/28/20 08:00] Melatonin 10 mg SUBLINGUAL QHS PRN 04/29/18 [History Last Taken 07/03/20 21:00] insulin asp prt-insulin aspart [Novolog Mix 70-30 U-100 Insuln] 40 unit SQ BREAKFAST 04/29/18 [History Last Taken 07/03/20 08:00] oxycodone 5 mg PO Q8 PRN 04/29/18 [History Last Taken 07/03/20 21:00] pantoprazole 20 mg PO BID 04/29/18 [History Last Taken 07/03/20 21:00] spironolactone 25 mg PO DAILY 04/29/18 [History Last Taken 07/03/20 08:00] acetaminophen 500 mg PO Q4H PRN PRN #20 tablet 05/06/18 [Rx Last Taken Unknown] colestipol 1 g PO BID 07/04/20 [History Last Taken 07/03/20 21:00] gabapentin 200 mg PO DAILY 07/04/20 [History Last Taken 07/03/20 08:00] lidocaine HCl 1 applic TRANSDERMAL QHS 07/04/20 [History Last Taken 07/03/20 08:00] loperamide 2 mg PO Q6H 07/04/20 [History Last Taken 07/03/20 17:00] nicotine (polacrilex) 2 mg PO Q2H PRN PRN 07/04/20 [History Last Taken 07/03/20] ondansetron HCl 8 mg PO Q8H PRN 07/04/20 [History Last Taken 07/03/20] sildenafil [Viagra] 100 mg PO DAILY PRN 07/04/20 [History Last Taken Unknown] sodium bicarbonate 650 mg PO DAILY 07/04/20 [History Last Taken 07/03/20 21:00] thiamine HCl (vitamin B1) 1,850 mg PO DAILY 07/04/20 [History Last Taken 07/03/20 21:00] Allergy/AdvReac Type Severity Reaction Status Date / Time procaine HCl [From Novocain] Allergy Other Verified 05/04/21 16:49 Bugtdne-UMT-IpI Reductase Allergy Other Verified 05/04/21 16:49 Inhibitor [Myozjxs-Zkr-Wwz Reductase Inhibitor] Family History Other Cancer Surgical History History of appendectomy History of cholecystectomy History of coronary artery stent placement Social History household members: spouse housing: house current occupational status: retired Smoking Status: Former smoker substance use type: does not use ROS ROS ED ROS Narrative Constitutional: No fever, no chills. HEENT: No sore throat. No neck pain. No loss of vision. No rhinorrhea. Cardiovascular: Positive chest tightness/chest pain. No palpitations. No pedal edema. Respiratory: No cough, no shortness of breath. Abdominal: No abdominal pain. Positive nausea. No vomiting. Genitourinary: No dysuria. No hematuria. Musculoskeletal: No myalgias. No arthralgias. Neurologic: No headaches. No dizziness. No lightheadedness. Skin: No rash. No change in color. Psychiatric: No depression. No anxiety. EXAM Physical Exam Const Vital Signs: 05/04/21 16:20 05/04/21 16:23 05/04/21 16:32 Temperature 98.5 F Temperature Source Oral Pulse Rate 111 H Respiratory Rate 22 H Respiratory Effort Blood Pressure 175/77 H Blood Pressure Mean 109 Pulse Ox 97 93 93 Oxygen Delivery Method Room Air Room Air Room Air 05/04/21 16:49 05/04/21 18:19 05/04/21 19:53 Temperature Temperature Source Pulse Rate 85 84 Respiratory Rate 16 12 Respiratory Effort Normal Non-Labored Blood Pressure 168/88 H 167/87 H Blood Pressure Mean 114 113 Pulse Ox 95 92 Oxygen Delivery Method Room Air Room Air Heart Score History: Moderately Suspicious ECG: Normal Age: >/= 65 years Risk Factors: >/= 3 Risk Factors or History of CAD Troponin: </= Normal Limit Score: 5 MDM MDM MDM Narrative Medical decision making narrative: Chest pain work-up was pursued. Patient does not take aspirin. He takes Plavix. His EKG demonstrates normal sinus rhythm at 96 bpm with a right bundle branch block but no acute ST changes/no STEMI. CBC shows white count 4.3, chronically low, hemoglobin stable at 12.5. He has thrombocytopenia with a platelet count of 79 which is also chronic. Electrolyte grossly unremarkable except for creatinine 1.8 which also is consistent with his chronic kidney injury. Lipase on the low end, no pancreatitis. Initial high-sensitivity troponin normal at 6. Repeat is 5 for negative delta troponin. I do feel that he has been ruled out by biomarkers and does not require observation. Patient did have mild epigastric pain, and he states he takes a GI cocktail at home. I do feel he may be having esophageal spasm. He was given a GI cocktail with resolution of his symptoms. At this point in time, I feel he can be discharged safely home with follow-up. Return instructions to the emergency department were reviewed. Disposition is discharged home in stable condition. Patient and are comfortable with the plan. Lab Data Attestation: I reviewed the patient's lab results. Labs: Laboratory Results - last 24 hr 05/04/21 05/04/21 05/04/21 16:25 16:25 16:25 WBC 4.3 L RBC 3.84 L Hgb 12.5 L Hct 36.9 L MCV 96.1 H MCH 32.6 H MCHC 33.9 RDW Std Deviation 56.0 H RDW Coeff of Arlin 16.1 H Plt Count 79 L MPV 12.9 H Immature Gran % (Auto) 0.500 Neut % (Auto) 70.1 H Lymph % (Auto) 14.6 L [place] % (Auto) 12.2 H Eos % (Auto) 1.9 Baso % (Auto) 0.7 Absolute Neuts (auto) 3.0 Absolute Lymphs (auto) 0.62 L Nucleated RBC % 0 Differential Comment SCANNED PT 15.4 H INR 1.3 Sodium Cancelled Potassium Cancelled Chloride Cancelled Carbon Dioxide Cancelled Anion Gap Cancelled BUN Cancelled Creatinine Cancelled Estim Creat Clear Calc Cancelled Est GFR (MDRD) Af Amer Cancelled Est GFR (MDRD) Non-Af Cancelled BUN/Creatinine Ratio Cancelled Glucose Cancelled Calcium Cancelled Total Bilirubin AST ALT Alkaline Phosphatase Troponin I High Sens Cancelled B-Natriuretic Peptide Total Protein Albumin Globulin Albumin/Globulin Ratio Lipase POC Glucose 05/04/21 05/04/21 05/04/21 16:25 16:25 18:39 WBC RBC Hgb Hct MCV MCH MCHC RDW Std Deviation RDW Coeff of Arlin Plt Count MPV Immature Gran % (Auto) Neut % (Auto) Lymph % (Auto) [place] % (Auto) Eos % (Auto) Baso % (Auto) Absolute Neuts (auto) Absolute Lymphs (auto) Nucleated RBC % Differential Comment PT INR Sodium 138 Potassium 3.9 Chloride 104 Carbon Dioxide 27.0 Anion Gap 7 BUN 30 H Creatinine 1.80 H Estim Creat Clear Calc 38.30 Est GFR (MDRD) Af Amer 48 L Est GFR (MDRD) Non-Af 40 L BUN/Creatinine Ratio 16.7 Glucose 99 Calcium 9.5 Total Bilirubin 0.60 AST 48 H ALT 55 Alkaline Phosphatase 219 H Troponin I High Sens 6 5 B-Natriuretic Peptide 10.1 Total Protein 7.2 Albumin 3.1 L Globulin 4.1 Albumin/Globulin Ratio 0.8 L Lipase 44 L POC Glucose 05/04/21 19:47 WBC RBC Hgb Hct MCV MCH MCHC RDW Std Deviation RDW Coeff of Arlin Plt Count MPV Immature Gran % (Auto) Neut % (Auto) Lymph % (Auto) [place] % (Auto) Eos % (Auto) Baso % (Auto) Absolute Neuts (auto) Absolute Lymphs (auto) Nucleated RBC % Differential Comment PT INR Sodium Potassium Chloride Carbon Dioxide Anion Gap BUN Creatinine Estim Creat Clear Calc Est GFR (MDRD) Af Amer Est GFR (MDRD) Non-Af BUN/Creatinine Ratio Glucose Calcium Total Bilirubin AST ALT Alkaline Phosphatase Troponin I High Sens B-Natriuretic Peptide Total Protein Albumin Globulin Albumin/Globulin Ratio Lipase POC Glucose 136 H Radiography Diagnostic Testing: Clinical Impression(s) from Imaging Studies Chest X-Ray 05/04/21 16:40 IMPRESSION: No acute pulmonary process, no interval change Electronically Signed: Casa Gray MD at 16:49 EDT Reading Location ID and State: [facility] / [place] , Service support , Discharge Plan Triage Chief Complaint: Chest Pain ED Provider: Oscar Mao Dx/Rx/DC Orders Clinical Impression: Chest pain, Esophageal spasm Instructions: ED Chest Pain, Uncertain Cause, ED Esophageal Spasm Prescriptions: No Action furosemide 40 MG tablet 20 mg PO DAILY RF: 0 levothyroxine 137 MCG tablet 137 mcg PO DAILY RF: 0 metoprolol tartrate [Lopressor] 100 MG tablet 25 mg PO BID RF: 0 diphenoxylate-atropine [Lomotil] 1 EACH tablet 1 ea PO Q6H RF: 0 amlodipine 5 MG tablet 5 mg PO DAILY RF: 0 tamsulosin 0.4 MG capsule 0.4 mg PO BID RF: 0 gabapentin [Neurontin] 300 MG capsule 300 mg PO QHS RF: 0 dicyclomine 10 MG capsule 10 mg PO ACHS RF: 0 finasteride 5 MG tablet 5 mg PO DAILY RF: 0 insulin asp prt-insulin aspart [Novolog Mix 70-30 U-100 Insuln] 100 UNIT/ML solution 30 unit SQ DINNER RF: 0 duloxetine 20 MG capsule,delayed release(DR/EC) 20 mg PO QHS RF: 0 Creon 1 EACH capsule,delayed release(DR/EC) 3 cap PO TIDCM RF: 0 cyanocobalamin (vitamin B-12) 1,000 MCG tablet 1,000 mcg sublingual DAILY RF: 0 clopidogrel 75 MG tablet 75 mg PO DAILY RF: 0 rosuvastatin [Crestor] 5 MG tablet 5 mg PO MOTH RF: 0 cholecalciferol (vitamin D3) 50,000 UNIT capsule 50,000 unit PO TUTH RF: 0 cyanocobalamin (vitamin B-12) 1,000 MCG/ML solution 100 mcg IM Q7D RF: 0 Sandostatin LAR [place] 10 MG suspension,extended rel recon 10 mg IM QMONTH RF: 0 spironolactone 25 MG tablet 25 mg PO DAILY RF: 0 pantoprazole 20 MG tablet 20 mg PO BID RF: 0 oxycodone 5 MG tablet 5 mg PO Q8 PRN (Reason: Pain) RF: 0 insulin asp prt-insulin aspart [Novolog Mix 70-30 U-100 Insuln] 100 UNIT/ML solution 40 unit SQ BREAKFAST RF: 0 Melatonin 10 MG Tab.Subl 10 mg sublingual QHS PRN (Reason: Sleep) RF: 0 acetaminophen 500 MG tablet 500 mg PO Q4H PRN PRN (Reason: Pain) Qty: 20 RF: 0 lidocaine HCl 5 % Ointment 1 applic transdermal QHS RF: 0 colestipol 1 gram Tablet 1 g PO BID RF: 0 gabapentin 100 mg Tablet 200 mg PO DAILY RF: 0 loperamide 2 mg Capsule 2 mg PO Q6H RF: 0 nicotine (polacrilex) 2 mg Gum 2 mg PO Q2H PRN PRN (Reason: Smoking Cessation) RF: 0 ondansetron HCl 8 mg Tablet 8 mg PO Q8H PRN (Reason: Nausea) RF: 0 sildenafil [Viagra] 100 mg Tablet 100 mg PO DAILY PRN (Reason: Sexual Activity) RF: 0 sodium bicarbonate 650 mg Tablet 650 mg PO DAILY RF: 0 thiamine HCl (vitamin B1) 250 mg Tablet 1,850 mg PO DAILY RF: 0 Primary Care Provider: Analisa Nogueira Referrals: Analisa Nogueira MD [Primary Care Provider] - 3-5 Days if not improving Disposition Disposition: Home, Self Care
[2021-05-04 16:36] LABS: Absolute Lymphocyte Count 0.62 X10^3/uL (0.83-4.51); Basophil# 0.03 X10^3/uL; Basophil% 0.7 % (0-1); Eosinophil# 0.08 X10^3/uL; Eosinophils% 1.9 % (0-5); Hematocrit 36.9 % (40-54); Hemoglobin 12.5 g/dL (13.0-16.5); Lymphocyte # 0.62 X10^3/ul (0.83-4.51); Lymphocyte % 14.6 % (19-41); Mean Corp Hgb Conc 33.9 g/dL (32-36); Mean Corpuscular Hgb 32.6 pg (27.0-32.0); Mean Corpuscular Volume 96.1 fL (80-94); Mean Platelet Vol. 12.9 fl (6.2-12.0); Monocyte# 0.52 X10^3/uL; Monocyte% 12.2 % (0-10); NRBC Flagged by Analyzer 0 % (0-5); Neutrophil # 2.99 X10^3/uL (2.7-7.7); Neutrophil % 70.1 % (47-70); POSITIVE COUNT YES; Platelet Count 79 K/mm3 (150-450); RBC Distribution Width CV 16.1 % (11.6-14.6); Red Blood Count 3.84 M/mm3 (4.6-6.2); White Blood Count 4.3 K/mm3 (4.4-11.0)
[2021-05-04 16:37] LABS: Differential Indicated SCAN CRITERIA MET
--- NOTE | 2021-05-04 16:40 | RAD_ITS ---
STUDY: X-RAY CHEST REASON FOR EXAM: Male, 71 years old. Substernal chest pain TECHNIQUE: Single AP portable view of the chest. COMPARISON: 11/27/2020 FINDINGS: EKG leads overlie the chest. Stable appearance of the right subclavian catheter. The lungs are clear and expanded. There is no demonstrated pleural abnormality. Normal size heart. Normal mediastinum and [place]. Normal visualized pulmonary arteries. Normal visualized aortic arch and descending thoracic aorta. Normal visualized thoracic spine. Normal visualized ribs, clavicles, and shoulders. There is no demonstrated abnormality of the visualized soft tissue structures of the upper abdomen. RAD/Chest 1 View (Portable) IMPRESSION: No acute pulmonary process, no interval change Electronically Signed: Casa Gray MD at 16:49 EDT ,
[2021-05-04] MEDS: Ondansetron 4 MG/2 ML Vial IV (16:41)
[2021-05-04 16:47] LABS: International Normalized Ratio 1.3; Prothrombin Time (Protime)PT. 15.4 SECONDS (11.7-14.9)
[2021-05-04 16:58] LABS: Differential Comment SCANNED
[2021-05-04 17:14] LABS: ALB/GLOB Ratio 0.8 RATIO (0.9-2.4); AST(SGOT) 48 U/L (15-37); Alanine Aminotransfer ALT/SGPT 55 U/L (16-61); Albumin, Serum 3.1 g/dL (3.2-5.0); Alkaline Phosphatase 219 U/L (45-117); Anion Gap 7 (5-15); BUN 30 mg/dL (7-18); BUN/Creat Ratio 16.7 RATIO (10-20); Calcium,Total 9.5 mg/dL (8.5-10.1); Chloride 104 mmol/L (98-107); EST Glomerular Filtration Rate 40 mL/min (>60); Est Glom Filt Rate - Afr Amer 48 mL/min (>60); Globulin 4.1 g/dL (2.2-4.2); Glucose 99 mg/dL (74-106); Lipase 44 U/L (73-393); Potassium 3.9 mmol/L (3.5-5.1); Protein, Total 7.2 g/dL (6.4-8.2); Sodium Level 138 mmol/L (136-145); Troponin-I HS 6 pg/mL (3.0-78.0)
[2021-05-04 17:16] LABS: BNP,B-Type NATRIURETIC PEPTIDE 10.1 pg/mL (0-100)
[2021-05-04 18:19] VITALS: BP 168/88; PULSE 85; RESP 16; O2SAT 95
[2021-05-04] MEDS: Mag Hydrox/Al Hydrox/Simeth 30 ML UDC PO (18:36)
[2021-05-04 19:02] LABS: Troponin-I HS 5 pg/mL (3.0-78.0)
[2021-05-04 19:51] LABS: Bedside Glucose 136 mg/dL (74-106)
[2021-05-04 19:53] VITALS: BP 167/87; PULSE 84; RESP 12; O2SAT 92
[2021-05-04 20:00] VITALS: BP 140/77; PULSE 81; RESP 17; O2SAT 96
== END 2021-05-04 20:13 | disposition home or self-care (01) ==
PROVIDERS: Emergency Provider Emergency Medicine; PCP Internal Medicine; Visit Provider Emergency Medicine
DX: R07.9 Chest pain, unspecified (principal); K22.4 Dyskinesia of esophagus; I25.10 Atherosclerotic heart disease of native coronary artery without angina pectoris; G47.30 Sleep apnea, unspecified; Z95.5 Presence of coronary angioplasty implant and graft; Z87.891 Personal history of nicotine dependence; Z79.01 Long term (current) use of anticoagulants
CPT/HCPCS: 71045; 80053; 82962; 83690; 83880; 84484; 85025; 85610; 93005; 96374; 99283; A4216; J2405

== ENCOUNTER 2021-07-14 12:50 | Emergency (ER) | payer MEDICARE, OTHER, SELFPAY ==
[2021-07-14 12:51] VITALS: BP 137/71; PULSE 100; RESP 18; TEMP 36.6; O2SAT 96; BMI 35.2
--- NOTE | 2021-07-14 13:34 | CT_ITS ---
STUDY: CT ABDOMEN AND PELVIS WITHOUT CONTRAST REASON FOR EXAM: Male, 71 years old. flank pain RADIATION DOSAGE (If Supplied By Facility): CTDIvol = ( 20.35 ) mGy, DLP = ( 1067.46 ) mGycm TECHNIQUE: Transaxial images were obtained from the dome of the diaphragm to the symphysis pubis without oral contrast, and without intravenous contrast. Sagittal and coronal images were reconstructed. Individualized dose optimization techniques were used for this CT. COMPARISON: 07/04/2020 FINDINGS: Some dependent bibasilar atelectasis. The visualized portions of the heart are within normal limits. There is a diffuse contour abnormality of the liver consistent with cirrhotic changes. There are surgical clips in the gallbladder fossa consistent with a prior cholecystectomy. Normal spleen. Normal pancreas. Normal bilateral adrenal glands. Normal right kidney. Normal left kidney. Normal visualized stomach. Diverticulum of second portion the duodenum. Right lower quadrant mucous fistula. Normal colon. There is non-visualization of the appendix. There is diffuse atherosclerotic calcification of the abdominal aorta, without a demonstrated aneurysm. Normal inferior vena cava. Normal retroperitoneum. Normal urinary bladder. Normal abdominal wall. There are diffuse degenerative changes of the visualized lumbar spine. CT/Abdomen/Pelvis without Cont IMPRESSION: No renal or ureteral stone. Electronically Signed: Trevon Rodriguez MD at 15:11 EDT ,
--- NOTE | 2021-07-14 13:35 | EX.ED.DYSGE1 ---
HPI <SISSY Mckinley - Last Filed: 07/14/21 15:30> History of Present Illness Chief Complaint: Back Narrative Narrative: Patient is a 71-year-old male with history of colon cancer, Crohn's disease, diabetes, hypothyroidism, chronic kidney disease who presents to the emergency department with a sudden onset of right-sided flank pain. Patient states at 7 AM, this sharp pain in his right flank woke him up. Patient states the pain continued, he feels nauseous, and is here for evaluation. He denies any vomiting, denies any difficulty urinating. Denies any known injury. Patient is concerned with a kidney stone. PFS <SISSY Mckinley - Last Filed: 07/14/21 15:30> [facility] Medical History BiPAP (biphasic positive airway pressure) dependence Cirrhosis CKD (chronic kidney disease) stage 3, GFR 30-59 ml/min Coronary artery disease Diabetes Difficulty swallowing Hypertension Hypothyroidism Ileus Kidney disease Sleep apnea Home Medications Creon 3 cap PO TIDCM 08/22/16 [History Last Taken 08/21/16] amlodipine 5 mg PO DAILY 08/22/16 [History Last Taken 07/03/20 08:00] dicyclomine 10 mg PO ACHS 08/22/16 [History Last Taken 07/03/20 08:00] diphenoxylate-atropine [Lomotil] 1 ea PO Q6H 08/22/16 [History Last Taken 07/03/20 08:00] duloxetine 20 mg PO QHS 08/22/16 [History Last Taken 07/03/20 21:00] finasteride 5 mg PO DAILY 08/22/16 [History Last Taken 07/03/20 08:00] furosemide 20 mg PO DAILY 08/22/16 [History Last Taken 07/03/20 08:00] gabapentin [Neurontin] 300 mg PO QHS 08/22/16 [History Last Taken 07/03/20 21:00] insulin asp prt-insulin aspart [Novolog Mix 70-30 U-100 Insuln] 30 unit SQ DINNER 08/22/16 [History Last Taken 07/03/20 17:00] levothyroxine 137 mcg PO DAILY 08/22/16 [History Last Taken 07/03/20 06:00] metoprolol tartrate [Lopressor] 25 mg PO BID 08/22/16 [History Last Taken 07/03/20 08:00] tamsulosin 0.4 mg PO BID 08/22/16 [History Last Taken 07/03/20 17:00] cholecalciferol (vitamin D3) 50,000 unit PO TUTH 10/25/16 [History Last Taken 07/03/20 08:00] clopidogrel 75 mg PO DAILY 10/25/16 [History Last Taken 07/03/20 08:00] cyanocobalamin (vitamin B-12) 1,000 mcg SUBLINGUAL DAILY 10/25/16 [History Last Taken Unknown] rosuvastatin [Crestor] 5 mg PO MOTH 10/25/16 [History Last Taken 07/03/20 08:00] Sandostatin LAR Depot 10 mg IM QMONTH 11/19/16 [History Last Taken 06/20/20] cyanocobalamin (vitamin B-12) 100 mcg IM Q7D 11/19/16 [History Last Taken 06/28/20 08:00] Melatonin 10 mg SUBLINGUAL QHS PRN 04/29/18 [History Last Taken 07/03/20 21:00] insulin asp prt-insulin aspart [Novolog Mix 70-30 U-100 Insuln] 40 unit SQ BREAKFAST 04/29/18 [History Last Taken 07/03/20 08:00] oxycodone 5 mg PO Q8 PRN 04/29/18 [History Last Taken 07/03/20 21:00] pantoprazole 20 mg PO BID 04/29/18 [History Last Taken 07/03/20 21:00] spironolactone 25 mg PO DAILY 04/29/18 [History Last Taken 07/03/20 08:00] acetaminophen 500 mg PO Q4H PRN PRN #20 tablet 05/06/18 [Rx Last Taken Unknown] colestipol 1 g PO BID 07/04/20 [History Last Taken 07/03/20 21:00] gabapentin 200 mg PO DAILY 07/04/20 [History Last Taken 07/03/20 08:00] lidocaine HCl 1 applic TRANSDERMAL QHS 07/04/20 [History Last Taken 07/03/20 08:00] loperamide 2 mg PO Q6H 07/04/20 [History Last Taken 07/03/20 17:00] nicotine (polacrilex) 2 mg PO Q2H PRN PRN 07/04/20 [History Last Taken 07/03/20] ondansetron HCl 8 mg PO Q8H PRN 07/04/20 [History Last Taken 07/03/20] sildenafil [Viagra] 100 mg PO DAILY PRN 07/04/20 [History Last Taken Unknown] sodium bicarbonate 650 mg PO DAILY 07/04/20 [History Last Taken 07/03/20 21:00] thiamine HCl (vitamin B1) 1,850 mg PO DAILY 07/04/20 [History Last Taken 07/03/20 21:00] Allergy/AdvReac Type Severity Reaction Status Date / Time procaine HCl [From Novocain] Allergy Other Verified 07/14/21 12:51 Oewovcy-ZGT-LmW Reductase Allergy Other Verified 07/14/21 12:51 Inhibitor [Fcvkuxw-Ncc-Mcu Reductase Inhibitor] Family History Other Cancer Surgical History History of appendectomy History of cholecystectomy History of coronary artery stent placement Social History household members: spouse housing: house current occupational status: retired Smoking Status: Former smoker substance use type: does not use ROS <SISSY Mckinley - Last Filed: 07/14/21 15:30> ROS ED ROS Narrative Constitutional: Negative for fever, chills, weight loss, weakness Eyes: Negative for vision loss, vision change, double vision ENT: Negative for any sore throat, ear pain, congestion Cardiovascular: Negative for any chest pain, tightness, palpitations Respiratory: Negative for any cough, sputum production, hemoptysis, dyspnea, dyspnea on exertion, orthopnea Gastrointestinal: Negative for any abdominal pain, vomiting, diarrhea, constipation, blood in stool, blood in vomit. Positive for nausea : Negative for any urinary frequency, dysuria, retention, blood in urine Muscle skeletal: Negative for any muscle joint pain, stiffness, myalgias, arthralgias, neck pain, back pain. Positive for right flank pain Neurological: Negative for any headache, syncope, numbness or tingling, dizziness Skin: Negative for any rashes, lumps, itching, abrasions, lacerations Psychiatric: Negative for any depression, anxiety, stress, suicidal ideation, homicidal ideation Hematologic: Negative for any easy bruising, excessive bruising, easy bleeding Allergies: Negative for any eczema, hives, rash EXAM <SISSY Mckinley Last Filed: 07/14/21 15:30> Physical Exam Narrative Exam Narrative: Vital signs reviewed. HEET: Head normocephalic atraumatic, TMs clear bilaterally. Posterior pharynx is clear, moist mucous membranes. Nares clear bilaterally. Neck: Supple with no lymphadenopathy or tenderness. No signs of meningismus, negative jolt sign. Cardiac: Regular rate and rhythm no murmurs gallops or rubs, equal peripheral pulses bilaterally. Respiratory: Lungs clear to auscultation bilaterally. No chest tenderness. Abdomen: Soft, nontender, nondistended. No abdominal bruit or pulsatile masses. No hepatosplenomegaly Extremities: No peripheral edema, no signs of gross trauma or deformity. Active full range of motion of all extremities. Neuro: Cranial nerves II through XII intact, no focal neurological deficits. Skin: Clean dry and intact with no rash, purpura, petechiae, vesicles or pustules. Backs/flank: Positive for right-sided CVA tenderness, no midline spinal tenderness, no deformity. Psych: Normal mood and affect. No SI, HI or acute psychosis. Const Vital Signs: 07/14/21 12:51 Temperature 97.9 F Temperature Source Temporal Pulse Rate 100 Respiratory Rate 18 Blood Pressure 137/71 H Blood Pressure Mean 93 Pulse Ox 96 Oxygen Delivery Method Room Air Positive well nourished and well developed General Appearance ED: well developed <Dr. Anyi Vazquez, DO - Last Filed: 07/25/21 14:54> Physical Exam Const Vital Signs: 07/14/21 12:51 Temperature 97.9 F Temperature Source Temporal Pulse Rate 100 Respiratory Rate 18 Blood Pressure 137/71 H Blood Pressure Mean 93 Pulse Ox 96 Oxygen Delivery Method Room Air MDM <SISSY Mckinley - Last Filed: 07/14/21 15:30> [facility] MDM Narrative Medical decision making narrative: Patient arrives in no distress, patient appears well, patient presents the emergency department right flank pain that woke him up at 7 AM this morning. From the patient's story, physical examination, patient did receive a abdominal work-up concerning for a kidney stone. Patient CBC actually improved, patient's chemistry shows slight renal dysfunction with a creatinine of 1.6 however this is chronic for the patient. Patient's urinalysis was negative for any blood, infection. Patient did receive a CT scan of the abdomen pelvis, this showed no renal ureteral stone. Patient was given IV fluids, IV morphine. This did greatly improve the patient's pain. I spoke with the patient, he states that he is happy that was not a kidney stone or a kidney infection. He will be given 1 more dose of IV morphine here, he has Percocet at home for chronic pain. At this time, do not believe there is any acute abdominal pelvic pathology. He is given strict return precaution to return for any worsening pain, fever chills nausea vomiting. Patient stable for discharge Lab Data Labs: Laboratory Results - last 24 hr 07/14/21 07/14/21 07/14/21 14:10 14:10 14:36 WBC 4.4 RBC 3.61 L Hgb 11.9 L Hct 34.8 L MCV 96.4 H MCH 33.0 H MCHC 34.2 RDW Std Deviation 51.2 H RDW Coeff of Arlin 14.3 Plt Count 69 L MPV 12.5 H Immature Gran % (Auto) 0.500 Neut % (Auto) 74.9 H Lymph % (Auto) 10.1 L Marion % (Auto) 12.6 H Eos % (Auto) 1.4 Baso % (Auto) 0.5 Absolute Neuts (auto) 3.3 Absolute Lymphs (auto) 0.44 L Nucleated RBC % 0 Differential Comment SCANNED Platelet Estimate MOD DEC Sodium 134 L Potassium 3.8 Chloride 96 L Carbon Dioxide 32.0 Anion Gap 6 BUN 36 H Creatinine 1.68 H Estim Creat Clear Calc 41.04 Est GFR (MDRD) Af Amer 52 L Est GFR (MDRD) Non-Af 43 L BUN/Creatinine Ratio 21.4 H Glucose 190 H Calcium 8.5 Urine Color Yellow Urine Clarity Clear Urine pH 7.0 Ur Specific [place] 1.010 Urine Protein 15 H Urine Glucose (UA) 50 H Urine Ketones Negative Urine Occult Blood Negative Urine Nitrite Negative Urine Bilirubin Negative Urine Urobilinogen 1 H Ur Leukocyte Esterase Negative Urine RBC 0 SEEN Urine WBC 0 SEEN Ur Squamous Epith Cells 0-5 SEEN Urine Bacteria 0 SEEN Urine Mucus 0 SEEN Radiography Diagnostic Testing: Clinical Impression(s) from Imaging Studies Abdomen/Pelvis CT 07/14/21 13:34 IMPRESSION: No renal or ureteral stone. Electronically Signed: Trevon Rodriguez MD at 15:11 EDT Reading Location ID and State: [facility] / [place] Tel , Service support , <Dr. Anyi Vazquez, DO - Last Filed: 07/25/21 14:54> MDM MDM Narrative Medical decision making narrative: Patient evaluated independently and in conjunction with physician case management assistant. Agree with note above unless documented otherwise. I was personally present or immediately available for all clinically relevant procedures and performed my own physical exam and review of systems. Patient is a 71-year-old male with complex medical history presenting with sudden onset of right flank pain. Patient does have chronic pain as well as Crohn's disease and chronic colonic fistula of the abdomen. No change in the drainage of this. He is given pain medication in the ER with improvement of symptoms. Presentation is concerning for muscle skeletal pain versus kidney stone. Patient's lab work is largely unremarkable no acute process. CT of the abdomen pelvis does not show any acute process either. Patient has pain control and will follow-up outpatient for further evaluation of his pain. He is counseled return precautions. Patient is having peritoneal signs or infectious symptoms. No signs of infection in his urine. I do not suspect pyelonephritis. Patient and verbalized agreement nursing of this plan. Lab Data Attestation: I reviewed the patient's lab results. Labs: Laboratory Results - last 24 hr 07/14/21 07/14/21 07/14/21 14:10 14:10 14:36 WBC 4.4 RBC 3.61 L Hgb 11.9 L Hct 34.8 L MCV 96.4 H MCH 33.0 H MCHC 34.2 RDW Std Deviation 51.2 H RDW Coeff of Arlin 14.3 Plt Count 69 L MPV 12.5 H Immature Gran % (Auto) 0.500 Neut % (Auto) 74.9 H Lymph % (Auto) 10.1 L Marion % (Auto) 12.6 H Eos % (Auto) 1.4 Baso % (Auto) 0.5 Absolute Neuts (auto) 3.3 Absolute Lymphs (auto) 0.44 L Nucleated RBC % 0 Differential Comment SCANNED Platelet Estimate MOD DEC Sodium 134 L Potassium 3.8 Chloride 96 L Carbon Dioxide 32.0 Anion Gap 6 BUN 36 H Creatinine 1.68 H Estim Creat Clear Calc 41.04 Est GFR (MDRD) Af Amer 52 L Est GFR (MDRD) Non-Af 43 L BUN/Creatinine Ratio 21.4 H Glucose 190 H Calcium 8.5 Urine Color Yellow Urine Clarity Clear Urine pH 7.0 Ur Specific [place] 1.010 Urine Protein 15 H Urine Glucose (UA) 50 H Urine Ketones Negative Urine Occult Blood Negative Urine Nitrite Negative Urine Bilirubin Negative Urine Urobilinogen 1 H Ur Leukocyte Esterase Negative Urine RBC 0 SEEN Urine WBC 0 SEEN Ur Squamous Epith Cells 0-5 SEEN Urine Bacteria 0 SEEN Urine Mucus 0 SEEN Radiography Diagnostic Testing: Clinical Impression(s) from Imaging Studies Abdomen/Pelvis CT 07/14/21 13:34 IMPRESSION: No renal or ureteral stone. Electronically Signed: Trevon Rodriguez MD at 15:11 EDT , Discharge Plan Triage Chief Complaint: Back ED Midlevel Provider: Scar Bravo ED Provider: Anyi Vazquez Dx/Rx/DC Orders Clinical Impression: Acute flank pain Instructions: Abdominal Pain, ED Flank Pain, Uncertain Cause Prescriptions: No Action furosemide 40 MG tablet 20 mg PO DAILY RF: 0 levothyroxine 137 MCG tablet 137 mcg PO DAILY RF: 0 metoprolol tartrate [Lopressor] 100 MG tablet 25 mg PO BID RF: 0 diphenoxylate-atropine [Lomotil] 1 EACH tablet 1 ea PO Q6H RF: 0 amlodipine 5 MG tablet 5 mg PO DAILY RF: 0 tamsulosin 0.4 MG capsule 0.4 mg PO BID RF: 0 gabapentin [Neurontin] 300 MG capsule 300 mg PO QHS RF: 0 dicyclomine 10 MG capsule 10 mg PO ACHS RF: 0 finasteride 5 MG tablet 5 mg PO DAILY RF: 0 insulin asp prt-insulin aspart [Novolog Mix 70-30 U-100 Insuln] 100 UNIT/ML solution 30 unit SQ DINNER RF: 0 duloxetine 20 MG capsule,delayed release(DR/EC) 20 mg PO QHS RF: 0 Creon 1 EACH capsule,delayed release(DR/EC) 3 cap PO TIDCM RF: 0 cyanocobalamin (vitamin B-12) 1,000 MCG tablet 1,000 mcg sublingual DAILY RF: 0 clopidogrel 75 MG tablet 75 mg PO DAILY RF: 0 rosuvastatin [Crestor] 5 MG tablet 5 mg PO MOTH RF: 0 cholecalciferol (vitamin D3) 50,000 UNIT capsule 50,000 unit PO TUTH RF: 0 cyanocobalamin (vitamin B-12) 1,000 MCG/ML solution 100 mcg IM Q7D RF: 0 Sandostatin LAR Depot 10 MG suspension,extended rel recon 10 mg IM QMONTH RF: 0 spironolactone 25 MG tablet 25 mg PO DAILY RF: 0 pantoprazole 20 MG tablet 20 mg PO BID RF: 0 oxycodone 5 MG tablet 5 mg PO Q8 PRN (Reason: Pain) RF: 0 insulin asp prt-insulin aspart [Novolog Mix 70-30 U-100 Insuln] 100 UNIT/ML solution 40 unit SQ BREAKFAST RF: 0 Melatonin 10 MG Tab.Subl 10 mg sublingual QHS PRN (Reason: Sleep) RF: 0 acetaminophen 500 MG tablet 500 mg PO Q4H PRN PRN (Reason: Pain) Qty: 20 RF: 0 lidocaine HCl 5 % Ointment 1 applic transdermal QHS RF: 0 colestipol 1 gram Tablet 1 g PO BID RF: 0 gabapentin 100 mg Tablet 200 mg PO DAILY RF: 0 loperamide 2 mg Capsule 2 mg PO Q6H RF: 0 nicotine (polacrilex) 2 mg Gum 2 mg PO Q2H PRN PRN (Reason: Smoking Cessation) RF: 0 ondansetron HCl 8 mg Tablet 8 mg PO Q8H PRN (Reason: Nausea) RF: 0 sildenafil [Viagra] 100 mg Tablet 100 mg PO DAILY PRN (Reason: Sexual Activity) RF: 0 sodium bicarbonate 650 mg Tablet 650 mg PO DAILY RF: 0 thiamine HCl (vitamin B1) 250 mg Tablet 1,850 mg PO DAILY RF: 0 Primary Care Provider: Analisa Nogueira Referrals: Analisa Nogueira MD [Primary Care Provider] - Activity Restrictions/Additional Instructions: Please follow-up closely with your PCP. Please return for any worsening symptoms. Print Language: Sami Disposition Disposition: Home, Self Care Discharge Date/Time: 07/14/21 15:44
[2021-07-14] MEDS: Morphine 4 MG/ML Syringe IV ×2 (14:03→15:30)
[2021-07-14] MEDS: Ondansetron 4 MG/2 ML Vial IV (14:03)
[2021-07-14 14:21] LABS: Absolute Lymphocyte Count 0.44 X10^3/uL (0.83-4.51); Absolute Neutrophil Count 3.3 X10^3/uL (2.0-7.7); Basophil# 0.02 X10^3/uL; Basophil% 0.5 % (0-1); Eosinophil# 0.06 X10^3/uL; Eosinophils% 1.4 % (0-5); Hematocrit 34.8 % (40-54); Hemoglobin 11.9 g/dL (13.0-16.5); Lymphocyte # 0.44 X10^3/ul (0.83-4.51); Lymphocyte % 10.1 % (19-41); Mean Corp Hgb Conc 34.2 g/dL (32-36); Mean Corpuscular Volume 96.4 fL (80-94); Mean Platelet Vol. 12.5 fl (6.2-12.0); Monocyte# 0.55 X10^3/uL; Monocyte% 12.6 % (0-10); NRBC Flagged by Analyzer 0 % (0-5); Neutrophil # 3.28 X10^3/uL (2.7-7.7); Neutrophil % 74.9 % (47-70); POSITIVE COUNT YES; POSITIVE DIFFERENTIAL YES; Platelet Count 69 K/mm3 (150-450); RBC Distribution Width CV 14.3 % (11.6-14.6); RBC Distribution Width SD 51.2 fl (35.1-43.9); Red Blood Count 3.61 M/mm3 (4.6-6.2); White Blood Count 4.4 K/mm3 (4.4-11.0)
[2021-07-14 14:26] LABS: Differential Indicated SCAN CRITERIA MET
[2021-07-14 14:30] LABS: Anion Gap 6 (5-15); BUN 36 mg/dL (7-18); BUN/Creat Ratio 21.4 RATIO (10-20); Calcium,Total 8.5 mg/dL (8.5-10.1); Chloride 96 mmol/L (98-107); Creatinine, Serum 1.68 mg/dL (0.70-1.30); EST Glomerular Filtration Rate 43 mL/min (>60); Est Glom Filt Rate - Afr Amer 52 mL/min (>60); Estimated Creatinine Clearance 41.04 ml/min; Glucose 190 mg/dL (74-106); Potassium 3.8 mmol/L (3.5-5.1); Sodium Level 134 mmol/L (136-145)
[2021-07-14 14:40] LABS: Bacteria 0 SEEN /hpf (None Seen); Mucous, Urine 0 SEEN /hpf (<or=2+); Red Blood Cells-Urine 0 SEEN /hpf (0-5); White Blood Cells 0 SEEN /hpf (0-5)
[2021-07-14 14:41] LABS: Color, Urine Yellow (Yellow); Glucose, Dipstick 50 mg/dl (Normal); Ketone-Dipstick Negative (Negative); Leukocyte Esterase-Dipstick Negative /ul (Negative); Nitrite-Dipstick Negative (Negative); Occult Blood-Urine Negative /ul (Negative); Protein-Dipstick 15 mg/dl (Negative); Urine Bilirubin Dipstick Negative (Negative); Urine Clarity Clear (Clear); Urine Urobilinogen 1 mg/dl (Normal)
[2021-07-14 14:45] LABS: Differential Comment SCANNED; Platelet Estimate MOD DEC (ADEQ)
[2021-07-14 14:53] LABS: Squamous Epithelial Cells - UA 0-5 SEEN /hpf (0-5)
[2021-07-14 15:29] VITALS: BP 136/68; RESP 18
== END 2021-07-14 15:44 | disposition home or self-care (01) ==
PROVIDERS: Nurse Practitioner; Emergency Provider Emergency Medicine; PCP Internal Medicine; Visit Provider Emergency Medicine
DX: R10.9 Unspecified abdominal pain (principal); G47.30 Sleep apnea, unspecified; I25.10 Atherosclerotic heart disease of native coronary artery without angina pectoris; Z95.5 Presence of coronary angioplasty implant and graft; Z87.891 Personal history of nicotine dependence
CPT/HCPCS: 74176; 80048; 81001; 85025; 96374; 96375; 96376; 99283; A4216; J2405

== ENCOUNTER 2021-08-06 12:51 | Emergency (ER) | payer MEDICARE, OTHER, SELFPAY ==
[2021-08-06 12:54] VITALS: BP 109/49; PULSE 75; RESP 11; TEMP 36.4; O2SAT 97; BMI 35.3
--- NOTE | 2021-08-06 13:03 | ED.RN ---
PT SNORING AND UNABLE TO RECALL INFORMATION. MD NOTIFIED
--- NOTE | 2021-08-06 13:21 | EX.ED.DYSGE1 ---
HPI <Dr. Marquise Miguel DO - Last Filed: 08/06/21 14:03> History of Present Illness Chief Complaint: Hypoglycemia Informant: family and EMS Narrative Narrative: 71-year-old male presenting to the emergency department with hypoglycemia. Patient was unable to be woken by his daughter today. She notes that he would have received TPN from 10 PM to 10 AM. He does eat some food but most of his nutrition is through TPN. DNR Comfort Care. He was hypoglycemic for EMS and EMS administered D10 normal saline of 100 cc. Patient woke up but is now starting to become lethargic. Patient takes still. [facility] <Dr. Marquise Miguel DO - Last Filed: 08/06/21 14:03> [facility] Medical History BiPAP (biphasic positive airway pressure) dependence Cirrhosis CKD (chronic kidney disease) stage 3, GFR 30-59 ml/min Coronary artery disease Diabetes Difficulty swallowing Hypertension Hypothyroidism Ileus Kidney disease Sleep apnea Home Medications amlodipine 5 mg tablet 5 mg PO DAILY BP 08/22/16 [History Last Taken 07/03/20 08:00] dicyclomine 10 mg capsule 10 mg PO ACHS bowels 08/22/16 [History Last Taken 07/03/20 08:00] diphenoxylate-atropine 2.5 mg-0.025 mg tablet (Lomotil) 1 ea PO Q6H diarrhea 08/22/16 [History Last Taken 07/03/20 08:00] duloxetine 20 mg capsule,delayed release 20 mg PO QHS Depression 08/22/16 [History Last Taken 07/03/20 21:00] finasteride 5 mg tablet 5 mg PO DAILY prostate 08/22/16 [History Last Taken 07/03/20 08:00] furosemide 40 mg tablet 20 mg PO DAILY water pill 08/22/16 [History Last Taken 07/03/20 08:00] gabapentin 300 mg capsule (Neurontin) 300 mg PO QHS Neuropathy 08/22/16 [History Last Taken 07/03/20 21:00] insulin aspar prt-insulin aspart 100 unit/mL (70-30) subcutaneous soln (Novolog Mix 70-30 U-100 Insuln) 30 unit SQ DINNER diabetes 08/22/16 [History Last Taken 07/03/20 17:00] levothyroxine 137 mcg tablet 137 mcg PO DAILY thyroid 08/22/16 [History Last Taken 07/03/20 06:00] zybevc-uogdbsgi-mxetyvl 24,000-76,000-120,000 unit capsule,delayed rel (Creon) 3 cap PO TIDCM digestive enzyme 08/22/16 [History Last Taken 08/21/16] metoprolol tartrate 100 mg tablet (Lopressor) 25 mg PO BID blood pressure 08/22/16 [History Last Taken 07/03/20 08:00] tamsulosin 0.4 mg capsule 0.4 mg PO BID prostate 08/22/16 [History Last Taken 07/03/20 17:00] cholecalciferol (vitamin D3) 1,250 mcg (50,000 unit) capsule 50,000 unit PO TUTH Supplement 10/25/16 [History Last Taken 07/03/20 08:00] clopidogrel 75 mg tablet 75 mg PO DAILY Blood Thinner 10/25/16 [History Last Taken 07/03/20 08:00] cyanocobalamin (vitamin B-12) 1,000 mcg tablet 1,000 mcg sublingual DAILY vitamin 10/25/16 [History Last Taken Unknown] rosuvastatin 5 mg tablet (Crestor) 5 mg PO MOTH Cholesterol 10/25/16 [History Last Taken 07/03/20 08:00] cyanocobalamin (vitamin B-12) 1,000 mcg/mL injection solution 100 mcg IM Q7D vitamin 11/19/16 [History Last Taken 06/28/20 08:00] octreotide,microspheres 10 mg intramuscular susp, extended release (Sandostatin LAR Depot) 10 mg IM QMONTH bowels 11/19/16 [History Last Taken 06/20/20] Melatonin 10 mg sublingual QHS PRN Sleep 04/29/18 [History Last Taken 07/03/20 21:00] insulin aspar prt-insulin aspart 100 unit/mL (70-30) subcutaneous soln (Novolog Mix 70-30 U-100 Insuln) 40 unit SQ BREAKFAST Diabetes 04/29/18 [History Last Taken 07/03/20 08:00] oxycodone 5 mg tablet 5 mg PO Q8 PRN Pain 04/29/18 [History Last Taken 07/03/20 21:00] pantoprazole 20 mg tablet,delayed release 20 mg PO BID GERD 04/29/18 [History Last Taken 07/03/20 21:00] spironolactone 25 mg tablet 25 mg PO DAILY diuretic 04/29/18 [History Last Taken 07/03/20 08:00] acetaminophen 500 mg tablet 500 mg PO Q4H PRN PRN Pain ##20 05/06/18 [Rx Last Taken Unknown] colestipol 1 gram tablet 1 g PO BID cholesterol 07/04/20 [History Last Taken 07/03/20 21:00] gabapentin 100 mg tablet 200 mg PO DAILY Neuropathy 07/04/20 [History Last Taken 07/03/20 08:00] lidocaine HCl 5 % topical ointment 1 applic transdermal QHS Pain 07/04/20 [History Last Taken 07/03/20 08:00] loperamide 2 mg capsule 2 mg PO Q6H Diarrhea 07/04/20 [History Last Taken 07/03/20 17:00] nicotine (polacrilex) 2 mg gum 2 mg PO Q2H PRN PRN Smoking Cessation 07/04/20 [History Last Taken 07/03/20] ondansetron HCl 8 mg tablet 8 mg PO Q8H PRN Nausea 07/04/20 [History Last Taken 07/03/20] sildenafil 100 mg tablet (Viagra) 100 mg PO DAILY PRN Sexual Activity 07/04/20 [History Last Taken Unknown] sodium bicarbonate 650 mg tablet 650 mg PO DAILY supplement 07/04/20 [History Last Taken 07/03/20 21:00] thiamine HCl (vitamin B1) 250 mg tablet 1,850 mg PO DAILY vitamin 07/04/20 [History Last Taken 07/03/20 21:00] albuterol sulfate 90 mcg/actuation aerosol inhaler inh inhalation 08/06/21 [History Last Taken Unknown] carvedilol 6.25 mg tablet tab 08/06/21 [History Last Taken Unknown] famotidine 20 mg tablet tab 08/06/21 [History Last Taken Unknown] morphine 15 mg tablet,extended release tab PO 08/06/21 [History Last Taken Unknown] potassium chloride 10 mEq tablet,extended release tab PO 08/06/21 [History Last Taken Unknown] Allergy/AdvReac Type Severity Reaction Status Date / Time procaine HCl [From Novocain] Allergy Other Verified 07/14/21 12:51 Paeslcy-PLF-EeR Reductase Allergy Other Verified 07/14/21 12:51 Inhibitor [Wmugcvi-Ymk-Gpe Reductase Inhibitor] Family History Other Cancer Surgical History History of appendectomy History of cholecystectomy History of coronary artery stent placement Social History household members: spouse housing: house current occupational status: retired Smoking Status: Former smoker substance use type: does not use ROS <Dr. Marquise Miguel DO - Last Filed: 08/06/21 14:03> ROS ED Constitutional Constitutional ED: Denies chills or weight loss Eyes Eyes: Denies change in vision or diplopia ENT ENT ED: Denies ear pain, rhinorrhea or sore throat Cardiovascular Cardiovascular: Denies chest pain, orthopnea, palpitations or racing heartbeat Respiratory/Chest Respiratory/Chest: Denies cough, dyspnea or orthopnea Gastrointestinal Gastrointestinal: Denies abdominal pain, diarrhea, nausea or vomiting Genitourinary Genitourinary ED: Denies dysuria, hematuria or urinary frequency Musculoskeletal Musculoskeletal: Denies arthralgias or myalgias Integumentary Denies abscess or rash Neurologic Neurologic: Denies headache(s) or weakness Psychiatric Psychiatric: Denies anxiety, depression, suicidal ideation or suicidal thoughts Endocrine Endocrinology: Denies polydipsia, polyphagia or polyuria Allergic/Immunologic Allergic/Immunologic ED: Denies mouth swelling, tongue swelling or urticaria EXAM <Dr. Marquise Miguel DO - Last Filed: 08/06/21 14:03> Physical Exam Const Vital Signs: 08/06/21 12:54 08/06/21 13:00 08/06/21 15:43 Temperature 97.5 F L Temperature Source Oral Pulse Rate 75 72 Respiratory Rate 11 L 16 Respiratory Pattern Normal Blood Pressure 109/49 L 113/63 Blood Pressure Mean 69 79 Pulse Ox 97 97 Oxygen Delivery Method Room Air Room Air Positive well nourished, well developed and obese General Appearance ED: well developed Nutritional Appearance: obese HEENT Reports normocephalic, head/scalp atraumatic and moist mucous membranes Eyes PERRL and EOMs intact bilaterally Neck no lymphadenopathy, supple and no JVD Resp normal respiratory effort and clear to auscultation bilaterally Cardio regular rate, regular rhythm and no murmurs GI normal to inspection, nondistended, normoactive bowel sounds and non-tender Palpation: soft Back/Spine no CVA tenderness and normal ROM Extremity normal to inspection General Extremety ED: Negative for edema General Extremity: Negative for edema Neuro oriented x3 and CN's II-XII intact bilaterally Sensorium / Orientation: alert Motor Exam: strength 5/5 throughout Psych mental status grossly normal Mood & Affect: Negative for depressed or tearful Skin no rashes or lesions noted and no wounds <Oscar Mao MD - Last Filed: 08/06/21 16:44> Physical Exam Const Vital Signs: 08/06/21 12:54 08/06/21 13:00 08/06/21 15:43 Temperature 97.5 F L Temperature Source Oral Pulse Rate 75 72 Respiratory Rate 11 L 16 Respiratory Pattern Normal Blood Pressure 109/49 L 113/63 Blood Pressure Mean 69 79 Pulse Ox 97 97 Oxygen Delivery Method Room Air Room Air MDM <Dr. Marquise Miguel DO - Last Filed: 08/06/21 14:03> [facility] MDM Narrative Medical decision making narrative: Patient had his blood sugar checked hourly. We gave a infusion of D10 due to the national shortage of D50. He was given food and we have observed. We will check several hours worth of blood sugars to ensure stability if this is achieved we will discharge him home. Lab Data Attestation: I reviewed the patient's lab results. Labs: Laboratory Results - last 24 hr 08/06/21 08/06/21 08/06/21 12:58 13:18 13:25 WBC 5.2 RBC 3.38 L Hgb 10.8 L Hct 32.3 L MCV 95.6 H MCH 32.0 MCHC 33.4 RDW Std Deviation 49.3 H RDW Coeff of Arlin 14.0 Plt Count 57 L MPV 13.7 H Immature Gran % (Auto) 0.400 Neut % (Auto) 80.3 H Lymph % (Auto) 5.8 L [place] % (Auto) 12.7 H Eos % (Auto) 0.4 Baso % (Auto) 0.4 Absolute Neuts (auto) 4.2 Absolute Lymphs (auto) 0.30 L Nucleated RBC % 0 Differential Comment COMMENT Platelet Estimate MOD DEC Sodium Potassium Chloride Carbon Dioxide Anion Gap BUN Creatinine Estim Creat Clear Calc Est GFR (MDRD) Af Amer Est GFR (MDRD) Non-Af BUN/Creatinine Ratio Glucose Calcium Total Bilirubin AST ALT Alkaline Phosphatase Total Protein Albumin Globulin Albumin/Globulin Ratio Urine Color Urine Clarity Urine pH Ur Specific [place] Urine Protein Urine Glucose (UA) Urine Ketones Urine Occult Blood Urine Nitrite Urine Bilirubin Urine Urobilinogen Ur Leukocyte Esterase Urine RBC Urine WBC Ur Squamous Epith Cells Urine Bacteria Urine Mucus POC Glucose 93 79 08/06/21 08/06/21 08/06/21 13:25 13:46 14:17 WBC RBC Hgb Hct MCV MCH MCHC RDW Std Deviation RDW Coeff of Arlin Plt Count MPV Immature Gran % (Auto) Neut % (Auto) Lymph % (Auto) [place] % (Auto) Eos % (Auto) Baso % (Auto) Absolute Neuts (auto) Absolute Lymphs (auto) Nucleated RBC % Differential Comment Platelet Estimate Sodium 138 Potassium 4.0 Chloride 101 Carbon Dioxide 31.0 Anion Gap 6 BUN 44 H Creatinine 1.82 H Estim Creat Clear Calc 37.88 Est GFR (MDRD) Af Amer 47 L Est GFR (MDRD) Non-Af 39 L BUN/Creatinine Ratio 24.2 H Glucose 75 Calcium 9.0 Total Bilirubin 0.50 AST 39 H ALT 35 Alkaline Phosphatase 138 H Total Protein 6.3 L Albumin 2.6 L Globulin 3.7 Albumin/Globulin Ratio 0.7 L Urine Color Urine Clarity Urine pH Ur Specific [place] Urine Protein Urine Glucose (UA) Urine Ketones Urine Occult Blood Urine Nitrite Urine Bilirubin Urine Urobilinogen Ur Leukocyte Esterase Urine RBC Urine WBC Ur Squamous Epith Cells Urine Bacteria Urine Mucus POC Glucose 172 H 146 H 08/06/21 14:45 WBC RBC Hgb Hct MCV MCH MCHC RDW Std Deviation RDW Coeff of Arlin Plt Count MPV Immature Gran % (Auto) Neut % (Auto) Lymph % (Auto) [place] % (Auto) Eos % (Auto) Baso % (Auto) Absolute Neuts (auto) Absolute Lymphs (auto) Nucleated RBC % Differential Comment Platelet Estimate Sodium Potassium Chloride Carbon Dioxide Anion Gap BUN Creatinine Estim Creat Clear Calc Est GFR (MDRD) Af Amer Est GFR (MDRD) Non-Af BUN/Creatinine Ratio Glucose Calcium Total Bilirubin AST ALT Alkaline Phosphatase Total Protein Albumin Globulin Albumin/Globulin Ratio Urine Color Yellow Urine Clarity Clear Urine pH 5.0 Ur Specific [place] 1.025 Urine Protein Negative Urine Glucose (UA) Normal Urine Ketones Negative Urine Occult Blood Negative Urine Nitrite Negative Urine Bilirubin Negative Urine Urobilinogen Normal Ur Leukocyte Esterase Negative Urine RBC 0 SEEN Urine WBC 0 SEEN Ur Squamous Epith Cells 0-5 SEEN Urine Bacteria 1+ Urine Mucus 0 SEEN POC Glucose ABG Data ABG results: ABG 08/06/21 15:25 Specimen Type ART Sample Site R Radial pH 7.46 H Bicarbonate Actual 26.9 H Total CO2 28 Base Excess 3 H O2 Saturation 99 ABG pCO2 38.1 ABG pO2 139 H O2 Delivery Device Cannula Radiography Diagnostic Testing: Clinical Impression(s) from Imaging Studies Brain CT 08/06/21 14:27 IMPRESSION: Chronic involutional changes of the brain. Electronically Signed: Trevon Rodriguez MD at 14:45 EDT Reading Location ID and State: [id number] / [employer] , Service support , Chest X-Ray 08/06/21 14:58 IMPRESSION: No change from 05/04/2021. Electronically Signed: Trevon Rodriguez MD at 15:44 EDT Reading Location ID and State: [id number] / [employer] , Service support , <Oscar Mao MD - Last Filed: 08/06/21 16:44> [facility] MDM Narrative Medical decision making narrative: Patient had his blood sugar checked hourly. We gave a infusion of D10 due to the national shortage of D50. He was given food and we have observed. We will check several hours worth of blood sugars to ensure stability if this is achieved we will discharge him home. Dr. Mao: Patient endorsed to me by Dr. Miguel to check the CT, UA, and chest x-ray on this patient with excessive daytime sleepiness/mental status change. He does have past medical history of obstructive sleep apnea and is resting comfortably and had to be placed on 9 L of high flow oxygen as he does wear BiPAP at night when he is sleeping. His urinalysis shows no evidence of infection. CT of the brain shows no acute process, no hemorrhage. Chest x-ray interpreted by myself shows no evidence of pneumonia. Given his requirement for oxygen and mental status change, I obtained an ABG which shows a normal pH of 7.4 PCO2 slightly elevated at 38 and a PO2 of 139. I am unsure as to the cause of his mental status change. His most recent blood sugars have been elevated and do not indicate hypoglycemia. The prior physician did have a discussion with the family, and the patient is not currently enrolled in palliative care or hospice. He signed his DNR comfort care only. I had a lengthy discussion with the patient's daughter. [facility]. The patient is now awake, alert, and oriented. He does not want to be admitted to the hospital, nor transferred to hospice ICU. He would like home health care to begin immediately. There is a [facility] DNR comfort care only order signed by Dr. Nogueira. I feel the patient has a capacity to make this decision to be discharged under his DO NOT RESUSCITATE comfort care only order. His daughter and the patient's are reportedly comfortable with him being discharged with hospice home care, with the patient would like. I discussed the patient with [place] with [facility]. Instructions were given to discharge the patient home, and have social work send an ED summary to [facility] and they will meet the patient at home when he gets there for further evaluation and treatment. Disposition is discharged in stable condition. Lab Data Labs: Laboratory Results - last 24 hr 08/06/21 08/06/21 08/06/21 12:58 13:18 13:25 WBC 5.2 RBC 3.38 L Hgb 10.8 L Hct 32.3 L MCV 95.6 H MCH 32.0 MCHC 33.4 RDW Std Deviation 49.3 H RDW Coeff of Arlin 14.0 Plt Count 57 L MPV 13.7 H Immature Gran % (Auto) 0.400 Neut % (Auto) 80.3 H Lymph % (Auto) 5.8 L [place] % (Auto) 12.7 H Eos % (Auto) 0.4 Baso % (Auto) 0.4 Absolute Neuts (auto) 4.2 Absolute Lymphs (auto) 0.30 L Nucleated RBC % 0 Differential Comment COMMENT Platelet Estimate MOD DEC Sodium Potassium Chloride Carbon Dioxide Anion Gap BUN Creatinine Estim Creat Clear Calc Est GFR (MDRD) Af Amer Est GFR (MDRD) Non-Af BUN/Creatinine Ratio Glucose Calcium Total Bilirubin AST ALT Alkaline Phosphatase Total Protein Albumin Globulin Albumin/Globulin Ratio Urine Color Urine Clarity Urine pH Ur Specific [place] Urine Protein Urine Glucose (UA) Urine Ketones Urine Occult Blood Urine Nitrite Urine Bilirubin Urine Urobilinogen Ur Leukocyte Esterase Urine RBC Urine WBC Ur Squamous Epith Cells Urine Bacteria Urine Mucus POC Glucose 93 79 08/06/21 08/06/21 08/06/21 13:25 13:46 14:17 WBC RBC Hgb Hct MCV MCH MCHC RDW Std Deviation RDW Coeff of Arlin Plt Count MPV Immature Gran % (Auto) Neut % (Auto) Lymph % (Auto) [place] % (Auto) Eos % (Auto) Baso % (Auto) Absolute Neuts (auto) Absolute Lymphs (auto) Nucleated RBC % Differential Comment Platelet Estimate Sodium 138 Potassium 4.0 Chloride 101 Carbon Dioxide 31.0 Anion Gap 6 BUN 44 H Creatinine 1.82 H Estim Creat Clear Calc 37.88 Est GFR (MDRD) Af Amer 47 L Est GFR (MDRD) Non-Af 39 L BUN/Creatinine Ratio 24.2 H Glucose 75 Calcium 9.0 Total Bilirubin 0.50 AST 39 H ALT 35 Alkaline Phosphatase 138 H Total Protein 6.3 L Albumin 2.6 L Globulin 3.7 Albumin/Globulin Ratio 0.7 L Urine Color Urine Clarity Urine pH Ur Specific [place] Urine Protein Urine Glucose (UA) Urine Ketones Urine Occult Blood Urine Nitrite Urine Bilirubin Urine Urobilinogen Ur Leukocyte Esterase Urine RBC Urine WBC Ur Squamous Epith Cells Urine Bacteria Urine Mucus POC Glucose 172 H 146 H 08/06/21 14:45 WBC RBC Hgb Hct MCV MCH MCHC RDW Std Deviation RDW Coeff of Arlin Plt Count MPV Immature Gran % (Auto) Neut % (Auto) Lymph % (Auto) [place] % (Auto) Eos % (Auto) Baso % (Auto) Absolute Neuts (auto) Absolute Lymphs (auto) Nucleated RBC % Differential Comment Platelet Estimate Sodium Potassium Chloride Carbon Dioxide Anion Gap BUN Creatinine Estim Creat Clear Calc Est GFR (MDRD) Af Amer Est GFR (MDRD) Non-Af BUN/Creatinine Ratio Glucose Calcium Total Bilirubin AST ALT Alkaline Phosphatase Total Protein Albumin Globulin Albumin/Globulin Ratio Urine Color Yellow Urine Clarity Clear Urine pH 5.0 Ur Specific [place] 1.025 Urine Protein Negative Urine Glucose (UA) Normal Urine Ketones Negative Urine Occult Blood Negative Urine Nitrite Negative Urine Bilirubin Negative Urine Urobilinogen Normal Ur Leukocyte Esterase Negative Urine RBC 0 SEEN Urine WBC 0 SEEN Ur Squamous Epith Cells 0-5 SEEN Urine Bacteria 1+ Urine Mucus 0 SEEN POC Glucose ABG Data ABG results: ABG 08/06/21 15:25 Specimen Type ART Sample Site R Radial pH 7.46 H Bicarbonate Actual 26.9 H Total CO2 28 Base Excess 3 H O2 Saturation 99 ABG pCO2 38.1 ABG pO2 139 H O2 Delivery Device Cannula Radiography Diagnostic Testing: Clinical Impression(s) from Imaging Studies Brain CT 08/06/21 14:27 IMPRESSION: Chronic involutional changes of the brain. Electronically Signed: Trevon Rodriguez MD at 14:45 EDT , Chest X-Ray 08/06/21 14:58 IMPRESSION: No change from 05/04/2021. Electronically Signed: Trevon Rodriguez MD at 15:44 EDT , Discharge Plan Triage Chief Complaint: Hypoglycemia ED Provider: Marquise Miguel Dx/Rx/DC Orders Clinical Impression: Diabetic hypoglycemia, Hypersomnia, Altered mental status, DNR no code (do not resuscitate) Instructions: ED Diabetic Insulin Reaction Prescriptions: No Action furosemide 40 MG tablet 20 mg PO DAILY levothyroxine 137 MCG tablet 137 mcg PO DAILY metoprolol tartrate [Lopressor] 100 MG tablet 25 mg PO BID Rx Instructions: dystolic 100 diphenoxylate-atropine [Lomotil] 1 EACH tablet 1 ea PO Q6H amlodipine 5 MG tablet 5 mg PO DAILY tamsulosin 0.4 MG capsule 0.4 mg PO BID gabapentin [Neurontin] 300 MG capsule 300 mg PO QHS dicyclomine 10 MG capsule 10 mg PO ACHS finasteride 5 MG tablet 5 mg PO DAILY insulin asp prt-insulin aspart [Novolog Mix 70-30 U-100 Insuln] 100 UNIT/ML solution 30 unit SQ DINNER duloxetine 20 MG capsule,delayed release(DR/EC) 20 mg PO QHS Creon 1 EACH capsule,delayed release(DR/EC) 3 cap PO TIDCM Label Comments: cyanocobalamin (vitamin B-12) 1,000 MCG tablet 1,000 mcg sublingual DAILY clopidogrel 75 MG tablet 75 mg PO DAILY Rx Instructions: will stop 5 days prior to surgery rosuvastatin [Crestor] 5 MG tablet 5 mg PO MOTH cholecalciferol (vitamin D3) 50,000 UNIT capsule 50,000 unit PO TUTH Label Comments: TAKEN 2X PER WEEK cyanocobalamin (vitamin B-12) 1,000 MCG/ML solution 100 mcg IM Q7D Sandostatin LAR Depot 10 MG suspension,extended rel recon 10 mg IM QMONTH spironolactone 25 MG tablet 25 mg PO DAILY pantoprazole 20 MG tablet 20 mg PO BID oxycodone 5 MG tablet 5 mg PO Q8 PRN (Reason: Pain) insulin asp prt-insulin aspart [Novolog Mix 70-30 U-100 Insuln] 100 UNIT/ML solution 40 unit SQ BREAKFAST Melatonin 10 MG Tab.Subl 10 mg sublingual QHS PRN (Reason: Sleep) acetaminophen 500 MG tablet 500 mg PO Q4H PRN PRN (Reason: Pain) Qty: 20 0RF lidocaine HCl 5 % Ointment 1 applic transdermal QHS Rx Instructions: On 12 hours and off 12 hours colestipol 1 gram Tablet 1 g PO BID gabapentin 100 mg Tablet 200 mg PO DAILY loperamide 2 mg Capsule 2 mg PO Q6H nicotine (polacrilex) 2 mg Gum 2 mg PO Q2H PRN PRN (Reason: Smoking Cessation) ondansetron HCl 8 mg Tablet 8 mg PO Q8H PRN (Reason: Nausea) sildenafil [Viagra] 100 mg Tablet 100 mg PO DAILY PRN (Reason: Sexual Activity) sodium bicarbonate 650 mg Tablet 650 mg PO DAILY thiamine HCl (vitamin B1) 250 mg Tablet 1,850 mg PO DAILY carvedilol 6.25 mg tablet Label Comments: TAKE 1 TABLET BY MOUTH TWICE DAILY WITH MEALS potassium chloride 10 mEq tablet extended release PO Label Comments: PLEASE TAKE 1 TABLET ON THE DAYS YOU TAKE LASIX. (EVERY OTHER DAY). famotidine 20 mg tablet morphine 15 mg tablet extended release PO Label Comments: TAKE 1 TABLET BY MOUTH TWICE DAILY SCHEDULED albuterol sulfate 90 mcg/actuation HFA aerosol inhaler INHALATION Primary Care Provider: Analisa Nogueira Referrals: Analisa Nogueira MD [Primary Care Provider] - As Needed Disposition Disposition: Home, Self Care
[2021-08-06] MEDS: Dextrose 10%-Water 250 ML IV.SOLN. IV (13:26)
[2021-08-06 13:31] LABS: Bedside Glucose 93 mg/dL (74-106)
[2021-08-06 13:31] LABS: Bedside Glucose 79 mg/dL (74-106)
[2021-08-06 13:40] LABS: Absolute Neutrophil Count 4.2 X10^3/uL (2.0-7.7); Basophil# 0.02 X10^3/uL; Basophil% 0.4 % (0-1); Eosinophil# 0.02 X10^3/uL; Eosinophils% 0.4 % (0-5); Hematocrit 32.3 % (40-54); Hemoglobin 10.8 g/dL (13.0-16.5); Lymphocyte % 5.8 % (19-41); Mean Corp Hgb Conc 33.4 g/dL (32-36); Mean Corpuscular Volume 95.6 fL (80-94); Mean Platelet Vol. 13.7 fl (6.2-12.0); Monocyte# 0.66 X10^3/uL; Monocyte% 12.7 % (0-10); NRBC Flagged by Analyzer 0 % (0-5); Neutrophil # 4.16 X10^3/uL (2.7-7.7); Neutrophil % 80.3 % (47-70); POSITIVE COUNT YES; POSITIVE DIFFERENTIAL YES; Platelet Count 57 K/mm3 (150-450); RBC Distribution Width SD 49.3 fl (35.1-43.9); Red Blood Count 3.38 M/mm3 (4.6-6.2); White Blood Count 5.2 K/mm3 (4.4-11.0)
[2021-08-06 13:50] LABS: Bedside Glucose 172 mg/dL (74-106)
[2021-08-06 13:52] LABS: ALB/GLOB Ratio 0.7 RATIO (0.9-2.4); AST(SGOT) 39 U/L (15-37); Alanine Aminotransfer ALT/SGPT 35 U/L (16-61); Albumin, Serum 2.6 g/dL (3.2-5.0); Alkaline Phosphatase 138 U/L (45-117); Anion Gap 6 (5-15); BUN 44 mg/dL (7-18); BUN/Creat Ratio 24.2 RATIO (10-20); Chloride 101 mmol/L (98-107); Creatinine, Serum 1.82 mg/dL (0.70-1.30); EST Glomerular Filtration Rate 39 mL/min (>60); Est Glom Filt Rate - Afr Amer 47 mL/min (>60); Estimated Creatinine Clearance 37.88 ml/min; Globulin 3.7 g/dL (2.2-4.2); Glucose 75 mg/dL (74-106); Protein, Total 6.3 g/dL (6.4-8.2); Sodium Level 138 mmol/L (136-145)
--- NOTE | 2021-08-06 14:19 | ED.RN ---
ATTEMPTED TO WAKE PT FOR ORAL INTAKE, PT UNABLE TO WAKE FULLY
[2021-08-06 14:21] LABS: Bedside Glucose 146 mg/dL (74-106)
[2021-08-06 14:23] LABS: Differential Indicated SCAN CRITERIA MET
--- NOTE | 2021-08-06 14:27 | CT_ITS ---
STUDY: CT BRAIN WITHOUT CONTRAST REASON FOR EXAM: Male, 71 years old. ams RADIATION DOSAGE (If Supplied By Facility): CTDIvol = ( 44.99 ) mGy, DLP = ( 829.85 ) mGycm TECHNIQUE: Transaxial CT imaging of the brain was performed without administration of intravenous contrast material. Individualized dose optimization techniques were used for this CT. COMPARISON: No relevant priors. FINDINGS: Normal soft tissue structures. Normal calvarium. There is mild cerebral atrophy with widening of the extra-axial spaces and ventricular dilatation. There are areas of decreased attenuation within the white matter tracts of the supratentorial brain, consistent with microvascular disease changes. There are small punctate calcifications of the basal ganglia which are seen in the aging brain as a normal variant. Normal brainstem. Normal cerebellum. There is no intracranial hemorrhage. There are no findings of an acute ischemic infarction. Normal visualized paranasal sinuses. CT/Brain/Head without Contrast IMPRESSION: Chronic involutional changes of the brain. Electronically Signed: Trevon Rodriguez MD at 14:45 EDT ,
[2021-08-06 14:36] LABS: Platelet Estimate MOD DEC (ADEQ)
[2021-08-06 14:51] LABS: Mucous, Urine 0 SEEN /hpf (<or=2+); Red Blood Cells-Urine 0 SEEN /hpf (0-5); White Blood Cells 0 SEEN /hpf (0-5)
[2021-08-06 14:58] LABS: Color, Urine Yellow (Yellow); Glucose, Dipstick Normal (Normal); Ketone-Dipstick Negative (Negative); Leukocyte Esterase-Dipstick Negative /ul (Negative); Nitrite-Dipstick Negative (Negative); Occult Blood-Urine Negative /ul (Negative); Protein-Dipstick Negative (Negative); Specific Gravity, Urine 1.025 (1.002-1.030); Urine Bilirubin Dipstick Negative (Negative); Urine Urobilinogen Normal (Normal)
--- NOTE | 2021-08-06 14:58 | RAD_ITS ---
STUDY: X-RAY CHEST REASON FOR EXAM: Male, 71 years old. ams TECHNIQUE: Single AP portable view of the chest. COMPARISON: 05/04/2021 FINDINGS: Tunneled right internal jugular catheter which is unchanged. The lungs are clear and expanded. There is no demonstrated pleural abnormality. Normal size heart. Normal mediastinum and [place]. Normal visualized pulmonary arteries. Normal visualized aortic arch and descending thoracic aorta. Normal visualized thoracic spine. Normal visualized ribs, clavicles, and shoulders. There is no demonstrated abnormality of the visualized soft tissue structures of the upper abdomen. RAD/Chest 1 View (Portable) IMPRESSION: No change from 05/04/2021. Electronically Signed: Trevon Rodriguez MD at 15:44 EDT ,
[2021-08-06 15:02] LABS: Urine Clarity Clear (Clear)
[2021-08-06 15:17] LABS: Bacteria 1+ /hpf (None Seen); Squamous Epithelial Cells - UA 0-5 SEEN /hpf (0-5)
[2021-08-06 15:31] LABS: Base Excess 3 mmol/L (-2 to +2); Bicarbonate 26.9 mmol/L (22-26); Blood Gas Specimen Type ART; O2 Delivery Device Cannula; PO2 139 mmHG (75-100); SITE R Radial; SO2 99 % (95-99); Total Carbon Dioxide 28 mmol/L; pCO2 38.1 mmHg (35-45); pH 7.46 (7.35-7.45)
[2021-08-06 15:43] VITALS: BP 113/63; PULSE 72; RESP 16; O2SAT 97
[2021-08-06] MEDS: Alteplase 2 MG/2 ML Vial IV (16:48)
[2021-08-06 16:51] VITALS: BP 126/62; PULSE 71; O2SAT 100
--- NOTE | 2021-08-06 16:55 | CM.ED ---
Social Work Note SW updated by MD Mao that pt's family wants to take pt home with Hospice. MD Mao states that Hospice is requesting ED Summary to be faxed to them. SW faxed requested clinicals to [facility]. Mignon Yarbrough [employer]
[2021-08-06 23:21] LABS: Magnesium 1.3 mg/dL (1.6-2.6); Phosphorus 5.3 mg/dL (2.5-4.9)
== END 2021-08-06 17:42 | disposition home or self-care (01) ==
PROVIDERS: Emergency Medicine; Emergency Provider Emergency Medicine; PCP Internal Medicine; Visit Provider Emergency Medicine
DX: E11.649 Type 2 diabetes mellitus with hypoglycemia without coma (principal); E11.22 Type 2 diabetes mellitus with diabetic chronic kidney disease; Z79.4 Long term (current) use of insulin; N18.30 Chronic kidney disease, stage 3 unspecified; G47.10 Hypersomnia, unspecified; R41.82 Altered mental status, unspecified; I12.9 Hypertensive chronic kidney disease with stage 1 through stage 4 chronic kidney disease, or unspecified chronic kidney disease; I25.10 Atherosclerotic heart disease of native coronary artery without angina pectoris; G47.30 Sleep apnea, unspecified; E66.9 Obesity, unspecified; E03.9 Hypothyroidism, unspecified; Z87.891 Personal history of nicotine dependence; Z79.899 Other long term (current) drug therapy; Z95.5 Presence of coronary angioplasty implant and graft; Z66 Do not resuscitate
CPT/HCPCS: 36600; 70450; 71045; 80053; 81001; 82803; 82962; 83735; 84100; 85025; 96374; 99285; J2997; A4216

== ENCOUNTER → 2021-09-11 | Outpatient (CLI) | payer MEDICARE, OTHER, SELFPAY ==
[2021-09-11 14:45] LABS: Hematocrit 29.9 % (40-54); Hemoglobin 9.9 g/dL (13.0-16.5); Mean Corp Hgb Conc 33.1 g/dL (32-36); Mean Corpuscular Hgb 31.4 pg (27.0-32.0); Mean Corpuscular Volume 94.9 fL (80-94); Mean Platelet Vol. 14.2 fl (6.2-12.0); POSITIVE COUNT YES; Platelet Count 55 K/mm3 (150-450); RBC Distribution Width CV 15.1 % (11.6-14.6); RBC Distribution Width SD 52.4 fl (35.1-43.9); Red Blood Count 3.15 M/mm3 (4.6-6.2); White Blood Count 2.6 K/mm3 (4.4-11.0)
[2021-09-11 14:47] LABS: Scan Indicated on CBC? Y/N NO
[2021-09-11 15:31] LABS: Anion Gap 4 (5-15); BUN 42 mg/dL (7-18); BUN/Creat Ratio 23.2 RATIO (10-20); Calcium,Total 8.8 mg/dL (8.5-10.1); Chloride 105 mmol/L (98-107); Creatinine, Serum 1.81 mg/dL (0.70-1.30); EST Glomerular Filtration Rate 39 mL/min (>60); Est Glom Filt Rate - Afr Amer 48 mL/min (>60); Glucose 176 mg/dL (74-106); Magnesium 2.2 mg/dL (1.6-2.6); Phosphorus 2.8 mg/dL (2.5-4.9); Potassium 4.7 mmol/L (3.5-5.1); Sodium Level 136 mmol/L (136-145)
== END | disposition home or self-care (01) ==
LOC: LABSPEC 14:34
PROVIDERS: PCP Internal Medicine; Referring Provider Family Medicine Hospice and Palliative Medicine; Visit Provider Family Medicine Hospice and Palliative Medicine
DX: K50.90 Crohn's disease, unspecified, without complications (principal)
CPT/HCPCS: 80048; 83735; 84100; 85027